=== PATIENT | male | born 1955 | race Caucasian/White ===

== ENCOUNTER 2017-12-03 20:33 | Emergency (ER) | payer MEDICARE ==
[2017-12-03 20:42] VITALS: BP 164/76; PULSE 58; RESP 16; TEMP 97.4
[2017-12-03] MEDS ORDERED: LIDOCAINE/EPINEPHR/TETRACAINE 5 ML BOTTLE TOPICAL ONE (20:44)
[2017-12-03] MEDS ORDERED: OXYMETAZOLINE 0.05% NASL SPRAY 1 SPRAY BOTTLE NASAL STA (20:44)
--- NOTE | 2017-12-03 20:50 | ED ---
General Adult HPI - General Chief complaint: ENT Stated complaint: Nose Bleed Time Seen by Provider: 12/03/17 20:43 Source: patient, RN notes reviewed Mode of arrival: ambulatory Limitations: no limitations - History of Present Illness Initial comments: 62 yo male presents to the ER with cc of nosebleed from the left near. States she's had this headache today. He is on Coumadin. He denies any falls traumas or injuries. They were concerned due to the related to that they should be seen. He denies any pain or discomfort. He denies any other symptoms at this time.Patient denies any recent fever, chills, shortness of breath, chest pain, back pain, abdominal pain, nausea vomiting, numbness or tingling, dysuria or hematuria, constipation or diarrhea, headaches or visual changes, or any other current symptoms. - Related Data Home Medications Medication Instructions Recorded Confirmed Aspirin 81 mg PO DAILY 08/18/14 08/15/16 Insulin Aspart [NovoLOG See Protocol SQ TID 08/18/14 08/15/16 (formulary)] Insulin Detemir [Levemir] 15 unit SQ HS 08/18/14 08/15/16 Montelukast [Singulair] 10 mg PO HS 08/18/14 08/15/16 Omeprazole [PriLOSEC] 20 mg PO AC-BRKFST 08/18/14 08/15/16 Pravastatin Sodium [Pravachol] 20 mg PO HS 08/18/14 08/15/16 Warfarin [Coumadin] 5 mg PO Q48H 08/18/14 08/15/16 cloNIDine [Catapres-TTS] 1 patch TRANSDERM MO 02/05/15 08/15/16 Fluticasone Nasal [place] [Flonase 1 - 2 spray EA NOSTRIL BID PRN 05/12/16 Nasal [place]] Loratadine [Claritin] 10 mg PO DAILY 05/12/16 08/15/16 hydrALAZINE HCL [Apresoline] 50 mg PO TID 05/12/16 08/15/16 amLODIPine [Norvasc] 10 mg PO DAILY 05/30/16 08/15/16 Calcium/Magnesium/Zinc 1 tab PO DAILY 08/15/16 08/15/16 [Ksmktdq-Koqeuahjn-Ihyh Tablet] Warfarin [Coumadin] 7.5 mg PO Q48H 08/15/16 08/15/16 Previous Rx's Medication Instructions Recorded Losartan [Cozaar] 150 mg PO HS tab 05/13/16 Multivitamins, Thera [Multivitamin 1 tab PO DAILY #30 tablet 05/13/16 (formulary)] Sotalol HCl [Sotalol] 160 mg PO BID #0 05/13/16 Allergies Allergy/AdvReac Type Severity Reaction Status Date / Time cephalexin monohydrate Allergy Rash/Hives Verified 08/15/16 16:21 [From Keflex] clindamycin Allergy Rash/Hives Verified 08/15/16 16:21 gluten Allergy Unknown Verified 08/15/16 16:21 Penicillins Allergy Unknown Verified 08/15/16 16:21 Childhood sulfamethoxazole Allergy Anaphylaxis Verified 08/15/16 16:21 [From Bactrim] trimethoprim [From Bactrim] Allergy Anaphylaxis Verified 08/15/16 16:21 Review of Systems ROS Statement: Those systems with pertinent positive or pertinent negative responses have been documented in the HPI. ROS Other: All systems not noted in ROS Statement are negative. Past Medical History Past Medical History: Atrial Fibrillation, Diabetes Mellitus, GERD/Reflux, Hyperlipidemia, Hypertension, Skin Disorder Additional Past Medical History / Comment(s): HAS SKIN RASH, ITCHING -celiac disease, past asbestos exposure History of Any Multi-Drug Resistant Organisms: None Reported Past Surgical History: Cholecystectomy, Heart Catheterization With Stent Additional Past Surgical History / Comment(s): 2 STENTS, cataracts Past Anesthesia/Blood Transfusion Reactions: No Reported Reaction Date of Last Stent Placement:: 2010 Past Psychological History: No Psychological Hx Reported Smoking Status: Current every day smoker Past Alcohol Use History: Occasional Past Drug Use History: None Reported - Past Family History Mother Family Medical History: Diabetes Mellitus Father Family Medical History: Myocardial Infarction ([place]) Brother(s) Family Medical History: Myocardial Infarction ([place]) General Exam Limitations: no limitations General appearance: alert, in no apparent distress ENT exam: Present: normal exam, mucous membranes moist, other (bleeding from left nare) Neck exam: Present: normal inspection. Absent: tenderness, meningismus, lymphadenopathy Respiratory exam: Present: normal lung sounds bilaterally. Absent: respiratory distress, wheezes, rales, rhonchi, stridor Cardiovascular Exam: Present: regular rate, normal rhythm, normal heart sounds. Absent: systolic murmur, diastolic murmur, rubs, gallop, clicks Neurological exam: Present: alert, oriented X3 Psychiatric exam: Present: normal affect, normal mood Skin exam: Present: warm, dry, intact, normal color. Absent: rash Course Vital Signs 12/03/17 20:39 Temperature 97.4 F L Pulse Rate 58 L Respiratory 16 Rate Blood Pressure 164/76 O2 Sat by Pulse 97 Oximetry Medical Decision Making - Medical Decision Making 62-year-old male presents emergency department with a chief complaint of epistaxis from the left nare. At this time patient underwent packing with left on a cotton ball. Patient's bleeding stopped it was cauterized with silver nitrate. This time bleeding has subsided. We did discuss the elevated Coumadin level follow-up with his doctor for continued evaluation of this. We discussed return parameters all questions. Patient stated that he understood he is agreement this plan. EVIDENCE. He'll be discharged. - Lab Data Result diagrams: 12/03/17 20:50 Lab Results 12/03/17 12/03/17 Range/Units 20:50 20:50 WBC 9.6 (3.8-10.6) k/uL RBC 4.41 (4.30-5.90) m/uL Hgb 13.4 (13.0-17.5) gm/dL Hct 41.9 (39.0-53.0) % MCV 95.1 (80.0-100.0) fL MCH 30.4 (25.0-35.0) pg MCHC 32.0 (31.0-37.0) g/dL RDW 14.4 (11.5-15.5) % Plt Count 205 (150-450) k/uL Neutrophils % 71 % Lymphocytes % 17 % Monocytes % 7 % Eosinophils % 3 % Basophils % 1 % Neutrophils # 6.8 (1.3-7.7) k/uL Lymphocytes # 1.6 (1.0-4.8) k/uL Monocytes # 0.6 (0-1.0) k/uL Eosinophils # 0.3 (0-0.7) k/uL Basophils # 0.0 (0-0.2) k/uL PT 38.4 H (9.0-12.0) sec INR 4.3 H (<1.2) Disposition Clinical Impression: Anterior epistaxis, Elevated INR Disposition: HOME SELF-CARE Condition: Stable Instructions: Nosebleed (ED) Additional Instructions: Please use medication as discussed. Please follow up with family doctor if symptoms have not improved over the next two days. Please return to the emergency room if your symptoms increase or worsen or for any other concerns. Please contact your doctor in the morning regarding her next Coumadin dose. Referrals: Ivy Valentine DO [Primary Care Provider] - 1-2 days Time of Disposition: 21:49
[2017-12-03 21:03] LABS: Basophils % (A) 1 %; Eosinophils # (A) 0.3 k/uL (0-0.7); Eosinophils % (A) 3 %; HCT 41.9 % (39.0-53.0); HGB 13.4 gm/dL (13.0-17.5); Lymphocytes # (A) 1.6 k/uL (1.0-4.8); Lymphocytes % (A) 17 %; MCH 30.4 pg (25.0-35.0); MCV 95.1 fL (80.0-100.0); Mean Platelet Volume 8.7; Monocytes # (A) 0.6 k/uL (0-1.0); Monocytes % (A) 7 %; Neutrophils # (A) 6.8 k/uL (1.3-7.7); Neutrophils % (A) 71 %; Platelet Count 205 k/uL (150-450); RBC 4.41 m/uL (4.30-5.90); RDW 14.4 % (11.5-15.5); WBC 9.6 k/uL (3.8-10.6)
[2017-12-03 21:09] LABS: INR 4.3 (<1.2); Prothrombin Time 38.4 sec (9.0-12.0)
== END 2017-12-03 22:06 | disposition home or self-care (01) ==
LOC: EC 20:33
DX: R04.0 Epistaxis (principal); R79.1 Abnormal coagulation profile; I48.91 Unspecified atrial fibrillation; E11.9 Type 2 diabetes mellitus without complications; K21.9 Gastro-esophageal reflux disease without esophagitis; E78.5 Hyperlipidemia, unspecified; I10 Essential (primary) hypertension; F17.200 Nicotine dependence, unspecified, uncomplicated; Z88.0 Allergy status to penicillin; Z88.1 Allergy status to other antibiotic agents; Z88.2 Allergy status to sulfonamides; Z88.8 Allergy status to other drugs, medicaments and biological substances; Z79.82 Long term (current) use of aspirin; Z79.01 Long term (current) use of anticoagulants; Z79.4 Long term (current) use of insulin; Z79.899 Other long term (current) drug therapy
CPT/HCPCS: 30901; 36415; 85025; 85610; 99283

== ENCOUNTER 2017-12-06 06:51 | Emergency (ER) | payer MEDICARE ==
--- NOTE | 2017-12-06 07:18 | ED ---
Chest Pain HPI - General Chief Complaint: Chest Pain Stated Complaint: chest pain Time Seen by Provider: 12/06/17 07:09 Source: patient, EMS Mode of arrival: EMS Limitations: no limitations - History of Present Illness Initial Comments: Patient states that he woke up at 2:30 this morning to use the restroom. At that time he felt some tightness in his neck and jaw. He checked his blood pressure and found to be elevated. He took an extra doses medication. He went back to sleep. He woke up again this morning, with the same symptoms. He found his blood pressure to be elevated again. Patient denies any fever, chills , chest pain or pressure. He has no nausea, vomiting, diaphoresis. He has no lightheadedness or dizziness. He has no pain or swelling the legs. He has no palpitations. He is tolerating oral intake. He has no focal weakness or trouble walking. He has no headache. He has no neck stiffness. - Related Data Home Medications Medication Instructions Recorded Confirmed Aspirin 81 mg PO DAILY 08/18/14 12/06/17 Insulin Aspart [NovoLOG See Protocol SQ TID 08/18/14 12/06/17 (formulary)] Insulin Detemir [Levemir] 26 unit SQ HS 08/18/14 12/06/17 Montelukast [Singulair] 10 mg PO HS 08/18/14 12/06/17 Omeprazole [PriLOSEC] 20 mg PO AC-BRKFST 08/18/14 12/06/17 Warfarin [Coumadin] 5 mg PO DAILY 08/18/14 12/06/17 cloNIDine [Catapres-TTS] 1 patch TRANSDERM [place] 02/05/15 12/06/17 Fluticasone Nasal [place] [Flonase 1 - 2 spray EA NOSTRIL BID PRN 05/12/16 Nasal [place]] Loratadine [Claritin] 10 mg PO DAILY 05/12/16 12/06/17 hydrALAZINE HCL [Apresoline] 50 mg PO TID 05/12/16 12/06/17 amLODIPine [Norvasc] 10 mg PO DAILY 05/30/16 12/06/17 Calcium/Magnesium/Zinc 1 tab PO DAILY 08/15/16 12/06/17 [Bccfhsr-Qrncjlxqe-Gunz Tablet] Betamethasone Dp Aug 0.05% Gel 1 applic TOPICAL DIRECTED 12/06/17 12/06/17 Ipratropium [place] 0.06%Nasal 1 dose NASAL DIRECTED 12/06/17 12/06/17 [Atrovent Nasal 0.06%] Pravastatin Sodium [Pravachol] 40 mg PO HS 12/06/17 12/06/17 Previous Rx's Medication Instructions Recorded Losartan [Cozaar] 150 mg PO HS tab 05/13/16 Multivitamins, Thera [Multivitamin 1 tab PO DAILY #30 tablet 05/13/16 (formulary)] Sotalol HCl [Sotalol] 160 mg PO BID #0 05/13/16 Allergies Allergy/AdvReac Type Severity Reaction Status Date / Time cephalexin monohydrate Allergy Rash/Hives Verified 12/06/17 08:26 [From Keflex] clindamycin Allergy Rash/Hives Verified 12/06/17 08:26 gluten Allergy Unknown Verified 12/06/17 08:26 Penicillins Allergy Rash/Hives Verified 12/06/17 08:26 Sulfa (Sulfonamide Allergy Anaphylaxis Verified 12/06/17 08:26 Antibiotics) sulfamethoxazole Allergy Anaphylaxis Verified 12/06/17 08:26 [From Bactrim] trimethoprim [From Bactrim] Allergy Anaphylaxis Verified 12/06/17 08:26 Review of Systems ROS Statement: Those systems with pertinent positive or pertinent negative responses have been documented in the HPI. ROS Other: All systems not noted in ROS Statement are negative. EKG Findings - EKG Comments: EKG Findings:: Twelve-lead EKG interpreted by me as showing ventricular rate 55 bpm, normal RI interval and QRS complexes, no ST elevation or depression, interpreted by me as sinus rhythm. Past Medical History Past Medical History: Atrial Fibrillation, Diabetes Mellitus, GERD/Reflux, Hyperlipidemia, Hypertension, Skin Disorder Additional Past Medical History / Comment(s): HAS SKIN RASH, ITCHING -celiac disease, past asbestos exposure History of Any Multi-Drug Resistant Organisms: None Reported Past Surgical History: Cholecystectomy, Heart Catheterization With Stent Additional Past Surgical History / Comment(s): 2 STENTS, cataracts Past Anesthesia/Blood Transfusion Reactions: No Reported Reaction Date of Last Stent Placement:: 2010 Past Psychological History: No Psychological Hx Reported Smoking Status: Current every day smoker Past Alcohol Use History: Occasional Past Drug Use History: None Reported - Past Family History Mother Family Medical History: Diabetes Mellitus Father Family Medical History: Myocardial Infarction ([place]) Brother(s) Family Medical History: Myocardial Infarction ([place]) General Exam Limitations: no limitations General appearance: alert, in no apparent distress Head exam: Present: atraumatic, normocephalic, normal inspection Eye exam: Present: normal appearance, PERRL, EOMI. Absent: scleral icterus, conjunctival injection, periorbital swelling ENT exam: Present: normal exam, mucous membranes moist Neck exam: Present: normal inspection. Absent: tenderness, meningismus, lymphadenopathy Respiratory exam: Present: normal lung sounds bilaterally. Absent: respiratory distress, wheezes, rales, rhonchi, stridor Cardiovascular Exam: Present: regular rate, normal rhythm, normal heart sounds. Absent: systolic murmur, diastolic murmur, rubs, gallop, clicks GI/Abdominal exam: Present: soft, normal bowel sounds. Absent: distended, tenderness, guarding, rebound, rigid Extremities exam: Present: normal inspection, full ROM, normal capillary refill. Absent: tenderness, pedal edema, joint swelling, calf tenderness Back exam: Present: normal inspection Neurological exam: Present: alert, oriented X3, CN II-XII intact Psychiatric exam: Present: normal affect, normal mood Skin exam: Present: warm, dry, intact, normal color. Absent: rash Course Vital Signs 12/06/17 12/06/17 06:54 08:01 Temperature 97.7 F Pulse Rate 56 L 50 L Respiratory 18 16 Rate Blood Pressure 173/86 135/74 O2 Sat by Pulse 100 98 Oximetry Chest Pain [facility] Patient complained of elevated blood pressure, tightness in throat and jaw. His symptoms began 7 hours ago. At this time his laboratory studies are all normal including a negative troponin. He has a negative chest x-ray as well. Repeat evaluation reveals completely normal blood pressure. I provided him no blood pressure medication at all, and at this time he has normal vital signs. He has no chest pain or pressure. He has no other findings or complaints. He will follow-up with his physician as an outpatient. I encouraged him to return to the emergency department any time if he has any symptoms, problems, complaints. Disposition Clinical Impression: Hypertension Disposition: HOME SELF-CARE Condition: Good Instructions: Hypertension (ED) Referrals: Ivy Valentine DO [Primary Care Provider] - 1-2 days
[2017-12-06 07:39] LABS: Basophils % (A) 0 %; Eosinophils # (A) 0.2 k/uL (0-0.7); Eosinophils % (A) 3 %; Lymphocytes # (A) 1.1 k/uL (1.0-4.8); Lymphocytes % (A) 12 %; MCHC 31.1 g/dL (31.0-37.0); MCV 96.6 fL (80.0-100.0); Mean Platelet Volume 9.8; Monocytes # (A) 0.7 k/uL (0-1.0); Monocytes % (A) 8 %; Neutrophils # (A) 6.9 k/uL (1.3-7.7); Neutrophils % (A) 77 %; Platelet Count 172 k/uL (150-450); RBC 4.66 m/uL (4.30-5.90); RDW 15.9 % (11.5-15.5)
[2017-12-06 07:43] LABS: INR 2.2 (<1.2); Partial Thromboplastin Time 30.9 sec (22.0-30.0); Prothrombin Time 19.9 sec (9.0-12.0)
--- NOTE | 2017-12-06 07:46 | XR ---
EXAMINATION TYPE: XR chest 2V DATE OF EXAM: 12/06/2017 COMPARISON: May 12, 2016 HISTORY: Shortness of breath TECHNIQUE: Frontal and lateral views of the chest are obtained. FINDINGS: Scattered senescent parenchymal changes noted. Hyperinflation compatible with COPD. No evidence for infiltrate. No evidence for atelectasis. Heart size is stable. Chronic elevation right hemidiaphragm. Mediastinal structures are stable and grossly unremarkable. No evidence for hilar prominence. Degenerative changes dorsal spine. IMPRESSION: 1. No evidence for acute pulmonary disease.
[2017-12-06 07:47] LABS: ALT 51 U/L (21-72); AST 34 U/L (17-59); Albumin 3.6 g/dL (3.5-5.0); Alkaline Phosphatase 105 U/L (38-126); Anion Gap 8 mmol/L; Blood Urea Nitrogen 39 mg/dL (9-20); Calcium 9.1 mg/dL (8.4-10.2); Carbon Dioxide 24 mmol/L (22-30); Chloride 109 mmol/L (98-107); Glucose 99 mg/dL (74-99); Magnesium 1.5 mg/dL (1.6-2.3); Potassium 4.6 mmol/L (3.5-5.1); Sodium 141 mmol/L (137-145); Total Bilirubin 0.6 mg/dL (0.2-1.3); Total Protein 6.4 g/dL (6.3-8.2)
[2017-12-06 08:19] LABS: Appearance,Urine Clear (Clear); Bilirubin,Urine Negative (Negative); Blood,Urine Negative (Negative); Color,Urine Light Yellow; Glucose,Urine (UA) Negative (Negative); Ketones,Urine Negative (Negative); Leukocyte Esterase,Urine Negative (Negative); Mucus,Urine Rare /hpf; Nitrite,Urine Negative (Negative); PH, Urine 6.5 (5.0-8.0); Protein,Urine 1+ (Negative); RBC,Urine 1 /hpf (0-5); Specific Gravity,Urine 1.004 (1.001-1.035); Urobilinogen,Urine <2.0 mg/dL (<2.0)
[2017-12-06 08:20] VITALS: RESP 16
[2017-12-06 09:13] VITALS: BP 153/87; PULSE 59; TEMP 98.6
== END 2017-12-06 09:13 | disposition home or self-care (01) ==
LOC: EC 06:51
DX: I10 Essential (primary) hypertension (principal); E78.5 Hyperlipidemia, unspecified; E11.9 Type 2 diabetes mellitus without complications; K21.9 Gastro-esophageal reflux disease without esophagitis; F17.200 Nicotine dependence, unspecified, uncomplicated; Z79.01 Long term (current) use of anticoagulants; Z79.4 Long term (current) use of insulin; Z79.82 Long term (current) use of aspirin; Z79.899 Other long term (current) drug therapy; Z88.0 Allergy status to penicillin; Z88.1 Allergy status to other antibiotic agents; Z88.2 Allergy status to sulfonamides; Z91.018 Allergy to other foods; Z95.818 Presence of other cardiac implants and grafts; Z82.49 Family history of ischemic heart disease and other diseases of the circulatory system
CPT/HCPCS: 36415; 71046; 80053; 81001; 83735; 83880; 84484; 85025; 85610; 85730; 93005; 99285

== ENCOUNTER 2018-06-04 18:00 | Inpatient (IN) | payer MEDICARE ==
[2018-06-04 18:41] LABS: Basophils % (A) 0 %; Eosinophils # (A) 0.2 k/uL (0-0.7); Eosinophils % (A) 2 %; HCT 41.2 % (39.0-53.0); HGB 13.9 gm/dL (13.0-17.5); Lymphocytes % (A) 11 %; MCH 31.2 pg (25.0-35.0); MCHC 33.6 g/dL (31.0-37.0); MCV 92.8 fL (80.0-100.0); Mean Platelet Volume 7.8; Monocytes # (A) 0.5 k/uL (0-1.0); Monocytes % (A) 5 %; Neutrophils # (A) 7.7 k/uL (1.3-7.7); Neutrophils % (A) 80 %; Platelet Count 201 k/uL (150-450); RBC 4.44 m/uL (4.30-5.90); RDW 14.5 % (11.5-15.5); WBC 9.6 k/uL (3.8-10.6)
[2018-06-04 18:48] LABS: INR 1.6 (<1.2); Partial Thromboplastin Time 29.1 sec (22.0-30.0); Prothrombin Time 14.8 sec (9.0-12.0)
[2018-06-04 18:50] LABS: Albumin 3.5 g/dL (3.5-5.0); Calcium 8.6 mg/dL (8.4-10.2); Potassium 4.3 mmol/L (3.5-5.1); Total Bilirubin 0.5 mg/dL (0.2-1.3); Total Protein 6.1 g/dL (6.3-8.2)
[2018-06-04 19:16] LABS: Troponin I 0.02 ng/mL (0.000-0.034)
[2018-06-04 19:29] LABS: Creatine Kinase MB 3.6 ng/mL (0.0-2.4)
[2018-06-04] MEDS ORDERED: FUROSEMIDE 10 MG/ML 4 ML VIAL IV STA (19:59)
--- NOTE | 2018-06-04 20:00 | ED ---
General Adult HPI - General Chief complaint: Recheck/Abnormal Lab/Rx Stated complaint: chest pain Time Seen by Provider: 06/04/18 19:43 Source: patient, RN notes reviewed, old records reviewed Mode of arrival: ambulatory Limitations: no limitations - History of Present Illness Initial comments: 63-year-old male presents for evaluation of bilateral lower extremity edema, mild dyspnea, and upper abdominal pain and belching. Patient has noted these symptoms over the past one week. His lower extremity edema has worsened over the past several days. Patient has history of CAD status post stenting. Denies any specific chest pain. Describes it more as a fullness in his upper abdomen which is relieved by belching. His had some nausea with no vomiting. No shoulder pain and arm pain or jaw pain. Patient is a current smoker, he smokes approximately one pack per day. He follows with cardiology. Patient also has history of hypertension and kidney disease, follows with nephrology. - Related Data Home Medications Medication Instructions Recorded Confirmed Aspirin 81 mg PO DAILY 08/18/14 06/04/18 Insulin Detemir [Levemir] 26 unit SQ HS 08/18/14 06/04/18 Omeprazole [PriLOSEC] 20 mg PO AC-BRKFST 08/18/14 06/04/18 Warfarin [Coumadin] 5 mg PO DIRECTED 08/18/14 06/04/18 Fluticasone Nasal [place] [Flonase 2 spray EA NOSTRIL BID 05/12/16 06/04/18 Nasal [place]] hydrALAZINE HCL [Apresoline] 75 mg PO TID 05/12/16 06/04/18 amLODIPine [Norvasc] 10 mg PO DAILY 05/30/16 06/04/18 Pravastatin Sodium [Pravachol] 40 mg PO HS 12/06/17 06/04/18 INSULIN LISPRO (humaLOG) [humaLOG] See Protocol SQ AC-TID 06/04/18 06/04/18 Magnesium Oxide 400 mg PO DAILY 06/04/18 06/04/18 Vitamin B Complex 1 cap PO DAILY 06/04/18 06/04/18 Warfarin [Coumadin] 2.5 mg PO DIRECTED 06/04/18 06/04/18 cloNIDine HCL [Catapres] 0.1 mg PO DAILY PRN 06/04/18 06/04/18 Previous Rx's Medication Instructions Recorded Sotalol HCl [Sotalol] 160 mg PO BID #0 05/13/16 Allergies Allergy/AdvReac Type Severity Reaction Status Date / Time cephalexin monohydrate Allergy Rash/Hives Verified 06/04/18 20:02 [From Keflex] clindamycin Allergy Rash/Hives Verified 06/04/18 20:02 gluten Allergy Unknown Verified 06/04/18 20:02 Penicillins Allergy Rash/Hives Verified 06/04/18 20:02 Sulfa (Sulfonamide Allergy Anaphylaxis Verified 06/04/18 20:02 Antibiotics) sulfamethoxazole Allergy Anaphylaxis Verified 06/04/18 20:02 [From Bactrim] trimethoprim [From Bactrim] Allergy Anaphylaxis Verified 06/04/18 20:02 Review of Systems ROS Statement: Those systems with pertinent positive or pertinent negative responses have been documented in the HPI. ROS Other: All systems not noted in ROS Statement are negative. Past Medical History Past Medical History: Atrial Fibrillation, Diabetes Mellitus, GERD/Reflux, Hyperlipidemia, Hypertension, Skin Disorder Additional Past Medical History / Comment(s): HAS SKIN RASH, ITCHING -celiac disease, past asbestos exposure History of Any Multi-Drug Resistant Organisms: None Reported Past Surgical History: Cholecystectomy, Heart Catheterization With Stent Additional Past Surgical History / Comment(s): 2 STENTS, cataracts Past Anesthesia/Blood Transfusion Reactions: No Reported Reaction Date of Last Stent Placement:: 2010 Past Psychological History: No Psychological Hx Reported Smoking Status: Current every day smoker Past Alcohol Use History: Occasional Past Drug Use History: None Reported - Past Family History Mother Family Medical History: Diabetes Mellitus Father Family Medical History: Myocardial Infarction ([place]) Brother(s) Family Medical History: Myocardial Infarction ([place]) General Exam Limitations: no limitations General appearance: alert, in no apparent distress Head exam: Present: atraumatic, normocephalic Eye exam: Present: normal appearance, PERRL ENT exam: Present: normal exam Neck exam: Present: normal inspection. Absent: tenderness, meningismus Respiratory exam: Present: normal lung sounds bilaterally. Absent: respiratory distress, wheezes Cardiovascular Exam: Present: regular rate, normal rhythm GI/Abdominal exam: Present: soft. Absent: distended, tenderness Extremities exam: Present: pedal edema Neurological exam: Present: alert, oriented X3 Psychiatric exam: Present: normal affect, normal mood Skin exam: Present: warm, dry, intact. Absent: cyanosis, diaphoretic Course Vital Signs 06/04/18 06/04/18 06/04/18 19:17 19:49 20:16 Temperature 98.3 F Pulse Rate 68 63 64 Respiratory 18 18 18 Rate Blood Pressure 182/78 193/91 194/98 O2 Sat by Pulse 96 97 97 Oximetry EKG Findings - EKG Comments: EKG Findings:: EKG: Normal sinus rhythm, ST segment depression in V6 as well as inferior leads, no ST segment elevation prolonged QT at 495, ventricular rate of 68, VT interval 144, QRS duration 92 Medical Decision Making - Medical Decision Making 63-year-old male with 10 days of lower extremity swelling, elevated blood pressures, and upper abdominal pain and belching. No significant chest pain in the time my evaluation. EKG does show some ST segment depression no ST segment elevation. Chest x-ray is clear, INR is subtherapeutic at 1.6. Creatinine of 1.44 which is baseline for this patient. Mild troponin elevation of 0.02 and elevation in BNP 2640. Patient will be admitted for cardiology consultation. He is started on heparin, Lasix for IV diuresis, and nitroglycerin. - Lab Data Result diagrams: 06/04/18 18:27 06/04/18 18:27 Lab Results 06/04/18 06/04/18 06/04/18 Range/Units 18:27 18:27 18:27 WBC 9.6 (3.8-10.6) k/uL RBC 4.44 (4.30-5.90) m/uL Hgb 13.9 (13.0-17.5) gm/dL Hct 41.2 (39.0-53.0) % MCV 92.8 (80.0-100.0) fL MCH 31.2 (25.0-35.0) pg MCHC 33.6 (31.0-37.0) g/dL RDW 14.5 (11.5-15.5) % Plt Count 201 (150-450) k/uL Neutrophils % 80 % Lymphocytes % 11 % Monocytes % 5 % Eosinophils % 2 % Basophils % 0 % Neutrophils # 7.7 (1.3-7.7) k/uL Lymphocytes # 1.0 (1.0-4.8) k/uL Monocytes # 0.5 (0-1.0) k/uL Eosinophils # 0.2 (0-0.7) k/uL Basophils # 0.0 (0-0.2) k/uL PT (9.0-12.0) sec INR (<1.2) APTT (22.0-30.0) sec Sodium 140 (137-145) mmol/L Potassium 4.3 (3.5-5.1) mmol/L Chloride 99 (98-107) mmol/L Carbon Dioxide 29 (22-30) mmol/L Anion Gap 12 mmol/L BUN 28 H (9-20) mg/dL Creatinine 1.44 H (0.66-1.25) mg/dL Est GFR (CKD-EPI)AfAm 59 (>60 ml/min/1.73 sqM) Est GFR (CKD-EPI)NonAf 51 (>60 ml/min/1.73 sqM) Glucose 102 H (74-99) mg/dL Calcium 8.6 (8.4-10.2) mg/dL Total Bilirubin 0.5 (0.2-1.3) mg/dL AST 40 (17-59) U/L ALT 50 (21-72) U/L Alkaline Phosphatase 108 (38-126) U/L Total Creatine Kinase 153 (55-170) U/L CK-MB (CK-2) 3.6 H* (0.0-2.4) ng/mL CK-MB (CK-2) Rel Index 2.4 Troponin I 0.020 (0.000-0.034) ng/mL NT-Pro-B Natriuret Pep pg/mL Total Protein 6.1 L (6.3-8.2) g/dL Albumin 3.5 (3.5-5.0) g/dL 06/04/18 06/04/18 Range/Units 18:27 18:27 WBC (3.8-10.6) k/uL RBC (4.30-5.90) m/uL Hgb (13.0-17.5) gm/dL Hct (39.0-53.0) % MCV (80.0-100.0) fL MCH (25.0-35.0) pg MCHC (31.0-37.0) g/dL RDW (11.5-15.5) % Plt Count (150-450) k/uL Neutrophils % % Lymphocytes % % Monocytes % % Eosinophils % % Basophils % % Neutrophils # (1.3-7.7) k/uL Lymphocytes # (1.0-4.8) k/uL Monocytes # (0-1.0) k/uL Eosinophils # (0-0.7) k/uL Basophils # (0-0.2) k/uL PT 14.8 H (9.0-12.0) sec INR 1.6 H (<1.2) APTT 29.1 (22.0-30.0) sec Sodium (137-145) mmol/L Potassium (3.5-5.1) mmol/L Chloride (98-107) mmol/L Carbon Dioxide (22-30) mmol/L Anion Gap mmol/L BUN (9-20) mg/dL Creatinine (0.66-1.25) mg/dL Est GFR (CKD-EPI)AfAm (>60 ml/min/1.73 sqM) Est GFR (CKD-EPI)NonAf (>60 ml/min/1.73 sqM) Glucose (74-99) mg/dL Calcium (8.4-10.2) mg/dL Total Bilirubin (0.2-1.3) mg/dL AST (17-59) U/L ALT (21-72) U/L Alkaline Phosphatase (38-126) U/L Total Creatine Kinase (55-170) U/L CK-MB (CK-2) (0.0-2.4) ng/mL CK-MB (CK-2) Rel Index Troponin I (0.000-0.034) ng/mL NT-Pro-B Natriuret Pep 2640 pg/mL Total Protein (6.3-8.2) g/dL Albumin (3.5-5.0) g/dL Disposition Clinical Impression: Unstable angina pectoris, Hypertension, Renal insufficiency Disposition: ADMITTED IP TO THIS [facility] Condition: Stable Is patient prescribed a controlled substance at d/c from ED?: No Referrals: Ivy Valentine DO [Primary Care Provider] - 1-2 days Decision to Admit Reason: Admit from EC Decision Date: 06/04/18 Decision Time: 20:20
--- NOTE | 2018-06-04 20:14 | XR ---
EXAMINATION TYPE: XR chest 2V DATE OF EXAM: 06/04/2018 COMPARISON: 12/06/2017 HISTORY: Abdominal pain. Chest pressure TECHNIQUE: Frontal and lateral views of the chest are obtained. FINDINGS: There is no heart failure nor confluent pneumonic infiltrate. Costophrenic angles are oni r. There are chest leads. Bony thorax is intact. IMPRESSION: No active cardiopulmonary disease. No change.
--- NOTE | 2018-06-04 20:15 | XR ---
EXAMINATION TYPE: XR KUB DATE OF EXAM: 06/04/2018 COMPARISON: NONE HISTORY: Abdominal pain TECHNIQUE: 2 upright views FINDINGS: There is no sign of intestinal obstruction or pneumoperitoneum. Fecal pattern is normal. Th ere are clips from cholecystectomy. There is no evidence of a mass. There are no pathologic calcifica tions over the kidneys. Lung bases are clear. IMPRESSION: Nonacute abdomen.
[2018-06-04] MEDS ORDERED: HEPARIN SODIUM,PORCINE 5,000 UNIT/ML 1 ML VIAL IV PRN (21:21)
[2018-06-04] MEDS ORDERED: NITROGLYCERIN-D5W PMX 50 MG in DEXTROSE/WATER 1 250ML.BAG IV ONE (21:22)
[2018-06-04] MEDS ORDERED: cloNIDine HCL 0.1 MG TAB PO PRN (21:27)
[2018-06-04] MEDS: HEPARIN SOD,PORK IN 0.45% NACL 25,000 UNIT in 0.45% NACL 1 500ML.BAG IV SCH (21:41)
[2018-06-04] MEDS ORDERED: NALOXONE 0.4 MG/ML 1 ML VIAL IV PRN (21:46)
[2018-06-04] MEDS ORDERED: MORPHINE SULFATE 2 MG/ML SYRINGE IV PRN (21:46)
[2018-06-04 23:02] VITALS: BMI 27.6
[2018-06-04 23:17] LABS: Glucose,Whole Blood 201 mg/dL (75-99)
[2018-06-04] MEDS: INSULIN DETEMIR 100 UNIT/ML 10 ML VIAL SQ SCH (23:40)
[2018-06-05] MEDS: FLUTICASONE 50MCG/SPRAY NASAL 16GM EA NOSTRIL SCH ×2 (00:58→08:27)
[2018-06-05 00:59] LABS: Troponin I 0.027 ng/mL (0.000-0.034)
[2018-06-05] MEDS: hydrALAZINE HCL 25 MG TAB PO SCH ×2 (00:59→08:27)
[2018-06-05 01:03] LABS: Creatine Kinase MB 3.3 ng/mL (0.0-2.4)
[2018-06-05 05:54] LABS: Glucose,Whole Blood 136 mg/dL (75-99)
[2018-06-05] MEDS: INSULIN ASPART 100 UNIT/ML 1 ML 10 ML VIAL SQ SCH ×4 (06:03→20:47)
[2018-06-05 06:45] LABS: Basophils % (A) 1 %; Eosinophils # (A) 0.2 k/uL (0-0.7); Eosinophils % (A) 2 %; HCT 39.8 % (39.0-53.0); HGB 13.2 gm/dL (13.0-17.5); Lymphocytes % (A) 13 %; MCH 31.5 pg (25.0-35.0); MCHC 33.2 g/dL (31.0-37.0); MCV 94.8 fL (80.0-100.0); Mean Platelet Volume 8.1; Monocytes # (A) 0.5 k/uL (0-1.0); Monocytes % (A) 7 %; Neutrophils # (A) 5.4 k/uL (1.3-7.7); Neutrophils % (A) 75 %; Platelet Count 194 k/uL (150-450); RDW 14.8 % (11.5-15.5); WBC 7.2 k/uL (3.8-10.6)
[2018-06-05 07:28] LABS: Creatine Kinase MB 2.3 ng/mL (0.0-2.4); Troponin I 0.03 ng/mL (0.000-0.034)
[2018-06-05] MEDS: SOTALOL 80 MG TAB PO SCH ×2 (08:27→21:29)
[2018-06-05] MEDS: FUROSEMIDE 10 MG/ML 4 ML VIAL IV SCH ×2 (08:28→20:49)
[2018-06-05] MEDS ORDERED: ASPIRIN 81 MG PO SCH (09:00)
--- NOTE | 2018-06-05 10:01 | P.CRDCN ---
History of Present Illness Consult date: 06/05/18 Requesting physician: Lilibeth Urias Consult reason: congestive heart failure Chief complaint: Worsening bilateral lower extremity edema and mild shortness of breath History of present illness: This is a 63-year-old gentleman who follows with Dr. Morgan in the office. He has known history of hypertension, diabetes, hyperlipidemia, renal insufficiency, coronary artery disease with a prior stenting of the proximal diuretic in 2010 and distal circumflex in 2011, family history of premature coronary artery disease, nicotine dependence, paroxysmal atrial fibrillation on Coumadin for anticoagulation. He presents to the hospital with symptoms of progressively worsening peripheral edema. He states that yesterday he also noticed significant shortness of breath. Patient states he's felt extremely bloated as well. He denies any chest discomfort. Chest x-ray on admission did not reveal any active cardiopulmonary disease. KUB was performed which revealed a nonacute abdomen. EKG shows a normal sinus rhythm with no acute changes. White blood cell count 7.2, hemoglobin 13.2, platelet count 194. INR subtherapeutic at 1.6. Sodium 140, potassium 4.3, BUN 28, creatinine 1.4. BNP level 2640. Troponin 0.02, 0.02, 0.03. Liver enzymes normal. Patient was initiated on IV Lasix in the emergency room, diuresed well through the night last night. Blood pressure on arrival 182/78, heart rate in the 60s, 96% on room air. Let pressure this morning 158/78 with a heart rate in the 60s, 93% on room air. At the time of my examination this morning, patient states his breathing is overall stable, denies any chest discomfort or abdominal bloating this morning. He still has some peripheral edema in his lower extremities. Patient does state that since his sap portal developer started him on Norvasc he has noticed a worsening in his lower extremity edema. Most recent echo performed in the office in February revealed an ejection fraction of 55% with mild to moderate MR and mild TR. Past Medical History Past Medical History: Atrial Fibrillation, Diabetes Mellitus, GERD/Reflux, Hyperlipidemia, Hypertension, Skin Disorder Additional Past Medical History / Comment(s): HAS SKIN RASH, ITCHING -celiac disease, past asbestos exposure History of Any Multi-Drug Resistant Organisms: None Reported Past Surgical History: Cholecystectomy, Heart Catheterization With Stent, Tonsillectomy Additional Past Surgical History / Comment(s): 2 STENTS, cataracts Past Anesthesia/Blood Transfusion Reactions: No Reported Reaction Date of Last Stent Placement:: 2010 Past Psychological History: No Psychological Hx Reported Additional Psychological History / Comment(s): lives at home with his , worked for [employer], no service. pt is independant,no cane or walker and no outside services. Smoking Status: Current every day smoker Past Alcohol Use History: None Reported Additional Past Alcohol Use History / Comment(s): patient stated smoking about 1 pack per day, started 40 years ago. and does not drink alcohol anymore. Past Drug Use History: None Reported - Past Family History Mother Family Medical History: Diabetes Mellitus Father Family Medical History: Myocardial Infarction ([place]) Brother(s) Family Medical History: Myocardial Infarction ([place]) Medications and Allergies Home Medications Medication Instructions Recorded Confirmed Type Aspirin 81 mg PO DAILY 08/18/14 06/04/18 History Insulin Detemir [Levemir] 26 unit SQ HS 08/18/14 06/04/18 History Omeprazole [PriLOSEC] 20 mg PO AC-BRKFST 08/18/14 06/04/18 History Warfarin [Coumadin] 5 mg PO DIRECTED 08/18/14 06/04/18 History Fluticasone Nasal [place] [Flonase 2 spray EA NOSTRIL BID 05/12/16 06/04/18 History Nasal [place]] hydrALAZINE HCL [Apresoline] 75 mg PO TID 05/12/16 06/04/18 History Sotalol HCl [Sotalol] 160 mg PO BID #0 05/13/16 06/04/18 Rx amLODIPine [Norvasc] 10 mg PO DAILY 05/30/16 06/04/18 History Pravastatin Sodium [Pravachol] 40 mg PO HS 12/06/17 06/04/18 History INSULIN LISPRO (humaLOG) [humaLOG] See Protocol SQ AC-TID 06/04/18 06/04/18 History Magnesium Oxide 400 mg PO DAILY 06/04/18 06/04/18 History Vitamin B Complex 1 cap PO DAILY 06/04/18 06/04/18 History Warfarin [Coumadin] 2.5 mg PO DIRECTED 06/04/18 06/04/18 History cloNIDine HCL [Catapres] 0.1 mg PO DAILY PRN 06/04/18 06/04/18 History Allergies Allergy/AdvReac Type Severity Reaction Status Date / Time cephalexin monohydrate Allergy Rash/Hives Verified 06/04/18 20:02 [From Keflex] clindamycin Allergy Rash/Hives Verified 06/04/18 20:02 gluten Allergy Unknown Verified 06/04/18 20:02 Penicillins Allergy Rash/Hives Verified 06/04/18 20:02 Sulfa (Sulfonamide Allergy Anaphylaxis Verified 06/04/18 20:02 Antibiotics) sulfamethoxazole Allergy Anaphylaxis Verified 06/04/18 20:02 [From Bactrim] trimethoprim [From Bactrim] Allergy Anaphylaxis Verified 06/04/18 20:02 Physical Exam Vitals: Vital Signs Temp Pulse Pulse Resp BP BP Pulse Ox 06/05/18 05:00 65 18 158/78 93 L 06/05/18 00:45 155/74 06/04/18 22:34 97.0 F L 68 18 153/80 95 06/04/18 22:26 157/87 06/04/18 22:08 98.9 F 65 18 174/84 96 06/04/18 21:50 94 18 200/96 97 06/04/18 20:16 64 18 194/98 97 06/04/18 19:49 63 18 193/91 97 06/04/18 19:17 98.3 F 68 18 182/78 96 Intake and Output 06/04/18 06/05/18 06/05/18 22:59 06:59 14:59 Intake Total 0.325 71.702 Balance 0.325 71.702 Intake: Intake, IV Titration 0.325 71.702 Amount Heparin Sod,Pork in 0.45% 71.702 NaCl 25,000 unit In 0.45 % NaCl 1 500ml.bag @ 11.6 UNITS/KG/HR 20.01 mls/hr IV .Q24H [facility] Rx#: [id number] Nitroglycerin-D5w Pmx 50 0.325 mg In Dextrose/Water 1 250ml.bag @ 5 MCG/MIN 1.5 mls/hr IV .Q24H [facility] Rx#: [id number] Other: Voiding Method Toilet # Voids 2 2 Weight 84.822 kg 84.8 kg PHYSICAL EXAMINATION: GENERAL: 63-year-old gentleman in no acute distress at the time of my examination HEENT: Head is atraumatic, normocephalic. Pupils equal, round. Sclera anicteric. Conjunctiva are clear. Mucous membranes of the mouth are moist. Neck is supple. There is no elevated jugular venous pressure. No carotid bruit is heard. HEART EXAMINATION: Heart S1, S2 normal. No murmur or gallop heard. CHEST EXAMINATION: Lungs reveal scattered rhonchi throughout . No chest wall tenderness is noted on palpation or with deep breathing. ABDOMEN: Soft, nontender. Bowel sounds are heard. No organomegaly noted. EXTREMITIES: 2+ peripheral pulses with 1+ evidence of peripheral edema, right leg greater than left. NEUROLOGIC patient is awake, alert and oriented OX-3. . Results 06/05/18 06:20 06/04/18 18:27 Cardiac Enzymes 06/04/18 06/04/18 06/05/18 Range/Units 18:27 18:27 00:18 AST 40 (17-59) U/L CK-MB (CK-2) 3.6 H* 3.3 H* (0.0-2.4) ng/mL Troponin I 0.020 0.027 (0.000-0.034) ng/mL 06/05/18 Range/Units 06:20 AST (17-59) U/L CK-MB (CK-2) 2.3 (0.0-2.4) ng/mL Troponin I 0.030 (0.000-0.034) ng/mL Coagulation 06/04/18 06/05/18 06/05/18 Range/Units 18: 00:18 06:20 PT 14.8 H (9.0-12.0) sec APTT 29.1 33.9 H 46.6 H (22.0-30.0) sec CBC 06/04/18 06/05/18 Range/Units 18:27 06:20 WBC 9.6 7.2 (3.8-10.6) k/uL RBC 4.44 4.20 L (4.30-5.90) m/uL Hgb 13.9 13.2 (13.0-17.5) gm/dL Hct 41.2 39.8 (39.0-53.0) % Plt Count 201 194 (150-450) k/uL Comprehensive Metabolic Panel 07/09/18 Range/Units 18:27 Sodium 140 (137-145) mmol/L Potassium 4.3 (3.5-5.1) mmol/L Chloride 99 (98-107) mmol/L Carbon Dioxide 29 (22-30) mmol/L BUN 28 H (9-20) mg/dL Creatinine 1.44 H (0.66-1.25) mg/dL Glucose 102 H (74-99) mg/dL Calcium 8.6 (8.4-10.2) mg/dL AST 40 (17-59) U/L ALT 50 (21-72) U/L Alkaline Phosphatase 108 (38-126) U/L Total Protein 6.1 L (6.3-8.2) g/dL Albumin 3.5 (3.5-5.0) g/dL Current Medications Generic Name Dose Route Start Last Admin Trade Name Freq PRN Reason Stop Dose Admin Aspirin 81 mg 06/05/18 21:00 Aspirin PO HS ALONZO Clonidine 0.1 mg 06/04/18 21:27 Catapres PO DAILY PRN Blood Pressure - High Fluticasone Propionate 2 spray 06/04/18 23:57 06/05/18 08:27 Flonase Nasal [place] EA NOSTRIL 2 spray DAILY ALONZO Administration Furosemide 40 mg 06/05/18 09:00 06/05/18 08:28 Lasix IV 40 mg Q12HR ALONZO Administration Heparin Sodium (Porcine) 0 unit 06/04/18 21:21 Heparin IV PER PROTOCOL PRN Low PTT Protocol Hydralazine HCl 75 mg 06/04/18 22:00 06/05/18 08:27 Apresoline PO 75 mg TID ALONZO Administration Heparin Sodium/Sodium Chloride 500 mls @ 20.01 mls/hr 06/04/18 21:30 01:16 25,000 unit/ Sodium Chloride IV 14.6 units/kg/hr .Q24H ALONZO 25.19 mls/hr Titration Protocol 11.6 UNITS/KG/HR Nitroglycerin/Dextrose 50 mg/ 250 mls @ 1.5 mls/hr 06/04/18 21:22 06/04/18 22 :08 IV Solution IV 06/05/18 21:21 10 mcg/min .Q24H [facility] 3 mls/hr Titration Protocol 5 MCG/MIN Insulin Aspart 0 unit 06/05/18 07:30 06/05/18 06:03 Novolog SQ Not Given ACHS [facility] Protocol Insulin Detemir 26 unit 06/04/18 23:06 06/04/18 23:40 Levemir SQ 20 unit HS ALONZO Administration Morphine Sulfate 4 mg 06/04/18 21:46 Morphine Sulfate (Inj) IV Q4HR PRN Severe Pain Naloxone HCl 0.2 mg 06/04/18 21:46 Narcan IV Q2M PRN Opioid Reversal Pravastatin Sodium 40 mg 06/05/18 21:00 Pravachol PO HS ALONZO Sotalol HCl 160 mg 06/05/18 09:00 06/05/18 08:27 Betapace PO 160 mg BID ALONZO Administration Intake and Output 06/04/18 06/05/18 06/05/18 22:59 06:59 14:59 Intake Total 0.325 71.702 Balance 0.325 71.702 Intake: Intake, IV Titration 0.325 71.702 Amount Heparin Sod,Pork in 0.45% 71.702 NaCl 25,000 unit In 0.45 % NaCl 1 500ml.bag @ 11.6 UNITS/KG/HR 20.01 mls/hr IV .Q24H [facility] Rx#: [id number] Nitroglycerin-D5w Pmx 50 0.325 mg In Dextrose/Water 1 250ml.bag @ 5 MCG/MIN 1.5 mls/hr IV .Q24H [facility] Rx#: [id number] Other: Voiding Method Toilet # Voids 2 2 Weight 84.822 kg 84.8 kg 06/05/18 06:20 06/04/18 18:27 EKG Interpretations (text) EKG shows a normal sinus rhythm with no acute changes. Assessment and Plan Plan: Assessment and plan #1 diastolic congestive heart failure acute on chronic #2 known history of coronary artery disease with prior stent placements #3 hypertension, accelerated #4 diabetes #5 hyperlipidemia #6 nicotine dependence #7 chronic kidney disease #8 paroxysmal atrial fibrillation, on Coumadin for anticoagulation, subtherapeutic INR of 1.6 Plan Patient recently had an echocardiogram with Doppler study performed in the office in February of this year which revealed an ejection fraction of 55%. Mild to moderate MR and mild TR, we will not repeat an echo on this admission. We will continue the IV heparin to maintain an INR in the range of 2-2.5. Continue current dose of IV Lasix. Discontinue IV nitroglycerin drip and start the patient on Imdur 30 mg daily.. We will also add nadolol to his medication regime for more optimal blood pressure control. Patient is not on her arm because of his renal function. Discontinue when necessary Catapres. Once the patient's heart failure clears, if he continues to have peripheral edema we may consider discontinuing the Norvasc. Further recommendations to follow. DNP note has been reviewed, I agree with a documented findings and plan of care. Patient was seen and examined.
[2018-06-05] MEDS ORDERED: NADOLOL 20 MG TAB PO SCH (10:15)
[2018-06-05 11:44] LABS: Glucose,Whole Blood 126 mg/dL (75-99)
--- NOTE | 2018-06-05 12:23 | P.HPIM ---
History of Present Illness H&P Date: 06/05/18 Chief Complaint: Upper abdominal discomfort and leg swelling Patient is a 63-year-old male with a known history of atrial fibrillation on anticoagulation with Coumadin, hypertension, hyperlipidemia and chronic kidney disease stage III as well as coronary artery disease status post and placement, family history of coronary artery disease and currently everyday smoker came to ER with complaints of upper abdominal bloating and belching and fullness along with worsening lower extremities swelling for the past few days. Patient also complaining of shortness of breath started since yesterday along with chest discomfort which made him come to the hospital. Patient says that his feeling fullness in his upper abdomen. patient does have some nausea. No vomiting. No radiation of the pain. No fever no chills. No cough or sputum production. Patient does take Prilosec at home. Patient had EGD and colonoscopy done about 5 years ago. Patient follows with cardiology and nephrology as an outpatient. EKG showed sinus rhythm KUB x-ray showed normal bowel gas pattern. No acute abdominal Chest x-ray showed no acute cardiopulmonary disease. No change Troponin 3 negative Most recent echocardiogram was done in February showed his ejection fraction 55% with mild to moderate MR and mild TR. BNP 2640 Review of Systems Constitutional: Patient denies any fever or chills . No generalized weakness or weight loss. Abdomen: Patient does have nausea and abdominal bloating. Upper. No pain. No diarrhea.. Cardiovascular: Patient does have chest tightness and shortness of breath along with leg swelling. No palpitations Respiratory: patient denied any cough is from production. Patient does have shortness of breath Neurologic: Patient denied any numbness or tingling headache. Musculoskeletal: Patient denies any complaints of joint swelling or deformity. Skin: Negative Psychiatric: Negative Endocrine: No heat or cold intolerance. No recent weight gain. Genitourinary: No dysuria or hematuria. All other 14 point ROS negative except the above Past Medical History Past Medical History: Atrial Fibrillation, Diabetes Mellitus, GERD/Reflux, Hyperlipidemia, Hypertension, Skin Disorder Additional Past Medical History / Comment(s): HAS SKIN RASH, ITCHING -celiac disease, past asbestos exposure History of Any Multi-Drug Resistant Organisms: None Reported Past Surgical History: Cholecystectomy, Heart Catheterization With Stent, Tonsillectomy Additional Past Surgical History / Comment(s): 2 STENTS, cataracts Past Anesthesia/Blood Transfusion Reactions: No Reported Reaction Date of Last Stent Placement:: 2010 Past Psychological History: No Psychological Hx Reported Additional Psychological History / Comment(s): lives at home with his , worked for [employer], no service. pt is independant,no cane or walker and no outside services. Smoking Status: Current every day smoker Past Alcohol Use History: None Reported Additional Past Alcohol Use History / Comment(s): patient stated smoking about 1 pack per day, started 40 years ago. and does not drink alcohol anymore. Past Drug Use History: None Reported - Past Family History Mother Family Medical History: Diabetes Mellitus Father Family Medical History: Myocardial Infarction ([place]) Brother(s) Family Medical History: Myocardial Infarction ([place]) Medications and Allergies Home Medications Medication Instructions Recorded Confirmed Type Aspirin 81 mg PO DAILY 08/18/14 06/04/18 History Insulin Detemir [Levemir] 26 unit SQ HS 08/18/14 06/04/18 History Omeprazole [PriLOSEC] 20 mg PO AC-BRKFST 08/18/14 06/04/18 History Warfarin [Coumadin] 5 mg PO DIRECTED 08/18/14 06/04/18 History Fluticasone Nasal [place] [Flonase 2 spray EA NOSTRIL BID 05/12/16 06/04/18 History Nasal [place]] hydrALAZINE HCL [Apresoline] 75 mg PO TID 05/12/16 06/04/18 History Sotalol HCl [Sotalol] 160 mg PO BID #0 05/13/16 06/04/18 Rx amLODIPine [Norvasc] 10 mg PO DAILY 05/30/16 06/04/18 History Pravastatin Sodium [Pravachol] 40 mg PO HS 12/06/17 06/04/18 History INSULIN LISPRO (humaLOG) [humaLOG] See Protocol SQ AC-TID 06/04/18 06/04/18 History Magnesium Oxide 400 mg PO DAILY 06/04/18 06/04/18 History Vitamin B Complex 1 cap PO DAILY 06/04/18 06/04/18 History Warfarin [Coumadin] 2.5 mg PO DIRECTED 06/04/18 06/04/18 History cloNIDine HCL [Catapres] 0.1 mg PO DAILY PRN 06/04/18 06/04/18 History Allergies Allergy/AdvReac Type Severity Reaction Status Date / Time cephalexin monohydrate Allergy Rash/Hives Verified 06/04/18 20:02 [From Keflex] clindamycin Allergy Rash/Hives Verified 06/04/18 20:02 gluten Allergy Unknown Verified 06/04/18 20:02 Penicillins Allergy Rash/Hives Verified 06/04/18 20:02 Sulfa (Sulfonamide Allergy Anaphylaxis Verified 06/04/18 20:02 Antibiotics) sulfamethoxazole Allergy Anaphylaxis Verified 06/04/18 20:02 [From Bactrim] trimethoprim [From Bactrim] Allergy Anaphylaxis Verified 06/04/18 20:02 Physical Exam Vitals: Vital Signs Temp Pulse Pulse Resp BP BP Pulse Ox 06/05/18 08:00 97.3 F L 57 L 18 140/71 92 L 06/05/18 05:00 65 18 158/78 93 L 06/05/18 00:45 155/74 06/04/18 22:34 97.0 F L 68 18 153/80 95 06/04/18 22:26 157/87 06/04/18 22:08 98.9 F 65 18 174/84 96 06/04/18 21:50 94 18 200/96 97 06/04/18 20:16 64 18 194/98 97 06/04/18 19:49 63 18 193/91 97 06/04/18 19:17 98.3 F 68 18 182/78 96 Intake and Output 06/04/18 06/05/18 06/05/18 22:59 06:59 14:59 Intake Total 0.325 71.702 Balance 0.325 71.702 Intake: Intake, IV Titration 0.325 71.702 Amount Heparin Sod,Pork in 0.45% 71.702 NaCl 25,000 unit In 0.45 % NaCl 1 500ml.bag @ 11.6 UNITS/KG/HR 20.01 mls/hr IV .Q24H [facility] Rx#: [id number] Nitroglycerin-D5w Pmx 50 0.325 mg In Dextrose/Water 1 250ml.bag @ 5 MCG/MIN 1.5 mls/hr IV .Q24H [facility] Rx#: [id number] Other: Voiding Method Toilet # Voids 2 2 Weight 84.822 kg 84.8 kg PHYSICAL EXAMINATION: Patient is lying in the bed comfortably, no acute distress, awake alert and oriented.. HEENT: Normocephalic. Neck is supple. Pupils reactive. Nostrils clear. Oral cavity is moist. Ears reveal no drainage. Neck reveals no JVD, carotid bruits, or thyromegaly. CHEST EXAMINATION: Trachea is central. Symmetrical expansion. Bibasilar crackles. Lung tobias clear to auscultation and percussion. CARDIAC: Normal S1, S2 with no gallops. No murmurs ABDOMEN: Soft. Bowel sounds normal. No organomegaly. No abdominal bruits. Extremities: 2+ edema. No clubbing or cyanosis Neurologically awake, alert, oriented x3 with well-coordinated movements. No focal deficits noted Skin: No rash or skin lesions. Psychiatric: Coperative. Nonsuicidal Musculoskeletal: No joint swelling or deformity. Normal range of motion. Results CBC & Chem 7: 06/05/18 06:20 06/04/18 18:27 Labs: Abnormal Lab Results - Last 24 Hours (Table) 06/04/18 06/04/18 06/04/18 Range/Units 18:27 18:27 18:27 RBC (4.30-5.90) m/uL PT 14.8 H (9.0-12.0) sec INR 1.6 H (<1.2) APTT (22.0-30.0) sec BUN 28 H (9-20) mg/dL Creatinine 1.44 H (0.66-1.25) mg/dL Glucose 102 H (74-99) mg/dL POC Glucose (mg/dL) (75-99) mg/dL CK-MB (CK-2) 3.6 H* (0.0-2.4) ng/mL Total Protein 6.1 L (6.3-8.2) g/dL 06/04/18 06/05/18 06/05/18 Range/Units 23:15 00:18 00:18 RBC (4.30-5.90) m/uL PT (9.0-12.0) sec INR (<1.2) APTT 33.9 H (22.0-30.0) sec BUN (9-20) mg/dL Creatinine (0.66-1.25) mg/dL Glucose (74-99) mg/dL POC Glucose (mg/dL) 201 H (75-99) mg/dL CK-MB (CK-2) 3.3 H* (0.0-2.4) ng/mL Total Protein (6.3-8.2) g/dL 06/05/18 06/05/18 06/05/18 Range/Units 05:53 06:20 06:20 RBC 4.20 L (4.30-5.90) m/uL PT (9.0-12.0) sec INR (<1.2) APTT 46.6 H (22.0-30.0) sec BUN (9-20) mg/dL Creatinine (0.66-1.25) mg/dL Glucose (74-99) mg/dL POC Glucose (mg/dL) 136 H (75-99) mg/dL CK-MB (CK-2) (0.0-2.4) ng/mL Total Protein (6.3-8.2) g/dL Thrombosis Risk Factor Assmnt - DVT/VTE Prophylaxis DVT/VTE Prophylaxis: Pharmacologic Prophylaxis ordered - Choose All That Apply Any of the Below Risk Factors Present?: Yes Each Factor Represents 1 point: Obesity (BMI >25), Swollen legs (current) Each Risk Factor Represents 2 Points: Age 61-74 years Thrombosis Risk Factor Assessment Total Risk Factor Score: 4 Thrombosis Risk Factor Assessment Level: Moderate Risk Assessment and Plan Assessment: Shortness of breath secondary to acute on chronic CHF with diastolic dysfunction Upper abdominal fullness and discomfort. KUB x-ray showed no acute abdomen. Paroxysmal atrial fibrillation on anticoagulation with Coumadin. INR 1.6 Coronary artery disease with history of stent placement Diabetes type 2. Insulin-dependent Hypertension Hyperlipidemia Currently everyday smoker CK D stage III Subtherapeutic INR level GERD History of asbestos exposure DVT prophylaxis. Patient currently on Coumadin already. Plan: Patient will be continued on IV diuresis. His leg swelling is improving. Otherwise patient will be continued on heparin drip until INR becomes therapeutic. Patient was on IV nitro drip which has been discontinued. Patient is currently on sotalol and his atenolol was added. We will consider discontinuing Norvasc.. Continue with Imdur and hydralazine. Cardiology is on board. We will also obtain ultrasound of the abdomen due to fullness in the upper quadrant. Continue with Prilosec. Further recommendations based on the clinical course. Continue home insulin regimen along with sliding scale. Follow closely.. Smoking cessation was counseled extensively. Time with Patient: Greater than 30
[2018-06-05] MEDS: PANTOPRAZOLE 40 MG TABLET PO SCH (13:03)
[2018-06-05] MEDS ORDERED: hydrALAZINE HCL 25 MG TAB PO STA (13:05)
[2018-06-05] MEDS: hydrALAZINE HCL 50 MG TAB PO SCH ×2 (15:53→20:49)
[2018-06-05] MEDS ORDERED: SODIUM CHLORIDE 0.65% NASAL SPRAY 44 ML BTL NASAL PRN (15:58)
[2018-06-05 17:10] LABS: Glucose,Whole Blood 197 mg/dL (75-99)
[2018-06-05] MEDS: WARFARIN 5 MG TAB PO SCH (17:40)
[2018-06-05 20:35] LABS: Glucose,Whole Blood 177 mg/dL (75-99)
[2018-06-05] MEDS: PRAVASTATIN SODIUM 40 MG TAB PO SCH (20:49)
[2018-06-05] MEDS: ASPIRIN 81 MG PO SCH (20:49)
[2018-06-05] MEDS ORDERED: INSULIN DETEMIR 100 UNIT/ML 10 ML VIAL SQ SCH (21:00)
[2018-06-05] MEDS: HEPARIN SOD,PORK IN 0.45% NACL 25,000 UNIT in 0.45% NACL 1 500ML.BAG IV SCH (21:41)
[2018-06-05 21:50] LABS: Glucose,Whole Blood 145 mg/dL (75-99)
[2018-06-05] MEDS: INSULIN DETEMIR 100 UNIT/ML 10 ML VIAL SQ SCH (21:52)
[2018-06-06 05:52] LABS: Glucose,Whole Blood 166 mg/dL (75-99)
[2018-06-06] MEDS: INSULIN ASPART 100 UNIT/ML 1 ML 10 ML VIAL SQ SCH ×4 (05:58→21:23)
[2018-06-06] MEDS: SOTALOL 80 MG TAB PO SCH ×3 (06:24→20:37)
[2018-06-06] MEDS: hydrALAZINE HCL 50 MG TAB PO SCH ×3 (06:24→21:33)
[2018-06-06 06:55] LABS: Basophils % (A) 0 %; Eosinophils # (A) 0.1 k/uL (0-0.7); Eosinophils % (A) 2 %; HCT 42.3 % (39.0-53.0); HGB 13.8 gm/dL (13.0-17.5); Lymphocytes # (A) 0.8 k/uL (1.0-4.8); Lymphocytes % (A) 14 %; MCH 31.3 pg (25.0-35.0); MCHC 32.6 g/dL (31.0-37.0); Mean Platelet Volume 7.7; Monocytes # (A) 0.5 k/uL (0-1.0); Monocytes % (A) 7 %; Neutrophils # (A) 4.5 k/uL (1.3-7.7); Neutrophils % (A) 74 %; Platelet Count 190 k/uL (150-450); RDW 14.5 % (11.5-15.5); WBC 6.1 k/uL (3.8-10.6)
[2018-06-06 07:16] LABS: INR 1.7 (<1.2); Prothrombin Time 15.4 sec (9.0-12.0)
[2018-06-06 07:47] LABS: Calcium 8.5 mg/dL (8.4-10.2); Potassium 4.1 mmol/L (3.5-5.1)
[2018-06-06] MEDS: PANTOPRAZOLE 40 MG TABLET PO SCH (08:26)
[2018-06-06] MEDS: FLUTICASONE 50MCG/SPRAY NASAL 16GM EA NOSTRIL SCH (08:26)
[2018-06-06] MEDS: FUROSEMIDE 10 MG/ML 4 ML VIAL IV SCH ×2 (08:26→20:38)
[2018-06-06] MEDS: MAGNESIUM OXIDE 400 MG TAB PO SCH (08:26)
[2018-06-06] MEDS ORDERED: ISOSORBIDE MONONITRATE ER 30 MG TAB.ER.24H PO SCH (09:00)
--- NOTE | 2018-06-06 09:29 | US ---
EXAMINATION TYPE: US abdomen complete DATE OF EXAM: 06/06/2018 COMPARISON: NONE CLINICAL HISTORY: Upper abdominal fullness. EXAM MEASUREMENTS: Liver Length: 14.5 cm Gallbladder Wall: surgically absent CBD: 0.2 cm Spleen: 11.1 cm Right Kidney: 9.6 x 4.7 x 4.3 cm Left Kidney: 10.6 x 5.9 x 5.2 cm Extensive bowel gas. Pancreas: there is a hypoechoic structure that appears to be in the uncinate process of the pancrease measuring 1.2 x 1.2 x 1.5cm Liver: right lobe only viewed in a very limited capacity due to overlying bowel and one acoustic win misael intercostally Gallbladder: Surgically absent, gallbladder fossa obscured Evidence for sonographic Lazar's sign: no CBD: wnl Spleen: wnl Right Kidney: somewhat limited views, appears wnl as visualized Left Kidney: somewhat limited views, appears wnl as visualized Upper IVC: wnl Abd Aorta: partially obscured by bowel gas, portions visualized wnl Kidneys show normal cortical medullary differentiation. There is no ascites. IMPRESSION: Cannot exclude pancreatic mass, consider pancreatic MRI or dedicated CT. Exam somewhat l imited. Postop changes. A Yellow level critical message alert has been initiated for Lilibeth Urias MD via the [employer] Critical Results System on 06/06/2018 9:27 AM. This message alert has been sent to Lilibeth duong MD via the preferences provided by the clinician for the receipt of Radiology Critical Finding s. Message ID [id number].
--- NOTE | 2018-06-06 09:40 | P.PN ---
Subjective Progress Note Date: 06/06/18 Principal diagnosis: Paroxysmal A. fib This is a 63-year-old gentleman who follows with Dr. Morgan in the office. He has known history of hypertension, diabetes, hyperlipidemia, renal insufficiency, coronary artery disease with a prior stenting of the proximal diuretic in 2010 and distal circumflex in 2011, family history of premature coronary artery disease, nicotine dependence, paroxysmal atrial fibrillation on Coumadin for anticoagulation. The patient was admitted to the hospital with progressive dyspnea and bilateral lower extremities edema as well as uncontrolled hypertension. Most recent echo performed in the office in February revealed an ejection fraction of 55% with mild to moderate MR and mild TR. I'll follow-up with him today, he denies having any shortness of breath but he still have quite significant bilateral lower extremities edema. Beside that the blood pressure still not well-controlled and his systolic blood pressure is about 180s millimeters mercury and 190s millimeters mercury. We are going to add losartan at 50 mg by mouth daily to the current medical regimen. Meanwhile I will continue the Lasix at 40 mg IV twice a day. Objective - Vital Signs Vital signs: Vital Signs Temp 97.3 F L 06/06/18 08:00 Pulse 62 06/06/18 08:00 Resp 18 06/06/18 08:00 BP 194/93 06/06/18 08:00 Pulse Ox 94 L 06/06/18 08:00 Intake & Output 06/05/18 06/06/18 06/06/18 18:59 06:59 18:59 Intake Total 720 240 Output Total 750 Balance -30 240 Weight 84.8 kg 80 kg Intake: Oral 720 240 Output: Urine 750 Other: # Voids 2 - Constitutional General appearance: Present: no acute distress - Respiratory Respiratory: right: diminished, left: CTA - Cardiovascular Rhythm: regular Heart sounds: normal: S1, S2 - Labs CBC & Chem 7: 06/06/18 05:46 06/06/18 05:46 Labs: Abnormal Lab Results - Last 24 Hours (Table) 06/05/18 06/05/18 06/05/18 Range/Units 11:14 16:46 20:34 Lymphocytes # (1.0-4.8) k/uL PT (9.0-12.0) sec INR (<1.2) BUN (9-20) mg/dL Creatinine (0.66-1.25) mg/dL Glucose (74-99) mg/dL POC Glucose (mg/dL) 126 H 197 H 177 H (75-99) mg/dL 06/05/18 06/06/18 06/06/18 Range/Units 21:49 05:46 05:46 Lymphocytes # 0.8 L (1.0-4.8) k/uL PT (9.0-12.0) sec INR (<1.2) BUN 28 H (9-20) mg/dL Creatinine 1.56 H (0.66-1.25) mg/dL Glucose 153 H (74-99) mg/dL POC Glucose (mg/dL) 145 H (75-99) mg/dL 06/06/18 06/06/18 Range/Units 05:46 05:50 Lymphocytes # (1.0-4.8) k/uL PT 15.4 H (9.0-12.0) sec INR 1.7 H (<1.2) BUN (9-20) mg/dL Creatinine (0.66-1.25) mg/dL Glucose (74-99) mg/dL POC Glucose (mg/dL) 166 H (75-99) mg/dL Assessment and Plan Assessment: Assessment #1 congestive heart failure secondary to diastolic dysfunction. #2 coronary artery disease and prior coronary artery stenting #3 uncontrolled hypertension #4 paroxysmal atrial fibrillation Plan #1 continue the IV Lasix and continue monitor the kidney function and electrolytes #2 add losartan to the current medical regimen #3 follow-up with the patient. #4 the patient still hypervolemic and he is not ready to be discharged home yet.
[2018-06-06] MEDS ORDERED: LOSARTAN 50 MG TAB PO STA (09:41)
[2018-06-06 11:53] LABS: Glucose,Whole Blood 274 mg/dL (75-99)
[2018-06-06 15:12] LABS: Glucose,Whole Blood 46 mg/dL (75-99)
--- NOTE | 2018-06-06 15:27 | CDI ---
Last Revision, October 2017 Documentation Clarification Form Date: 06/06/2018 12:00:00 AM From: Khadijah Huitron RN, CCDS Admit Date: 06/04/2018 9:46:00 PM Patient Name: Jim Lieberman Visit Number: [id number] Discharge Date: ATTENTION: The Clinical Documentation Specialists (CDI) and [facility] Coding Staff appreciate your assistance in clarifying documentation. Please respond to the clarification below the line at the bottom and electronically sign. The CDI & [facility] Coding staff will review the response and follow-up if needed. Please note: Queries are made part of the Legal Health Record. If you have any questions, please contact the author of this message via ITS. Dr. Lilibeth Urisa H/P has documentation of uncontrolled hypertension Patient history/risk factors; Hypertension, Paroxysmal atrial fibrillation, chronic kidney disease stage III, CAD, Clinical Indicators: Present with complaints of upper abdominal bloating and belching and fullness along with worsening lower extremities swelling. Lab findings: BUN 28, CR 1.56, BNP 2640 Vital Signs on admission: 182/78 68 18 98.96 %RA 193/91 63 16 , 194/98 64 138, 200/96 94 128 Other Clinical Indicators: 06/06/18 @ 12:00 204/95 60 18 Treatment: Nitroglycerin drip (on admission) Losartan Po Lasix IV Hydralazine PO TID In your professional opinion, can you please further clarify uncontrolled hypertension? Hypertensive crisis Hypertensive Urgency Hypertensive Emergency Other, please specify Unable to determine Please continue to document in your progress notes and discharge summary in order to capture severity of illness and risk of mortality. Include clinical findings that support your diagnosis. Hypertensive Urgency MTDD
[2018-06-06] MEDS ORDERED: cloNIDine 0.1 MG/24HR PATCH 1 PATCH PATCH TRANSDERM SCH (15:30)
[2018-06-06 15:41] LABS: Glucose,Whole Blood 79 mg/dL (75-99)
[2018-06-06 16:49] LABS: Glucose,Whole Blood 90 mg/dL (75-99)
[2018-06-06] MEDS ORDERED: cloNIDine HCL 0.2 MG TAB PO STA (17:26)
[2018-06-06] MEDS: WARFARIN 5 MG TAB PO SCH (18:09)
[2018-06-06] MEDS: ASPIRIN 81 MG PO SCH (20:37)
[2018-06-06] MEDS: PRAVASTATIN SODIUM 40 MG TAB PO SCH (20:37)
[2018-06-06 20:50] LABS: Glucose,Whole Blood 205 mg/dL (75-99)
[2018-06-06] MEDS: INSULIN DETEMIR 100 UNIT/ML 10 ML VIAL SQ SCH (21:22)
[2018-06-06] MEDS: HEPARIN SOD,PORK IN 0.45% NACL 25,000 UNIT in 0.45% NACL 1 500ML.BAG IV SCH (21:32)
[2018-06-07 06:11] LABS: Glucose,Whole Blood 137 mg/dL (75-99)
[2018-06-07 06:31] LABS: Basophils % (A) 0 %; Eosinophils # (A) 0.2 k/uL (0-0.7); Eosinophils % (A) 3 %; HGB 13.9 gm/dL (13.0-17.5); Lymphocytes # (A) 1.2 k/uL (1.0-4.8); Lymphocytes % (A) 18 %; MCH 30.9 pg (25.0-35.0); MCHC 32.5 g/dL (31.0-37.0); MCV 95.2 fL (80.0-100.0); Mean Platelet Volume 7.9; Monocytes # (A) 0.4 k/uL (0-1.0); Monocytes % (A) 7 %; Neutrophils # (A) 4.5 k/uL (1.3-7.7); Neutrophils % (A) 69 %; Platelet Count 215 k/uL (150-450); RBC 4.51 m/uL (4.30-5.90); RDW 14.4 % (11.5-15.5); WBC 6.5 k/uL (3.8-10.6)
[2018-06-07 06:57] LABS: Calcium 8.6 mg/dL (8.4-10.2)
[2018-06-07] MEDS: INSULIN ASPART 100 UNIT/ML 1 ML 10 ML VIAL SQ SCH ×2 (07:04→12:24)
[2018-06-07] MEDS: PANTOPRAZOLE 40 MG TABLET PO SCH (07:04)
[2018-06-07] MEDS: FUROSEMIDE 10 MG/ML 4 ML VIAL IV SCH (07:38)
[2018-06-07] MEDS: hydrALAZINE HCL 50 MG TAB PO SCH ×2 (07:39→16:22)
[2018-06-07] MEDS: SOTALOL 80 MG TAB PO SCH (07:40)
[2018-06-07] MEDS: MAGNESIUM OXIDE 400 MG TAB PO SCH (07:40)
[2018-06-07] MEDS: FLUTICASONE 50MCG/SPRAY NASAL 16GM EA NOSTRIL SCH (08:49)
[2018-06-07] MEDS ORDERED: LOSARTAN 50 MG TAB PO SCH (09:00)
--- NOTE | 2018-06-07 09:52 | P.PN ---
Subjective Progress Note Date: 06/07/18 Principal diagnosis: Paroxysmal A. fib This is a 63-year-old gentleman who follows with Dr. Morgan in the office. He has known history of hypertension, diabetes, hyperlipidemia, renal insufficiency, coronary artery disease with a prior stenting of the proximal diuretic in 2010 and distal circumflex in 2011, family history of premature coronary artery disease, nicotine dependence, paroxysmal atrial fibrillation on Coumadin for anticoagulation. The patient was admitted to the hospital with progressive dyspnea and bilateral lower extremities edema as well as uncontrolled hypertension. Most recent echo performed in the office in February revealed an ejection fraction of 55% with mild to moderate MR and mild TR. On follow-up with the patient today, he is feeling better in terms of shortness of breath. The bilateral lower extent his edema has improved. He lost significant amount of weight. He continues to be on Lasix IV at 40 mg twice a day and the creatinine today is slightly worse of 1.7. He did undergo an ultrasound of the abdomen and that did not exclude pancreatic mass. A computed tomography scan or MRI was recommended and I will suggest an MRI in view of his chronic kidney disease. The blood pressure is way better controlled on the current medical regimen including losartan. Objective - Vital Signs Vital signs: Vital Signs Temp 97.2 F L 06/07/18 07:50 Pulse 59 L 06/07/18 07:50 Resp 16 06/07/18 07:50 BP 146/70 06/07/18 07:50 Pulse Ox 95 06/07/18 07:50 Intake & Output 06/06/18 06/07/18 06/07/18 18:59 06:59 18:59 Intake Total 720 480 Output Total 500 Balance 220 480 Weight 80.5 kg Intake: Oral 720 480 Output: Urine 500 Other: Voiding Method Toilet # Voids 1 2 - Constitutional General appearance: Present: no acute distress - Respiratory Respiratory: bilateral: CTA - Cardiovascular Heart sounds: normal: S1, S2 - Labs CBC & Chem 7: 06/07/18 06:14 06/07/18 06:14 Labs: Abnormal Lab Results - Last 24 Hours (Table) 06/06/18 06/06/18 06/06/18 Range/Units 11:41 15:00 20:49 BUN (9-20) mg/dL Creatinine (0.66-1.25) mg/dL Glucose (74-99) mg/dL POC Glucose (mg/dL) 274 H 46 L 205 H (75-99) mg/dL 06/07/18 06/07/18 Range/Units 06:09 06:14 BUN 40 H (9-20) mg/dL Creatinine 1.72 H (0.66-1.25) mg/dL Glucose 119 H (74-99) mg/dL POC Glucose (mg/dL) 137 H (75-99) mg/dL Assessment and Plan Assessment: Assessment #1 congestive heart failure secondary to diastolic dysfunction. #2 coronary artery disease and prior coronary artery stenting #3 uncontrolled hypertension #4 paroxysmal atrial fibrillation Plan #1 continue the current medical regimen #2 monitor the kidney function and electrolytes for additional 24 hours #3 the patient expressed the wishes that he would like to be discharged home
[2018-06-07 11:47] LABS: Glucose,Whole Blood 138 mg/dL (75-99)
[2018-06-07] MEDS: MAGNESIUM SULFATE-D5W PMX 1 GM in DEXTROSE/WATER 1 100ML.BAG IVPB SCH ×2 (12:24→13:45)
[2018-06-07 12:37] VITALS: TEMP 97.8
[2018-06-07] MEDS ORDERED: LORazepam 2 MG/ML INJ IV STA (13:27)
[2018-06-07 15:39] VITALS: BP 133/73; PULSE 58; RESP 18
--- NOTE | 2018-06-07 15:41 | MR ---
MR abdomen with and without contrast HISTORY: Abnormal abdomen ultrasound Multiplanar multisequence and postcontrast images through the abdomen following 7.5 cc Gadavist IV Correlation to ultrasound abdomen 06/06/2018, CT abdomen pelvis 08/09/2012 There is motion on the exam which may limit sensitivity. At the level of the uncinate process there i s no definite mass identified. The hypoechoic focus noted on patient's ultrasound shows what may be s ome stable edna tissue. There is no adenopathy. No evident liver mass, Doppler signal on out of phas e imaging within the liver could be indicative of hepatic steatosis. Gallbladder is absent. The adrenal glands, kidneys, and spleen are within normal limits. Hepatic veins, portal vein, splenop ortal confluence, abdominal aorta are patent. Inferior vena cava is patent. There are no pleural effu sions. IMPRESSION: No evident pancreatic mass. Probable stable edna tissue towards the level of the sandra h epatis. Postop change. Consider hepatic steatosis.
[2018-06-07] MEDS ORDERED: FUROSEMIDE 40 MG TAB PO SCH (16:00)
[2018-06-07 16:38] LABS: Glucose,Whole Blood 214 mg/dL (75-99)
[2018-06-08] MEDS ORDERED: WARFARIN 2.5 MG TAB PO SCH (18:00)
== END 2018-06-07 17:47 | disposition home or self-care (01) | DRG 291 ==
LOC: EC 18:00 → 6SEL 21:46
PROVIDERS: ADMIT Internal Medicine; ATTEND Internal Medicine
DX: I13.0 Hypertensive heart and chronic kidney disease with heart failure and stage 1 through stage 4 chronic kidney disease, or unspecified chronic kidney disease (principal); I50.33 Acute on chronic diastolic (congestive) heart failure; I48.0 Paroxysmal atrial fibrillation; I25.10 Atherosclerotic heart disease of native coronary artery without angina pectoris; I16.0 Hypertensive urgency; E78.5 Hyperlipidemia, unspecified; E11.22 Type 2 diabetes mellitus with diabetic chronic kidney disease; K21.9 Gastro-esophageal reflux disease without esophagitis; K90.0 Celiac disease; N18.3 Chronic kidney disease, stage 3 (moderate); R79.1 Abnormal coagulation profile; R21 Rash and other nonspecific skin eruption; F17.210 Nicotine dependence, cigarettes, uncomplicated; Z77.090 Contact with and (suspected) exposure to asbestos; Z79.01 Long term (current) use of anticoagulants; Z79.4 Long term (current) use of insulin; Z79.82 Long term (current) use of aspirin; Z79.899 Other long term (current) drug therapy; Z95.5 Presence of coronary angioplasty implant and graft; Z88.1 Allergy status to other antibiotic agents; Z88.0 Allergy status to penicillin; Z88.2 Allergy status to sulfonamides; Z98.42 Cataract extraction status, left eye; Z98.41 Cataract extraction status, right eye; Z96.1 Presence of intraocular lens; Z90.49 Acquired absence of other specified parts of digestive tract; Z82.49 Family history of ischemic heart disease and other diseases of the circulatory system; Z83.3 Family history of diabetes mellitus
CPT/HCPCS: 36415; 71046; 74018; 74183; 76700; 80048; 80053; 82105; 82550; 82553; 83735; 83880; 84484; 85025; 85610; 85730; 86301; 93005; 96365; 96368; 96375; 99285

== ENCOUNTER 2018-06-25 16:40 | Inpatient (IN) | payer MEDICARE ==
[2018-06-25] MEDS ORDERED: SODIUM CHLORIDE 0.9% 1,000 ML IV STA (19:50)
[2018-06-25] MEDS ORDERED: hydrALAZINE HCL 20 MG/ML 1 ML VIAL IVP STA ×2 (19:50→21:05)
[2018-06-25 20:11] LABS: Basophils % (A) 0 %; Eosinophils # (A) 0.2 k/uL (0-0.7); Eosinophils % (A) 2 %; HCT 43.4 % (39.0-53.0); HGB 14.2 gm/dL (13.0-17.5); Lymphocytes # (A) 1.4 k/uL (1.0-4.8); Lymphocytes % (A) 14 %; MCH 30.1 pg (25.0-35.0); MCHC 32.7 g/dL (31.0-37.0); MCV 92.1 fL (80.0-100.0); Mean Platelet Volume 8.3; Monocytes # (A) 0.7 k/uL (0-1.0); Monocytes % (A) 7 %; Neutrophils # (A) 7.9 k/uL (1.3-7.7); Neutrophils % (A) 76 %; Platelet Count 232 k/uL (150-450); RBC 4.71 m/uL (4.30-5.90); RDW 13.9 % (11.5-15.5); WBC 10.4 k/uL (3.8-10.6)
[2018-06-25 20:15] LABS: Albumin 3.7 g/dL (3.5-5.0); Calcium 8.9 mg/dL (8.4-10.2); Magnesium 1.9 mg/dL (1.6-2.3); Phosphorus 3.8 mg/dL (2.5-4.5); Potassium 4.2 mmol/L (3.5-5.1); Total Bilirubin 0.4 mg/dL (0.2-1.3); Total Protein 6.2 g/dL (6.3-8.2)
[2018-06-25 20:35] LABS: Troponin I 0.226 ng/mL (0.000-0.034)
--- NOTE | 2018-06-25 20:42 | ED ---
General Adult HPI - General Chief complaint: Recheck/Abnormal Lab/Rx Stated complaint: hypertension Time Seen by Provider: 06/25/18 18:44 Source: patient, RN notes reviewed, old records reviewed Mode of arrival: ambulatory Limitations: no limitations - History of Present Illness Initial comments: This is a 63-year-old male to the ER for evaluation of some palpitations and elevated blood pressure. Patient is significant recent hospitalization, hospitalized for some heart failure and fluid overload. Patient's been on Lasix with improving weight and loss of fluid, the patient is significantly elevated blood pressure today. Patient denies any chest pain or shortness of breath, he does admit to palpitations earlier. Patient has no other significant complaints - Related Data Home Medications Medication Instructions Recorded Confirmed Aspirin 81 mg PO DAILY 08/18/14 06/25/18 Insulin Detemir [Levemir] 26 unit SQ HS 08/18/14 06/25/18 Omeprazole [PriLOSEC] 20 mg PO AC-BRKFST 08/18/14 06/25/18 Warfarin [Coumadin] 5 mg PO DIRECTED 08/18/14 06/25/18 Fluticasone Nasal [place] [Flonase 2 spray EA NOSTRIL BID 05/12/16 06/25/18 Nasal [place]] Pravastatin Sodium [Pravachol] 40 mg PO HS 12/06/17 06/25/18 INSULIN LISPRO (humaLOG) [humaLOG] See Protocol SQ AC-TID 06/04/18 06/25/18 Magnesium Oxide 400 mg PO DAILY 06/04/18 06/25/18 Warfarin [Coumadin] 2.5 mg PO DIRECTED 06/04/18 06/25/18 Furosemide [Lasix] 40 mg PO DAILY 06/25/18 06/25/18 Previous Rx's Medication Instructions Recorded Sotalol HCl [Sotalol] 160 mg PO BID #0 05/13/16 Losartan [Cozaar] 50 mg PO DAILY #30 tab 06/07/18 hydrALAZINE HCL [Apresoline] 100 mg PO TID #90 tab 06/07/18 Allergies Allergy/AdvReac Type Severity Reaction Status Date / Time amoxicillin Allergy Anaphylaxis Verified 06/25/18 19:05 cephalexin monohydrate Allergy Rash/Hives Verified 06/25/18 19:05 [From Keflex] clindamycin Allergy Rash/Hives Verified 06/25/18 19:05 gluten Allergy Unknown Verified 06/25/18 19:05 Penicillins Allergy Rash/Hives Verified 06/25/18 19:05 Sulfa (Sulfonamide Allergy Anaphylaxis Verified 06/25/18 19:05 Antibiotics) sulfamethoxazole Allergy Anaphylaxis Verified 06/25/18 19:05 [From Bactrim] trimethoprim [From Bactrim] Allergy Anaphylaxis Verified 06/25/18 19:05 Review of Systems ROS Statement: Those systems with pertinent positive or pertinent negative responses have been documented in the HPI. ROS Other: All systems not noted in ROS Statement are negative. Past Medical History Past Medical History: Atrial Fibrillation, Diabetes Mellitus, GERD/Reflux, Hyperlipidemia, Hypertension, Skin Disorder Additional Past Medical History / Comment(s): HAS SKIN RASH, ITCHING -celiac disease, past asbestos exposure History of Any Multi-Drug Resistant Organisms: None Reported Past Surgical History: Cholecystectomy, Heart Catheterization With Stent, Tonsillectomy Additional Past Surgical History / Comment(s): 2 STENTS, cataracts Past Anesthesia/Blood Transfusion Reactions: No Reported Reaction Date of Last Stent Placement:: 2010 Past Psychological History: No Psychological Hx Reported Smoking Status: Current every day smoker Past Alcohol Use History: None Reported Past Drug Use History: None Reported - Past Family History Mother Family Medical History: Diabetes Mellitus Father Family Medical History: Myocardial Infarction (PR) Brother(s) Family Medical History: Myocardial Infarction (PR) General Exam Limitations: no limitations General appearance: alert, in no apparent distress Head exam: Present: atraumatic, normocephalic, normal inspection Eye exam: Present: normal appearance, PERRL, EOMI. Absent: scleral icterus, conjunctival injection, periorbital swelling ENT exam: Present: normal exam, mucous membranes moist Neck exam: Present: normal inspection. Absent: tenderness, meningismus, lymphadenopathy Respiratory exam: Present: normal lung sounds bilaterally. Absent: respiratory distress, wheezes, rales, rhonchi, stridor Cardiovascular Exam: Present: regular rate, normal rhythm, normal heart sounds. Absent: systolic murmur, diastolic murmur, rubs, gallop, clicks GI/Abdominal exam: Present: soft, normal bowel sounds. Absent: distended, tenderness, guarding, rebound, rigid Extremities exam: Present: normal inspection, full ROM, normal capillary refill. Absent: tenderness, pedal edema, joint swelling, calf tenderness Back exam: Present: normal inspection Neurological exam: Present: alert, oriented X3, CN II-XII intact Psychiatric exam: Present: normal affect, normal mood Skin exam: Present: warm, dry, intact, normal color. Absent: rash Course Vital Signs 06/25/18 06/25/18 06/25/18 17:03 20:20 21:50 Temperature 98.0 F Pulse Rate 56 L 56 L 59 L Respiratory 18 18 18 Rate Blood Pressure 171/78 176/82 186/84 O2 Sat by Pulse 97 97 96 Oximetry - Reevaluation(s) Reevaluation #1: 06/25/18 20:42 Medical records thoroughly reviewed Reevaluation #2: 06/25/18 21:52 Patient remains without chest pain EKG Findings - EKG Comments: EKG Findings:: EKG shows sinus bradycardia rate of 56, MA 154, QRS 96, QTc 507 Medical Decision Making - Medical Decision Making 60 female the ER for evaluation positive elevated blood pressure not feeling well palpitations. Patient be admitted for cardiac observation is elevated troponin was severely elevated high blood pressure hypertensive emergency - Lab Data Result diagrams: 06/25/18 19:31 06/25/18 19:31 Lab Results 06/25/18 06/25/18 06/25/18 Range/Units 19:31 19:31 19:31 WBC 10.4 (3.8-10.6) k/uL RBC 4.71 (4.30-5.90) m/uL Hgb 14.2 (13.0-17.5) gm/dL Hct 43.4 (39.0-53.0) % MCV 92.1 (80.0-100.0) fL MCH 30.1 (25.0-35.0) pg MCHC 32.7 (31.0-37.0) g/dL RDW 13.9 (11.5-15.5) % Plt Count 232 (150-450) k/uL Neutrophils % 76 % Lymphocytes % 14 % Monocytes % 7 % Eosinophils % 2 % Basophils % 0 % Neutrophils # 7.9 H (1.3-7.7) k/uL Lymphocytes # 1.4 (1.0-4.8) k/uL Monocytes # 0.7 (0-1.0) k/uL Eosinophils # 0.2 (0-0.7) k/uL Basophils # 0.0 (0-0.2) k/uL Sodium 138 (137-145) mmol/L Potassium 4.2 (3.5-5.1) mmol/L Chloride 100 (98-107) mmol/L Carbon Dioxide 30 (22-30) mmol/L Anion Gap 8 mmol/L BUN 53 H (9-20) mg/dL Creatinine 1.67 H (0.66-1.25) mg/dL Est GFR (CKD-EPI)AfAm 50 (>60 ml/min/1.73 sqM) Est GFR (CKD-EPI)NonAf 43 (>60 ml/min/1.73 sqM) Glucose 87 (74-99) mg/dL Calcium 8.9 (8.4-10.2) mg/dL Phosphorus 3.8 (2.5-4.5) mg/dL Magnesium 1.9 (1.6-2.3) mg/dL Total Bilirubin 0.4 (0.2-1.3) mg/dL AST 33 (17-59) U/L ALT 41 (21-72) U/L Alkaline Phosphatase 86 (38-126) U/L Total Creatine Kinase 98 (55-170) U/L CK-MB (CK-2) 5.0 H* (0.0-2.4) ng/mL CK-MB (CK-2) Rel Index 5.1 Troponin I 0.226 H* (0.000-0.034) ng/mL Total Protein 6.2 L (6.3-8.2) g/dL Albumin 3.7 (3.5-5.0) g/dL Critical Care Time Critical Care Time: Yes Total Critical Care Time: 31 Disposition Clinical Impression: Hypertension, Renal insufficiency, Unstable angina pectoris, NSTEMI (non-ST elevated myocardial infarction) Disposition: ADMITTED IP TO THIS HOSP Condition: Serious Is patient prescribed a controlled substance at d/c from ED?: No Referrals: Ivy Valentine DO [Primary Care Provider] - 1-2 days
[2018-06-25] MEDS ORDERED: ENALAPRILAT 1.25 MG/ML 1 ML VIAL IVP STA (21:52)
[2018-06-25] MEDS ORDERED: hydrALAZINE HCL 20 MG/ML 1 ML VIAL IVP PRN (21:52)
[2018-06-25] MEDS ORDERED: ASPIRIN 81 MG PO STA (21:53)
[2018-06-25] MEDS ORDERED: NITROGLYCERIN SL TABS 0.4 MG TAB SUBLINGUAL PRN (21:53)
[2018-06-26] MEDS ORDERED: TEMAZEPAM 15 MG CAP PO PRN (00:23)
[2018-06-26] MEDS ORDERED: ALPRAZolam 0.25 MG TAB PO PRN ×2 (00:23→08:29)
[2018-06-26 00:54] LABS: Creatine Kinase MB 3.9 ng/mL (0.0-2.4); Troponin I 0.165 ng/mL (0.000-0.034)
[2018-06-26 01:36] LABS: Cholesterol 160 mg/dL (<200); HDL Cholesterol 41 mg/dL (40-60); LDL Cholesterol,Calculated 97 mg/dL (0-99); Triglycerides 112 mg/dL (<150)
--- NOTE | 2018-06-26 04:28 | HP ---
HISTORY AND PHYSICAL DATE OF SERVICE: 06/25/2018 CHIEF COMPLAINTS: Palpitations and abdominal fullness and flushing and neck flushing. HISTORY OF PRESENT ILLNESS: This 63-year-old gentleman with a past medical history of multiple medical problems including atrial fibrillation, history of diabetes, GERD, hypertension, hyperlipidemia, being followed by Dr. Valentine in the outpatient setting, was recently admitted to [facility] with complaints of CHF acute exacerbation, acute on chronic diastolic dysfunction also considered. Patient had significant leg swelling, but after diuresis, patient improved significantly. Patient went home and 2 days ago the patient was feeling abdominal fullness and the patient also had some palpitations and yesterday the patient had fullness and also some flushing sensation in neck and patient came to [facility] and admitted for further evaluation and treatment. The patient was taking sotalol for atrial fibrillation. The patient had an EKG on admission this time which showed ST-T changes. The patient also had chronic kidney disease stage 3 also. Of note, the lab was creatinine is 1.67 and troponin 0.226 raising the possibility of non ST-segment elevation myocardial infarction. The patient admitted for further evaluation and treatment. There is no history of fever, rigors. No headache, loss of consciousness, seizures. PAST MEDICAL HISTORY: History of atrial ablation, diabetes, GERD, and hypertension hyperlipidemia. MEDICATIONS: Prior to admission include home medications are: 1. Coumadin 2.5 mg p.r.n. and 5 mg p.r.n. 2. Pravachol 40 mg q.h.s. 3. Levemir 26 units subcu q.h.s. 4. Lasix 40 mg p.o. daily. 5. Apresoline 100 mg p.o. t.i.d. 6. Sotalol 160 mg p.o. b.i.d. 7. Prilosec 20 mg a.c. breakfast. 8. Magnesium oxide 400 mg p.o. daily. 9. Cozaar 50 mg p.o. daily. 10.Humalog t.i.d. 11.Flonase 2 sprays b.i.d. 12.Aspirin 81 mg p.o. daily. ALLERGIES: ARE AMOXICILLIN AND KEFLEX, CLINDAMYCIN, GLUTEN, PENICILLIN, SULFA, BACTRIM. FAMILY HISTORY: History of diabetes in the family. SOCIAL HISTORY: History of smoking, continued and ongoing. REVIEW OF SYSTEMS: ENT: No diminished vision. No diminished hearing. CARDIOVASCULAR SYSTEM: As mentioned. RESPIRATORY: As mentioned earlier. GI: No nausea or vomiting. no dysuria. NERVOUS SYSTEM: No numbness, weakness. ALLERGY/IMMUNOLOGY: No asthma or hayfever. MUSCULOSKELETAL as mentioned earlier. HEMATOLOGY/ONCOLOGY: No history of anemia. ENDOCRINE: History of diabetes. CONSTITUTIONAL: As mentioned earlier. Dermatology: Negative. Rheumatology: Negative. Psychiatry: As mentioned earlier. PHYSICAL EXAM: Patient is alert, oriented x3. Pulse is 56. Blood pressure 158/74, respiration 18, temperature 97.7, pulse ox 97% on room air. HEENT: Conjunctivae normal. Oral mucosa moist. Neck is no jugular venous distention. No carotid bruit. No lymph node enlargement. Cardiovascular: S1, S2. No S3, no S4. RESPIRATORY: Breath sounds diminished in the bases. Bilateral scattered rhonchi and crackles few. ABDOMEN: Soft, nontender. No mass palpable. LEGS: No edema and no swelling. NERVOUS SYSTEM: Higher functions as mentioned. Moves all 4 limbs. No focal motor or sensory deficits. Lymphatics: No lymph nodes palpable in the neck, axillae or groin. SKIN: No ulcer, rash or bleeding. LAB STUDIES: CBC within normal limits. Creatinine 1.67 and troponin 0.226. ASSESSMENT: 1. Chest, epigastric discomfort and as well as flushing of the neck, possible acute non ST-segment elevation myocardial infarction with troponin 0.226. 2. Paroxysmal atrial fibrillation. 3. Increased creatinine with chronic kidney disease stage 3. 4. Diabetes type 2. 5. Gastroesophageal reflux disease. 6. Hypertension. 7. Hyperlipidemia. 8. History of cholecystectomy. 9. History of coronary artery disease/stent. 10.History of continued ongoing nicotine dependence. RECOMMENDATIONS AND DISCUSSION: In this 63-year-old gentleman who presented with multiple complex medical issues, we will monitor the patient closely, continue the current medications, management and symptomatic treatment. Otherwise at this time I recommend continue with antiplatelet agents, beta blockers. Closely follow with Cardiology, possible cardiac cath. Otherwise, resume the home medications. Telemetry. Guarded prognosis because of multiple complex medical issues. See orders for details. MMODL / IJN: [id number] /
[2018-06-26 06:04] LABS: Glucose,Whole Blood 143 mg/dL (75-99)
[2018-06-26] MEDS: PANTOPRAZOLE 40 MG TABLET PO SCH (06:59)
[2018-06-26] MEDS: SODIUM CHLORIDE 0.9% 1,000 ML IV SCH ×2 (07:00→12:35)
--- NOTE | 2018-06-26 08:18 | P.CRDCN ---
History of Present Illness Consult date: 06/26/18 Requesting physician: Pamela Arthur Reason for Consult (text): Abnormal troponins Chief complaint: Hypertension History of present illness: This is a 63-year-old gentleman who follows regularly with Dr. Morgan in the office he has a known history of hypertension, diabetes, hyperlipidemia, renal insufficiency, coronary artery disease with prior stenting of the proximal diagonal branch in 2010 and distal circumflex in 2011, family history of premature coronary artery disease, nicotine dependence, paroxysmal atrial fibrillation. He states that he just recently saw Dr. Morgan in the office approximately a week ago. Patient presents to the hospital with accelerated hypertension, he states that he checked his blood pressure at home and noted it was quite high, he took an extra clonidine, rechecked his pressure it was still greater than 200 and for this reason he came to the emergency room. He states that his neck was quite flushed and he felt ringing in his ears. Patient does state that the night prior to this he had a fullness feeling in his upper abdomen, denies any overt chest pains. Blood pressure on arrival here 170/78, heart rate in the 50s, 97% on room air. Blood pressure this morning 162/70 with a heart rate in the 50s, 96% on room air. Laboratory data was reviewed, white blood cell count 10.4, hemoglobin 14.2, platelet count 232. Sodium 138, potassium 4.2, BUN 53, creatinine 1.6. Magnesium 1.9. Initial troponin on presentation here 0.226, subsequent troponin 0.16. EKG on arrival here sinus bradycardia with ST-T wave changes noted in the anterior leads. At the time of my examination this morning, patient feels well, no complaints. Past Medical History Past Medical History: Atrial Fibrillation, Diabetes Mellitus, GERD/Reflux, Hyperlipidemia, Hypertension, Skin Disorder Additional Past Medical History / Comment(s): HAS SKIN RASH, ITCHING -celiac disease, past asbestos exposure History of Any Multi-Drug Resistant Organisms: None Reported Past Surgical History: Cholecystectomy, Heart Catheterization With Stent, Tonsillectomy Additional Past Surgical History / Comment(s): 2 STENTS, cataracts Past Anesthesia/Blood Transfusion Reactions: No Reported Reaction Date of Last Stent Placement:: 2010 Past Psychological History: No Psychological Hx Reported Additional Psychological History / Comment(s): lives at home with his , worked for [employer], no service. pt is independant,no cane or walker and no outside services. Smoking Status: Current every day smoker Past Alcohol Use History: None Reported Additional Past Alcohol Use History / Comment(s): patient stated smoking about 1 pack per day, started 40 years ago. and does not drink alcohol anymore. Past Drug Use History: None Reported - Past Family History Mother Family Medical History: Diabetes Mellitus Father Family Medical History: Myocardial Infarction (OR) Brother(s) Family Medical History: Myocardial Infarction (OR) Medications and Allergies Home Medications Medication Instructions Recorded Confirmed Type Aspirin 81 mg PO DAILY 08/18/14 06/25/18 History Insulin Detemir [Levemir] 26 unit SQ HS 08/18/14 06/25/18 History Omeprazole [PriLOSEC] 20 mg PO AC-BRKFST 08/18/14 06/25/18 History Warfarin [Coumadin] 5 mg PO DIRECTED 08/18/14 06/25/18 History Fluticasone Nasal [place] [Flonase 2 spray EA NOSTRIL BID 05/12/16 06/25/18 History Nasal [place]] Sotalol HCl [Sotalol] 160 mg PO BID #0 05/13/16 06/25/18 Rx Pravastatin Sodium [Pravachol] 40 mg PO HS 12/06/17 06/25/18 History INSULIN LISPRO (humaLOG) [humaLOG] See Protocol SQ AC-TID 06/04/18 06/25/18 History Magnesium Oxide 400 mg PO DAILY 06/04/18 06/25/18 History Warfarin [Coumadin] 2.5 mg PO DIRECTED 06/04/18 06/25/18 History Losartan [Cozaar] 50 mg PO DAILY #30 tab 06/07/18 06/25/18 Rx hydrALAZINE HCL [Apresoline] 100 mg PO TID #90 tab 06/07/18 06/25/18 Rx Furosemide [Lasix] 40 mg PO DAILY 06/25/18 06/25/18 History Allergies Allergy/AdvReac Type Severity Reaction Status Date / Time amoxicillin Allergy Anaphylaxis Verified 06/25/18 19:05 cephalexin monohydrate Allergy Rash/Hives Verified 06/25/18 19:05 [From Keflex] clindamycin Allergy Rash/Hives Verified 06/25/18 19:05 gluten Allergy Unknown Verified 06/25/18 19:05 Penicillins Allergy Rash/Hives Verified 06/25/18 19:05 Sulfa (Sulfonamide Allergy Anaphylaxis Verified 06/25/18 19:05 Antibiotics) sulfamethoxazole Allergy Anaphylaxis Verified 06/25/18 19:05 [From Bactrim] trimethoprim [From Bactrim] Allergy Anaphylaxis Verified 06/25/18 19:05 Physical Exam Vitals: Vital Signs Temp Pulse Pulse Resp BP BP Pulse Ox 06/26/18 05:21 97.2 F L 54 L 18 163/77 96 06/26/18 04:14 58 L 18 119/71 99 06/26/18 03:00 58 L 18 158/75 99 06/25/18 23:08 97.7 F 56 L 18 158/74 97 06/25/18 22:05 58 L 18 179/76 96 06/25/18 21:50 59 L 18 186/84 96 06/25/18 20:20 56 L 18 176/82 97 06/25/18 17:03 98.0 F 56 L 18 171/78 97 Intake and Output 06/25/18 06/26/18 06/26/18 22:59 06:59 14:59 Intake Total 800 Output Total 300 Balance 500 Intake: Intake, IV Titration 800 Amount Sodium Chloride 0.9% 1, 800 000 ml @ 100 mls/hr IV . Q10H [facility] Rx#:[id number] Output: Urine 300 Other: Weight 83.007 kg 82.8 kg PHYSICAL EXAMINATION: GENERAL: 63-year-old gentleman in no acute distress at the time of my examination HEENT: Head is atraumatic, normocephalic. Pupils equal, round. Sclera anicteric. Conjunctiva are clear. Mucous membranes of the mouth are moist. Neck is supple. There is no elevated jugular venous pressure. No carotid bruit is heard. HEART EXAMINATION: Heart S1, S2 normal. No murmur or gallop heard. CHEST EXAMINATION: Lungs are clear with mild decreased air exchange throughout . No chest wall tenderness is noted on palpation or with deep breathing. ABDOMEN: Soft, nontender. Bowel sounds are heard. No organomegaly noted. EXTREMITIES: 2+ peripheral pulses with no evidence of peripheral edema and no calf tenderness noted. NEUROLOGIC patient is awake, alert and orientedX3. . Results 06/25/18 19:31 06/25/18 19:31 Cardiac Enzymes 06/25/18 06/25/18 06/25/18 Range/Units 19:31 19:31 23:30 AST 33 (17-59) U/L CK-MB (CK-2) 5.0 H* 3.9 H* (0.0-2.4) ng/mL Troponin I 0.226 H* 0.165 H* (0.000-0.034) ng/mL Lipids 06/25/18 Range/Units 19:31 Triglycerides 112 (<150) mg/dL Cholesterol 160 (<200) mg/dL HDL Cholesterol 41 (40-60) mg/dL CBC 06/25/18 Range/Units 19:31 WBC 10.4 (3.8-10.6) k/uL RBC 4.71 (4.30-5.90) m/uL Hgb 14.2 (13.0-17.5) gm/dL Hct 43.4 (39.0-53.0) % Plt Count 232 (150-450) k/uL Comprehensive Metabolic Panel 06/25/18 Range/Units 19:31 Sodium 138 (137-145) mmol/L Potassium 4.2 (3.5-5.1) mmol/L Chloride 100 (98-107) mmol/L Carbon Dioxide 30 (22-30) mmol/L BUN 53 H (9-20) mg/dL Creatinine 1.67 H (0.66-1.25) mg/dL Glucose 87 (74-99) mg/dL Calcium 8.9 (8.4-10.2) mg/dL AST 33 (17-59) U/L ALT 41 (21-72) U/L Alkaline Phosphatase 86 (38-126) U/L Total Protein 6.2 L (6.3-8.2) g/dL Albumin 3.7 (3.5-5.0) g/dL Current Medications Generic Name Dose Route Start Last Admin Trade Name Freq PRN Reason Stop Dose Admin Alprazolam 0.25 mg 06/26/18 00:23 Xanax PO TID PRN Anxiety Aspirin 325 mg 06/26/18 09:00 Aspirin PO DAILY ALONZO Fluticasone Propionate 2 spray 06/26/18 09:00 Flonase Nasal [place] EA NOSTRIL BID ALONZO Furosemide 40 mg 06/26/18 09:00 Lasix PO DAILY ALONZO Hydralazine HCl 10 mg 06/25/18 21:52 Apresoline IVP Q6HR PRN Blood Pressure - High Hydralazine HCl 100 mg 06/26/18 09:00 Apresoline PO TID [facility] Sodium Chloride 1,000 mls @ 100 mls/hr 06/25/18 22:00 06/26/18 07:00 Saline 0.9% IV 100 mls/hr .Q10H [facility] Administration Insulin Aspart 0 unit 06/26/18 07:30 Novolog SQ ACHS ALONZO Protocol Insulin Detemir 26 unit 06/26/18 21:00 Levemir SQ HS ALON[facility] Losartan Potassium 50 mg 06/26/18 09:00 Cozaar PO DAILY [facility] Magnesium Oxide 400 mg 06/26/18 09:00 Mag-Ox PO DAILY [facility] Nicotine 1 patch 06/26/18 09:00 Habitrol 14mg/24hr Patch TRANSDERM DAILY [facility] Nitroglycerin 0.4 mg 06/25/18 21:53 Nitrostat SUBLINGUAL Q5M PRN Chest Pain Pantoprazole Sodium 40 mg 06/26/18 07:30 06/26/18 06:59 Protonix PO 40 mg AC-BRKFST [facility]ON[facility] Administration Pravastatin Sodium 40 mg 06/26/18 21:00 Pravachol PO HS [facility] Sotalol HCl 160 mg 06/26/18 09:00 Betapace PO BID ALON[facility] Temazepam 15 mg 06/26/18 00:23 Restoril PO HS PRN Insomnia Intake and Output 06/25/18 06/26/18 06/26/18 22:59 06:59 14:59 Intake Total 800 Output Total 300 Balance 500 Intake: Intake, IV Titration 800 Amount Sodium Chloride 0.9% 1, 800 000 ml @ 100 mls/hr IV . Q10H [facility] Rx#:[id number] Output: Urine 300 Other: Weight 83.007 kg 82.8 kg 06/25/18 19:31 06/25/18 19:31 EKG Interpretations (text) EKG shows a sinus bradycardia with ST-T wave changes noted in the anterior leads. Assessment and Plan Plan: Assessment and plan #1 accelerated hypertension #2 abnormal troponins, patient states he did have upper abdominal tightness and discomfort the night before presentation to the hospital. Remind symptoms somewhat of his angina. Troponins 0.22, 0.16. #3 known history of coronary artery disease with prior stent placements #4 hypertension #5 hyperlipidemia #6 diabetes #7 nicotine dependence #8 chronic kidney disease #9 paroxysmal atrial fibrillation, on Coumadin for anticoagulation, no INR obtained. Plan Most recent echocardiogram with Doppler study was performed in February of this year which revealed an ejection fraction of 55%. Mild to moderate MR and mild TR. We will repeat an echo on this admission. We will also obtain a third troponin value. Optimize blood pressure control. Further recommendations to follow. DNP note has been reviewed, I agree with a documented findings and plan of care. Patient was seen and examined.
[2018-06-26 08:20] LABS: INR 2.6 (<1.2); Prothrombin Time 23.8 sec (9.0-12.0)
[2018-06-26] MEDS ORDERED: ALPRAZolam 0.5 MG TAB PO PRN (08:29)
[2018-06-26] MEDS ORDERED: NITROGLYCERIN SL TABS 0.4 MG TAB SUBLINGUAL PRN (08:29)
[2018-06-26] MEDS ORDERED: ASPIRIN 325 MG TAB PO STA (08:29)
[2018-06-26] MEDS ORDERED: ATORVASTATIN 80 MG TAB PO STA (08:29)
[2018-06-26] MEDS ORDERED: SODIUM CHLORIDE 0.9% 1,000 ML in EMPTY BAG 1 BAG IV ONE (08:29)
[2018-06-26] MEDS ORDERED: SODIUM CHLORIDE 0.9% 1,000 ML IV SCH (08:30)
--- NOTE | 2018-06-26 08:43 | P.PN ---
Progress Note - Text this is an addendum to the dictated cardiology consultation. The patient presents with symptoms of abdominal fullness, elevated blood pressure. He has a known history of CAD, chronic tobacco use, hypertension, paroxysmal atrial fibrillation ,hyperlipidemia and diabetes mellitus. he has underwent obtain an MPI recently that revealed lateral wall ischemia but because of his renal function abnormality clinical observation was recommended. On his lab data he had elevation of his troponin. His blood pressure has been elevated. He's feeling well this morning without associated chest or abdominal discomfort. His presentation is consistent with non-ST segment elevation myocardial infarction. I have recommended to proceed with cardiac catheterization, we will hold his Coumadin and his Lasix. Hydrate the patient and proceed with a cardiac catheterization tomorrow if his renal functions are stable. The increased risk of worsening renal function was discussed with him. He is in full understanding and agreement. Thank you for this consult we will follow with you.
[2018-06-26 09:00] LABS: Creatine Kinase MB 3.8 ng/mL (0.0-2.4)
[2018-06-26] MEDS ORDERED: PANTOPRAZOLE 40 MG/10 ML VIAL IVP SCH (09:00)
[2018-06-26] MEDS ORDERED: FUROSEMIDE 40 MG TAB PO SCH (09:00)
[2018-06-26] MEDS ORDERED: ASPIRIN 325 MG TAB PO SCH (09:00)
[2018-06-26 09:01] LABS: Troponin I 0.132 ng/mL (0.000-0.034)
[2018-06-26] MEDS: ASPIRIN 81 MG PO SCH (09:17)
[2018-06-26] MEDS: amLODIPine 5 MG TAB PO SCH (09:17)
[2018-06-26] MEDS: hydrALAZINE HCL 50 MG TAB PO SCH ×3 (09:18→21:44)
[2018-06-26] MEDS: MAGNESIUM OXIDE 400 MG TAB PO SCH (09:19)
[2018-06-26] MEDS: LOSARTAN 50 MG TAB PO SCH (09:19)
[2018-06-26] MEDS: NICOTINE 14MG/24HR PATCH TRANSDERM SCH (09:20)
[2018-06-26] MEDS: FLUTICASONE 50MCG/SPRAY NASAL 16GM EA NOSTRIL SCH ×2 (09:20→21:44)
[2018-06-26] MEDS: SOTALOL 80 MG TAB PO SCH ×2 (09:20→21:44)
--- NOTE | 2018-06-26 09:52 | ECHOF ---
Referral Reason:chest pain MEASUREMENTS -------- HEIGHT: 180.3 cm WEIGHT: 82.6 kg BP: 163/77 IVSd: 1.9 cm (0.6 - 1.1) LVIDd: 4.1 cm (3.9 - 5.3) LVPWd: 1.5 cm (0.6 - 1.1) IVSs: 2.4 cm LVIDs: 2.1 cm LVPWs: 2.4 cm LAESV Index (A-L): 31.12 ml/m Ao Diam: 3.9 cm (2.0 - 3.7) AV Cusp: 2.0 cm (1.5 - 2.6) LA Diam: 4.3 cm (2.7 - 3.8) MV EXCURSION: 11.453 mm (> 18.000) MV EF SLOPE: 58 mm/s (70 - 150) EPSS: 0.5 cm MV E Reagan: 1.04 m/s MV DecT: 298 ms MV A Reagan: 0.94 m/s MV E/A Ratio: 1.11 RAP: 5.00 mmHg RVSP: 29.40 mmHg FINDINGS -------- Sinus rhythm. This was a technically good study. The left ventricular size is normal. There is severe concentric left ventricular hypertrophy. Ove rall left ventricular systolic function is normal with, an EF between 55 - 60 %. The right ventricle is normal in size and function. LA is midly dilated 29-33ml/m2. The right atrium is normal in size. Aortic valve is trileaflet and is mildly thickened. The mitral valve leaflets are mildly thickened. Mild mitral annular calcification present. Mild m itral regurgitation is present. Mild tricuspid regurgitation present. The right ventricular systolic pressure, as measured by Doppl er, is 29.40mmHg. Pulmonic valve appears structurally normal. The aortic root is dilated measuring 3.9 cm. Normal inferior vena cava with normal inspiratory collapse consistent with estimated right atrial pre ssure of 5 mmHg. The pericardium is normal. CONCLUSIONS -------- 1. Sinus rhythm. 2. This was a technically good study. 3. The left ventricular size is normal. 4. There is severe concentric left ventricular hypertrophy. 5. Overall left ventricular systolic function is normal with, an EF between 55 - 60 %. 6. The right ventricle is normal in size and function. 7. LA is midly dilated 29-33ml/m2. 8. The right atrium is normal in size. 9. Aortic valve is trileaflet and is mildly thickened. 10. The mitral valve leaflets are mildly thickened. 11. Mild mitral annular calcification present. 12. Mild mitral regurgitation is present. 13. Mild tricuspid regurgitation present. 14. The right ventricular systolic pressure, as measured by Doppler, is 29.40mmHg. 15. Pulmonic valve appears structurally normal. 16. The aortic root is dilated measuring 3.9 cm. 17. Normal inferior vena cava with normal inspiratory collapse consistent with estimated right atrial pressure of 5 mmHg. 18. The pericardium is normal. RECORDS MANAGEMENT DIRECTOR: Jennie Barnes RDCS
[2018-06-26 11:59] LABS: Glucose,Whole Blood 213 mg/dL (75-99)
[2018-06-26] MEDS: INSULIN ASPART 100 UNIT/ML 1 ML 10 ML VIAL SQ SCH ×4 (12:34→21:47)
--- NOTE | 2018-06-26 12:37 | P.NPCON ---
History of Present Illness - Reason for Consult chronic renal failure - History of Present Illness Reason for consultation: Chronic kidney disease History of present illness: Patient is a 63-year-old male seen in renal consultation for chronic kidney disease. Patient has chronic kidney disease stage III with baseline creatinine in the range of 1.3-1.6. Creatinine 1.67 today. Patient presented to the hospital with palpitations and elevated blood pressure. Patient states he took an extra clonidine and his blood pressure was still above 200 systolic. He does have history of a to fibrillation. He is long-standing history of diabetes mellitus. He follows with chinchilla farmer out of [facility]. He currently denies any active chest pain or shortness of breath. No vomiting or diarrhea. Oral intake is good. Admits to good urine output. No hematuria or dysuria. Denies regular use of NSAIDs. He was started on amlodipine this morning. His blood pressures have been quite labile. This morning he was 176/ 81. Denies any headache dizziness or syncopal episodes. He is noted to have diastolic CHF with mild mitral regurgitation and tricuspid regurgitation. He is scheduled for cardiac catheterization tomorrow. Vital signs are stable. General: The patient appeared well nourished and normally developed. HEENT: Head exam is unremarkable. Neck is without jugular venous distension. LUNGS: Lungs are clear to auscultation and percussion. Breath sounds decreased. HEART: Rate and Rhythm are regular. First and second heart sounds normal. No murmurs, rubs or gallops. ABDOMEN: Abdominal exam reveals normal bowel sounds. Non-tender and non- distended. No evidence of peritonitis. EXTREMITITES: No clubbing, cyanosis, or edema. Past Medical History Past Medical History: Atrial Fibrillation, Diabetes Mellitus, GERD/Reflux, Hyperlipidemia, Hypertension, Skin Disorder Additional Past Medical History / Comment(s): HAS SKIN RASH, ITCHING -celiac disease, past asbestos exposure History of Any Multi-Drug Resistant Organisms: None Reported Past Surgical History: Cholecystectomy, Heart Catheterization With Stent, Tonsillectomy Additional Past Surgical History / Comment(s): 2 STENTS, cataracts Past Anesthesia/Blood Transfusion Reactions: No Reported Reaction Date of Last Stent Placement:: 2010 Past Psychological History: No Psychological Hx Reported Additional Psychological History / Comment(s): lives at home with his , worked for [employer], no service. pt is independant,no cane or walker and no outside services. Smoking Status: Current every day smoker Past Alcohol Use History: None Reported Additional Past Alcohol Use History / Comment(s): patient stated smoking about 1 pack per day, started 40 years ago. and does not drink alcohol anymore. Past Drug Use History: None Reported - Past Family History Mother Family Medical History: Diabetes Mellitus Father Family Medical History: Myocardial Infarction (CT) Brother(s) Family Medical History: Myocardial Infarction (CT) Medications and Allergies Home Medications Medication Instructions Recorded Confirmed Type Aspirin 81 mg PO DAILY 08/18/14 06/25/18 History Insulin Detemir [Levemir] 26 unit SQ HS 08/18/14 06/25/18 History Omeprazole [PriLOSEC] 20 mg PO AC-BRKFST 08/18/14 06/25/18 History Warfarin [Coumadin] 5 mg PO DIRECTED 08/18/14 06/25/18 History Fluticasone Nasal [place] [Flonase 2 spray EA NOSTRIL BID 05/12/16 06/25/18 History Nasal [place]] Sotalol HCl [Sotalol] 160 mg PO BID #0 05/13/16 06/25/18 Rx Pravastatin Sodium [Pravachol] 40 mg PO HS 12/06/17 06/25/18 History INSULIN LISPRO (humaLOG) [humaLOG] See Protocol SQ AC-TID 06/04/18 06/25/18 History Magnesium Oxide 400 mg PO DAILY 06/04/18 06/25/18 History Warfarin [Coumadin] 2.5 mg PO DIRECTED 06/04/18 06/25/18 History Losartan [Cozaar] 50 mg PO DAILY #30 tab 06/07/18 06/25/18 Rx hydrALAZINE HCL [Apresoline] 100 mg PO TID #90 tab 06/07/18 06/25/18 Rx Furosemide [Lasix] 40 mg PO DAILY 06/25/18 06/25/18 History Allergies Allergy/AdvReac Type Severity Reaction Status Date / Time amoxicillin Allergy Anaphylaxis Verified 06/25/18 19:05 cephalexin monohydrate Allergy Rash/Hives Verified 06/25/18 19:05 [From Keflex] clindamycin Allergy Rash/Hives Verified 06/25/18 19:05 gluten Allergy Unknown Verified 06/25/18 19:05 Penicillins Allergy Rash/Hives Verified 06/25/18 19:05 Sulfa (Sulfonamide Allergy Anaphylaxis Verified 06/25/18 19:05 Antibiotics) sulfamethoxazole Allergy Anaphylaxis Verified 06/25/18 19:05 [From Bactrim] trimethoprim [From Bactrim] Allergy Anaphylaxis Verified 06/25/18 19:05 Physical Exam Vitals: Vital Signs Temp Pulse Pulse Resp BP BP Pulse Ox 06/26/18 08:00 98.3 F 56 L 18 176/81 96 06/26/18 05:21 97.2 F L 54 L 18 163/77 96 06/26/18 04:14 58 L 18 119/71 99 06/26/18 03:00 58 L 18 158/75 99 06/25/18 23:08 97.7 F 56 L 18 158/74 97 06/25/18 22:05 58 L 18 179/76 96 06/25/18 21:50 59 L 18 186/84 96 06/25/18 20:20 56 L 18 176/82 97 06/25/18 17:03 98.0 F 56 L 18 171/78 97 Intake and Output 06/25/18 06/26/18 06/26/18 22:59 06:59 14:59 Intake Total 800 236 Output Total 300 600 Balance 500 -364 Intake: Intake, IV Titration 800 Amount Sodium Chloride 0.9% 1, 800 000 ml @ 100 mls/hr IV . Q10H [facility] Rx#:[id number] Oral 236 Output: Urine 300 600 Other: Weight 83.007 kg 82.8 kg Results - Lab Results Most recent lab results Calcium 8.9 mg/dL (8.4-10.2) 06/25/18 19:31 Phosphorus 3.8 mg/dL (2.5-4.5) 06/25/18 19:31 Magnesium 1.9 mg/dL (1.6-2.3) 06/25/18 19:31 06/25/18 19:31 06/25/18 19:31 Assessment and Plan Plan: Assessment: 1. Chronic kidney disease stage III with baseline creatinine in the range of 1.3-1.5. Etiology is diabetic kidney disease. 2. Mild nonoliguric acute kidney injury mostly prerenal secondary to hemodynamic instability. 3. Insulin-dependent diabetes mellitus. 4. Hypertension with chronic kidney disease. 5. Diastolic CHF with mild mitral and tricuspid regurgitation. 6. Nephrotic range proteinuria likely secondary to underlying diabetic kidney disease. Patient follows with a chinchilla farmer out of [facility]. 7. History of atrial fibrillation. 8. Non-ST elevated myocardial infarction. Scheduled for cardiac catheterization tomorrow. Plan: Start normal saline at 75 mL an hour and will continue for 12 hours post cardiac catheterization. Agree with holding Lasix for now. Continue with current antihypertensives. Continue to monitor renal function and urine output closely. Thank you for the consultation. I will continue to follow the patient is due during his hospital stay.
--- NOTE | 2018-06-26 13:41 | PN ---
PROGRESS NOTE DATE OF SERVICE: 06/26/2018 This 63-year-old gentleman admitted with acute non-ST segment elevation myocardial infarction slated to have cardiac catheterization by Cardiology. No chest pain or palpitations. Patient had baseline stage III kidney disease. No fever. No cough. No chest pain or palpitation. PHYSICAL EXAMINATION: On exam, alert and oriented x3. The pulse is 56, blood pressure 176/81, respiration 18, temperature 98.3, pulse ox 97% on room air: HEENT: Conjunctivae normal. NECK: No jugular venous distention. CARDIOVASCULAR: S1 and S2 muffled. RESPIRATORY: Breath sounds diminished at the bases. No rhonchi, no crackles. ABDOMEN: Soft, nontender. LEGS: No edema. NERVOUS SYSTEM: No focal deficits. LABS: CBC within normal limits. INR 2.6. Glucose 213. Troponin 0.132. ASSESSMENT: 1. Chest pain, epigastric discomfort, acute non ST-segment elevation myocardial infarction with troponin 0.226. 2. Paroxysmal atrial fibrillation. 3. Increased creatinine with chronic kidney disease stage III. 4. Diabetes mellitus type 2. 5. Gastroesophageal reflux disease. 6. Hypertension. 7. Hyperlipidemia. 8. History of cholecystectomy. 9. History of coronary artery disease, stent. 10.History of continued ongoing nicotine dependence. RECOMMENDATIONS AND DISCUSSION: Recommend to continue current medications. Continue symptomatic treatment. Otherwise monitor fluid electrolyte balance closely. as per Cardiology. I would also recommend Nephrology evaluation as well. Further recommendations to follow. MMODL / IJN: [id number] / MTDD
[2018-06-26 14:59] LABS: Hemoglobin A1C 6.8 % (4.0-6.0)
[2018-06-26 16:26] LABS: Glucose,Whole Blood 112 mg/dL (75-99)
[2018-06-26] MEDS ORDERED: PRAVASTATIN SODIUM 40 MG TAB PO SCH (21:00)
[2018-06-26] MEDS: INSULIN DETEMIR 100 UNIT/ML 10 ML VIAL SQ SCH (21:44)
[2018-06-26 22:52] LABS: Glucose,Whole Blood 159 mg/dL (75-99)
[2018-06-27 05:58] LABS: Glucose,Whole Blood 76 mg/dL (75-99)
[2018-06-27] MEDS ORDERED: ASPIRIN 325 MG TAB PO STA (06:03)
[2018-06-27] MEDS ORDERED: ATORVASTATIN 80 MG TAB PO STA (06:03)
[2018-06-27] MEDS: MAGNESIUM OXIDE 400 MG TAB PO SCH (06:04)
[2018-06-27] MEDS: SOTALOL 80 MG TAB PO SCH ×2 (06:04→21:01)
[2018-06-27] MEDS: hydrALAZINE HCL 50 MG TAB PO SCH ×3 (06:04→21:01)
[2018-06-27] MEDS: PANTOPRAZOLE 40 MG TABLET PO SCH (06:05)
[2018-06-27] MEDS: LOSARTAN 50 MG TAB PO SCH (06:05)
[2018-06-27] MEDS: amLODIPine 5 MG TAB PO SCH ×2 (06:05→19:01)
[2018-06-27] MEDS: INSULIN ASPART 100 UNIT/ML 1 ML 10 ML VIAL SQ SCH ×4 (06:07→21:13)
[2018-06-27] MEDS: SODIUM CHLORIDE 0.9% 1,000 ML IV SCH ×3 (06:07→20:12)
[2018-06-27] MEDS: FLUTICASONE 50MCG/SPRAY NASAL 16GM EA NOSTRIL SCH ×2 (06:11→21:03)
[2018-06-27] MEDS: ASPIRIN 81 MG PO SCH (06:11)
[2018-06-27 06:57] LABS: Basophils % (A) 1 %; Eosinophils # (A) 0.2 k/uL (0-0.7); Eosinophils % (A) 3 %; HCT 41.8 % (39.0-53.0); Lymphocytes # (A) 1.1 k/uL (1.0-4.8); Lymphocytes % (A) 17 %; MCH 29.1 pg (25.0-35.0); MCHC 31.1 g/dL (31.0-37.0); MCV 93.8 fL (80.0-100.0); Mean Platelet Volume 8.5; Monocytes # (A) 0.5 k/uL (0-1.0); Monocytes % (A) 7 %; Neutrophils # (A) 4.9 k/uL (1.3-7.7); Neutrophils % (A) 71 %; Platelet Count 181 k/uL (150-450); RBC 4.45 m/uL (4.30-5.90); RDW 13.8 % (11.5-15.5); WBC 6.9 k/uL (3.8-10.6)
[2018-06-27 07:04] LABS: Prothrombin Time 18.1 sec (9.0-12.0)
[2018-06-27 07:08] LABS: Calcium 8.6 mg/dL (8.4-10.2); Potassium 4.4 mmol/L (3.5-5.1)
[2018-06-27] MEDS ORDERED: LIDOCAINE 1% INJ 10MG/ML (20 ML MDV) ONE (07:10)
[2018-06-27] MEDS ORDERED: fentaNYL (PF) 50 MCG/ML 2 ML AMP ONE (07:10)
[2018-06-27] MEDS ORDERED: diphenhydrAMINE 50 MG/ML 1 ML VIAL ONE (07:10)
[2018-06-27] MEDS ORDERED: HEPARIN SODIUM 1,000 UN/ML (10ML VL) ONE (07:39)
[2018-06-27] MEDS ORDERED: VERAPAMIL 2.5 MG/ML 2 ML AMP ONE (07:39)
[2018-06-27] MEDS ORDERED: IV FLUID CONTINUATION 1,000 ML IV ONE (07:47)
[2018-06-27] MEDS ORDERED: diphenhydrAMINE 50 MG/ML 1 ML VIAL IVP ONE (08:00)
[2018-06-27] MEDS ORDERED: fentaNYL (PF) 50 MCG/ML 2 ML AMP IVP ONE (08:01)
[2018-06-27] MEDS ORDERED: LIDOCAINE 1% INJ 10MG/ML (20 ML MDV) SQ ONE (08:03)
[2018-06-27] MEDS ORDERED: VERAPAMIL SYRINGE (5 MG/10 ML) INTRAARTER ONE (08:05)
[2018-06-27] MEDS ORDERED: VERAPAMIL 2.5 MG/ML 2 ML AMP IVP ONE (08:05)
[2018-06-27] MEDS ORDERED: CLOPIDOGREL 75 MG TAB ONE (08:16)
[2018-06-27] MEDS ORDERED: BIVALIRUDIN BOLUS 250 MG/50 ML IV ONE (08:20)
[2018-06-27] MEDS ORDERED: BIVALIRUDIN 250 MG in SODIUM CHLORIDE 0.9% 50 ML IV ONE (08:22)
[2018-06-27] MEDS ORDERED: CLOPIDOGREL 75 MG TAB PO ONE (08:23)
[2018-06-27] MEDS ORDERED: IOPAMIDOL-370 125ML BTL INJ ONE (08:39)
[2018-06-27] MEDS ORDERED: IOPAMIDOL-370 100ML BTL INJ ONE (08:45)
[2018-06-27] MEDS ORDERED: ATROPINE SULFATE 0.1 MG/ML 10ML SYRINGE IV PRN (08:56)
[2018-06-27] MEDS ORDERED: RX INFO: IV CONTRAST WAS GIVEN 1 EACH MISC MISCELLANE PRN (08:56)
[2018-06-27] MEDS ORDERED: ZOLPIDEM 5 MG TAB PO PRN (08:56)
[2018-06-27] MEDS ORDERED: NITROGLYCERIN SL TABS 0.4 MG TAB SUBLINGUAL PRN (08:56)
[2018-06-27] MEDS ORDERED: MAG HYDROX/AL HYDROX/SIMETH 30 ML CUP PO PRN (08:56)
[2018-06-27] MEDS ORDERED: SODIUM CHLORIDE 0.9% 1,000 ML IV SCH (09:00)
--- NOTE | 2018-06-27 09:48 | PTCA ---
PERCUTANEOUSTRANS CORORONARY ANGIOGRAPHY Mr. Lieberman is a 63-year-old male with a known history of coronary artery disease, history of hypertension, hyperlipidemia, diabetes mellitus, and chronic tobacco use, who presented with a non ST-segment elevation myocardial infarction, underwent cardiac catheterization, was found to have critical stenosis involving the first diagonal branch. In view of that, recommendation was made regarding angioplasty and stenting. The procedure as well as the risks and the complications were discussed with the patient who is in full understanding and agreement. PROCEDURE: Using the 6-[place] 3.5 guiding catheter a 0.014 balanced medium weight J-wire was advanced across the LAD and positioned distally. Subsequently another 0.014 balanced medium weight J-wire was advanced in position in the first diagonal branch. Following that, a 2.5 x 12 mm Trek balloon was advanced and one inflation at 10 atmospheres was done. Following that, the balloon was removed and attempt to advance a 2.5 x 12 mm Xience [place] stent were unsuccessful. That stent was removed and a 2.0 x 15 mm Resolute [place] stent was advanced, deployed and post dilated at 16 atmospheres. Following that, the balloon was removed and a 2.5 x 12 mm [place] Trek balloon was advanced and one inflation at 14 atmospheres was done. Following that, the balloon and the guidewire were withdrawn back in the guiding catheter. Images were obtained, repeated. Those images reveal stable successful stenting. At that point, the guiding catheter, the balloon and the guidewire were removed. The sheath was removed. Hemostasis was obtained with deployment of a TR band. There was no immediate complication. Patient was returned to his room in stable condition. Of note, the patient received Angiomax per protocol as well as oral loading dose of clopidogrel. He had mild chest discomfort, but no significant EKG changes. RESULTS: Successful stenting of the first diagonal branch with reduction of stenosis from 99% to 0%. RECOMMENDATION: Patient be continued on aspirin, Plavix, beta buddy, and statin. The importance of dual antiplatelet treatment and smoking cessation were discussed with the patient and his family and are in full understanding and agreement. Duration of the procedure is 46 minutes. MMODL / IJN: [id number] /
[2018-06-27] MEDS: NICOTINE 14MG/24HR PATCH TRANSDERM SCH (09:51)
--- NOTE | 2018-06-27 09:54 | CC ---
CARDIAC CATHETERIZATION REPORT Mr. Lieberman is a 63-year-old male with known history of coronary artery disease, hypertension, hyperlipidemia, diabetes mellitus, chronic tobacco use and a history of chronic kidney disease who had an abnormal myocardial perfusion imaging. He has been stable and clinical observation was recommended. He was admitted to the hospital with symptoms of dyspnea and chest discomfort and evidence of non ST-segment elevation myocardial infarction. In view of that, recommendation was made regarding cardiac catheterization. The procedure as well as the risks and the complications were discussed with the patient who is in full understanding and agreement. PROCEDURE: Patient was brought to the laboratory technical specialist in a fasting semi-sedated state after receiving fentanyl and Benadryl and achieving moderate conscious sedated state. Using Xylocaine anesthesia in the Seldinger technique, a 6-Chadian sheath was introduced in the right radial artery. A 5-Chadian 3.5 bend right Jana catheter was introduced in the system. Subsequently, that catheter was exchanged to a 6-Chadian FL 3.5 guiding catheter. Images of the left coronary system were obtained. That catheter was used to cross the aortic valve and pressures were calculated. Following that, angioplasty and stenting of the diagonal branch was performed following that catheter and sheaths were removed. Hemostasis was obtained with deployment of a TR band. There was no immediate complication. Patient was returned to his room in stable condition. Of note, the patient received intra-arterial verapamil. FINDINGS: FLUOROSCOPY: There was severe calcification involving the left circumflex and left anterior descending artery. LEFT MAIN: This is a short size vessel by bifurcating immediately to the left anterior descending artery and left circumflex. The left main coronary artery has no evidence of high-grade stenosis. LEFT ANTERIOR DESCENDING ARTERY: This is a large-sized vessel reaching to the apex with a wraparound apex segment giving rise to a large diagonal branch proximally. The proximal LAD is heavily calcified with a 20% to 30% plaque proximally. The diagonal branch stented segment proximally has a 99% in-stent restenosis. The rest of the vessel has no high-grade stenosis. LEFT CIRCUMFLEX: This is a dominant vessel large in caliber bifurcating distally PDA and posterolateral segment branches. The stented segment in the distal left circumflex in PDA is patent. The first obtuse marginal branch is heavily calcified and has 70% stenosis in the ostium. There is diffuse intimal disease throughout the vessel. RIGHT CORONARY ARTERY: Right coronary artery was not cannulated. 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 LEFT VENTRICULOGRAM: Left ventriculogram was not performed. HEMODYNAMICS: There was no gradient across the aortic valve. The left ventricular end- diastolic pressure was 10 mmHg. CONCLUSION: 1. Calcified coronary arteries. 2. Critical stenosis in the proximal first diagonal branch. 3. Moderate disease in the first obtuse marginal branch. 4. Dominant left circumflex. RECOMMENDATION: In view of finding anatomy, I have recommended proceeding with angioplasty and stenting of the diagonal branch. The procedure as well as the risks and the complication were discussed with the patient who is in full understanding and agreement. MMODL / IJN: [id number] /
[2018-06-27 11:46] LABS: Glucose,Whole Blood 282 mg/dL (75-99)
--- NOTE | 2018-06-27 12:13 | P.PN ---
Subjective Patient is seen in follow-up for acute kidney injury on chronic kidney disease. Patient has chronic kidney disease stage III with baseline creatinine in the range of 1.3-1.5 secondary to diabetic kidney disease. Renal function is mildly improved today and creatinine is 1.57. He is currently resting in bed. Denies chest pain or shortness of breath. Patient had cardiac catheterization done this morning and had a stent placed to the first diagonal branch. Vital signs are stable. General: The patient appeared well nourished and normally developed. HEENT: Head exam is unremarkable. Neck is without jugular venous distension. LUNGS: Lungs are clear to auscultation and percussion. Breath sounds decreased. HEART: Rate and Rhythm are regular. First and second heart sounds normal. No murmurs, rubs or gallops. ABDOMEN: Abdominal exam reveals normal bowel sounds. Non-tender and non- distended. No evidence of peritonitis. EXTREMITITES: No clubbing, cyanosis, or edema. Objective - Vital Signs Vital signs: Vital Signs Temp 96.7 F L 06/27/18 04:55 Pulse 54 L 06/27/18 07:01 Resp 18 06/27/18 07:01 BP 184/86 06/27/18 07:01 Pulse Ox 96 06/27/18 07:01 Intake & Output 06/26/18 06/27/18 06/27/18 18:59 06:59 18:59 Intake Total 976 800 120 Output Total 1700 1750 Balance -724 -950 120 Weight 81.2 kg Intake: IV 120 Intake, IV Titration 800 Amount Sodium Chloride 0.9% 1, 800 000 ml @ 100 mls/hr IV . Q10H [facility] Rx#:[id number] Oral 976 Output: Urine 1700 1750 Other: Voiding Method Urinal - Labs CBC & Chem 7: 06/27/18 06:41 06/27/18 06:41 Labs: Abnormal Lab Results - Last 24 Hours (Table) 06/25/18 06/26/18 06/26/18 Range/Units 19:31 16:23 21:09 PT (9.0-12.0) sec INR (<1.2) Chloride (98-107) mmol/L BUN (9-20) mg/dL Creatinine (0.66-1.25) mg/dL POC Glucose (mg/dL) 112 H 159 H (75-99) mg/dL Hemoglobin A1c 6.8 H (4.0-6.0) % 06/27/18 06/27/18 06/27/18 Range/Units 06:41 06:41 11:38 PT 18.1 H (9.0-12.0) sec INR 2.0 H (<1.2) Chloride 108 H (98-107) mmol/L BUN 35 H (9-20) mg/dL Creatinine 1.57 H (0.66-1.25) mg/dL POC Glucose (mg/dL) 282 H (75-99) mg/dL Hemoglobin A1c (4.0-6.0) % Assessment and Plan Plan: Assessment: 1. Chronic kidney disease stage III with baseline creatinine in the range of 1.3-1.5. Etiology is diabetic kidney disease. 2. Mild nonoliguric acute kidney injury mostly prerenal secondary to hemodynamic instability. Improved. 3. Insulin-dependent diabetes mellitus. 4. Hypertension with chronic kidney disease. Better today. 5. Diastolic CHF with mild mitral and tricuspid regurgitation. 6. Nephrotic range proteinuria likely secondary to underlying diabetic kidney disease. Patient follows with a probate clerk out of [place], [place]. 7. History of atrial fibrillation. 8. Non-ST elevated myocardial infarction status post cardiac catheterization on June 27 with stent placed to the first diagonal branch. Plan: Hep-Lock fluids at 7 PM today. Continue to hold Lasix for now. Increase amlodipine to 5 mg twice daily. Hold if systolic blood pressure less than 120. Continue to monitor renal function and urine output closely.
[2018-06-27 14:00] VITALS: BMI 26.4
--- NOTE | 2018-06-27 14:48 | P.PN ---
Subjective Progress Note Date: 06/27/18 Progress note being dictated for Dr. Link. Interval history: This is a 63-year-old gentleman admitted with acute non- STEMI. Underwent cardiac catheterization this morning with angioplasty and stent to the first diagonal branch. Tolerated procedure well. Telemetry sinus rhythm. Chronic kidney disease, maintained on IV fluid hydration. Creatinine improving to 1.57. Antihypertensives adjusted as per nephrology with Norvasc increased. Denies chest pain, palpitations or shortness of breath. INR 2.0. Objective - Vital Signs Vital signs: Vital Signs Temp 96.7 F L 06/27/18 04:55 Pulse 54 L 06/27/18 07:01 Resp 18 06/27/18 07:01 BP 184/86 06/27/18 07:01 Pulse Ox 96 06/27/18 07:01 Intake & Output 06/26/18 06/27/18 06/27/18 18:59 06:59 18:59 Intake Total 976 800 120 Output Total 1700 1750 Balance -724 -950 120 Weight 81.2 kg Intake: IV 120 Intake, IV Titration 800 Amount Sodium Chloride 0.9% 1, 800 000 ml @ 100 mls/hr IV . Q10H [facility] Rx#:[id number] Oral 976 Output: Urine 1700 1750 Other: Voiding Method Urinal - Exam PHYSICAL EXAM: VITAL SIGNS: [As above] GENERAL: Sitting up in bed, no acute distress HEENT: Conjunctivae normal. eyes normal. Oral mucosa moist NECK: No JVD. No thyroid enlargement. No LNs CARDIOVASCULAR: S1, S2 muffled. No murmur RESPIRATION: Breath sounds diminished in the bases. No rhonchi or crackles ABDOMEN: Soft, nontender . No guarding. no masses palpable. Bowel sounds heard. LEGS: No edema. no swelling PSYCHIATRY: Alert and oriented -3, mood and affect normal. NERVOUS SYSTEM: Cranial N 2-12 grossly normal.No focal deficits. - Labs CBC & Chem 7: 06/27/18 06:41 06/27/18 06:41 Labs: Abnormal Lab Results - Last 24 Hours (Table) 06/25/18 06/26/18 06/26/18 Range/Units 19:31 16:23 21:09 PT (9.0-12.0) sec INR (<1.2) Chloride (98-107) mmol/L BUN (9-20) mg/dL Creatinine (0.66-1.25) mg/dL POC Glucose (mg/dL) 112 H 159 H (75-99) mg/dL Hemoglobin A1c 6.8 H (4.0-6.0) % 06/27/18 06/27/18 06/27/18 Range/Units 06:41 06:41 11:38 PT 18.1 H (9.0-12.0) sec INR 2.0 H (<1.2) Chloride 108 H (98-107) mmol/L BUN 35 H (9-20) mg/dL Creatinine 1.57 H (0.66-1.25) mg/dL POC Glucose (mg/dL) 282 H (75-99) mg/dL Hemoglobin A1c (4.0-6.0) % Assessment and Plan Assessment: 1. Acute non-STEMI, status post cardiac catheterization with angioplasty and stenting of the first diagonal branch. 2. Proximal atrial fibrillation, currently sinus rhythm. 3. Acute on chronic renal failure, stage III, acute prerenal, chronic secondary to diabetes. 4. Diabetes mellitus type 2 5. Gastroesophageal reflux disease 6. Hypertension 7. Hyperlipidemia 8. Ongoing nicotine dependence 9. Chronic CHF , DIastolic dysfunction Plan: Continue on current medication regime , statin, beta buddy, dual antiplatelet tx with Plavix and aspirin, monitoring and symptomatic treatment. Norvasc increased as per nephrology. Lasix remains on hold. Maintain IV fluid hydration, close monitoring of renal function with repeat labs ordered for a.m. smoking cessation readdressed .discharge planning in progress for tomorrow. The impression and plan of care has been dictated as directed. : I performed a history and examination of this patient, discussed the same with the dictator. I agree with the dictator's note ,documented as a scribe. Any additional findings or plans will be noted.
[2018-06-27 15:32] LABS: Glucose,Whole Blood 50 mg/dL (75-99)
[2018-06-27 15:46] LABS: Glucose,Whole Blood 82 mg/dL (75-99)
[2018-06-27 16:51] LABS: Glucose,Whole Blood 129 mg/dL (75-99)
[2018-06-27] MEDS: INSULIN DETEMIR 100 UNIT/ML 10 ML VIAL SQ SCH (21:16)
[2018-06-27 21:21] LABS: Glucose,Whole Blood 236 mg/dL (75-99)
[2018-06-28 06:11] LABS: Glucose,Whole Blood 79 mg/dL (75-99)
[2018-06-28 06:24] LABS: Basophils % (A) 1 %; Eosinophils # (A) 0.2 k/uL (0-0.7); Eosinophils % (A) 3 %; HCT 42.1 % (39.0-53.0); HGB 13.2 gm/dL (13.0-17.5); Lymphocytes # (A) 1.1 k/uL (1.0-4.8); Lymphocytes % (A) 16 %; MCH 29.3 pg (25.0-35.0); MCHC 31.4 g/dL (31.0-37.0); MCV 93.3 fL (80.0-100.0); Mean Platelet Volume 8.4; Monocytes # (A) 0.5 k/uL (0-1.0); Monocytes % (A) 7 %; Neutrophils # (A) 5.2 k/uL (1.3-7.7); Neutrophils % (A) 73 %; Platelet Count 193 k/uL (150-450); RBC 4.51 m/uL (4.30-5.90); RDW 13.7 % (11.5-15.5); WBC 7.1 k/uL (3.8-10.6)
[2018-06-28 06:31] LABS: INR 1.6 (<1.2); Prothrombin Time 14.8 sec (9.0-12.0)
[2018-06-28 06:39] LABS: Calcium 8.6 mg/dL (8.4-10.2); Potassium 4.5 mmol/L (3.5-5.1)
[2018-06-28] MEDS: SODIUM CHLORIDE 0.9% 1,000 ML IV SCH (07:29)
[2018-06-28] MEDS: INSULIN ASPART 100 UNIT/ML 1 ML 10 ML VIAL SQ SCH (07:30)
[2018-06-28] MEDS: ASPIRIN 81 MG PO SCH (07:57)
[2018-06-28] MEDS: amLODIPine 5 MG TAB PO SCH (07:57)
[2018-06-28] MEDS: LOSARTAN 50 MG TAB PO SCH (07:58)
[2018-06-28] MEDS: PANTOPRAZOLE 40 MG TABLET PO SCH (07:58)
[2018-06-28] MEDS: hydrALAZINE HCL 50 MG TAB PO SCH (07:58)
[2018-06-28] MEDS: SOTALOL 80 MG TAB PO SCH (07:58)
[2018-06-28] MEDS: MAGNESIUM OXIDE 400 MG TAB PO SCH (07:58)
[2018-06-28] MEDS: FLUTICASONE 50MCG/SPRAY NASAL 16GM EA NOSTRIL SCH (07:58)
[2018-06-28] MEDS: NICOTINE 14MG/24HR PATCH TRANSDERM SCH (08:25)
--- NOTE | 2018-06-28 08:33 | P.PN ---
Subjective Patient is seen in follow-up for acute kidney injury on chronic kidney disease. Patient has chronic kidney disease stage III with baseline creatinine in the range of 1.3-1.5 secondary to diabetic kidney disease. Renal function continues to improve. Creatinine 1.41 today.. He is currently resting in bed. Denies chest pain or shortness of breath. Patient had cardiac catheterization done on June 27 and had a stent placed to the first diagonal branch. Vital signs are stable. General: The patient appeared well nourished and normally developed. HEENT: Head exam is unremarkable. Neck is without jugular venous distension. LUNGS: Lungs are clear to auscultation and percussion. Breath sounds decreased. HEART: Rate and Rhythm are regular. First and second heart sounds normal. No murmurs, rubs or gallops. ABDOMEN: Abdominal exam reveals normal bowel sounds. Non-tender and non- distended. No evidence of peritonitis. EXTREMITITES: No clubbing, cyanosis, or edema. Objective - Vital Signs Vital signs: Vital Signs Temp 98.3 F 06/28/18 03:37 Pulse 54 L 06/28/18 07:26 Resp 16 06/28/18 03:37 BP 143/86 06/28/18 03:37 Pulse Ox 98 06/28/18 03:37 Intake & Output 06/27/18 06/28/18 06/28/18 18:59 06:59 18:59 Intake Total 1092 Output Total 625 Balance 1092 -625 Weight 81.2 kg 81.8 kg Intake: IV 120 Intake, IV Titration 500 Amount Sodium Chloride 0.9% 1, 500 000 ml In Empty Bag 1 bag @ 1 ML/KG/HR 82.8 mls/hr IV .Q12H5M [facility] Rx#: [id number] Oral 472 Output: Urine 625 Other: Voiding Method Urinal # Voids 1 1 - Labs CBC & Chem 7: 06/28/18 06:06 06/28/18 06:06 Labs: Abnormal Lab Results - Last 24 Hours (Table) 06/27/18 06/27/18 06/27/18 Range/Units 11:38 15:30 16:26 PT (9.0-12.0) sec INR (<1.2) Chloride (98-107) mmol/L BUN (9-20) mg/dL Creatinine (0.66-1.25) mg/dL Glucose (74-99) mg/dL POC Glucose (mg/dL) 282 H 50 L 129 H (75-99) mg/dL 06/27/18 06/28/18 06/28/18 Range/Units 21:09 06:06 06:06 PT 14.8 H (9.0-12.0) sec INR 1.6 H (<1.2) Chloride 108 H (98-107) mmol/L BUN 27 H (9-20) mg/dL Creatinine 1.41 H (0.66-1.25) mg/dL Glucose 65 L (74-99) mg/dL POC Glucose (mg/dL) 236 H (75-99) mg/dL Assessment and Plan Plan: Assessment: 1. Chronic kidney disease stage III with baseline creatinine in the range of 1.3-1.5. Etiology is diabetic kidney disease. 2. Mild nonoliguric acute kidney injury mostly prerenal secondary to hemodynamic instability. Improved. 3. Insulin-dependent diabetes mellitus. 4. Hypertension with chronic kidney disease. Better today. 5. Diastolic CHF with mild mitral and tricuspid regurgitation. 6. Nephrotic range proteinuria likely secondary to underlying diabetic kidney disease. Patient follows with a developmental electronics assembler out of [place], [place]. 7. History of atrial fibrillation. 8. Non-ST elevated myocardial infarction status post cardiac catheterization on June 27 with stent placed to the first diagonal branch. Plan: Fluids were discontinued last night. Dose of amlodipine was increased yesterday. Continue with current antihypertensives. Anticipate discharge soon. He will follow-up with his developmental electronics assembler in the next 1-2 weeks.
[2018-06-28] MEDS ORDERED: ATORVASTATIN 40 MG TAB PO SCH (09:00)
[2018-06-28] MEDS ORDERED: CLOPIDOGREL 75 MG TAB PO SCH (09:00)
[2018-06-28] MEDS ORDERED: amLODIPine 5 MG TAB PO SCH (09:00)
--- NOTE | 2018-06-28 09:22 | PN ---
PROGRESS NOTE Mr. Lieberman is a 63-year-old male who presented with [id number] elevation myocardial infarction, underwent cardiac catheterization and stenting of his diagonal branch. He is doing well this morning. His breathing has been stable. He has been ambulating without difficulty. Denying any dizziness, palpitation, denies any nausea. He continues to be on aspirin once a day, Lipitor 40 mg daily, Plavix 75 mg daily, hydralazine 100 mg 3 times a day, amlodipine 5 mg twice a day, losartan 50 mg daily, nicotine patch. PHYSICAL EXAMINATION: Blood pressure 143/80 with a heart rate in the 50s. LUNGS: Clear. HEART: Regular rate and rhythm. S1, S2. No S3. No rub. ABDOMEN: Soft, nontender. EXTREMITIES: No edema. Radial pulse intact. IMPRESSION: 1. Status post stenting of the diagonal branch with non ST-segment elevation myocardial infarction. 2. Hypertension. 3. Hyperlipidemia. 4. Chronic kidney disease. 5. Chronic tobacco use. RECOMMENDATION: His renal functions are stable. His BUN and creatinine 27 and 1.41 today. His INR is 1.6. I will cut down the dose of the amlodipine 5 mg daily. Patient is concerned that it has caused him symptoms in the past. He can resume his Coumadin on the prior dose. Follow his INR in 4 weeks. I will stop his aspirin and continue on Plavix and he will be followed in 1 week. FRANCISCOL / CRUZN: [id number] /
[2018-06-28 11:00] VITALS: BP 165/81; PULSE 55; RESP 18; TEMP 98.6
--- NOTE | 2018-06-28 19:10 | P.DS ---
Providers Date of admission: 06/25/18 21:53 Expected date of discharge: 06/28/18 Attending physician: Pamela Link Consults: 06/25/18 21:53 Consult Physician Urgent Consulting Provider: Zeina Morgan Consult Reason/Comments: nstemi Do you want consulting provider notified?: Yes 06/26/18 12:12 Consult Physician Routine Consulting Provider: Dax Champagne Consult Reason/Comments: crf Do you want consulting provider notified?: Yes 06/27/18 08:56 Consult Physician Routine Consulting Provider: [facility] Consult Reason/Comments: Post Interventional patient Do you want consulting provider notified?: Already Contacted Primary care physician: Ivy Valentine [facility] Course: Final Diagnoses: 1. Acute non-STEMI, status post cardiac catheterization with angioplasty and stenting of the first diagonal branch. 2. Proximal atrial fibrillation, currently sinus rhythm. 3. Acute on chronic renal failure, stage III, acute prerenal, chronic secondary to diabetes. 4. Diabetes mellitus type 2 5. Gastroesophageal reflux disease 6. Hypertension 7. Hyperlipidemia 8. Ongoing nicotine dependence 9. Chronic CHF , DIastolic dysfunction Hospital course:This is a 63-year-old gentleman admitted with acute non-STEMI. Underwent cardiac catheterization with angioplasty and stent to the first diagonal branch. Tolerated procedure well. Telemetry sinus rhythm. Chronic kidney disease, maintained on IV fluid hydration. Creatinine improving ,1.41. Antihypertensives adjusted as per nephrology and cardiology. Significant clinical improvement. Patient has been cleared by all consults for discharge. Patient is being discharged home in a stable condition with guarded prognosis. EXAM: GENERAL: Sitting up in bed, no acute distress CARDIOVASCULAR: S1, S2 muffled. No murmur RESPIRATION: Breath sounds diminished in the bases. No rhonchi or crackles ABDOMEN: Soft, nontender . No guarding. no masses palpable. Bowel sounds heard. PSYCHIATRY: Alert and oriented -3, mood and affect normal. NERVOUS SYSTEM: Cranial N 2-12 grossly normal.No focal deficits. The impression and plan of care has been dictated as directed. : I performed a history and examination of this patient, discussed the same with the dictator. I agree with the dictator's note ,documented as a scribe. Any additional findings or plans will be noted. Time taken: 35 minutes Patient Condition at Discharge: Stable Plan - Discharge Summary New Discharge Prescriptions: New amLODIPine [Norvasc] 5 mg PO DAILY #30 tab Clopidogrel [Plavix] 75 mg PO DAILY #30 tab Nicotine 14Mg/24Hr Patch [Habitrol] 1 patch TRANSDERM DAILY #30 patch Nitroglycerin Sl Tabs [Nitrostat] 0.4 mg SUBLINGUAL Q5M PRN #25 tab PRN Reason: Chest Pain Continue Warfarin [Coumadin] 5 mg PO DIRECTED Insulin Detemir [Levemir] 26 unit SQ HS Fluticasone Nasal [place] [Flonase Nasal [place]] 2 spray EA NOSTRIL BID Sotalol HCl [Sotalol] 160 mg PO BID #0 Pravastatin Sodium [Pravachol] 40 mg PO HS Warfarin [Coumadin] 2.5 mg PO DIRECTED Magnesium Oxide 400 mg PO DAILY INSULIN LISPRO (humaLOG) [humaLOG] See Protocol SQ AC-TID hydrALAZINE HCL [Apresoline] 100 mg PO TID #90 tab Losartan [Cozaar] 50 mg PO DAILY #30 tab Discontinued Omeprazole [PriLOSEC] 20 mg PO AC-BRKFST Aspirin 81 mg PO DAILY Furosemide [Lasix] 40 mg PO DAILY Discharge Medication List Insulin Detemir [Levemir] 26 unit SQ HS 08/18/14 [History] Warfarin [Coumadin] 5 mg PO DIRECTED 08/18/14 [History] Fluticasone Nasal [place] [Flonase Nasal [place]] 2 spray EA NOSTRIL BID 05/12/16 [ History] Sotalol HCl [Sotalol] 160 mg PO BID #0 05/13/16 [Rx] Pravastatin Sodium [Pravachol] 40 mg PO HS 12/06/17 [History] INSULIN LISPRO (humaLOG) [humaLOG] See Protocol SQ AC-TID 06/04/18 [History] Magnesium Oxide 400 mg PO DAILY 06/04/18 [History] Warfarin [Coumadin] 2.5 mg PO DIRECTED 06/04/18 [History] Losartan [Cozaar] 50 mg PO DAILY #30 tab 06/07/18 [Rx] hydrALAZINE HCL [Apresoline] 100 mg PO TID #90 tab 06/07/18 [Rx] Clopidogrel [Plavix] 75 mg PO DAILY #30 tab 06/28/18 [Rx] Nicotine 14Mg/24Hr Patch [Habitrol] 1 patch TRANSDERM DAILY #30 patch 06/28/18 [ Rx] Nitroglycerin Sl Tabs [Nitrostat] 0.4 mg SUBLINGUAL Q5M PRN #25 tab 06/28/18 [Rx ] amLODIPine [Norvasc] 5 mg PO DAILY #30 tab 06/28/18 [Rx] Follow up Appointment(s)/Referral(s): Zeina Morgan MD [STAFF PHYSICIAN] - 07/04/18 1:15 pm (Monday) Ivy Valentine DO [Primary Care Provider] - 07/09/18 9:40 am (Monday) Dax Champagne DO [STAFF PHYSICIAN] - 1 Week Ambulatory/Diagnostic Orders: Complete Blood Count w/diff [LAB.AMB] Time Frame: 3 Days, Location: None Selected Prothrombin Time INR [LAB.AMB] Time Frame: 07/02/18, Location: None Selected Patient Instructions/Handouts: *[facility] - After Heart Catheterization - Feeder Worker Power Unit Operator Instructions, Left Heart Catheterization (DC), Heart Healthy Diet (DC) Activity/Diet/Wound Care/Special Instructions: Blood work- lytes, BUN and Cre. Please have done on Monday prior to seeing Dr. Morgan Discharge Disposition: HOME SELF-CARE
== END 2018-06-28 12:01 | disposition home or self-care (01) | DRG 247 ==
LOC: EC 16:40 → 6SEL 21:53
PROVIDERS: ADMIT Hospitalist; ATTEND Hospitalist
PROC: 027034Z Dilation of Coronary Artery, One Artery with Drug-eluting Intraluminal Device, Percutaneous Approach (ICD-10-PCS; principal; 2018-06-27 07:15)
PROC: 4A023N7 Measurement of Cardiac Sampling and Pressure, Left Heart, Percutaneous Approach (ICD-10-PCS; principal; 2018-06-27 07:15)
PROC: B2111ZZ Fluoroscopy of Multiple Coronary Arteries using Low Osmolar Contrast (ICD-10-PCS; principal; 2018-06-27 07:15)
DX: I21.4 Non-ST elevation (NSTEMI) myocardial infarction (principal); I13.0 Hypertensive heart and chronic kidney disease with heart failure and stage 1 through stage 4 chronic kidney disease, or unspecified chronic kidney disease; I16.1 Hypertensive emergency; I50.32 Chronic diastolic (congestive) heart failure; N17.9 Acute kidney failure, unspecified; E11.22 Type 2 diabetes mellitus with diabetic chronic kidney disease; E78.5 Hyperlipidemia, unspecified; F17.200 Nicotine dependence, unspecified, uncomplicated; I08.1 Rheumatic disorders of both mitral and tricuspid valves; I25.110 Atherosclerotic heart disease of native coronary artery with unstable angina pectoris; I48.0 Paroxysmal atrial fibrillation; K21.9 Gastro-esophageal reflux disease without esophagitis; K90.0 Celiac disease; N18.3 Chronic kidney disease, stage 3 (moderate); Z77.090 Contact with and (suspected) exposure to asbestos; Z79.01 Long term (current) use of anticoagulants; Z79.02 Long term (current) use of antithrombotics/antiplatelets; Z79.4 Long term (current) use of insulin; Z79.82 Long term (current) use of aspirin; Z79.899 Other long term (current) drug therapy; Z82.49 Family history of ischemic heart disease and other diseases of the circulatory system; Z83.3 Family history of diabetes mellitus; Z90.49 Acquired absence of other specified parts of digestive tract; Z88.1 Allergy status to other antibiotic agents; Z88.0 Allergy status to penicillin; Z88.2 Allergy status to sulfonamides; Z88.8 Allergy status to other drugs, medicaments and biological substances; Z79.51 Long term (current) use of inhaled steroids
CPT/HCPCS: 36415; 80048; 80053; 80061; 82550; 82553; 83036; 83735; 84100; 84484; 85025; 85610; 93005; 93306; 93458; 94760; 96361; 96374; 96375; 96376; 99285

== ENCOUNTER 2018-08-26 09:38 | Observation (INO) | payer MEDICARE ==
[2018-08-26] MEDS ORDERED: SODIUM CHLORIDE 0.9% 1,000 ML IV STA (10:10)
[2018-08-26] MEDS ORDERED: NITROGLYCERIN SL TABS 0.4 MG TAB SUBLINGUAL STA (10:10)
--- NOTE | 2018-08-26 10:41 | XR ---
EXAMINATION TYPE: XR chest 2V DATE OF EXAM: 08/26/2018 HISTORY: Chest Pain. REFERENCE: Previous study dated 06/04/2018. FINDINGS: There is chronic apparent elevation right hemidiaphragm. The lungs are clear. Pleural space are clear. The heart is not enlarged. IMPRESSION: NO ACUTE INTRATHORACIC ABNORMALITY.
[2018-08-26 10:57] LABS: Albumin 3.6 g/dL (3.5-5.0); Potassium 4.5 mmol/L (3.5-5.1); Total Bilirubin 0.5 mg/dL (0.2-1.3); Total Protein 6.5 g/dL (6.3-8.2)
[2018-08-26 11:05] LABS: Basophils # (A) 0.1 k/uL (0-0.2); Basophils % (A) 1 %; Eosinophils # (A) 0.2 k/uL (0-0.7); Eosinophils % (A) 2 %; HCT 42.5 % (39.0-53.0); HGB 13.5 gm/dL (13.0-17.5); Lymphocytes # (A) 0.9 k/uL (1.0-4.8); Lymphocytes % (A) 12 %; MCHC 31.7 g/dL (31.0-37.0); MCV 94.5 fL (80.0-100.0); Mean Platelet Volume 7.8; Monocytes # (A) 0.5 k/uL (0-1.0); Monocytes % (A) 7 %; Neutrophils % (A) 77 %; Platelet Count 191 k/uL (150-450); RDW 13.7 % (11.5-15.5); WBC 7.8 k/uL (3.8-10.6)
[2018-08-26 11:20] LABS: Creatine Kinase MB 5.2 ng/mL (0.0-2.4)
[2018-08-26 11:21] LABS: Troponin I 0.037 ng/mL (0.000-0.034)
[2018-08-26 11:22] LABS: INR 2.7 (<1.2); Partial Thromboplastin Time 34.9 sec (22.0-30.0); Prothrombin Time 24.6 sec (9.0-12.0)
--- NOTE | 2018-08-26 11:42 | ED ---
Chest Pain HPI - General Chief Complaint: Chest Pain Stated Complaint: Pressure in Chest, Congested Time Seen by Provider: 08/26/18 09:46 Source: patient, RN notes reviewed, old records reviewed Mode of arrival: ambulatory Limitations: no limitations - History of Present Illness Initial Comments: This is a 63-year-old male with a history of heart disease and stents who presents today with complaints of retrosternal chest pain 2-3/10 severity he also complains some epigastric pain along with it. He states he also had palpitations. He states it started at 5 PM yesterday with some gastric area discomfort also states his blood pressure is been labile going from the 140s systolic to 202 systolic he has several episodes of this worried to a 0.1 mg of clonidine and then the pressure improved as did his symptoms he did have evaluation by EMS at about 2:30 AM today. He was not transported that time. He is here now with complaints as above. MD Complaint: chest pain - Related Data Home Medications Medication Instructions Recorded Confirmed Insulin Detemir [Levemir] 26 unit SQ HS 08/18/14 06/25/18 Warfarin [Coumadin] 5 mg PO DIRECTED 08/18/14 06/25/18 Fluticasone Nasal [place] [Flonase 2 spray EA NOSTRIL BID 05/12/16 06/25/18 Nasal [place]] Pravastatin Sodium [Pravachol] 40 mg PO HS 12/06/17 06/25/18 INSULIN LISPRO (humaLOG) [humaLOG] See Protocol SQ AC-TID 06/04/18 06/25/18 Magnesium Oxide 400 mg PO DAILY 06/04/18 06/25/18 Warfarin [Coumadin] 2.5 mg PO DIRECTED 06/04/18 06/25/18 Previous Rx's Medication Instructions Recorded Sotalol HCl [Sotalol] 160 mg PO BID #0 05/13/16 Losartan [Cozaar] 50 mg PO DAILY #30 tab 06/07/18 hydrALAZINE HCL [Apresoline] 100 mg PO TID #90 tab 06/07/18 Clopidogrel [Plavix] 75 mg PO DAILY #30 tab 06/28/18 Nicotine 14Mg/24Hr Patch [Habitrol] 1 patch TRANSDERM DAILY #30 patch 06/28/18 Nitroglycerin Sl Tabs [Nitrostat] 0.4 mg SUBLINGUAL Q5M PRN #25 tab 06/28/18 amLODIPine [Norvasc] 5 mg PO DAILY #30 tab 06/28/18 Allergies Allergy/AdvReac Type Severity Reaction Status Date / Time amoxicillin Allergy Anaphylaxis Verified 08/26/18 09:43 cephalexin monohydrate Allergy Rash/Hives Verified 08/26/18 09:43 [From Keflex] clindamycin Allergy Rash/Hives Verified 08/26/18 09:43 gluten Allergy Unknown Verified 08/26/18 09:43 Penicillins Allergy Rash/Hives Verified 08/26/18 09:43 Sulfa (Sulfonamide Allergy Anaphylaxis Verified 08/26/18 09:43 Antibiotics) sulfamethoxazole Allergy Anaphylaxis Verified 08/26/18 09:43 [From Bactrim] trimethoprim [From Bactrim] Allergy Anaphylaxis Verified 08/26/18 09:43 Review of Systems ROS Statement: Those systems with pertinent positive or pertinent negative responses have been documented in the HPI. ROS Other: All systems not noted in ROS Statement are negative. EKG Findings - EKG Results: EKG: interpreted by ERMD (Sinus bradycardia rate of 53. Interval 164 QRS 104 QT since QTC 554/[address] configuration this is consistent with an EKG dated 06/25/18) Past Medical History Past Medical History: Atrial Fibrillation, Diabetes Mellitus, GERD/Reflux, Hyperlipidemia, Hypertension, Skin Disorder Additional Past Medical History / Comment(s): HAS SKIN RASH, ITCHING -celiac disease, past asbestos exposure History of Any Multi-Drug Resistant Organisms: None Reported Past Surgical History: Cholecystectomy, Heart Catheterization With Stent, Tonsillectomy Additional Past Surgical History / Comment(s): 3 STENTS, cataracts Past Anesthesia/Blood Transfusion Reactions: No Reported Reaction Date of Last Stent Placement:: 2010 Past Psychological History: No Psychological Hx Reported Smoking Status: Current every day smoker Past Alcohol Use History: None Reported Past Drug Use History: None Reported - Past Family History Mother Family Medical History: Diabetes Mellitus Father Family Medical History: Myocardial Infarction ([place]) Brother(s) Family Medical History: Myocardial Infarction ([place]) General Exam - General Exam Comments Initial Comments: This is a well-developed well-nourished awake alert oriented 3 male Limitations: no limitations General appearance: alert, in no apparent distress Head exam: Present: atraumatic, normocephalic, normal inspection Eye exam: Present: normal appearance, PERRL, EOMI. Absent: scleral icterus, conjunctival injection, periorbital swelling ENT exam: Present: normal exam, mucous membranes moist Neck exam: Present: normal inspection. Absent: tenderness, meningismus, lymphadenopathy Respiratory exam: Present: normal lung sounds bilaterally. Absent: respiratory distress, wheezes, rales, rhonchi, stridor Cardiovascular Exam: Present: regular rate, normal rhythm, normal heart sounds. Absent: systolic murmur, diastolic murmur, rubs, gallop, clicks GI/Abdominal exam: Present: soft, normal bowel sounds. Absent: distended, tenderness, guarding, rebound, rigid Extremities exam: Present: normal inspection, full ROM, normal capillary refill. Absent: tenderness, pedal edema, joint swelling, calf tenderness Back exam: Present: normal inspection Neurological exam: Present: alert, oriented X3, CN II-XII intact Psychiatric exam: Present: normal affect, normal mood Skin exam: Present: warm, dry, intact, normal color. Absent: rash Course Vital Signs 08/26/18 08/26/18 08/26/18 09:40 10:32 10:59 Temperature 98.2 F Pulse Rate 56 L 57 L Respiratory 16 18 Rate Blood Pressure 174/71 134/70 165/74 O2 Sat by Pulse 98 98 Oximetry 08/26/18 11:45 Temperature Pulse Rate 48 L Respiratory 18 Rate Blood Pressure 157/73 O2 Sat by Pulse 98 Oximetry Chest Pain MDM - MDM Review the imaging shows no acute findings. Patient is pain-free at this time the patient will be admitted with cardiology consultation. Does see Dr. Morgan Disposition Clinical Impression: Unstable angina pectoris, Chest pain Disposition: ADMITTED IP TO THIS HOSP Condition: Stable Referrals: Ivy Valentine DO [Primary Care Provider] - 1-2 days
[2018-08-26] MEDS ORDERED: HEPARIN SODIUM,PORCINE 5,000 UNIT/ML 1 ML VIAL IV ONE (12:12)
[2018-08-26] MEDS ORDERED: NITROGLYCERIN SL TABS 0.4 MG TAB SUBLINGUAL PRN (12:12)
[2018-08-26] MEDS ORDERED: HEPARIN SOD,PORK IN 0.45% NACL 25,000 UNIT in 0.45% NACL 1 500ML.BAG IV SCH (12:15)
[2018-08-26] MEDS ORDERED: WARFARIN 5 MG TAB PO SCH ×2 (12:15)
[2018-08-26 12:57] LABS: Glucose,Whole Blood 203 mg/dL (75-99)
[2018-08-26] MEDS: SODIUM CHLORIDE 0.9% 1,000 ML IV SCH (13:00)
[2018-08-26] MEDS: INSULIN ASPART 100 UNIT/ML 1 ML 10 ML VIAL SQ SCH ×3 (13:09→21:30)
[2018-08-26 13:42] VITALS: BMI 27.8
[2018-08-26] MEDS: hydrALAZINE HCL 50 MG TAB PO SCH ×2 (15:52→20:13)
[2018-08-26 16:29] LABS: Creatine Kinase MB 4.3 ng/mL (0.0-2.4); Troponin I 0.024 ng/mL (0.000-0.034)
[2018-08-26 16:48] LABS: Glucose,Whole Blood 264 mg/dL (75-99)
[2018-08-26] MEDS: NITROGLYCERIN OINT 1 INCH/GM PACKET TOPICAL SCH ×2 (17:01→23:13)
[2018-08-26] MEDS: PANTOPRAZOLE 40 MG/10 ML VIAL IVP SCH ×2 (18:37→20:12)
[2018-08-26] MEDS ORDERED: OXYMETAZOLINE 0.05% NASL SPRAY 1 SPRAY BOTTLE NASAL PRN (19:55)
--- NOTE | 2018-08-26 20:02 | HP ---
HISTORY AND PHYSICAL CHIEF COMPLAINT: Chest pain and chest tightness. HISTORY OF PRESENT ILLNESS: This 63-year-old gentleman with a past medical history of multiple medical problems including atrial fibrillation, and diabetes, GERD, hypertension, hyperlipidemia being followed by Dr. Valentine in the outpatient setting also had CHF with chronic diastolic dysfunction. Patient recently had a cardiac catheterization and stenting of the diagonals. The patient subsequently currently had chest discomfort, in the anterior part of chest. The patient came to [facility] and was admitted for further evaluation and treatment. Patient also had renal failure, being followed by Dr. Taty perez [place]. Dr. Morgan is following the patient from the cardiac point of view. Today the heaviness was 2 to 3/10 in intensity. Patient also has significant epigastric pain and fullness also. The patient also apparently had EGD scheduled with Dr. Atkins, which is not done recently because of the stent placement apparently. There is no history of fever, rigors. No history of headache, loss of consciousness or seizures. PAST HISTORY: Atrial fibrillation, diabetes, GERD, hypertension, hyperlipidemia, recent stent, CAD. MEDICATIONS: Prior to admission include home medications are: 1. Apresoline 100 mg p.o. t.i.d. 2. Coumadin 2.5 mg and 5 mg. 3. Sotalol 160 mg p.o. daily. 4. Pravachol 40 mg. 5. Omeprazole 20 mg daily. 6. Nitrostat 0.4 mg p.r.n. 7. Magnesium oxide 400 mg p.o. daily. 8. Cozaar 50 mg p.o. daily. 9. Levemir 15 units subcu q.h.s. 10.NovoLog scale. 11.HydroDIURIL 12.5 mg p.o. daily. 12.Lasix 20 mg p.o. 13.Flonase 2 sprays b.i.d. 14.Plavix 75 mg p.o. q.h.s. 15.Vitamin D3 1000 daily. ALLERGIES: AMOXICILLIN, CEPHALEXIN, CLINDAMYCIN, GLUTEN, PENICILLIN, SULFA, BACTRIM. FAMILY HISTORY: Diabetes in the family. SOCIAL HISTORY: History of smoking, continued smoking. No history of alcohol intake. REVIEW OF SYSTEMS: ENT: No diminished hearing or vision. CARDIOVASCULAR: As mentioned. RESPIRATORY: As mentioned earlier. GI: As mentioned earlier. no dysuria. Nervous system: No numbness or weakness. ALLERGY/IMMUNOLOGY: No asthma or hayfever. MUSCULOSKELETAL: As mentioned earlier. HEMATOLOGY/ONCOLOGY: No history of anemia. ENDOCRINE: As mentioned earlier. CONSTITUTIONAL: As mentioned earlier. Dermatology: Negative. Rheumatology: Negative. Psychiatry: As mentioned earlier. PHYSICAL EXAMINATION: The patient is alert and oriented times three. Pulse is 50, blood pressure 146/77, respiration 16, temperature 97.4, pulse ox 97% on room air. HEENT: Conjunctivae normal. Oral mucosa moist. Neck is no jugular venous distention. No carotid bruit. No lymph node enlargement. Cardiovascular system: S1, S2 muffled. Respiratory: Breath sounds diminished in the bases. No rhonchi. No crackles. ABDOMEN: Soft. Mild diffuse discomfort. No guarding. No rigidity. No mass palpable. Legs: No edema. No swelling. NERVOUS SYSTEM: Higher functions as mentioned earlier. Moves all 4 limbs. No focal motor or sensory deficits. Lymphatics: No lymph nodes palpable in the neck or axilla. Skin: No ulcer, rash or bleeding. LABS: CBC within normal limits. INR 2.7, creatinine 1.77, glucose 203 and troponin 0.037. ASSESSMENT: 1. Chest discomfort, possible unstable angina, rule out acute non ST segment elevation myocardial infarction. 2. Troponin indeterminate at 0.037. 3. Increased creatinine is 1.77, chronic kidney disease stage III. 4. Diabetes mellitus type 2. 5. Hyponatremia. 6. Coumadin monitoring. 7. Atrial fibrillation history. 8. History of coronary artery disease stent. 9. Gastroesophageal reflux disease. 10.Hypertension. 11.Hyperlipidemia. 12.History of celiac disease. 13.History of asbestos exposure. 14.History of cholecystectomy. 15.History of nicotine dependence. RECOMMENDATIONS AND DISCUSSION: This 63-year-old gentleman who presented with multiple complex medical issues, we will monitor the patient closely, continue the current management, unstable angina protocol. Rule out myocardial infarction. Cardiology consultation. I would also recommend proton pump inhibitors. Continue the rest of the medications. Monitor blood sugars closely. I would also recommend consult gastroenterology with Dr. Atkins for consideration for possible EGD if the patient is not symptomatically better. Overall prognosis guarded. See orders for details. Further recommendations to follow. Discussed with the patient at length. A copy of dictation being forwarded to Dr. Valentine who is the primary physician. MMODL / IJN: [id number] /
[2018-08-26] MEDS: FLUTICASONE 50MCG/SPRAY NASAL 16GM EA NOSTRIL SCH (20:12)
[2018-08-26] MEDS: SOTALOL 80 MG TAB PO SCH (20:13)
[2018-08-26 20:36] LABS: Appearance,Urine Clear (Clear); Bilirubin,Urine Negative (Negative); Blood,Urine Negative (Negative); Color,Urine Light Yellow; Glucose,Urine (UA) Trace (Negative); Hyaline Casts,Urine 1 /lpf (0-2); Ketones,Urine Negative (Negative); Leukocyte Esterase,Urine Negative (Negative); Nitrite,Urine Negative (Negative); Protein,Urine 1+ (Negative); RBC,Urine 1 /hpf (0-5); Specific Gravity,Urine 1.008 (1.001-1.035); Urobilinogen,Urine <2.0 mg/dL (<2.0)
[2018-08-26] MEDS ORDERED: PRAVASTATIN SODIUM 40 MG TAB PO SCH (21:00)
[2018-08-26] MEDS ORDERED: LOSARTAN 50 MG TAB PO SCH (21:00)
[2018-08-26] MEDS ORDERED: INSULIN DETEMIR 100 UNIT/ML 10 ML VIAL SQ SCH (21:00)
[2018-08-26] MEDS ORDERED: MONTELUKAST 10 MG TAB PO SCH (21:00)
[2018-08-26 21:04] LABS: Glucose,Whole Blood 148 mg/dL (75-99)
[2018-08-26 22:58] LABS: Creatine Kinase MB 4.5 ng/mL (0.0-2.4); Troponin I 0.024 ng/mL (0.000-0.034)
[2018-08-27] MEDS: NITROGLYCERIN OINT 1 INCH/GM PACKET TOPICAL SCH (05:57)
[2018-08-27 06:08] LABS: Glucose,Whole Blood 136 mg/dL (75-99)
[2018-08-27] MEDS: INSULIN ASPART 100 UNIT/ML 1 ML 10 ML VIAL SQ SCH ×2 (06:08→12:29)
[2018-08-27 06:13] LABS: Basophils % (A) 0 %; Eosinophils # (A) 0.1 k/uL (0-0.7); Eosinophils % (A) 3 %; HCT 38.2 % (39.0-53.0); Lymphocytes % (A) 19 %; MCH 30.1 pg (25.0-35.0); MCHC 31.4 g/dL (31.0-37.0); MCV 95.7 fL (80.0-100.0); Mean Platelet Volume 7.7; Monocytes # (A) 0.4 k/uL (0-1.0); Monocytes % (A) 7 %; Neutrophils # (A) 3.6 k/uL (1.3-7.7); Neutrophils % (A) 68 %; Platelet Count 151 k/uL (150-450); RDW 13.7 % (11.5-15.5); WBC 5.3 k/uL (3.8-10.6)
[2018-08-27 06:17] LABS: INR 3.4 (<1.2)
[2018-08-27 06:37] LABS: Calcium 8.5 mg/dL (8.4-10.2); Potassium 4.2 mmol/L (3.5-5.1)
[2018-08-27 08:00] VITALS: TEMP 97.2
[2018-08-27] MEDS: FLUTICASONE 50MCG/SPRAY NASAL 16GM EA NOSTRIL SCH (08:00)
[2018-08-27] MEDS: PANTOPRAZOLE 40 MG/10 ML VIAL IVP SCH (08:00)
[2018-08-27] MEDS: NICOTINE 14MG/24HR PATCH TRANSDERM SCH ×2 (08:00→08:03)
[2018-08-27] MEDS ORDERED: DOBUTamine DRIP for NUC MED 500 MG in DEXTROSE/WATER 1 250ML.BAG IV ONE (08:48)
[2018-08-27] MEDS ORDERED: CHOLECALCIFEROL 1,000 UNIT TAB PO SCH (09:00)
[2018-08-27] MEDS ORDERED: HYDROCHLOROTHIAZIDE 12.5 MG CAP PO SCH (09:00)
[2018-08-27] MEDS ORDERED: MAGNESIUM OXIDE 400 MG TAB PO SCH (09:00)
[2018-08-27] MEDS ORDERED: CLOPIDOGREL 75 MG TAB PO SCH (09:00)
[2018-08-27] MEDS ORDERED: LOSARTAN 50 MG TAB PO SCH (09:00)
--- NOTE | 2018-08-27 09:34 | CONS ---
CONSULTATION Jim is a 63-year-old gentleman who was admitted to hospital primarily in the form of epigastric discomfort and having a sense of fullness in his stomach. He has known coronary artery disease and had undergone angioplasty of the diagonal branch on June 27, 2018. He has had stomach upset and was supposed to undergo an EGD, which is currently on hold because of the antiplatelet agents that he is on. He denies chest pain, difficulty in breathing, palpitations, dizziness or syncope. He is currently on Coumadin and INR is 3.4 apparently for paroxysmal atrial fibrillation. He has chronic renal insufficiency. Creatinine is 1.8. He normally runs somewhere between 1.9 and 1.4. He has had 3 sets of cardiac enzymes. The first set was slightly elevated at 0.03. The subsequent 2 sets were 0.02. Rhythm strips show that he is in sinus bradycardia. EKG shows sinus bradycardia with extensive ST-T wave changes, but these changes were noted on prior EKGs done in June. Lipid profile shows that the LDL cholesterol is 77. Given the unexplained epigastric discomfort, mild troponin elevation on his initial presentation, I advised him to undergo a dobutamine echo. If this is negative, he can be discharged home and pursue his workup as outpatient. He states that he used to be on hydrochlorothiazide 25 mg daily and had recently decrease the dose to 12.5, because of the epigastric discomfort and the epigastric discomfort has improved somewhat. PAST MEDICAL HISTORY: Past medical history is significant for coronary artery disease, status post angioplasty, hypertension, insulin-requiring diabetes, and dyslipidemia. CURRENT MEDICATIONS: Current medications include Singulair, hydralazine 100 t.i.d., Coumadin, pravastatin 40 q. daily, sotalol 160 b.i.d., Cozaar, Lasix, HydroDIURIL, Flonase, Plavix, and vitamin D. ALLERGIES: He has multiple drug allergies including PENICILLIN, SULFA, KEFLEX and CLINDAMYCIN. FAMILY HISTORY: Family history is negative for premature coronary artery disease. SOCIAL HISTORY: Social history is negative for current smoking, EtOH abuse, or drug abuse. REVIEW OF SYSTEMS: HEENT is unremarkable. CARDIAC: As described above. RESPIRATORY: Negative. GI: Negative. GENITOURINARY: Significant for chronic renal insufficiency. PSYCHOSOCIAL: Negative. ENDOCRINE: Negative. HEMATOLOGIC: Negative. DERM: Negative. CONSTITUTIONAL: Negative. ONCOLOGICAL: Negative. Rest of the system review is not relevant. PHYSICAL EXAMINATION: On exam, he is comfortable at rest. Afebrile. Heart rate is 50 beats per minute. Blood pressure is 130/62, respiratory rate is 18, O2 sat is 98% on room air. There is no jugular venous distention. Carotid upstroke is normal. There is no bruit. Chest exam reveals good air entry bilaterally. Heart exam reveals first and second heart sounds. No gallop. No murmur. No rub. Abdomen is soft, nontender. Exam of extremities did not reveal any edema. Peripheral pulses are felt. The patient had an echocardiogram at last visit that showed normal LV systolic function. He had a cardiac catheterization and angioplasty of the diagonal branch. ASSESSMENT: 1. Epigastric pain with mild troponin elevation, rule out ischemia in a patient with known coronary artery disease, status post angioplasty. 2. Hypertension. 3. Sinus bradycardia. 4. History of uncontrolled hypertension. PLAN: I will schedule the patient for a dobutamine echo. If there is no ischemia, he does not require further cardiac workup. I am going to stop the hydrochlorothiazide that he is on and optimize the antihypertensives as needed. Will decide on further course of action based on how he evolves. MMODL / IJN: [id number] /
[2018-08-27] MEDS ORDERED: ATROPINE SULFATE 0.1 MG/ML 10ML SYRINGE ONE (11:35)
[2018-08-27 12:05] VITALS: BP 120/75; PULSE 61; RESP 16
[2018-08-27] MEDS: ASPIRIN 325 MG TAB PO SCH ×2 (12:06→12:11)
[2018-08-27 12:07] LABS: Glucose,Whole Blood 121 mg/dL (75-99)
[2018-08-27] MEDS: SOTALOL 80 MG TAB PO SCH (12:07)
[2018-08-27] MEDS: hydrALAZINE HCL 50 MG TAB PO SCH (12:07)
[2018-08-27] MEDS: amLODIPine 5 MG TAB PO SCH ×2 (12:09→12:12)
[2018-08-27] MEDS: SODIUM CHLORIDE 0.9% 1,000 ML IV SCH (12:30)
--- NOTE | 2018-08-27 13:34 | ECHOS ---
STRESS ECHOCARDIOGRAM DATE OF SERVICE: 08/27/2018 INDICATIONS: Palpitations. MEDICATIONS: BASELINE HEART RATE: 48 BASELINE BLOOD PRESSURE: 150/75 MAXIMUM HEART RATE: 126 MAXIMUM BLOOD PRESSURE: 201/69 85% MPHR: 133 100% MPHR: 157 METS: MAXIMUM STAGE REACHED: TOTAL EXERCISE TIME: CLINICAL INFORMATION: Baseline rhythm is sinus mechanism, rate of 48, normal axis and intervals, nonspecific ST-T wave changes, poor R progression. Baseline blood pressure 150/75 mmHg. Patient received an infusion of dobutamine per protocol. Peak rate 126 beats per minute, which is less than his 85% maximum predicted heart rate. Peak blood pressure 201/69 mmHg. Electrocardiograph monitoring revealed no evidence of diagnostic ischemic ST deviation. Occasional PACs and PVCs were noted. Baseline echocardiogram revealed a small area of hypokinesis involving the apical lateral wall with no change at peak infusion. CONCLUSION: 1. Nondiagnostic electrocardiographic dobutamine stress echocardiogram secondary to baseline EKG abnormality. 2. Abnormal stress echocardiogram with small fixed apical lateral wall defect with no evidence of stress-induced ischemia. Those finding are consistent with prior myocardial infarction involving the diagonal branch territory. MMODL / IJN: [id number] /
[2018-08-27 17:00] LABS: Hemoglobin A1C 6.5 % (4.0-6.0)
--- NOTE | 2018-08-27 20:49 | DS ---
DISCHARGE SUMMARY DATE OF SERVICE: 08/27/2018 FINAL DIAGNOSES: 1. Chest pain possible unstable angina, myocardial infarction ruled out, negative stress test. 2. Troponin indeterminate with 0.037 and later became normal. 3. Increased creatinine 1.77, chronic kidney disease stage III. 4. Diabetes mellitus type 2. 5. Hyponatremia. 6. Coumadin monitoring. 7. Atrial fibrillation history. 8. History of coronary artery disease, stent. 9. History of gastroesophageal reflux disease. 10.Hypertension. 11.Hyperlipidemia. 12.History of celiac disease. 13.History of asbestosis exposure. 14.History of cholecystectomy. 15.History of nicotine dependence. DISCHARGE DISPOSITION: The patient is discharged in stable condition with guarded prognosis. HISTORY OF PRESENT ILLNESS: This 63-year-old gentleman with a past medical history of multiple medical problems as mentioned being followed by Dr. Pineda in the outpatient admitted with chest pain, chest tightness. Myocardial infarction ruled out. Cardiology performed a dobutamine stress echo which did not show any reversible ischemia. On exam, vitals are stable. CARDIOVASCULAR: S1, S2. ABDOMEN: Soft. NERVOUS SYSTEM: No focal deficits. Cardiology recommends the patient be discharged. Patient discharged in stable condition with guarded prognosis. DISCHARGE ADVICE: 1. Diet is cardiac. 2. Activity limited until followup. 3. Follow up with Dr. Pineda in 2-3 days. 4. Follow up with back order clerk as advised. 5. Follow with Dr. Brooke Atkins for possible endoscopes. MEDICATION: 1. Vitamin D3 3000 daily. 2. Plavix 75 mg p.o. q.h.s. 3. Fluticasone 1 to 2 sprays daily. 4. Lasix 20 mg p.o. daily. 5. HydroDIURIL 12.5 mg p.o. daily. 6. Levemir 28 units subcu q.h.s. 7. Humalog scale. 8. Magnesium oxide 400 mg p.o. daily. 9. Singular 10 mg p.o. q.h.s. 10.Pravachol 40 mg q.h.s. 11.Coumadin 5 mg and 2.5 mg as before. 12.Omeprazole 100 mg p.o. t.i.d. 13.Cozaar 50 mg p.o. daily. 14.Habitrol 14 daily. 15.Nitrostat 0.4 sublingual p.r.n. 16.Protonix 40 mg p.o. b.i.d. 17.Sotalol 160 mg p.o. b.i.d. Follow up with Cardiology, Nephrology and Dr. Pineda as recommended. MMODL / IJN: [id number] /
[2018-08-28] MEDS ORDERED: PANTOPRAZOLE 40 MG TABLET PO SCH (09:00)
== END 2018-08-27 16:33 | disposition home or self-care (01) ==
LOC: EC 09:38 → 6SEL 12:24
PROVIDERS: ADMIT Internal Medicine; ATTEND Internal Medicine
DX: R07.89 Other chest pain (principal); R10.13 Epigastric pain; R77.8 Other specified abnormalities of plasma proteins; R00.1 Bradycardia, unspecified; E87.1 Hypo-osmolality and hyponatremia; I25.10 Atherosclerotic heart disease of native coronary artery without angina pectoris; K21.9 Gastro-esophageal reflux disease without esophagitis; I48.0 Paroxysmal atrial fibrillation; I13.0 Hypertensive heart and chronic kidney disease with heart failure and stage 1 through stage 4 chronic kidney disease, or unspecified chronic kidney disease; I50.32 Chronic diastolic (congestive) heart failure; N18.3 Chronic kidney disease, stage 3 (moderate); E78.5 Hyperlipidemia, unspecified; E11.22 Type 2 diabetes mellitus with diabetic chronic kidney disease; L98.9 Disorder of the skin and subcutaneous tissue, unspecified; Z77.090 Contact with and (suspected) exposure to asbestos; K90.0 Celiac disease; F17.200 Nicotine dependence, unspecified, uncomplicated; Z79.01 Long term (current) use of anticoagulants; Z79.02 Long term (current) use of antithrombotics/antiplatelets; Z79.4 Long term (current) use of insulin; Z79.890 Hormone replacement therapy; Z79.899 Other long term (current) drug therapy; Z88.0 Allergy status to penicillin; Z88.1 Allergy status to other antibiotic agents; Z88.2 Allergy status to sulfonamides; Z91.02 Food additives allergy status; Z90.49 Acquired absence of other specified parts of digestive tract; Z95.5 Presence of coronary angioplasty implant and graft; Z98.49 Cataract extraction status, unspecified eye; Z83.3 Family history of diabetes mellitus; Z82.49 Family history of ischemic heart disease and other diseases of the circulatory system
CPT/HCPCS: 96376 ×2; 96374; 99285; 36415; 94760; 93005; 93351; 80061; 80053; 80048; 82150; 82550; 82553; 83690; 83735; 84484 ×2; 85025 ×2; 85610 ×2; 85730; 81001; 83036; 71046; G0378 ×2; J1250; J0461; C9113 ×2

== ENCOUNTER 2019-01-16 04:38 | Emergency (ER) | payer MEDICARE ==
[2019-01-16 05:43] LABS: Basophils % (A) 0 %; Eosinophils # (A) 0.2 k/uL (0-0.7); Eosinophils % (A) 2 %; HCT 45.9 % (39.0-53.0); HGB 14.6 gm/dL (13.0-17.5); Lymphocytes # (A) 1.4 k/uL (1.0-4.8); Lymphocytes % (A) 17 %; MCH 29.6 pg (25.0-35.0); MCHC 31.8 g/dL (31.0-37.0); MCV 93.1 fL (80.0-100.0); Mean Platelet Volume 8.1; Monocytes # (A) 0.6 k/uL (0-1.0); Monocytes % (A) 7 %; Neutrophils % (A) 71 %; Platelet Count 228 k/uL (150-450); RBC 4.93 m/uL (4.30-5.90); RDW 15.5 % (11.5-15.5); WBC 8.4 k/uL (3.8-10.6)
--- NOTE | 2019-01-16 05:47 | ED ---
Recheck HPI - General Chief Complaint: Recheck/Abnormal Lab/Rx Stated Complaint: High Potassium, sent by Time Seen by Provider: 01/16/19 05:29 Source: patient Mode of arrival: ambulatory Limitations: no limitations - History of Present Illness Initial Comments: 's patient is a 63-year-old man who presents here and states that he was called tonight because of his potassium being elevated. The patient had seen his physician to have labs today area they are following his potassium because it has been trending higher. The patient states this has been going on since starting one of his blood pressure medications. He states that he also has some underlying kidney disease. Patient states she did not feel like he was having any new symptoms or the last day or 2. MD Complaint: abnormal lab Onset/Timin -: hour(s) Returns Today for: Called Because of Abnormal Lab/Test Symptoms Since Prior Visit: no new symptoms Context: called for abnormal lab result - Related Data Home Medications Medication Instructions Recorded Confirmed Insulin Detemir (Levemir) [Levemir] 28 unit SQ HS 08/18/14 01/16/19 Warfarin [Coumadin] 5 mg PO DIRECTED 08/18/14 01/16/19 Fluticasone Nasal [place] [Flonase 1 spray EA NOSTRIL BID PRN 05/12/16 01/16/19 Nasal [place]] Pravastatin Sodium [Pravachol] 40 mg PO HS 12/06/17 01/16/19 INSULIN LISPRO (humaLOG) [humaLOG] See Protocol SQ AC-TID 06/04/18 01/16/19 Warfarin [Coumadin] 2.5 mg PO DIRECTED 06/04/18 01/16/19 Cholecalciferol [Vitamin D3] 3,000 unit PO DAILY 08/26/18 01/16/19 Clopidogrel [Plavix] 75 mg PO HS 08/26/18 01/16/19 Furosemide [Lasix] 20 mg PO DAILY PRN 08/26/18 01/16/19 Enalapril [Vasotec] 10 mg PO DAILY 01/16/19 01/16/19 Isosorbide Mononitrate ER [Imdur] 30 mg PO DAILY 01/16/19 01/16/19 Pantoprazole [Protonix] 40 mg PO DAILY 01/16/19 01/16/19 cloNIDine HCL [Catapres] 0.2 mg PO TID 01/16/19 01/16/19 Previous Rx's Medication Instructions Recorded Sotalol HCl [Sotalol] 160 mg PO BID #0 05/13/16 hydrALAZINE HCL [Apresoline] 100 mg PO TID #90 tab 06/07/18 Nitroglycerin Sl Tabs [Nitrostat] 0.4 mg SUBLINGUAL Q5M PRN #25 tab 06/28/18 Allergies Allergy/AdvReac Type Severity Reaction Status Date / Time amoxicillin Allergy Anaphylaxis Verified 01/16/19 07:06 cephalexin monohydrate Allergy Rash/Hives Verified 01/16/19 07:06 [From Keflex] clindamycin Allergy Rash/Hives Verified 01/16/19 07:06 gluten Allergy Unknown Verified 01/16/19 07:06 Penicillins Allergy Rash/Hives Verified 01/16/19 07:06 Sulfa (Sulfonamide Allergy Anaphylaxis Verified 01/16/19 07:06 Antibiotics) sulfamethoxazole Allergy Anaphylaxis Verified 01/16/19 07:06 [From Bactrim] trimethoprim [From Bactrim] Allergy Anaphylaxis Verified 01/16/19 07:06 amlodipine AdvReac Swelling Verified 01/16/19 07:06 Review of Systems ROS Statement: Those systems with pertinent positive or pertinent negative responses have been documented in the HPI. ROS Other: All systems not noted in ROS Statement are negative. Constitutional: Denies: fever, chills, weakness Respiratory: Denies: cough, dyspnea Cardiovascular: Reports: palpitations (Patient states he has chronic intermittent atrial fibrillation and has been wearing a electronic device monitor for a number weeks related to this). Denies: chest pain, edema, syncope Gastrointestinal: Reports: constipation. Denies: abdominal pain, vomiting, diarrhea, melena, hematochezia Genitourinary: Denies: dysuria, frequency, hematuria Musculoskeletal: Denies: back pain Skin: Denies: rash Neurological: Denies: headache, weakness, numbness Past Medical History Past Medical History: Atrial Fibrillation, Diabetes Mellitus, GERD/Reflux, Hyperlipidemia, Hypertension, Skin Disorder Additional Past Medical History / Comment(s): HAS SKIN RASH, ITCHING -celiac disease, past asbestos exposure History of Any Multi-Drug Resistant Organisms: None Reported Past Surgical History: Cholecystectomy, Heart Catheterization With Stent, Tonsillectomy Additional Past Surgical History / Comment(s): 3 STENTS, cataracts Past Anesthesia/Blood Transfusion Reactions: No Reported Reaction Date of Last Stent Placement:: 2010 Past Psychological History: No Psychological Hx Reported Smoking Status: Current every day smoker Past Alcohol Use History: None Reported Past Drug Use History: None Reported - Past Family History Mother Family Medical History: Diabetes Mellitus Father Family Medical History: Myocardial Infarction ([place]) Brother(s) Family Medical History: Myocardial Infarction ([place]) General Exam Limitations: no limitations General appearance: alert, in no apparent distress Head exam: Present: atraumatic, normocephalic Eye exam: Present: normal appearance. Absent: scleral icterus, conjunctival injection ENT exam: Present: normal oropharynx Neck exam: Present: normal inspection Respiratory exam: Present: normal lung sounds bilaterally. Absent: respiratory distress, wheezes, rales, rhonchi, stridor Cardiovascular Exam: Present: irregular rhythm (Rate approximately 88 bpm), normal heart sounds. Absent: systolic murmur, diastolic murmur, rubs, gallop GI/Abdominal exam: Present: soft. Absent: distended, tenderness, guarding, rebound, rigid, mass Extremities exam: Present: normal capillary refill. Absent: pedal edema, calf tenderness Back exam: Present: normal inspection. Absent: CVA tenderness (R), CVA tenderness (L) Neurological exam: Present: alert Skin exam: Present: warm, dry, intact, normal color. Absent: rash Course Vital Signs 01/16/19 01/16/19 04:47 06:43 Temperature 98.1 F Pulse Rate 81 46 L Respiratory 20 20 Rate Blood Pressure 117/72 192/104 O2 Sat by Pulse 98 100 Oximetry Medical Decision Making - Lab Data Result diagrams: 01/16/19 05:30 01/16/19 05:30 Lab Results 01/16/19 01/16/19 01/16/19 Range/Units 05:30 05:30 06:05 WBC 8.4 (3.8-10.6) k/uL RBC 4.93 (4.30-5.90) m/uL Hgb 14.6 (13.0-17.5) gm/dL Hct 45.9 (39.0-53.0) % MCV 93.1 (80.0-100.0) fL MCH 29.6 (25.0-35.0) pg MCHC 31.8 (31.0-37.0) g/dL RDW 15.5 (11.5-15.5) % Plt Count 228 (150-450) k/uL Neutrophils % 71 % Lymphocytes % 17 % Monocytes % 7 % Eosinophils % 2 % Basophils % 0 % Neutrophils # 6.0 (1.3-7.7) k/uL Lymphocytes # 1.4 (1.0-4.8) k/uL Monocytes # 0.6 (0-1.0) k/uL Eosinophils # 0.2 (0-0.7) k/uL Basophils # 0.0 (0-0.2) k/uL Sodium 139 (137-145) mmol/L Potassium 5.1 (3.5-5.1) mmol/L Chloride 106 (98-107) mmol/L Carbon Dioxide 27 (22-30) mmol/L Anion Gap 6 mmol/L BUN 51 H (9-20) mg/dL Creatinine 1.93 H (0.66-1.25) mg/dL Est GFR (CKD-EPI)AfAm 42 (>60 ml/min/1.73 sqM) Est GFR (CKD-EPI)NonAf 36 (>60 ml/min/1.73 sqM) Glucose 165 H (74-99) mg/dL Calcium 9.7 (8.4-10.2) mg/dL Total Bilirubin 0.5 (0.2-1.3) mg/dL AST 40 (17-59) U/L ALT 30 (21-72) U/L Alkaline Phosphatase 85 (38-126) U/L Total Protein 6.5 (6.3-8.2) g/dL Albumin 3.6 (3.5-5.0) g/dL Urine Color Light Yellow Urine Appearance Clear (Clear) Urine pH 7.0 (5.0-8.0) Ur Specific [place] 1.007 (1.001-1.035) Urine Protein 1+ H (Negative) Urine Glucose (UA) Negative (Negative) Urine Ketones Negative (Negative) Urine Blood Negative (Negative) Urine Nitrite Negative (Negative) Urine Bilirubin Negative (Negative) Urine Urobilinogen <2.0 (<2.0) mg/dL Ur Leukocyte Esterase Negative (Negative) Urine RBC 1 (0-5) /hpf - EKG Data -: EKG Interpreted by Sc EKG shows normal: axis (Normal), intervals (QRS duration 94 ms, normal. QTC is 487 ms, prolonged.), ST-T waves (Possible inferior ischemia.) Rate: normal (Rate 99) Interpretation: other (Atrial fibrillation, rate approximately 99 bpm) Disposition Clinical Impression: Atrial fibrillation, Renal insufficiency Disposition: HOME SELF-CARE Condition: Fair Is patient prescribed a controlled substance at d/c from ED?: No Referrals: Ivy Valentine DO [Primary Care Provider] - 1-2 days
[2019-01-16 06:02] LABS: Albumin 3.6 g/dL (3.5-5.0); Calcium 9.7 mg/dL (8.4-10.2); Potassium 5.1 mmol/L (3.5-5.1); Total Bilirubin 0.5 mg/dL (0.2-1.3); Total Protein 6.5 g/dL (6.3-8.2)
[2019-01-16] MEDS ORDERED: SODIUM CHLORIDE 0.9% 500 ML 500 ML IV STA (06:44)
[2019-01-16 07:24] LABS: Appearance,Urine Clear (Clear); Bilirubin,Urine Negative (Negative); Blood,Urine Negative (Negative); Color,Urine Light Yellow; Glucose,Urine (UA) Negative (Negative); Ketones,Urine Negative (Negative); Leukocyte Esterase,Urine Negative (Negative); Nitrite,Urine Negative (Negative); Protein,Urine 1+ (Negative); RBC,Urine 1 /hpf (0-5); Specific Gravity,Urine 1.007 (1.001-1.035); Urobilinogen,Urine <2.0 mg/dL (<2.0)
[2019-01-16 08:11] VITALS: BP 124/78; PULSE 78; RESP 18; TEMP 98
== END 2019-01-16 08:11 | disposition home or self-care (01) ==
LOC: EC 04:38
DX: I48.91 Unspecified atrial fibrillation (principal); N28.9 Disorder of kidney and ureter, unspecified; E11.9 Type 2 diabetes mellitus without complications; K21.9 Gastro-esophageal reflux disease without esophagitis; E78.5 Hyperlipidemia, unspecified; I10 Essential (primary) hypertension; F17.200 Nicotine dependence, unspecified, uncomplicated; Z79.4 Long term (current) use of insulin; Z79.01 Long term (current) use of anticoagulants; Z79.899 Other long term (current) drug therapy; Z88.0 Allergy status to penicillin; Z88.1 Allergy status to other antibiotic agents; Z88.2 Allergy status to sulfonamides; Z91.018 Allergy to other foods; Z88.8 Allergy status to other drugs, medicaments and biological substances; Z95.5 Presence of coronary angioplasty implant and graft
CPT/HCPCS: 36415; 80053; 81001; 85025; 99283

== ENCOUNTER 2019-02-01 10:09 | Inpatient (IN) | payer MEDICARE ==
[2019-02-01] MEDS ORDERED: SODIUM CHLORIDE 0.9% 500 ML 500 ML IV STA (10:19)
[2019-02-01] MEDS ORDERED: NITROGLYCERIN OINT 1 INCH/GM PACKET TOPICAL STA (10:19)
[2019-02-01] MEDS ORDERED: ASPIRIN 81 MG PO STA (10:19)
--- NOTE | 2019-02-01 10:24 | ED ---
General Adult HPI - General Stated complaint: Bradycardia Time Seen by Provider: 02/01/19 10:09 Source: EMS, RN notes reviewed Mode of arrival: EMS Limitations: no limitations - History of Present Illness Initial comments: This is a 63-year-old male who presents emergency Department complaining of sitting in chair and feeling lightheaded and feeling a fullness in his upper chest into his throat. Patient put his monitor and noticed his heart rate was into the 30s. Patient states this is happened multiple times in the past and every time he has this happen he feels lightheaded and has chest discomfort. Patient states he did not notice any shortness of breath. Patient states he does continue to smoke however. Patient states last night he felt his heart rate was racing and so he took an extra half a pill of sotalol. Patient did not have any chest pain at that time. Patient states she woke up this morning felt fine until he was sitting in a chair he was not having any chest discomfort. Patient denies any fever chills or cough. Patient denies any abdominal pain patient denies nausea vomiting diarrhea. Patient denies headache. Patient denies any syncopal episode or near syncopal episode though he does complain of lightheadedness. EMS stated that the patient's heart rate went down to 28 one time. - Related Data Home Medications Medication Instructions Recorded Confirmed Insulin Detemir (Levemir) [Levemir] 28 unit SQ HS 08/18/14 02/01/19 Warfarin [Coumadin] 5 mg PO DIRECTED 08/18/14 02/01/19 Fluticasone Nasal [place] [Flonase 1 spray EA NOSTRIL BID PRN 05/12/16 02/01/19 Nasal [place]] Pravastatin Sodium [Pravachol] 40 mg PO HS 12/06/17 02/01/19 INSULIN LISPRO (humaLOG) [humaLOG] See Protocol SQ AC-TID 06/04/18 02/01/19 Warfarin [Coumadin] 2.5 mg PO DIRECTED 06/04/18 02/01/19 Cholecalciferol [Vitamin D3] 3,000 unit PO DAILY 08/26/18 02/01/19 Clopidogrel [Plavix] 75 mg PO HS 08/26/18 02/01/19 Furosemide [Lasix] 20 mg PO DAILY PRN 08/26/18 02/01/19 Enalapril [Vasotec] 10 mg PO DAILY 01/16/19 02/01/19 Isosorbide Mononitrate ER [Imdur] 30 mg PO DAILY 01/16/19 02/01/19 Pantoprazole [Protonix] 40 mg PO DAILY 01/16/19 02/01/19 cloNIDine HCL [Catapres] 0.2 mg PO TID 01/16/19 02/01/19 Previous Rx's Medication Instructions Recorded Sotalol HCl [Sotalol] 160 mg PO BID #0 05/13/16 hydrALAZINE HCL [Apresoline] 100 mg PO TID #90 tab 06/07/18 Nitroglycerin Sl Tabs [Nitrostat] 0.4 mg SUBLINGUAL Q5M PRN #25 tab 06/28/18 Allergies Allergy/AdvReac Type Severity Reaction Status Date / Time amoxicillin Allergy Anaphylaxis Verified 02/01/19 10:51 cephalexin monohydrate Allergy Rash/Hives Verified 02/01/19 10:51 [From Keflex] clindamycin Allergy Rash/Hives Verified 02/01/19 10:51 gluten Allergy Unknown Verified 02/01/19 10:51 Penicillins Allergy Rash/Hives Verified 02/01/19 10:51 Sulfa (Sulfonamide Allergy Anaphylaxis Verified 02/01/19 10:51 Antibiotics) sulfamethoxazole Allergy Anaphylaxis Verified 02/01/19 10:51 [From Bactrim] trimethoprim [From Bactrim] Allergy Anaphylaxis Verified 02/01/19 10:51 amlodipine AdvReac Swelling Verified 02/01/19 10:51 Review of Systems ROS Statement: Those systems with pertinent positive or pertinent negative responses have been documented in the HPI. ROS Other: All systems not noted in ROS Statement are negative. Past Medical History Past Medical History: Atrial Fibrillation, Diabetes Mellitus, GERD/Reflux, Hyper lipidemia, Hypertension, Skin Disorder Additional Past Medical History / Comment(s): HAS SKIN RASH, ITCHING -celiac disease, past asbestos exposure History of Any Multi-Drug Resistant Organisms: None Reported Past Surgical History: Cholecystectomy, Heart Catheterization With Stent, Tonsillectomy Additional Past Surgical History / Comment(s): 3 STENTS, cataracts Past Anesthesia/Blood Transfusion Reactions: No Reported Reaction Date of Last Stent Placement:: 2010 Past Psychological History: No Psychological Hx Reported Smoking Status: Current every day smoker Past Alcohol Use History: None Reported Past Drug Use History: None Reported - Past Family History Mother Family Medical History: Diabetes Mellitus Father Family Medical History: Myocardial Infarction ([place]) Brother(s) Family Medical History: Myocardial Infarction ([place]) General Exam - General Exam Comments Initial Comments: GENERAL: Patient is well-developed and well-nourished. Patient is nontoxic and well- hydrated and is in mild distress. ENT: Neck is soft and supple. No significant lymphadenopathy is noted. Oropharynx is clear. Moist mucous membranes. Neck has full range of motion without eliciting any pain. EYES: The sclera were anicteric and conjunctiva were pink and moist. Extraocular movements were intact and pupils were equal round and reactive to light. Eyelids were unremarkable. PULMONARY: Unlabored respirations. Good breath sounds bilaterally. No audible rales rhonchi or wheezing was noted. CARDIOVASCULAR: There is a regular rate and rhythm without any murmurs gallops or rubs. ABDOMEN: Soft and nontender with normal bowel sounds. No palpable organomegaly was noted. There is no palpable pulsatile mass. SKIN: Skin is clear with no lesions or rashes and otherwise unremarkable. NEUROLOGIC: Patient is alert and oriented x3. Cranial nerves II through XII are grossly intact. Motor and sensory are also intact. Normal speech, volume and content. Symmetrical smile. MUSCULOSKELETAL: Normal extremities with adequate strength and full range of motion. LYMPHATICS: No significant lymphadenopathy is noted PSYCHIATRIC: Normal psychiatric evaluation. Limitations: no limitations Course Vital Signs 02/01/19 02/01/19 02/01/19 10:12 11:00 11:30 Temperature 98 F Pulse Rate 54 L 51 L 51 L Respiratory 18 10 L 15 Rate Blood Pressure 203/97 194/89 173/87 O2 Sat by Pulse 98 Oximetry Medical Decision Making - Medical Decision Making I discussed smoking cessation for greater than 3 minutes. The risks of smoking were discussed with the patient including but not limited to risks of cancer, stroke, coronary artery disease and COPD. Also discussed with the patient were multiple methods of quitting smoking. Lastly we discussed the financial costs of smoking. EKG shows a sinus bradycardia 54 bpm ND interval is 176 dresses 94 Q-T intervals 524 QTC is 496. Patient's EKG does have some slight ST segment depression in leads 1 to an precordial leads V5 and V6 which are also seen on old EKG. EMS showed me a rhythm strip that showed a heart rate 37. Chest x-ray showed no acute abnormality. Patient's heart rate in the emergency department for most of his stay was in the 50s. And patient felt much better. Patient will be admitted I spoke with Dr. Link he agrees to admit the patient I wrote admitting orders I consult cardiology. Patient will remain on a telemetry floor - Lab Data Result diagrams: 02/01/19 10:30 02/01/19 10:30 Lab Results 02/01/19 02/01/19 02/01/19 Range/Units 10:30 10:30 10:30 WBC 9.5 (3.8-10.6) k/uL RBC 4.71 (4.30-5.90) m/uL Hgb 14.0 (13.0-17.5) gm/dL Hct 43.5 (39.0-53.0) % MCV 92.4 (80.0-100.0) fL MCH 29.6 (25.0-35.0) pg MCHC 32.1 (31.0-37.0) g/dL RDW 15.2 (11.5-15.5) % Plt Count 209 (150-450) k/uL Neutrophils % 75 % Lymphocytes % 13 % Monocytes % 8 % Eosinophils % 2 % Basophils % 0 % Neutrophils # 7.1 (1.3-7.7) k/uL Lymphocytes # 1.2 (1.0-4.8) k/uL Monocytes # 0.8 (0-1.0) k/uL Eosinophils # 0.2 (0-0.7) k/uL Basophils # 0.0 (0-0.2) k/uL PT (9.0-12.0) sec INR (<1.2) APTT (22.0-30.0) sec Sodium 136 L (137-145) mmol/L Potassium 5.2 H (3.5-5.1) mmol/L Chloride 101 (98-107) mmol/L Carbon Dioxide 26 (22-30) mmol/L Anion Gap 9 mmol/L BUN 40 H (9-20) mg/dL Creatinine 1.97 H (0.66-1.25) mg/dL Est GFR (CKD-EPI)AfAm 41 (>60 ml/min/1.73 sqM) Est GFR (CKD-EPI)NonAf 35 (>60 ml/min/1.73 sqM) Glucose 146 H (74-99) mg/dL Calcium 9.2 (8.4-10.2) mg/dL Magnesium 1.8 (1.6-2.3) mg/dL Total Bilirubin 0.5 (0.2-1.3) mg/dL AST 29 (17-59) U/L ALT 35 (21-72) U/L Alkaline Phosphatase 77 (38-126) U/L Troponin I (0.000-0.034) ng/mL NT-Pro-B Natriuret Pep 1510 pg/mL Total Protein 6.4 (6.3-8.2) g/dL Albumin 3.6 (3.5-5.0) g/dL 02/01/19 02/01/19 Range/Units 10:30 10:30 WBC (3.8-10.6) k/uL RBC (4.30-5.90) m/uL Hgb (13.0-17.5) gm/dL Hct (39.0-53.0) % MCV (80.0-100.0) fL MCH (25.0-35.0) pg MCHC (31.0-37.0) g/dL RDW (11.5-15.5) % Plt Count (150-450) k/uL Neutrophils % % Lymphocytes % % Monocytes % % Eosinophils % % Basophils % % Neutrophils # (1.3-7.7) k/uL Lymphocytes # (1.0-4.8) k/uL Monocytes # (0-1.0) k/uL Eosinophils # (0-0.7) k/uL Basophils # (0-0.2) k/uL PT 18.6 H (9.0-12.0) sec INR 1.9 H (<1.2) APTT 30.7 H (22.0-30.0) sec Sodium (137-145) mmol/L Potassium (3.5-5.1) mmol/L Chloride (98-107) mmol/L Carbon Dioxide (22-30) mmol/L Anion Gap mmol/L BUN (9-20) mg/dL Creatinine (0.66-1.25) mg/dL Est GFR (CKD-EPI)AfAm (>60 ml/min/1.73 sqM) Est GFR (CKD-EPI)NonAf (>60 ml/min/1.73 sqM) Glucose (74-99) mg/dL Calcium (8.4-10.2) mg/dL Magnesium (1.6-2.3) mg/dL Total Bilirubin (0.2-1.3) mg/dL AST (17-59) U/L ALT (21-72) U/L Alkaline Phosphatase (38-126) U/L Troponin I 0.032 (0.000-0.034) ng/mL NT-Pro-B Natriuret Pep pg/mL Total Protein (6.3-8.2) g/dL Albumin (3.5-5.0) g/dL Disposition Clinical Impression: Bradycardia, Lightheaded, Chest discomfort Disposition: ADMITTED IP TO THIS HOSP Referrals: Ivy Valentine DO [Primary Care Provider] - 1-2 days Time of Disposition: 11:40
[2019-02-01 10:54] LABS: Basophils % (A) 0 %; Eosinophils # (A) 0.2 k/uL (0-0.7); Eosinophils % (A) 2 %; HCT 43.5 % (39.0-53.0); Lymphocytes # (A) 1.2 k/uL (1.0-4.8); Lymphocytes % (A) 13 %; MCH 29.6 pg (25.0-35.0); MCHC 32.1 g/dL (31.0-37.0); MCV 92.4 fL (80.0-100.0); Mean Platelet Volume 8.8; Monocytes # (A) 0.8 k/uL (0-1.0); Monocytes % (A) 8 %; Neutrophils # (A) 7.1 k/uL (1.3-7.7); Neutrophils % (A) 75 %; Platelet Count 209 k/uL (150-450); RBC 4.71 m/uL (4.30-5.90); RDW 15.2 % (11.5-15.5); WBC 9.5 k/uL (3.8-10.6)
--- NOTE | 2019-02-01 10:58 | XR ---
EXAMINATION TYPE: XR chest 2V DATE OF EXAM: 02/01/2019 COMPARISON: Prior chest x-ray 08/26/[address] 08/09/2012 HISTORY: Chest pain and bradycardia TECHNIQUE: Frontal and lateral views of the chest are obtained. FINDINGS: Right hemidiaphragm is again elevated. There are cardiac leads and the patient is rotated. Heart size is stable. Pulmonary vascularity and susan not significantly changed. No evident airspace disease, pneumothorax, or pleural effusion. Minimal strand-like basilar densities are again seen. IMPRESSION: No acute cardiopulmonary process. There may be some underlying scarring, basilar atelect asis, bronchiectasis. Follow-up as indicated.
[2019-02-01 11:04] LABS: INR 1.9 (<1.2); Partial Thromboplastin Time 30.7 sec (22.0-30.0); Prothrombin Time 18.6 sec (9.0-12.0)
[2019-02-01 11:09] LABS: Albumin 3.6 g/dL (3.5-5.0); Calcium 9.2 mg/dL (8.4-10.2); Magnesium 1.8 mg/dL (1.6-2.3); Potassium 5.2 mmol/L (3.5-5.1); Total Bilirubin 0.5 mg/dL (0.2-1.3); Total Protein 6.4 g/dL (6.3-8.2)
[2019-02-01] MEDS ORDERED: NITROGLYCERIN SL TABS 0.4 MG TAB SUBLINGUAL PRN ×2 (11:40→12:29)
[2019-02-01] MEDS: NITROGLYCERIN OINT 1 INCH/GM PACKET TOPICAL SCH ×2 (12:01→20:42)
[2019-02-01] MEDS: hydrALAZINE HCL 50 MG TAB PO SCH ×2 (13:33→20:08)
--- NOTE | 2019-02-01 14:13 | P.HPIM ---
History of Present Illness Patient is a pleasant 63-year-old gentleman came in with complaints of dizziness check his pulse is was in 30s came to ER. Patient does have history of atrial fibrillation for which patient is on sotalol and Coumadin. Patient is also on clonidine dose of which was recently increased about a month ago as his blood pressure is not well-controlled. I'm discontinuing this clonidine is a chance his blood pressure can go up we'll treat it accordingly. Patient also has some acute renal dysfunction and hyperkalemia because of which I'll have to hold off and on Trileptal as well probably amlodipine would be a good choice for him. Patient does have history of chronic A. fib. Patient denied any fever chills nausea vomiting cough, did have mild chest discomfort. Cardiology was consulted patient appeared to have normal ejection fraction the past. Patient is quite a bit frustrated rightfully so because he is on a lot of medications and requesting me to discontinue whatever this not necessary Review of Systems REVIEW OF SYSTEMS: CONSTITUTIONAL: No fever, no malaise, no fatigue. HEENT: No recent visual problems or hearing problems. Denied any sore throat. CARDIOVASCULAR: No chest pain, orthopnea, PND, no palpitations, no syncope. PULMONARY: No shortness of breath, no cough, no hemoptysis. GASTROINTESTINAL: No diarrhea, no nausea, no vomiting, no abdominal pain. NEUROLOGICAL: No headaches, no weakness, no numbness. HEMATOLOGICAL: Denies any bleeding or petechiae. GENITOURINARY: Denies any burning micturition, frequency, or urgency. MUSCULOSKELETAL/RHEUMATOLOGICAL: Denies any joint pain, swelling, or any muscle pain. ENDOCRINE: Denies any polyuria or polydipsia. The rest of the 14-point review of systems is negative. Past Medical History Past Medical History: Atrial Fibrillation, Coronary Artery Disease (CAD), Chest Pain / Angina, Heart Failure, COPD, Diabetes Mellitus, GERD/Reflux, Hyperlipidemia, Hypertension, Liver Disease, Myocardial Infarction ([place]), Renal Disease, Skin Disorder Additional Past Medical History / Comment(s): IDDM type II, neuropathy bilateral feet, nephropathy-ckd stage III, chronic CHF, liver cirrhosis, BPH, DJD, herniated discs low back, chronic low back pain, DJD, varicose veins bilaterally, anemia, past asbestos exposure, celiac disease, BPH. Last Myocardial Infarction Date:: 06/2018 History of Any Multi-Drug Resistant Organisms: None Reported Past Surgical History: Cholecystectomy, Heart Catheterization With Stent, Tonsillectomy Additional Past Surgical History / Comment(s): PCI with STENTS, bilateral cataracts removed with lens implants, colonoscopy. Past Anesthesia/Blood Transfusion Reactions: No Reported Reaction Date of Last Stent Placement:: 2017 Smoking Status: Current every day smoker - Past Family History Mother Family Medical History: Diabetes Mellitus Father Family Medical History: Myocardial Infarction (ND) Additional Family Medical History / Comment(s): Father had a ND in his 70s. Brother(s) Family Medical History: Myocardial Infarction (ND) Additional Family Medical History / Comment(s): Brother had a ND in his 50s. Medications and Allergies Home Medications Medication Instructions Recorded Confirmed Type Insulin Detemir (Levemir) [Levemir] 28 unit SQ HS 08/18/14 02/01/19 History Warfarin [Coumadin] 5 mg PO DIRECTED 08/18/14 02/01/19 History Fluticasone Nasal [place] [Flonase 1 spray EA NOSTRIL BID PRN 05/12/16 02/01/19 History Nasal [place]] Sotalol HCl [Sotalol] 160 mg PO BID #0 05/13/16 02/01/19 Rx Pravastatin Sodium [Pravachol] 40 mg PO HS 12/06/17 02/01/19 History INSULIN LISPRO (humaLOG) [humaLOG] See Protocol SQ AC-TID 06/04/18 02/01/19 History Warfarin [Coumadin] 2.5 mg PO DIRECTED 06/04/18 02/01/19 History hydrALAZINE HCL [Apresoline] 100 mg PO TID #90 tab 06/07/18 02/01/19 Rx Nitroglycerin Sl Tabs [Nitrostat] 0.4 mg SUBLINGUAL Q5M PRN #25 tab 06/28/18 02/01/19 Rx Cholecalciferol [Vitamin D3] 3,000 unit PO DAILY 08/26/18 02/01/19 History Clopidogrel [Plavix] 75 mg PO HS 08/26/18 02/01/19 History Furosemide [Lasix] 20 mg PO DAILY PRN 08/26/18 02/01/19 History Enalapril [Vasotec] 10 mg PO DAILY 01/16/19 02/01/19 History Isosorbide Mononitrate ER [Imdur] 30 mg PO DAILY 01/16/19 02/01/19 History Pantoprazole [Protonix] 40 mg PO DAILY 01/16/19 02/01/19 History cloNIDine HCL [Catapres] 0.2 mg PO TID 01/16/19 02/01/19 History Allergies Allergy/AdvReac Type Severity Reaction Status Date / Time amoxicillin Allergy Anaphylaxis Verified 02/01/19 10:51 cephalexin monohydrate Allergy Rash/Hives Verified 02/01/19 10:51 [From Keflex] clindamycin Allergy Rash/Hives Verified 02/01/19 10:51 gluten Allergy Unknown Verified 02/01/19 10:51 Penicillins Allergy Rash/Hives Verified 02/01/19 10:51 Sulfa (Sulfonamide Allergy Anaphylaxis Verified 02/01/19 10:51 Antibiotics) sulfamethoxazole Allergy Anaphylaxis Verified 02/01/19 10:51 [From Bactrim] trimethoprim [From Bactrim] Allergy Anaphylaxis Verified 02/01/19 10:51 amlodipine AdvReac Swelling Verified 02/01/19 10:51 Physical Exam Vitals: Vital Signs Temp Pulse Pulse Resp BP BP Pulse Ox 02/01/19 13:25 48 L 183/82 02/01/19 12:20 97.5 F L 51 L 18 196/90 97 02/01/19 12:00 51 L 17 167/84 99 02/01/19 11:30 51 L 15 173/87 02/01/19 11:00 51 L 10 L 194/89 02/01/19 10:12 98 F 54 L 18 203/97 98 Intake and Output 01/31/19 02/01/19 02/01/19 22:59 06:59 14:59 Other: Weight 83.915 kg PHYSICAL EXAMINATION: GENERAL: The patient is alert and oriented x3, not in any acute distress. Well developed, well nourished. HEENT: Pupils are round and equally reacting to light. EOMI. No scleral icterus. No conjunctival pallor. Normocephalic, atraumatic. No pharyngeal erythema. No thyromegaly. CARDIOVASCULAR: S1 and S2 present. No murmurs, rubs, or gallops. PULMONARY: Chest is clear to auscultation, no wheezing or crackles. ABDOMEN: Soft, nontender, nondistended, normoactive bowel sounds. No palpable organomegaly. MUSCULOSKELETAL: No joint swelling or deformity. EXTREMITIES: No cyanosis, clubbing, or pedal edema. NEUROLOGICAL: Gross neurological examination did not reveal any focal deficits. SKIN: No rashes. Results CBC & Chem 7: 02/01/19 10:30 02/01/19 10:30 Labs: Abnormal Lab Results - Last 24 Hours (Table) 02/01/19 02/01/19 Range/Units 10:30 10:30 PT 18.6 H (9.0-12.0) sec INR 1.9 H (<1.2) APTT 30.7 H (22.0-30.0) sec Sodium 136 L (137-145) mmol/L Potassium 5.2 H (3.5-5.1) mmol/L BUN 40 H (9-20) mg/dL Creatinine 1.97 H (0.66-1.25) mg/dL Glucose 146 H (74-99) mg/dL Thrombosis Risk Factor Assmnt - Choose All That Apply Any of the Below Risk Factors Present?: Yes Each Factor Represents 1 point: Obesity (BMI >25) Other Risk Factors: Yes Each Risk Factor Represents 2 Points: Age 61-74 years Other congenital or acquired thrombophilia - If yes, enter type in comment: No Thrombosis Risk Factor Assessment Total Risk Factor Score: 3 Thrombosis Risk Factor Assessment Level: Moderate Risk Assessment and Plan Plan: - lightheadedness secondary to sinus bradycardia and patient was also bit hypotensive hold off on clonidine as mentioned above I'm also holding off on lisinopril because of hyperkalemia and mild acute renal dysfunction BM may end up needing to start him back on lisinopril because I'm expecting his blood pressure will go up with the discontinuation of clonidine. Amlodipine can be added if needed. Cardiology was consulted. -Acute renal failure on chronic kidney disease stage III acute renal failure probably secondary to diuretic therapy and lisinopril which will be held, chronic kidney disease probably from diabetic nephropathy -Type 2 diabetes mellitus -Coronary artery disease -COPD without any significant acute exacerbation -Gastroesophageal reflux disease -Hyperlipidemia -Chronic A. fib presently bradycardic continue with anticoagulation -Nicotine use: Counseling was provided
--- NOTE | 2019-02-01 15:17 | P.CRDCN ---
History of Present Illness History of present illness: This is a pleasant 63-year-old male past medical history significant for coronary artery disease status post recent stent placement to the proximal diagonal branch May 2018 prior to that he had a stent placed to the distal circumflex and the proximal diagonal branch. He also has paroxysmal atrial fibrillation on long-term anticoagulation, hypertension, dyslipidemia, diabetes mellitus, COPD and chronic nicotine dependence. He follows in the office with Dr. Morgan. We have been asked to see him in consultation chest discomfort and bradycardia. The patient states he can tell when his heart is going in and out of atrial fibrillation and when this occurs he takes an additional half a pill of sotalol. Last night he could feel palpitations and therefore he took an half a pill extra of sotalol. This morning he was sitting at the table and he started feeling lightheaded since we checked his blood pressure which came in to be elevated and his heart rate was noted to be 36. He then started feeling a discomfort in the midsternal region with radiation up the neck and extreme lightheaded feeling. He states he fell forward as if he was going to pass out but never did fully lose consciousness. He denies associated shortness of breath or palpitations. EMS telemetry tracings indicate atrial fibrillation with slow ventricular response. EKG on arrival reveals sinus bradycardia with a heart rate of 54 with poor R- wave progression. Chest x-ray is negative for an acute cardiopulmonary process. Laboratory data reviewed, to be VC 9.5, hemoglobin 14, platelets 209, INR 1.9, sodium 136, potassium 5.2, creatinine 1.97, magnesium 1.8, cardiac enzymes negative 1, NT proBNP 1510. Current cardiac medications include sotalol 160 mg twice a day, Plavix 75 mg daily, Coumadin, pravastatin 40 mg daily, enalapril 10 mg daily, Lasix 20 mg daily as needed, Imdur 30 mg daily, clonidine 0.2 mg 3 times a day and hydralazine 100 mg 3 times a day. Most recent echocardiogram obtained in the office February 2018 revealed preserved left ventricular systolic function with ejection fraction 55%, mild to moderate mitral regurgitation and mild tricuspid regurgitation. At the time of my exam: CONSTITUTIONAL: Denies fever. Denies chills. EYES: Denies blurred vision. Denies vision changes. Denies eye pain. EARS, NOSE, MOUTH & THROAT: Denies headache. Denies sore throat. Denies ear pain. CARDIOVASCULAR: Denies chest pain. Denies shortness of breath. Denies orthopnea. Denies PND. Denies palpitations. RESPIRATORY: Denies cough. GASTROINTESTINAL: Denies abdominal pain. Denies diarrhea. Denies constipation. Denies nausea. Denies vomiting. MUSCULOSKELETAL: Denies myalgias. INTEGUMENTARY: Denies pruitis. Denies rash. NEUROLOGIC: Denies numbness. Denies tingling. Denies weakness. PSYCHIATRIC: Denies anxiety. Denies depression. ENDOCRINE: Denies fatigue. Denies weight change. Denies polydipsia. Denies polyurina. GENITOURINARY: Denies burning, hematuria or urgency with micturation. HEMATOLOGIC: Denies history of anemia. Denies bleeding. Blood pressure 183/82 heart rate 48 afebrile maintaining oxygen saturation on room air GENERAL: This is a 63-year-old male in no apparent distress at the time of my examination. HEENT: Head is atraumatic, normocephalic. Pupils are equal, round. Sclerae anicteric. Conjunctivae are clear. Mucous membranes of the mouth are moist. Neck is supple. There is no jugular venous distention. No carotid bruit is heard. LUNGS: Clear to auscultation no wheezes, rales or rhonchi. No chest wall tenderness is noted on palpation or with deep breathing. HEART: Irregular rate and rhythm with systolic ejection murmur at the left sternal border, no rubs or gallops. S1 and S2 heard. ABDOMEN: Soft, nontender. Bowel sounds are heard. No organomegaly noted. EXTREMITIES: No evidence of peripheral edema and no calf tenderness noted. VASCULAR: Radial and dorsalis pedis pulses palpated, no evidence of clubbing. NEUROLOGIC: Patient is awake, alert and oriented x3. ASSESSMENT Atrial fibrillation with slow ventricular response maintained on sotalol 160 mg twice a day. Possibly secondary to increased dose of sotolol at home. Hyperkalemia, on enalapril which was recently cut in half at last office visit for hyperkalemia 01/16/2019 History of coronary artery disease status post stent placement to the proximal diagonal branch in May 2018 maintained on dual antiplatelet therapy COPD Hypertension, uncontrolled. Dyslipidemia Diabetes mellitus Chronic nicotine dependence PLAN Continue to obtain serial cardiac enzymes to rule out an acute coronary event. Hold sotalol. Check d-dimer and TSH. Obtain 2-D echocardiogram and Doppler study to assess cardiac structure and function. Ongoing telemetry monitoring for acute arrhythmia. Smoking cessation recommended. Further recommendations to follow based on clinical course. Thank you kindly for this consultation. Nurse Practitioner note has been reviewed, I agree with a documented findings and plan of care. Patient was seen and examined. Past Medical History Past Medical History: Atrial Fibrillation, Coronary Artery Disease (CAD), Chest Pain / Angina, Heart Failure, COPD, Diabetes Mellitus, GERD/Reflux, Hyperlipidemia, Hypertension, Liver Disease, Myocardial Infarction ([place]), Renal Disease, Skin Disorder Additional Past Medical History / Comment(s): IDDM type II, neuropathy bilateral feet, nephropathy-ckd stage III, chronic CHF, liver cirrhosis, BPH, DJD, herniated discs low back, chronic low back pain, DJD, varicose veins bilaterally, anemia, past asbestos exposure, celiac disease, BPH. Last Myocardial Infarction Date:: 06/2018 History of Any Multi-Drug Resistant Organisms: None Reported Past Surgical History: Cholecystectomy, Heart Catheterization With Stent, Tonsillectomy Additional Past Surgical History / Comment(s): PCI with STENTS, bilateral cataracts removed with lens implants, colonoscopy. Past Anesthesia/Blood Transfusion Reactions: No Reported Reaction Date of Last Stent Placement:: 2017 Smoking Status: Current every day smoker - Past Family History Mother Family Medical History: Diabetes Mellitus Father Family Medical History: Myocardial Infarction (CO) Additional Family Medical History / Comment(s): Father had a CO in his 70s. Brother(s) Family Medical History: Myocardial Infarction (CO) Additional Family Medical History / Comment(s): Brother had a CO in his 50s. Medications and Allergies Home Medications Medication Instructions Recorded Confirmed Type Insulin Detemir (Levemir) [Levemir] 28 unit SQ HS 08/18/14 02/01/19 History Warfarin [Coumadin] 5 mg PO DIRECTED 08/18/14 02/01/19 History Fluticasone Nasal [place] [Flonase 1 spray EA NOSTRIL BID PRN 05/12/16 02/01/19 History Nasal [place]] Sotalol HCl [Sotalol] 160 mg PO BID #0 05/13/16 02/01/19 Rx Pravastatin Sodium [Pravachol] 40 mg PO HS 12/06/17 02/01/19 History INSULIN LISPRO (humaLOG) [humaLOG] See Protocol SQ AC-TID 06/04/18 02/01/19 History Warfarin [Coumadin] 2.5 mg PO DIRECTED 06/04/18 02/01/19 History hydrALAZINE HCL [Apresoline] 100 mg PO TID #90 tab 06/07/18 02/01/19 Rx Nitroglycerin Sl Tabs [Nitrostat] 0.4 mg SUBLINGUAL Q5M PRN #25 tab 06/28/18 02/01/19 Rx Cholecalciferol [Vitamin D3] 3,000 unit PO DAILY 08/26/18 02/01/19 History Clopidogrel [Plavix] 75 mg PO HS 08/26/18 02/01/19 History Furosemide [Lasix] 20 mg PO DAILY PRN 08/26/18 02/01/19 History Enalapril [Vasotec] 10 mg PO DAILY 01/16/19 02/01/19 History Isosorbide Mononitrate ER [Imdur] 30 mg PO DAILY 01/16/19 02/01/19 History Pantoprazole [Protonix] 40 mg PO DAILY 01/16/19 02/01/19 History cloNIDine HCL [Catapres] 0.2 mg PO TID 01/16/19 02/01/19 History Allergies Allergy/AdvReac Type Severity Reaction Status Date / Time amoxicillin Allergy Anaphylaxis Verified 02/01/19 10:51 cephalexin monohydrate Allergy Rash/Hives Verified 02/01/19 10:51 [From Keflex] clindamycin Allergy Rash/Hives Verified 02/01/19 10:51 gluten Allergy Unknown Verified 02/01/19 10:51 Penicillins Allergy Rash/Hives Verified 02/01/19 10:51 Sulfa (Sulfonamide Allergy Anaphylaxis Verified 02/01/19 10:51 Antibiotics) sulfamethoxazole Allergy Anaphylaxis Verified 02/01/19 10:51 [From Bactrim] trimethoprim [From Bactrim] Allergy Anaphylaxis Verified 02/01/19 10:51 amlodipine AdvReac Swelling Verified 02/01/19 10:51 Physical Exam Vitals: Vital Signs Temp Pulse Pulse Resp BP BP Pulse Ox 02/01/19 13:25 48 L 183/82 02/01/19 12:20 97.5 F L 51 L 18 196/90 97 02/01/19 12:00 51 L 17 167/84 99 02/01/19 11:30 51 L 15 173/87 02/01/19 11:00 51 L 10 L 194/89 02/01/19 10:12 98 F 54 L 18 203/97 98 Intake and Output 02/01/19 02/01/19 02/01/19 06:59 14:59 22:59 Other: Weight 83.915 kg Results 02/01/19 10:30 02/01/19 10:30 Cardiac Enzymes 02/01/19 02/01/19 Range/Units 10:30 10:30 AST 29 (17-59) U/L Troponin I 0.032 (0.000-0.034) ng/mL Coagulation 02/01/19 Range/Units 10:30 PT 18.6 H (9.0-12.0) sec APTT 30.7 H (22.0-30.0) sec CBC 02/01/19 Range/Units 10:30 WBC 9.5 (3.8-10.6) k/uL RBC 4.71 (4.30-5.90) m/uL Hgb 14.0 (13.0-17.5) gm/dL Hct 43.5 (39.0-53.0) % Plt Count 209 (150-450) k/uL Comprehensive Metabolic Panel 02/01/19 Range/Units 10:30 Sodium 136 L (137-145) mmol/L Potassium 5.2 H (3.5-5.1) mmol/L Chloride 101 (98-107) mmol/L Carbon Dioxide 26 (22-30) mmol/L BUN 40 H (9-20) mg/dL Creatinine 1.97 H (0.66-1.25) mg/dL Glucose 146 H (74-99) mg/dL Calcium 9.2 (8.4-10.2) mg/dL AST 29 (17-59) U/L ALT 35 (21-72) U/L Alkaline Phosphatase 77 (38-126) U/L Total Protein 6.4 (6.3-8.2) g/dL Albumin 3.6 (3.5-5.0) g/dL Current Medications Generic Name Dose Route Start Last Admin Trade Name Freq PRN Reason Stop Dose Admin Clopidogrel Bisulfate 75 mg 02/01/19 21:00 Plavix PO HS [facility] Hydralazine HCl 100 mg 02/01/19 16:00 02/01/19 13:33 Apresoline PO 100 mg TID [facility] Administration Insulin Detemir 15 unit 02/01/19 21:00 Levemir SQ HS [facility] Isosorbide Mononitrate 30 mg 02/02/19 09:00 Imdur PO DAILY [facility] Nitroglycerin 1 inch 02/01/19 12:00 02/01/19 12:01 Nitro-Bid Oint TOPICAL 02/02/19 02:00 Not Given Q6HR [facility] Nitroglycerin 0.4 mg 02/01/19 12:29 Nitrostat SUBLINGUAL Q5M PRN Chest Pain Pravastatin Sodium 40 mg 02/01/19 21:00 Pravachol PO HS [facility] Warfarin Sodium 2.5 mg 02/04/19 18:00 Coumadin PO MoWeFr [facility] Warfarin Sodium 5 mg 02/02/19 18:00 Coumadin PO SuTuThSa [facility] Intake and Output 02/01/19 02/01/19 02/01/19 06:59 14:59 22:59 Other: Weight 83.915 kg Patient Weight 02/02/19 06:59 Weight 83.915 kg 02/01/19 10:30 02/01/19 10:30
[2019-02-01 16:29] LABS: Glucose,Whole Blood 234 mg/dL (75-99)
[2019-02-01] MEDS: CLOPIDOGREL 75 MG TAB PO SCH (20:08)
[2019-02-01] MEDS: PRAVASTATIN SODIUM 40 MG TAB PO SCH (20:08)
[2019-02-01 20:11] LABS: Glucose,Whole Blood 260 mg/dL (75-99)
[2019-02-01] MEDS: INSULIN DETEMIR (LEVEMIR) 100 UNIT/ML SYR SQ SCH (20:30)
[2019-02-01] MEDS: INSULIN ASPART (NovoLOG) 100 UNIT/ML VIAL SQ SCH (20:32)
[2019-02-01] MEDS ORDERED: SOTALOL 80 MG TAB PO SCH (21:00)
[2019-02-01] MEDS: HYDROCHLOROTHIAZIDE 25 MG TAB PO SCH (21:46)
[2019-02-01] MEDS ORDERED: FLUTICASONE 50MCG/SPRAY NASAL 16GM EA NOSTRIL PRN (22:30)
[2019-02-02] MEDS: NITROGLYCERIN OINT 1 INCH/GM PACKET TOPICAL SCH (02:01)
[2019-02-02 06:29] LABS: Glucose,Whole Blood 178 mg/dL (75-99)
[2019-02-02 06:40] LABS: HCT 41.2 % (39.0-53.0); HGB 13.2 gm/dL (13.0-17.5); MCHC 31.9 g/dL (31.0-37.0); MCV 93.9 fL (80.0-100.0); Mean Platelet Volume 8.7; Platelet Count 158 k/uL (150-450); RBC 4.39 m/uL (4.30-5.90); WBC 7.1 k/uL (3.8-10.6)
[2019-02-02 06:45] LABS: INR 1.8 (<1.2); Prothrombin Time 17.6 sec (9.0-12.0)
[2019-02-02 06:47] LABS: Calcium 8.8 mg/dL (8.4-10.2); Magnesium 1.7 mg/dL (1.6-2.3); Potassium 5.3 mmol/L (3.5-5.1)
[2019-02-02] MEDS: ISOSORBIDE MONONITRATE ER 30 MG TAB.ER.24H PO SCH (08:19)
[2019-02-02] MEDS: INSULIN ASPART (NovoLOG) 100 UNIT/ML VIAL SQ SCH ×4 (08:19→19:43)
[2019-02-02] MEDS: HYDROCHLOROTHIAZIDE 25 MG TAB PO SCH (08:19)
[2019-02-02] MEDS: hydrALAZINE HCL 50 MG TAB PO SCH ×3 (08:20→19:40)
[2019-02-02] MEDS ORDERED: ASPIRIN 325 MG TAB PO SCH (09:00)
[2019-02-02 11:35] LABS: Glucose,Whole Blood 136 mg/dL (75-99)
--- NOTE | 2019-02-02 12:23 | ECHOF ---
Referral Reason:Presyncope MEASUREMENTS -------- HEIGHT: 175.3 cm WEIGHT: 83.9 kg BP: 183/82 RVIDd: 3.5 cm (< 3.3) IVSd: 1.6 cm (0.6 - 1.1) LVIDd: 4.3 cm (3.9 - 5.3) LVPWd: 1.6 cm (0.6 - 1.1) IVSs: 2.1 cm LVIDs: 2.2 cm LVPWs: 2.0 cm LA Diam: 4.3 cm (2.7 - 3.8) LAESV Index (A-L): 32.74 ml/m Ao Diam: 3.1 cm (2.0 - 3.7) AV Cusp: 1.9 cm (1.5 - 2.6) MV EXCURSION: 17.701 mm (> 18.000) MV EF SLOPE: 62 mm/s (70 - 150) EPSS: 0.7 cm MV E Reagan: 0.98 m/s MV DecT: 282 ms MV A Reagan: 1.03 m/s MV E/A Ratio: 0.95 RAP: 5.00 mmHg RVSP: 42.65 mmHg FINDINGS -------- Sinus rhythm. This was a technically good study. The left ventricular size is normal. There is moderate concentric left ventricular hypertrophy. O verall left ventricular systolic function is normal with, an EF between 60 - 65 %. The right ventricle is mildly enlarged. LA is moderately dilated 34-39 ml/m2 The right atrium is normal in size. There is mild aortic valve sclerosis. Mild mitral annular calcification present. There is trace mitral regurgitation. Mild tricuspid regurgitation present. There is mild pulmonary hypertension. The right ventricular systolic pressure, as measured by Doppler, is 42.65mmHg. Trace/mild (physiologic) pulmonic regurgitation. The aortic root size is normal. Normal inferior vena cava with normal inspiratory collapse consistent with estimated right atrial pre ssure of 5 mmHg. There is no pericardial effusion. CONCLUSIONS -------- 1. Sinus rhythm. 2. This was a technically good study. 3. The left ventricular size is normal. 4. There is moderate concentric left ventricular hypertrophy. 5. Overall left ventricular systolic function is normal with, an EF between 60 - 65 %. 6. The right ventricle is mildly enlarged. 7. LA is moderately dilated 34-39 ml/m2 8. The right atrium is normal in size. 9. There is mild aortic valve sclerosis. 10. Mild mitral annular calcification present. 11. There is trace mitral regurgitation. 12. Mild tricuspid regurgitation present. 13. There is mild pulmonary hypertension. 14. The right ventricular systolic pressure, as measured by Doppler, is 42.65mmHg. 15. Trace/mild (physiologic) pulmonic regurgitation. 16. The aortic root size is normal. 17. Normal inferior vena cava with normal inspiratory collapse consistent with estimated right atrial pressure of 5 mmHg. 18. There is no pericardial effusion. CELLULAR EQUIPMENT INSTALLER: Lissette Weber RDCS
--- NOTE | 2019-02-02 12:32 | P.PN ---
Subjective This is a pleasant 63-year-old male past medical history significant for coronary artery disease status post recent stent placement to the proximal diagonal branch May 2018 prior to that he had a stent placed to the distal circumflex and the proximal diagonal branch. He also has paroxysmal atrial fibrillation on long-term anticoagulation, hypertension, dyslipidemia, diabetes mellitus, COPD and chronic nicotine dependence. He follows in the office with Dr. Morgan. He is seen and examined up walking around the unit in no acute dist ress. He denies any further symptoms of dizziness, pre-syncope or palpitations. Sotolol has been discontinued. Currently maintained on Plavix 75 mg daily, hydralazine 100 mg 3 times a day, hydrochlorothiazide 25 mg daily, Imdur 30 mg daily and pravastatin 40 mg daily. laboratory data reviewed, INR 1.8, sodium 137, potassium 5.3, creatinine 1.91, LDL 55. Blood pressure 169/81 heart rate 51. GENERAL: This is a 63-year-old male in no apparent distress at the time of my examination. HEENT: Head is atraumatic, normocephalic. Pupils are equal, round. Sclerae anicteric. Conjunctivae are clear. Mucous membranes of the mouth are moist. Neck is supple. There is no jugular venous distention. No carotid bruit is heard. LUNGS: Clear to auscultation no wheezes, rales or rhonchi. No chest wall tenderness is noted on palpation or with deep breathing. HEART: Irregular rate and rhythm with systolic ejection murmur at the left sternal border, no rubs or gallops. S1 and S2 heard. EXTREMITIES: No evidence of peripheral edema and no calf tenderness noted. ASSESSMENT Atrial fibrillation with slow ventricular response maintained on sotalol 160 mg twice a day. Possibly secondary to increased dose of sotolol at home. Tachy-chary syndrome Hyperkalemia, on enalapril which was recently cut in half at last office visit for hyperkalemia 01/16/2019 History of coronary artery disease status post stent placement to the proximal diagonal branch in May 2018 maintained on dual antiplatelet therapy COPD Hypertension, uncontrolled. Dyslipidemia Diabetes mellitus Chronic nicotine dependence PLAN Symptoms concerning for tachy-chary syndrome which will require pacemaker insertion. Hold coumadin tonight and repeat INR in the morning. Keep the patient NPO after midnight tonight for pacemaker insertion if INR is down below 1.2. I have discussed the risks, benefits and alternative therapies for the above- mentioned procedure and for both sedation/analgesia as well as necessary blood product administration, if indicated, as they pertain to this patient. The patient has indicated understanding and acceptance of the risks and procedures discussed. Discontinue enalapril due to persistent hyperkalemia. Further recommendations to follow based on clinical course. Nurse Practitioner note has been reviewed, I agree with a documented findings and plan of care. Patient was seen and examined. Objective - Vital Signs Vital signs: Vital Signs Temp 98.1 F 02/02/19 12:00 Pulse 51 L 02/02/19 12:00 Resp 16 02/02/19 12:00 BP 169/81 02/02/19 12:00 Pulse Ox 95 02/02/19 12:00 Intake & Output 02/01/19 02/02/19 02/02/19 18:59 06:59 18:59 Intake Total 200 Balance 200 Weight 83.915 kg Intake: Oral 200 Other: Voiding Method Toilet Toilet # Voids 2 - Labs CBC & Chem 7: 02/02/19 05:52 02/02/19 05:52 Labs: Abnormal Lab Results - Last 24 Hours (Table) 02/01/19 02/01/19 02/02/19 Range/Units 16:24 20:10 05:52 PT (9.0-12.0) sec INR (<1.2) Potassium 5.3 H (3.5-5.1) mmol/L BUN 42 H (9-20) mg/dL Creatinine 1.91 H (0.66-1.25) mg/dL Glucose 189 H (74-99) mg/dL POC Glucose (mg/dL) 234 H 260 H (75-99) mg/dL Triglycerides 152 H (<150) mg/dL HDL Cholesterol 32 L (40-60) mg/dL 02/02/19 02/02/19 02/02/19 Range/Units 05:52 06:25 11:32 PT 17.6 H (9.0-12.0) sec INR 1.8 H (<1.2) Potassium (3.5-5.1) mmol/L BUN (9-20) mg/dL Creatinine (0.66-1.25) mg/dL Glucose (74-99) mg/dL POC Glucose (mg/dL) 178 H 136 H (75-99) mg/dL Triglycerides (<150) mg/dL HDL Cholesterol (40-60) mg/dL
[2019-02-02] MEDS: SODIUM CHLORIDE 0.9% 1,000 ML IV SCH ×2 (13:01)
--- NOTE | 2019-02-02 13:57 | P.PN ---
Subjective 63-year-old the female came in with the bradycardia which did not improve significantly in spite of discontinuation of clonidine and patient is on sotalol for atrial fibrillation patient appears to have sick sinus syndrome patient will go for pacemaker placement Coumadin is being held at this time for that reason. Patient has quite a few questions about his medical problems and that management which I explained it to him. Constitutional: Denied any fatigue denied any fever. Cardio vascular: denied any chest pain, palpitations Gastrointestinal denied any nausea vomiting Pulmonary: Denied any shortness of breath cough Neurologic denied any new focal deficits All inpatient medications were reviewed and appropriate changes in these medications as dictated in the interval history and assessment and plan. Objective - Vital Signs Vital signs: Vital Signs Temp 98.1 F 02/02/19 12:00 Pulse 51 L 02/02/19 12:00 Resp 16 02/02/19 12:00 BP 169/81 02/02/19 12:00 Pulse Ox 95 02/02/19 12:00 Intake & Output 02/01/19 02/02/19 02/02/19 18:59 06:59 18:59 Intake Total 200 Balance 200 Weight 83.915 kg Intake: Oral 200 Other: Voiding Method Toilet Toilet # Voids 2 - Exam PHYSICAL EXAMINATION: GENERAL: The patient is alert and oriented x3, not in any acute distress. Well developed, well nourished. HEENT: Pupils are round and equally reacting to light. EOMI. No scleral icterus. No conjunctival pallor. Normocephalic, atraumatic. No pharyngeal erythema. No thyromegaly. CARDIOVASCULAR: S1 and S2 present. No murmurs, rubs, or gallops. PULMONARY: Chest is clear to auscultation, no wheezing or crackles. ABDOMEN: Soft, nontender, nondistended, normoactive bowel sounds. No palpable organomegaly. MUSCULOSKELETAL: No joint swelling or deformity. EXTREMITIES: No cyanosis, clubbing, or pedal edema. NEUROLOGICAL: Gross neurological examination did not reveal any focal deficits. SKIN: No rashes. - Labs CBC & Chem 7: 02/02/19 05:52 02/02/19 05:52 Labs: Abnormal Lab Results - Last 24 Hours (Table) 02/01/19 02/01/19 02/02/19 Range/Units 16:24 20:10 05:52 PT (9.0-12.0) sec INR (<1.2) Potassium 5.3 H (3.5-5.1) mmol/L BUN 42 H (9-20) mg/dL Creatinine 1.91 H (0.66-1.25) mg/dL Glucose 189 H (74-99) mg/dL POC Glucose (mg/dL) 234 H 260 H (75-99) mg/dL Triglycerides 152 H (<150) mg/dL HDL Cholesterol 32 L (40-60) mg/dL 02/02/19 02/02/19 02/02/19 Range/Units 05:52 06:25 11:32 PT 17.6 H (9.0-12.0) sec INR 1.8 H (<1.2) Potassium (3.5-5.1) mmol/L BUN (9-20) mg/dL Creatinine (0.66-1.25) mg/dL Glucose (74-99) mg/dL POC Glucose (mg/dL) 178 H 136 H (75-99) mg/dL Triglycerides (<150) mg/dL HDL Cholesterol (40-60) mg/dL Assessment and Plan Plan: - lightheadedness secondary to sinus bradycardia, appears to have sick sinus syndrome and patient will undergo pacemaker placement Coumadin is being held -Acute renal failure on chronic kidney disease stage III acute renal failure probably secondary to diuretic therapy and lisinopril which will be held, chronic kidney disease probably from diabetic nephropathy no significant improvement and patient is getting 50 mL of IV normal saline at this time -Type 2 diabetes mellitus with diabetic nephropathy -Coronary artery disease -COPD without any significant acute exacerbation -Gastroesophageal reflux disease -Hyperlipidemia -Chronic A. fib presently bradycardic continue with anticoagulation -Nicotine use: Counseling was provided
[2019-02-02 16:36] LABS: Glucose,Whole Blood 271 mg/dL (75-99)
[2019-02-02] MEDS ORDERED: WARFARIN 5 MG TAB PO SCH (18:00)
[2019-02-02] MEDS: amLODIPine 5 MG TAB PO SCH (18:53)
[2019-02-02] MEDS: CLOPIDOGREL 75 MG TAB PO SCH (19:40)
[2019-02-02] MEDS: PRAVASTATIN SODIUM 40 MG TAB PO SCH (19:40)
[2019-02-02] MEDS: INSULIN DETEMIR (LEVEMIR) 100 UNIT/ML SYR SQ SCH (19:43)
[2019-02-02 19:49] LABS: Glucose,Whole Blood 82 mg/dL (75-99)
[2019-02-03 04:46] LABS: INR 1.3 (<1.2); Prothrombin Time 13.6 sec (9.0-12.0)
[2019-02-03 04:51] LABS: Calcium 8.9 mg/dL (8.4-10.2); Potassium 4.5 mmol/L (3.5-5.1)
[2019-02-03 06:46] LABS: Glucose,Whole Blood 146 mg/dL (75-99)
[2019-02-03] MEDS: INSULIN ASPART (NovoLOG) 100 UNIT/ML VIAL SQ SCH ×4 (07:26→20:47)
[2019-02-03] MEDS: SODIUM CHLORIDE 0.9% 1,000 ML IV SCH ×2 (07:26)
[2019-02-03] MEDS: HYDROCHLOROTHIAZIDE 25 MG TAB PO SCH (07:51)
[2019-02-03] MEDS: hydrALAZINE HCL 50 MG TAB PO SCH ×3 (07:51→20:46)
[2019-02-03] MEDS: amLODIPine 5 MG TAB PO SCH (07:51)
[2019-02-03] MEDS: ISOSORBIDE MONONITRATE ER 30 MG TAB.ER.24H PO SCH (07:51)
[2019-02-03] MEDS ORDERED: VANCOMYCIN 1,000 MG in SODIUM CHLORIDE 0.9% 250 ML IVPB STA (09:37)
[2019-02-03] MEDS ORDERED: VANCOMYCIN IRRIGATION ONE (09:45)
[2019-02-03] MEDS ORDERED: SODIUM CHLORIDE 0.9% IRRIGATION ONE (09:45)
[2019-02-03 11:33] LABS: Glucose,Whole Blood 204 mg/dL (75-99)
[2019-02-03] MEDS ORDERED: LIDOCAINE 1% INJ 10MG/ML (20 ML MDV) ONE (11:58)
[2019-02-03] MEDS ORDERED: IV FLUID CONTINUATION 1,000 ML IV ONE (12:40)
[2019-02-03] MEDS ORDERED: IOPAMIDOL-250 50ML BTL IV ONE (12:50)
[2019-02-03] MEDS: LIDOCAINE 1% INJ 10MG/ML (20 ML MDV) SQ ONE ×2 (13:03→13:10)
[2019-02-03] MEDS: MIDAZOLAM 2 MG/2 ML VIAL IVP ONE ×2 (13:03→13:31)
[2019-02-03] MEDS ORDERED: fentaNYL (PF) 50 MCG/ML 2 ML AMP IVP ONE (13:05)
[2019-02-03] MEDS ORDERED: fentaNYL (PF) 50 MCG/ML 2 ML AMP ONE (13:06)
--- NOTE | 2019-02-03 13:21 | P.PN ---
Subjective 63-year-old the female came in with the bradycardia which did not improve significantly in spite of discontinuation of clonidine and patient is on sotalol for atrial fibrillation patient appears to have sick sinus syndrome patient will go for pacemaker placement Coumadin is being held at this time for that reason. Patient has quite a few questions about his medical problems and that management which I explained it to him. 02/03/2019 Patient is still complaining of some dizziness patient was unable to sleep was comparing of some restless leg syndrome symptoms and was requesting magnesium oxide which will be ordered. Patient will undergo pacemaker placement INR is 1.3 Coumadin is being held Constitutional: Denied any fatigue denied any fever. Cardio vascular: denied any chest pain, palpitations Gastrointestinal denied any nausea vomiting Pulmonary: Denied any shortness of breath cough Neurologic denied any new focal deficits All inpatient medications were reviewed and appropriate changes in these medications as dictated in the interval history and assessment and plan. Objective - Vital Signs Vital signs: Vital Signs Temp 98.3 F 02/03/19 12:00 Pulse 67 02/03/19 12:00 Resp 18 02/03/19 12:00 BP 156/86 02/03/19 12:00 Pulse Ox 96 02/03/19 12:00 Intake & Output 02/02/19 02/03/19 02/03/19 17:59 06:59 18:59 Other: Voiding Method Toilet # Voids - Exam PHYSICAL EXAMINATION: GENERAL: The patient is alert and oriented x3, not in any acute distress. Well developed, well nourished. HEENT: Pupils are round and equally reacting to light. EOMI. No scleral icterus. No conjunctival pallor. Normocephalic, atraumatic. No pharyngeal erythema. No thyromegaly. CARDIOVASCULAR: S1 and S2 present. No murmurs, rubs, or gallops. PULMONARY: Chest is clear to auscultation, no wheezing or crackles. ABDOMEN: Soft, nontender, nondistended, normoactive bowel sounds. No palpable organomegaly. MUSCULOSKELETAL: No joint swelling or deformity. EXTREMITIES: No cyanosis, clubbing, or pedal edema. NEUROLOGICAL: Gross neurological examination did not reveal any focal deficits. SKIN: No rashes. - Labs CBC & Chem 7: 02/02/19 05:52 02/03/19 04:18 Labs: Abnormal Lab Results - Last 24 Hours (Table) 02/02/19 02/03/19 02/03/19 Range/Units 16:35 04:18 04:18 PT 13.6 H (9.0-12.0) sec INR 1.3 H (<1.2) BUN 44 H (9-20) mg/dL Creatinine 1.90 H (0.66-1.25) mg/dL Glucose 163 H (74-99) mg/dL POC Glucose (mg/dL) 271 H (75-99) mg/dL 02/03/19 02/03/19 Range/Units 06:45 11:32 PT (9.0-12.0) sec INR (<1.2) BUN (9-20) mg/dL Creatinine (0.66-1.25) mg/dL Glucose (74-99) mg/dL POC Glucose (mg/dL) 146 H 204 H (75-99) mg/dL Assessment and Plan Plan: - lightheadedness secondary to sinus bradycardia, appears to have sick sinus syndrome and patient will undergo pacemaker placement Coumadin is being held -Acute renal failure on chronic kidney disease stage III acute renal failure probably secondary to diuretic therapy and lisinopril which will be held, chronic kidney disease probably from diabetic nephropathy no significant improvement and patient is getting 50 mL of IV normal saline at this time -Type 2 diabetes mellitus with diabetic nephropathy -Coronary artery disease -COPD without any significant acute exacerbation -Gastroesophageal reflux disease -Hyperlipidemia -Chronic A. fib presently bradycardic continue with anticoagulation -Nicotine use: Counseling was provided -Restless leg syndrome
[2019-02-03] MEDS ORDERED: METOPROLOL TARTRATE 5 MG/5 ML VIAL IVP ONE ×2 (14:09→14:11)
[2019-02-03] MEDS ORDERED: ACETAMINOPHEN TAB 325 MG TAB PO PRN (14:14)
--- NOTE | 2019-02-03 14:26 | P.PCN ---
Date of Procedure: 02/03/19 Preoperative Diagnosis: This patient is admitted to the hospital with dizziness and near syncope episodes and was found to have episodes of for tachybradycardia syndrome with a severe bradycardia and long pauses. Patient has intermittent atrial fibrillation/flutter. Patient is advised to have permanent pacemaker implantation. Patient and family were explained the risks and benefits of the procedure Postoperative Diagnosis: The same Procedure(s) Performed: Axillary venography, and dual-chamber pacemaker implantation. Description of Procedure: HISTORY: This is a 63-year-old gentleman with history of paroxysmal atrial fibr illation, sick sinus syndrome was admitted to the hospital with a near syncopal episodes and evidence of sick sinus syndrome. Patient is advised to have permanent pacemaker implantation. CONSENT:I have discussed the risks, benefits and alternative therapies for the above-mentioned procedure and for both sedation/analgesia as well as necessary blood product administration, if indicated, as they pertain to this patient. The patient has indicated understanding and acceptance of the risks and procedures discussed. PROCEDURE: Patient was brought to the lab in a fasting state. Patient was pre pped and draped in the usual fashion. Patient was given IV sedation with fentanyl and Versed. The skin below the left clavicle was infiltrated with lidocaine. An incision was made parallel to deltopectoral groove was deepened until the pectoral fascia was exposed. A pocket was created by blunt dissection and cautery. Axillary venography was performed to delineate the course of the axillary vein. 2 sticks were performed into extrathoracic portion of the axillary vein and 2 sheaths were advanced over the guidewires and left in subclavian vein. Conscious Sedation: Versed 2 mg Fentanyl. 50 g Duration 64 minutes LEADS: ATRIAL: This is manufactured by [employer]. Model number is 5076-52. Serial number is [id number]. VENTRICULAR: This is manufactured by [employer]. Model number is 5076-58. Serial number is [id number]. The ventricular lead is maneuvered l with help of a straight and curved stylets into the left ventricle apical region. Satisfactory position was obtained and threshold measurements were made. The atrial lead was then maneuvered into the right atrial appendage. And thresholds were obtained. THRESHOLDS: ATRIUM: Patient is atrial flutter. The flutter waves are mellitus. 3 mV. Pacing threshold could not be measured. The impedance is 9 and 75 ohms VENTRICLE: The minimum patient threshold is 0.7 V at the pulse width of 0.5. The impedance is a 90 ohms. The R-wave is 24 mV The leads and pulse generator remained in the pocket after it was washed with antibiotics. Pocket was closed in the usual fashion. The fascia was closed with 2-0 Prolene ,the subcutaneous tissue was closed with 3-0 Prolene and the skin was closed with 4-0 Prolene. PROGRAMMING: MODE: AAIR with mode switch to DDDR RATE: 60 to 130 OUTPUT: Atrium : 3.5 Ventricle: 3.5 FINAL IMPRESSION: #1. Axillary venography #2. Dual-chamber permanent pacemaker implantation COMPLICATIONS:. None PLAN: Continue to monitor him on telemetry unit. Initiate him on beta buddy therapy. Anticoagulation from tomorrow
[2019-02-03 14:43] LABS: Glucose,Whole Blood 187 mg/dL (75-99)
[2019-02-03] MEDS: MAGNESIUM OXIDE 400 MG TAB PO SCH (15:07)
[2019-02-03] MEDS ORDERED: VANCOMYCIN IV PER PHARMACY 1 EACH MISC MISCELLANE PRN (16:00)
[2019-02-03 16:31] LABS: Glucose,Whole Blood 295 mg/dL (75-99)
[2019-02-03 19:26] LABS: Glucose,Whole Blood 300 mg/dL (75-99)
[2019-02-03 20:29] LABS: Glucose,Whole Blood 213 mg/dL (75-99)
[2019-02-03] MEDS: PRAVASTATIN SODIUM 40 MG TAB PO SCH (20:46)
[2019-02-03] MEDS: METOPROLOL TARTRATE 50 MG TAB PO SCH (20:46)
[2019-02-03] MEDS: INSULIN DETEMIR (LEVEMIR) 100 UNIT/ML SYR SQ SCH (20:53)
[2019-02-03] MEDS ORDERED: VANCOMYCIN 1,500 MG in SODIUM CHLORIDE 0.9% 250 ML IVPB ONE (21:00)
[2019-02-03] MEDS ORDERED: MELATONIN 3 MG TABLET PO SCH (21:00)
[2019-02-04 05:51] VITALS: RESP 16
[2019-02-04 05:57] LABS: Glucose,Whole Blood 117 mg/dL (75-99)
[2019-02-04] MEDS: SODIUM CHLORIDE 0.9% 1,000 ML IV SCH ×2 (06:20→06:31)
[2019-02-04] MEDS: INSULIN ASPART (NovoLOG) 100 UNIT/ML VIAL SQ SCH ×2 (06:29→13:00)
[2019-02-04] MEDS: hydrALAZINE HCL 50 MG TAB PO SCH (06:32)
[2019-02-04] MEDS: amLODIPine 5 MG TAB PO SCH (06:32)
[2019-02-04] MEDS: METOPROLOL TARTRATE 50 MG TAB PO SCH (08:48)
[2019-02-04] MEDS: ISOSORBIDE MONONITRATE ER 30 MG TAB.ER.24H PO SCH (08:48)
[2019-02-04] MEDS: HYDROCHLOROTHIAZIDE 25 MG TAB PO SCH (08:49)
--- NOTE | 2019-02-04 10:00 | XR ---
EXAMINATION TYPE: XR chest 2V DATE OF EXAM: 02/04/2019 COMPARISON: Prior chest x-ray 02/01/2018 HISTORY: Lead placement check TECHNIQUE: Frontal and lateral views of the chest are obtained. FINDINGS: There is been interval placement of a generator in the left pectoral region, there are joesph ds in the right atrium and ventricle. No pneumothorax or pleural effusion. No other significant wharton e. IMPRESSION: No evident complication status post lead placement check.
[2019-02-04 11:29] LABS: Glucose,Whole Blood 343 mg/dL (75-99)
[2019-02-04 11:43] VITALS: BP 174/72; PULSE 62; TEMP 98.2
--- NOTE | 2019-02-04 12:26 | CDI ---
Documentation Clarification Form Date: 02/04/2019 12:16:20 PM From: Lauren AnnaVITO rios, CCDS Admit Date: 02/02/2019 1:18:00 PM Patient Name: Jim Lieberman Visit Number: [id number] Discharge Date: ATTENTION: The Clinical Documentation Specialists (CDI) and [facility] Coding Staff appreciate your assistance in clarifying documentation. Please respond to the clarification below the line at the bottom and electronically sign. The CDI & [facility] Coding staff will review the response and follow-up if needed. Please note: Queries are made part of the Legal Health Record. If you have any questions, please contact the author of this message via ITS. Dr. Jeancarlos Chavarria: Per the documentation in the pacemaker procedure note: "Patient has intermittent atrial fibrillation/flutter." "ATRIUM: Patient is atrial flutter.The flutter waves are mellitus." History: Paroxysmal Atrial Fibrillation, Hypertension, CKD III, Diabetes II with nephropathy, CAD & COPD with previous CO & coronary stents. Clinical Indicators: Patient presented after having episodes of bradycardia, lightheadedness & chest discomfort. Diagnosed with sick sinus syndrome and scheduled for dual chamber pacemaker. VS: P 54 51*, BP 203/97^ EKG: Rate 54 sinus bradycardia In your professional opinion, in order to capture the severity of condition; can you please clarify the type of Atrial Flutter if known? o Atypical (Type II) o Typical (Type I) o Other (please specify type): o Clinically unable to determine (Last Revision: February 2018) This patient has typical atrial flutter MTDD
[2019-02-04] MEDS: MAGNESIUM OXIDE 400 MG TAB PO SCH (13:00)
--- NOTE | 2019-02-04 13:17 | P.DS ---
Providers Date of admission: 02/02/19 13:18 Attending physician: Hiral Link Consults: 02/01/19 11:40 Consult Physician Urgent Consulting Provider: [facility] Consult Reason/Comments: Chest discomfort, bradycardia Do you want consulting provider notified?: Yes Primary care physician: Ivy Valentine [facility] Course: 63-year-old the female came in with the bradycardia which did not improve significantly in spite of discontinuation of clonidine and patient is on sotalol for atrial fibrillation patient appears to have sick sinus syndrome patient will go for pacemaker placement Coumadin is being held at this time for that reason. Patient has quite a few questions about his medical problems and that management which I explained it to him. 02/03/2019 Patient is still complaining of some dizziness patient was unable to sleep was comparing of some restless leg syndrome symptoms and was requesting magnesium oxide which will be ordered. Patient will undergo pacemaker placement INR is 1.3 Coumadin is being held 02/04/2019 Patient is doing well had a pacemaker placed air. Patient is being discharged on Corag patient is also on sotalol which will be discontinued as an outpatient patient will be started on amiodarone. Patient is being switched Eliquis from Coumadin. Patient will not benefit from diuretic therapy as his serum creatinine is 1.9 as he has chronic kidney disease patient can be started on QUINCY inhibitor. Clonidine was discontinued. PHYSICAL EXAMINATION: GENERAL: The patient is alert and oriented x3, not in any acute distress. Well developed, well nourished. HEENT: Pupils are round and equally reacting to light. EOMI. No scleral icterus. No conjunctival pallor. Normocephalic, atraumatic. No pharyngeal erythema. No thyromegaly. CARDIOVASCULAR: S1 and S2 present. No murmurs, rubs, or gallops. PULMONARY: Chest is clear to auscultation, no wheezing or crackles. ABDOMEN: Soft, nontender, nondistended, normoactive bowel sounds. No palpable organomegaly. MUSCULOSKELETAL: No joint swelling or deformity. EXTREMITIES: No cyanosis, clubbing, or pedal edema. NEUROLOGICAL: Gross neurological examination did not reveal any focal deficits. SKIN: No rashes. Assessment and Plan Plan: - lightheadedness secondary to sinus bradycardia, appears to have sick sinus syndrome had pacemaker placement -Acute renal failure on chronic kidney disease stage III -Type 2 diabetes mellitus with diabetic nephropathy -Coronary artery disease -COPD without any significant acute exacerbation -Gastroesophageal reflux disease -Hyperlipidemia -Chronic A. fib presently bradycardic continue with anticoagulation -Nicotine use: Counseling was provided -Restless leg syndrome Plan - Discharge Summary Discharge Rx Participant: No New Discharge Prescriptions: New Apixaban [Eliquis] 2.5 mg PO BID #60 tab amLODIPine [Norvasc] 10 mg PO DAILY #30 tab Clopidogrel [Plavix] 75 mg PO DAILY tab Carvedilol [Coreg] 12.5 mg PO BID #60 tablet Continue Insulin Detemir (Levemir) [Levemir] 28 unit SQ HS Fluticasone Nasal Caroline [Flonase Nasal Caroline] 1 spray EA NOSTRIL BID PRN PRN Reason: Congestion Sotalol HCl [Sotalol] 160 mg PO BID #0 Pravastatin Sodium [Pravachol] 40 mg PO HS INSULIN LISPRO (humaLOG) [humaLOG] See Protocol SQ AC-TID hydrALAZINE HCL [Apresoline] 100 mg PO TID #90 tab Nitroglycerin Sl Tabs [Nitrostat] 0.4 mg SUBLINGUAL Q5M PRN #25 tab PRN Reason: Chest Pain Cholecalciferol [Vitamin D3] 3,000 unit PO DAILY Furosemide [Lasix] 20 mg PO DAILY PRN PRN Reason: Edema Isosorbide Mononitrate ER [Imdur] 30 mg PO DAILY Enalapril [Vasotec] 10 mg PO DAILY Pantoprazole [Protonix] 40 mg PO DAILY Discontinued Warfarin [Coumadin] 5 mg PO DIRECTED Warfarin [Coumadin] 2.5 mg PO DIRECTED cloNIDine HCL [Catapres] 0.2 mg PO TID Discharge Medication List Insulin Detemir (Levemir) [Levemir] 28 unit SQ HS 08/18/14 [History] Fluticasone Nasal Caroline [Flonase Nasal Caroline] 1 spray EA NOSTRIL BID PRN 05/12/16 [History] Sotalol HCl [Sotalol] 160 mg PO BID #0 05/13/16 [Rx] Pravastatin Sodium [Pravachol] 40 mg PO HS 12/06/17 [History] INSULIN LISPRO (humaLOG) [humaLOG] See Protocol SQ AC-TID 06/04/18 [History] hydrALAZINE HCL [Apresoline] 100 mg PO TID #90 tab 06/07/18 [Rx] Nitroglycerin Sl Tabs [Nitrostat] 0.4 mg SUBLINGUAL Q5M PRN #25 tab 06/28/18 [Rx] Cholecalciferol [Vitamin D3] 3,000 unit PO DAILY 08/26/18 [History] Furosemide [Lasix] 20 mg PO DAILY PRN 08/26/18 [History] Enalapril [Vasotec] 10 mg PO DAILY 01/16/19 [History] Isosorbide Mononitrate ER [Imdur] 30 mg PO DAILY 01/16/19 [History] Pantoprazole [Protonix] 40 mg PO DAILY 01/16/19 [History] Apixaban [Eliquis] 2.5 mg PO BID #60 tab 02/04/19 [Rx] Carvedilol [Coreg] 12.5 mg PO BID #60 tablet 02/04/19 [Rx] Clopidogrel [Plavix] 75 mg PO DAILY tab 02/04/19 [Rx] amLODIPine [Norvasc] 10 mg PO DAILY #30 tab 02/04/19 [Rx] Follow up Appointment(s)/Referral(s): [facility] [Provider Group] - 02/11/19 3:00 pm (Monday -device check only. Office will try to squeeze this in, if possible, at your 1:30 appointment) Zeina Morgan MD [STAFF PHYSICIAN] - 02/11/19 1:30 pm (Monday) Ivy Valentine DO [Primary Care Provider] - 02/06/19 12:00 pm (Monday) Patient Instructions/Handouts: Pacemaker (DC) Activity/Diet/Wound Care/Special Instructions: pts eliquis copay is $43/mo-pt is agreeable, free 30 day coupon applied
--- NOTE | 2019-02-04 15:24 | P.PN ---
Subjective Progress Note Date: 02/04/19 This is a pleasant 63-year-old male past medical history significant for coronary artery disease status post recent stent placement to the proximal diagonal branch May 2018 prior to that he had a stent placed to the distal circumflex and the proximal diagonal branch. He also has paroxysmal atrial fibrillation on long-term anticoagulation, hypertension, dyslipidemia, diabetes mellitus, COPD and chronic nicotine dependence. He follows in the office with Dr. Morgan. We have been asked to see him in consultation chest discomfort and bradycardia. The patient states he can tell when his heart is going in and out of atrial fibrillation and when this occurs he takes an additional half a pill of sotalol. Last night he could feel palpitations and therefore he took an half a pill extra of sotalol. This morning he was sitting at the table and he started feeling lightheaded since we checked his blood pressure which came in to be elevated and his heart rate was noted to be 36. He then started feeling a discomfort in the midsternal region with radiation up the neck and extreme lightheaded feeling. He states he fell forward as if he was going to pass out but never did fully lose consciousness. He denies associated shortness of breath or palpitations. EMS telemetry tracings indicate atrial fibrillation with slow ventricular response. 02/04/2019 The patient underwent implantation of a permanent pacemaker by Dr. Chavarria. The pacemaker was interrogated and is functioning appropriately. Chest x-ray did not reveal any evidence of a pneumothorax. His blood pressure this morning 174/72, heart rate in the 60s, 96% on room air. Patient had been taking Coumadin in the past for his atrial fibrillation, Dr. Chavarria did have a discussion with the patient regarding trying one of the newer anticoagulants. Patient had been on Pradaxa and had some nosebleeding in the past however he was willing to try Eliquis. We would recommend to continue the patient on the Plavix along with Eliquis 2-1/2 mg by mouth twice a day. We did check regarding coverage for the patient as well. His beta buddy was also changed to Coreg for more optimal blood pressure control. Objective - Vital Signs Vital signs: Vital Signs Temp 98.2 F 02/04/19 11:41 Pulse 62 02/04/19 11:41 Resp 16 02/04/19 12:00 BP 174/72 02/04/19 11:41 Pulse Ox 96 02/04/19 11:41 Intake & Output 02/03/19 02/04/19 02/04/19 18:59 06:59 18:59 Intake Total 650 930 Balance 650 930 Weight 81.1 kg Intake: IV 650 Intake, IV Titration 450 Amount Sodium Chloride 0.9% 1, 450 000 ml @ 50 mls/hr IV . Q20H ALONZO Rx#:[id number] Oral 480 Other: Voiding Method Toilet Toilet Toilet # Voids 2 2 - Exam GENERAL: This is a 63-year-old male in no apparent distress at the time of my examination. HEENT: Head is atraumatic, normocephalic. Pupils are equal, round. Sclerae anicteric. Conjunctivae are clear. Mucous membranes of the mouth are moist. Neck is supple. There is no jugular venous distention. No carotid bruit is heard. LUNGS: Clear to auscultation no wheezes, rales or rhonchi. No chest wall tenderness is noted on palpation or with deep breathing. Site of pacemaker implantation is dry and intact, small amount of bruising noted HEART: Irregular rate and rhythm with systolic ejection murmur at the left sternal border, no rubs or gallops. S1 and S2 heard. ABDOMEN: Soft, nontender. Bowel sounds are heard. No organomegaly noted. EXTREMITIES: No evidence of peripheral edema and no calf tenderness noted. VASCULAR: Radial and dorsalis pedis pulses palpated, no evidence of clubbing. NEUROLOGIC: Patient is awake, alert and oriented x3. - Labs CBC & Chem 7: 02/02/19 05:52 02/03/19 04:18 Labs: Abnormal Lab Results - Last 24 Hours (Table) 02/03/19 02/03/19 02/03/19 Range/Units 16:26 19:24 20:28 POC Glucose (mg/dL) 295 H 300 H 213 H (75-99) mg/dL 02/04/19 02/04/19 Range/Units 05:56 11:23 POC Glucose (mg/dL) 117 H 343 H (75-99) mg/dL Assessment and Plan Plan: ASSESSMENT #1Atrial fibrillation with slow ventricular response maintained on sotalol 160 mg twice a day. Status post implantation of a permanent pacemaker #2Hyperkalemia, on enalapril which was recently cut in half at last office visit for hyperkalemia 01/16/2019 #3History of coronary artery disease status post stent placement to the proximal diagonal branch in May 2018 maintained on dual antiplatelet therapy #4COPD #5Hypertension, uncontrolled. #6Dyslipidemia #7Diabetes mellitus #8Chronic nicotine dependence Plan Patient may be able to be discharged home from our perspective, we'll make him a follow-up appointment with Dr. Morgan in the device clinic on discharge. Coumadin will be discontinued and patient will be discharged home on Eliquis 2- 1/2 mg one tablet by mouth twice a day along with Plavix, no aspirin. Atenolol will be discontinued and patient will be started on Coreg for more optimal blood pressure control. DNP note has been reviewed, I agree with a documented findings and plan of care. Patient was seen and examined.
[2019-02-04] MEDS ORDERED: WARFARIN 2.5 MG TAB PO SCH (18:00)
[2019-02-04] MEDS ORDERED: APIXABAN 2.5 MG TABLET PO SCH (21:00)
--- NOTE | 2019-02-05 08:44 | CDI ---
This patient has cardiovascular hypertension urgency Documentation Clarification Form Date: 02/05/2019 8:15:17 AM From: Lauren RoblesAnnaVITO rios, CCDS Admit Date: 02/02/2019 1:18:00 PM Patient Name: Jim Lieberman Visit Number: [id number] Discharge Date: 02/04/2019 2:38:00 PM ATTENTION: The Clinical Documentation Specialists (CDI) and [facility] Coding Staff appreciate your assistance in clarifying documentation. Please respond to the clarification below the line at the bottom and electronically sign. The CDI & [facility] Coding staff will review the response and follow-up if needed. Please note: Queries are made part of the Legal Health Record. If you have any questions, please contact the author of this message via ITS. Dr. Jeancarlos Chavarria: Per the 02/02 cardiology progress note: "Hypertension, uncontrolled." History/Risk Factors: CAD status post stent in May 2018, Hypertension, Chronic Atrial Fibrillation, Hyperlipidemia, DM, COPD & chronic nicotine dependence. Clinical Indicators: Presented with bradycardia via ELIUD. Per EMS HR down to 28. BP: 203/97 on admission, 194/89 - 173/87 - 167/84. Lab findings: PT 18.6^, INR 1.9^, APTT 30.7^, Na 136*, K 5.2^, BUN 40^, Cr 1.97^, Gluc 146^. EKG: R 54, sinus bradycardia Treatment: Telemetry, ECHO, Pacemaker insertion 02/03, Nitropaste, IV fluid bolus, Nitro sl, po Apresoline, Hydrodiuril, Plavix, Lopressor, Metoprolol, Eliquis. In your professional opinion, can you please specificity the following: Hypertensive Crisis o Urgency Primary Pulmonary Hypertension o Emergency Cardivascular Hypertension Emergency o Cardiovascular o Other Other, please specify: Unable to determine (Last Revision: February 2018) Hypertension emergency MTDD
[2019-02-05] MEDS ORDERED: amLODIPine 10 MG TAB PO SCH (09:00)
[2019-02-05] MEDS ORDERED: CLOPIDOGREL 75 MG TAB PO SCH (09:00)
--- NOTE | 2019-02-05 13:35 | CDI ---
Documentation Clarification Form Date: 02/05/2019 From: Claire Bhavesh Shahida Yin, [employer] Officer Hours-8:30 am & 5 pm M-F Admit Date: 02/02/2019 1:18:00 PM Patient Name: Jim Lieberman Visit Number: [id number] Discharge Date: 02/04/2019 2:38:00 PM ATTENTION: The Clinical Documentation Specialists (CDI) and [facility] Coding Staff appreciate your assistance in clarifying documentation. Please respond to the clarification below the line at the bottom and electronically sign. The CDI & [facility] Coding staff will review the response and follow-up if needed. Please note: Queries are made part of the Legal Health Record. If you have any questions, please contact the author of this message via ITS. Dr. Hiral Link Chronic CHF is documented in the H&P. History/Risk Factors: SSS, DM, CKD SIII, PAF, VS/Pulse OX: p-54, R-18, BP-203/97, O2 sat-98 BNP: 1510 Echocardiogram Results: left ventricular systolic function is normal w EF between 60-65% Chest X Ray: There may be some underlying scarring, basilar atelectasis, bronchiectasis. Treatment: Lasix 20 mg po daily prn In your professional opinion, can you please clarify the type of CHF if known? Systolic Heart Failure Diastolic Heart Failure Systolic & Diastolic Heart Failure Unable to Determine Other, please specify Systolic Heart Failure MTDD
== END 2019-02-04 14:38 | disposition home or self-care (01) | DRG 243 ==
LOC: EC 10:09 → 1SOBS 11:57 → OBSVTOIN 02-02 13:18 → 3SCARD 02-03 15:34
PROVIDERS: ADMIT Internal Medicine; ATTEND Internal Medicine
PROC: 02H63JZ Insertion of Pacemaker Lead into Right Atrium, Percutaneous Approach (ICD-10-PCS; 2019-02-03)
PROC: 02HK3JZ Insertion of Pacemaker Lead into Right Ventricle, Percutaneous Approach (ICD-10-PCS; 2019-02-03)
PROC: B51N1ZA Fluoroscopy of Left Upper Extremity Veins using Low Osmolar Contrast, Guidance (ICD-10-PCS; 2019-02-03)
PROC: 0JH606Z Insertion of Pacemaker, Dual Chamber into Chest Subcutaneous Tissue and Fascia, Open Approach (ICD-10-PCS; principal; 2019-02-03 10:30)
DX: I49.5 Sick sinus syndrome (principal); N17.9 Acute kidney failure, unspecified; I13.0 Hypertensive heart and chronic kidney disease with heart failure and stage 1 through stage 4 chronic kidney disease, or unspecified chronic kidney disease; I16.1 Hypertensive emergency; I50.22 Chronic systolic (congestive) heart failure; I48.92 Unspecified atrial flutter; E11.22 Type 2 diabetes mellitus with diabetic chronic kidney disease; E11.40 Type 2 diabetes mellitus with diabetic neuropathy, unspecified; I95.9 Hypotension, unspecified; E87.5 Hyperkalemia; I08.1 Rheumatic disorders of both mitral and tricuspid valves; N18.3 Chronic kidney disease, stage 3 (moderate); K74.60 Unspecified cirrhosis of liver; I48.0 Paroxysmal atrial fibrillation; G25.81 Restless legs syndrome; N40.0 Benign prostatic hyperplasia without lower urinary tract symptoms; J44.9 Chronic obstructive pulmonary disease, unspecified; I25.10 Atherosclerotic heart disease of native coronary artery without angina pectoris; K21.9 Gastro-esophageal reflux disease without esophagitis; E78.5 Hyperlipidemia, unspecified; K90.0 Celiac disease; T50.2X5A Adverse effect of carbonic-anhydrase inhibitors, benzothiadiazides and other diuretics, initial encounter; G89.29 Other chronic pain; M54.5 Low back pain; M19.90 Unspecified osteoarthritis, unspecified site; I83.93 Asymptomatic varicose veins of bilateral lower extremities; L98.9 Disorder of the skin and subcutaneous tissue, unspecified; I25.2 Old myocardial infarction; F17.200 Nicotine dependence, unspecified, uncomplicated; Z71.6 Tobacco abuse counseling; Z79.4 Long term (current) use of insulin; Z79.01 Long term (current) use of anticoagulants; Z79.02 Long term (current) use of antithrombotics/antiplatelets; Z79.899 Other long term (current) drug therapy; Z77.090 Contact with and (suspected) exposure to asbestos; Z90.49 Acquired absence of other specified parts of digestive tract; Z95.5 Presence of coronary angioplasty implant and graft; Z98.42 Cataract extraction status, left eye; Z98.41 Cataract extraction status, right eye; Z96.1 Presence of intraocular lens; Z88.1 Allergy status to other antibiotic agents; Z88.0 Allergy status to penicillin; Z88.2 Allergy status to sulfonamides; Z88.8 Allergy status to other drugs, medicaments and biological substances; Z91.018 Allergy to other foods; Z83.3 Family history of diabetes mellitus; Z82.49 Family history of ischemic heart disease and other diseases of the circulatory system
CPT/HCPCS: 33208; 36415; 71046; 80048; 80053; 80061; 83735; 83880; 84443; 84484; 85025; 85027; 85379; 85610; 85730; 93005; 93306; 94760; 96360; 99285

== ENCOUNTER 2019-02-12 19:22 | Inpatient (IN) | payer MEDICARE ==
[2019-02-12] MEDS ORDERED: SODIUM CHLORIDE 0.9% 500 ML 500 ML IV STA (20:13)
[2019-02-12] MEDS ORDERED: LORazepam 2 MG/ML INJ IV STA (20:14)
[2019-02-12] MEDS ORDERED: DILTIAZEM 125 MG in SODIUM CHLORIDE 0.9% 100 ML IV SCH (20:15)
--- NOTE | 2019-02-12 20:23 | ED ---
Chest Pain HPI - General Source: patient, EMS Mode of arrival: EMS Limitations: no limitations <Mamie Gay - Last Filed: 02/12/19 22:48> <Codie Flores - Last Filed: 02/13/19 22:35> - General Chief Complaint: Chest Pain Stated Complaint: palpitations Time Seen by Provider: 02/12/19 20:02 - History of Present Illness Initial Comments: 63-year-old male patient with past medical history significant for atrial fibrillation, coronary artery disease, heart failure, diabetes, COPD, hypertension, hyperlipidemia, myocardial infarction presents to the emergency department today with complaints of chest pain, shortness of breath, and palpitations. Patient states that he was recently admitted and had a pacemaker inserted for atrial fibrillation. Patient states he has felt like he is in A. fib since being discharged on February 02. Patient states that he has been unable to sleep. States he has had approximately 2 hours of sleep per day since being discharged. Patient states today he started to feel worse. States he is feeling short of breath, some substernal chest pain radiating up into his throat , and some dizziness. He describes the pain as an aching feeling. Patient is unsure if this is anxiety related to not sleeping. States he has been taking his medications as directed. He does report a productive cough over states he is a smoker. Patient denies any recent rash, fever, chills, abdominal pain, nausea, vomiting, diarrhea, constipation, back pain, numbness, tingling, hematuria, dysuria, urinary urgency, urinary frequency, headache, visual changes, or any other complaints. (Mamie Gay) - Related Data Home Medications Medication Instructions Recorded Confirmed Insulin Detemir (Levemir) [Levemir] 28 unit SQ HS 08/18/14 02/12/19 Fluticasone Nasal [place] [Flonase 1 spray EA NOSTRIL BID PRN 05/12/16 02/12/19 Nasal [place]] Pravastatin Sodium [Pravachol] 40 mg PO HS 12/06/17 02/12/19 Cholecalciferol [Vitamin D3] 3,000 unit PO DAILY 08/26/18 02/12/19 Enalapril [Vasotec] 10 mg PO DAILY 01/16/19 02/12/19 Isosorbide Mononitrate ER [Imdur] 30 mg PO DAILY 01/16/19 02/12/19 Pantoprazole [Protonix] 40 mg PO DAILY 01/16/19 02/12/19 INSULIN ASPART (NovoLOG) [NovoLOG See Protocol SQ TID-W/MEALS 02/12/19 02/12/19 (formulary)] Magnesium Citrate 250 mg PO DAILY 02/12/19 02/12/19 Metoprolol Tartrate [Lopressor] 50 mg PO BID 02/12/19 02/12/19 Montelukast [Singulair] 10 mg PO DAILY 02/12/19 02/12/19 amLODIPine [Norvasc] 5 mg PO DAILY 02/12/19 02/12/19 Previous Rx's Medication Instructions Recorded hydrALAZINE HCL [Apresoline] 100 mg PO TID #90 tab 06/07/18 Nitroglycerin Sl Tabs [Nitrostat] 0.4 mg SUBLINGUAL Q5M PRN #25 tab 06/28/18 Apixaban [Eliquis] 2.5 mg PO BID #60 tab 02/04/19 Clopidogrel [Plavix] 75 mg PO DAILY tab 02/04/19 Allergies Allergy/AdvReac Type Severity Reaction Status Date / Time amoxicillin Allergy Anaphylaxis Verified 02/12/19 20:29 cephalexin monohydrate Allergy Rash/Hives Verified 02/12/19 20:29 [From Keflex] clindamycin Allergy Rash/Hives Verified 02/12/19 20:29 gluten Allergy Unknown Verified 02/12/19 20:29 Penicillins Allergy Rash/Hives Verified 02/12/19 20:29 Sulfa (Sulfonamide Allergy Anaphylaxis Verified 02/12/19 20:29 Antibiotics) sulfamethoxazole Allergy Anaphylaxis Verified 02/12/19 20:29 [From Bactrim] trimethoprim [From Bactrim] Allergy Anaphylaxis Verified 02/12/19 20:29 amlodipine AdvReac Swelling Verified 02/12/19 20:29 carvedilol AdvReac STOMACH Verified 02/12/19 20:29 CRAMPS Review of Systems ROS Other: All systems not noted in ROS Statement are negative. <Mamie Gay M - Last Filed: 02/12/19 22:48> ROS Other: All systems not noted in ROS Statement are negative. <Codie Flores - Last Filed: 02/13/19 22:35> ROS Statement: Those systems with pertinent positive or pertinent negative responses have been documented in the HPI. EKG Findings - EKG Comments: EKG Findings:: EKG obtained at 1938 shows atrial fibrillation with RVR, ventricular rate is 101, QRS duration 94, QT 344, QTC 446. No evidence of ST elevation or depression. <Mamie Gay Emerita - Last Filed: 02/12/19 22:48> Past Medical History Past Medical History: Atrial Fibrillation, Coronary Artery Disease (CAD), Chest Pain / Angina, Heart Failure, COPD, Diabetes Mellitus, GERD/Reflux, Hyperlipidemia, Hypertension, Liver Disease, Myocardial Infarction (HI), Renal Disease, Skin Disorder Additional Past Medical History / Comment(s): IDDM type II, neuropathy bilateral feet, nephropathy-ckd stage III, chronic CHF, liver cirrhosis, BPH, DJD, herniated discs low back, chronic low back pain, DJD, varicose veins bilaterally, anemia, past asbestos exposure, celiac disease, BPH. Last Myocardial Infarction Date:: 06/2018 History of Any Multi-Drug Resistant Organisms: None Reported Past Surgical History: Cholecystectomy, Heart Catheterization With Stent, Tonsillectomy Additional Past Surgical History / Comment(s): PCI with STENTS, bilateral cataracts removed with lens implants, colonoscopy. Past Anesthesia/Blood Transfusion Reactions: No Reported Reaction Date of Last Stent Placement:: 2017 Smoking Status: Current every day smoker - Past Family History Mother Family Medical History: Diabetes Mellitus Father Family Medical History: Myocardial Infarction (HI) Additional Family Medical History / Comment(s): Father had a HI in his 70s. Brother(s) Family Medical History: Myocardial Infarction (HI) Additional Family Medical History / Comment(s): Brother had a HI in his 50s. <Mamie Gay - Last Filed: 02/12/19 22:48> General Exam Limitations: no limitations General appearance: alert, in no apparent distress, other (This is a well- developed, well-nourished adult male patient in no acute distress. Vital signs upon presentation reveal temperature 98.3F, pulse 103, respirations 18, blood pressure 140/101, pulse ox 93% on room air.) Eye exam: Present: normal appearance, PERRL, EOMI. Absent: scleral icterus, conjunctival injection, periorbital swelling ENT exam: Present: normal exam, normal oropharynx, mucous membranes moist Respiratory exam: Present: normal lung sounds bilaterally. Absent: respiratory distress, wheezes, rales, rhonchi, stridor Cardiovascular Exam: Present: tachycardia, irregular rhythm, normal heart sounds. Absent: regular rate, normal rhythm, systolic murmur, diastolic murmur, rubs, gallop, clicks GI/Abdominal exam: Present: soft, normal bowel sounds. Absent: distended, tenderness, guarding, rebound, rigid Neurological exam: Present: alert, oriented X3, CN II-XII intact Psychiatric exam: Present: normal affect, normal mood Skin exam: Present: warm, dry, intact, normal color. Absent: rash <Mamie Gay - Last Filed: 02/12/19 22:48> Course Vital Signs 02/12/19 02/12/19 02/12/19 19:37 21:57 23:05 Temperature 98.3 F 97.9 F 98.6 F Pulse Rate 103 H 101 H Pulse Rate [ 106 H Pulse Oximetery ] Respiratory 18 16 15 Rate Blood Pressure 140/101 134/89 Blood Pressure 147/75 [Left Arm] O2 Sat by Pulse 93 L 95 93 L Oximetry Chest Pain MDM <Mamie Gay M - Last Filed: 02/12/19 22:48> <Codie Flores - Last Filed: 02/13/19 22:35> - [facility] RADIOLOGY:Two-view x-ray of the chest is obtained. Report was reviewed in its entirety. Impression by Dr. Dalila Alamo shows new small right pleural effusion with current evidence of minimal interstitial phase pulmonary edema. MDM: 63-year-old male patient percents to the emergency department today for evaluation of chest pain and shortness of breath. Patient states he has felt like he is been in A. fib for the past week. Physical examination is unremarkable. Lungs are clear to auscultation with good air movement. Labs reviewed and are relatively unremarkable. Troponin is negative. EKG showed A. fib with RVR. Patient does have reported a heart rate in the 140s by EMS. Did start Cardizem which did decrease her rate to the 90s but patient remains in A. fib. He is anticoagulated with Eliquis and Plavix. Given patient's extensive cardiac history we'll admit to the hospital for repeat troponins and cardiology consultation. I did discuss findings, results, plan with the patient. He is agreeable. (Mamie Gay) I was available for consultation in the emergency department. The history and physical exam were done by the midlevel provider. I was consulted for this patient's care. I reviewed the case with the midlevel provider and based on their presentation of the patient, I agree with the assessment, medical decision making and plan of care as documented. (Codie Flores) Disposition Decision to Admit Reason: Admit from EC Decision Date: 02/12/19 Decision Time: 22:48 <Mamie Gay - Last Filed: 02/12/19 22:48> <Codie Flores - Last Filed: 02/13/19 22:35> Clinical Impression: Atrial fibrillation with RVR, Chest pain Disposition: ADMITTED IP TO THIS [facility] Condition: Serious
[2019-02-12 20:35] LABS: Basophils % (A) 0 %; Eosinophils # (A) 0.2 k/uL (0-0.7); Eosinophils % (A) 1 %; HCT 35.7 % (39.0-53.0); HGB 11.7 gm/dL (13.0-17.5); Lymphocytes # (A) 0.7 k/uL (1.0-4.8); Lymphocytes % (A) 5 %; MCHC 32.8 g/dL (31.0-37.0); MCV 91.4 fL (80.0-100.0); Mean Platelet Volume 8.7; Monocytes # (A) 0.7 k/uL (0-1.0); Monocytes % (A) 5 %; Neutrophils # (A) 11.4 k/uL (1.3-7.7); Neutrophils % (A) 87 %; Platelet Count 202 k/uL (150-450); RBC 3.91 m/uL (4.30-5.90); RDW 14.4 % (11.5-15.5); WBC 13.1 k/uL (3.8-10.6)
[2019-02-12 20:44] LABS: Albumin 3.2 g/dL (3.5-5.0); Calcium 7.9 mg/dL (8.4-10.2); Magnesium 1.8 mg/dL (1.6-2.3); Potassium 3.8 mmol/L (3.5-5.1); Total Bilirubin 0.8 mg/dL (0.2-1.3); Total Protein 5.9 g/dL (6.3-8.2)
[2019-02-12 20:47] LABS: INR 1.1 (<1.2); Partial Thromboplastin Time 29.6 sec (22.0-30.0); Prothrombin Time 11.4 sec (9.0-12.0)
--- NOTE | 2019-02-12 21:03 | XR ---
EXAMINATION: XR chest 2V DATE AND TIME: 02/12/2019 8:41 PM CLINICAL INDICATION: PHH; dysrhythmia TECHNIQUE: Departmental protocol COMPARISON: 02/04/2019 FINDINGS: The lungs show a subtle pattern of pulmonary vasculature silhouetting, by a fine reticular pattern of increased density region in the periphery is occasional septal lines. These findings are consistent with a clinical diagnosis of minimal interstitial phase pulmonary edema - new when compared with the prior study. The pleural spaces are positive for a new small right pleural effusion. Cardiac pacemaker and EKG leads. The cardiac silhouette is mildly enlarged. The remainder of the medi astinal silhouette is unremarkable. The skeletal structures and soft tissues are negative for acute findings. IMPRESSION: New small right pleural effusion, with current evidence of minimal interstitial phase pulmonary edema .
[2019-02-12] MEDS ORDERED: MORPHINE SULFATE 4 MG/ML SYRINGE IV PRN (22:39)
[2019-02-12] MEDS ORDERED: ONDANSETRON 4 MG/2 ML VIAL IVP PRN (22:39)
[2019-02-12] MEDS ORDERED: NALOXONE 0.4 MG/ML 1 ML VIAL IV PRN (22:39)
[2019-02-12] MEDS ORDERED: LORazepam 2 MG/ML INJ IV PRN (22:39)
[2019-02-12] MEDS ORDERED: NITROGLYCERIN SL TABS 0.4 MG TAB SUBLINGUAL PRN (22:45)
[2019-02-12] MEDS ORDERED: FLUTICASONE 50MCG/SPRAY NASAL 16GM EA NOSTRIL PRN (22:45)
[2019-02-13 00:18] VITALS: BMI 29.0
[2019-02-13 06:07] LABS: Glucose,Whole Blood 237 mg/dL (75-99)
[2019-02-13] MEDS: INSULIN ASPART (NovoLOG) 100 UNIT/ML VIAL SQ SCH ×3 (06:54→16:40)
[2019-02-13] MEDS: ISOSORBIDE MONONITRATE ER 30 MG TAB.ER.24H PO SCH (07:51)
[2019-02-13] MEDS: CHOLECALCIFEROL 1,000 UNIT TAB PO SCH (07:51)
[2019-02-13] MEDS: PANTOPRAZOLE 40 MG TABLET PO SCH (07:51)
[2019-02-13] MEDS: CLOPIDOGREL 75 MG TAB PO SCH (07:51)
[2019-02-13] MEDS: MONTELUKAST 10 MG TAB PO SCH (07:51)
[2019-02-13] MEDS: LISINOPRIL 10 MG TAB PO SCH (07:51)
[2019-02-13] MEDS ORDERED: APIXABAN 2.5 MG TABLET PO SCH (09:00)
[2019-02-13] MEDS ORDERED: MAGNESIUM CITRATE 250 MG PO SCH (09:00)
[2019-02-13] MEDS ORDERED: METOPROLOL TARTRATE 50 MG TAB PO SCH ×2 (09:00→16:00)
[2019-02-13] MEDS ORDERED: amLODIPine 5 MG TAB PO SCH (09:00)
[2019-02-13] MEDS ORDERED: hydrALAZINE HCL 50 MG TAB PO SCH (09:00)
[2019-02-13] MEDS ORDERED: ACETAMINOPHEN TAB 325 MG TAB PO PRN (10:01)
[2019-02-13] MEDS ORDERED: APIXABAN 2.5 MG TABLET PO ONE (11:00)
[2019-02-13] MEDS: ALPRAZolam 0.25 MG TAB PO SCH ×3 (11:07→21:34)
[2019-02-13] MEDS: DILTIAZEM ORAL 30 MG TAB PO SCH ×3 (11:07→21:39)
--- NOTE | 2019-02-13 11:44 | P.CRDCN ---
History of Present Illness Consult date: 02/13/19 Requesting physician: Pamela Arthur Consult reason: atrial fibrillation Chief complaint: Palpitations and anxiety History of present illness: This is a 63-year-old gentleman with past medical history significant for coronary artery disease, most recently patient underwent stenting of the proximal diagonal in May 2018 and prior to that he had circumflex stenting in proximal diagonal stenting. Patient also has history of paroxysmal atrial fibrillation, hypertension, hyperlipidemia, diabetes, COPD, chronic nicotine dependence, and most recently was in the hospital earlier this month at which time he underwent implantation of a permanent pacemaker for tachybradycardia syndrome. He follows regularly with Dr. Morgan in the office. Admitted on this occasion with symptoms of palpitations, inability to sleep. His EKG on admission here showed atrial fibrillation with a rapid ventricular response. Chest x-ray showed a new small right pleural effusion and minimal interstitial phase pulmonary edema. Blood pressure 124/60 with a heart rate in the 80s, 94% on room air. He did have a low-grade temperature of 100.1. White blood cell count 13.1, hemoglobin 11.7, platelet count 202. Sodium 127, potassium 3.8, BUN 48 and creatinine 1.7. Troponins 0.015, 0.015, 0.025. TSH 0.93. Patient was seen and examined this morning, quite concerned at these repeated episodes where he feels palpitations and, also complaining of the fact that he's not been able to sleep related to this. Past Medical History Past Medical History: Atrial Fibrillation, Coronary Artery Disease (CAD), Chest Pain / Angina, Heart Failure, COPD, Diabetes Mellitus, GERD/Reflux, Hyperlipidemia, Hypertension, Liver Disease, Myocardial Infarction (VT), Renal Disease, Skin Disorder Additional Past Medical History / Comment(s): IDDM type II, neuropathy bilateral feet, nephropathy-ckd stage III, chronic CHF, liver cirrhosis, BPH, DJD, herniat ed discs low back, chronic low back pain, DJD, varicose veins bilaterally, anemia, past asbestos exposure, celiac disease, BPH. Last Myocardial Infarction Date:: 06/2018 History of Any Multi-Drug Resistant Organisms: None Reported Past Surgical History: Cholecystectomy, Heart Catheterization With Stent, Tonsillectomy Additional Past Surgical History / Comment(s): PCI with STENTS, bilateral cataracts removed with lens implants, colonoscopy. Catarac Removal Past Anesthesia/Blood Transfusion Reactions: No Reported Reaction Date of Last Stent Placement:: 2017 Past Psychological History: No Psychological Hx Reported Additional Psychological History / Comment(s): lives at home with his , worked for [employer], no service. pt is independant,no cane or walker and no outside services. Smoking Status: Current every day smoker Past Alcohol Use History: None Reported Additional Past Alcohol Use History / Comment(s): Patient stated smoking in 1967 and is a half pack a day smoker. He used to drink heavily but since 2008 he drinks rarely. Past Drug Use History: None Reported - Past Family History Mother Family Medical History: Diabetes Mellitus Father Family Medical History: Myocardial Infarction (VT) Additional Family Medical History / Comment(s): Father had a VT in his 70s. Brother(s) Family Medical History: Myocardial Infarction (VT) Additional Family Medical History / Comment(s): Brother had a VT in his 50s. Medications and Allergies Home Medications Medication Instructions Recorded Confirmed Type Insulin Detemir (Levemir) [Levemir] 28 unit SQ HS 08/18/14 02/12/19 History Fluticasone Nasal [place] [Flonase 1 spray EA NOSTRIL BID PRN 05/12/16 02/12/19 History Nasal [place]] Pravastatin Sodium [Pravachol] 40 mg PO HS 12/06/17 02/12/19 History hydrALAZINE HCL [Apresoline] 100 mg PO TID #90 tab 06/07/18 02/12/19 Rx Nitroglycerin Sl Tabs [Nitrostat] 0.4 mg SUBLINGUAL Q5M PRN #25 tab 06/28/18 02/12/19 Rx Cholecalciferol [Vitamin D3] 3,000 unit PO DAILY 08/26/18 02/12/19 History Enalapril [Vasotec] 10 mg PO DAILY 01/16/19 02/12/19 History Isosorbide Mononitrate ER [Imdur] 30 mg PO DAILY 01/16/19 02/12/19 History Pantoprazole [Protonix] 40 mg PO DAILY 01/16/19 02/12/19 History Apixaban [Eliquis] 2.5 mg PO BID #60 tab 02/04/19 02/12/19 Rx Clopidogrel [Plavix] 75 mg PO DAILY tab 02/04/19 02/12/19 Rx INSULIN ASPART (NovoLOG) [NovoLOG See Protocol SQ TID-W/MEALS 02/12/19 02/12/19 History (formulary)] Magnesium Citrate 250 mg PO DAILY 02/12/19 02/12/19 History Metoprolol Tartrate [Lopressor] 50 mg PO BID 02/12/19 02/12/19 History Montelukast [Singulair] 10 mg PO DAILY 02/12/19 02/12/19 History amLODIPine [Norvasc] 5 mg PO DAILY 02/12/19 02/12/19 History Allergies Allergy/AdvReac Type Severity Reaction Status Date / Time amoxicillin Allergy Anaphylaxis Verified 02/12/19 20:29 cephalexin monohydrate Allergy Rash/Hives Verified 02/12/19 20:29 [From Keflex] clindamycin Allergy Rash/Hives Verified 02/12/19 20:29 gluten Allergy Unknown Verified 02/12/19 20:29 Penicillins Allergy Rash/Hives Verified 02/12/19 20:29 Sulfa (Sulfonamide Allergy Anaphylaxis Verified 02/12/19 20:29 Antibiotics) sulfamethoxazole Allergy Anaphylaxis Verified 02/12/19 20:29 [From Bactrim] trimethoprim [From Bactrim] Allergy Anaphylaxis Verified 02/12/19 20:29 amlodipine AdvReac Swelling Verified 02/12/19 20:29 carvedilol AdvReac STOMACH Verified 02/12/19 20:29 CRAMPS Physical Exam Vitals: Vital Signs Temp Pulse Pulse Resp BP BP Pulse Ox 02/13/19 08:00 100.1 F H 93 18 134/73 98 02/13/19 04:00 98.3 F 105 H 15 95 02/13/19 00:00 106 H 15 02/12/19 23:05 98.6 F 106 H 15 147/75 93 L 02/12/19 21:57 97.9 F 101 H 16 134/89 95 02/12/19 19:37 98.3 F 103 H 18 140/101 93 L Intake and Output 02/12/19 02/13/19 02/13/19 22:59 06:59 14:59 Intake Total 240 Balance 240 Intake: Oral 240 Other: # Voids 1 Weight 87.997 kg 89.4 kg 63-year-old gentleman in no acute distress at the time of my examination HEENT: Head is atraumatic, normocephalic. Pupils equal, round. Sclera anicteric. Conjunctiva are clear. Mucous membranes of the mouth are moist. N maryanne is supple. There is no elevated jugular venous pressure. No carotid bruit is heard. HEART EXAMINATION: Heart S1-S2 irregularly irregular a systolic ejection murmur is heard. CHEST EXAMINATION: Lungs reveal some mild scattered wheezing throughout. ABDOMEN: Soft, nontender. Bowel sounds are heard. No organomegaly noted. EXTREMITIES: 2+ peripheral pulses with trace evidence of peripheral edema and no calf tenderness noted. NEUROLOGIC patient is awake, alert and oriented 3 . . Results 02/12/19 19:45 02/12/19 19:45 Cardiac Enzymes 02/12/19 02/12/19 02/13/19 Range/Units 19:45 19:45 00:56 AST 37 (17-59) U/L Troponin I 0.015 0.015 (0.000-0.034) ng/mL 02/13/19 Range/Units 07:15 AST (17-59) U/L Troponin I 0.025 (0.000-0.034) ng/mL Coagulation 02/12/19 Range/Units 19:45 PT 11.4 (9.0-12.0) sec APTT 29.6 (22.0-30.0) sec CBC 02/12/19 Range/Units 19:45 WBC 13.1 H (3.8-10.6) k/uL RBC 3.91 L (4.30-5.90) m/uL Hgb 11.7 L (13.0-17.5) gm/dL Hct 35.7 L (39.0-53.0) % Plt Count 202 (150-450) k/uL Comprehensive Metabolic Panel 02/12/19 Range/Units 19:45 Sodium 127 L (137-145) mmol/L Potassium 3.8 (3.5-5.1) mmol/L Chloride 90 L (98-107) mmol/L Carbon Dioxide 26 (22-30) mmol/L BUN 48 H (9-20) mg/dL Creatinine 1.70 H (0.66-1.25) mg/dL Glucose 183 H (74-99) mg/dL Calcium 7.9 L (8.4-10.2) mg/dL AST 37 (17-59) U/L ALT 52 (21-72) U/L Alkaline Phosphatase 117 (38-126) U/L Total Protein 5.9 L (6.3-8.2) g/dL Albumin 3.2 L (3.5-5.0) g/dL Current Medications Generic Name Dose Route Start Last Admin Trade Name Freq PRN Reason Stop Dose Admin Acetaminophen 650 mg 02/13/19 10:01 Tylenol Tab PO Q4HR PRN Fever and/ or MILD Pain Alprazolam 0.25 mg 02/13/19 11:00 02/13/19 11:11 Xanax PO Not Given BID [facility] Apixaban 5 mg 02/13/19 21:00 Eliquis PO BID [facility] Cholecalciferol 3,000 unit 02/13/19 09:00 02/13/19 07:51 Vitamin D3 PO 3,000 unit DAILY [facility] Administration Clopidogrel Bisulfate 75 mg 02/13/19 09:00 02/13/19 07:51 Plavix PO 75 mg DAILY [facility] Administration Diltiazem HCl 90 mg 02/13/19 11:00 02/13/19 11:07 Cardizem Oral PO 90 mg TID [facility] Administration Fluticasone Propionate 1 spray 02/12/19 22:45 Flonase Nasal [place] EA NOSTRIL BID PRN Congestion Insulin Aspart 0 unit 02/13/19 07:30 02/13/19 06:54 Novolog SQ 3 unit TID-W/MEALS [facility] Administration Protocol Insulin Detemir 28 unit 02/13/19 21:00 Levemir SQ HS [facility] Isosorbide Mononitrate 30 mg 02/13/19 09:00 02/13/19 07:51 Imdur PO 30 mg DAILY [facility] Administration Lisinopril 10 mg 02/13/19 09:00 02/13/19 07:51 Zestril PO 10 mg DAILY [facility] Administration Metoprolol Tartrate 75 mg 02/13/19 16:00 Lopressor PO TID [facility] Montelukast Sodium 10 mg 02/13/19 09:00 02/13/19 07:51 Singulair PO 10 mg DAILY [facility] Administration Morphine Sulfate 4 mg 02/12/19 22:39 Morphine Sulfate (Inj) IV Q4HR PRN Severe Pain Naloxone HCl 0.2 mg 02/12/19 22:39 Narcan IV Q2M PRN Opioid Reversal Nitroglycerin 0.4 mg 02/12/19 22:45 Nitrostat SUBLINGUAL Q5M PRN Chest Pain Ondansetron HCl 4 mg 02/12/19 22:39 Zofran IVP Q8HR PRN Nausea And Vomiting Pantoprazole Sodium 40 mg 02/13/19 09:00 02/13/19 07:51 Protonix PO 40 mg DAILY [facility] Administration Pravastatin Sodium 40 mg 02/13/19 21:00 Pravachol PO HS [facility] Intake and Output 02/12/19 02/13/19 02/13/19 22:59 06:59 14:59 Intake Total 240 Balance 240 Intake: Oral 240 Other: # Voids 1 Weight 87.997 kg 89.4 kg 02/12/19 19:45 02/12/19 19:45 EKG Interpretations (text) EKG shows atrial fibrillation with a rapid ventricular response Assessment and Plan Plan: Assessment and plan #1 atrial fibrillation with rapid ventricular response, patient has known his tory of paroxysmal atrial fibrillation #2 recent pacemaker implanted for tachybradycardia syndrome #3 known history of coronary artery disease, most recent stent was placed in May 2018 #4 hypertension #5 COPD #6 diabetes #7 hyperlipidemia #8 chronic nicotine dependence #9 chronic renal insufficiency Plan Patient just had an echocardiogram with Doppler study performed earlier this month which revealed an ejection fraction of 60-65%. We will not repeat an echo on this admission. We will increase metoprolol to 75 mg one tablet by mouth 3 times a day, discontinue Norvasc, discontinue IV Cardizem, increase Eliquis 5 mg one tablet by mouth twice a day, continue Plavix 75 mg daily, add Cardizem 90 mg one tablet by mouth 3 times a day along with some Xanax to the patient's medication regime. DNP note has been reviewed, I agree with a documented findings and plan of care. Patient was seen and examined.
[2019-02-13 11:45] LABS: Glucose,Whole Blood 260 mg/dL (75-99)
[2019-02-13] MEDS: hydrALAZINE HCL 50 MG TAB PO SCH ×2 (16:32→21:42)
[2019-02-13] MEDS: METOPROLOL TARTRATE 50 MG TAB PO SCH ×2 (16:32→21:48)
[2019-02-13 16:47] LABS: Glucose,Whole Blood 286 mg/dL (75-99)
[2019-02-13] MEDS ORDERED: CALCIUM CARBONATE 500 MG CHEWABLE PO PRN (20:46)
[2019-02-13] MEDS ORDERED: TEMAZEPAM 15 MG CAP PO PRN (21:00)
[2019-02-13] MEDS ORDERED: INSULIN DETEMIR (LEVEMIR) 100 UNIT/ML SYR SQ SCH (21:00)
[2019-02-13] MEDS ORDERED: PRAVASTATIN SODIUM 40 MG TAB PO SCH (21:00)
[2019-02-13 21:21] LABS: Glucose,Whole Blood 192 mg/dL (75-99)
[2019-02-13] MEDS: APIXABAN 5 MG TAB PO SCH (22:02)
--- NOTE | 2019-02-13 23:03 | P.HPIM ---
History of Present Illness H&P Date: 02/13/19 Chief Complaint: Palpitations Patient is a 63-year-old male with a known history of atrial fibrillation, coronary artery disease with stent placement in May 28, hypertension, hyperlipidemia, diabetes type 2, history of MO and GERD and CK D stage III who recently underwent permanent pacemaker placement due to tachybradycardia arrhythmia. Patient came to the hospital with complaints of palpitations and unable to sleep for the past 1 week. Patient denied any complaints of chest pain. Patient does have shortness of breath along with palpitations. No cough is from production. No fever no chills. T-max is 101.1. Currently afebrile. EKG showed atrial fibrillation with rapid ventricular rate. Chest x-ray showed new small right pleural effusion and minimal interstitial phase pulmonary edema. Sodium 127, potassium 3.8, BUN 48 and creatinine 1.7 Troponin 0.015, 0.015, Gemma 0.025 TSH 0.936 Patient was given fluid bolus in the ER with normal saline. Patient was started on Cardizem drip in the ER. Currently Cardizem was changed to by mouth. Patient also being converted on metoprolol 25 mg 3 times a day. Review of Systems Constitutional: Patient denies any fever or chills . No generalized weakness or weight loss. Abdomen: Patient denied nausea vomiting and diarrhea and abdominal pain. Cardiovascular: Patient denies any chest pain. Patient does have palpitations and shortness of breath. Respiratory: patient denied any cough is from production. No shortness of breath Neurologic: Patient denied any numbness or tingling headache. Musculoskeletal: Patient denies any complaints of joint swelling or deformity. Skin: Negative Psychiatric: Negative Endocrine: No heat or cold intolerance. No recent weight gain. Genitourinary: No dysuria or hematuria. All other 14 point ROS negative except the above Past Medical History Past Medical History: Atrial Fibrillation, Coronary Artery Disease (CAD), Chest Pain / Angina, Heart Failure, COPD, Diabetes Mellitus, GERD/Reflux, Hyperlipidemia, Hypertension, Liver Disease, Myocardial Infarction (MO), Renal Disease, Skin Disorder Additional Past Medical History / Comment(s): IDDM type II, neuropathy bilateral feet, nephropathy-ckd stage III, chronic CHF, liver cirrhosis, BPH, DJD, he rniated discs low back, chronic low back pain, DJD, varicose veins bilaterally, anemia, past asbestos exposure, celiac disease, BPH. Last Myocardial Infarction Date:: 06/2018 History of Any Multi-Drug Resistant Organisms: None Reported Past Surgical History: Cholecystectomy, Heart Catheterization With Stent, Tonsillectomy Additional Past Surgical History / Comment(s): PCI with STENTS, bilateral cat aracts removed with lens implants, colonoscopy. 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 pt is independant,no cane or walker and no outside services. Smoking Status: Current every day smoker Past Alcohol Use History: None Reported Additional Past Alcohol Use History / Comment(s): Patient stated smoking in 1967 and is a half pack a day smoker. He used to drink heavily but since 2008 he drinks rarely. Past Drug Use History: None Reported - Past Family History Mother Family Medical History: Diabetes Mellitus Father Family Medical History: Myocardial Infarction (MO) Additional Family Medical History / Comment(s): Father had a MO in his 70s. Brother(s) Family Medical History: Myocardial Infarction (MO) Additional Family Medical History / Comment(s): Brother had a MO in his 50s. Medications and Allergies Home Medications Medication Instructions Recorded Confirmed Type Insulin Detemir (Levemir) [Levemir] 28 unit SQ HS 08/18/14 02/12/19 History Fluticasone Nasal [place] [Flonase 1 spray EA NOSTRIL BID PRN 05/12/16 02/12/19 History Nasal [place]] Pravastatin Sodium [Pravachol] 40 mg PO HS 12/06/17 02/12/19 History hydrALAZINE HCL [Apresoline] 100 mg PO TID #90 tab 06/07/18 02/12/19 Rx Nitroglycerin Sl Tabs [Nitrostat] 0.4 mg SUBLINGUAL Q5M PRN #25 tab 06/28/18 02/12/19 Rx Cholecalciferol [Vitamin D3] 3,000 unit PO DAILY 08/26/18 02/12/19 History Enalapril [Vasotec] 10 mg PO DAILY 01/16/19 02/12/19 History Isosorbide Mononitrate ER [Imdur] 30 mg PO DAILY 01/16/19 02/12/19 History Pantoprazole [Protonix] 40 mg PO DAILY 01/16/19 02/12/19 History Apixaban [Eliquis] 2.5 mg PO BID #60 tab 02/04/19 02/12/19 Rx Clopidogrel [Plavix] 75 mg PO DAILY tab 02/04/19 02/12/19 Rx INSULIN ASPART (NovoLOG) [NovoLOG See Protocol SQ TID-W/MEALS 02/12/19 02/12/19 History (formulary)] Magnesium Citrate 250 mg PO DAILY 02/12/19 02/12/19 History Metoprolol Tartrate [Lopressor] 50 mg PO BID 02/12/19 02/12/19 History Montelukast [Singulair] 10 mg PO DAILY 02/12/19 02/12/19 History amLODIPine [Norvasc] 5 mg PO DAILY 02/12/19 02/12/19 History Allergies Allergy/AdvReac Type Severity Reaction Status Date / Time amoxicillin Allergy Anaphylaxis Verified 02/12/19 20:29 cephalexin monohydrate Allergy Rash/Hives Verified 02/12/19 20:29 [From Keflex] clindamycin Allergy Rash/Hives Verified 02/12/19 20:29 gluten Allergy Unknown Verified 02/12/19 20:29 Penicillins Allergy Rash/Hives Verified 02/12/19 20:29 Sulfa (Sulfonamide Allergy Anaphylaxis Verified 02/12/19 20:29 Antibiotics) sulfamethoxazole Allergy Anaphylaxis Verified 02/12/19 20:29 [From Bactrim] trimethoprim [From Bactrim] Allergy Anaphylaxis Verified 02/12/19 20:29 amlodipine AdvReac Swelling Verified 02/12/19 20:29 carvedilol AdvReac STOMACH Verified 02/12/19 20:29 CRAMPS Physical Exam Vitals: Vital Signs Temp Pulse Pulse Resp BP BP Pulse Ox 02/13/19 08:00 100.1 F H 93 18 134/73 98 02/13/19 04:00 98.3 F 105 H 15 95 02/13/19 00:00 106 H 15 02/12/19 23:05 98.6 F 106 H 15 147/75 93 L 02/12/19 21:57 97.9 F 101 H 16 134/89 95 02/12/19 19:37 98.3 F 103 H 18 140/101 93 L Intake and Output 02/12/19 02/13/19 02/13/19 22:59 06:59 14:59 Intake Total 240 Balance 240 Intake: Oral 240 Other: # Voids 1 Weight 87.997 kg 89.4 kg PHYSICAL EXAMINATION: Patient is lying in the bed comfortably, no acute distress, awake alert and oriented.. HEENT: Normocephalic. Neck is supple. Pupils reactive. Nostrils clear. Oral cavity is moist. Ears reveal no drainage. Neck reveals no JVD, carotid bruits, or thyromegaly. CHEST EXAMINATION: Trachea is central. Symmetrical expansion. Right basilar crackles. Lung tobias clear to auscultation and percussion. CARDIAC: Normal S1, S2 with no gallops. Irregular rhythm. ABDOMEN: Soft. Bowel sounds normal. No organomegaly. No abdominal bruits. Extremities: Trace edema. No clubbing or cyanosis Neurologically awake, alert, oriented x3 with well-coordinated movements. No focal deficits noted Skin: No rash or skin lesions. Psychiatric: Coperative. Nonsuicidal Musculoskeletal: No joint swelling or deformity. Normal range of motion. Results CBC & Chem 7: 02/12/19 19:45 02/12/19 19:45 Labs: Abnormal Lab Results - Last 24 Hours (Table) 02/12/19 02/12/19 02/13/19 Range/Units 19:45 19:45 06:05 WBC 13.1 H (3.8-10.6) k/uL RBC 3.91 L (4.30-5.90) m/uL Hgb 11.7 L (13.0-17.5) gm/dL Hct 35.7 L (39.0-53.0) % Neutrophils # 11.4 H (1.3-7.7) k/uL Lymphocytes # 0.7 L (1.0-4.8) k/uL Sodium 127 L (137-145) mmol/L Chloride 90 L (98-107) mmol/L BUN 48 H (9-20) mg/dL Creatinine 1.70 H (0.66-1.25) mg/dL Glucose 183 H (74-99) mg/dL POC Glucose (mg/dL) 237 H (75-99) mg/dL Calcium 7.9 L (8.4-10.2) mg/dL Total Protein 5.9 L (6.3-8.2) g/dL Albumin 3.2 L (3.5-5.0) g/dL Thrombosis Risk Factor Assmnt - DVT/VTE Prophylaxis DVT/VTE Prophylaxis: Pharmacologic Prophylaxis ordered - Choose All That Apply Any of the Below Risk Factors Present?: Yes Each Factor Represents 1 point: History of prior major surgery (<1month), Obesity (BMI >25) Other Risk Factors: Yes Each Risk Factor Represents 2 Points: Age 61-74 years Other congenital or acquired thrombophilia - If yes, enter type in comment: No Thrombosis Risk Factor Assessment Total Risk Factor Score: 4 Thrombosis Risk Factor Assessment Level: Moderate Risk Assessment and Plan Assessment: Atrial fibrillation with rapid ventricular rate Paroxysmal atrial fibrillation on anticoagulation with Eliquis Recent permanent pacemaker placement due to tachybradycardia syndrome Hyponatremia. Likely hypovolemic with elevated BUN level Chronic kidney disease stage III with baseline creatinine around 1.7. History of coronary artery disease with stent placement. Hypertension Hyperlipidemia Diabetes type 2 insulin-dependent COPD Chronic kidney disease stage III Nicotine addiction Plan: Patient was initially started on Cardizem drip. Currently started on Cardizem and metoprolol. Continue with anticoagulation with Eliquis. Recent 2-D echocardiogram showed normal ejection fraction. Cardiology is following. Further recommendations based on the clinical course. Time with Patient: Greater than 30
[2019-02-14 06:16] LABS: Glucose,Whole Blood 133 mg/dL (75-99)
[2019-02-14] MEDS: PANTOPRAZOLE 40 MG TABLET PO SCH (06:50)
[2019-02-14 06:53] LABS: Basophils % (A) 0 %; Eosinophils # (A) 0.2 k/uL (0-0.7); Eosinophils % (A) 3 %; HCT 35.7 % (39.0-53.0); HGB 11.1 gm/dL (13.0-17.5); Lymphocytes # (A) 0.8 k/uL (1.0-4.8); Lymphocytes % (A) 10 %; MCH 28.8 pg (25.0-35.0); MCHC 31.1 g/dL (31.0-37.0); MCV 92.5 fL (80.0-100.0); Mean Platelet Volume 8.1; Monocytes # (A) 0.6 k/uL (0-1.0); Monocytes % (A) 8 %; Neutrophils # (A) 5.9 k/uL (1.3-7.7); Neutrophils % (A) 78 %; Platelet Count 278 k/uL (150-450); RBC 3.86 m/uL (4.30-5.90); RDW 14.4 % (11.5-15.5); WBC 7.6 k/uL (3.8-10.6)
[2019-02-14] MEDS: INSULIN ASPART (NovoLOG) 100 UNIT/ML VIAL SQ SCH ×6 (07:08→15:32)
[2019-02-14 07:14] LABS: Albumin 2.9 g/dL (3.5-5.0); Calcium 8.2 mg/dL (8.4-10.2); Potassium 3.9 mmol/L (3.5-5.1); Total Bilirubin 0.6 mg/dL (0.2-1.3); Total Protein 5.5 g/dL (6.3-8.2)
[2019-02-14 07:41] VITALS: RESP 18
[2019-02-14] MEDS: METOPROLOL TARTRATE 50 MG TAB PO SCH ×2 (07:48→15:13)
[2019-02-14] MEDS: CHOLECALCIFEROL 1,000 UNIT TAB PO SCH (07:48)
[2019-02-14] MEDS: ALPRAZolam 0.25 MG TAB PO SCH (07:48)
[2019-02-14] MEDS: LISINOPRIL 10 MG TAB PO SCH (07:49)
[2019-02-14] MEDS: hydrALAZINE HCL 50 MG TAB PO SCH ×2 (07:49→15:14)
[2019-02-14] MEDS: CLOPIDOGREL 75 MG TAB PO SCH (07:49)
[2019-02-14] MEDS: ISOSORBIDE MONONITRATE ER 30 MG TAB.ER.24H PO SCH (07:49)
[2019-02-14] MEDS: MONTELUKAST 10 MG TAB PO SCH (07:49)
[2019-02-14] MEDS: APIXABAN 5 MG TAB PO SCH (07:49)
[2019-02-14] MEDS: DILTIAZEM ORAL 30 MG TAB PO SCH ×2 (07:49→15:13)
[2019-02-14 12:14] VITALS: BP 122/70; PULSE 72; TEMP 97.2
[2019-02-14 12:26] LABS: Glucose,Whole Blood 115 mg/dL (75-99)
[2019-02-14 15:26] LABS: Glucose,Whole Blood 403 mg/dL (75-99)
== END 2019-02-14 16:10 | disposition home or self-care (01) | DRG 309 ==
LOC: EC 19:22 → 3SCARD 22:31 → UNDOADMIN 22:31 → 3SCARD 02-13 08:42
PROVIDERS: ADMIT Hospitalist; ATTEND Hospitalist
DX: I48.0 Paroxysmal atrial fibrillation (principal); I13.0 Hypertensive heart and chronic kidney disease with heart failure and stage 1 through stage 4 chronic kidney disease, or unspecified chronic kidney disease; E87.1 Hypo-osmolality and hyponatremia; E11.22 Type 2 diabetes mellitus with diabetic chronic kidney disease; E78.5 Hyperlipidemia, unspecified; E86.1 Hypovolemia; F17.210 Nicotine dependence, cigarettes, uncomplicated; F41.9 Anxiety disorder, unspecified; I25.10 Atherosclerotic heart disease of native coronary artery without angina pectoris; I25.2 Old myocardial infarction; I50.9 Heart failure, unspecified; J44.9 Chronic obstructive pulmonary disease, unspecified; K21.9 Gastro-esophageal reflux disease without esophagitis; K74.60 Unspecified cirrhosis of liver; K90.0 Celiac disease; N18.3 Chronic kidney disease, stage 3 (moderate); N40.0 Benign prostatic hyperplasia without lower urinary tract symptoms; Z77.090 Contact with and (suspected) exposure to asbestos; Z79.01 Long term (current) use of anticoagulants; Z79.02 Long term (current) use of antithrombotics/antiplatelets; Z79.4 Long term (current) use of insulin; Z79.899 Other long term (current) drug therapy; Z82.49 Family history of ischemic heart disease and other diseases of the circulatory system; Z83.3 Family history of diabetes mellitus; Z95.0 Presence of cardiac pacemaker; Z95.5 Presence of coronary angioplasty implant and graft; Z98.42 Cataract extraction status, left eye; Z98.41 Cataract extraction status, right eye; Z96.1 Presence of intraocular lens; Z90.49 Acquired absence of other specified parts of digestive tract; G89.29 Other chronic pain; M54.5 Low back pain; M19.90 Unspecified osteoarthritis, unspecified site; Z88.1 Allergy status to other antibiotic agents; Z88.0 Allergy status to penicillin; Z88.2 Allergy status to sulfonamides; Z88.8 Allergy status to other drugs, medicaments and biological substances; I83.93 Asymptomatic varicose veins of bilateral lower extremities; E11.40 Type 2 diabetes mellitus with diabetic neuropathy, unspecified
CPT/HCPCS: 36415; 71046; 80053; 83735; 83880; 84443; 84484; 85025; 85610; 85730; 93005; 96365; 96366; 96375; 99285

== ENCOUNTER 2019-02-15 08:18 | Inpatient (IN) | payer MEDICARE ==
[2019-02-15] MEDS ORDERED: FUROSEMIDE 10 MG/ML 4 ML VIAL IV STA (08:39)
[2019-02-15] MEDS ORDERED: IPRATROPIUM-ALBUTEROL 3 ML NEB INHALATION STA (08:39)
--- NOTE | 2019-02-15 08:41 | ED ---
General Adult HPI - General Chief complaint: Shortness of Breath Stated complaint: SOB/leg swelling Time Seen by Provider: 02/15/19 08:27 Source: patient, RN notes reviewed Mode of arrival: wheelchair Limitations: no limitations - History of Present Illness Initial comments: 63-year-old male with a past medical history significant for Atrial fibrillatio n, CAD, heart failure, COPD, type II IDDM, hyperlipidemia, hypertension, mild cardial infarction with last stent being placed April 2018presents to the emergency department for a chief complaint of shortness of breath. Patient states this has been ongoing for over one week that recently worsened after he was discharged from the hospital yesterday. Patient states that the shortness of breath is worse when he lies down it causes a pressure on his chest. He states that last night he started to notice swelling in his legs. Patient states he was started on amlodipine on the hospital which she has had problems with previously. According to documentation patient was admitted for atrial fibrillation with RVR. He did have a recent pacemaker implanted for tachybradycardia syndrome about a week ago. Patient had an echocardiogram performed earlier this month which revealed a normal ejection fraction of 60-65. Patient states he decided to return to the emergency department after being discharged last night because his symptoms were worsening and his shortness of breath was increasing. Patient has no other complaints at this time including abdominal pain, nausea or vomiting, headache, or visual changes. - Related Data Home Medications Medication Instructions Recorded Confirmed Insulin Detemir (Levemir) [Levemir] 28 unit SQ HS 08/18/14 02/15/19 Fluticasone Nasal [place] [Flonase 1 spray EA NOSTRIL BID PRN 05/12/16 02/15/19 Nasal [place]] Pravastatin Sodium [Pravachol] 40 mg PO HS 12/06/17 02/15/19 Cholecalciferol [Vitamin D3] 3,000 unit PO PC-BRKFST 08/26/18 02/15/19 Isosorbide Mononitrate ER [Imdur] 30 mg PO DAILY 01/16/19 02/15/19 Pantoprazole [Protonix] 40 mg PO DAILY 01/16/19 02/15/19 INSULIN ASPART (NovoLOG) [NovoLOG See Protocol SQ TID-W/MEALS 02/12/19 02/15/19 (formulary)] Montelukast [Singulair] 10 mg PO HS 02/12/19 02/15/19 Clopidogrel [Plavix] 75 mg PO HS 02/15/19 02/15/19 Previous Rx's Medication Instructions Recorded hydrALAZINE HCL [Apresoline] 100 mg PO TID #90 tab 06/07/18 Nitroglycerin Sl Tabs [Nitrostat] 0.4 mg SUBLINGUAL Q5M PRN #25 tab 06/28/18 Apixaban [Eliquis] 2.5 mg PO BID #60 tab 02/04/19 Diltiazem Oral [Cardizem*] 90 mg PO TID #90 tab 02/14/19 Metoprolol Tartrate [Lopressor] 75 mg PO TID #90 tab 02/14/19 Temazepam [Restoril] 15 mg PO HS PRN #5 cap 02/14/19 Allergies Allergy/AdvReac Type Severity Reaction Status Date / Time amoxicillin Allergy Anaphylaxis Verified 02/15/19 08:49 cephalexin monohydrate Allergy Rash/Hives Verified 02/15/19 08:49 [From Keflex] clindamycin Allergy Rash/Hives Verified 02/15/19 08:49 gluten Allergy Unknown Verified 02/15/19 08:49 Penicillins Allergy Rash/Hives Verified 02/15/19 08:49 Sulfa (Sulfonamide Allergy Anaphylaxis Verified 02/15/19 08:49 Antibiotics) sulfamethoxazole Allergy Anaphylaxis Verified 02/15/19 08:49 [From Bactrim] trimethoprim [From Bactrim] Allergy Anaphylaxis Verified 02/15/19 08:49 amlodipine AdvReac Swelling Verified 02/15/19 08:49 carvedilol AdvReac STOMACH Verified 02/15/19 08:49 CRAMPS Review of Systems ROS Statement: Those systems with pertinent positive or pertinent negative responses have been documented in the HPI. ROS Other: All systems not noted in ROS Statement are negative. Past Medical History Past Medical History: Atrial Fibrillation, Coronary Artery Disease (CAD), Chest Pain / Angina, Heart Failure, COPD, Diabetes Mellitus, GERD/Reflux, Hyperlipidemia, Hypertension, Liver Disease, Myocardial Infarction (DE), Renal Disease, Skin Disorder Additional Past Medical History / Comment(s): IDDM type II, neuropathy bilateral feet, nephropathy-ckd stage III, chronic CHF, liver cirrhosis, BPH, DJD, herniated discs low back, chronic low back pain, DJD, varicose veins bilaterally, anemia, past asbestos exposure, celiac disease, BPH. Last Myocardial Infarction Date:: 06/2018 History of Any Multi-Drug Resistant Organisms: None Reported Past Surgical History: Cholecystectomy, Heart Catheterization With Stent, Tonsillectomy Additional Past Surgical History / Comment(s): PCI with STENTS, bilateral cataracts removed with lens implants, colonoscopy. Catarac Removal Past Anesthesia/Blood Transfusion Reactions: No Reported Reaction Date of Last Stent Placement:: 2017 Past Psychological History: No Psychological Hx Reported Smoking Status: Current every day smoker Past Alcohol Use History: None Reported Past Drug Use History: None Reported - Past Family History Mother Family Medical History: Diabetes Mellitus Father Family Medical History: Myocardial Infarction (DE) Additional Family Medical History / Comment(s): Father had a DE in his 70s. Brother(s) Family Medical History: Myocardial Infarction (DE) Additional Family Medical History / Comment(s): Brother had a DE in his 50s. General Exam Limitations: no limitations General appearance: alert, in no apparent distress Head exam: Present: atraumatic, normocephalic, normal inspection Eye exam: Present: normal appearance, PERRL, EOMI. Absent: scleral icterus, conjunctival injection, periorbital swelling ENT exam: Present: normal exam, mucous membranes moist Neck exam: Present: normal inspection, full ROM. Absent: tenderness, meningismus, lymphadenopathy Respiratory exam: Present: wheezes. Absent: respiratory distress, rales, rhonchi, stridor, accessory muscle use Cardiovascular Exam: Present: regular rate, normal rhythm, normal heart sounds. Absent: systolic murmur, diastolic murmur, rubs, gallop, clicks GI/Abdominal exam: Present: soft, normal bowel sounds. Absent: distended, tenderness, guarding, rebound, rigid Extremities exam: Present: pedal edema (3+ pitting edema) Neurological exam: Present: alert, oriented X3, CN II-XII intact Psychiatric exam: Present: normal affect, normal mood Course Vital Signs 02/15/19 02/15/19 02/15/19 08:23 08:53 09:00 Temperature 97.8 F Pulse Rate 72 76 72 Respiratory 24 24 Rate Blood Pressure 116/64 113/72 O2 Sat by Pulse 93 L 91 L Oximetry 02/15/19 02/15/1919 09:02 09:30 10:00 Temperature Pulse Rate 68 73 70 Respiratory 26 H 20 Rate Blood Pressure 124/82 145/88 O2 Sat by Pulse 92 L 92 L Oximetry 02/15/19 02/15/19 02/15/19 10:30 11:00 11:30 Temperature Pulse Rate 69 67 83 Respiratory 18 22 21 Rate Blood Pressure 113/77 126/69 118/76 O2 Sat by Pulse 95 93 L 94 L Oximetry 02/15/19 02/15/19 12:45 12:55 Temperature Pulse Rate 74 74 Respiratory 18 Rate Blood Pressure 122/93 O2 Sat by Pulse 98 Oximetry EKG Findings - EKG Comments: EKG Findings:: Atrial flutter, ventricular rate 68, QRS 102, QTc 467, v-paced intermittently Medical Decision Making - Medical Decision Making 63-year-old male with a past medical history significant for atrial fibrillation, CAD, heart failure, COPD, type II ID DM, hyperlipidemia, hypertension presents to the emergency department for a chief complaint shortness of breath 1 week. Patient was discharged yesterday after atrial fibrillation with RVR was controlled and states his shortness of breath has worsened. Patient initially started on diuretic due to leg edema starting yesterday as well as history of heart failure. On exam patient does have wheezing noted bilaterally. CBC unremarkable. CMP does show hyponatremia however given hyperglycemia this is corrected to 132. Creatinine 1.9 which is at patient's baseline. Given hyponatremia patient was given normal saline. Chest x-ray did show interstitial edema with a progression of right pleural eff usion. Discussed the patient and he agrees to be admitted for further management of shortness of breath. - Lab Data Result diagrams: 02/15/19 08:50 02/15/19 08:50 Lab Results 02/15/19 02/15/19 02/15/19 Range/Units 08:50 08:50 08:50 WBC 8.4 (3.8-10.6) k/uL RBC 3.69 L (4.30-5.90) m/uL Hgb 11.1 L (13.0-17.5) gm/dL Hct 34.2 L (39.0-53.0) % MCV 92.5 (80.0-100.0) fL MCH 30.1 (25.0-35.0) pg MCHC 32.6 (31.0-37.0) g/dL RDW 14.4 (11.5-15.5) % Plt Count 284 (150-450) k/uL Neutrophils % 86 % Lymphocytes % 5 % Monocytes % 6 % Eosinophils % 1 % Basophils % 0 % Neutrophils # 7.2 (1.3-7.7) k/uL Lymphocytes # 0.4 L (1.0-4.8) k/uL Monocytes # 0.5 (0-1.0) k/uL Eosinophils # 0.1 (0-0.7) k/uL Basophils # 0.0 (0-0.2) k/uL PT (9.0-12.0) sec INR (<1.2) APTT (22.0-30.0) sec Sodium 125 L (137-145) mmol/L Potassium 4.2 (3.5-5.1) mmol/L Chloride 88 L (98-107) mmol/L Carbon Dioxide 27 (22-30) mmol/L Anion Gap 10 mmol/L BUN 47 H (9-20) mg/dL Creatinine 1.90 H (0.66-1.25) mg/dL Est GFR (CKD-EPI)AfAm 42 (>60 ml/min/1.73 sqM) Est GFR (CKD-EPI)NonAf 37 (>60 ml/min/1.73 sqM) Glucose 404 H (74-99) mg/dL Calcium 7.9 L (8.4-10.2) mg/dL Total Bilirubin 0.6 (0.2-1.3) mg/dL AST 34 (17-59) U/L ALT 39 (21-72) U/L Alkaline Phosphatase 112 (38-126) U/L Troponin I (0.000-0.034) ng/mL NT-Pro-B Natriuret Pep 4400 pg/mL Total Protein 5.4 L (6.3-8.2) g/dL Albumin 2.9 L (3.5-5.0) g/dL Urine Color Urine Appearance (Clear) Urine pH (5.0-8.0) Ur Specific [place] (1.001-1.035) Urine Protein (Negative) Urine Glucose (UA) (Negative) Urine Ketones (Negative) Urine Blood (Negative) Urine Nitrite (Negative) Urine Bilirubin (Negative) Urine Urobilinogen (<2.0) mg/dL Ur Leukocyte Esterase (Negative) Urine WBC (0-5) /hpf Hyaline Casts (0-2) /lpf 02/15/19 02/15/19 02/15/19 Range/Units 08:50 08:50 09:27 WBC (3.8-10.6) k/uL RBC (4.30-5.90) m/uL Hgb (13.0-17.5) gm/dL Hct (39.0-53.0) % MCV (80.0-100.0) fL MCH (25.0-35.0) pg MCHC (31.0-37.0) g/dL RDW (11.5-15.5) % Plt Count (150-450) k/uL Neutrophils % % Lymphocytes % % Monocytes % % Eosinophils % % Basophils % % Neutrophils # (1.3-7.7) k/uL Lymphocytes # (1.0-4.8) k/uL Monocytes # (0-1.0) k/uL Eosinophils # (0-0.7) k/uL Basophils # (0-0.2) k/uL PT 11.4 (9.0-12.0) sec INR 1.1 (<1.2) APTT 28.7 (22.0-30.0) sec Sodium (137-145) mmol/L Potassium (3.5-5.1) mmol/L Chloride (98-107) mmol/L Carbon Dioxide (22-30) mmol/L Anion Gap mmol/L BUN (9-20) mg/dL Creatinine (0.66-1.25) mg/dL Est GFR (CKD-EPI)AfAm (>60 ml/min/1.73 sqM) Est GFR (CKD-EPI)NonAf (>60 ml/min/1.73 sqM) Glucose (74-99) mg/dL Calcium (8.4-10.2) mg/dL Total Bilirubin (0.2-1.3) mg/dL AST (17-59) U/L ALT (21-72) U/L Alkaline Phosphatase (38-126) U/L Troponin I <0.012 (0.000-0.034) ng/mL NT-Pro-B Natriuret Pep pg/mL Total Protein (6.3-8.2) g/dL Albumin (3.5-5.0) g/dL Urine Color Yellow Urine Appearance Clear (Clear) Urine pH 6.5 (5.0-8.0) Ur Specific [place] 1.008 (1.001-1.035) Urine Protein 1+ H (Negative) Urine Glucose (UA) 3+ H (Negative) Urine Ketones Negative (Negative) Urine Blood Negative (Negative) Urine Nitrite Negative (Negative) Urine Bilirubin Negative (Negative) Urine Urobilinogen <2.0 (<2.0) mg/dL Ur Leukocyte Esterase Negative (Negative) Urine WBC <1 (0-5) /hpf Hyaline Casts 3 H (0-2) /lpf Disposition Clinical Impression: Shortness of breath, Atrial fibrillation, Hyponatremia Disposition: ADMITTED IP TO THIS HOSP Condition: Fair Is patient prescribed a controlled substance at d/c from ED?: No Time of Disposition: 11:14
[2019-02-15 09:11] LABS: Basophils % (A) 0 %; Eosinophils # (A) 0.1 k/uL (0-0.7); Eosinophils % (A) 1 %; HCT 34.2 % (39.0-53.0); HGB 11.1 gm/dL (13.0-17.5); Lymphocytes # (A) 0.4 k/uL (1.0-4.8); Lymphocytes % (A) 5 %; MCH 30.1 pg (25.0-35.0); MCHC 32.6 g/dL (31.0-37.0); MCV 92.5 fL (80.0-100.0); Mean Platelet Volume 7.7; Monocytes # (A) 0.5 k/uL (0-1.0); Monocytes % (A) 6 %; Neutrophils # (A) 7.2 k/uL (1.3-7.7); Neutrophils % (A) 86 %; Platelet Count 284 k/uL (150-450); RBC 3.69 m/uL (4.30-5.90); RDW 14.4 % (11.5-15.5); WBC 8.4 k/uL (3.8-10.6)
--- NOTE | 2019-02-15 09:21 | XR ---
EXAMINATION TYPE: XR chest 2V DATE OF EXAM: 02/15/2019 COMPARISON: Prior chest x-ray 02/12/2019 HISTORY: Difficulty breathing, shortness of breath and leg swelling TECHNIQUE: Frontal and lateral views of the chest are obtained. FINDINGS: There is been interval obscuration of the right hemidiaphragm, blunting of the right costo phrenic angle is again noted. No evident pneumothorax. Blunted left costophrenic angle is stable. Hea rt size is stable. Patient is rotated. Pacemaker is unchanged. No pneumothorax. Interstitium is incre ased. Prominent lung volumes suggest underlying COPD. IMPRESSION: There may be interstitial edema, progression of right pleural effusion and associated at electasis, correlate to exclude pneumonia. Follow-up recommended.
[2019-02-15 09:22] LABS: Albumin 2.9 g/dL (3.5-5.0); Calcium 7.9 mg/dL (8.4-10.2); Potassium 4.2 mmol/L (3.5-5.1); Total Bilirubin 0.6 mg/dL (0.2-1.3); Total Protein 5.4 g/dL (6.3-8.2)
[2019-02-15 09:32] LABS: INR 1.1 (<1.2); Partial Thromboplastin Time 28.7 sec (22.0-30.0); Prothrombin Time 11.4 sec (9.0-12.0)
[2019-02-15] MEDS ORDERED: SODIUM CHLORIDE 0.9% 500 ML 500 ML IV STA (09:47)
[2019-02-15] MEDS ORDERED: INSULIN REGULAR 100 UNIT/ML VIAL IV ONE (09:47)
[2019-02-15 10:10] LABS: Appearance,Urine Clear (Clear); Bilirubin,Urine Negative (Negative); Blood,Urine Negative (Negative); Color,Urine Yellow; Glucose,Urine (UA) 3+ (Negative); Hyaline Casts,Urine 3 /lpf (0-2); Ketones,Urine Negative (Negative); Leukocyte Esterase,Urine Negative (Negative); Nitrite,Urine Negative (Negative); PH, Urine 6.5 (5.0-8.0); Protein,Urine 1+ (Negative); Specific Gravity,Urine 1.008 (1.001-1.035); Urobilinogen,Urine <2.0 mg/dL (<2.0); WBC,Urine <1 /hpf (0-5)
[2019-02-15] MEDS ORDERED: NALOXONE 0.4 MG/ML 1 ML VIAL IV PRN (11:12)
[2019-02-15] MEDS: SODIUM CHLORIDE 0.9% 1,000 ML IV SCH ×2 (11:41→19:53)
[2019-02-15] MEDS: IPRATROPIUM-ALBUTEROL 3 ML NEB INHALATION SCH ×2 (12:45→17:06)
[2019-02-15 12:57] LABS: Glucose,Whole Blood 158 mg/dL (75-99)
[2019-02-15 13:20] LABS: Glucose,Whole Blood 157 mg/dL (75-99)
--- NOTE | 2019-02-15 15:08 | CT ---
EXAMINATION TYPE: CT chest wo con DATE OF EXAM: 02/15/2019 COMPARISON: None HISTORY: Difficulty breathing CT DLP: 388.[address] of the chest was performed with lung and mediastinal window settings submitted. The la ck of contrast limits evaluation of the vascular, mediastinal and parenchymal structures including th e upper abdomen. LUNGS: Moderate right-sided pleural effusion with AP dimension of 4.9 cm. Smaller left-sided pleural effusion with AP dimension of 3.1 cm. There is evidence of right basilar infiltrate and/or atelectasi s. There is also additional coarse infiltrate within the lateral segment right middle lobe. Mild comp ressive atelectasis left lower lobe. MEDIASTINUM/GERMAINE: Thoracic aorta is of normal caliber with limited evaluation given lack of contrast . The heart is mildly enlarged. Small pericardial effusion measuring 7.4 mm greatest transverse dime nsion. No evidence for mediastinal mass. No lymph nodes greater than 1cm. UPPER ABDOMEN: Cirrhotic hepatic morphology. Cholecystectomy clips in place. Renal vascular calcifica tions. OTHER: No significant other abnormality. IMPRESSION: 1. Bilateral pleural effusions right greater than left basilar compressive atelectasis or infiltrate s. Correlate clinically. Small pericardial effusion noted. Coronary artery calcifications identified.
[2019-02-15 16:30] LABS: Glucose,Whole Blood 297 mg/dL (75-99)
[2019-02-15] MEDS ORDERED: NITROGLYCERIN SL TABS 0.4 MG TAB SUBLINGUAL PRN (16:54)
[2019-02-15] MEDS ORDERED: FLUTICASONE 50MCG/SPRAY NASAL 16GM EA NOSTRIL PRN (16:54)
[2019-02-15] MEDS: INSULIN ASPART (NovoLOG) 100 UNIT/ML VIAL SQ SCH ×2 (17:11→20:54)
--- NOTE | 2019-02-15 18:07 | P.CNPUL ---
History of Present Illness Consult date: 02/15/19 Reason for consult: dyspnea History of present illness: His is a 63-year-old male patient who is coming into the hospital after being recently discharged for worsening shortness of breath, exertional dyspnea, orthopnea, lower extremity edema. The patient reports that he has minimal exercise capacity and he gets short of breath upon performing activities of the today life. He feels his lungs are checked especially when he lays down. No co ugh. No sputum production. No hemoptysis. No pleurisy. No chest pain. He is known to have extensive cardiac history. He has known coronary artery disease and his last cardiac catheterization was in June 2018 and the patient has had previous coronary stent insertion in the last catheterization was for a non- STEMI that occurred back in May 2018 and at that Time the patient was found to have critical stenosis of the first diagonal branch and he underwent an depressed and stenting. The patient's echocardiogram from January 2019 shows preserved LV function with an ejection fraction of 6065%. The patient has moderate concentric left ventricular hypertrophy. There is mild aortic valve sclerosis, mild TR, mild pulmonary hypertension with an estimated PA pressure of 42.6. The patient is diabetic. The patient suffers from chronic diabetic kidney disease and the patient has stage III kidney failure probably within the nephrotic range as the patient has significant amount of proteinuria on previous 24-hour urine collection. He has chronic atrial fibrillation. He has hypertension and hyperlipidemia and peripheral neuropathy. He has BPH. He has questionable history of liver cirrhosis in addition. He states that he is very compliant his fluid intake furthermore, the patient had a recent pacemaker insertion and this was inserted for tachybradycardia syndrome. Is on long-term and coagulation with Eliquis. During this current admission, chest x-ray was done and showed better pleural effusion right more than left and for that reason a pulmonary consultation was requested. Patient's BNP level is 4004 100. First set of troponin is negative. Serum albumin is at 2.9. Correlation profile is within normal. Creatinine shows a level of 1.9 with a GFR of 37 consistent with stage III kidney disease. The patient is currently on IV Lasix. CAT scan of the chest was ordered without contrast and that showed cardiomegaly and bilateral pleural effusion right more than left along with compressive atelectatic changes in the right lung base. Review of Systems Constitutional: Reports fatigue, Reports poor appetite, Reports weakness, Rep orts weight gain Eyes: denies as per HPI, denies blurred vision, denies bulging eye, denies decreased vision, denies diplopia, denies discharge, denies dry eye, denies irritation, denies itching, denies pain, denies photophobia, denies loss of peripheral vision, denies loss of vision, denies tunnel vision/blind spots Ears: deny: decreased hearing, ear discharge, earache, tinnitus Ears, nose, mouth and throat: Denies headache, Denies sore throat Cardiovascular: Reports decreased exercise tolerance, Reports dyspnea on exertion, Reports edema, Reports irregular heart beat, Reports leg edema, Repo rts paroxysmal nocturnal dyspnea, Reports shortness of breath Respiratory: Reports dyspnea, Reports home oxygen Gastrointestinal: Reports as per HPI, Reports loss of appetite Genitourinary: Reports as per HPI Musculoskeletal: Reports as per HPI Musculoskeletal: bilateral: ankle swelling, absent: ankle pain, ankle stiffness, as per HPI, elbow pain, elbow stiffness, elbow swelling, foot pain, foot stiffness, foot swelling, hand pain, hand stiffness, hand swelling, hip pain, hip stiffness, hip swelling, knee pain, knee stiffness, knee swelling, shoulder pain, shoulder stiffness, shoulder swelling, wrist pain, wrist stiffness, wrist swelling Integumentary: Denies pruritus, Denies rash Neurological: Reports weakness Psychiatric: Reports as per HPI Endocrine: Reports as per HPI Hematologic/Lymphatic: Reports as per HPI Allergic/Immunologic: Reports as per HPI Past Medical History Past Medical History: Atrial Fibrillation, Coronary Artery Disease (CAD), Chest Pain / Angina, Heart Failure, COPD, Diabetes Mellitus, GERD/Reflux, Hyperlipidemia, Hypertension, Liver Disease, Myocardial Infarction ([place]), Prostate Disorder, Renal Disease, Skin Disorder Additional Past Medical History / Comment(s): Pt recently admitted for tachbrady syndrome and had pacer placed and admitted again 02/13/19 with afib RVR/ R small pleural effusion. Other hx: IDDM type II, neuropathy bilateral feet, nephropathy-ckd stage III, chronic CHF, liver cirrhosis, BPH, DJD, herniated discs low back, chronic low back pain, DJD, varicose veins bilaterally, anemia, past asbestos exposure, celiac disease. Last Myocardial Infarction Date:: 06/2018 History of Any Multi-Drug Resistant Organisms: None Reported Past Surgical History: Cholecystectomy, Heart Catheterization With Stent, Pacemaker, Tonsillectomy Additional Past Surgical History / Comment(s): PCI with STENTS, bilateral cataracts removed with lens implants, colonoscopy. Catarac Removal Past Anesthesia/Blood Transfusion Reactions: No Reported Reaction Date of Last Stent Placement:: 2017 Type of Cardiac Device: Permanent Pacemaker Device Placement Date:: 02/02/19 Smoking Status: Current every day smoker - Past Family History Mother Family Medical History: Diabetes Mellitus Father Family Medical History: Myocardial Infarction ([place]) Additional Family Medical History / Comment(s): Father had a MO in his 70s. Brother(s) Family Medical History: Myocardial Infarction ([place]) Additional Family Medical History / Comment(s): Brother had a MO in his 50s. Medications and Allergies Home Medications Medication Instructions Recorded Confirmed Type Insulin Detemir (Levemir) [Levemir] 28 unit SQ HS 08/18/14 02/15/19 History Fluticasone Nasal [place] [Flonase 1 spray EA NOSTRIL BID PRN 05/12/16 02/15/19 History Nasal [place]] Pravastatin Sodium [Pravachol] 40 mg PO HS 12/06/17 02/15/19 History hydrALAZINE HCL [Apresoline] 100 mg PO TID #90 tab 06/07/18 02/15/19 Rx Nitroglycerin Sl Tabs [Nitrostat] 0.4 mg SUBLINGUAL Q5M PRN #25 tab 06/28/18 02/15/19 Rx Cholecalciferol [Vitamin D3] 3,000 unit PO PC-BRKFST 08/26/18 02/15/19 History Isosorbide Mononitrate ER [Imdur] 30 mg PO DAILY 01/16/19 02/15/19 History Pantoprazole [Protonix] 40 mg PO DAILY 01/16/19 02/15/19 History Apixaban [Eliquis] 2.5 mg PO BID #60 tab 02/04/19 02/15/19 Rx INSULIN ASPART (NovoLOG) [NovoLOG See Protocol SQ TID-W/MEALS 02/12/19 02/15/19 History (formulary)] Montelukast [Singulair] 10 mg PO HS 02/12/19 02/15/19 History Diltiazem Oral [Cardizem*] 90 mg PO TID #90 tab 02/14/19 02/15/19 Rx Metoprolol Tartrate [Lopressor] 75 mg PO TID #90 tab 02/14/19 02/15/19 Rx Temazepam [Restoril] 15 mg PO HS PRN #5 cap 02/14/19 02/15/19 Rx Clopidogrel [Plavix] 75 mg PO HS 02/15/19 02/15/19 History Allergies Allergy/AdvReac Type Severity Reaction Status Date / Time amoxicillin Allergy Anaphylaxis Verified 02/15/19 08:49 cephalexin monohydrate Allergy Rash/Hives Verified 02/15/19 08:49 [From Keflex] clindamycin Allergy Rash/Hives Verified 02/15/19 08:49 gluten Allergy Unknown Verified 02/15/19 08:49 Penicillins Allergy Rash/Hives Verified 02/15/19 08:49 Sulfa (Sulfonamide Allergy Anaphylaxis Verified 02/15/19 08:49 Antibiotics) sulfamethoxazole Allergy Anaphylaxis Verified 02/15/19 08:49 [From Bactrim] trimethoprim [From Bactrim] Allergy Anaphylaxis Verified 02/15/19 08:49 amlodipine AdvReac Swelling Verified 02/15/19 08:49 carvedilol AdvReac STOMACH Verified 02/15/19 08:49 CRAMPS Physical Exam Vitals: Vital Signs Temp Pulse Pulse Resp BP BP Pulse Ox 02/15/19 17:19 92 02/15/19 17:10 90 02/15/19 16:00 97.7 F 82 20 146/66 96 02/15/19 13:17 18 02/15/19 12:55 74 18 122/93 98 02/15/19 12:45 74 02/15/19 11:30 83 21 118/76 94 L 02/15/19 11:00 67 22 126/69 93 L 02/15/19 10:30 69 18 113/77 95 02/15/19 10:00 70 20 145/88 92 L 02/15/19 09:30 73 26 H 124/82 92 L 02/15/19 09:02 68 02/15/19 09:00 72 24 113/72 91 L 02/15/19 08:53 76 02/15/19 08:23 97.8 F 72 24 116/64 93 L Intake and Output 02/15/19 02/15/19 02/15/19 06:59 14:59 22:59 Other: Weight 92.533 kg General appearance: alert, in no apparent distress, calm and comfortable Head exam: Present: atraumatic, normocephalic, normal inspection Eye exam: Present: normal appearance, PERRL, EOMI. Absent: scleral icterus, conjunctival injection, periorbital swelling ENT exam: Present: normal exam, mucous membranes moist Neck exam: Present: normal inspection, full ROM. Absent: tenderness, meningismus, lymphadenopathy Respiratory exam: Present: wheezes. in the breath sounds are quite diminished in lung bases along with some bibasilar crackles. Breath sounds are more diminished in the right compared to left. Cardiovascular Exam: Present: irregular rate, normal rhythm, normal heart sounds. Absent: systolic murmur, diastolic murmur, rubs, gallop, clicks GI/Abdominal exam: Present: soft, normal bowel sounds. Absent: distended, tenderness, guarding, rebound, rigid Extremities exam: Present: pedal edema (3+ pitting edema) Neurological exam: Present: alert, oriented X3, CN II-XII intact Psychiatric exam: Present: normal affect, normal mood Results - Laboratory Findings CBC and BMP: 02/15/19 08:50 02/15/19 08:50 PT/INR, D-dimer PT 11.4 sec (9.0-12.0) 02/15/19 08:50 INR 1.1 (<1.2) 02/15/19 08:50 Abnormal lab findings: Abnormal Labs 02/15/19 02/15/19 02/15/19 08:50 08:50 09:27 RBC 3.69 L Hgb 11.1 L Hct 34.2 L Lymphocytes # 0.4 L Sodium 125 L Chloride 88 L BUN 47 H Creatinine 1.90 H Glucose 404 H POC Glucose (mg/dL) Calcium 7.9 L Total Protein 5.4 L Albumin 2.9 L Urine Protein 1+ H Urine Glucose (UA) 3+ H Hyaline Casts 3 H 02/15/19 02/15/19 02/15/19 12:54 13:19 16:29 RBC Hgb Hct Lymphocytes # Sodium Chloride BUN Creatinine Glucose POC Glucose (mg/dL) 158 H 157 H 297 H Calcium Total Protein Albumin Urine Protein Urine Glucose (UA) Hyaline Casts - Diagnostic Findings Chest x-ray: image reviewed Assessment and Plan Plan: assessment 1 acute on chronic shortness of breath, consistent with the patient's history of congestion heart failure. Also, the patient's chronic renal failure, likely nephrotic in nature and the patient has significant amount of fluid overload with increased lower extremity edema and development of bilateral pleural effusion right more than left. He would benefit from diuretics. CAT scan of the chest shows atelectatic changes in lung bases right more than left lung with bilateral pleural effusions 2 chronic kidney disease, stage IV, secondary to diabetic nephropathy, possibly nephrotic at this stage 3 diabetes mellitus type 2 with diabetic nephropathy and neuropathy 4 coronary artery disease 5 COPD currently inactive in stable 6 chronic atrial fibrillation 7 hyperlipidemia 8 coronary artery disease with previous coronary intervention and stenting 9 hypertensive heart disease with concentric left ventricular hypertrophy 10 hypochloremic hyponatremia secondary to above Plan agree with diuretics. Currently on Lasix 40 mg IV every 12 hours. Continue anticoagulation with Eliquis. Continue DuoNeb the right seems on the clock. Cardiac medications were kept unchanged. Anticipate improvement with diuresis him optimization of the volume status. . CAT scan of the chest was reviewed. No significant abnormalities other than
[2019-02-15 20:35] LABS: Glucose,Whole Blood 302 mg/dL (75-99)
[2019-02-15] MEDS: APIXABAN 2.5 MG TABLET PO SCH (20:50)
[2019-02-15] MEDS: CLOPIDOGREL 75 MG TAB PO SCH (20:50)
[2019-02-15] MEDS: METOPROLOL TARTRATE 25 MG TAB PO SCH (20:51)
[2019-02-15] MEDS: MONTELUKAST 10 MG TAB PO SCH (20:51)
[2019-02-15] MEDS: DILTIAZEM ORAL 30 MG TAB PO SCH (20:51)
[2019-02-15] MEDS: FUROSEMIDE 10 MG/ML 4 ML VIAL IV SCH (20:51)
[2019-02-15] MEDS: PRAVASTATIN SODIUM 40 MG TAB PO SCH (20:51)
[2019-02-15] MEDS: hydrALAZINE HCL 50 MG TAB PO SCH (20:51)
[2019-02-15] MEDS: INSULIN DETEMIR (LEVEMIR) 100 UNIT/ML SYR SQ SCH (20:54)
[2019-02-15 21:38] VITALS: RESP 18
[2019-02-16] MEDS: IPRATROPIUM-ALBUTEROL 3 ML NEB INHALATION SCH ×5 (01:09→21:08)
[2019-02-16] MEDS: SODIUM CHLORIDE 0.9% 1,000 ML IV SCH ×2 (05:42→14:46)
[2019-02-16 05:55] LABS: Glucose,Whole Blood 184 mg/dL (75-99)
[2019-02-16] MEDS: PANTOPRAZOLE 40 MG TABLET PO SCH (06:33)
[2019-02-16] MEDS: INSULIN ASPART (NovoLOG) 100 UNIT/ML VIAL SQ SCH ×4 (06:33→21:31)
[2019-02-16 06:56] LABS: Basophils % (A) 0 %; Eosinophils # (A) 0.1 k/uL (0-0.7); Eosinophils % (A) 1 %; HCT 34.9 % (39.0-53.0); HGB 11.4 gm/dL (13.0-17.5); Lymphocytes # (A) 0.8 k/uL (1.0-4.8); Lymphocytes % (A) 9 %; MCHC 32.6 g/dL (31.0-37.0); MCV 92.1 fL (80.0-100.0); Mean Platelet Volume 7.1; Monocytes # (A) 0.6 k/uL (0-1.0); Monocytes % (A) 7 %; Neutrophils % (A) 81 %; Platelet Count 302 k/uL (150-450); RBC 3.79 m/uL (4.30-5.90); RDW 14.6 % (11.5-15.5); WBC 8.6 k/uL (3.8-10.6)
[2019-02-16 07:22] LABS: Calcium 8.1 mg/dL (8.4-10.2); Potassium 3.8 mmol/L (3.5-5.1)
[2019-02-16] MEDS: APIXABAN 2.5 MG TABLET PO SCH ×2 (09:00→21:31)
[2019-02-16] MEDS: DILTIAZEM ORAL 30 MG TAB PO SCH ×3 (09:00→21:30)
[2019-02-16] MEDS: CHOLECALCIFEROL 1,000 UNIT TAB PO SCH (09:00)
[2019-02-16] MEDS: ISOSORBIDE MONONITRATE ER 30 MG TAB.ER.24H PO SCH (09:01)
[2019-02-16] MEDS: FUROSEMIDE 10 MG/ML 4 ML VIAL IV SCH ×2 (09:01→21:31)
[2019-02-16] MEDS: hydrALAZINE HCL 50 MG TAB PO SCH ×3 (09:01→21:30)
[2019-02-16] MEDS: METOPROLOL TARTRATE 25 MG TAB PO SCH ×3 (09:01→21:30)
[2019-02-16 11:26] LABS: Glucose,Whole Blood 211 mg/dL (75-99)
--- NOTE | 2019-02-16 12:00 | P.NPCON ---
History of Present Illness - Reason for Consult Consult date: 02/16/19 acute renal failure, hyponatremia - Chief Complaint Shortness of breath - History of Present Illness This is a 63-year-old male seen in consultation because of chronic kidney disease, acute kidney injury and hyponatremia. He came in because of shortness of breath. He was released from the hospital yesterday but came right back as she felt that he had some pressure and shortness of breath. This morning he is feeling better after diuresis. No history of fever chills nausea vomiting diarrhea. Appetite is fair but she doesn't like the food here. H&H is known with chronic kidney disease, secondary diabetic nephropathy with creatinine being up since 2016 when it was 1.39. More recently it has Al around 1.8-1.9 over the last 2 months. On 06/28/2018 was 1.41. He has 3.1 g proteinuria on 05/11/2018. He is a smoker He is known with diabetes since approximately age of 28 type II, ASHD with stent in 2018, COPD, atrial fibrillation. He is under the care of a composite engineer in [facility] Past Medical History Past Medical History: Atrial Fibrillation, Coronary Artery Disease (CAD), Chest Pain / Angina, Heart Failure, COPD, Diabetes Mellitus, GERD/Reflux, Hyperlipidemia, Hypertension, Liver Disease, Myocardial Infarction ([place]), Renal Disease, Skin Disorder Additional Past Medical History / Comment(s): IDDM type II, neuropathy bilateral feet, nephropathy-ckd stage III, chronic CHF, liver cirrhosis, BPH, DJD, mary iated discs low back, chronic low back pain, DJD, varicose veins bilaterally, anemia, past asbestos exposure, celiac disease, BPH. Last Myocardial Infarction Date:: 06/2018 History of Any Multi-Drug Resistant Organisms: None Reported Past Surgical History: Cholecystectomy, Heart Catheterization With Stent, Tonsillectomy Additional Past Surgical History / Comment(s): PCI with STENTS, bilateral catar acts removed with lens implants, colonoscopy. Catarac Removal Past Anesthesia/Blood Transfusion Reactions: No Reported Reaction Date of Last Stent Placement:: 2017 Type of Cardiac Device: Permanent Pacemaker Device Placement Date:: 02/02/19 Past Psychological History: No Psychological Hx Reported Smoking Status: Current every day smoker Past Alcohol Use History: None Reported Past Drug Use History: None Reported - Past Family History Mother Family Medical History: Diabetes Mellitus Father Family Medical History: Myocardial Infarction ([place]) Additional Family Medical History / Comment(s): Father had a CO in his 70s. Brother(s) Family Medical History: Myocardial Infarction ([place]) Additional Family Medical History / Comment(s): Brother had a CO in his 50s. Medications and Allergies Home Medications Medication Instructions Recorded Confirmed Type Insulin Detemir (Levemir) [Levemir] 28 unit SQ HS 08/18/14 02/15/19 History Fluticasone Nasal [place] [Flonase 1 spray EA NOSTRIL BID PRN 05/12/16 02/15/19 History Nasal [place]] Pravastatin Sodium [Pravachol] 40 mg PO HS 12/06/17 02/15/19 History hydrALAZINE HCL [Apresoline] 100 mg PO TID #90 tab 06/07/18 02/15/19 Rx Nitroglycerin Sl Tabs [Nitrostat] 0.4 mg SUBLINGUAL Q5M PRN #25 tab 06/28/18 02/15/19 Rx Cholecalciferol [Vitamin D3] 3,000 unit PO PC-BRKFST 08/26/18 02/15/19 History Isosorbide Mononitrate ER [Imdur] 30 mg PO DAILY 01/16/19 02/15/19 History Pantoprazole [Protonix] 40 mg PO DAILY 01/16/19 02/15/19 History Apixaban [Eliquis] 2.5 mg PO BID #60 tab 02/04/19 02/15/19 Rx INSULIN ASPART (NovoLOG) [NovoLOG See Protocol SQ TID-W/MEALS 02/12/19 02/15/19 History (formulary)] Montelukast [Singulair] 10 mg PO HS 02/12/19 02/15/19 History Diltiazem Oral [Cardizem*] 90 mg PO TID #90 tab 02/14/19 02/15/19 Rx Metoprolol Tartrate [Lopressor] 75 mg PO TID #90 tab 02/14/19 02/15/19 Rx Temazepam [Restoril] 15 mg PO HS PRN #5 cap 02/14/19 02/15/19 Rx Clopidogrel [Plavix] 75 mg PO HS 02/15/19 02/15/19 History Allergies Allergy/AdvReac Type Severity Reaction Status Date / Time amoxicillin Allergy Anaphylaxis Verified 02/15/19 08:49 cephalexin monohydrate Allergy Rash/Hives Verified 02/15/19 08:49 [From Keflex] clindamycin Allergy Rash/Hives Verified 02/15/19 08:49 gluten Allergy Unknown Verified 02/15/19 08:49 Penicillins Allergy Rash/Hives Verified 02/15/19 08:49 Sulfa (Sulfonamide Allergy Anaphylaxis Verified 02/15/19 08:49 Antibiotics) sulfamethoxazole Allergy Anaphylaxis Verified 02/15/19 08:49 [From Bactrim] trimethoprim [From Bactrim] Allergy Anaphylaxis Verified 02/15/19 08:49 amlodipine AdvReac Swelling Verified 02/15/19 08:49 carvedilol AdvReac STOMACH Verified 02/15/19 08:49 CRAMPS Physical Exam Vitals: Vital Signs Temp Pulse Pulse Resp BP BP Pulse Ox 02/16/19 11:33 18 02/16/19 09:38 86 02/16/19 09:27 82 98 02/16/19 08:00 97.7 F 76 18 131/60 97 02/16/19 03:50 61 18 93 L 02/16/19 03:49 97.2 F L 61 18 150/70 87 L 02/16/19 01:21 70 02/16/19 01:10 71 96 02/16/19 00:00 66 18 02/15/19 23:03 97.7 F 66 18 133/69 96 02/15/19 20:00 98.0 F 89 18 132/70 95 02/15/19 17:19 92 02/15/19 17:10 90 02/15/19 16:00 97.7 F 82 20 146/66 96 02/15/19 13:17 18 02/15/19 12:55 74 18 122/93 98 02/15/19 12:45 74 Intake and Output 02/15/19 02/16/19 02/16/19 22:59 06:59 14:59 Intake Total 222 Output Total 225 1875 300 Balance - Intake: Oral 222 Output: Urine 225 1874 300 Other: Voiding Method Urinal Urinal Urinal # Voids 1 1 Weight 89.5 kg On examination he is awake alert oriented. Comfortable. HEENT exam no JVP neck supple no facial asymmetry Lungs are significant for bilateral coarse crackle at bases with some diminished air entry at the right base. Heart sounds are unremarkable is in atrial fibrillation no murmur rub gallop Abdomen soft nontender no organomegaly ascites masses Extremity exam was trace edema Neurologically awake alert oriented Results - Lab Results Most recent lab results Calcium 8.1 mg/dL (8.4-10.2) L 02/16/19 05:50 02/16/19 05:50 02/16/19 05:50 Assessment and Plan Assessment: Impression 1. Acute kidney injury secondary to prerenal from congestive heart failure. Adequate urinary output on current Lasix dose of 40 every 12 2. Chronic kidney disease secondary diabetic nephropathy with 3.1 g proteinuria on 05/11/2018. Baseline creatinine about 1.4 in June 2018 and more recently his had been in the 1.8 range over the last 2 months. 3. Bilateral effusions right greater than left. 4. COPD with active smoker. 5. Atrial fibrillation controlled ventricular response. 6. ASHD status post stent in 2018. 7. Hemoglobin 11.4 , was more recently in the 14 range. Watch for any bleeding. 8. Mild degree of hypocalcemia likely secondary to low albumin. 9. Bicarb is 31 secondary to metabolic alkalosis from diuresis Recommendation 1. Maintain current diuretic regimen. 2. check orthostatic changes. 3. Monitor renal function. 4. Monitor acid base 4 metabolic alkalosis Thank you for this consultation and will follow with
[2019-02-16 13:04] VITALS: BMI 29.1
--- NOTE | 2019-02-16 14:11 | P.HPIM ---
History of Present Illness H&P Date: 02/15/19 Chief Complaint: Leg swelling/shortness of breath 63-year-old male with a past medical history significant for Atrial fibrillation, CAD, heart failure, COPD, type II IDDM, hyperlipidemia, hypertension, mild cardial infarction with last stent being placed April 2018presents to the emergency department for a chief complaint of shortness of breath. Patient states this has been ongoing for over one week that recently worsened after he was discharged from the hospital yesterday. Patient states that the shortness of breath is worse when he lies down it causes a pressure on his chest. He states that last night he started to notice swelling in his legs. Patient states he was started on amlodipine on the hospital which she has had problems with previously. According to documentation patient was admitted for atrial fibrillation with RVR. He did have a recent pacemaker implanted for tachybradycardia syndrome about a week ago. Patient had an echocardiogram performed earlier this month which revealed a normal ejection fraction of 60-65. Patient states he decided to return to the emergency department after being discharged last night because his symptoms were worsening and his shortness of breath was increasing. Patient has no other complaints at this time including abdominal pain, nausea or vomiting, headache, or visual changes. Review of Systems Constitutional: Reports fatigue, Reports poor appetite, Reports weakness, Reports weight gain Eyes: denies as per HPI, denies blurred vision, denies bulging eye, denies decreased vision, denies diplopia, denies discharge, denies dry eye, denies irr itation, denies itching, denies pain, denies photophobia, denies loss of peripheral vision, denies loss of vision, denies tunnel vision/blind spots Ears: deny: decreased hearing, ear discharge, earache, tinnitus Ears, nose, mouth and throat: Denies headache, Denies sore throat Cardiovascular: Reports decreased exercise tolerance, Reports dyspnea on exertion, Reports edema, Reports irregular heart beat, Reports leg edema, Reports paroxysmal nocturnal dyspnea, Reports shortness of breath Respiratory: Reports dyspnea, Reports home oxygen Gastrointestinal: Reports as per HPI, Reports loss of appetite Genitourinary: Reports as per HPI Musculoskeletal: Reports as per HPI Musculoskeletal: bilateral: ankle swelling, absent: ankle pain, ankle stiffness, as per HPI, elbow pain, elbow stiffness, elbow swelling, foot pain, foot stiffness, foot swelling, hand pain, hand stiffness, hand swelling, hip pain, hip stiffness, hip swelling, knee pain, knee stiffness, knee swelling, shoulder pain, shoulder stiffness, shoulder swelling, wrist pain, wrist stiffness, wrist swelling Integumentary: Denies pruritus, Denies rash Neurological: Reports weakness Psychiatric: Reports as per HPI Endocrine: Reports as per HPI Past Medical History Past Medical History: Atrial Fibrillation, Coronary Artery Disease (CAD), Chest Pain / Angina, Heart Failure, COPD, Diabetes Mellitus, GERD/Reflux, Hyperlipidemia, Hypertension, Liver Disease, Myocardial Infarction (MT), Prost ate Disorder, Renal Disease, Skin Disorder Additional Past Medical History / Comment(s): Pt recently admitted for tachbrady syndrome and had pacer placed and admitted again 02/13/19 with afib RVR/ R small pleural effusion. Other hx: IDDM type II, neuropathy bilateral feet, nephropathy-ckd stage III, chronic CHF, liver cirrhosis, BPH, DJD, herniated discs low back, chronic low back pain, DJD, varicose veins bilaterally, anemia, past asbestos exposure, celiac disease. Last Myocardial Infarction Date:: 06/2018 History of Any Multi-Drug Resistant Organisms: None Reported Past Surgical History: Cholecystectomy, Heart Catheterization With Stent, Pacemaker, Tonsillectomy Additional Past Surgical History / Comment(s): PCI with STENTS, bilateral cataracts removed with lens implants, colonoscopy. Catarac Removal Past Anesthesia/Blood Transfusion Reactions: No Reported Reaction Date of Last Stent Placement:: 2017 Type of Cardiac Device: Permanent Pacemaker Device Placement Date:: 02/02/19 Smoking Status: Current every day smoker - Past Family History Mother Family Medical History: Diabetes Mellitus Father Family Medical History: Myocardial Infarction (MT) Additional Family Medical History / Comment(s): Father had a MT in his 70s. Brother(s) Family Medical History: Myocardial Infarction (MT) Additional Family Medical History / Comment(s): Brother had a MT in his 50s. Medications and Allergies Home Medications Medication Instructions Recorded Confirmed Type Insulin Detemir (Levemir) [Levemir] 28 unit SQ HS 08/18/14 02/15/19 History Fluticasone Nasal [place] [Flonase 1 spray EA NOSTRIL BID PRN 05/12/16 02/15/19 History Nasal [place]] Pravastatin Sodium [Pravachol] 40 mg PO HS 12/06/17 02/15/19 History hydrALAZINE HCL [Apresoline] 100 mg PO TID #90 tab 06/07/18 02/15/19 Rx Nitroglycerin Sl Tabs [Nitrostat] 0.4 mg SUBLINGUAL Q5M PRN #25 tab 06/28/18 02/15/19 Rx Cholecalciferol [Vitamin D3] 3,000 unit PO PC-BRKFST 08/26/18 02/15/19 History Isosorbide Mononitrate ER [Imdur] 30 mg PO DAILY 01/16/19 02/15/19 History Pantoprazole [Protonix] 40 mg PO DAILY 01/16/19 02/15/19 History Apixaban [Eliquis] 2.5 mg PO BID #60 tab 02/04/19 02/15/19 Rx INSULIN ASPART (NovoLOG) [NovoLOG See Protocol SQ TID-W/MEALS 02/12/19 02/15/19 History (formulary)] Montelukast [Singulair] 10 mg PO HS 02/12/19 02/15/19 History Diltiazem Oral [Cardizem*] 90 mg PO TID #90 tab 02/14/19 02/15/19 Rx Metoprolol Tartrate [Lopressor] 75 mg PO TID #90 tab 02/14/19 02/15/19 Rx Temazepam [Restoril] 15 mg PO HS PRN #5 cap 02/14/19 02/15/19 Rx Clopidogrel [Plavix] 75 mg PO HS 02/15/19 02/15/19 History Allergies Allergy/AdvReac Type Severity Reaction Status Date / Time amoxicillin Allergy Anaphylaxis Verified 02/15/19 08:49 cephalexin monohydrate Allergy Rash/Hives Verified 02/15/19 08:49 [From Keflex] clindamycin Allergy Rash/Hives Verified 02/15/19 08:49 gluten Allergy Unknown Verified 02/15/19 08:49 Penicillins Allergy Rash/Hives Verified 02/15/19 08:49 Sulfa (Sulfonamide Allergy Anaphylaxis Verified 02/15/19 08:49 Antibiotics) sulfamethoxazole Allergy Anaphylaxis Verified 02/15/19 08:49 [From Bactrim] trimethoprim [From Bactrim] Allergy Anaphylaxis Verified 02/15/19 08:49 amlodipine AdvReac Swelling Verified 02/15/19 08:49 carvedilol AdvReac STOMACH Verified 02/15/19 08:49 CRAMPS Physical Exam Vitals: Vital Signs Temp Pulse Resp BP Pulse Ox 02/15/19 13:17 18 02/15/19 12:55 74 18 122/93 98 02/15/19 12:45 74 02/15/19 11:30 83 21 118/76 94 L 02/15/19 11:00 67 22 126/69 93 L 02/15/19 10:30 69 18 113/77 95 02/15/19 10:00 70 20 145/88 92 L 02/15/19 09:30 73 26 H 124/82 92 L 02/15/19 09:02 68 02/15/19 09:00 72 24 113/72 91 L 02/15/19 08:53 76 02/15/19 08:23 97.8 F 72 24 116/64 93 L Intake and Output 02/14/19 02/15/19 02/15/19 22:59 06:59 14:59 Other: Weight 92.533 kg Limitations: no limitations General appearance: alert, in no apparent distress Head exam: Present: atraumatic, normocephalic, normal inspection Eye exam: Present: normal appearance, PERRL, EOMI. Absent: scleral icterus, conjunctival injection, periorbital swelling ENT exam: Present: normal exam, mucous membranes moist Neck exam: Present: normal inspection, full ROM. Absent: tenderness, men ingismus, lymphadenopathy Respiratory exam: Present: wheezes. Absent: respiratory distress, rales, rhonchi, stridor, accessory muscle use Cardiovascular Exam: Present: regular rate, normal rhythm, normal heart sounds. Absent: systolic murmur, diastolic murmur, rubs, gallop, clicks GI/Abdominal exam: Present: soft, normal bowel sounds. Absent: distended, tenderness, guarding, rebound, rigid Extremities exam: Present: pedal edema (3+ pitting edema) Neurological exam: Present: alert, oriented X3, CN II-XII intact Psychiatric exam: Present: normal affect, normal mood Results CBC & Chem 7: 02/16/19 05:50 02/16/19 05:50 Labs: Abnormal Lab Results - Last 24 Hours (Table) 02/15/19 02/15/19 02/15/19 Range/Units 08:50 08:50 09:27 RBC 3.69 L (4.30-5.90) m/uL Hgb 11.1 L (13.0-17.5) gm/dL Hct 34.2 L (39.0-53.0) % Lymphocytes # 0.4 L (1.0-4.8) k/uL Sodium 125 L (137-145) mmol/L Chloride 88 L (98-107) mmol/L BUN 47 H (9-20) mg/dL Creatinine 1.90 H (0.66-1.25) mg/dL Glucose 404 H (74-99) mg/dL POC Glucose (mg/dL) (75-99) mg/dL Calcium 7.9 L (8.4-10.2) mg/dL Total Protein 5.4 L (6.3-8.2) g/dL Albumin 2.9 L (3.5-5.0) g/dL Urine Protein 1+ H (Negative) Urine Glucose (UA) 3+ H (Negative) Hyaline Casts 3 H (0-2) /lpf 02/15/19 02/15/19 Range/Units 12:54 13:19 RBC (4.30-5.90) m/uL Hgb (13.0-17.5) gm/dL Hct (39.0-53.0) % Lymphocytes # (1.0-4.8) k/uL Sodium (137-145) mmol/L Chloride (98-107) mmol/L BUN (9-20) mg/dL Creatinine (0.66-1.25) mg/dL Glucose (74-99) mg/dL POC Glucose (mg/dL) 158 H 157 H (75-99) mg/dL Calcium (8.4-10.2) mg/dL Total Protein (6.3-8.2) g/dL Albumin (3.5-5.0) g/dL Urine Protein (Negative) Urine Glucose (UA) (Negative) Hyaline Casts (0-2) /lpf Thrombosis Risk Factor Assmnt - Choose All That Apply Any of the Below Risk Factors Present?: Yes Each Factor Represents 1 point: Abnormal pulmonary function (COPD), Acute MT, Obesity (BMI >25), Swollen legs (current), Varicose veins Other Risk Factors: Yes Each Risk Factor Represents 2 Points: Age 61-74 years Other congenital or acquired thrombophilia - If yes, enter type in comment: No Thrombosis Risk Factor Assessment Total Risk Factor Score: 7 Thrombosis Risk Factor Assessment Level: High Risk Assessment and Plan Assessment: 1. Acute on chronic dyspnea, multifactorial - Acute exacerbation of CHF - Fluid overload secondary to chronic kidney disease likely nephrotic in nature - Bilateral pleural effusion; right greater than left CAT scan of the chest shows atelectatic changes in lung bases right more than left lung with bilateral pleural effusions Patient is started on IV diuretic therapy in the form of Lasix 40 mg IV every 12 hours We plan to monitor strict IMMANUEL's, daily weights, renal function and electrolytes 2. Chronic kidney disease, stage IV, secondary to diabetic nephropathy, possibly nephrotic at this stage 3. Diabetes mellitus type 2; with diabetic nephropathy and neuropathy - Continue with home dose of Levemir 28 units subcu daily at bedtime - Accu-Cheks every before meals and at bedtime with insulin sliding scale 4. Coronary artery disease with history of PCI and stenting - Continue with aspirin, Plavix, beta blockers and nitrates 5. COPD; not in exacerbation 6. Chronic atrial fibrillation; rate controlled with metoprolol and Cardizem; continue anticoagulation with Eliquis 2.5 mg twice a day 7. Hyperlipidemia; continue with home dose of pravastatin 40 mg daily at bedtime 8. Hypertensive heart disease with concentric left ventricular hypertrophy 9. Hyponatremia; multifactorial - Diuretic therapy/ fluid overload due to chronic kidney disease - We will keep patient on fluid restriction - Consult nephrology; continue to monitor electrolytes and renal function 10. DVT prophylaxis; systemic anticoagulation with Apixaban CODE STATUS; full code Time with Patient: Greater than 30
--- NOTE | 2019-02-16 14:36 | P.PN ---
Subjective Progress Note Date: 02/16/19 Principal diagnosis: Acute exacerbation of chronic diastolic congestive heart failure His is a 63-year-old male patient who is coming into the hospital after being recently discharged for worsening shortness of breath, exertional dyspnea, orthopnea, lower extremity edema. The patient reports that he has minimal exercise capacity and he gets short of breath upon performing activities of the today life. He feels his lungs are checked especially when he lays down. No cough. No sputum production. No hemoptysis. No pleurisy. No chest pain. He is known to have extensive cardiac history. He has known coronary artery disease and his last cardiac catheterization was in June 2018 and the patient has had previous coronary stent insertion in the last catheterization was for a non-STEMI that occurred back in May 2018 and at that Time the patient was found to have critical stenosis of the first diagonal branch and he underwent an depressed and stenting. The patient's echocardiogram from January 2019 shows preserved LV function with an ejection fraction of 6065%. The patient has moderate concentric left ventricular hypertrophy. There is mild aortic valve sclerosis, mild TR, mild pulmonary hypertension with an estimated PA pressure of 42.6. The patient is diabetic. The patient suffers from chronic diabetic kidney disease and the patient has stage III kidney failure probably within the nephrotic range as the patient has significant amount of proteinuria on previous 24-hour urine collection. He has chronic atrial fibrillation. He has hypertension and hyperlipidemia and peripheral neuropathy. He has BPH. He has questionable history of liver cirrhosis in addition. He states that he is very compliant his fluid intake furthermore, the patient had a recent pacemaker insertion and this was inserted for tachybradycardia syndrome. Is on long-term and coagulation with Eliquis. During this current admission, chest x-ray was done and showed better pleural effusion right more than left and for that reason a pulmonary consultation was requested. Patient's BNP level is 4004 100. First set of troponin is negative. Serum albumin is at 2.9. Correlation profile is within normal. Creatinine shows a level of 1.9 with a GFR of 37 consistent with stage III kidney disease. The patient is currently on IV Lasix. CAT scan of the chest was ordered without contrast and that showed cardiomegaly and bilateral pleural effusion right more than left along with compressive atelectatic changes in the right lung base. The patient is seen today on 02/16/2019 in follow-up on the selective care unit. He is currently sitting up in a chair at the bedside. He is awake and alert in no acute distress. he is maintaining good O2 saturations in the upper 90s on 2 L/m per nasal cannula.white count 8.6. Hemoglobin 11.4. Bicarb 31. Creatinine 1.83. he remains on Lasix 40 mg IV every 12 hours.he is currently in a negative balance. He is breathing quite a bit easier today as compared to yesterday. Objective - Vital Signs Vital signs: Vital Signs Temp 97.7 F 02/16/19 08:00 Pulse 84 02/16/19 13:12 Resp 18 02/16/19 11:33 BP 131/60 02/16/19 08:00 Pulse Ox 98 02/16/19 09:27 Intake & Output 02/15/19 02/16/19 02/16/19 18:59 06:59 18:59 Intake Total 222 Output Total 2100 300 Balance 222 -2100 -300 Weight 92.533 kg 89.5 kg 89.5 kg Intake: Oral 222 Output: Urine 2100 300 Other: Voiding Method Urinal Urinal # Voids 1 1 - Exam General appearance: alert, in no apparent distress, calm and comfortable. on 2 L. Head exam: Present: atraumatic, normocephalic, normal inspection Eye exam: Present: normal appearance, PERRL, EOMI. Absent: scleral icterus, conjunctival injection, periorbital swelling ENT exam: Present: normal exam, mucous membranes moist Neck exam: Present: normal inspection, full ROM. Absent: tenderness, meningismus, lymphadenopathy Respiratory exam: Present: wheezes. in the breath sounds are quite diminished in lung bases along with some bibasilar crackles. Breath sounds are more diminished in the right compared to left. Cardiovascular Exam: Present: irregular rate, normal rhythm, normal heart sounds. Absent: systolic murmur, diastolic murmur, rubs, gallop, clicks GI/Abdominal exam: Present: soft, normal bowel sounds. Absent: distended, tenderness, guarding, rebound, rigid Extremities exam: Present: pedal edema (3+ pitting edema) Neurological exam: Present: alert, oriented X3, CN II-XII intact Psychiatric exam: Present: normal affect, normal mood - Labs CBC & Chem 7: 02/16/19 05:50 02/16/19 05:50 Labs: Abnormal Lab Results - Last 24 Hours (Table) 02/15/19 02/15/19 02/16/19 Range/Units 16:29 20:35 05:50 RBC 3.79 L (4.30-5.90) m/uL Hgb 11.4 L (13.0-17.5) gm/dL Hct 34.9 L (39.0-53.0) % Lymphocytes # 0.8 L (1.0-4.8) k/uL Sodium (137-145) mmol/L Chloride (98-107) mmol/L Carbon Dioxide (22-30) mmol/L BUN (9-20) mg/dL Creatinine (0.66-1.25) mg/dL Glucose (74-99) mg/dL POC Glucose (mg/dL) 297 H 302 H (75-99) mg/dL Calcium (8.4-10.2) mg/dL 02/16/19 02/16/19 02/16/19 Range/Units 05:50 05:53 11:22 RBC (4.30-5.90) m/uL Hgb (13.0-17.5) gm/dL Hct (39.0-53.0) % Lymphocytes # (1.0-4.8) k/uL Sodium 131 L (137-145) mmol/L Chloride 93 L (98-107) mmol/L Carbon Dioxide 31 H (22-30) mmol/L BUN 41 H (9-20) mg/dL Creatinine 1.83 H (0.66-1.25) mg/dL Glucose 164 H (74-99) mg/dL POC Glucose (mg/dL) 184 H 211 H (75-99) mg/dL Calcium 8.1 L (8.4-10.2) mg/dL Assessment and Plan Assessment: Assessment 1 acute on chronic shortness of breath, consistent with the patient's history of chronic diastolic congestive heart failure. Also, the patient's chronic renal failure, likely nephrotic in nature and the patient has significant amount of fluid overload with increased lower extremity edema and development of bilateral pleural effusion right more than left. He is benefiting from diuretics. early in a negative balance. CAT scan of the chest shows atelectatic changes in lung bases right more than left lung with bilateral pleural effusions 2 chronic kidney disease, stage IV, secondary to diabetic nephropathy, possibly nephrotic at this stage 3 diabetes mellitus type 2 with diabetic nephropathy and neuropathy 4 coronary artery disease 5 COPD currently inactive in stable 6 chronic atrial fibrillation 7 hyperlipidemia 8 coronary artery disease with previous coronary intervention and stenting 9 hypertensive heart disease with concentric left ventricular hypertrophy 10 hypochloremic hyponatremia secondary to above Plan The patient was seen and evaluated by Dr. Frias. He is improved today as compared to yesterday. We'll continue with the current treatment plan. He remains on IV diuretics. Remains on bronchodilators. Anticoagulated with Eliquis. Will increase his activity as tolerated. We'll continue to follow make further recommendations based on his clinical status. I, the cosigning physician, performed a history & physical examination of the patient. Lungs sounds with crackles in the posterior bases. Diminished. Maintaining good O2 saturations in the 90s on 2 L/m nasal cannula. I discussed the assessment and plan of care with my nurse practitioner, Chelsea Shankar. I attest to the above note as dictated by her.
[2019-02-16 16:47] LABS: Glucose,Whole Blood 287 mg/dL (75-99)
[2019-02-16] MEDS ORDERED: BETAMETHASONE DIPROPIONATE 0.05% OINTMENT 45 GM TUBE TOPICAL PRN (20:01)
[2019-02-16] MEDS ORDERED: LORATADINE 10 MG TAB PO PRN (20:06)
[2019-02-16 21:02] LABS: Glucose,Whole Blood 268 mg/dL (75-99)
[2019-02-16] MEDS: PRAVASTATIN SODIUM 40 MG TAB PO SCH (21:29)
[2019-02-16] MEDS: CLOPIDOGREL 75 MG TAB PO SCH (21:30)
[2019-02-16] MEDS: MONTELUKAST 10 MG TAB PO SCH (21:30)
[2019-02-16] MEDS: INSULIN DETEMIR (LEVEMIR) 100 UNIT/ML SYR SQ SCH (21:31)
[2019-02-17] MEDS: TEMAZEPAM 15 MG CAP PO PRN ×2 (01:15→21:04)
[2019-02-17] MEDS: SODIUM CHLORIDE 0.9% 1,000 ML IV SCH ×2 (01:23→12:23)
[2019-02-17] MEDS: IPRATROPIUM-ALBUTEROL 3 ML NEB INHALATION SCH ×4 (01:41→20:43)
[2019-02-17 06:32] LABS: Glucose,Whole Blood 140 mg/dL (75-99)
[2019-02-17 06:57] LABS: Basophils % (A) 0 %; Eosinophils # (A) 0.2 k/uL (0-0.7); Eosinophils % (A) 2 %; HCT 35.6 % (39.0-53.0); HGB 11.3 gm/dL (13.0-17.5); Lymphocytes # (A) 0.8 k/uL (1.0-4.8); Lymphocytes % (A) 10 %; MCH 29.3 pg (25.0-35.0); MCHC 31.7 g/dL (31.0-37.0); MCV 92.5 fL (80.0-100.0); Mean Platelet Volume 7.1; Monocytes # (A) 0.6 k/uL (0-1.0); Monocytes % (A) 8 %; Neutrophils % (A) 78 %; Platelet Count 331 k/uL (150-450); RBC 3.85 m/uL (4.30-5.90); RDW 14.5 % (11.5-15.5); WBC 7.7 k/uL (3.8-10.6)
[2019-02-17] MEDS: INSULIN ASPART (NovoLOG) 100 UNIT/ML VIAL SQ SCH ×4 (06:57→21:03)
[2019-02-17] MEDS: PANTOPRAZOLE 40 MG TABLET PO SCH (06:57)
[2019-02-17 07:22] LABS: Calcium 8.6 mg/dL (8.4-10.2); Potassium 3.7 mmol/L (3.5-5.1)
[2019-02-17] MEDS: APIXABAN 2.5 MG TABLET PO SCH ×2 (09:36→21:02)
[2019-02-17] MEDS: CHOLECALCIFEROL 1,000 UNIT TAB PO SCH (09:36)
[2019-02-17] MEDS: METOPROLOL TARTRATE 25 MG TAB PO SCH ×3 (09:37→21:02)
[2019-02-17] MEDS: DILTIAZEM ORAL 30 MG TAB PO SCH ×3 (09:37→21:03)
[2019-02-17] MEDS: ISOSORBIDE MONONITRATE ER 30 MG TAB.ER.24H PO SCH (09:37)
[2019-02-17] MEDS: hydrALAZINE HCL 50 MG TAB PO SCH ×3 (09:37→21:02)
[2019-02-17] MEDS: FUROSEMIDE 10 MG/ML 4 ML VIAL IV SCH ×2 (09:38→21:04)
[2019-02-17 11:43] LABS: Glucose,Whole Blood 210 mg/dL (75-99)
--- NOTE | 2019-02-17 12:19 | P.PN ---
Subjective Progress Note Date: 02/16/19 Principal diagnosis: Dyspnea Acute exacerbation CHF Acute renal injury This is a 63-year-old male came in because of shortness of breath. He was released from the hospital yesterday but came right back as she felt that he had some pressure and shortness of breath. This morning he is feeling better after diuresis. 02/16/2019 Patient is seen and evaluated in the room at bedside for follow-up; patient does report some improvement in shortness of breath but continues to complain of swelling both lower extremities; she denies any chest pain no redness or pain lower extremities Vital signs remained stable in form of temperature of 97.7, pulse 82, res piration 18 and blood pressure 131/60; SpO2 of 98% on 2 L Laboratory review shows CBC which is unremarkable; sodium is improved to 131; slight improvement in renal function with B UN/creatinine of 41/1.83; blood sugars ranging between 164-211 Patient has been seen and evaluated by nephrology and is recommended to continue with IV Lasix 40 mg twice a day along with close monitoring of renal function, electrolytes and daily weights; check for orthostatic hypotension and monitor for metabolic alkalosis Objective - Vital Signs Vital signs: Vital Signs Temp 97.7 F 02/16/19 08:00 Pulse 84 02/16/19 13:12 Resp 18 02/16/19 11:33 BP 131/60 02/16/19 08:00 Pulse Ox 98 02/16/19 09:27 Intake & Output 02/15/19 02/16/19 02/16/19 18:59 06:59 18:59 Intake Total 222 Output Total 2100 300 Balance 222 -2100 -300 Weight 92.533 kg 89.5 kg 89.5 kg Intake: Oral 222 Output: Urine 2100 300 Other: Voiding Method Urinal Urinal # Voids 1 1 - Exam General appearance: alert, in no apparent distress, calm and comfortable Head exam: Present: atraumatic, normocephalic, normal inspection Eye exam: Present: normal appearance, PERRL, EOMI. Absent: scleral icterus, conjunctival injection, periorbital swelling ENT exam: Present: normal exam, mucous membranes moist Neck exam: Present: normal inspection, full ROM. Absent: tenderness, meningismus, lymphadenopathy Respiratory exam: Present: wheezes. in the breath sounds are quite diminished in lung bases along with some bibasilar crackles. Breath sounds are more diminished in the right compared to left. Cardiovascular Exam: Present: irregular rate, normal rhythm, normal heart sounds. Absent: systolic murmur, diastolic murmur, rubs, gallop, clicks GI/Abdominal exam: Present: soft, normal bowel sounds. Absent: distended, tenderness, guarding, rebound, rigid Extremities exam: Present: pedal edema (3+ pitting edema) - Labs CBC & Chem 7: 02/16/19 05:50 02/16/19 05:50 Labs: Abnormal Lab Results - Last 24 Hours (Table) 02/15/19 02/15/19 02/16/19 Range/Units 16:29 20:35 05:50 RBC 3.79 L (4.30-5.90) m/uL Hgb 11.4 L (13.0-17.5) gm/dL Hct 34.9 L (39.0-53.0) % Lymphocytes # 0.8 L (1.0-4.8) k/uL Sodium (137-145) mmol/L Chloride (98-107) mmol/L Carbon Dioxide (22-30) mmol/L BUN (9-20) mg/dL Creatinine (0.66-1.25) mg/dL Glucose (74-99) mg/dL POC Glucose (mg/dL) 297 H 302 H (75-99) mg/dL Calcium (8.4-10.2) mg/dL 02/16/19 02/16/19 02/16/19 Range/Units 05:50 05:53 11:22 RBC (4.30-5.90) m/uL Hgb (13.0-17.5) gm/dL Hct (39.0-53.0) % Lymphocytes # (1.0-4.8) k/uL Sodium 131 L (137-145) mmol/L Chloride 93 L (98-107) mmol/L Carbon Dioxide 31 H (22-30) mmol/L BUN 41 H (9-20) mg/dL Creatinine 1.83 H (0.66-1.25) mg/dL Glucose 164 H (74-99) mg/dL POC Glucose (mg/dL) 184 H 211 H (75-99) mg/dL Calcium 8.1 L (8.4-10.2) mg/dL Assessment and Plan Assessment: 1. Acute on chronic dyspnea, multifactorial - Acute exacerbation of CHF - Fluid overload secondary to chronic kidney disease likely nephrotic in nature - Bilateral pleural effusion; right greater than left CAT scan of the chest shows atelectatic changes in lung bases right more than le ft lung with bilateral pleural effusions Patient is started on IV diuretic therapy in the form of Lasix 40 mg IV every 12 hours We plan to monitor strict IMMANUEL's, daily weights, renal function and electrolytes 2. Chronic kidney disease, stage IV, secondary to diabetic nephropathy, possibly nephrotic at this stage 3. Diabetes mellitus type 2; with diabetic nephropathy and neuropathy - Continue with home dose of Levemir 28 units subcu daily at bedtime - Accu-Cheks every before meals and at bedtime with insulin sliding scale 4. Coronary artery disease with history of PCI and stenting - Continue with aspirin, Plavix, beta blockers and nitrates 5. COPD; not in exacerbation 6. Chronic atrial fibrillation; rate controlled with metoprolol and Cardizem; continue anticoagulation with Eliquis 2.5 mg twice a day 7. Hyperlipidemia; continue with home dose of pravastatin 40 mg daily at bedtime 8. Hypertensive heart disease with concentric left ventricular hypertrophy 9. Hyponatremia; multifactorial - Diuretic therapy/ fluid overload due to chronic kidney disease - We will keep patient on fluid restriction - Consult nephrology; continue to monitor electrolytes and renal function 10. DVT prophylaxis; systemic anticoagulation with Apixaban CODE STATUS; full code Time with Patient: Greater than 30
--- NOTE | 2019-02-17 12:38 | P.PN ---
Subjective Progress Note Date: 02/17/19 Principal diagnosis: This is a 63-year-old male who was readmitted to the hospital because of persistent of shortness of breath and has pleural effusion as well as mild CHF. He is known with chronic kidney disease with diabetic nephropathy and has been 1.3 in 2016. More recently has been in the 1.8 mg to 1.9 mg in the last 2 months. He has 3.1 g proteinuria. Since readmission he was diuresed and he feels subjectively much better. Workup has shown a computed tomography scan of the chest demonstrated bilateral pleural effusion, with left basilar compressive atelectasis or infiltrate, right lobe effusion greater than left coronary artery calcification noted. Patient denies any dizziness as a good appetite Objective - Vital Signs Vital signs: Vital Signs Temp 97.9 F 02/17/19 08:00 Pulse 84 02/17/19 10:00 Resp 18 02/17/19 08:00 BP 143/71 02/17/19 08:00 Pulse Ox 99 02/17/19 09:50 Intake & Output 02/16/19 02/17/19 02/17/19 18:59 06:59 18:59 Intake Total 360 10 240 Output Total 300 1000 700 Balance 60 -990 -460 Weight 89.5 kg 87.1 kg Intake: IV 10 0.9 10 Oral 360 240 Output: Urine 300 1000 700 Other: Voiding Method Urinal Urinal Urinal # Voids 1 On exam she is awake alert oriented comfortable on room air HEENT exam no JVP is supple no facial asymmetry Lungs are significant for occasional coarse crackle at both bases good air entry bilaterally Heart sounds are unremarkable no murmur rub gallop Abdomen soft nontender Extremity exam reveals trace edema Neurologically awake alert oriented. - Labs CBC & Chem 7: 02/17/19 05:41 02/17/19 05:41 Labs: Abnormal Lab Results - Last 24 Hours (Table) 02/16/19 02/16/19 02/17/19 Range/Units 16:35 21:00 05:41 RBC 3.85 L (4.30-5.90) m/uL Hgb 11.3 L (13.0-17.5) gm/dL Hct 35.6 L (39.0-53.0) % Lymphocytes # 0.8 L (1.0-4.8) k/uL Sodium (137-145) mmol/L Chloride (98-107) mmol/L BUN (9-20) mg/dL Creatinine (0.66-1.25) mg/dL Glucose (74-99) mg/dL POC Glucose (mg/dL) 287 H 268 H (75-99) mg/dL 02/17/19 02/17/19 02/17/19 Range/Units 05:41 06:29 11:42 RBC (4.30-5.90) m/uL Hgb (13.0-17.5) gm/dL Hct (39.0-53.0) % Lymphocytes # (1.0-4.8) k/uL Sodium 135 L (137-145) mmol/L Chloride 96 L (98-107) mmol/L BUN 43 H (9-20) mg/dL Creatinine 2.03 H (0.66-1.25) mg/dL Glucose 145 H (74-99) mg/dL POC Glucose (mg/dL) 140 H 210 H (75-99) mg/dL Assessment and Plan Assessment: Impression 1. Acute kidney injury secondary to prerenal from congestive heart failure. Adequate urinary output on current Lasix dose of 40 every 12 hours intravenously. Slight worsening of creatinine, creatinine went up from 1.9-1.83-2.03 this morning, because of diuresis but subjectively much better therefore will maintain that dose for another 24 hours 2. Chronic kidney disease secondary diabetic nephropathy with 3.1 g proteinuria on 05/11/2018. Baseline creatinine about 1.4 in June 2018 and more recently his had been in the 1.8 range over the last 2 months. 3. Bilateral effusions right greater than left. Computed tomography scan proven 4. COPD with active smoker. 5. Atrial fibrillation controlled ventricular response. 6. ASHD status post stent in 2018. 7. Hemoglobin 11.4 , was more recently in the 14 range. Watch for any bleeding. 8. Mild degree of hypocalcemia likely secondary to low albumin. 9. Bicarb is 31 secondary to metabolic alkalosis from diuresis Recommendation 1. Maintain current diuretic regimen. 2. check orthostatic changes. 3. Monitor renal function. 4. Monitor acid base and metabolic alkalosis
[2019-02-17] MEDS ORDERED: LORazepam 1 MG TAB PO PRN (13:33)
--- NOTE | 2019-02-17 14:01 | P.PN ---
Subjective Progress Note Date: 02/17/19 His is a 63-year-old male patient who is coming into the hospital after being recently discharged for worsening shortness of breath, exertional dyspnea, orthopnea, lower extremity edema. The patient reports that he has minimal exercise capacity and he gets short of breath upon performing activities of the today life. He feels his lungs are checked especially when he lays down. No cough. No sputum production. No hemoptysis. No pleurisy. No chest pain. He is known to have extensive cardiac history. He has known coronary artery disease and his last cardiac catheterization was in June 2018 and the patient has had previous coronary stent insertion in the last catheterization was for a non-STEMI that occurred back in May 2018 and at that Time the patient was found to have critical stenosis of the first diagonal branch and he underwent an depressed and stenting. The patient's echocardiogram from January 2019 shows preserved LV function with an ejection fraction of 6065%. The patient has moderate concentric left ventricular hypertrophy. There is mild aortic valve sclerosis, mild TR, mild pulmonary hypertension with an estimated PA pressure of 42.6. The patient is diabetic. The patient suffers from chronic diabetic kidney disease and the patient has stage III kidney failure probably within the nephrotic range as the patient has significant amount of proteinuria on previous 24-hour urine collection. He has chronic atrial fibrillation. He has hypertension and hyperlipidemia and peripheral neuropathy. He has BPH. He has questionable history of liver cirrhosis in addition. He states that he is very compliant his fluid intake furthermore, the patient had a recent pacemaker insertion and this was inserted for tachybradycardia syndrome. Is on long-term and coagulation with Eliquis. During this current admission, chest x-ray was done and showed better pleural effusion right more than left and for that reason a pulmonary consultation was requested. Patient's BNP level is 4004 100. First set of troponin is negative. Serum albumin is at 2.9. Correlation profile is within normal. Creatinine shows a level of 1.9 with a GFR of 37 consistent with stage III kidney disease. The patient is currently on IV Lasix. CAT scan of the chest was ordered without contrast and that showed cardiomegaly and bilateral pleural effusion right more than left along with compressive atelectatic changes in the right lung base. The patient is seen today on 02/16/2019 in follow-up on the selective care unit. He is currently sitting up in a chair at the bedside. He is awake and alert in no acute distress. he is maintaining good O2 saturations in the upper 90s on 2 L/m per nasal cannula.white count 8.6. Hemoglobin 11.4. Bicarb 31. Creatinine 1.83. he remains on Lasix 40 mg IV every 12 hours.he is currently in a negative balance. He is breathing quite a bit easier today as compared to yesterday. On 02/17/2019 I'm seeing this patient for a follow-up. The patient is doing better. Less short of breath. He still having difficulties when he lay down flat in bed and he was having some difficulties in sleeping overnight. Otherwise is currently on room air. His emanating. His diabetes significantly. Lower extremity edema is also improving. His net fluid balance is -1 L over the past 24 hours. Renal function is stable. Creatinine is at 2.03. I discussed the case with nephrology and an outpatient QUINCY inhibitor will be introduced at a later stage knowing that the patient is diabetic nephropathy and significant level of proteinuria. No chest pain. No cough or sputum production. No other significant events otherwise for now Objective - Vital Signs Vital signs: Vital Signs Temp 97.9 F 02/17/19 08:00 Pulse 84 02/17/19 10:00 Resp 18 02/17/19 08:00 BP 143/71 02/17/19 08:00 Pulse Ox 99 02/17/19 09:50 Intake & Output 02/16/19 02/17/19 02/17/19 18:59 06:59 18:59 Intake Total 360 10 240 Output Total 300 1000 700 Balance 60 -990 -460 Weight 89.5 kg 87.1 kg Intake: IV 10 0.9 10 Oral 360 240 Output: Urine 300 1000 700 Other: Voiding Method Urinal Urinal Urinal # Voids 1 - Exam General appearance: alert, in no apparent distress, calm and comfortable. Head exam: Present: atraumatic, normocephalic, normal inspection Eye exam: Present: normal appearance, PERRL, EOMI. Absent: scleral icterus, conjunctival injection, periorbital swelling ENT exam: Present: normal exam, mucous membranes moist Neck exam: Present: normal inspection, full ROM. Absent: tenderness, meningismus, lymphadenopathy Respiratory exam: Present: wheezes. in the breath sounds are quite diminished in lung bases along with some bibasilar crackles. Breath sounds are more diminished in the right compared to left. Cardiovascular Exam: Present: irregular rate, normal rhythm, normal heart sounds. Absent: systolic murmur, diastolic murmur, rubs, gallop, clicks GI/Abdominal exam: Present: soft, normal bowel sounds. Absent: distended, tenderness, guarding, rebound, rigid Extremities exam: Present: pedal edema (3+ pitting edema) Neurological exam: Present: alert, oriented X3, CN II-XII intact Psychiatric exam: Present: normal affect, normal mood - Labs CBC & Chem 7: 02/17/19 05:41 02/17/19 05:41 Labs: Abnormal Lab Results - Last 24 Hours (Table) 02/16/19 02/16/19 02/17/19 Range/Units 16:35 21:00 05:41 RBC 3.85 L (4.30-5.90) m/uL Hgb 11.3 L (13.0-17.5) gm/dL Hct 35.6 L (39.0-53.0) % Lymphocytes # 0.8 L (1.0-4.8) k/uL Sodium (137-145) mmol/L Chloride (98-107) mmol/L BUN (9-20) mg/dL Creatinine (0.66-1.25) mg/dL Glucose (74-99) mg/dL POC Glucose (mg/dL) 287 H 268 H (75-99) mg/dL 02/17/19 02/17/19 02/17/19 Range/Units 05:41 06:29 11:42 RBC (4.30-5.90) m/uL Hgb (13.0-17.5) gm/dL Hct (39.0-53.0) % Lymphocytes # (1.0-4.8) k/uL Sodium 135 L (137-145) mmol/L Chloride 96 L (98-107) mmol/L BUN 43 H (9-20) mg/dL Creatinine 2.03 H (0.66-1.25) mg/dL Glucose 145 H (74-99) mg/dL POC Glucose (mg/dL) 140 H 210 H (75-99) mg/dL Assessment and Plan Plan: assessment 1 acute on chronic shortness of breath, consistent with the patient's history of congestion heart failure. Also, the patient's chronic renal failure, likely nephrotic in nature and the patient has significant amount of fluid overload with increased lower extremity edema and development of bilateral pleural effusion right more than left. He would benefit from diuretics. CAT scan of the chest shows atelectatic changes in lung bases right more than left lung with bilateral pleural effusions 2 chronic kidney disease, stage IV, secondary to diabetic nephropathy, possibly nephrotic at this stage 3 diabetes mellitus type 2 with diabetic nephropathy and neuropathy 4 coronary artery disease 5 COPD currently inactive in stable 6 chronic atrial fibrillation, well-controlled on long-term anticoagulation 7 hyperlipidemia 8 coronary artery disease with previous coronary intervention and stenting 9 hypertensive heart disease with concentric left ventricular hypertrophy 10 hypochloremic hyponatremia secondary to above, improved and the sodium level is up to 135. Plan Clinically the patient is improving. Continued IV Lasix. Patient is already negative fluid balance. Monitor renal function. The patient is less short of breath. Anticipate further improvement over the next 24-48 hours. Addition of QUINCY inhibitor on outpatient basis reasonable. Case was discussed with nephrology.
[2019-02-17 16:41] LABS: Glucose,Whole Blood 401 mg/dL (75-99)
[2019-02-17 20:43] LABS: Glucose,Whole Blood 255 mg/dL (75-99)
[2019-02-17] MEDS: MONTELUKAST 10 MG TAB PO SCH (21:02)
[2019-02-17] MEDS: PRAVASTATIN SODIUM 40 MG TAB PO SCH (21:03)
[2019-02-17] MEDS: CLOPIDOGREL 75 MG TAB PO SCH (21:03)
[2019-02-17] MEDS: INSULIN DETEMIR (LEVEMIR) 100 UNIT/ML SYR SQ SCH (21:04)
[2019-02-18] MEDS: IPRATROPIUM-ALBUTEROL 3 ML NEB INHALATION SCH ×3 (01:38→12:58)
[2019-02-18 06:16] LABS: Glucose,Whole Blood 119 mg/dL (75-99)
[2019-02-18] MEDS: PANTOPRAZOLE 40 MG TABLET PO SCH (06:45)
[2019-02-18] MEDS: SODIUM CHLORIDE 0.9% 1,000 ML IV SCH ×2 (07:37→07:38)
[2019-02-18] MEDS: INSULIN ASPART (NovoLOG) 100 UNIT/ML VIAL SQ SCH ×2 (08:31→12:42)
[2019-02-18] MEDS: APIXABAN 2.5 MG TABLET PO SCH (08:32)
[2019-02-18] MEDS: DILTIAZEM ORAL 30 MG TAB PO SCH ×2 (08:32→15:09)
[2019-02-18] MEDS: CHOLECALCIFEROL 1,000 UNIT TAB PO SCH (08:32)
[2019-02-18] MEDS: hydrALAZINE HCL 50 MG TAB PO SCH ×2 (08:33→15:10)
[2019-02-18] MEDS: FUROSEMIDE 10 MG/ML 4 ML VIAL IV SCH (08:33)
[2019-02-18] MEDS: METOPROLOL TARTRATE 25 MG TAB PO SCH ×2 (08:33→15:10)
[2019-02-18] MEDS: ISOSORBIDE MONONITRATE ER 30 MG TAB.ER.24H PO SCH (08:33)
[2019-02-18 11:23] LABS: Glucose,Whole Blood 293 mg/dL (75-99)
[2019-02-18 11:24] VITALS: TEMP 98.7
--- NOTE | 2019-02-18 12:02 | P.PN ---
Subjective Patient is seen in follow-up for acute kidney injury on chronic kidney disease. Patient has chronic kidney disease stage III with baseline creatinine in the range of 1.8-1.9 secondary to diabetic kidney disease. Creatinine was up to 2.03 yesterday. He's currently maintained on IV diuretics. Edema is improving. No chest pain or shortness of breath. He is nonoliguric. Vital signs are stable. General: The patient appeared well nourished and normally developed. HEENT: Head exam is unremarkable. Neck is without jugular venous distension. LUNGS: Breath sounds decreased. HEART: Rate and Rhythm are regular. First and second heart sounds normal. No murmurs, rubs or gallops. ABDOMEN: Abdominal exam reveals normal bowel sounds. Non-tender and non- distended. No evidence of peritonitis. EXTREMITITES: 1+ edema. Objective - Vital Signs Vital signs: Vital Signs Temp 98.7 F 02/18/19 07:45 Pulse 68 02/18/19 07:54 Resp 18 02/18/19 07:54 BP 128/74 02/18/19 07:45 Pulse Ox 93 L 02/18/19 07:45 Intake & Output 02/17/19 02/18/19 02/18/19 18:59 06:59 18:59 Intake Total 720 360 Output Total 1700 2550 Balance -980 -2550 360 Weight 84.5 kg Intake: Oral 720 360 Output: Urine 1700 2550 Other: Voiding Method Urinal Urinal Urinal # Voids 1 - Labs CBC & Chem 7: 02/17/19 05:41 02/17/19 05:41 Labs: Abnormal Lab Results - Last 24 Hours (Table) 02/17/19 02/17/19 02/18/19 Range/Units 16:31 20:41 06:09 POC Glucose (mg/dL) 401 H 255 H 119 H (75-99) mg/dL 02/18/19 Range/Units 11:21 POC Glucose (mg/dL) 293 H (75-99) mg/dL Assessment and Plan Plan: Assessment: 1. Acute kidney injury mostly prerenal secondary to cardiorenal syndrome. Creatinine 2.03 as of yesterday. 2. Chronic kidney disease stage III with baseline creatinine in the range of 1.8-1.9 secondary to diabetic kidney disease. 3. Volume overload. 4. Diastolic CHF. 5. Insulin-dependent diabetes mellitus. 6. Hypertension with chronic kidney disease. Controlled. Plan: Maintain Lasix 40 mg IV twice daily. Can transition to 40 mg orally twice daily upon discharge. I advised them to follow a low-salt diet as well as maintain 50 ounce fluid restriction per day. Repeat electrolytes in the morning. He will need to follow-up as an outpatient in the next 1-2 weeks.
[2019-02-18] MEDS ORDERED: INSULIN ASPART (NovoLOG) 100 UNIT/ML VIAL SQ ONE (12:15)
--- NOTE | 2019-02-18 12:22 | P.PN ---
Subjective Progress Note Date: 02/17/19 Principal diagnosis: Dyspnea Acute exacerbation CHF Acute renal injury This is a 63-year-old male came in because of shortness of breath. He was released from the hospital yesterday but came right back as she felt that he had some pressure and shortness of breath. This morning he is feeling better after diuresis. 02/16/2019 Patient is seen and evaluated in the room at bedside for follow-up; patient does report some improvement in shortness of breath but continues to complain of swelling both lower extremities; she denies any chest pain no redness or pain lower extremities Vital signs remained stable in form of temperature of 97.7, pulse 82, res piration 18 and blood pressure 131/60; SpO2 of 98% on 2 L Laboratory review shows CBC which is unremarkable; sodium is improved to 131; slight improvement in renal function with B UN/creatinine of 41/1.83; blood sugars ranging between 164-211 Patient has been seen and evaluated by nephrology and is recommended to continue with IV Lasix 40 mg twice a day along with close monitoring of renal function, electrolytes and daily weights; check for orthostatic hypotension and monitor for metabolic alkalosis 02/17/2019 Patient is seen and evaluated in the room sitting in the bedside chair along with nephrology and pulmonary service The patient is doing better. Less short of breath. He still having difficulties when he lay down flat in bed and he was having some difficulties in sleeping overnight. Otherwise is currently on room air. Lower extremity edema is also improving. His net fluid balance is -1 L over the past 24 hours. Creatinine is at 2.03. Patient discussed with nephrology and and pulmonary; an outpatient QUINCY inhibitor will be introduced at a later stage knowing that the patient is diabetic nephropathy and significant level of proteinuria. No chest pain. No cough or sputum production. No other significant events otherwise for now Patient continues to complain about difficulty sleeping; relates he took Restoril last night which did not help with sleep; we will add a small dose of oral Ativan and continue to monitor patient Plan is to discharge patient in next 24 hours on oral Lasix if remains stable Objective - Vital Signs Vital signs: Vital Signs Temp 97.9 F 02/17/19 08:00 Pulse 84 02/17/19 10:00 Resp 18 02/17/19 08:00 BP 143/71 02/17/19 08:00 Pulse Ox 99 02/17/19 09:50 Intake & Output 02/16/19 02/17/19 02/17/19 18:59 06:59 18:59 Intake Total 360 10 240 Output Total 300 1000 700 Balance 60 -990 -460 Weight 89.5 kg 87.1 kg Intake: IV 10 0.9 10 Oral 360 240 Output: Urine 300 1000 700 Other: Voiding Method Urinal Urinal Urinal # Voids 1 - Exam General appearance: alert, in no apparent distress, calm and comfortable Head exam: Present: atraumatic, normocephalic, normal inspection Eye exam: Present: normal appearance, PERRL, EOMI. Absent: scleral icterus, conjunctival injection, periorbital swelling ENT exam: Present: normal exam, mucous membranes moist Neck exam: Present: normal inspection, full ROM. Absent: tenderness, men ingismus, lymphadenopathy Respiratory exam: Present: wheezes. in the breath sounds are quite diminished in lung bases along with some bibasilar crackles. Breath sounds are more diminished in the right compared to left. Cardiovascular Exam: Present: irregular rate, normal rhythm, normal heart sounds. Absent: systolic murmur, diastolic murmur, rubs, gallop, clicks GI/Abdominal exam: Present: soft, normal bowel sounds. Absent: distended, tenderness, guarding, rebound, rigid Extremities exam: Present: pedal edema (3+ pitting edema) - Labs CBC & Chem 7: 02/17/19 05:41 02/17/19 05:41 Labs: Abnormal Lab Results - Last 24 Hours (Table) 02/16/19 02/16/19 02/17/19 Range/Units 16:35 21:00 05:41 RBC 3.85 L (4.30-5.90) m/uL Hgb 11.3 L (13.0-17.5) gm/dL Hct 35.6 L (39.0-53.0) % Lymphocytes # 0.8 L (1.0-4.8) k/uL Sodium (137-145) mmol/L Chloride (98-107) mmol/L BUN (9-20) mg/dL Creatinine (0.66-1.25) mg/dL Glucose (74-99) mg/dL POC Glucose (mg/dL) 287 H 268 H (75-99) mg/dL 0302/17/19 02/17/19 Range/Units 05:41 06:29 11:42 RBC (4.30-5.90) m/uL Hgb (13.0-17.5) gm/dL Hct (39.0-53.0) % Lymphocytes # (1.0-4.8) k/uL Sodium 135 L (137-145) mmol/L Chloride 96 L (98-107) mmol/L BUN 43 H (9-20) mg/dL Creatinine 2.03 H (0.66-1.25) mg/dL Glucose 145 H (74-99) mg/dL POC Glucose (mg/dL) 140 H 210 H (75-99) mg/dL Assessment and Plan Assessment: 1. Acute on chronic dyspnea, multifactorial - Acute exacerbation of CHF - Fluid overload secondary to chronic kidney disease likely nephrotic in nature - Bilateral pleural effusion; right greater than left CAT scan of the chest shows atelectatic changes in lung bases right more than left lung with bilateral pleural effusions Patient is started on IV diuretic therapy in the form of Lasix 40 mg IV every 12 hours We plan to monitor strict IMMANUEL's, daily weights, renal function and electrolytes 2. Chronic kidney disease, stage IV, secondary to diabetic nephropathy, possibly nephrotic at this stage 3. Diabetes mellitus type 2; with diabetic nephropathy and neuropathy - Continue with home dose of Levemir 28 units subcu daily at bedtime - Accu-Cheks every before meals and at bedtime with insulin sliding scale 4. Coronary artery disease with history of PCI and stenting - Continue with aspirin, Plavix, beta blockers and nitrates 5. COPD; not in exacerbation 6. Chronic atrial fibrillation; rate controlled with metoprolol and Cardizem; continue anticoagulation with Eliquis 2.5 mg twice a day 7. Hyperlipidemia; continue with home dose of pravastatin 40 mg daily at bedtime 8. Hypertensive heart disease with concentric left ventricular hypertrophy 9. Hyponatremia; multifactorial - Diuretic therapy/ fluid overload due to chronic kidney disease - We will keep patient on fluid restriction - Consult nephrology; continue to monitor electrolytes and renal function 10. DVT prophylaxis; systemic anticoagulation with Apixaban CODE STATUS; full code Time with Patient: Greater than 30
--- NOTE | 2019-02-18 12:23 | P.DS ---
Providers Date of admission: 02/15/19 11:22 Expected date of discharge: 02/18/19 Attending physician: Hiral Link Consults: 02/15/19 10:48 Consult Physician Routine Consulting Provider: Clay Queen Consult Reason/Comments: dyspnea Do you want consulting provider notified?: Yes 02/15/19 17:00 Consult Physician Routine Consulting Provider: Dax Champagne Consult Reason/Comments: Acute on chronic kidney disease/I pointed treatment Do you want consulting provider notified?: Yes 02/18/19 11:21 Consult Physician Routine Consulting Provider: Alfonso Fitch Consult Reason/Comments: recent pacer Do you want consulting provider notified?: Already Contacted Primary care physician: [facility] Course: This is a 63-year-old male came in because of shortness of breath. He was released from the hospital yesterday but came right back as she felt that he had some pressure and shortness of breath. This morning he is feeling better after diuresis. 02/16/2019 Patient is seen and evaluated in the room at bedside for follow-up; patient does report some improvement in shortness of breath but continues to complain of swelling both lower extremities; she denies any chest pain no redness or pain lower extremities Vital signs remained stable in form of temperature of 97.7, pulse 82, respiration 18 and blood pressure 131/60; SpO2 of 98% on 2 L Laboratory review shows CBC which is unremarkable; sodium is improved to 131; slight improvement in renal function with B UN/creatinine of 41/1.83; blood sugars ranging between 164-211 Patient has been seen and evaluated by nephrology and is recommended to continue with IV Lasix 40 mg twice a day along with close monitoring of renal function, electrolytes and daily weights; check for orthostatic hypotension and monitor for metabolic alkalosis 02/17/2019 Patient is seen and evaluated in the room sitting in the bedside chair along with nephrology and pulmonary service The patient is doing better. Less short of breath. He still having difficulties when he lay down flat in bed and he was having some difficulties in sleeping overnight. Otherwise is currently on room air. Lower extremity edema is also improving. His net fluid balance is -1 L over the past 24 hours. Creatinine is at 2.03. Patient discussed with nephrology and and pulmonary; an outpatient QUINCY inhibitor will be introduced at a later stage knowing that the patient is diabetic nephropathy and significant level of proteinuria. No chest pain. No cough or sputum production. No other significant events otherwise for now Patient continues to complain about difficulty sleeping; relates he took Restoril last night which did not help with sleep; we will add a small dose of oral Ativan and continue to monitor patient Plan is to discharge patient in next 24 hours on oral Lasix if remains stable Patient Condition at Discharge: Fair Plan - Discharge Summary Discharge Rx Participant: No New Discharge Prescriptions: New Furosemide [Lasix] 40 mg PO BID #60 tablet Continue Insulin Detemir (Levemir) [Levemir] 28 unit SQ HS Fluticasone Nasal [place] [Flonase Nasal [place]] 1 spray EA NOSTRIL BID PRN PRN Reason: Congestion Pravastatin Sodium [Pravachol] 40 mg PO HS hydrALAZINE HCL [Apresoline] 100 mg PO TID #90 tab Nitroglycerin Sl Tabs [Nitrostat] 0.4 mg SUBLINGUAL Q5M PRN #25 tab PRN Reason: Chest Pain Cholecalciferol [Vitamin D3] 3,000 unit PO PC-BRKFST Isosorbide Mononitrate ER [Imdur] 30 mg PO DAILY Pantoprazole [Protonix] 40 mg PO DAILY Apixaban [Eliquis] 2.5 mg PO BID #60 tab Montelukast [Singulair] 10 mg PO HS INSULIN ASPART (NovoLOG) [NovoLOG (formulary)] See Protocol SQ TID-W/MEALS Metoprolol Tartrate [Lopressor] 75 mg PO TID #90 tab Diltiazem Oral [Cardizem*] 90 mg PO TID #90 tab Temazepam [Restoril] 15 mg PO HS PRN #5 cap PRN Reason: Insomnia Clopidogrel [Plavix] 75 mg PO HS Discharge Medication List Insulin Detemir (Levemir) [Levemir] 28 unit SQ HS 08/18/14 [History] Fluticasone Nasal [place] [Flonase Nasal [place]] 1 spray EA NOSTRIL BID PRN 05/12/16 [History] Pravastatin Sodium [Pravachol] 40 mg PO HS 12/06/17 [History] hydrALAZINE HCL [Apresoline] 100 mg PO TID #90 tab 06/07/18 [Rx] Nitroglycerin Sl Tabs [Nitrostat] 0.4 mg SUBLINGUAL Q5M PRN #25 tab 06/28/18 [Rx] Cholecalciferol [Vitamin D3] 3,000 unit PO PC-BRKFST 08/26/18 [History] Isosorbide Mononitrate ER [Imdur] 30 mg PO DAILY 01/16/19 [History] Pantoprazole [Protonix] 40 mg PO DAILY 01/16/19 [History] Apixaban [Eliquis] 2.5 mg PO BID #60 tab 02/04/19 [Rx] INSULIN ASPART (NovoLOG) [NovoLOG (formulary)] See Protocol SQ TID-W/MEALS 02/12/19 [History] Montelukast [Singulair] 10 mg PO HS 02/12/19 [History] Diltiazem Oral [Cardizem*] 90 mg PO TID #90 tab 02/14/19 [Rx] Metoprolol Tartrate [Lopressor] 75 mg PO TID #90 tab 02/14/19 [Rx] Temazepam [Restoril] 15 mg PO HS PRN #5 cap 02/14/19 [Rx] Clopidogrel [Plavix] 75 mg PO HS 02/15/19 [History] Furosemide [Lasix] 40 mg PO BID #60 tablet 02/18/19 [Rx] Follow up Appointment(s)/Referral(s): Zeina Morgan MD [STAFF PHYSICIAN] - 02/21/19 8:45 am ( -Previously scheduled appointment) Ivy Valentine DO [Primary Care Provider] - 02/22/19 11:40 am (Monday) Dax Champagne DO [STAFF PHYSICIAN] - 1 Week Activity/Diet/Wound Care/Special Instructions: Patient advised to follow a low-salt diet with 50 pounds fluid restriction per day Discharge Disposition: HOME SELF-CARE
--- NOTE | 2019-02-18 12:49 | P.PN ---
Subjective Progress Note Date: 02/18/19 Principal diagnosis: Acute exacerbation of chronic diastolic congestive heart failure His is a 63-year-old male patient who is coming into the hospital after being recently discharged for worsening shortness of breath, exertional dyspnea, orthopnea, lower extremity edema. The patient reports that he has minimal exercise capacity and he gets short of breath upon performing activities of the today life. He feels his lungs are checked especially when he lays down. No cough. No sputum production. No hemoptysis. No pleurisy. No chest pain. He is known to have extensive cardiac history. He has known coronary artery disease and his last cardiac catheterization was in June 2018 and the patient has had previous coronary stent insertion in the last catheterization was for a non-STEMI that occurred back in May 2018 and at that Time the patient was found to have critical stenosis of the first diagonal branch and he underwent an depressed and stenting. The patient's echocardiogram from January 2019 shows preserved LV function with an ejection fraction of 6065%. The patient has moderate concentric left ventricular hypertrophy. There is mild aortic valve sclerosis, mild TR, mild pulmonary hypertension with an estimated PA pressure of 42.6. The patient is diabetic. The patient suffers from chronic diabetic kidney disease and the patient has stage III kidney failure probably within the nephrotic range as the patient has significant amount of proteinuria on previous 24-hour urine collection. He has chronic atrial fibrillation. He has hypertension and hyperlipidemia and peripheral neuropathy. He has BPH. He has questionable history of liver cirrhosis in addition. He states that he is very compliant his fluid intake furthermore, the patient had a recent pacemaker insertion and this was inserted for tachybradycardia syndrome. Is on long-term and coagulation with Eliquis. During this current admission, chest x-ray was done and showed better pleural effusion right more than left and for that reason a pulmonary consultation was requested. Patient's BNP level is 4004 100. First set of troponin is negative. Serum albumin is at 2.9. Correlation profile is within normal. Creatinine shows a level of 1.9 with a GFR of 37 consistent with stage III kidney disease. The patient is currently on IV Lasix. CAT scan of the chest was ordered without contrast and that showed cardiomegaly and bilateral pleural effusion right more than left along with compressive atelectatic changes in the right lung base. The patient is seen today on 02/16/2019 in follow-up on the selective care unit. He is currently sitting up in a chair at the bedside. He is awake and alert in no acute distress. he is maintaining good O2 saturations in the upper 90s on 2 L/m per nasal cannula.white count 8.6. Hemoglobin 11.4. Bicarb 31. Creatinine 1.83. he remains on Lasix 40 mg IV every 12 hours.he is currently in a negative balance. He is breathing quite a bit easier today as compared to yesterday. On 02/17/2019 I'm seeing this patient for a follow-up. The patient is doing better. Less short of breath. He still having difficulties when he lay down flat in bed and he was having some difficulties in sleeping overnight. Otherwise is currently on room air. His emanating. His diabetes significantly. Lower extremity edema is also improving. His net fluid balance is -1 L over the past 24 hours. Renal function is stable. Creatinine is at 2.03. I d iscussed the case with nephrology and an outpatient QUINCY inhibitor will be introduced at a later stage knowing that the patient is diabetic nephropathy and significant level of proteinuria. No chest pain. No cough or sputum production. No other significant events otherwise for now The patient is seen today 02/18/2019 in follow-up on the selective care unit. He is awake and alert in no acute distress. He's been up ambulating in the hallway. He denies any shortness of breath, cough or congestion. Back to his baseline as far as his breathing is concerned. Maintaining good O2 saturations in the 90s on room air. He's afebrile. Hemodynamically stable. He is currently on Lasix 40 mg IV every 12 hours. He remains in a negative balance. Objective - Vital Signs Vital signs: Vital Signs Temp 98.7 F 02/18/19 07:45 Pulse 68 02/18/19 07:54 Resp 18 02/18/19 07:54 BP 128/74 02/18/19 07:45 Pulse Ox 93 L 02/18/19 07:45 Intake & Output 02/17/19 02/18/19 02/18/19 18:59 06:59 18:59 Intake Total 720 360 Output Total 1700 2550 Balance -980 -2550 360 Weight 84.5 kg Intake: Oral 720 360 Output: Urine 1700 2550 Other: Voiding Method Urinal Urinal Urinal # Voids 1 - Exam General appearance: alert, in no apparent distress, calm and comfortable. on room air Head exam: Present: atraumatic, normocephalic, normal inspection Eye exam: Present: normal appearance, PERRL, EOMI. Absent: scleral icterus, conjunctival injection, periorbital swelling ENT exam: Present: normal exam, mucous membranes moist Neck exam: Present: normal inspection, full ROM. Absent: tenderness, meningismus, lymphadenopathy Respiratory exam: Present: wheezes. in the breath sounds are quite diminished in lung bases along with some bibasilar crackles. Breath sounds are more diminished in the right compared to left. Cardiovascular Exam: Present: irregular rate, normal rhythm, normal heart sounds. Absent: systolic murmur, diastolic murmur, rubs, gallop, clicks GI/Abdominal exam: Present: soft, normal bowel sounds. Absent: distended, te nderness, guarding, rebound, rigid Extremities exam: Present: pedal edema (3+ pitting edema) Neurological exam: Present: alert, oriented X3, CN II-XII intact Psychiatric exam: Present: normal affect, normal mood - Labs CBC & Chem 7: 02/17/19 05:41 02/17/19 05:41 Labs: Abnormal Lab Results - Last 24 Hours (Table) 02/17/19 02/17/19 02/18/19 Range/Units 16:31 20:41 06:09 POC Glucose (mg/dL) 401 H 255 H 119 H (75-99) mg/dL 02/18/19 Range/Units 11:21 POC Glucose (mg/dL) 293 H (75-99) mg/dL Assessment and Plan Assessment: Assessment 1 acute on chronic shortness of breath, consistent with the patient's history of chronic diastolic congestive heart failure. Also, the patient's chronic renal failure, likely nephrotic in nature and the patient has significant amount of fluid overload with increased lower extremity edema and development of bilateral pleural effusion right more than left. He is benefiting from diuretics. early in a negative balance. CAT scan of the chest shows atelectatic changes in lung bases right more than left lung with bilateral pleural effusions 2 chronic kidney disease, stage IV, secondary to diabetic nephropathy, possibly nephrotic at this stage 3 diabetes mellitus type 2 with diabetic nephropathy and neuropathy 4 coronary artery disease 5 COPD currently inactive in stable 6 chronic atrial fibrillation 7 hyperlipidemia 8 coronary artery disease with previous coronary intervention and stenting 9 hypertensive heart disease with concentric left ventricular hypertrophy 10 hypochloremic hyponatremia secondary to above Plan The patient was seen and evaluated by Dr. Calero. He is stable for discharge from the pulmonary standpoint. He'll follow-up in our office in 1-2 weeks' time. We'll perform pulmonary function testing to evaluate the severity of his suspected COPD. He is encouraged to call sooner with any recurrence of symptoms or other questions or concerns. I, the cosigning physician, performed a history & physical examination of the patient. Lungs sounds with crackles in the posterior bases. Diminished. Maintaining good O2 saturations in the 90s on room air. I discussed the assessment and plan of care with my nurse practitioner, Chelsea Shankar. I attest to the above note as dictated by her.
[2019-02-18 16:25] LABS: Glucose,Whole Blood 198 mg/dL (75-99)
[2019-02-18 16:43] VITALS: BP 136/70; PULSE 78
--- NOTE | 2019-02-18 20:23 | P.CRDCN ---
History of Present Illness History of present illness: This is Dr. Fitch dictating an electrophysiology consult on this patient The patient was interviewed and examined by me IMPRESSION / ASSESSMENT: Paroxysmal atrial fibrillation Status post recent permanent pacemaker implantation for tachybradycardia syndrome Coronary artery disease status post stenting to the diagonal vessel in June 2018 in the setting of a non-Q-wave myocardial infarction Chronic kidney disease, creatinine 1.8-2.0, diabetic nephropathy with proteinuria Preserved LV size and systolic function moderately dilated left atrium normal size RA RVSP 40 mmHg Moderate left ventricular hypertrophy PLAN: At this time the patient's atrial fibrillation appears to be rate controlled. He has recently undergone permanent pacemaker implantation about 1 week back I would suggest maximizing metoprolol. He was intolerant of carvedilol. He is also intolerant of amlodipine Continue anticoagulation for stroke prevention He has paroxysmal atrial fibrillation and if despite rate control he complains of tiredness fatigue and shortness of breath during episodes of atrial fi brillation which are documented by wireless monitoring as well as improvement in symptoms during sinus rhythm at atrial paced rhythm then cryoablation of the pulmonary veins may be considered after 4-5 months. I have advised the patient to hold off on any antiarrhythmic drugs/therapies, but simply continue metoprolol him maximally tolerated doses HPI Patient presented with shortness of breath and lower extremity edema He was also intolerant of amlodipine which caused swelling in the legs and c ontent He was intolerant of carvedilol Previously he was tolerating metoprolol ROS: No fever chills or rigors, no cough, phlegm or expectoration, no nausea, vomiting or diarrhea, no hematuria, dysuria, no musculoskeletal complaints, no strokes or seizures, no skin lesions. EXAMINATION: Patient is sitting comfortably in chair Reduced breath sounds bilaterally but no rhonchi no crackles Heart sounds are irregular no murmurs or gallop Abdomen soft nontender Trace bilateral lower extremity edema No JVD Pacemaker site is healing well REVIEW OF LABS, ECG & MEDICAL DATA Sodium 135, potassium 3.7, BUN 43, creatinine 2.0, Normal troponin Hemoglobin 11.3 Twelve-lead ECG shows atrial fibrillation with intermittent ventricular pacing Patient underwent permanent pacemaker implantation 1-[address] Chavarria for sick sinus syndrome and bradycardia Past Medical History Past Medical History: Atrial Fibrillation, Coronary Artery Disease (CAD), Chest Pain / Angina, Heart Failure, COPD, Diabetes Mellitus, GERD/Reflux, Hyper lipidemia, Hypertension, Liver Disease, Myocardial Infarction (DE), Prostate Disorder, Renal Disease, Skin Disorder Additional Past Medical History / Comment(s): Pt recently admitted for tachbrady syndrome and had pacer placed and admitted again 02/13/19 with afib RVR/ R small pleural effusion. Other hx: IDDM type II, neuropathy bilateral feet, nephropathy-ckd stage III, chronic CHF, liver cirrhosis, BPH, DJD, herniated discs low back, chronic low back pain, DJD, varicose veins bilaterally, anemia, past asbestos exposure, celiac disease. Last Myocardial Infarction Date:: 06/2018 History of Any Multi-Drug Resistant Organisms: None Reported Past Surgical History: Cholecystectomy, Heart Catheterization With Stent, Pacemaker, Tonsillectomy Additional Past Surgical History / Comment(s): PCI with STENTS, bilateral cataracts removed with lens implants, colonoscopy. Catarac Removal Past Anesthesia/Blood Transfusion Reactions: No Reported Reaction Date of Last Stent Placement:: 2017 Type of Cardiac Device: Permanent Pacemaker Device Placement Date:: 02/02/19 Smoking Status: Current every day smoker - Past Family History Mother Family Medical History: Diabetes Mellitus Father Family Medical History: Myocardial Infarction (DE) Additional Family Medical History / Comment(s): Father had a DE in his 70s. Brother(s) Family Medical History: Myocardial Infarction (DE) Additional Family Medical History / Comment(s): Brother had a DE in his 50s. Medications and Allergies Home Medications Medication Instructions Recorded Confirmed Type Insulin Detemir (Levemir) [Levemir] 28 unit SQ HS 08/18/14 02/15/19 History Fluticasone Nasal [place] [Flonase 1 spray EA NOSTRIL BID PRN 05/12/16 02/15/19 History Nasal [place]] Pravastatin Sodium [Pravachol] 40 mg PO HS 12/06/17 02/15/19 History hydrALAZINE HCL [Apresoline] 100 mg PO TID #90 tab 06/07/18 02/15/19 Rx Nitroglycerin Sl Tabs [Nitrostat] 0.4 mg SUBLINGUAL Q5M PRN #25 tab 06/28/18 02/15/19 Rx Cholecalciferol [Vitamin D3] 3,000 unit PO PC-BRKFST 08/26/18 02/15/19 History Isosorbide Mononitrate ER [Imdur] 30 mg PO DAILY 01/16/19 02/15/19 History Pantoprazole [Protonix] 40 mg PO DAILY 01/16/19 02/15/19 History Apixaban [Eliquis] 2.5 mg PO BID #60 tab 02/04/19 02/15/19 Rx INSULIN ASPART (NovoLOG) [NovoLOG See Protocol SQ TID-W/MEALS 02/12/19 02/15/19 History (formulary)] Montelukast [Singulair] 10 mg PO HS 02/12/19 02/15/19 History Diltiazem Oral [Cardizem*] 90 mg PO TID #90 tab 02/14/19 02/15/19 Rx Metoprolol Tartrate [Lopressor] 75 mg PO TID #90 tab 02/14/19 02/15/19 Rx Temazepam [Restoril] 15 mg PO HS PRN #5 cap 02/14/19 02/15/19 Rx Clopidogrel [Plavix] 75 mg PO HS 02/15/19 02/15/19 History Furosemide [Lasix] 40 mg PO BID #60 tablet 02/18/19 Rx Allergies Allergy/AdvReac Type Severity Reaction Status Date / Time amoxicillin Allergy Anaphylaxis Verified 02/15/19 08:49 cephalexin monohydrate Allergy Rash/Hives Verified 02/15/19 08:49 [From Keflex] clindamycin Allergy Rash/Hives Verified 02/15/19 08:49 gluten Allergy Unknown Verified 02/15/19 08:49 Penicillins Allergy Rash/Hives Verified 02/15/19 08:49 Sulfa (Sulfonamide Allergy Anaphylaxis Verified 02/15/19 08:49 Antibiotics) sulfamethoxazole Allergy Anaphylaxis Verified 02/15/19 08:49 [From Bactrim] trimethoprim [From Bactrim] Allergy Anaphylaxis Verified 02/15/19 08:49 amlodipine AdvReac Swelling Verified 02/15/19 08:49 carvedilol AdvReac STOMACH Verified 02/15/19 08:49 CRAMPS Physical Exam Vitals: Vital Signs Temp Pulse Pulse Resp BP Pulse Ox 02/18/19 15:00 78 18 136/70 93 L 02/18/19 13:10 64 02/18/19 13:01 66 02/18/19 12:05 65 16 127/64 96 02/18/19 07:54 68 18 02/18/19 07:45 98.7 F 68 18 128/74 93 L 02/18/19 07:43 69 18 93 L 02/18/19 04:00 98.3 F 68 18 137/69 92 L 02/18/19 00:00 98.6 F 66 18 138/66 93 L Intake and Output 02/18/19 02/18/19 02/18/19 06:59 14:59 22:59 Intake Total 960 Output Total 1450 500 Balance -1450 460 Intake: Oral 960 Output: Urine 1450 500 Other: Voiding Method Urinal Urinal Urinal # Voids 1 Weight 84.5 kg Results 02/17/19 05:41 02/17/19 05:41 Intake and Output 02/18/19 02/18/19 02/18/19 06:59 14:59 22:59 Intake Total 960 Output Total 1450 500 Balance -1450 460 Intake: Oral 960 Output: Urine 1450 500 Other: Voiding Method Urinal Urinal Urinal # Voids 1 Weight 84.5 kg 02/17/19 05:41 02/17/19 05:41
== END 2019-02-18 17:24 | disposition home or self-care (01) | DRG 682 ==
LOC: EC 08:18 → 3SCARD 11:22
PROVIDERS: ADMIT Internal Medicine; ATTEND Internal Medicine
PROC: 5A1D70Z Performance of Urinary Filtration, Intermittent, Less than 6 Hours Per Day (ICD-10-PCS; principal; 2019-02-15)
DX: N17.9 Acute kidney failure, unspecified (principal); I50.33 Acute on chronic diastolic (congestive) heart failure; I13.0 Hypertensive heart and chronic kidney disease with heart failure and stage 1 through stage 4 chronic kidney disease, or unspecified chronic kidney disease; E87.1 Hypo-osmolality and hyponatremia; E87.3 Alkalosis; J98.11 Atelectasis; N18.4 Chronic kidney disease, stage 4 (severe); E11.22 Type 2 diabetes mellitus with diabetic chronic kidney disease; E11.40 Type 2 diabetes mellitus with diabetic neuropathy, unspecified; E87.8 Other disorders of electrolyte and fluid balance, not elsewhere classified; I27.20 Pulmonary hypertension, unspecified; E11.65 Type 2 diabetes mellitus with hyperglycemia; I08.2 Rheumatic disorders of both aortic and tricuspid valves; E83.51 Hypocalcemia; K74.60 Unspecified cirrhosis of liver; E78.5 Hyperlipidemia, unspecified; F17.200 Nicotine dependence, unspecified, uncomplicated; I25.10 Atherosclerotic heart disease of native coronary artery without angina pectoris; I25.2 Old myocardial infarction; I25.84 Coronary atherosclerosis due to calcified coronary lesion; I48.2 Chronic atrial fibrillation; J44.9 Chronic obstructive pulmonary disease, unspecified; K21.9 Gastro-esophageal reflux disease without esophagitis; K90.0 Celiac disease; N40.0 Benign prostatic hyperplasia without lower urinary tract symptoms; G89.29 Other chronic pain; I83.93 Asymptomatic varicose veins of bilateral lower extremities; M19.90 Unspecified osteoarthritis, unspecified site; M51.36 Other intervertebral disc degeneration, lumbar region; T50.2X5A Adverse effect of carbonic-anhydrase inhibitors, benzothiadiazides and other diuretics, initial encounter; Z77.090 Contact with and (suspected) exposure to asbestos; Z88.1 Allergy status to other antibiotic agents; Z88.0 Allergy status to penicillin; Z88.2 Allergy status to sulfonamides; Z88.8 Allergy status to other drugs, medicaments and biological substances; Z98.42 Cataract extraction status, left eye; Z98.41 Cataract extraction status, right eye; Z96.1 Presence of intraocular lens; Z79.01 Long term (current) use of anticoagulants; Z79.4 Long term (current) use of insulin; Z79.899 Other long term (current) drug therapy; Z95.0 Presence of cardiac pacemaker; Z95.5 Presence of coronary angioplasty implant and graft; Z83.3 Family history of diabetes mellitus; Z82.49 Family history of ischemic heart disease and other diseases of the circulatory system
CPT/HCPCS: 36415; 71046; 71250; 80048; 80053; 81001; 83880; 84484; 85025; 85610; 85730; 90935; 93005; 94640; 94760; 96361; 96374; 99285

== ENCOUNTER 2019-03-30 18:52 | Inpatient (IN) | payer MEDICARE ==
--- NOTE | 2019-03-30 19:31 | ED ---
General Adult HPI - General Chief complaint: Chest Pain Stated complaint: Chest Pain Time Seen by Provider: 03/30/19 19:00 Source: patient, EMS, RN notes reviewed, old records reviewed Mode of arrival: EMS Limitations: no limitations - History of Present Illness Initial comments: 64-year-old male history of A. fib and CAD and COPD presenting with left a nterior chest pain. Worse with deep inspiration. He has some residual pain in between episodes. Present throughout the day today. He states he's had a heart catheterization within the past year and did have a stent placed. He is currently on anticoagulation with history of atrial fibrillation. He reports mild cough which is at baseline. He reports URI symptoms over the past one week. No vomiting. No abdominal pain. Pain is nonradiating. No diaphoresis. - Related Data Home Medications Medication Instructions Recorded Confirmed Insulin Detemir (Levemir) [Levemir] 30 unit SQ HS 08/18/14 03/28/19 Fluticasone Nasal [place] [Flonase 1 spray EA NOSTRIL BID 05/12/16 03/28/19 Nasal [place]] Pravastatin Sodium [Pravachol] 40 mg PO HS 12/06/17 03/28/19 Cholecalciferol [Vitamin D3 (25 3,000 unit PO PC-BRKFST 08/26/18 03/28/19 Mcg = 1000 Iu)] Isosorbide Mononitrate ER [Imdur] 30 mg PO DAILY 01/16/19 03/28/19 Pantoprazole [Protonix] 40 mg PO DAILY 01/16/19 03/28/19 INSULIN ASPART (NovoLOG) [NovoLOG See Protocol SQ TID-W/MEALS 02/12/19 03/28/19 (formulary)] Montelukast [Singulair] 10 mg PO HS 02/12/19 03/28/19 Clopidogrel [Plavix] 75 mg PO HS 02/15/19 03/28/19 Apixaban [Eliquis] 5 mg PO BID 03/28/19 03/28/19 Furosemide [Lasix] 40 mg PO DAILY 03/28/19 03/28/19 Loratadine [Claritin] 10 mg PO DAILY 03/28/19 03/28/19 Magnesium. 300 mg PO DAILY 03/28/19 03/28/19 Metoprolol Tartrate [Lopressor] 100 mg PO BID 03/28/19 03/28/19 Previous Rx's Medication Instructions Recorded hydrALAZINE HCL [Apresoline] 100 mg PO TID #90 tab 06/07/18 Nitroglycerin Sl Tabs [Nitrostat] 0.4 mg SUBLINGUAL Q5M PRN #25 tab 06/28/18 Diltiazem Oral [Cardizem*] 90 mg PO TID #90 tab 02/14/19 Allergies Allergy/AdvReac Type Severity Reaction Status Date / Time amoxicillin Allergy Anaphylaxis Verified 03/30/19 18:59 cephalexin monohydrate Allergy Rash/Hives Verified 03/30/19 18:59 [From Keflex] clindamycin Allergy Rash/Hives Verified 03/30/19 18:59 gluten Allergy Unknown Verified 03/30/19 18:59 Penicillins Allergy Rash/Hives Verified 03/30/19 18:59 Sulfa (Sulfonamide Allergy Anaphylaxis Verified 03/30/19 18:59 Antibiotics) sulfamethoxazole Allergy Anaphylaxis Verified 03/30/19 18:59 [From Bactrim] trimethoprim [From Bactrim] Allergy Anaphylaxis Verified 03/30/19 18:59 amlodipine AdvReac Swelling Verified 03/30/19 18:59 carvedilol AdvReac STOMACH Verified 03/30/19 18:59 CRAMPS Review of Systems ROS Statement: Those systems with pertinent positive or pertinent negative responses have been documented in the HPI. ROS Other: All systems not noted in ROS Statement are negative. Past Medical History Past Medical History: Atrial Fibrillation, Coronary Artery Disease (CAD), Chest Pain / Angina, Heart Failure, COPD, Diabetes Mellitus, GERD/Reflux, Hyperlipidemia, Hypertension, Liver Disease, Myocardial Infarction ([place]), Prostate Disorder, Renal Disease, Skin Disorder Additional Past Medical History / Comment(s): Neuropathy bilateral feet, stage III chronic kidney disease, chronic CHF, liver cirrhosis, BPH, DJD, herniated discs low back, chronic low back pain, varicose veins bilaterally, anemia, past asbestos exposure, celiac disease, dermatitis herpetiformis. Last Myocardial Infarction Date:: 06/2018 History of Any Multi-Drug Resistant Organisms: None Reported Past Surgical History: Cholecystectomy, Heart Catheterization With Stent, Pacemaker, Tonsillectomy Additional Past Surgical History / Comment(s): PCI with STENTS x 3, bilateral cataracts removed with lens implants, colonoscopy. Past Anesthesia/Blood Transfusion Reactions: No Reported Reaction Date of Last Stent Placement:: 2017 Type of Cardiac Device: Permanent Pacemaker Device Placement Date:: 02/02/19 Past Psychological History: No Psychological Hx Reported Smoking Status: Former smoker Past Alcohol Use History: None Reported Past Drug Use History: None Reported - Past Family History Mother Family Medical History: Diabetes Mellitus Father Family Medical History: Myocardial Infarction ([place]) Additional Family Medical History / Comment(s): Father had a [place] in his 70s. Brother(s) Family Medical History: Myocardial Infarction ([place]) Additional Family Medical History / Comment(s): Brother had a [place] in his 50s. General Exam Limitations: no limitations General appearance: alert, in no apparent distress Head exam: Present: atraumatic, normocephalic Eye exam: Present: normal appearance, PERRL ENT exam: Present: normal exam Neck exam: Present: normal inspection. Absent: tenderness, meningismus Respiratory exam: Present: normal lung sounds bilaterally. Absent: respiratory distress, wheezes, rhonchi Cardiovascular Exam: Present: regular rate, tachycardia GI/Abdominal exam: Present: soft. Absent: distended, tenderness, guarding, rebound Extremities exam: Present: normal inspection, normal capillary refill, pedal edema Neurological exam: Present: alert, oriented X3, CN II-XII intact. Absent: motor sensory deficit Psychiatric exam: Present: normal affect, normal mood Skin exam: Present: warm, dry, intact. Absent: cyanosis, diaphoretic Course Vital Signs 03/30/19 18:59 Temperature 97.4 F L Pulse Rate 88 Respiratory 15 Rate Blood Pressure 146/75 O2 Sat by Pulse 97 Oximetry - Reevaluation(s) Reevaluation #1: 03/30/19 19:31 Patient declines pain medication. He was given aspirin nitroglycerin by EMS prior to arrival. EKG Findings - EKG Comments: EKG Findings:: EKG: Atrial fibrillation rate 91, QRS duration 94, QTC 462, no ST segment elevation, there is T-wave inversion and ST segment depression in the l ateral precordial leads. This is new compared to previous EKG in January 2019. Medical Decision Making - Medical Decision Making 64-year-old male presenting with chest pain. Pain is described as atypical. However EKG does show some concerning changes compared to previous EKG obtained within the past one month. Patient has mild cytosis, stable hemoglobin. He has a creatinine at 1.70 which is baseline. Troponin is negative. BNP mildly elev ated 3400. Chest x-ray shows improved aeration compared to previous chest x- ray. Patient is scheduled for an ablation on Monday. He will be In the hospital overnight first-year cardiac enzymes, telemetry, cardiology consultation. Case is discussed with admitting physician. - Lab Data Result diagrams: 03/30/19 19:20 03/30/19 19:20 Lab Results 03/30/19 03/30/19 03/30/19 Range/Units 19:20 19:20 19:20 WBC 12.7 H (3.8-10.6) k/uL RBC 4.40 (4.30-5.90) m/uL Hgb 12.1 L (13.0-17.5) gm/dL Hct 39.4 (39.0-53.0) % MCV 89.6 (80.0-100.0) fL MCH 27.4 (25.0-35.0) pg MCHC 30.6 L (31.0-37.0) g/dL RDW 14.2 (11.5-15.5) % Plt Count 263 (150-450) k/uL Neutrophils % 82 % Lymphocytes % 10 % Monocytes % 5 % Eosinophils % 1 % Basophils % 0 % Neutrophils # 10.4 H (1.3-7.7) k/uL Lymphocytes # 1.3 (1.0-4.8) k/uL Monocytes # 0.7 (0-1.0) k/uL Eosinophils # 0.1 (0-0.7) k/uL Basophils # 0.0 (0-0.2) k/uL Hypochromasia Slight PT (9.0-12.0) sec INR (<1.2) APTT (22.0-30.0) sec Sodium 142 (137-145) mmol/L Potassium 4.1 (3.5-5.1) mmol/L Chloride 106 (98-107) mmol/L Carbon Dioxide 29 (22-30) mmol/L Anion Gap 7 mmol/L BUN 48 H (9-20) mg/dL Creatinine 1.78 H (0.66-1.25) mg/dL Est GFR (CKD-EPI)AfAm 46 (>60 ml/min/1.73 sqM) Est GFR (CKD-EPI)NonAf 40 (>60 ml/min/1.73 sqM) Glucose 150 H (74-99) mg/dL Calcium 9.3 (8.4-10.2) mg/dL Magnesium 1.6 (1.6-2.3) mg/dL Total Bilirubin 0.3 (0.2-1.3) mg/dL AST 26 (17-59) U/L ALT 36 (21-72) U/L Alkaline Phosphatase 88 (38-126) U/L Troponin I (0.000-0.034) ng/mL NT-Pro-B Natriuret Pep 3410 pg/mL Total Protein 6.4 (6.3-8.2) g/dL Albumin 3.7 (3.5-5.0) g/dL Lipase 306 H (23-300) U/L 03/30/19 03/30/19 Range/Units 19:20 19:20 WBC (3.8-10.6) k/uL RBC (4.30-5.90) m/uL Hgb (13.0-17.5) gm/dL Hct (39.0-53.0) % MCV (80.0-100.0) fL MCH (25.0-35.0) pg MCHC (31.0-37.0) g/dL RDW (11.5-15.5) % Plt Count (150-450) k/uL Neutrophils % % Lymphocytes % % Monocytes % % Eosinophils % % Basophils % % Neutrophils # (1.3-7.7) k/uL Lymphocytes # (1.0-4.8) k/uL Monocytes # (0-1.0) k/uL Eosinophils # (0-0.7) k/uL Basophils # (0-0.2) k/uL Hypochromasia PT 10.6 (9.0-12.0) sec INR 1.0 (<1.2) APTT 24.6 (22.0-30.0) sec Sodium (137-145) mmol/L Potassium (3.5-5.1) mmol/L Chloride (98-107) mmol/L Carbon Dioxide (22-30) mmol/L Anion Gap mmol/L BUN (9-20) mg/dL Creatinine (0.66-1.25) mg/dL Est GFR (CKD-EPI)AfAm (>60 ml/min/1.73 sqM) Est GFR (CKD-EPI)NonAf (>60 ml/min/1.73 sqM) Glucose (74-99) mg/dL Calcium (8.4-10.2) mg/dL Magnesium (1.6-2.3) mg/dL Total Bilirubin (0.2-1.3) mg/dL AST (17-59) U/L ALT (21-72) U/L Alkaline Phosphatase (38-126) U/L Troponin I 0.018 (0.000-0.034) ng/mL NT-Pro-B Natriuret Pep pg/mL Total Protein (6.3-8.2) g/dL Albumin (3.5-5.0) g/dL Lipase (23-300) U/L Disposition Clinical Impression: Atrial fibrillation, Chest pain, Renal insufficiency Disposition: ADMITTED IP TO THIS [facility] Condition: Stable Is patient prescribed a controlled substance at d/c from ED?: No Referrals: None,Stated [Primary Care Provider] - 1-2 days Decision to Admit Reason: Admit from EC Decision Date: 03/30/19 Decision Time: 20:41
[2019-03-30 19:54] LABS: Basophils % (A) 0 %; Eosinophils # (A) 0.1 k/uL (0-0.7); Eosinophils % (A) 1 %; HCT 39.4 % (39.0-53.0); HGB 12.1 gm/dL (13.0-17.5); Hypochromasia Slight; Lymphocytes # (A) 1.3 k/uL (1.0-4.8); Lymphocytes % (A) 10 %; MCH 27.4 pg (25.0-35.0); MCHC 30.6 g/dL (31.0-37.0); MCV 89.6 fL (80.0-100.0); Mean Platelet Volume 8.3; Monocytes # (A) 0.7 k/uL (0-1.0); Monocytes % (A) 5 %; Neutrophils # (A) 10.4 k/uL (1.3-7.7); Neutrophils % (A) 82 %; Platelet Count 263 k/uL (150-450); RDW 14.2 % (11.5-15.5); WBC 12.7 k/uL (3.8-10.6)
--- NOTE | 2019-03-30 19:59 | XR ---
EXAMINATION TYPE: XR chest 2V DATE OF EXAM: 03/30/2019 COMPARISON: 02/15/2019 HISTORY: Chest pain TECHNIQUE: Frontal and lateral views of the chest are obtained. FINDINGS: There is elevated right diaphragm. There is some increased density at the right posterior lung base. There is slight blunting of right costophrenic angle. Heart size is normal. There is no he art failure. There is a left axillary pacemaker. Bony thorax is intact. IMPRESSION: There is some pleural reaction and atelectasis at the right lung base that is improved s lightly compared to last exam. No heart failure. There is clearing of mild pulmonary congestion mindi red to old exam. There is clearing of left pleural fluid compared to old exam.
[2019-03-30 20:09] LABS: Albumin 3.7 g/dL (3.5-5.0); Calcium 9.3 mg/dL (8.4-10.2); Magnesium 1.6 mg/dL (1.6-2.3); Potassium 4.1 mmol/L (3.5-5.1); Total Bilirubin 0.3 mg/dL (0.2-1.3); Total Protein 6.4 g/dL (6.3-8.2)
[2019-03-30 20:11] LABS: Partial Thromboplastin Time 24.6 sec (22.0-30.0); Prothrombin Time 10.6 sec (9.0-12.0)
[2019-03-30] MEDS ORDERED: MORPHINE SULFATE 4 MG/ML SYRINGE IV PRN (20:36)
[2019-03-30] MEDS ORDERED: NALOXONE 0.4 MG/ML 1 ML VIAL IV PRN (20:36)
[2019-03-30] MEDS ORDERED: NITROGLYCERIN SL TABS 0.4 MG TAB SUBLINGUAL PRN (20:38)
[2019-03-30 23:35] VITALS: BMI 27.1
[2019-03-30] MEDS: INSULIN ASPART (NovoLOG) 100 UNIT/ML VIAL SQ SCH (23:45)
[2019-03-30] MEDS: PRAVASTATIN SODIUM 40 MG TAB PO SCH (23:46)
[2019-03-30] MEDS: METOPROLOL TARTRATE 50 MG TAB PO SCH ×2 (23:46→23:54)
[2019-03-30] MEDS: DILTIAZEM ORAL 30 MG TAB PO SCH ×2 (23:46→23:55)
[2019-03-30] MEDS: CLOPIDOGREL 75 MG TAB PO SCH (23:46)
[2019-03-30] MEDS: hydrALAZINE HCL 50 MG TAB PO SCH (23:46)
[2019-03-30] MEDS: MONTELUKAST 10 MG TAB PO SCH (23:48)
[2019-03-30 23:51] LABS: Glucose,Whole Blood 288 mg/dL (75-99)
[2019-03-30] MEDS: APIXABAN 5 MG TAB PO SCH (23:54)
[2019-03-31 06:10] LABS: Glucose,Whole Blood 214 mg/dL (75-99)
[2019-03-31 07:02] LABS: Calcium 8.8 mg/dL (8.4-10.2); Magnesium 1.7 mg/dL (1.6-2.3); Potassium 4.5 mmol/L (3.5-5.1)
[2019-03-31 07:03] LABS: Basophils % (A) 1 %; Eosinophils # (A) 0.1 k/uL (0-0.7); Eosinophils % (A) 2 %; HCT 37.3 % (39.0-53.0); HGB 11.7 gm/dL (13.0-17.5); Hypochromasia Moderate; Lymphocytes # (A) 1.1 k/uL (1.0-4.8); Lymphocytes % (A) 18 %; MCH 28.2 pg (25.0-35.0); MCHC 31.3 g/dL (31.0-37.0); MCV 89.9 fL (80.0-100.0); Mean Platelet Volume 8.3; Monocytes # (A) 0.5 k/uL (0-1.0); Monocytes % (A) 9 %; Neutrophils # (A) 3.9 k/uL (1.3-7.7); Neutrophils % (A) 67 %; Platelet Count 223 k/uL (150-450); RBC 4.14 m/uL (4.30-5.90); RDW 14.4 % (11.5-15.5); WBC 5.8 k/uL (3.8-10.6)
[2019-03-31 08:53] LABS: Glucose,Whole Blood 203 mg/dL (75-99)
--- NOTE | 2019-03-31 09:18 | P.CRDCN ---
History of Present Illness Consult date: 03/31/19 Chief complaint: Chest discomfort History of present illness: This is a pleasant 64-year-old gentleman who sees Dr. Morgan in the office as an outpatient with a past medical history significant for chronic persistent atrial fibrillation on oral anticoagulation, coronary artery disease and status post coronary stenting, hypertension, and dyslipidemia, and status post permanent pacemaker implantation, presented to the emergency room complaining of chest discomfort. The patient described the discomfort on the left upper chest, as a sharp kind of discomfort, worse with cough and deep breath, and the stent seems to be exertional. The discomfort does not radiate to the arm or neck or shoulders and is not associated with any symptoms like shortness of breath, sweating, dizziness or lightheadedness or syncope. The patient is a scheduled t o undergo atrial fibrillation ablation by Dr. Fitch tomorrow. The workup this time came in to be unremarkable. The EKG showed chronic atrial fibrillation. The cardiac enzymes were checked and came in to be unremarkable. Currently the patient is chest pain-free. He underwent stenting of the diagonal of LAD in June 2018. In August 2018 he underwent stress test and that came in to be unremarkable. The chest x-ray today did not show any acute abnormalities. Past Medical History Past Medical History: Atrial Fibrillation, Coronary Artery Disease (CAD), Chest Pain / Angina, Heart Failure, COPD, Diabetes Mellitus, GERD/Reflux, Hyperlipidemia, Hypertension, Liver Disease, Myocardial Infarction ([place]), Prostate Disorder, Renal Disease, Skin Disorder Additional Past Medical History / Comment(s): Neuropathy bilateral feet, stage III chronic kidney disease, chronic CHF, liver cirrhosis, BPH, DJD, herniated discs low back, chronic low back pain, varicose veins bilaterally, anemia, past asbestos exposure, celiac disease, dermatitis herpetiformis. Last Myocardial Infarction Date:: 06/2018 History of Any Multi-Drug Resistant Organisms: None Reported Past Surgical History: Cholecystectomy, Heart Catheterization With Stent, Pacemaker, Tonsillectomy Additional Past Surgical History / Comment(s): PCI with STENTS x 3, bilateral cataracts removed with lens implants, colonoscopy. Past Anesthesia/Blood Transfusion Reactions: No Reported Reaction Date of Last Stent Placement:: 2017 Type of Cardiac Device: Permanent Pacemaker Device Placement Date:: 02/02/19 Past Psychological History: No Psychological Hx Reported Additional Psychological History / Comment(s): lives at home with his , worked for [employer], no service. pt is independant,no cane or walker and no outside services. Smoking Status: Former smoker Past Alcohol Use History: None Reported Additional Past Alcohol Use History / Comment(s): Started smoking in 1967, a half pack a day. Quit smoking 3 weeks ago. Past Drug Use History: None Reported - Past Family History Mother Family Medical History: Diabetes Mellitus Father Family Medical History: Myocardial Infarction ([place]) Additional Family Medical History / Comment(s): Father had a [place] in his 70s. Brother(s) Family Medical History: Myocardial Infarction ([place]) Additional Family Medical History / Comment(s): Brother had a [place] in his 50s. Medications and Allergies Home Medications Medication Instructions Recorded Confirmed Type Insulin Detemir (Levemir) [Levemir] 30 unit SQ HS 08/18/14 03/30/19 History Fluticasone Nasal [place] [Flonase 1 spray EA NOSTRIL BID 05/12/16 03/30/19 History Nasal [place]] Pravastatin Sodium [Pravachol] 40 mg PO HS 12/06/17 03/30/19 History hydrALAZINE HCL [Apresoline] 100 mg PO TID #90 tab 06/07/18 03/30/19 Rx Nitroglycerin Sl Tabs [Nitrostat] 0.4 mg SUBLINGUAL Q5M PRN #25 tab 06/28/18 03/30/19 Rx Cholecalciferol [Vitamin D3 (25 3,000 unit PO PC-BRKFST 08/26/18 03/30/19 Hi story Mcg = 1000 Iu)] Isosorbide Mononitrate ER [Imdur] 30 mg PO DAILY 01/16/19 03/30/19 History Pantoprazole [Protonix] 40 mg PO DAILY 01/16/19 03/30/19 History INSULIN ASPART (NovoLOG) [NovoLOG See Protocol SQ TID-W/MEALS 02/12/19 03/30/19 History (formulary)] Montelukast [Singulair] 10 mg PO HS 02/12/19 03/30/19 History Diltiazem Oral [Cardizem*] 90 mg PO TID #90 tab 02/14/19 03/30/19 Rx Clopidogrel [Plavix] 75 mg PO HS 02/15/19 03/30/19 History Apixaban [Eliquis] 5 mg PO BID 03/28/19 03/30/19 History Furosemide [Lasix] 40 mg PO DAILY 03/28/19 03/30/19 History Loratadine [Claritin] 10 mg PO DAILY 03/28/19 03/30/19 History Magnesium. 300 mg PO DAILY 03/28/19 03/30/19 History Metoprolol Tartrate [Lopressor] 100 mg PO BID 03/28/19 03/30/19 History Allergies Allergy/AdvReac Type Severity Reaction Status Date / Time amoxicillin Allergy Anaphylaxis Verified 03/30/19 21:31 cephalexin monohydrate Allergy Rash/Hives Verified 03/30/19 21:31 [From Keflex] clindamycin Allergy Rash/Hives Verified 03/30/19 21:31 gluten Allergy Unknown Verified 03/30/19 21:31 Penicillins Allergy Rash/Hives Verified 03/30/19 21:31 Sulfa (Sulfonamide Allergy Anaphylaxis Verified 03/30/19 21:31 Antibiotics) sulfamethoxazole Allergy Anaphylaxis Verified 03/30/19 21:31 [From Bactrim] trimethoprim [From Bactrim] Allergy Anaphylaxis Verified 03/30/19 21:31 amlodipine AdvReac Swelling Verified 03/30/19 21:31 carvedilol AdvReac STOMACH Verified 03/30/19 21:31 CRAMPS Physical Exam Vitals: Vital Signs Temp Pulse Pulse Resp BP BP Pulse Ox 03/31/19 04:00 97.5 F L 88 18 113/68 98 03/31/19 00:00 97.1 F L 75 15 142/73 95 03/30/19 22:30 71 18 140/76 96 03/30/19 22:00 71 16 100/65 95 03/30/19 20:30 94 16 147/83 97 03/30/19 19:30 80 18 149/82 98 03/30/19 18:59 97.4 F L 88 15 146/75 97 Intake and Output 03/30/19 03/31/19 03/31/19 22:59 06:59 14:59 Intake Total 480 20 Output Total 300 Balance 480 20 -300 Intake: IV 20 Invasive Line 1 20 Oral 480 Output: Urine 300 Other: Voiding Method Toilet # Voids 1 Weight 84.504 kg 83.3 kg - Constitutional General appearance: no acute distress - Respiratory Respiratory: bilateral: CTA - Cardiovascular Rhythm: irregularly irregular Heart sounds: normal: S1, S2 Abnormal Heart Sounds: systolic murmur Results 03/31/19 06:25 03/31/19 06:25 Cardiac Enzymes 03/30/19 03/30/19 03/31/19 Range/Units 19:20 19:20 01:57 AST 26 (17-59) U/L Troponin I 0.018 0.022 (0.000-0.034) ng/mL 03/31/19 Range/Units 06:25 AST (17-59) U/L Troponin I 0.022 (0.000-0.034) ng/mL Coagulation 03/30/19 Range/Units 19:20 PT 10.6 (9.0-12.0) sec APTT 24.6 (22.0-30.0) sec CBC 03/30/19 03/31/19 Range/Units 19:20 06:25 WBC 12.7 H 5.8 (3.8-10.6) k/uL RBC 4.40 4.14 L (4.30-5.90) m/uL Hgb 12.1 L 11.7 L (13.0-17.5) gm/dL Hct 39.4 37.3 L (39.0-53.0) % Plt Count 263 223 (150-450) k/uL Comprehensive Metabolic Panel 03/30/19 03/31/19 Range/Units 19:20 06:25 Sodium 142 141 (137-145) mmol/L Potassium 4.1 4.5 (3.5-5.1) mmol/L Chloride 106 106 (98-107) mmol/L Carbon Dioxide 29 30 (22-30) mmol/L BUN 48 H 43 H (9-20) mg/dL Creatinine 1.78 H 1.67 H (0.66-1.25) mg/dL Glucose 150 H 198 H (74-99) mg/dL Calcium 9.3 8.8 (8.4-10.2) mg/dL AST 26 (17-59) U/L ALT 36 (21-72) U/L Alkaline Phosphatase 88 (38-126) U/L Total Protein 6.4 (6.3-8.2) g/dL Albumin 3.7 (3.5-5.0) g/dL Current Medications Generic Name Dose Route Start Last Admin Trade Name Freq PRN Reason Stop Dose Admin Acetaminophen 650 mg 03/30/19 20:36 Tylenol Tab PO Q6HR PRN Mild Pain or Fever > 100.5 Apixaban 5 mg 03/30/19 21:00 03/30/19 23:54 Eliquis PO Not Given BID [facility] Clopidogrel Bisulfate 75 mg 03/30/19 21:00 03/30/19 23:46 Plavix PO 75 mg HS [facility] Administration Diltiazem HCl 90 mg 03/30/19 22:00 03/30/19 23:55 Cardizem Oral PO Not Given TID [facility] Furosemide 40 mg 03/31/19 09:00 Lasix PO DAILY [facility] Hydralazine HCl 100 mg 03/30/19 22:00 03/30/19 23:46 Apresoline PO 100 mg TID [facility] Administration Insulin Aspart 0 unit 03/31/19 07:30 03/30/19 23:45 Novolog SQ 5 unit ACHS [facility] Administration Protocol Isosorbide Mononitrate 30 mg 03/31/19 09:00 Imdur PO DAILY [facility] Loratadine 10 mg 03/31/19 09:00 Claritin PO DAILY [facility] Metoprolol Tartrate 100 mg 03/30/19 21:00 03/30/19 23:54 Lopressor PO Not Given BID [facility] Montelukast Sodium 10 mg 03/30/19 23:15 03/30/19 23:48 Singulair PO 10 mg HS [facility] Administration Morphine Sulfate 4 mg 03/30/19 20:36 Morphine Sulfate (Inj) IV Q4HR PRN Severe Pain Naloxone HCl 0.2 mg 03/30/19 20:36 Narcan IV Q2M PRN Opioid Reversal Nitroglycerin 0.4 mg 03/30/19 20:38 Nitrostat SUBLINGUAL Q5M PRN Chest Pain Pantoprazole Sodium 40 mg 03/31/19 09:00 Protonix PO DAILY [facility] Pravastatin Sodium 40 mg 03/30/19 21:00 03/30/19 23:46 Pravachol PO 40 mg HS [facility] Administration Intake and Output 03/30/19 03/31/19 03/31/19 22:59 06:59 14:59 Intake Total 480 20 Output Total 300 Balance 480 20 -300 Intake: IV 20 Invasive Line 1 20 Oral 480 Output: Urine 300 Other: Voiding Method Toilet # Voids 1 Weight 84.504 kg 83.3 kg 03/31/19 06:25 03/31/19 06:25 Assessment and Plan Assessment: Assessment #1 atypical chest discomfort #2 chronic persistent atrial fibrillation #3 status post permanent pacemaker implantation #4 hypertension #5 dyslipidemia Plan #1 the patient was ruled out for acute coronary event #2 no need for any workup regarding the coronary artery disease, giving the nature of the pain which is atypical/pleuritic #3 he is going to undergo atrial fibrillation ablation tomorrow #4 follow-up with the patient Thank you for allowing us participate in his care
[2019-03-31] MEDS: INSULIN ASPART (NovoLOG) 100 UNIT/ML VIAL SQ SCH ×5 (09:37→22:13)
[2019-03-31] MEDS: LORATADINE 10 MG TAB PO SCH (09:38)
[2019-03-31] MEDS: ISOSORBIDE MONONITRATE ER 30 MG TAB.ER.24H PO SCH (09:38)
[2019-03-31] MEDS: hydrALAZINE HCL 50 MG TAB PO SCH ×3 (09:38→22:12)
[2019-03-31] MEDS: FUROSEMIDE 40 MG TAB PO SCH (09:38)
[2019-03-31] MEDS: DILTIAZEM ORAL 30 MG TAB PO SCH ×3 (09:38→22:12)
[2019-03-31] MEDS: APIXABAN 5 MG TAB PO SCH ×2 (09:38→22:12)
[2019-03-31] MEDS: METOPROLOL TARTRATE 50 MG TAB PO SCH ×2 (09:38→22:11)
[2019-03-31] MEDS: PANTOPRAZOLE 40 MG TABLET PO SCH (09:38)
[2019-03-31 11:13] LABS: Glucose,Whole Blood 280 mg/dL (75-99)
[2019-03-31] MEDS ORDERED: INSULIN DETEMIR (LEVEMIR) 100 UNIT/ML SYR SQ SCH (13:31)
[2019-03-31 14:21] LABS: Glucose,Whole Blood 249 mg/dL (75-99)
--- NOTE | 2019-03-31 14:29 | P.HPIM ---
History of Present Illness H&P Date: 03/31/19 Chief Complaint: Chest discomfort 64-year-old gentleman who sees Dr. Morgan in the office as an outpatient with a past medical history significant for chronic persistent atrial fibrillation on oral anticoagulation, coronary artery disease and status post coronary stenting, hypertension, and dyslipidemia, and status post permanent pacemaker implantation, presented to the emergency room complaining of chest discomfort. The patient described the discomfort on the left upper chest, as a sharp kind of discomfort, worse with cough and deep breath, and the stent seems to be exertional. The discomfort does not radiate to the arm or neck or shoulders and is not associated with any symptoms like shortness of breath, sweating, dizziness or lightheadedness or syncope. The patient is a scheduled to undergo atrial fibrillation ablation by Dr. Fitch tomorrow. The workup this time came in to be unremarkable. The EKG showed chronic atrial fibrillation. The cardiac enzymes were checked and came in to be unremarkable. Currently the patient is chest pain-free. He underwent stenting of the diagonal of LAD in June 2018. In August 2018 he underwent stress test and that came in to be unremarkable. The chest x-ray today did not show any acute abnormalities. Review of Systems Constitutional: Denies chills, Denies fever Eyes: denies blurred vision Ears, nose, mouth and throat: Denies bleeding gums Cardiovascular: Reports chest pain, Denies lightheadedness, Denies shortness of breath Respiratory: Denies cough with sputum Gastrointestinal: Denies abdominal pain, Denies nausea, Denies vomiting Genitourinary: Denies dysuria, Denies hematuria Neurological: Denies confusion, Denies double vision Past Medical History Past Medical History: Atrial Fibrillation, Coronary Artery Disease (CAD), Chest Pain / Angina, Heart Failure, COPD, Diabetes Mellitus, GERD/Reflux, Hyperlipidemia, Hypertension, Liver Disease, Myocardial Infarction (OR), Prostate Disorder, Renal Disease, Skin Disorder Additional Past Medical History / Comment(s): Neuropathy bilateral feet, stage III chronic kidney disease, chronic CHF, liver cirrhosis, BPH, DJD, herniated discs low back, chronic low back pain, varicose veins bilaterally, anemia, past asbestos exposure, celiac disease, dermatitis herpetiformis. Last Myocardial Infarction Date:: 06/2018 History of Any Multi-Drug Resistant Organisms: None Reported Past Surgical History: Cholecystectomy, Heart Catheterization With Stent, Pacemaker, Tonsillectomy Additional Past Surgical History / Comment(s): PCI with STENTS x 3, bilateral cataracts removed with lens implants, colonoscopy. Past Anesthesia/Blood Transfusion Reactions: No Reported Reaction Date of Last Stent Placement:: 2017 Type of Cardiac Device: Permanent Pacemaker Device Placement Date:: 02/02/19 Past Psychological History: No Psychological Hx Reported Additional Psychological History / Comment(s): lives at home with his , worked for [employer], no service. pt is independant,no cane or walker and no outside services. Smoking Status: Former smoker Past Alcohol Use History: None Reported Additional Past Alcohol Use History / Comment(s): Started smoking in 1967, a half pack a day. Quit smoking 3 weeks ago. Past Drug Use History: None Reported - Past Family History Mother Family Medical History: Diabetes Mellitus Father Family Medical History: Myocardial Infarction (OR) Additional Family Medical History / Comment(s): Father had a OR in his 70s. Brother(s) Family Medical History: Myocardial Infarction (OR) Additional Family Medical History / Comment(s): Brother had a OR in his 50s. Medications and Allergies Home Medications Medication Instructions Recorded Confirmed Type Insulin Detemir (Levemir) [Levemir] 30 unit SQ HS 08/18/14 03/30/19 History Fluticasone Nasal [place] [Flonase 1 spray EA NOSTRIL BID 05/12/16 03/30/19 History Nasal [place]] Pravastatin Sodium [Pravachol] 40 mg PO HS 12/06/17 03/30/19 History hydrALAZINE HCL [Apresoline] 100 mg PO TID #90 tab 06/07/18 03/30/19 Rx Nitroglycerin Sl Tabs [Nitrostat] 0.4 mg SUBLINGUAL Q5M PRN #25 tab 06/28/18 03/30/19 Rx Cholecalciferol [Vitamin D3 (25 3,000 unit PO PC-BRKFST 08/26/18 03/30/19 History Mcg = 1000 Iu)] Isosorbide Mononitrate ER [Imdur] 30 mg PO DAILY 01/16/19 03/30/19 History Pantoprazole [Protonix] 40 mg PO DAILY 01/16/19 03/30/19 History INSULIN ASPART (NovoLOG) [NovoLOG See Protocol SQ TID-W/MEALS 02/12/19 03/30/19 History (formulary)] Montelukast [Singulair] 10 mg PO HS 02/12/19 03/30/19 History Diltiazem Oral [Cardizem*] 90 mg PO TID #90 tab 02/14/19 03/30/19 Rx Clopidogrel [Plavix] 75 mg PO HS 02/15/19 03/30/19 History Apixaban [Eliquis] 5 mg PO BID 03/28/19 03/30/19 History Furosemide [Lasix] 40 mg PO DAILY 03/28/19 03/30/19 History Loratadine [Claritin] 10 mg PO DAILY 03/28/19 03/30/19 History Magnesium. 300 mg PO DAILY 03/28/19 03/30/19 History Metoprolol Tartrate [Lopressor] 100 mg PO BID 03/28/19 03/30/19 History Allergies Allergy/AdvReac Type Severity Reaction Status Date / Time amoxicillin Allergy Anaphylaxis Verified 03/30/19 21:31 cephalexin monohydrate Allergy Rash/Hives Verified 03/30/19 21:31 [From Keflex] clindamycin Allergy Rash/Hives Verified 03/30/19 21:31 gluten Allergy Unknown Verified 03/30/19 21:31 Penicillins Allergy Rash/Hives Verified 03/30/19 21:31 Sulfa (Sulfonamide Allergy Anaphylaxis Verified 03/30/19 21:31 Antibiotics) sulfamethoxazole Allergy Anaphylaxis Verified 03/30/19 21:31 [From Bactrim] trimethoprim [From Bactrim] Allergy Anaphylaxis Verified 03/30/19 21:31 amlodipine AdvReac Swelling Verified 03/30/19 21:31 carvedilol AdvReac STOMACH Verified 03/30/19 21:31 CRAMPS Physical Exam Vitals: Vital Signs Temp Pulse Pulse Resp BP BP Pulse Ox 03/31/19 08:00 98.1 F 88 18 148/87 97 03/31/19 04:00 97.5 F L 88 18 113/68 98 03/31/19 00:00 97.1 F L 75 15 142/73 95 03/30/19 22:30 71 18 140/76 96 03/30/19 22:00 71 16 100/65 95 03/30/19 20:30 94 16 147/83 97 03/30/19 19:30 80 18 149/82 98 03/30/19 18:59 97.4 F L 88 15 146/75 97 Intake and Output 03/30/19 03/31/19 03/31/19 22:59 06:59 14:59 Intake Total 480 20 Output Total 300 Balance 480 20 -300 Intake: IV 20 Invasive Line 1 20 Oral 480 Output: Urine 300 Other: Voiding Method Toilet # Voids 1 Weight 84.504 kg 83.3 kg PHYSICAL EXAMINATION: GENERAL: The patient is alert and oriented x3, not in any acute distress. Well developed, well nourished. HEENT: Pupils are round and equally reacting to light. EOMI. No scleral icterus. No conjunctival pallor. Normocephalic, atraumatic. No pharyngeal erythema. No thyromegaly. CARDIOVASCULAR: S1 and S2 present. No murmurs, rubs, or gallops. PULMONARY: Chest is clear to auscultation, no wheezing or crackles. ABDOMEN: Soft, nontender, nondistended, normoactive bowel sounds. No palpable organomegaly. MUSCULOSKELETAL: No joint swelling or deformity. EXTREMITIES: No cyanosis, clubbing, or pedal edema. NEUROLOGICAL: Gross neurological examination did not reveal any focal deficits. SKIN: No rashes. Results CBC & Chem 7: 03/31/19 06:25 03/31/19 06:25 Labs: Abnormal Lab Results - Last 24 Hours (Table) 03/30/19 03/30/19 03/30/19 Range/Units 19:20 19:20 23:38 WBC 12.7 H (3.8-10.6) k/uL RBC (4.30-5.90) m/uL Hgb 12.1 L (13.0-17.5) gm/dL Hct (39.0-53.0) % MCHC 30.6 L (31.0-37.0) g/dL Neutrophils # 10.4 H (1.3-7.7) k/uL BUN 48 H (9-20) mg/dL Creatinine 1.78 H (0.66-1.25) mg/dL Glucose 150 H (74-99) mg/dL POC Glucose (mg/dL) 288 H (75-99) mg/dL Lipase 306 H (23-300) U/L 03/31/19 03/31/19 03/31/19 Range/Units 06:07 06:25 06:25 WBC (3.8-10.6) k/uL RBC 4.14 L (4.30-5.90) m/uL Hgb 11.7 L (13.0-17.5) gm/dL Hct 37.3 L (39.0-53.0) % MCHC (31.0-37.0) g/dL Neutrophils # (1.3-7.7) k/uL BUN 43 H (9-20) mg/dL Creatinine 1.67 H (0.66-1.25) mg/dL Glucose 198 H (74-99) mg/dL POC Glucose (mg/dL) 214 H (75-99) mg/dL Lipase (23-300) U/L 03/31/19 03/31/19 Range/Units 08:51 11:12 WBC (3.8-10.6) k/uL RBC (4.30-5.90) m/uL Hgb (13.0-17.5) gm/dL Hct (39.0-53.0) % MCHC (31.0-37.0) g/dL Neutrophils # (1.3-7.7) k/uL BUN (9-20) mg/dL Creatinine (0.66-1.25) mg/dL Glucose (74-99) mg/dL POC Glucose (mg/dL) 203 H 280 H (75-99) mg/dL Lipase (23-300) U/L Thrombosis Risk Factor Assmnt - Choose All That Apply Any of the Below Risk Factors Present?: No Assessment and Plan Assessment: 1. Chest pain rule out acute coronary syndrome - We will monitor EKG and trend troponin; consult cardiology for further recommendations - Continue with Imdur 30 mg daily and use sublingual nitroglycerin when necessary for chest pain 2. Renal insufficiency - We will monitor strict IMMANUEL's, daily weights and renal function with el ectrolytes; avoid hypotension and nephrotoxins 3. Atrial fibrillation; rate controlled with Cardizem 90 mg 3 times a day; anticoagulation therapy with Eliquis 5 milligrams twice a day; for ambulation tomorrow 4. Hypertension; stable on home dose of Cardizem 90 mg 3 times a day with Imdur 30 mg daily and Lopressor 100 mg twice a day 5. Hyperlipidemia; Pravachol 40 mg by mouth daily at bedtime 6. Asthma; not in exacerbation; Singulair 10 mg by mouth daily at bedtime 7. Diabetes mellitus; Accu-Cheks every before meals and at bedtime with insulin sliding scale DVT prophylaxis; systemic anticoagulation CODE STATUS; full code Time with Patient: Greater than 30
[2019-03-31 16:26] LABS: Glucose,Whole Blood 174 mg/dL (75-99)
[2019-03-31] MEDS ORDERED: FLUTICASONE 50MCG/SPRAY NASAL 16GM EA NOSTRIL PRN (18:29)
[2019-03-31 19:51] LABS: Glucose,Whole Blood 149 mg/dL (75-99)
[2019-03-31] MEDS: MONTELUKAST 10 MG TAB PO SCH (22:11)
[2019-03-31] MEDS: CLOPIDOGREL 75 MG TAB PO SCH (22:11)
[2019-03-31] MEDS: PRAVASTATIN SODIUM 40 MG TAB PO SCH (22:12)
[2019-04-01 06:01] LABS: Glucose,Whole Blood 176 mg/dL (75-99)
[2019-04-01] MEDS: MAGNESIUM OXIDE 400 MG TAB PO SCH (06:09)
[2019-04-01] MEDS: METOPROLOL TARTRATE 50 MG TAB PO SCH ×2 (06:10→23:34)
[2019-04-01] MEDS: PANTOPRAZOLE 40 MG TABLET PO SCH (06:10)
[2019-04-01] MEDS: DILTIAZEM ORAL 30 MG TAB PO SCH ×3 (06:10→23:35)
[2019-04-01] MEDS: hydrALAZINE HCL 50 MG TAB PO SCH ×3 (06:10→23:36)
[2019-04-01] MEDS: ISOSORBIDE MONONITRATE ER 30 MG TAB.ER.24H PO SCH (06:11)
[2019-04-01] MEDS: APIXABAN 5 MG TAB PO SCH ×2 (06:11→23:36)
[2019-04-01] MEDS: INSULIN ASPART (NovoLOG) 100 UNIT/ML VIAL SQ SCH ×3 (06:11→18:58)
[2019-04-01 06:45] LABS: Basophils % (A) 0 %; Eosinophils # (A) 0.1 k/uL (0-0.7); Eosinophils % (A) 1 %; HCT 38.1 % (39.0-53.0); HGB 11.8 gm/dL (13.0-17.5); Hypochromasia Slight; Lymphocytes # (A) 1.1 k/uL (1.0-4.8); Lymphocytes % (A) 15 %; MCH 27.7 pg (25.0-35.0); MCV 89.2 fL (80.0-100.0); Mean Platelet Volume 8.2; Monocytes # (A) 0.5 k/uL (0-1.0); Monocytes % (A) 6 %; Neutrophils # (A) 5.4 k/uL (1.3-7.7); Neutrophils % (A) 75 %; Platelet Count 249 k/uL (150-450); RBC 4.27 m/uL (4.30-5.90); RDW 14.4 % (11.5-15.5); WBC 7.2 k/uL (3.8-10.6)
[2019-04-01 06:54] LABS: Calcium 9.1 mg/dL (8.4-10.2); Potassium 4.9 mmol/L (3.5-5.1)
[2019-04-01] MEDS: LORATADINE 10 MG TAB PO SCH (08:41)
[2019-04-01] MEDS: FUROSEMIDE 40 MG TAB PO SCH (08:41)
[2019-04-01] MEDS ORDERED: VANCOMYCIN 1,500 MG in SODIUM CHLORIDE 0.9% 250 ML IVPB ONE (09:30)
[2019-04-01] MEDS ORDERED: LIDOCAINE 1% INJ 10MG/ML (20 ML MDV) ONE ×2 (11:09→11:40)
[2019-04-01] MEDS ORDERED: HEPARIN SODIUM 1,000 UN/ML (10ML VL) ONE (11:10)
[2019-04-01] MEDS ORDERED: MIDAZOLAM 2 MG/2 ML VIAL ONE (11:40)
[2019-04-01] MEDS ORDERED: PROPOFOL 10 MG/ML 20 ML VIAL IV ONE (11:40)
[2019-04-01] MEDS ORDERED: PHENYLEPHRINE-0.9% NACL SYG 1 MG/10 ML SYRINGE ONE (11:40)
[2019-04-01] MEDS ORDERED: SUCCINYLCHOLINE CHLORIDE 100 MG/5 ML SYR IV ONE (11:40)
[2019-04-01] MEDS ORDERED: HEPARIN SODIUM,PORCINE 5,000 UNIT/ML 1 ML VIAL ONE (11:40)
[2019-04-01] MEDS ORDERED: HEPARIN SODIUM,PORCINE 10,000 UNIT/ML 1 ML VIAL ONE (11:40)
[2019-04-01] MEDS ORDERED: fentaNYL (PF) 50 MCG/ML 2 ML AMP ONE (11:40)
[2019-04-01] MEDS ORDERED: PROTAMINE SULFATE 10 MG/ML 5 ML VIAL IV ONE ×3 (11:40→18:43)
[2019-04-01] MEDS ORDERED: SODIUM CHLORIDE 0.9% 1,000 ML IV ONE ×3 (12:35→17:10)
[2019-04-01] MEDS ORDERED: LIDOCAINE 1% INJ 10MG/ML (20 ML MDV) SQ ONE (12:40)
[2019-04-01] MEDS ORDERED: HEPARIN SOD,PORK IN 0.45% NACL 25,000 UNIT in 0.45% NACL 1 250ML.BAG IV ONE (13:09)
[2019-04-01 13:37] LABS: Glucose,Whole Blood 173 mg/dL (75-99)
[2019-04-01] MEDS ORDERED: HEPARIN SODIUM (1,000 UNIT/ML) 1,000 UNIT in SODIUM CHLORIDE 0.9% 1,000 ML IRRIGATION ONE (13:40)
[2019-04-01] MEDS ORDERED: IOPAMIDOL-370 100ML BTL INJ ONE (15:35)
[2019-04-01 16:51] LABS: Glucose,Whole Blood 173 mg/dL (75-99)
[2019-04-01 18:30] LABS: Hemoglobin A1C 8.4 % (4.0-6.0)
--- NOTE | 2019-04-01 19:28 | P.PCN ---
Preoperative Diagnosis: Diagnosis Atrial fibrillation, symptomatic, refractory to therapy, persistent Result Successful pulmonary vein isolation of all veins using cryo-ablation Complete entrance block in all 4 veins confirmed Transient phrenic nerve paresis with cryoablation of the right superior pulmonary vein limiting the duration of the ablation. Complete recovery Right-sided esophagus, somewhat difficult deflection but moved away to perform posterior antral ablation in the right side veins 3-D to anatomic mapping and linear ablation in the left atrial roof Linear ablation along the septum on the right side outside the right superior pulmonary vein antrum that resulted in organization to an atrial tachycardia with a cycle length of about 270 ms Mapping of this atrial tachycardia. Likely high interatrial septal atrial tachycardia exiting into the septal aspect of the SVC as well as the left side via the right superior pulmonary vein, activating cranial to caudal on the posterior wall, through the coronary sinus into the right atrium again up to septum and meeting at the SVC. This simulates a reentry but with the HD coloring propagation map the SVC and the right superior pulmonary veins were getting activated simultaneously and the entire activation pattern simply simulated a reentrant circuit but is most likely a focal atrial tachycardia in the thick intra-atrial septum above the superior limbus of the fossa ovalis Esophageal deflection YES Electrical cardioversion with a synchronized shock across the chest YES Procedure details Patient was brought to the EP lab in a fasting state. Written informed consent was obtained prior to the procedure. Procedure performed under general anesthesia After initial muscle relaxant use, muscle relaxants were not given thereafter in order to assess phrenic nerve during procedure. Patient prepped and draped as per protocol Full cryo-set up with standard preparation of the cryoablation tools done. Femoral Venous access obtained on the right and left groins Venous and arterial Sheaths placed. Diagnostic catheters for the high right atrium, phrenic nerve stimulation and pacing, His bundle, RV and coronary sinus placed Intracardiac echo catheter placed. Long sheath placed in the right atrium Left and right transseptal catheterization performed under intracardiac echo guidance. Intravenous heparin with aCT above 300 Later, catheter positioning and balloon positioning in the left atrium, under intracardiac echo guidance IV antibiotics administered perioperatively Pacemaker interrogated and reprogrammed to VVI at 40 BPM prior to the procedure Impedance is stable Cinefluoroscopy at baseline to document RV and RA leads Diagnostic EP study with Coronary sinus pacing and recording Baseline measurements normal Atrial paced rhythm following electrical cardioversion Transseptal catheterization performed RA pressure LA pressure 18/06/ Transseptal catheterization performed with standard sheath. The cryoablation sheath was then placed with an over the wire exchange without any acute complications. All 4 pulmonary veins were isolated in the following sequence: Left superior followed by left inferior followed by right superior followed by right inferior The cryo-ablation balloon was placed at the os of each vein 1.5 mL of IV dye was injected to confirm an occluded vein Goal during cryoablation was to achieve complete occlusion of the pulmonary vein, achieve -30 degrees C at 30 seconds and achieve -40 degrees C at 60 seconds and a time to effect of less than 60-90 seconds, . If not the balloon was repositioned to obtain this result After completion of Cryoblation with durations from 180-240 seconds, entrance block was confirmed with the Attain circular catheter in a roving fashion around the antrum of the pulmonary veins Phrenic nerve pacing was performed from the SVC, right innominate vein area and diaphragm voltage was monitored. Diaphragmatic contractions were also monitored manually for strength of contraction. Parameter goals for each cryo freeze Complete occlusion of the appropriate vein -30 degrees C by 30 seconds -40 degrees C by 60 seconds Minimum between minus 40-55 degrees C Thaw time greater than 10 seconds Balloon visualized by intracardiac echo The esophagus was intubated. Esophageal Temperature monitoring with a CIRCA catheter formed. Esophageal deflection for hypothermia of the esophagus below 30 degrees C Left superior pulmonary vein Complete isolation, entrance block Left inferior pulmonary vein Complete isolation, entrance block Right superior pulmonary vein, during phrenic nerve pacing Incomplete isolation at the antral level although and an ostial level entrance block was noted Transient right phrenic nerve paresis which recovered completely but did limited the duration of Cryoblation This was later completed with RF especially in the posterior antrum. Esophagus had to be deflected leftwards Right inferior pulmonary vein, during phrenic nerve pacing Complete isolation, entrance block Right middle vein was not isolated but was later isolated with RF energy and 3-D mapping At the end of the procedure the Achieve catheter was once again used to check for entrance block Phrenic nerve stimulation was performed to confirm diaphragmatic stimulation the end of the procedure Cine fluoroscopy was performed at the very end of the procedure to confirm movement of both diaphragms with inspiration and expiration After completion of cryo ablation, 3-D mapping and RF ablation was performed in the left atrium Ablation of the posterior zuleika of the right-sided as well as left-sided veins with esophageal deflection for complete antral level isolation of the veins Linear ablation along the roof was performed with a complete line of block Linear ablation along the anterior septum resulted in organization when atrial tachycardia with a cycle length of 270 ms L2 anatomic mapping of this atrial tachycardia in the left atrium and the right atrium performed. Limited RF energy applied in the septal aspect of the SVC without termination High-density propagation mapping revealed that this was not a reentrant circuit involving both atria but more likely a focal tachycardia in the upper intra- atrial septum above the superior limbus of the fossa ovalis with simultaneous exit into the SVC as well as the right superior pulmonary vein heading down the posterior wall of the left atrium Dual-chamber pacemaker interrogated and reprogrammed to [id number] 60 to 1:30 bpm Lead impedance is stable Cinefluoroscopy showed leads was stable At the end of the procedure the patient was extubated Heparin was reversed Venous sheaths were removed and hemostasis assured Procedures performed (PVI - CRYO Ablation) Diagnostic EP study CS pacing and recording Left and right transseptal catheterization 3-D mapping Intracardiac echocardiography Pulmonary vein isolation with transseptal and comprehensive EPS, 63204 Left atrial roof line, +[id number] Linear ablation along the anterior septum 3-D electro-anatomic mapping of the atrial tachycardia Electrical cardioversion with a synchronized shock across the chest 49206 Extended duration procedure This is a long procedure lasting greater than 6 hours that involved cryoablation of all 4 pulmonary veins, transient phrenic nerve paresis that recovered completely with right superior pulmonary vein ablation, linear ablation in the left atrium in the roof, anterior septum, 3-D electro-anatomic mapping of the residual left atrial tachycardia in the right atrium left atrium and the John sinus and ablation in the base of the SVC along the septal aspect, as well as esophageal deflection to complete the posterior ablation's
[2019-04-01 20:23] LABS: Glucose,Whole Blood 199 mg/dL (75-99)
[2019-04-01] MEDS ORDERED: ACETAMINOPHEN TAB 500 MG TAB PO PRN (22:26)
[2019-04-01] MEDS ORDERED: ALPRAZolam 0.25 MG TAB PO PRN (22:30)
--- NOTE | 2019-04-01 22:54 | XR ---
EXAM: XR Chest, 1 View CLINICAL HISTORY: ITS.REASON XR Reason: pneumonia TECHNIQUE: Frontal view of the chest. COMPARISON: Chest radiography 03/30/19. FINDINGS: Lungs: Small area of ill-defined airspace disease at the right base obscuring a portion of the right hemidiaphragm. Consider atelectasis versus infiltrate. Normal susan and mediastinum. Pleural space: No pleural effusion or pneumothorax. Heart: Normal cardiac silhouette size and appearance. Mediastinum: Normal trachea. Bones/joints: Unremarkable. Tubes, lines and devices: 2-lead pacer identified with intact wires. IMPRESSION: Small area of ill-defined airspace disease at the right base obscuring a portion of the right hemidiaphragm. Consider atelectasis versus infiltrate.
[2019-04-01] MEDS: MONTELUKAST 10 MG TAB PO SCH (23:35)
[2019-04-01] MEDS: CLOPIDOGREL 75 MG TAB PO SCH (23:36)
[2019-04-01 23:54] LABS: Amylase 41 U/L (30-110); Lipase 104 U/L (23-300)
[2019-04-02] MEDS: AZTREONAM 1 GM in SODIUM CHLORIDE 0.9% 50 ML IVPB SCH ×4 (02:30→22:52)
[2019-04-02] MEDS: INSULIN ASPART (NovoLOG) 100 UNIT/ML VIAL SQ SCH ×5 (06:00→21:38)
[2019-04-02] MEDS: PRAVASTATIN SODIUM 40 MG TAB PO SCH ×2 (06:01→20:25)
--- NOTE | 2019-04-02 06:43 | PN ---
PROGRESS NOTE DATE OF SERVICE: 04/01/2019 This 64-year-old gentleman who was admitted with chest discomfort and as well as atrial fibrillation was evaluated by Cardiology and Cardiology performed pulmonary vein isolation of all veins using cryoablation and as well as complete entrance block in 4 veins confirmed for symptomatic atrial fibrillation refractory to therapy and persistent atrial fibrillation. Postoperatively the patient is complaining of some headaches. The patient also complains of rigors and chills also. The patient also had history of significant sinusitis as well. The creatinine is elevated to 1.74. PAST MEDICAL HISTORY: Reviewed. REVIEW OF SYSTEMS: CARDIOVASCULAR SYSTEM: As mentioned earlier. RESPIRATORY: As mentioned earlier. GI: No nausea. : No dysuria. NERVOUS SYSTEM: No numbness or weakness. CURRENT MEDICATIONS: Current medications are reviewed and include: 1. Tylenol 650 q.6 p.r.n. 2. Eliquis 5 mg p.o. b.i.d. 3. Plavix 75 mg q.h.s. 4. Cardizem. 5. Lasix. 6. Apresoline. 7. NovoLog. 8. Imdur. 9. Claritin. 10.Lopressor. 11.Morphine sulfate. 12.Protonix. PHYSICAL EXAMINATION: Patient is alert and oriented x3. Pulse 60, blood pressure 122/79, respirations 16, temperature 97 degrees, pulse ox 100% on 6 L. HEENT: Conjunctivae normal. Oral mucosa moist. NECK: No jugular venous distention. No carotid bruit. No lymph node enlargement. CARDIOVASCULAR: S1, S2 muffled. RESPIRATORY: Breath sounds diminished at the bases. A few scattered rhonchi and crackles. ABDOMEN: Soft, nontender. No mass palpable. LEGS: No edema. No swelling. NERVOUS SYSTEM: Higher functions as mentioned earlier. Moves all 4 limbs. No focal deficits. LYMPHATICS: No lymphadenopathy of the neck, axillae or groin. SKIN: No ulcer, rash or bleeding. JOINTS: No active deforming arthropathy. LABS: WBC 7.2, hemoglobin 11.8. Creatinine is 1.74. ASSESSMENT: 1. Refractory atrial fibrillation, status post EP studies and pulmonary vein isolation. 2. Rigors and chills, possible acute sinusitis. 3. Chest pain, myocardial infarction ruled out. 4. Chronic kidney disease stage 3, possibly. 5. Hypertension. 6. Hyperlipidemia. 7. History of asthma. 8. Diabetes mellitus type 2. 9. History of congestive heart failure. 10.Gastroesophageal reflux disease. 11.History of liver disease. 12.History of myocardial infarction. 13.History of bilateral peripheral neuropathy. 14.History of degenerative joint disease. 15.History of liver cirrhosis. 16.History of coronary artery disease, stent. RECOMMENDATIONS AND DISCUSSION: This 64-year-old gentleman who presented with multiple medical issues at this time will continue the current medications and symptomatic treatment. Repeat labs will be recommended. I would also recommend pain medication and monitor creatinine closely. Closely follow with Cardiology. Also recommend empiric antibiotics as well. The lipase is elevated. I would also recommend amylase also. Prognosis guarded because of multiple complex medical issues. Further recommendations to follow. MMODL / IJN: [id number] / SUNSHINE
[2019-04-02 06:50] LABS: Glucose,Whole Blood 364 mg/dL (75-99)
[2019-04-02 07:19] LABS: Basophils % (A) 0 %; Eosinophils % (A) 0 %; HCT 33.6 % (39.0-53.0); HGB 10.2 gm/dL (13.0-17.5); Hypochromasia Slight; Lymphocytes # (A) 0.6 k/uL (1.0-4.8); Lymphocytes % (A) 6 %; MCH 27.3 pg (25.0-35.0); MCHC 30.4 g/dL (31.0-37.0); MCV 89.9 fL (80.0-100.0); Mean Platelet Volume 8.6; Monocytes # (A) 0.5 k/uL (0-1.0); Monocytes % (A) 6 %; Neutrophils # (A) 7.8 k/uL (1.3-7.7); Neutrophils % (A) 86 %; Platelet Count 198 k/uL (150-450); RBC 3.74 m/uL (4.30-5.90); RDW 14.3 % (11.5-15.5)
[2019-04-02 07:39] LABS: Calcium 8.3 mg/dL (8.4-10.2); Potassium 4.6 mmol/L (3.5-5.1)
[2019-04-02] MEDS: FUROSEMIDE 40 MG TAB PO SCH (08:28)
[2019-04-02] MEDS: PANTOPRAZOLE 40 MG TABLET PO SCH (08:28)
[2019-04-02] MEDS: APIXABAN 5 MG TAB PO SCH ×2 (08:28→20:25)
[2019-04-02] MEDS: METOPROLOL TARTRATE 50 MG TAB PO SCH ×2 (08:28→20:25)
[2019-04-02] MEDS: hydrALAZINE HCL 50 MG TAB PO SCH ×3 (08:28→21:39)
[2019-04-02] MEDS: ISOSORBIDE MONONITRATE ER 30 MG TAB.ER.24H PO SCH (08:28)
[2019-04-02] MEDS: DILTIAZEM ORAL 30 MG TAB PO SCH ×3 (08:28→21:39)
[2019-04-02] MEDS: LORATADINE 10 MG TAB PO SCH (08:28)
[2019-04-02] MEDS: MAGNESIUM OXIDE 400 MG TAB PO SCH (08:28)
--- NOTE | 2019-04-02 09:08 | P.PN ---
Subjective Patient evaluated this morning. He denies any chest discomfort.. He does have a sore throat but he has no difficulty swallowing no dizziness lightheadedness. He did ambulate to the bathroom He sitting comfortably at the edge of the bed Blood pressure 132/69 mmHg normal respirations pulse rate in the 70s and 80s afebrile Breath sounds are reduced bilaterally but there are no rhonchi no crackles The soft systolic murmur over the precordium No JVD Groins of healed well Labs are reviewed hemoglobin 10.2, white count normal at lites normal Impression Persistent atrial fibrillation status post cryoablation of the pulmonary veins followed by Rosa Isela ablation in the left atrium and ablation of the base of the SVC on with septal aspect Transient paresis of the right phrenic nerve during cryoablation of the right superior pulmonary vein with recovery Right-sided esophagus, deflected to complete right posterior antral ablation Lead and ablation in the roof of the left atrium Linear ablation along the anterior septum of the left atrium that resulted in organization of atrial fibrillation into an atrial tachycardia with a cycle length of about 170 ms Electrical anatomic mapping of the atrial tachycardia revealed most likely a focal atrial tachycardia which exited into the SVC and into the left atrium via the right superior part very vein, went on the posterior wall of the left atrium and around into the coronary sinus back into the right atrium and up the right side of the septum. Did not respond RF ablations at the base of the SVC on the septal aspect Electrical cardioversion performed Plan Continue anticoagulation continue current medications If in the future he has a recurrence of this atrial tachycardia then detailed hi gh density mapping of the right atrium left atrium and the coronary sinus. Based upon yesterday's mapping of the right atrium left atrium and coronary sinus, that the tachycardias originating in the upper intact atrial septum in its thicker portion above the superior limbus of the fossa ovalis. And does not represent true biatrial reentry Detailed discussion the patient and his May be discharged later today after 5 PM or tomorrow Objective - Vital Signs Vital signs: Vital Signs Temp 97.5 F L 04/02/19 07:18 Pulse 81 04/02/19 07:18 Resp 18 04/02/19 07:18 BP 132/69 04/02/19 07:18 Pulse Ox 97 04/02/19 07:18 Intake & Output 04/01/19 04/02/19 04/02/19 18:59 06:59 18:59 Intake Total 2150.8 50 240 Output Total 950 Balance 2150.8 -900 240 Weight 78.9 kg Intake: IV 2150.8 50 Oral 240 Output: Urine 950 Uretheral (Covarrubias) 500 Other: Voiding Method Toilet # Voids 1 0 1 - Labs CBC & Chem 7: 04/02/19 06:20 04/02/19 06:20 Labs: Abnormal Lab Results - Last 24 Hours (Table) 04/01/19 04/01/19 04/01/19 Range/Units 06:08 13:35 16:47 RBC (4.30-5.90) m/uL Hgb (13.0-17.5) gm/dL Hct (39.0-53.0) % MCHC (31.0-37.0) g/dL Neutrophils # (1.3-7.7) k/uL Lymphocytes # (1.0-4.8) k/uL Sodium (137-145) mmol/L BUN (9-20) mg/dL Creatinine (0.66-1.25) mg/dL Glucose (74-99) mg/dL POC Glucose (mg/dL) 173 H 173 H (75-99) mg/dL Hemoglobin A1c 8.4 H (4.0-6.0) % Calcium (8.4-10.2) mg/dL 04/01/19 04/02/19 04/02/19 Range/Units 20:18 06:20 06:20 RBC 3.74 L (4.30-5.90) m/uL Hgb 10.2 L (13.0-17.5) gm/dL Hct 33.6 L (39.0-53.0) % MCHC 30.4 L (31.0-37.0) g/dL Neutrophils # 7.8 H (1.3-7.7) k/uL Lymphocytes # 0.6 L (1.0-4.8) k/uL Sodium 136 L (137-145) mmol/L BUN 43 H (9-20) mg/dL Creatinine 1.84 H (0.66-1.25) mg/dL Glucose 307 H (74-99) mg/dL POC Glucose (mg/dL) 199 H (75-99) mg/dL Hemoglobin A1c (4.0-6.0) % Calcium 8.3 L (8.4-10.2) mg/dL 04/02/19 Range/Units 06:49 RBC (4.30-5.90) m/uL Hgb (13.0-17.5) gm/dL Hct (39.0-53.0) % MCHC (31.0-37.0) g/dL Neutrophils # (1.3-7.7) k/uL Lymphocytes # (1.0-4.8) k/uL Sodium (137-145) mmol/L BUN (9-20) mg/dL Creatinine (0.66-1.25) mg/dL Glucose (74-99) mg/dL POC Glucose (mg/dL) 364 H (75-99) mg/dL Hemoglobin A1c (4.0-6.0) % Calcium (8.4-10.2) mg/dL
[2019-04-02 11:25] LABS: Glucose,Whole Blood 258 mg/dL (75-99)
--- NOTE | 2019-04-02 11:48 | P.PN ---
Subjective Progress Note Date: 04/02/19 Principal diagnosis: CAD/chronic atrial fibrillation Mr. Lieberman underwent yesterday electrophysiology procedure was Dr. Fitch where he underwent cryoablation of the 4 pulmonary vein. By the end he underwent cardioversion. So far he has been maintaining normal sinus mechanism. On follow-up with him today, April [id number], he denies any chest pain or chest discomfort, shortness of breath, dizziness or lightheadedness, or feeling of heart racing or fluttering. He stated that overall he is feeling better. I would recommend giving the patient overnight for observation for possible discharge home tomorrow morning. Objective - Vital Signs Vital signs: Vital Signs Temp 97.5 F L 04/02/19 07:18 Pulse 81 04/02/19 07:18 Resp 18 04/02/19 07:18 BP 132/69 04/02/19 07:18 Pulse Ox 97 04/02/19 07:18 Intake & Output 04/01/19 04/02/19 04/02/19 18:59 06:59 18:59 Intake Total 2150.8 50 240 Output Total 950 Balance 2150.8 -900 240 Weight 78.9 kg Intake: IV 2150.8 50 Oral 240 Output: Urine 950 Uretheral (Covarrubias) 500 Other: Voiding Method Toilet # Voids 1 0 1 - Constitutional General appearance: Present: no acute distress - Respiratory Respiratory: bilateral: CTA - Cardiovascular Rhythm: regular Heart sounds: normal: S1, S2 - Labs CBC & Chem 7: 04/02/19 06:20 04/02/19 06:20 Labs: Abnormal Lab Results - Last 24 Hours (Table) 04/01/19 04/01/19 04/01/19 Range/Units 06:08 13:35 16:47 RBC (4.30-5.90) m/uL Hgb (13.0-17.5) gm/dL Hct (39.0-53.0) % MCHC (31.0-37.0) g/dL Neutrophils # (1.3-7.7) k/uL Lymphocytes # (1.0-4.8) k/uL Sodium (137-145) mmol/L BUN (9-20) mg/dL Creatinine (0.66-1.25) mg/dL Glucose (74-99) mg/dL POC Glucose (mg/dL) 173 H 173 H (75-99) mg/dL Hemoglobin A1c 8.4 H (4.0-6.0) % Calcium (8.4-10.2) mg/dL 04/01/19 04/02/19 04/02/19 Range/Units 20:18 06:20 06:20 RBC 3.74 L (4.30-5.90) m/uL Hgb 10.2 L (13.0-17.5) gm/dL Hct 33.6 L (39.0-53.0) % MCHC 30.4 L (31.0-37.0) g/dL Neutrophils # 7.8 H (1.3-7.7) k/uL Lymphocytes # 0.6 L (1.0-4.8) k/uL Sodium 136 L (137-145) mmol/L BUN 43 H (9-20) mg/dL Creatinine 1.84 H (0.66-1.25) mg/dL Glucose 307 H (74-99) mg/dL POC Glucose (mg/dL) 199 H (75-99) mg/dL Hemoglobin A1c (4.0-6.0) % Calcium 8.3 L (8.4-10.2) mg/dL 04/02/19 04/02/19 Range/Units 06:49 11:23 RBC (4.30-5.90) m/uL Hgb (13.0-17.5) gm/dL Hct (39.0-53.0) % MCHC (31.0-37.0) g/dL Neutrophils # (1.3-7.7) k/uL Lymphocytes # (1.0-4.8) k/uL Sodium (137-145) mmol/L BUN (9-20) mg/dL Creatinine (0.66-1.25) mg/dL Glucose (74-99) mg/dL POC Glucose (mg/dL) 364 H 258 H (75-99) mg/dL Hemoglobin A1c (4.0-6.0) % Calcium (8.4-10.2) mg/dL Assessment and Plan Assessment: Assessment #1 atypical chest discomfort #2 chronic persistent atrial fibrillation #3 status post permanent pacemaker implantation #4 hypertension #5 dyslipidemia Plan #1 continue the current medical regimen #2 possible discharge home tomorrow morning
[2019-04-02 16:29] LABS: Glucose,Whole Blood 232 mg/dL (75-99)
--- NOTE | 2019-04-02 19:22 | PN ---
PROGRESS NOTE DATE OF SERVICE: 04/02/2019 This 64 -year-old gentleman who was who underwent EP studies and pulmonary vein ablation atrial fibrillation is feeling much better today. No chest pain. No palpitations. No fever. The patient has significant sinusitis also. No chest pain. No palpitations. Cardiology following the patient closely. EXAM: Alert and oriented x3. Pulse 67, blood pressure 120/75, respiration 16, temperature 97.2, pulse ox 98% on room air. HEENT: Conjunctivae normal. Oral mucosa moist. NECK: No jugular venous distention. No carotid bruit. No lymph node enlargement. CARDIOVASCULAR: S1, S2 muffled. RESPIRATIONS: Breath sounds diminished in the bases. A few scattered rhonchi and crackles. ABDOMEN is soft. Nontender. CENTRAL NERVOUS SYSTEM: No focal deficits. LABS: At this time shows WBC 9, hemoglobin 10.2, sodium 136, potassium 4, Accu-Cheks noted. ASSESSMENT: 1. Refractory atrial fibrillation status post EP studies and pulmonary vein isolation. 2. Rigors and chills, possible acute sinusitis. 3. Chest pain, myocardial infarction ruled out. 4. Chronic kidney stage 3, possibly. 5. Hypertension. 6. Hyperlipidemia. 7. History of asthma. 8. Diabetes mellitus type 2. 9. History of congestive heart failure with ejection fraction unknown. 10.Gastroesophageal reflux disease. 11.History of liver disease. 12.History of myocardial infarction. 13.History of bilateral peripheral neuropathy. 14.History of degenerative joint disease. 15.History of liver cirrhosis. 16.History of coronary artery disease, stent. RECOMMENDATIONS AND DISCUSSION: Recommend to continue current medications, medical management and symptomatic treatment. Otherwise monitor pressures closely. Continue the rest of the medications. Continue short course of antibiotics and follow with Cardiology and multiple consultants. Guarded prognosis. Further recommendations to follow. MMODL / IJN: [id number] / SUNSHINE
[2019-04-02] MEDS: MONTELUKAST 10 MG TAB PO SCH (20:25)
[2019-04-02] MEDS: CLOPIDOGREL 75 MG TAB PO SCH (20:25)
[2019-04-02 20:57] LABS: Glucose,Whole Blood 226 mg/dL (75-99)
[2019-04-02] MEDS ORDERED: INSULIN DETEMIR (LEVEMIR) 100 UNIT/ML SYR SQ SCH (21:30)
[2019-04-03 01:10] VITALS: RESP 18
[2019-04-03] MEDS ORDERED: MELATONIN 1 MG TAB PO SCH ×2 (01:28→21:00)
[2019-04-03] MEDS: ACETAMINOPHEN TAB 325 MG TAB PO PRN ×2 (02:07→11:25)
[2019-04-03 06:03] LABS: Glucose,Whole Blood 230 mg/dL (75-99)
[2019-04-03 06:36] LABS: Basophils % (A) 0 %; Eosinophils # (A) 0.1 k/uL (0-0.7); Eosinophils % (A) 1 %; HGB 9.5 gm/dL (13.0-17.5); Hypochromasia Slight; Lymphocytes % (A) 14 %; MCH 28.2 pg (25.0-35.0); MCHC 31.6 g/dL (31.0-37.0); MCV 89.3 fL (80.0-100.0); Mean Platelet Volume 8.4; Monocytes # (A) 0.5 k/uL (0-1.0); Monocytes % (A) 8 %; Neutrophils % (A) 74 %; Platelet Count 171 k/uL (150-450); RBC 3.35 m/uL (4.30-5.90); RDW 14.3 % (11.5-15.5); WBC 6.7 k/uL (3.8-10.6)
[2019-04-03] MEDS: INSULIN ASPART (NovoLOG) 100 UNIT/ML VIAL SQ SCH (06:57)
[2019-04-03] MEDS: PANTOPRAZOLE 40 MG TABLET PO SCH (08:01)
[2019-04-03] MEDS: APIXABAN 5 MG TAB PO SCH (08:01)
[2019-04-03] MEDS: ISOSORBIDE MONONITRATE ER 30 MG TAB.ER.24H PO SCH (08:01)
[2019-04-03] MEDS: MAGNESIUM OXIDE 400 MG TAB PO SCH (08:01)
[2019-04-03] MEDS: LORATADINE 10 MG TAB PO SCH (08:01)
[2019-04-03] MEDS: FUROSEMIDE 40 MG TAB PO SCH (08:01)
[2019-04-03] MEDS: METOPROLOL TARTRATE 50 MG TAB PO SCH (08:01)
[2019-04-03] MEDS: hydrALAZINE HCL 50 MG TAB PO SCH (08:01)
[2019-04-03] MEDS: DILTIAZEM ORAL 30 MG TAB PO SCH (08:02)
[2019-04-03 08:10] VITALS: BP 134/71; PULSE 73; TEMP 97.8
--- NOTE | 2019-04-03 10:51 | P.PN ---
Subjective Progress Note Date: 04/03/19 Principal diagnosis: CAD/chronic atrial fibrillation Mr. Lieberman underwent yesterday electrophysiology procedure was Dr. Fitch where he underwent cryoablation of the 4 pulmonary vein. By the end he underwent cardioversion. So far he has been maintaining normal sinus mechanism. On follow-up with the patient today, April [id number], he denies any chest pain or discomfort or shortness of breath or heart racing or fluttering. From the cardiac vascular standpoint overview, he can be discharged home. Objective - Vital Signs Vital signs: Vital Signs Temp 97.8 F 04/03/19 08:06 Pulse 73 04/03/19 08:06 Resp 18 04/03/19 08:06 BP 134/71 04/03/19 08:06 Pulse Ox 96 04/03/19 08:06 Intake & Output 04/02/19 04/03/19 04/03/19 18:59 06:59 18:59 Intake Total 720 300 Output Total 200 0 Balance 520 300 0 Weight 85.6 kg Intake: Intake, IV Titration 60 Amount Aztreonam 1 gm In Sodium 50 Chloride 0.9% 50 ml @ 100 mls/hr IVPB Q8HR [facility] Rx# :[id number] Sodium Chloride 0.9% 1, 10 000 ml @ 0 mls/hr IV .STK -[facility] ONE Rx#:[id number] Oral 720 240 Output: Urine 200 0 Other: Voiding Method Toilet Toilet # Voids 1 4 - Constitutional General appearance: Present: no acute distress - Respiratory Respiratory: bilateral: diminished - Cardiovascular Rhythm: irregularly irregular Heart sounds: normal: S1, S2 - Labs CBC & Chem 7: 04/03/19 05:47 04/02/19 06:20 Labs: Abnormal Lab Results - Last 24 Hours (Table) 04/02/19 04/02/19 04/02/19 Range/Units 11:23 16:28 20:54 RBC (4.30-5.90) m/uL Hgb (13.0-17.5) gm/dL Hct (39.0-53.0) % POC Glucose (mg/dL) 258 H 232 H 226 H (75-99) mg/dL 04/03/19 04/03/19 Range/Units 05:47 06:01 RBC 3.35 L (4.30-5.90) m/uL Hgb 9.5 L (13.0-17.5) gm/dL Hct 30.0 L (39.0-53.0) % POC Glucose (mg/dL) 230 H (75-99) mg/dL Microbiology - Last 24 Hours (Table) 04/01/19 23:21 Blood Culture - Preliminary Blood No Growth after 24 hours Assessment and Plan Assessment: Assessment #1 atypical chest discomfort #2 chronic persistent atrial fibrillation #3 status post permanent pacemaker implantation #4 hypertension #5 dyslipidemia Plan #1 continue the current medical regimen #2 the patient can be discharged home
[2019-04-03] MEDS: AZTREONAM 1 GM in SODIUM CHLORIDE 0.9% 50 ML IVPB SCH (11:09)
[2019-04-03 12:01] LABS: Glucose,Whole Blood 206 mg/dL (75-99)
--- NOTE | 2019-04-04 07:39 | DS ---
DISCHARGE SUMMARY DATE OF SERVICE: 04/03/2019 FINAL DIAGNOSES: 1. Refractory atrial fibrillation, status post EP studies and pulmonary vein isolation. 2. Rigors and chills, possible acute sinusitis. 3. Chest pain, myocardial infarction ruled out. 4. Chronic kidney disease stage III, possibly. 5. Hypertension. 6. Hyperlipidemia. 7. History of asthma. 8. Diabetes mellitus type 2. 9. History is congestive heart failure, ejection fraction unknown. 10.Gastroesophageal reflux disease. 11.History of liver disease. 12.History of myocardial infarction. 13.History of bilateral peripheral neuropathy. 14.History of degenerative joint disease. 15.History of liver cirrhosis. 16.Coronary artery disease, stent. DISCHARGE DISPOSITION: The patient will be discharged in a stable condition with guarded prognosis. HISTORY OF PRESENT ILLNESS: This is a 64-year-old gentleman with a past medical history of multiple medical problems, admitted with refractory atrial fibrillation, patient had EP studies and pulmonary vein isolation. The patient improved significantly. Postoperatively, patient had episodes of sinusitis and treated with empiric antibiotics. Patient improved significantly. Recommend close outpatient follow up in the outpatient setting. Cardiology cleared the patient for discharge. On exam, vital signs are stable. CARDIOVASCULAR SYSTEM: S1, S2. ABDOMEN: Soft. NERVOUS SYSTEM: No focal deficits. DISCHARGE ADVICE: 1. Diet is cardiac diet. 2. Activity limited until followup. 3. Follow up with Dr. Valentine in 2 to 3 days. 4. Follow up with Cardiology as recommended. MEDICATIONS: 1. Claritin 10 mg p.o. daily. 2. Flonase 1 spray b.i.d. 3. Imdur 30 mg p.o. daily. 4. Lasix 40 mg p.o. daily. 5. Levemir 30 units subcu q.h.s. 6. Lopressor 100 mg p.o. b.i.d. 7. Magnesium 300 mg daily. 8. NovoLog a.c. and at bedtime. 9. Plavix 75 mg q.h.s. 10.Pravachol 40 mg q.h.s. 11.Protonix 40 mg daily. 12.Restoril 50 mg q.h.s. p.r.n. 13.Singular 10 mg q.h.s. 14.Vitamin D3 three thousand daily. 15.Apresoline 100 mg p.o. t.i.d. 16.Cardizem 90 mg p.o. t.i.d. 17.Eliquis 5 mg p.o. b.i.d. 18.Nitrostat 0.4 sublingual p.r.n. 19.Tylenol 500 mg q[address] Fitch will see the patient when discharged. Stable condition, guarded prognosis. MMODL / IJN: [id number] /
== END 2019-04-03 12:15 | disposition home or self-care (01) | DRG 274 ==
LOC: EC 18:52 → 3SCARD 20:36
PROVIDERS: ADMIT Hospitalist; ATTEND Hospitalist
PROC: 02583ZZ Destruction of Conduction Mechanism, Percutaneous Approach (ICD-10-PCS; principal; 2019-04-01 11:30)
PROC: 4A0234Z Measurement of Cardiac Electrical Activity, Percutaneous Approach (ICD-10-PCS; 2019-04-01 11:30)
PROC: 02K83ZZ Map Conduction Mechanism, Percutaneous Approach (ICD-10-PCS; 2019-04-01 11:30)
DX: I48.1 Persistent atrial fibrillation (principal); I13.0 Hypertensive heart and chronic kidney disease with heart failure and stage 1 through stage 4 chronic kidney disease, or unspecified chronic kidney disease; I48.2 Chronic atrial fibrillation; I47.1 Supraventricular tachycardia; E11.22 Type 2 diabetes mellitus with diabetic chronic kidney disease; I50.9 Heart failure, unspecified; E11.42 Type 2 diabetes mellitus with diabetic polyneuropathy; L13.0 Dermatitis herpetiformis; K74.60 Unspecified cirrhosis of liver; N18.3 Chronic kidney disease, stage 3 (moderate); I25.10 Atherosclerotic heart disease of native coronary artery without angina pectoris; I25.2 Old myocardial infarction; J44.9 Chronic obstructive pulmonary disease, unspecified; K21.9 Gastro-esophageal reflux disease without esophagitis; K90.0 Celiac disease; N40.0 Benign prostatic hyperplasia without lower urinary tract symptoms; G89.29 Other chronic pain; I83.93 Asymptomatic varicose veins of bilateral lower extremities; N28.9 Disorder of kidney and ureter, unspecified; M19.90 Unspecified osteoarthritis, unspecified site; R07.89 Other chest pain; R51 Headache; J01.90 Acute sinusitis, unspecified; M51.36 Other intervertebral disc degeneration, lumbar region; M51.37 Other intervertebral disc degeneration, lumbosacral region; E78.2 Mixed hyperlipidemia; Z77.090 Contact with and (suspected) exposure to asbestos; Z79.01 Long term (current) use of anticoagulants; Z79.4 Long term (current) use of insulin; Z79.899 Other long term (current) drug therapy; Z79.02 Long term (current) use of antithrombotics/antiplatelets; Z79.82 Long term (current) use of aspirin; Z95.5 Presence of coronary angioplasty implant and graft; Z95.0 Presence of cardiac pacemaker; Z87.891 Personal history of nicotine dependence; Z88.1 Allergy status to other antibiotic agents; Z88.0 Allergy status to penicillin; Z88.2 Allergy status to sulfonamides; Z88.8 Allergy status to other drugs, medicaments and biological substances; Z90.49 Acquired absence of other specified parts of digestive tract; Z98.42 Cataract extraction status, left eye; Z98.41 Cataract extraction status, right eye; Z96.1 Presence of intraocular lens; Z82.49 Family history of ischemic heart disease and other diseases of the circulatory system; Z83.3 Family history of diabetes mellitus
CPT/HCPCS: 36415; 71045; 71046; 80048; 80053; 82150; 83036; 83690; 83735; 83880; 84484; 85025; 85347; 85610; 85730; 87040; 92960; 93005; 93613; 93656; 93657; 93662; 94760; 99285

== ENCOUNTER 2019-04-07 09:50 | Inpatient (IN) | payer MEDICARE ==
[2019-04-07 10:21] LABS: Basophils % (A) 0 %; Eosinophils # (A) 0.2 k/uL (0-0.7); Eosinophils % (A) 3 %; HCT 34.7 % (39.0-53.0); HGB 10.9 gm/dL (13.0-17.5); Lymphocytes # (A) 0.6 k/uL (1.0-4.8); Lymphocytes % (A) 8 %; MCH 27.4 pg (25.0-35.0); MCHC 31.3 g/dL (31.0-37.0); MCV 87.6 fL (80.0-100.0); Mean Platelet Volume 8.4; Monocytes # (A) 0.7 k/uL (0-1.0); Monocytes % (A) 9 %; Neutrophils # (A) 5.9 k/uL (1.3-7.7); Neutrophils % (A) 78 %; Platelet Count 255 k/uL (150-450); RBC 3.97 m/uL (4.30-5.90); RDW 15.1 % (11.5-15.5); WBC 7.5 k/uL (3.8-10.6)
--- NOTE | 2019-04-07 10:30 | ED ---
General Adult HPI - General Chief complaint: Shortness of Breath Stated complaint: SOB Time Seen by Provider: 04/07/19 09:58 Source: patient, RN notes reviewed, old records reviewed Mode of arrival: wheelchair Limitations: no limitations - History of Present Illness Initial comments: 64-year-old male presented for evaluation of dyspnea. Patient has history of chronic kidney disease, atrial fibrillation, CAD and congestive heart failure. He reports 3 days of orthopnea and paroxysmal L dyspnea. He does report lower extremity swelling. He was seen by his county manager on Monday given 1 dose of intravenous Lasix. He states his symptoms were moderately improved with this medication. He is currently on Lasix twice daily. His been compliant with all medications which include Eliquis. Denies chest pain. Denies productive cough. He has a mild nonproductive cough which is at baseline. He had heart ablation within the past week. - Related Data Home Medications Medication Instructions Recorded Confirmed Insulin Detemir (Levemir) [Levemir] 30 unit SQ HS 08/18/14 04/07/19 Fluticasone Nasal [place] [Flonase 1 spray EA NOSTRIL BID 05/12/16 04/07/19 Nasal [place]] Pravastatin Sodium [Pravachol] 40 mg PO HS 12/06/17 04/07/19 Cholecalciferol [Vitamin D3 (25 3,000 unit PO PC-BRKFST 08/26/18 04/07/19 Mcg = 1000 Iu)] Isosorbide Mononitrate ER [Imdur] 30 mg PO DAILY 01/16/19 04/07/19 Pantoprazole [Protonix] 40 mg PO DAILY 01/16/19 04/07/19 INSULIN ASPART (NovoLOG) [NovoLOG See Protocol SQ TID-W/MEALS 02/12/19 04/07/19 (formulary)] Montelukast [Singulair] 10 mg PO HS 02/12/19 04/07/19 Clopidogrel [Plavix] 75 mg PO HS 02/15/19 04/07/19 Furosemide [Lasix] 40 mg PO DAILY 03/28/19 04/07/19 Loratadine [Claritin] 10 mg PO DAILY 03/28/19 04/07/19 Magnesium. 300 mg PO DAILY 03/28/19 04/07/19 Metoprolol Tartrate [Lopressor] 100 mg PO BID 03/28/19 04/07/19 Temazepam [Restoril] 15 mg PO HS PRN 04/02/19 04/07/19 Previous Rx's Medication Instructions Recorded hydrALAZINE HCL [Apresoline] 100 mg PO TID #90 tab 06/07/18 Nitroglycerin Sl Tabs [Nitrostat] 0.4 mg SUBLINGUAL Q5M PRN #25 tab 06/28/18 Diltiazem Oral [Cardizem*] 90 mg PO TID #90 tab 02/14/19 Acetaminophen Tab [Tylenol] 500 mg PO Q4HR PRN tab 04/03/19 Apixaban [Eliquis] 5 mg PO BID #60 tab 04/03/19 Allergies Allergy/AdvReac Type Severity Reaction Status Date / Time amoxicillin Allergy Anaphylaxis Verified 04/07/19 10:07 cephalexin monohydrate Allergy Rash/Hives Verified 04/07/19 10:07 [From Keflex] clindamycin Allergy Rash/Hives Verified 04/07/19 10:07 gluten Allergy Unknown Verified 04/07/19 10:07 Penicillins Allergy Rash/Hives Verified 04/07/19 10:07 Sulfa (Sulfonamide Allergy Anaphylaxis Verified 04/07/19 10:07 Antibiotics) sulfamethoxazole Allergy Anaphylaxis Verified 04/07/19 10:07 [From Bactrim] trimethoprim [From Bactrim] Allergy Anaphylaxis Verified 04/07/19 10:07 amlodipine AdvReac Swelling Verified 04/07/19 10:07 carvedilol AdvReac STOMACH Verified 04/07/19 10:07 CRAMPS Review of Systems ROS Statement: Those systems with pertinent positive or pertinent negative responses have been documented in the HPI. ROS Other: All systems not noted in ROS Statement are negative. Past Medical History Past Medical History: Atrial Fibrillation, Coronary Artery Disease (CAD), Chest Pain / Angina, Heart Failure, COPD, Diabetes Mellitus, GERD/Reflux, Hyperlipide joe, Hypertension, Liver Disease, Myocardial Infarction (MS), Prostate Disorder, Renal Disease, Skin Disorder Additional Past Medical History / Comment(s): Neuropathy bilateral feet, stage III chronic kidney disease, chronic CHF, liver cirrhosis, BPH, DJD, herniated discs low back, chronic low back pain, varicose veins bilaterally, anemia, past asbestos exposure, celiac disease, dermatitis herpetiformis. Last Myocardial Infarction Date:: 06/2018 History of Any Multi-Drug Resistant Organisms: None Reported Past Surgical History: Cholecystectomy, Heart Catheterization With Stent, Pacemaker, Tonsillectomy Additional Past Surgical History / Comment(s): PCI with STENTS x 3, bilateral cataracts removed with lens implants, colonoscopy. Past Anesthesia/Blood Transfusion Reactions: No Reported Reaction Date of Last Stent Placement:: 2017 Type of Cardiac Device: Permanent Pacemaker Device Placement Date:: 02/02/19 Past Psychological History: No Psychological Hx Reported Smoking Status: Former smoker Past Alcohol Use History: None Reported Past Drug Use History: None Reported - Past Family History Mother Family Medical History: Diabetes Mellitus Father Family Medical History: Myocardial Infarction (MS) Additional Family Medical History / Comment(s): Father had a MS in his 70s. Brother(s) Family Medical History: Myocardial Infarction (MS) Additional Family Medical History / Comment(s): Brother had a MS in his 50s. General Exam Limitations: no limitations General appearance: alert, in no apparent distress Head exam: Present: atraumatic, normocephalic Eye exam: Present: normal appearance, PERRL, EOMI ENT exam: Present: normal exam Neck exam: Present: normal inspection, other (Positive JVD). Absent: tenderness, meningismus Respiratory exam: Present: rales (Bilateral, worse on the right). Absent: respiratory distress Cardiovascular Exam: Present: regular rate, normal rhythm GI/Abdominal exam: Present: soft. Absent: distended, tenderness Extremities exam: Present: pedal edema Neurological exam: Present: alert, oriented X3, CN II-XII intact. Absent: motor sensory deficit Psychiatric exam: Present: normal affect, normal mood Skin exam: Present: warm, dry, intact. Absent: cyanosis, diaphoretic Course Vital Signs 04/07/19 09:53 Temperature 98.2 F Pulse Rate 66 Respiratory 19 Rate Blood Pressure 138/73 O2 Sat by Pulse 93 L Oximetry EKG Findings - EKG Comments: EKG Findings:: EKG: Normal sinus rhythm no ST segment elevation, rate of 62, SD interval 170, QRS duration 96, QTC 438, there is ST segment depression and T- wave inversion in aVL. Medical Decision Making - Medical Decision Making 64-year-old male presenting with worsening dyspnea. History is concerning for heart failure. Exam does reveal decreased breath sounds and rales on the right. X-rays obtained, shows significant worsening of right-sided pleural effusion as well as large infiltrate. This is worsened over the past 6 days. Patient is started on IV antibiotics, IV Lasix. Will be admitted, case discussed with admitting physician. - Lab Data Result diagrams: 04/07/19 10:00 04/07/19 10:00 Lab Results 04/07/19 04/07/19 04/07/19 Range/Units 10:00 10:00 10:00 WBC 7.5 (3.8-10.6) k/uL RBC 3.97 L (4.30-5.90) m/uL Hgb 10.9 L (13.0-17.5) gm/dL Hct 34.7 L (39.0-53.0) % MCV 87.6 (80.0-100.0) fL MCH 27.4 (25.0-35.0) pg MCHC 31.3 (31.0-37.0) g/dL RDW 15.1 (11.5-15.5) % Plt Count 255 (150-450) k/uL Neutrophils % 78 % Lymphocytes % 8 % Monocytes % 9 % Eosinophils % 3 % Basophils % 0 % Neutrophils # 5.9 (1.3-7.7) k/uL Lymphocytes # 0.6 L (1.0-4.8) k/uL Monocytes # 0.7 (0-1.0) k/uL Eosinophils # 0.2 (0-0.7) k/uL Basophils # 0.0 (0-0.2) k/uL PT (9.0-12.0) sec INR (<1.2) APTT (22.0-30.0) sec Sodium 136 L (137-145) mmol/L Potassium 3.9 (3.5-5.1) mmol/L Chloride 99 (98-107) mmol/L Carbon Dioxide 30 (22-30) mmol/L Anion Gap 7 mmol/L BUN 38 H (9-20) mg/dL Creatinine 1.84 H (0.66-1.25) mg/dL Est GFR (CKD-EPI)AfAm 44 (>60 ml/min/1.73 sqM) Est GFR (CKD-EPI)NonAf 38 (>60 ml/min/1.73 sqM) Glucose 186 H (74-99) mg/dL Calcium 8.8 (8.4-10.2) mg/dL Magnesium 1.8 (1.6-2.3) mg/dL Total Bilirubin 0.4 (0.2-1.3) mg/dL AST 39 (17-59) U/L ALT 37 (21-72) U/L Alkaline Phosphatase 116 (38-126) U/L NT-Pro-B Natriuret Pep 4080 pg/mL Total Protein 6.1 L (6.3-8.2) g/dL Albumin 3.4 L (3.5-5.0) g/dL 04/07/19 Range/Units 10:00 WBC (3.8-10.6) k/uL RBC (4.30-5.90) m/uL Hgb (13.0-17.5) gm/dL Hct (39.0-53.0) % MCV (80.0-100.0) fL MCH (25.0-35.0) pg MCHC (31.0-37.0) g/dL RDW (11.5-15.5) % Plt Count (150-450) k/uL Neutrophils % % Lymphocytes % % Monocytes % % Eosinophils % % Basophils % % Neutrophils # (1.3-7.7) k/uL Lymphocytes # (1.0-4.8) k/uL Monocytes # (0-1.0) k/uL Eosinophils # (0-0.7) k/uL Basophils # (0-0.2) k/uL PT 10.9 (9.0-12.0) sec INR 1.0 (<1.2) APTT 27.6 (22.0-30.0) sec Sodium (137-145) mmol/L Potassium (3.5-5.1) mmol/L Chloride (98-107) mmol/L Carbon Dioxide (22-30) mmol/L Anion Gap mmol/L BUN (9-20) mg/dL Creatinine (0.66-1.25) mg/dL Est GFR (CKD-EPI)AfAm (>60 ml/min/1.73 sqM) Est GFR (CKD-EPI)NonAf (>60 ml/min/1.73 sqM) Glucose (74-99) mg/dL Calcium (8.4-10.2) mg/dL Magnesium (1.6-2.3) mg/dL Total Bilirubin (0.2-1.3) mg/dL AST (17-59) U/L ALT (21-72) U/L Alkaline Phosphatase (38-126) U/L NT-Pro-B Natriuret Pep pg/mL Total Protein (6.3-8.2) g/dL Albumin (3.5-5.0) g/dL Disposition Clinical Impression: Pneumonia, CHF (congestive heart failure) Disposition: ADMITTED IP TO THIS HOSP Condition: Stable Is patient prescribed a controlled substance at d/c from ED?: No Referrals: Ivy Valentine DO [Primary Care Provider] - 1-2 days Time of Disposition: 11:33 Decision to Admit Reason: Admit from EC Decision Date: 04/07/19 Decision Time: 11:33
[2019-04-07 10:31] LABS: Albumin 3.4 g/dL (3.5-5.0); Calcium 8.8 mg/dL (8.4-10.2); Magnesium 1.8 mg/dL (1.6-2.3); Potassium 3.9 mmol/L (3.5-5.1); Total Bilirubin 0.4 mg/dL (0.2-1.3); Total Protein 6.1 g/dL (6.3-8.2)
[2019-04-07 10:45] LABS: Partial Thromboplastin Time 27.6 sec (22.0-30.0); Prothrombin Time 10.9 sec (9.0-12.0)
--- NOTE | 2019-04-07 10:53 | XR ---
EXAMINATION TYPE: XR chest 2V DATE OF EXAM: 04/07/2019 HISTORY: difficulty breathing. REFERENCE: Previous study dated 04/01/2019. FINDINGS: There are bilateral effusions, larger on the right than the left. There is right basilar ai rspace disease which has progressed from previous. Heart size is obscured. There is a bipolar pacemak er in place on the left. IMPRESSION: 1. WORSENING RIGHT-SIDED INFILTRATE. 2. BILATERAL PLEURAL EFFUSIONS, GREATER ON THE RIGHT THAN THE LEFT.
[2019-04-07] MEDS ORDERED: ALBUTEROL NEBULIZED 2.5 MG/3 ML INHALATION STA (11:08)
[2019-04-07] MEDS ORDERED: IPRATROPIUM-ALBUTEROL 3 ML NEB INHALATION STA (11:08)
[2019-04-07] MEDS ORDERED: LEVOFLOXACIN 500MG-D5W PMX 500 MG in DEXTROSE/WATER 1 100ML.BAG IVPB STA (11:09)
[2019-04-07] MEDS ORDERED: FUROSEMIDE 10 MG/ML 4 ML VIAL IV STA (11:09)
[2019-04-07] MEDS ORDERED: DEXAMETHASONE SOD PHOSPHATE 10 MG/ML 1 ML VIAL IV STA (11:09)
[2019-04-07] MEDS ORDERED: ACETAMINOPHEN TAB 325 MG TAB PO PRN (11:24)
[2019-04-07] MEDS ORDERED: NALOXONE 0.4 MG/ML 1 ML VIAL IV PRN (11:24)
[2019-04-07 12:06] LABS: Glucose,Whole Blood 212 mg/dL (75-99)
[2019-04-07] MEDS ORDERED: NITROGLYCERIN SL TABS 0.4 MG TAB SUBLINGUAL PRN (13:28)
[2019-04-07] MEDS ORDERED: METOPROLOL TARTRATE 50 MG TAB PO SCH (13:30)
[2019-04-07] MEDS ORDERED: IPRATROPIUM-ALBUTEROL 3 ML NEB INHALATION PRN (13:33)
[2019-04-07] MEDS ORDERED: HYDROcodone/APAP 5-325MG 1 EACH TAB PO PRN (13:33)
[2019-04-07 14:55] LABS: Appearance,Urine Clear (Clear); Bilirubin,Urine Negative (Negative); Blood,Urine Negative (Negative); Color,Urine Light Yellow; Glucose,Urine (UA) 1+ (Negative); Ketones,Urine Negative (Negative); Leukocyte Esterase,Urine Negative (Negative); Nitrite,Urine Negative (Negative); PH, Urine 6.5 (5.0-8.0); Protein,Urine Trace (Negative); Specific Gravity,Urine 1.007 (1.001-1.035); Urobilinogen,Urine <2.0 mg/dL (<2.0)
[2019-04-07] MEDS ORDERED: hydrALAZINE HCL 50 MG TAB PO SCH (16:00)
[2019-04-07] MEDS ORDERED: DILTIAZEM ORAL 30 MG TAB PO SCH (16:00)
[2019-04-07] MEDS: IPRATROPIUM-ALBUTEROL 3 ML NEB INHALATION SCH ×2 (16:19→20:34)
[2019-04-07 17:00] LABS: Glucose,Whole Blood 425 mg/dL (75-99)
[2019-04-07] MEDS: INSULIN ASPART (NovoLOG) 100 UNIT/ML VIAL SQ SCH ×2 (18:04→22:52)
[2019-04-07] MEDS: DILTIAZEM ORAL 30 MG TAB PO SCH (18:06)
[2019-04-07] MEDS: METOPROLOL TARTRATE 50 MG TAB PO SCH (18:09)
[2019-04-07] MEDS: APIXABAN 5 MG TAB PO SCH (18:11)
[2019-04-07 20:49] LABS: Glucose,Whole Blood 391 mg/dL (75-99)
[2019-04-07] MEDS: CLOPIDOGREL 75 MG TAB PO SCH (22:51)
[2019-04-07] MEDS: PRAVASTATIN SODIUM 40 MG TAB PO SCH (22:51)
[2019-04-07] MEDS: MONTELUKAST 10 MG TAB PO SCH (22:52)
[2019-04-07] MEDS: hydrALAZINE HCL 50 MG TAB PO SCH (22:54)
[2019-04-07] MEDS: FLUTICASONE 50MCG/SPRAY NASAL 16GM EA NOSTRIL SCH (23:00)
[2019-04-07] MEDS: INSULIN DETEMIR (LEVEMIR) 100 UNIT/ML SYR SQ SCH (23:00)
--- NOTE | 2019-04-07 23:42 | HP ---
HISTORY AND PHYSICAL DATE OF SERVICE: 04/07/2019 CHIEF COMPLAINT: Shortness of breath and cough and sputum. HISTORY OF PRESENT ILLNESS: This 64-year-old gentleman with a past medical history of multiple medical problems being followed by Dr. Valentine in the outpatient setting was recently admitted to [facility] after ablation of refractory atrial fibrillation with EP studies and pulmonary vein isolation. The patient had some rigors and chills with aspiration from sinus drainage postoperatively and subsequently patient went home. Patient was feeling better, but subsequently patient had increased shortness of breath and some cough and the patient was seen by recordak operator on Monday and the patient was given a dose of intravenous Lasix but because of increased symptoms, patient came to [facility] and was admitted to the hospital for further evaluation and treatment. A chest x-ray was done which showed possible atelectasis pneumonia on the right side with some pleural fluid also and otherwise CHF was also suggested. Patient admitted to the hospital for further evaluation and treatment. NT proBNP was 4080. Blood sugar is also elevated. No history of fever, rigors or chills. No history of headache, loss of consciousness, seizures. PAST MEDICAL HISTORY: History of recent atrial fibrillation with EP study and ablation, history of CAD, history of CHF, COPD, diabetes, GERD, hypertension, hyperlipidemia; myocardial infarction, history of liver disease, prostate disorder, cholecystis, CAD, stent. MEDICATIONS ARE: Home medications, prior to admission include: 1. Hydralazine 100 mg p.o. t.i.d. 2. Restoril 50 mg q.h.s. p.r.n. 3. Zocor 40 mg q.h.s. 4. Protonix 40 mg p.o. daily. 5. Nitrostat 0.4 sublingual mg p.r.n. 6. Singular 10 mg q.h.s. 7. Lopressor 100 mg p.o. b.i.d. 8. Magnesium 300 mg p.o. daily. 9. Claritin 10 mg p.o. daily. 10.Imdur 30 mg q.i.d. 11.Levemir 30 units subcu q.h.s. 12.NovoLog t.i.d. with meals. 13.Lasix 40 mg p.o. daily. 14.Flonase 1 spray b.i.d. 15.Cardizem 90 mg p.o. t.i.d. 16.Plavix 75 mg p.o. q.h.s. 17.Vitamin D 3000 with breakfast. 18.Eliquis 5 mg p.o. b.i.d. 19.Tylenol 500 mg q.4 p.r.n. ALLERGIES: MULTIPLE ALLERGIES: AMOXICILLIN, CEPHALEXIN, CLINDAMYCIN, GLUTEN, PENICILLIN, SULFA, BACTRIM, AMLODIPINE AND CARVEDILOL. FAMILY HISTORY: History of diabetes in the family. SOCIAL HISTORY: Previous history of smoking. Occasional alcohol intake. REVIEW OF SYSTEMS: ENT: No diminished vision. No diminished hearing. CARDIOVASCULAR: No angina or palpitations. Otherwise as mentioned earlier. RESPIRATORY: As mentioned earlier. GI no nausea or vomiting. : No dysuria. NERVOUS SYSTEM: No numbness or weakness. ALLERGY/IMMUNOLOGY: No asthma or hayfever. MUSCULOSKELETAL: As mentioned earlier. HEMATOLOGY/ONCOLOGY: No history of anemia. ENDOCRINE: Diabetes. CONSTITUTIONAL: As mentioned earlier. DERMATOLOGY: Negative. RHEUMATOLOGY: Negative. PSYCHIATRY: As mentioned earlier. PHYSICAL EXAM: Patient is alert, oriented x3. Pulse is 122 irregular, blood pressure 147/70, respiratory rate 16, temperature 97.2, pulse ox 97% on 2 L. HEENT: Conjunctivae normal. Oral mucosa moist. Neck is no jugular venous distention. No carotid bruit. No lymph node enlargement. CARDIOVASCULAR: S1, S2. No S3, no S4. RESPIRATORY: Breath sounds diminished in the bases. Bilateral scattered rhonchi and crackles. ABDOMEN: Soft, nontender. No mass palpable. LEGS: No edema. No swelling. NERVOUS SYSTEM: Higher functions as mentioned earlier. Moves all four extremities. LYMPHATICS: No lymph nodes palpable in the neck, axillae or groin. SKIN: No ulcer, rash or bleeding. JOINTS: No active deforming arthropathy. LABS: WBC 7.2, hemoglobin 10.9, sodium 136, creatinine 1.84, glucose 186, 212. ASSESSMENT: 1. Acute right sided pneumonia possibly gram-negative, possibly healthcare associated pneumonia. 2. Atelectasis in the right lung. 3. Atrial fibrillation, recurrent, paroxysmal. 4. Congestive heart failure acute exacerbation with ejection fraction unknown. 5. Recent acute sinusitis. 6. History of coronary artery disease, stent. 7. History of cholecystectomy. 8. History of chronic obstructive pulmonary disease. 9. Diabetes mellitus type 2. 10.Hypertension. 11. . 12.History of myocardial infarction. 13.History of prostate disorder. 14.Chronic kidney disease stage III. 15.History of liver cirrhosis. 16.History of herniated disc. 17.History of varicose veins bilaterally. 18.Remote history of nicotine dependence. 19.FULL CODE. RECOMMENDATIONS AND DISCUSSION: In this 64-year-old gentleman who presented with multiple complex medical issues, we will monitor the patient closely. Continue the current medications, management and symptomatic treatment. Otherwise, we will initiate broad-spectrum IV antibiotics and follow the cultures. Bronchodilators. Otherwise, I would also recommend incentive spirometry. Closely follow with Dr. Calero and patient also is also. We will also recommend Cardiology consultation for recurrent atrial fibrillation. Otherwise, prognosis guarded because of multiple complex medical issues. Further recommendations to follow. MMODL / IJN: [id number] /
[2019-04-08] MEDS: TEMAZEPAM 15 MG CAP PO PRN ×2 (00:38→23:23)
[2019-04-08 06:32] LABS: Glucose,Whole Blood 271 mg/dL (75-99)
[2019-04-08] MEDS: DILTIAZEM ORAL 30 MG TAB PO SCH ×4 (06:48→18:51)
[2019-04-08] MEDS: hydrALAZINE HCL 50 MG TAB PO SCH ×3 (06:49→21:32)
[2019-04-08] MEDS: APIXABAN 5 MG TAB PO SCH ×2 (06:49→18:50)
[2019-04-08 06:50] LABS: Calcium 8.8 mg/dL (8.4-10.2); Potassium 4.2 mmol/L (3.5-5.1)
[2019-04-08] MEDS: METOPROLOL TARTRATE 50 MG TAB PO SCH ×2 (06:50→18:50)
[2019-04-08] MEDS: INSULIN ASPART (NovoLOG) 100 UNIT/ML VIAL SQ SCH ×4 (06:51→21:33)
[2019-04-08 06:52] LABS: Basophils % (A) 0 %; Eosinophils % (A) 0 %; HCT 32.2 % (39.0-53.0); HGB 10.6 gm/dL (13.0-17.5); Hypochromasia Slight; Lymphocytes # (A) 0.5 k/uL (1.0-4.8); Lymphocytes % (A) 6 %; MCHC 32.8 g/dL (31.0-37.0); MCV 88.2 fL (80.0-100.0); Mean Platelet Volume 8.1; Monocytes # (A) 0.3 k/uL (0-1.0); Monocytes % (A) 4 %; Neutrophils # (A) 6.7 k/uL (1.3-7.7); Neutrophils % (A) 89 %; Platelet Count 223 k/uL (150-450); RBC 3.65 m/uL (4.30-5.90); RDW 15.2 % (11.5-15.5); WBC 7.5 k/uL (3.8-10.6)
[2019-04-08] MEDS: PANTOPRAZOLE 40 MG TABLET PO SCH (06:54)
[2019-04-08] MEDS: IPRATROPIUM-ALBUTEROL 3 ML NEB INHALATION SCH ×5 (07:16→20:26)
[2019-04-08] MEDS ORDERED: FUROSEMIDE 10 MG/ML 4 ML VIAL IV STA (08:10)
[2019-04-08] MEDS: CHOLECALCIFEROL 1,000 UNIT TAB PO SCH (08:25)
[2019-04-08] MEDS: MAGNESIUM OXIDE 400 MG TAB PO SCH (08:26)
[2019-04-08] MEDS: ISOSORBIDE MONONITRATE ER 30 MG TAB.ER.24H PO SCH (08:26)
[2019-04-08] MEDS: LORATADINE 10 MG TAB PO SCH (08:26)
[2019-04-08] MEDS: FLUTICASONE 50MCG/SPRAY NASAL 16GM EA NOSTRIL SCH (08:32)
[2019-04-08] MEDS ORDERED: LEVOFLOXACIN 500MG-D5W PMX 500 MG in DEXTROSE/WATER 1 100ML.BAG IVPB SCH (09:00)
--- NOTE | 2019-04-08 11:31 | US ---
EXAMINATION TYPE: US chest DATE OF EXAM: 04/08/2019 COMPARISON: Radiograph 04/07/2019 CLINICAL HISTORY: 64-year-old male, right chest ultrasound to assess pleural effusion. TECHNIQUE: Targeted ultrasound of the posterior lower right hemithorax FINDINGS: EXAM MEASUREMENTS: Right Pleural Effusion pocket size: 10.5 cm Right skin surface to fluid distance: 2.6 cm Right side marked for possible thoracentesis outside the dept. Pulmonologists are able to review the images in the patient?s EMR. IMPRESSIONS: Moderate sized right pleural effusion demonstrated with markings performed.
--- NOTE | 2019-04-08 11:37 | ECHOF ---
Referral Reason:chf MEASUREMENTS -------- HEIGHT: 175.3 cm WEIGHT: 86.2 kg BP: 139/65 FINDINGS -------- Pt had Ablation Limited Study to R/O Pericardial Effusion. Overall left ventricular systolic function is normal with, an EF between 55 - 60 %. There is a small, generalized pericardial effusion present. CONCLUSIONS -------- 1. Pt had Ablation Limited Study to R/O Pericardial Effusion. 2. Overall left ventricular systolic function is normal with, an EF between 55 - 60 %. 3. There is a small, generalized pericardial effusion present. STERILE PROCESSING TECHNOLOGIST: Denae Blandon RDCS
[2019-04-08 12:07] LABS: Glucose,Whole Blood 352 mg/dL (75-99)
--- NOTE | 2019-04-08 12:22 | CONS ---
CONSULTATION PULMONARY CRITICAL CARE CONSULTATION: DATE OF SERVICE: 04/08/2019 This is a 64-year-old male who presents with shortness of breath. He was here just recently with similar episode of shortness of breath and actually saw my partner, Dr. Frias back in January with a similar episode of shortness of breath secondary to CHG. The patient has a history of chronic kidney disease, chronic atrial fibrillation, CAD and congestive heart failure. He presents with 3 days of orthopnea and paroxysmal nocturnal dyspnea. He also has chronic lower extremity edema. He was given some IV Lasix by his yardage caller last week. That seemed to help a little bit, but he got worse and he decided to come in to be evaluated. He tends to doze himself on Lasix depending on his weight and how much lower extremity edema he has. Looking in his legs, he has got chronic edema of the lower extremities with chronic venous stasis changes. He denies any chest pain or chest discomfort. The patient has a mild cough which is nonproductive. Denies any fever or chills. No nausea, vomiting or diarrhea. No chest pain per se. He looks really comfortable sitting at the bedside. He is not requiring any supplemental oxygen. Going back and looking at his x-rays from January of this year when he was seen by Dr. Frias and March current evaluation, the x-rays look almost identical. It does show a right-sided pleural effusion. . HOME MEDICATIONS: Include insulin, Flonase nasal spray, Pravachol, vitamin D3, Imdur, Protonix, NovoLog insulin, Singulair, Plavix, Lasix, Claritin, magnesium, Lopressor, Restoril, hydralazine, Nitrostat, Cardizem, Tylenol, and Eliquis. ALLERGIES: Are multiple, include AMOXICILLIN, KEFLEX, CLINDAMYCIN, GLUTEN, PENICILLIN, ANTIBIOTICS, SULFA ANTIBIOTICS, BACTRIM, TRIMETHOPRIM, AMLODIPINE, and CARVEDILOL. PAST MEDICAL HISTORY: Positive for atrial fibrillation, CAD, chest pain, heart failure, COPD, diabetes, GERD, hyperlipidemia, hypertension, myocardial infarction, BPH, chronic kidney disease, neuropathy, liver cirrhosis, herniated disc, previous history of asbestos exposure, dermatitis, and celiac disease among other things. SURGICAL HISTORY: Includes heart catheterization, cholecystectomy, stent placement, pacemaker insertion, tonsillectomy, bilateral cataract surgery and colonoscopy. SOCIAL HISTORY: Positive for previous tobacco use. Denies any alcohol or illicit drug use. FAMILY HISTORY: Positive for diabetes and myocardial infarction. REVIEW OF SYSTEMS: CONSTITUTIONAL; Fatigue. NEUROLOGIC: Negative. HEENT: Negative. CARDIOVASCULAR: Orthopnea, paroxysmal nocturnal dyspnea, shortness of breath with decreased exercise capacity. PULMONARY: As above. GI: Negative. : Negative. RHEUMATOLOGIC: Negative. IMMUNOLOGIC: Negative. ENDOCRINOLOGIC: Negative. DERMATOLOGIC: Negative. Current vital signs are reviewed, temperature 97.4, heart rate 83, respiratory rate 20, blood pressure 125/74, mean 91, room air saturation 95%. Appears in no acute distress. HEENT: Examination is grossly unremarkable. Mucous membranes are moist. No supplemental oxygen noted. NECK: Supple. Full range of motion. No adenopathy or thyromegaly. CARDIOVASCULAR: Examination reveals regular rhythm and rate. Heart rate 83. S1, S2 normal. No S3, S4, or murmur. LUNGS: Diminished breath sounds at the right base. A few scattered rhonchi. No wheezes. No crackles. Breath sounds are equal bilaterally except for the slight reduced breath sounds at the right lung base. There is some dullness at the right lung base as well. ABDOMEN: Soft, bowel sounds are heard. EXTREMITIES: Intact. The patient does have some chronic venostasis changes. There is hyperpigmentation. There is chronic lower extremity edema, which is 1+ and pitting. SKIN: Without rash. Save for the rash mentioned above. NEUROLOGIC: Examination is brief but nonfocal. Chest x-ray shows right-sided pleural effusions, right greater than left. There is either a basilar airspace disease or atelectasis at the right base. Ultrasound shows a right-sided pleural effusion. LABS: Reviewed. White count 7.5, hemoglobin 10.6, hematocrit 32.2, platelet count 223,000. Sodium 135, potassium 4.2, chloride is 99, CO2 is 31, anion gap is 5, BUN and creatinine were 47 and 1.89. Urine is negative. N terminal proBNP is 4,080. Medications are reviewed. He is getting updrafts. He is also getting Levaquin. I do not believe he has an infection and probably I will stop that. The rest of his medications seem appropriate. ASSESSMENT: 1. Congestive heart failure with a right-sided pleural effusion. 2. Doubt pneumonia. 3. Diabetes mellitus. 4. Hyperlipidemia. 5. History of atrial fibrillation, status post pacemaker. 6. Coronary artery disease with previous stent placement x3. 7. Angina pectoris. 8. History of heart failure. 9. Possible chronic obstructive pulmonary disease. 10.Diabetes mellitus. 11.Gastroesophageal reflux disease. 12.Hyperlipidemia. 13.History of liver cirrhosis. 14.History of hypertension. 15.Previous myocardial infarction. 16.Benign prostatic hypertrophy. 17.History of chronic kidney disease. 18.Multiple other medical problems and comorbidities. PLAN: The patient should be treated with diuretics. Should the pleural effusion not improved, will we might give consideration to thoracentesis. Obviously we would have to hold the Plavix in the office before that to be to be done. Additional recommendations and suggestions are forthcoming. We will continue to follow closely. His prognosis is guarded. Clinically, he looks very stable. MMXIMENA / KARLA: [id number] /
[2019-04-08] MEDS: FLECAINIDE 50 MG TAB PO SCH ×2 (14:52→21:33)
[2019-04-08 15:14] VITALS: BMI 28.0
[2019-04-08 17:07] LABS: Glucose,Whole Blood 371 mg/dL (75-99)
[2019-04-08 20:31] LABS: Glucose,Whole Blood 224 mg/dL (75-99)
--- NOTE | 2019-04-08 21:10 | PN ---
PROGRESS NOTE DATE OF SERVICE: 04/08/2019 DATE OF SERVICE: This 64-year-old gentleman who was admitted with acute right sided pneumonia possibly and as well as atelectasis also had pleural effusion. The chest ultrasound showed some fluid. Dr. Queen has seen the patient. The patient is on bronchodilators. Dr. Queen has recommended diuretics and insulin and continue to monitor. Otherwise, Cardiology is also on consult. A 2D echo with Doppler was done which showed ejection fraction about 50-60 percent with preserved ejection fraction. A small generalized pericardial effusion was also noted. There is no history of fever, rigors or chills. PAST MEDICAL HISTORY: Reviewed. REVIEW OF SYSTEMS: CARDIOVASCULAR: No angina or palpitations. RESPIRATORY: As mentioned earlier. GI no nausea or vomiting. : No dysuria. CENTRAL NERVOUS SYSTEM: No numbness or weakness. CURRENT MEDICATIONS: Reviewed and include: 1. Tylenol 650 q.6h p.r.n. 2. [place] 5 mg q.6h. 3. DuoNeb q.i.d. and p.r.n. 4. Eliquis 5 mg p.o. b.i.d. 5. Vitamin D3 3000 daily. 6. Plavix 75 mg q.h.s. 7. Cardizem 90 mg p.o. b.i.d. 8. Tambocor 50 mg p.o. b.i.d. 9. Flonase. 10.Lasix 40 mg IV b.i.d. 11.Apresoline 100 mg b.i.d. 12.NovoLog scale. 13.Levemir. 14.Imdur. 15.Levaquin. 17.Magnesium oxide. 18.Lopressor. 19.Singular. 20.Narcan. 21.Nitrostat. 22.Protonix. PHYSICAL EXAM: Patient is alert, oriented x3, pulse 119, blood pressure 109/72, respiratory 20, temp 97.4, pulse ox 97% on room air. HEENT: Conjunctivae normal. NECK: No jugular venous distention. CARDIOVASCULAR: S1, S2 muffled. RESPIRATORY: Breath sounds diminished in the bases. Bilateral scattered rhonchi and crackles. Breath sounds diminished in the right side. ABDOMEN: Soft. Nontender. CENTRAL NERVOUS SYSTEM: No focal deficits. LAB STUDIES: WBC 7.2, hemoglobin 10.6, sodium 130, potassium 4.2, creatinine is 1.89. The baseline creatinine is between 1.8 and 2. ASSESSMENT: 1. Possible acute right sided pneumonia possibly gram-negative, possibly healthcare associated pneumonia. 2. Possible congestive heart failure acute exacerbation, acute on chronic diastolic dysfunction, EF 50 to 60%. 3. Right pleural effusion. 4. Atelectasis of the right lung. 5. Atrial fibrillation, current paroxysmal. 6. Recent acute sinusitis. 7. History of recent ablation for refractory atrial fibrillation. 8. History of coronary artery disease, stent. 9. History of cholecystectomy. 10.History of chronic obstructive pulmonary disease. 11.Diabetes mellitus type 2. 12.Hypertension. 13.History of myocardial infarction. 14.History of prostate disorder. 15.Chronic kidney disease stage III. 16.History of liver cirrhosis. 17.History of herniated disc. 18.History of varicose veins bilaterally. 19.Remote history of nicotine dependence. 20.FULL CODE. RECOMMENDATIONS AND DISCUSSION: I recommend to continue current medications, monitoring, management and symptomatic treatment. Continue with the bronchodilators. Continue with antibiotics. Continue with diuretics. Otherwise, incentive spirometry. A 2D echo with Doppler noted and closely follow with Cardiology and pulmonology. Further recommendations to follow. MMODL / IJN: [id number] / SUNSHINE
[2019-04-08] MEDS: INSULIN DETEMIR (LEVEMIR) 100 UNIT/ML SYR SQ SCH (21:33)
[2019-04-08] MEDS: FUROSEMIDE 10 MG/ML 4 ML VIAL IV SCH (21:33)
[2019-04-08] MEDS: CLOPIDOGREL 75 MG TAB PO SCH (21:33)
[2019-04-08] MEDS: PRAVASTATIN SODIUM 40 MG TAB PO SCH (21:34)
[2019-04-08] MEDS: MONTELUKAST 10 MG TAB PO SCH (21:34)
[2019-04-09 06:11] LABS: Glucose,Whole Blood 265 mg/dL (75-99)
[2019-04-09 06:44] LABS: Basophils % (A) 0 %; Eosinophils % (A) 0 %; HCT 34.2 % (39.0-53.0); HGB 10.2 gm/dL (13.0-17.5); Hypochromasia Slight; Lymphocytes # (A) 0.7 k/uL (1.0-4.8); Lymphocytes % (A) 7 %; MCH 26.7 pg (25.0-35.0); MCHC 29.9 g/dL (31.0-37.0); MCV 89.2 fL (80.0-100.0); Mean Platelet Volume 7.4; Monocytes # (A) 0.5 k/uL (0-1.0); Monocytes % (A) 5 %; Neutrophils # (A) 8.6 k/uL (1.3-7.7); Neutrophils % (A) 86 %; Platelet Count 267 k/uL (150-450); RBC 3.83 m/uL (4.30-5.90); RDW 15.2 % (11.5-15.5); WBC 9.9 k/uL (3.8-10.6)
[2019-04-09] MEDS: hydrALAZINE HCL 50 MG TAB PO SCH ×3 (06:46→21:32)
[2019-04-09] MEDS: METOPROLOL TARTRATE 50 MG TAB PO SCH ×2 (06:47→18:31)
[2019-04-09] MEDS: APIXABAN 5 MG TAB PO SCH ×2 (06:48→18:31)
[2019-04-09] MEDS: INSULIN ASPART (NovoLOG) 100 UNIT/ML VIAL SQ SCH ×6 (06:49→21:34)
[2019-04-09] MEDS: PANTOPRAZOLE 40 MG TABLET PO SCH (06:49)
[2019-04-09] MEDS: DILTIAZEM ORAL 30 MG TAB PO SCH ×3 (06:49→21:33)
[2019-04-09] MEDS: ISOSORBIDE MONONITRATE ER 30 MG TAB.ER.24H PO SCH (06:49)
[2019-04-09 06:53] LABS: Calcium 8.9 mg/dL (8.4-10.2); Potassium 3.8 mmol/L (3.5-5.1)
[2019-04-09] MEDS: IPRATROPIUM-ALBUTEROL 3 ML NEB INHALATION SCH ×5 (08:24→19:57)
[2019-04-09] MEDS ORDERED: FUROSEMIDE 40 MG TAB PO SCH (09:00)
[2019-04-09] MEDS ORDERED: LEVOFLOXACIN 250 MG TAB PO SCH ×2 (09:00→10:40)
--- NOTE | 2019-04-09 09:34 | PN ---
PROGRESS NOTE Mr. Lieberman is a 64-year-old male with a history of coronary artery disease, history of atrial fibrillation, history of permanent pacemaker implantation, recent ablation who presented to the emergency room with symptoms of progressive dyspnea and peripheral edema. He is receiving diuretics. He is feeling better. He is back in what appears to be atrial flutter and was started on flecainide yesterday. He is ambulating without difficulty. He is denying any chest pain. No dizziness. No palpitation. He has lost weight. He underwent an echocardiogram, revealed a preserved systolic function on the ultrasound of the chest. They had evidence of pleural effusion. He continues on Eliquis 5 mg twice a day, Plavix 75 mg daily, diltiazem 90 mg 3 times a day, flecainide 50 mg twice a day, Lasix 40 mg twice a day, hydralazine 100 mg 3 times a day, metoprolol tartrate 100 mg twice a day, Protonix and pravastatin 40 mg daily. PHYSICAL EXAMINATION: Blood pressure 125/70 with a heart rate in 70s. LUNGS: Decreased breath sounds right base. HEART: Irregular, regular. S1, S2. No S3 with systolic murmur, no diastolic murmur, no rub. ABDOMEN: Soft, nontender. EXTREMITIES: +1 edema. LAB DATA: Revealed BUN and creatinine 54, 1.92, potassium 3.8, hemoglobin of 10.2. IMPRESSION: 1. Symptoms of congestive heart failure with preserved systolic function. 2. Atrial fibrillation, status post ablation with evidence to suggest atrial flutter at this point. Start on flecainide. 3. Status post permanent pacemaker implantation. 4. History of coronary artery disease, stable. 5. History of hypertension. 6. Prior history of smoking. 7. Chronic kidney disease. RECOMMENDATION: I will continue on the IV Lasix for another 24 hours, continue rest of his medical regimen. Follow his EKG and depending on his progress, further recommendation will be made. MMODL / IJN: [id number] /
[2019-04-09] MEDS: MAGNESIUM OXIDE 400 MG TAB PO SCH (09:47)
[2019-04-09] MEDS: FLECAINIDE 50 MG TAB PO SCH ×2 (09:47→18:30)
[2019-04-09] MEDS: CHOLECALCIFEROL 1,000 UNIT TAB PO SCH (09:47)
[2019-04-09] MEDS: LORATADINE 10 MG TAB PO SCH (09:48)
[2019-04-09] MEDS: FUROSEMIDE 10 MG/ML 4 ML VIAL IV SCH ×2 (09:48→18:31)
[2019-04-09] MEDS ORDERED: CHOLECALCIFEROL 1,000 UNIT TAB PO SCH (10:37)
[2019-04-09] MEDS ORDERED: CLOPIDOGREL 75 MG TAB PO SCH ×2 (10:38→10:39)
[2019-04-09] MEDS ORDERED: ISOSORBIDE MONONITRATE ER 30 MG TAB.ER.24H PO SCH (10:40)
[2019-04-09] MEDS ORDERED: LORATADINE 10 MG TAB PO SCH (10:41)
[2019-04-09] MEDS ORDERED: MONTELUKAST 10 MG TAB PO SCH (10:42)
[2019-04-09] MEDS ORDERED: MAGNESIUM OXIDE 400 MG TAB PO SCH (10:42)
[2019-04-09] MEDS ORDERED: PRAVASTATIN SODIUM 40 MG TAB PO SCH (10:43)
[2019-04-09] MEDS ORDERED: INSULIN DETEMIR (LEVEMIR) 100 UNIT/ML SYR SQ SCH (10:44)
[2019-04-09] MEDS ORDERED: PANTOPRAZOLE 40 MG TABLET PO SCH (10:45)
--- NOTE | 2019-04-09 10:57 | P.PN ---
Subjective Progress Note Date: 04/09/19 Principal diagnosis: Moderate size right pleural effusion 1 04/09/2018 patient seen in follow-up on selective care unit, he is up and ambulating in his room, he is on room air, in no acute distress, no complaint of chest pain, remains in A. fib with a controlled rate, and she was started on flecainide by cardiology. No complaints of dyspnea, chest ultrasound was completed and showed a right pleural effusion pocket of 10.5 cm, liver no plans for inpatient thoracentesis right now, as the patient is on Plavix, Eliquis. Clinically she is stable, no distress. He is being diuresed, remains on IV Lasix of 40 mg every 12 hours, diuresing, feeling better. Objective - Vital Signs Vital signs: Vital Signs Temp 97.9 F 04/09/19 08:00 Pulse 86 04/09/19 08:34 Resp 18 04/09/19 08:00 BP 135/80 04/09/19 08:00 Pulse Ox 96 04/09/19 08:24 Intake & Output 04/08/19 04/09/19 04/09/19 18:59 06:59 18:59 Intake Total 1060 240 Output Total 550 4050 500 Balance 510 -4050 -260 Weight 86.3 kg 82.7 kg Intake: Intake, IV Titration 100 Amount Levofloxacin 500Mg-D5w 100 Pmx 500 mg In Dextrose/ Water 1 100ml.bag @ 100 mls/hr IVPB Q24HR [facility] Rx# :[id number] Oral 960 240 Output: Urine 550 4050 500 Other: Voiding Method Toilet Toilet # Voids 1 - Exam GENERAL EXAM: Alert, active, comfortable in no apparent distress. HEAD: Normocephalic/atraumatic. EYES: Normal reaction of pupils, equal size. Conjunctiva pink, sclera white. NOSE: Clear with pink turbinates. THROAT: No erythema or exudates. NECK: No masses, no JVD, no thyroid enlargement, no adenopathy. CHEST: No chest wall deformity. Symmetrical expansion. LUNGS: Equal air entry with no crackles, wheeze, rhonchi or dullness. Diminished breath sounds at the right base CVS: Irregular rate and rhythm, normal S1 and S2, no gallops, no murmurs, no rubs ABDOMEN: Soft, nontender. No hepatosplenomegaly, normal bowel sounds, no guarding or rigidity. EXTREMITIES: No clubbing, no edema, no cyanosis, 2+ pulses and upper and lower extremities. MUSCULOSKELETAL: Muscle strength and tone normal. SPINE: No scoliosis or deformity SKIN: No rashes CENTRAL NERVOUS SYSTEM: Alert and oriented -3. No focal deficits, tone is normal in all 4 extremities. PSYCHIATRIC: Alert and oriented -3. Appropriate affect. Intact judgment and insight. - Labs CBC & Chem 7: 04/09/19 05:56 04/09/19 05:56 Labs: Abnormal Lab Results - Last 24 Hours (Table) 04/08/19 04/08/19 04/08/19 Range/Units 11:55 16:57 20:30 RBC (4.30-5.90) m/uL Hgb (13.0-17.5) gm/dL Hct (39.0-53.0) % MCHC (31.0-37.0) g/dL Neutrophils # (1.3-7.7) k/uL Lymphocytes # (1.0-4.8) k/uL BUN (9-20) mg/dL Creatinine (0.66-1.25) mg/dL Glucose (74-99) mg/dL POC Glucose (mg/dL) 352 H 371 H 224 H (75-99) mg/dL 04/09/19 04/09/19 04/09/19 Range/Units 05:56 05:56 06:09 RBC 3.83 L (4.30-5.90) m/uL Hgb 10.2 L (13.0-17.5) gm/dL Hct 34.2 L (39.0-53.0) % MCHC 29.9 L (31.0-37.0) g/dL Neutrophils # 8.6 H (1.3-7.7) k/uL Lymphocytes # 0.7 L (1.0-4.8) k/uL BUN 54 H (9-20) mg/dL Creatinine 1.92 H (0.66-1.25) mg/dL Glucose 245 H (74-99) mg/dL POC Glucose (mg/dL) 265 H (75-99) mg/dL Microbiology - Last 24 Hours (Table) 04/07/19 14:33 Urine Culture - Final Urine,Voided 04/07/19 11:25 Blood Culture - Preliminary Blood No Growth after 24 hours Assessment and Plan Plan: Assessment: #1. Acute exacerbation of congestive heart failure felt dysfunction #2. Chronic atrial fibrillation, status post ablation #3. Permanent pacemaker implantation #4. Coronary artery disease, stable #5. Hypertention #6. History of smoking #7. chronic kidney disease Plan: Continue with IV diuretics, patient is diuresing, no plans for thoracentesis right now, patient is calm and comfortable, no complete shortness of breath, tolerating ablation, he is on room air. Ultrasound of the chest results have been noted, patient remains on the Eliquis and Plavix will continue. From pulmonary perspective patient can probably be discharged home today, follow up on outpatient basis for repeat chest x-ray I performed a history & physical examination of the patient and discussed their management with my nurse practitioner, Jojo Langford. I reviewed the nurse practitioner's note and agree with the documented findings and plan of care. Lung sounds are positive for diminished breaths sounds at the right base. The findings and the impression was discussed with the patient. I attest to the documentation by the nurse practitioner. Time with Patient: Less than 30
[2019-04-09 11:55] LABS: Glucose,Whole Blood 231 mg/dL (75-99)
[2019-04-09 16:23] LABS: Glucose,Whole Blood 263 mg/dL (75-99)
[2019-04-09] MEDS: FLUTICASONE 50MCG/SPRAY NASAL 16GM EA NOSTRIL SCH ×3 (17:28→21:37)
[2019-04-09 17:31] LABS: Glucose,Whole Blood 272 mg/dL (75-99)
--- NOTE | 2019-04-09 20:51 | PN ---
PROGRESS NOTE DATE OF SERVICE: 04/09/2019 This 64-year-old gentleman who was admitted with multiple medical problems, including shortness of breath, has features of pleural effusion and some CHF as well as atelectasis, pneumonia also. The patient is being closely monitored. He was seen by multiple consultants. Cardiology is following the patient closely. Past medical history reviewed. REVIEW OF SYSTEMS: CARDIOVASCULAR SYSTEM: As mentioned earlier. RESPIRATORY SYSTEM: As mentioned earlier. GI: No nausea, vomiting. : No dysuria or retention. NERVOUS SYSTEM: No numbness, weakness. ALLERGY/IMMUNOLOGY: No asthma or hayfever. PHYSICAL EXAMINATION: Patient is alert, oriented x3. Pulse 112, blood pressure 140/90, respiration 18, temperature 97.4, pulse ox 94% on room air. HEENT: Conjunctivae normal. NECK: No jugular venous distention. CARDIOVASCULAR SYSTEM: S1, S2 muffled. RESPIRATORY SYSTEM: Breath sounds diminished at the bases. A few scattered rhonchi and crackles. ABDOMEN: Soft, non-tender. LEGS: No edema. No swelling. NERVOUS SYSTEM: No focal deficit. LABS: WBC 9.9, hemoglobin 10.2. Glucose noted. ASSESSMENT: 1. Possible acute right-sided pneumonia, possibly gram-negative, possibly healthcare- associated pneumonia. 2. History of congestive heart failure, acute exacerbation, with acute on chronic diastolic dysfunction, ejection fraction 50% to 60%. 3. Right pleural effusion. 4. Atelectasis of the right lung. 5. Atrial fibrillation, possibly paroxysmal. 6. Recent acute sinusitis. 7. History of recent ablation for refractory atrial fibrillation. 8. History of coronary artery disease, stent. 9. History of cholecystectomy. 10.History of chronic obstructive pulmonary disease. 11.Diabetes mellitus, type 2. 12.Hypertension. 13.History of myocardial infarction. 14.History of prostate disorder. 15.Chronic kidney disease, stage III. 16.History of liver cirrhosis. 17.History of herniated disc. 18.History of varicose veins bilaterally. 19.Remote history of nicotine dependence. 20.FULL CODE. RECOMMENDATIONS AND DISCUSSION: I recommend to continue current medications, continue with the monitoring, symptomatic treatment. Continue with bronchodilators, steroids, antibiotics. Monitor creatinine closely. Guarded prognosis because of multiple complex medical issues. Further recommendations to follow. MMODL / IJN: [id number] /
[2019-04-09 21:17] LABS: Glucose,Whole Blood 196 mg/dL (75-99)
[2019-04-09] MEDS: TEMAZEPAM 15 MG CAP PO PRN (21:41)
[2019-04-10 06:32] LABS: Glucose,Whole Blood 284 mg/dL (75-99)
[2019-04-10] MEDS: FUROSEMIDE 10 MG/ML 4 ML VIAL IV SCH (06:49)
[2019-04-10] MEDS: FLECAINIDE 50 MG TAB PO SCH (06:50)
[2019-04-10] MEDS: APIXABAN 5 MG TAB PO SCH (06:50)
[2019-04-10] MEDS: METOPROLOL TARTRATE 50 MG TAB PO SCH (06:51)
[2019-04-10] MEDS: DILTIAZEM ORAL 30 MG TAB PO SCH ×2 (06:51→15:24)
[2019-04-10] MEDS: hydrALAZINE HCL 50 MG TAB PO SCH ×2 (06:52→15:24)
[2019-04-10] MEDS: INSULIN ASPART (NovoLOG) 100 UNIT/ML VIAL SQ SCH ×4 (06:52→12:54)
[2019-04-10 07:20] LABS: Basophils % (A) 0 %; Eosinophils # (A) 0.2 k/uL (0-0.7); Eosinophils % (A) 2 %; HCT 32.7 % (39.0-53.0); HGB 10.4 gm/dL (13.0-17.5); Hypochromasia Slight; Lymphocytes # (A) 1.1 k/uL (1.0-4.8); Lymphocytes % (A) 13 %; MCH 28.1 pg (25.0-35.0); MCHC 31.9 g/dL (31.0-37.0); MCV 88.2 fL (80.0-100.0); Mean Platelet Volume 7.8; Monocytes # (A) 0.6 k/uL (0-1.0); Monocytes % (A) 7 %; Neutrophils # (A) 6.4 k/uL (1.3-7.7); Neutrophils % (A) 76 %; Platelet Count 261 k/uL (150-450); RBC 3.71 m/uL (4.30-5.90); RDW 14.7 % (11.5-15.5); WBC 8.3 k/uL (3.8-10.6)
[2019-04-10 07:42] LABS: Calcium 8.7 mg/dL (8.4-10.2); Potassium 4.1 mmol/L (3.5-5.1)
[2019-04-10] MEDS: IPRATROPIUM-ALBUTEROL 3 ML NEB INHALATION SCH ×3 (08:31→16:11)
[2019-04-10 09:08] VITALS: RESP 18
[2019-04-10] MEDS: FLUTICASONE 50MCG/SPRAY NASAL 16GM EA NOSTRIL SCH (11:44)
[2019-04-10 11:49] VITALS: BP 129/66; TEMP 97.4
[2019-04-10 12:18] LABS: Glucose,Whole Blood 102 mg/dL (75-99)
--- NOTE | 2019-04-10 13:12 | P.PN ---
Subjective Progress Note Date: 04/10/19 This is a 64-year-old gentleman who follows with Dr. Morgan in the office. He has past medical history significant for chronic persistent atrial fibrillation and recently underwent an ablation procedure by Dr. Fitch. Also has history of coronary artery disease with prior PCI, hypertension, h yperlipidemia, prior pacemaker implantation. Patient was just recently discharged on April 03. Since his discharge home, he states that he's been having some episodes of shortness of breath. According to him, he was sleeping up in the chair because of the went to lie flat he couldn't breathe. He spoke with marcelo the nurse practitioner the office, went to see her on Monday and had a Lasix IV injection. The next couple of nights did fairly well, but again felt himself to be short of breath, denies any fever or chills, no productive cough, came to the emergency room for further evaluation and treatment. Chest x-ray in the emergency room showed a worsening right-sided infiltrate with bilateral effusions right greater than the left and for this reason the patient was admitted to the hospital. He was initially admitted to the fourth floor, went into atrial fibrillation with rapid ventricular response and was transferred to the cardiac unit. His admission EKG here shows normal sinus rhythm with no acute changes. This morning patient continues to be in normal sinus rhythm. Blood pressure 138/60 with a heart rate in the 80s, 84% on room air. White blood cell count is normal, hemoglobin 10.6, platelet count 223. Sodium 135, potassium 4.2, BUN 47 and creatinine 1.8. BNP level and 4080. Patient was initiated on IV antibiotics for possible pneumonia and given a one-time dose of IV Lasix in the emergency room. At the time of my examination, he is sitting up in his chair, breathing is stable, no palpitations. 04/10/2019 Patient seen and examined this morning, up ambulating in the hallway, asymptomatic. Appears that the patient may be in atrial flutter this morning with a controlled ventricular response. Continue to diurese well on IV Lasix. His BUN today is 58 with a creatinine of 2.1. From our perspective, we'll discontinue the IV Lasix today and change patient over to oral diuretics.He may be able to be discharged home today from our perspective. Objective - Vital Signs Vital signs: Vital Signs Temp 97.4 F L 04/10/19 11:45 Pulse 70 04/10/19 11:47 Resp 18 04/10/19 11:45 BP 129/66 04/10/19 11:45 Pulse Ox 98 04/10/19 11:45 Intake & Output 04/09/19 04/10/19 04/10/19 18:59 06:59 18:59 Intake Total 290 480 Output Total 1075 1200 700 Balance -785 -1200 -220 Weight 81.4 kg Intake: Oral 290 480 Output: Urine 1075 1200 700 Other: Voiding Method Toilet Toilet Toilet # Voids 1 - Exam PHYSICAL EXAMINATION: GENERAL: 64-year-old gentleman in no acute distress at the time of my examination HEENT: Head is atraumatic, normocephalic. Pupils equal, round. Sclera anicteric. Conjunctiva are clear. Mucous membranes of the mouth are moist. Neck is supple. There is no elevated jugular venous pressure. No carotid bruit is heard. HEART EXAMINATION: Heart S1 and S2 irregularly irregular a systolic murmur is heard CHEST EXAMINATION: Lungs are clear to auscultation and precussion. No chest wall tenderness is noted on palpation or with deep breathing. ABDOMEN: Soft, nontender. Bowel sounds are heard. No organomegaly noted. EXTREMITIES: 2+ peripheral pulses with no evidence of peripheral edema and no calf tenderness noted. NEUROLOGIC patient is awake, alert and oriented 3 . . - Labs CBC & Chem 7: 04/10/19 06:27 04/10/19 06:27 Labs: Abnormal Lab Results - Last 24 Hours (Table) 04/09/19 04/09/19 04/09/19 Range/Units 16:22 17:28 21:16 RBC (4.30-5.90) m/uL Hgb (13.0-17.5) gm/dL Hct (39.0-53.0) % Carbon Dioxide (22-30) mmol/L BUN (9-20) mg/dL Creatinine (0.66-1.25) mg/dL Glucose (74-99) mg/dL POC Glucose (mg/dL) 263 H 272 H 196 H (75-99) mg/dL 04/10/19 04/10/19 04/10/19 Range/Units 06:26 06:27 06:27 RBC 3.71 L (4.30-5.90) m/uL Hgb 10.4 L (13.0-17.5) gm/dL Hct 32.7 L (39.0-53.0) % Carbon Dioxide 32 H (22-30) mmol/L BUN 58 H (9-20) mg/dL Creatinine 2.19 H (0.66-1.25) mg/dL Glucose 258 H (74-99) mg/dL POC Glucose (mg/dL) 284 H (75-99) mg/dL 04/10/19 Range/Units 12:16 RBC (4.30-5.90) m/uL Hgb (13.0-17.5) gm/dL Hct (39.0-53.0) % Carbon Dioxide (22-30) mmol/L BUN (9-20) mg/dL Creatinine (0.66-1.25) mg/dL Glucose (74-99) mg/dL POC Glucose (mg/dL) 102 H (75-99) mg/dL Microbiology - Last 24 Hours (Table) 04/07/19 11:25 Blood Culture - Preliminary Blood No Growth after 48 hours Assessment and Plan Plan: Assessment and plan #1 systolic congestive heart failure acute on chronic #2 recent atrial fibrillation ablation #3 atypical atrial flutter #4 prior pacemaker implantation #5 stable coronary artery disease #6 hypertension #7 nicotine dependence #8 chronic kidney disease We will discontinue the IV Lasix, put the patient on Lasix 40 mg by mouth twice a day. Continue with flecainide 100 mg by mouth twice a day patient may be able to be discharged home today from our perspective ,[facility] one [facility]. DNP note has been reviewed, I agree with a documented findings and plan of care. Patient was seen and examined.
--- NOTE | 2019-04-10 14:58 | P.PN ---
Subjective Progress Note Date: 04/10/19 Principal diagnosis: Moderate size right pleural effusion 1 04/09/2018 patient seen in follow-up on selective care unit, he is up and ambulating in his room, he is on room air, in no acute distress, no complaint of chest pain, remains in A. fib with a controlled rate, and she was started on flecainide by cardiology. No complaints of dyspnea, chest ultrasound was completed and showed a right pleural effusion pocket of 10.5 cm, liver no plans for inpatient thoracentesis right now, as the patient is on Plavix, Eliquis. Clinically she is stable, no distress. He is being diuresed, remains on IV Lasix of 40 mg every 12 hours, diuresing, feeling better. On 04/10/2017 patient seen in follow-up on selective care unit, he sitting up in the chair, in no acute distress. He has been transitioned to oral Lasix, he means in atrial flutter with the controlled ventricular response, patient has been started on flecainide by cardiology. He has been cleared for discharge by cardiology, from pulmonary perspective patient remains stable, no acute issues overnight, no cough or congestion, laboratory data for today has been reviewed. No new chest x-rays today. No acute issues overnight, he is cleared by cardiology, and he is cleared from our standpoint as well for discharge today. Objective - Vital Signs Vital signs: Vital Signs Temp 97.4 F L 04/10/19 11:45 Pulse 70 04/10/19 11:47 Resp 18 04/10/19 11:45 BP 129/66 04/10/19 11:45 Pulse Ox 98 04/10/19 11:45 Intake & Output 04/09/19 04/10/19 04/10/19 18:59 06:59 18:59 Intake Total 290 480 Output Total 1075 1200 700 Balance -785 -1200 -220 Weight 81.4 kg Intake: Oral 290 480 Output: Urine 1075 1200 700 Other: Voiding Method Toilet Toilet Toilet # Voids 1 - Exam GENERAL EXAM: Alert, active, comfortable in no apparent distress. HEAD: Normocephalic/atraumatic. EYES: Normal reaction of pupils, equal size. Conjunctiva pink, sclera white. NOSE: Clear with pink turbinates. THROAT: No erythema or exudates. NECK: No masses, no JVD, no thyroid enlargement, no adenopathy. CHEST: No chest wall deformity. Symmetrical expansion. LUNGS: Equal air entry with no crackles, wheeze, rhonchi or dullness. Diminished breath sounds at the right base CVS: Irregular rate and rhythm, normal S1 and S2, no gallops, no murmurs, no rubs ABDOMEN: Soft, nontender. No hepatosplenomegaly, normal bowel sounds, no guarding or rigidity. EXTREMITIES: No clubbing, no edema, no cyanosis, 2+ pulses and upper and lower extremities. MUSCULOSKELETAL: Muscle strength and tone normal. SPINE: No scoliosis or deformity SKIN: No rashes CENTRAL NERVOUS SYSTEM: Alert and oriented -3. No focal deficits, tone is normal in all 4 extremities. PSYCHIATRIC: Alert and oriented -3. Appropriate affect. Intact judgment and insight. - Labs CBC & Chem 7: 04/10/19 06:27 04/10/19 06:27 Labs: Abnormal Lab Results - Last 24 Hours (Table) 04/09/19 04/09/19 04/09/19 Range/Units 16:22 17:28 21:16 RBC (4.30-5.90) m/uL Hgb (13.0-17.5) gm/dL Hct (39.0-53.0) % Carbon Dioxide (22-30) mmol/L BUN (9-20) mg/dL Creatinine (0.66-1.25) mg/dL Glucose (74-99) mg/dL POC Glucose (mg/dL) 263 H 272 H 196 H (75-99) mg/dL 04/10/19 04/10/19 04/10/19 Range/Units 06:26 06:27 06:27 RBC 3.71 L (4.30-5.90) m/uL Hgb 10.4 L (13.0-17.5) gm/dL Hct 32.7 L (39.0-53.0) % Carbon Dioxide 32 H (22-30) mmol/L BUN 58 H (9-20) mg/dL Creatinine 2.19 H (0.66-1.25) mg/dL Glucose 258 H (74-99) mg/dL POC Glucose (mg/dL) 284 H (75-99) mg/dL 04/10/19 Range/Units 12:16 RBC (4.30-5.90) m/uL Hgb (13.0-17.5) gm/dL Hct (39.0-53.0) % Carbon Dioxide (22-30) mmol/L BUN (9-20) mg/dL Creatinine (0.66-1.25) mg/dL Glucose (74-99) mg/dL POC Glucose (mg/dL) 102 H (75-99) mg/dL Microbiology - Last 24 Hours (Table) 04/07/19 11:25 Blood Culture - Preliminary Blood No Growth after 72 hours Assessment and Plan Plan: Assessment: #1. Acute exacerbation of congestive heart failure with diastolic dysfunction #2. Chronic atrial fibrillation, status post ablation #3. Permanent pacemaker implantation #4. Coronary artery disease, stable #5. Hypertention #6. History of smoking #7. chronic kidney disease Plan: Patient remains stable, no complaints of chest pain, completed some shortness of breath, tolerating ablation, maintaining good oxygenation on room air, from pulmonary perspective patient is stable for discharge home today, doubt underlying possibility of pneumonia, nevertheless patient can be sent home on a short course of oral antibiotics, continue with the diuretics per cardiology recommendation. I performed a history & physical examination of the patient and discussed their management with my nurse practitioner, Jojo Langford. I reviewed the nurse practitioner's note and agree with the documented findings and plan of care. Lung sounds are positive for diminished breaths sounds at the right base. The findings and the impression was discussed with the patient. I attest to the documentation by the nurse practitioner. Time with Patient: Less than 30
[2019-04-10] MEDS ORDERED: FUROSEMIDE 40 MG TAB PO SCH (16:00)
[2019-04-10 16:14] VITALS: PULSE 72
--- NOTE | 2019-04-11 09:01 | DS ---
DISCHARGE SUMMARY DATE OF SERVICE: 04/10/2019 FINAL DIAGNOSES: 1. Possible acute right-sided pneumonia, possibly gram-negative, possible healthcare- associated pneumonia, improved. 2. History of congestive heart failure acute exacerbation, acute on chronic diastolic dysfunction, ejection fraction 55% to 60%. 3. Right pleural effusion. 4. Renal failure, acute on chronic with renal component. 5. Atelectasis of the right lung. 6. Atrial fibrillation, possibly paroxysmal. 7. History of recent acute sinusitis. 8. History of recent ablation for refractory atrial fibrillation. 9. History of coronary artery disease, stent. 10.History of cholecystectomy. 11.History of chronic obstructive pulmonary disease. 12.Diabetes mellitus type 2. 13.Hypertension. 14.History myocardial infarction. 15.History of prostate disorder. 16.History of chronic kidney disease stage III. 17.History of liver cirrhosis. 18.History of herniated disc. 19.History of varicose veins, bilaterally. 20.Remote history of nicotine dependence. 21.FULL CODE. DISCHARGE DISPOSITION: The patient will be discharged in a stable condition with guarded prognosis. HISTORY OF PRESENT ILLNESS: This is a 64-year-old gentleman with the past medical history of multiple medical problems was admitted with suspicion of pneumonia. Patient also had atelectasis and CHF, also. Patient was treated with empiric antibiotics, bronchodilators and as well as diuretics. Patient improved significantly. Pulmonary and Cardiology saw the patient. The patient discharged in stable condition with guarded prognosis. The patient also had chest ultrasound which showed some fluid, but however Dr. Queen would like to continue the conservative line of management. Patient will be discharged with the following advice and medications: On exam, vital signs are stable. CARDIOVASCULAR: S1, S2. RESPIRATORY: A few scattered rhonchi. ABDOMEN: Soft. NERVOUS SYSTEM: No focal deficits. Diet is regular. Activity limited until followup. MEDICATIONS ARE: 1. Claritin 10 mg p.o. daily. 2. Flonase 1 spray b.i.d. 3. Imdur 30 mg p.o. daily. 4. Levemir 30 units subcu q.h.s. 5. Lopressor 100 mg p.o. b.i.d. 6. Magnesium 300 mg p.o. daily. 7. NovoLog a.c. and at bedtime scale. 8. Plavix 75 mg q.h.s. 9. Pravachol 40 mg p.o. q.h.s. 10.Protonix 40 mg p.o. daily. 11.Restoril 50 mg q.h.s. p.r.n. 12.Singulair 10 mg p.o. q.h.s. 13.Vitamin D3 three thousand p.o. breakfast. 14.Apresoline 100 mg p.o. t.i.d. 15.Cardizem 90 mg p.o. t.i.d. 16.DuoNeb 3 mL q.i.d. 17.Eliquis 5 mg p.o. b.i.d. 18.Lasix 40 mg p.o. b.i.d. 19.Levaquin 250 mg p.o. daily next. 20.Nitrostat 0.4 sublingual p.r.n. 21.Tambocor 50 mg p.o. b.i.d. 22.Tylenol 500 mg p.o. b.i.d. Follow up labs in the outpatient setting. Follow up with Dr. Valentine as advised. Follow up with Dr. Queen as advised. Follow up with manager plumbing as advised. Once again, patient discharged in stable condition with guarded prognosis. MMODL / IJN: [id number] /
== END 2019-04-10 18:07 | disposition home or self-care (01) | DRG 291 ==
LOC: EC 09:50 → 3NMEDONC 11:28 → 4MS4W 11:54 → 3SCARD 20:31 → OBSVTOIN 04-09 08:02 → 3SCARD 04-09 19:31 → 3NMEDONC 04-09 19:31
PROVIDERS: ADMIT Internal Medicine; ATTEND Internal Medicine
DX: I13.0 Hypertensive heart and chronic kidney disease with heart failure and stage 1 through stage 4 chronic kidney disease, or unspecified chronic kidney disease (principal); I50.43 Acute on chronic combined systolic (congestive) and diastolic (congestive) heart failure; J15.6 Pneumonia due to other Gram-negative bacteria; I31.3 Pericardial effusion (noninflammatory); I48.1 Persistent atrial fibrillation; I48.4 Atypical atrial flutter; J44.0 Chronic obstructive pulmonary disease with (acute) lower respiratory infection; J98.11 Atelectasis; N17.9 Acute kidney failure, unspecified; E11.22 Type 2 diabetes mellitus with diabetic chronic kidney disease; E78.5 Hyperlipidemia, unspecified; Z87.891 Personal history of nicotine dependence; I25.119 Atherosclerotic heart disease of native coronary artery with unspecified angina pectoris; I25.2 Old myocardial infarction; I48.2 Chronic atrial fibrillation; I87.8 Other specified disorders of veins; Y95 Nosocomial condition; K21.9 Gastro-esophageal reflux disease without esophagitis; K74.60 Unspecified cirrhosis of liver; K90.0 Celiac disease; N18.3 Chronic kidney disease, stage 3 (moderate); N40.0 Benign prostatic hyperplasia without lower urinary tract symptoms; Z77.090 Contact with and (suspected) exposure to asbestos; Z79.01 Long term (current) use of anticoagulants; Z79.02 Long term (current) use of antithrombotics/antiplatelets; Z79.4 Long term (current) use of insulin; Z79.899 Other long term (current) drug therapy; Z82.49 Family history of ischemic heart disease and other diseases of the circulatory system; Z83.3 Family history of diabetes mellitus; Z90.49 Acquired absence of other specified parts of digestive tract; Z95.0 Presence of cardiac pacemaker; Z95.5 Presence of coronary angioplasty implant and graft; Z98.42 Cataract extraction status, left eye; Z98.41 Cataract extraction status, right eye; Z96.1 Presence of intraocular lens; Z88.1 Allergy status to other antibiotic agents; Z88.0 Allergy status to penicillin; Z88.2 Allergy status to sulfonamides; Z88.8 Allergy status to other drugs, medicaments and biological substances
CPT/HCPCS: 36415; 71046; 76604; 80048; 80053; 81003; 83735; 83880; 85025; 85610; 85730; 87040; 87086; 93005; 93308; 94640; 94760; 96365; 96375; 99285

== ENCOUNTER → 2019-05-02 | Outpatient (CLI) | payer MEDICARE ==
--- NOTE | 2019-05-02 14:31 | US ---
EXAMINATION TYPE: US chest DATE OF EXAM: 05/02/2019 COMPARISON: NONE CLINICAL HISTORY: J90 PLEURAL EFFUSION. TECHNIQUE: Targeted ultrasound of the posterior lower bilateral hemithoraces EXAM MEASUREMENTS: Right Pleural Effusion pocket size: 3.5 cm Right skin surface to fluid distance: 8.5 cm No pleural fluid is seen on the left. Pulmonologists are able to review the images in the patient?s EMR. IMPRESSIONS: Small right pleural effusion.
== END | disposition home or self-care (01) ==
LOC: RADUSWWP 13:51
PROVIDERS: ATTEND Family Medicine
DX: J90 Pleural effusion, not elsewhere classified (principal)
CPT/HCPCS: 76604

== ENCOUNTER 2019-06-14 19:17 | Observation (INO) | payer MEDICARE ==
[2019-06-14] MEDS ORDERED: IPRATROPIUM-ALBUTEROL 3 ML NEB INHALATION STA (20:49)
[2019-06-14] MEDS ORDERED: NITROGLYCERIN OINT 1 INCH/GM PACKET TOPICAL STA (20:49)
[2019-06-14 21:26] LABS: Anisocytosis Slight; Basophils % (A) 0 %; Eosinophils # (A) 0.1 k/uL (0-0.7); Eosinophils % (A) 1 %; HCT 34.7 % (39.0-53.0); HGB 10.8 gm/dL (13.0-17.5); Hypochromasia Slight; Lymphocytes # (A) 0.9 k/uL (1.0-4.8); Lymphocytes % (A) 6 %; MCH 24.6 pg (25.0-35.0); MCHC 31.3 g/dL (31.0-37.0); MCV 78.9 fL (80.0-100.0); Mean Platelet Volume 7.5; Microcytosis Slight; Monocytes % (A) 7 %; Neutrophils # (A) 11.5 k/uL (1.3-7.7); Neutrophils % (A) 84 %; Platelet Count 241 k/uL (150-450); RDW 16.2 % (11.5-15.5); WBC 13.6 k/uL (3.8-10.6)
[2019-06-14 21:33] LABS: Appearance,Urine Clear (Clear); Bilirubin,Urine Negative (Negative); Blood,Urine Negative (Negative); Color,Urine Light Yellow; Glucose,Urine (UA) 3+ (Negative); Ketones,Urine Negative (Negative); Leukocyte Esterase,Urine Negative (Negative); Nitrite,Urine Negative (Negative); PH, Urine 7.5 (5.0-8.0); Protein,Urine Trace (Negative); Specific Gravity,Urine 1.007 (1.001-1.035); Urobilinogen,Urine <2.0 mg/dL (<2.0)
[2019-06-14 21:40] LABS: Partial Thromboplastin Time 24.9 sec (22.0-30.0); Prothrombin Time 10.4 sec (9.0-12.0)
[2019-06-14 21:43] LABS: Albumin 4.2 g/dL (3.5-5.0); Calcium 9.2 mg/dL (8.4-10.2); Magnesium 1.9 mg/dL (1.6-2.3); Potassium 4.3 mmol/L (3.5-5.1); Total Bilirubin 0.3 mg/dL (0.2-1.3)
[2019-06-14] MEDS ORDERED: ACETAMINOPHEN TAB 325 MG TAB PO STA (22:46)
--- NOTE | 2019-06-14 23:02 | XR ---
EXAM: XR Chest, 2 Views CLINICAL HISTORY: ITS.REASON XR Reason: Chest Pain TECHNIQUE: Frontal and lateral views of the chest. COMPARISON: Chest radiographs 04/01/2019. FINDINGS: Lungs: Unremarkable. No consolidation. Pleural space: Unremarkable. No pneumothorax. Heart: Unremarkable. No cardiomegaly. Mediastinum: Unremarkable. Bones/joints: Degenerative change in the spine. Tubes, lines and devices: Cardiac pacing device. Upper abdomen: Asymmetric elevation of the right hemidiaphragm, unchanged. IMPRESSION: No acute cardiopulmonary abnormality.
--- NOTE | 2019-06-14 23:32 | ED ---
Chest Pain HPI - General Chief Complaint: Chest Pain Stated Complaint: Chest pain Source: patient, family Limitations: no limitations - History of Present Illness Initial Comments: The patient is a 64-year-old male with past medical history of coronary artery disease and A. fib who presents to the emergency room with reported chest pain. Patient states that his pain began around noon today. He states that it is a substernal chest pain graded 6 out of 10 without radiation. He describes it as a pressure sensation. He denies ripping or tearing sensation to his back. He does have associated shortness of breath. Patient states that he had similar symptoms approximately 2 months ago when he was diagnosed with bronchitis. He was placed on steroids at that time and a Z-Rock and had improvement in his symptoms. He does have a history of COPD. He doesn't currently smoke. States he's been doing nebulizer treatments at home without improvement in his symptoms. He is on A[place]quist and Plavix. He denies missing any doses. He does see Dr. Morgan for cardiology. Last cath was in June of last year for which she did receive a stent. He denies any associated nausea, vomiting or diaphoresis. He denies any back or flank pain. No abdominal pain or changes in his bowel or bladder habits. No reported fevers or chills. Denies productive cough or hemoptysis. There are no alleviating, precipitating or modifying factors - Related Data Home Medications Medication Instructions Recorded Confirmed Insulin Detemir (Levemir) [Levemir] 34 unit SQ HS 08/18/14 06/15/19 Fluticasone Nasal [place] [Flonase 1 spray EA NOSTRIL BID 05/12/16 06/15/19 Nasal [place]] Pravastatin Sodium [Pravachol] 40 mg PO HS 12/06/17 06/15/19 Cholecalciferol [Vitamin D3 (25 3,000 unit PO PC-BRKFST 08/26/18 06/15/19 Mcg = 1000 Iu)] Isosorbide Mononitrate ER [Imdur] 30 mg PO DAILY 01/16/19 06/15/19 Pantoprazole [Protonix] 40 mg PO DAILY 01/16/19 06/15/19 INSULIN ASPART (NovoLOG) [NovoLOG See Protocol SQ TID-W/MEALS 02/12/19 06/15/19 (formulary)] Montelukast [Singulair] 10 mg PO HS 02/12/19 06/15/19 Clopidogrel [Plavix] 75 mg PO HS 02/15/19 06/15/19 Loratadine [Claritin] 10 mg PO DAILY 03/28/19 06/15/19 Magnesium. 300 mg PO DAILY 03/28/19 06/15/19 Metoprolol Tartrate [Lopressor] 100 mg PO BID 03/28/19 06/15/19 Ipratropium-Albuterol Nebulize 3 ml INHALATION RT-QID PRN 06/12/19 06/15/19 [Duoneb 0.5 mg-3 mg/3 ml Soln] Previous Rx's Medication Instructions Recorded hydrALAZINE HCL [Apresoline] 100 mg PO TID #90 tab 06/07/18 Nitroglycerin Sl Tabs [Nitrostat] 0.4 mg SUBLINGUAL Q5M PRN #25 tab 06/28/18 Diltiazem Oral [Cardizem*] 90 mg PO TID #90 tab 02/14/19 Apixaban [Eliquis] 5 mg PO BID #60 tab 04/03/19 Flecainide [Tambocor] 50 mg PO Q12HR@0700,1900 #60 tab 04/10/19 Furosemide [Lasix] 40 mg PO BID@0900,1600 #60 tab 04/10/19 Allergies Allergy/AdvReac Type Severity Reaction Status Date / Time amoxicillin Allergy Anaphylaxis Verified 06/15/19 01:22 cephalexin monohydrate Allergy Rash/Hives Verified 06/15/19 01:22 [From Keflex] clindamycin Allergy Rash/Hives Verified 06/15/19 01:22 Penicillins Allergy Rash/Hives Verified 06/15/19 01:22 Sulfa (Sulfonamide Allergy Anaphylaxis Verified 06/15/19 01:22 Antibiotics) sulfamethoxazole Allergy Anaphylaxis Verified 06/15/19 01:22 [From Bactrim] trimethoprim [From Bactrim] Allergy Anaphylaxis Verified 06/15/19 01:22 amlodipine AdvReac Swelling Verified 06/15/19 01:22 carvedilol AdvReac "MAKES ME Verified 06/15/19 01:22 JERILYN" Review of Systems ROS Statement: Those systems with pertinent positive or pertinent negative responses have been documented in the HPI. ROS Other: All systems not noted in ROS Statement are negative. EKG Findings - EKG Comments: EKG Findings:: EKG demonstrates a sinus rhythm with a ventricular rate 75. MT interval 190. QRS 114. QTc 460. There is J-point elevation in leads V2 through V6. There is also inverted T waves in 1 and aVL. This is compared to patient's previous EKG and is similar nature. Past Medical History Past Medical History: Atrial Fibrillation, Coronary Artery Disease (CAD), Chest Pain / Angina, Heart Failure, COPD, Diabetes Mellitus, GERD/Reflux, Hyperlipidemia, Hypertension, Liver Disease, Myocardial Infarction (GA), Pro state Disorder, Renal Disease, Skin Disorder Additional Past Medical History / Comment(s): Neuropathy bilateral feet, stage III chronic kidney disease, chronic CHF, liver cirrhosis, BPH, DJD, herniated discs low back, chronic low back pain, varicose veins bilaterally, anemia, past asbestos exposure, celiac disease, dermatitis herpetiformis. Last Myocardial Infarction Date:: 06/2018 History of Any Multi-Drug Resistant Organisms: None Reported Past Surgical History: Cholecystectomy, Heart Catheterization With Stent, Pacemaker, Tonsillectomy Additional Past Surgical History / Comment(s): PCI with STENTS x 3, bilateral cataracts removed with lens implants, colonoscopy. Past Anesthesia/Blood Transfusion Reactions: No Reported Reaction Date of Last Stent Placement:: 2017 Type of Cardiac Device: Permanent Pacemaker Device Placement Date:: 02/02/19 Past Psychological History: No Psychological Hx Reported Smoking Status: Former smoker Past Alcohol Use History: None Reported Past Drug Use History: None Reported - Past Family History Mother Family Medical History: Diabetes Mellitus Father Family Medical History: Myocardial Infarction (GA) Additional Family Medical History / Comment(s): Father had a GA in his 70s. Brother(s) Family Medical History: Myocardial Infarction (GA) Additional Family Medical History / Comment(s): Brother had a GA in his 50s. General Exam Limitations: no limitations Course Vital Signs 06/14/19 06/14/19 06/14/19 19:27 21:21 21:26 Temperature 98.5 F Pulse Rate 80 64 66 Respiratory 20 Rate Blood Pressure 168/87 O2 Sat by Pulse 96 Oximetry 06/15/19 00:11 Temperature Pulse Rate 82 Respiratory 16 Rate Blood Pressure 143/75 O2 Sat by Pulse 95 Oximetry Chest Pain MDM - MDM On arrival the patient is placed into room 13. He is hooked up to continuous pulse ox and cardiac monitoring. A 12-lead EKG is performed which demonstrates a normal sinus rhythm at this time. The patient was given a DuoNeb breathing treatment, 60 mg of prednisone and Nitropaste. I did conduct laboratory studies the patient was sent for chest x-ray. Upon return results I did discuss with the patient. I did discuss the diagnosis, differential and treatment options. The patient does have a leukocytosis at this time however there are no concerning signs for pneumonia. I did recommend hospital admission to continue to trend the patient's troponins and have a cardiology evaluation. The patient is scheduled for a ablation on Monday I do feel it is imperative that his cardio disorder where of his chest pain. We will continue do breathing treatments. Also continue steroids in the patient. The patient remained in stable condition and was transferred to the floor. Disposition Clinical Impression: Chest pain, Shortness of breath Disposition: ADMITTED IP TO THIS HOSP Condition: Stable Is patient prescribed a controlled substance at d/c from ED?: No Decision to Admit Reason: Admit from EC Decision Date: 06/14/19 Decision Time: 23:33
[2019-06-14] MEDS ORDERED: predniSONE 20 MG TAB PO STA (23:33)
[2019-06-14] MEDS ORDERED: NALOXONE 0.4 MG/ML 1 ML VIAL IV PRN (23:35)
[2019-06-14] MEDS ORDERED: INSULIN DETEMIR (LEVEMIR) 100 UNIT/ML SYR SQ SCH (23:45)
[2019-06-14] MEDS ORDERED: CLOPIDOGREL 75 MG TAB PO SCH (23:45)
[2019-06-14] MEDS ORDERED: MONTELUKAST 10 MG TAB PO SCH (23:45)
[2019-06-14] MEDS ORDERED: PRAVASTATIN SODIUM 40 MG TAB PO SCH (23:45)
[2019-06-14] MEDS ORDERED: AZITHROMYCIN 500 MG TAB PO STA (23:46)
[2019-06-15] MEDS ORDERED: IPRATROPIUM-ALBUTEROL 3 ML NEB INHALATION SCH
[2019-06-15] MEDS: hydrALAZINE HCL 50 MG TAB PO SCH ×2 (00:26→08:16)
[2019-06-15 00:32] LABS: Glucose,Whole Blood 268 mg/dL (75-99)
[2019-06-15] MEDS ORDERED: IPRATROPIUM-ALBUTEROL 3 ML NEB INHALATION PRN (00:33)
[2019-06-15 00:46] LABS: Glucose,Whole Blood 266 mg/dL (75-99)
[2019-06-15 03:41] LABS: Basophils % (A) 0 %; Eosinophils % (A) 0 %; HCT 32.7 % (39.0-53.0); HGB 9.9 gm/dL (13.0-17.5); Hypochromasia Marked; Lymphocytes # (A) 0.6 k/uL (1.0-4.8); Lymphocytes % (A) 4 %; MCH 24.1 pg (25.0-35.0); MCHC 30.4 g/dL (31.0-37.0); MCV 79.5 fL (80.0-100.0); Mean Platelet Volume 7.8; Monocytes # (A) 0.5 k/uL (0-1.0); Monocytes % (A) 3 %; Neutrophils # (A) 12.1 k/uL (1.3-7.7); Neutrophils % (A) 91 %; Platelet Count 222 k/uL (150-450); RBC 4.12 m/uL (4.30-5.90); RDW 15.5 % (11.5-15.5); WBC 13.3 k/uL (3.8-10.6)
[2019-06-15 03:51] LABS: Potassium 3.8 mmol/L (3.5-5.1)
[2019-06-15 06:34] LABS: Glucose,Whole Blood 304 mg/dL (75-99)
[2019-06-15] MEDS ORDERED: FLECAINIDE 50 MG TAB PO SCH (07:00)
[2019-06-15 07:13] VITALS: RESP 18
[2019-06-15] MEDS: INSULIN ASPART (NovoLOG) 100 UNIT/ML VIAL SQ SCH ×2 (08:15→11:49)
[2019-06-15] MEDS ORDERED: PANTOPRAZOLE 40 MG TABLET PO SCH (09:00)
[2019-06-15] MEDS ORDERED: FLUTICASONE 50MCG/SPRAY NASAL 16GM EA NOSTRIL SCH (09:00)
[2019-06-15] MEDS ORDERED: predniSONE 20 MG TAB PO SCH (09:00)
[2019-06-15] MEDS ORDERED: FUROSEMIDE 40 MG TAB PO SCH (09:00)
[2019-06-15] MEDS ORDERED: METOPROLOL TARTRATE 50 MG TAB PO SCH (09:00)
[2019-06-15] MEDS ORDERED: APIXABAN 5 MG TAB PO SCH (09:00)
[2019-06-15] MEDS ORDERED: DILTIAZEM ORAL 30 MG TAB PO SCH (09:00)
[2019-06-15 11:10] VITALS: BP 138/77; PULSE 67; TEMP 97.5
[2019-06-15 11:32] LABS: Glucose,Whole Blood 414 mg/dL (75-99)
--- NOTE | 2019-06-15 12:54 | P.CRDCN ---
History of Present Illness History of present illness: This is a pleasant 64-year-old male past medical history significant for proximal atrial fibrillation on long-term anticoagulation, COPD, hypertension, dyslipidemia, coronary artery disease status post stent placement and status post permanent pacemaker implantation. He follows in the office with Dr. Morgan. We've been asked to see him in consultation secondary to chest discomfort. He states for the previous 2 days he has noticed a heavy tight sensation in the midsternal region worse with deep inspiration. He denies associated shortness of breath, dizziness, nausea, vomiting or diaphoresis. He also denies any cough, fever or chills. There is no radiation of the pain to the arm, back, neck or jaw. It has some steroids at home from previous prescription that he started taking 2 days ago. Seen and examined resting complain no acute distress no further chest discomfort noted. EKG reveals sinus mechanism, first-degree AV block and nonspecific ST abnormalities. Chest x-ray is negative for acute cardiopulmonary process. Laboratory data reviewed, WBC 13.3, hemoglobin 9.9, platelets 222, sodium 136, potassium 3.8, creatinine 2.34, cardiac enzymes negative 3. Current cardiac medications include Eliquis 5 mg twice a day, Plavix 75 mg daily, diltiazem 90 mg 3 times a day, flecainide 50 mg twice a day, Lasix 40 mg twice a day, Imdur 30 mg daily, Lopressor 100 mg twice a day, pravastatin 40 mg daily and hydralazine 100 mg 3 times a day. At the time of my exam: CONSTITUTIONAL: Denies fever. Denies chills. EYES: Denies blurred vision. Denies vision changes. Denies eye pain. EARS, NOSE, MOUTH & THROAT: Denies headache. Denies sore throat. Denies ear pain. CARDIOVASCULAR: Denies chest pain. Denies shortness of breath. Denies orthopnea. Denies PND. Denies palpitations. RESPIRATORY: Denies cough. GASTROINTESTINAL: Denies abdominal pain. Denies diarrhea. Denies constipation. Denies nausea. Denies vomiting. MUSCULOSKELETAL: Denies myalgias. INTEGUMENTARY: Denies pruitis. Denies rash. NEUROLOGIC: Denies numbness. Denies tingling. Denies weakness. PSYCHIATRIC: Denies anxiety. Denies depression. ENDOCRINE: Denies fatigue. Denies weight change. Denies polydipsia. Denies polyurina. GENITOURINARY: Denies burning, hematuria or urgency with micturation. HEMATOLOGIC: Denies history of anemia. Denies bleeding. Blood pressure 143/61 heart rate 68 afebrile maintaining oxygen saturation on room air GENERAL: This is a 64-year-old occasion male in no apparent distress at the time of my examination. HEENT: Head is atraumatic, normocephalic. Pupils are equal, round. Sclerae anicteric. Conjunctivae are clear. Mucous membranes of the mouth are moist. Neck is supple. There is no jugular venous distention. No carotid bruit is heard. LUNGS: Clear to auscultation no wheezes, rales or rhonchi. No chest wall tenderness is noted on palpation or with deep breathing. HEART: Regular rate and rhythm with systolic ejection murmur at the left sternal border, no rubs or gallops. S1 and S2 heard. ABDOMEN: Soft, nontender. Bowel sounds are heard. No organomegaly noted. EXTREMITIES: No evidence of peripheral edema and no calf tenderness noted. VASCULAR: Radial and dorsalis pedis pulses palpated, no evidence of clubbing. NEUROLOGIC: Patient is awake, alert and oriented x3. ASSESSMENT Chest pain, pleuritic. Atypical for angina, an acute coronary event has been ruled out. Paroxysmal atrial fibrillation on long-term anticoagulation. Scheduled for A. fib ablation on Monday with Dr. Fitch. History of coronary artery disease Status post permanent pacemaker implantation Hypertension Dyslipidemia PLAN Symptoms are atypical for angina, pleuritic in nature secondary to musculoskeletal strain versus inflammatory process. Increase activity and ambulation in the halls, he has no further symptoms of chest discomfort he may be discharged from a cardiac perspective. Thank you kindly for this consultation. Nurse Practitioner note has been reviewed, I agree with a documented findings and plan of care. Patient was seen and examined. Past Medical History Past Medical History: Atrial Fibrillation, Coronary Artery Disease (CAD), Chest Pain / Angina, Heart Failure, COPD, Diabetes Mellitus, GERD/Reflux, Hyperlipidemia, Hypertension, Liver Disease, Myocardial Infarction ([place]), Prostate Disorder, Renal Disease, Skin Disorder Additional Past Medical History / Comment(s): Neuropathy bilateral feet, stage III chronic kidney disease, chronic CHF, liver cirrhosis, BPH, DJD, herniated discs low back, chronic low back pain, varicose veins bilaterally, anemia, past asbestos exposure, celiac disease, dermatitis herpetiformis. Last Myocardial Infarction Date:: 06/2018 History of Any Multi-Drug Resistant Organisms: None Reported Past Surgical History: Cholecystectomy, Heart Catheterization With Stent, Pacemaker, Tonsillectomy Additional Past Surgical History / Comment(s): PCI with STENTS x 3, bilateral cataracts removed with lens implants, colonoscopy. Past Anesthesia/Blood Transfusion Reactions: No Reported Reaction Date of Last Stent Placement:: 2017 Type of Cardiac Device: Permanent Pacemaker Device Placement Date:: 02/02/19 Past Psychological History: No Psychological Hx Reported Smoking Status: Former smoker Past Alcohol Use History: None Reported Past Drug Use History: None Reported - Past Family History Mother Family Medical History: Diabetes Mellitus Father Family Medical History: Myocardial Infarction ([place]) Additional Family Medical History / Comment(s): Father had a NC in his 70s. Brother(s) Family Medical History: Myocardial Infarction ([place]) Additional Family Medical History / Comment(s): Brother had a NC in his 50s. Medications and Allergies Home Medications Medication Instructions Recorded Confirmed Type Insulin Detemir (Levemir) [Levemir] 34 unit SQ HS 08/18/14 06/15/19 History Fluticasone Nasal [place] [Flonase 1 spray EA NOSTRIL BID 05/12/16 06/15/19 History Nasal Burden] Pravastatin Sodium [Pravachol] 40 mg PO HS 12/06/17 06/15/19 History hydrALAZINE HCL [Apresoline] 100 mg PO TID #90 tab 06/07/18 06/15/19 Rx Nitroglycerin Sl Tabs [Nitrostat] 0.4 mg SUBLINGUAL Q5M PRN #25 tab 06/28/18 06/15/19 Rx Cholecalciferol [Vitamin D3 (25 3,000 unit PO PC-BRKFST 08/26/18 06/15/19 History Mcg = 1000 Iu)] Isosorbide Mononitrate ER [Imdur] 30 mg PO DAILY 01/16/19 06/15/19 History Pantoprazole [Protonix] 40 mg PO DAILY 01/16/19 06/15/19 History INSULIN ASPART (NovoLOG) [NovoLOG See Protocol SQ TID-W/MEALS 02/12/19 06/15/19 History (formulary)] Montelukast [Singulair] 10 mg PO HS 02/12/19 06/15/19 History Diltiazem Oral [Cardizem*] 90 mg PO TID #90 tab 02/14/19 06/15/19 Rx Clopidogrel [Plavix] 75 mg PO HS 02/15/19 06/15/19 History Loratadine [Claritin] 10 mg PO DAILY 03/28/19 06/15/19 History Magnesium. 300 mg PO DAILY 03/28/19 06/15/19 History Metoprolol Tartrate [Lopressor] 100 mg PO BID 03/28/19 06/15/19 History Apixaban [Eliquis] 5 mg PO BID #60 tab 04/03/19 06/15/19 Rx Flecainide [Tambocor] 50 mg PO Q12HR@0700,1900 #60 tab 04/10/19 06/15/19 Rx Furosemide [Lasix] 40 mg PO BID@0900,1600 #60 tab 04/10/19 06/15/19 Rx Ipratropium-Albuterol Nebulize 3 ml INHALATION RT-QID PRN 06/12/19 06/15/19 History [Duoneb 0.5 mg-3 mg/3 ml Soln] Allergies Allergy/AdvReac Type Severity Reaction Status Date / Time amoxicillin Allergy Anaphylaxis Verified 06/15/19 01:22 cephalexin monohydrate Allergy Rash/Hives Verified 06/15/19 01:22 [From Keflex] clindamycin Allergy Rash/Hives Verified 06/15/19 01:22 Penicillins Allergy Rash/Hives Verified 06/15/19 01:22 Sulfa (Sulfonamide Allergy Anaphylaxis Verified 06/15/19 01:22 Antibiotics) sulfamethoxazole Allergy Anaphylaxis Verified 06/15/19 01:22 [From Bactrim] trimethoprim [From Bactrim] Allergy Anaphylaxis Verified 06/15/19 01:22 amlodipine AdvReac Swelling Verified 06/15/19 01:22 carvedilol AdvReac "MAKES ME Verified 06/15/19 01:22 JERILYN" Physical Exam Vitals: Vital Signs Temp Pulse Pulse Pulse Pulse Resp BP 06/15/19 07:00 98.3 F 68 18 06/15/19 04:00 97.7 F 82 15 06/15/19 00:43 98.1 F 77 15 06/15/19 00:11 82 16 143/75 06/14/19 21:26 66 06/14/19 21:21 64 06/14/19 19:27 98.5 F 80 20 168/87 BP BP Pulse Ox 06/15/19 07:00 143/61 97 06/15/19 04:00 126/73 98 06/15/19 00:43 139/73 97 06/15/19 00:11 95 06/14/19 21:26 06/14/19 21:21 06/14/19 19:27 96 Intake and Output 06/14/19 06/15/19 06/15/19 22:59 06:59 14:59 Other: Voiding Method Toilet Weight 85.729 kg Results 06/15/19 02:57 06/15/19 02:57 Cardiac Enzymes 06/14/19 06/14/19 06/15/19 Range/Units 21:00 21:00 02:57 AST 36 (17-59) U/L Troponin I 0.017 0.028 (0.000-0.034) ng/mL Coagulation 06/14/19 Range/Units 21:00 PT 10.4 (9.0-12.0) sec APTT 24.9 (22.0-30.0) sec CBC 06/14/19 06/15/19 Range/Units 21:00 02:57 WBC 13.6 H 13.3 H (3.8-10.6) k/uL RBC 4.40 4.12 L (4.30-5.90) m/uL Hgb 10.8 L 9.9 L (13.0-17.5) gm/dL Hct 34.7 L 32.7 L (39.0-53.0) % Plt Count 241 222 (150-450) k/uL Comprehensive Metabolic Panel 06/14/19 06/15/19 Range/Units 21:00 02:57 Sodium 139 136 L (137-145) mmol/L Potassium 4.3 3.8 (3.5-5.1) mmol/L Chloride 95 L 94 L (98-107) mmol/L Carbon Dioxide 34 H 31 H (22-30) mmol/L BUN 75 H 67 H (9-20) mg/dL Creatinine 2.30 H 2.34 H (0.66-1.25) mg/dL Glucose 375 H 316 H (74-99) mg/dL Calcium 9.2 9.0 (8.4-10.2) mg/dL AST 36 (17-59) U/L ALT 40 (21-72) U/L Alkaline Phosphatase 90 (38-126) U/L Total Protein 7.0 (6.3-8.2) g/dL Albumin 4.2 (3.5-5.0) g/dL Current Medications Generic Name Dose Route Start Last Admin Trade Name Freq PRN Reason Stop Dose Admin Albuterol/Ipratropium 3 ml 06/15/19 00:33 Duoneb 0.5 Mg-3 Mg/3 Ml Soln INHALATION RT-QID PRN Shortness Of Breath Or Wheezing Apixaban 5 mg 06/15/19 09:00 Eliquis PO BID [facility] Clopidogrel Bisulfate 75 mg 06/14/19 23:45 06/15/19 00:25 Plavix PO 75 mg HS [facility]ONZO Administration Diltiazem HCl 90 mg 06/15/19 09:00 Cardizem Oral PO TID [facility] Flecainide Acetate 50 mg 06/15/19 07:00 Tambocor PO Q12HR@0700,1900 [facility] Fluticasone Propionate 1 spray 06/15/19 09:00 Flonase Nasal Burden EA NOSTRIL BID [facility] Furosemide 40 mg 06/15/19 09:00 Lasix PO BID@0900,1600 [facility] Hydralazine HCl 100 mg 06/14/19 23:45 06/15/19 00:26 Apresoline PO 100 mg TID [facility] Administration Insulin Aspart 0 unit 06/15/19 07:30 Novolog SQ ACHS [facility] Protocol Insulin Detemir 34 unit 06/14/19 23:45 06/15/19 01:55 Levemir SQ 34 unit HS [facility] Administration Metoprolol Tartrate 100 mg 06/15/19 09:00 Lopressor PO BID [facility] Montelukast Sodium 10 mg 06/14/19 23:45 06/15/19 00:28 Singulair PO 10 mg HS [facility] Administration Naloxone HCl 0.2 mg 06/14/19 23:35 Narcan IV Q2M PRN Opioid Reversal Pantoprazole Sodium 40 mg 06/15/19 09:00 Protonix PO DAILY [facility] Pravastatin Sodium 40 mg 06/14/19 23:45 06/15/19 00:25 Pravachol PO 40 mg HS [facility] Administration Prednisone 20 mg 06/15/19 09:00 PO BID [facility] Intake and Output 06/14/19 06/15/19 06/15/19 22:59 06:59 14:59 Other: Voiding Method Toilet Weight 85.729 kg 06/15/19 02:57 06/15/19 02:57
--- NOTE | 2019-06-15 13:13 | P.HPIM ---
History of Present Illness H&P Date: 06/15/19 Chief Complaint: Chest tightness Mr. Lieberman is 64-year-old male with a past medical history of paroxysmal atrial fibrillation on long-term and a , hypertension, COPD, and coronary artery disease status post stenting coming in with the chief complaint of chest tightness. Patient states that he has been having chest discomfort on taking deep inspiration that has been going on for the past 1 day. Patient denies having any cough or difficulty in breathing. He denies having any chest pain but chest tightness is patent. Patient denies having any nausea vomiting with the chest chest tightness. He states that he went out yesterday and it was hot and since then his breathing became a little bit heavy and he started to have this discomfort. Patient denies having any palpitations. No complaints of lower extremity swelling. In the emergency department patient was given a dose of Solu-Medrol and breathing treatments and admitted to the observation unit with cardiology consult. In the emergency department patient had EKG showing first-degree AV block and nonspecific T-wave changes ST wave changes. Chest x-ray was negative for acute cardiopulmonary process. Patient had blood work done which was within normal limits. This morning patient states that he does not have the chest heaviness anymore. He feels that his back toward his normal in breathing is okay. He has been cleared by cardiology to be discharged home. Review of Systems REVIEW OF SYSTEMS: PSYCH: Normal psychiatric exam NEURO:No c/o weakness of the extremities, No facial droop, No speech abnormalities. VASCULAR: Peripheral nervous system within the normal limits no edema HEMATOLOGIC: No history of easy bleeding and bruising . No recent infections . RESPIRATORY: No cough, No SOB, No chest discomfort. IMMUNE: No infections INTEGUMENT: no rashes OPHTHALMOLOGIC: No blurry vision and no eye discharge : No dysuria or hematuria CARDIAC: No chest pain , shortness of breath , paroxysmal nocturnal dyspnea MUSCULOSKELETAL : No Aches or pains in the joints or muscles. GI: No abdominal pain, Nausea or vomiting. No constipation or diarrhea. Past Medical History Past Medical History: Atrial Fibrillation, Coronary Artery Disease (CAD), Chest Pain / Angina, Heart Failure, COPD, Diabetes Mellitus, GERD/Reflux, H yperlipidemia, Hypertension, Liver Disease, Myocardial Infarction ([place]), Prostate Disorder, Renal Disease, Skin Disorder Additional Past Medical History / Comment(s): Neuropathy bilateral feet, stage III chronic kidney disease, chronic CHF, liver cirrhosis, BPH, DJD, herniated discs low back, chronic low back pain, varicose veins bilaterally, anemia, past asbestos exposure, celiac disease, dermatitis herpetiformis. Last Myocardial Infarction Date:: 06/2018 History of Any Multi-Drug Resistant Organisms: None Reported Past Surgical History: Cholecystectomy, Heart Catheterization With Stent, Pacema ker, Tonsillectomy Additional Past Surgical History / Comment(s): PCI with STENTS x 3, bilateral cataracts removed with lens implants, colonoscopy. Past Anesthesia/Blood Transfusion Reactions: No Reported Reaction Date of Last Stent Placement:: 2017 Type of Cardiac Device: Permanent Pacemaker Device Placement Date:: 02/02/19 Past Psychological History: No Psychological Hx Reported Smoking Status: Former smoker Past Alcohol Use History: None Reported Past Drug Use History: None Reported - Past Family History Mother Family Medical History: Diabetes Mellitus Father Family Medical History: Myocardial Infarction ([place]) Additional Family Medical History / Comment(s): Father had a [place] in his 70s. Brother(s) Family Medical History: Myocardial Infarction ([place]) Additional Family Medical History / Comment(s): Brother had a DE in his 50s. Medications and Allergies Home Medications Medication Instructions Recorded Confirmed Type Insulin Detemir (Levemir) [Levemir] 34 unit SQ HS 08/18/14 06/15/19 History Fluticasone Nasal [place] [Flonase 1 spray EA NOSTRIL BID 05/12/16 06/15/19 History Nasal [place]] Pravastatin Sodium [Pravachol] 40 mg PO HS 12/06/17 06/15/19 History hydrALAZINE HCL [Apresoline] 100 mg PO TID #90 tab 06/07/18 06/15/19 Rx Nitroglycerin Sl Tabs [Nitrostat] 0.4 mg SUBLINGUAL Q5M PRN #25 tab 06/28/18 06/15/19 Rx Cholecalciferol [Vitamin D3 (25 3,000 unit PO PC-BRKFST 08/26/18 06/15/19 History Mcg = 1000 Iu)] Isosorbide Mononitrate ER [Imdur] 30 mg PO DAILY 01/16/19 06/15/19 History Pantoprazole [Protonix] 40 mg PO DAILY 01/16/19 06/15/19 History INSULIN ASPART (NovoLOG) [NovoLOG See Protocol SQ TID-W/MEALS 02/12/19 06/15/19 History (formulary)] Montelukast [Singulair] 10 mg PO HS 02/12/19 06/15/19 History Diltiazem Oral [Cardizem*] 90 mg PO TID #90 tab 02/14/19 06/15/19 Rx Clopidogrel [Plavix] 75 mg PO HS 02/15/19 06/15/19 History Loratadine [Claritin] 10 mg PO DAILY 03/28/19 06/15/19 History Magnesium. 300 mg PO DAILY 03/28/19 06/15/19 History Metoprolol Tartrate [Lopressor] 100 mg PO BID 03/28/19 06/15/19 History Apixaban [Eliquis] 5 mg PO BID #60 tab 04/03/19 06/15/19 Rx Flecainide [Tambocor] 50 mg PO Q12HR@0700,1900 #60 tab 04/10/19 06/15/19 Rx Furosemide [Lasix] 40 mg PO BID@0900,1600 #60 tab 04/10/19 06/15/19 Rx Ipratropium-Albuterol Nebulize 3 ml INHALATION RT-QID PRN 06/12/19 06/15/19 History [Duoneb 0.5 mg-3 mg/3 ml Soln] Allergies Allergy/AdvReac Type Severity Reaction Status Date / Time amoxicillin Allergy Anaphylaxis Verified 06/15/19 01:22 cephalexin monohydrate Allergy Rash/Hives Verified 06/15/19 01:22 [From Keflex] clindamycin Allergy Rash/Hives Verified 06/15/19 01:22 Penicillins Allergy Rash/Hives Verified 06/15/19 01:22 Sulfa (Sulfonamide Allergy Anaphylaxis Verified 06/15/19 01:22 Antibiotics) sulfamethoxazole Allergy Anaphylaxis Verified 06/15/19 01:22 [From Bactrim] trimethoprim [From Bactrim] Allergy Anaphylaxis Verified 06/15/19 01:22 amlodipine AdvReac Swelling Verified 06/15/19 01:22 carvedilol AdvReac "MAKES ME Verified 06/15/19 01:22 JERILYN" Physical Exam Vitals: Vital Signs Temp Pulse Pulse Pulse Pulse Resp BP 06/15/19 12:00 18 06/15/19 11:10 97.5 F L 67 18 06/15/19 08:00 77 18 06/15/19 07:00 98.3 F 68 18 06/15/19 04:00 97.7 F 82 15 06/15/19 00:43 98.1 F 77 15 06/15/19 00:11 82 16 143/75 06/14/19 21:26 66 06/14/19 21:21 64 06/14/19 19:27 98.5 F 80 20 168/87 BP BP Pulse Ox 06/15/19 12:00 06/15/19 11:10 138/77 95 06/15/19 08:00 06/15/19 07:00 143/61 97 06/15/19 04:00 126/73 98 06/15/19 00:43 139/73 97 06/15/19 00:11 95 06/14/19 21:26 06/14/19 21:21 06/14/19 19:27 96 Intake and Output 06/14/19 06/15/19 06/15/19 22:59 06:59 14:59 Intake Total 236 Balance 236 Intake: Oral 236 Other: Voiding Method Toilet Toilet Weight 85.729 kg GEN. APPEARANCE: alert, in no apparent distress HEAD EXAM: atraumatic, normocephalic, normal inspection EYE EXAM: Mild pallor. No icterus. RESPIRATORY EXAM: Decreased breath sounds in all lung tobias. No wheeze or crackles. CARDIOVASCULAR EXAM: S1-S2 heard GI/ABDOMINAL EXAM: soft, normal bowel sounds. Absent: distended, tenderness, guarding, rebound, rigid EXTREMITIES EXAM: No edema in bilateral lower extremities NEUROLOGICAL EXAM: alert, oriented X3, no focal deficits PSYCHIATRIC EXAM: normal affect, normal mood SKIN EXAM: warm, dry, intact, normal color. Absent: rash Results CBC & Chem 7: 06/15/19 02:57 06/15/19 02:57 Labs: Abnormal Lab Results - Last 24 Hours (Table) 06/14/19 06/14/19 06/14/19 Range/Units 21:00 21:00 21:00 WBC 13.6 H (3.8-10.6) k/uL RBC (4.30-5.90) m/uL Hgb 10.8 L (13.0-17.5) gm/dL Hct 34.7 L (39.0-53.0) % MCV 78.9 L (80.0-100.0) fL MCH 24.6 L (25.0-35.0) pg MCHC (31.0-37.0) g/dL RDW 16.2 H (11.5-15.5) % Neutrophils # 11.5 H (1.3-7.7) k/uL Lymphocytes # 0.9 L (1.0-4.8) k/uL Sodium (137-145) mmol/L Chloride 95 L (98-107) mmol/L Carbon Dioxide 34 H (22-30) mmol/L BUN 75 H (9-20) mg/dL Creatinine 2.30 H (0.66-1.25) mg/dL Glucose 375 H (74-99) mg/dL POC Glucose (mg/dL) (75-99) mg/dL Urine Protein Trace H (Negative) Urine Glucose (UA) 3+ H (Negative) 06/15/19 06/15/19 06/15/19 Range/Units 00:24 00:45 02:57 WBC 13.3 H (3.8-10.6) k/uL RBC 4.12 L (4.30-5.90) m/uL Hgb 9.9 L (13.0-17.5) gm/dL Hct 32.7 L (39.0-53.0) % MCV 79.5 L (80.0-100.0) fL MCH 24.1 L (25.0-35.0) pg MCHC 30.4 L (31.0-37.0) g/dL RDW (11.5-15.5) % Neutrophils # 12.1 H (1.3-7.7) k/uL Lymphocytes # 0.6 L (1.0-4.8) k/uL Sodium (137-145) mmol/L Chloride (98-107) mmol/L Carbon Dioxide (22-30) mmol/L BUN (9-20) mg/dL Creatinine (0.66-1.25) mg/dL Glucose (74-99) mg/dL POC Glucose (mg/dL) 268 H 266 H (75-99) mg/dL Urine Protein (Negative) Urine Glucose (UA) (Negative) 06/15/19 06/15/19 06/15/19 Range/Units 02:57 06:33 11:30 WBC (3.8-10.6) k/uL RBC (4.30-5.90) m/uL Hgb (13.0-17.5) gm/dL Hct (39.0-53.0) % MCV (80.0-100.0) fL MCH (25.0-35.0) pg MCHC (31.0-37.0) g/dL RDW (11.5-15.5) % Neutrophils # (1.3-7.7) k/uL Lymphocytes # (1.0-4.8) k/uL Sodium 136 L (137-145) mmol/L Chloride 94 L (98-107) mmol/L Carbon Dioxide 31 H (22-30) mmol/L BUN 67 H (9-20) mg/dL Creatinine 2.34 H (0.66-1.25) mg/dL Glucose 316 H (74-99) mg/dL POC Glucose (mg/dL) 304 H 414 H (75-99) mg/dL Urine Protein (Negative) Urine Glucose (UA) (Negative) Thrombosis Risk Factor Assmnt - Choose All That Apply Any of the Below Risk Factors Present?: Yes Each Factor Represents 1 point: Abnormal pulmonary function (COPD), Obesity (BMI >25) Other Risk Factors: Yes Each Risk Factor Represents 2 Points: Age 61-74 years Other congenital or acquired thrombophilia - If yes, enter type in comment: No Thrombosis Risk Factor Assessment Total Risk Factor Score: 4 Thrombosis Risk Factor Assessment Level: Moderate Risk Assessment and Plan Assessment: ASSESSMENT Atypical chest pain - pleuritic in nature History of coronary artery disease status post stenting Hypertension Hyperlipidemia Paroxysmal atrial fibrillation on long-term anticoagulation PLAN: Patient does not have the chest heaviness or tightness anymore. He is back to his baseline. Patient had EKGs and serial troponins that were within normal limits. He has been cleared by cardiology to be discharged home. No change in his medications were made. Patient is being discharged home in a stable condition. He is advised to follow-up with his PCP Dr. Valentine in 3-4 days. Patient is scheduled for a cardiac ablation on Monday by Dr. Fitch so advised to keep up with that appointment. Patient is being discharged home with his in a stable condition.
--- NOTE | 2019-06-15 13:16 | P.DS ---
Providers Date of admission: 06/14/19 23:35 Expected date of discharge: 06/15/19 Attending physician: Lilibeth Urias Consults: 06/14/19 23:35 Consult Physician Urgent Consulting Provider: [facility] Consult Reason/Comments: acute chest pain, hx afib Do you want consulting provider notified?: Yes Primary care physician: [facility] Course: Mr. Lieberman is 64-year-old male with a past medical history of paroxysmal atrial fibrillation on long-term and a , hypertension, COPD, and coronary artery disease status post stenting coming in with the chief complaint of chest tightness. Patient states that he has been having chest discomfort on taking deep inspiration that has been going on for the past 1 day. Patient denies having any cough or difficulty in breathing. He denies having any chest pain but chest tightness is patent. Patient denies having any nausea vomiting with the chest chest tightness. He states that he went out yesterday and it was hot and since then his breathing became a little bit heavy and he started to have this discomfort. Patient denies having any palpitations. No complaints of lower extremity swelling. In the emergency department patient was given a dose of Solu-Medrol and breathing treatments and admitted to the observation unit with cardiology consult. In the emergency department patient had EKG showing first-degree AV block and nonspecific T-wave changes ST wave changes. Chest x-ray was negative for acute cardiopulmonary process. Patient had blood work done which was within normal limits. This morning patient states that he does not have the chest heaviness anymore. He feels that his back toward his normal in breathing is okay. He has been cleared by cardiology to be discharged home. Physical Exam Vitals: Vital Signs Temp Pulse Pulse Pulse Pulse Resp BP 06/15/19 12:00 18 06/15/19 11:10 97.5 F L 67 18 06/15/19 08:00 77 18 06/15/19 07:00 98.3 F 68 18 06/15/19 04:00 97.7 F 82 15 06/15/19 00:43 98.1 F 77 15 06/15/19 00:11 82 16 143/75 06/14/19 21:26 66 06/14/19 21:21 64 06/14/19 19:27 98.5 F 80 20 168/87 BP BP Pulse Ox 06/15/19 12:00 06/15/19 11:10 138/77 95 06/15/19 08:00 06/15/19 07:00 143/61 97 06/15/19 04:00 126/73 98 06/15/19 00:43 139/73 97 06/15/19 00:11 95 06/14/19 21:26 06/14/19 21:21 06/14/19 19:27 96 Intake and Output 06/14/19 06/15/19 06/15/19 22:59 06:59 14:59 Intake Total 236 Balance 236 Intake: Oral 236 Other: Voiding Method Toilet Toilet Weight 85.729 kg GEN. APPEARANCE: alert, in no apparent distress HEAD EXAM: atraumatic, normocephalic, normal inspection EYE EXAM: Mild pallor. No icterus. RESPIRATORY EXAM: Decreased breath sounds in all lung tobias. No wheeze or crackles. CARDIOVASCULAR EXAM: S1-S2 heard GI/ABDOMINAL EXAM: soft, normal bowel sounds. Absent: distended, tenderness, guarding, rebound, rigid EXTREMITIES EXAM: No edema in bilateral lower extremities NEUROLOGICAL EXAM: alert, oriented X3, no focal deficits PSYCHIATRIC EXAM: normal affect, normal mood SKIN EXAM: warm, dry, intact, normal color. Absent: rash Results CBC & Chem 7: 06/15/19 02:57 06/15/19 02:57 Labs: Abnormal Lab Results - Last 24 Hours (Table) 06/14/19 06/14/19 06/14/19 Range/Units 21:00 21:00 21:00 WBC 13.6 H (3.8-10.6) k/uL RBC (4.30-5.90) m/uL Hgb 10.8 L (13.0-17.5) gm/dL Hct 34.7 L (39.0-53.0) % MCV 78.9 L (80.0-100.0) fL MCH 24.6 L (25.0-35.0) pg MCHC (31.0-37.0) g/dL RDW 16.2 H (11.5-15.5) % Neutrophils # 11.5 H (1.3-7.7) k/uL Lymphocytes # 0.9 L (1.0-4.8) k/uL Sodium (137-145) mmol/L Chloride 95 L (98-107) mmol/L Carbon Dioxide 34 H (22-30) mmol/L BUN 75 H (9-20) mg/dL Creatinine 2.30 H (0.66-1.25) mg/dL Glucose 375 H (74-99) mg/dL POC Glucose (mg/dL) (75-99) mg/dL Urine Protein Trace H (Negative) Urine Glucose (UA) 3+ H (Negative) 06/15/19 06/15/19 06/15/19 Range/Units 00:24 00:45 02:57 WBC 13.3 H (3.8-10.6) k/uL RBC 4.12 L (4.30-5.90) m/uL Hgb 9.9 L (13.0-17.5) gm/dL Hct 32.7 L (39.0-53.0) % MCV 79.5 L (80.0-100.0) fL MCH 24.1 L (25.0-35.0) pg MCHC 30.4 L (31.0-37.0) g/dL RDW (11.5-15.5) % Neutrophils # 12.1 H (1.3-7.7) k/uL Lymphocytes # 0.6 L (1.0-4.8) k/uL Sodium (137-145) mmol/L Chloride (98-107) mmol/L Carbon Dioxide (22-30) mmol/L BUN (9-20) mg/dL Creatinine (0.66-1.25) mg/dL Glucose (74-99) mg/dL POC Glucose (mg/dL) 268 H 266 H (75-99) mg/dL Urine Protein (Negative) Urine Glucose (UA) (Negative) 06/15/19 06/15/19 06/15/19 Range/Units 02:57 06:33 11:30 WBC (3.8-10.6) k/uL RBC (4.30-5.90) m/uL Hgb (13.0-17.5) gm/dL Hct (39.0-53.0) % MCV (80.0-100.0) fL MCH (25.0-35.0) pg MCHC (31.0-37.0) g/dL RDW (11.5-15.5) % Neutrophils # (1.3-7.7) k/uL Lymphocytes # (1.0-4.8) k/uL Sodium 136 L (137-145) mmol/L Chloride 94 L (98-107) mmol/L Carbon Dioxide 31 H (22-30) mmol/L BUN 67 H (9-20) mg/dL Creatinine 2.34 H (0.66-1.25) mg/dL Glucose 316 H (74-99) mg/dL POC Glucose (mg/dL) 304 H 414 H (75-99) mg/dL Urine Protein (Negative) Urine Glucose (UA) (Negative) Thrombosis Risk Factor Assmnt - Choose All That Apply Any of the Below Risk Factors Present?: Yes Each Factor Represents 1 point: Abnormal pulmonary function (COPD), Obesity (BMI >25) Other Risk Factors: Yes Each Risk Factor Represents 2 Points: Age 61-74 years Other congenital or acquired thrombophilia - If yes, enter type in comment: No Thrombosis Risk Factor Assessment Total Risk Factor Score: 4 Thrombosis Risk Factor Assessment Level: Moderate DISCHARGE DIAGNOSIS Atypical chest pain - pleuritic in nature History of coronary artery disease status post stenting Hypertension Hyperlipidemia Paroxysmal atrial fibrillation on long-term anticoagulation PLAN: Patient does not have the chest heaviness or tightness anymore. He is back to his baseline. Patient had EKGs and serial troponins that were within normal limits. He has been cleared by cardiology to be discharged home. No change in his medications were made. Patient is being discharged home in a stable condition. He is advised to follow-up with his PCP Dr. Valentine in 3-4 days. Patient is scheduled for a cardiac ablation on Monday by Dr. Fitch so advised to keep up with that appointment. Patient is being discharged home with his in a stable condition. Patient Condition at Discharge: Stable Plan - Discharge Summary New Discharge Prescriptions: Continue Insulin Detemir (Levemir) [Levemir] 34 unit SQ HS Fluticasone Nasal [place] [Flonase Nasal [place]] 1 spray EA NOSTRIL BID Pravastatin Sodium [Pravachol] 40 mg PO HS hydrALAZINE HCL [Apresoline] 100 mg PO TID #90 tab Nitroglycerin Sl Tabs [Nitrostat] 0.4 mg SUBLINGUAL Q5M PRN #25 tab PRN Reason: Chest Pain Cholecalciferol [Vitamin D3 (25 Mcg = 1000 Iu)] 3,000 unit PO PC-BRKFST Isosorbide Mononitrate ER [Imdur] 30 mg PO DAILY Pantoprazole [Protonix] 40 mg PO DAILY Montelukast [Singulair] 10 mg PO HS INSULIN ASPART (NovoLOG) [NovoLOG (formulary)] See Protocol SQ TID-W/MEALS Diltiazem Oral [Cardizem*] 90 mg PO TID #90 tab Clopidogrel [Plavix] 75 mg PO HS Metoprolol Tartrate [Lopressor] 100 mg PO BID Loratadine [Claritin] 10 mg PO DAILY Magnesium. 300 mg PO DAILY Apixaban [Eliquis] 5 mg PO BID #60 tab Furosemide [Lasix] 40 mg PO BID@0900,1600 #60 tab Flecainide [Tambocor] 50 mg PO Q12HR@0700,1900 #60 tab Ipratropium-Albuterol Nebulize [Duoneb 0.5 mg-3 mg/3 ml Soln] 3 ml INHALATION RT-QID PRN PRN Reason: Shortness Of Breath Discharge Medication List Insulin Detemir (Levemir) [Levemir] 34 unit SQ HS 08/18/14 [History] Fluticasone Nasal [place] [Flonase Nasal [place]] 1 spray EA NOSTRIL BID 05/12/16 [History] Pravastatin Sodium [Pravachol] 40 mg PO HS 12/06/17 [History] hydrALAZINE HCL [Apresoline] 100 mg PO TID #90 tab 06/07/18 [Rx] Nitroglycerin Sl Tabs [Nitrostat] 0.4 mg SUBLINGUAL Q5M PRN #25 tab 06/28/18 [Rx] Cholecalciferol [Vitamin D3 (25 Mcg = 1000 Iu)] 3,000 unit PO PC-BRKFST 08/26/18 [History] Isosorbide Mononitrate ER [Imdur] 30 mg PO DAILY 01/16/19 [History] Pantoprazole [Protonix] 40 mg PO DAILY 01/16/19 [History] INSULIN ASPART (NovoLOG) [NovoLOG (formulary)] See Protocol SQ TID-W/MEALS 02/12/19 [History] Montelukast [Singulair] 10 mg PO HS 02/12/19 [History] Diltiazem Oral [Cardizem*] 90 mg PO TID #90 tab 02/14/19 [Rx] Clopidogrel [Plavix] 75 mg PO HS 02/15/19 [History] Loratadine [Claritin] 10 mg PO DAILY 03/28/19 [History] Magnesium. 300 mg PO DAILY 03/28/19 [History] Metoprolol Tartrate [Lopressor] 100 mg PO BID 03/28/19 [History] Apixaban [Eliquis] 5 mg PO BID #60 tab 04/03/19 [Rx] Flecainide [Tambocor] 50 mg PO Q12HR@0700,1900 #60 tab 04/10/19 [Rx] Furosemide [Lasix] 40 mg PO BID@0900,1600 #60 tab 04/10/19 [Rx] Ipratropium-Albuterol Nebulize [Duoneb 0.5 mg-3 mg/3 ml Soln] 3 ml INHALATION RT-QID PRN 06/12/19 [History] Follow up Appointment(s)/Referral(s): Ivy Valentine DO [Primary Care Provider] - 1-2 days
== END 2019-06-15 13:36 | disposition home or self-care (01) ==
LOC: EC 19:17 → 1SOBS 23:35
PROVIDERS: ADMIT Internal Medicine; ATTEND Internal Medicine
DX: R07.81 Pleurodynia (principal); I25.10 Atherosclerotic heart disease of native coronary artery without angina pectoris; Z95.5 Presence of coronary angioplasty implant and graft; I13.0 Hypertensive heart and chronic kidney disease with heart failure and stage 1 through stage 4 chronic kidney disease, or unspecified chronic kidney disease; N18.3 Chronic kidney disease, stage 3 (moderate); I50.9 Heart failure, unspecified; E78.5 Hyperlipidemia, unspecified; I48.0 Paroxysmal atrial fibrillation; J44.9 Chronic obstructive pulmonary disease, unspecified; I44.0 Atrioventricular block, first degree; E66.9 Obesity, unspecified; Z68.27 Body mass index [BMI] 27.0-27.9, adult; E11.9 Type 2 diabetes mellitus without complications; K21.9 Gastro-esophageal reflux disease without esophagitis; I25.2 Old myocardial infarction; E11.22 Type 2 diabetes mellitus with diabetic chronic kidney disease; E11.40 Type 2 diabetes mellitus with diabetic neuropathy, unspecified; N40.0 Benign prostatic hyperplasia without lower urinary tract symptoms; D72.829 Elevated white blood cell count, unspecified; M19.90 Unspecified osteoarthritis, unspecified site; G89.29 Other chronic pain; M54.5 Low back pain; I83.93 Asymptomatic varicose veins of bilateral lower extremities; D64.9 Anemia, unspecified; Z77.090 Contact with and (suspected) exposure to asbestos; K90.0 Celiac disease; L13.0 Dermatitis herpetiformis; Z90.49 Acquired absence of other specified parts of digestive tract; Z87.891 Personal history of nicotine dependence; Z87.09 Personal history of other diseases of the respiratory system; Z95.0 Presence of cardiac pacemaker; Z79.4 Long term (current) use of insulin; Z79.899 Other long term (current) drug therapy; Z79.01 Long term (current) use of anticoagulants; Z79.02 Long term (current) use of antithrombotics/antiplatelets; Z88.1 Allergy status to other antibiotic agents; Z88.0 Allergy status to penicillin; Z88.2 Allergy status to sulfonamides; Z88.8 Allergy status to other drugs, medicaments and biological substances; Z83.3 Family history of diabetes mellitus; Z82.49 Family history of ischemic heart disease and other diseases of the circulatory system
CPT/HCPCS: 99285; 36415; 94640; 93005; 83880; 80053; 80048; 83735; 84484 ×2; 85025 ×2; 85610; 85730; 81003; 71046; G0378 ×2; J7512

== ENCOUNTER 2019-06-17 10:48 | Day surgery (SDC) | payer MEDICARE ==
[2019-06-12 15:52] VITALS: BMI 27.3
[~2019-06-17 10:48] MED LIST: LIDOCAINE 1% 20 ML VIAL (10MG/ML) FOR IV START INTRADERMA PRN; MORPHINE SULFATE 2 MG/ML SYRINGE IV PRN; ONDANSETRON 4 MG/2 ML VIAL IVP PRN
[2019-06-17] MEDS: SODIUM CHLORIDE 0.9% 1,000 ML IV SCH (11:15)
[2019-06-17 11:21] LABS: Glucose,Whole Blood 208 mg/dL (75-99)
[2019-06-17] MEDS ORDERED: INSULIN ASPART (NovoLOG) 100 UNIT/ML VIAL SQ ONE (11:30)
[2019-06-17] MEDS ORDERED: VANCOMYCIN 1,000 MG in SODIUM CHLORIDE 0.9% 250 ML IVPB STA (13:30)
[2019-06-17] MEDS ORDERED: LIDOCAINE 1% INJ 10MG/ML (20 ML MDV) ONE (13:33)
[2019-06-17] MEDS ORDERED: ROCURONIUM BROMIDE 10 MG/ML 10 ML VIAL IV ONE (13:33)
[2019-06-17] MEDS ORDERED: MIDAZOLAM 2 MG/2 ML VIAL ONE (13:33)
[2019-06-17] MEDS ORDERED: PHENYLEPHRINE-0.9% NACL SYG 1 MG/10 ML SYRINGE ONE (13:33)
[2019-06-17] MEDS ORDERED: FUROSEMIDE 10 MG/ML 2 ML VIAL ONE (13:33)
[2019-06-17] MEDS ORDERED: GLYCOPYRROLATE 0.2 MG/ML 2 ML VIAL ONE (13:33)
[2019-06-17] MEDS ORDERED: SUCCINYLCHOLINE CHLORIDE 100 MG/5 ML SYR IV ONE (13:33)
[2019-06-17] MEDS ORDERED: NEOSTIGMINE 1 MG/ML 10 ML VIAL ONE (13:33)
[2019-06-17] MEDS ORDERED: HEPARIN SODIUM,PORCINE 10,000 UNIT/ML 1 ML VIAL ONE (13:33)
[2019-06-17] MEDS ORDERED: fentaNYL (PF) 50 MCG/ML 2 ML AMP ONE (13:33)
[2019-06-17] MEDS ORDERED: PROPOFOL 10 MG/ML 20 ML VIAL IV ONE (13:33)
[2019-06-17] MEDS ORDERED: LIDOCAINE 1% INJ 10MG/ML (20 ML MDV) SQ ONE (14:27)
[2019-06-17] MEDS: IOPAMIDOL-250 50ML BTL IV ONE ×2 (14:35→14:38)
[2019-06-17 15:00] LABS: Glucose,Whole Blood 173 mg/dL (75-99)
[2019-06-17] MEDS ORDERED: HEPARIN SODIUM (1,000 UNIT/ML) 1,000 UNIT in SODIUM CHLORIDE 0.9% 1,000 ML IRRIGATION ONE ×2 (15:30→18:51)
[2019-06-17] MEDS ORDERED: HEPARIN SOD,PORK IN 0.45% NACL 25,000 UNIT in 0.45% NACL 1 250ML.BAG IV ONE (15:46)
[2019-06-17 17:15] LABS: Glucose,Whole Blood 146 mg/dL (75-99)
[2019-06-17 18:16] LABS: Glucose,Whole Blood 138 mg/dL (75-99)
[2019-06-17] MEDS ORDERED: PROTAMINE SULFATE 10 MG/ML 5 ML VIAL IV ONE (20:04)
[2019-06-17 20:13] LABS: Glucose,Whole Blood 149 mg/dL (75-99)
[2019-06-17] MEDS ORDERED: ACETAMINOPHEN TAB 325 MG TAB PO PRN (20:16)
[2019-06-17] MEDS ORDERED: HYDROcodone/APAP 5-325MG 1 EACH TAB PO PRN (20:16)
[2019-06-17] MEDS ORDERED: IPRATROPIUM-ALBUTEROL 3 ML NEB INHALATION PRN (20:21)
[2019-06-17] MEDS ORDERED: ACETAMINOPHEN IV (For NPO) 1,000 MG in EMPTY BAG 1 BAG IVPB ONE (20:30)
[2019-06-17] MEDS: LACTATED RINGERS 1,000 ML IV ONE ×2 (20:42→22:19)
[2019-06-17] MEDS ORDERED: INSULIN DETEMIR (LEVEMIR) 100 UNIT/ML SYR SQ SCH (21:00)
[2019-06-17] MEDS ORDERED: PRAVASTATIN SODIUM 40 MG TAB PO SCH (21:00)
[2019-06-17] MEDS ORDERED: CLOPIDOGREL 75 MG TAB PO SCH (21:00)
[2019-06-17] MEDS ORDERED: MONTELUKAST 10 MG TAB PO SCH (21:00)
[2019-06-17] MEDS: DILTIAZEM ORAL 30 MG TAB PO SCH (21:51)
[2019-06-17] MEDS: METOPROLOL TARTRATE 50 MG TAB PO SCH (21:51)
[2019-06-17] MEDS: hydrALAZINE HCL 50 MG TAB PO SCH (21:51)
[2019-06-17] MEDS: APIXABAN 5 MG TAB PO SCH (21:51)
[2019-06-17 22:00] LABS: Glucose,Whole Blood 204 mg/dL (75-99)
[2019-06-17] MEDS: LACTATED RINGERS 1,000 ML IV SCH (22:17)
[2019-06-17] MEDS ORDERED: CALCIUM CARBONATE 500 MG CHEWABLE PO STA (22:40)
[2019-06-18] MEDS ORDERED: CALCIUM CARBONATE 500 MG CHEWABLE PO STA (02:30)
--- NOTE | 2019-06-18 02:37 | PCN ---
PROCEDURE NOTE Jim Lieberman is a 64-year-old male patient who has had recurrent symptomatic atrial tachycardia with RVR following successful pulmonary vein isolation. He was brought in for diagnostic EP study. Patient was brought to the EP lab in a fasting state. Written informed consent was obtained prior to the procedure. IV antibiotics were administered. Venous sheaths were placed in the right and left femoral veins. His dual-chamber pacemaker [employer] was reprogrammed to AAI to DDD, 50 ppm and the lead impedances were stable. Venous sheaths were placed in the right and left femoral veins. Via these diagnostic mapping and ablation catheters were placed including high right atrial catheter, His bundle catheter, coronary sinus catheter, a PentaRay catheter, mapping ablation catheter and intracardiac echo catheter. Baseline AH interval 76 milliseconds, baseline HV interval 63 milliseconds. He was in sinus rhythm at the start of the study and a diagnostic EP study was performed. Sinus node recovery times of 600 and 500 milliseconds were 1289 and 1293 milliseconds. AV node Wenckebach block 520 milliseconds, atrial extra stimulation was performed and the a jump was noted at 600/400 milliseconds but no AV edna reentry induced. Burst stimulation was performed and coronary sinus pacing was performed. Extra stimulation was performed. Atrial tachycardia was induced with burst stimulation from the coronary sinus. The tachycardia cycle length was 286 milliseconds. The tachycardia with changes activation pattern in the coronary sinus from concentric to eccentric. On some occasions, it looked like typical atrial flutter. Therefore, the 1st ablation that was performed was typical atrial flutter ablation. Intracardiac echocardiography was performed. 3D electro anatomic mapping of the isthmus was performed. RF ablation of the isthmus was performed. A complete line of block was made and this resulted in the organization and lengthening of atrial tachycardia to make it eccentric only. Flutter line was successfully completed and then transseptal catheterization was performed. Heparin had already been started. Intracardiac echocardiography was used to delineate the fossa ovalis. Transseptal catheterization was performed. The mapping ablation catheter was placed in the left atrium. Next, for the next tachycardia, right atrial mapping was performed and right atrial An activation mapping was performed and left atrial activation mapping was performed. During left atrial activation mapping, termination of the tachycardia occurred up with the roof and when the scar map was evaluated, there was a gap in the scar map in the roof. RF ablation was performed yet and complete ablation was performed and the tachycardia was rendered noninducible. Once again with coronary sinus pacing at 180 milliseconds another tachycardia with a concentric activation pattern with a cycle length of 271 milliseconds was induced. Once again, 3D electro anatomic mapping of the right atrium was performed with PentaRay and 1 scan in the left atrium. This tachycardia seemed to be counter-clockwise around the mitral anulus and mitral reentry. Entrainment mapping was attempted, but we could not entrain the tachycardia despite multiple cycle lengths. RF ablation was performed at the lateral aspect of the mitral isthmus. This resulted in lengthening of the tachycardia at about 300 milliseconds but we could not terminate the tachycardia. Therefore, electroanatomic mapping was once again performed in the left atrial in the left atrium using the PentaRay catheter and once again we confirmed that was a mitral reentry not of focal atrial tachycardia. RF ablation was performed with a septal line and this resulted in further lengthening of the tachycardia at about 350 milliseconds. However, the tachycardia did not terminate. Therefore, once again, electroanatomic mapping of the left atrium was performed and the right atrium was performed. The right atrium was not the source of the tachycardia. The left atrium was the source of tachycardia and once again with mitral reentry and not any other focal oriented tachycardia at this time. This time we paced from the coronary sinus and the post pacing interval was about 9200 milliseconds, but the patient already had bilateral mitral isthmus ablation line as well as a complete septal ablation for left line. Endocardially both lines were completely. However, the coronary sinus was accessed with an ablation with the mapping ablation catheter with coronary sinus signals were sharp. Accessing the coronary sinus in the presence of a long sheath with an ablation catheter was extremely difficult on account of the tortuosity and the bend it took beyond the mid coronary sinus. However, the coronary sinus was accessed. The sheath was placed and mapping ablation catheter was placed inside the coronary sinus and RF ablation was performed within the coronary sinus and at a power of 25 orta on the atrial aspect right adjacent to the line epicardially (the lateral in mitral isthmus line). This did not result in termination of the tachycardia. Therefore, the right atrium was once again mapped to see if this was right atrial tachycardia and it was definitely not right atrial tachycardia. At this point, decision made to stop and the pace terminated this tachycardia from the coronary sinus. This was definitely mitral reentry but it was quite likely that because of the depth of the tissue, we could not perform a complete transmittable ablation. All catheters were then removed. Intracardiac echocardiography showed no evidence for pericardial effusion. Patient was extubated and transferred to telemetry. Heparin was stopped and reversed. RESULT: Diagnostic EP study and detailed electroanatomic mapping of the right and left atria multiple times during this seven hour procedure showed: 1. Typical atrial flutter with successful ablation. 2. The left atrial roof reentry status post successful ablation. 3. Mitral reentry status post partially successful ablation with lengthening of the cycle length of the tachycardia to about 350 milliseconds from a baseline of 271 milliseconds but no termination despite the lateral mitral isthmus line, a septal mitral isthmus line as well as epicardial ablation through the coronary sinus, but without occlusion of the coronary sinus. PLAN: If in the future, he continues to have these episodes, then I would use the vascular balloon to occlude the coronary sinus and then ablate endocardially and perhaps use half-normal saline for RF ablation. This was discussed with the patient's in detail. MMODL / IJN: [id number] /
[2019-06-18 06:48] LABS: Glucose,Whole Blood 385 mg/dL (75-99)
[2019-06-18] MEDS ORDERED: FLECAINIDE 50 MG TAB PO SCH (07:00)
[2019-06-18] MEDS: LACTATED RINGERS 1,000 ML IV SCH (07:21)
[2019-06-18] MEDS: SODIUM CHLORIDE 0.9% 1,000 ML IV SCH (07:21)
[2019-06-18] MEDS ORDERED: PANTOPRAZOLE 40 MG TABLET PO SCH (07:30)
[2019-06-18 08:03] VITALS: RESP 18
[2019-06-18] MEDS: INSULIN ASPART (NovoLOG) 100 UNIT/ML VIAL SQ SCH ×2 (08:04→11:38)
[2019-06-18] MEDS: APIXABAN 5 MG TAB PO SCH (08:05)
[2019-06-18] MEDS: hydrALAZINE HCL 50 MG TAB PO SCH (08:05)
[2019-06-18] MEDS: METOPROLOL TARTRATE 50 MG TAB PO SCH (08:05)
[2019-06-18] MEDS: DILTIAZEM ORAL 30 MG TAB PO SCH (08:06)
[2019-06-18] MEDS ORDERED: ISOSORBIDE MONONITRATE ER 30 MG TAB.ER.24H PO SCH (09:00)
[2019-06-18] MEDS ORDERED: LORATADINE 10 MG TAB PO SCH (09:00)
[2019-06-18] MEDS ORDERED: FUROSEMIDE 40 MG TAB PO SCH (09:00)
[2019-06-18 11:32] LABS: Glucose,Whole Blood 189 mg/dL (75-99)
--- NOTE | 2019-06-18 11:49 | P.NPCON ---
History of Present Illness - Reason for Consult chronic renal failure - History of Present Illness Reason for consultation: Chronic kidney disease Patient is a 64-year-old male seen in consultation for chronic kidney disease. Patient has chronic kidney disease stage III with baseline creatinine near 2. Creatinine was 2.3 as of June 15. Etiology is mostly diabetic kidney disease. Patient's serologic work up outpatient has been mostly negative except for slightly elevated free kappa light chains and urine electrophoresis suggestive of glomerular proteinuria. Patient does have diabetes mellitus since the age of 28. He is currently insulin-dependent. Patient states on Monday he developed episodes of chest discomfort especially with exertion. Patient does have history of atrial fibrillation. Patient went RF ablation yesterday. Hemodynamically stable. No vomiting or diarrhea. Good urine output. No hematuria or dysuria. Denies use of nonsteroidals. No fever or chills. Patient was seen and examined in the observation unit. Vital signs are stable. General: The patient appeared well nourished and normally developed. HEENT: Head exam is unremarkable. Neck is without jugular venous distension. LUNGS: Lungs are clear to auscultation and percussion. Breath sounds decreased. HEART: Rate and Rhythm are regular. First and second heart sounds normal. No murmurs, rubs or gallops. ABDOMEN: Abdominal exam reveals normal bowel sounds. Non-tender and non- distended. No evidence of peritonitis. EXTREMITITES: 1+ edema. Past Medical History Past Medical History: Atrial Fibrillation, Coronary Artery Disease (CAD), Chest Pain / Angina, Heart Failure, COPD, Diabetes Mellitus, GERD/Reflux, Hyperlipidemia, Hypertension, Liver Disease, Myocardial Infarction (CT), Prostate Disorder, Renal Disease, Skin Disorder Additional Past Medical History / Comment(s): Neuropathy bilateral feet, stage III chronic kidney disease, chronic CHF, liver cirrhosis, BPH, DJD, herniated discs low back, chronic low back pain, varicose veins bilaterally, anemia, past asbestos exposure, celiac disease, dermatitis herpetiformis. Last Myocardial Infarction Date:: 06/2018 History of Any Multi-Drug Resistant Organisms: None Reported Past Surgical History: Cholecystectomy, Heart Catheterization With Stent, Pacemaker, Tonsillectomy Additional Past Surgical History / Comment(s): PCI with STENTS x 3, bilateral cataracts removed with lens implants, colonoscopy. Past Anesthesia/Blood Transfusion Reactions: No Reported Reaction Date of Last Stent Placement:: 2017 Type of Cardiac Device: Permanent Pacemaker Device Placement Date:: 02/02/19 Past Psychological History: No Psychological Hx Reported Smoking Status: Former smoker Past Alcohol Use History: None Reported Past Drug Use History: None Reported - Past Family History Mother Family Medical History: Diabetes Mellitus Father Family Medical History: Myocardial Infarction (CT) Additional Family Medical History / Comment(s): Father had a CT in his 70s. Brother(s) Family Medical History: Myocardial Infarction (CT) Additional Family Medical History / Comment(s): Brother had a CT in his 50s. Medications and Allergies Home Medications Medication Instructions Recorded Confirmed Type Insulin Detemir (Levemir) [Levemir] 34 unit SQ HS 08/18/14 06/17/19 History Fluticasone Nasal [place] [Flonase 1 spray EA NOSTRIL BID 05/12/16 06/15/19 History Nasal [place]] Pravastatin Sodium [Pravachol] 40 mg PO HS 12/06/17 06/17/19 History hydrALAZINE HCL [Apresoline] 100 mg PO TID #90 tab 06/07/18 06/17/19 Rx Nitroglycerin Sl Tabs [Nitrostat] 0.4 mg SUBLINGUAL Q5M PRN #25 tab 06/28/18 06/15/19 Rx Cholecalciferol [Vitamin D3 (25 3,000 unit PO PC-BRKFST 08/26/18 06/17/19 History Mcg = 1000 Iu)] Isosorbide Mononitrate ER [Imdur] 30 mg PO DAILY 01/16/19 06/17/19 History Pantoprazole [Protonix] 40 mg PO DAILY 01/16/19 06/17/19 History INSULIN ASPART (NovoLOG) [NovoLOG See Protocol SQ TID-W/MEALS 02/12/19 06/17/19 History (formulary)] Montelukast [Singulair] 10 mg PO HS 02/12/19 06/17/19 History Diltiazem Oral [Cardizem*] 90 mg PO TID #90 tab 02/14/19 06/17/19 Rx Clopidogrel [Plavix] 75 mg PO HS 02/15/19 06/17/19 History Loratadine [Claritin] 10 mg PO DAILY 03/28/19 06/17/19 History Magnesium. 300 mg PO DAILY 03/28/19 06/17/19 History Metoprolol Tartrate [Lopressor] 100 mg PO BID 03/28/19 06/17/19 History Apixaban [Eliquis] 5 mg PO BID #60 tab 04/03/19 06/17/19 Rx Flecainide [Tambocor] 50 mg PO Q12HR@0700,1900 #60 tab 04/10/19 06/17/19 Rx Furosemide [Lasix] 40 mg PO BID@0900,1600 #60 tab 04/10/19 06/17/19 Rx Ipratropium-Albuterol Nebulize 3 ml INHALATION RT-QID PRN 06/12/19 06/17/19 History [Duoneb 0.5 mg-3 mg/3 ml Soln] Allergies Allergy/AdvReac Type Severity Reaction Status Date / Time amoxicillin Allergy Anaphylaxis Verified 06/17/19 22:03 cephalexin monohydrate Allergy Rash/Hives Verified 06/17/19 22:03 [From Keflex] clindamycin Allergy Rash/Hives Verified 06/17/19 22:03 Penicillins Allergy Rash/Hives Verified 06/17/19 22:03 Sulfa (Sulfonamide Allergy Anaphylaxis Verified 06/17/19 22:03 Antibiotics) sulfamethoxazole Allergy Anaphylaxis Verified 06/17/19 22:03 [From Bactrim] trimethoprim [From Bactrim] Allergy Anaphylaxis Verified 06/17/19 22:03 amlodipine AdvReac Swelling Verified 06/17/19 22:03 carvedilol AdvReac "MAKES ME Verified 06/17/19 22:03 JERILYN" Physical Exam Vitals: Vital Signs Temp Pulse Pulse Resp BP BP Pulse Ox 06/18/19 08:00 97.4 F L 70 18 157/66 94 L 06/18/19 04:00 97.8 F 68 16 134/74 98 06/17/19 23:27 73 146/72 94 L 06/17/19 23:00 71 152/72 93 L 06/17/19 22:30 69 151/80 92 L 06/17/19 22:15 68 151/75 94 L 06/17/19 22:00 67 142/67 93 L 06/17/19 21:45 69 151/72 93 L 06/17/19 21:30 97.9 F 67 16 158/76 93 L 06/17/19 21:10 66 18 152/80 96 06/17/19 20:55 64 18 158/4 96 06/17/19 20:43 97 F L 62 16 153/74 96 Intake and Output 06/17/19 06/18/19 06/18/19 22:59 06:59 14:59 Intake Total 1439 Output Total 1850 Balance -411 Intake: IV 1439 Output: Urine 1850 Other: Voiding Method Indwelling Catheter Toilet Toilet # Voids 1 # Bowel Movements 1 Assessment and Plan Plan: Assessment: 1. Chronic kidney disease stage III most likely secondary to diabetic kidney disease with baseline creatinine near 2. 2. Proteinuria. Serologic workup negative except for elevated kappa chains and urine electrophoresis suggestive of glomerular proteinuria. Will discuss kidney biopsy with him outpatient. 3. A. fib with RVR maintained on Lopressor, Cardizem. Also on anti- coagulation. Status post ablation on June 17. 4. Lower extremity edema. Maintain on Lasix. 5. Insulin-dependent diabetes mellitus. 6. Diastolic CHF. Plan: Maintain Lasix 40 mg orally twice daily. Advised low salt diet. Follow up outpatient. Patient has an appointment on Monday. Thank you for the consultation. I will continue to follow the patient with you during his hospital stay.
[2019-06-18 12:18] VITALS: BP 146/78; PULSE 71; TEMP 97.5
--- NOTE | 2019-06-18 13:14 | P.PCN ---
Preoperative Diagnosis: Pacemaker interrogation post atrial tachycardia ablation Cinefluoroscopy at the end of the procedure showed that the atrial and ventricul ar leads were in stable position Atrial lead impedance 342 ohms, atrial pacing threshold 0.8 V at 0.4 ms, P waves 1.3 mV RV pacing impedance 456 ohms, pacing threshold 0.8 V at 0.4 ms, R waves greater than 20 mV Device programmed to AAI are-DDDR, 50-130 bpm Impression Normal pacemaker interrogation and parameters post atrial tachycardia ablation
--- NOTE | 2019-06-18 17:49 | P.DS ---
Providers Attending physician: Alfonso Fitch Primary care physician: [facility] Course: Patient is doing well. No dizziness lightheadedness chest discomfort or shortness of breath Groins of healed well no hematoma no tenderness he is ambulating in the hallways He is afebrile 97.5F, pulse rate in the 70s, normal respirations Blood pressure 146/78 mmHg afebrile Breath sounds are clear no rhonchi no crackles Heart sounds are normal no murmurs developed rub Abdomen soft nontender Extremities warm no edema Impression Recurrent symptomatic atrial tachycardia with RVR. Underwent a diagnostic EP study yesterday Induced an atrial tachyarrhythmia with varying CS activation patterns alternating between concentric and eccentric pattern Successful atrial flutter ablation. Thereafter he had an eccentric CS atrial activation pattern only Mechanical termination in the roof at the site of In the roof line status post successful ablation. This tachycardia could not be induced again Thereafter EP study revealed induction of the third atrial tachycardia with concentric activation which was mapped to the mitral annulus, mitral annulus reentry Partial success with lengthening of the tachycardia cycle length from 271 ms to 350 ms. Thick isthmus Mitral isthmus line laterally which is complete but partially successful A septal line was made which is Ultram for the lengthening of the tachycardia cycle length without termination. Ablation within the coronary sinus was perfo rmed without termination History of symptomatic atrial fibrillation drug refractory status post cryoablation of the pulmonary veins in the past Plan Continue antiplatelet she'll continue current medications follow-up with her anthony/Dr. Morgan with a week If in the future he has a recurrence of atrial tachycardia secondary to mitral reentry, occlusion of the coronary sinus the vascular balloon followed by endocardial ablation with half normal saline will be performed Discussed with the patient and his Plan - Discharge Summary Discharge Rx Participant: No New Discharge Prescriptions: Continue Insulin Detemir (Levemir) [Levemir] 34 unit SQ HS Fluticasone Nasal [place] [Flonase Nasal [place]] 1 spray EA NOSTRIL BID Pravastatin Sodium [Pravachol] 40 mg PO HS hydrALAZINE HCL [Apresoline] 100 mg PO TID #90 tab Nitroglycerin Sl Tabs [Nitrostat] 0.4 mg SUBLINGUAL Q5M PRN #25 tab PRN Reason: Chest Pain Cholecalciferol [Vitamin D3 (25 Mcg = 1000 Iu)] 3,000 unit PO PC-BRKFST Isosorbide Mononitrate ER [Imdur] 30 mg PO DAILY Pantoprazole [Protonix] 40 mg PO DAILY Montelukast [Singulair] 10 mg PO HS INSULIN ASPART (NovoLOG) [NovoLOG (formulary)] See Protocol SQ TID-W/MEALS Diltiazem Oral [Cardizem*] 90 mg PO TID #90 tab Clopidogrel [Plavix] 75 mg PO HS Metoprolol Tartrate [Lopressor] 100 mg PO BID Loratadine [Claritin] 10 mg PO DAILY Magnesium. 300 mg PO DAILY Apixaban [Eliquis] 5 mg PO BID #60 tab Furosemide [Lasix] 40 mg PO BID@0900,1600 #60 tab Flecainide [Tambocor] 50 mg PO Q12HR@0700,1900 #60 tab Ipratropium-Albuterol Nebulize [Duoneb 0.5 mg-3 mg/3 ml Soln] 3 ml INHALATION RT-QID PRN PRN Reason: Shortness Of Breath Discharge Medication List Insulin Detemir (Levemir) [Levemir] 34 unit SQ HS 08/18/14 [History] Fluticasone Nasal [place] [Flonase Nasal [place]] 1 spray EA NOSTRIL BID 05/12/16 [History] Pravastatin Sodium [Pravachol] 40 mg PO HS 12/06/17 [History] hydrALAZINE HCL [Apresoline] 100 mg PO TID #90 tab 06/07/18 [Rx] Nitroglycerin Sl Tabs [Nitrostat] 0.4 mg SUBLINGUAL Q5M PRN #25 tab 06/28/18 [Rx] Cholecalciferol [Vitamin D3 (25 Mcg = 1000 Iu)] 3,000 unit PO PC-BRKFST 08/26/18 [History] Isosorbide Mononitrate ER [Imdur] 30 mg PO DAILY 01/16/19 [History] Pantoprazole [Protonix] 40 mg PO DAILY 01/16/19 [History] INSULIN ASPART (NovoLOG) [NovoLOG (formulary)] See Protocol SQ TID-W/MEALS 02/12/19 [History] Montelukast [Singulair] 10 mg PO HS 02/12/19 [History] Diltiazem Oral [Cardizem*] 90 mg PO TID #90 tab 02/14/19 [Rx] Clopidogrel [Plavix] 75 mg PO HS 02/15/19 [History] Loratadine [Claritin] 10 mg PO DAILY 03/28/19 [History] Magnesium. 300 mg PO DAILY 03/28/19 [History] Metoprolol Tartrate [Lopressor] 100 mg PO BID 03/28/19 [History] Apixaban [Eliquis] 5 mg PO BID #60 tab 04/03/19 [Rx] Flecainide [Tambocor] 50 mg PO Q12HR@0700,1900 #60 tab 04/10/19 [Rx] Furosemide [Lasix] 40 mg PO BID@0900,1600 #60 tab 04/10/19 [Rx] Ipratropium-Albuterol Nebulize [Duoneb 0.5 mg-3 mg/3 ml Soln] 3 ml INHALATION RT-QID PRN 06/12/19 [History] Follow up Appointment(s)/Referral(s): Alfonso Fitch MD [STAFF PHYSICIAN] - 06/26/19 10:15 am () Activity/Diet/Wound Care/Special Instructions: Post EP study - Ablation instructions 1. Keep access sites dry for 2 days. 2. No heavy lifting or straining for 2 days. 3. Avoid bending the hips repeatedly for 2 days. 4. You may go up and down stairs slowly Call if the following is noted 1. Bleeding, increasing swelling or pain at the access sites. 2. Increasing chest discomfort, especially upon taking a deep breath. 3. Increasing shortness of breath, at rest or with exertion. 4. Undue cough / phlegm 5. Difficulty or pain while swallowing. 6. Pain or change in color in the extremities. 7. Fever, chills, rigors. 8. Increasing headache or neurologic symptoms. 9. Dizziness, fainting, palpitations Discharge Disposition: HOME SELF-CARE
== END 2019-06-18 16:20 | disposition home or self-care (01) ==
LOC: CATHEP 10:48 → 1SOBS 19:58 → CATHEP 06-18 16:20
PROVIDERS: ATTEND Internal Medicine Clinical Cardiac Electrophysiology
DX: I47.1 Supraventricular tachycardia (principal); I48.1 Persistent atrial fibrillation; Z95.5 Presence of coronary angioplasty implant and graft; I48.92 Unspecified atrial flutter; E78.2 Mixed hyperlipidemia; Z45.018 Encounter for adjustment and management of other part of cardiac pacemaker; I25.119 Atherosclerotic heart disease of native coronary artery with unspecified angina pectoris; I13.0 Hypertensive heart and chronic kidney disease with heart failure and stage 1 through stage 4 chronic kidney disease, or unspecified chronic kidney disease; I50.9 Heart failure, unspecified; E11.22 Type 2 diabetes mellitus with diabetic chronic kidney disease; N18.3 Chronic kidney disease, stage 3 (moderate); I50.32 Chronic diastolic (congestive) heart failure; Z79.4 Long term (current) use of insulin; E11.42 Type 2 diabetes mellitus with diabetic polyneuropathy; Z87.891 Personal history of nicotine dependence; I25.2 Old myocardial infarction; E78.5 Hyperlipidemia, unspecified; R82.90 Unspecified abnormal findings in urine; D80.8 Other immunodeficiencies with predominantly antibody defects; J44.9 Chronic obstructive pulmonary disease, unspecified; N40.0 Benign prostatic hyperplasia without lower urinary tract symptoms; K21.9 Gastro-esophageal reflux disease without esophagitis; K74.60 Unspecified cirrhosis of liver; D64.9 Anemia, unspecified; G89.29 Other chronic pain; M51.26 Other intervertebral disc displacement, lumbar region; Z77.090 Contact with and (suspected) exposure to asbestos; K90.0 Celiac disease; Z90.49 Acquired absence of other specified parts of digestive tract; Z83.3 Family history of diabetes mellitus; Z82.49 Family history of ischemic heart disease and other diseases of the circulatory system; Z79.01 Long term (current) use of anticoagulants; Z79.02 Long term (current) use of antithrombotics/antiplatelets; Z79.82 Long term (current) use of aspirin; Z79.899 Other long term (current) drug therapy; Z88.1 Allergy status to other antibiotic agents; Z88.0 Allergy status to penicillin; Z88.2 Allergy status to sulfonamides; Z91.09 Other allergy status, other than to drugs and biological substances; Z88.8 Allergy status to other drugs, medicaments and biological substances
CPT/HCPCS: 85347; 93662; 93613; 93656; C1769 ×5; C1894; C1730 ×2; C1731; C1759; C1893; C1732; J2250; J3370; J1644 ×3; J1940; J2710; J2001; J3010; J2370; J0330; J2704; Q9966

== ENCOUNTER 2019-06-24 18:17 | Inpatient (IN) | payer MEDICARE ==
[2019-06-24] MEDS ORDERED: methylPREDNISolone SOD SUCCI 125 MG/2 ML VIAL IV STA (18:39)
[2019-06-24] MEDS ORDERED: IPRATROPIUM-ALBUTEROL 3 ML NEB INHALATION STA (18:39)
--- NOTE | 2019-06-24 18:44 | ED ---
General Adult HPI - General Source: patient, EMS, RN notes reviewed, old records reviewed Mode of arrival: EMS Limitations: no limitations <Peter Moore - Last Filed: 06/24/19 20:13> <Clay Lino - Last Filed: 06/24/19 20:26> - General Stated complaint: SOB Time Seen by Provider: 06/24/19 18:20 - History of Present Illness Initial comments: 64-year-old male patient past medical history of CHF, CKD, COPD, type 2 diabetes presents ED chief complaint shortness of breath for 2 days. Patient did have a ablation procedure for atrial fibrillation approximately one week ago. Patient reports that the last 2 days he has had runs of breath. Patient also grossly has had a 10 pound weight gain over this time. Patient was a had some mild chest heaviness yesterday which resolved with a breathing treatment and a nitro. Patient not complaining of any chest heaviness or any pain today. Patient denies any other pain, or any other associated symptoms. Denies other complaints. Systemic: Pt denies fatigue, fever/chills, rash. Pt denies weakness, night sweats, weight loss. Neuro: Pt denies headache, visual disturbances, syncope or pre-syncope. HEENT: Pt denies ocular discharge or irritation, otalgia, rhinorrhea, pharyngitis or notable lymphadenopathy. Cardiopulmonary: Pt denies chest pain, heart palpitations, dyspnea on exertion. Abdominal/GI: Pt denies abdominal pain, n/v/d. : Pt denies dysuria, burning w/ urination, frequency/urgency. Denies new onset urinary or bowel incontinence. MSK: Pt denies myalgia, loss of strength or function in extremities. Neuro: Pt denies new onset weakness, paresthesias. (Peter Moore) - Related Data Home Medications Medication Instructions Recorded Confirmed Insulin Detemir (Levemir) [Levemir] 34 unit SQ HS 08/18/14 06/24/19 Fluticasone Nasal [place] [Flonase 1 spray EA NOSTRIL BID 05/12/16 06/24/19 Nasal [place]] Pravastatin Sodium [Pravachol] 40 mg PO HS 12/06/17 06/24/19 Cholecalciferol [Vitamin D3 (25 3,000 unit PO PC-BRKFST 08/26/18 06/24/19 Mcg = 1000 Iu)] Isosorbide Mononitrate ER [Imdur] 30 mg PO DAILY 01/16/19 06/24/19 Pantoprazole [Protonix] 40 mg PO DAILY 01/16/19 06/24/19 INSULIN ASPART (NovoLOG) [NovoLOG See Protocol SQ TID-W/MEALS 02/12/19 06/24/19 (formulary)] Montelukast [Singulair] 10 mg PO HS 02/12/19 06/24/19 Clopidogrel [Plavix] 75 mg PO HS 02/15/19 06/24/19 Loratadine [Claritin] 10 mg PO DAILY 03/28/19 06/24/19 Magnesium. 300 mg PO DAILY 03/28/19 06/24/19 Metoprolol Tartrate [Lopressor] 100 mg PO BID 03/28/19 06/24/19 Ipratropium-Albuterol Nebulize 3 ml INHALATION RT-QID PRN 06/12/19 06/24/19 [Duoneb 0.5 mg-3 mg/3 ml Soln] Allopurinol [Zyloprim] 100 mg PO DAILY 06/24/19 06/24/19 Diltiazem Oral [Cardizem*] 90 mg PO BID 06/24/19 06/24/19 Vitamin B Complex 1 cap PO DAILY 06/24/19 06/24/19 Previous Rx's Medication Instructions Recorded hydrALAZINE HCL [Apresoline] 100 mg PO TID #90 tab 06/07/18 Nitroglycerin Sl Tabs [Nitrostat] 0.4 mg SUBLINGUAL Q5M PRN #25 tab 06/28/18 Apixaban [Eliquis] 5 mg PO BID #60 tab 04/03/19 Flecainide [Tambocor] 50 mg PO Q12HR@0700,1900 #60 tab 04/10/19 Furosemide [Lasix] 40 mg PO BID@0900,1600 #60 tab 04/10/19 Allergies Allergy/AdvReac Type Severity Reaction Status Date / Time amoxicillin Allergy Anaphylaxis Verified 06/24/19 19:25 cephalexin monohydrate Allergy Rash/Hives Verified 06/24/19 19:25 [From Keflex] clindamycin Allergy Rash/Hives Verified 06/24/19 19:25 Penicillins Allergy Rash/Hives Verified 06/24/19 19:25 Sulfa (Sulfonamide Allergy Anaphylaxis Verified 06/24/19 19:25 Antibiotics) sulfamethoxazole Allergy Anaphylaxis Verified 06/24/19 19:25 [From Bactrim] trimethoprim [From Bactrim] Allergy Anaphylaxis Verified 06/24/19 19:25 amlodipine AdvReac Swelling Verified 06/24/19 19:25 carvedilol AdvReac "MAKES ME Verified 06/24/19 19:25 JERILYN" Review of Systems ROS Other: All systems not noted in ROS Statement are negative. <Peter Moore - Last Filed: 06/24/19 20:13> ROS Other: All systems not noted in ROS Statement are negative. <Clay Lino - Last Filed: 06/24/19 20:26> ROS Statement: Those systems with pertinent positive or pertinent negative responses have been documented in the HPI. Past Medical History Past Medical History: Atrial Fibrillation, Coronary Artery Disease (CAD), Chest Pain / Angina, Heart Failure, COPD, Diabetes Mellitus, GERD/Reflux, Hyperlipidemia, Hypertension, Liver Disease, Myocardial Infarction (PA), Prostate Disorder, Renal Disease, Skin Disorder Additional Past Medical History / Comment(s): Neuropathy bilateral feet, stage III chronic kidney disease, chronic CHF, liver cirrhosis, BPH, DJD, herniated discs low back, chronic low back pain, varicose veins bilaterally, anemia, past asbestos exposure, celiac disease, dermatitis herpetiformis. Last Myocardial Infarction Date:: 06/2018 History of Any Multi-Drug Resistant Organisms: None Reported Past Surgical History: Cholecystectomy, Heart Catheterization With Stent, Pacemaker, Tonsillectomy Additional Past Surgical History / Comment(s): PCI with STENTS x 3, bilateral cataracts removed with lens implants, colonoscopy. Past Anesthesia/Blood Transfusion Reactions: No Reported Reaction Date of Last Stent Placement:: 2017 Type of Cardiac Device: Permanent Pacemaker Device Placement Date:: 02/02/19 Past Psychological History: No Psychological Hx Reported Smoking Status: Former smoker Past Alcohol Use History: None Reported Past Drug Use History: None Reported - Past Family History Mother Family Medical History: Diabetes Mellitus Father Family Medical History: Myocardial Infarction (PA) Additional Family Medical History / Comment(s): Father had a PA in his 70s. Brother(s) Family Medical History: Myocardial Infarction (PA) Additional Family Medical History / Comment(s): Brother had a PA in his 50s. <Peter Moore - Last Filed: 06/24/19 20:13> General Exam Limitations: no limitations <Peter Moore - Last Filed: 06/24/19 20:13> - General Exam Comments Initial Comments: Constitutional: NAD, AOX3, Pt has pleasant affect. HEENT: NC/AT, trachea midline, neck supple, no lymphadenopathy. Posterior pharynx non erythematous, without exudates. External ears appear normal, without discharge. Mucous membranes moist. Eyes PERRLA, EOM intact. There is no scleral icterus. No pallor noted. Cardiopulmonary: RRR, no murmurs, rubs or gallops, no JVD noted. Lungs CTAB in anterior and posterior tobias. No peripheral edema. Abdominal exam: Abdomen soft and non-distended. Abdomen non-tender to palpation in all 4 quadrants. Bowel sounds active in LLQ. No hepatosplenomegaly. No ecchymosis Neuro: CN II-XII grossly intact. No nuchal rigidity. No raccon eyes, no forrester sign, no hemotympanum. No cervical spinal tenderness. MSK: No posterior calf tenderness bilaterally, homans sign negative bilaterally. Posterior tibialis and radial pulse +2 bilaterally. Sensation intact in upper and lower extremities. Full active ROM in upper and lower extremities, 5/5 stregnth. (OscarPeter Louie) Course <Clay Lino - Last Filed: 06/24/19 20:26> Vital Signs 06/24/19 06/24/19 06/24/19 18:39 18:55 19:12 Temperature 101.3 F H Pulse Rate 76 76 76 Respiratory 22 Rate Blood Pressure 150/73 O2 Sat by Pulse 85 L Oximetry 06/24/19 19:30 Temperature Pulse Rate 79 Respiratory 22 Rate Blood Pressure 121/71 O2 Sat by Pulse 94 L Oximetry - Reevaluation(s) Reevaluation #1: 06/24/19 20:25 [place] supervision: I pursued face face evaluation the patient he does demonstrate shortness of breath with basilar rales his workup does appear to be consistent with CHF and COPD exacerbation he also does have a elevated temperature and will be treated with antibiotics. I did discuss the case with Dr. Mccarty. (Clay Lino) Medical Decision Making - Lab Data Result diagrams: 06/24/19 18:48 06/24/19 18:48 - EKG Data -: EKG Interpreted by Me (and Dr. Lino ) <Peter Moore - Last Filed: 06/24/19 20:13> - Lab Data Result diagrams: 06/24/19 18:48 06/24/19 18:48 <Clay Lino - Last Filed: 06/24/19 20:26> - Medical Decision Making 64-year-old male patient past medical history of CHF, CKD, COPD, type 2 diabetes presents ED chief complaint shortness of breath for 2 days. Patient did have a ablation procedure for atrial fibrillation approximately one week ago. Patient reports that the last 2 days he has had runs of breath. Patient also grossly has had a 10 pound weight gain over this time. Patient was a had some mild chest heaviness yesterday which resolved with a breathing treatment and a nitro. Patient not complaining of any chest heaviness or any pain today. Patient denies any other pain, or any other associated symptoms. Denies other complaints. Patient initial vital signs displayed hypoxia, fever. Patient responded well to breathing treatment, was at 98%. Patient currently saturating at 94-95% on 4 L nasal cannula. In no distress. Physical examhe pathology. No peripheral edema. Laboratory investigations revealed leukocytosis, hemoglobin of 9.1. Patient reportedly has an deficiency anemia which she is scheduled to receive iron infusions. Laboratory investigations revealed creatinine of 2.3 down to around patient's baseline. BNP elevated at 5210. Troponin mildly elevated at 0.069 in context of chronic kidney disease. No current chest pain. UA negative. Chest x-ray revealed mild CHF exacerbation. He do not concerning for acute ischemia. Patient was started on prophylactic antibiotics for possible pneumonia. Patient be admitted for CHF exacerbation, COPD exacerbation, troponins will be trended. Cardiology nephrology pulmonology will be consulted. Case discussed and patient seen by Dr. Lino. (Peter Moore) - Lab Data Lab Results 06/24/19 06/24/19 06/24/19 Range/Units 18:48 18:48 18:48 WBC 17.1 H (3.8-10.6) k/uL RBC 4.02 L (4.30-5.90) m/uL Hgb 9.1 L (13.0-17.5) gm/dL Hct 31.1 L (39.0-53.0) % MCV 77.4 L (80.0-100.0) fL MCH 22.7 L (25.0-35.0) pg MCHC 29.4 L (31.0-37.0) g/dL RDW 16.7 H (11.5-15.5) % Plt Count 257 (150-450) k/uL Neutrophils % 93 % Lymphocytes % 2 % Monocytes % 3 % Eosinophils % 0 % Basophils % 0 % Neutrophils # 15.8 H (1.3-7.7) k/uL Lymphocytes # 0.4 L (1.0-4.8) k/uL Monocytes # 0.6 (0-1.0) k/uL Eosinophils # 0.1 (0-0.7) k/uL Basophils # 0.0 (0-0.2) k/uL Hypochromasia Slight Anisocytosis Slight Microcytosis Slight PT (9.0-12.0) sec INR (<1.2) APTT (22.0-30.0) sec Sodium 134 L (137-145) mmol/L Potassium 4.5 (3.5-5.1) mmol/L Chloride 94 L (98-107) mmol/L Carbon Dioxide 30 (22-30) mmol/L Anion Gap 10 mmol/L BUN 61 H (9-20) mg/dL Creatinine 2.39 H (0.66-1.25) mg/dL Est GFR (CKD-EPI)AfAm 32 (>60 ml/min/1.73 sqM) Est GFR (CKD-EPI)NonAf 28 (>60 ml/min/1.73 sqM) Glucose 145 H (74-99) mg/dL Calcium 9.1 (8.4-10.2) mg/dL Magnesium 2.3 (1.6-2.3) mg/dL Total Bilirubin 0.6 (0.2-1.3) mg/dL AST 52 (17-59) U/L ALT 68 (21-72) U/L Alkaline Phosphatase 140 H (38-126) U/L Troponin I (0.000-0.034) ng/mL NT-Pro-B Natriuret Pep 5210 pg/mL Total Protein 6.8 (6.3-8.2) g/dL Albumin 3.9 (3.5-5.0) g/dL Urine Color Urine Appearance (Clear) Urine pH (5.0-8.0) Ur Specific [place] (1.001-1.035) Urine Protein (Negative) Urine Glucose (UA) (Negative) Urine Ketones (Negative) Urine Blood (Negative) Urine Nitrite (Negative) Urine Bilirubin (Negative) Urine Urobilinogen (<2.0) mg/dL Ur Leukocyte Esterase (Negative) Urine RBC (0-5) /hpf Urine WBC (0-5) /hpf Ur Squamous Epith Cells (0-4) /hpf 06/24/19 06/24/19 06/24/19 Range/Units 18:48 18:48 18:48 WBC (3.8-10.6) k/uL RBC (4.30-5.90) m/uL Hgb (13.0-17.5) gm/dL Hct (39.0-53.0) % MCV (80.0-100.0) fL MCH (25.0-35.0) pg MCHC (31.0-37.0) g/dL RDW (11.5-15.5) % Plt Count (150-450) k/uL Neutrophils % % Lymphocytes % % Monocytes % % Eosinophils % % Basophils % % Neutrophils # (1.3-7.7) k/uL Lymphocytes # (1.0-4.8) k/uL Monocytes # (0-1.0) k/uL Eosinophils # (0-0.7) k/uL Basophils # (0-0.2) k/uL Hypochromasia Anisocytosis Microcytosis PT 10.2 (9.0-12.0) sec INR 0.9 (<1.2) APTT 27.9 (22.0-30.0) sec Sodium (137-145) mmol/L Potassium (3.5-5.1) mmol/L Chloride (98-107) mmol/L Carbon Dioxide (22-30) mmol/L Anion Gap mmol/L BUN (9-20) mg/dL Creatinine (0.66-1.25) mg/dL Est GFR (CKD-EPI)AfAm (>60 ml/min/1.73 sqM) Est GFR (CKD-EPI)NonAf (>60 ml/min/1.73 sqM) Glucose (74-99) mg/dL Calcium (8.4-10.2) mg/dL Magnesium (1.6-2.3) mg/dL Total Bilirubin (0.2-1.3) mg/dL AST (17-59) U/L ALT (21-72) U/L Alkaline Phosphatase (38-126) U/L Troponin I 0.069 H* (0.000-0.034) ng/mL NT-Pro-B Natriuret Pep pg/mL Total Protein (6.3-8.2) g/dL Albumin (3.5-5.0) g/dL Urine Color Yellow Urine Appearance Clear (Clear) Urine pH 8.0 (5.0-8.0) Ur Specific [place] 1.011 (1.001-1.035) Urine Protein 1+ H (Negative) Urine Glucose (UA) Negative (Negative) Urine Ketones Negative (Negative) Urine Blood Negative (Negative) Urine Nitrite Negative (Negative) Urine Bilirubin Negative (Negative) Urine Urobilinogen <2.0 (<2.0) mg/dL Ur Leukocyte Esterase Negative (Negative) Urine RBC 3 (0-5) /hpf Urine WBC <1 (0-5) /hpf Ur Squamous Epith Cells <1 (0-4) /hpf - EKG Data EKG Comments: Ventricular rate 78, ME interval 206, QRS 120, QT/QTc 03/22/1941. Sinus rhythm with occasional PVC. Incomplete left lower branch block. No concern for acute ischemia, no significant change from prior. (Peter Moore) Disposition <Peter Moore - Last Filed: 06/24/19 20:13> <Clay Lino - Last Filed: 06/24/19 20:26> Clinical Impression: CHF exacerbation, COPD exacerbation, CKD (chronic kidney disease), Elevated troponin, Febrile illness, acute Disposition: ADMITTED IP TO THIS [facility] Condition: Serious Referrals: Ivy Valentine DO [Primary Care Provider] - 1-2 days
[2019-06-24 19:11] LABS: Anisocytosis Slight; Basophils % (A) 0 %; Eosinophils # (A) 0.1 k/uL (0-0.7); Eosinophils % (A) 0 %; HCT 31.1 % (39.0-53.0); HGB 9.1 gm/dL (13.0-17.5); Hypochromasia Slight; Lymphocytes # (A) 0.4 k/uL (1.0-4.8); Lymphocytes % (A) 2 %; MCH 22.7 pg (25.0-35.0); MCHC 29.4 g/dL (31.0-37.0); MCV 77.4 fL (80.0-100.0); Mean Platelet Volume 7.9; Microcytosis Slight; Monocytes # (A) 0.6 k/uL (0-1.0); Monocytes % (A) 3 %; Neutrophils # (A) 15.8 k/uL (1.3-7.7); Neutrophils % (A) 93 %; Platelet Count 257 k/uL (150-450); RBC 4.02 m/uL (4.30-5.90); RDW 16.7 % (11.5-15.5); WBC 17.1 k/uL (3.8-10.6)
[2019-06-24] MEDS ORDERED: ACETAMINOPHEN TAB 325 MG TAB PO STA (19:14)
[2019-06-24 19:15] LABS: Appearance,Urine Clear (Clear); Bilirubin,Urine Negative (Negative); Blood,Urine Negative (Negative); Color,Urine Yellow; Glucose,Urine (UA) Negative (Negative); Ketones,Urine Negative (Negative); Leukocyte Esterase,Urine Negative (Negative); Nitrite,Urine Negative (Negative); Protein,Urine 1+ (Negative); RBC,Urine 3 /hpf (0-5); Specific Gravity,Urine 1.011 (1.001-1.035); Squamous Epithelial Cell,Urine <1 /hpf (0-4); Urobilinogen,Urine <2.0 mg/dL (<2.0); WBC,Urine <1 /hpf (0-5)
[2019-06-24 19:20] LABS: Albumin 3.9 g/dL (3.5-5.0); Calcium 9.1 mg/dL (8.4-10.2); Magnesium 2.3 mg/dL (1.6-2.3); Potassium 4.5 mmol/L (3.5-5.1); Total Bilirubin 0.6 mg/dL (0.2-1.3); Total Protein 6.8 g/dL (6.3-8.2)
[2019-06-24 19:22] LABS: INR 0.9 (<1.2); Partial Thromboplastin Time 27.9 sec (22.0-30.0); Prothrombin Time 10.2 sec (9.0-12.0)
--- NOTE | 2019-06-24 19:48 | XR ---
EXAMINATION TYPE: XR chest 2V DATE OF EXAM: 06/24/2019 COMPARISON: 06/14/2019 HISTORY: Short of breath TECHNIQUE: Frontal and lateral views of the chest are obtained. FINDINGS: Heart and mediastinum are normal. There is mild pulmonary interstitial edema. There is albino e blunting of the costophrenic angles. There is a left axillary pacemaker. There are chest leads. IMPRESSION: There is evidence of mild congestive heart failure that is a change compared to recent e xam. Small pleural effusions.
[2019-06-24] MEDS ORDERED: LEVOFLOXACIN 750MG-D5W PMX 750 MG in DEXTROSE/WATER 1 150ML.BAG IVPB STA ×2 (20:08→22:33)
[2019-06-24] MEDS ORDERED: NITROGLYCERIN SL TABS 0.4 MG TAB SUBLINGUAL PRN (20:15)
[2019-06-24] MEDS ORDERED: LEVOFLOXACIN 750MG-D5W PMX 750 MG in DEXTROSE/WATER 1 150ML.BAG IVPB SCH (20:15)
[2019-06-24] MEDS ORDERED: FUROSEMIDE 10 MG/ML 4 ML VIAL IV STA (20:23)
[2019-06-24] MEDS: methylPREDNISolone SOD SUCCI 125 MG/2 ML VIAL IV SCH (22:23)
[2019-06-25] MEDS: methylPREDNISolone SOD SUCCI 125 MG/2 ML VIAL IV SCH ×2 (02:13→06:20)
[2019-06-25] MEDS ORDERED: ASPIRIN 325 MG TAB PO SCH (02:14)
[2019-06-25 02:30] VITALS: BMI 28.9
[2019-06-25 06:17] LABS: Glucose,Whole Blood 568 mg/dL (75-99)
[2019-06-25 06:17] LABS: Glucose,Whole Blood 541 mg/dL (75-99)
[2019-06-25] MEDS ORDERED: INSULIN ASPART (NovoLOG) 100 UNIT/ML VIAL SQ ONE ×3 (06:33→17:19)
[2019-06-25 06:36] LABS: Cholesterol 126 mg/dL (<200); HDL Cholesterol 41 mg/dL (40-60); LDL Cholesterol,Calculated 72 mg/dL (0-99); Triglycerides 66 mg/dL (<150)
[2019-06-25] MEDS: IPRATROPIUM-ALBUTEROL 3 ML NEB INHALATION SCH ×4 (07:43→21:07)
[2019-06-25] MEDS: ASPIRIN 325 MG TAB PO SCH (08:39)
[2019-06-25] MEDS ORDERED: FUROSEMIDE 10 MG/ML 4 ML VIAL IV SCH (09:00)
[2019-06-25 09:42] LABS: Glucose,Whole Blood >600 mg/dL (75-99)
[2019-06-25 09:43] LABS: Glucose,Whole Blood >600 mg/dL (75-99)
[2019-06-25] MEDS ORDERED: NITROGLYCERIN SL TABS 0.4 MG TAB SUBLINGUAL PRN (09:52)
--- NOTE | 2019-06-25 10:02 | P.NPCON ---
History of Present Illness - Reason for Consult acute renal failure, chronic renal failure - History of Present Illness Reason for consultation: Chronic kidney disease Patient is a 64-year-old male seen in renal consultation for acute kidney injury on chronic kidney disease. Patient was seen and examined in the ER. Patient has chronic kidney disease stage III with baseline creatinine near 2. Patient was admitted to the hospital because ago and underwent ablation for atrial fibrillation. At that time creatinine was in the range of 2.3-2.5. It is 2.39 today. Patient presented to the hospital with generalized weakness and shaking. Patient states he had a fever off 101F at home. He was also having shaking episodes. Patient states he feels he has sinus congestion. Additionally also complains of gaining about 10 pounds over the last 2-3 weeks. He does take Lasix 40 mg twice daily at home. Chest x-ray this admission was suggestive of mild CHF and small pleural effusions. He denies regular use of nonsteroidals. No hematuria or dysuria. He has been voiding. Patient does have history of insulin-dependent diabetes mellitus. Patient's blood sugar has been quite elevated and was greater than 600 this morning. Hemodynamically stable. No evidence of hypotension. Vital signs are stable. General: The patient appeared well nourished and normally developed. HEENT: Head exam is unremarkable. Neck is without jugular venous distension. LUNGS: Lungs are clear to auscultation and percussion. Breath sounds decreased. HEART: Rate and Rhythm are regular. First and second heart sounds normal. No murmurs, rubs or gallops. ABDOMEN: Abdominal exam reveals normal bowel sounds. Non-tender and non- distended. EXTREMITITES: Trace edema. Past Medical History Past Medical History: Atrial Fibrillation, Coronary Artery Disease (CAD), Chest Pain / Angina, Heart Failure, COPD, Diabetes Mellitus, GERD/Reflux, Hyperlipidemia, Hypertension, Liver Disease, Myocardial Infarction ([place]), Prostate Disorder, Renal Disease, Skin Disorder Additional Past Medical History / Comment(s): Neuropathy bilateral feet, stage III chronic kidney disease, chronic CHF, liver cirrhosis, BPH, DJD, herniated discs low back, chronic low back pain, varicose veins bilaterally, anemia, past asbestos exposure, celiac disease, dermatitis herpetiformis. Last Myocardial Infarction Date:: 06/2018 History of Any Multi-Drug Resistant Organisms: None Reported Past Surgical History: Cholecystectomy, Heart Catheterization With Stent, Pacemaker, Tonsillectomy Additional Past Surgical History / Comment(s): PCI with STENTS x 3, bilateral cataracts removed with lens implants, colonoscopy. Past Anesthesia/Blood Transfusion Reactions: No Reported Reaction Date of Last Stent Placement:: 2017 Type of Cardiac Device: Permanent Pacemaker Device Placement Date:: 02/02/19 Past Psychological History: No Psychological Hx Reported Additional Psychological History / Comment(s): lives at home with his , worked for [employer], no service. pt is independant,no cane or walker and no outside services. Smoking Status: Former smoker Past Alcohol Use History: None Reported Additional Past Alcohol Use History / Comment(s): Started smoking in 1967, a half pack a day. Quit smoking 3 weeks ago. Past Drug Use History: None Reported - Past Family History Mother Family Medical History: Diabetes Mellitus Father Family Medical History: Myocardial Infarction ([place]) Additional Family Medical History / Comment(s): Father had a [place] in his 70s. Brother(s) Family Medical History: Myocardial Infarction ([place]) Additional Family Medical History / Comment(s): Brother had a [place] in his 50s. Medications and Allergies Home Medications Medication Instructions Recorded Confirmed Type Insulin Detemir (Levemir) [Levemir] 34 unit SQ HS 08/18/14 06/24/19 History Fluticasone Nasal [place] [Flonase 1 spray EA NOSTRIL BID 05/12/16 06/24/19 History Nasal [place]] Pravastatin Sodium [Pravachol] 40 mg PO HS 12/06/17 06/24/19 History hydrALAZINE HCL [Apresoline] 100 mg PO TID #90 tab 06/07/18 06/24/19 Rx Nitroglycerin Sl Tabs [Nitrostat] 0.4 mg SUBLINGUAL Q5M PRN #25 tab 06/28/18 06/24/19 Rx Cholecalciferol [Vitamin D3 (25 3,000 unit PO PC-BRKFST 08/26/18 06/24/19 History Mcg = 1000 Iu)] Isosorbide Mononitrate ER [Imdur] 30 mg PO DAILY 01/16/19 06/24/19 History Pantoprazole [Protonix] 40 mg PO DAILY 01/16/19 06/24/19 History INSULIN ASPART (NovoLOG) [NovoLOG See Protocol SQ TID-W/MEALS 02/12/19 06/24/19 History (formulary)] Montelukast [Singulair] 10 mg PO HS 02/12/19 06/24/19 History Clopidogrel [Plavix] 75 mg PO HS 02/15/19 06/24/19 History Loratadine [Claritin] 10 mg PO DAILY 03/28/19 06/24/19 History Magnesium. 300 mg PO DAILY 03/28/19 06/24/19 History Metoprolol Tartrate [Lopressor] 100 mg PO BID 03/28/19 06/24/19 History Apixaban [Eliquis] 5 mg PO BID #60 tab 04/03/19 06/24/19 Rx Flecainide [Tambocor] 50 mg PO Q12HR@0700,1900 #60 tab 04/10/19 06/24/19 Rx Furosemide [Lasix] 40 mg PO BID@0900,1600 #60 tab 04/10/19 06/24/19 Rx Ipratropium-Albuterol Nebulize 3 ml INHALATION RT-QID PRN 06/12/19 06/24/19 History [Duoneb 0.5 mg-3 mg/3 ml Soln] Allopurinol [Zyloprim] 100 mg PO DAILY 06/24/19 06/24/19 History Diltiazem Oral [Cardizem*] 90 mg PO BID 06/24/19 06/24/19 History Vitamin B Complex 1 cap PO DAILY 06/24/19 06/24/19 History Allergies Allergy/AdvReac Type Severity Reaction Status Date / Time amoxicillin Allergy Anaphylaxis Verified 06/24/19 19:25 cephalexin monohydrate Allergy Rash/Hives Verified 06/24/19 19:25 [From Keflex] clindamycin Allergy Rash/Hives Verified 06/24/19 19:25 Penicillins Allergy Rash/Hives Verified 06/24/19 19:25 Sulfa (Sulfonamide Allergy Anaphylaxis Verified 06/24/19 19:25 Antibiotics) sulfamethoxazole Allergy Anaphylaxis Verified 06/24/19 19:25 [From Bactrim] trimethoprim [From Bactrim] Allergy Anaphylaxis Verified 06/24/19 19:25 amlodipine AdvReac Swelling Verified 06/24/19 19:25 carvedilol AdvReac "MAKES ME Verified 06/24/19 19:25 JERILYN" Physical Exam Vitals: Vital Signs Temp Pulse Pulse Resp BP BP Pulse Ox 06/25/19 08:00 97.4 F L 80 16 143/78 95 06/25/19 07:50 76 06/25/19 07:45 78 06/25/19 04:15 75 16 153/84 98 06/25/19 02:15 97.9 F 75 16 142/75 95 06/24/19 23:53 97.8 F 75 18 126/75 98 06/24/19 22:23 72 22 115/63 96 06/24/19 21:00 100.0 F H 76 22 117/66 96 06/24/19 20:00 77 18 139/76 99 06/24/19 19:30 79 22 121/71 94 L 06/24/19 19:12 76 06/24/19 18:55 76 06/24/19 18:39 101.3 F H 76 22 150/73 85 L Intake and Output 06/24/19 06/25/19 06/25/19 22:59 06:59 14:59 Intake Total 375 Output Total 300 1600 200 Balance -300 -1600 175 Intake: Oral 375 Output: Urine 300 1600 200 Other: Voiding Method Toilet Weight 88.904 kg Results - Lab Results Most recent lab results Calcium 9.1 mg/dL (8.4-10.2) 06/24/19 18:48 Magnesium 2.3 mg/dL (1.6-2.3) 06/24/19 18:48 06/24/19 18:48 06/24/19 18:48 Assessment and Plan Plan: Assessment: 1. Acute kidney injury mostly prerenal secondary to cardiorenal syndrome. Creatinine 2.39 today. 2. Chronic kidney disease stage III secondary to diabetic kidney disease with baseline creatinine near 2. Serologies have been negative outpatient. 3. Dyspnea secondary to volume overload. 4. Diastolic CHF. 5. Atrial fibrillation status post ablation earlier this month. 6. Insulin-dependent diabetes mellitus. 7. Hypertension with chronic kidney disease. Controlled. 8. Anemia of chronic kidney disease. Iron deficiency noted. 9. Fever. ? Bronchitis versus pneumonia. No evidence of UTI. Plan: Resume Lasix 40 mg orally twice daily. Ferrlecit 125 mg daily 3 doses. Follow-up cultures. Avoid nephrotoxins. Repeat electrolytes in the morning. Will benefit from TU inhibition once GFR returns back to baseline. Thank you for the consultation. I will continue to follow the patient with you during his hospital stay.
[2019-06-25] MEDS: SODIUM FERRIC GLUCONAT-SUCROSE 125 MG in SODIUM CHLORIDE 0.9% 100 ML IVPB SCH (10:51)
--- NOTE | 2019-06-25 10:52 | P.CRDCN ---
History of Present Illness Consult date: 06/25/19 History of present illness: This is a 64-year-old gentleman with history of chronic kidney disease and also sick sinus syndrome status post permanent pacemaker implantation. Patient also has history of atrial fibrillation and has undergone ablation recently by Dr. Fitch. Patient now came to the hospital with complaints of increasing chest heaviness and shortness of breath which has progressed over the last few days. He was seen in the primary care physician's office for the same symptoms. While in the office. Patient felt chills and subsequent he noticed his temperature going up to 101. Patient did take inhalers and also steroids at home on his own. On admission he was noted to have white count elevation. His proBNP is elevated. His troponin values are mildly high but the pattern is not consistent with acute coronary syndrome. His blood sugar is also high. He did diurese very well after giving IV Lasix in the emergency room. He is currently on by mouth Lasix. He is also being followed by [facility]. He she is found to be hiding deficient. Patient is going to get iron infusions. We'll continue current medical therapy. I'll get an echocardiogram to assess LV function and rule out any pericardial effusion Review of Systems As per the chart Past Medical History Past Medical History: Atrial Fibrillation, Coronary Artery Disease (CAD), Chest Pain / Angina, Heart Failure, COPD, Diabetes Mellitus, GERD/Reflux, Hyperlipidemia, Hypertension, Liver Disease, Myocardial Infarction ([place]), Prostate Disorder, Renal Disease, Skin Disorder Additional Past Medical History / Comment(s): Neuropathy bilateral feet, stage III chronic kidney disease, chronic CHF, liver cirrhosis, BPH, DJD, herniated discs low back, chronic low back pain, varicose veins bilaterally, anemia, past asbestos exposure, celiac disease, dermatitis herpetiformis. Last Myocardial Infarction Date:: 06/2018 History of Any Multi-Drug Resistant Organisms: None Reported Past Surgical History: Cholecystectomy, Heart Catheterization With Stent, Pacemaker, Tonsillectomy Additional Past Surgical History / Comment(s): PCI with STENTS x 3, bilateral cataracts removed with lens implants, colonoscopy. Past Anesthesia/Blood Transfusion Reactions: No Reported Reaction Date of Last Stent Placement:: 2017 Type of Cardiac Device: Permanent Pacemaker Device Placement Date:: 02/02/19 Past Psychological History: No Psychological Hx Reported Additional Psychological History / Comment(s): lives at home with his , worked for [employer], no service. pt is independant,no cane or walker and no outside services. Smoking Status: Former smoker Past Alcohol Use History: None Reported Additional Past Alcohol Use History / Comment(s): Started smoking in 1967, a half pack a day. Quit smoking 3 weeks ago. Past Drug Use History: None Reported - Past Family History Mother Family Medical History: Diabetes Mellitus Father Family Medical History: Myocardial Infarction ([place]) Additional Family Medical History / Comment(s): Father had a CT in his 70s. Brother(s) Family Medical History: Myocardial Infarction ([place]) Additional Family Medical History / Comment(s): Brother had a CT in his 50s. Medications and Allergies Home Medications Medication Instructions Recorded Confirmed Type Insulin Detemir (Levemir) [Levemir] 34 unit SQ HS 08/18/14 06/24/19 History Fluticasone Nasal [place] [Flonase 1 spray EA NOSTRIL BID 05/12/16 06/24/19 History Nasal [place]] Pravastatin Sodium [Pravachol] 40 mg PO HS 12/06/17 06/24/19 History hydrALAZINE HCL [Apresoline] 100 mg PO TID #90 tab 06/07/18 06/24/19 Rx Nitroglycerin Sl Tabs [Nitrostat] 0.4 mg SUBLINGUAL Q5M PRN #25 tab 06/28/18 06/24/19 Rx Cholecalciferol [Vitamin D3 (25 3,000 unit PO PC-BRKFST 08/26/18 06/24/19 History Mcg = 1000 Iu)] Isosorbide Mononitrate ER [Imdur] 30 mg PO DAILY 01/16/19 06/24/19 History Pantoprazole [Protonix] 40 mg PO DAILY 01/16/19 06/24/19 History INSULIN ASPART (NovoLOG) [NovoLOG See Protocol SQ TID-W/MEALS 02/12/19 06/24/19 History (formulary)] Montelukast [Singulair] 10 mg PO HS 02/12/19 06/24/19 History Clopidogrel [Plavix] 75 mg PO HS 02/15/19 06/24/19 History Loratadine [Claritin] 10 mg PO DAILY 03/28/19 06/24/19 History Magnesium. 300 mg PO DAILY 03/28/19 06/24/19 History Metoprolol Tartrate [Lopressor] 100 mg PO BID 03/28/19 06/24/19 History Apixaban [Eliquis] 5 mg PO BID #60 tab 04/03/19 06/24/19 Rx Flecainide [Tambocor] 50 mg PO Q12HR@0700,1900 #60 tab 04/10/19 06/24/19 Rx Furosemide [Lasix] 40 mg PO BID@0900,1600 #60 tab 04/10/19 06/24/19 Rx Ipratropium-Albuterol Nebulize 3 ml INHALATION RT-QID PRN 06/12/19 06/24/19 History [Duoneb 0.5 mg-3 mg/3 ml Soln] Allopurinol [Zyloprim] 100 mg PO DAILY 06/24/19 06/24/19 History Diltiazem Oral [Cardizem*] 90 mg PO BID 06/24/19 06/24/19 History Vitamin B Complex 1 cap PO DAILY 06/24/19 06/24/19 History Allergies Allergy/AdvReac Type Severity Reaction Status Date / Time amoxicillin Allergy Anaphylaxis Verified 06/24/19 19:25 cephalexin monohydrate Allergy Rash/Hives Verified 06/24/19 19:25 [From Keflex] clindamycin Allergy Rash/Hives Verified 06/24/19 19:25 Penicillins Allergy Rash/Hives Verified 06/24/19 19:25 Sulfa (Sulfonamide Allergy Anaphylaxis Verified 06/24/19 19:25 Antibiotics) sulfamethoxazole Allergy Anaphylaxis Verified 06/24/19 19:25 [From Bactrim] trimethoprim [From Bactrim] Allergy Anaphylaxis Verified 06/24/19 19:25 amlodipine AdvReac Swelling Verified 06/24/19 19:25 carvedilol AdvReac "MAKES ME Verified 06/24/19 19:25 JERILYN" Physical Exam Vitals: Vital Signs Temp Pulse Pulse Resp BP BP Pulse Ox 06/25/19 08:00 97.4 F L 80 16 143/78 95 06/25/19 07:50 76 06/25/19 07:45 78 06/25/19 04:15 75 16 153/84 98 06/25/19 02:15 97.9 F 75 16 142/75 95 06/24/19 23:53 97.8 F 75 18 126/75 98 06/24/19 22:23 72 22 115/63 96 06/24/19 21:00 100.0 F H 76 22 117/66 96 06/24/19 20:00 77 18 139/76 99 06/24/19 19:30 79 22 121/71 94 L 06/24/19 19:12 76 06/24/19 18:55 76 06/24/19 18:39 101.3 F H 76 22 150/73 85 L Intake and Output 06/24/19 06/25/19 06/25/19 22:59 06:59 14:59 Intake Total 375 Output Total 300 1600 200 Balance -300 -1600 175 Intake: Oral 375 Output: Urine 300 1600 200 Other: Voiding Method Toilet Weight 88.904 kg GENERAL EXAM: Patient is alert and oriented and doesn't appear to be in any acute distress HEENT: Normocephalic. Normal reaction of pupils, equal size, normal range of extraocular motion. No erythema or exudates in the throat. NECK: No masses, no nuchal rigidity. CHEST: No chest wall deformity. LUNGS: Equal air entry with no crackles or wheeze. HEART: S1 and S2 normal with no audible mumurs or gallops. Regular rhythm, femorals equal on both sides.. ABDOMEN: No hepatosplenomegaly, normal bowel sounds, no guarding or rigidity. SKIN: No rashes CENTRAL NERVOUS SYSTEM: No focal deficits. EXTREMITIES: No cyanosis, clubbing or edema. Results 06/24/19 18:48 06/24/19 18:48 Cardiac Enzymes 06/24/19 06/24/19 06/25/19 Range/Units 18:48 18:48 00:30 AST 52 (17-59) U/L Troponin I 0.069 H* 0.075 H* (0.000-0.034) ng/mL 06/25/19 Range/Units 06:09 AST (17-59) U/L Troponin I 0.068 H* (0.000-0.034) ng/mL Coagulation 06/24/19 Range/Units 18:48 PT 10.2 (9.0-12.0) sec APTT 27.9 (22.0-30.0) sec Lipids 06/25/19 Range/Units 06:09 Triglycerides 66 (<150) mg/dL Cholesterol 126 (<200) mg/dL HDL Cholesterol 41 (40-60) mg/dL CBC 06/24/19 Range/Units 18:48 WBC 17.1 H (3.8-10.6) k/uL RBC 4.02 L (4.30-5.90) m/uL Hgb 9.1 L (13.0-17.5) gm/dL Hct 31.1 L (39.0-53.0) % Plt Count 257 (150-450) k/uL Comprehensive Metabolic Panel 06/24/19 Range/Units 18:48 Sodium 134 L (137-145) mmol/L Potassium 4.5 (3.5-5.1) mmol/L Chloride 94 L (98-107) mmol/L Carbon Dioxide 30 (22-30) mmol/L BUN 61 H (9-20) mg/dL Creatinine 2.39 H (0.66-1.25) mg/dL Glucose 145 H (74-99) mg/dL Calcium 9.1 (8.4-10.2) mg/dL AST 52 (17-59) U/L ALT 68 (21-72) U/L Alkaline Phosphatase 140 H (38-126) U/L Total Protein 6.8 (6.3-8.2) g/dL Albumin 3.9 (3.5-5.0) g/dL Current Medications Generic Name Dose Route Start Last Admin Trade Name Freq PRN Reason Stop Dose Admin Albuterol/Ipratropium 3 ml 06/25/19 08:00 06/25/19 07:43 Duoneb 0.5 Mg-3 Mg/3 Ml Soln INHALATION 3 ml RT-QID [facility] Administration Allopurinol 100 mg 06/25/19 10:15 Zyloprim PO DAILY [facility] Apixaban 5 mg 06/25/19 10:15 Eliquis PO BID [facility] Aspirin 325 mg 06/25/19 09:00 06/25/19 08:39 Aspirin PO 325 mg DAILY [facility] Administration Clopidogrel Bisulfate 75 mg 06/25/19 21:00 Plavix PO HS [facility] Diltiazem HCl 90 mg 06/25/19 10:15 Cardizem Oral PO BID [facility] Flecainide Acetate 50 mg 06/25/19 10:15 Tambocor PO Q12HR@0700,1900 [facility] Fluticasone Propionate 1 spray 06/25/19 10:15 Flonase Nasal [place] EA NOSTRIL BID [facility] Furosemide 40 mg 06/25/19 16:00 Lasix PO BID@0900,1600 [facility] Hydralazine HCl 100 mg 06/25/19 10:15 Apresoline PO TID [facility] Ferric Sodium Gluconate 125 mg 110 mls @ 100 mls/hr 06/25/19 10:00 / Sodium Chloride IVPB 06/28/19 10:01 DAILY [facility] Insulin Aspart 0 unit 06/25/19 12:30 Novolog SQ ACHS [facility] Protocol Insulin Detemir 34 unit 06/25/19 21:00 Levemir SQ HS [facility] Isosorbide Mononitrate 30 mg 06/25/19 10:15 Imdur PO DAILY [facility] Metoprolol Tartrate 100 mg 06/25/19 10:15 Lopressor PO BID [facility] Montelukast Sodium 10 mg 06/25/19 21:00 Singulair PO HS [facility] Nitroglycerin 0.4 mg 06/25/19 09:52 Nitrostat SUBLINGUAL Q5M PRN Chest Pain Pantoprazole Sodium 40 mg 06/25/19 10:15 Protonix PO DAILY [facility] Pravastatin Sodium 40 mg 06/25/19 21:00 Pravachol PO HS [facility] Prednisone 40 mg 06/26/19 09:00 PO DAILY [facility] Intake and Output 06/24/19 06/25/19 06/25/19 22:59 06:59 14:59 Intake Total 375 Output Total 300 1600 200 Balance -300 -1600 175 Intake: Oral 375 Output: Urine 300 1600 200 Other: Voiding Method Toilet Weight 88.904 kg 06/24/19 18:48 06/24/19 18:48 EKG Interpretations (text) Sinus rhythm with first-degree heart block Assessment and Plan (1) Acute diastolic CHF (congestive heart failure) Current Visit: Yes Status: Acute Code(s): I50.31 - ACUTE DIASTOLIC (CONGESTIVE) HEART FAILURE SNOMED Code(s): 898085830 (2) CHF exacerbation Current Visit: Yes Status: Acute Code(s): I50.9 - HEART FAILURE, UNSPECIFIED SNOMED Code(s): 634272205 (3) CKD (chronic kidney disease) Current Visit: Yes Status: Acute Code(s): N18.9 - CHRONIC KIDNEY DISEASE, UNSPECIFIED SNOMED Code(s): 648049064 (4) Elevated troponin Current Visit: Yes Status: Acute Code(s): R74.8 - ABNORMAL LEVELS OF OTHER SERUM ENZYMES SNOMED Code(s): 859075499 (5) Atrial fibrillation Current Visit: No Status: Acute Code(s): I48.91 - UNSPECIFIED ATRIAL FIBRILLATION SNOMED Code(s): 08730150 Plan: Continue current medical therapy. Echocardiogram. Follow CBC and also BMP. Further recommendations depend upon clinical course
[2019-06-25] MEDS: ISOSORBIDE MONONITRATE ER 30 MG TAB.ER.24H PO SCH (10:54)
[2019-06-25] MEDS: FLECAINIDE 50 MG TAB PO SCH ×2 (10:54→18:15)
[2019-06-25] MEDS: DILTIAZEM ORAL 30 MG TAB PO SCH ×2 (10:55→20:12)
[2019-06-25] MEDS: METOPROLOL TARTRATE 50 MG TAB PO SCH ×2 (10:55→20:12)
[2019-06-25] MEDS: ALLOPURINOL 100 MG TAB PO SCH (10:55)
[2019-06-25] MEDS: APIXABAN 5 MG TAB PO SCH ×2 (10:55→20:13)
[2019-06-25] MEDS: FLUTICASONE 50MCG/SPRAY NASAL 16GM EA NOSTRIL SCH ×2 (10:56→20:12)
[2019-06-25] MEDS: PANTOPRAZOLE 40 MG TABLET PO SCH (10:58)
[2019-06-25] MEDS: hydrALAZINE HCL 50 MG TAB PO SCH ×3 (10:58→20:29)
[2019-06-25 12:02] LABS: Glucose,Whole Blood 583 mg/dL (75-99)
[2019-06-25] MEDS: INSULIN ASPART (NovoLOG) 100 UNIT/ML VIAL SQ SCH ×3 (12:24→20:21)
--- NOTE | 2019-06-25 14:27 | P.HPIM ---
History of Present Illness 64-year-old with history of sick sinus syndrome and recent dilation chronic diastolic dysfunction came in with compensative chest heaviness and shortness of breath chest x-ray showed some chronic interstitial changes although patient had fever yesterday denied any significant cough with sputum production patient. Patient does have history of COPD is not wheezing significantly at this time patient has highly elevated blood sugars because of which I'll discontinue all his IV steroids. Patient was on IV Lasix which she will be switched to oral Lasix patient is fairly euvolemic at this time. No wheezing or crackles were appreciated on exam. Patient does have chronic kidney disease stage IV with baseline creatinine around 2. This is secondary to diabetic nephropathy any. Patient doesn't have any significant elevated JVD at this time. Atypical pneumonia or severe tachycardia bronchitis cannot be ruled out because of which are good and continue with levofloxacin although not an ideal choice patient has multiple ALLERGIES. Echocardiogram is being obtained to assess his LV function. Patient has mild elevation of troponin and patient had some chest heaviness although his troponin elevation is probably secondary to chronic kidney disease and heart failure Review of Systems REVIEW OF SYSTEMS: CONSTITUTIONAL: No fever, no malaise, no fatigue. HEENT: No recent visual problems or hearing problems. Denied any sore throat. CARDIOVASCULAR: , no palpitations, no syncope. PULMONARY: no hemoptysis. GASTROINTESTINAL: No diarrhea, no nausea, no vomiting, no abdominal pain. NEUROLOGICAL: No headaches, no weakness, no numbness. HEMATOLOGICAL: Denies any bleeding or petechiae. GENITOURINARY: Denies any burning micturition, frequency, or urgency. MUSCULOSKELETAL/RHEUMATOLOGICAL: Denies any joint pain, swelling, or any muscle pain. ENDOCRINE: Denies any polyuria or polydipsia. The rest of the 14-point review of systems is negative. Past Medical History Past Medical History: Atrial Fibrillation, Coronary Artery Disease (CAD), Chest Pain / Angina, Heart Failure, COPD, Diabetes Mellitus, GERD/Reflux, Hyperlipidemia, Hypertension, Liver Disease, Myocardial Infarction (RI), Prostate Disorder, Renal Disease, Skin Disorder Additional Past Medical History / Comment(s): Neuropathy bilateral feet, stage III chronic kidney disease, chronic CHF, liver cirrhosis, BPH, DJD, herniated discs low back, chronic low back pain, varicose veins bilaterally, anemia, past asbestos exposure, celiac disease, dermatitis herpetiformis. Last Myocardial Infarction Date:: 06/2018 History of Any Multi-Drug Resistant Organisms: None Reported Past Surgical History: Cholecystectomy, Heart Catheterization With Stent, Pacemaker, Tonsillectomy Additional Past Surgical History / Comment(s): PCI with STENTS x 3, bilateral cataracts removed with lens implants, colonoscopy. Past Anesthesia/Blood Transfusion Reactions: No Reported Reaction Date of Last Stent Placement:: 2017 Type of Cardiac Device: Permanent Pacemaker Device Placement Date:: 02/02/19 Past Psychological History: No Psychological Hx Reported Additional Psychological History / Comment(s): lives at home with his , worked for [employer], no service. pt is independant,no cane or walker and no outside services. Smoking Status: Former smoker Past Alcohol Use History: None Reported Additional Past Alcohol Use History / Comment(s): Started smoking in 1967, a half pack a day. Quit smoking 3 weeks ago. Past Drug Use History: None Reported - Past Family History Mother Family Medical History: Diabetes Mellitus Father Family Medical History: Myocardial Infarction (RI) Additional Family Medical History / Comment(s): Father had a RI in his 70s. Brother(s) Family Medical History: Myocardial Infarction (RI) Additional Family Medical History / Comment(s): Brother had a RI in his 50s. Medications and Allergies Home Medications Medication Instructions Recorded Confirmed Type Insulin Detemir (Levemir) [Levemir] 34 unit SQ HS 08/18/14 06/24/19 History Fluticasone Nasal [place] [Flonase 1 spray EA NOSTRIL BID 05/12/16 06/24/19 History Nasal [place]] Pravastatin Sodium [Pravachol] 40 mg PO HS 12/06/17 06/24/19 History hydrALAZINE HCL [Apresoline] 100 mg PO TID #90 tab 06/07/18 06/24/19 Rx Nitroglycerin Sl Tabs [Nitrostat] 0.4 mg SUBLINGUAL Q5M PRN #25 tab 06/28/18 Rx Cholecalciferol [Vitamin D3 (25 3,000 unit PO PC-BRKFST 08/26/18 06/24/19 History Mcg = 1000 Iu)] Isosorbide Mononitrate ER [Imdur] 30 mg PO DAILY 01/16/19 06/24/19 History Pantoprazole [Protonix] 40 mg PO DAILY 01/16/19 06/24/19 History INSULIN ASPART (NovoLOG) [NovoLOG See Protocol SQ TID-W/MEALS 02/12/19 06/24/19 History (formulary)] Montelukast [Singulair] 10 mg PO HS 02/12/19 06/24/19 History Clopidogrel [Plavix] 75 mg PO HS 02/15/19 06/24/19 History Loratadine [Claritin] 10 mg PO DAILY 03/28/19 06/24/19 History Magnesium. 300 mg PO DAILY 03/28/19 06/24/19 History Metoprolol Tartrate [Lopressor] 100 mg PO BID 03/28/19 06/24/19 History Apixaban [Eliquis] 5 mg PO BID #60 tab 04/03/19 06/24/19 Rx Flecainide [Tambocor] 50 mg PO Q12HR@0700,1900 #60 tab 04/10/19 06/24/19 Rx Furosemide [Lasix] 40 mg PO BID@0900,1600 #60 tab 04/10/19 06/24/19 Rx Ipratropium-Albuterol Nebulize 3 ml INHALATION RT-QID PRN 06/12/19 06/24/19 History [Duoneb 0.5 mg-3 mg/3 ml Soln] Allopurinol [Zyloprim] 100 mg PO DAILY 06/24/19 06/24/19 History Diltiazem Oral [Cardizem*] 90 mg PO BID 06/24/19 06/24/19 History Vitamin B Complex 1 cap PO DAILY 06/24/19 06/24/19 History Allergies Allergy/AdvReac Type Severity Reaction Status Date / Time amoxicillin Allergy Anaphylaxis Verified 06/24/19 19:25 cephalexin monohydrate Allergy Rash/Hives Verified 06/24/19 19:25 [From Keflex] clindamycin Allergy Rash/Hives Verified 06/24/19 19:25 Penicillins Allergy Rash/Hives Verified 06/24/19 19:25 Sulfa (Sulfonamide Allergy Anaphylaxis Verified 06/24/19 19:25 Antibiotics) sulfamethoxazole Allergy Anaphylaxis Verified 06/24/19 19:25 [From Bactrim] trimethoprim [From Bactrim] Allergy Anaphylaxis Verified 06/24/19 19:25 amlodipine AdvReac Swelling Verified 06/24/19 19:25 carvedilol AdvReac "MAKES ME Verified 06/24/19 19:25 JERILYN" Physical Exam Vitals: Vital Signs Temp Pulse Pulse Resp BP BP Pulse Ox 06/25/19 11:24 77 06/25/19 11:16 80 06/25/19 08:00 97.4 F L 80 16 143/78 95 06/25/19 07:50 76 06/25/19 07:45 78 06/25/19 04:15 75 16 153/84 98 06/25/19 02:15 97.9 F 75 16 142/75 95 06/24/19 23:53 97.8 F 75 18 126/75 98 06/24/19 22:23 72 22 115/63 96 06/24/19 21:00 100.0 F H 76 22 117/66 96 06/24/19 20:00 77 18 139/76 99 06/24/19 19:30 79 22 121/71 94 L 06/24/19 19:12 76 06/24/19 18:55 76 06/24/19 18:39 101.3 F H 76 22 150/73 85 L Intake and Output 06/24/19 06/25/19 06/25/19 22:59 06:59 14:59 Intake Total 375 Output Total 300 1600 200 Balance -300 -1600 175 Intake: Oral 375 Output: Urine 300 1600 200 Other: Voiding Method Toilet Weight 88.904 kg PHYSICAL EXAMINATION: GENERAL: The patient is alert and oriented x3, not in any acute distress. Well developed, well nourished. HEENT: Pupils are round and equally reacting to light. EOMI. No scleral icterus. No conjunctival pallor. Normocephalic, atraumatic. No pharyngeal erythema. No thyromegaly. CARDIOVASCULAR: S1 and S2 present. No murmurs, rubs, or gallops. PULMONARY: Chest is clear to auscultation, no wheezing or crackles. ABDOMEN: Soft, nontender, nondistended, normoactive bowel sounds. No palpable organomegaly. MUSCULOSKELETAL: No joint swelling or deformity. EXTREMITIES: No cyanosis, clubbing, or pedal edema. NEUROLOGICAL: Gross neurological examination did not reveal any focal deficits. SKIN: No rashes. Results CBC & Chem 7: 06/24/19 18:48 06/24/19 18:48 Labs: Abnormal Lab Results - Last 24 Hours (Table) 06/24/19 06/24/19 06/24/19 Range/Units 18:48 18:48 18:48 WBC 17.1 H (3.8-10.6) k/uL RBC 4.02 L (4.30-5.90) m/uL Hgb 9.1 L (13.0-17.5) gm/dL Hct 31.1 L (39.0-53.0) % MCV 77.4 L (80.0-100.0) fL MCH 22.7 L (25.0-35.0) pg MCHC 29.4 L (31.0-37.0) g/dL RDW 16.7 H (11.5-15.5) % Neutrophils # 15.8 H (1.3-7.7) k/uL Lymphocytes # 0.4 L (1.0-4.8) k/uL Sodium 134 L (137-145) mmol/L Chloride 94 L (98-107) mmol/L BUN 61 H (9-20) mg/dL Creatinine 2.39 H (0.66-1.25) mg/dL Glucose 145 H (74-99) mg/dL POC Glucose (mg/dL) (75-99) mg/dL Alkaline Phosphatase 140 H (38-126) U/L Troponin I 0.069 H* (0.000-0.034) ng/mL Urine Protein (Negative) 06/24/19 06/25/19 06/25/19 Range/Units 18:48 00:30 06:09 WBC (3.8-10.6) k/uL RBC (4.30-5.90) m/uL Hgb (13.0-17.5) gm/dL Hct (39.0-53.0) % MCV (80.0-100.0) fL MCH (25.0-35.0) pg MCHC (31.0-37.0) g/dL RDW (11.5-15.5) % Neutrophils # (1.3-7.7) k/uL Lymphocytes # (1.0-4.8) k/uL Sodium (137-145) mmol/L Chloride (98-107) mmol/L BUN (9-20) mg/dL Creatinine (0.66-1.25) mg/dL Glucose (74-99) mg/dL POC Glucose (mg/dL) (75-99) mg/dL Alkaline Phosphatase (38-126) U/L Troponin I 0.075 H* 0.068 H* (0.000-0.034) ng/mL Urine Protein 1+ H (Negative) 06/25/19 06/25/19 06/25/19 Range/Units 06:11 06:15 09:38 WBC (3.8-10.6) k/uL RBC (4.30-5.90) m/uL Hgb (13.0-17.5) gm/dL Hct (39.0-53.0) % MCV (80.0-100.0) fL MCH (25.0-35.0) pg MCHC (31.0-37.0) g/dL RDW (11.5-15.5) % Neutrophils # (1.3-7.7) k/uL Lymphocytes # (1.0-4.8) k/uL Sodium (137-145) mmol/L Chloride (98-107) mmol/L BUN (9-20) mg/dL Creatinine (0.66-1.25) mg/dL Glucose (74-99) mg/dL POC Glucose (mg/dL) 541 H 568 H >600 H (75-99) mg/dL Alkaline Phosphatase (38-126) U/L Troponin I (0.000-0.034) ng/mL Urine Protein (Negative) 06/25/19 06/25/19 Range/Units 09:40 12:00 WBC (3.8-10.6) k/uL RBC (4.30-5.90) m/uL Hgb (13.0-17.5) gm/dL Hct (39.0-53.0) % MCV (80.0-100.0) fL MCH (25.0-35.0) pg MCHC (31.0-37.0) g/dL RDW (11.5-15.5) % Neutrophils # (1.3-7.7) k/uL Lymphocytes # (1.0-4.8) k/uL Sodium (137-145) mmol/L Chloride (98-107) mmol/L BUN (9-20) mg/dL Creatinine (0.66-1.25) mg/dL Glucose (74-99) mg/dL POC Glucose (mg/dL) >600 H 583 H (75-99) mg/dL Alkaline Phosphatase (38-126) U/L Troponin I (0.000-0.034) ng/mL Urine Protein (Negative) Thrombosis Risk Factor Assmnt - Choose All That Apply Any of the Below Risk Factors Present?: Yes Each Factor Represents 1 point: Abnormal pulmonary function (COPD), Obesity (BMI >25), Swollen legs (current) Other Risk Factors: Yes Each Risk Factor Represents 2 Points: Age 61-74 years Thrombosis Risk Factor Assessment Total Risk Factor Score: 5 Thrombosis Risk Factor Assessment Level: High Risk Assessment and Plan Plan: Shortness of breath: Most probably secondary to pulmonary edema which is again secondary to chronic diastolic dysfunction with acute exacerbation. Echocardiogram and be obtained patient received IV Lasix with improvement in symptoms patient was switched to oral Lasix. -Possibly of COPD with mild acute exacerbation counseling highly elevated blood sugars patient was started on inhaled steroids IV steroids and oral steroids will be discontinued. She will be continued with inhalational treatments area -Fever with leukocytosis can be related to either atypical pneumonia or severe tracheal bronchitis continue with levofloxacin. -Chronic kidney disease stage IV secondary to diabetic nephropathy patient's ferritin levels are extremely low patient is receiving IV iron transfusion -Possible chronic iron deficiency anemia -Mildly elevated troponin secondary to chronic kidney disease or CHF - atrial fibrillation or sick sinus syndrome continue with present medications patient is rate controlled at this time. Patient is status post ablation continue with anticoagulation -Type 2 diabetes mellitus with uncontrolled an elevated blood sugars secondary to systemic steroids -Hyperlipidemia -Coronary artery disease -Benign prostatic hypertrophy -Gastro-esophageal reflux disease
[2019-06-25] MEDS: FUROSEMIDE 40 MG TAB PO SCH (15:48)
--- NOTE | 2019-06-25 16:09 | P.CNPUL ---
History of Present Illness Consult date: 06/25/19 Requesting physician: Hiral Link Reason for consult: dyspnea Chief complaint: Shortness of breath History of present illness: This is a 64-year-old white male patient with past medical history moderately severe COPD, with a baseline FEV1 of 2.52 L or 67% of predicted, chronic atrial fibrillation status post ablation, diabetes mellitus type 2, cirrhosis of liver, hypertension, chronic kidney disease stage IV, previous episode of non-ST elevated CT, and patient has had previous coronary stenting. Patient presented to the hospital on 06/24/2019 for evaluation of worsening shortness of breath since the weekend. Patient did have a recent ablation procedure for atrial fibrillation 1 week ago. Reports 10 pound weight gain since the weekend, reports mild chest heaviness, improved with breathing treatment and the nitro. Did have a fever on presentation with the temp of 101.3F, pulse ox was 85 on room air, chest x-ray was completed showing mild pulmonary interstitial edema, blunting of the costophrenic angles, and up left axillary pacemaker in place. EKG showed sinus rhythm with occasional PVCs, and incomplete left bundle branch block. White blood cell count was 17.1, hemoglobin is 9.1, sodium is 134, potassium is 4.5, chloride is 94, CO2 is 30, B1 is 61, creatinine is 2.39, troponins were 0.069, 0.075, and 0.068, proBNP was 5210, urinalysis was negative for infection. She was started on empiric antibiotics for a concern of infection. Patient was given IV Lasix, he is on chronic anticoagulation with Eliquis, breathing treatments, he was given a dose of Solu-Medrol, and this afternoon his breathing has significantly improved. He is putting out large amount of urine, so far he is in -1600 mL fluid balance. Currently is afebrile, and platelets of chest pain, no significant cough or congestion, no wheezing, on Levaquin for empiric antibiotic coverage. Review of Systems All systems: negative Constitutional: Denies chills, Denies fever Eyes: denies blurred vision, denies pain Ears, nose, mouth and throat: Denies headache, Denies sore throat Cardiovascular: Reports chest pain, Denies shortness of breath Respiratory: Reports dyspnea, Denies cough Gastrointestinal: Denies abdominal pain, Denies diarrhea, Denies nausea, Denies vomiting Musculoskeletal: Denies myalgias Integumentary: Denies pruritus, Denies rash Neurological: Denies numbness, Denies weakness Psychiatric: Denies anxiety, Denies depression Endocrine: Denies fatigue, Denies weight change Past Medical History Past Medical History: Atrial Fibrillation, Coronary Artery Disease (CAD), Chest Pain / Angina, Heart Failure, COPD, Diabetes Mellitus, GERD/Reflux, Hyperlipidemia, Hypertension, Liver Disease, Myocardial Infarction ([place]), Pros isaac Disorder, Renal Disease, Skin Disorder Additional Past Medical History / Comment(s): Neuropathy bilateral feet, stage III chronic kidney disease, chronic CHF, liver cirrhosis, BPH, DJD, herniated discs low back, chronic low back pain, varicose veins bilaterally, anemia, past asbestos exposure, celiac disease, dermatitis herpetiformis. Last Myocardial Infarction Date:: 06/2018 History of Any Multi-Drug Resistant Organisms: None Reported Past Surgical History: Cholecystectomy, Heart Catheterization With Stent, Pacemaker, Tonsillectomy Additional Past Surgical History / Comment(s): PCI with STENTS x 3, bilateral cataracts removed with lens implants, colonoscopy. Past Anesthesia/Blood Transfusion Reactions: No Reported Reaction Date of Last Stent Placement:: 2017 Type of Cardiac Device: Permanent Pacemaker Device Placement Date:: 02/02/19 Past Psychological History: No Psychological Hx Reported Additional Psychological History / Comment(s): lives at home with his , worked for [employer], no service. pt is independant,no cane or walker and no outside services. Smoking Status: Former smoker Past Alcohol Use History: None Reported Additional Past Alcohol Use History / Comment(s): Started smoking in 1967, a half pack a day. Quit smoking 3 weeks ago. Past Drug Use History: None Reported - Past Family History Mother Family Medical History: Diabetes Mellitus Father Family Medical History: Myocardial Infarction (CT) Additional Family Medical History / Comment(s): Father had a CT in his 70s. Brother(s) Family Medical History: Myocardial Infarction (CT) Additional Family Medical History / Comment(s): Brother had a CT in his 50s. Medications and Allergies Home Medications Medication Instructions Recorded Confirmed Type Insulin Detemir (Levemir) [Levemir] 34 unit SQ HS 08/18/14 06/24/19 History Fluticasone Nasal [place] [Flonase 1 spray EA NOSTRIL BID 05/12/16 06/24/19 History Nasal [place]] Pravastatin Sodium [Pravachol] 40 mg PO HS 12/06/17 06/24/19 History hydrALAZINE HCL [Apresoline] 100 mg PO TID #90 tab 06/07/18 06/24/19 Rx Nitroglycerin Sl Tabs [Nitrostat] 0.4 mg SUBLINGUAL Q5M PRN #25 tab 06/28/18 06/24/19 Rx Cholecalciferol [Vitamin D3 (25 3,000 unit PO PC-BRKFST 08/26/18 06/24/19 History Mcg = 1000 Iu)] Isosorbide Mononitrate ER [Imdur] 30 mg PO DAILY 01/16/19 06/24/19 History Pantoprazole [Protonix] 40 mg PO DAILY 01/16/19 06/24/19 History INSULIN ASPART (NovoLOG) [NovoLOG See Protocol SQ TID-W/MEALS 02/12/19 06/24/19 History (formulary)] Montelukast [Singulair] 10 mg PO HS 02/12/19 06/24/19 History Clopidogrel [Plavix] 75 mg PO HS 02/15/19 06/24/19 History Loratadine [Claritin] 10 mg PO DAILY 03/28/19 06/24/19 History Magnesium. 300 mg PO DAILY 03/28/19 06/24/19 History Metoprolol Tartrate [Lopressor] 100 mg PO BID 03/28/19 06/24/19 History Apixaban [Eliquis] 5 mg PO BID #60 tab 04/03/19 06/24/19 Rx Flecainide [Tambocor] 50 mg PO Q12HR@0700,1900 #60 tab 04/10/19 06/24/19 Rx Furosemide [Lasix] 40 mg PO BID@0900,1600 #60 tab 04/10/19 06/24/19 Rx Ipratropium-Albuterol Nebulize 3 ml INHALATION RT-QID PRN 06/12/19 06/24/19 History [Duoneb 0.5 mg-3 mg/3 ml Soln] Allopurinol [Zyloprim] 100 mg PO DAILY 06/24/19 06/24/19 History Diltiazem Oral [Cardizem*] 90 mg PO BID 06/24/19 06/24/19 History Vitamin B Complex 1 cap PO DAILY 06/24/19 06/24/19 History Allergies Allergy/AdvReac Type Severity Reaction Status Date / Time amoxicillin Allergy Anaphylaxis Verified 06/24/19 19:25 cephalexin monohydrate Allergy Rash/Hives Verified 06/24/19 19:25 [From Keflex] clindamycin Allergy Rash/Hives Verified 06/24/19 19:25 Penicillins Allergy Rash/Hives Verified 06/24/19 19:25 Sulfa (Sulfonamide Allergy Anaphylaxis Verified 06/24/19 19:25 Antibiotics) sulfamethoxazole Allergy Anaphylaxis Verified 06/24/19 19:25 [From Bactrim] trimethoprim [From Bactrim] Allergy Anaphylaxis Verified 06/24/19 19:25 amlodipine AdvReac Swelling Verified 06/24/19 19:25 carvedilol AdvReac "MAKES ME Verified 06/24/19 19:25 LOONEY" Physical Exam Vitals: Vital Signs Temp Pulse Pulse Resp BP BP Pulse Ox 06/25/19 11:24 77 06/25/19 11:16 80 06/25/19 08:00 97.4 F L 80 16 143/78 95 06/25/19 07:50 76 06/25/19 07:45 78 06/25/19 04:15 75 16 153/84 98 06/25/19 02:15 97.9 F 75 16 142/75 95 06/24/19 23:53 97.8 F 75 18 126/75 98 06/24/19 22:23 72 22 115/63 96 06/24/19 21:00 100.0 F H 76 22 117/66 96 06/24/19 20:00 77 18 139/76 99 06/24/19 19:30 79 22 121/71 94 L 06/24/19 19:12 76 06/24/19 18:55 76 06/24/19 18:39 101.3 F H 76 22 150/73 85 L Intake and Output 06/25/19 06/25/19 06/25/19 06:59 14:59 22:59 Intake Total 375 Output Total 1600 200 Balance -1600 175 Intake: Oral 375 Output: Urine 1600 200 Other: Voiding Method Toilet GENERAL EXAM: Alert, pleasant, 64-year-old white male, on room air, sats at 95% comfortable in no apparent distress. HEAD: Normocephalic/atraumatic. EYES: Normal reaction of pupils, equal size. Conjunctiva pink, sclera white. NOSE: Clear with pink turbinates. THROAT: No erythema or exudates. NECK: No masses, no JVD, no thyroid enlargement, no adenopathy. CHEST: No chest wall deformity. Symmetrical expansion. LUNGS: Equal air entry with no crackles, wheeze, rhonchi or dullness. CVS: Regular rate and rhythm, normal S1 and S2, no gallops, no murmurs, no rubs ABDOMEN: Soft, nontender. No hepatosplenomegaly, normal bowel sounds, no guarding or rigidity. EXTREMITIES: No clubbing, no edema, no cyanosis, 2+ pulses and upper and lower extremities. MUSCULOSKELETAL: Muscle strength and tone normal. SPINE: No scoliosis or deformity SKIN: No rashes CENTRAL NERVOUS SYSTEM: Alert and oriented -3. No focal deficits, tone is normal in all 4 extremities. PSYCHIATRIC: Alert and oriented -3. Appropriate affect. Intact judgment and insight. Results - Laboratory Findings CBC and BMP: 06/24/19 18:48 06/24/19 18:48 PT/INR, D-dimer PT 10.2 sec (9.0-12.0) 06/24/19 18:48 INR 0.9 (<1.2) 06/24/19 18:48 Abnormal lab findings: Abnormal Labs 06/24/19 06/24/19 06/24/19 18:48 18:48 18:48 WBC 17.1 H RBC 4.02 L Hgb 9.1 L Hct 31.1 L MCV 77.4 L MCH 22.7 L MCHC 29.4 L RDW 16.7 H Neutrophils # 15.8 H Lymphocytes # 0.4 L Sodium 134 L Chloride 94 L BUN 61 H Creatinine 2.39 H Glucose 145 H POC Glucose (mg/dL) Alkaline Phosphatase 140 H Troponin I 0.069 H* Urine Protein 06/24/19 06/25/19 06/25/19 18:48 00:30 06:09 WBC RBC Hgb Hct MCV MCH MCHC RDW Neutrophils # Lymphocytes # Sodium Chloride BUN Creatinine Glucose POC Glucose (mg/dL) Alkaline Phosphatase Troponin I 0.075 H* 0.068 H* Urine Protein 1+ H 06/25/19 06/25/19 06/25/19 06:11 06:15 09:38 WBC RBC Hgb Hct MCV MCH MCHC RDW Neutrophils # Lymphocytes # Sodium Chloride BUN Creatinine Glucose POC Glucose (mg/dL) 541 H 568 H >600 H Alkaline Phosphatase Troponin I Urine Protein 06/25/19 06/25/19 09:40 12:00 WBC RBC Hgb Hct MCV MCH MCHC RDW Neutrophils # Lymphocytes # Sodium Chloride BUN Creatinine Glucose POC Glucose (mg/dL) >600 H 583 H Alkaline Phosphatase Troponin I Urine Protein - Diagnostic Findings Chest x-ray: report reviewed, image reviewed Additional studies: EKG reviewed Assessment and Plan Plan: Assessment: #1. Acute exacerbation of chronic congestive heart failure, with diastolic dysfunction #2. Acute exacerbation of COPD, with tracheobronchitis #3. Acute hypoxic rest or a failure related to the above, improved with diuretics breathing treatments a back #4. Chronic atrial fibrillation status post ablation, on anticoagulation with Eliquis #5. Chronic kidney disease stage IV #6. Severe COPD, with a baseline FEV1 of 2.52 L or 67% of predicted #7. Former smoker #8. Diabetes mellitus nephropathy, neuropathy #9. Hypertension #10. Coronary artery disease with prior stenting #11. Previous episode of non-ST elevated CT #12. Chronic liver disease Plan: Continue the diuretics, continue antibiotics, continue nebulized bronchodilators, Symbicort, was given a dose of IV steroids, he is feeling significantly better this afternoon to her diuresing 1600 mL of urine. He is on room air, no signs are stable, no complaints of chest pain. Obtain follow-up chest x-ray in the morning, currently afebrile. Remains in sinus rhythm, continue with oral anticoagulation, cardiology is following. Anticipate further improvement, and possible discharge tomorrow I performed a history & physical examination of the patient and discussed their management with my nurse practitioner, Jojo Langford. I reviewed the nurse practitioner's note and agree with the documented findings and plan of care. Lung sounds are positive for bibasilar rales throughout the lung tobias. The findings and the impression was discussed with the patient. I attest to the documentation by the nurse practitioner. Time with Patient: Greater than 30
[2019-06-25 16:48] LABS: Glucose,Whole Blood 521 mg/dL (75-99)
--- NOTE | 2019-06-25 18:18 | ECHOF ---
Referral Reason:Chest pain and cardiomyopathy MEASUREMENTS -------- HEIGHT: 175.3 cm WEIGHT: 88.9 kg BP: 135/73 RVIDd: 3.8 cm (< 3.3) IVSd: 1.3 cm (0.6 - 1.1) LVIDd: 5.2 cm (3.9 - 5.3) LVPWd: 1.1 cm (0.6 - 1.1) IVSs: 1.8 cm LVIDs: 3.1 cm LVPWs: 1.5 cm LA Diam: 4.6 cm (2.7 - 3.8) LAESV Index (A-L): 50.89 ml/m Ao Diam: 3.3 cm (2.0 - 3.7) AV Cusp: 2.0 cm (1.5 - 2.6) MV EXCURSION: 17.701 mm (> 18.000) MV EF SLOPE: 77 mm/s (70 - 150) EPSS: 0.9 cm MV E Reagan: 1.30 m/s MV DecT: 160 ms MV A Reagan: 0.57 m/s MV E/A Ratio: 2.26 AV maxP.34 mmHg AV meanP.10 mmHg RAP: 5.00 mmHg RVSP: 50.90 mmHg FINDINGS -------- Sinus rhythm. This was a technically good study. The left ventricular size is normal. There is mild concentric left ventricular hypertrophy. Overa ll left ventricular systolic function is normal with, an EF between 55 - 60 %. The right ventricle is mild to moderately enlarged. LA is severely dilated >40 ml/m2 The right atrium is normal in size. Interatrial and interventricular septum intact. There is mild aortic valve sclerosis. Mild mitral annular calcification present. Mild mitral regurgitation is present. Moderate tricuspid regurgitation present. There is moderate pulmonary hypertension. The right emil tricular systolic pressure, as measured by Doppler, is 50.90mmHg. Trace/mild (physiologic) pulmonic regurgitation. The aortic root size is normal. Normal inferior vena cava with normal inspiratory collapse consistent with estimated right atrial pre ssure of 5 mmHg. The pericardium is normal. There is no pericardial effusion. CONCLUSIONS -------- 1. Sinus rhythm. 2. This was a technically good study. 3. The left ventricular size is normal. 4. There is mild concentric left ventricular hypertrophy. 5. Overall left ventricular systolic function is normal with, an EF between 55 - 60 %. 6. The right ventricle is mild to moderately enlarged. 7. LA is severely dilated >40 ml/m2 8. The right atrium is normal in size. 9. Interatrial and interventricular septum intact. 10. There is mild aortic valve sclerosis. 11. Mild mitral annular calcification present. 12. Mild mitral regurgitation is present. 13. Moderate tricuspid regurgitation present. 14. There is moderate pulmonary hypertension. 15. The right ventricular systolic pressure, as measured by Doppler, is 50.90mmHg. 16. Trace/mild (physiologic) pulmonic regurgitation. 17. The aortic root size is normal. 18. Normal inferior vena cava with normal inspiratory collapse consistent with estimated right atrial pressure of 5 mmHg. 19. The pericardium is normal. 20. There is no pericardial effusion. SUPERVISOR GRADING: Lissette Weber RDCS
[2019-06-25] MEDS: PRAVASTATIN SODIUM 40 MG TAB PO SCH (20:12)
[2019-06-25 20:16] LABS: Glucose,Whole Blood 455 mg/dL (75-99)
[2019-06-25] MEDS ORDERED: CLOPIDOGREL 75 MG TAB PO SCH (21:00)
[2019-06-25] MEDS ORDERED: INSULIN DETEMIR (LEVEMIR) 100 UNIT/ML SYR SQ SCH (21:00)
[2019-06-25] MEDS ORDERED: MONTELUKAST 10 MG TAB PO SCH (21:00)
[2019-06-25] MEDS: SYMBICORT 160-4.5 MCG INHALER INHALATION SCH (21:07)
[2019-06-26] MEDS ORDERED: LEVOFLOXACIN 500 MG TAB PO SCH
[2019-06-26 06:03] LABS: Glucose,Whole Blood 277 mg/dL (75-99)
[2019-06-26] MEDS: INSULIN ASPART (NovoLOG) 100 UNIT/ML VIAL SQ SCH ×3 (06:19→13:57)
[2019-06-26] MEDS: FLECAINIDE 50 MG TAB PO SCH ×2 (06:19→13:57)
[2019-06-26] MEDS: IPRATROPIUM-ALBUTEROL 3 ML NEB INHALATION SCH ×3 (06:44→13:57)
[2019-06-26] MEDS: SYMBICORT 160-4.5 MCG INHALER INHALATION SCH (06:44)
[2019-06-26 07:46] LABS: Anisocytosis Slight; HCT 30.5 % (39.0-53.0); HGB 9.2 gm/dL (13.0-17.5); Hypochromasia Slight; MCH 23.6 pg (25.0-35.0); MCHC 30.3 g/dL (31.0-37.0); MCV 77.9 fL (80.0-100.0); Mean Platelet Volume 7.7; Microcytosis Slight; Platelet Count 299 k/uL (150-450); RBC 3.92 m/uL (4.30-5.90); RDW 16.8 % (11.5-15.5); WBC 21.3 k/uL (3.8-10.6)
[2019-06-26] MEDS: METOPROLOL TARTRATE 50 MG TAB PO SCH (07:59)
[2019-06-26] MEDS: ASPIRIN 325 MG TAB PO SCH (07:59)
[2019-06-26] MEDS: hydrALAZINE HCL 50 MG TAB PO SCH ×2 (08:00→13:57)
[2019-06-26] MEDS: FUROSEMIDE 40 MG TAB PO SCH ×2 (08:00→13:57)
[2019-06-26] MEDS: ISOSORBIDE MONONITRATE ER 30 MG TAB.ER.24H PO SCH (08:00)
[2019-06-26] MEDS: PANTOPRAZOLE 40 MG TABLET PO SCH (08:00)
[2019-06-26] MEDS: APIXABAN 5 MG TAB PO SCH (08:00)
[2019-06-26] MEDS: PRAVASTATIN SODIUM 40 MG TAB PO SCH (08:00)
[2019-06-26] MEDS: DILTIAZEM ORAL 30 MG TAB PO SCH (08:00)
[2019-06-26] MEDS: ALLOPURINOL 100 MG TAB PO SCH (08:00)
[2019-06-26 08:02] LABS: Calcium 8.7 mg/dL (8.4-10.2); Magnesium 2.4 mg/dL (1.6-2.3); Potassium 4.1 mmol/L (3.5-5.1)
--- NOTE | 2019-06-26 08:23 | XR ---
EXAMINATION TYPE: XR chest 2V DATE OF EXAM: 06/26/2019 COMPARISON: Prior chest x-ray 06/24/[address] and x-ray 02/15/2019 HISTORY: Abnormal chest x-ray, bronchitis TECHNIQUE: Frontal and lateral views of the chest are obtained. FINDINGS: Right hemidiaphragm remains elevated, subsegmental atelectatic changes likely present calvin g the right lower lobe. There is no pneumothorax. Heart size is stable accounting for patient rotatio n. Pacemaker is over the left pectoral region with leads in the right atrium and ventricle. Interstit ium mildly increased. Minimal blunting of the posterior costophrenic angle. There are coronary artery calcifications. IMPRESSION: Probable basilar atelectasis, difficult to exclude minimal effusion. Chronic elevation o f the right hemidiaphragm. Difficult to exclude interstitial edema in a patient with pre-existing emp hysema.
[2019-06-26] MEDS ORDERED: predniSONE 20 MG TAB PO SCH (09:00)
[2019-06-26] MEDS: FLUTICASONE 50MCG/SPRAY NASAL 16GM EA NOSTRIL SCH (09:53)
[2019-06-26] MEDS: SODIUM FERRIC GLUCONAT-SUCROSE 125 MG in SODIUM CHLORIDE 0.9% 100 ML IVPB SCH (09:54)
[2019-06-26 10:38] VITALS: RESP 20
[2019-06-26 11:42] VITALS: BP 121/61; PULSE 70; TEMP 97.1
--- NOTE | 2019-06-26 11:47 | P.PN ---
Subjective Progress Note Date: 06/26/19 This is a 64-year-old gentleman with history of chronic kidney disease and also sick sinus syndrome status post permanent pacemaker implantation. Patient also has history of atrial fibrillation and has undergone ablation recently by Dr. Fitch. Patient now came to the hospital with complaints of increasing chest heaviness and shortness of breath which has progressed over the last few days. He was seen in the primary care physician's office for the same symptoms. While in the office. Patient felt chills and subsequent he noticed his temperature going up to 101. Patient did take inhalers and also steroids at home on his own. On admission he was noted to have white count elevation. His proBNP is elevated. His troponin values are mildly high but the pattern is not consistent with acute coronary syndrome. His blood sugar is also high. He did diurese very well after giving IV Lasix in the emergency room. He is currently on by mouth Lasix. He is also being followed by lathe winder. He had an echo cardiac gram with Doppler study performed which revealed a normal left ventricular sys tolic function. No evidence of any pericardial effusion. He's been up ambulating in the hallway without any difficulty today. Breathing is stable. Denies any chest discomfort. Blood pressure 130/70 with a heart rate in the 70s, 96% on room air. White blood cell count 21.3, hemoglobin 9.2, platelet count 299. Sodium 134, potassium 4.1, BUN 81 and creatinine 2.6. Magnesium level is 2.4. Objective - Vital Signs Vital signs: Vital Signs Temp 97.6 F 06/26/19 08:13 Pulse 74 06/26/19 11:02 Resp 20 06/26/19 08:13 BP 130/76 06/26/19 08:13 Pulse Ox 96 06/26/19 08:13 Intake & Output 06/25/19 06/26/19 06/26/19 18:59 06:59 18:59 Intake Total 475 300 Output Total 1225 950 Balance -750 -650 Weight 89.4 kg 86.3 kg Intake: IV 100 Sodium Ferric Gluconat- 100 Sucrose 125 mg In Sodium Chloride 0.9% 100 ml @ 100 mls/hr IVPB DAILY [facility] Rx#:[id number] Oral 375 300 Output: Urine 1225 950 Other: Voiding Method Toilet Toilet Toilet Urinal Urinal Urinal # Voids 1 - Exam HEENT: Normocephalic. Normal reaction of pupils, equal size, normal range of extraocular motion. No erythema or exudates in the throat. NECK: No masses, no nuchal rigidity. CHEST: No chest wall deformity. LUNGS: Equal air entry with no crackles or wheeze. HEART: S1 and S2 normal with no audible mumurs or gallops. Regular rhythm, femorals equal on both sides.. ABDOMEN: No hepatosplenomegaly, normal bowel sounds, no guarding or rigidity. SKIN: No rashes CENTRAL NERVOUS SYSTEM: No focal deficits. EXTREMITIES: No cyanosis, clubbing or edema. - Labs CBC & Chem 7: 06/26/19 07:06/26/19 07: Labs: Abnormal Lab Results - Last 24 Hours (Table) 06/25/19 06/25/19 06/25/19 Range/Units 12:00 16:46 20:14 WBC (3.8-10.6) k/uL RBC (4.30-5.90) m/uL Hgb (13.0-17.5) gm/dL Hct (39.0-53.0) % MCV (80.0-100.0) fL MCH (25.0-35.0) pg MCHC (31.0-37.0) g/dL RDW (11.5-15.5) % Sodium (137-145) mmol/L Chloride (98-107) mmol/L BUN (9-20) mg/dL Creatinine (0.66-1.25) mg/dL Glucose (74-99) mg/dL POC Glucose (mg/dL) 583 H 521 H 455 H (75-99) mg/dL Magnesium (1.6-2.3) mg/dL 06/26/19 06/26/19 06/26/19 Range/Units 06:00 07: 07: WBC 21.3 H (3.8-10.6) k/uL RBC 3.92 L (4.30-5.90) m/uL Hgb 9.2 L (13.0-17.5) gm/dL Hct 30.5 L (39.0-53.0) % MCV 77.9 L (80.0-100.0) fL MCH 23.6 L (25.0-35.0) pg MCHC 30.3 L (31.0-37.0) g/dL RDW 16.8 H (11.5-15.5) % Sodium 134 L (137-145) mmol/L Chloride 93 L (98-107) mmol/L BUN 81 H (9-20) mg/dL Creatinine 2.61 H (0.66-1.25) mg/dL Glucose 240 H (74-99) mg/dL POC Glucose (mg/dL) 277 H (75-99) mg/dL Magnesium 2.4 H (1.6-2.3) mg/dL Microbiology - Last 24 Hours (Table) 06/24/19 21:38 Blood Culture - Preliminary Blood No Growth after 24 hours Assessment and Plan Plan: Assessment and plan #1 diastolic congestive heart failure acute on chronic #2 chronic kidney disease #3 non-CA related to elevated troponin secondary to kidney disease #4 paroxysmal atrial fibrillation #5 prior pacemaker implantation #6 CAD #7 hyperlipidemia #8 hypertension #9 paroxysmal atrial fibrillation with history of A. fib ablation in the past Plan From cardiology's perspective, patient may be able to be discharged home today, a follow-up appointment will be made in the office post discharge. DNP note has been reviewed, I agree with a documented findings and plan of care. Patient was seen and examined.
--- NOTE | 2019-06-26 12:00 | P.PN ---
Subjective Patient is seen in follow for acute kidney injury and chronic kidney disease. Patient has chronic kidney disease stage III with baseline creatinine near 2. Recently his creatinine has been in the range of 2.3-2.5. Today it is 2.61. Patient is maintained on Lasix 40 mg orally twice daily. Hemodynamically stable. Urine output is good. No vomiting or diarrhea. Vital signs are stable. General: The patient appeared well nourished and normally developed. HEENT: Head exam is unremarkable. Neck is without jugular venous distension. LUNGS: Lungs are clear to auscultation and percussion. Breath sounds decreased. HEART: Rate and Rhythm are regular. First and second heart sounds normal. No murmurs, rubs or gallops. ABDOMEN: Abdominal exam reveals normal bowel sounds. Non-tender and non- distended. No evidence of peritonitis. EXTREMITITES: No clubbing, cyanosis, or edema. Objective - Vital Signs Vital signs: Vital Signs Temp 97.1 F L 06/26/19 11:40 Pulse 70 06/26/19 11:40 Resp 20 06/26/19 11:40 BP 121/61 06/26/19 11:40 Pulse Ox 97 06/26/19 11:40 Intake & Output 06/25/19 06/26/19 06/26/19 18:59 06:59 18:59 Intake Total 475 300 600 Output Total 1225 950 Balance -750 -650 600 Weight 89.4 kg 86.3 kg Intake: IV 100 Sodium Ferric Gluconat- 100 Sucrose 125 mg In Sodium Chloride 0.9% 100 ml @ 100 mls/hr IVPB DAILY [facility] Rx#:[id number] Oral 375 300 600 Output: Urine 1225 950 Other: Voiding Method Toilet Toilet Toilet Urinal Urinal Urinal # Voids 1 - Labs CBC & Chem 7: 06/26/19 07:19 06/26/19 07:19 Labs: Abnormal Lab Results - Last 24 Hours (Table) 06/25/19 06/25/19 06/25/19 Range/Units 12:00 16:46 20:14 WBC (3.8-10.6) k/uL RBC (4.30-5.90) m/uL Hgb (13.0-17.5) gm/dL Hct (39.0-53.0) % MCV (80.0-100.0) fL MCH (25.0-35.0) pg MCHC (31.0-37.0) g/dL RDW (11.5-15.5) % Sodium (137-145) mmol/L Chloride (98-107) mmol/L BUN (9-20) mg/dL Creatinine (0.66-1.25) mg/dL Glucose (74-99) mg/dL POC Glucose (mg/dL) 583 H 521 H 455 H (75-99) mg/dL Magnesium (1.6-2.3) mg/dL 06/26/19 06/26/19 06/26/19 Range/Units 06:00 07:19 07:19 WBC 21.3 H (3.8-10.6) k/uL RBC 3.92 L (4.30-5.90) m/uL Hgb 9.2 L (13.0-17.5) gm/dL Hct 30.5 L (39.0-53.0) % MCV 77.9 L (80.0-100.0) fL MCH 23.6 L (25.0-35.0) pg MCHC 30.3 L (31.0-37.0) g/dL RDW 16.8 H (11.5-15.5) % Sodium 134 L (137-145) mmol/L Chloride 93 L (98-107) mmol/L BUN 81 H (9-20) mg/dL Creatinine 2.61 H (0.66-1.25) mg/dL Glucose 240 H (74-99) mg/dL POC Glucose (mg/dL) 277 H (75-99) mg/dL Magnesium 2.4 H (1.6-2.3) mg/dL Microbiology - Last 24 Hours (Table) 06/24/19 21:38 Blood Culture - Preliminary Blood No Growth after 24 hours Assessment and Plan Plan: Assessment: 1. Acute kidney injury mostly prerenal secondary to cardiorenal syndrome. Creatinine 2.61 today. 2. Chronic kidney disease stage III secondary to diabetic kidney disease with baseline creatinine near 2. Serologies have been negative outpatient. 3. Dyspnea secondary to volume overload. 4. Diastolic CHF with moderate tricuspid regurgitation and pulmonary hypertension. 5. Atrial fibrillation status post ablation earlier this month. 6. Insulin-dependent diabetes mellitus. 7. Hypertension with chronic kidney disease. Controlled. 8. Anemia of chronic kidney disease. Iron deficiency noted. 9. Fever. ? Bronchitis versus pneumonia. No evidence of UTI. Plan: Maintain Lasix 40 mg orally twice daily. Ferrlecit 125 mg daily 3 doses. Second dose today. Avoid nephrotoxins. Repeat electrolytes in the morning. Will benefit from TU inhibition once GFR returns back to baseline. Follow up outpatient in the next 2-3 weeks. Patient has been advised to follow a low-salt diet.
[2019-06-26 12:14] LABS: Glucose,Whole Blood 291 mg/dL (75-99)
--- NOTE | 2019-06-26 12:30 | P.PN ---
Subjective Progress Note Date: 06/26/19 Principal diagnosis: Shortness of breath, congestive heart failure This is a 64-year-old white male patient with past medical history moderately severe COPD, with a baseline FEV1 of 2.52 L or 67% of predicted, chronic atrial fibrillation status post ablation, diabetes mellitus type 2, cirrhosis of liver, hypertension, chronic kidney disease stage IV, previous episode of non-ST elevated UT, and patient has had previous coronary stenting. Patient presented to the hospital on 06/24/2019 for evaluation of worsening shortness of breath since the weekend. Patient did have a recent ablation procedure for atrial fibrillation 1 week ago. Reports 10 pound weight gain since the weekend, reports mild chest heaviness, improved with breathing treatment and the nitro. Did have a fever on presentation with the temp of 101.3F, pulse ox was 85 on room air, chest x-ray was completed showing mild pulmonary interstitial edema, blunting of the costophrenic angles, and up left axillary pacemaker in place. EKG showed sinus rhythm with occasional PVCs, and incomplete left bundle branch block. White blood cell count was 17.1, hemoglobin is 9.1, sodium is 134, potassium is 4.5, chloride is 94, CO2 is 30, BUN is 61, creatinine is 2.39, troponins were 0.069, 0.075, and 0.068, proBNP was 5210, urinalysis was negative for infection. She was started on empiric antibiotics for a concern of infection. Patient was given IV Lasix, he is on chronic anticoagulation with Eliquis, breathing treatments, he was given a dose of Solu-Medrol, and this afternoon his breathing has significantly improved. He is putting out large amount of urine, so far he is in -1600 mL fluid balance. Currently is afebrile, and platelets of chest pain, no significant cough or congestion, no wheezing, on Levaquin for empiric antibiotic coverage. On 06/26/2019 patient is seen in follow-up on selective care unit, he is awake and alert, oriented 3, in no acute distress, he is on room air, with a pulse ox of 97%, afebrile, hemodynamically stable, plans of chest pain, patient remains in sinus rhythm, with monitor showing sometimes paced beats. No worsening shortness of breath, patient has been ambulating extensively in the hallway, several laps at a time tolerating activity very well, today's chest x-ray has been reviewed, showing probable basilar atelectasis, with minimal pleural effusions. Weight is down by 3.1 kg in the last 24 hours. Patient is stable from pulmonary perspective for discharge. No fever or chills, no cough or congestion. Objective - Vital Signs Vital signs: Vital Signs Temp 97.1 F L 06/26/19 11:40 Pulse 70 06/26/19 11:40 Resp 20 06/26/19 11:40 BP 121/61 06/26/19 11:40 Pulse Ox 97 06/26/19 11:40 Intake & Output 06/25/19 06/26/19 06/26/19 18:59 06:59 18:59 Intake Total 475 300 700 Output Total 1225 950 300 Balance -750 -650 400 Weight 89.4 kg 86.3 kg Intake: IV 100 Sodium Ferric Gluconat- 100 Sucrose 125 mg In Sodium Chloride 0.9% 100 ml @ 100 mls/hr IVPB DAILY [facility] Rx#:[id number] Intake, IV Titration 100 Amount Sodium Ferric Gluconat- 100 Sucrose 125 mg In Sodium Chloride 0.9% 100 ml @ 100 mls/hr IVPB DAILY [facility] Rx#:[id number] Oral 375 300 600 Output: Urine 1225 950 300 Other: Voiding Method Toilet Toilet Toilet Urinal Urinal Urinal # Voids 1 1 # Bowel Movements 1 - Exam GENERAL EXAM: Alert, pleasant, 64-year-old white male, on room air, sats at 95% comfortable in no apparent distress. HEAD: Normocephalic/atraumatic. EYES: Normal reaction of pupils, equal size. Conjunctiva pink, sclera white. NOSE: Clear with pink turbinates. THROAT: No erythema or exudates. NECK: No masses, no JVD, no thyroid enlargement, no adenopathy. CHEST: No chest wall deformity. Symmetrical expansion. LUNGS: Equal air entry with no crackles, wheeze, rhonchi or dullness. CVS: Regular rate and rhythm, normal S1 and S2, no gallops, no murmurs, no rubs ABDOMEN: Soft, nontender. No hepatosplenomegaly, normal bowel sounds, no guarding or rigidity. EXTREMITIES: No clubbing, no edema, no cyanosis, 2+ pulses and upper and lower extremities. MUSCULOSKELETAL: Muscle strength and tone normal. SPINE: No scoliosis or deformity SKIN: No rashes CENTRAL NERVOUS SYSTEM: Alert and oriented -3. No focal deficits, tone is normal in all 4 extremities. PSYCHIATRIC: Alert and oriented -3. Appropriate affect. Intact judgment and insight. - Labs CBC & Chem 7: 06/26/19 07:19 06/26/19 07:19 Labs: Abnormal Lab Results - Last 24 Hours (Table) 06/25/19 06/25/19 06/26/19 Range/Units 16:46 20:14 06:00 WBC (3.8-10.6) k/uL RBC (4.30-5.90) m/uL Hgb (13.0-17.5) gm/dL Hct (39.0-53.0) % MCV (80.0-100.0) fL MCH (25.0-35.0) pg MCHC (31.0-37.0) g/dL RDW (11.5-15.5) % Sodium (137-145) mmol/L Chloride (98-107) mmol/L BUN (9-20) mg/dL Creatinine (0.66-1.25) mg/dL Glucose (74-99) mg/dL POC Glucose (mg/dL) 521 H 455 H 277 H (75-99) mg/dL Magnesium (1.6-2.3) mg/dL 06/26/19 06/26/19 06/26/19 Range/Units 07:19 07:19 11:58 WBC 21.3 H (3.8-10.6) k/uL RBC 3.92 L (4.30-5.90) m/uL Hgb 9.2 L (13.0-17.5) gm/dL Hct 30.5 L (39.0-53.0) % MCV 77.9 L (80.0-100.0) fL MCH 23.6 L (25.0-35.0) pg MCHC 30.3 L (31.0-37.0) g/dL RDW 16.8 H (11.5-15.5) % Sodium 134 L (137-145) mmol/L Chloride 93 L (98-107) mmol/L BUN 81 H (9-20) mg/dL Creatinine 2.61 H (0.66-1.25) mg/dL Glucose 240 H (74-99) mg/dL POC Glucose (mg/dL) 291 H (75-99) mg/dL Magnesium 2.4 H (1.6-2.3) mg/dL Microbiology - Last 24 Hours (Table) 06/24/19 21:38 Blood Culture - Preliminary Blood No Growth after 24 hours Assessment and Plan Plan: Assessment: #1. Acute exacerbation of chronic congestive heart failure, with diastolic dysfunction #2. Acute exacerbation of COPD, with tracheobronchitis #3. Acute hypoxic rest or a failure related to the above, improved with diure tics breathing treatments a back #4. Chronic atrial fibrillation status post ablation, on anticoagulation with Eliquis #5. Chronic kidney disease stage IV #6. Severe COPD, with a baseline FEV1 of 2.52 L or 67% of predicted #7. Former smoker #8. Diabetes mellitus nephropathy, neuropathy #9. Hypertension #10. Coronary artery disease with prior stenting #11. Previous episode of non-ST elevated UT #12. Chronic liver disease Plan: Chest x-ray is improving, clinically patient is stable, no complaints of shortness of breath or chest pain, remains in sinus rhythm, vital signs are s table, no cough, congestion, no fever or chills, stable for discharge from pulmonary perspective. Follow-up with Dr. Wilkes in the office in 7-10 days I performed a history & physical examination of the patient and discussed their management with my nurse practitioner, Jojo Langford. I reviewed the nurse practitioner's note and agree with the documented findings and plan of care. Lung sounds are positive for bibasilar rales throughout the lung tobias. The findings and the impression was discussed with the patient. I attest to the documentation by the nurse practitioner. Time with Patient: Less than 30
--- NOTE | 2019-06-26 13:09 | P.DS ---
Providers Date of admission: 06/24/19 20:25 Attending physician: Gabe Mccarty MD Consults: 06/24/19 20:15 Consult Physician Stat Consulting Provider: Jenni Mcghee Consult Reason/Comments: chf exacerbation, copd exacerbation, ckd, elevated troponin w/out cp Do you want consulting provider notified?: Yes Consult Physician Urgent Consulting Provider: Jeancarlos Chavarria Consult Reason/Comments: chf exacerbation, copd exacerbation, ckd, elevated troponin w/out cp Do you want consulting provider notified?: Yes 06/25/19 13:15 Consult Physician Routine Consulting Provider: Agnieszka Calero Consult Reason/Comments: known to Dr. Queen, COPD/CHF ex. Do you want consulting provider notified?: Already Contacted Primary care physician: Ivy Valentine [facility] Course: 64-year-old with history of sick sinus syndrome and recent dilation chronic diastolic dysfunction came in with compensative chest heaviness and shortness of breath chest x-ray showed some chronic interstitial changes although patient had fever yesterday denied any significant cough with sputum production patient. Patient does have history of COPD is not wheezing significantly at this time patient has highly elevated blood sugars because of which I'll discontinue all his IV steroids. Patient was on IV Lasix which she will be switched to oral Lasix patient is fairly euvolemic at this time. No wheezing or crackles were appreciated on exam. Patient does have chronic kidney disease stage IV with baseline creatinine around 2. This is secondary to diabetic nephropathy any. Patient doesn't have any significant elevated JVD at this time. Atypical pneumonia or severe tachycardia bronchitis cannot be ruled out because of which are good and continue with levofloxacin although not an ideal choice patient has multiple ALLERGIES. Echocardiogram is being obtained to assess his LV function. Patient has mild elevation of troponin and patient had some chest heaviness although his troponin elevation is probably secondary to chronic kidney disease and heart failure. 06/26/2019 No overnight events patient is clinically doing well saturating well on room air. Patient blood sugars are fairly controlled today patient will be discharged today was cleared by cardiology and pulmonology. Patient will followed nephrology as outpatient patient will be discharged on iron supplementation. Patient will be discharged on inhaled steroids as PHYSICAL EXAMINATION: GENERAL: The patient is alert and oriented x3, not in any acute distress. Well developed, well nourished. HEENT: Pupils are round and equally reacting to light. EOMI. No scleral icterus. No conjunctival pallor. Normocephalic, atraumatic. No pharyngeal erythema. No thyromegaly. CARDIOVASCULAR: S1 and S2 present. No murmurs, rubs, or gallops. PULMONARY: Chest is clear to auscultation, no wheezing or crackles. ABDOMEN: Soft, nontender, nondistended, normoactive bowel sounds. No palpable organomegaly. MUSCULOSKELETAL: No joint swelling or deformity. EXTREMITIES: No cyanosis, clubbing, or pedal edema. NEUROLOGICAL: Gross neurological examination did not reveal any focal deficits. SKIN: No rashes. Assessment and Plan Plan: Shortness of breath: Most probably secondary to pulmonary edema which is again secondary to chronic diastolic dysfunction with acute exacerbation. Patient was resumed on 40 mg oral steroids and will be discharged today patient is euvolemic today -Possibly of COPD with mild acute exacerbation, improved with the a dose of IV steroids in ER this was subsequently discontinued patient will be discharged on inhaled steroids -Fever with leukocytosis can be related to either atypical pneumonia or severe tracheal bronchitis discharged on levofloxacin. -Chronic kidney disease stage IV secondary to diabetic nephropathy patient's ferritin levels are extremely low patient is received IV iron transfusion, will be discharged on oral iron supplementation -Possible chronic iron deficiency anemia -Mildly elevated troponin secondary to chronic kidney disease or CHF - atrial fibrillation or sick sinus syndrome continue with present medications patient is rate controlled at this time. Patient is status post ablation continue with anticoagulation -Type 2 diabetes mellitus with uncontrolled an elevated blood sugars secondary to systemic steroids -Hyperlipidemia -Coronary artery disease -Benign prostatic hypertrophy -Gastro-esophageal reflux disease Patient Condition at Discharge: Serious Plan - Discharge Summary New Discharge Prescriptions: New Ferrous Gluconate 324 mg PO AC-BID #60 tablet Levofloxacin [Levaquin] 500 mg PO Q24H #5 tab Budesonide-Formot 160-4.5 Mcg [Symbicort 160-4.5 Mcg Inhaler] 2 puff INHALATION RT-BID #1 inhaler Continue Insulin Detemir (Levemir) [Levemir] 34 unit SQ HS Fluticasone Nasal [place] [Flonase Nasal [place]] 1 spray EA NOSTRIL BID Pravastatin Sodium [Pravachol] 40 mg PO HS hydrALAZINE HCL [Apresoline] 100 mg PO TID #90 tab Nitroglycerin Sl Tabs [Nitrostat] 0.4 mg SUBLINGUAL Q5M PRN #25 tab PRN Reason: Chest Pain Cholecalciferol [Vitamin D3 (25 Mcg = 1000 Iu)] 3,000 unit PO PC-BRKFST Isosorbide Mononitrate ER [Imdur] 30 mg PO DAILY Pantoprazole [Protonix] 40 mg PO DAILY Montelukast [Singulair] 10 mg PO HS INSULIN ASPART (NovoLOG) [NovoLOG (formulary)] See Protocol SQ TID-W/MEALS Clopidogrel [Plavix] 75 mg PO HS Metoprolol Tartrate [Lopressor] 100 mg PO BID Loratadine [Claritin] 10 mg PO DAILY Magnesium. 300 mg PO DAILY Apixaban [Eliquis] 5 mg PO BID #60 tab Furosemide [Lasix] 40 mg PO BID@0900,1600 #60 tab Flecainide [Tambocor] 50 mg PO Q12HR@0700,1900 #60 tab Ipratropium-Albuterol Nebulize [Duoneb 0.5 mg-3 mg/3 ml Soln] 3 ml INHALATION RT-QID PRN PRN Reason: Shortness Of Breath Allopurinol [Zyloprim] 100 mg PO DAILY Vitamin B Complex 1 cap PO DAILY Diltiazem Oral [Cardizem*] 90 mg PO BID Discharge Medication List Insulin Detemir (Levemir) [Levemir] 34 unit SQ HS 08/18/14 [History] Fluticasone Nasal [place] [Flonase Nasal [place]] 1 spray EA NOSTRIL BID 05/12/16 [History] Pravastatin Sodium [Pravachol] 40 mg PO HS 12/06/17 [History] hydrALAZINE HCL [Apresoline] 100 mg PO TID #90 tab 06/07/18 [Rx] Nitroglycerin Sl Tabs [Nitrostat] 0.4 mg SUBLINGUAL Q5M PRN #25 tab 06/28/18 [Rx] Cholecalciferol [Vitamin D3 (25 Mcg = 1000 Iu)] 3,000 unit PO PC-BRKFST 08/26/18 [History] Isosorbide Mononitrate ER [Imdur] 30 mg PO DAILY 01/16/19 [History] Pantoprazole [Protonix] 40 mg PO DAILY 01/16/19 [History] INSULIN ASPART (NovoLOG) [NovoLOG (formulary)] See Protocol SQ TID-W/MEALS 02/12/19 [History] Montelukast [Singulair] 10 mg PO HS 02/12/19 [History] Clopidogrel [Plavix] 75 mg PO HS 02/15/19 [History] Loratadine [Claritin] 10 mg PO DAILY 03/28/19 [History] Magnesium. 300 mg PO DAILY 03/28/19 [History] Metoprolol Tartrate [Lopressor] 100 mg PO BID 03/28/19 [History] Apixaban [Eliquis] 5 mg PO BID #60 tab 04/03/19 [Rx] Flecainide [Tambocor] 50 mg PO Q12HR@0700,1900 #60 tab 04/10/19 [Rx] Furosemide [Lasix] 40 mg PO BID@0900,1600 #60 tab 04/10/19 [Rx] Ipratropium-Albuterol Nebulize [Duoneb 0.5 mg-3 mg/3 ml Soln] 3 ml INHALATION RT-QID PRN 06/12/19 [History] Allopurinol [Zyloprim] 100 mg PO DAILY 06/24/19 [History] Diltiazem Oral [Cardizem*] 90 mg PO BID 06/24/19 [History] Vitamin B Complex 1 cap PO DAILY 06/24/19 [History] Budesonide-Formot 160-4.5 Mcg [Symbicort 160-4.5 Mcg Inhaler] 2 puff INHALATION RT-BID #1 inhaler 06/26/19 [Rx] Ferrous Gluconate 324 mg PO AC-BID #60 tablet 06/26/19 [Rx] Levofloxacin [Levaquin] 500 mg PO Q24H #5 tab 06/26/19 [Rx] Follow up Appointment(s)/Referral(s): Agnieszka Calero MD [STAFF PHYSICIAN] - 1 Week Jenni Mcghee MD [STAFF PHYSICIAN] - 07/30/19 10:20 am (With Chat.) Zeina Morgan MD [STAFF PHYSICIAN] - 07/04/19 9:15 am Ivy Valentine DO [Primary Care Provider] - 06/27/19 2:20 pm Patient Instructions/Handouts: Heart Failure (DC), Chronic Kidney Disease Diet (DC), Low-Sodium Diet (DC), Atelectasis (DC) Discharge Disposition: HOME SELF-CARE
[2019-06-26] MEDS ORDERED: LEVOFLOXACIN 750MG-D5W PMX 750 MG in DEXTROSE/WATER 1 150ML.BAG IVPB SCH (22:00)
[2019-06-27] MEDS ORDERED: LEVOFLOXACIN 250 MG TAB PO SCH
== END 2019-06-26 13:51 | disposition home or self-care (01) | DRG 291 ==
LOC: EC 18:17 → 3SCARD 20:25 → 2SICU 06-25 08:41 → 3SCARD 06-25 23:26
PROVIDERS: ADMIT Internal Medicine; ATTEND Internal Medicine
DX: I13.0 Hypertensive heart and chronic kidney disease with heart failure and stage 1 through stage 4 chronic kidney disease, or unspecified chronic kidney disease (principal); J96.01 Acute respiratory failure with hypoxia; I50.33 Acute on chronic diastolic (congestive) heart failure; J18.9 Pneumonia, unspecified organism; N18.4 Chronic kidney disease, stage 4 (severe); J44.1 Chronic obstructive pulmonary disease with (acute) exacerbation; J44.0 Chronic obstructive pulmonary disease with (acute) lower respiratory infection; N17.9 Acute kidney failure, unspecified; I49.5 Sick sinus syndrome; K21.9 Gastro-esophageal reflux disease without esophagitis; I25.10 Atherosclerotic heart disease of native coronary artery without angina pectoris; E78.5 Hyperlipidemia, unspecified; E11.21 Type 2 diabetes mellitus with diabetic nephropathy; E11.22 Type 2 diabetes mellitus with diabetic chronic kidney disease; E11.65 Type 2 diabetes mellitus with hyperglycemia; L13.0 Dermatitis herpetiformis; K76.9 Liver disease, unspecified; Z77.090 Contact with and (suspected) exposure to asbestos; I48.2 Chronic atrial fibrillation; N40.0 Benign prostatic hyperplasia without lower urinary tract symptoms; K74.60 Unspecified cirrhosis of liver; M54.5 Low back pain; M19.90 Unspecified osteoarthritis, unspecified site; I83.93 Asymptomatic varicose veins of bilateral lower extremities; G62.9 Polyneuropathy, unspecified; J40 Bronchitis, not specified as acute or chronic; D63.1 Anemia in chronic kidney disease; I07.1 Rheumatic tricuspid insufficiency; R74.8 Abnormal levels of other serum enzymes; I27.20 Pulmonary hypertension, unspecified; Z96.1 Presence of intraocular lens; T38.0X5A Adverse effect of glucocorticoids and synthetic analogues, initial encounter; D50.9 Iron deficiency anemia, unspecified; Z79.899 Other long term (current) drug therapy; Z79.4 Long term (current) use of insulin; I25.2 Old myocardial infarction; Z95.0 Presence of cardiac pacemaker; Z82.49 Family history of ischemic heart disease and other diseases of the circulatory system; Z95.5 Presence of coronary angioplasty implant and graft; Z87.891 Personal history of nicotine dependence; Z79.01 Long term (current) use of anticoagulants; Z88.1 Allergy status to other antibiotic agents; Z88.0 Allergy status to penicillin; Z88.2 Allergy status to sulfonamides; Z88.8 Allergy status to other drugs, medicaments and biological substances; Z90.49 Acquired absence of other specified parts of digestive tract; Z90.89 Acquired absence of other organs; Z83.3 Family history of diabetes mellitus; Z98.42 Cataract extraction status, left eye; Z98.41 Cataract extraction status, right eye
CPT/HCPCS: 36415; 71046; 80048; 80053; 80061; 81001; 83735; 83880; 84484; 85025; 85027; 85610; 85730; 87040; 93005; 93306; 94640; 96365; 96375; 96376; 99285

== ENCOUNTER → 2019-08-02 | Day surgery (SDC) | payer MEDICARE ==
[2019-08-01 10:46] VITALS: BMI 28.0
[~2019-08-02] MED LIST changes: +GLUCAGON 1 MG/ML VIAL ONE; +LACTATED RINGERS 1,000 ML IV SCH; +LIDOCAINE 1% INJ 10MG/ML (20 ML MDV) ONE; -MORPHINE SULFATE 2 MG/ML SYRINGE IV PRN; -ONDANSETRON 4 MG/2 ML VIAL IVP PRN; +PROPOFOL 10 MG/ML 20 ML VIAL IV ONE; +fentaNYL (PF) 50 MCG/ML 2 ML AMP ONE
[2019-08-02 09:00] VITALS: TEMP 97
--- NOTE | 2019-08-02 09:55 | P.PCN ---
Date of Procedure: 08/02/19 Procedure(s) Performed: Brief history: Patient is a pleasant 64-year-old white male scheduled for an elective upper endoscopy as well as colonoscopy as a part of evaluation of abdominal pain/GERD/prior history of colon polyps. Procedure performed: Esophagogastroduodenoscopy with biopsy Colonoscopy with snare polypectomy Preoperative diagnosis: GERD History of colon polyps Anesthesia: MAC Procedure: After informed consent was obtained from the patient was brought into the endoscopy unit and IV sedation was administered by anesthesia under continuous monitoring. Initially upper endoscopy was done. The Olympus GF 160 video endoscope was inserted inserted into the mouth and esophagus intubated without any difficulty and was gradually advanced into the stomach and duodenum and carefully examined. The bulb and second part of the duodenum appeared normal. The scope was then withdrawn into the stomach adequately insufflated with air and upon careful examination the antrum had mild gastritis and biopsies were done from this area. The body, cardia and fundus appeared normal. The scope was then withdrawn into the esophagus. The GE junction was located at 40 cm to the incisors. It appeared regular with no erythema erosions or ulcerations. Rest of the esophagus appeared normal. Patient tolerated the procedure well. At this time the patient continued to remain sedation. Initial digital rectal examination was normal. Olympus CF 160 video colonoscope was then inserted into the rectum and gradually advanced to the cecum without any difficulty. Careful examination was performed as the scope was gradually being withdrawn. The prep was fair but thorough irrigation was performed.. The cecum, ascending colon appeared normal. In the transverse colon there were 3 polyps measuring between 1-1.5 cm in size all of which were broad-based removed by snare polypectomy. In the descending colon there were total of 6 polyps measuring between 5 mm to 1 cm in size all of which were removed by snare polypectomy., transverse colon, descending colon, sigmoid colon and rectum appeared normal. Retroflexion was performed in the rectum and no lesions were noted. Patient tolerated the procedure well. Impression: 1. Upper endoscopy revealed mild antral gastritis but no evidence of esophagitis or peptic ulcer 2. Colonoscopy revealed: a) 3 polyps in the transverse colon measuring between 1 cm to 1.5 cm in size all of which were removed by snare polypectomy b) 6 polyps in the descending colon measuring between 5 mm to 1 cm in size all of which were removed by snare polypectomy Recommendations: Findings of this examination were discussed with the patient as well as[ his family. He was advised to follow with the biopsy results and have a repeat colonoscopy in 3 years.
[2019-08-02 10:15] VITALS: RESP 18
[2019-08-02 10:16] VITALS: BP 146/72; PULSE 55
[2019-08-02 10:27] LABS: Glucose,Whole Blood 261 mg/dL (75-99)
== END | disposition home or self-care (01) ==
LOC: ORWHC2ENDO 08:09
PROVIDERS: ATTEND Internal Medicine Gastroenterology
DX: K29.50 Unspecified chronic gastritis without bleeding (principal); K21.9 Gastro-esophageal reflux disease without esophagitis; Z86.010 Personal history of colon polyps; D12.3 Benign neoplasm of transverse colon; D12.4 Benign neoplasm of descending colon; Z12.11 Encounter for screening for malignant neoplasm of colon; I25.10 Atherosclerotic heart disease of native coronary artery without angina pectoris; I50.9 Heart failure, unspecified; I25.2 Old myocardial infarction; E78.5 Hyperlipidemia, unspecified; J44.9 Chronic obstructive pulmonary disease, unspecified; I13.0 Hypertensive heart and chronic kidney disease with heart failure and stage 1 through stage 4 chronic kidney disease, or unspecified chronic kidney disease; N18.9 Chronic kidney disease, unspecified; E11.22 Type 2 diabetes mellitus with diabetic chronic kidney disease; Z95.0 Presence of cardiac pacemaker; I48.91 Unspecified atrial fibrillation; K74.60 Unspecified cirrhosis of liver; E11.42 Type 2 diabetes mellitus with diabetic polyneuropathy; Z95.5 Presence of coronary angioplasty implant and graft; Z88.0 Allergy status to penicillin; Z88.2 Allergy status to sulfonamides; Z88.8 Allergy status to other drugs, medicaments and biological substances; Z79.899 Other long term (current) drug therapy
CPT/HCPCS: 88305; 45385; 43239; J1610; J2001; J3010; J2704

== ENCOUNTER 2019-11-11 08:48 | Inpatient (IN) | payer MEDICARE ==
--- NOTE | 2019-11-11 09:11 | ED ---
General Adult HPI - General Chief complaint: Shortness of Breath Stated complaint: SOB Time Seen by Provider: 11/11/19 08:55 Source: patient, RN notes reviewed, old records reviewed Mode of arrival: ambulatory Limitations: no limitations - History of Present Illness Initial comments: This is a 64-year-old male who presents emergency Department complaining of difficulty breathing last 2 nights. Patient states she also has a pressure sensation in his upper chest both nights as well. Patient states the breathing is prevented him from getting any sleep. Patient states it seems to be getting worse. Patient states she has a history of kidney failure diabetes atrial fibrillation congestive heart failure and COPD. Patient denies any fever chills or cough. Patient denies any abdominal pain. Patient denies any palpitations. Toe he thought he was in A. fib this morning. Patient denies any swelling to the legs or calf tenderness. Patient denies any recent trip or travel. Denies being lightheaded or dizzy. Patient states she just having a hard time breathing and he can't sleep - Related Data Home Medications Medication Instructions Recorded Confirmed Insulin Detemir (Levemir) [Levemir] 34 unit SQ HS 08/18/14 08/02/19 Fluticasone Nasal [place] [Flonase 1 spray EA NOSTRIL BID 05/12/16 11/11/19 Nasal [place]] Cholecalciferol [Vitamin D3 (25 3,000 unit PO PC-BRKFST 08/26/18 11/11/19 Mcg = 1000 Iu)] Isosorbide Mononitrate ER [Imdur] 30 mg PO DAILY 01/16/19 11/11/19 Pantoprazole [Protonix] 40 mg PO BID 01/16/19 11/11/19 INSULIN ASPART (NovoLOG) [NovoLOG See Protocol SQ TID-W/MEALS 02/12/19 08/02/19 (formulary)] Montelukast [Singulair] 10 mg PO HS 02/12/19 08/02/19 Loratadine [Claritin] 10 mg PO DAILY 03/28/19 11/11/19 Metoprolol Tartrate [Lopressor] 100 mg PO BID 03/28/19 11/11/19 Ipratropium-Albuterol Nebulize 3 ml INHALATION RT-QID PRN 06/12/19 11/11/19 [Duoneb 0.5 mg-3 mg/3 ml Soln] Allopurinol [Zyloprim] 100 mg PO DAILY 06/24/19 11/11/19 Diltiazem Oral [Cardizem*] 90 mg PO BID 06/24/19 11/11/19 Vitamin B Complex 1 cap PO DAILY 06/24/19 11/11/19 Aspirin [Adult Low Dose Aspirin EC] 81 mg PO HS 08/01/19 11/11/19 Magnesium Citrate 300 mg PO DAILY 08/01/19 11/11/19 Pravastatin Sodium [Pravachol] 20 mg PO HS 08/01/19 08/02/19 Ubidecarenone [Co Q-10] 100 mg PO DAILY 08/01/19 11/11/19 Betamethasone Dipropionate 1 applic TOPICAL DAILY 11/11/19 11/11/19 [Betamethasone Diprop Augm Gel 0.05%] Previous Rx's Medication Instructions Recorded hydrALAZINE HCL [Apresoline] 100 mg PO TID #90 tab 06/07/18 Nitroglycerin Sl Tabs [Nitrostat] 0.4 mg SUBLINGUAL Q5M PRN #25 tab 06/28/18 Apixaban [Eliquis] 5 mg PO BID #60 tab 04/03/19 Furosemide [Lasix] 40 mg PO BID@0900,1600 #60 tab 04/10/19 Budesonide-Formot 160-4.5 Mcg 2 puff INHALATION RT-BID #1 inhaler 06/26/19 [Symbicort 160-4.5 Mcg Inhaler] Allergies Allergy/AdvReac Type Severity Reaction Status Date / Time amoxicillin Allergy Anaphylaxis Verified 11/11/19 10:45 cephalexin monohydrate Allergy Rash/Hives Verified 11/11/19 10:45 [From Keflex] clindamycin Allergy Rash/Hives Verified 11/11/19 10:45 Penicillins Allergy Rash/Hives Verified 11/11/19 10:45 Sulfa (Sulfonamide Allergy Anaphylaxis Verified 11/11/19 10:45 Antibiotics) sulfamethoxazole Allergy Anaphylaxis Verified 11/11/19 10:45 [From Bactrim] trimethoprim [From Bactrim] Allergy Anaphylaxis Verified 11/11/19 10:45 amlodipine AdvReac Swelling Verified 11/11/19 10:45 carvedilol AdvReac "MAKES ME Verified 11/11/19 10:45 JERILYN" Review of Systems ROS Statement: Those systems with pertinent positive or pertinent negative responses have been documented in the HPI. ROS Other: All systems not noted in ROS Statement are negative. Past Medical History Past Medical History: Atrial Fibrillation, Coronary Artery Disease (CAD), Chest Pain / Angina, Heart Failure, COPD, Diabetes Mellitus, GERD/Reflux, Hyperlipidemia, Hypertension, Liver Disease, Myocardial Infarction (NM), Prostate Disorder, Renal Disease, Skin Disorder Additional Past Medical History / Comment(s): Neuropathy bilateral feet, stage III chronic kidney disease, chronic CHF, liver cirrhosis, BPH, DJD, herniated discs low back, chronic low back pain, varicose veins , anemia with hx of iron infusions., past asbestos exposure, celiac disease, dermatitis herpetiformis. Last Myocardial Infarction Date:: 06/2018 History of Any Multi-Drug Resistant Organisms: None Reported Past Surgical History: Ablation, Cholecystectomy, Heart Catheterization With Stent, Pacemaker, Tonsillectomy Additional Past Surgical History / Comment(s): PCI with STENTS x 3, bilateral cataracts removed with lens implants, colonoscopy. [employer] pacemaker Past Anesthesia/Blood Transfusion Reactions: No Reported Reaction Date of Last Stent Placement:: 2017 Type of Cardiac Device: Permanent Pacemaker Device Placement Date:: 02/02/19 Past Psychological History: No Psychological Hx Reported Smoking Status: Former smoker Past Alcohol Use History: None Reported Past Drug Use History: None Reported - Past Family History Mother Family Medical History: Diabetes Mellitus Father Family Medical History: Myocardial Infarction (NM) Additional Family Medical History / Comment(s): Father had a NM in his 70s. Brother(s) Family Medical History: Myocardial Infarction (NM) Additional Family Medical History / Comment(s): Brother had a NM in his 50s. General Exam - General Exam Comments Initial Comments: GENERAL: Patient is well-developed and well-nourished. Patient is nontoxic and well-hydrated and is in mild distress. ENT: Neck is soft and supple. No significant lymphadenopathy is noted. Oropharynx is clear. Moist mucous membranes. Neck has full range of motion without eliciting any pain. EYES: The sclera were anicteric and conjunctiva were pink and moist. Extraocular movements were intact and pupils were equal round and reactive to light. Eyelids were unremarkable. PULMONARY: Unlabored respirations. Good breath sounds bilaterally. No audible rales rhonchi or wheezing was noted. CARDIOVASCULAR: There is a regular rate and rhythm without any murmurs gallops or rubs. ABDOMEN: Soft and nontender with normal bowel sounds. No palpable organomegaly was noted. There is no palpable pulsatile mass. SKIN: Skin is clear with no lesions or rashes and otherwise unremarkable. NEUROLOGIC: Patient is alert and oriented x3. Cranial nerves II through XII are grossly in tact. Motor and sensory are also intact. Normal speech, volume and content. Symmetrical smile. MUSCULOSKELETAL: Normal extremities with adequate strength and full range of motion. No lower extremity swelling or edema. No calf tenderness. LYMPHATICS: No significant lymphadenopathy is noted PSYCHIATRIC: Normal psychiatric evaluation. Limitations: no limitations Course Vital Signs 11/11/19 11/11/19 08:53 09:00 Temperature 98.1 F Pulse Rate 68 Respiratory 19 18 Rate Blood Pressure 147/73 O2 Sat by Pulse 95 Oximetry Medical Decision Making - Medical Decision Making EKG shows paced rhythm at 50 bpm MI interval is 260 QRS is under QT intervals 492 QTC is 448. EKG shows some ST segment depression and T-wave inversion in leads V5 and V6 which were seen previously. Patient also has T-wave inversion in leads 1 and aVL. Patient's chest x-ray shows no acute abnormality. Patient's d-dimer was elevated but he could not have a CAT scan because his creatinine was 2. I ordered a VQ scan but not did not have the isotope at this time so patient will be admitted and have the nuclear medicine test done as an inpatient and Dr. Lindquist will be consulted. I spoke with Dr. Marino agreed to admit the patient admitted the patient wrote admitting orders. - Lab Data Result diagrams: 11/11/19 09:40 11/11/19 09:40 Lab Results 11/11/19 11/11/19 11/11/19 Range/Units 09:40 09:40 09:40 WBC 8.8 (3.8-10.6) k/uL RBC 4.35 (4.30-5.90) m/uL Hgb 12.7 L (13.0-17.5) gm/dL Hct 39.1 (39.0-53.0) % MCV 89.9 (80.0-100.0) fL MCH 29.1 (25.0-35.0) pg MCHC 32.3 (31.0-37.0) g/dL RDW 14.7 (11.5-15.5) % Plt Count 334 (150-450) k/uL Neutrophils % 81 % Lymphocytes % 8 % Monocytes % 7 % Eosinophils % 3 % Basophils % 0 % Neutrophils # 7.1 (1.3-7.7) k/uL Lymphocytes # 0.7 L (1.0-4.8) k/uL Monocytes # 0.6 (0-1.0) k/uL Eosinophils # 0.2 (0-0.7) k/uL Basophils # 0.0 (0-0.2) k/uL PT 10.7 (9.0-12.0) sec INR 1.0 (<1.2) APTT 28.4 (22.0-30.0) sec D-Dimer 3.26 H (<0.60) mg/L FEU Sodium 138 (137-145) mmol/L Potassium 4.0 (3.5-5.1) mmol/L Chloride 98 (98-107) mmol/L Carbon Dioxide 31 H (22-30) mmol/L Anion Gap 9 mmol/L BUN 46 H (9-20) mg/dL Creatinine 2.31 H (0.66-1.25) mg/dL Est GFR (CKD-EPI)AfAm 33 (>60 ml/min/1.73 sqM) Est GFR (CKD-EPI)NonAf 29 (>60 ml/min/1.73 sqM) Glucose 265 H (74-99) mg/dL Calcium 8.7 (8.4-10.2) mg/dL Magnesium 2.0 (1.6-2.3) mg/dL Total Bilirubin 0.5 (0.2-1.3) mg/dL AST 36 (17-59) U/L ALT 34 (4-49) U/L Alkaline Phosphatase 115 (38-126) U/L Troponin I (0.000-0.034) ng/mL NT-Pro-B Natriuret Pep pg/mL Total Protein 6.0 L (6.3-8.2) g/dL Albumin 3.3 L (3.5-5.0) g/dL 11/11/19 11/11/19 Range/Units 09:40 09:40 WBC (3.8-10.6) k/uL RBC (4.30-5.90) m/uL Hgb (13.0-17.5) gm/dL Hct (39.0-53.0) % MCV (80.0-100.0) fL MCH (25.0-35.0) pg MCHC (31.0-37.0) g/dL RDW (11.5-15.5) % Plt Count (150-450) k/uL Neutrophils % % Lymphocytes % % Monocytes % % Eosinophils % % Basophils % % Neutrophils # (1.3-7.7) k/uL Lymphocytes # (1.0-4.8) k/uL Monocytes # (0-1.0) k/uL Eosinophils # (0-0.7) k/uL Basophils # (0-0.2) k/uL PT (9.0-12.0) sec INR (<1.2) APTT (22.0-30.0) sec D-Dimer (<0.60) mg/L FEU Sodium (137-145) mmol/L Potassium (3.5-5.1) mmol/L Chloride (98-107) mmol/L Carbon Dioxide (22-30) mmol/L Anion Gap mmol/L BUN (9-20) mg/dL Creatinine (0.66-1.25) mg/dL Est GFR (CKD-EPI)AfAm (>60 ml/min/1.73 sqM) Est GFR (CKD-EPI)NonAf (>60 ml/min/1.73 sqM) Glucose (74-99) mg/dL Calcium (8.4-10.2) mg/dL Magnesium (1.6-2.3) mg/dL Total Bilirubin (0.2-1.3) mg/dL AST (17-59) U/L ALT (4-49) U/L Alkaline Phosphatase (38-126) U/L Troponin I 0.013 (0.000-0.034) ng/mL NT-Pro-B Natriuret Pep 1970 pg/mL Total Protein (6.3-8.2) g/dL Albumin (3.5-5.0) g/dL Disposition Clinical Impression: Dyspnea Disposition: ADMITTED IP TO THIS HOSP Referrals: Ivy Valentine DO [Primary Care Provider] - 1-2 days Time of Disposition: 11:47
--- NOTE | 2019-11-11 09:36 | XR ---
EXAMINATION TYPE: XR chest 2V DATE OF EXAM: 11/11/2019 COMPARISON: 06/26/2019 HISTORY: Shortness of breath TECHNIQUE: Frontal and lateral views of the chest are obtained. FINDINGS: There are low lung volumes throughout. Right hemidiaphragm elevation is chronic. Chronic b ibasilar atelectasis and trace left pleural effusion. Cardiomediastinal silhouette is mildly enlarged and stable with dual lead left-sided cardiac device. Mild multilevel degenerative changes of the spi ne. IMPRESSION: Low lung volumes and chronic changes such as bibasilar atelectasis and trace left pleura l effusion. No acute process.
[2019-11-11 10:08] LABS: Basophils % (A) 0 %; Eosinophils # (A) 0.2 k/uL (0-0.7); Eosinophils % (A) 3 %; HCT 39.1 % (39.0-53.0); HGB 12.7 gm/dL (13.0-17.5); Lymphocytes # (A) 0.7 k/uL (1.0-4.8); Lymphocytes % (A) 8 %; MCH 29.1 pg (25.0-35.0); MCHC 32.3 g/dL (31.0-37.0); MCV 89.9 fL (80.0-100.0); Mean Platelet Volume 7.7; Monocytes # (A) 0.6 k/uL (0-1.0); Monocytes % (A) 7 %; Neutrophils # (A) 7.1 k/uL (1.3-7.7); Neutrophils % (A) 81 %; Platelet Count 334 k/uL (150-450); RBC 4.35 m/uL (4.30-5.90); RDW 14.7 % (11.5-15.5); WBC 8.8 k/uL (3.8-10.6)
[2019-11-11 10:09] LABS: Albumin 3.3 g/dL (3.5-5.0); Calcium 8.7 mg/dL (8.4-10.2); Total Bilirubin 0.5 mg/dL (0.2-1.3)
[2019-11-11 10:17] LABS: Partial Thromboplastin Time 28.4 sec (22.0-30.0); Prothrombin Time 10.7 sec (9.0-12.0)
[2019-11-11 10:48] LABS: D-Dimer 3.26 mg/L FEU (<0.60)
[2019-11-11] MEDS ORDERED: HEPARIN SODIUM,PORCINE 10,000 UNIT/ML 1 ML VIAL IV ONE (11:29)
[2019-11-11] MEDS ORDERED: HEPARIN SOD,PORK IN 0.45% NACL 25,000 UNIT in 0.45% NACL 1 250ML.BAG IV SCH (11:30)
[2019-11-11 12:36] LABS: Glucose,Whole Blood 197 mg/dL (75-99)
[2019-11-11] MEDS ORDERED: IPRATROPIUM-ALBUTEROL 3 ML NEB INHALATION PRN (13:44)
[2019-11-11] MEDS ORDERED: INSULIN ASPART (NovoLOG) 100 UNIT/ML VIAL SQ ONE (13:45)
[2019-11-11] MEDS: INSULIN ASPART (NovoLOG) 100 UNIT/ML VIAL SQ SCH ×3 (13:55→21:41)
[2019-11-11] MEDS: hydrALAZINE HCL 50 MG TAB PO SCH ×2 (14:01→21:40)
--- NOTE | 2019-11-11 15:03 | P.CNPUL ---
History of Present Illness Consult date: 11/11/19 Reason for consult: dyspnea, chest pain History of present illness: 64-year-old male patient who presented to the [facility] department because of loulou rtness of present and discomfort in the mid chest mainly in the lower neck area. The patient apparently was having this pressure sensation upper chest/lower neck area mainly at nighttime. During the day, he does fine and he doesn't have any major difficulties. No pleurisy. No palpitations. He has a pacemaker in place and his EKG showing a paced rhythm for now. No signs of any decompensated heart failure. No cough. No sputum production. No pleurisy. No hemoptysis. Is on long-term anticoagulation with Eliquis regarding chronic atrial fibrillation. His chest x-ray showed chronic elevation of the right hemidiaphragm which has been present on previous x-rays and CAT scan of the chest. No new findings. D-dimer was elevated and a VQ scan was ordered to investigate for pulmonary embolism although my overall suspicion for pulmonary embolism is extremely low. The patient has multiple medical problems and comorbidities. Note that the patient has apulse ox of 98% on room air. He is ambulating for now in the hallways without any major limitation.hat he has minimal exercise capacity and he gets short of breath upon performing activities of the today life. He feels his lungs are checked especially when he lays down. No cough. No sputum production. No hemoptysis. No pleurisy. No chest pain. He is known to have extensive cardiac history. He has known coronary artery dis ease and his last cardiac catheterization was in June 2018 and the patient has had previous coronary stent insertion in the last catheterization was for a non- STEMI that occurred back in May 2018 and at that Time the patient was found to have critical stenosis of the first diagonal branch and he underwent an depressed and stenting. The patient's echocardiogram from January 2019 shows preserved LV function with an ejection fraction of 60 %. The patient has moderate concentric left ventricular hypertrophy. There is mild aortic valve sclerosis, mild TR, mild pulmonary hypertension with an estimated PA pressure of 50 The patient is diabetic. The patient suffers from chronic diabetic kidney disease and the patient has stage III kidney failure He has chronic atrial fibrillation. He has hypertension and hyperlipidemia and peripheral neuropathy. He has BPH. He has questionable history of liver cirrhosis in addition. He states that he is very compliant his fluid intake furthermore, the patient had a recent pacemaker insertion and this was inserted for tachybradycardia syndrome. Is on long-term and coagulation with Eliquis. Review of Systems Constitutional: Reports fatigue, Reports poor appetite, Reports weakness, Reports weight gain Eyes: denies as per HPI, denies blurred vision, denies bulging eye, denies decreased vision, denies diplopia, denies discharge, denies dry eye, denies irritation, denies itching, denies pain, denies photophobia, denies loss of peripheral vision, denies loss of vision, denies tunnel vision/blind spots Ears: deny: decreased hearing, ear discharge, earache, tinnitus Ears, nose, mouth and throat: Denies headache, Denies sore throat Cardiovascular: Reports decreased exercise tolerance, Reports dyspnea on exertion, Reports edema, Reports irregular heart beat, Reports leg edema, Reports paroxysmal nocturnal dyspnea, Reports shortness of breath Respiratory: Reports dyspnea, Reports home oxygenplan he also reports chest discomfort over the anterior chest lower neck area. Gastrointestinal: Reports as per HPI, Reports loss of appetite Genitourinary: Reports as per HPI Musculoskeletal: Reports as per HPI Musculoskeletal: bilateral: ankle swelling, absent: ankle pain, ankle stiffness, as per HPI, elbow pain, elbow stiffness, elbow swelling, foot pain, foot stiffness, foot swelling, hand pain, hand stiffness, hand swelling, hip pain, hip stiffness, hip swelling, knee pain, knee stiffness, knee swelling, shoulder pain, shoulder stiffness, shoulder swelling, wrist pain, wrist stiffness, wrist swelling Integumentary: Denies pruritus, Denies rash Neurological: Reports weakness Psychiatric: Reports as per HPI Endocrine: Reports as per HPI Hematologic/Lymphatic: Reports as per HPI Allergic/Immunologic: Reports as per HPI Past Medical History Past Medical History: Atrial Fibrillation, Coronary Artery Disease (CAD), Chest Pain / Angina, Heart Failure, COPD, Diabetes Mellitus, GERD/Reflux, Hyperlipidemia, Hypertension, Liver Disease, Myocardial Infarction (OK), Prostate Disorder, Renal Disease, Skin Disorder, Vascular Disorder Additional Past Medical History / Comment(s): history ofAfib with RVR, tachybrady syndrome with pacemaker, IDDM type II, neuropathy bilateral feet, stage III chronic kidney disease, chronic CHF, R pleural effusion, liver cirrhosis, BPH, DJD, herniated discs low back, chronic low back pain, varicose veins , anemia with hx of iron infusions., past asbestos exposure, celiac disease, dermatitis herpetiformis. Last Myocardial Infarction Date:: 06/2018 History of Any Multi-Drug Resistant Organisms: None Reported Past Surgical History: Ablation, Cholecystectomy, Heart Catheterization With Stent, Pacemaker, Tonsillectomy Additional Past Surgical History / Comment(s): PCI with STENTS x 3, bilateral cataracts removed with lens implants, colonoscopy, [employer] pacemaker Past Anesthesia/Blood Transfusion Reactions: No Reported Reaction Date of Last Stent Placement:: 2017 Type of Cardiac Device: Permanent Pacemaker Device Placement Date:: 02/02/19 Smoking Status: Former smoker - Past Family History Mother Family Medical History: Diabetes Mellitus Father Family Medical History: Myocardial Infarction (OK) Additional Family Medical History / Comment(s): Father had a OK in his 70s. Brother(s) Family Medical History: Myocardial Infarction (OK) Additional Family Medical History / Comment(s): Brother had a OK in his 50s. Medications and Allergies Home Medications Medication Instructions Recorded Confirmed Type Insulin Detemir (Levemir) [Levemir] 36 unit SQ HS 08/18/14 11/11/19 History Fluticasone Nasal [place] [Flonase 1 spray EA NOSTRIL BID 05/12/16 11/11/19 History Nasal [place]] hydrALAZINE HCL [Apresoline] 100 mg PO TID #90 tab 06/07/18 11/11/19 Rx Nitroglycerin Sl Tabs [Nitrostat] 0.4 mg SUBLINGUAL Q5M PRN #25 tab 06/28/18 11/11/19 Rx Cholecalciferol [Vitamin D3 (25 3,000 unit PO PC-BRKFST 08/26/18 11/11/19 History Mcg = 1000 Iu)] Isosorbide Mononitrate ER [Imdur] 30 mg PO DAILY 01/16/19 11/11/19 History Pantoprazole [Protonix] 40 mg PO BID 01/16/19 11/11/19 History Montelukast [Singulair] 10 mg PO HS 02/12/19 11/11/19 History Loratadine [Claritin] 10 mg PO DAILY 03/28/19 11/11/19 History Metoprolol Tartrate [Lopressor] 100 mg PO BID 03/28/19 11/11/19 History Apixaban [Eliquis] 5 mg PO BID #60 tab 04/03/19 11/11/19 Rx Furosemide [Lasix] 40 mg PO BID@0900,1600 #60 tab 04/10/19 11/11/19 Rx Ipratropium-Albuterol Nebulize 3 ml INHALATION RT-QID PRN 06/12/19 11/11/19 History [Duoneb 0.5 mg-3 mg/3 ml Soln] Allopurinol [Zyloprim] 100 mg PO DAILY 06/24/19 11/11/19 History Diltiazem Oral [Cardizem*] 90 mg PO BID 06/24/19 11/11/19 History Vitamin B Complex 1 cap PO DAILY 06/24/19 11/11/19 History Aspirin [Adult Low Dose Aspirin EC] 81 mg PO HS 08/01/19 11/11/19 History Magnesium Citrate 300 mg PO DAILY 08/01/19 11/11/19 History Ubidecarenone [Co Q-10] 100 mg PO DAILY 08/01/19 11/11/19 History Betamethasone Dipropionate 1 applic TOPICAL DAILY 11/11/19 11/11/19 History [Betamethasone Diprop Augm Gel 0.05%] INSULIN LISPRO (humaLOG) [humaLOG] See Protocol SQ AC-TID 11/11/19 11/11/19 History Pravastatin Sodium [Pravachol] 40 mg PO DAILY 11/11/19 11/11/19 History Allergies Allergy/AdvReac Type Severity Reaction Status Date / Time amoxicillin Allergy Anaphylaxis Verified 11/11/19 10:45 cephalexin monohydrate Allergy Rash/Hives Verified 11/11/19 10:45 [From Keflex] clindamycin Allergy Rash/Hives Verified 11/11/19 10:45 Penicillins Allergy Rash/Hives Verified 11/11/19 10:45 Sulfa (Sulfonamide Allergy Anaphylaxis Verified 11/11/19 10:45 Antibiotics) sulfamethoxazole Allergy Anaphylaxis Verified 11/11/19 10:45 [From Bactrim] trimethoprim [From Bactrim] Allergy Anaphylaxis Verified 11/11/19 10:45 amlodipine AdvReac Swelling Verified 11/11/19 10:45 carvedilol AdvReac "MAKES ME Verified 11/11/19 10:45 JERILYN" Physical Exam Vitals: Vital Signs Temp Pulse Resp BP Pulse Ox 11/11/19 12:19 20 151/83 11/11/19 12:00 16 141/72 98 11/11/19 11:00 16 136/71 98 11/11/19 10:00 16 136/76 98 11/11/19 09:06 17 98 11/11/19 09:00 18 11/11/19 08:53 98.1 F 68 19 147/73 95 Intake and Output 11/10/19 11/11/19 11/11/19 22:59 06:59 14:59 Intake Total 180 Balance 180 Intake: Oral 180 Other: # Voids 1 Weight 87.997 kg General appearance: alert, in no apparent distress, calm and comfortable Head exam: Present: atraumatic, normocephalic, normal inspection Eye exam: Present: normal appearance, PERRL, EOMI. Absent: scleral icterus, conjunctival injection, periorbital swelling ENT exam: Present: normal exam, mucous membranes moist Neck exam: Present: normal inspection, full ROM. Absent: tenderness, meningismus, lymphadenopathy Respiratory exam: released sounds bilaterally especially in the right lung base. No wheezes. No rhonchi. No crackles. Cardiovascular Exam: Present: irregular rate, normal rhythm, normal heart sounds. Absent: systolic murmur, diastolic murmur, rubs, gallop, clicks GI/Abdominal exam: Present: soft, normal bowel sounds. Absent: distended, tenderness, guarding, rebound, rigid Extremities exam: Present: pedal edema (3+ pitting edema) Neurological exam: Present: alert, oriented X3, CN II-XII intact Psychiatric exam: Present: normal affect, normal mood Results - Laboratory Findings CBC and BMP: 11/11/19 09:40 11/11/19 09:40 PT/INR, D-dimer PT 10.7 sec (9.0-12.0) 11/11/19 09:40 INR 1.0 (<1.2) 11/11/19 09:40 D-Dimer 3.26 mg/L FEU (<0.60) H 11/11/19 09:40 Abnormal lab findings: Abnormal Labs 11/11/19 11/11/19 11/11/19 09:40 09:40 09:40 Hgb 12.7 L Lymphocytes # 0.7 L D-Dimer 3.26 H Carbon Dioxide 31 H BUN 46 H Creatinine 2.31 H Glucose 265 H POC Glucose (mg/dL) Total Protein 6.0 L Albumin 3.3 L 11/11/19 12:34 Hgb Lymphocytes # D-Dimer Carbon Dioxide BUN Creatinine Glucose POC Glucose (mg/dL) 197 H Total Protein Albumin - Diagnostic Findings Chest x-ray: image reviewed Assessment and Plan Plan: 1 episodic chest pain/shortness of breath, exact etiology is not clear. I highly doubt the possibility of pulmonary embolism specially the patient has been on long-term and to coagulation with Eliquis and has been compliant to his medication treatment. The elevation in d-dimer is quite nonspecific. Pulse ox is currently at 98% on room air. 2 chronic dyspnea 3 coronary artery disease with previous coronary intervention and stenting 4 chronic kidney disease, stage IV secondary to diabetic nephropathy 5 COPD which is currently inactive in stable 6 chronic right hemidiaphragmatic elevation/paralysis 7 paroxysmal atrial fibrillation current rhythm is paced and the patient is demented on long-term medical condition with Eliquis 8 history of tachybradycardia syndrome past pacemaker insertion 9 hypertensive heart disease with LV concentric hypertrophy 10diabetes mellitus 11 hypertension 12 hyperlipidemia 13 osteoarthritis with previous history of herniated disc involving lower back plan Pulmonary embolism is highly doubtful. Complete VQ scan although suspicion is low Continue Eliquis dosing to be adjusted per nephrology Cardiology consultation. Consider pacemaker interrogation We'll continue to follow
--- NOTE | 2019-11-11 15:48 | NM ---
EXAMINATION TYPE: NM pul vent and perfuse DATE OF EXAM: 11/11/2019 COMPARISON: Chest x-ray same date HISTORY: Difficulty breathing TECHNIQUE: Utilizing inhalation of 67.4 mCi Tc 99m DTPA aerosol and intravenous injection of 5.1 mCi of Tc 99m MAA, ventilation and perfusion images are acquired post injection in multiple projections. FINDINGS: Normal radiotracer distribution is noted in the lungs. There is no evidence of mismatched defects. IMPRESSION: Low probability for pulmonary embolism
[2019-11-11] MEDS ORDERED: FUROSEMIDE 40 MG TAB PO SCH (16:00)
[2019-11-11 17:09] LABS: Glucose,Whole Blood 88 mg/dL (75-99)
[2019-11-11] MEDS ORDERED: NITROGLYCERIN SL TABS 0.4 MG TAB SUBLINGUAL PRN (17:17)
[2019-11-11] MEDS ORDERED: ACETAMINOPHEN TAB 500 MG TAB PO PRN (17:19)
[2019-11-11] MEDS ORDERED: ALPRAZolam 0.25 MG TAB PO PRN (17:19)
[2019-11-11] MEDS ORDERED: TEMAZEPAM 15 MG CAP PO PRN (17:19)
[2019-11-11] MEDS ORDERED: HYDROcodone/APAP 5-325MG 1 EACH TAB PO PRN (17:19)
[2019-11-11] MEDS: PANTOPRAZOLE 40 MG TABLET PO SCH (17:22)
[2019-11-11] MEDS: FUROSEMIDE 10 MG/ML 4 ML VIAL IV SCH ×2 (18:26→22:56)
--- NOTE | 2019-11-11 19:31 | HP ---
HISTORY AND PHYSICAL DATE OF SERVICE: 11/11/2019 CHIEF COMPLAINT: Shortness of breath. HISTORY OF PRESENT ILLNESS: This 64-year-old gentleman with a past medical history of CAD, CHF, COPD, diabetes, GERD, hypertension, hyperlipidemia, history of liver disease, history of myocardial infarction, history of vascular disease, history of atrial fibrillation, history of cholecystectomy, CAD/stent being followed by Dr. Valentine in the outpatient setting was complaining of shortness of breath. The patient also had some amount of orthopnea as well as paroxysmal nocturnal dyspnea, also. The patient came to [facility]. Patient also has minimal leg swelling as well. Also the patient was found to be elevated D-dimer. Chest x-ray showed some perivascular enhancement and creatinine was found to be 2.31. D-dimer was elevated to 3.26, but V/Q scan showed low probability of pulmonary embolism. Patient admitted to the hospital for further evaluation and treatment. There is no history of fever, rigors or chills. No history of headache, loss of consciousness or seizures. PAST MEDICAL HISTORY: History of atrial ablation, CAD, CHF, COPD, diabetes type 2, hypertension, hyperlipidemia, history of liver disease, history of vascular disorder, history of atrial fibrillation, CAD/stent. MEDICATIONS: Home medications are: 1. Levemir 36 units subcu q.h.s. 2. Humalog a.c. t.i.d. 3. Singulair 10 mg q.h.s. 4. Pravachol 40 mg. 5. Eliquis 5 mg p.o. b.i.d. 6. Nitrostat 0.4 sublingual p.r.n. 7. Betamethasone 1 application daily. 8. Zyloprim 100 mg p.o. daily. 9. Coenzyme Q 100 mg p.o. daily. 10.Magnesium citrate 300 mg p.o. daily. 11.Claritin 10 mg p.o. daily. 12.Imdur 30 mg p.o. daily. 13.DuoNeb q.i.d. p.r.n. 14.Lasix 40 mg p.o. b.i.d. 15.Flonase 1 spray b.i.d. 16.Cardizem 90 mg p.o. b.i.d. 17.Vitamin D3 3000 with breakfast. 18.Aspirin 81 mg q.h.s. 19.Apresoline 100 mg p.o. t.i.d. 20.Vitamin B complex one capsule p.o. daily. 21.Protonix 40 mg p.o. b.i.d. 22.Lopressor 100 mg p.o. b.i.d. ALLERGIES: AMOXICILLIN, KEFLEX, CLINDAMYCIN, PENICILLIN, SULFA, TRIMETHOPRIM, AMLODIPINE, COREG. FAMILY HISTORY: History of diabetes mellitus. SOCIAL HISTORY: Previous history of smoking. No history of current smoking or alcohol intake. REVIEW OF SYSTEMS: ENT: No diminished vision, No diminished hearing CARDIOVASCULAR as mentioned earlier. RESPIRATORY: As mentioned earlier. GI no nausea, vomiting. no dysuria or hematuria. NERVOUS SYSTEM: No numbness or weakness. ALLERGY/IMMUNOLOGY: No asthma or hayfever. MUSCULOSKELETAL as mentioned earlier. HEMATOLOGY/ONCOLOGY: No history of anemia. ENDOCRINE: History of diabetes. No hypothyroidism. CONSTITUTIONAL: As mentioned earlier. DERMATOLOGY: Negative. RHEUMATOLOGY negative. PSYCHIATRY as mentioned earlier. PHYSICAL EXAMINATION: Alert and oriented x3. Pulse is 68. Blood pressure 158/83, respirations 16, temperature 98.3, pulse ox 98% on room air. HEENT: Conjunctivae normal. NECK: No JVD. CARDIOVASCULAR: S1, S2 muffled. RESPIRATORY: Breath sounds diminished in the bases. A few scattered rhonchi. A few crackles in the bases. ABDOMEN: Soft, obese, nontender. No mass palpable. LEGS minimal bilateral leg edema. NERVOUS SYSTEM: Higher functions as mentioned earlier. Moves all four limbs. No focal motor or sensory deficits. SKIN: as mentioned earlier. JOINTS no active deforming arthropathy. LABS: WBC 8.2, hemoglobin 12.7. D-dimer is 3.26 and creatinine is 2.31. ASSESSMENT: 1. Shortness of breath, possible congestive heart failure acute exacerbation with acute on chronic diastolic dysfunction with ejection fraction 50-60 percent. 2. Element of chronic obstructive pulmonary disease exacerbation. 3. History of atrial fibrillation paroxysmal. 4. History of coronary artery disease. 5. History of chronic obstructive pulmonary disease. 6. Diabetes mellitus type 2. 7. Gastroesophageal reflux disease. 8. Hypertension. 9. Hyperlipidemia. 10.History of chronic liver disease. 11.History of myocardial infarction. 12.History of prostate disorder. 13.History of tachy-chary syndrome with pacemaker. 14.History of peripheral neuropathy, bilateral. 15.History of stage 3 chronic kidney disease. 16.History of liver cirrhosis. 17.History of benign prostatic hypertrophy. 18.History of degenerative joint disease. 19.History of low back pain, degenerative joint disease. 20.History of asbestos exposure. 21.History of celiac disease. 22.History of dermatitis herpetiformis. 23.History of coronary artery disease/ stent. 24.Remote history of nicotine dependence. RECOMMENDATIONS AND DISCUSSION: This 64-year-old gentleman who presented with multiple complex medical issues, we will monitor the patient closely, continue the current medications, symptomatic treatment. Otherwise, I would recommend intravenous Lasix. Monitor fluid and electrolytes balance closely. Otherwise bronchodilators. Closely follow with Cardiology and Pulmonology. Resume the home medications. DVT prophylaxis. Prognosis guarded because of multiple complex medical issues. We will check labs. Discussed with the patient who understands and agrees. Further recommendations to follow. A copy of dictation being forwarded to Dr. Valentine who is the primary physician. MMODL / IJN: [id number] /
[2019-11-11 20:18] LABS: Glucose,Whole Blood 257 mg/dL (75-99)
[2019-11-11] MEDS: APIXABAN 5 MG TAB PO SCH (21:40)
[2019-11-11] MEDS: DILTIAZEM ORAL 30 MG TAB PO SCH (21:40)
[2019-11-11] MEDS: ASPIRIN 81 MG PO SCH (21:40)
[2019-11-11] MEDS: FLECAINIDE 50 MG TAB PO SCH (21:40)
[2019-11-11] MEDS: METOPROLOL TARTRATE 50 MG TAB PO SCH (21:40)
[2019-11-11] MEDS: MONTELUKAST 10 MG TAB PO SCH (21:40)
[2019-11-11] MEDS: FLUTICASONE 50MCG/SPRAY NASAL 16GM EA NOSTRIL SCH (21:41)
[2019-11-11] MEDS: INSULIN DETEMIR (LEVEMIR) 100 UNIT/ML SYR SQ SCH (21:41)
[2019-11-11] MEDS: IPRATROPIUM-ALBUTEROL 3 ML NEB INHALATION SCH (22:02)
[2019-11-12 07:00] LABS: Glucose,Whole Blood 142 mg/dL (75-99)
[2019-11-12] MEDS: IPRATROPIUM-ALBUTEROL 3 ML NEB INHALATION SCH ×3 (08:21→19:39)
[2019-11-12] MEDS: PANTOPRAZOLE 40 MG TABLET PO SCH ×2 (08:50→18:17)
[2019-11-12] MEDS: METOPROLOL TARTRATE 50 MG TAB PO SCH ×2 (08:50→21:11)
[2019-11-12] MEDS: ALLOPURINOL 100 MG TAB PO SCH (08:50)
[2019-11-12] MEDS: LORATADINE 10 MG TAB PO SCH (08:50)
[2019-11-12] MEDS: ISOSORBIDE MONONITRATE ER 30 MG TAB.ER.24H PO SCH (08:50)
[2019-11-12] MEDS: PRAVASTATIN SODIUM 40 MG TAB PO SCH (08:50)
[2019-11-12] MEDS: hydrALAZINE HCL 50 MG TAB PO SCH ×3 (08:50→21:13)
[2019-11-12] MEDS: APIXABAN 5 MG TAB PO SCH ×2 (08:50→21:11)
[2019-11-12] MEDS: MAGNESIUM OXIDE 400 MG TAB PO SCH (08:50)
[2019-11-12] MEDS: DILTIAZEM ORAL 30 MG TAB PO SCH ×2 (08:50→21:11)
[2019-11-12 08:51] LABS: Basophils # (A) 0.2 k/uL (0-0.2); Basophils % (A) 3 %; Eosinophils # (A) 0.3 k/uL (0-0.7); Eosinophils % (A) 4 %; HCT 40.8 % (39.0-53.0); HGB 13.5 gm/dL (13.0-17.5); Hypochromasia Slight; Lymphocytes # (A) 0.7 k/uL (1.0-4.8); Lymphocytes % (A) 8 %; MCH 30.2 pg (25.0-35.0); MCV 91.6 fL (80.0-100.0); Mean Platelet Volume 7.9; Monocytes # (A) 0.6 k/uL (0-1.0); Monocytes % (A) 7 %; Neutrophils # (A) 6.2 k/uL (1.3-7.7); Neutrophils % (A) 77 %; Platelet Count 383 k/uL (150-450); RBC 4.45 m/uL (4.30-5.90); RDW 14.6 % (11.5-15.5); WBC 8.1 k/uL (3.8-10.6)
[2019-11-12] MEDS: INSULIN ASPART (NovoLOG) 100 UNIT/ML VIAL SQ SCH ×4 (08:51→21:12)
[2019-11-12] MEDS: FUROSEMIDE 10 MG/ML 4 ML VIAL IV SCH ×2 (08:51→15:21)
[2019-11-12] MEDS: FLECAINIDE 50 MG TAB PO SCH ×2 (08:52→21:12)
[2019-11-12] MEDS: BETAMETHASONE DIPROPIONATE 0.05% CREAM 15 GM TUBE TOPICAL SCH (08:52)
[2019-11-12] MEDS: FLUTICASONE 50MCG/SPRAY NASAL 16GM EA NOSTRIL SCH ×2 (08:56→21:13)
[2019-11-12] MEDS ORDERED: NON FORMULARY DRUG (Ubidecarenone [Co Q-10] 100 MG) PO SCH (09:00)
[2019-11-12] MEDS ORDERED: NON FORMULARY DRUG (Vitamin B Complex [Vitamin B Complex] 1 CAP) PO SCH (09:00)
[2019-11-12 09:13] LABS: Calcium 9.6 mg/dL (8.4-10.2); Potassium 4.6 mmol/L (3.5-5.1)
--- NOTE | 2019-11-12 09:16 | P.PN ---
Subjective Progress Note Date: 11/12/19 today's evaluation of 11/12/2019 the patient is feeling well. No complaints. No shortness of breath. No chest pain. No cardiac arrhythmias noted. Cardiology has still to see the patient. Pulse ox on room air is order of 96- 98%. VQ scan was of a low probability and the patient is still onEliquis for long-term anticoagulation regarding his history of atrial fibrillation. No other significant events otherwise for now. Objective - Vital Signs Vital signs: Vital Signs Temp 98.1 F 11/12/19 06:16 Pulse 92 11/12/19 08:29 Resp 18 11/12/19 06:16 BP 141/76 11/12/19 06:16 Pulse Ox 94 L 11/12/19 06:16 Intake & Output 11/11/19 11/12/19 11/12/19 18:59 06:59 18:59 Intake Total 470 Balance 470 Weight 87.997 kg 88.7 kg Intake: Oral 470 Other: Voiding Method Toilet Toilet # Voids 1 4 - Exam General appearance: alert, in no apparent distress, calm and comfortable Head exam: Present: atraumatic, normocephalic, normal inspection Eye exam: Present: normal appearance, PERRL, EOMI. Absent: scleral icterus, conjunctival injection, periorbital swelling ENT exam: Present: normal exam, mucous membranes moist Neck exam: Present: normal inspection, full ROM. Absent: tenderness, meningismus, lymphadenopathy Respiratory exam: released sounds bilaterally especially in the right lung base. No wheezes. No rhonchi. No crackles. Cardiovascular Exam: Present: irregular rate, normal rhythm, normal heart sounds. Absent: systolic murmur, diastolic murmur, rubs, gallop, clicks GI/Abdominal exam: Present: soft, normal bowel sounds. Absent: distended, tenderness, guarding, rebound, rigid Extremities exam: Present: pedal edema (3+ pitting edema) Neurological exam: Present: alert, oriented X3, CN II-XII intact Psychiatric exam: Present: normal affect, normal mood - Labs CBC & Chem 7: 11/12/19 08:03 11/12/19 08:03 Labs: Abnormal Lab Results - Last 24 Hours (Table) 11/11/19 11/11/19 11/11/19 Range/Units 09:40 09:40 09:40 Hgb 12.7 L (13.0-17.5) gm/dL Lymphocytes # 0.7 L (1.0-4.8) k/uL D-Dimer 3.26 H (<0.60) mg/L FEU Chloride (98-107) mmol/L Carbon Dioxide 31 H (22-30) mmol/L BUN 46 H (9-20) mg/dL Creatinine 2.31 H (0.66-1.25) mg/dL Glucose 265 H (74-99) mg/dL POC Glucose (mg/dL) (75-99) mg/dL Total Protein 6.0 L (6.3-8.2) g/dL Albumin 3.3 L (3.5-5.0) g/dL 11/11/19 11/11/19 11/12/19 Range/Units 12:34 20:10 06:58 Hgb (13.0-17.5) gm/dL Lymphocytes # (1.0-4.8) k/uL D-Dimer (<0.60) mg/L FEU Chloride (98-107) mmol/L Carbon Dioxide (22-30) mmol/L BUN (9-20) mg/dL Creatinine (0.66-1.25) mg/dL Glucose (74-99) mg/dL POC Glucose (mg/dL) 197 H 257 H 142 H (75-99) mg/dL Total Protein (6.3-8.2) g/dL Albumin (3.5-5.0) g/dL 11/12/19 11/12/19 Range/Units 08:03 08:03 Hgb (13.0-17.5) gm/dL Lymphocytes # 0.7 L (1.0-4.8) k/uL D-Dimer (<0.60) mg/L FEU Chloride 97 L (98-107) mmol/L Carbon Dioxide 34 H (22-30) mmol/L BUN 40 H (9-20) mg/dL Creatinine 2.14 H (0.66-1.25) mg/dL Glucose 132 H (74-99) mg/dL POC Glucose (mg/dL) (75-99) mg/dL Total Protein (6.3-8.2) g/dL Albumin (3.5-5.0) g/dL Assessment and Plan Plan: 1 episodic chest pain/shortness of breath, exact etiology is not clear. I highly doubt the possibility of pulmonary embolism specially the patient has been on long-term and to coagulation with Eliquis and has been compliant to his medication treatment. The elevation in d-dimer is quite nonspecific. Pulse ox is currently at 98% on room air. 2 chronic dyspnea 3 coronary artery disease with previous coronary intervention and stenting 4 chronic kidney disease, stage IV secondary to diabetic nephropathy 5 COPD which is currently inactive in stable 6 chronic right hemidiaphragmatic elevation/paralysis 7 paroxysmal atrial fibrillation current rhythm is paced and the patient is demented on long-term medical condition with Eliquis 8 history of tachybradycardia syndrome past pacemaker insertion 9 hypertensive heart disease with LV concentric hypertrophy 10diabetes mellitus 11 hypertension 12 hyperlipidemia 13 osteoarthritis with previous history of herniated disc involving lower back plan Pulmonary embolism is highly doubtful.VQ scan was of a low probability. Continue Eliquis Continue Eliquis dosing to be adjusted per nephrology Cardiology consultation. Consider pacemaker interrogation We'll continue to follow
--- NOTE | 2019-11-12 11:53 | P.CRDCN ---
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 He follows in the office with Dr. Anjali jordan. We have been asked to see in consultation for shortness of breath. He states he came to the ED yesterday morning after having increased shortness of breath, PND and palpitations all night Monday night. He states he could not get comfortable or get to sleep. He was feeling a full sensation in his chest with some intermittent palpitations that radiated into his neck. He states "I feel like I was in a-fib." He tried to lay on the couch so he could get comfortable but he was unable to get any sleep. On arrival he was started on IV lasix. He is seen and examined up ambulating in the room and up and down the halls. He states he slept solid through the night with no further shortness of breath or palpitations. DIAGNOSTICS EKG reveals atrial paced, rightward axis and lateral ST depression. Consistent with previous EKG's. Chest xray chronic basilar atelectasis and trace left pleural effusion. VQ low probability for PE. Laboratory reviewed, WBC 8.1, hgb 13.5, plt 383, d-dimer 3.26, cardiac enzymes negative x1, NTproBNP 1970, sodium 141, potassoim 4.6, creatinine 2.14. Current cardiac medications include Lopressor 100 mg twice a day, hydralazine 100 mg 3 times a day, aspirin 81 mg daily, diltiazem 90 mg twice a day, Lasix 40 mg twice a day, Imdur 30 mg daily, Eliquis 5 mg twice a day, pravastatin 40 mg daily and flecainide 50 mg twice a day. Most recent echocardiogram obtained May 2019 reveals preserved LV systolic function with ejection fraction 55-60%, severely dilated left atrium, mild mitral regurgitation, moderate tricuspid regurgitation and moderate pulmonary hypertension with an RVSP of 50 mmHg. REVIEW OF SYSTEMS At the time of my exam: CONSTITUTIONAL: Denies fever or chills. CARDIOVASCULAR: Denies chest pain, shortness of breath, orthopnea, PND or palpitations. RESPIRATORY: Denies cough. GASTROINTESTINAL: Denies abdominal pain, diarrhea, constipation, nausea or vomiting. MUSCULOSKELETAL: Denies myalgias. NEUROLOGIC: Denies numbness, tingling or weakness. ENDOCRINE: Denies fatigue, weight change, polydipsia or polyurina. GENITOURINARY: Denies burning, hematuria or urgency with micturation. HEMATOLOGIC: Denies history of anemia or bleeding. PHYSICAL EXAMINATION Blood pressure 141/76 heart rate 92 afebrile and maintaining oxygen saturation on room air. CONSTITUTIONAL: No apparent distress. HEENT: Head is normocephalic. Pupils are equal, round. Sclerae anicteric. Mucous membranes of the mouth are moist. No JVD. No carotid bruit. CHEST EXAMINATION: Lungs are clear to auscultation. No chest wall tenderness is noted on palpation or with deep breathing. Diminished bilaterally. HEART EXAMINATION: Regular rate and rhythm. S1, S2 heard. Systolic ejection murmur at the left sternal border, no gallops or rub. ABDOMEN: Soft, nontender. Positive bowel sounds. EXTREMITIES: 2+ peripheral pulses, no lower extremity edema and no calf tenderness. NEUROLOGIC EXAMINATION: Patient is awake, alert and oriented x3. ASSESSMENT Acute on chronic diastolic heart failure, mild exacerbation. Improved with 2 does of IV lasix initiated per primary care team. paroxysmal atrial fibrillation on long-term anticoagulation History of coronary artery disease status post PCI Sick sinus syndrome status post permanent pacemaker implantation hypertension Dyslipidemia Diabetes mellitus COPD Chronic renal failure Pulmonary hypertension, RVSP 50 mmHg PLAN Interrogate pacemaker. Transition to oral diuretics. Stable for discharge home, follow up with Dr. Morgan in 2 weeks. Thank you kindly for this consultation. Nurse Practitioner note has been reviewed, I agree with a documented findings and plan of care. Patient was seen and examined. Past Medical History Past Medical History: Atrial Fibrillation, Coronary Artery Disease (CAD), Chest Pain / Angina, Heart Failure, COPD, Diabetes Mellitus, GERD/Reflux, Hyperl ipidemia, Hypertension, Liver Disease, Myocardial Infarction ([place]), Prostate Disorder, Renal Disease, Skin Disorder, Vascular Disorder Additional Past Medical History / Comment(s): history ofAfib with RVR, tachybrady syndrome with pacemaker, IDDM type II, neuropathy bilateral feet, stage III chronic kidney disease, chronic CHF, R pleural effusion, liver cirrhosis, BPH, DJD, herniated discs low back, chronic low back pain, varicose veins , anemia with hx of iron infusions., past asbestos exposure, celiac disease, dermatitis herpetiformis. Last Myocardial Infarction Date:: 06/2018 History of Any Multi-Drug Resistant Organisms: None Reported Past Surgical History: Ablation, Cholecystectomy, Heart Catheterization With Stent, Pacemaker, Tonsillectomy Additional Past Surgical History / Comment(s): PCI with STENTS x 3, bilateral cataracts removed with lens implants, colonoscopy, [employer] pacemaker Past Anesthesia/Blood Transfusion Reactions: No Reported Reaction Date of Last Stent Placement:: 2017 Type of Cardiac Device: Permanent Pacemaker Device Placement Date:: 02/02/19 Smoking Status: Former smoker - Past Family History Mother Family Medical History: Diabetes Mellitus Father Family Medical History: Myocardial Infarction ([place]) Additional Family Medical History / Comment(s): Father had a [place] in his 70s. Brother(s) Family Medical History: Myocardial Infarction ([place]) Additional Family Medical History / Comment(s): Brother had a [place] in his 50s. Medications and Allergies Home Medications Medication Instructions Recorded Confirmed Type Insulin Detemir (Levemir) [Levemir] 36 unit SQ HS 08/18/14 11/11/19 History Fluticasone Nasal Ashley [Flonase 1 spray EA NOSTRIL BID 05/12/16 11/11/19 History Nasal Ashley] hydrALAZINE HCL [Apresoline] 100 mg PO TID #90 tab 06/07/18 11/11/19 Rx Nitroglycerin Sl Tabs [Nitrostat] 0.4 mg SUBLINGUAL Q5M PRN #25 tab 06/28/18 11/11/19 Rx Cholecalciferol [Vitamin D3 (25 3,000 unit PO PC-BRKFST 08/26/18 11/11/19 History Mcg = 1000 Iu)] Isosorbide Mononitrate ER [Imdur] 30 mg PO DAILY 01/16/19 11/11/19 History Pantoprazole [Protonix] 40 mg PO BID 01/16/19 11/11/19 History Montelukast [Singulair] 10 mg PO HS 02/12/19 11/11/19 History Loratadine [Claritin] 10 mg PO DAILY 03/28/19 11/11/19 History Metoprolol Tartrate [Lopressor] 100 mg PO BID 03/28/19 11/11/19 History Apixaban [Eliquis] 5 mg PO BID #60 tab 04/03/19 11/11/19 Rx Furosemide [Lasix] 40 mg PO BID@0900,1600 #60 tab 04/10/19 11/11/19 Rx Ipratropium-Albuterol Nebulize 3 ml INHALATION RT-QID PRN 06/12/19 11/11/19 History [Duoneb 0.5 mg-3 mg/3 ml Soln] Allopurinol [Zyloprim] 100 mg PO DAILY 06/24/19 11/11/19 History Diltiazem Oral [Cardizem*] 90 mg PO BID 06/24/19 11/11/19 History Vitamin B Complex 1 cap PO DAILY 06/24/19 11/11/19 History Aspirin [Adult Low Dose Aspirin EC] 81 mg PO HS 08/01/19 11/11/19 History Magnesium Citrate 300 mg PO DAILY 08/01/19 11/11/19 History Ubidecarenone [Co Q-10] 100 mg PO DAILY 08/01/19 11/11/19 History Betamethasone Dipropionate 1 applic TOPICAL DAILY 11/11/19 11/11/19 History [Betamethasone Diprop Augm Gel 0.05%] Flecainide [Tambocor] 50 mg PO Q12HR 11/11/19 11/11/19 History INSULIN LISPRO (humaLOG) [humaLOG] See Protocol SQ AC-TID 11/11/19 11/11/19 History Pravastatin Sodium [Pravachol] 40 mg PO DAILY 11/11/19 11/11/19 History Allergies Allergy/AdvReac Type Severity Reaction Status Date / Time amoxicillin Allergy Anaphylaxis Verified 11/11/19 10:45 cephalexin monohydrate Allergy Rash/Hives Verified 11/11/19 10:45 [From Keflex] clindamycin Allergy Rash/Hives Verified 11/11/19 10:45 Penicillins Allergy Rash/Hives Verified 11/11/19 10:45 Sulfa (Sulfonamide Allergy Anaphylaxis Verified 11/11/19 10:45 Antibiotics) sulfamethoxazole Allergy Anaphylaxis Verified 11/11/19 10:45 [From Bactrim] trimethoprim [From Bactrim] Allergy Anaphylaxis Verified 11/11/19 10:45 amlodipine AdvReac Swelling Verified 11/11/19 10:45 carvedilol AdvReac "MAKES ME Verified 11/11/19 10:45 JERILYN" Physical Exam Vitals: Vital Signs Temp Pulse Pulse Resp BP BP Pulse Ox 11/12/19 08:29 92 11/12/19 08:20 92 11/12/19 06:16 98.1 F 63 18 141/76 94 L 11/11/19 22:19 90 11/11/19 22:03 94 98 11/11/19 20:38 97.4 F L 74 20 169/77 96 11/11/19 20:25 97.4 F L 74 20 169/77 96 11/11/19 19:40 97.4 F L 74 24 169/77 96 11/11/19 16:00 16 11/11/19 14:20 98.3 F 68 16 158/83 96 11/11/19 12:19 20 151/83 11/11/19 12:00 16 141/72 98 11/11/19 11:00 16 136/71 98 11/11/19 10:00 16 136/76 98 11/11/19 09:06 17 98 11/11/19 09:00 18 Intake and Output 11/11/19 11/12/19 11/12/19 22:59 06:59 14:59 Intake Total 290 Balance 290 Intake: Oral 290 Other: Voiding Method Toilet # Voids 2 4 Weight 88.7 kg Results 11/12/19 08:03 11/12/19 08:03 Cardiac Enzymes 11/11/19 11/11/19 Range/Units 09:40 09:40 AST 36 (17-59) U/L Troponin I 0.013 (0.000-0.034) ng/mL Coagulation 11/11/19 Range/Units 09:40 PT 10.7 (9.0-12.0) sec APTT 28.4 (22.0-30.0) sec CBC 11/11/19 11/12/19 Range/Units 09:40 08:03 WBC 8.8 8.1 (3.8-10.6) k/uL RBC 4.35 4.45 (4.30-5.90) m/uL Hgb 12.7 L 13.5 (13.0-17.5) gm/dL Hct 39.1 40.8 (39.0-53.0) % Plt Count 334 383 (150-450) k/uL Comprehensive Metabolic Panel 11/11/19 Range/Units 09:40 Sodium 138 (137-145) mmol/L Potassium 4.0 (3.5-5.1) mmol/L Chloride 98 (98-107) mmol/L Carbon Dioxide 31 H (22-30) mmol/L BUN 46 H (9-20) mg/dL Creatinine 2.31 H (0.66-1.25) mg/dL Glucose 265 H (74-99) mg/dL Calcium 8.7 (8.4-10.2) mg/dL AST 36 (17-59) U/L ALT 34 (4-49) U/L Alkaline Phosphatase 115 (38-126) U/L Total Protein 6.0 L (6.3-8.2) g/dL Albumin 3.3 L (3.5-5.0) g/dL Current Medications Generic Name Dose Route Start Last Admin Trade Name Freq PRN Reason Stop Dose Admin Acetaminophen 500 mg 11/11/19 17:19 Tylenol Tab PO Q6HR PRN Fever and/ or Pain Hydrocodone Bitart/Acetaminophen 1 each 11/11/19 17:19 [place] 5-325 PO Q6HR PRN Pain Albuterol/Ipratropium 3 ml 11/11/19 13:44 Duoneb 0.5 Mg-3 Mg/3 Ml Soln INHALATION RT-QID PRN Shortness Of Breath Albuterol/Ipratropium 3 ml 11/11/19 20:00 11/12/19 08:21 Duoneb 0.5 Mg-3 Mg/3 Ml Soln INHALATION 3 ml RT-TID [facility]ONZO Administration Allopurinol 100 mg 11/12/19 09:00 Zyloprim PO DAILY [facility] Alprazolam 0.25 mg 11/11/19 17:19 Xanax PO TID PRN Anxiety Apixaban 5 mg 11/11/19 21:00 11/11/19 21:40 Eliquis PO 5 mg BID [facility]ON[facility] Administration Aspirin 81 mg 11/11/19 21:00 11/11/19 21:40 Aspirin PO 81 mg HS [facility] Administration Betamethasone Dipropionate 1 applic 11/12/19 09:00 Diprolene Af TOPICAL DAILY [facility] Diltiazem HCl 90 mg 11/11/19 21:00 11/11/19 21:40 Cardizem Oral PO 90 mg BID [facility] Administration Flecainide Acetate 50 mg 11/11/19 21:00 11/11/19 21:40 Tambocor PO 50 mg Q12HR [facility] Administration Fluticasone Propionate 1 spray 11/11/19 21:00 11/11/19 21:41 Flonase Nasal Ashley EA NOSTRIL 1 spray BID [facility] Administration Furosemide 40 mg 11/11/19 17:30 11/11/19 22:56 Lasix IV Not Given Q8HR [facility] Hydralazine HCl 100 mg 11/11/19 16:00 11/11/19 21:40 Apresoline PO 100 mg TID [facility] Administration Insulin Aspart 0 unit 11/11/19 12:30 11/11/19 21:41 Novolog SQ 4 unit ACHS [facility] Administration Protocol Insulin Detemir 36 unit 11/11/19 21:00 11/11/19 21:41 Levemir SQ 36 unit HS [facility] Administration Isosorbide Mononitrate 30 mg 11/12/19 09:00 Imdur PO DAILY [facility] Loratadine 10 mg 11/12/19 09:00 Claritin PO DAILY [facility] Magnesium Oxide 400 mg 11/12/19 09:00 Mag-Ox PO DAILY [facility] Metoprolol Tartrate 100 mg 11/11/19 21:00 11/11/19 21:40 Lopressor PO 100 mg BID [facility] Administration Montelukast Sodium 10 mg 11/11/19 21:00 11/11/19 21:40 Singulair PO 10 mg HS [facility] Administration Nitroglycerin 0.4 mg 11/11/19 17:17 Nitrostat SUBLINGUAL Q5M PRN Chest Pain Pantoprazole Sodium 40 mg 11/11/19 17:30 11/11/19 17:22 Protonix PO Not Given AC-BID [facility] Pravastatin Sodium 40 mg 11/12/19 09:00 Pravachol PO DAILY [facility] Temazepam 15 mg 11/11/19 17:19 Restoril PO HS PRN Insomnia Intake and Output 11/11/19 11/12/19 11/12/19 22:59 06:59 14:59 Intake Total 290 Balance 290 Intake: Oral 290 Other: Voiding Method Toilet # Voids 2 4 Weight 88.7 kg 11/12/19 08:03 11/11/19 09:40
[2019-11-12 12:35] LABS: Glucose,Whole Blood 222 mg/dL (75-99)
--- NOTE | 2019-11-12 15:09 | P.PN ---
Progress Note - Text Device interrogation reviewed. No events yesterday. On average is is having AF/AT 15.6% of the time. No correlated with his symptoms yesterday. Stable for discharge.
[2019-11-12] MEDS ORDERED: FUROSEMIDE 40 MG TAB PO SCH (16:00)
[2019-11-12 16:57] LABS: Glucose,Whole Blood 207 mg/dL (75-99)
--- NOTE | 2019-11-12 17:01 | PN ---
PROGRESS NOTE DATE OF SERVICE: 11/12/2019 This 64 -year-old gentleman who was admitted with shortness of breath had acute features of CHF. At this time the patient had possible acute on chronic diastolic dysfunction. The patient is also on IV diuretics with some improvement of symptoms. Patient being closely monitored by multiple consultants including Cardiology, and as well as Pulmonology. Creatinine is 2.14. Patient has seen Dr. Champagne previously in the outpatient setting, according to him. PAST MEDICAL HISTORY: Reviewed. REVIEW OF SYSTEMS: Cardiovascular system: As mentioned earlier. Respiratory: As mentioned earlier. GI: As mentioned earlier. : As mentioned earlier. NERVOUS SYSTEM: No numbness or weakness. CURRENT MEDICATIONS: Reviewed and include: 1. Tylenol p.r.n. 2. Oxbow 5 mg q.6h p.r.n. 3. DuoNeb q.i.d. and p.r.n. 4. Zyloprim 100 mg. 5. Xanax 0.5 t.i.d. 6. Eliquis 5 mg p.o. b.i.d. 7. Aspirin 81 mg daily. 8. Betamethasone. 9. Cardizem 90 mg p.o. b.i.d. 10.Tambocor. 11.Flonase. 12.Lasix 40 mg IV t.i.d. 13.Apresoline 100 mg p.o. t.i.d. 14.NovoLog. 15.Levemir 36 daily. 16.Claritin. 17.Magnesium oxide. 19.Protonix. 20.Pravachol. 21.Restoril. PHYSICAL EXAM: Patient is alert and oriented times three. Pulse 72, blood pressure 142/77. Respiration 16, temperature 97.7, pulse ox 98% on room air. HEENT is conjunctivae normal. Neck: No JVD. CARDIOVASCULAR: S1, S2 muffled. Respirations: Breath sounds diminished in the bases. A few scattered rhonchi and crackles. ABDOMEN: Soft, nontender. LEGS are no edema. No swelling. CENTRAL NERVOUS SYSTEM: No focal deficits. LABORATORY DATA: CBC within normal limits. Creatinine is 2.14. ASSESSMENT: 1. Shortness of breath, possible congestive heart failure acute exacerbation with acute on chronic diastolic dysfunction, ejection fraction 50-60 percent. 2. Element of chronic obstructive pulmonary disease acute exacerbation. 3. History of atrial fibrillation paroxysmal. 4. History of coronary artery disease. 5. History of chronic obstructive pulmonary disease. 6. Diabetes type 2. 7. Gastroesophageal reflux disease. 8. Hypertension. 9. Hyperlipidemia. 10.History of chronic liver disease. 11.History of myocardial infarction. 12.History of prostate cancer. 13.History of tachy-chary syndrome with pacemaker. 14.History of peripheral neuropathy, bilateral. 15.History of stage III chronic kidney disease. 16.History of liver cirrhosis. 17.History of benign prostatic hypertrophy. 18.History of degenerative joint disease. 19.History of chronic low back pain/ degenerative joint disease. 20.History of asbestos exposure. 21.History of celiac disease. 22.History of dermatitis herpetiformis. 23.History of coronary artery disease stent. 24.Remote history of nicotine dependence. RECOMMENDATIONS AND DISCUSSION: Recommend to continue current medications, continue to monitoring, management and symptomatic treatment. Otherwise, at this time, I recommend continue with IV diuretics for now. Monitor fluid and electrolytes balance closely. Monitor creatinine closely. Nephrology evaluation. Closely follow with multiple consultants. Guarded prognosis because of multiple complex medical issues. Further recommendations to follow. MMODL / IJN: [id number] / MTDD
[2019-11-12 20:57] LABS: Glucose,Whole Blood 238 mg/dL (75-99)
[2019-11-12] MEDS: MONTELUKAST 10 MG TAB PO SCH (21:12)
[2019-11-12] MEDS: ASPIRIN 81 MG PO SCH (21:12)
[2019-11-12] MEDS: INSULIN DETEMIR (LEVEMIR) 100 UNIT/ML SYR SQ SCH (21:12)
[2019-11-13] MEDS: FUROSEMIDE 10 MG/ML 4 ML VIAL IV SCH ×2 (00:03→08:15)
[2019-11-13 07:29] LABS: Glucose,Whole Blood 143 mg/dL (75-99)
[2019-11-13] MEDS: IPRATROPIUM-ALBUTEROL 3 ML NEB INHALATION SCH ×3 (07:33→19:52)
[2019-11-13] MEDS: APIXABAN 5 MG TAB PO SCH ×2 (08:15→21:17)
[2019-11-13] MEDS: MAGNESIUM OXIDE 400 MG TAB PO SCH (08:15)
[2019-11-13] MEDS: INSULIN ASPART (NovoLOG) 100 UNIT/ML VIAL SQ SCH ×4 (08:15→21:18)
[2019-11-13] MEDS: DILTIAZEM ORAL 30 MG TAB PO SCH ×2 (08:15→21:16)
[2019-11-13] MEDS: PRAVASTATIN SODIUM 40 MG TAB PO SCH (08:15)
[2019-11-13] MEDS: LORATADINE 10 MG TAB PO SCH (08:15)
[2019-11-13] MEDS: ISOSORBIDE MONONITRATE ER 30 MG TAB.ER.24H PO SCH (08:15)
[2019-11-13] MEDS: ALLOPURINOL 100 MG TAB PO SCH (08:15)
[2019-11-13] MEDS: METOPROLOL TARTRATE 50 MG TAB PO SCH ×2 (08:15→21:16)
[2019-11-13] MEDS: PANTOPRAZOLE 40 MG TABLET PO SCH ×2 (08:15→17:10)
[2019-11-13] MEDS: hydrALAZINE HCL 50 MG TAB PO SCH ×3 (08:15→21:16)
[2019-11-13] MEDS: BETAMETHASONE DIPROPIONATE 0.05% CREAM 15 GM TUBE TOPICAL SCH (08:17)
--- NOTE | 2019-11-13 08:25 | XR ---
EXAMINATION TYPE: XR chest 2V DATE OF EXAM: 11/13/2019 COMPARISON: Prior chest x-ray 11/11/2019 HISTORY: Congestive heart failure TECHNIQUE: Frontal and lateral views of the chest are obtained. FINDINGS: Probable subsegmental basilar atelectatic changes are noted. On the right, there is some i mprovement in aeration at the left lung base. Right hemidiaphragm remains elevated. Heart size is sta ble. Pacemaker is unchanged. No evident pneumothorax. IMPRESSION: There is some improvement in aeration.
[2019-11-13] MEDS: FLUTICASONE 50MCG/SPRAY NASAL 16GM EA NOSTRIL SCH ×2 (08:27→21:19)
[2019-11-13] MEDS: FLECAINIDE 50 MG TAB PO SCH ×2 (08:30→21:17)
[2019-11-13 10:05] LABS: Basophils # (A) 0.2 k/uL (0-0.2); Basophils % (A) 2 %; Eosinophils # (A) 0.3 k/uL (0-0.7); Eosinophils % (A) 3 %; HCT 41.7 % (39.0-53.0); Lymphocytes # (A) 0.6 k/uL (1.0-4.8); Lymphocytes % (A) 6 %; MCH 28.7 pg (25.0-35.0); MCHC 31.3 g/dL (31.0-37.0); MCV 91.9 fL (80.0-100.0); Mean Platelet Volume 7.9; Monocytes # (A) 0.6 k/uL (0-1.0); Monocytes % (A) 6 %; Neutrophils % (A) 81 %; Platelet Count 351 k/uL (150-450); RBC 4.54 m/uL (4.30-5.90); RDW 14.6 % (11.5-15.5); WBC 9.8 k/uL (3.8-10.6)
[2019-11-13 10:10] LABS: Calcium 9.5 mg/dL (8.4-10.2); Potassium 3.9 mmol/L (3.5-5.1)
--- NOTE | 2019-11-13 10:14 | P.PN ---
Subjective Progress Note Date: 11/13/19 On 11/13/2019 the patient is feeling well. Walking in the hallway. No respiratory distress. Chest x-ray shows improvement in aeration. No cough sputum production chest answer wheezing. His pacemaker was interrogated and it showed 15% A. fib/atrial tachycardia. This was not correlating with the sympt oms. No swelling lower extremities pain no fever. No chills. No angina. No other complaints otherwise. Blood work is unchanged and there are no acute abnormalities in his blood work. Objective - Vital Signs Vital signs: Vital Signs Temp 97.5 F L 11/13/19 05:47 Pulse 86 11/13/19 07:43 Resp 16 11/13/19 08:00 BP 141/76 11/13/19 05:47 Pulse Ox 93 L 11/13/19 05:47 Intake & Output 11/12/19 11/13/19 11/13/19 18:59 06:59 18:59 Intake Total 240 Balance 240 Intake: Oral 240 Other: Voiding Method Toilet # Voids 3 2 - Exam General appearance: alert, in no apparent distress, calm and comfortable Head exam: Present: atraumatic, normocephalic, normal inspection Eye exam: Present: normal appearance, PERRL, EOMI. Absent: scleral icterus, conjunctival injection, periorbital swelling ENT exam: Present: normal exam, mucous membranes moist Neck exam: Present: normal inspection, full ROM. Absent: tenderness, meningismus, lymphadenopathy Respiratory exam: released sounds bilaterally especially in the right lung base. No wheezes. No rhonchi. No crackles. Cardiovascular Exam: Present: irregular rate, normal rhythm, normal heart sounds. Absent: systolic murmur, diastolic murmur, rubs, gallop, clicks GI/Abdominal exam: Present: soft, normal bowel sounds. Absent: distended, tenderness, guarding, rebound, rigid Extremities exam: Present: pedal edema (3+ pitting edema) Neurological exam: Present: alert, oriented X3, CN II-XII intact Psychiatric exam: Present: normal affect, normal mood - Labs CBC & Chem 7: 11/13/19 09:24 11/13/19 09:24 Labs: Abnormal Lab Results - Last 24 Hours (Table) 11/12/19 11/12/19 11/12/19 Range/Units 12:32 16:55 20:41 Neutrophils # (1.3-7.7) k/uL Lymphocytes # (1.0-4.8) k/uL BUN (9-20) mg/dL Creatinine (0.66-1.25) mg/dL Glucose (74-99) mg/dL POC Glucose (mg/dL) 222 H 207 H 238 H (75-99) mg/dL 11/13/19 11/13/19 11/13/19 Range/Units 07:05 09:24 09:24 Neutrophils # 8.0 H (1.3-7.7) k/uL Lymphocytes # 0.6 L (1.0-4.8) k/uL BUN 41 H (9-20) mg/dL Creatinine 2.36 H (0.66-1.25) mg/dL Glucose 253 H (74-99) mg/dL POC Glucose (mg/dL) 143 H (75-99) mg/dL Assessment and Plan Plan: 1 episodic chest pain/shortness of breath, exact etiology is not clear. I highly doubt the possibility of pulmonary embolism specially the patient has been on long-term and to coagulation with Eliquis and has been compliant to his medication treatment. The elevation in d-dimer is quite nonspecific. Pulse ox is currently at 98% on room air. 2 chronic dyspnea 3 coronary artery disease with previous coronary intervention and stenting 4 chronic kidney disease, stage IV secondary to diabetic nephropathy 5 COPD which is currently inactive in stable 6 chronic right hemidiaphragmatic elevation/paralysis 7 paroxysmal atrial fibrillation current rhythm is paced and the patient is demented on long-term medical condition with Eliquis 8 history of tachybradycardia syndrome past pacemaker insertion 9 hypertensive heart disease with LV concentric hypertrophy 10diabetes mellitus 11 hypertension 12 hyperlipidemia 13 osteoarthritis with previous history of herniated disc involving lower back plan Pulmonary embolism is highly doubtful.VQ scan was of a low probability. Continue Eliquis Continue Eliquis dosing to be adjusted per nephrology Cardiology consultation. pacemaker interrogation was performed and it showed 15% A. fib/flutter. This was not correlating with the patient's symptoms. We'll continue to follow. The patient can be discharged home from the pulmonary perspective. He needs a rescue inhaler/Ventolin to be used on an as-needed basis.
--- NOTE | 2019-11-13 11:37 | P.NPCON ---
History of Present Illness - Reason for Consult chronic renal failure - History of Present Illness Reason for consultation: Acute kidney injury on chronic kidney disease History of present illness: Patient is a 64-year-old male seen in renal consultation for chronic kidney disease. Patient has chronic kidney disease stage III with baseline creatinine near 2. Renal function has been fairly stable this admission. Creatinine 2.36 today. Patient presented to the hospital due to dyspnea. He is currently maintained on IV Lasix 40 mg 3 times daily. Urine output is good. No hematuria or dysuria. No fever. No cough. Hemodynamically stable. Oral intake is good. No nausea vomiting or diarrhea. Patient states he does monitor his weight closely at home and has been stable. He denies any lower extremity edema. Patient has history of A. fib as well as COPD in addition to CHF. No dizziness or syncopal episodes. Vital signs are stable. General: The patient appeared well nourished and normally developed. HEENT: Head exam is unremarkable. Neck is without jugular venous distension. LUNGS: Lungs are clear to auscultation and percussion. Breath sounds decreased. HEART: Rate and Rhythm are regular. First and second heart sounds normal. No murmurs, rubs or gallops. ABDOMEN: Abdominal exam reveals normal bowel sounds. Non-tender and non- distended. No evidence of peritonitis. EXTREMITITES: No clubbing, cyanosis, or edema. Past Medical History Past Medical History: Atrial Fibrillation, Coronary Artery Disease (CAD), Chest Pain / Angina, Heart Failure, COPD, Diabetes Mellitus, GERD/Reflux, Hyperlipidemia, Hypertension, Liver Disease, Myocardial Infarction (CO), Prostate Disorder, Renal Disease, Skin Disorder, Vascular Disorder Additional Past Medical History / Comment(s): history ofAfib with RVR, tachybrady syndrome with pacemaker, IDDM type II, neuropathy bilateral feet, stage III chronic kidney disease, chronic CHF, R pleural effusion, liver cirrhosis, BPH, DJD, herniated discs low back, chronic low back pain, varicose veins , anemia with hx of iron infusions., past asbestos exposure, celiac disease, dermatitis herpetiformis. Last Myocardial Infarction Date:: 06/2018 History of Any Multi-Drug Resistant Organisms: None Reported Past Surgical History: Ablation, Cholecystectomy, Heart Catheterization With Stent, Pacemaker, Tonsillectomy Additional Past Surgical History / Comment(s): PCI with STENTS x 3, bilateral cataracts removed with lens implants, colonoscopy, [employer] pacemaker Past Anesthesia/Blood Transfusion Reactions: No Reported Reaction Date of Last Stent Placement:: 2017 Type of Cardiac Device: Permanent Pacemaker Device Placement Date:: 02/02/19 Smoking Status: Former smoker - Past Family History Mother Family Medical History: Diabetes Mellitus Father Family Medical History: Myocardial Infarction (CO) Additional Family Medical History / Comment(s): Father had a CO in his 70s. Brother(s) Family Medical History: Myocardial Infarction (CO) Additional Family Medical History / Comment(s): Brother had a CO in his 50s. Medications and Allergies Home Medications Medication Instructions Recorded Confirmed Type Insulin Detemir (Levemir) [Levemir] 36 unit SQ HS 08/18/14 11/11/19 History Fluticasone Nasal [place] [Flonase 1 spray EA NOSTRIL BID 05/12/16 11/11/19 History Nasal [place]] hydrALAZINE HCL [Apresoline] 100 mg PO TID #90 tab 06/07/18 11/11/19 Rx Nitroglycerin Sl Tabs [Nitrostat] 0.4 mg SUBLINGUAL Q5M PRN #25 tab 06/28/18 11/11/19 Rx Cholecalciferol [Vitamin D3 (25 3,000 unit PO PC-BRKFST 08/26/18 11/11/19 History Mcg = 1000 Iu)] Isosorbide Mononitrate ER [Imdur] 30 mg PO DAILY 01/16/19 11/11/19 History Pantoprazole [Protonix] 40 mg PO BID 01/16/19 11/11/19 History Montelukast [Singulair] 10 mg PO HS 02/12/19 11/11/19 History Loratadine [Claritin] 10 mg PO DAILY 03/28/19 11/11/19 History Metoprolol Tartrate [Lopressor] 100 mg PO BID 03/28/19 11/11/19 History Apixaban [Eliquis] 5 mg PO BID #60 tab 04/03/19 11/11/19 Rx Furosemide [Lasix] 40 mg PO BID@0900,1600 #60 tab 04/10/19 11/11/19 Rx Ipratropium-Albuterol Nebulize 3 ml INHALATION RT-QID PRN 06/12/19 11/11/19 History [Duoneb 0.5 mg-3 mg/3 ml Soln] Allopurinol [Zyloprim] 100 mg PO DAILY 06/24/19 11/11/19 History Diltiazem Oral [Cardizem*] 90 mg PO BID 06/24/19 11/11/19 History Vitamin B Complex 1 cap PO DAILY 06/24/19 11/11/19 History Aspirin [Adult Low Dose Aspirin EC] 81 mg PO HS 08/01/19 11/11/19 History Magnesium Citrate 300 mg PO DAILY 08/01/19 11/11/19 History Ubidecarenone [Co Q-10] 100 mg PO DAILY 08/01/19 11/11/19 History Betamethasone Dipropionate 1 applic TOPICAL DAILY 11/11/19 11/11/19 History [Betamethasone Diprop Augm Gel 0.05%] Flecainide [Tambocor] 50 mg PO Q12HR 11/11/19 11/11/19 History INSULIN LISPRO (humaLOG) [humaLOG] See Protocol SQ AC-TID 11/11/19 11/11/19 History Pravastatin Sodium [Pravachol] 40 mg PO DAILY 11/11/19 11/11/19 History Allergies Allergy/AdvReac Type Severity Reaction Status Date / Time amoxicillin Allergy Anaphylaxis Verified 11/11/19 10:45 cephalexin monohydrate Allergy Rash/Hives Verified 11/11/19 10:45 [From Keflex] clindamycin Allergy Rash/Hives Verified 11/11/19 10:45 Penicillins Allergy Rash/Hives Verified 11/11/19 10:45 Sulfa (Sulfonamide Allergy Anaphylaxis Verified 11/11/19 10:45 Antibiotics) sulfamethoxazole Allergy Anaphylaxis Verified 11/11/19 10:45 [From Bactrim] trimethoprim [From Bactrim] Allergy Anaphylaxis Verified 11/11/19 10:45 amlodipine AdvReac Swelling Verified 11/11/19 10:45 carvedilol AdvReac "MAKES ME Verified 11/11/19 10:45 JERILYN" Physical Exam Vitals: Vital Signs Temp Pulse Pulse Resp BP Pulse Ox 11/13/19 08:00 16 11/13/19 07:43 86 11/13/19 07:33 84 11/13/19 05:47 97.5 F L 66 16 141/76 93 L 11/12/19 22:18 97.7 F 69 12 152/75 94 L 11/12/19 16:00 16 11/12/19 14:18 91 152/81 93 L 11/12/19 13:11 97.7 F 72 16 142/77 93 L Intake and Output 11/12/19 11/13/19 11/13/19 22:59 06:59 14:59 Intake Total 240 Balance 240 Intake: Oral 240 Other: Voiding Method Toilet # Voids 2 2 Results - Lab Results Most recent lab results Calcium 9.5 mg/dL (8.4-10.2) 11/13/19 09:24 Magnesium 2.0 mg/dL (1.6-2.3) 11/11/19 09:40 11/13/19 09:24 11/13/19 09:24 Assessment and Plan Plan: Assessment: 1. Acute kidney injury mostly prerenal secondary to diuresis. Creatinine 2.36 today. 2. Chronic kidney disease stage III with baseline creatinine near 2 secondary to diabetic kidney disease and cardiorenal syndrome. 3. Insulin-dependent diabetes mellitus. 4. A. fib maintained on Cardizem, Lopressor as well as anticoagulation. 5. Hypertension with chronic kidney disease. Controlled. 6. Acute on chronic diastolic CHF with moderate tricuspid regurgitation and pulmonary hypertension. Currently compensated. 7. Chest pain and dyspnea. Now resolved. Low probability of PE noted on VQ scan. No significant fluid overload noted on chest x-ray. Plan: Change Lasix to 40 mg orally twice daily. Avoid nephrotoxins. Advised the patient to monitor his weight closely at home and to call our office if notices more than 3 pound weight gain or worsening of edema. Thank you for the consultation. I will continue to follow the patient with you during his hospital stay.
[2019-11-13 11:58] LABS: Glucose,Whole Blood 226 mg/dL (75-99)
[2019-11-13 16:47] LABS: Glucose,Whole Blood 280 mg/dL (75-99)
[2019-11-13] MEDS: FUROSEMIDE 40 MG TAB PO SCH (17:10)
--- NOTE | 2019-11-13 18:05 | PN ---
PROGRESS NOTE DATE OF SERVICE: 11/13/2019 This 64-year-old gentleman admitted with CHF, acute exacerbation, is on IV Lasix. Patient is improving significantly. Renal function is rather stable. Patient has chronic kidney disease, stage III. Multiple consultants are following the patient closely. Chest x-ray showed minimal CHF today. PHYSICAL EXAMINATION: Alert and oriented x3. Pulse 54, blood pressure 146/77, respiration 18, temperature 97.4, pulse ox 94% on room air. HEENT: Conjunctivae normal. NECK: No jugular venous distention. CARDIOVASCULAR SYSTEM: S1, S2 muffled. RESPIRATORY SYSTEM: Breath sounds diminished at the bases. A few scattered rhonchi. ABDOMEN: Soft, non-tender. NERVOUS SYSTEM: No focal deficit. LABS: CBC within normal limits. Sodium 138, potassium 3.9. Creatinine is 2.36. ASSESSMENT: 1. Shortness of breath; possibly congestive heart failure, acute exacerbation, with acute on chronic diastolic dysfunction, ejection fraction 50% to 60%. 2. Element of chronic obstructive pulmonary disease, acute exacerbation. 3. History of atrial fibrillation, paroxysmal. 4. History of coronary artery disease. 5. History of chronic obstructive pulmonary disease. 6. Diabetes mellitus, type 2. 7. Gastroesophageal reflux disease. 8. Hypertension. 9. Hyperlipidemia. 10.History of chronic liver disease. 11.History of myocardial infarction. 12.History of prostate cancer. 13.History of tachy-chary syndrome with pacemaker. 14.History of peripheral neuropathy, bilateral. 15.History of stage III chronic kidney disease. 16.History of liver cirrhosis. 17.History of benign prostatic hypertrophy. 18.History of degenerative joint disease. 19.Chronic low back pain and degenerative joint disease. 20.History of asbestos exposure. 21.History of celiac disease. 22.History of dermatitis herpetiformis. 23.History of coronary artery disease, stent. 24.Remote history of nicotine dependence. RECOMMENDATIONS AND DISCUSSION: In this 64-year-old gentleman who presented with multiple medical problems, I would recommend to continue the IV Lasix today. Monitor fluid/electrolyte balance closely. The patient might be able to be discharged on p.o. Lasix tomorrow. Monitor renal functions closely. Follow with multiple consultants. Prognosis guarded. Discussed with the patient's family at length, who understands. Further recommendations to follow. MMODL / IJN: [id number] /
[2019-11-13 20:15] LABS: Glucose,Whole Blood 301 mg/dL (75-99)
[2019-11-13] MEDS: MONTELUKAST 10 MG TAB PO SCH (21:16)
[2019-11-13] MEDS: ASPIRIN 81 MG PO SCH (21:17)
[2019-11-13] MEDS: INSULIN DETEMIR (LEVEMIR) 100 UNIT/ML SYR SQ SCH (21:17)
[2019-11-14 00:04] VITALS: RESP 20
[2019-11-14 05:27] VITALS: BP 133/68; TEMP 98
[2019-11-14 07:16] LABS: Glucose,Whole Blood 178 mg/dL (75-99)
[2019-11-14 08:11] LABS: Basophils # (A) 0.2 k/uL (0-0.2); Basophils % (A) 2 %; Eosinophils # (A) 0.4 k/uL (0-0.7); Eosinophils % (A) 4 %; HCT 41.8 % (39.0-53.0); HGB 13.1 gm/dL (13.0-17.5); Lymphocytes # (A) 0.8 k/uL (1.0-4.8); Lymphocytes % (A) 10 %; MCH 28.6 pg (25.0-35.0); MCHC 31.4 g/dL (31.0-37.0); MCV 91.1 fL (80.0-100.0); Mean Platelet Volume 7.7; Monocytes # (A) 0.6 k/uL (0-1.0); Monocytes % (A) 7 %; Neutrophils % (A) 74 %; Platelet Count 328 k/uL (150-450); RBC 4.59 m/uL (4.30-5.90); RDW 14.6 % (11.5-15.5); WBC 8.1 k/uL (3.8-10.6)
[2019-11-14] MEDS: ALLOPURINOL 100 MG TAB PO SCH (08:16)
[2019-11-14] MEDS: MAGNESIUM OXIDE 400 MG TAB PO SCH (08:16)
[2019-11-14] MEDS: FUROSEMIDE 40 MG TAB PO SCH (08:16)
[2019-11-14] MEDS: INSULIN ASPART (NovoLOG) 100 UNIT/ML VIAL SQ SCH (08:16)
[2019-11-14] MEDS: DILTIAZEM ORAL 30 MG TAB PO SCH (08:17)
[2019-11-14] MEDS: PANTOPRAZOLE 40 MG TABLET PO SCH (08:17)
[2019-11-14] MEDS: LORATADINE 10 MG TAB PO SCH (08:17)
[2019-11-14] MEDS: hydrALAZINE HCL 50 MG TAB PO SCH (08:17)
[2019-11-14] MEDS: METOPROLOL TARTRATE 50 MG TAB PO SCH (08:17)
[2019-11-14] MEDS: FLECAINIDE 50 MG TAB PO SCH (08:17)
[2019-11-14] MEDS: APIXABAN 5 MG TAB PO SCH (08:17)
[2019-11-14] MEDS: PRAVASTATIN SODIUM 40 MG TAB PO SCH (08:17)
[2019-11-14] MEDS: BETAMETHASONE DIPROPIONATE 0.05% CREAM 15 GM TUBE TOPICAL SCH (08:18)
[2019-11-14] MEDS: ISOSORBIDE MONONITRATE ER 30 MG TAB.ER.24H PO SCH (08:18)
[2019-11-14] MEDS: FLUTICASONE 50MCG/SPRAY NASAL 16GM EA NOSTRIL SCH (08:19)
[2019-11-14 08:24] LABS: Calcium 9.1 mg/dL (8.4-10.2)
[2019-11-14] MEDS: IPRATROPIUM-ALBUTEROL 3 ML NEB INHALATION SCH (08:51)
[2019-11-14 09:01] VITALS: PULSE 84
--- NOTE | 2019-11-14 09:15 | P.PN ---
Subjective HISTORY OF PRESENTING ILLNESS This is a pleasant 64-year-old male past medical history significant for paroxysmal atrial fibrillation on termite control servicer anti-coagulation, sick sinus syndrome s/p permanent pacemaker implantation, coronary artery disease s/p PCI to diagonal branch and circumflex, COPD, diabetes mellitus, chronic renal failure, hypertension, dyslipidemia, liver disease, chronic diastolic heart failure and former nicotine dependence. He follows in the office with Dr. Morgan. He has been up and walking without an increase in shortness of breath. Clinically he has improved and is stable for discharge. Lasix was changed to PO yesterday and changed back to IV per primary care team. Blood pressure 141/76 heart rate 66 afebrile and maintaining oxygen saturation on room air. Laboratory data reviewed, CBC unremarkable, sodium 138, potassium 3.9, creatinine 2.36. PHYSICAL EXAMINATION CONSTITUTIONAL: No apparent distress. HEENT: Head is normocephalic. Pupils are equal, round. Sclerae anicteric. Mucous membranes of the mouth are moist. No JVD. No carotid bruit. CHEST EXAMINATION: Lungs are clear to auscultation. No chest wall tenderness is noted on palpation or with deep breathing. Diminished bilaterally. HEART EXAMINATION: Regular rate and rhythm. S1, S2 heard. Systolic ejection murmur at the left sternal border, no gallops or rub. EXTREMITIES: 2+ peripheral pulses, no lower extremity edema and no calf tenderness. ASSESSMENT Acute on chronic diastolic heart failure, mild exacerbation. Improved with 2 does of IV lasix initiated per primary care team. paroxysmal atrial fibrillation on long-term anticoagulation History of coronary artery disease status post PCI Sick sinus syndrome status post permanent pacemaker implantation hypertension Dyslipidemia Diabetes mellitus COPD Chronic renal failure Pulmonary hypertension, RVSP 50 mmHg PLAN Stable for discharge from a cardiac perspective. Recommend PO lasix. Follow up with Dr. Morgan upon discharge. Nurse Practitioner note has been reviewed, I agree with a documented findings and plan of care. Patient was seen and examined. Objective - Vital Signs Vital signs: Vital Signs Temp 98 F 11/14/19 05:27 Pulse 84 11/14/19 09:01 Resp 20 11/14/19 05:27 BP 133/68 11/14/19 05:27 Pulse Ox 92 L 11/14/19 05:27 Intake & Output 11/13/19 11/14/19 11/14/19 18:59 06:59 18:59 Intake Total 480 100 Balance 480 100 Weight 89.9 kg 87.9 kg Intake: Oral 480 100 Other: Voiding Method Toilet # Voids 2 2 - Labs CBC & Chem 7: 11/14/19 07:45 11/14/19 07:45 Labs: Abnormal Lab Results - Last 24 Hours (Table) 11/13/19 11/13/19 11/13/19 Range/Units 09:24 09:24 11:55 Neutrophils # 8.0 H (1.3-7.7) k/uL Lymphocytes # 0.6 L (1.0-4.8) k/uL Carbon Dioxide (22-30) mmol/L BUN 41 H (9-20) mg/dL Creatinine 2.36 H (0.66-1.25) mg/dL Glucose 253 H (74-99) mg/dL POC Glucose (mg/dL) 226 H (75-99) mg/dL 11/13/19 11/13/19 11/14/19 Range/Units 16:44 20:04 07:14 Neutrophils # (1.3-7.7) k/uL Lymphocytes # (1.0-4.8) k/uL Carbon Dioxide (22-30) mmol/L BUN (9-20) mg/dL Creatinine (0.66-1.25) mg/dL Glucose (74-99) mg/dL POC Glucose (mg/dL) 280 H 301 H 178 H (75-99) mg/dL 11/14/19 11/14/19 Range/Units 07:45 07:45 Neutrophils # (1.3-7.7) k/uL Lymphocytes # 0.8 L (1.0-4.8) k/uL Carbon Dioxide 31 H (22-30) mmol/L BUN 45 H (9-20) mg/dL Creatinine 2.20 H (0.66-1.25) mg/dL Glucose 164 H (74-99) mg/dL POC Glucose (mg/dL) (75-99) mg/dL
--- NOTE | 2019-11-14 11:20 | P.PN ---
Subjective Patient is seen in follow-up for acute kidney injury on chronic kidney disease. Renal function is stable. No chest pain or shortness of breath. Urine output good. Vital signs are stable. General: The patient appeared well nourished and normally developed. HEENT: Head exam is unremarkable. Neck is without jugular venous distension. LUNGS: Lungs are clear to auscultation and percussion. Breath sounds decreased. HEART: Rate and Rhythm are regular. First and second heart sounds normal. No murmurs, rubs or gallops. ABDOMEN: Abdominal exam reveals normal bowel sounds. Non-tender and non- distended. No evidence of peritonitis. EXTREMITITES: No clubbing, cyanosis, or edema. Objective - Vital Signs Vital signs: Vital Signs Temp 98 F 11/14/19 05:27 Pulse 84 11/14/19 09:01 Resp 20 11/14/19 08:00 BP 133/68 11/14/19 05:27 Pulse Ox 92 L 11/14/19 05:27 Intake & Output 11/13/19 11/14/19 11/14/19 18:59 06:59 18:59 Intake Total 480 100 Balance 480 100 Weight 89.9 kg 87.9 kg Intake: Oral 480 100 Other: Voiding Method Toilet Toilet # Voids 2 2 - Labs CBC & Chem 7: 11/14/19 07:45 11/14/19 07:45 Labs: Abnormal Lab Results - Last 24 Hours (Table) 11/13/19 11/13/19 11/13/19 Range/Units 11:55 16:44 20:04 Lymphocytes # (1.0-4.8) k/uL Carbon Dioxide (22-30) mmol/L BUN (9-20) mg/dL Creatinine (0.66-1.25) mg/dL Glucose (74-99) mg/dL POC Glucose (mg/dL) 226 H 280 H 301 H (75-99) mg/dL 11/14/19 11/14/19 11/14/19 Range/Units 07:14 07:45 07:45 Lymphocytes # 0.8 L (1.0-4.8) k/uL Carbon Dioxide 31 H (22-30) mmol/L BUN 45 H (9-20) mg/dL Creatinine 2.20 H (0.66-1.25) mg/dL Glucose 164 H (74-99) mg/dL POC Glucose (mg/dL) 178 H (75-99) mg/dL Assessment and Plan Plan: Assessment: 1. Acute kidney injury mostly prerenal secondary to diuresis. Renal function better. Creatinine 2.2 today. 2. Chronic kidney disease stage III with baseline creatinine near 2 secondary to diabetic kidney disease and cardiorenal syndrome. 3. Insulin-dependent diabetes mellitus. 4. A. fib maintained on Cardizem, Lopressor as well as anticoagulation. 5. Hypertension with chronic kidney disease. Controlled. 6. Acute on chronic diastolic CHF with moderate tricuspid regurgitation and pulmonary hypertension. Currently compensated. 7. Chest pain and dyspnea. Now resolved. Low probability of PE noted on VQ scan. No significant fluid overload noted on chest x-ray. Plan: Continue Lasix 40 mg orally twice daily. Avoid nephrotoxins. Advised the patient to monitor his weight closely at home and to call our office if notices more than 3 pound weight gain or worsening of edema. Follow up outpatient. Patient has an appointment scheduled already.
--- NOTE | 2019-11-14 16:15 | P.DS ---
Providers Date of admission: 11/13/19 13:55 Expected date of discharge: 11/14/19 Attending physician: Pamela Arthur Consults: 11/11/19 11:55 Consult Physician Urgent Consulting Provider: Reilly Frias Consult Reason/Comments: Dyspnea Do you want consulting provider notified?: Yes 11/11/19 17:16 Consult Physician Routine Consulting Provider: Jeancarlos Chavarria Consult Reason/Comments: chf Do you want consulting provider notified?: Yes 11/12/19 15:04 Consult Physician Routine Consulting Provider: Dax Champagne Consult Reason/Comments: renal failure recommendations Do you want consulting provider notified?: Yes Primary care physician: [facility] Course: final diagnosis Shortness of breath, possibly congestive heart failure, acute exacerbation, with acute on chronic diastolic dysfunction, ejection fraction 50-60% Element of chronic obstructive pulmonary disease, acute exacerbation History of atrial fibrillation, paroxysmal History of coronary artery disease history of chronic obstructive pulmonary disease diabetes mellitus type 2 GERD Hypertension Hyperlipidemia History of chronic liver disease history of myocardial infarction History of prostate cancer history of tachybradycardia syndrome with pacemaker History of peripheral neuropathy, bilateral history of stage III chronic kidney disease history of liver cirrhosis history of benign prostatic hypertrophy history of degenerative joint disease Chronic low back pain and degenerative joint disease History of asbestos exposure History of celiac disease History of dermatitis herpetiformis History of coronary artery disease/stent Remote history of nicotine dependence discharge disposition Patient is being discharged in a stable condition with guarded prognosis to home and will follow-up with nephrology in the outpatient setting upon discharge. patient was given albuterol inhaler as he did not currently have one. Total time taken is 35 minutes. History of present illness This is a 64-year-old male who was recently admitted with CHF acute exacerbation and was being closely monitored. Patient was maintained on IV Lasix and diuresed well. Nephrology was following and patient will continue to follow-up in the outpatient setting with nephrology. Patient was given albuterol inhaler upon discharge as he didn't currently have a rescue inhaler with him. Patient's condition is stable and is ready for discharge today. patient is eager to leave today as he has an appointment at 1 PM. currently patient denies any chest pain, shortness of breath, or palpitations. Patient is afebrile. Patient denies any nausea or vomiting and has been tolerating diet. Recommend repeat labs in 2-3 days prior to nephrology appointment. Prescription was provided. on exam, vital signs are stable. Cardio S1, S2 are present. Respiratory system shows diminished breath sounds at the bases with no wheezing noted. Abdomen is soft and nontender. Nervous system shows no focal deficits and gait is steady. Please refer to medication reconciliation sheet for a list of medications. Patient Condition at Discharge: Good Plan - Discharge Summary Discharge Rx Participant: No New Discharge Prescriptions: New Albuterol Sulfate [Proair Hfa] 2 puff INHALATION Q6HR #1 inhaler Continue Insulin Detemir (Levemir) [Levemir] 36 unit SQ HS Fluticasone Nasal [place] [Flonase Nasal [place]] 1 spray EA NOSTRIL BID hydrALAZINE HCL [Apresoline] 100 mg PO TID #90 tab Nitroglycerin Sl Tabs [Nitrostat] 0.4 mg SUBLINGUAL Q5M PRN #25 tab PRN Reason: Chest Pain Cholecalciferol [Vitamin D3 (25 Mcg = 1000 Iu)] 3,000 unit PO PC-BRKFST Isosorbide Mononitrate ER [Imdur] 30 mg PO DAILY Pantoprazole [Protonix] 40 mg PO BID Montelukast [Singulair] 10 mg PO HS Metoprolol Tartrate [Lopressor] 100 mg PO BID Loratadine [Claritin] 10 mg PO DAILY Apixaban [Eliquis] 5 mg PO BID #60 tab Furosemide [Lasix] 40 mg PO BID@0900,1600 #60 tab Ipratropium-Albuterol Nebulize [Duoneb 0.5 mg-3 mg/3 ml Soln] 3 ml INHALATION RT-QID PRN PRN Reason: Shortness Of Breath Allopurinol [Zyloprim] 100 mg PO DAILY Vitamin B Complex 1 cap PO DAILY Diltiazem Oral [Cardizem*] 90 mg PO BID Aspirin [Adult Low Dose Aspirin EC] 81 mg PO HS Ubidecarenone [Co Q-10] 100 mg PO DAILY Magnesium Citrate 300 mg PO DAILY Betamethasone Dipropionate [Betamethasone Diprop Augm Gel 0.05%] 1 applic TOPICAL DAILY INSULIN LISPRO (humaLOG) [humaLOG] See Protocol SQ AC-TID Pravastatin Sodium [Pravachol] 40 mg PO DAILY Flecainide [Tambocor] 50 mg PO Q12HR Discharge Medication List Insulin Detemir (Levemir) [Levemir] 36 unit SQ HS 08/18/14 [History] Fluticasone Nasal [place] [Flonase Nasal [place]] 1 spray EA NOSTRIL BID 05/12/16 [History] hydrALAZINE HCL [Apresoline] 100 mg PO TID #90 tab 06/07/18 [Rx] Nitroglycerin Sl Tabs [Nitrostat] 0.4 mg SUBLINGUAL Q5M PRN #25 tab 06/28/18 [Rx] Cholecalciferol [Vitamin D3 (25 Mcg = 1000 Iu)] 3,000 unit PO PC-BRKFST 08/26/18 [History] Isosorbide Mononitrate ER [Imdur] 30 mg PO DAILY 01/16/19 [History] Pantoprazole [Protonix] 40 mg PO BID 01/16/19 [History] Montelukast [Singulair] 10 mg PO HS 02/12/19 [History] Loratadine [Claritin] 10 mg PO DAILY 03/28/19 [History] Metoprolol Tartrate [Lopressor] 100 mg PO BID 03/28/19 [History] Apixaban [Eliquis] 5 mg PO BID #60 tab 04/03/19 [Rx] Furosemide [Lasix] 40 mg PO BID@0900,1600 #60 tab 04/10/19 [Rx] Ipratropium-Albuterol Nebulize [Duoneb 0.5 mg-3 mg/3 ml Soln] 3 ml INHALATION RT-QID PRN 06/12/19 [History] Allopurinol [Zyloprim] 100 mg PO DAILY 06/24/19 [History] Diltiazem Oral [Cardizem*] 90 mg PO BID 06/24/19 [History] Vitamin B Complex 1 cap PO DAILY 06/24/19 [History] Aspirin [Adult Low Dose Aspirin EC] 81 mg PO HS 08/01/19 [History] Magnesium Citrate 300 mg PO DAILY 08/01/19 [History] Ubidecarenone [Co Q-10] 100 mg PO DAILY 08/01/19 [History] Betamethasone Dipropionate [Betamethasone Diprop Augm Gel 0.05%] 1 applic TOPICAL DAILY 11/11/19 [History] Flecainide [Tambocor] 50 mg PO Q12HR 11/11/19 [History] INSULIN LISPRO (humaLOG) [humaLOG] See Protocol SQ AC-TID 11/11/19 [History] Pravastatin Sodium [Pravachol] 40 mg PO DAILY 11/11/19 [History] Albuterol Sulfate [Proair Hfa] 2 puff INHALATION Q6HR #1 inhaler 11/14/19 [Rx] Follow up Appointment(s)/Referral(s): Zeina Morgan MD [STAFF PHYSICIAN] - 2 Weeks Ivy Valentine DO [Primary Care Provider] - 1-2 days Dax Champagne DO [STAFF PHYSICIAN] - 1 Week Ambulatory/Diagnostic Orders: Basic Metabolic Panel [LAB.AMB] Time Frame: 3 Days, Location: None Selected Patient Instructions/Handouts: Heart Failure (DC), Type 2 Diabetes in Adults: New Diagnosis (DC) Activity/Diet/Wound Care/Special Instructions: Activity limited until follow up follow up with primary care provider upon discharge follow up with nephrology as discussed repeat labs in 2-3 days continue current diet Discharge Disposition: HOME SELF-CARE
== END 2019-11-14 11:09 | disposition home or self-care (01) | DRG 291 ==
LOC: EC 08:48 → 6NMEDSUR 12:09 → OBSVTOIN 11-13 13:55
PROVIDERS: ADMIT Hospitalist; ATTEND Hospitalist
PROC: 4B02XSZ Measurement of Cardiac Pacemaker, External Approach (ICD-10-PCS; principal; 2019-11-12)
DX: I13.0 Hypertensive heart and chronic kidney disease with heart failure and stage 1 through stage 4 chronic kidney disease, or unspecified chronic kidney disease (principal); I50.33 Acute on chronic diastolic (congestive) heart failure; N17.9 Acute kidney failure, unspecified; J44.1 Chronic obstructive pulmonary disease with (acute) exacerbation; J98.11 Atelectasis; N18.4 Chronic kidney disease, stage 4 (severe); I25.10 Atherosclerotic heart disease of native coronary artery without angina pectoris; E11.22 Type 2 diabetes mellitus with diabetic chronic kidney disease; E78.5 Hyperlipidemia, unspecified; G62.9 Polyneuropathy, unspecified; G89.29 Other chronic pain; I27.20 Pulmonary hypertension, unspecified; N40.0 Benign prostatic hyperplasia without lower urinary tract symptoms; K21.9 Gastro-esophageal reflux disease without esophagitis; T50.2X5A Adverse effect of carbonic-anhydrase inhibitors, benzothiadiazides and other diuretics, initial encounter; K90.0 Celiac disease; Z96.1 Presence of intraocular lens; K74.60 Unspecified cirrhosis of liver; I49.5 Sick sinus syndrome; I08.3 Combined rheumatic disorders of mitral, aortic and tricuspid valves; I48.0 Paroxysmal atrial fibrillation; M19.90 Unspecified osteoarthritis, unspecified site; Z77.090 Contact with and (suspected) exposure to asbestos; Z79.01 Long term (current) use of anticoagulants; I25.2 Old myocardial infarction; Z79.4 Long term (current) use of insulin; Z79.51 Long term (current) use of inhaled steroids; Z79.82 Long term (current) use of aspirin; Z79.899 Other long term (current) drug therapy; Z82.49 Family history of ischemic heart disease and other diseases of the circulatory system; Z85.46 Personal history of malignant neoplasm of prostate; Z83.3 Family history of diabetes mellitus; Z87.891 Personal history of nicotine dependence; Z95.5 Presence of coronary angioplasty implant and graft; Z95.0 Presence of cardiac pacemaker; Z98.42 Cataract extraction status, left eye; Z98.41 Cataract extraction status, right eye; Z88.1 Allergy status to other antibiotic agents; Z88.0 Allergy status to penicillin; Z88.2 Allergy status to sulfonamides; Z88.8 Allergy status to other drugs, medicaments and biological substances
CPT/HCPCS: 36415; 71046; 78582; 80048; 80053; 83735; 83880; 84484; 85025; 85379; 85610; 85730; 93005; 94640; 99285

== ENCOUNTER 2020-09-27 01:02 | Emergency (ER) | payer MEDICARE ==
[2020-09-27 01:06] VITALS: RESP 16
[2020-09-27] MEDS ORDERED: OXYMETAZOLINE 0.05% NASL SPRAY 1 SPRAY BOTTLE NASAL STA (01:35)
[2020-09-27] MEDS ORDERED: LIDOCAINE/EPINEPHR/TETRACAINE 5 ML BOTTLE TOPICAL ONE (02:20)
[2020-09-27] MEDS ORDERED: SILVER NITRATE APPLICATOR 1 EACH STICK..EA. TOPICAL STA (03:17)
[2020-09-27] MEDS ORDERED: BACITRACIN OINT 1 EACH PACKET TOPICAL ONE (03:42)
--- NOTE | 2020-09-27 04:02 | ED ---
General Adult HPI - General Chief complaint: ENT Stated complaint: Nosebleed Time Seen by Provider: 09/27/20 01:11 EST Source: patient, EMS Mode of arrival: EMS - History of Present Illness Initial comments: 65-year-old male patient presents to the emergency department today for evaluation of epistaxis. Patient states he has had nasal bleeding since around 9:30 PM. States he is held pressure was able to get it to stop bleeding a couple of times but had recurrence of bleeding. Patient does take Eliquis. States he has frequent nosebleeds. States he has seen ENT and has had issues with his sinuses. He does take Flonase and betamethasone dipropionate on a regular basis. Denies any headache, dizziness, or weakness. States his blood pressure is controlled with medications. Denies any fever or chills. 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 Patient denies any recent rash, cough, shortness of breath, chest pain, abdominal pain, nausea, vomiting, diarrhea, constipation, back pain, numbness, tingling, dizziness, weakness, hematuria, dysuria, urinary urgency, urinary frequency, headache, visual changes, or any other complaints. - Related Data Home Medications Medication Instructions Recorded Confirmed Insulin Detemir (Levemir) [Levemir] 36 unit SQ HS 08/18/14 11/11/19 Fluticasone Nasal [place] [Flonase 1 spray EA NOSTRIL BID 05/12/16 11/11/19 Nasal [place]] Cholecalciferol [Vitamin D3 (25 3,000 unit PO PC-BRKFST 08/26/18 11/11/19 Mcg = 1000 Iu)] Isosorbide Mononitrate ER [Imdur] 30 mg PO DAILY 01/16/19 11/11/19 Pantoprazole [Protonix] 40 mg PO BID 01/16/19 11/11/19 Montelukast [Singulair] 10 mg PO HS 02/12/19 11/11/19 Loratadine [Claritin] 10 mg PO DAILY 03/28/19 11/11/19 Metoprolol Tartrate [Lopressor] 100 mg PO BID 03/28/19 11/11/19 Ipratropium-Albuterol Nebulize 3 ml INHALATION RT-QID PRN 06/12/19 11/11/19 [Duoneb 0.5 mg-3 mg/3 ml Soln] Diltiazem Oral [Cardizem*] 90 mg PO BID 06/24/19 11/11/19 Vitamin B Complex 1 cap PO DAILY 06/24/19 11/11/19 allopurinoL [Zyloprim] 100 mg PO DAILY 06/24/19 11/11/19 Aspirin [Adult Low Dose Aspirin EC] 81 mg PO HS 08/01/19 11/11/19 Magnesium Citrate 300 mg PO DAILY 08/01/19 11/11/19 Ubidecarenone [Co Q-10] 100 mg PO DAILY 08/01/19 11/11/19 Betamethasone Dipropionate 1 applic TOPICAL DAILY 11/11/19 11/11/19 [Betamethasone Diprop Augm Gel 0.05%] Flecainide [Tambocor] 50 mg PO Q12HR 11/11/19 11/11/19 INSULIN LISPRO (humaLOG) [humaLOG] See Protocol SQ AC-TID 11/11/19 11/11/19 Pravastatin Sodium [Pravachol] 40 mg PO DAILY 11/11/19 11/11/19 Previous Rx's Medication Instructions Recorded hydrALAZINE HCL [Apresoline] 100 mg PO TID #90 tab 06/07/18 Nitroglycerin Sl Tabs [Nitrostat] 0.4 mg SUBLINGUAL Q5M PRN #25 tab 06/28/18 Apixaban [Eliquis] 5 mg PO BID #60 tab 04/03/19 Furosemide [Lasix] 40 mg PO BID@0900,1600 #60 tab 04/10/19 Albuterol Sulfate [Proair Hfa] 2 puff INHALATION Q6HR #1 inhaler 11/14/19 Azithromycin [Zithromax Z-pack (6 0 mg PO DIRECTED #6 tab 09/27/20 tabs)] Allergies Allergy/AdvReac Type Severity Reaction Status Date / Time amoxicillin Allergy Anaphylaxis Verified 09/27/20 01:07 EST cephalexin monohydrate Allergy Rash/Hives Verified 09/27/20 01:07 EST [From Keflex] clindamycin Allergy Rash/Hives Verified 09/27/20 01:07 EST Penicillins Allergy Rash/Hives Verified 09/27/20 01:07 EST Sulfa (Sulfonamide Allergy Anaphylaxis Verified 09/27/20 01:07 EST Antibiotics) sulfamethoxazole Allergy Anaphylaxis Verified 09/27/20 01:07 EST [From Bactrim] trimethoprim [From Bactrim] Allergy Anaphylaxis Verified 09/27/20 01:07 EST amlodipine AdvReac Swelling Verified 09/27/20 01:07 EST carvedilol AdvReac "MAKES ME Verified 09/27/20 01:07 EST JERILYN" Review of Systems ROS Statement: Those systems with pertinent positive or pertinent negative responses have been documented in the HPI. ROS Other: All systems not noted in ROS Statement are negative. Past Medical History Past Medical History: Atrial Fibrillation, Coronary Artery Disease (CAD), Chest Pain / Angina, Heart Failure, COPD, Diabetes Mellitus, GERD/Reflux, Hyperlipidemia, Hypertension, Liver Disease, Myocardial Infarction ([place]), Prostate Disorder, Renal Disease, Skin Disorder, Vascular Disorder Additional Past Medical History / Comment(s): history ofAfib with RVR, tachybrady syndrome with pacemaker, IDDM type II, neuropathy bilateral feet, stage III chronic kidney disease, chronic CHF, R pleural effusion, liver cirrhosis, BPH, DJD, herniated discs low back, chronic low back pain, varicose veins , anemia with hx of iron infusions., past asbestos exposure, celiac disease, dermatitis herpetiformis. Last Myocardial Infarction Date:: 06/2018 History of Any Multi-Drug Resistant Organisms: None Reported Past Surgical History: Ablation, Cardiac Ablation, Cholecystectomy, Heart Catheterization With Stent, Pacemaker, Tonsillectomy Additional Past Surgical History / Comment(s): PCI with STENTS x 3, bilateral cataracts removed with lens implants, colonoscopy, [employer] pacemaker Past Anesthesia/Blood Transfusion Reactions: No Reported Reaction Date of Last Stent Placement:: 2017 Type of Cardiac Device: Permanent Pacemaker Device Placement Date:: 02/02/19 Past Psychological History: No Psychological Hx Reported Smoking Status: Former smoker Past Alcohol Use History: None Reported Past Drug Use History: None Reported - Past Family History Mother Family Medical History: Diabetes Mellitus Father Family Medical History: Myocardial Infarction ([place]) Additional Family Medical History / Comment(s): Father had a [place] in his 70s. Brother(s) Family Medical History: Myocardial Infarction ([place]) Additional Family Medical History / Comment(s): Brother had a [place] in his 50s. General Exam General appearance: alert, in no apparent distress, other (This is a well- developed, well-nourished adult male patient in no acute distress. Vital signs upon presentation are temperature 98.0F, pulse 76, respirations 16, blood pressure 150/84, pulse ox 97% on room air.) Eye exam: Present: normal appearance, PERRL, EOMI. Absent: scleral icterus, conjunctival injection, periorbital swelling ENT exam: Present: normal oropharynx, mucous membranes moist, other (Bleeding from the left nare.) Respiratory exam: Present: normal lung sounds bilaterally. Absent: respiratory distress, wheezes, rales, rhonchi, stridor Cardiovascular Exam: Present: regular rate, normal rhythm, normal heart sounds. Absent: systolic murmur, diastolic murmur, rubs, gallop, clicks GI/Abdominal exam: Present: soft, normal bowel sounds. Absent: distended, tenderness, guarding, rebound, rigid Neurological exam: Present: alert, oriented X3, CN II-XII intact Psychiatric exam: Present: normal affect, normal mood Skin exam: Present: warm, dry, intact, normal color. Absent: rash Course Vital Signs 09/27/20 09/27/20 01:04 EST 04:10 Temperature 98 F 97.5 F L Pulse Rate 76 85 Respiratory 16 16 Rate Blood Pressure 150/84 155/94 O2 Sat by Pulse 97 96 Oximetry Procedures - Procedures Initial comment: 8cm nasal tampon was covered with bacitracin inserted into the left nare. Wet with saline. This did control the bleeding. He did tolerate the procedure well. Medical Decision Making - Medical Decision Making 65-year-old male patient presented to the emergency department today for evaluation of epistaxis. Blood pressure is controlled around 150 over 80s. We did attempt several times to stop the bleeding without packing including instillation of afrin soaked gauze with pressure, LET soaked gauze with pressure, and cautery with silver nitrate. These attempts were unsuccessful. Nasal packing was placed with nasal tampon. Patient tolerated this well. He was started on a azithromycin. He'll be discharged follow-up with ENT specialist for further evaluation as soon as possible. Return parameters were discussed in detail. He verbalizes understanding and agrees with this plan. Disposition Clinical Impression: Epistaxis Disposition: HOME SELF-CARE Condition: Good Instructions (If sedation given, give patient instructions): Nosebleed (ED) Additional Instructions: Keep packing in for at least three days. Follow up with ENT as soon as possible. Return to the emergency department for any new, worsening, or concerning symptoms. Prescriptions: Azithromycin [Zithromax Z-pack (6 tabs)] 0 mg PO DIRECTED #6 tab Is patient prescribed a controlled substance at d/c from ED?: No Referrals: Ivy Valentine DO [Primary Care Provider] - 1-2 days Mahendra Bhardwaj DO [Doctor of Osteopathic Medicine] - 1-2 days Time of Disposition: 04:02
[2020-09-27 04:11] VITALS: BP 155/94; PULSE 85; TEMP 97.5
== END 2020-09-27 04:11 | disposition home or self-care (01) ==
LOC: EC 01:02
DX: R04.0 Epistaxis (principal); I13.0 Hypertensive heart and chronic kidney disease with heart failure and stage 1 through stage 4 chronic kidney disease, or unspecified chronic kidney disease; E11.22 Type 2 diabetes mellitus with diabetic chronic kidney disease; N18.30 Chronic kidney disease, stage 3 unspecified; J44.9 Chronic obstructive pulmonary disease, unspecified; E11.40 Type 2 diabetes mellitus with diabetic neuropathy, unspecified; I25.119 Atherosclerotic heart disease of native coronary artery with unspecified angina pectoris; K21.9 Gastro-esophageal reflux disease without esophagitis; I50.9 Heart failure, unspecified; I48.20 Chronic atrial fibrillation, unspecified; G89.29 Other chronic pain; M54.5 Low back pain; I25.2 Old myocardial infarction; Z79.899 Other long term (current) drug therapy; Z79.4 Long term (current) use of insulin; Z79.51 Long term (current) use of inhaled steroids; Z79.82 Long term (current) use of aspirin; Z88.0 Allergy status to penicillin; Z88.1 Allergy status to other antibiotic agents; Z88.2 Allergy status to sulfonamides; Z88.8 Allergy status to other drugs, medicaments and biological substances; Z87.891 Personal history of nicotine dependence
CPT/HCPCS: 30901; 99283

== ENCOUNTER 2021-01-16 21:06 | Emergency (ER) | payer MEDICARE ==
[2021-01-16 21:21] VITALS: BP 150/79; PULSE 77; RESP 18; TEMP 97.6
[2021-01-16 22:14] LABS: Basophils # (A) 0.1 k/uL (0-0.2); Basophils % (A) 1 %; Eosinophils # (A) 0.2 k/uL (0-0.7); Eosinophils % (A) 2 %; HCT 43.3 % (39.0-53.0); HGB 14.3 gm/dL (13.0-17.5); Lymphocytes # (A) 1.2 k/uL (1.0-4.8); Lymphocytes % (A) 11 %; MCH 30.8 pg (25.0-35.0); MCHC 33.1 g/dL (31.0-37.0); Mean Platelet Volume 8.4; Monocytes # (A) 0.6 k/uL (0-1.0); Monocytes % (A) 6 %; Neutrophils # (A) 7.9 k/uL (1.3-7.7); Neutrophils % (A) 78 %; Platelet Count 234 k/uL (150-450); RBC 4.65 m/uL (4.30-5.90); RDW 14.3 % (11.5-15.5); WBC 10.1 k/uL (3.8-10.6)
[2021-01-16 22:21] LABS: Albumin 4.4 g/dL (3.5-5.0); Calcium 9.4 mg/dL (8.4-10.2); Potassium 4.3 mmol/L (3.5-5.1); Total Bilirubin 0.4 mg/dL (0.2-1.3); Total Protein 7.6 g/dL (6.3-8.2)
[2021-01-16 22:22] LABS: Partial Thromboplastin Time 26.9 sec (22.0-30.0); Prothrombin Time 10.5 sec (9.0-12.0)
--- NOTE | 2021-01-16 22:55 | ED ---
ENT HPI - General Chief complaint: ENT Stated complaint: Nose Bleed Time Seen by Provider: 01/16/21 21:19 Source: patient Mode of arrival: ambulatory Limitations: no limitations - History of Present Illness Initial comments: 65-year-old male presents to the emergency department chief complaint of a nosebleed. Patient does have history of epistaxis secondary to blood thinners. States the bleeding started approximately 1 hour prior to arrival in the left nostril. States he goes to an ENT specialist regularly for cauterization. He did apply pressure to the nose but it does not seem to be resolving. She does report swallowingand spitting up some blood as well. Denies any lightheadedness, dizziness, chest pain, shortness of breath or blurry vision. Trauma to the nose - Related Data Home Medications Medication Instructions Recorded Confirmed Insulin Detemir (Levemir) [Levemir] 36 unit SQ HS 08/18/14 11/11/19 Fluticasone Nasal [place] [Flonase 1 spray EA NOSTRIL BID 05/12/16 11/11/19 Nasal [place]] Cholecalciferol [Vitamin D3 (25 3,000 unit PO PC-BRKFST 08/26/18 11/11/19 Mcg = 1000 Iu)] Isosorbide Mononitrate ER [Imdur] 30 mg PO DAILY 01/16/19 11/11/19 Pantoprazole [Protonix] 40 mg PO BID 01/16/19 11/11/19 Montelukast [Singulair] 10 mg PO HS 02/12/19 11/11/19 Loratadine [Claritin] 10 mg PO DAILY 03/28/19 11/11/19 Metoprolol Tartrate [Lopressor] 100 mg PO BID 03/28/19 11/11/19 Ipratropium-Albuterol Nebulize 3 ml INHALATION RT-QID PRN 06/12/19 11/11/19 [Duoneb 0.5 mg-3 mg/3 ml Soln] Diltiazem Oral [Cardizem*] 90 mg PO BID 06/24/19 11/11/19 Vitamin B Complex 1 cap PO DAILY 06/24/19 11/11/19 allopurinoL [Zyloprim] 100 mg PO DAILY 06/24/19 11/11/19 Aspirin [Adult Low Dose Aspirin EC] 81 mg PO HS 08/01/19 11/11/19 Magnesium Citrate 300 mg PO DAILY 08/01/19 11/11/19 Ubidecarenone [Co Q-10] 100 mg PO DAILY 08/01/19 11/11/19 Betamethasone Dipropionate 1 applic TOPICAL DAILY 11/11/19 11/11/19 [Betamethasone Diprop Augm Gel 0.05%] Flecainide [Tambocor] 50 mg PO Q12HR 11/11/19 11/11/19 INSULIN LISPRO (humaLOG) [humaLOG] See Protocol SQ AC-TID 11/11/19 11/11/19 Pravastatin Sodium [Pravachol] 40 mg PO DAILY 11/11/19 11/11/19 Previous Rx's Medication Instructions Recorded hydrALAZINE HCL [Apresoline] 100 mg PO TID #90 tab 06/07/18 Nitroglycerin Sl Tabs [Nitrostat] 0.4 mg SUBLINGUAL Q5M PRN #25 tab 06/28/18 Apixaban [Eliquis] 5 mg PO BID #60 tab 04/03/19 Furosemide [Lasix] 40 mg PO BID@0900,1600 #60 tab 04/10/19 Albuterol Sulfate [Proair Hfa] 2 puff INHALATION Q6HR #1 inhaler 11/14/19 Azithromycin [Zithromax Z-pack (6 0 mg PO DIRECTED #6 tab 09/27/20 tabs)] Allergies Allergy/AdvReac Type Severity Reaction Status Date / Time amoxicillin Allergy Anaphylaxis Verified 01/16/21 21:18 cephalexin monohydrate Allergy Rash/Hives Verified 01/16/21 21:18 [From Keflex] clindamycin Allergy Rash/Hives Verified 01/16/21 21:18 Penicillins Allergy Rash/Hives Verified 01/16/21 21:18 Sulfa (Sulfonamide Allergy Anaphylaxis Verified 01/16/21 21:18 Antibiotics) sulfamethoxazole Allergy Anaphylaxis Verified 01/16/21 21:18 [From Bactrim] trimethoprim [From Bactrim] Allergy Anaphylaxis Verified 01/16/21 21:18 amlodipine AdvReac Swelling Verified 01/16/21 21:18 carvedilol AdvReac "MAKES ME Verified 01/16/21 21:18 JERILYN" Review of Systems ROS Statement: Those systems with pertinent positive or pertinent negative responses have been documented in the HPI. ROS Other: All systems not noted in ROS Statement are negative. Past Medical History Past Medical History: Atrial Fibrillation, Coronary Artery Disease (CAD), Chest Pain / Angina, Heart Failure, COPD, Diabetes Mellitus, GERD/Reflux, Hyperlipidemia, Hypertension, Liver Disease, Myocardial Infarction ([place]), Prostate Disorder, Renal Disease, Skin Disorder, Vascular Disorder Additional Past Medical History / Comment(s): history ofAfib with RVR, tachybrady syndrome with pacemaker, IDDM type II, neuropathy bilateral feet, s tage III chronic kidney disease, chronic CHF, R pleural effusion, liver cirrhosis, BPH, DJD, herniated discs low back, chronic low back pain, varicose veins , anemia with hx of iron infusions., past asbestos exposure, celiac disease, dermatitis herpetiformis. Last Myocardial Infarction Date:: 06/2018 History of Any Multi-Drug Resistant Organisms: None Reported Past Surgical History: Ablation, Cardiac Ablation, Cholecystectomy, Heart Catheterization With Stent, Pacemaker, Tonsillectomy Additional Past Surgical History / Comment(s): PCI with STENTS x 3, bilateral cataracts removed with lens implants, colonoscopy, [employer] pacemaker Past Anesthesia/Blood Transfusion Reactions: No Reported Reaction Date of Last Stent Placement:: 2017 Type of Cardiac Device: Permanent Pacemaker Device Placement Date:: 02/02/19 Past Psychological History: No Psychological Hx Reported Smoking Status: Former smoker Past Alcohol Use History: None Reported Past Drug Use History: None Reported - Past Family History Mother Family Medical History: Diabetes Mellitus Father Family Medical History: Myocardial Infarction ([place]) Additional Family Medical History / Comment(s): Father had a [place] in his 70s. Brother(s) Family Medical History: Myocardial Infarction ([place]) Additional Family Medical History / Comment(s): Brother had a [place] in his 50s. General Exam Limitations: no limitations General appearance: alert, in no apparent distress Head exam: Present: atraumatic, normocephalic, normal inspection Eye exam: Present: normal appearance, PERRL, EOMI Pupils: Present: normal accommodation ENT exam: Present: normal exam, mucous membranes moist. Absent: normal oropharynx (epistaxis in the left nostril. Unable to visualize source of bleeding. Residual blood noted in the posterior pharynx) Neck exam: Present: normal inspection, full ROM. Absent: tenderness Respiratory exam: Present: normal lung sounds bilaterally. Absent: respiratory distress Cardiovascular Exam: Present: regular rate, normal rhythm, normal heart sounds Extremities exam: Present: normal inspection, full ROM, normal capillary refill. Absent: tenderness Back exam: Present: normal inspection, full ROM. Absent: tenderness Neurological exam: Present: alert, oriented X3, normal gait Skin exam: Present: warm, dry, intact, normal color Course Vital Signs 01/16/21 21:18 Temperature 97.6 F Pulse Rate 77 Respiratory 18 Rate Blood Pressure 150/79 O2 Sat by Pulse 97 Oximetry Medical Decision Making - Medical Decision Making 65-year-old male presents to the emergency department with a chief complaint of epistaxis. On physical examination, there is left-sided epistaxis but I am not able to localize the source of the bleed. I did apply a nasal clamp and the bleeding eventually resolved. CBC remarkable. CMP reveals elevated BUN/creatinine secondary to chronic kidney disease.mild elevation in transaminases. Coags within normal limits. On reevaluation, the bleeding has resolved. Patient will follow up with an ENT specialist. Return parameters thoroughly discussed with patient was understanding and agreeable. Case discussed with - Lab Data Result diagrams: 01/16/21 22:05 01/16/21 22:05 Lab Results 01/16/21 01/16/21 01/16/21 Range/Units 22:05 22:05 22:05 WBC 10.1 (3.8-10.6) k/uL RBC 4.65 (4.30-5.90) m/uL Hgb 14.3 (13.0-17.5) gm/dL Hct 43.3 (39.0-53.0) % MCV 93.0 (80.0-100.0) fL MCH 30.8 (25.0-35.0) pg MCHC 33.1 (31.0-37.0) g/dL RDW 14.3 (11.5-15.5) % Plt Count 234 (150-450) k/uL MPV 8.4 Neutrophils % 78 % Lymphocytes % 11 % Monocytes % 6 % Eosinophils % 2 % Basophils % 1 % Neutrophils # 7.9 H (1.3-7.7) k/uL Lymphocytes # 1.2 (1.0-4.8) k/uL Monocytes # 0.6 (0-1.0) k/uL Eosinophils # 0.2 (0-0.7) k/uL Basophils # 0.1 (0-0.2) k/uL PT 10.5 (9.0-12.0) sec INR 1.0 (<1.2) APTT 26.9 (22.0-30.0) sec Sodium 138 (137-145) mmol/L Potassium 4.3 (3.5-5.1) mmol/L Chloride 99 (98-107) mmol/L Carbon Dioxide 27 (22-30) mmol/L Anion Gap 12 mmol/L BUN 68 H (9-20) mg/dL Creatinine 2.51 H (0.66-1.25) mg/dL Est GFR (CKD-EPI)AfAm 30 (>60 ml/min/1.73 sqM) Est GFR (CKD-EPI)NonAf 26 (>60 ml/min/1.73 sqM) Glucose 161 H (74-99) mg/dL Calcium 9.4 (8.4-10.2) mg/dL Total Bilirubin 0.4 (0.2-1.3) mg/dL AST 61 H (17-59) U/L ALT 63 H (4-49) U/L Alkaline Phosphatase 152 H (38-126) U/L Total Protein 7.6 (6.3-8.2) g/dL Albumin 4.4 (3.5-5.0) g/dL Disposition Clinical Impression: Left-sided epistaxis Disposition: HOME SELF-CARE Condition: Stable Instructions (If sedation given, give patient instructions): Nosebleed (ED) Additional Instructions: Please return to the Emergency Department if symptoms worsen or any other concerns. Is patient prescribed a controlled substance at d/c from ED?: No Referrals: Ivy Valentine DO [Primary Care Provider] - 1-2 days Time of Disposition: 22:55
== END 2021-01-16 23:04 | disposition home or self-care (01) ==
LOC: EC 21:06
DX: R04.0 Epistaxis (principal); J44.9 Chronic obstructive pulmonary disease, unspecified; I25.119 Atherosclerotic heart disease of native coronary artery with unspecified angina pectoris; E11.40 Type 2 diabetes mellitus with diabetic neuropathy, unspecified; K21.9 Gastro-esophageal reflux disease without esophagitis; E11.22 Type 2 diabetes mellitus with diabetic chronic kidney disease; E78.5 Hyperlipidemia, unspecified; N18.30 Chronic kidney disease, stage 3 unspecified; I25.2 Old myocardial infarction; I13.0 Hypertensive heart and chronic kidney disease with heart failure and stage 1 through stage 4 chronic kidney disease, or unspecified chronic kidney disease; Z79.4 Long term (current) use of insulin; Z79.82 Long term (current) use of aspirin; Z79.899 Other long term (current) drug therapy; Z88.0 Allergy status to penicillin; Z88.1 Allergy status to other antibiotic agents; Z88.2 Allergy status to sulfonamides; Z88.8 Allergy status to other drugs, medicaments and biological substances; Z87.891 Personal history of nicotine dependence; Z90.49 Acquired absence of other specified parts of digestive tract; Z95.0 Presence of cardiac pacemaker; Z95.5 Presence of coronary angioplasty implant and graft; Z98.42 Cataract extraction status, left eye; Z98.41 Cataract extraction status, right eye; Z96.1 Presence of intraocular lens
CPT/HCPCS: 36415; 80053; 85025; 85610; 85730; 99283

== ENCOUNTER 2021-01-17 01:42 | Emergency (ER) | payer MEDICARE ==
[2021-01-17 01:49] VITALS: RESP 16
[2021-01-17] MEDS ORDERED: OXYMETAZOLINE 0.05% NASL SPRAY 1 SPRAY BOTTLE NASAL STA (02:00)
[2021-01-17] MEDS ORDERED: SILVER NITRATE APPLICATOR 1 EACH STICK..EA. TOPICAL STA (02:00)
--- NOTE | 2021-01-17 03:22 | ED ---
ENT HPI - General Chief complaint: ENT Stated complaint: NOSE BLEED Time Seen by Provider: 01/17/21 01:55 Source: patient, family Mode of arrival: ambulatory Limitations: no limitations - History of Present Illness Initial comments: Patient is 65-year-old presenting for second time with left-sided epistaxis. He was discharged earlier and had recurrence of symptoms. He denies any trauma. He states that he had just inhaled through his nose and the bleeding recurred. Patient denies signs or symptoms of anemia. He has required previous packing for epistaxis. MD complaint: epistaxis -: hour(s) Location: nose Severity scale (1-10): 0 Improves with: none Worsens with: none Context-Epistaxis: other - Related Data Home Medications Medication Instructions Recorded Confirmed Insulin Detemir (Levemir) [Levemir] 36 unit SQ HS 08/18/14 11/11/19 Fluticasone Nasal [place] [Flonase 1 spray EA NOSTRIL BID 05/12/16 11/11/19 Nasal [place]] Cholecalciferol [Vitamin D3 (25 3,000 unit PO PC-BRKFST 08/26/18 11/11/19 Mcg = 1000 Iu)] Isosorbide Mononitrate ER [Imdur] 30 mg PO DAILY 01/16/19 11/11/19 Pantoprazole [Protonix] 40 mg PO BID 01/16/19 11/11/19 Montelukast [Singulair] 10 mg PO HS 02/12/19 11/11/19 Loratadine [Claritin] 10 mg PO DAILY 03/28/19 11/11/19 Metoprolol Tartrate [Lopressor] 100 mg PO BID 03/28/19 11/11/19 Ipratropium-Albuterol Nebulize 3 ml INHALATION RT-QID PRN 06/12/19 11/11/19 [Duoneb 0.5 mg-3 mg/3 ml Soln] Diltiazem Oral [Cardizem*] 90 mg PO BID 06/24/19 11/11/19 Vitamin B Complex 1 cap PO DAILY 06/24/19 11/11/19 allopurinoL [Zyloprim] 100 mg PO DAILY 06/24/19 11/11/19 Aspirin [Adult Low Dose Aspirin EC] 81 mg PO HS 08/01/19 11/11/19 Magnesium Citrate 300 mg PO DAILY 08/01/19 11/11/19 Ubidecarenone [Co Q-10] 100 mg PO DAILY 08/01/19 11/11/19 Betamethasone Dipropionate 1 applic TOPICAL DAILY 11/11/19 11/11/19 [Betamethasone Diprop Augm Gel 0.05%] Flecainide [Tambocor] 50 mg PO Q12HR 11/11/19 11/11/19 INSULIN LISPRO (humaLOG) [humaLOG] See Protocol SQ AC-TID 11/11/19 11/11/19 Pravastatin Sodium [Pravachol] 40 mg PO DAILY 11/11/19 11/11/19 Previous Rx's Medication Instructions Recorded hydrALAZINE HCL [Apresoline] 100 mg PO TID #90 tab 06/07/18 Nitroglycerin Sl Tabs [Nitrostat] 0.4 mg SUBLINGUAL Q5M PRN #25 tab 06/28/18 Apixaban [Eliquis] 5 mg PO BID #60 tab 04/03/19 Furosemide [Lasix] 40 mg PO BID@0900,1600 #60 tab 04/10/19 Albuterol Sulfate [Proair Hfa] 2 puff INHALATION Q6HR #1 inhaler 11/14/19 Azithromycin [Zithromax Z-pack (6 0 mg PO DIRECTED #6 tab 09/27/20 tabs)] Azithromycin [Zithromax Z-pack (6 250 mg PO DIRECTED #6 tab 01/17/21 tabs)] Allergies Allergy/AdvReac Type Severity Reaction Status Date / Time amoxicillin Allergy Anaphylaxis Verified 01/17/21 01:45 cephalexin monohydrate Allergy Rash/Hives Verified 01/17/21 01:45 [From Keflex] clindamycin Allergy Rash/Hives Verified 01/17/21 01:45 Penicillins Allergy Rash/Hives Verified 01/17/21 01:45 Sulfa (Sulfonamide Allergy Anaphylaxis Verified 01/17/21 01:45 Antibiotics) sulfamethoxazole Allergy Anaphylaxis Verified 01/17/21 01:45 [From Bactrim] trimethoprim [From Bactrim] Allergy Anaphylaxis Verified 01/17/21 01:45 amlodipine AdvReac Swelling Verified 01/17/21 01:45 carvedilol AdvReac "MAKES ME Verified 01/17/21 01:45 JERILYN" Review of Systems ROS Statement: Those systems with pertinent positive or pertinent negative responses have been documented in the HPI. ROS Other: All systems not noted in ROS Statement are negative. Constitutional: Denies: fever, chills Eyes: Denies: eye pain ENT: Reports: epistaxis Respiratory: Denies: cough, dyspnea Cardiovascular: Denies: chest pain, palpitations Gastrointestinal: Denies: abdominal pain, vomiting Neurological: Denies: headache Hematological/Lymphatic: Reports: easy bleeding Past Medical History Past Medical History: Atrial Fibrillation, Coronary Artery Disease (CAD), Chest Pain / Angina, Heart Failure, COPD, Diabetes Mellitus, GERD/Reflux, Hyperlipidemia, Hypertension, Liver Disease, Myocardial Infarction (PA), Prostate Disorder, Renal Disease, Skin Disorder, Vascular Disorder Additional Past Medical History / Comment(s): history ofAfib with RVR, tachybrady syndrome with pacemaker, IDDM type II, neuropathy bilateral feet, stage III chronic kidney disease, chronic CHF, R pleural effusion, liver cirrhosis, BPH, DJD, herniated discs low back, chronic low back pain, varicose veins , anemia with hx of iron infusions., past asbestos exposure, celiac disease, dermatitis herpetiformis. Last Myocardial Infarction Date:: 06/2018 History of Any Multi-Drug Resistant Organisms: None Reported Past Surgical History: Ablation, Cardiac Ablation, Cholecystectomy, Heart Catheterization With Stent, Pacemaker, Tonsillectomy Additional Past Surgical History / Comment(s): PCI with STENTS x 3, bilateral cataracts removed with lens implants, colonoscopy, [employer]tr[employer] pacemaker Past Anesthesia/Blood Transfusion Reactions: No Reported Reaction Date of Last Stent Placement:: 2017 Type of Cardiac Device: Permanent Pacemaker Device Placement Date:: 02/02/19 Past Psychological History: No Psychological Hx Reported Smoking Status: Former smoker Past Alcohol Use History: None Reported Past Drug Use History: None Reported - Past Family History Mother Family Medical History: Diabetes Mellitus Father Family Medical History: Myocardial Infarction (PA) Additional Family Medical History / Comment(s): Father had a PA in his 70s. Brother(s) Family Medical History: Myocardial Infarction (PA) Additional Family Medical History / Comment(s): Brother had a PA in his 50s. General Exam Limitations: no limitations General appearance: alert, in no apparent distress Head exam: Present: atraumatic, normocephalic Eye exam: Present: normal appearance. Absent: scleral icterus, conjunctival injection ENT exam: Present: normal oropharynx, other (Clot left naris) Neck exam: Present: normal inspection, full ROM Respiratory exam: Present: normal lung sounds bilaterally. Absent: respiratory distress, wheezes, rales, rhonchi, stridor Cardiovascular Exam: Present: regular rate, normal rhythm, normal heart sounds. Absent: systolic murmur, diastolic murmur, rubs, gallop Back exam: Present: normal inspection. Absent: CVA tenderness (R), CVA tenderness (L) Neurological exam: Present: alert Skin exam: Present: warm, dry, intact, normal color. Absent: rash Course Vital Signs 01/17/21 01/17/21 01:45 03:25 Temperature 97.6 F 98 F Pulse Rate 89 82 Respiratory 16 16 Rate Blood Pressure 149/78 138/71 O2 Sat by Pulse 97 98 Oximetry Medical Decision Making - Medical Decision Making Patient is 65-year-old man presenting for second time today with left-sided epistaxis. The clot is removed and there is no source of bleeding observed. Patient did request to have packing placed. I did attempt to place a Rhino Rocket which did not fit, and then placed a nasal tampon which resulted in good hemostasis. Discussed appropriate further care and follow-up. Disposition Clinical Impression: Epistaxis Disposition: HOME SELF-CARE Condition: Good Instructions (If sedation given, give patient instructions): Nosebleed (ED) Prescriptions: Azithromycin [Zithromax Z-pack (6 tabs)] 250 mg PO DIRECTED #6 tab Is patient prescribed a controlled substance at d/c from ED?: No Referrals: Ivy Valentine DO [Primary Care Provider] - 1-2 days Parag Santana MD [STAFF PHYSICIAN] - 1-2 days
[2021-01-17 03:30] VITALS: BP 138/71; PULSE 82; TEMP 98
== END 2021-01-17 03:25 | disposition home or self-care (01) ==
LOC: EC 01:42
DX: R04.0 Epistaxis (principal); I13.0 Hypertensive heart and chronic kidney disease with heart failure and stage 1 through stage 4 chronic kidney disease, or unspecified chronic kidney disease; E11.22 Type 2 diabetes mellitus with diabetic chronic kidney disease; E11.40 Type 2 diabetes mellitus with diabetic neuropathy, unspecified; I25.119 Atherosclerotic heart disease of native coronary artery with unspecified angina pectoris; N18.30 Chronic kidney disease, stage 3 unspecified; J44.9 Chronic obstructive pulmonary disease, unspecified; E78.5 Hyperlipidemia, unspecified; I48.20 Chronic atrial fibrillation, unspecified; G89.29 Other chronic pain; M54.5 Low back pain; I50.9 Heart failure, unspecified; K21.9 Gastro-esophageal reflux disease without esophagitis; I25.2 Old myocardial infarction; Z79.51 Long term (current) use of inhaled steroids; Z79.4 Long term (current) use of insulin; Z79.899 Other long term (current) drug therapy; Z79.82 Long term (current) use of aspirin; Z88.0 Allergy status to penicillin; Z88.1 Allergy status to other antibiotic agents; Z88.2 Allergy status to sulfonamides; Z88.8 Allergy status to other drugs, medicaments and biological substances; Z87.891 Personal history of nicotine dependence
CPT/HCPCS: 99283

== ENCOUNTER → 2021-04-27 | Outpatient (CLI) | payer MEDICARE ==
--- NOTE | 2021-04-27 15:54 | US ---
EXAMINATION TYPE: US kidneys/renal and bladder DATE OF EXAM: 04/27/2021 COMPARISON: Ultrasound abdomen 06/06/2018 CT chest 02/15/2019 CLINICAL HISTORY: N18.4 stage IV kidney disease. EXAM MEASUREMENTS: Right Kidney: 9.6 x 6.1 x 4.6 cm Left Kidney: 10.7 x 5.9 x 4.6 cm Right Kidney: No hydronephrosis or masses seen Left Kidney: No hydronephrosis or masses seen Bladder: wnl Bilateral Jets seen: No No hydronephrosis or shadowing renal calculi. Renal cortices are not significantly thinned. IMPRESSION: 1. No hydronephrosis or shadowing renal calculi. The kidneys are relatively symmetric. No significant cortical renal thinning. 2. The ureteral jets are not seen.
== END ==
LOC: RADUSWWP 10:11
PROVIDERS: ATTEND Internal Medicine Nephrology
DX: N18.4 Chronic kidney disease, stage 4 (severe) (principal)
CPT/HCPCS: 76770

== ENCOUNTER 2021-07-25 08:34 | Observation (INO) | payer MEDICARE ==
[2021-07-25 08:38] VITALS: RESP 18
--- NOTE | 2021-07-25 09:34 | ED ---
General Adult HPI - General Source: patient, RN notes reviewed Mode of arrival: ambulatory Limitations: no limitations <Andrew Aguillon - Last Filed: 07/25/21 12:05> <Mimi Thompson - Last Filed: 07/31/21 14:51> - General Chief complaint: Abdominal Pain Stated complaint: abd issues Time Seen by Provider: 07/25/21 08:42 - History of Present Illness Initial comments: 66-year-old male with an extensive past medical history including atrial fibrillation, CAD, heart failure, diabetes mellitus with CK D, hyperlipidemia, hypertension, cirrhosis presents to the emergency room for upper abdominal pressure. Patient reports for the past 3 days or so he has had upper abdominal pressure. States it is worst in the morning. He then takes Gas-X and throughout the day the pressure seems to get better. However last night he was not getting any sleep because of this. States he feels like he cannot get a full breath because of the pressure in his upper abdomen. He denies chest pain.Patient has no other complaints at this time including shortness of breath, chest pain, nausea or vomiting, headache, or visual changes. (Andrew Aguillon) - Related Data Home Medications Medication Instructions Recorded Confirmed Fluticasone Nasal [place] [Flonase 1 spr EA NOSTRIL DAILY PRN 05/12/16 07/26/21 Nasal [place]] Cholecalciferol [Vitamin D3 (25 75 mcg PO PC-BRKFST 08/26/18 07/26/21 Mcg = 1000 Iu)] Isosorbide Mononitrate ER [Imdur] 30 mg PO DAILY 01/16/19 07/26/21 Pantoprazole [Protonix] 40 mg PO DAILY 01/16/19 07/26/21 Montelukast [Singulair] 10 mg PO HS 02/12/19 07/26/21 Loratadine [Claritin] 10 mg PO DAILY 03/28/19 07/26/21 Metoprolol Tartrate [Lopressor] 50 mg PO BID 03/28/19 07/26/21 Ipratropium-Albuterol Nebulize 3 ml INHALATION RT-QID PRN 06/12/19 07/26/21 [Duoneb 0.5 mg-3 mg/3 ml Soln] Vitamin B Complex 1 cap PO DAILY 06/24/19 07/26/21 allopurinoL [Zyloprim] 100 mg PO BID 06/24/19 07/26/21 Ubidecarenone [Co Q-10] 100 mg PO DAILY 08/01/19 07/26/21 Flecainide [Tambocor] 50 mg PO Q12H 11/11/19 07/26/21 Pravastatin Sodium [Pravachol] 20 mg PO DAILY 11/11/19 07/26/21 Albuterol Sulfate [Ventolin HFA] 1 - 2 puff INHALATION RT-Q6H PRN 07/25/21 07/26/21 Fluticasone/Salmeterol 1 puff INHALATION DIRECTED 07/25/21 07/26/21 [Fluticasone-Salmeterol 232-14] Folic Acid 0.4 mg PO DAILY 07/25/21 07/26/21 Magnesium Oxide [Goss] 500 mg PO DAILY 07/25/21 07/26/21 Rivaroxaban [Xarelto] 15 mg PO DAILY 07/25/21 07/26/21 dilTIAZem HCL 90 mg PO BID 07/25/21 07/26/21 hydrALAZINE HCL [Apresoline] 100 mg PO TID 07/25/21 07/26/21 Nitroglycerin Sl Tabs [Nitrostat] 0.4 mg SL Q5M PRN 07/26/21 07/26/21 Previous Rx's Medication Instructions Recorded Furosemide [Lasix] 40 mg PO BID@0900,1600 #60 tab 04/10/19 Ipratropium-Albuterol Nebulize 3 ml INHALATION RT-QID 30 Days #90 07/30/21 [Duoneb 0.5 mg-3 mg/3 ml Soln] ml Lactobacillus Acidoph & Bulgar 1 packet PO DAILY 30 Days #30 07/30/21 [Lactinex] packet Levofloxacin [Levaquin] 750 mg PO Q48H 7 Days #7 tab 07/30/21 Allergies Allergy/AdvReac Type Severity Reaction Status Date / Time amlodipine Allergy Swelling Verified 07/26/21 16:32 amoxicillin Allergy Anaphylaxis Verified 07/26/21 16:32 cephalexin monohydrate Allergy Rash/Hives Verified 07/26/21 16:32 [From Keflex] clindamycin Allergy Rash/Hives Verified 07/26/21 16:32 Penicillins Allergy Rash/Hives Verified 07/26/21 16:32 Sulfa (Sulfonamide Allergy Anaphylaxis Verified 07/26/21 16:32 Antibiotics) sulfamethoxazole Allergy Anaphylaxis Verified 07/26/21 16:32 [From Bactrim] trimethoprim [From Bactrim] Allergy Anaphylaxis Verified 07/26/21 16:32 carvedilol AdvReac "MAKES ME Verified 07/26/21 16:32 JERILYN" Review of Systems ROS Other: All systems not noted in ROS Statement are negative. <Andrew Aguillon - Last Filed: 07/25/21 12:05> ROS Other: All systems not noted in ROS Statement are negative. <Mimi Thompson - Last Filed: 07/31/21 14:51> ROS Statement: Those systems with pertinent positive or pertinent negative responses have been documented in the HPI. Past Medical History Past Medical History: Atrial Fibrillation, Coronary Artery Disease (CAD), Chest Pain / Angina, Heart Failure, COPD, Diabetes Mellitus, GERD/Reflux, Hyperlipidemia, Hypertension, Liver Disease, Myocardial Infarction (SD), Prostate Disorder, Renal Disease, Skin Disorder, Vascular Disorder Additional Past Medical History / Comment(s): history ofAfib with RVR, tachybrady syndrome with pacemaker, IDDM type II, neuropathy bilateral feet, stage III chronic kidney disease, chronic CHF, R pleural effusion, liver cirrhosis, BPH, DJD, herniated discs low back, chronic low back pain, varicose v eins , anemia with hx of iron infusions., past asbestos exposure, celiac disease, dermatitis herpetiformis. Last Myocardial Infarction Date:: 06/2018 History of Any Multi-Drug Resistant Organisms: None Reported Past Surgical History: Ablation, Cardiac Ablation, Cholecystectomy, Heart Catheterization With Stent, Pacemaker, Tonsillectomy Additional Past Surgical History / Comment(s): PCI with STENTS x 3, bilateral cataracts removed with lens implants, colonoscopy, Medtr[employer] pacemaker Past Anesthesia/Blood Transfusion Reactions: No Reported Reaction Date of Last Stent Placement:: 2017 Type of Cardiac Device: Permanent Pacemaker Device Placement Date:: 02/02/19 Past Psychological History: No Psychological Hx Reported Smoking Status: Former smoker Past Alcohol Use History: None Reported Past Drug Use History: None Reported - Past Family History Mother Family Medical History: Diabetes Mellitus Father Family Medical History: Myocardial Infarction (SD) Additional Family Medical History / Comment(s): Father had a SD in his 70s. Brother(s) Family Medical History: Myocardial Infarction (SD) Additional Family Medical History / Comment(s): Brother had a SD in his 50s. <Andrew Aguillon - Last Filed: 07/25/21 12:05> General Exam Limitations: no limitations General appearance: alert, in no apparent distress Head exam: Present: atraumatic Eye exam: Present: normal appearance, PERRL, EOMI. Absent: scleral icterus, conjunctival injection ENT exam: Present: normal exam, mucous membranes moist Neck exam: Present: normal inspection, full ROM. Absent: tenderness, meningismus Respiratory exam: Present: normal lung sounds bilaterally. Absent: respiratory distress, wheezes Cardiovascular Exam: Present: regular rate, normal rhythm, normal heart sounds GI/Abdominal exam: Present: soft, distended (mild distension upper abdomen), normal bowel sounds. Absent: tenderness Neurological exam: Present: alert <Andrew Aguillon - Last Filed: 07/25/21 12:05> Course Vital Signs 07/25/21 08:35 Temperature 98.1 F Pulse Rate 70 Respiratory 18 Rate Blood Pressure 144/71 O2 Sat by Pulse 94 L Oximetry EKG Findings - EKG Comments: EKG Findings:: Sinus bradycardia, ventricular rate 57, AL interval 202, QTC 486 <Andrew Aguillon - Last Filed: 07/25/21 12:05> Medical Decision Making - Lab Data Result diagrams: 07/25/21 09:44 07/25/21 09:44 <Andrew Aguillon - Last Filed: 07/25/21 12:05> - Lab Data Result diagrams: 07/25/21 09:44 07/25/21 09:44 <Mimi Thompson - Last Filed: 07/31/21 14:51> - Medical Decision Making Vitals are stable however oxygen saturation is slightly low. EKG was nonischemic. Laboratory evaluation was unremarkable. Patient does have chronic kidney disease noted. Troponin negative. BNP is baseline. CT chest abdomen pelvis was obtained and findings are worrisome for bronchogenic carcinoma of the left upper lobe, consider pulmonary consultation. There is also cirrhosis and abdominal adenopathy. At this time patient will be admitted further evaluation is the new diagnosis and he continues to feel as if he cannot get a deep breath. (Andrew Aguillon) I was available for consultation in the emergency department. The history and physical exam were done by the midlevel provider. I was consulted for this patients care. I reviewed the case with the midlevel provider and based on their presentation of the patient, I agree with the assessment, medical decision making and plan of care as documented. Chart was dictated using [employer] dictation software. Attempts were made to correct any dictation errors however some typographical errors may persist. Patient was seen during a [facility] due to the Covid-19 pandemic. (Mimi Thompson) - Lab Data Lab Results 07/25/21 07/25/21 07/25/21 Range/Units 09:44 09:44 09:44 WBC 12.5 H (3.8-10.6) k/uL RBC 4.56 (4.30-5.90) m/uL Hgb 14.2 (13.0-17.5) gm/dL Hct 43.7 (39.0-53.0) % MCV 95.8 (80.0-100.0) fL MCH 31.2 (25.0-35.0) pg MCHC 32.6 (31.0-37.0) g/dL RDW 15.0 (11.5-15.5) % Plt Count 177 (150-450) k/uL MPV 9.4 Neutrophils % 84 % Lymphocytes % 5 % Monocytes % 9 % Eosinophils % 0 % Basophils % 0 % Neutrophils # 10.6 H (1.3-7.7) k/uL Lymphocytes # 0.6 L (1.0-4.8) k/uL Monocytes # 1.1 H (0-1.0) k/uL Eosinophils # 0.0 (0-0.7) k/uL Basophils # 0.0 (0-0.2) k/uL PT (9.0-12.0) sec INR (<1.2) APTT (22.0-30.0) sec Sodium 131 L (137-145) mmol/L Potassium 4.3 (3.5-5.1) mmol/L Chloride 94 L (98-107) mmol/L Carbon Dioxide 25 (22-30) mmol/L Anion Gap 12 mmol/L BUN 41 H (9-20) mg/dL Creatinine 1.92 H (0.66-1.25) mg/dL Est GFR (CKD-EPI)AfAm 41 (>60 ml/min/1.73 sqM) Est GFR (CKD-EPI)NonAf 36 (>60 ml/min/1.73 sqM) Glucose 131 H (74-99) mg/dL Calcium 9.7 (8.4-10.2) mg/dL Magnesium 1.9 (1.6-2.3) mg/dL Total Bilirubin 2.1 H (0.2-1.3) mg/dL AST 68 H (17-59) U/L ALT 86 H (4-49) U/L Alkaline Phosphatase 206 H (38-126) U/L Troponin I 0.033 (0.000-0.034) ng/mL NT-Pro-B Natriuret Pep pg/mL Total Protein 6.4 (6.3-8.2) g/dL Albumin 4.2 (3.5-5.0) g/dL Lipase 339 H (23-300) U/L 07/25/21 07/25/21 Range/Units 09:44 10:30 WBC (3.8-10.6) k/uL RBC (4.30-5.90) m/uL Hgb (13.0-17.5) gm/dL Hct (39.0-53.0) % MCV (80.0-100.0) fL MCH (25.0-35.0) pg MCHC (31.0-37.0) g/dL RDW (11.5-15.5) % Plt Count (150-450) k/uL MPV Neutrophils % % Lymphocytes % % Monocytes % % Eosinophils % % Basophils % % Neutrophils # (1.3-7.7) k/uL Lymphocytes # (1.0-4.8) k/uL Monocytes # (0-1.0) k/uL Eosinophils # (0-0.7) k/uL Basophils # (0-0.2) k/uL PT 12.3 H (9.0-12.0) sec INR 1.2 H (<1.2) APTT 29.5 (22.0-30.0) sec Sodium (137-145) mmol/L Potassium (3.5-5.1) mmol/L Chloride (98-107) mmol/L Carbon Dioxide (22-30) mmol/L Anion Gap mmol/L BUN (9-20) mg/dL Creatinine (0.66-1.25) mg/dL Est GFR (CKD-EPI)AfAm (>60 ml/min/1.73 sqM) Est GFR (CKD-EPI)NonAf (>60 ml/min/1.73 sqM) Glucose (74-99) mg/dL Calcium (8.4-10.2) mg/dL Magnesium (1.6-2.3) mg/dL Total Bilirubin (0.2-1.3) mg/dL AST (17-59) U/L ALT (4-49) U/L Alkaline Phosphatase (38-126) U/L Troponin I (0.000-0.034) ng/mL NT-Pro-B Natriuret Pep 3150 pg/mL Total Protein (6.3-8.2) g/dL Albumin (3.5-5.0) g/dL Lipase (23-300) U/L Disposition Is patient prescribed a controlled substance at d/c from ED?: No Time of Disposition: 12:06 <Andrew Aguillon P - Last Filed: 07/25/21 12:05> <Mimi Thompson - Last Filed: 07/31/21 14:51> Clinical Impression: Abdominal discomfort, Dyspnea, Lung mass Disposition: ADMITTED IP TO THIS HOSP
[2021-07-25 10:18] LABS: Albumin 4.2 g/dL (3.5-5.0); Calcium 9.7 mg/dL (8.4-10.2); Magnesium 1.9 mg/dL (1.6-2.3); Potassium 4.3 mmol/L (3.5-5.1); Total Bilirubin 2.1 mg/dL (0.2-1.3); Total Protein 6.4 g/dL (6.3-8.2)
[2021-07-25 10:20] LABS: Basophils % (A) 0 %; Eosinophils % (A) 0 %; HCT 43.7 % (39.0-53.0); HGB 14.2 gm/dL (13.0-17.5); Lymphocytes # (A) 0.6 k/uL (1.0-4.8); Lymphocytes % (A) 5 %; MCH 31.2 pg (25.0-35.0); MCHC 32.6 g/dL (31.0-37.0); MCV 95.8 fL (80.0-100.0); Mean Platelet Volume 9.4; Monocytes # (A) 1.1 k/uL (0-1.0); Monocytes % (A) 9 %; Neutrophils # (A) 10.6 k/uL (1.3-7.7); Neutrophils % (A) 84 %; Platelet Count 177 k/uL (150-450); RBC 4.56 m/uL (4.30-5.90); WBC 12.5 k/uL (3.8-10.6)
--- NOTE | 2021-07-25 10:42 | XR ---
EXAMINATION TYPE: XR chest 2V DATE OF EXAM: 07/25/2021 COMPARISON: Chest x-ray 11/13/2019 HISTORY: Chest pain TECHNIQUE: Frontal and lateral views of the chest are obtained. FINDINGS: There is airspace disease in the left mid lung. Elevation of right hemidiaphragm is chroni c. Cardiac mediastinal silhouette is within normal limits. There is a generator in the left pectoral region, leads are present in the right atrium and ventricle. No evident pneumothorax. Difficult to ex clude small left pleural effusion. Prominent lung volumes may be indicative of underlying COPD. IMPRESSION: Left upper lobe pneumonia, there may be parapneumonic effusion, follow-up to resolution to exclude underlying mass.
[2021-07-25 10:50] LABS: INR 1.2 (<1.2); Partial Thromboplastin Time 29.5 sec (22.0-30.0); Prothrombin Time 12.3 sec (9.0-12.0)
--- NOTE | 2021-07-25 11:01 | CT ---
EXAMINATION TYPE: CT ChestAbdPelvis wo con DATE OF EXAM: 07/25/2021 COMPARISON: CT 02/15/2019, chest x-ray 07/25/2021 HISTORY: Abdominal pressure, shortness of breath CT DLP: 848.5 mGycm. Automated Exposure Control for Dose Reduction was Utilized. TECHNIQUE: CT scan of the thorax, abdomen and pelvis is performed without IV contrast. FINDINGS: Lack of intravenous contrast could compromise sensitivity LUNGS: The left upper lobe shows some nodular density some peripheral soft tissue is present extendin g to the pleural margin, there is irregular soft tissue present with some abnormal attenuation extend ing from the left hilum. There is a small left pleural effusion, some subpleural nodularity also pres ent in the left lower lobe with some groundglass density present. Emphysematous changes are present g reater in the right lung. The tracheobronchial tree is patent. MEDIASTINUM: There is aorticopulmonary window, prevascular adenopathy. Suspect left hilar adenopathy . No pericardial effusion is seen. Generator is present in left pectoral region, there are leads in the right atrium and ventricle, dense coronary artery calcifications. OTHER: No additional significant abnormality is seen. LIVER/GB: Liver shows a nodular contour as on prior exam, patient is post cholecystectomy. PANCREAS: No significant abnormality is seen. SPLEEN: No significant abnormality is seen. ADRENALS: No significant abnormality is seen. KIDNEYS: No significant abnormality is seen. Dense vascular calcifications are suspected BOWEL: Diverticular changes associated with the sigmoid colon GENITAL ORGANS: No gross abnormality se en. LYMPH NODES: Some adenopathy is present along the lesser curvature of the stomach, upper abdomen with in the mesentery OSSEOUS STRUCTURES: No significant abnormality is seen. OTHER: Increased attenuation in the subcutaneous fat along the lower abdominal wall may be due to antoinette lulitis or subcutaneous injections. IMPRESSION: Findings worrisome for bronchogenic carcinoma left upper lobe over pneumonia, consider pu lmonary consult. Cirrhosis and abdominal adenopathy.
[2021-07-25] MEDS ORDERED: NALOXONE 0.4 MG/ML 1 ML VIAL IV PRN (12:06)
[2021-07-25] MEDS ORDERED: FLUTICASONE 50MCG/SPRAY NASAL 16GM EA NOSTRIL PRN (12:08)
[2021-07-25] MEDS ORDERED: ALBUTEROL NEBULIZED 2.5 MG/3 ML INHALATION PRN (12:08)
[2021-07-25] MEDS ORDERED: INSULIN ASPART (NovoLOG) 100 UNIT/ML VIAL SQ SCH (12:30)
--- NOTE | 2021-07-25 13:30 | P.CNPUL ---
History of Present Illness Consult date: 07/25/21 Reason for consult: lung mass History of present illness: 66-year-old male patient is well-known to me. The patient also sees Dr. Queen in our office regarding his COPD. Is known to have multiple medical problems. He is known to have CAD, previous history approximately atrial fibrillation has been maintained on Xarelto on outpatient basis and the patient has chronic stage III kidney disease, congestion heart failure diastolic failure, diabetes mellitus, hypertension, hyperlipidemia and chronic liver disease in the form of the liver cirrhosis. The patient was having some gastric symptoms and abdominal symptoms over this past few days. He felt that he was getting progressively more bloated. This was affecting his breathing as the patient gets more bloated and distended causing more difficulty in breathing. No cough. No sputum p roduction. No chest pain. No hemoptysis. No pleurisy. No fever. No chills. His been having regular bowel movements. No bloody stool. No melanotic stool. No ascites. No altered mentation. His been eating regularly. He came into the emergency for further investigation. His blood work showed no significant abnormalities. His white count was at 12.5 with hemoglobin of 14.2. Creatinine is at 1.9 consistent with chronic kidney disease. Potassium level is at 4.3. Lipase is 339. Troponin is negative. LFTs show an AST of 68, ALT of 86, alkaline phosphatase of 206, magnesium is at 1.9 and a glucose of 131. The patient is postcholecystectomy. He is an ex-alcohol drinker and has been drinking no alcohol for the past 5 years at least. He on and off, he continues to drink beer socially. As part of further workup, CAT scan of the chest abdomen and pelvis was done. This was done without contrast. The CAT scan showed a left upper lobe nodular density with some peripheral soft tissue extension into the pleural margin. This is a irregular soft tissue density extending proximally into the left hilum. There is also small left-sided pleural effusion. There is also evidence of subpleural noted that the on the left. There is background COPD. No clear mediastinal lymphadenopathy although suspected left hilar lymphadenopathy, hard to characterize because of absence of contrast. His liver has no other contour consistent with previous alcoholism. He is postcholecystectomy. CAT scan of the abdomen shows no abnormalities. Pancreas is normal. Spleen is normal. Bowels are within normal limits. The patient is currently on room air oxygen. He is hemodynamically stable. He has no other complaints otherwise. Review of Systems Constitutional: Reports fatigue, Reports poor appetite, Reports weakness, Reports weight gain Eyes: denies as per HPI, denies blurred vision, denies bulging eye, denies decreased vision, denies diplopia, denies discharge, denies dry eye, denies irr itation, denies itching, denies pain, denies photophobia, denies loss of peripheral vision, denies loss of vision, denies tunnel vision/blind spots Ears: deny: decreased hearing, ear discharge, earache, tinnitus Ears, nose, mouth and throat: Denies headache, Denies sore throat Cardiovascular: Reports no chest pain. Respiratory: Reports that can dyspnea or chest pain. Gastrointestinal: Reports as per HPI, Reports loss of appetite some abdominal distention bloating. Genitourinary: Reports as per HPI Musculoskeletal: Reports as per HPI Musculoskeletal: bilateral: ankle swelling, absent: ankle pain, ankle stiffness, as per HPI, elbow pain, elbow stiffness, elbow swelling, foot pain, foot stiff ness, foot swelling, hand pain, hand stiffness, hand swelling, hip pain, hip stiffness, hip swelling, knee pain, knee stiffness, knee swelling, shoulder pain, shoulder stiffness, shoulder swelling, wrist pain, wrist stiffness, wrist swelling Integumentary: Denies pruritus, Denies rash Neurological: Reports weakness Psychiatric: Reports as per HPI Endocrine: Reports as per HPI Hematologic/Lymphatic: Reports as per HPI Allergic/Immunologic: Reports as per HPI Past Medical History Past Medical History: Atrial Fibrillation, Coronary Artery Disease (CAD), Chest Pain / Angina, Heart Failure, COPD, Diabetes Mellitus, GERD/Reflux, Hyperlipidemia, Hypertension, Liver Disease, Myocardial Infarction (DE), Prosta te Disorder, Renal Disease, Skin Disorder, Vascular Disorder Additional Past Medical History / Comment(s): history ofAfib with RVR, tachybrady syndrome with pacemaker, IDDM type II, neuropathy bilateral feet, stage III chronic kidney disease, chronic CHF, R pleural effusion, liver cirrhosis, BPH, DJD, herniated discs low back, chronic low back pain, varicose veins , anemia with hx of iron infusions., past asbestos exposure, celiac disease, dermatitis herpetiformis. Last Myocardial Infarction Date:: 06/2018 History of Any Multi-Drug Resistant Organisms: None Reported Past Surgical History: Ablation, Cardiac Ablation, Cholecystectomy, Heart Catheterization With Stent, Pacemaker, Tonsillectomy Additional Past Surgical History / Comment(s): PCI with STENTS x 3, bilateral cataracts removed with lens implants, colonoscopy, [employer] pacemaker Past Anesthesia/Blood Transfusion Reactions: No Reported Reaction Date of Last Stent Placement:: 2017 Type of Cardiac Device: Permanent Pacemaker Device Placement Date:: 02/02/19 Past Psychological History: No Psychological Hx Reported Smoking Status: Former smoker Past Alcohol Use History: None Reported Past Drug Use History: None Reported - Past Family History Mother Family Medical History: Diabetes Mellitus Father Family Medical History: Myocardial Infarction (DE) Additional Family Medical History / Comment(s): Father had a DE in his 70s. Brother(s) Family Medical History: Myocardial Infarction (DE) Additional Family Medical History / Comment(s): Brother had a DE in his 50s. Medications and Allergies Home Medications Medication Instructions Recorded Confirmed Type Insulin Detemir (Levemir) [Levemir] 46 unit SQ HS 08/18/14 07/25/21 History Fluticasone Nasal Stacy [Flonase 1 spray EA NOSTRIL DAILY PRN 05/12/16 07/25/21 History Nasal Stacy] Nitroglycerin Sl Tabs [Nitrostat] 0.4 mg SUBLINGUAL Q5M PRN #25 tab 06/28/18 07/25/21 Rx Cholecalciferol [Vitamin D3 (25 3,000 unit PO PC-BRKFST 08/26/18 07/25/21 History Mcg = 1000 Iu)] Isosorbide Mononitrate ER [Imdur] 30 mg PO DAILY 01/16/19 07/25/21 History Pantoprazole [Protonix] 40 mg PO DAILY 01/16/19 07/25/21 History Montelukast [Singulair] 10 mg PO HS 02/12/19 07/25/21 History Loratadine [Claritin] 10 mg PO DAILY 03/28/19 07/25/21 History Metoprolol Tartrate [Lopressor] 50 mg PO BID 03/28/19 07/25/21 History Furosemide [Lasix] 40 mg PO BID@0900,1600 #60 tab 04/10/19 07/25/21 Rx Ipratropium-Albuterol Nebulize 3 ml INHALATION RT-QID PRN 06/12/19 07/25/21 History [Duoneb 0.5 mg-3 mg/3 ml Soln] Vitamin B Complex 1 cap PO DAILY 06/24/19 07/25/21 History allopurinoL [Zyloprim] 100 mg PO BID 06/24/19 07/25/21 History Ubidecarenone [Co Q-10] 100 mg PO DAILY 08/01/19 07/25/21 History Flecainide [Tambocor] 50 mg PO Q12HR 11/11/19 07/25/21 History INSULIN LISPRO (humaLOG) [humaLOG] See Protocol SQ AC-TID 11/11/19 07/25/21 History Pravastatin Sodium [Pravachol] 20 mg PO DAILY 11/11/19 07/25/21 History Albuterol Sulfate [Ventolin HFA] 1 - 2 puff INHALATION RT-Q6H PRN 07/25/21 07/25/21 History Fluticasone/Salmeterol 1 puff INHALATION DIRECTED 07/25/21 07/25/21 History [Fluticasone-Salmeterol 232-14] Folic Acid 0.4 mg PO DAILY 07/25/21 07/25/21 History Magnesium Oxide [Goss] 500 mg PO DAILY 07/25/21 07/25/21 History Rivaroxaban [Xarelto] 15 mg PO DAILY 07/25/21 07/25/21 History dilTIAZem HCL 90 mg PO BID 07/25/21 07/25/21 History hydrALAZINE HCL [Apresoline] 100 mg PO TID 07/25/21 07/25/21 History Allergies Allergy/AdvReac Type Severity Reaction Status Date / Time amoxicillin Allergy Anaphylaxis Verified 07/25/21 11:30 cephalexin monohydrate Allergy Rash/Hives Verified 07/25/21 11:30 [From Keflex] clindamycin Allergy Rash/Hives Verified 07/25/21 11:30 Penicillins Allergy Rash/Hives Verified 07/25/21 11:30 Sulfa (Sulfonamide Allergy Anaphylaxis Verified 07/25/21 11:30 Antibiotics) sulfamethoxazole Allergy Anaphylaxis Verified 07/25/21 11:30 [From Bactrim] trimethoprim [From Bactrim] Allergy Anaphylaxis Verified 07/25/21 11:30 amlodipine AdvReac Swelling Verified 07/25/21 11:30 carvedilol AdvReac "MAKES ME Verified 07/25/21 11:30 JERILYN" Physical Exam Vitals: Vital Signs Temp Pulse Resp BP Pulse Ox 07/25/21 08:35 98.1 F 70 18 144/71 94 L Intake and Output 07/24/21 07/25/21 07/25/21 22:59 06:59 14:59 Other: Weight 88.451 kg General appearance: alert, in no apparent distress, calm and comfortable Head exam: Present: atraumatic, normocephalic, normal inspection Eye exam: Present: normal appearance, PERRL, EOMI. Absent: scleral icterus, conjunctival injection, periorbital swelling ENT exam: Present: normal exam, mucous membranes moist Neck exam: Present: normal inspection, full ROM. Absent: tenderness, meningismus, lymphadenopathy Respiratory exam: No wheezes. No rhonchi. No crackles. Cardiovascular Exam: Present: irregular rate, normal rhythm, normal heart sounds. Absent: systolic murmur, diastolic murmur, rubs, gallop, clicks GI/Abdominal exam: Present: soft, normal bowel sounds. Absent: distended, tenderness, guarding, rebound, rigid Extremities exam: Present: pedal edema (3+ pitting edema) Neurological exam: Present: alert, oriented X3, CN II-XII intact Psychiatric exam: Present: normal affect, normal mood Results - Laboratory Findings CBC and BMP: 07/25/21 09:44 07/25/21 09:44 PT/INR, D-dimer PT 12.3 sec (9.0-12.0) H 07/25/21 10:30 INR 1.2 (<1.2) H 07/25/21 10:30 Abnormal lab findings: Abnormal Labs 07/25/21 07/25/21 07/25/21 09:44 09:44 10:30 WBC 12.5 H Neutrophils # 10.6 H Lymphocytes # 0.6 L Monocytes # 1.1 H PT 12.3 H INR 1.2 H Sodium 131 L Chloride 94 L BUN 41 H Creatinine 1.92 H Glucose 131 H Total Bilirubin 2.1 H AST 68 H ALT 86 H Alkaline Phosphatase 206 H Lipase 339 H - Diagnostic Findings Chest x-ray: image reviewed CT scan - chest: image reviewed Assessment and Plan Plan: 1 left lung mass finding, seen on a CAT scan of the chest abdomen and pelvis that was done as part of investigation for an abdominal distention and discomfort. The GI workup has been negative and the CAT scan of the abdomen shows no significant abnormalities. He does have some underlying chronic liver cirrhosis with seems to be compensated at this point in time. Nevertheless, there was a finding which suggested a lung mass and this is a nodular irregular lesion and the left upper lobe extending to the pleural surface and sensory to the hilum. The pleural surface itself is irregular and nodular. There is suspicion for malignancy. There is also suspicion for a left hilar lymphadenopathy. This needs to be further investigated. This was absent on a previous CAT scan done in 2019 and obviously this is a new finding. 2 nonspecific abdominal pain and distention with negative workup at least on a CAT scan of the abdomen. There is some liver dysfunction related to chronic liver disease. 3 coronary artery disease with previous coronary intervention and stenting 4 chronic kidney disease, stage III secondary to diabetic nephropathy 5 COPD which is currently inactive in stable 6 chronic right hemidiaphragmatic elevation/paralysis 7 paroxysmal atrial fibrillation current rhythm is paced and the patient is demented on long-term medical condition with Eliquis 8 history of tachybradycardia syndrome past pacemaker insertion 9 hypertensive heart disease with LV concentric hypertrophy 10 diabetes mellitus 11 hypertension 12 hyperlipidemia 13 osteoarthritis with previous history of herniated disc involving lower back Plan Okay for discharge from the pulmonary standpoint Outpatient PET scan Outpatient workup for lung mass with a possibility of a lung biopsy. Resume all medications for now. We'll continue to follow outpatient
[2021-07-25 15:06] VITALS: BP 167/85; PULSE 73; TEMP 98.7
[2021-07-25] MEDS ORDERED: hydrALAZINE HCL 50 MG TAB PO SCH (16:00)
[2021-07-25] MEDS ORDERED: FUROSEMIDE 40 MG TAB PO SCH (16:00)
[2021-07-25] MEDS ORDERED: SYMBICORT 160-4.5 MCG INHALER INHALATION SCH (20:00)
[2021-07-25] MEDS ORDERED: MONTELUKAST 10 MG TAB PO SCH (21:00)
[2021-07-25] MEDS ORDERED: allopurinoL 100 MG TAB PO SCH (21:00)
[2021-07-25] MEDS ORDERED: FLECAINIDE 50 MG TAB PO SCH (21:00)
[2021-07-25] MEDS ORDERED: DILTIAZEM ORAL 30 MG TAB PO SCH (21:00)
[2021-07-25] MEDS ORDERED: METOPROLOL TARTRATE 50 MG TAB PO SCH (21:00)
[2021-07-26] MEDS ORDERED: PANTOPRAZOLE 40 MG TABLET PO SCH (07:30)
[2021-07-26] MEDS ORDERED: CHOLECALCIFEROL 25 MCG (1000 IU) TABLET PO SCH (08:30)
[2021-07-26] MEDS ORDERED: NON FORMULARY DRUG (Vitamin B Complex [Vitamin B Complex] 1 EACH Capsule) PO SCH (09:00)
[2021-07-26] MEDS ORDERED: ISOSORBIDE MONONITRATE ER 30 MG TAB.ER.24H PO SCH (09:00)
[2021-07-26] MEDS ORDERED: PRAVASTATIN SODIUM 20 MG TAB PO SCH (09:00)
[2021-07-26] MEDS ORDERED: NON FORMULARY DRUG (Ubidecarenone [Co Q-10] 100 MG Capsule) PO SCH (09:00)
[2021-07-26] MEDS ORDERED: LORATADINE 10 MG TAB PO SCH (09:00)
[2021-07-26] MEDS ORDERED: RIVAROXABAN 15 MG TAB PO SCH (09:00)
[2021-07-26] MEDS ORDERED: MAGNESIUM OXIDE 400 MG TAB PO SCH (12:00)
[2021-07-26] MEDS ORDERED: FOLIC ACID 1 MG TAB PO SCH (12:00)
--- NOTE | 2021-08-17 15:04 | P.HPIM ---
History of Present Illness H&P Date: 07/25/21 Chief Complaint: Abdominal discomfort Patient is a 66-year-old male with a known history of paroxysmal atrial fibrillation on anticoagulation with Xarelto, history of ablation, coronary artery disease with stent placement, tachybradycardia syndrome with history of pacemaker placement, hypertension, diabetes type 2, bilateral peripheral neuropathy, COPD and previous history of smoking, chronic liver disease and liver cirrhosis presents to ER with complaints of abdominal discomfort and bloating sensation. Patient is also complaining of difficulty in breathing. No cough or sputum production. No complaints of chest pain or shortness of breath. No fever no chills. Denies any hematemesis or melena. CT of the abdomen pelvis and chest was done in the ER showed findings worrisome for bronchogenic carcinoma left upper lobe lobar pneumonia. Consider pulmonary consult. Cirrhosis and abdominal adenopathy. Chest x-ray showed left upper lobe pneumonia. There may be a parapneumonic effusion. Follow-up resolution to exclude underlying mass. EKG showed sinus bradycardia. Laboratory data showed WBC 12.5 hemoglobin 14.1 platelets 177 INR 1.2 Sodium 131 potassium 4.3 chloride 94 BUN 41 and creatinine 1.92 blood sugar is 131 AST 68 ALT 86 and alk phos 206 and troponin 0 0.033 and lipase level is 339 Review of Systems Constitutional: Patient denies any fever or chills . No generalized weakness or weight loss. Abdomen: Patient does have nausea and bloating sensation. No abdominal pain. No diarrhea.. Cardiovascular: Patient denies any chest pain or short of breath no palpitations. Respiratory: patient denied any cough or sputum production. No shortness of breath Neurologic: Patient denied any numbness or tingling headache. Musculoskeletal: No joint swelling or deformity.. Skin: Negative Psychiatric: Negative Endocrine: No heat or cold intolerance. No recent weight gain. Genitourinary: No dysuria or hematuria. All other 14 point ROS negative except the above Past Medical History Past Medical History: Atrial Fibrillation, Coronary Artery Disease (CAD), Chest Pain / Angina, Heart Failure, COPD, Diabetes Mellitus, GERD/Reflux, Hyperlipidemia, Hypertension, Liver Disease, Myocardial Infarction (IN), Prostate Disorder, Renal Disease, Skin Disorder, Vascular Disorder Additional Past Medical History / Comment(s): history ofAfib with RVR, tachybrady syndrome with pacemaker, IDDM type II, neuropathy bilateral feet, stage III chronic kidney disease, chronic CHF, R pleural effusion, liver cirrhosis, BPH, DJD, herniated discs low back, chronic low back pain, varicose veins , anemia with hx of iron infusions., past asbestos exposure, celiac disease, dermatitis herpetiformis. Last Myocardial Infarction Date:: 06/2018 History of Any Multi-Drug Resistant Organisms: None Reported Past Surgical History: Ablation, Cardiac Ablation, Cholecystectomy, Heart Catheterization With Stent, Pacemaker, Tonsillectomy Additional Past Surgical History / Comment(s): PCI with STENTS x 3, bilateral cataracts removed with lens implants, colonoscopy, [employer] pacemaker Past Anesthesia/Blood Transfusion Reactions: No Reported Reaction Date of Last Stent Placement:: 2017 Type of Cardiac Device: Permanent Pacemaker Device Placement Date:: 02/02/19 Past Psychological History: No Psychological Hx Reported Smoking Status: Former smoker Past Alcohol Use History: None Reported Past Drug Use History: None Reported - Past Family History Mother Family Medical History: Diabetes Mellitus Father Family Medical History: Myocardial Infarction (IN) Additional Family Medical History / Comment(s): Father had a IN in his 70s. Brother(s) Family Medical History: Myocardial Infarction (IN) Additional Family Medical History / Comment(s): Brother had a IN in his 50s. Medications and Allergies Home Medications Medication Instructions Recorded Confirmed Type Fluticasone Nasal [place] [Flonase 1 spr EA NOSTRIL DAILY PRN 05/12/16 08/04/21 History Nasal [place]] Cholecalciferol [Vitamin D3 (25 75 mcg PO PC-BRKFST 08/26/18 08/04/21 History Mcg = 1000 Iu)] Isosorbide Mononitrate ER [Imdur] 30 mg PO DAILY 01/16/19 08/04/21 History Pantoprazole [Protonix] 40 mg PO DAILY 01/16/19 08/04/21 History Montelukast [Singulair] 10 mg PO HS 02/12/19 08/04/21 History Loratadine [Claritin] 10 mg PO DAILY 03/28/19 08/04/21 History Metoprolol Tartrate [Lopressor] 50 mg PO BID 03/28/19 08/04/21 History Furosemide [Lasix] 40 mg PO BID@0900,1600 #60 tab 04/10/19 08/04/21 Rx Ipratropium-Albuterol Nebulize 3 ml INHALATION RT-QID PRN 06/12/19 08/04/21 History [Duoneb 0.5 mg-3 mg/3 ml Soln] Vitamin B Complex 1 cap PO DAILY 06/24/19 08/04/21 History allopurinoL [Zyloprim] 100 mg PO BID 06/24/19 08/04/21 History Ubidecarenone [Co Q-10] 100 mg PO DAILY 08/01/19 08/04/21 History Flecainide [Tambocor] 50 mg PO Q12H 11/11/19 08/04/21 History Pravastatin Sodium [Pravachol] 20 mg PO DAILY 11/11/19 08/04/21 History Albuterol Sulfate [Ventolin HFA] 1 - 2 puff INHALATION RT-Q6H PRN 07/25/21 08/04/21 History Fluticasone/Salmeterol 1 puff INHALATION Q48H 07/25/21 08/04/21 History [Fluticasone-Salmeterol 232-14] Folic Acid 0.4 mg PO DAILY 07/25/21 08/04/21 History Magnesium Oxide [Goss] 500 mg PO DAILY 07/25/21 08/04/21 History dilTIAZem HCL 90 mg PO BID 07/25/21 08/04/21 History hydrALAZINE HCL [Apresoline] 100 mg PO TID 07/25/21 08/04/21 History Nitroglycerin Sl Tabs [Nitrostat] 0.4 mg SL Q5M PRN 07/26/21 08/04/21 History Ipratropium-Albuterol Nebulize 3 ml INHALATION RT-QID 30 Days #90 07/30/21 08/04/21 Rx [Duoneb 0.5 mg-3 mg/3 ml Soln] ml Lactobacillus Acidoph & Bulgar 1 packet PO DAILY 30 Days #30 07/30/21 08/04/21 Rx [Lactinex] packet Insulin Detemir (Levemir) [Levemir] 56 unit SQ HS 08/04/21 08/04/21 History Insulin Lispro [humaLOG] See Protocol SQ AC-TID 08/04/21 08/04/21 History Ferrous Gluconate [Fergon] 1 tab PO DAILY 08/06/21 08/06/21 History Aspirin 81 mg PO DAILY #30 08/09/21 Rx Sodium Chloride 0.65% Nasal [Deep 2 spray NASAL QID PRN #7 ml 08/09/21 Rx Sea (Saline)] Spironolactone [Aldactone] 12.5 mg PO DAILY #30 tab 08/09/21 Rx Temazepam [Restoril] 15 mg PO HS PRN #10 cap 08/09/21 Rx Allergies Allergy/AdvReac Type Severity Reaction Status Date / Time amlodipine Allergy Swelling Verified 08/04/21 09:43 amoxicillin Allergy Anaphylaxis Verified 08/04/21 09:43 cephalexin monohydrate Allergy Rash/Hives Verified 08/04/21 09:43 [From Keflex] clindamycin Allergy Rash/Hives Verified 08/04/21 09:43 Penicillins Allergy Rash/Hives Verified 08/04/21 09:43 Sulfa (Sulfonamide Allergy Anaphylaxis Verified 08/04/21 09:43 Antibiotics) sulfamethoxazole Allergy Anaphylaxis Verified 08/04/21 09:43 [From Bactrim] trimethoprim [From Bactrim] Allergy Anaphylaxis Verified 08/04/21 09:43 carvedilol AdvReac "MAKES ME Verified 08/04/21 09:43 LOONEY" Physical Exam Vitals: Vital Signs Temp Pulse Resp BP Pulse Ox 07/25/21 08:35 98.1 F 70 18 144/71 94 L Intake and Output 07/24/21 07/25/21 07/25/21 22:59 06:59 14:59 Other: Weight 88.451 kg PHYSICAL EXAMINATION: Patient is lying in the bed comfortably, no acute distress, awake alert and oriented.. HEENT: Normocephalic. Neck is supple. Pupils reactive. Nostrils clear. Oral cavity is moist. Neck reveals no JVD, carotid bruits, or thyromegaly. CHEST EXAMINATION: Trachea is central. Symmetrical expansion. Lung tobias clear to auscultation and percussion. CARDIAC: Normal S1, S2 with no gallops. No murmurs ABDOMEN: Soft. Bowel sounds normal. No organomegaly. No abdominal bruits. Extremities: reveal no edema. No clubbing or cyanosis Neurologically awake, alert, oriented x3 with well-coordinated movements. No focal deficits noted Skin: No rash or skin lesions. Psychiatric: Coperative. Nonsuicidal Musculoskeletal: No joint swelling or deformity. Normal range of motion. Results CBC & Chem 7: 07/25/21 09:44 07/25/21 09:44 Labs: Abnormal Lab Results - Last 24 Hours (Table) 07/25/21 07/25/21 07/25/21 Range/Units 09:44 09:44 10:30 WBC 12.5 H (3.8-10.6) k/uL Neutrophils # 10.6 H (1.3-7.7) k/uL Lymphocytes # 0.6 L (1.0-4.8) k/uL Monocytes # 1.1 H (0-1.0) k/uL PT 12.3 H (9.0-12.0) sec INR 1.2 H (<1.2) Sodium 131 L (137-145) mmol/L Chloride 94 L (98-107) mmol/L BUN 41 H (9-20) mg/dL Creatinine 1.92 H (0.66-1.25) mg/dL Glucose 131 H (74-99) mg/dL Total Bilirubin 2.1 H (0.2-1.3) mg/dL AST 68 H (17-59) U/L ALT 86 H (4-49) U/L Alkaline Phosphatase 206 H (38-126) U/L Lipase 339 H (23-300) U/L Thrombosis Risk Factor Assmnt - DVT/VTE Prophylaxis DVT/VTE Prophylaxis: Pharmacologic Prophylaxis ordered Assessment and Plan Assessment: Abdominal discomfort, distention and bloating sensation. Work-up negative including CT of the abdomen pelvis showed no acute process. Left upper lobe lung mass versus pneumonia. Bronchogenic carcinoma favored over pneumonia. Left hilar lymphadenopathy Paroxysmal atrial fibrillation on anticoagulation with Xarelto. Currently in sinus rhythm. 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 History of cardiac ablation Hypertension Hyperlipidemia Osteoarthritis Previous history of smoking DVT prophylaxis Plan: Patient is being continued on telemetry monitoring and symptomatic management for nausea and continue PPI. Due to new findings of lung mass pulmonary was consulted. Continue with home medications and insulin sliding scale for better blood sugar control. Continue to follow closely.
--- NOTE | 2021-08-17 15:17 | P.DS ---
Providers Date of admission: 07/25/21 12:07 Expected date of discharge: 07/25/21 Attending physician: Lilibeth Urias Consults: 07/25/21 12:07 Consult Physician Routine Consulting Provider: Reilly Frias Consult Reason/Comments: lung mass Do you want consulting provider notified?: Yes Primary care physician: Ivy Valentine Hospital Course: Discharge diagnosis Abdominal discomfort, distention and bloating sensation. Work-up negative including CT of the abdomen pelvis showed no acute process. Left upper lobe lung mass versus pneumonia. Bronchogenic carcinoma favored over pneumonia. Left hilar lymphadenopathy Paroxysmal atrial fibrillation on anticoagulation with Xarelto. Currently in sinus rhythm. 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 History of cardiac ablation Hypertension Hyperlipidemia Osteoarthritis Previous history of smoking DVT prophylaxis Hospital course Patient is a 66-year-old male with a known history of paroxysmal atrial fibrillation on anticoagulation with Xarelto, history of ablation, coronary artery disease with stent placement, tachybradycardia syndrome with history of pacemaker placement, hypertension, diabetes type 2, bilateral peripheral neuropathy, COPD and previous history of smoking, chronic liver disease and liver cirrhosis presents to ER with complaints of abdominal discomfort and bloating sensation. Patient is also complaining of difficulty in breathing. No cough or sputum production. No complaints of chest pain or shortness of breath. No fever no chills. Denies any hematemesis or melena. CT of the abdomen pelvis and chest was done in the ER showed findings worrisome for bronchogenic carcinoma left upper lobe lobar pneumonia. Consider pulmonary consult. Cirrhosis and abdominal adenopathy. Chest x-ray showed left upper lobe pneumonia. There may be a parapneumonic effusion. Follow-up resolution to exclude underlying mass. EKG showed sinus bradycardia. Laboratory data showed WBC 12.5 hemoglobin 14.1 platelets 177 INR 1.2 Sodium 131 potassium 4.3 chloride 94 BUN 41 and creatinine 1.92 blood sugar is 131 AST 68 ALT 86 and alk phos 206 and troponin 0 0.033 and lipase level is 339 Patient is being continued on telemetry monitoring and symptomatic management for nausea and continue PPI. Due to new findings of lung mass pulmonary was consulted. Continued with home medications and insulin sliding scale for better blood sugar control. Patient did improve clinically with above management. Seen by pulmonary and recommended to follow-up with outpatient PET scan followed by biopsy. Patient is being discharged home. Cleared from pulmonary standpoint. Discharge physical examination was done and vitals reviewed. Patient Condition at Discharge: Good Plan - Discharge Summary New Discharge Prescriptions: Continue Fluticasone Nasal Bostic [Flonase Nasal Bostic] 1 spr EA NOSTRIL DAILY PRN PRN Reason: Allergy Symptoms Cholecalciferol [Vitamin D3 (25 Mcg = 1000 Iu)] 75 mcg PO PC-BRKFST Isosorbide Mononitrate ER [Imdur] 30 mg PO DAILY Pantoprazole [Protonix] 40 mg PO DAILY Montelukast [Singulair] 10 mg PO HS Metoprolol Tartrate [Lopressor] 50 mg PO BID Loratadine [Claritin] 10 mg PO DAILY Furosemide [Lasix] 40 mg PO BID@0900,1600 #60 tab Ipratropium-Albuterol Nebulize [Duoneb 0.5 mg-3 mg/3 ml Soln] 3 ml INHALATION RT-QID PRN PRN Reason: Shortness Of Breath allopurinoL [Zyloprim] 100 mg PO BID Vitamin B Complex 1 cap PO DAILY Ubidecarenone [Co Q-10] 100 mg PO DAILY Pravastatin Sodium [Pravachol] 20 mg PO DAILY Flecainide [Tambocor] 50 mg PO Q12H Albuterol Sulfate [Ventolin HFA] 1 - 2 puff INHALATION RT-Q6H PRN PRN Reason: Shortness Of Breath hydrALAZINE HCL [Apresoline] 100 mg PO TID Folic Acid 0.4 mg PO DAILY Fluticasone/Salmeterol [Fluticasone-Salmeterol 232-14] 1 puff INHALATION Q48H Magnesium Oxide [Goss] 500 mg PO DAILY dilTIAZem HCL 90 mg PO BID No Action Nitroglycerin Sl Tabs [Nitrostat] 0.4 mg SL Q5M PRN PRN Reason: Chest Pain Ipratropium-Albuterol Nebulize [Duoneb 0.5 mg-3 mg/3 ml Soln] 3 ml INHALATION RT-QID 30 Days #90 ml Lactobacillus Acidoph & Bulgar [Lactinex] 1 packet PO DAILY 30 Days #30 packet Insulin Lispro [humaLOG] See Protocol SQ AC-TID Insulin Detemir (Levemir) [Levemir] 56 unit SQ HS Ferrous Gluconate [Fergon] 1 tab PO DAILY Spironolactone [Aldactone] 12.5 mg PO DAILY #30 tab Temazepam [Restoril] 15 mg PO HS PRN #10 cap PRN Reason: Insomnia Aspirin 81 mg PO DAILY #30 Sodium Chloride 0.65% Nasal [Deep Sea (Saline)] 2 spray NASAL QID PRN #7 ml PRN Reason: Dry Nasal Passages Discharge Medication List Fluticasone Nasal Bostic [Flonase Nasal Bostic] 1 spr EA NOSTRIL DAILY PRN 05/12/16 [History] Cholecalciferol [Vitamin D3 (25 Mcg = 1000 Iu)] 75 mcg PO PC-BRKFST 08/26/18 [History] Isosorbide Mononitrate ER [Imdur] 30 mg PO DAILY 01/16/19 [History] Pantoprazole [Protonix] 40 mg PO DAILY 01/16/19 [History] Montelukast [Singulair] 10 mg PO HS 02/12/19 [History] Loratadine [Claritin] 10 mg PO DAILY 03/28/19 [History] Metoprolol Tartrate [Lopressor] 50 mg PO BID 03/28/19 [History] Furosemide [Lasix] 40 mg PO BID@0900,1600 #60 tab 04/10/19 [Rx] Ipratropium-Albuterol Nebulize [Duoneb 0.5 mg-3 mg/3 ml Soln] 3 ml INHALATION RT-QID PRN 06/12/19 [History] Vitamin B Complex 1 cap PO DAILY 06/24/19 [History] allopurinoL [Zyloprim] 100 mg PO BID 06/24/19 [History] Ubidecarenone [Co Q-10] 100 mg PO DAILY 08/01/19 [History] Flecainide [Tambocor] 50 mg PO Q12H 11/11/19 [History] Pravastatin Sodium [Pravachol] 20 mg PO DAILY 11/11/19 [History] Albuterol Sulfate [Ventolin HFA] 1 - 2 puff INHALATION RT-Q6H PRN 07/25/21 [History] Fluticasone/Salmeterol [Fluticasone-Salmeterol 232-14] 1 puff INHALATION Q48H 07/25/21 [History] Folic Acid 0.4 mg PO DAILY 07/25/21 [History] Magnesium Oxide [Goss] 500 mg PO DAILY 07/25/21 [History] dilTIAZem HCL 90 mg PO BID 07/25/21 [History] hydrALAZINE HCL [Apresoline] 100 mg PO TID 07/25/21 [History] Nitroglycerin Sl Tabs [Nitrostat] 0.4 mg SL Q5M PRN 07/26/21 [History] Ipratropium-Albuterol Nebulize [Duoneb 0.5 mg-3 mg/3 ml Soln] 3 ml INHALATION RT-QID 30 Days #90 ml 07/30/21 [Rx] Lactobacillus Acidoph & Bulgar [Lactinex] 1 packet PO DAILY 30 Days #30 packet 07/30/21 [Rx] Insulin Detemir (Levemir) [Levemir] 56 unit SQ HS 08/04/21 [History] Insulin Lispro [humaLOG] See Protocol SQ AC-TID 08/04/21 [History] Ferrous Gluconate [Fergon] 1 tab PO DAILY 08/06/21 [History] Aspirin 81 mg PO DAILY #30 08/09/21 [Rx] Sodium Chloride 0.65% Nasal [Deep Sea (Saline)] 2 spray NASAL QID PRN #7 ml 08/09/21 [Rx] Spironolactone [Aldactone] 12.5 mg PO DAILY #30 tab 08/09/21 [Rx] Temazepam [Restoril] 15 mg PO HS PRN #10 cap 08/09/21 [Rx] Follow up Appointment(s)/Referral(s): Ivy Valentine DO [Primary Care Provider] - 1-2 days Reilly Frias MD [STAFF PHYSICIAN] - 3 Days Discharge Disposition: HOME SELF-CARE
== END 2021-07-25 16:00 | disposition home or self-care (01) ==
LOC: EC 08:34 → 6NMEDSUR 12:07
PROVIDERS: ADMIT Internal Medicine; ATTEND Internal Medicine
DX: R10.10 Upper abdominal pain, unspecified (principal); R91.8 Other nonspecific abnormal finding of lung field; R59.0 Localized enlarged lymph nodes; E11.22 Type 2 diabetes mellitus with diabetic chronic kidney disease; E78.5 Hyperlipidemia, unspecified; I13.0 Hypertensive heart and chronic kidney disease with heart failure and stage 1 through stage 4 chronic kidney disease, or unspecified chronic kidney disease; I25.10 Atherosclerotic heart disease of native coronary artery without angina pectoris; I25.2 Old myocardial infarction; I48.91 Unspecified atrial fibrillation; I50.32 Chronic diastolic (congestive) heart failure; J44.9 Chronic obstructive pulmonary disease, unspecified; K74.60 Unspecified cirrhosis of liver; K90.0 Celiac disease; I49.5 Sick sinus syndrome; N18.30 Chronic kidney disease, stage 3 unspecified; N40.0 Benign prostatic hyperplasia without lower urinary tract symptoms; K21.9 Gastro-esophageal reflux disease without esophagitis; G89.29 Other chronic pain; M54.5 Low back pain; M19.90 Unspecified osteoarthritis, unspecified site; K76.9 Liver disease, unspecified; L13.0 Dermatitis herpetiformis; I83.90 Asymptomatic varicose veins of unspecified lower extremity; Z79.01 Long term (current) use of anticoagulants; Z79.4 Long term (current) use of insulin; Z79.899 Other long term (current) drug therapy; Z88.1 Allergy status to other antibiotic agents; Z88.0 Allergy status to penicillin; Z88.8 Allergy status to other drugs, medicaments and biological substances; Z88.2 Allergy status to sulfonamides; Z77.090 Contact with and (suspected) exposure to asbestos; Z95.5 Presence of coronary angioplasty implant and graft; Z87.891 Personal history of nicotine dependence; Z95.0 Presence of cardiac pacemaker; Z96.1 Presence of intraocular lens; Z98.41 Cataract extraction status, right eye; Z98.42 Cataract extraction status, left eye; Z90.49 Acquired absence of other specified parts of digestive tract; Z82.49 Family history of ischemic heart disease and other diseases of the circulatory system; Z83.3 Family history of diabetes mellitus; Z79.82 Long term (current) use of aspirin
CPT/HCPCS: 99284; 36415; 93005; 83880; 80053; 83690; 83735; 84484; 85025; 85610; 85730; 71046; 71250; 74176; G0378

== ENCOUNTER 2021-07-26 14:16 | Inpatient (IN) | payer MEDICARE ==
[2021-07-26] MEDS ORDERED: methylPREDNISolone SOD SUCCI 125 MG/2 ML VIAL IV STA (15:10)
[2021-07-26] MEDS ORDERED: IPRATROPIUM-ALBUTEROL 3 ML NEB INHALATION STA (15:10)
[2021-07-26] MEDS ORDERED: MAGNESIUM SULFATE-D5W PMX 1 GM in DEXTROSE/WATER 1 100ML.BAG IVPB STA (15:10)
[2021-07-26] MEDS ORDERED: ASPIRIN 81 MG PO STA (15:12)
[2021-07-26 15:54] LABS: Basophils % (A) 0 %; Eosinophils # (A) 0.1 k/uL (0-0.7); Eosinophils % (A) 1 %; HCT 39.8 % (39.0-53.0); HGB 13.6 gm/dL (13.0-17.5); Lymphocytes # (A) 0.6 k/uL (1.0-4.8); Lymphocytes % (A) 5 %; MCH 32.5 pg (25.0-35.0); MCHC 34.1 g/dL (31.0-37.0); MCV 95.2 fL (80.0-100.0); Monocytes # (A) 0.8 k/uL (0-1.0); Monocytes % (A) 6 %; Neutrophils # (A) 11.3 k/uL (1.3-7.7); Neutrophils % (A) 87 %; Platelet Count 156 k/uL (150-450); RBC 4.18 m/uL (4.30-5.90); RDW 14.5 % (11.5-15.5); WBC 13.1 k/uL (3.8-10.6)
[2021-07-26 16:04] LABS: INR 1.1 (<1.2); Partial Thromboplastin Time 31.2 sec (22.0-30.0); Potassium 4.2 mmol/L (3.5-5.1); Prothrombin Time 11.9 sec (9.0-12.0)
[2021-07-26 16:05] LABS: Magnesium 2.2 mg/dL (1.6-2.3); Total Protein 6.7 g/dL (6.3-8.2)
[2021-07-26] MEDS ORDERED: NALOXONE 0.4 MG/ML 1 ML VIAL IV PRN (17:21)
[2021-07-26] MEDS ORDERED: ONDANSETRON 4 MG/2 ML VIAL IVP PRN (17:21)
[2021-07-26] MEDS ORDERED: ACETAMINOPHEN TAB 325 MG TAB PO PRN (17:21)
--- NOTE | 2021-07-26 17:32 | ED ---
General Adult HPI - General Chief complaint: Shortness of Breath Stated complaint: chest tightness, SOB Time Seen by Provider: 07/26/21 14:40 Source: patient, RN notes reviewed, old records reviewed Mode of arrival: ambulatory - History of Present Illness Initial comments: Patient is a 66-year-old male with past medical history remarkable for atrial fibrillation on several toe, CAD, angina, heart failure, COPD, diabetes, hypertension, liver disease, prior MD status post cardiac ablation and heart catheterization, pacemaker placement, prostate disorder, renal disease, skin d jose f who was recently discharged from the hospital over concern for possible pneumonia versus pulmonary mass presents emergency Department complaining of worsening dyspnea over the last day since he was discharged. He states it is worse with exertion. Endorses a nonproductive cough as well. Denies any fevers or chills. States he has nonspecific chest pain, however it seems to be worse with coughing. Endorses some shortness of breath as well. Denies any abdominal pain, nausea, vomiting, diarrhea. He had full follow-up for his possible pulmonary mass, however states that due to acute worsening of his symptoms he presents today for evaluation. He believes that he likely has pneumonia. He does have a history of COPD states that this may be contributed as well. He denies any sick contacts. States he was vaccinated for COVID-19. Illnesses no acute complaints at this time. - Related Data Home Medications Medication Instructions Recorded Confirmed Fluticasone Nasal [place] [Flonase 1 spr EA NOSTRIL DAILY PRN 05/12/16 07/26/21 Nasal [place]] Cholecalciferol [Vitamin D3 (25 75 mcg PO PC-BRKFST 08/26/18 07/26/21 Mcg = 1000 Iu)] Isosorbide Mononitrate ER [Imdur] 30 mg PO DAILY 01/16/19 07/26/21 Pantoprazole [Protonix] 40 mg PO DAILY 01/16/19 07/26/21 Montelukast [Singulair] 10 mg PO HS 02/12/19 07/26/21 Loratadine [Claritin] 10 mg PO DAILY 03/28/19 07/26/21 Metoprolol Tartrate [Lopressor] 50 mg PO BID 03/28/19 07/26/21 Ipratropium-Albuterol Nebulize 3 ml INHALATION RT-QID PRN 06/12/19 07/26/21 [Duoneb 0.5 mg-3 mg/3 ml Soln] Vitamin B Complex 1 cap PO DAILY 06/24/19 07/26/21 allopurinoL [Zyloprim] 100 mg PO BID 06/24/19 07/26/21 Ubidecarenone [Co Q-10] 100 mg PO DAILY 08/01/19 07/26/21 Flecainide [Tambocor] 50 mg PO Q12H 11/11/19 07/26/21 INSULIN LISPRO (humaLOG) [humaLOG] See Protocol SQ AC-TID 11/11/19 07/26/21 Pravastatin Sodium [Pravachol] 20 mg PO DAILY 11/11/19 07/26/21 Albuterol Sulfate [Ventolin HFA] 1 - 2 puff INHALATION RT-Q6H PRN 07/25/21 07/26/21 Fluticasone/Salmeterol 1 puff INHALATION DIRECTED 07/25/21 07/26/21 [Fluticasone-Salmeterol 232-14] Folic Acid 0.4 mg PO DAILY 07/25/21 07/26/21 Magnesium Oxide [Goss] 500 mg PO DAILY 07/25/21 07/26/21 Rivaroxaban [Xarelto] 15 mg PO DAILY 07/25/21 07/26/21 dilTIAZem HCL 90 mg PO BID 07/25/21 07/26/21 hydrALAZINE HCL [Apresoline] 100 mg PO TID 07/25/21 07/26/21 Insulin Detemir [Levemir Flextouch 46 units SQ HS 07/26/21 07/26/21 Pen] Nitroglycerin Sl Tabs [Nitrostat] 0.4 mg SL Q5M PRN 07/26/21 07/26/21 Previous Rx's Medication Instructions Recorded Furosemide [Lasix] 40 mg PO BID@0900,1600 #60 tab 04/10/19 Allergies Allergy/AdvReac Type Severity Reaction Status Date / Time amlodipine Allergy Swelling Verified 07/26/21 16:32 amoxicillin Allergy Anaphylaxis Verified 07/26/21 16:32 cephalexin monohydrate Allergy Rash/Hives Verified 07/26/21 16:32 [From Keflex] clindamycin Allergy Rash/Hives Verified 07/26/21 16:32 Penicillins Allergy Rash/Hives Verified 07/26/21 16:32 Sulfa (Sulfonamide Allergy Anaphylaxis Verified 07/26/21 16:32 Antibiotics) sulfamethoxazole Allergy Anaphylaxis Verified 07/26/21 16:32 [From Bactrim] trimethoprim [From Bactrim] Allergy Anaphylaxis Verified 07/26/21 16:32 carvedilol AdvReac "MAKES ME Verified 07/26/21 16:32 JERILYN" Review of Systems ROS Statement: Those systems with pertinent positive or pertinent negative responses have been documented in the HPI. Review of Systems: CONST: Denies fever EYES: Denies blurry vision ENT: Denies nasal congestion C/V: Endorses chest pain RESP: Endorses cough, shortness of breath GI: Denies abdominal pain : Denies dysuria SKIN: Denies rash. MSK: Denies joint pain. NEURO: Denies headache ROS Other: All systems not noted in ROS Statement are negative. Past Medical History Past Medical History: Atrial Fibrillation, Coronary Artery Disease (CAD), Chest Pain / Angina, Heart Failure, COPD, Diabetes Mellitus, GERD/Reflux, Hyperlipidemia, Hypertension, Liver Disease, Myocardial Infarction (MD), Prostate Disorder, Renal Disease, Skin Disorder, Vascular Disorder Additional Past Medical History / Comment(s): history ofAfib with RVR, tachybrady syndrome with pacemaker, IDDM type II, neuropathy bilateral feet, stage III chronic kidney disease, chronic CHF, R pleural effusion, liver cirrhosis, BPH, DJD, herniated discs low back, chronic low back pain, varicose veins , anemia with hx of iron infusions., past asbestos exposure, celiac disease, dermatitis herpetiformis. Last Myocardial Infarction Date:: 06/2018 History of Any Multi-Drug Resistant Organisms: None Reported Past Surgical History: Ablation, Cardiac Ablation, Cholecystectomy, Heart Catheterization With Stent, Pacemaker, Tonsillectomy Additional Past Surgical History / Comment(s): PCI with STENTS x 3, bilateral cataracts removed with lens implants, colonoscopy, [employer] pacemaker Past Anesthesia/Blood Transfusion Reactions: No Reported Reaction Date of Last Stent Placement:: 2017 Type of Cardiac Device: Permanent Pacemaker Device Placement Date:: 02/02/19 Past Psychological History: No Psychological Hx Reported Smoking Status: Former smoker Past Alcohol Use History: None Reported Past Drug Use History: None Reported - Past Family History Mother Family Medical History: Diabetes Mellitus Father Family Medical History: Myocardial Infarction (MD) Additional Family Medical History / Comment(s): Father had a MD in his 70s. Brother(s) Family Medical History: Myocardial Infarction (MD) Additional Family Medical History / Comment(s): Brother had a MD in his 50s. General Exam - General Exam Comments Initial Comments: General: Appears in no acute distress. HEAD: Normal with no signs of head trauma. EYES: PERRLA, EOMI, conjunctiva normal, no discharge. ENT: Hearing grossly intact, normal oropharynx. RESPIRATORY: Patient is hypoxic on room air to 89% which is a change from when he was discharged, when he was saturating 94-95%. He is not dyspneic. He is end expiratory wheezing in bilateral lung tobias. No obvious rhonchi or crackles appreciated. There are no retractions. C/V: Regular rate and rhythm. S1 and S2 auscultated, no edema, peripheral pulses 2+ and intact throughout ABD: Abd is soft, nontender, nondistended EXT: Normal range of motion, no obvious deformity SKIN: No rashes or lesions observed on exposed skin. NEURO: Alert and oriented 4. Course Vital Signs 07/26/21 07/26/21 07/26/21 14:30 16:10 16:18 Temperature 98.5 F Pulse Rate 78 76 82 Pulse Rate [ Pulse Oximetery ] Respiratory 18 Rate Blood Pressure 159/79 Blood Pressure [Right Arm] O2 Sat by Pulse 89 L Oximetry 07/26/21 07/26/21 07/26/21 18:09 18:53 19:06 Temperature Pulse Rate 74 80 80 Pulse Rate [ Pulse Oximetery ] Respiratory 18 Rate Blood Pressure 164/75 Blood Pressure [Right Arm] O2 Sat by Pulse 93 L Oximetry 07/26/21 07/26/21 19:55 20:00 Temperature 98.7 F 98 F Pulse Rate 88 Pulse Rate [ 85 Pulse Oximetery ] Respiratory 22 18 Rate Blood Pressure 156/78 Blood Pressure 168/84 [Right Arm] O2 Sat by Pulse 96 95 Oximetry Medical Decision Making - Medical Decision Making Based on the patient's presentation and physical exam, I'm concerned for possible infectious etiology for the patient's acute symptoms at this time, but cannot rule out cardiac etiology or an exacerbation of a chronic pulmonary illness. Therefore we will obtain a cardiac workup in addition to basic labs, troponin, chest x-ray. Patient recently received CT imaging and I do not believe that this required at this time. We will retest for COVID-19 at this time. Patient appears to be having an acute COPD exacerbation and we will treat him with 125 mg of IV Solu-Medrol in addition to DuoNeb breathing treatment and magnesium. He was in agreement this plan. He will be connected to continuous cardiac monitoring while he is here. He was started on 2 L nasal cannula which improves his hypoxia. Patient's EKG shows no signs of acute ischemia. There was a delay in obtaining the chest x-ray, however it did reveal what appears to be a worsening pneumonia bilaterally, particularly worse on the left. There are small pleural effusions without much change. Lavatory studies are remarkable for an elevated troponin of 0.047. This is elevated above his baseline. Patient has a mildly increased alk phos of 192 and ALT of 69. Patient is hyperglycemic with a sugar of 271. Patient has CK D with a creatinine of 2.20 which does appear to be his baseline. Patient is acutely hyponatremic to 129 and hypochloremic to 91. Patient is a very slight leukocytosis of 13.1. Patient is an elevated APTT in the setting of anticoagulation use. On reevaluation, patient's wheezing is improved. He states he is feeling improved but is still requiring oxygen to maintain adequate saturations. I discussed with him the findings of his laboratory studies and imaging. I recommended that we start antibiotics at this time until pulmonology can further evaluate the patient. He was in agreement this plan. I did also recommended that we admit him to the hospital. He was in agreement with this plan. I consult to cardiology due to the elevated troponin, and spoke with Dr. Myers who requested that we obtain a repeat troponin in the morning. He stated that the patient does not require IV heparin at this time and subcutaneous DVT prophylaxis heparin is sufficient, due to the likelihood this is an NSTEMI type 2 from his pulmonary symptoms. Patient will be restarted on his home xeralto a nd his other home medications. Q6rh solumedrol and Q4 hr duonebs are ordered. Due To the patient's suspected pneumonia, he will be started on Rocephin. I consulted the patient's casino floor person, Dr. Queen to evaluate the patient tomorrow. I spoke with the admitting team under Dr. Arthur who accepted the patient as well. Patient was therefore admitted and serous condition to a telemetry bed. - Lab Data Result diagrams: 07/26/21 15:35 07/26/21 15:35 Lab Results 07/26/21 07/26/21 07/26/21 Range/Units 15:35 15:35 15:35 WBC 13.1 H (3.8-10.6) k/uL RBC 4.18 L (4.30-5.90) m/uL Hgb 13.6 (13.0-17.5) gm/dL Hct 39.8 (39.0-53.0) % MCV 95.2 (80.0-100.0) fL MCH 32.5 (25.0-35.0) pg MCHC 34.1 (31.0-37.0) g/dL RDW 14.5 (11.5-15.5) % Plt Count 156 (150-450) k/uL MPV 9.0 Neutrophils % 87 % Lymphocytes % 5 % Monocytes % 6 % Eosinophils % 1 % Basophils % 0 % Neutrophils # 11.3 H (1.3-7.7) k/uL Lymphocytes # 0.6 L (1.0-4.8) k/uL Monocytes # 0.8 (0-1.0) k/uL Eosinophils # 0.1 (0-0.7) k/uL Basophils # 0.0 (0-0.2) k/uL PT 11.9 (9.0-12.0) sec INR 1.1 (<1.2) APTT 31.2 H (22.0-30.0) sec Sodium 129 L (137-145) mmol/L Potassium 4.2 (3.5-5.1) mmol/L Chloride 91 L (98-107) mmol/L Carbon Dioxide 24 (22-30) mmol/L Anion Gap 14 mmol/L BUN 48 H (9-20) mg/dL Creatinine 2.20 H (0.66-1.25) mg/dL Est GFR (CKD-EPI)AfAm 35 (>60 ml/min/1.73 sqM) Est GFR (CKD-EPI)NonAf 30 (>60 ml/min/1.73 sqM) Glucose 154 H (74-99) mg/dL Calcium 9.0 (8.4-10.2) mg/dL Magnesium 2.2 (1.6-2.3) mg/dL Total Bilirubin 2.0 H (0.2-1.3) mg/dL AST 55 (17-59) U/L ALT 69 H (4-49) U/L Alkaline Phosphatase 192 H (38-126) U/L Troponin I (0.000-0.034) ng/mL Total Protein 6.7 (6.3-8.2) g/dL Albumin 4.0 (3.5-5.0) g/dL Coronavirus (PCR) (Not Detectd) 07/26/21 07/26/21 Range/Units 15:35 15:35 WBC (3.8-10.6) k/uL RBC (4.30-5.90) m/uL Hgb (13.0-17.5) gm/dL Hct (39.0-53.0) % MCV (80.0-100.0) fL MCH (25.0-35.0) pg MCHC (31.0-37.0) g/dL RDW (11.5-15.5) % Plt Count (150-450) k/uL MPV Neutrophils % % Lymphocytes % % Monocytes % % Eosinophils % % Basophils % % Neutrophils # (1.3-7.7) k/uL Lymphocytes # (1.0-4.8) k/uL Monocytes # (0-1.0) k/uL Eosinophils # (0-0.7) k/uL Basophils # (0-0.2) k/uL PT (9.0-12.0) sec INR (<1.2) APTT (22.0-30.0) sec Sodium (137-145) mmol/L Potassium (3.5-5.1) mmol/L Chloride (98-107) mmol/L Carbon Dioxide (22-30) mmol/L Anion Gap mmol/L BUN (9-20) mg/dL Creatinine (0.66-1.25) mg/dL Est GFR (CKD-EPI)AfAm (>60 ml/min/1.73 sqM) Est GFR (CKD-EPI)NonAf (>60 ml/min/1.73 sqM) Glucose (74-99) mg/dL Calcium (8.4-10.2) mg/dL Magnesium (1.6-2.3) mg/dL Total Bilirubin (0.2-1.3) mg/dL AST (17-59) U/L ALT (4-49) U/L Alkaline Phosphatase (38-126) U/L Troponin I 0.047 H* (0.000-0.034) ng/mL Total Protein (6.3-8.2) g/dL Albumin (3.5-5.0) g/dL Coronavirus (PCR) Not Detected (Not Detectd) - EKG Data -: EKG Interpreted by Me EKG Comments: 12-lead Electrocardiogram Interpretation Note EKG was reviewed and interpreted by myself. 12-lead ECG performed at 1545 is interpreted by me as revealing normal sinus rhythm with first-degree AV block at a rate of 79 beats per minute. Joseph is normal. ND interval 230 ms, QRS duration is 160 ms, QTc is 499 ms.. There were no ST or T wave abnormalities to suggest myocardial ischemia or injury. R wave progression across the precordium was delayed. In comparison to the EKG from yesterday, there are no acute changes.. By my interpretation this EKG is non-diagnostic for acute ischemia. Disposition Clinical Impression: Hypoxia, COPD (chronic obstructive pulmonary disease), Pulmonary mass, CKD (chronic kidney disease), Hyponatremia, NSTEMI (non-ST elevated myocardial infarction), Elevated troponin, Pneumonia Disposition: ADMITTED IP TO THIS HOSP Condition: Serious
--- NOTE | 2021-07-26 17:39 | XR ---
EXAMINATION TYPE: XR chest 2V DATE OF EXAM: 07/26/2021 COMPARISON: 07/25/2021 HISTORY: Difficulty breathing TECHNIQUE: FINDINGS: There is some patchy airspace infiltrate in the mid lung tobias. This is more on the left s luanne. There is left axillary pacemaker. There no hilar masses. There is mild blunting of the costophre bulmaro angles. Bony thorax is intact. There is no gross heart failure. IMPRESSION: There is bilateral pneumonia that is more on the left side that is slightly increased com pared to yesterday. Small pleural effusions without much change. Normal heart size.
[2021-07-26] MEDS: methylPREDNISolone SOD SUCCI 40 MG/ML 1 ML VIAL IV SCH ×2 (18:13→23:14)
[2021-07-26] MEDS ORDERED: FLUTICASONE 50MCG/SPRAY NASAL 16GM EA NOSTRIL PRN (18:22)
[2021-07-26] MEDS ORDERED: NITROGLYCERIN SL TABS 0.4 MG TAB SUBLINGUAL PRN (18:22)
[2021-07-26] MEDS ORDERED: IPRATROPIUM-ALBUTEROL 3 ML NEB INHALATION PRN (18:54)
[2021-07-26] MEDS ORDERED: LEVOFLOXACIN 750 MG TAB PO SCH (19:00)
[2021-07-26] MEDS: HEPARIN SODIUM,PORCINE/PF 5,000 UNIT/0.5 ML SYRINGE SQ SCH ×2 (19:11→23:18)
[2021-07-26] MEDS: LEVOFLOXACIN 750MG-D5W PMX 750 MG in DEXTROSE/WATER 1 150ML.BAG IVPB SCH (19:21)
[2021-07-26] MEDS ORDERED: IPRATROPIUM-ALBUTEROL 3 ML NEB INHALATION SCH (20:00)
[2021-07-26 20:10] LABS: Glucose,Whole Blood 271 mg/dL (75-99)
[2021-07-26] MEDS: IPRATROPIUM-ALBUTEROL 3 ML NEB INHALATION SCH (20:46)
[2021-07-26] MEDS ORDERED: INSULIN DETEMIR (LEVEMIR) 100 UNIT/ML SYR SQ SCH (21:00)
[2021-07-26] MEDS: allopurinoL 100 MG TAB PO SCH (21:04)
[2021-07-26] MEDS: MONTELUKAST 10 MG TAB PO SCH (21:04)
[2021-07-26] MEDS: DILTIAZEM ORAL 30 MG TAB PO SCH (21:04)
[2021-07-26] MEDS: METOPROLOL TARTRATE 50 MG TAB PO SCH (21:04)
[2021-07-26] MEDS: INSULIN ASPART (NovoLOG) 100 UNIT/ML VIAL SQ SCH (21:05)
[2021-07-26] MEDS: FLECAINIDE 50 MG TAB PO SCH (21:05)
[2021-07-26] MEDS: hydrALAZINE HCL 50 MG TAB PO SCH (21:05)
--- NOTE | 2021-07-26 21:20 | HP ---
HISTORY AND PHYSICAL CHIEF COMPLAINTS: Shortness of breath and some chest tightness and hypoxia. HISTORY OF PRESENT ILLNESS: This 66-year-old gentleman with a past medical history of CAD, history of CHF with chronic diastolic dysfunction, history of COPD, diabetes mellitus, GERD, hypertension, hyperlipidemia, history of myocardial infarction, being followed by Dr. Valentine in the outpatient setting, was recently to [facility] and evaluated. The patient was thought to have a left upper lung mass and was evaluated by Dr. Frias, who recommended multiple workup, including outpatient PET scan, and the patient went home. The patient was having shortness of breath and came back in. The patient was hypoxic and found to have bilateral pneumonia, right more than the left. The patient was admitted for further evaluation and treatment. Creatinine is also elevated to 2.20. The baseline creatinine is 1.92. There is no history of any fever, rigors or chills. No history of headache, loss of consciousness, seizures at this time. PAST MEDICAL HISTORY: Atrial fibrillation, CAD, chest pain, CHF, COPD, diabetes mellitus, type 2, GERD, hypertension, hyperlipidemia. MEDICATIONS: Home medications include Apresoline, diltiazem, Zyprexa, coenzyme Q, Xarelto, Pravachol, Protonix, Nitrostat, Singulair, Lopressor, magnesium oxide, Claritin, Imdur, DuoNeb. Doses are reviewed. ALLERGIES: MULTIPLE ALLERGIES: AMLODIPINE, AMOXICILLIN, CEPHALEXIN, CLINDAMYCIN, PENICILLIN, SULFA, BACTRIM, COREG. FAMILY HISTORY: History of diabetes mellitus in the family. SOCIAL HISTORY: Previous history of smoking. No history of alcohol intake. REVIEW OF SYSTEMS: ENT: No diminished hearing. No diminished vision. CARDIOVASCULAR SYSTEM: As mentioned earlier. RESPIRATORY SYSTEM: As mentioned earlier. GI: No nausea, vomiting, diarrhea. : No dysuria. NERVOUS SYSTEM: No numbness, weakness. ALLERGY/IMMUNOLOGY: No asthma or hay fever. MUSCULOSKELETAL: As mentioned earlier. HEMATOLOGY/ONCOLOGY: No history of anemia. ENDOCRINE: No history of diabetes, hypothyroidism. CONSTITUTIONAL: As mentioned earlier. DERMATOLOGY: Negative. RHEUMATOLOGY: Negative. PSYCHIATRY: As mentioned earlier. PHYSICAL EXAMINATION: Patient is alert and oriented x3. Pulse 74, blood pressure 160/75, respiration 18, temperature 98.4, pulse ox 93% on 2 L. HEENT: Conjunctivae normal. Oral mucosa moist. NECK: No jugular venous distention. No carotid bruit. No lymph node enlargement. CARDIOVASCULAR: S1, S2 muffled. No S3. No S4. RESPIRATION: Breath sounds diminished at the bases. Bilateral scattered rhonchi and crackles. Expiratory wheezing also present. ABDOMEN: Soft. No tenderness. No mass palpable. LEGS: No edema. No swelling. NERVOUS SYSTEM: Higher functions as mentioned earlier. Moves all 4 limbs. No focal motor or sensory deficit. LYMPHATICS: No lymph node palpable in neck, axillae or groin. SKIN: No ulcer, rash, bleeding. JOINTS: No active deforming arthropathy. LAB STUDIES: Labs at this time show WBC 13.2, hemoglobin 13.6 and sodium potassium 4.2, creatinine 2.20. ASSESSMENT: 1. Acute bilateral pneumonia, possibly Gram-negative with acute hypoxic respiratory failure. 2. Possible chronic obstructive pulmonary disease and congestive heart failure, acute exacerbation, with acute on chronic diastolic congestive heart failure. 3. Increased white count. 4. Hyponatremia. 5. Elevated creatinine with acute renal failure and acute kidney injury. 6. Chronic kidney disease, stage 3, possibly baseline. 7. Elevated ALT and alkaline phosphatase. 8. Troponin 0.047. 9. Possible left lung mass and bronchogenic malignancy, under investigation. 10.History of atrial fibrillation. 11.History of coronary artery disease. 12.History of diabetes mellitus, type 2. 13.Hypertension. 14.Hyperlipidemia. 15.History of chronic liver disease and cirrhosis of the liver. 16.History of prostate disorder. 17.History of tachy-chary syndrome with pacemaker. 18.History of peripheral neuropathy. 19.History of right pleural effusion. 20.History of iron infusions. 21.History of asbestos exposure in the past. 22.History of celiac disease. 23.History of dermatitis herpetiformis. 24.History of cardiac ablation. 25.History of coronary artery disease, stent. 26.Remote history of nicotine dependence. 27.FULL CODE. RECOMMENDATIONS AND DISCUSSION: In this 66-year-old gentleman who presented with multiple complex medical issues, at this time I recommend to continue the current medication. I would recommend intensive bronchodilator treatment, steroids and IV antibiotics. I would also recommend pulmonary consultation as well as cardiology evaluation. Diuretics also will be given. Resume the home medications. Repeat labs. Overall prognosis guarded because of multiple complex medical issues, as listed above. Further recommendations to follow. A copy of this dictation is being forwarded to Dr. Valentine, who is the primary physician. Discussed with the patient family. See orders for further details. Will obtain the cultures also. MMODL / IJN: [id number] / MTDD
[2021-07-26] MEDS: RIVAROXABAN 15 MG TAB PO SCH (23:18)
[2021-07-27 06:24] LABS: Glucose,Whole Blood 340 mg/dL (75-99)
[2021-07-27] MEDS: methylPREDNISolone SOD SUCCI 40 MG/ML 1 ML VIAL IV SCH ×4 (06:37→23:11)
[2021-07-27] MEDS: INSULIN ASPART (NovoLOG) 100 UNIT/ML VIAL SQ SCH ×5 (06:38→20:55)
[2021-07-27] MEDS: PANTOPRAZOLE 40 MG TABLET PO SCH (06:38)
[2021-07-27] MEDS: IPRATROPIUM-ALBUTEROL 3 ML NEB INHALATION SCH ×4 (07:25→19:13)
[2021-07-27] MEDS ORDERED: INSULIN ASPART (NovoLOG) 100 UNIT/ML VIAL SQ SCH (07:30)
[2021-07-27] MEDS: DILTIAZEM ORAL 30 MG TAB PO SCH ×2 (08:02→20:55)
[2021-07-27] MEDS: ISOSORBIDE MONONITRATE ER 30 MG TAB.ER.24H PO SCH (08:03)
[2021-07-27] MEDS: METOPROLOL TARTRATE 50 MG TAB PO SCH ×2 (08:03→20:56)
[2021-07-27] MEDS: FUROSEMIDE 40 MG TAB PO SCH ×2 (08:03→15:19)
[2021-07-27] MEDS: FLECAINIDE 50 MG TAB PO SCH ×2 (08:03→20:56)
[2021-07-27] MEDS: CHOLECALCIFEROL 25 MCG (1000 IU) TABLET PO SCH (08:03)
[2021-07-27] MEDS: allopurinoL 100 MG TAB PO SCH ×2 (08:03→20:56)
[2021-07-27] MEDS: FOLIC ACID 1 MG TAB PO SCH (08:03)
[2021-07-27] MEDS: PRAVASTATIN SODIUM 20 MG TAB PO SCH (08:03)
[2021-07-27] MEDS: MAGNESIUM OXIDE 400 MG TAB PO SCH (08:03)
[2021-07-27] MEDS: RIVAROXABAN 15 MG TAB PO SCH (08:03)
[2021-07-27] MEDS: hydrALAZINE HCL 50 MG TAB PO SCH ×3 (08:03→20:56)
[2021-07-27] MEDS: LORATADINE 10 MG TAB PO SCH (08:03)
[2021-07-27] MEDS: FOLIC ACID-VIT B COMPLEX-VIT C 1 CAP PO SCH (08:04)
[2021-07-27 08:45] LABS: Basophils % (A) 0 %; Eosinophils % (A) 0 %; HCT 40.2 % (39.0-53.0); HGB 12.9 gm/dL (13.0-17.5); Lymphocytes # (A) 0.4 k/uL (1.0-4.8); Lymphocytes % (A) 5 %; MCH 31.3 pg (25.0-35.0); MCHC 31.9 g/dL (31.0-37.0); MCV 98.2 fL (80.0-100.0); Monocytes # (A) 0.2 k/uL (0-1.0); Monocytes % (A) 2 %; Neutrophils # (A) 7.8 k/uL (1.3-7.7); Neutrophils % (A) 93 %; Platelet Count 151 k/uL (150-450); RDW 14.7 % (11.5-15.5); WBC 8.4 k/uL (3.8-10.6)
[2021-07-27 08:53] LABS: Calcium 8.8 mg/dL (8.4-10.2); Potassium 4.1 mmol/L (3.5-5.1)
[2021-07-27] MEDS ORDERED: NON FORMULARY DRUG (Ubidecarenone [Co Q-10] 100 MG Capsule) PO SCH (09:00)
[2021-07-27] MEDS: HEPARIN SODIUM,PORCINE/PF 5,000 UNIT/0.5 ML SYRINGE SQ SCH ×3 (10:50→23:13)
[2021-07-27 11:17] LABS: Glucose,Whole Blood 290 mg/dL (75-99)
[2021-07-27] MEDS: INSULIN DETEMIR (LEVEMIR) 100 UNIT/ML SYR SQ SCH ×2 (11:52→20:55)
--- NOTE | 2021-07-27 11:53 | P.CRDCN ---
History of Present Illness History of present illness: HISTORY OF PRESENTING ILLNESS This is a pleasant 66-year-old male past medical history significant for persistent atrial fibrillation on terminal gauger anti-coagulation, sick sinus syndrome s/p permanent pacemaker implantation, coronary artery disease s/p PCI to diagonal branch and circumflex last in 2017, COPD, diabetes mellitus, chronic renal failure, hypertension, dyslipidemia, liver disease, chronic diastolic heart failure and former nicotine dependence, former alcohol use. He follows in the office with Dr. Morgan. We have been asked to see in consultation for elevated troponin. Patient presents to the hospital with shortness of breath and worsening dyspnea on exertion. He states after being discharged on 07/25 he continued to be short of breath. He also endorses some fullness in his abdomen. Patient denies chest pain, palpitations, lower extremity edema, fatigue, weakne ss, lightheadedness, syncope. He denies symptoms of orthopnea or PND. Patient recently presented to the hospital on 07/25 with shortness of breath and abdominal pain. Computed tomography scan of the chest, abdomen and pelvis revealed bronchogenic left upper lobe mass over pneumonia, liver cirrhosis, suspicion for malignancy of lung mass. Pulmonary was consulted and patient was set up for a PET scan as an outpatient. Patient was discharged at that time in stable condition. Patient was started on IV Levaquin for treatment of pneumonia. DIAGNOSTICS EKG reveals sinus rhythm, HR 79, first degree AV block, incomplete left bundle branch block, ST depression in lead V6, PVC Last Cardiac Catheterization 06/2018 with stenting of the first diagnol branch Telemetry tracings indicate sinus mechanism Chest xray bilateral pneumonia is more in the left side of his slightly increased compared to 07/25. Small pleural effusions without much change. Laboratory reviewed, WBC 8.4, hemoglobin 12.9, platelets 151, sodium 125, potassium 4.1, BUN 53, serum creatinine 2.17, troponin 0.47-->0.02, 0.02. Pr oBNP 5740 Current home cardiac medications include flecainide 50 mg twice a day, Lasix 40 mg twice a day, Imdur 30 mg daily, metoprolol tartrate 50 mg twice a day, pravastatin 20 mg daily, Xarelto 15 mg daily, cardizem 90mg BID, hydralazine 100mg TID REVIEW OF SYSTEMS At the time of my exam: CONSTITUTIONAL: Denies fever or chills. CARDIOVASCULAR: +Shortness of breath +dyspnea on exertion Denies chest pain, orthopnea, PND or palpitations. RESPIRATORY: Denies cough. GASTROINTESTINAL: Denies abdominal pain, diarrhea, constipation, nausea or vomiting. MUSCULOSKELETAL: Denies myalgias. NEUROLOGIC: Denies numbness, tingling, headacbe or weakness. ENDOCRINE: Denies fatigue, weight change, polydipsia or polyurina. GENITOURINARY: Denies burning, hematuria or urgency with micturation. HEMATOLOGIC: Denies history of anemia or bleeding. PHYSICAL EXAMINATION Blood pressure 140/76 heart rate 67 afebrile and maintaining oxygen saturation 95% on 3L nasal cannula CONSTITUTIONAL: No apparent distress. HEENT: Head is normocephalic. Pupils are equal, round. Sclerae anicteric. Mucous membranes of the mouth are moist. No JVD. No carotid bruit. CHEST EXAMINATION: Lungs are diminished bilaterally, mild crackles in the left lower lobe . No chest wall tenderness is noted on palpation or with deep breathing. HEART EXAMINATION: Regular rate and rhythm. S1, S2 heard. No murmurs, gallops or rub. ABDOMEN: Soft, nontender. Positive bowel sounds. EXTREMITIES: 2+ peripheral pulses, no lower extremity edema and no calf tenderness. SKIN: intact NEUROLOGIC EXAMINATION: Patient is awake, alert and oriented x3. ASSESSMENT Shortness of breath, multifactorial Elevated troponin x 1, not indicative of acute coronary syndrome. Bilateral Pneumonia Acute on chronic diastolic heart failure Hyponatremia Acute on chronic renal failure Persistent atrial fibrillation on penitentiary anti-coagulation Xarelto Sick sinus syndrome s/p permanent pacemaker implantation Coronary artery disease s/p PCI to diagonal branch and circumflex last in 2018 History of COPD Type 2 Diabetes mellitus Hypertension Dyslipidemia History of chronic liver disease PLAN Obtain 2D echocardiogram and doppler study to assess cardiac structure and function. Will continue PO Lasix 40mg BID due to patient's renal function I/Os, Daily weights Continue home cardiac medications Further recommendations based on clinical course Thank you kindly for this consultation. Nurse Practitioner note has been reviewed, I agree with a documented findings and plan of care. Patient was seen and examined. Past Medical History Past Medical History: Atrial Fibrillation, Coronary Artery Disease (CAD), Chest Pain / Angina, Heart Failure, COPD, Diabetes Mellitus, GERD/Reflux, Hyperlipidemia, Hypertension, Liver Disease, Myocardial Infarction (IN), Prostate Disorder, Renal Disease, Skin Disorder, Vascular Disorder Additional Past Medical History / Comment(s): history ofAfib with RVR, tachybrady syndrome with pacemaker, IDDM type II, neuropathy bilateral feet, s tage III chronic kidney disease, chronic CHF, R pleural effusion, liver cirrhosis, BPH, DJD, herniated discs low back, chronic low back pain, varicose veins , anemia with hx of iron infusions., past asbestos exposure, celiac disease, dermatitis herpetiformis. Last Myocardial Infarction Date:: 06/2018 History of Any Multi-Drug Resistant Organisms: None Reported Past Surgical History: Ablation, Cardiac Ablation, Cholecystectomy, Heart Catheterization With Stent, Pacemaker, Tonsillectomy Additional Past Surgical History / Comment(s): PCI with STENTS x 3, bilateral cataracts removed with lens implants, colonoscopy, [employer] pacemaker Past Anesthesia/Blood Transfusion Reactions: No Reported Reaction Date of Last Stent Placement:: 2017 Type of Cardiac Device: Permanent Pacemaker Device Placement Date:: 02/02/19 Past Psychological History: No Psychological Hx Reported Smoking Status: Former smoker Past Alcohol Use History: None Reported Past Drug Use History: None Reported - Past Family History Mother Family Medical History: Diabetes Mellitus Father Family Medical History: Myocardial Infarction (IN) Additional Family Medical History / Comment(s): Father had a IN in his 70s. Brother(s) Family Medical History: Myocardial Infarction (IN) Additional Family Medical History / Comment(s): Brother had a IN in his 50s. Medications and Allergies Home Medications Medication Instructions Recorded Confirmed Type Fluticasone Nasal [place] [Flonase 1 spr EA NOSTRIL DAILY PRN 05/12/16 07/26/21 History Nasal [place]] Cholecalciferol [Vitamin D3 (25 75 mcg PO PC-BRKFST 08/26/18 07/26/21 History Mcg = 1000 Iu)] Isosorbide Mononitrate ER [Imdur] 30 mg PO DAILY 01/16/19 07/26/21 History Pantoprazole [Protonix] 40 mg PO DAILY 01/16/19 07/26/21 History Montelukast [Singulair] 10 mg PO HS 02/12/19 07/26/21 History Loratadine [Claritin] 10 mg PO DAILY 03/28/19 07/26/21 History Metoprolol Tartrate [Lopressor] 50 mg PO BID 03/28/19 07/26/21 History Furosemide [Lasix] 40 mg PO BID@0900,1600 #60 tab 04/10/19 07/26/21 Rx Ipratropium-Albuterol Nebulize 3 ml INHALATION RT-QID PRN 06/12/19 07/26/21 History [Duoneb 0.5 mg-3 mg/3 ml Soln] Vitamin B Complex 1 cap PO DAILY 06/24/19 07/26/21 History allopurinoL [Zyloprim] 100 mg PO BID 06/24/19 07/26/21 History Ubidecarenone [Co Q-10] 100 mg PO DAILY 08/01/19 07/26/21 History Flecainide [Tambocor] 50 mg PO Q12H 11/11/19 07/26/21 History INSULIN LISPRO (humaLOG) [humaLOG] See Protocol SQ AC-TID 11/11/19 07/26/21 History Pravastatin Sodium [Pravachol] 20 mg PO DAILY 11/11/19 07/26/21 History Albuterol Sulfate [Ventolin HFA] 1 - 2 puff INHALATION RT-Q6H PRN 07/25/21 07/26/21 History Fluticasone/Salmeterol 1 puff INHALATION DIRECTED 07/25/21 07/26/21 History [Fluticasone-Salmeterol 232-14] Folic Acid 0.4 mg PO DAILY 07/25/21 07/26/21 History Magnesium Oxide [Goss] 500 mg PO DAILY 07/25/21 07/26/21 History Rivaroxaban [Xarelto] 15 mg PO DAILY 07/25/21 07/26/21 History dilTIAZem HCL 90 mg PO BID 07/25/21 07/26/21 History hydrALAZINE HCL [Apresoline] 100 mg PO TID 07/25/21 07/26/21 History Insulin Detemir [Levemir Flextouch 46 units SQ HS 07/26/21 07/26/21 History Pen] Nitroglycerin Sl Tabs [Nitrostat] 0.4 mg SL Q5M PRN 07/26/21 07/26/21 History Allergies Allergy/AdvReac Type Severity Reaction Status Date / Time amlodipine Allergy Swelling Verified 07/26/21 16:32 amoxicillin Allergy Anaphylaxis Verified 07/26/21 16:32 cephalexin monohydrate Allergy Rash/Hives Verified 07/26/21 16:32 [From Keflex] clindamycin Allergy Rash/Hives Verified 07/26/21 16:32 Penicillins Allergy Rash/Hives Verified 07/26/21 16:32 Sulfa (Sulfonamide Allergy Anaphylaxis Verified 07/26/21 16:32 Antibiotics) sulfamethoxazole Allergy Anaphylaxis Verified 07/26/21 16:32 [From Bactrim] trimethoprim [From Bactrim] Allergy Anaphylaxis Verified 07/26/21 16:32 carvedilol AdvReac "MAKES ME Verified 07/26/21 16:32 LOONEY" Physical Exam Vitals: Vital Signs Temp Pulse Pulse Resp BP BP Pulse Ox 07/27/21 04:00 97.6 F 71 18 162/79 94 L 07/27/21 02:00 77 18 07/26/21 23:28 77 18 165/86 95 07/26/21 20:00 98 F 85 18 168/84 95 07/26/21 19:55 98.7 F 88 22 156/78 96 07/26/21 19:06 80 07/26/21 18:53 80 07/26/21 18:09 74 18 164/75 93 L 07/26/21 16:18 82 07/26/21 16:10 76 07/26/21 14:30 98.5 F 78 18 159/79 89 L Intake and Output 07/26/21 07/27/21 07/27/21 22:59 06:59 14:59 Other: # Voids 1 1 Weight 93.5 kg 93.5 kg Results 07/27/21 08:09 07/27/21 08:09 Cardiac Enzymes 07/26/21 07/26/21 Range/Units 15:35 15:35 AST 55 (17-59) U/L Troponin I 0.047 H* (0.000-0.034) ng/mL Coagulation 07/26/21 Range/Units 15:35 PT 11.9 (9.0-12.0) sec APTT 31.2 H (22.0-30.0) sec CBC 07/26/21 Range/Units 15:35 WBC 13.1 H (3.8-10.6) k/uL RBC 4.18 L (4.30-5.90) m/uL Hgb 13.6 (13.0-17.5) gm/dL Hct 39.8 (39.0-53.0) % Plt Count 156 (150-450) k/uL Comprehensive Metabolic Panel 07/26/21 Range/Units 15:35 Sodium 129 L (137-145) mmol/L Potassium 4.2 (3.5-5.1) mmol/L Chloride 91 L (98-107) mmol/L Carbon Dioxide 24 (22-30) mmol/L BUN 48 H (9-20) mg/dL Creatinine 2.20 H (0.66-1.25) mg/dL Glucose 154 H (74-99) mg/dL Calcium 9.0 (8.4-10.2) mg/dL AST 55 (17-59) U/L ALT 69 H (4-49) U/L Alkaline Phosphatase 192 H (38-126) U/L Total Protein 6.7 (6.3-8.2) g/dL Albumin 4.0 (3.5-5.0) g/dL Current Medications Generic Name Dose Route Start Last Admin Trade Name Freq PRN Reason Stop Dose Admin Acetaminophen 650 mg 07/26/21 17:21 Acetaminophen Tab 325 Mg Tab PO Q6HR PRN Mild Pain or Fever > 100.5 Albuterol/Ipratropium 3 ml 07/26/21 20:00 07/26/21 20:46 Ipratropium-Albuterol 3 Ml Neb INHALATION Not Given RT-QID ALONZO Albuterol/Ipratropium 3 ml 07/26/21 18:54 Ipratropium-Albuterol 3 Ml Neb INHALATION Q4HR PRN Shortness Of Breath Or Wheezing Allopurinol 100 mg 07/26/21 21:00 07/26/21 21:04 Allopurinol 100 Mg Tab PO 100 mg BID ALONZO Administration Cholecalciferol 75 mcg 07/27/21 08:30 Cholecalciferol 25 Mcg (1000 Iu) Tablet PO PC-BRKFST [facility] Diltiazem HCl 90 mg 07/26/21 21:00 07/26/21 21:04 Diltiazem Oral 30 Mg Tab PO 90 mg BID [facility]ONZO Administration Flecainide Acetate 50 mg 07/26/21 21:00 07/26/21 21:05 Flecainide 50 Mg Tab PO 50 mg Q12H [facility]ONZO Administration Fluticasone Propionate 1 spray 07/26/21 18:22 Fluticasone 50mcg/[place] Nasal 16gm EA NOSTRIL DAILY PRN Allergy Symptoms Folic Acid 0.5 mg 07/27/21 09:00 Folic Acid 1 Mg Tab PO DAILY [facility] Furosemide 40 mg 07/27/21 09:00 Furosemide 40 Mg Tab PO BID@0900,1600 [facility] Heparin Sodium (Porcine) 5,000 unit 07/26/21 17:30 07/26/21 23:18 Heparin Sodium,Porcine/Pf 5,000 Unit/0.5 Ml Syringe SQ Not Given Q8HR [facility] Hydralazine HCl 100 mg 07/26/21 22:00 07/26/21 21:05 Hydralazine Hcl 50 Mg Tab PO 100 mg TID [facility]ONZO Administration Levofloxacin 750 mg/ IV 150 mls @ 100 mls/hr 07/26/21 19:00 07/26/21 19:21 Solution IVPB 100 mls/hr Q48H [facility] Administration Insulin Aspart 0 unit 07/26/21 21:00 07/27/21 06:38 Insulin Aspart (Novolog) 100 Unit/Ml Vial SQ 9 unit ACHS [facility] Administration Protocol Insulin Detemir 46 unit 07/26/21 21:00 07/26/21 21:05 Insulin Detemir (Levemir) 100 Unit/Ml Syr SQ 46 unit HS [facility] Administration Isosorbide Mononitrate 30 mg 07/27/21 09:00 Isosorbide Mononitrate Er 30 Mg Tab.Er.24h PO DAILY [facility] Loratadine 10 mg 07/27/21 09:00 Loratadine 10 Mg Tab PO DAILY [facility] Magnesium Oxide 400 mg 07/27/21 09:00 Magnesium Oxide 400 Mg Tab PO DAILY [facility] Methylprednisolone Sodium Succinate 40 mg 07/26/21 18:00 07/27/21 06:37 Methylprednisolone Sod Succi 40 Mg/Ml 1 Ml Vial IV 40 mg Q6HR [facility] Administration Metoprolol Tartrate 50 mg 07/26/21 21:00 07/26/21 21:04 Metoprolol Tartrate 50 Mg Tab PO 50 mg BID [facility] Administration Montelukast Sodium 10 mg 07/26/21 21:00 07/26/21 21:04 Montelukast 10 Mg Tab PO 10 mg HS [facility] Administration Multivit/Ca Carb/B Cmplx/FA/Prenat 1 each 07/27/21 09:00 Folic Acid-Vit B Complex-Vit C 1 Cap PO DAILY [facility] Naloxone HCl 0.2 mg 07/26/21 17:21 Naloxone 0.4 Mg/Ml 1 Ml Vial IV Q2M PRN Opioid Reversal Nitroglycerin 0.4 mg 07/26/21 18:22 Nitroglycerin Sl Tabs 0.4 Mg Tab SUBLINGUAL Q5M PRN Chest Pain Ondansetron HCl 4 mg 07/26/21 17:21 Ondansetron 4 Mg/2 Ml Vial IVP Q8HR PRN Nausea And Vomiting Pantoprazole Sodium 40 mg 07/27/21 07:30 07/27/21 06:38 Pantoprazole 40 Mg Tablet PO 40 mg DAILY@0730 [facility] Administration Pravastatin Sodium 20 mg 07/27/21 09:00 Pravastatin Sodium 20 Mg Tab PO DAILY [facility] Rivaroxaban 15 mg 07/26/21 22:00 07/26/21 23:18 Rivaroxaban 15 Mg Tab PO Not Given DAILY [facility] Protocol Intake and Output 07/26/21 07/27/21 07/27/21 22:59 06:59 14:59 Other: # Voids 1 1 Weight 93.5 kg 93.5 kg 07/26/21 15:35 07/26/21 15:35
--- NOTE | 2021-07-27 11:53 | P.CNPUL ---
History of Present Illness Consult date: 07/27/21 Requesting physician: Pamela Arthur Reason for consult: dyspnea, COPD, lung mass, abnormal CXR/CT Chief complaint: COPD exacerbation. History of present illness: Pulmonary consult dated 07/27/2021. 66-year-old male with a history of atrial fibrillation, CAD, heart failure, COPD, diabetes mellitus, hypertension, liver cirrhosis, myocardial infarction, pacemaker placement, among other things, who apparently presents to the emergency department, with complaints of increasing shortness of breath, abdominal distention and bloating. I recently saw him in the office. At that time he was doing well from the COPD standpoint. More recently, he came into the hospital with similar complaints, and end up having a computed tomography scan which showed a mass in the left chest. He was previously seen by my partner. A PET scan was ordered. The patient states that he's feeling reasonably well today but he still short of breath practically on exertion. He denies coughing up any phlegm. He does have some wheezing and tightness in his chest. In addition, he has some abdominal distention. White count 8.4, hemoglobin 12.9, hematocrit 40.2, platelet count 151,000. Sodium 125, potassium 4.1, chlorides 88, CO2 23, anion gap 14, BUN 53, and creatinine 2.17. Troponins are 0.029 is 0.026. N-terminal proBNP was elevated at 5740. Chest x-rays consistent with bilateral pneumonia. It's more left-sided than right-sided. Small pleural effusions are noted. A computed tomography scan done on July 25 shows a nodular density in the left lung, mostly in the left upper lobe. It is irregular, and may be consistent with bronchogenic carcinoma. There may be some left hilar adenopathy. Review of Systems REVIEW OF SYSTEMS: CONSTITUTIONAL: [Negative.] NEUROLOGIC: [ Negative.] HEENT: [ Negative.] CARDIAC: [Negative.] PULMONARY: Shortness of breath. GI: Abdominal bloating. : [Negative.] RHEUMATOLOGIC: [ Negative.] IMMUNOLOGIC: [ Negative.] ENDOCRINE: [Negative. ] DERMATOLOGIC: [Negative.] Past Medical History Past Medical History: Atrial Fibrillation, Coronary Artery Disease (CAD), Chest Pain / Angina, Heart Failure, COPD, Diabetes Mellitus, GERD/Reflux, Hyperlipidemia, Hypertension, Liver Disease, Myocardial Infarction (NC), Prostate Disorder, Renal Disease, Skin Disorder, Vascular Disorder Additional Past Medical History / Comment(s): history ofAfib with RVR, tachybrady syndrome with pacemaker, IDDM type II, neuropathy bilateral feet, stage III chronic kidney disease, chronic CHF, R pleural effusion, liver cirrhosis, BPH, DJD, herniated discs low back, chronic low back pain, varicose veins , anemia with hx of iron infusions., past asbestos exposure, celiac diseas e, dermatitis herpetiformis. Last Myocardial Infarction Date:: 06/2018 History of Any Multi-Drug Resistant Organisms: None Reported Past Surgical History: Ablation, Cardiac Ablation, Cholecystectomy, Heart Catheterization With Stent, Pacemaker, Tonsillectomy Additional Past Surgical History / Comment(s): PCI with STENTS x 3, bilateral cataracts removed with lens implants, colonoscopy, [employer] pacemaker Past Anesthesia/Blood Transfusion Reactions: No Reported Reaction Date of Last Stent Placement:: 2017 Type of Cardiac Device: Permanent Pacemaker Device Placement Date:: 02/02/19 Past Psychological History: No Psychological Hx Reported Smoking Status: Former smoker Past Alcohol Use History: None Reported Past Drug Use History: None Reported - Past Family History Mother Family Medical History: Diabetes Mellitus Father Family Medical History: Myocardial Infarction (NC) Additional Family Medical History / Comment(s): Father had a NC in his 70s. Brother(s) Family Medical History: Myocardial Infarction (NC) Additional Family Medical History / Comment(s): Brother had a NC in his 50s. Medications and Allergies Home Medications Medication Instructions Recorded Confirmed Type Fluticasone Nasal [place] [Flonase 1 spr EA NOSTRIL DAILY PRN 05/12/16 07/26/21 History Nasal [place]] Cholecalciferol [Vitamin D3 (25 75 mcg PO PC-BRKFST 08/26/18 07/26/21 History Mcg = 1000 Iu)] Isosorbide Mononitrate ER [Imdur] 30 mg PO DAILY 01/16/19 07/26/21 History Pantoprazole [Protonix] 40 mg PO DAILY 01/16/19 07/26/21 History Montelukast [Singulair] 10 mg PO HS 02/12/19 07/26/21 History Loratadine [Claritin] 10 mg PO DAILY 03/28/19 07/26/21 History Metoprolol Tartrate [Lopressor] 50 mg PO BID 03/28/19 07/26/21 History Furosemide [Lasix] 40 mg PO BID@0900,1600 #60 tab 04/10/19 07/26/21 Rx Ipratropium-Albuterol Nebulize 3 ml INHALATION RT-QID PRN 06/12/19 07/26/21 History [Duoneb 0.5 mg-3 mg/3 ml Soln] Vitamin B Complex 1 cap PO DAILY 06/24/19 07/26/21 History allopurinoL [Zyloprim] 100 mg PO BID 06/24/19 07/26/21 History Ubidecarenone [Co Q-10] 100 mg PO DAILY 08/01/19 07/26/21 History Flecainide [Tambocor] 50 mg PO Q12H 11/11/19 07/26/21 History INSULIN LISPRO (humaLOG) [humaLOG] See Protocol SQ AC-TID 11/11/19 07/26/21 History Pravastatin Sodium [Pravachol] 20 mg PO DAILY 11/11/19 07/26/21 History Albuterol Sulfate [Ventolin HFA] 1 - 2 puff INHALATION RT-Q6H PRN 07/25/21 07/26/21 History Fluticasone/Salmeterol 1 puff INHALATION DIRECTED 07/25/21 07/26/21 History [Fluticasone-Salmeterol 232-14] Folic Acid 0.4 mg PO DAILY 07/25/21 07/26/21 History Magnesium Oxide [Goss] 500 mg PO DAILY 07/25/21 07/26/21 History Rivaroxaban [Xarelto] 15 mg PO DAILY 07/25/21 07/26/21 History dilTIAZem HCL 90 mg PO BID 07/25/21 07/26/21 History hydrALAZINE HCL [Apresoline] 100 mg PO TID 07/25/21 07/26/21 History Insulin Detemir [Levemir Flextouch 46 units SQ HS 07/26/21 07/26/21 History Pen] Nitroglycerin Sl Tabs [Nitrostat] 0.4 mg SL Q5M PRN 07/26/21 07/26/21 History Allergies Allergy/AdvReac Type Severity Reaction Status Date / Time amlodipine Allergy Swelling Verified 07/26/21 16:32 amoxicillin Allergy Anaphylaxis Verified 07/26/21 16:32 cephalexin monohydrate Allergy Rash/Hives Verified 07/26/21 16:32 [From Keflex] clindamycin Allergy Rash/Hives Verified 07/26/21 16:32 Penicillins Allergy Rash/Hives Verified 07/26/21 16:32 Sulfa (Sulfonamide Allergy Anaphylaxis Verified 07/26/21 16:32 Antibiotics) sulfamethoxazole Allergy Anaphylaxis Verified 07/26/21 16:32 [From Bactrim] trimethoprim [From Bactrim] Allergy Anaphylaxis Verified 07/26/21 16:32 carvedilol AdvReac "MAKES ME Verified 07/26/21 16:32 LOONEY" Physical Exam Osteopathic Statement: *. No significant issues noted on an osteopathic structural exam other than those noted in the History and Physical/Consult. Vitals: Vital Signs Temp Pulse Pulse Resp BP BP Pulse Ox 07/27/21 11:14 80 07/27/21 11:02 80 07/27/21 08:00 97.4 F L 67 20 148/76 95 07/27/21 07:38 76 07/27/21 07:25 72 07/27/21 04:00 97.6 F 71 18 162/79 94 L 07/27/21 02:00 77 18 07/26/21 23:28 77 18 165/86 95 07/26/21 20:00 98 F 85 18 168/84 95 07/26/21 19:55 98.7 F 88 22 156/78 96 07/26/21 19:06 80 07/26/21 18:53 80 07/26/21 18:09 74 18 164/75 93 L 07/26/21 16:18 82 07/26/21 16:10 76 07/26/21 14:30 98.5 F 78 18 159/79 89 L Intake and Output 07/26/21 07/27/21 07/27/21 22:59 06:59 14:59 Intake Total 240 Balance 240 Intake: Oral 240 Other: # Voids 1 1 Weight 93.5 kg 93.5 kg No acute distress, oriented 3. 3 L saturation 95%. No conversational dyspnea or use of accessory muscles. HEENT examination is grossly unremarkable. Neck supple. Full range of motion. No adenopathy thyromegaly or neck vein distention. Cardiovascular examination reveals regular rhythm rate. S1-S2 normal. No S3 or S4. No discernible murmur noted. Heart rate 80 bpm. Lungs reveal mild expiratory rhonchi and wheezes. Breath sounds equal. Breath sounds are diminished throughout. No crackles are appreciated. Abdomen soft bowel sounds are heard. No masses or tenderness. Extremities are intact. No cyanosis clubbing or edema. Skin is without rash or lesion. Neurologic examination is brief but nonfocal. Results - Laboratory Findings CBC and BMP: 07/27/21 08:09 07/27/21 08:09 PT/INR, D-dimer PT 11.9 sec (9.0-12.0) 07/26/21 15:35 INR 1.1 (<1.2) 07/26/21 15:35 Abnormal lab findings: Abnormal Labs 07/26/21 07/26/21 07/26/21 15:35 15:35 15:35 WBC 13.1 H RBC 4.18 L Hgb Neutrophils # 11.3 H Lymphocytes # 0.6 L APTT 31.2 H Sodium 129 L Chloride 91 L BUN 48 H Creatinine 2.20 H Glucose 154 H POC Glucose (mg/dL) Total Bilirubin 2.0 H ALT 69 H Alkaline Phosphatase 192 H Troponin I Procalcitonin 07/26/21 07/26/21 07/26/21 15:35 15:35 20:09 WBC RBC Hgb Neutrophils # Lymphocytes # APTT Sodium Chloride BUN Creatinine Glucose POC Glucose (mg/dL) 271 H Total Bilirubin ALT Alkaline Phosphatase Troponin I 0.047 H* Procalcitonin 1.92 H 07/27/21 07/27/21 07/27/21 06:23 08:09 08:09 WBC RBC 4.10 L Hgb 12.9 L Neutrophils # 7.8 H Lymphocytes # 0.4 L APTT Sodium 125 L Chloride 88 L BUN 53 H Creatinine 2.17 H Glucose 331 H POC Glucose (mg/dL) 340 H Total Bilirubin ALT Alkaline Phosphatase Troponin I Procalcitonin 07/27/21 11:14 WBC RBC Hgb Neutrophils # Lymphocytes # APTT Sodium Chloride BUN Creatinine Glucose POC Glucose (mg/dL) 290 H Total Bilirubin ALT Alkaline Phosphatase Troponin I Procalcitonin - Diagnostic Findings Chest x-ray: image reviewed CT scan - chest: image reviewed Assessment and Plan Assessment: Shortness of breath, likely multifactorial, in part related to COPD exacerbation, and possible underlying bilateral pneumonia. CT scan showing an irregular density/mass, in the left lung, which might be consistent with bronchogenic carcinoma. PET scan scheduled for August 13. History of atrial fibrillation. History of CAD. History of angina pectoris. History of CHF. History of diabetes mellitus. History of gastroesophageal reflux disease. History of hyperlipidemia. History of hypertension. History of liver cirrhosis. History of myocardial infarction. Previous history of pacemaker insertion. Multiple other medical problems and comorbidities. Plan: Plan dated 07/27/2021. Currently, the patient's getting updrafts with both albuterol sulfate and ipratropium bromide. The patient's also getting Solu-Medrol 40 mg every 6 hours, and Levaquin. Additional recommendations and suggestions are forthcoming. The patient is scheduled already for a outpatient PET scan on August 13. He likely will need a navigational bronchoscopy. Additional recommendations and suggestions are forthcoming. Currently, the primary goal is to treat his pneumonia, and his COPD exacerbation. Coronavirus testing was negative. Time with Patient: Greater than 30
[2021-07-27 14:11] LABS: Albumin 3.8 g/dL (3.5-5.0); Total Bilirubin 1.2 mg/dL (0.2-1.3); Total Protein 6.4 g/dL (6.3-8.2)
--- NOTE | 2021-07-27 15:24 | PN ---
PROGRESS NOTE DATE OF SERVICE: 07/27/2021 This 66-year-old gentleman admitted with COPD, acute exacerbation, as well as hypoxia also had complaints of chest tightness. The hemoglobin was 12.9 and chloride is 88. Creatinine is 2.17. Yesterday it was 2.20. The troponin is 0.026. Covid-19 is negative. Procalcitonin was 1.92. The patient was evaluated by Cardiology, who recommended continuing the Lasix p.o. and continue to monitor. Dr. Queen has seen the patient from the pulmonary point of view and recommended steroids and possible outpatient PET scan and navigational bronchoscopy as well. Bilateral pneumonia is also considered as a possibility. Patient is on IV Levaquin. Past medical history reviewed. REVIEW OF SYSTEMS: CARDIOVASCULAR SYSTEM: As mentioned earlier. RESPIRATION: As mentioned earlier. GI: As mentioned earlier. : No dysuria. NERVOUS SYSTEM: No numbness, weakness. CURRENT MEDICATIONS: Reviewed. They include Tylenol, DuoNeb, zyloprim, Cardizem, flecainide, Lasix. Doses are reviewed. PHYSICAL EXAMINATION: The patient is alert, oriented x3. Pulse 64, blood pressure 137/61, respiration 18, temperature 97.2, pulse ox 92% on 2 L. HEENT: Conjunctivae normal. Oral mucosa moist. NECK: No jugular venous distention. No carotid bruit. No lymph node enlargement. CARDIOVASCULAR: S1, S2 muffled. RESPIRATION: Breath sounds diminished at the bases. Bilateral scattered rhonchi and crackles. Breathing efforts are markedly increased. ABDOMEN: Soft, nontender. NERVOUS SYSTEM: No focal deficit. LABS: WBC 8.2, hemoglobin 12.9. Sodium is 125. NT-proBNP is 5740. ASSESSMENT: 1. Acute bilateral pneumonia, possibly Gram-negative, with acute hypoxic respiratory failure. 2. Chronic obstructive pulmonary disease, acute exacerbation, as well as congestive heart failure, acute exacerbation, with acute on chronic diastolic dysfunction with shortness of breath, multifactorial. 3. Increased white count. 4. Hyponatremia. 5. Elevated creatinine with acute renal failure with acute kidney injury. 6. Chronic kidney disease, stage 3 baseline possibly. 7. Elevated ALT and alkaline phosphatase. 8. Troponin 0.047, indeterminate. 9. Possible left lung mass and bronchogenic carcinoma, under investigation with outpatient PET and possible navigational bronchoscopy. 10.History of atrial fibrillation. 11.History of coronary artery disease. 12.Diabetes mellitus, type 2. 13.Hypertension. 14.Hyperlipidemia. 15.History of chronic liver disease and cirrhosis of the liver history. 16.History of prostate disorder. 17.History of tachy-chary syndrome and pacemaker. 18.History of peripheral neuropathy. 19.History of right pleural effusion. 20.History of iron infusion. 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 22.History of celiac disease. 23.History of dermatitis herpetiformis. 24.History of cardiac ablation. 25.History of coronary artery disease, stent. 26.Remote history of nicotine dependence. 27.FULL CODE. RECOMMENDATIONS AND DISCUSSION: I recommend to continue current medications, continue with symptomatic treatment. Continue with intensive bronchodilators. Continue with steroids. Continue the antibiotics. Continue the Lasix. Repeat labs in the morning. I also recommend a D- dimer. Continue to monitor. Guarded prognosis because of multiple complex medical issues. Patient is on Xarelto. Guarded prognosis. Further recommendations to follow. MMODL / IJN: [id number] /
--- NOTE | 2021-07-27 16:01 | ECHOF ---
Referral Reason:LV function MEASUREMENTS -------- HEIGHT: 180.3 cm WEIGHT: 93.4 kg BP: 148/76 IVSd: 1.8 cm (0.6 - 1.1) LVIDd: 3.0 cm (3.9 - 5.3) LVPWd: 1.7 cm (0.6 - 1.1) EDV(Teich): 35 ml IVSs: 2.0 cm LVIDs: 2.1 cm LVPWs: 1.9 cm %IVS Thck: 12 % ESV(Teich): 15 ml EF(Teich): 58 % %FS: 29 % SV(Teich): 20 ml LVOT Diam: 2.0 cm RVIDd: 3.5 cm (< 3.3) IVC: 17.43 mm LALs A4C: 6.5 cm LAAs A4C: 20.6 cm LAESV A-L A4C: 55 ml LAESV MOD A4C: 53 ml LALs A2C: 7.2 cm LAAs A2C: 26.7 cm LAESV A-L A2C: 84 ml LAESV MOD A2C: 82 ml LAESV(A-L): 71 ml LAESV Index (A-L): 33.37 ml/m Ao Diam: 3.0 cm (2.0 - 3.7) LA Diam: 4.0 cm (2.7 - 3.8) AV Cusp: 1.6 cm (1.5 - 2.6) EPSS: 1.7 cm MV E Reagan: 1.46 m/s MV DecT: 138 ms MV Dec [place]: 10.6 m/s MV A Reagan: 0.47 m/s MV E/A Ratio: 3.14 MV PHT: 40 ms MR Vmax: 2.55 m/s MR maxP.05 mmHg LVOT Vmax: 0.88 m/s LVOT maxP.10 mmHg AV Vmax: 2.07 m/s AV maxP.13 mmHg SUGAR Vmax, Pt: 1.4 cm AV Vmax: 2.13 m/s AV Vmean: 1.58 m/s AV maxP.12 mmHg AV meanP.97 mmHg AV Env.Ti: 309 ms AV VTI: 48.9 cm SUGAR Vmax, Pt: 1.3 cm PV Vmax: 0.79 m/s PV maxP.52 mmHg DE Vmax: 2.17 m/s DE maxP.87 mmHg DE PHT: 259 ms DE DecT: 892 ms DE Dec [place]: 2.4 m/s TR Vmax: 1.72 m/s TR maxP.80 mmHg RAP: 5.00 mmHg RVSP: 16.80 mmHg MV EF SLOPE: 54.71 mm/s (70 - 150) MV EXCURSION: 12.84 mm (> 18.000) FINDINGS -------- Pacerwire seen in RV and RA. This was a technically good study. The left ventricular size is normal. There is moderate concentric left ventricular hypertrophy. O verall left ventricular systolic function is normal with, an EF between 55 - 60 %. Left ventricular fillimg pressure cannot be estimated due to Atrial fibrillation. The right ventricle is mildly enlarged. LA is midly dilated 29-33ml/m2. The right atrial size is normal. Aortic valve is trileaflet and is mildly thickened. There is mild aortic stenosis present. Peak/m rey gradient across the Aortic Valve is 18.12mmHg / 10.97mmHg. The mitral valve is normal. The mitral valve leaflets are mildly thickened. Mild mitral regurgita tion is present. The tricuspid valve appears structurally normal. Mild tricuspid regurgitation present. Right vent ricular systolic pressure is normal at < 35 mmHg. There is no pulmonic regurgitation present. The aortic root size is normal. Normal inferior vena cava with normal inspiratory collapse consistent with estimated right atrial pre ssure of 5 mmHg. There is no pericardial effusion. CONCLUSIONS -------- 1. Pacerwire seen in RV and RA. 2. The left ventricular size is normal. 3. There is moderate concentric left ventricular hypertrophy. 4. Overall left ventricular systolic function is normal with, an EF between 55 - 60 %. 5. Left ventricular fillimg pressure cannot be estimated due to Atrial fibrillation. 6. LA is midly dilated 29-33ml/m2. 7. Aortic valve is trileaflet and is mildly thickened. 8. There is mild aortic stenosis present. 9. Peak/mean gradient across the Aortic Valve is 18.12mmHg / 10.97mmHg. 10. The mitral valve leaflets are mildly thickened. 11. Mild mitral regurgitation is present. 12. Mild tricuspid regurgitation present. 13. There is no pericardial effusion. P[employer] P[employer]ING MACHINE TENDER: Jennie Barnes RDCS
[2021-07-27 17:04] LABS: Glucose,Whole Blood 365 mg/dL (75-99)
[2021-07-27 20:42] LABS: Glucose,Whole Blood 269 mg/dL (75-99)
[2021-07-27] MEDS: MONTELUKAST 10 MG TAB PO SCH (20:55)
[2021-07-27 21:50] LABS: Appearance,Urine Clear (Clear); Bilirubin,Urine Negative (Negative); Blood,Urine Negative (Negative); Color,Urine Yellow; Glucose,Urine (UA) 2+ (Negative); Ketones,Urine Negative (Negative); Leukocyte Esterase,Urine Negative (Negative); Nitrite,Urine Negative (Negative); Protein,Urine Trace (Negative); Specific Gravity,Urine 1.012 (1.001-1.035); Urobilinogen,Urine <2.0 mg/dL (<2.0)
[2021-07-28] MEDS ORDERED: MELATONIN 5 MG TABLET PO ONE (01:13)
[2021-07-28 06:15] LABS: Glucose,Whole Blood 158 mg/dL (75-99)
[2021-07-28] MEDS: PANTOPRAZOLE 40 MG TABLET PO SCH (06:23)
[2021-07-28] MEDS: INSULIN DETEMIR (LEVEMIR) 100 UNIT/ML SYR SQ SCH ×2 (06:23→20:40)
[2021-07-28] MEDS: methylPREDNISolone SOD SUCCI 40 MG/ML 1 ML VIAL IV SCH (06:23)
[2021-07-28] MEDS: INSULIN ASPART (NovoLOG) 100 UNIT/ML VIAL SQ SCH ×7 (06:23→20:41)
[2021-07-28 07:45] LABS: Basophils % (A) 0 %; Eosinophils % (A) 0 %; HCT 37.5 % (39.0-53.0); HGB 12.9 gm/dL (13.0-17.5); Lymphocytes # (A) 0.5 k/uL (1.0-4.8); Lymphocytes % (A) 3 %; MCH 32.4 pg (25.0-35.0); MCHC 34.5 g/dL (31.0-37.0); MCV 94.1 fL (80.0-100.0); Mean Platelet Volume 9.2; Monocytes # (A) 0.5 k/uL (0-1.0); Monocytes % (A) 3 %; Neutrophils # (A) 13.2 k/uL (1.3-7.7); Neutrophils % (A) 93 %; Platelet Count 197 k/uL (150-450); RBC 3.98 m/uL (4.30-5.90); RDW 14.9 % (11.5-15.5); WBC 14.2 k/uL (3.8-10.6)
[2021-07-28] MEDS: DILTIAZEM ORAL 30 MG TAB PO SCH ×2 (08:07→20:40)
[2021-07-28] MEDS: FOLIC ACID 1 MG TAB PO SCH (08:07)
[2021-07-28] MEDS: RIVAROXABAN 15 MG TAB PO SCH (08:08)
[2021-07-28] MEDS: FUROSEMIDE 40 MG TAB PO SCH ×2 (08:09→17:08)
[2021-07-28] MEDS: allopurinoL 100 MG TAB PO SCH ×2 (08:09→21:57)
[2021-07-28] MEDS: METOPROLOL TARTRATE 50 MG TAB PO SCH ×2 (08:09→20:41)
[2021-07-28] MEDS: CHOLECALCIFEROL 25 MCG (1000 IU) TABLET PO SCH (08:09)
[2021-07-28] MEDS: FLECAINIDE 50 MG TAB PO SCH ×2 (08:09→21:57)
[2021-07-28] MEDS: LORATADINE 10 MG TAB PO SCH (08:09)
[2021-07-28] MEDS: MAGNESIUM OXIDE 400 MG TAB PO SCH (08:10)
[2021-07-28] MEDS: PRAVASTATIN SODIUM 20 MG TAB PO SCH (08:10)
[2021-07-28] MEDS: ISOSORBIDE MONONITRATE ER 30 MG TAB.ER.24H PO SCH (08:10)
[2021-07-28] MEDS: FOLIC ACID-VIT B COMPLEX-VIT C 1 CAP PO SCH (08:10)
[2021-07-28] MEDS: hydrALAZINE HCL 50 MG TAB PO SCH ×3 (08:10→20:41)
[2021-07-28] MEDS: HEPARIN SODIUM,PORCINE/PF 5,000 UNIT/0.5 ML SYRINGE SQ SCH ×2 (08:12→15:51)
[2021-07-28] MEDS ORDERED: CALCIUM CARBONATE 500 MG CHEWABLE PO PRN (09:51)
[2021-07-28] MEDS: IPRATROPIUM-ALBUTEROL 3 ML NEB INHALATION SCH ×4 (10:08→20:39)
[2021-07-28 12:01] LABS: Glucose,Whole Blood 191 mg/dL (75-99)
[2021-07-28] MEDS: SIMETHICONE 80 MG CHEWABLE PO SCH ×2 (12:06→20:53)
[2021-07-28 12:11] LABS: Calcium 8.5 mg/dL (8.4-10.2); Potassium 4.1 mmol/L (3.5-5.1)
--- NOTE | 2021-07-28 12:33 | P.PN ---
Subjective Progress Note Date: 07/28/21 Principal diagnosis: Acute exacerbation of COPD, possible underlying bilateral pneumonia 66-year-old male with a history of atrial fibrillation, CAD, heart failure, COPD, diabetes mellitus, hypertension, liver cirrhosis, myocardial infarction, pacemaker placement, among other things, who apparently presents to the emergency department, with complaints of increasing shortness of breath, abdominal distention and bloating. I recently saw him in the office. At that time he was doing well from the COPD standpoint. More recently, he came into the hospital with similar complaints, and end up having a computed tomography scan which showed a mass in the left chest. He was previously seen by my partner. A PET scan was ordered. The patient states that he's feeling reasonably well today but he still short of breath practically on exertion. He denies coughing up any phlegm. He does have some wheezing and tightness in his chest. In addition, he has some abdominal distention. White count 8.4, hemoglobin 12.9, hematocrit 40.2, platelet count 151,000. Sodium 125, potassium 4.1, chlorides 88, CO2 23, anion gap 14, BUN 53, and creatinine 2.17. Troponins are 0.029 is 0.026. N-terminal proBNP was elevated at 5740. Chest x-rays consistent with bilateral pneumonia. It's more left-sided than right-sided. Small pleural effusions are noted. A computed tomography scan done on July 25 shows a nodular density in the left lung, mostly in the left upper lobe. It is irregular, and may be consistent with bronchogenic carcinoma. There may be some left hilar adenopathy. On 07/28/2021 patient seen in follow-up on selective care unit. He sitting up in the chair, denies any acute distress, currently on 2 L of oxygen pulse ox is 90-94%, no fever or chills, but a signs are stable, patient does get short of breath with exertion, occasional cough, no hemoptysis, no chest discomfort. He is complaining of abdominal discomfort, recently CT of the chest, abdomen and pelvis from 07/25/2021 showed diverticular changes associated with the sigmoid colon, and some adenopathy along the lesser curvature of the stomach, after abdomen within the mesentery. CT of the chest findings were worrisome for bronchogenic carcinoma in the left upper lobe. Patient is on Levaquin for antibiotic coverage. Today's labs have been reviewed, his white blood cell count is 14.2, hemoglobin is 12.9, sodium is 124, potassium is 4.1, chloride is 87, BUN is 78, creatinine is 2.4, proBNP was elevated at 5740, patient is on home dose Lasix 40 mg twice daily. He does have history of chronic CHF, CTD stage IV, and history of liver cirrhosis. He seems to be breathing comfortably today, he does not seem to be in any acute distress. Objective - Vital Signs Vital signs: Vital Signs Temp 98.1 F 07/28/21 11:18 Pulse 79 07/28/21 11:24 Resp 18 07/28/21 11:24 BP 146/75 07/28/21 11:18 Pulse Ox 90 L 07/28/21 11:18 Intake & Output 07/27/21 07/28/21 07/28/21 18:59 06:59 18:59 Intake Total 480 Balance 480 Weight 92.1 kg Intake: Oral 480 Other: Voiding Method Toilet - Exam GENERAL EXAM: Alert, very pleasant, 66-year-old white male, on 2 L of oxygen pulse ox of 90-94% comfortable in no apparent distress. HEAD: Normocephalic/atraumatic. EYES: Normal reaction of pupils, equal size. Conjunctiva pink, sclera white. NOSE: Clear with pink turbinates. THROAT: No erythema or exudates. NECK: No masses, no JVD, no thyroid enlargement, no adenopathy. CHEST: No chest wall deformity. Symmetrical expansion. LUNGS: Equal air entry with no crackles, wheeze, rhonchi or dullness. CVS: Regular rate and rhythm, normal S1 and S2, no gallops, no murmurs, no rubs ABDOMEN: Soft, nontender. No hepatosplenomegaly, normal bowel sounds, no guarding or rigidity. EXTREMITIES: No clubbing, no edema, no cyanosis, 2+ pulses and upper and lower extremities. MUSCULOSKELETAL: Muscle strength and tone normal. SPINE: No scoliosis or deformity SKIN: No rashes CENTRAL NERVOUS SYSTEM: Alert and oriented -3. No focal deficits, tone is normal in all 4 extremities. PSYCHIATRIC: Alert and oriented -3. Appropriate affect. Intact judgment and insight. - Labs CBC & Chem 7: 07/28/21 06:45 07/28/21 06:45 Labs: Abnormal Lab Results - Last 24 Hours (Table) 07/27/21 07/27/21 07/27/21 Range/Units 08:09 16:20 17:02 WBC (3.8-10.6) k/uL RBC (4.30-5.90) m/uL Hgb (13.0-17.5) gm/dL Hct (39.0-53.0) % Neutrophils # (1.3-7.7) k/uL Lymphocytes # (1.0-4.8) k/uL Sodium 125 L (137-145) mmol/L Chloride 88 L (98-107) mmol/L BUN 53 H (9-20) mg/dL Creatinine 2.17 H (0.66-1.25) mg/dL Glucose 331 H (74-99) mg/dL POC Glucose (mg/dL) 365 H (75-99) mg/dL ALT 57 H (4-49) U/L Alkaline Phosphatase 183 H (38-126) U/L Urine Protein Trace H (Negative) Urine Glucose (UA) 2+ H (Negative) 07/27/21 07/28/21 07/28/21 Range/Units 20:41 06:12 06:45 WBC 14.2 H (3.8-10.6) k/uL RBC 3.98 L (4.30-5.90) m/uL Hgb 12.9 L (13.0-17.5) gm/dL Hct 37.5 L (39.0-53.0) % Neutrophils # 13.2 H (1.3-7.7) k/uL Lymphocytes # 0.5 L (1.0-4.8) k/uL Sodium (137-145) mmol/L Chloride (98-107) mmol/L BUN (9-20) mg/dL Creatinine (0.66-1.25) mg/dL Glucose (74-99) mg/dL POC Glucose (mg/dL) 269 H 158 H (75-99) mg/dL ALT (4-49) U/L Alkaline Phosphatase (38-126) U/L Urine Protein (Negative) Urine Glucose (UA) (Negative) 07/28/21 07/28/21 Range/Units 06:45 11:41 WBC (3.8-10.6) k/uL RBC (4.30-5.90) m/uL Hgb (13.0-17.5) gm/dL Hct (39.0-53.0) % Neutrophils # (1.3-7.7) k/uL Lymphocytes # (1.0-4.8) k/uL Sodium 124 L (137-145) mmol/L Chloride 87 L (98-107) mmol/L BUN 78 H (9-20) mg/dL Creatinine 2.40 H (0.66-1.25) mg/dL Glucose 153 H (74-99) mg/dL POC Glucose (mg/dL) 191 H (75-99) mg/dL ALT (4-49) U/L Alkaline Phosphatase (38-126) U/L Urine Protein (Negative) Urine Glucose (UA) (Negative) Assessment and Plan Plan: Assessment: #1. Shortness of breath, multifactorial, related to underlying history of COPD, and chronic CHF, possibility of underlying bilateral pneumonia is not entirely excluded. COVID-19 PCR was negative #2. CT chest abdomen and pelvis dated 07/25/2021 showing an irregular density/mass in the left lung, consistent with bronchogenic carcinoma. Patient is scheduled for an outpatient PET scan on 08/13/2021 #3. History of atrial fibrillation on Xarelto #4. History of CHF with diastolic dysfunction #5. Chronic kidney disease stage IV #6. History of coronary artery disease #7. History of COPD #8. History of diabetes multiple acute #9. Hypertension #10. Hyperlipidemia #11. History of liver cirrhosis #12. History of permanent pacemaker insertion #13. Hyponatremia, possibly hypovolemic related to chronic CHF and liver cirrhosis, possibility of SIADH is not entirely excluded Plan: Continue antibiotics Continue home dose Lasix Daily labs, electrolytes, and renal profile Follow-up chest x-ray tomorrow Follow-up on calcitonin We'll continue to follow I performed a history & physical examination of the patient and discussed their management with my nurse practitioner, Jojo Langford. I reviewed the nurse practitioner's note and agree with the documented findings and plan of care. Lung sounds are positive for diminished breath sounds throughout the lung tobias . The findings and the impression was discussed with the patient. I attest to the documentation by the nurse practitioner. Time with Patient: Less than 30
--- NOTE | 2021-07-28 12:35 | P.PN ---
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 He follows in the office with Dr. Morgan. We have been asked to see in consultation for april dela cruz. Patient presents to the hospital with shortness of breath and worsening dyspnea on exertion. He states after being discharged on 07/25 he continued to be short of breath. He also endorses some fullness in his abdomen. Patient denies chest pain, palpitations, lower extremity edema, fatigue, weakness, lightheadedness, syncope. He denies symptoms of orthopnea or PND. Patient recently presented to the hospital on 07/25 with shortness of breath and abdominal pain. Computed tomography scan of the chest, abdomen and pelvis revealed bronchogenic left upper lobe mass over pneumonia, liver cirrhosis, suspicion for malignancy of lung mass. Pulmonary was consulted and patient was set up for a PET scan as an outpatient. Patient was discharged at that time in stable condition. Patient was started on IV Levaquin for treatment of pneumonia. Chest xray bilateral pneumonia is more in the left side of his slightly increased compared to 07/25. Small pleural effusions without much change. 07/28/21 patient seen at bedside, no acute distress. Patient's breathing has improved. Echocardiogram revealed left ventricular systolic function is normal and EF between 55-60%, Pacemaker wire seen in RV and RA, LA is mildly dilated, mild aortic stenosis with peak/mean gradient of 18 mmHg/11 mmHg, mild mitral regurgitation, mild tricuspid regurgitation. laboratory data reviewed sodium 124, potassium 4.1, BUN 78, serum creatinine 2.4, WBC 14.2, hemoglobin 12.9, platelets 197. PHYSICAL EXAMINATION Blood pressure 146/75, heart rate 79, afebrile, maintaining oxygen saturations 94% on 2 L nasal cannula. CONSTITUTIONAL: No apparent distress. HEENT: Head is normocephalic. Neck Supple No JVD. CHEST EXAMINATION: Lungs are diminished bilaterally, mild crackles in the left lower lobe . HEART EXAMINATION: Iregular rate and rhythm. S1, S2 heard. Systolic murmur, no gallops or rubs. ABDOMEN: Soft, nontender. Positive bowel sounds. EXTREMITIES: 2+ peripheral pulses, no lower extremity edema and no calf tenderness. NEUROLOGIC EXAMINATION: Patient is awake, alert and oriented x3. ASSESSMENT Shortness of breath, multifactorial appears to be more pulmonary then congestive heart failure Elevated troponin x 1, not indicative of acute coronary syndrome. Bilateral Pneumonia Acute on chronic diastolic heart failure Hyponatremia Acute on chronic renal failure Persistent atrial fibrillation on [facility] anti-coagulation Xarelto Sick sinus syndrome s/p permanent pacemaker implantation Coronary artery disease s/p PCI to diagonal branch and circumflex last in 2018 History of COPD Type 2 Diabetes mellitus Hypertension Dyslipidemia History of chronic liver disease PLAN We will continue present medical therapy Continue PO Lasix 40mg BID Continue home medication Cardizem 90 mg twice a day, flecainide 50 mg twice a day, hydralazine 100 mg 3 times a day, Imdur 30 mg daily, metoprolol titrate 50 mg twice a day, statin Continue Xarelto for thromboembolic protection. Further recommendations based on clinical course Nurse Practitioner note has been reviewed, I agree with a documented findings and plan of care. Patient was seen and examined. Objective - Vital Signs Vital signs: Vital Signs Temp 98.1 F 07/28/21 11:18 Pulse 79 07/28/21 11:24 Resp 18 07/28/21 11:24 BP 146/75 07/28/21 11:18 Pulse Ox 90 L 07/28/21 11:18 Intake & Output 07/27/21 07/28/21 07/28/21 18:59 06:59 18:59 Intake Total 480 Balance 480 Weight 92.1 kg Intake: Oral 480 Other: Voiding Method Toilet - Labs CBC & Chem 7: 07/28/21 06:45 07/28/21 06:45 Labs: Abnormal Lab Results - Last 24 Hours (Table) 07/27/21 07/27/21 07/27/21 Range/Units 08:09 16:20 17:02 WBC (3.8-10.6) k/uL RBC (4.30-5.90) m/uL Hgb (13.0-17.5) gm/dL Hct (39.0-53.0) % Neutrophils # (1.3-7.7) k/uL Lymphocytes # (1.0-4.8) k/uL Sodium 125 L (137-145) mmol/L Chloride 88 L (98-107) mmol/L BUN 53 H (9-20) mg/dL Creatinine 2.17 H (0.66-1.25) mg/dL Glucose 331 H (74-99) mg/dL POC Glucose (mg/dL) 365 H (75-99) mg/dL ALT 57 H (4-49) U/L Alkaline Phosphatase 183 H (38-126) U/L Urine Protein Trace H (Negative) Urine Glucose (UA) 2+ H (Negative) 07/27/21 07/28/21 07/28/21 Range/Units 20:41 06:12 06:45 WBC 14.2 H (3.8-10.6) k/uL RBC 3.98 L (4.30-5.90) m/uL Hgb 12.9 L (13.0-17.5) gm/dL Hct 37.5 L (39.0-53.0) % Neutrophils # 13.2 H (1.3-7.7) k/uL Lymphocytes # 0.5 L (1.0-4.8) k/uL Sodium (137-145) mmol/L Chloride (98-107) mmol/L BUN (9-20) mg/dL Creatinine (0.66-1.25) mg/dL Glucose (74-99) mg/dL POC Glucose (mg/dL) 269 H 158 H (75-99) mg/dL ALT (4-49) U/L Alkaline Phosphatase (38-126) U/L Urine Protein (Negative) Urine Glucose (UA) (Negative) 07/28/21 07/28/21 Range/Units 06:45 11:41 WBC (3.8-10.6) k/uL RBC (4.30-5.90) m/uL Hgb (13.0-17.5) gm/dL Hct (39.0-53.0) % Neutrophils # (1.3-7.7) k/uL Lymphocytes # (1.0-4.8) k/uL Sodium 124 L (137-145) mmol/L Chloride 87 L (98-107) mmol/L BUN 78 H (9-20) mg/dL Creatinine 2.40 H (0.66-1.25) mg/dL Glucose 153 H (74-99) mg/dL POC Glucose (mg/dL) 191 H (75-99) mg/dL ALT (4-49) U/L Alkaline Phosphatase (38-126) U/L Urine Protein (Negative) Urine Glucose (UA) (Negative)
[2021-07-28] MEDS ORDERED: TEMAZEPAM 15 MG CAP PO PRN (16:38)
[2021-07-28 16:58] LABS: Glucose,Whole Blood 91 mg/dL (75-99)
--- NOTE | 2021-07-28 19:09 | PN ---
PROGRESS NOTE DATE OF SERVICE: 07/28/2021 This 66-year-old gentleman who was admitted with COPD acute exacerbation as well as bilateral pneumonia is being closely monitored. Complained of insomnia. No chest pain. No palpitations. No fever. PHYSICAL EXAMINATION: Alert and oriented x3. Pulse 70, blood pressure 130/70, respirations 16, temperature 97.6, pulse ox 93% on 2 L. HEENT: Conjunctivae normal. Oral mucosa moist. NECK: No jugular venous distention. No lymph node enlargement. CARDIOVASCULAR: S1, S2, muffled. No S3, no S4, RESPIRATORY: Diminished breath sounds at the bases. Bilateral scattered rhonchi and crackles. ABDOMEN: Soft. LEGS: No edema, no swelling. NERVOUS SYSTEM: No focal deficits. LAB STUDIES: WBC 14, hemoglobin 12.9, sodium 124, potassium 4.1. ASSESSMENT: 1. Acute bilateral pneumonia, possibly gram-negative with acute hypoxic respiratory failure present on admission. 2. Chronic obstructive pulmonary disease acute exacerbation as well as congestive heart failure acute exacerbation with acute on chronic diastolic dysfunction with shortness of breath, multifactorial. 3. Increased WBC. 4. Hyponatremia. 5. Elevated creatinine with acute renal failure with acute kidney injury. 6. Chronic kidney disease, stage 3 baseline possibly. 7. Elevated ALT and alkaline phosphatase. 8. Troponin 0.047, indeterminate. 9. Possible left lung mass and bronchogenic carcinoma under investigation with outpatient PET and possible navigational bronchoscopy per Pulmonary. 10.History atrial fibrillation. 11.History of coronary artery disease. 12.Diabetes mellitus type 2. 13.Hypertension. 14.Hyperlipidemia. 15.History of chronic liver disease and cirrhosis of liver previously. 16.History of prostate disorder. 17.History of tachy-chary syndrome and pacemaker. 18.History of peripheral neuropathy. 19.History of right pleural effusion. 20.History of iron infusion. 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 22.History of celiac disease. 23.History of dermatitis herpetiformis. 24.History of cardiac ablation. 25.History of CAD, stent. 26.Remote history of nicotine dependence. 27.FULL CODE. RECOMMENDATIONS AND DISCUSSION: I recommend to continue current management and symptomatic treatment. Otherwise, at this time I would recommend continue with current medications. Continue the bronchodilators. Continue the antibiotics. Taper the steroids further and sedate him at night. Prognosis guarded. Further recommendations to follow. MMODL / IJN: [id number] /
[2021-07-28 20:17] LABS: Glucose,Whole Blood 176 mg/dL (75-99)
[2021-07-28] MEDS: MONTELUKAST 10 MG TAB PO SCH (20:40)
[2021-07-28] MEDS: LEVOFLOXACIN 750MG-D5W PMX 750 MG in DEXTROSE/WATER 1 150ML.BAG IVPB SCH (20:52)
[2021-07-28] MEDS ORDERED: MELATONIN 5 MG TABLET PO SCH (21:00)
[2021-07-29] MEDS: HEPARIN SODIUM,PORCINE/PF 5,000 UNIT/0.5 ML SYRINGE SQ SCH ×2 (06:11→08:28)
[2021-07-29 06:12] LABS: Glucose,Whole Blood 157 mg/dL (75-99)
[2021-07-29] MEDS: INSULIN DETEMIR (LEVEMIR) 100 UNIT/ML SYR SQ SCH ×2 (06:57→21:50)
[2021-07-29] MEDS: PANTOPRAZOLE 40 MG TABLET PO SCH (06:57)
[2021-07-29 07:46] LABS: Basophils % (A) 0 %; Eosinophils % (A) 0 %; HCT 36.4 % (39.0-53.0); HGB 12.1 gm/dL (13.0-17.5); Hypochromasia Slight; Lymphocytes # (A) 0.3 k/uL (1.0-4.8); Lymphocytes % (A) 3 %; MCHC 33.3 g/dL (31.0-37.0); MCV 96.3 fL (80.0-100.0); Mean Platelet Volume 9.3; Monocytes # (A) 0.5 k/uL (0-1.0); Monocytes % (A) 5 %; Neutrophils # (A) 9.7 k/uL (1.3-7.7); Neutrophils % (A) 91 %; Platelet Count 171 k/uL (150-450); RBC 3.78 m/uL (4.30-5.90); RDW 15.2 % (11.5-15.5); WBC 10.6 k/uL (3.8-10.6)
[2021-07-29] MEDS: IPRATROPIUM-ALBUTEROL 3 ML NEB INHALATION SCH ×4 (08:08→19:50)
[2021-07-29] MEDS: INSULIN ASPART (NovoLOG) 100 UNIT/ML VIAL SQ SCH ×7 (08:27→21:48)
[2021-07-29] MEDS: DILTIAZEM ORAL 30 MG TAB PO SCH ×2 (08:28→21:45)
[2021-07-29] MEDS: allopurinoL 100 MG TAB PO SCH ×2 (08:28→21:44)
[2021-07-29] MEDS: CHOLECALCIFEROL 25 MCG (1000 IU) TABLET PO SCH (08:28)
[2021-07-29] MEDS: FOLIC ACID-VIT B COMPLEX-VIT C 1 CAP PO SCH (08:29)
[2021-07-29] MEDS: FLECAINIDE 50 MG TAB PO SCH ×2 (08:29→21:44)
[2021-07-29] MEDS: FOLIC ACID 1 MG TAB PO SCH (08:29)
--- NOTE | 2021-07-29 08:29 | XR ---
EXAMINATION TYPE: XR chest 1V portable DATE OF EXAM: 07/29/2021 COMPARISON: Chest x-ray 07/26/2021 HISTORY: Pneumonia TECHNIQUE: Single frontal view of the chest is obtained. FINDINGS: There is more confluent density in the right upper lobe than on prior exam. Abnormal airsp stu disease again noted in the left lung. No evident pneumothorax. There is blunting the right costop hrenic angle. Cardiac mediastinal silhouette is stable. Generator in the left pectoral region is note d, leads in right atrium and ventricle. IMPRESSION: Correlate for pneumonia, edema, probable right pleural effusion
[2021-07-29] MEDS: LORATADINE 10 MG TAB PO SCH (08:30)
[2021-07-29] MEDS: MAGNESIUM OXIDE 400 MG TAB PO SCH (08:30)
[2021-07-29] MEDS: hydrALAZINE HCL 50 MG TAB PO SCH ×3 (08:30→21:45)
[2021-07-29] MEDS: RIVAROXABAN 15 MG TAB PO SCH (08:30)
[2021-07-29] MEDS: FUROSEMIDE 40 MG TAB PO SCH ×2 (08:30→15:59)
[2021-07-29] MEDS: METOPROLOL TARTRATE 50 MG TAB PO SCH ×2 (08:30→21:44)
[2021-07-29] MEDS: PRAVASTATIN SODIUM 20 MG TAB PO SCH (08:30)
[2021-07-29] MEDS: ISOSORBIDE MONONITRATE ER 30 MG TAB.ER.24H PO SCH (08:30)
[2021-07-29] MEDS: SIMETHICONE 80 MG CHEWABLE PO SCH ×3 (08:31→21:45)
[2021-07-29 08:34] LABS: Calcium 8.3 mg/dL (8.4-10.2); Potassium 3.9 mmol/L (3.5-5.1)
--- NOTE | 2021-07-29 10:57 | P.PN ---
Subjective Progress Note Date: 07/29/21 Principal diagnosis: Acute exacerbation of COPD, possible underlying bilateral pneumonia 66-year-old male with a history of atrial fibrillation, CAD, heart failure, COPD, diabetes mellitus, hypertension, liver cirrhosis, myocardial infarction, pacemaker placement, among other things, who apparently presents to the emergency department, with complaints of increasing shortness of breath, abdominal distention and bloating. I recently saw him in the office. At that time he was doing well from the COPD standpoint. More recently, he came into the hospital with similar complaints, and end up having a computed tomography scan which showed a mass in the left chest. He was previously seen by my partner. A PET scan was ordered. The patient states that he's feeling reasonably well today but he still short of breath practically on exertion. He denies coughing up any phlegm. He does have some wheezing and tightness in his chest. In addition, he has some abdominal distention. White count 8.4, hemoglobin 12.9, hematocrit 40.2, platelet count 151,000. Sodium 125, potassium 4.1, chlorides 88, CO2 23, anion gap 14, BUN 53, and creatinine 2.17. Troponins are 0.029 is 0.026. N-terminal proBNP was elevated at 5740. Chest x-rays consistent with bilateral pneumonia. It's more left-sided than right-sided. Small pleural effusions are noted. A computed tomography scan done on July 25 shows a nodular density in the left lung, mostly in the left upper lobe. It is irregular, and may be consistent with bronchogenic carcinoma. There may be some left hilar adenopathy. On 07/28/2021 patient seen in follow-up on selective care unit. He sitting up in the chair, denies any acute distress, currently on 2 L of oxygen pulse ox is 90-94%, no fever or chills, but a signs are stable, patient does get short of breath with exertion, occasional cough, no hemoptysis, no chest discomfort. He is complaining of abdominal discomfort, recently CT of the chest, abdomen and pelvis from 07/25/2021 showed diverticular changes associated with the sigmoid colon, and some adenopathy along the lesser curvature of the stomach, after abdomen within the mesentery. CT of the chest findings were worrisome for bronchogenic carcinoma in the left upper lobe. Patient is on Levaquin for antibiotic coverage. Today's labs have been reviewed, his white blood cell count is 14.2, hemoglobin is 12.9, sodium is 124, potassium is 4.1, chloride is 87, BUN is 78, creatinine is 2.4, proBNP was elevated at 5740, patient is on home dose Lasix 40 mg twice daily. He does have history of chronic CHF, CTD stage IV, and history of liver cirrhosis. He seems to be breathing comfortably today, he does not seem to be in any acute distress. On 07/29/2021 patient seen in follow-up on selective care unit. He sitting up in the chair, in no acute distress, currently on 3 L of oxygen this pulse ox is 94%, he is afebrile, hemodynamically is been stable, remains on antibiotics in the form of Levaquin, his had no fever or chills overnight, he is on home dose Lasix 40 mg twice daily, no significant edema involving his lower extremities, he is in -0.5 kilos in the last 24 hours. Patient has occasional cough, he states he is having some nosebleeds related to drying of his nasopharyngeal muc ous membranes, and oxygen. Denies coughing up any blood. His labs have been reviewed, white blood cell count is 10.6, hemoglobin is 12.1, sodium is 126, potassium 3.9, chloride is 89, BUN is 88 and creatinine is 2.30. Sputum culture was sent, showing few PMNs, few gram-positive cocci, gram-positive bacilli and gram-negative bacilli, fungal culture is pending. He's had no acute events overnight, follow-up chest x-ray has been reviewed. Objective - Vital Signs Vital signs: Vital Signs Temp 97.8 F 07/29/21 04:00 Pulse 68 07/29/21 08:19 Resp 16 07/29/21 04:00 BP 146/75 07/29/21 04:00 Pulse Ox 94 L 07/29/21 04:00 Intake & Output 07/28/21 07/29/21 07/29/21 18:59 06:59 18:59 Intake Total 358 Balance 358 Weight 91.6 kg Intake: Oral 358 Other: Voiding Method Toilet - Exam GENERAL EXAM: Alert, very pleasant, 66-year-old white male, on 2 L of oxygen pulse ox of 90-94% comfortable in no apparent distress. HEAD: Normocephalic/atraumatic. EYES: Normal reaction of pupils, equal size. Conjunctiva pink, sclera white. NOSE: Clear with pink turbinates. THROAT: No erythema or exudates. NECK: No masses, no JVD, no thyroid enlargement, no adenopathy. CHEST: No chest wall deformity. Symmetrical expansion. LUNGS: Equal air entry with no crackles, wheeze, rhonchi or dullness. CVS: Regular rate and rhythm, normal S1 and S2, no gallops, no murmurs, no rubs ABDOMEN: Soft, nontender. No hepatosplenomegaly, normal bowel sounds, no guarding or rigidity. EXTREMITIES: No clubbing, no edema, no cyanosis, 2+ pulses and upper and lower extremities. MUSCULOSKELETAL: Muscle strength and tone normal. SPINE: No scoliosis or deformity SKIN: No rashes CENTRAL NERVOUS SYSTEM: Alert and oriented -3. No focal deficits, tone is normal in all 4 extremities. PSYCHIATRIC: Alert and oriented -3. Appropriate affect. Intact judgment and insight. - Labs CBC & Chem 7: 07/29/21 07:09 07/29/21 07:09 Labs: Abnormal Lab Results - Last 24 Hours (Table) 07/28/21 07/28/21 07/28/21 Range/Units 06:45 11:41 20:15 RBC (4.30-5.90) m/uL Hgb (13.0-17.5) gm/dL Hct (39.0-53.0) % Neutrophils # (1.3-7.7) k/uL Lymphocytes # (1.0-4.8) k/uL Sodium 124 L (137-145) mmol/L Chloride 87 L (98-107) mmol/L BUN 78 H (9-20) mg/dL Creatinine 2.40 H (0.66-1.25) mg/dL Glucose 153 H (74-99) mg/dL POC Glucose (mg/dL) 191 H 176 H (75-99) mg/dL Calcium (8.4-10.2) mg/dL 07/29/21 07/29/21 07/29/21 Range/Units 06:10 07:09 07:09 RBC 3.78 L (4.30-5.90) m/uL Hgb 12.1 L (13.0-17.5) gm/dL Hct 36.4 L (39.0-53.0) % Neutrophils # 9.7 H (1.3-7.7) k/uL Lymphocytes # 0.3 L (1.0-4.8) k/uL Sodium 126 L (137-145) mmol/L Chloride 89 L (98-107) mmol/L BUN 88 H (9-20) mg/dL Creatinine 2.30 H (0.66-1.25) mg/dL Glucose 124 H (74-99) mg/dL POC Glucose (mg/dL) 157 H (75-99) mg/dL Calcium 8.3 L (8.4-10.2) mg/dL Microbiology - Last 24 Hours (Table) 07/28/21 06:30 Gram Stain - Preliminary Sputum Sputum Culture - Preliminary Assessment and Plan Plan: Assessment: #1. Shortness of breath, multifactorial, related to underlying history of COPD, and chronic CHF, possibility of underlying bilateral pneumonia is not entirely excluded. COVID-19 PCR was negative #2. CT chest abdomen and pelvis dated 07/25/2021 showing an irregular density/mass in the left lung, consistent with bronchogenic carcinoma. Patient is scheduled for an outpatient PET scan on 08/13/2021 #3. History of atrial fibrillation on Xarelto #4. History of CHF with diastolic dysfunction #5. Chronic kidney disease stage IV #6. History of coronary artery disease #7. History of COPD #8. History of diabetes multiple acute #9. Hypertension #10. Hyperlipidemia #11. History of liver cirrhosis #12. History of permanent pacemaker insertion #13. Hyponatremia, possibly hypovolemic related to chronic CHF and liver cirrhosis, possibility of SIADH is not entirely excluded Plan: Continue current medical treatment Today's chest x-ray has been reviewed Continue Levaquin Continue home dose Lasix We will obtain ultrasound of the right chest May consider right-sided thoracentesis if it shows a sizable pleural fluid pocket I performed a history & physical examination of the patient and discussed their management with my nurse practitioner, Jojo Langford. I reviewed the nurse practitioner's note and agree with the documented findings and plan of care. Lung sounds are positive for diminished breath sounds throughout the lung tobias. The findings and the impression was discussed with the patient. I attest to the documentation by the nurse practitioner. Time with Patient: Less than 30
[2021-07-29 11:48] LABS: Glucose,Whole Blood 94 mg/dL (75-99)
--- NOTE | 2021-07-29 12:12 | P.PN ---
Subjective Progress Note Date: 07/29/21 Principal diagnosis: shortness of breath The patient was seen today. He stated that he is feeling better indeterminable shortness of breath. He denies any symptoms of chest pain or chest discomfort. Hemodynamically he is stable as well. The chest x-ray from today showed right pleural effusion and he is in process of having an ultrasound of the chest for possible right thoracentesis. Otherwise the creatinine is a stable. He continues to be on Lasix by mouth. Objective - Vital Signs Vital signs: Vital Signs Temp 97.2 F L 07/29/21 08:00 Pulse 64 07/29/21 11:46 Resp 18 07/29/21 08:00 BP 147/69 07/29/21 08:00 Pulse Ox 96 07/29/21 08:00 Intake & Output 07/28/21 07/29/21 07/29/21 18:59 06:59 18:59 Intake Total 358 Balance 358 Weight 91.6 kg Intake: Oral 358 Other: Voiding Method Toilet Toilet - Constitutional General appearance: Present: no acute distress - Respiratory Respiratory: bilateral: diminished - Cardiovascular Rhythm: regular - Labs CBC & Chem 7: 07/29/21 07:09 07/29/21 07:09 Labs: Abnormal Lab Results - Last 24 Hours (Table) 07/28/21 07/28/21 07/29/21 Range/Units 06:45 20:15 06:10 RBC (4.30-5.90) m/uL Hgb (13.0-17.5) gm/dL Hct (39.0-53.0) % Neutrophils # (1.3-7.7) k/uL Lymphocytes # (1.0-4.8) k/uL Sodium 124 L (137-145) mmol/L Chloride 87 L (98-107) mmol/L BUN 78 H (9-20) mg/dL Creatinine 2.40 H (0.66-1.25) mg/dL Glucose 153 H (74-99) mg/dL POC Glucose (mg/dL) 176 H 157 H (75-99) mg/dL Calcium (8.4-10.2) mg/dL 07/29/21 07/29/21 Range/Units 07:09 07:09 RBC 3.78 L (4.30-5.90) m/uL Hgb 12.1 L (13.0-17.5) gm/dL Hct 36.4 L (39.0-53.0) % Neutrophils # 9.7 H (1.3-7.7) k/uL Lymphocytes # 0.3 L (1.0-4.8) k/uL Sodium 126 L (137-145) mmol/L Chloride 89 L (98-107) mmol/L BUN 88 H (9-20) mg/dL Creatinine 2.30 H (0.66-1.25) mg/dL Glucose 124 H (74-99) mg/dL POC Glucose (mg/dL) (75-99) mg/dL Calcium 8.3 L (8.4-10.2) mg/dL Microbiology - Last 24 Hours (Table) 07/28/21 06:30 Gram Stain - Preliminary Sputum Sputum Culture - Preliminary Assessment and Plan Assessment: assessment #1 shortness of breath likely to be multi-factorial #2 pneumonia #3 chronic diastolic heart failure #4 cardiac arrhythmia with paroxysmal atrial fibrillation #5 history of permanent pacemaker #6 chronic kidney disease Plan #1 continue the current medical regimen #2 follow-up on the ultrasound of the chest #3 no need for further #4 continue oral anticoagulation
--- NOTE | 2021-07-29 14:10 | US ---
EXAMINATION TYPE: US chest DATE OF EXAM: 07/29/2021 COMPARISON: Chest x-ray 07/29/2021 CLINICAL HISTORY: right pleural effusion. Exam done portable. TECHNIQUE: Targeted ultrasound of the posterior lower right hemithorax EXAM MEASUREMENTS: Right Pleural Effusion pocket size: 8.4 cm Right skin surface to fluid distance: 2.7 cm Right side marked for possible thoracentesis outside the dept. Pulmonologists are able to review the images in the patient?s EMR. IMPRESSIONS: Pleural effusion
[2021-07-29] MEDS ORDERED: TEMAZEPAM 7.5 MG CAP PO PRN (15:46)
[2021-07-29 16:54] LABS: Glucose,Whole Blood 94 mg/dL (75-99)
[2021-07-29 19:47] VITALS: RESP 18
--- NOTE | 2021-07-29 20:17 | PN ---
PROGRESS NOTE DATE OF SERVICE: 07/29/2021. This 66-year-old gentleman admitted with acute bilateral pneumonia is improving significantly. The most recent chest x-ray which was done today, which was reviewed personally by me, showed bilateral pneumonia which is rather improving. A chest ultrasound was also done which showed right-sided pleural effusion, about 8.4 cm. No chest pain. No palpitations. No fever. PHYSICAL EXAMINATION: Alert and oriented x3. Pulse 74, blood pressure 140/62, respiration 20, temperature normal, pulse ox 93% on 3 L. HEENT: Conjunctivae normal. NECK: No jugular venous distention. CARDIOVASCULAR: S1, S2 muffled. RESPIRATION: Breath sounds diminished at the bases. A few scattered rhonchi and crackles. ABDOMEN: Soft, nontender. No mass palpable. LEGS: No edema. No swelling. NERVOUS SYSTEM: No focal deficit. LAB STUDIES: WBC 10.6, hemoglobin 12.1. Sodium is 126. ASSESSMENT: 1. Acute bilateral pneumonia, possibly Gram-negative, with acute hypoxic respiratory failure, present on admission. 2. Chronic obstructive pulmonary disease, acute exacerbation, as well as congestive heart failure, acute exacerbation, with acute on chronic diastolic dysfunction with shortness of breath, multifactorial. 3. Increased white count. 4. Hyponatremia. 5. Elevated creatinine with acute renal failure with acute kidney injury. 6. Chronic kidney disease, stage 3 baseline possibly. 7. Elevated ALT and alkaline phosphatase. 8. Troponin 0.047, indeterminate. 9. Left lung mass with possible bronchogenic carcinoma, under investigation with outpatient PET scan and possible navigational bronchoscopy per Pulmonary. 10.History of atrial fibrillation. 11.Right pleural effusion. 12.History of coronary artery disease. 13.Diabetes mellitus, type 2. 14.Hypertension. 15.Hyperlipidemia. 16.History of chronic liver disease and cirrhosis of the liver previously. 17.History of prostate disorder. 18.History of tachy-chary syndrome and pacemaker. 19.History of peripheral neuropathy. 20.Right pleural effusion. 21.History of iron infusions. 22.History of asbestos exposure in the remote past. 23.History of celiac disease. 24.History of dermatitis herpetiformis. 25.History of cardiac ablation. 26.History of coronary artery disease, stent. 27.Remote history of nicotine dependence. 28.FULL CODE. RECOMMENDATIONS AND DISCUSSION: I recommend to continue current medications, continue with symptomatic treatment. Continue with the antibiotics. Continue with the rest of the medications. Closely follow with Pulmonary. Guarded prognosis. Further recommendations to follow. MMODL / IJN: [id number] /
[2021-07-29 20:23] LABS: Glucose,Whole Blood 203 mg/dL (75-99)
[2021-07-29] MEDS: MONTELUKAST 10 MG TAB PO SCH (21:44)
--- NOTE | 2021-07-30 03:48 | P.PN ---
Progress Note - Text Progress Note Date: 07/29/21 Patient will require home oxygen via NC @2 L for management of his shortness of breath secondary to congestive heart failure and chronic obstructive pulmonary disease. Prescription provided to case management.
[2021-07-30 06:18] LABS: Glucose,Whole Blood 211 mg/dL (75-99)
[2021-07-30] MEDS: INSULIN DETEMIR (LEVEMIR) 100 UNIT/ML SYR SQ SCH (06:50)
[2021-07-30] MEDS: PANTOPRAZOLE 40 MG TABLET PO SCH (06:50)
[2021-07-30] MEDS: INSULIN ASPART (NovoLOG) 100 UNIT/ML VIAL SQ SCH ×2 (07:48→07:49)
[2021-07-30] MEDS: IPRATROPIUM-ALBUTEROL 3 ML NEB INHALATION SCH ×2 (07:49→11:35)
--- NOTE | 2021-07-30 08:49 | P.PN ---
Subjective Progress Note Date: 07/30/21 Principal diagnosis: shortness of breath The patient was seen this morning. He continues to have shortness of breath which did not seems to be better. He underwent yesterday ultrasound of the chest to evaluate the pleural effusion. Pulmonary team is on the case. Beside that he is experiencing nosebleed. Currently he is on Xarelto 15 mg by mouth daily. He is not on any antiplatelet. Creatinine continues to be stable. He denies any symptoms of chest pain or chest discomfort Objective - Vital Signs Vital signs: Vital Signs Temp 97.8 F 07/30/21 04:00 Pulse 76 07/30/21 04:00 Resp 18 07/30/21 04:00 BP 142/75 07/30/21 04:00 Pulse Ox 90 L 07/30/21 04:00 Intake & Output 07/29/21 07/30/21 07/30/21 18:59 06:59 18:59 Intake Total 538 Balance 538 Weight 91.1 kg Intake: Oral 538 Other: Voiding Method Toilet Toilet - Constitutional General appearance: Present: no acute distress - Respiratory Respiratory: bilateral: diminished - Cardiovascular Rhythm: regular Heart sounds: normal: S1, S2 - Labs CBC & Chem 7: 07/29/21 07:09 07/29/21 07:09 Labs: Abnormal Lab Results - Last 24 Hours (Table) 07/29/21 07/30/21 Range/Units 20:21 06:13 POC Glucose (mg/dL) 203 H 211 H (75-99) mg/dL Microbiology - Last 24 Hours (Table) 07/28/21 06:30 Gram Stain - Preliminary Sputum Sputum Culture - Preliminary Assessment and Plan Assessment: assessment #1 shortness of breath likely to be multi-factorial #2 pneumonia #3 chronic diastolic heart failure #4 cardiac arrhythmia with paroxysmal atrial fibrillation #5 history of permanent pacemaker #6 chronic kidney disease Plan #1 continue the current medical regimen #2 the ultrasound of the chest was performed. Pulmonary TB is on the case #3 monitor the nosebleed. #4 follow-up with the patient
[2021-07-30] MEDS: CHOLECALCIFEROL 25 MCG (1000 IU) TABLET PO SCH (10:05)
[2021-07-30] MEDS: allopurinoL 100 MG TAB PO SCH (10:06)
[2021-07-30] MEDS: DILTIAZEM ORAL 30 MG TAB PO SCH (10:06)
[2021-07-30] MEDS: FUROSEMIDE 40 MG TAB PO SCH (10:07)
[2021-07-30] MEDS: hydrALAZINE HCL 50 MG TAB PO SCH (10:07)
[2021-07-30] MEDS: FOLIC ACID-VIT B COMPLEX-VIT C 1 CAP PO SCH (10:07)
[2021-07-30] MEDS: FLECAINIDE 50 MG TAB PO SCH (10:07)
[2021-07-30] MEDS: FOLIC ACID 1 MG TAB PO SCH (10:07)
[2021-07-30] MEDS: PRAVASTATIN SODIUM 20 MG TAB PO SCH (10:08)
[2021-07-30] MEDS: METOPROLOL TARTRATE 50 MG TAB PO SCH ×2 (10:08→10:09)
[2021-07-30] MEDS: LORATADINE 10 MG TAB PO SCH (10:08)
[2021-07-30] MEDS: SIMETHICONE 80 MG CHEWABLE PO SCH (10:08)
[2021-07-30] MEDS: ISOSORBIDE MONONITRATE ER 30 MG TAB.ER.24H PO SCH (10:08)
[2021-07-30] MEDS: MAGNESIUM OXIDE 400 MG TAB PO SCH (10:09)
--- NOTE | 2021-07-30 10:34 | XR ---
EXAMINATION TYPE: XR chest 1V portable DATE OF EXAM: 07/30/2021 COMPARISON: Chest x-ray 07/29/2021 HISTORY: Status post thoracentesis TECHNIQUE: Single frontal view of the chest is obtained. FINDINGS: There is interval improved aeration at the right lung base. No evident pneumothorax. No ot her significant interval change. IMPRESSION: No evident complication status post right thoracentesis
[2021-07-30] MEDS: RIVAROXABAN 15 MG TAB PO SCH (10:55)
[2021-07-30 11:42] LABS: Glucose,Whole Blood 49 mg/dL (75-99)
[2021-07-30 11:42] LABS: Glucose,Whole Blood 48 mg/dL (75-99)
--- NOTE | 2021-07-30 11:51 | P.PN ---
Subjective Progress Note Date: 07/30/21 Principal diagnosis: Acute exacerbation of COPD, possible underlying bilateral pneumonia 66-year-old male with a history of atrial fibrillation, CAD, heart failure, COPD, diabetes mellitus, hypertension, liver cirrhosis, myocardial infarction, pacemaker placement, among other things, who apparently presents to the emergency department, with complaints of increasing shortness of breath, abdominal distention and bloating. I recently saw him in the office. At that time he was doing well from the COPD standpoint. More recently, he came into the hospital with similar complaints, and end up having a computed tomography scan which showed a mass in the left chest. He was previously seen by my partner. A PET scan was ordered. The patient states that he's feeling reasonably well today but he still short of breath practically on exertion. He denies coughing up any phlegm. He does have some wheezing and tightness in his chest. In addition, he has some abdominal distention. White count 8.4, hemoglobin 12.9, hematocrit 40.2, platelet count 151,000. Sodium 125, potassium 4.1, chlorides 88, CO2 23, anion gap 14, BUN 53, and creatinine 2.17. Troponins are 0.029 is 0.026. N-terminal proBNP was elevated at 5740. Chest x-rays consistent with bilateral pneumonia. It's more left-sided than right-sided. Small pleural effusions are noted. A computed tomography scan done on July 25 shows a nodular density in the left lung, mostly in the left upper lobe. It is irregular, and may be consistent with bronchogenic carcinoma. There may be some left hilar adenopathy. On 07/28/2021 patient seen in follow-up on selective care unit. He sitting up in the chair, denies any acute distress, currently on 2 L of oxygen pulse ox is 90-94%, no fever or chills, but a signs are stable, patient does get short of breath with exertion, occasional cough, no hemoptysis, no chest discomfort. He is complaining of abdominal discomfort, recently CT of the chest, abdomen and pelvis from 07/25/2021 showed diverticular changes associated with the sigmoid colon, and some adenopathy along the lesser curvature of the stomach, after abdomen within the mesentery. CT of the chest findings were worrisome for bronchogenic carcinoma in the left upper lobe. Patient is on Levaquin for antibiotic coverage. Today's labs have been reviewed, his white blood cell count is 14.2, hemoglobin is 12.9, sodium is 124, potassium is 4.1, chloride is 87, BUN is 78, creatinine is 2.4, proBNP was elevated at 5740, patient is on home dose Lasix 40 mg twice daily. He does have history of chronic CHF, CTD stage IV, and history of liver cirrhosis. He seems to be breathing comfortably today, he does not seem to be in any acute distress. On 07/29/2021 patient seen in follow-up on selective care unit. He sitting up in the chair, in no acute distress, currently on 3 L of oxygen this pulse ox is 94%, he is afebrile, hemodynamically is been stable, remains on antibiotics in the form of Levaquin, his had no fever or chills overnight, he is on home dose Lasix 40 mg twice daily, no significant edema involving his lower extremities, he is in -0.5 kilos in the last 24 hours. Patient has occasional cough, he states he is having some nosebleeds related to drying of his nasopharyngeal muc ous membranes, and oxygen. Denies coughing up any blood. His labs have been reviewed, white blood cell count is 10.6, hemoglobin is 12.1, sodium is 126, potassium 3.9, chloride is 89, BUN is 88 and creatinine is 2.30. Sputum culture was sent, showing few PMNs, few gram-positive cocci, gram-positive bacilli and gram-negative bacilli, fungal culture is pending. He's had no acute events overnight, follow-up chest x-ray has been reviewed. On 07/30/2021 patient seen in follow-up on selective care, patient has developed a worsening nosebleed. He was on oral aspirin, and Cymbalta which are both on hold currently. He was also given subcutaneous heparin yesterday which was stopped. From pulmonary perspective he is mildly short of breath, but appears to be in no acute distress, ultrasound the chest showed a 4 cm pleural fluid pocket on the right. Sputum culture has shown no growth. Patient remains on Levaquin for empiric antibiotic coverage. He denies any chest discomfort, only occasional cough, no significant sputum production. Objective - Vital Signs Vital signs: Vital Signs Temp 98.2 F 07/30/21 08:00 Pulse 63 07/30/21 11:36 Resp 18 07/30/21 11:36 BP 180/85 07/30/21 08:00 Pulse Ox 95 07/30/21 11:36 Intake & Output 07/29/21 07/30/21 07/30/21 18:59 06:59 18:59 Intake Total 538 320 Balance 538 320 Weight 91.1 kg Intake: Oral 538 320 Other: Voiding Method Toilet Toilet Toilet - Exam GENERAL EXAM: Alert, very pleasant, 66-year-old white male, on 2 L of oxygen pulse ox of 95% comfortable in no apparent distress. HEAD: Normocephalic/atraumatic. EYES: Normal reaction of pupils, equal size. Conjunctiva pink, sclera white. NOSE: Clear with pink turbinates. THROAT: No erythema or exudates. NECK: No masses, no JVD, no thyroid enlargement, no adenopathy. CHEST: No chest wall deformity. Symmetrical expansion. LUNGS: Equal air entry with no crackles, wheeze, rhonchi or dullness. CVS: Regular rate and rhythm, normal S1 and S2, no gallops, no murmurs, no rubs ABDOMEN: Soft, nontender. No hepatosplenomegaly, normal bowel sounds, no guarding or rigidity. EXTREMITIES: No clubbing, no edema, no cyanosis, 2+ pulses and upper and lower extremities. MUSCULOSKELETAL: Muscle strength and tone normal. SPINE: No scoliosis or deformity SKIN: No rashes CENTRAL NERVOUS SYSTEM: Alert and oriented -3. No focal deficits, tone is normal in all 4 extremities. PSYCHIATRIC: Alert and oriented -3. Appropriate affect. Intact judgment and insight. - Labs CBC & Chem 7: 07/29/21 07:09 07/29/21 07:09 Labs: Abnormal Lab Results - Last 24 Hours (Table) 07/29/21 07/30/21 07/30/21 Range/Units 20:21 06:13 11:39 POC Glucose (mg/dL) 203 H 211 H 48 L (75-99) mg/dL 07/30/21 Range/Units 11:40 POC Glucose (mg/dL) 49 L (75-99) mg/dL Microbiology - Last 24 Hours (Table) 07/28/21 06:30 Gram Stain - Final Sputum Sputum Culture - Final Assessment and Plan Plan: Assessment: #1. Shortness of breath, multifactorial, related to underlying history of COPD, and chronic CHF, possibility of underlying bilateral pneumonia is not entirely excluded. COVID-19 PCR was negative #2. CT chest abdomen and pelvis dated 07/25/2021 showing an irregular density /mass in the left lung, consistent with bronchogenic carcinoma. Patient is scheduled for an outpatient PET scan on 08/13/2021 #3. History of atrial fibrillation on Xarelto #4. History of CHF with diastolic dysfunction #5. Chronic kidney disease stage IV #6. History of coronary artery disease #7. History of COPD #8. History of diabetes multiple acute #9. Hypertension #10. Hyperlipidemia #11. History of liver cirrhosis #12. History of permanent pacemaker insertion #13. Hyponatremia, possibly hypovolemic related to chronic CHF and liver cirrhosis, possibility of SIADH is not entirely excluded Plan: Ultrasound of the chest has been reviewed Right pleural effusion pocket is sizable to join 350 mL of clear pleural fluid was removed from the right pleural space Postprocedure chest x-ray has been reviewed showing no evidence of pneumothorax, and improved aeration at the right lung base Pleural fluid was sent for analysis and cytology We'll consult ENT service for nosebleed His aspirin and Xarelto remain on hold Once he seen by ENT service and cleared for discharge, he can also be alert for discharge from pulmonary perspective His PET scan has been worked up to August 06 Outpatient follow-up with Dr. Queen in the office in 7-10 days I performed a history & physical examination of the patient and discussed their management with my nurse practitioner, Jojo Langford. I reviewed the nurse practitioner's note and agree with the documented findings and plan of care. Lung sounds are positive for diminished breath sounds throughout the lung tobias. The findings and the impression was discussed with the patient. I attest to the documentation by the nurse practitioner. Time with Patient: Less than 30
[2021-07-30 12:11] LABS: Glucose,Whole Blood 59 mg/dL (75-99)
[2021-07-30 12:19] LABS: Glucose,Whole Blood 76 mg/dL (75-99)
[2021-07-30 12:53] LABS: Appearance,BF Hazy; Color,BF Yellow; Nucleated Cells, Body Fluid 8 /uL; RBC, Body Fluid 1980 /uL
--- NOTE | 2021-07-30 13:18 | PCN ---
PROCEDURE NOTE PULMONARY/CRITICAL CARE PROCEDURE NOTE: PROCEDURE PERFORMED: Right-sided thoracentesis. PREOPERATIVE DIAGNOSIS: Right pleural effusion. POSTOP DIAGNOSIS: Right pleural effusion. OPERATORS: Dr. Queen, Dr. Shankar and Dr. Langford, medical student Tal Martinez. Indication Pleural effusion. A time-out was completed verifying correct patient, procedure, site, positioning , and implant (s) or special equipment if applicable. Ultrasound guidance was used and appropriate fluid pocket was identified and marked. Patient was positioned, prepped and draped in usual sterile fashion. Lidocaine was used to anesthetize the area. A Thoracentesis catheter was introduced into the pleural space and fluid was removed. Blood loss was none. A chest x-ray was ordered to evaluate for pneumothorax. Total Fluid Removed: 350 mL Color of Fluid: Yellow Fluid was sent for appropriate laboratory tests. Patient tolerated the procedure well and there were no complications. There was informed consent. There was universal timeout. The posterior chest was marked by ultrasound. About 350 mL of yellow fluid was removed from the right pleural space. There was no immediate complication. The fluid was sent for analysis. A chest x-ray was ordered to rule out pneumothorax. There was no immediate complication. MMODL / IJN: [id number] /
[2021-07-30 13:45] VITALS: BP 154/70; TEMP 98
[2021-07-30] MEDS: LEVOFLOXACIN 750MG-D5W PMX 750 MG in DEXTROSE/WATER 1 150ML.BAG IVPB SCH (14:01)
[2021-07-30 15:30] VITALS: PULSE 76
[2021-07-30 15:46] LABS: Glucose,Whole Blood 210 mg/dL (75-99)
--- NOTE | 2021-07-30 18:45 | DS ---
DISCHARGE SUMMARY DATE OF SERVICE: 07/30/2021 FINAL DIAGNOSES: 1. Acute bilateral pneumonia possibly gram-negative with acute hypoxic respiratory failure, present on admission. 2. Chronic obstructive pulmonary disease acute exacerbation as well as congestive heart failure acute exacerbation with acute on chronic diastolic dysfunction with shortness of breath multifactorial. 3. Increased WBC. 4. Hyponatremia. 5. Elevated creatinine and acute renal failure with acute kidney injury. 6. Chronic kidney disease, stage 3 baseline previously. 7. Elevated ALT, alkaline phosphatase. 8. Troponin 0.047, indeterminate. 9. Left lung mass with possible bronchogenic carcinoma under investigation with outpatient PET scan as well as possible navigational bronchoscopy per Pulmonary. 10.History of atrial fibrillation. 11.Right pleural effusion status post thoracocentesis. 12.History of coronary artery disease. 13.Diabetes mellitus type 2. 14.Hypertension. 15.Hyperlipidemia. 16.History of chronic liver disease and cirrhosis of the liver previously. 17.History of prostate disorder. 18.History of tachy-chary syndrome with pacemaker. 19.History of peripheral neuropathy. 21.History of iron infusion. 22.History of asbestos exposure in the remote past. 23.History of celiac disease. 24.History of dermatitis herpetiformis. 25.History of cardiac ablation. 26.History of coronary artery disease/stent. 27.Remote history of nicotine dependence. 28.Epistaxis. 29.FULL CODE. DISCHARGE DISPOSITION: The patient will be discharged in stable condition with guarded prognosis, discharge cleared by Pulmonary. Total time taken 35 minutes. HISTORY: This 66-year-old gentleman with past medical history of multiple medical problems admitted with shortness of breath and features of pneumonia, COPD, CHF acute exacerbation treated with bronchodilators, antibiotics. Patient improved significantly. Dr. Queen saw the patient during the hospitalization as well as Cardiology. Care was coordinated. Chest x-ray showed significant improvement. The patient also had some epistaxis. ENT was not available. Recommended outpatient followup. Hold Xarelto when this patient is bleeding. On exam, vitals are stable. Cardiovascular S1, S2. Abdomen soft. Nervous system: No focal deficits. DISCHARGE MEDICATIONS AND INSTRUCTIONS: 1. Follow up with Dr. Valentine in 2 days. 2. CBC BMP. 3. Follow with Dr. Queen as recommended. 4. Follow up ENT as recommended. 5. Follow up with Cardiology as recommended. 6. ENT is Dr. Santana. DISCHARGE MEDICATIONS: 1. Apresoline 100 mg p.o. t.i.d. 2. Claritin 10 mg daily. 3. Coenzyme Q 100 mg daily. 4. Diltiazem 90 mg p.o. b.i.d. 5. DuoNeb q.i.d. and p.r.n. 6. Fluticasone 1 daily. 7. Fluticasone salmeterol 1 puff b.i.d. 8. Folic acid 0.4 daily. 9. Imdur ER 30 mg daily. 10.Lopressor 50 mg p.o. b.i.d. 11.Nitrostat 0.4 sublingually p.r.n. 12.Magnesium oxide 500 mg p.o. daily. 13.Pravachol 20 mg p.o. daily. 14.Protonix 40 mg daily. 15.Singulair 10 mg q.h.s. 16.Flecainide Tambocor 50 mg p.o. b.i.d. 17.Albuterol p.r.n. 18.B complex. 19.Vitamin D3 75 p.o. b.i.d. 20.Xarelto 50 mg p.o. 21.Zyloprim 100 mg p.o. b.i.d. 22.Lactobacillus acidophilus b.i.d. 23.Lasix 40 mg p.o. b.i.d. to be adjusted in the outpatient setting. 24.Levaquin 750 mg q.48h hours for 7 days. MMODL / IJN: [id number] / MTDD
[2021-07-30 22:23] LABS: Glucose, BF Source Pleural Fluid; Glucose, Body Fluid 173 mg/dL; LDH, Body Fluid Source Pleural Fluid; Total Protein, Body Fluid 972 mg/dL
== END 2021-07-30 16:05 | disposition home or self-care (01) | DRG 177 ==
LOC: EC 14:16 → 3SCARD 17:21
PROVIDERS: ADMIT Hospitalist; ATTEND Hospitalist
PROC: 0W993ZZ Drainage of Right Pleural Cavity, Percutaneous Approach (ICD-10-PCS; principal; 2021-07-30)
DX: J15.6 Pneumonia due to other Gram-negative bacteria (principal); I50.33 Acute on chronic diastolic (congestive) heart failure; J96.01 Acute respiratory failure with hypoxia; I13.0 Hypertensive heart and chronic kidney disease with heart failure and stage 1 through stage 4 chronic kidney disease, or unspecified chronic kidney disease; I48.19 Other persistent atrial fibrillation; J44.1 Chronic obstructive pulmonary disease with (acute) exacerbation; J44.0 Chronic obstructive pulmonary disease with (acute) lower respiratory infection; E87.1 Hypo-osmolality and hyponatremia; N17.9 Acute kidney failure, unspecified; C34.12 Malignant neoplasm of upper lobe, left bronchus or lung; E78.5 Hyperlipidemia, unspecified; I25.10 Atherosclerotic heart disease of native coronary artery without angina pectoris; I25.2 Old myocardial infarction; E11.22 Type 2 diabetes mellitus with diabetic chronic kidney disease; I44.0 Atrioventricular block, first degree; I44.7 Left bundle-branch block, unspecified; I49.5 Sick sinus syndrome; Z95.0 Presence of cardiac pacemaker; Z88.0 Allergy status to penicillin; Z88.2 Allergy status to sulfonamides; Z88.1 Allergy status to other antibiotic agents; Z88.8 Allergy status to other drugs, medicaments and biological substances; Z87.891 Personal history of nicotine dependence; Z83.3 Family history of diabetes mellitus; Z20.822 Contact with and (suspected) exposure to COVID-19; G47.00 Insomnia, unspecified; K74.60 Unspecified cirrhosis of liver; N40.0 Benign prostatic hyperplasia without lower urinary tract symptoms; R04.0 Epistaxis; K90.0 Celiac disease; E87.8 Other disorders of electrolyte and fluid balance, not elsewhere classified; Z77.090 Contact with and (suspected) exposure to asbestos; Z95.5 Presence of coronary angioplasty implant and graft; Z82.49 Family history of ischemic heart disease and other diseases of the circulatory system; Z79.4 Long term (current) use of insulin; Z79.01 Long term (current) use of anticoagulants; Z79.899 Other long term (current) drug therapy; Z96.1 Presence of intraocular lens; K76.9 Liver disease, unspecified; N18.30 Chronic kidney disease, stage 3 unspecified; L13.0 Dermatitis herpetiformis
CPT/HCPCS: 36415; 71045; 71046; 76604; 80048; 80053; 81003; 82945; 83615; 83735; 83880; 84145; 84157; 84484; 85025; 85610; 85730; 87070; 87075; 87102; 87116; 87205; 87206; 87252; 87635; 88108; 88305; 89050; 93005; 93306; 94640; 94760; 96365; 99285

== ENCOUNTER 2021-08-04 08:01 | Inpatient (IN) | payer MEDICARE ==
[2021-08-04] MEDS ORDERED: IPRATROPIUM-ALBUTEROL 3 ML NEB INHALATION STA (08:27)
--- NOTE | 2021-08-04 08:30 | ED ---
General Adult HPI - General Chief complaint: Shortness of Breath Stated complaint: SOB Time Seen by Provider: 08/04/21 08:02 Source: patient, EMS, RN notes reviewed Mode of arrival: EMS Limitations: no limitations - History of Present Illness Initial comments: Patient is a pleasant 66-year-old male presenting to the emergency Department with complaints of difficulty in breathing. Symptoms have been more severe over the past approximately 9 days. Patient did have recent computed tomography scan worrisome for mass. Patient has occasional cough. Dyspnea worsens with exertion and is only able to walk 10 or 20 feet. Patient is having bleeding from his nostrils and occasionally coughs this up. Patient does not believe this is coming from his lungs. Patient did have fluid recently removed from his right lower lung. Patient does have history of COPD. No leg pain or leg swelling. No fevers. - Related Data Home Medications Medication Instructions Recorded Confirmed Fluticasone Nasal [place] [Flonase 1 spr EA NOSTRIL DAILY PRN 05/12/16 08/04/21 Nasal [place]] Cholecalciferol [Vitamin D3 (25 75 mcg PO PC-BRKFST 08/26/18 08/04/21 Mcg = 1000 Iu)] Isosorbide Mononitrate ER [Imdur] 30 mg PO DAILY 01/16/19 08/04/21 Pantoprazole [Protonix] 40 mg PO DAILY 01/16/19 08/04/21 Montelukast [Singulair] 10 mg PO HS 02/12/19 08/04/21 Loratadine [Claritin] 10 mg PO DAILY 03/28/19 08/04/21 Metoprolol Tartrate [Lopressor] 50 mg PO BID 03/28/19 08/04/21 Ipratropium-Albuterol Nebulize 3 ml INHALATION RT-QID PRN 06/12/19 08/04/21 [Duoneb 0.5 mg-3 mg/3 ml Soln] Vitamin B Complex 1 cap PO DAILY 06/24/19 08/04/21 allopurinoL [Zyloprim] 100 mg PO BID 06/24/19 08/04/21 Ubidecarenone [Co Q-10] 100 mg PO DAILY 08/01/19 08/04/21 Flecainide [Tambocor] 50 mg PO Q12H 11/11/19 08/04/21 Pravastatin Sodium [Pravachol] 20 mg PO DAILY 11/11/19 08/04/21 Albuterol Sulfate [Ventolin HFA] 1 - 2 puff INHALATION RT-Q6H PRN 07/25/21 08/04/21 Fluticasone/Salmeterol 1 puff INHALATION Q48H 07/25/21 08/04/21 [Fluticasone-Salmeterol 232-14] Folic Acid 0.4 mg PO DAILY 07/25/21 08/04/21 Magnesium Oxide [Goss] 500 mg PO DAILY 07/25/21 08/04/21 Rivaroxaban [Xarelto] 15 mg PO DAILY 07/25/21 08/04/21 dilTIAZem HCL 90 mg PO BID 07/25/21 08/04/21 hydrALAZINE HCL [Apresoline] 100 mg PO TID 07/25/21 08/04/21 Nitroglycerin Sl Tabs [Nitrostat] 0.4 mg SL Q5M PRN 07/26/21 08/04/21 Insulin Detemir (Levemir) [Levemir] 56 unit SQ HS 08/04/21 08/04/21 Insulin Lispro [humaLOG] See Protocol SQ AC-TID 08/04/21 08/04/21 Previous Rx's Medication Instructions Recorded Furosemide [Lasix] 40 mg PO BID@0900,1600 #60 tab 04/10/19 Ipratropium-Albuterol Nebulize 3 ml INHALATION RT-QID 30 Days #90 07/30/21 [Duoneb 0.5 mg-3 mg/3 ml Soln] ml Lactobacillus Acidoph & Bulgar 1 packet PO DAILY 30 Days #30 07/30/21 [Lactinex] packet Levofloxacin [Levaquin] 750 mg PO Q48H 7 Days #7 tab 07/30/21 Allergies Allergy/AdvReac Type Severity Reaction Status Date / Time amlodipine Allergy Swelling Verified 08/04/21 09:43 amoxicillin Allergy Anaphylaxis Verified 08/04/21 09:43 cephalexin monohydrate Allergy Rash/Hives Verified 08/04/21 09:43 [From Keflex] clindamycin Allergy Rash/Hives Verified 08/04/21 09:43 Penicillins Allergy Rash/Hives Verified 08/04/21 09:43 Sulfa (Sulfonamide Allergy Anaphylaxis Verified 08/04/21 09:43 Antibiotics) sulfamethoxazole Allergy Anaphylaxis Verified 08/04/21 09:43 [From Bactrim] trimethoprim [From Bactrim] Allergy Anaphylaxis Verified 08/04/21 09:43 carvedilol AdvReac "MAKES ME Verified 08/04/21 09:43 JERILYN" Review of Systems ROS Statement: Those systems with pertinent positive or pertinent negative responses have been documented in the HPI. ROS Other: All systems not noted in ROS Statement are negative. Constitutional: Denies: fever Eyes: Denies: eye pain ENT: Denies: ear pain Respiratory: Reports: as per HPI, dyspnea Cardiovascular: Denies: chest pain Endocrine: Denies: fatigue Gastrointestinal: Denies: abdominal pain Genitourinary: Denies: dysuria Musculoskeletal: Denies: back pain Skin: Denies: rash Neurological: Denies: weakness Past Medical History Past Medical History: Atrial Fibrillation, Coronary Artery Disease (CAD), Chest Pain / Angina, Heart Failure, COPD, Diabetes Mellitus, GERD/Reflux, Hyperlipidemia, Hypertension, Liver Disease, Myocardial Infarction (ND), Prostate Disorder, Renal Disease, Skin Disorder, Vascular Disorder Additional Past Medical History / Comment(s): history ofAfib with RVR, tachybrady syndrome with pacemaker, IDDM type II, neuropathy bilateral feet, stage III chronic kidney disease, chronic CHF, R pleural effusion, liver cirrhosis, BPH, DJD, herniated discs low back, chronic low back pain, varicose veins , anemia with hx of iron infusions., past asbestos exposure, celiac disease, dermatitis herpetiformis. Last Myocardial Infarction Date:: 06/2018 History of Any Multi-Drug Resistant Organisms: None Reported Past Surgical History: Ablation, Cardiac Ablation, Cholecystectomy, Heart Latasha terization With Stent, Pacemaker, Tonsillectomy Additional Past Surgical History / Comment(s): PCI with STENTS x 3, bilateral cataracts removed with lens implants, colonoscopy, Medtronic pacemaker Past Anesthesia/Blood Transfusion Reactions: No Reported Reaction Date of Last Stent Placement:: 2017 Type of Cardiac Device: Permanent Pacemaker Device Placement Date:: 02/02/19 Past Psychological History: No Psychological Hx Reported Smoking Status: Former smoker Past Alcohol Use History: None Reported Past Drug Use History: None Reported - Past Family History Mother Family Medical History: Diabetes Mellitus Father Family Medical History: Myocardial Infarction (ND) Additional Family Medical History / Comment(s): Father had a ND in his 70s. Brother(s) Family Medical History: Myocardial Infarction (ND) Additional Family Medical History / Comment(s): Brother had a ND in his 50s. General Exam Limitations: no limitations General appearance: alert, in no apparent distress Head exam: Present: normocephalic Eye exam: Present: normal appearance ENT exam: Present: normal oropharynx, other (Left nares with anterior septum minimal bleeding.) Neck exam: Present: normal inspection Respiratory exam: Present: rales (Left base), decreased breath sounds Cardiovascular Exam: Present: regular rate, normal rhythm GI/Abdominal exam: Present: soft. Absent: tenderness Extremities exam: Present: normal inspection. Absent: pedal edema, calf tenderness Neurological exam: Present: alert Psychiatric exam: Present: normal affect, normal mood Skin exam: Present: normal color Course Vital Signs 08/04/21 08/04/21 08/04/21 08:03 09:07 09:20 Temperature 97.4 F L Pulse Rate 70 78 74 Respiratory 19 Rate Blood Pressure 174/86 O2 Sat by Pulse 90 L Oximetry 08/04/21 09:56 Temperature Pulse Rate 68 Respiratory 18 Rate Blood Pressure 141/59 O2 Sat by Pulse 94 L Oximetry EKG Findings - EKG Comments: EKG Findings:: Normal sinus rhythm with rate of 70. First-degree AV block NV 208. QRS 112. QT or 58. QTC 494. Normal axis. Normal QRS. T wave inversion in V6. Procedures - Procedures Initial comment: Oxygen removed. Left nares cauterized using silver nitrate. No complications. Patient did provide verbal informed consent. Medical Decision Making - Medical Decision Making Patient reevaluated and resting comfortably in bed. Patient is somewhat improved. Patient states pulse ox was mid 80s at home despite being on 2 L. Patient and family updated on results and plan. Case was discussed with Dr. mcintosh, who will admit covering Dr. Pineda. - Lab Data Result diagrams: 08/04/21 08:33 08/04/21 08:33 Lab Results 08/04/21 08/04/21 08/04/21 Range/Units 08:33 08:33 08:33 WBC 14.2 H (3.8-10.6) k/uL RBC 3.89 L (4.30-5.90) m/uL Hgb 12.8 L (13.0-17.5) gm/dL Hct 37.2 L (39.0-53.0) % MCV 95.7 (80.0-100.0) fL MCH 32.9 (25.0-35.0) pg MCHC 34.3 (31.0-37.0) g/dL RDW 14.3 (11.5-15.5) % Plt Count 205 (150-450) k/uL MPV 9.0 Neutrophils % 91 % Lymphocytes % 3 % Monocytes % 5 % Eosinophils % 1 % Basophils % 0 % Neutrophils # 12.9 H (1.3-7.7) k/uL Lymphocytes # 0.5 L (1.0-4.8) k/uL Monocytes # 0.6 (0-1.0) k/uL Eosinophils # 0.1 (0-0.7) k/uL Basophils # 0.0 (0-0.2) k/uL PT 10.8 (9.0-12.0) sec INR 1.0 (<1.2) APTT 22.5 (22.0-30.0) sec Sodium 128 L (137-145) mmol/L Potassium 3.9 (3.5-5.1) mmol/L Chloride 92 L (98-107) mmol/L Carbon Dioxide 28 (22-30) mmol/L Anion Gap 8 mmol/L BUN 49 H (9-20) mg/dL Creatinine 1.69 H (0.66-1.25) mg/dL Est GFR (CKD-EPI)AfAm 48 (>60 ml/min/1.73 sqM) Est GFR (CKD-EPI)NonAf 42 (>60 ml/min/1.73 sqM) Glucose 348 H (74-99) mg/dL Plasma Lactic Acid Roge (0.7-2.0) mmol/L Calcium 8.9 (8.4-10.2) mg/dL Total Bilirubin 1.8 H (0.2-1.3) mg/dL AST 53 (17-59) U/L ALT 91 H (4-49) U/L Alkaline Phosphatase 171 H (38-126) U/L Troponin I (0.000-0.034) ng/mL NT-Pro-B Natriuret Pep pg/mL Total Protein 5.5 L (6.3-8.2) g/dL Albumin 3.1 L (3.5-5.0) g/dL 08/04/21 08/04/21 08/04/21 Range/Units 08:33 08:33 08:33 WBC (3.8-10.6) k/uL RBC (4.30-5.90) m/uL Hgb (13.0-17.5) gm/dL Hct (39.0-53.0) % MCV (80.0-100.0) fL MCH (25.0-35.0) pg MCHC (31.0-37.0) g/dL RDW (11.5-15.5) % Plt Count (150-450) k/uL MPV Neutrophils % % Lymphocytes % % Monocytes % % Eosinophils % % Basophils % % Neutrophils # (1.3-7.7) k/uL Lymphocytes # (1.0-4.8) k/uL Monocytes # (0-1.0) k/uL Eosinophils # (0-0.7) k/uL Basophils # (0-0.2) k/uL PT (9.0-12.0) sec INR (<1.2) APTT (22.0-30.0) sec Sodium (137-145) mmol/L Potassium (3.5-5.1) mmol/L Chloride (98-107) mmol/L Carbon Dioxide (22-30) mmol/L Anion Gap mmol/L BUN (9-20) mg/dL Creatinine (0.66-1.25) mg/dL Est GFR (CKD-EPI)AfAm (>60 ml/min/1.73 sqM) Est GFR (CKD-EPI)NonAf (>60 ml/min/1.73 sqM) Glucose (74-99) mg/dL Plasma Lactic Acid Roge 1.2 (0.7-2.0) mmol/L Calcium (8.4-10.2) mg/dL Total Bilirubin (0.2-1.3) mg/dL AST (17-59) U/L ALT (4-49) U/L Alkaline Phosphatase (38-126) U/L Troponin I 0.043 H* (0.000-0.034) ng/mL NT-Pro-B Natriuret Pep 6320 pg/mL Total Protein (6.3-8.2) g/dL Albumin (3.5-5.0) g/dL - Radiology Data Radiology results: image reviewed (Chest x-ray shows bilateral infiltrates, similar to previous) Disposition Clinical Impression: Dyspnea Disposition: ADMITTED IP TO THIS HOSP Is patient prescribed a controlled substance at d/c from ED?: No Referrals: Ivy Pineda DO [Primary Care Provider] - 1-2 days Decision Time: 10:41
[2021-08-04 08:55] LABS: Basophils % (A) 0 %; Eosinophils # (A) 0.1 k/uL (0-0.7); Eosinophils % (A) 1 %; HCT 37.2 % (39.0-53.0); HGB 12.8 gm/dL (13.0-17.5); Lymphocytes # (A) 0.5 k/uL (1.0-4.8); Lymphocytes % (A) 3 %; MCH 32.9 pg (25.0-35.0); MCHC 34.3 g/dL (31.0-37.0); MCV 95.7 fL (80.0-100.0); Monocytes # (A) 0.6 k/uL (0-1.0); Monocytes % (A) 5 %; Neutrophils # (A) 12.9 k/uL (1.3-7.7); Neutrophils % (A) 91 %; Platelet Count 205 k/uL (150-450); RBC 3.89 m/uL (4.30-5.90); RDW 14.3 % (11.5-15.5); WBC 14.2 k/uL (3.8-10.6)
[2021-08-04 09:09] LABS: Prothrombin Time 10.8 sec (9.0-12.0)
[2021-08-04 09:10] LABS: Partial Thromboplastin Time 22.5 sec (22.0-30.0)
[2021-08-04 09:21] LABS: Albumin 3.1 g/dL (3.5-5.0); Calcium 8.9 mg/dL (8.4-10.2); Potassium 3.9 mmol/L (3.5-5.1); Total Bilirubin 1.8 mg/dL (0.2-1.3); Total Protein 5.5 g/dL (6.3-8.2)
--- NOTE | 2021-08-04 09:39 | XR ---
EXAMINATION TYPE: XR chest 2V DATE OF EXAM: 08/04/2021 COMPARISON: 07/30/2021 TECHNIQUE: PA and lateral views submitted. HISTORY: Shortness of breath FINDINGS: Bilateral diffuse infiltrates with small effusions are stable. Cardiac device is noted in the heart s ize is stable. Underlying COPD suspected with no pneumothorax. Surgical clips in the upper abdomen. IMPRESSION: 1. Bilateral infiltrate with small bilateral effusions appear to be stable.
[2021-08-04] MEDS ORDERED: IPRATROPIUM-ALBUTEROL 3 ML NEB INHALATION PRN (10:41)
[2021-08-04] MEDS ORDERED: LEVOFLOXACIN 500MG-D5W PMX 500 MG in DEXTROSE/WATER 1 100ML.BAG IVPB ONE (11:00)
[2021-08-04] MEDS ORDERED: LEVOFLOXACIN 500MG-D5W PMX 500 MG in DEXTROSE/WATER 1 100ML.BAG IVPB SCH (11:00)
[2021-08-04] MEDS: methylPREDNISolone SOD SUCCI 125 MG/2 ML VIAL IV SCH ×2 (12:00→18:55)
[2021-08-04 12:14] LABS: Glucose,Whole Blood 334 mg/dL (75-99)
[2021-08-04] MEDS: IPRATROPIUM-ALBUTEROL 3 ML NEB INHALATION SCH ×3 (12:59→20:01)
[2021-08-04] MEDS ORDERED: FUROSEMIDE 10 MG/ML 2 ML VIAL IV STA (14:10)
[2021-08-04] MEDS: INSULIN ASPART (NovoLOG) 100 UNIT/ML VIAL SQ SCH ×3 (14:30→17:33)
--- NOTE | 2021-08-04 15:03 | P.HPIM ---
History of Present Illness H&P Date: 08/04/21 Chief Complaint: Shortness of breath Patient is a 66-year-old male with a known history of COPD on home oxygen, recent lung mass on CT chest on follow up with pulmonary, persistent atrial fibrillation on anticoagulation with xarelto, sick sinus syndrome with history of permanent pacemaker placement, coronary artery disease history of stent placement to circumflex, diabetes type 2 insulin-dependent, hypertension, hyperlipidemia, chronic CHF with diastolic dysfunction and previous history of smoking and alcohol use presents to ER with complaints of worsening shortness of breath. Patient was recently admitted to the hospital due to CHF and COPD exacerbation and was discharged on 08/16/2021. Underwent right thoracentesis on 07/30/2021. Patient says that he has been having postnasal drip and cough with clear to light yellowish sputum production along blood-tinged sputum. Denied any blood clots. Denied any fever or chills. Patient is also complaining of worsening leg swelling. No compressive chest pain. No headache or dizziness or lightheadedness. Patient has been using oxygen at home. On admission were pressure was 174/86, pulse 70 this was 19 pulse ox 90% on 4 L oxygen. Afebrile. Laboratory data showed WBC 14.2, hemoglobin 12.8 and platelets 205 Sodium 128 potassium 3.9, bicarb 28, BUN 14 and creatinine 1.69 Bilirubin 1.8, AST 53 ALT 91 and alk phos 171, troponin 0.043, proBNP 6320 Chest x-ray showed bilateral infiltrate with small bilateral effusions appears to be stable. Review of Systems Constitutional: Patient denies any fever or chills . No generalized weakness or weight loss. Abdomen: Patient denied nausea vomiting and diarrhea and abdominal pain. Cardiovascular: Patient denies any chest pain. Patient does have short of breath no palpitations. Increasing leg swelling. Respiratory: Complains of cough with sputum production and shortness of breath. Neurologic: Patient denied any numbness or tingling headache. Musculoskeletal: Patient denies any complaints of joint swelling or deformity. Skin: Negative Psychiatric: Negative Endocrine: No heat or cold intolerance. No recent weight gain. Genitourinary: No dysuria or hematuria. All other 14 point ROS negative except the above Past Medical History Past Medical History: Atrial Fibrillation, Coronary Artery Disease (CAD), Chest Pain / Angina, Heart Failure, COPD, Diabetes Mellitus, GERD/Reflux, Hyperlipidemia, Hypertension, Liver Disease, Myocardial Infarction (MD), Prostat e Disorder, Renal Disease, Skin Disorder, Vascular Disorder Additional Past Medical History / Comment(s): history ofAfib with RVR, tachybrady syndrome with pacemaker, IDDM type II, neuropathy bilateral feet, stage III chronic kidney disease, chronic CHF, R pleural effusion, liver cirrhosis, BPH, DJD, herniated discs low back, chronic low back pain, varicose veins , anemia with hx of iron infusions., past asbestos exposure, celiac disease, dermatitis herpetiformis. Last Myocardial Infarction Date:: 06/2018 History of Any Multi-Drug Resistant Organisms: None Reported Past Surgical History: Ablation, Cardiac Ablation, Cholecystectomy, Heart Catheterization With Stent, Pacemaker, Tonsillectomy Additional Past Surgical History / Comment(s): PCI with STENTS x 3, bilateral cataracts removed with lens implants, colonoscopy, Medtr[employer] pacemaker Past Anesthesia/Blood Transfusion Reactions: No Reported Reaction Date of Last Stent Placement:: 2017 Type of Cardiac Device: Permanent Pacemaker Device Placement Date:: 02/02/19 Past Psychological History: No Psychological Hx Reported Smoking Status: Former smoker Past Alcohol Use History: None Reported Past Drug Use History: None Reported - Past Family History Mother Family Medical History: Diabetes Mellitus Father Family Medical History: Myocardial Infarction (MD) Additional Family Medical History / Comment(s): Father had a MD in his 70s. Brother(s) Family Medical History: Myocardial Infarction (MD) Additional Family Medical History / Comment(s): Brother had a MD in his 50s. Medications and Allergies Home Medications Medication Instructions Recorded Confirmed Type Fluticasone Nasal [place] [Flonase 1 spr EA NOSTRIL DAILY PRN 05/12/16 08/04/21 History Nasal [place]] Cholecalciferol [Vitamin D3 (25 75 mcg PO PC-BRKFST 08/26/18 08/04/21 History Mcg = 1000 Iu)] Isosorbide Mononitrate ER [Imdur] 30 mg PO DAILY 01/16/19 08/04/21 History Pantoprazole [Protonix] 40 mg PO DAILY 01/16/19 08/04/21 History Montelukast [Singulair] 10 mg PO HS 02/12/19 08/04/21 History Loratadine [Claritin] 10 mg PO DAILY 03/28/19 08/04/21 History Metoprolol Tartrate [Lopressor] 50 mg PO BID 03/28/19 08/04/21 History Furosemide [Lasix] 40 mg PO BID@0900,1600 #60 tab 04/10/19 08/04/21 Rx Ipratropium-Albuterol Nebulize 3 ml INHALATION RT-QID PRN 06/12/19 08/04/21 History [Duoneb 0.5 mg-3 mg/3 ml Soln] Vitamin B Complex 1 cap PO DAILY 06/24/19 08/04/21 History allopurinoL [Zyloprim] 100 mg PO BID 06/24/19 08/04/21 History Ubidecarenone [Co Q-10] 100 mg PO DAILY 08/01/19 08/04/21 History Flecainide [Tambocor] 50 mg PO Q12H 11/11/19 08/04/21 History Pravastatin Sodium [Pravachol] 20 mg PO DAILY 11/11/19 08/04/21 History Albuterol Sulfate [Ventolin HFA] 1 - 2 puff INHALATION RT-Q6H PRN 07/25/21 08/04/21 History Fluticasone/Salmeterol 1 puff INHALATION Q48H 07/25/21 08/04/21 History [Fluticasone-Salmeterol 232-14] Folic Acid 0.4 mg PO DAILY 07/25/21 08/04/21 History Magnesium Oxide [Goss] 500 mg PO DAILY 07/25/21 08/04/21 History Rivaroxaban [Xarelto] 15 mg PO DAILY 07/25/21 08/04/21 History dilTIAZem HCL 90 mg PO BID 07/25/21 08/04/21 History hydrALAZINE HCL [Apresoline] 100 mg PO TID 07/25/21 08/04/21 History Nitroglycerin Sl Tabs [Nitrostat] 0.4 mg SL Q5M PRN 07/26/21 08/04/21 History Ipratropium-Albuterol Nebulize 3 ml INHALATION RT-QID 30 Days #90 07/30/21 08/04/21 Rx [Duoneb 0.5 mg-3 mg/3 ml Soln] ml Lactobacillus Acidoph & Bulgar 1 packet PO DAILY 30 Days #30 07/30/21 08/04/21 Rx [Lactinex] packet Levofloxacin [Levaquin] 750 mg PO Q48H 7 Days #7 tab 07/30/21 08/04/21 Rx Insulin Detemir (Levemir) [Levemir] 56 unit SQ HS 08/04/21 08/04/21 History Insulin Lispro [humaLOG] See Protocol SQ AC-TID 08/04/21 08/04/21 History Allergies Allergy/AdvReac Type Severity Reaction Status Date / Time amlodipine Allergy Swelling Verified 08/04/21 09:43 amoxicillin Allergy Anaphylaxis Verified 08/04/21 09:43 cephalexin monohydrate Allergy Rash/Hives Verified 08/04/21 09:43 [From Keflex] clindamycin Allergy Rash/Hives Verified 08/04/21 09:43 Penicillins Allergy Rash/Hives Verified 08/04/21 09:43 Sulfa (Sulfonamide Allergy Anaphylaxis Verified 08/04/21 09:43 Antibiotics) sulfamethoxazole Allergy Anaphylaxis Verified 08/04/21 09:43 [From Bactrim] trimethoprim [From Bactrim] Allergy Anaphylaxis Verified 08/04/21 09:43 carvedilol AdvReac "MAKES ME Verified 08/04/21 09:43 LOONEY" Physical Exam Vitals: Vital Signs Temp Pulse Resp BP Pulse Ox 08/04/21 14:00 78 24 92 L 08/04/21 12:00 97.7 F 70 24 154/76 92 L 08/04/21 09:56 68 18 141/59 94 L 08/04/21 09:20 74 08/04/21 09:07 78 08/04/21 08:03 97.4 F L 70 19 174/86 90 L Intake and Output 08/03/21 08/04/21 08/04/21 22:59 06:59 14:59 Output Total 600 Balance -600 Output: Urine 600 Other: Weight 88.904 kg PHYSICAL EXAMINATION: Patient is lying in the bed comfortably, no acute distress, awake alert and oriented.. HEENT: Normocephalic. Neck is supple. Pupils reactive. Nostrils clear. Oral cavity is moist. Neck reveals no JVD, carotid bruits, or thyromegaly. CHEST EXAMINATION: Trachea is central. Symmetrical expansion. Bilateral diminished air entry and scattered rhonchi. Nonlabored breathing.. CARDIAC: Normal S1, S2 with no gallops. No murmurs ABDOMEN: Soft. Bowel sounds normal. No organomegaly. No abdominal bruits. Extremities: 2+ pitting edema. No clubbing or cyanosis Neurologically awake, alert, oriented x3 with well-coordinated movements. No focal deficits noted Skin: No rash or skin lesions. Psychiatric: Coperative. Nonsuicidal Musculoskeletal: No joint swelling or deformity. Normal range of motion. Results CBC & Chem 7: 08/04/21 08:33 08/04/21 08:33 Labs: Abnormal Lab Results - Last 24 Hours (Table) 08/04/21 08/04/21 08/04/21 Range/Units 08:33 08:33 08:33 WBC 14.2 H (3.8-10.6) k/uL RBC 3.89 L (4.30-5.90) m/uL Hgb 12.8 L (13.0-17.5) gm/dL Hct 37.2 L (39.0-53.0) % Neutrophils # 12.9 H (1.3-7.7) k/uL Lymphocytes # 0.5 L (1.0-4.8) k/uL Sodium 128 L (137-145) mmol/L Chloride 92 L (98-107) mmol/L BUN 49 H (9-20) mg/dL Creatinine 1.69 H (0.66-1.25) mg/dL Glucose 348 H (74-99) mg/dL POC Glucose (mg/dL) (75-99) mg/dL Total Bilirubin 1.8 H (0.2-1.3) mg/dL ALT 91 H (4-49) U/L Alkaline Phosphatase 171 H (38-126) U/L Troponin I 0.043 H* (0.000-0.034) ng/mL Total Protein 5.5 L (6.3-8.2) g/dL Albumin 3.1 L (3.5-5.0) g/dL 08/04/21 Range/Units 12:11 WBC (3.8-10.6) k/uL RBC (4.30-5.90) m/uL Hgb (13.0-17.5) gm/dL Hct (39.0-53.0) % Neutrophils # (1.3-7.7) k/uL Lymphocytes # (1.0-4.8) k/uL Sodium (137-145) mmol/L Chloride (98-107) mmol/L BUN (9-20) mg/dL Creatinine (0.66-1.25) mg/dL Glucose (74-99) mg/dL POC Glucose (mg/dL) 334 H (75-99) mg/dL Total Bilirubin (0.2-1.3) mg/dL ALT (4-49) U/L Alkaline Phosphatase (38-126) U/L Troponin I (0.000-0.034) ng/mL Total Protein (6.3-8.2) g/dL Albumin (3.5-5.0) g/dL Thrombosis Risk Factor Assmnt - DVT/VTE Prophylaxis DVT/VTE Prophylaxis: Pharmacologic Prophylaxis ordered Assessment and Plan Assessment: Worsening shortness of breath secondary to acute COPD exacerbation Acute on chronic CHF with diastolic dysfunction Recently diagnosed lung mass. Supposed to follow with pulmonary clinic. Scheduled for outpatient PET scan on 08/13/2021 Hyperglycemia with uncontrolled diabetes type 2 Elevated troponin level unlikely ACS. Hyponatremia likely hypervolemic. Possible SIADH cannot be excluded. Bilateral small pleural effusions with recent history of right thoracentesis Chronic postnasal drip Persistent atrial fibrillation on iron tablets with xarelto Sick sinus syndrome with history of permanent pacemaker placement, coronary artery disease history of stent placement to circumflex Hypertension Hyperlipidemia Chronic hypoxic respiratory failure secondary to COPD Previous history of smoking History of liver cirrhosis DVT prophylaxis patient is already on xarelto Plan: Continue with oxygen supplementation. Patient was started on IV Solu-Medrol 60 mg every 6 hourly and continue with Levaquin will be continued. Patient will be started on Lasix 40 mg IV every 12 and monitor renal function. Patient takes 40 mg by mouth twice a day at home. Continued with Levemir dose and add NovoLog preprandial for better blood sugar control. Continue with home blood pressure medications and follow closely. Cardiology and pulmonary was consulted. Time with Patient: Greater than 30
[2021-08-04] MEDS: SYMBICORT 160-4.5 MCG INHALER INHALATION SCH ×2 (15:39→20:01)
[2021-08-04] MEDS ORDERED: FUROSEMIDE 40 MG TAB PO SCH (16:00)
[2021-08-04] MEDS: hydrALAZINE HCL 50 MG TAB PO SCH ×2 (16:13→22:18)
[2021-08-04] MEDS: FLECAINIDE 50 MG TAB PO SCH (16:13)
[2021-08-04 17:14] LABS: Glucose,Whole Blood 402 mg/dL (75-99)
--- NOTE | 2021-08-04 20:13 | P.CNPUL ---
History of Present Illness Consult date: 08/04/21 Reason for consult: dyspnea, hypoxemia History of present illness: This is a 66-year-old male patient who came back to the emergency because of worsening shortness of breath, orthopnea, increase in lower extremity edema. The patient was hospitalized last week for worsening shortness of breath. The patient was given antibiotics with Levaquin. Pro-calcitonin level was nonelevated. The patient also had a right-sided pleural effusion and it was drained and the fluid itself turn out worker to be a candidate with a low LDH and protein. This was consistent with CHF. The fluid cytology was negative. Nevertheless, the chest x-ray remained abnormal. The patient continued to have persistent infiltration the left perihilar area and some in the right upper lobe. He was discharged home on Levaquin. He was supposed to have an outpatient PET scan to further investigate a masslike consolidation in the left perihilar area. This has not been done yet. His current chest x-ray showing bilateral infiltrates and small effusions that are essentially stable. The blood work is showing WBC count of 14.2. Correlation profile is normal. Sodium level is at 128. Creatinine level is at 1.69 which is improved. Troponins of 0.04. ProBNP level is 6320. COVID-19 testing is been negative. The patient is currently on IV Lasix. He is known to have CAD, previous history approximately atrial fibrillation has been maintained on Xarelto on outpatient basis and the patient has chronic stage III kidney disease, congestion heart failure diastolic failure, diabetes mellitus, hypertension, hyperlipidemia and chronic liver disease in the form of the liver cirrhosis. He on and off, he continues to drink beer socially. As part of previous workup workup, CAT scan of the chest abdomen and pelvis was done on 07/25/2021. This was done without contrast. The CAT scan showed a left upper lobe nodular density with some peripheral soft tissue extension into the pleural margin. This is a irregular soft tissue density extending proximally into the left hilum. There is also small left- sided pleural effusion. There is also evidence of subpleural noted that the on the left. There is background COPD. No clear mediastinal lymphadenopathy although suspected left hilar lymphadenopathy, hard to characterize because of absence of contrast. His liver has no other contour consistent with previous alcoholism. He is postcholecystectomy. CAT scan of the abdomen shows no abnormalities. Pancreas is normal. Spleen is normal. Bowels are within normal limits. The patient is currently on 4 L of oxygen by nasal cannula with a pulse ox of 93%. The echocardiogram from previous admission showed a EF around 55- 60%, mild MR, mild TR, no evidence of any pulmonary pretension. Review of Systems Constitutional: Reports fatigue, Reports poor appetite, Reports weakness, Reports weight gain Eyes: denies as per HPI, denies blurred vision, denies bulging eye, denies decreased vision, denies diplopia, denies discharge, denies dry eye, denies irritation, denies itching, denies pain, denies photophobia, denies loss of peripheral vision, denies loss of vision, denies tunnel vision/blind spots Ears: deny: decreased hearing, ear discharge, earache, tinnitus Ears, nose, mouth and throat: Denies headache, Denies sore throat Cardiovascular: Reports no chest pain. Respiratory: Reports that can dyspnea or chest pain. Gastrointestinal: Reports as per HPI, Reports loss of appetite some abdominal distention bloating. Genitourinary: Reports as per HPI Musculoskeletal: Reports as per HPI Musculoskeletal: bilateral: ankle swelling, absent: ankle pain, ankle stiffness, as per HPI, elbow pain, elbow stiffness, elbow swelling, foot pain, foot stiffness, foot swelling, hand pain, hand stiffness, hand swelling, hip pain, hip stiffness, hip swelling, knee pain, knee stiffness, knee swelling, shoulder pain, shoulder stiffness, shoulder swelling, wrist pain, wrist stiffness, wrist swelling Integumentary: Denies pruritus, Denies rash Neurological: Reports weakness Psychiatric: Reports as per HPI Endocrine: Reports as per HPI Hematologic/Lymphatic: Reports as per HPI Allergic/Immunologic: Reports as per HPI Past Medical History Past Medical History: Atrial Fibrillation, Coronary Artery Disease (CAD), Chest Pain / Angina, Heart Failure, COPD, Diabetes Mellitus, GERD/Reflux, Hyperlipidemia, Hypertension, Liver Disease, Myocardial Infarction (CO), Prostate Disorder, Renal Disease, Skin Disorder, Vascular Disorder Additional Past Medical History / Comment(s): history ofAfib with RVR, tachybrady syndrome with pacemaker, IDDM type II, neuropathy bilateral feet, stage III chronic kidney disease, chronic CHF, R pleural effusion, liver cirrhosis, BPH, DJD, herniated discs low back, chronic low back pain, varicose veins , anemia with hx of iron infusions., past asbestos exposure, celiac disease, dermatitis herpetiformis. Last Myocardial Infarction Date:: 06/2018 History of Any Multi-Drug Resistant Organisms: None Reported Past Surgical History: Ablation, Cardiac Ablation, Cholecystectomy, Heart Catheterization With Stent, Pacemaker, Tonsillectomy Additional Past Surgical History / Comment(s): PCI with STENTS x 3, bilateral cataracts removed with lens implants, colonoscopy, [employer] pacemaker Past Anesthesia/Blood Transfusion Reactions: No Reported Reaction Date of Last Stent Placement:: 2017 Type of Cardiac Device: Permanent Pacemaker Device Placement Date:: 02/02/19 Past Psychological History: No Psychological Hx Reported Smoking Status: Former smoker Past Alcohol Use History: None Reported Past Drug Use History: None Reported - Past Family History Mother Family Medical History: Diabetes Mellitus Father Family Medical History: Myocardial Infarction (CO) Additional Family Medical History / Comment(s): Father had a CO in his 70s. Brother(s) Family Medical History: Myocardial Infarction (CO) Additional Family Medical History / Comment(s): Brother had a CO in his 50s. Medications and Allergies Home Medications Medication Instructions Recorded Confirmed Type Fluticasone Nasal [place] [Flonase 1 spr EA NOSTRIL DAILY PRN 05/12/16 08/04/21 History Nasal [place]] Cholecalciferol [Vitamin D3 (25 75 mcg PO PC-BRKFST 08/26/18 08/04/21 History Mcg = 1000 Iu)] Isosorbide Mononitrate ER [Imdur] 30 mg PO DAILY 01/16/19 08/04/21 History Pantoprazole [Protonix] 40 mg PO DAILY 01/16/19 08/04/21 History Montelukast [Singulair] 10 mg PO HS 02/12/19 08/04/21 History Loratadine [Claritin] 10 mg PO DAILY 03/28/19 08/04/21 History Metoprolol Tartrate [Lopressor] 50 mg PO BID 03/28/19 08/04/21 History Furosemide [Lasix] 40 mg PO BID@0900,1600 #60 tab 04/10/19 08/04/21 Rx Ipratropium-Albuterol Nebulize 3 ml INHALATION RT-QID PRN 06/12/19 08/04/21 History [Duoneb 0.5 mg-3 mg/3 ml Soln] Vitamin B Complex 1 cap PO DAILY 06/24/19 08/04/21 History allopurinoL [Zyloprim] 100 mg PO BID 06/24/19 08/04/21 History Ubidecarenone [Co Q-10] 100 mg PO DAILY 08/01/19 08/04/21 History Flecainide [Tambocor] 50 mg PO Q12H 11/11/19 08/04/21 History Pravastatin Sodium [Pravachol] 20 mg PO DAILY 11/11/19 08/04/21 History Albuterol Sulfate [Ventolin HFA] 1 - 2 puff INHALATION RT-Q6H PRN 07/25/21 08/04/21 History Fluticasone/Salmeterol 1 puff INHALATION Q48H 07/25/21 08/04/21 History [Fluticasone-Salmeterol 232-14] Folic Acid 0.4 mg PO DAILY 07/25/21 08/04/21 History Magnesium Oxide [Goss] 500 mg PO DAILY 07/25/21 08/04/21 History Rivaroxaban [Xarelto] 15 mg PO DAILY 07/25/21 08/04/21 History dilTIAZem HCL 90 mg PO BID 07/25/21 08/04/21 History hydrALAZINE HCL [Apresoline] 100 mg PO TID 07/25/21 08/04/21 History Nitroglycerin Sl Tabs [Nitrostat] 0.4 mg SL Q5M PRN 07/26/21 08/04/21 History Ipratropium-Albuterol Nebulize 3 ml INHALATION RT-QID 30 Days #90 07/30/21 08/04/21 Rx [Duoneb 0.5 mg-3 mg/3 ml Soln] ml Lactobacillus Acidoph & Bulgar 1 packet PO DAILY 30 Days #30 07/30/21 08/04/21 Rx [Lactinex] packet Levofloxacin [Levaquin] 750 mg PO Q48H 7 Days #7 tab 07/30/21 08/04/21 Rx Insulin Detemir (Levemir) [Levemir] 56 unit SQ HS 08/04/21 08/04/21 History Insulin Lispro [humaLOG] See Protocol SQ AC-TID 08/04/21 08/04/21 History Allergies Allergy/AdvReac Type Severity Reaction Status Date / Time amlodipine Allergy Swelling Verified 08/04/21 09:43 amoxicillin Allergy Anaphylaxis Verified 08/04/21 09:43 cephalexin monohydrate Allergy Rash/Hives Verified 08/04/21 09:43 [From Keflex] clindamycin Allergy Rash/Hives Verified 08/04/21 09:43 Penicillins Allergy Rash/Hives Verified 08/04/21 09:43 Sulfa (Sulfonamide Allergy Anaphylaxis Verified 08/04/21 09:43 Antibiotics) sulfamethoxazole Allergy Anaphylaxis Verified 08/04/21 09:43 [From Bactrim] trimethoprim [From Bactrim] Allergy Anaphylaxis Verified 08/04/21 09:43 carvedilol AdvReac "MAKES ME Verified 08/04/21 09:43 JERILYN" Physical Exam Vitals: Vital Signs Temp Pulse Resp BP Pulse Ox 08/04/21 20:04 78 08/04/21 16:00 99.0 F 73 22 155/77 94 L 08/04/21 15:52 82 08/04/21 15:39 80 08/04/21 14:00 78 24 92 L 08/04/21 12:00 97.7 F 70 24 154/76 92 L 08/04/21 09:56 68 18 141/59 94 L 08/04/21 09:20 74 08/04/21 09:07 78 08/04/21 08:03 97.4 F L 70 19 174/86 90 L Intake and Output 08/04/21 08/04/21 08/04/21 06:59 14:59 22:59 Output Total 600 Balance -600 Output: Urine 600 Other: Weight 88.904 kg General appearance: alert, in no apparent distress, calm and comfortable Head exam: Present: atraumatic, normocephalic, normal inspection Eye exam: Present: normal appearance, PERRL, EOMI. Absent: scleral icterus, conjunctival injection, periorbital swelling ENT exam: Present: normal exam, mucous membranes moist Neck exam: Present: normal inspection, full ROM. Absent: tenderness, meningismus, lymphadenopathy Respiratory exam: No wheezes. No rhonchi. No crackles. Cardiovascular Exam: Present: irregular rate, normal rhythm, normal heart sounds. Absent: systolic murmur, diastolic murmur, rubs, gallop, clicks GI/Abdominal exam: Present: soft, normal bowel sounds. Absent: distended, tenderness, guarding, rebound, rigid Extremities exam: Present: pedal edema (1+ pitting edema) Neurological exam: Present: alert, oriented X3, CN II-XII intact Psychiatric exam: Present: normal affect, normal mood Results - Laboratory Findings CBC and BMP: 08/04/21 08:33 08/04/21 08:33 PT/INR, D-dimer PT 10.8 sec (9.0-12.0) 08/04/21 08:33 INR 1.0 (<1.2) 08/04/21 08:33 Abnormal lab findings: Abnormal Labs 08/04/21 08/04/21 08/04/21 08:33 08:33 08:33 WBC 14.2 H RBC 3.89 L Hgb 12.8 L Hct 37.2 L Neutrophils # 12.9 H Lymphocytes # 0.5 L Sodium 128 L Chloride 92 L BUN 49 H Creatinine 1.69 H Glucose 348 H POC Glucose (mg/dL) Total Bilirubin 1.8 H ALT 91 H Alkaline Phosphatase 171 H Troponin I 0.043 H* Total Protein 5.5 L Albumin 3.1 L 08/04/21 08/04/21 12:11 17:13 WBC RBC Hgb Hct Neutrophils # Lymphocytes # Sodium Chloride BUN Creatinine Glucose POC Glucose (mg/dL) 334 H 402 H Total Bilirubin ALT Alkaline Phosphatase Troponin I Total Protein Albumin Assessment and Plan Plan: 1 acute hypoxic respiratory failure with development of bilateral pulmonary infiltrates and the right-sided pleural effusion that was drained recently and this turn out worker to be a transudate. The patient is coming in with fluid overload and increase in lower extremity edema. He has chronic kidney disease. ProBNP level is elevated. He is also noted to have hyponatremia. At the same time, he was treated with antibiotics during the earlier admission which resulted in no improvement in his condition. He is coming in with worsening shortness of breath. There was a concern for malignancy in this patient. Noted a previous CAT scan of the chest abdomen and pelvis that was done showed finding which suggested a lung mass and this is a nodular irregular lesion and the left upper lobe extending to the pleural surface and sensory to the hilum. The pleural surface itself is irregular and nodular. There is suspicion for malignancy. There is also suspicion for a left hilar lymphadenopathy. This needs to be further investigated. This was absent on a previous CAT scan done in 2019 and obviously this is a new finding. The patient's CAT scan was done without contrast. Since then, the patient was hospitalized and treated with antibiotics without any improvement. 2 nonspecific abdominal pain and distention with negative workup at least on a CAT scan of the abdomen. There is some liver dysfunction related to chronic liver disease. 3 coronary artery disease with previous coronary intervention and stenting 4 chronic kidney disease, stage III secondary to diabetic nephropathy 5 COPD which is currently inactive in stable 6 chronic right hemidiaphragmatic elevation/paralysis 7 paroxysmal atrial fibrillation current rhythm is paced and the patient is demented on long-term medical condition with Xarelto 8 history of tachybradycardia syndrome past pacemaker insertion 9 hypertensive heart disease with LV concentric hypertrophy 10 diabetes mellitus 11 hypertension 12 hyperlipidemia 13 osteoarthritis with previous history of herniated disc involving lower back 14 episodic epistaxis, had a ENT evaluation outpatient basis Plan stop Levaquin as the patient was treated with Levaquin for more than 10 days without any interval improvement. No suspicion for any underlying infection at this point in time. Stop IV Solu-Medrol Put the patient on IV Lasix 40 mg every 12 hours Monitor sodium level Monitor urine output Repeat chest x-ray on a daily basis and assess for interval improvement Will ultimately need a PET scan and a bronchoscopy with lavage and the biopsy of the left lung findings Resume all medications for now. We'll continue to follow outpatient
[2021-08-04] MEDS ORDERED: INSULIN DETEMIR (LEVEMIR) 100 UNIT/ML SYR SQ SCH (21:00)
[2021-08-04 21:20] LABS: Glucose,Whole Blood 305 mg/dL (75-99)
[2021-08-04] MEDS: METOPROLOL TARTRATE 50 MG TAB PO SCH (22:18)
[2021-08-04] MEDS: MONTELUKAST 10 MG TAB PO SCH (22:18)
[2021-08-04] MEDS: allopurinoL 100 MG TAB PO SCH (22:18)
[2021-08-04] MEDS: FUROSEMIDE 10 MG/ML 4 ML VIAL IV SCH (22:18)
[2021-08-04] MEDS: DILTIAZEM ORAL 30 MG TAB PO SCH (23:00)
[2021-08-04] MEDS: TEMAZEPAM 15 MG CAP PO PRN (23:05)
[2021-08-05] MEDS: FLECAINIDE 50 MG TAB PO SCH ×3 (05:38→20:59)
[2021-08-05 06:56] LABS: Glucose,Whole Blood 388 mg/dL (75-99)
--- NOTE | 2021-08-05 08:26 | XR ---
EXAMINATION TYPE: XR chest 1V portable DATE OF EXAM: 08/05/2021 COMPARISON: 08/04/2021 HISTORY: Shortness of breath TECHNIQUE: Single frontal view of the chest is obtained. FINDINGS: Cardiac device noted. There are surgical clips in the abdomen there is a bilateral infiltr ates with small right effusion stable in appearance. Heart size unchanged. No sizable pneumothorax. IMPRESSION: Stable bilateral infiltrate and small effusion.
[2021-08-05] MEDS ORDERED: RIVAROXABAN 15 MG TAB PO SCH ×2 (09:00→17:30)
[2021-08-05] MEDS: IPRATROPIUM-ALBUTEROL 3 ML NEB INHALATION SCH ×4 (09:05→20:49)
[2021-08-05 09:17] LABS: Basophils # (A) 0.01 X 10*3/uL (0.00-0.10); Basophils % (A) 0.1 %; Eosinophils # (A) 0 X 10*3/uL (0.04-0.35); Eosinophils % (A) 0 %; HCT 32.6 % (39.6-50.0); HGB 10.8 g/dL (13.0-17.0); Lymphocytes # (A) 0.33 X 10*3/uL (0.90-5.00); MCH 30.6 pg (27.0-32.0); MCHC 33.1 g/dL (32.0-37.0); MCV 92.4 fL (80.0-97.0); Mean Platelet Volume 11.9 fL (9.5-12.2); Monocytes # (A) 0.35 X 10*3/uL (0.20-1.00); Monocytes % (A) 3.2 %; Neutrophils # (A) 10.03 X 10*3/uL (1.80-7.70); Neutrophils % (A) 92.6 %; Platelet Count 190 X 10*3/uL (140-440); RBC 3.53 X 10*6/uL (4.40-5.60); RDW 14.9 % (11.5-14.5); WBC 10.84 X 10*3/uL (4.50-10.00)
[2021-08-05 09:55] LABS: African American GFR (CKD) 34.9 (60.0-200.0); Anion Gap 10.2 mmol/L (4.00-12.00); BUN/Creat Ratio 23.64 Ratio (12.00-20.00); Calcium 8.6 mg/dL (8.7-10.3); Carbon Dioxide 29.8 mmol/L (21.6-31.8); Non-African American GFR(CKD) 30.1 (60.0-200.0)
[2021-08-05] MEDS: FUROSEMIDE 10 MG/ML 4 ML VIAL IV SCH ×2 (09:56→19:41)
[2021-08-05] MEDS: METOPROLOL TARTRATE 50 MG TAB PO SCH ×2 (09:57→20:58)
[2021-08-05] MEDS: hydrALAZINE HCL 50 MG TAB PO SCH ×3 (09:57→20:58)
[2021-08-05] MEDS: PRAVASTATIN SODIUM 20 MG TAB PO SCH (09:57)
[2021-08-05] MEDS: LACTOBACILLUS ACIDOPH & BULGAR 1 EACH PACKET PO SCH (09:57)
[2021-08-05] MEDS: CHOLECALCIFEROL 25 MCG (1000 IU) TABLET PO SCH (09:57)
[2021-08-05] MEDS: PANTOPRAZOLE 40 MG TABLET PO SCH (09:57)
[2021-08-05] MEDS: allopurinoL 100 MG TAB PO SCH ×2 (09:57→20:58)
[2021-08-05] MEDS: ISOSORBIDE MONONITRATE ER 30 MG TAB.ER.24H PO SCH (09:57)
[2021-08-05] MEDS: DILTIAZEM ORAL 30 MG TAB PO SCH ×2 (09:58→21:16)
[2021-08-05] MEDS: INSULIN ASPART (NovoLOG) 100 UNIT/ML VIAL SQ SCH ×6 (09:59→20:56)
[2021-08-05] MEDS ORDERED: LEVOFLOXACIN 500MG-D5W PMX 500 MG in DEXTROSE/WATER 1 100ML.BAG IVPB SCH (11:00)
[2021-08-05 11:21] LABS: Glucose,Whole Blood 407 mg/dL (75-99)
--- NOTE | 2021-08-05 11:25 | P.CRDCN ---
History of Present Illness Consult date: 08/05/21 History of present illness: HISTORY OF PRESENT ILLNESS: This is a 66-year-old male with a past medical history significant for coronary artery disease with previous PCI to diagonal branch and circumflex, paroxysmal atrial fibrillation on anticoagulation with Xarelto, sick sinus syndrome with previous pacemaker implantation, diabetes, chronic kidney disease, hypertension, hyperlipidemia, liver disease, diastolic heart failure, and former nicotine dependence. Patient follows in the office with Dr. Morgan. We have been asked to see the patient in consultation for dyspnea. Patient examined at the bedside. Patient was recently hospitalized secondary to shortness of breath. He was treated for possible pneumonia and discharged home with antibiotics. He states his shortness of breath has not improved. He also reports over the past couple days he has noticed increased lower extremity edema. Patient recently underwent thoracentesis on 07/30/2021 with removal of 350 mL. She had an echocardiogram completed in June 2021 revealing ejection fraction 55-60%. Mild aortic stenosis. Mild mitral regurgitation. Mild tricuspid regurgitation. Patient underwent CT of the chest in June 2021 with findings worrisome for bronchogenic carcinoma left upper lobe per radiologist dictation. The patient states he was supposed to have a PET scan completed tomorrow. The patient was found to be in acute heart failure when he presented to the hospital. He was started on IV Lasix. Patient states his shortness of breath has improved today. He also reports improvement in his lower extremity edema. The patient does report having a mild nosebleed since coming to the hospital. He also reports having some blood when he has blown his nose over the past week. EKG reveals sinus mechanism with nonspecific ST-T wave changes Chest xray bilateral infiltrates with small bilateral pleural effusions Laboratory data: WBC 10.84. Hemoglobin 10.8. Platelet count 190. Sodium 133. Potassium 4.0. BUN 52. Creatinine 2.2. Troponin 0.043. ProBNP 6320. Current home cardiac medications include hydralazine 100 mg 3 times a day, Cardizem 90 mg twice a day, Xarelto 15 mg daily, pravastatin 20 g daily, metoprolol tartrate 50 g twice a day, Imdur 30 mg daily, Lasix 40 mg twice a day, flecainide 50 mg every 12 hours REVIEW OF SYSTEMS: At the time of my exam: CONSTITUTIONAL: Denies fever or chills. HEENT: Denies blurred vision, vision changes, or eye pain. Denies hemoptysis CARDIOVASCULAR: Denies chest pain. Denies orthopnea. Denies PND. Denies palpitations RESPIRATORY: Denies shortness of breath. GASTROINTESTINAL: Denies abdominal pain. Denies nausea or vomiting. HEMATOLOGIC: Denies bleeding disorders. GENITOURINARY: Denies any blood in urine. SKIN: Denies pruitis. Denies rash. PHYSICAL EXAM: VITAL SIGNS: Reviewed. GENERAL: Well-developed in no acute distress. HEENT: Head is normocephalic. Pupils are equal, round. Sclerae anicteric. Mucous membranes of the mouth are moist. Neck supple. No JVD or thyromegaly LUNGS: Respirations even and unlabored. Lungs diminished with a few crackles to left lung base. HEART: Regular rate and rhythm. S1 and S2 heard. ABDOMEN: Soft. Nondistended. Nontender. EXTREMITIES: Normal range of motion. No clubbing or cyanosis. Peripheral pulses intact. Trace bilateral lower extremity edema NEUROLOGIC: Awake and alert. Oriented x 3. ASSESSMENT: Shortness of breath Abnormal CT chest, concerning for malignancy Acute exacerbation of chronic diastolic heart failure, ejection fraction 55-60% Paroxysmal atrial fibrillation, on anticoagulation with Xarelto Coronary artery disease with previous PCI to diagonal branch and circumflex Sick sinus syndrome with previous pacemaker implantation Chronic kidney disease Hypertension Hyperlipidemia Diabetes mellitus Former nicotine dependence PLAN: No need to repeat echocardiogram as this was performed last month Resume home cardiac medications Resume Xarelto. Monitor for bleeding Continue IV lasix Monitor kidney function Accurate I&O Daily weights Pulmonary following. Await further recommendations Further recommendations pending patient course Nurse practitioner note has been reviewed by physician. Signing provider agrees with the documented findings, assessment, and plan of care. Past Medical History Past Medical History: Atrial Fibrillation, Coronary Artery Disease (CAD), Chest Pain / Angina, Heart Failure, COPD, Diabetes Mellitus, GERD/Reflux, Hyperlipidemia, Hypertension, Liver Disease, Myocardial Infarction ([place]), Prostate Disorder, Renal Disease, Skin Disorder, Vascular Disorder Additional Past Medical History / Comment(s): history ofAfib with RVR, tachybrady syndrome with pacemaker, IDDM type II, neuropathy bilateral feet, stage III chronic kidney disease, chronic CHF, R pleural effusion, liver cirrhosis, BPH, DJD, herniated discs low back, chronic low back pain, varicose veins , anemia with hx of iron infusions., past asbestos exposure, celiac disease, dermatitis herpetiformis. Last Myocardial Infarction Date:: 06/2018 History of Any Multi-Drug Resistant Organisms: None Reported Past Surgical History: Ablation, Cardiac Ablation, Cholecystectomy, Heart Cat heterization With Stent, Pacemaker, Tonsillectomy Additional Past Surgical History / Comment(s): PCI with STENTS x 3, bilateral cataracts removed with lens implants, colonoscopy, [employer] pacemaker Past Anesthesia/Blood Transfusion Reactions: No Reported Reaction Date of Last Stent Placement:: 2017 Type of Cardiac Device: Permanent Pacemaker Device Placement Date:: 02/02/19 Past Psychological History: No Psychological Hx Reported Additional Psychological History / Comment(s): Pt resides with his spouse. He is independent. He is retired from [employer]. Smoking Status: Former smoker Past Alcohol Use History: None Reported Additional Past Alcohol Use History / Comment(s): Started smoking in 1967, a half pack a day. Quit smoking January 2019. Pt states he drank heavy in the past but since 2008 rarely. Past Drug Use History: None Reported - Past Family History Mother Family Medical History: Diabetes Mellitus Father Family Medical History: Myocardial Infarction ([place]) Additional Family Medical History / Comment(s): Father had a [place] in his 70s. Brother(s) Family Medical History: Myocardial Infarction ([place]) Additional Family Medical History / Comment(s): Brother had a [place] in his 50s. Medications and Allergies Home Medications Medication Instructions Recorded Confirmed Type Fluticasone Nasal [place] [Flonase 1 spr EA NOSTRIL DAILY PRN 05/12/16 08/04/21 History Nasal [place]] Cholecalciferol [Vitamin D3 (25 75 mcg PO -BRKFST 08/26/18 08/04/21 History Mcg = 1000 Iu)] Isosorbide Mononitrate ER [Imdur] 30 mg PO DAILY 01/16/19 08/04/21 History Pantoprazole [Protonix] 40 mg PO DAILY 01/16/19 08/04/21 History Montelukast [Singulair] 10 mg PO HS 02/12/19 08/04/21 History Loratadine [Claritin] 10 mg PO DAILY 03/28/19 08/04/21 History Metoprolol Tartrate [Lopressor] 50 mg PO BID 03/28/19 08/04/21 History Furosemide [Lasix] 40 mg PO BID@0900,1600 #60 tab 04/10/19 08/04/21 Rx Ipratropium-Albuterol Nebulize 3 ml INHALATION RT-QID PRN 06/12/19 08/04/21 History [Duoneb 0.5 mg-3 mg/3 ml Soln] Vitamin B Complex 1 cap PO DAILY 06/24/19 08/04/21 History allopurinoL [Zyloprim] 100 mg PO BID 06/24/19 08/04/21 History Ubidecarenone [Co Q-10] 100 mg PO DAILY 08/01/19 08/04/21 History Flecainide [Tambocor] 50 mg PO Q12H 11/11/19 08/04/21 History Pravastatin Sodium [Pravachol] 20 mg PO DAILY 11/11/19 08/04/21 History Albuterol Sulfate [Ventolin HFA] 1 - 2 puff INHALATION RT-Q6H PRN 07/25/21 08/04/21 History Fluticasone/Salmeterol 1 puff INHALATION Q48H 07/25/21 08/04/21 History [Fluticasone-Salmeterol 232-14] Folic Acid 0.4 mg PO DAILY 07/25/21 08/04/21 History Magnesium Oxide [Goss] 500 mg PO DAILY 07/25/21 08/04/21 History Rivaroxaban [Xarelto] 15 mg PO DAILY 07/25/21 08/04/21 History dilTIAZem HCL 90 mg PO BID 07/25/21 08/04/21 History hydrALAZINE HCL [Apresoline] 100 mg PO TID 07/25/21 08/04/21 History Nitroglycerin Sl Tabs [Nitrostat] 0.4 mg SL Q5M PRN 07/26/21 08/04/21 History Ipratropium-Albuterol Nebulize 3 ml INHALATION RT-QID 30 Days #90 07/30/21 08/04/21 Rx [Duoneb 0.5 mg-3 mg/3 ml Soln] ml Lactobacillus Acidoph & Bulgar 1 packet PO DAILY 30 Days #30 07/30/21 08/04/21 Rx [Lactinex] packet Levofloxacin [Levaquin] 750 mg PO Q48H 7 Days #7 tab 07/30/21 08/04/21 Rx Insulin Detemir (Levemir) [Levemir] 56 unit SQ HS 08/04/21 08/04/21 History Insulin Lispro [humaLOG] See Protocol SQ AC-TID 08/04/21 08/04/21 History Allergies Allergy/AdvReac Type Severity Reaction Status Date / Time amlodipine Allergy Swelling Verified 08/04/21 09:43 amoxicillin Allergy Anaphylaxis Verified 08/04/21 09:43 cephalexin monohydrate Allergy Rash/Hives Verified 08/04/21 09:43 [From Keflex] clindamycin Allergy Rash/Hives Verified 08/04/21 09:43 Penicillins Allergy Rash/Hives Verified 08/04/21 09:43 Sulfa (Sulfonamide Allergy Anaphylaxis Verified 08/04/21 09:43 Antibiotics) sulfamethoxazole Allergy Anaphylaxis Verified 08/04/21 09:43 [From Bactrim] trimethoprim [From Bactrim] Allergy Anaphylaxis Verified 08/04/21 09:43 carvedilol AdvReac "MAKES ME Verified 08/04/21 09:43 LOONEY" Physical Exam Vitals: Vital Signs Temp Pulse Pulse Resp BP BP Pulse Ox 08/05/21 07:00 97.7 F 73 18 151/85 91 L 08/05/21 03:10 98.2 F 83 16 154/63 95 08/04/21 20:58 97.7 F 87 19 167/82 93 L 08/04/21 20:18 80 08/04/21 20:04 78 08/04/21 20:00 99.0 F 72 22 148/65 94 L 08/04/21 19:00 70 22 144/71 94 L 08/04/21 16:00 99.0 F 73 22 155/77 94 L 08/04/21 15:52 82 08/04/21 15:39 80 08/04/21 14:00 78 24 92 L 08/04/21 12:00 97.7 F 70 24 154/76 92 L Intake and Output 08/04/21 08/05/21 08/05/21 22:59 06:59 14:59 Output Total 500 Balance -500 Output: Urine 500 Other: # Voids 1 3 Weight 88.904 kg 86.3 kg Results 08/05/21 06:07 08/05/21 06:07 CBC 08/05/21 Range/Units 06:07 WBC 10.84 H (4.50-10.00) X 10*3/uL RBC 3.53 L (4.40-5.60) X 10*6/uL Hgb 10.8 L (13.0-17.0) g/dL Hct 32.6 L (39.6-50.0) % Plt Count 190 (140-440) X 10*3/uL Comprehensive Metabolic Panel 08/05/21 Range/Units 06:07 Sodium 133 L (135-145) mmol/L Potassium 4.0 (3.5-5.5) mmol/L Chloride 93 L (96-109) mmol/L Carbon Dioxide 29.8 (21.6-31.8) mmol/L BUN 52.0 H (9.0-27.0) mg/dL Creatinine 2.2 H (0.6-1.5) mg/dL Glucose 382 H (70-110) mg/dL Calcium 8.6 L (8.7-10.3) mg/dL Current Medications Generic Name Dose Route Start Last Admin Trade Name Freq PRN Reason Stop Dose Admin Albuterol/Ipratropium 3 ml 08/04/21 12:00 08/05/21 09:05 Ipratropium-Albuterol 3 Ml Neb INHALATION Not Given RT-QID ALONZO Albuterol/Ipratropium 3 ml 08/04/21 10:41 Ipratropium-Albuterol 3 Ml Neb INHALATION RT-Q4H PRN Shortness Of Breath Or Wheezing Allopurinol 100 mg 08/04/21 21:00 08/05/21 09:57 Allopurinol 100 Mg Tab PO 100 mg BID ALONZO Administration Budesonide/Formoterol Fumarate 2 puff 08/04/21 14:00 08/04/21 20:01 Symbicort 160-4.5 Mcg Inhaler INHALATION 2 puff RT-BID ALONZO Administration Cholecalciferol 75 mcg 08/05/21 08:30 08/05/21 09:57 Cholecalciferol 25 Mcg (1000 Iu) Tablet PO 75 mcg PC-BRKFST ALONZO Administration Diltiazem HCl 90 mg 08/04/21 21:00 08/05/21 09:58 Diltiazem Oral 30 Mg Tab PO 90 mg BID ALONZO Administration Flecainide Acetate 50 mg 08/05/21 09:00 08/05/21 09:58 Flecainide 50 Mg Tab PO 50 mg BID ALONZO Administration Furosemide 40 mg 08/04/21 21:00 08/05/21 09:56 Furosemide 10 Mg/Ml 4 Ml Vial IV 40 mg Q12HR ALONZO Administration Hydralazine HCl 100 mg 08/04/21 16:00 08/05/21 09:57 Hydralazine Hcl 50 Mg Tab PO 100 mg TID ALONZO Administration Insulin Aspart 0 unit 08/04/21 17:30 08/05/21 09:59 Insulin Aspart (Novolog) 100 Unit/Ml Vial SQ 18 unit ACHS ALONZO Administration Protocol Insulin Aspart 7 unit 08/04/21 17:30 08/05/21 09:59 Insulin Aspart (Novolog) 100 Unit/Ml Vial SQ 7 unit AC-TID ALONZO Administration Insulin Detemir 56 unit 08/04/21 21:00 08/04/21 23:00 Insulin Detemir (Levemir) 100 Unit/Ml Syr SQ 56 unit HS ALONZO Administration Isosorbide Mononitrate 30 mg 08/05/21 09:00 08/05/21 09:57 Isosorbide Mononitrate Er 30 Mg Tab.Er.24h PO 30 mg DAILY ALONZO Administration Lactobacillus Acidoph/Bulgaricus 1 each 08/05/21 09:00 08/05/21 09:57 Lactobacillus Acidoph & Bulgar 1 Each Packet PO 1 each DAILY ALONZO Administration Metoprolol Tartrate 50 mg 08/04/21 21:00 08/05/21 09:57 Metoprolol Tartrate 50 Mg Tab PO 50 mg BID ALONZO Administration Montelukast Sodium 10 mg 08/04/21 21:00 08/04/21 22:18 Montelukast 10 Mg Tab PO 10 mg HS ALONZO Administration Pantoprazole Sodium 40 mg 08/05/21 07:30 08/05/21 09:57 Pantoprazole 40 Mg Tablet PO 40 mg DAILY@0730 ALONZO Administration Pravastatin Sodium 20 mg 08/05/21 09:00 08/05/21 09:57 Pravastatin Sodium 20 Mg Tab PO 20 mg DAILY ALONZO Administration Temazepam 15 mg 08/04/21 22:14 08/04/21 23:05 Temazepam 15 Mg Cap PO 15 mg HS PRN Administration Insomnia Intake and Output 08/04/21 08/05/21 08/05/21 22:59 06:59 14:59 Output Total 500 Balance -500 Output: Urine 500 Other: # Voids 1 3 Weight 88.904 kg 86.3 kg 08/05/21 06:07 08/05/21 06:07
[2021-08-05] MEDS: SYMBICORT 160-4.5 MCG INHALER INHALATION SCH ×2 (11:34→20:49)
[2021-08-05] MEDS ORDERED: INSULIN ASPART (NovoLOG) 100 UNIT/ML VIAL SQ SCH (12:30)
--- NOTE | 2021-08-05 14:32 | P.PN ---
Subjective Progress Note Date: 08/05/21 Patient is a 66-year-old male with a known history of COPD on home oxygen, recent lung mass on CT chest on follow up with pulmonary, persistent atrial fibrillation on anticoagulation with xarelto, sick sinus syndrome with history of permanent pacemaker placement, coronary artery disease history of stent placement to circumflex, diabetes type 2 insulin-dependent, hypertension, hyperlipidemia, chronic CHF with diastolic dysfunction and previous history of smoking and alcohol use presents to ER with complaints of worsening shortness of breath. Patient was recently admitted to the hospital due to CHF and COPD exacerbation and was discharged on 08/16/2021. Underwent right thoracentesis on 07/30/2021. Patient says that he has been having postnasal drip and cough with clear to light yellowish sputum production along blood-tinged sputum. Denied any blood clots. Denied any fever or chills. Patient is also complaining of worsening leg swelling. No compressive chest pain. No headache or dizziness or lightheadedness. Patient has been using oxygen at home. On admission were pressure was 174/86, pulse 70 this was 19 pulse ox 90% on 4 L oxygen. Afebrile. Laboratory data showed WBC 14.2, hemoglobin 12.8 and platelets 205 Sodium 128 potassium 3.9, bicarb 28, BUN 14 and creatinine 1.69 Bilirubin 1.8, AST 53 ALT 91 and alk phos 171, troponin 0.043, proBNP 6320 Chest x-ray showed bilateral infiltrate with small bilateral effusions appears to be stable. 08/05/2021 Patient is seen and evaluated in follow-up this morning continues to be on 4 L of oxygen up and walking around the room with no worsening shortness of breath. Pulmonary and cardiology following closely. Patient will sugars have been elevated and normally maintained on pre-meal insulin along with sliding scale and long-acting and will increase the dose of pre-meal and long-acting and monitor closely. Patient continues on IV Lasix 40 mg twice daily and is diuresing well. Antibiotics and steroids have been discontinued. Patient normally on Xarelto for persistent atrial fibrillation which was on hold for continued epistaxis and will be resumed today and monitor closely for any signs of bleeding. Blood count is 10.84 with a hemoglobin of 10.8, sodium is 133 with a potassium of 4.0 current BUN is 52 with a creatinine of 2.2 and blood sugars have been upwards of 300 to 400s. Review of systems: Constitutional: No reports of fatigue, fever, or chills Cardiovascular: No reports of chest pain or palpitations Respiratory: No reports of worsening shortness of breath or cough GI: No reports of nausea, vomiting, or diarrhea : No reports of dysuria or retention Neurovascular: No reports of weakness or numbness All medications have been reviewed Active Medications Albuterol/Ipratropium (Ipratropium-Albuterol 3 Ml Neb) 3 ml INHALATION RT-QID [facility] Last Admin: 08/05/21 11:31 Dose: 3 ml Documented by: Albuterol/Ipratropium (Ipratropium-Albuterol 3 Ml Neb) 3 ml INHALATION RT-Q4H PRN PRN Reason: Shortness Of Breath Or Wheezing Allopurinol (Allopurinol 100 Mg Tab) 100 mg PO BID [facility] Last Admin: 08/05/21 09:57 Dose: 100 mg Documented by: Budesonide/Formoterol Fumarate (Symbicort 160-4.5 Mcg Inhaler) 2 puff INHALATION RT-BID [facility] Last Admin: 08/05/21 11:34 Dose: 2 puff Documented by: Cholecalciferol (Cholecalciferol 25 Mcg (1000 Iu) Tablet) 75 mcg PO PC-BRKFST [facility] Last Admin: 08/05/21 09:57 Dose: 75 mcg Documented by: Diltiazem HCl (Diltiazem Oral 30 Mg Tab) 90 mg PO BID [facility] Last Admin: 08/05/21 09:58 Dose: 90 mg Documented by: Flecainide Acetate (Flecainide 50 Mg Tab) 50 mg PO BID [facility] Last Admin: 08/05/21 09:58 Dose: 50 mg Documented by: Furosemide (Furosemide 10 Mg/Ml 4 Ml Vial) 40 mg IV Q12HR [facility] Last Admin: 08/05/21 09:56 Dose: 40 mg Documented by: Hydralazine HCl (Hydralazine Hcl 50 Mg Tab) 100 mg PO TID [facility] Last Admin: 08/05/21 09:57 Dose: 100 mg Documented by: Insulin Aspart (Insulin Aspart (Novolog) 100 Unit/Ml Vial) 0 unit SQ ACHS [facility]; Protocol Last Admin: 08/05/21 12:43 Dose: 20 unit Documented by: Insulin Aspart (Insulin Aspart (Novolog) 100 Unit/Ml Vial) 15 unit SQ AC-TID [facility] Insulin Detemir (Insulin Detemir (Levemir) 100 Unit/Ml Syr) 60 unit SQ HS [facility] Isosorbide Mononitrate (Isosorbide Mononitrate Er 30 Mg Tab.Er.24h) 30 mg PO DAILY [facility] Last Admin: 08/05/21 09:57 Dose: 30 mg Documented by: Lactobacillus Acidoph/Bulgaricus (Lactobacillus Acidoph & Bulgar 1 Each Packet) 1 each PO DAILY [facility] Last Admin: 08/05/21 09:57 Dose: 1 each Documented by: Metoprolol Tartrate (Metoprolol Tartrate 50 Mg Tab) 50 mg PO BID [facility] Last Admin: 08/05/21 09:57 Dose: 50 mg Documented by: Montelukast Sodium (Montelukast 10 Mg Tab) 10 mg PO HS [facility] Last Admin: 08/04/21 22:18 Dose: 10 mg Documented by: Pantoprazole Sodium (Pantoprazole 40 Mg Tablet) 40 mg PO DAILY@0730 [facility] Last Admin: 08/05/21 09:57 Dose: 40 mg Documented by: Pravastatin Sodium (Pravastatin Sodium 20 Mg Tab) 20 mg PO DAILY [facility] Last Admin: 08/05/21 09:57 Dose: 20 mg Documented by: Rivaroxaban (Rivaroxaban 15 Mg Tab) 15 mg PO W/SUPPER [facility]; Protocol Temazepam (Temazepam 15 Mg Cap) 15 mg PO HS PRN PRN Reason: Insomnia Last Admin: 08/04/21 23:05 Dose: 15 mg Documented by: Objective - Vital Signs Vital signs: Vital Signs Temp 97.7 F 08/05/21 07:00 Pulse 73 08/05/21 07:00 Resp 18 08/05/21 07:00 BP 151/85 08/05/21 07:00 Pulse Ox 91 L 08/05/21 07:00 Intake & Output 08/04/21 08/05/21 08/05/21 18:59 06:59 18:59 Output Total 600 500 Balance -600 -500 Weight 88.904 kg 86.3 kg Output: Urine 600 500 Other: # Voids 3 - Exam Patient is sitting up in the chair comfortably, no acute distress, awake alert and oriented.. HEENT: Normocephalic. Neck is supple. Pupils reactive. Nostrils clear. Oral cavity is moist. Neck reveals no JVD, carotid bruits, or thyromegaly. CHEST EXAMINATION: Trachea is central. Symmetrical expansion. Bilateral diminished air entry and scattered rhonchi. Nonlabored breathing.. CARDIAC: Normal S1, S2 with no gallops. No murmurs ABDOMEN: Soft. Bowel sounds normal. No organomegaly. No abdominal bruits. Extremities: No edema. No clubbing or cyanosis, significant improvement in lower extremity edema noted Neurologically awake, alert, oriented x3 with well-coordinated movements. No focal deficits noted Skin: No rash or skin lesions. Psychiatric: Cooperative. Non-suicidal Musculoskeletal: No joint swelling or deformity. Normal range of motion. - Labs CBC & Chem 7: 08/05/21 06:07 08/05/21 06:07 Labs: Abnormal Lab Results - Last 24 Hours (Table) 08/04/21 08/04/21 08/04/21 Range/Units 08:33 08:33 12:11 Sodium 128 L (137-145) mmol/L Chloride 92 L (98-107) mmol/L BUN 49 H (9-20) mg/dL Creatinine 1.69 H (0.66-1.25) mg/dL Glucose 348 H (74-99) mg/dL POC Glucose (mg/dL) 334 H (75-99) mg/dL Total Bilirubin 1.8 H (0.2-1.3) mg/dL ALT 91 H (4-49) U/L Alkaline Phosphatase 171 H (38-126) U/L Troponin I 0.043 H* (0.000-0.034) ng/mL Total Protein 5.5 L (6.3-8.2) g/dL Albumin 3.1 L (3.5-5.0) g/dL 08/04/21 08/04/21 08/05/21 Range/Units 17:13 21:15 06:50 Sodium (137-145) mmol/L Chloride (98-107) mmol/L BUN (9-20) mg/dL Creatinine (0.66-1.25) mg/dL Glucose (74-99) mg/dL POC Glucose (mg/dL) 402 H 305 H 388 H (75-99) mg/dL Total Bilirubin (0.2-1.3) mg/dL ALT (4-49) U/L Alkaline Phosphatase (38-126) U/L Troponin I (0.000-0.034) ng/mL Total Protein (6.3-8.2) g/dL Albumin (3.5-5.0) g/dL Assessment and Plan Assessment: Worsening shortness of breath secondary to acute COPD exacerbation Acute on chronic CHF with diastolic dysfunction Recently diagnosed lung mass. Supposed to follow with pulmonary clinic. [facility] led for outpatient PET scan on 08/13/2021 Hyperglycemia with uncontrolled diabetes type 2 Elevated troponin level unlikely ACS. Hyponatremia likely hypervolemic. Possible SIADH cannot be excluded. Bilateral small pleural effusions with recent history of right thoracentesis Chronic postnasal drip Persistent atrial fibrillation on iron tablets with xarelto Sick sinus syndrome with history of permanent pacemaker placement, coronary artery disease history of stent placement to circumflex Hypertension Hyperlipidemia Chronic hypoxic respiratory failure secondary to COPD Previous history of smoking History of liver cirrhosis DVT prophylaxis patient is already on xarelto Plan: Continue with oxygen supplementation. Pulmonary and cardiology following closely and resuming Xarelto and will monitor closely for any signs of bleeding or epistaxis. IV steroids along with antibiotics have been discontinued. Patient continues on IV Lasix 40 mg twice daily and diuresing well. Patient blood sugars continue to be elevated in the 300 to 400s and will increase pre- meal and long-acting dose and continue with sliding scale in addition and monitor Accu-Cheks before meals and at bedtime closely. Creatinine elevated at 2.2 most likely secondary to IV diuretics and will monitor closely and repeat a.m. labs. Due to multiple complex medical issues, prognosis is guarded. Further recommendations to follow based on the clinical course of the patient.
--- NOTE | 2021-08-05 15:47 | P.PN ---
Subjective Progress Note Date: 08/05/21 Principal diagnosis: Shortness of breath This is a 66-year-old male patient who came back to the emergency because of worsening shortness of breath, orthopnea, increase in lower extremity edema. The patient was hospitalized last week for worsening shortness of breath. The patient was given antibiotics with Levaquin. Pro-calcitonin level was nonelevated. The patient also had a right-sided pleural effusion and it was drained and the fluid itself belt turner to be a candidate with a low LDH and protein. This was consistent with CHF. The fluid cytology was negative. Never theless, the chest x-ray remained abnormal. The patient continued to have persistent infiltration the left perihilar area and some in the right upper lobe. He was discharged home on Levaquin. He was supposed to have an outpatient PET scan to further investigate a masslike consolidation in the left perihilar area. This has not been done yet. His current chest x-ray showing bilateral infiltrates and small effusions that are essentially stable. The blood work is showing WBC count of 14.2. Correlation profile is normal. Sodium level is at 128. Creatinine level is at 1.69 which is improved. Troponins of 0.04. ProBNP level is 6320. COVID-19 testing is been negative. The patient is currently on IV Lasix. He is known to have CAD, previous history approximately atrial fibrillation has been maintained on Xarelto on outpatient basis and the patient has chronic stage III kidney disease, congestion heart failure diastolic failure, diabetes mellitus, hypertension, hyperlipidemia and chronic liver disease in the form of the liver cirrhosis. He on and off, he continues to drink beer socially. As part of previous workup workup, CAT scan of the chest abdomen and pelvis was done on 07/25/2021. This was done without contrast. The CAT scan showed a left upper lobe nodular density with some peripheral soft tissue extension into the pleural margin. This is a irregular soft tissue d ensity extending proximally into the left hilum. There is also small left-sided pleural effusion. There is also evidence of subpleural noted that the on the left. There is background COPD. No clear mediastinal lymphadenopathy although suspected left hilar lymphadenopathy, hard to characterize because of absence of contrast. His liver has no other contour consistent with previous alcoholism. He is postcholecystectomy. CAT scan of the abdomen shows no abnormalities. Pancreas is normal. Spleen is normal. Bowels are within normal limits. The patient is currently on 4 L of oxygen by nasal cannula with a pulse ox of 93%. The echocardiogram from previous admission showed a EF around 55-60%, mild MR, mild TR, no evidence of any pulmonary pretension. July 2001 patient seen in follow-up on medical surgical floor. He was started on IV Lasix 40 mg twice daily, he is in -1.1 L fluid balance over the last 24 hours, he is breathing easier, lower extremity edema is improving, follow-up chest x-rays today was reviewed, showing some improvement in aeration although the radiologist felt that the bilateral infiltrates were stable in appearance. Xarelto remains on hold, at times patient still bringing up some blood-tinged sputum. Hemoglobin today is 10.8, white blood cell count is 10.8, platelet count is 190, sodium is 133, potassium is 4.0, chloride is 93, BUN is 52, creatinine is up slightly from yesterday in is at 2.2 on today's labs. We'll stop the Levaquin yesterday. His had no fever or chills. He is ambulating in the room tolerating activity well. Objective - Vital Signs Vital signs: Vital Signs Temp 97.9 F 08/05/21 14:07 Pulse 70 08/05/21 14:07 Resp 18 08/05/21 14:07 BP 132/63 08/05/21 14:07 Pulse Ox 95 08/05/21 14:07 Intake & Output 08/04/21 08/05/21 08/05/21 18:59 06:59 18:59 Output Total 600 500 Balance -600 -500 Weight 88.904 kg 86.3 kg Output: Urine 600 500 Other: # Voids 3 2 # Bowel Movements 1 - Exam GENERAL EXAM: Alert, very pleasant, 66-year-old white male, on 4 L of oxygen and pulse ox of 95% comfortable in no apparent distress. HEAD: Normocephalic/atraumatic. EYES: Normal reaction of pupils, equal size. Conjunctiva pink, sclera white. NOSE: Clear with pink turbinates. THROAT: No erythema or exudates. NECK: No masses, no JVD, no thyroid enlargement, no adenopathy. CHEST: No chest wall deformity. Symmetrical expansion. LUNGS: Equal air entry with diminished breath sounds and mild crackles at the bases CVS: Regular rate and rhythm, normal S1 and S2, no gallops, no murmurs, no rubs ABDOMEN: Soft, nontender. No hepatosplenomegaly, normal bowel sounds, no guarding or rigidity. EXTREMITIES: No clubbing, trace pretibial edema, no cyanosis, 2+ pulses and upper and lower extremities. MUSCULOSKELETAL: Muscle strength and tone normal. SPINE: No scoliosis or deformity SKIN: No rashes CENTRAL NERVOUS SYSTEM: Alert and oriented -3. No focal deficits, tone is normal in all 4 extremities. PSYCHIATRIC: Alert and oriented -3. Appropriate affect. Intact judgment and insight. - Labs CBC & Chem 7: 08/05/21 06:07 08/05/21 06:07 Labs: Abnormal Lab Results - Last 24 Hours (Table) 08/04/21 08/04/21 08/05/21 Range/Units 17:13 21:15 06:07 WBC 10.84 H (4.50-10.00) X 10*3/uL RBC 3.53 L (4.40-5.60) X 10*6/uL Hgb 10.8 L (13.0-17.0) g/dL Hct 32.6 L (39.6-50.0) % RDW 14.9 H (11.5-14.5) % Immature Gran # 0.12 H (0.00-0.04) X 10*3/uL Neutrophils # 10.03 H (1.80-7.70) X 10*3/uL Lymphocytes # 0.33 L (0.90-5.00) X 10*3/uL Eosinophils # 0 L (0.04-0.35) X 10*3/uL Sodium (135-145) mmol/L Chloride (96-109) mmol/L BUN (9.0-27.0) mg/dL Creatinine (0.6-1.5) mg/dL Est GFR (CKD-EPI)AfAm (60.0-200.0) Est GFR (CKD-EPI)NonAf (60.0-200.0) BUN/Creatinine Ratio (12.00-20.00) Ratio Glucose (70-110) mg/dL POC Glucose (mg/dL) 402 H 305 H (75-99) mg/dL Calcium (8.7-10.3) mg/dL 08/05/21 08/05/21 08/05/21 Range/Units 06:07 06:50 11:18 WBC (4.50-10.00) X 10*3/uL RBC (4.40-5.60) X 10*6/uL Hgb (13.0-17.0) g/dL Hct (39.6-50.0) % RDW (11.5-14.5) % Immature Gran # (0.00-0.04) X 10*3/uL Neutrophils # (1.80-7.70) X 10*3/uL Lymphocytes # (0.90-5.00) X 10*3/uL Eosinophils # (0.04-0.35) X 10*3/uL Sodium 133 L (135-145) mmol/L Chloride 93 L (96-109) mmol/L BUN 52.0 H (9.0-27.0) mg/dL Creatinine 2.2 H (0.6-1.5) mg/dL Est GFR (CKD-EPI)AfAm 34.9 L (60.0-200.0) Est GFR (CKD-EPI)NonAf 30.1 L (60.0-200.0) BUN/Creatinine Ratio 23.64 H (12.00-20.00) Ratio Glucose 382 H (70-110) mg/dL POC Glucose (mg/dL) 388 H 407 H (75-99) mg/dL Calcium 8.6 L (8.7-10.3) mg/dL Microbiology - Last 24 Hours (Table) 08/04/21 08:33 Blood Culture - Preliminary Blood No Growth after 24 hours 08/04/21 08:33 Blood Culture - Preliminary Blood No Growth after 24 hours Assessment and Plan Plan: Assessment: #1. acute hypoxic respiratory failure with development of bilateral pulmonary infiltrates and the right-sided pleural effusion that was drained recently and t his belt turner to be a transudate. The patient is coming in with fluid overload and increase in lower extremity edema. He has chronic kidney disease. ProBNP level is elevated. He is also noted to have hyponatremia. At the same time, he was treated with antibiotics during the earlier admission which resulted in no improvement in his condition. He is coming in with worsening shortness of breath. There was a concern for malignancy in this patient. Noted a previous CAT scan of the chest abdomen and pelvis that was done showed finding which suggested a lung mass and this is a nodular irregular lesion and the left upper lobe extending to the pleural surface and sensory to the hilum. The pleural surface itself is irregular and nodular. There is suspicion for malignancy. There is also suspicion for a left hilar lymphadenopathy. This needs to be further investigated. This was absent on a previous CAT scan done in 2019 and obviously this is a new finding. The patient's CAT scan was done without contrast. Since then, the patient was hospitalized and treated with antibiotics without any improvement. #2. nonspecific abdominal pain and distention with negative workup at least on a CAT scan of the abdomen. There is some liver dysfunction related to chronic liver disease. #3. coronary artery disease with previous coronary intervention and stenting #4. chronic kidney disease, stage III secondary to diabetic nephropathy #5. COPD which is currently inactive in stable #6. chronic right hemidiaphragmatic elevation/paralysis #7. paroxysmal atrial fibrillation current rhythm is paced and the patient is demented on long-term medical condition with Xarelto #8. history of tachybradycardia syndrome past pacemaker insertion #9. hypertensive heart disease with LV concentric hypertrophy #10. diabetes mellitus #11. hypertension #12. hyperlipidemia #13. osteoarthritis with previous history of herniated disc involving lower back #14. episodic epistaxis, had a ENT evaluation outpatient basis Plan: Continue with IV diuretics for another 24 hours We stopped the antibiotics, we stopped IV Solu-Medrol Suspicion for infection is low although not completely excluded We'll try to collect a sputum sample We feel that aeration is improved on today's chest x-ray with an area of possible lung mass in the left lung which is stable in appearance PET scan was rescheduled for a later date We'll continue medical treatment We'll continue to follow I performed a history & physical examination of the patient and discussed their management with my nurse practitioner, Jojo Langford. I reviewed the nurse practitioner's note and agree with the documented findings and plan of care. Lung sounds are positive for diminished breath sounds throughout the lung tobias. The findings and the impression was discussed with the patient. I attest to the documentation by the nurse practitioner. Time with Patient: Less than 30
[2021-08-05 16:11] LABS: Glucose,Whole Blood 157 mg/dL (75-99)
[2021-08-05 20:48] LABS: Glucose,Whole Blood 158 mg/dL (75-99)
[2021-08-05] MEDS: INSULIN DETEMIR (LEVEMIR) 100 UNIT/ML SYR SQ SCH (20:57)
[2021-08-05] MEDS: MONTELUKAST 10 MG TAB PO SCH (20:58)
[2021-08-05] MEDS: TEMAZEPAM 15 MG CAP PO PRN (22:01)
[2021-08-06 07:21] LABS: Glucose,Whole Blood 151 mg/dL (75-99)
[2021-08-06] MEDS: FLECAINIDE 50 MG TAB PO SCH ×2 (07:48→20:47)
[2021-08-06] MEDS: FUROSEMIDE 10 MG/ML 4 ML VIAL IV SCH ×2 (07:48→20:46)
[2021-08-06] MEDS: PANTOPRAZOLE 40 MG TABLET PO SCH (07:48)
[2021-08-06] MEDS: METOPROLOL TARTRATE 50 MG TAB PO SCH ×2 (07:48→20:47)
[2021-08-06] MEDS: DILTIAZEM ORAL 30 MG TAB PO SCH ×2 (07:48→20:47)
[2021-08-06] MEDS: hydrALAZINE HCL 50 MG TAB PO SCH ×3 (07:48→20:47)
[2021-08-06] MEDS: PRAVASTATIN SODIUM 20 MG TAB PO SCH (07:48)
[2021-08-06] MEDS: allopurinoL 100 MG TAB PO SCH ×2 (07:49→20:47)
[2021-08-06] MEDS: ISOSORBIDE MONONITRATE ER 30 MG TAB.ER.24H PO SCH (07:49)
[2021-08-06] MEDS: CHOLECALCIFEROL 25 MCG (1000 IU) TABLET PO SCH (07:49)
[2021-08-06] MEDS: INSULIN ASPART (NovoLOG) 100 UNIT/ML VIAL SQ SCH ×6 (07:49→20:58)
[2021-08-06] MEDS: LACTOBACILLUS ACIDOPH & BULGAR 1 EACH PACKET PO SCH (07:49)
--- NOTE | 2021-08-06 08:24 | XR ---
EXAMINATION TYPE: XR chest 1V portable DATE OF EXAM: 08/06/2021 COMPARISON: 08/05/2021 HISTORY: Shortness of breath TECHNIQUE: Single frontal view of the chest is obtained. FINDINGS: Multifocal infiltrates with small right effusion stable. Cardiac device and cardiac enlarg ement stable. No pneumothorax. Surgical clips in the abdomen. IMPRESSION: Multifocal pneumonia stable.
[2021-08-06] MEDS: IPRATROPIUM-ALBUTEROL 3 ML NEB INHALATION SCH ×4 (08:35→20:03)
[2021-08-06] MEDS: SYMBICORT 160-4.5 MCG INHALER INHALATION SCH ×2 (08:35→20:03)
[2021-08-06 11:37] LABS: Basophils # (A) 0.01 X 10*3/uL (0.00-0.10); Basophils % (A) 0.1 %; Eosinophils # (A) 0.01 X 10*3/uL (0.04-0.35); Eosinophils % (A) 0.1 %; HCT 32.9 % (39.6-50.0); HGB 11.1 g/dL (13.0-17.0); Lymphocytes # (A) 0.47 X 10*3/uL (0.90-5.00); MCH 31.2 pg (27.0-32.0); MCHC 33.7 g/dL (32.0-37.0); MCV 92.4 fL (80.0-97.0); Mean Platelet Volume 11.8 fL (9.5-12.2); Monocytes # (A) 0.76 X 10*3/uL (0.20-1.00); Monocytes % (A) 4.9 %; Neutrophils # (A) 14.18 X 10*3/uL (1.80-7.70); Platelet Count 216 X 10*3/uL (140-440); RBC 3.56 X 10*6/uL (4.40-5.60); RDW 15.1 % (11.5-14.5); WBC 15.57 X 10*3/uL (4.50-10.00)
[2021-08-06 12:12] LABS: Glucose,Whole Blood 97 mg/dL (75-99)
--- NOTE | 2021-08-06 12:18 | P.PN ---
Subjective Progress Note Date: 08/06/21 HISTORY OF PRESENT ILLNESS: This is a 66-year-old male with a past medical history significant for coronary artery disease with previous PCI to diagonal branch and circumflex, paroxysmal atrial fibrillation on anticoagulation with Xarelto, sick sinus syndrome with previous pacemaker implantation, diabetes, chronic kidney disease, hypertension, hyperlipidemia, liver disease, diastolic heart failure, and former nicotine dependence. Patient follows in the office with Dr. Morgan. We have been asked to see the patient in consultation for dyspnea. Patient examined at the bedside. Patient was recently hospitalized secondary to shortness of breath. He was treated for possible pneumonia and discharged home with antibiotics. He states his shortness of breath has not improved. He also reports over the past couple days he has noticed increased lower extremity edema. Patient recently underwent thoracentesis on 07/30/2021 with removal of 350 mL. She had an echocardiogram completed in June 2021 revealing ejection fraction 55-60%. Mild aortic stenosis. Mild mitral regurgitation. Mild tricuspid regurgitation. Patient underwent CT of the chest in June 2021 with findings worrisome for bronchogenic carcinoma left upper lobe per radiologist dictation. The patient states he was supposed to have a PET scan completed tomorrow. The patient was found to be in acute heart failure when he presented to the hospital. He was started on IV Lasix. Patient states his shortness of breath has improved today. He also reports improvement in his lower extremity edema. The patient does report having a mild nosebleed since coming to the hospital. He also reports having some blood when he has blown his nose over the past week. EKG reveals sinus mechanism with nonspecific ST-T wave changes Chest xray bilateral infiltrates with small bilateral pleural effusions Laboratory data: WBC 10.84. Hemoglobin 10.8. Platelet count 190. Sodium 133. Potassium 4.0. BUN 52. Creatinine 2.2. Troponin 0.043. ProBNP 6320. Current home cardiac medications include hydralazine 100 mg 3 times a day, Cardizem 90 mg twice a day, Xarelto 15 mg daily, pravastatin 20 g daily, metoprolol tartrate 50 g twice a day, Imdur 30 mg daily, Lasix 40 mg twice a day, flecainide 50 mg every 12 hours 08-06-2021 Patient examined this morning at the bedside. He denies chest pain or pressure. Reports improvement in his shortness of breath. Pulmonary discontinued Xarelto secondary to nosebleeds. PHYSICAL EXAM: VITAL SIGNS: Reviewed. GENERAL: Well-developed in no acute distress. HEENT: Head is normocephalic. Pupils are equal, round. Sclerae anicteric. Mucous membranes of the mouth are moist. Neck supple. No JVD or thyromegaly LUNGS: Respirations even and unlabored. Lungs diminished, right greater than left HEART: Regular rate and rhythm. S1 and S2 heard. ABDOMEN: Soft. Nondistended. Nontender. EXTREMITIES: Normal range of motion. No clubbing or cyanosis. Peripheral pulses intact. Trace bilateral lower extremity edema NEUROLOGIC: Awake and alert. Oriented x 3. ASSESSMENT: Shortness of breath Abnormal CT chest, concerning for malignancy Acute exacerbation of chronic diastolic heart failure, ejection fraction 55-60% Paroxysmal atrial fibrillation, on anticoagulation with Xarelto, currently on hold Coronary artery disease with previous PCI to diagonal branch and circumflex Sick sinus syndrome with previous pacemaker implantation Chronic kidney disease Hypertension Hyperlipidemia Diabetes mellitus Former nicotine dependence PLAN: Xarelto on hold per pulmonary due to nosebleed Will add Aldactone 12.5mg daily. Monitor potassium. Continue IV lasix. Anticipate transition to oral dosing tomorrow. Will increase oral dosing to 60mg in the AM and 40mg in the afternoon. Monitor kidney function Accurate I&O Daily weights Further recommendations pending patient course Nurse practitioner note has been reviewed by physician. Signing provider agrees with the documented findings, assessment, and plan of care. Objective - Vital Signs Vital signs: Vital Signs Temp 98.0 F 08/06/21 07:00 Pulse 77 08/06/21 08:46 Resp 16 08/06/21 08:46 BP 151/69 08/06/21 07:00 Pulse Ox 95 08/06/21 08:36 Intake & Output 08/05/21 08/06/21 08/06/21 18:59 06:59 18:59 Output Total 450 1150 Balance -450 -1150 Weight 86 kg Output: Urine 450 1150 Other: # Voids 2 4 # Bowel Movements 1 - Labs CBC & Chem 7: 08/06/21 07:35 08/05/21 06:07 Labs: Abnormal Lab Results - Last 24 Hours (Table) 08/05/21 08/05/21 08/06/21 Range/Units 16:09 20:46 07:19 WBC (4.50-10.00) X 10*3/uL RBC (4.40-5.60) X 10*6/uL Hgb (13.0-17.0) g/dL Hct (39.6-50.0) % RDW (11.5-14.5) % Immature Gran # (0.00-0.04) X 10*3/uL Neutrophils # (1.80-7.70) X 10*3/uL Lymphocytes # (0.90-5.00) X 10*3/uL Eosinophils # (0.04-0.35) X 10*3/uL POC Glucose (mg/dL) 157 H 158 H 151 H (75-99) mg/dL 08/06/21 Range/Units 07:35 WBC 15.57 H (4.50-10.00) X 10*3/uL RBC 3.56 L (4.40-5.60) X 10*6/uL Hgb 11.1 L (13.0-17.0) g/dL Hct 32.9 L (39.6-50.0) % RDW 15.1 H (11.5-14.5) % Immature Gran # 0.14 H (0.00-0.04) X 10*3/uL Neutrophils # 14.18 H (1.80-7.70) X 10*3/uL Lymphocytes # 0.47 L (0.90-5.00) X 10*3/uL Eosinophils # 0.01 L (0.04-0.35) X 10*3/uL POC Glucose (mg/dL) (75-99) mg/dL Microbiology - Last 24 Hours (Table) 08/04/21 08:33 Blood Culture - Preliminary Blood No Growth after 48 hours 08/04/21 08:33 Blood Culture - Preliminary Blood No Growth after 48 hours
--- NOTE | 2021-08-06 14:17 | P.PN ---
Subjective Progress Note Date: 08/06/21 Patient is a 66-year-old male with a known history of COPD on home oxygen, recent lung mass on CT chest on follow up with pulmonary, persistent atrial fibrillation on anticoagulation with xarelto, sick sinus syndrome with history of permanent pacemaker placement, coronary artery disease history of stent placement to circumflex, diabetes type 2 insulin-dependent, hypertension, hyperlipidemia, chronic CHF with diastolic dysfunction and previous history of smoking and alcohol use presents to ER with complaints of worsening shortness of breath. Patient was recently admitted to the hospital due to CHF and COPD exacerbation and was discharged on 08/16/2021. Underwent right thoracentesis on 07/30/2021. Patient says that he has been having postnasal drip and cough with clear to light yellowish sputum production along blood-tinged sputum. Denied any blood clots. Denied any fever or chills. Patient is also complaining of worsening leg swelling. No compressive chest pain. No headache or dizziness or lightheadedness. Patient has been using oxygen at home. On admission were pressure was 174/86, pulse 70 this was 19 pulse ox 90% on 4 L oxygen. Afebrile. Laboratory data showed WBC 14.2, hemoglobin 12.8 and platelets 205 Sodium 128 potassium 3.9, bicarb 28, BUN 14 and creatinine 1.69 Bilirubin 1.8, AST 53 ALT 91 and alk phos 171, troponin 0.043, proBNP 6320 Chest x-ray showed bilateral infiltrate with small bilateral effusions appears to be stable. 08/05/2021 Patient is seen and evaluated in follow-up this morning continues to be on 4 L of oxygen up and walking around the room with no worsening shortness of breath. Pulmonary and cardiology following closely. Patient will sugars have been elevated and normally maintained on pre-meal insulin along with sliding scale and long-acting and will increase the dose of pre-meal and long-acting and monitor closely. Patient continues on IV Lasix 40 mg twice daily and is diuresing well. Antibiotics and steroids have been discontinued. Patient normally on Xarelto for persistent atrial fibrillation which was on hold for continued epistaxis and will be resumed today and monitor closely for any signs of bleeding. Blood count is 10.84 with a hemoglobin of 10.8, sodium is 133 with a potassium of 4.0 current BUN is 52 with a creatinine of 2.2 and blood sugars have been upwards of 300 to 400s. 08/06/2021 Patient is seen in follow-up this morning sitting up in the chair with pulmonary and cardiology following. Patient continues on oxygen via nasal cannula at 2 L. Patient also continues on IV Lasix with cardiology following closely with possibility of transition to oral Lasix tomorrow. Patient states his breathing is improved along with his lower extremity swelling. BMP from today is pending. Patient underwent chest x-ray today showing multifocal infiltrates with small right effusion that is stable. White blood count elevated at 15.57 with a hemoglobin of 11.1. Patient was on IV steroids on admission which have been discontinued. Patient continues on breathing inhalational treatments as well. Xarelto will be held as patient was having some light nosebleed and blood-tinged sputum which has been ongoing patient states. Patient being started on low-dose Aldactone. Blood sugars were elevated yesterday with increase in long-acting along with pre-meal and to continue with sliding scale although blood sugars are much lower today and insulins have been held. Will discontinue pre-meal insulin and continue with sliding scale and long-acting and monitor closely with Accu- Cheks before meals and at bedtime Review of systems: Constitutional: No reports of fatigue, fever, or chills Cardiovascular: No reports of chest pain or palpitations Respiratory: No reports of worsening shortness of breath or cough, feels less short of breath today GI: No reports of nausea, vomiting, or diarrhea : No reports of dysuria or retention Neurovascular: No reports of weakness or numbness All medications have been reviewed Active Medications Albuterol/Ipratropium (Ipratropium-Albuterol 3 Ml Neb) 3 ml INHALATION RT-QID [facility] Last Admin: 08/06/21 11:50 Dose: 3 ml Documented by: Albuterol/Ipratropium (Ipratropium-Albuterol 3 Ml Neb) 3 ml INHALATION RT-Q4H PRN PRN Reason: Shortness Of Breath Or Wheezing Allopurinol (Allopurinol 100 Mg Tab) 100 mg PO BID [facility] Last Admin: 08/06/21 07:49 Dose: 100 mg Documented by: Budesonide/Formoterol Fumarate (Symbicort 160-4.5 Mcg Inhaler) 2 puff INHALATION RT-BID [facility] Last Admin: 08/06/21 08:35 Dose: 2 puff Documented by: Cholecalciferol (Cholecalciferol 25 Mcg (1000 Iu) Tablet) 75 mcg PO PC-BRKFST [facility] Last Admin: 08/06/21 07:49 Dose: 75 mcg Documented by: Diltiazem HCl (Diltiazem Oral 30 Mg Tab) 90 mg PO BID [facility] Last Admin: 08/06/21 07:48 Dose: 90 mg Documented by: Flecainide Acetate (Flecainide 50 Mg Tab) 50 mg PO BID [facility] Last Admin: 08/06/21 07:48 Dose: 50 mg Documented by: Furosemide (Furosemide 10 Mg/Ml 4 Ml Vial) 40 mg IV Q12HR [facility] Last Admin: 08/06/21 07:48 Dose: 40 mg Documented by: Hydralazine HCl (Hydralazine Hcl 50 Mg Tab) 100 mg PO TID [facility] Last Admin: 08/06/21 07:48 Dose: 100 mg Documented by: Insulin Aspart (Insulin Aspart (Novolog) 100 Unit/Ml Vial) 0 unit SQ [facility]; Protocol Last Admin: 08/06/21 12:25 Dose: Not Given Documented by: Insulin Aspart (Insulin Aspart (Novolog) 100 Unit/Ml Vial) 15 unit SQ AC-TID [facility] Last Admin: 08/06/21 12:26 Dose: Not Given Documented by: Insulin Detemir (Insulin Detemir (Levemir) 100 Unit/Ml Syr) [address] [facility] Last Admin: 08/05/21 20:57 Dose: 60 unit Documented by: Isosorbide Mononitrate (Isosorbide Mononitrate Er 30 Mg Tab.Er.24h) 30 mg PO DAILY [facility] Last Admin: 08/06/21 07:49 Dose: 30 mg Documented by: Lactobacillus Acidoph/Bulgaricus (Lactobacillus Acidoph & Bulgar 1 Each Packet) 1 each PO DAILY [facility] Last Admin: 08/06/21 07:49 Dose: 1 each Documented by: Metoprolol Tartrate (Metoprolol Tartrate 50 Mg Tab) 50 mg PO BID [facility] Last Admin: 08/06/21 07:48 Dose: 50 mg Documented by: Montelukast Sodium (Montelukast 10 Mg Tab) [address] [facility] Last Admin: 08/05/21 20:58 Dose: 10 mg Documented by: Pantoprazole Sodium (Pantoprazole 40 Mg Tablet) 40 mg PO DAILY@0730 [facility] Last Admin: 08/06/21 07:48 Dose: 40 mg Documented by: Pravastatin Sodium (Pravastatin Sodium 20 Mg Tab) 20 mg PO DAILY [facility] Last Admin: 08/06/21 07:48 Dose: 20 mg Documented by: Spironolactone (Spironolactone 25 Mg Tab) 12.5 mg PO DAILY [facility] Temazepam (Temazepam 15 Mg Cap) 15 mg PO HS PRN PRN Reason: Insomnia Last Admin: 08/05/21 22:01 Dose: 15 mg Documented by: Objective - Vital Signs Vital signs: Vital Signs Temp 98.0 F 08/06/21 07:00 Pulse 77 08/06/21 08:46 Resp 16 08/06/21 08:46 BP 151/69 08/06/21 07:00 Pulse Ox 95 08/06/21 08:36 Intake & Output 08/05/21 08/06/21 08/06/21 18:59 06:59 18:59 Output Total 450 850 Balance -450 -850 Weight 86 kg Output: Urine 450 850 Other: # Voids 2 4 # Bowel Movements 1 - Exam Patient is sitting up in the chair comfortably, no acute distress, awake alert and oriented.. HEENT: Normocephalic. Neck is supple. Pupils reactive. Nostrils clear. Oral cavity is moist. Neck reveals no JVD, carotid bruits, or thyromegaly. CHEST EXAMINATION: Trachea is central. Symmetrical expansion. Bilateral diminished air entry and scattered rhonchi. Nonlabored breathing.. CARDIAC: Normal S1, S2 with no gallops. No murmurs ABDOMEN: Soft. Bowel sounds normal. No organomegaly. No abdominal bruits. Extremities: No edema. No clubbing or cyanosis, significant improvement in lower extremity edema noted Neurologically awake, alert, oriented x3 with well-coordinated movements. No focal deficits noted Skin: No rash or skin lesions. Psychiatric: Cooperative. Non-suicidal Musculoskeletal: No joint swelling or deformity. Normal range of motion. - Labs CBC & Chem 7: 08/06/21 07:35 08/05/21 06:07 Labs: Abnormal Lab Results - Last 24 Hours (Table) 08/05/21 08/05/21 08/05/21 Range/Units 06:07 06:07 11:18 WBC 10.84 H (4.50-10.00) X 10*3/uL RBC 3.53 L (4.40-5.60) X 10*6/uL Hgb 10.8 L (13.0-17.0) g/dL Hct 32.6 L (39.6-50.0) % RDW 14.9 H (11.5-14.5) % Immature Gran # 0.12 H (0.00-0.04) X 10*3/uL Neutrophils # 10.03 H (1.80-7.70) X 10*3/uL Lymphocytes # 0.33 L (0.90-5.00) X 10*3/uL Eosinophils # 0 L (0.04-0.35) X 10*3/uL Sodium 133 L (135-145) mmol/L Chloride 93 L (96-109) mmol/L BUN 52.0 H (9.0-27.0) mg/dL Creatinine 2.2 H (0.6-1.5) mg/dL Est GFR (CKD-EPI)AfAm 34.9 L (60.0-200.0) Est GFR (CKD-EPI)NonAf 30.1 L (60.0-200.0) BUN/Creatinine Ratio 23.64 H (12.00-20.00) Ratio Glucose 382 H (70-110) mg/dL POC Glucose (mg/dL) 407 H (75-99) mg/dL Calcium 8.6 L (8.7-10.3) mg/dL 08/05/21 08/05/21 08/06/21 Range/Units 16:09 20:46 07:19 WBC (4.50-10.00) X 10*3/uL RBC (4.40-5.60) X 10*6/uL Hgb (13.0-17.0) g/dL Hct (39.6-50.0) % RDW (11.5-14.5) % Immature Gran # (0.00-0.04) X 10*3/uL Neutrophils # (1.80-7.70) X 10*3/uL Lymphocytes # (0.90-5.00) X 10*3/uL Eosinophils # (0.04-0.35) X 10*3/uL Sodium (135-145) mmol/L Chloride (96-109) mmol/L BUN (9.0-27.0) mg/dL Creatinine (0.6-1.5) mg/dL Est GFR (CKD-EPI)AfAm (60.0-200.0) Est GFR (CKD-EPI)NonAf (60.0-200.0) BUN/Creatinine Ratio (12.00-20.00) Ratio Glucose (70-110) mg/dL POC Glucose (mg/dL) 157 H 158 H 151 H (75-99) mg/dL Calcium (8.7-10.3) mg/dL Microbiology - Last 24 Hours (Table) 08/04/21 08:33 Blood Culture - Preliminary Blood No Growth after 24 hours 08/04/21 08:33 Blood Culture - Preliminary Blood No Growth after 24 hours Assessment and Plan Assessment: Worsening shortness of breath secondary to acute COPD exacerbation Acute on chronic CHF with diastolic dysfunction Recently diagnosed lung mass. Supposed to follow with pulmonary clinic. Scheduled for outpatient PET scan on 08/06/2021 Hyperglycemia with uncontrolled diabetes type 2 Elevated troponin level unlikely ACS. Hyponatremia likely hypervolemic. Possible SIADH cannot be excluded. Bilateral small pleural effusions with recent history of right thoracentesis Chronic postnasal drip Persistent atrial fibrillation on iron tablets with xarelto which is on hold for persistent nosebleeds Sick sinus syndrome with history of permanent pacemaker placement coronary artery disease history of stent placement to circumflex Hypertension Hyperlipidemia Chronic hypoxic respiratory failure secondary to COPD Previous history of smoking History of liver cirrhosis DVT prophylaxis Full code Plan: Continue with oxygen supplementation. Pulmonary and cardiology following closely and discussed resuming Xarelto although patient refused as he continues to have frequent nosebleeds and blood-tinged sputum noted. Patient continues on IV Lasix 40 mg twice daily and diuresing well with improvement in breathing and lower extremity swelling. Patient blood sugars much lower today in the 100s and will discontinue pre-meal insulin and continue with sliding scale and his long- acting at night with continued Accu-Cheks before meals and at bedtime and as needed. Repeat labs pending from today and will follow-up. Patient was scheduled outpatient for a PET scan for his recently diagnosed lung mass today and will need to be rescheduled for the outpatient setting. Due to multiple complex medical issues, prognosis is guarded. Further recommendations to follow based on the clinical course of the patient.
[2021-08-06 16:36] LABS: Glucose,Whole Blood 276 mg/dL (75-99)
--- NOTE | 2021-08-06 16:45 | P.PN ---
Subjective Progress Note Date: 08/06/21 Principal diagnosis: Shortness of breath This is a 66-year-old male patient who came back to the emergency because of worsening shortness of breath, orthopnea, increase in lower extremity edema. The patient was hospitalized last week for worsening shortness of breath. The patient was given antibiotics with Levaquin. Pro-calcitonin level was nonelevated. The patient also had a right-sided pleural effusion and it was drained and the fluid itself shirt turner to be a candidate with a low LDH and protein. This was consistent with CHF. The fluid cytology was negative. Never theless, the chest x-ray remained abnormal. The patient continued to have persistent infiltration the left perihilar area and some in the right upper lobe. He was discharged home on Levaquin. He was supposed to have an outpatient PET scan to further investigate a masslike consolidation in the left perihilar area. This has not been done yet. His current chest x-ray showing bilateral infiltrates and small effusions that are essentially stable. The blood work is showing WBC count of 14.2. Correlation profile is normal. Sodium level is at 128. Creatinine level is at 1.69 which is improved. Troponins of 0.04. ProBNP level is 6320. COVID-19 testing is been negative. The patient is currently on IV Lasix. He is known to have CAD, previous history approximately atrial fibrillation has been maintained on Xarelto on outpatient basis and the patient has chronic stage III kidney disease, congestion heart failure diastolic failure, diabetes mellitus, hypertension, hyperlipidemia and chronic liver disease in the form of the liver cirrhosis. He on and off, he continues to drink beer socially. As part of previous workup workup, CAT scan of the chest abdomen and pelvis was done on 07/25/2021. This was done without contrast. The CAT scan showed a left upper lobe nodular density with some peripheral soft tissue extension into the pleural margin. This is a irregular soft tissue d ensity extending proximally into the left hilum. There is also small left-sided pleural effusion. There is also evidence of subpleural noted that the on the left. There is background COPD. No clear mediastinal lymphadenopathy although suspected left hilar lymphadenopathy, hard to characterize because of absence of contrast. His liver has no other contour consistent with previous alcoholism. He is postcholecystectomy. CAT scan of the abdomen shows no abnormalities. Pancreas is normal. Spleen is normal. Bowels are within normal limits. The patient is currently on 4 L of oxygen by nasal cannula with a pulse ox of 93%. The echocardiogram from previous admission showed a EF around 55-60%, mild MR, mild TR, no evidence of any pulmonary pretension. July 2001 patient seen in follow-up on medical surgical floor. He was started on IV Lasix 40 mg twice daily, he is in -1.1 L fluid balance over the last 24 hours, he is breathing easier, lower extremity edema is improving, follow-up chest x-rays today was reviewed, showing some improvement in aeration although the radiologist felt that the bilateral infiltrates were stable in appearance. Xarelto remains on hold, at times patient still bringing up some blood-tinged sputum. Hemoglobin today is 10.8, white blood cell count is 10.8, platelet count is 190, sodium is 133, potassium is 4.0, chloride is 93, BUN is 52, creatinine is up slightly from yesterday in is at 2.2 on today's labs. We'll stop the Levaquin yesterday. His had no fever or chills. He is ambulating in the room tolerating activity well. Objective - Vital Signs Vital signs: Vital Signs Temp 97.5 F L 08/06/21 15:00 Pulse 70 08/06/21 16:30 Resp 18 08/06/21 15:00 BP 134/52 08/06/21 15:00 Pulse Ox 94 L 08/06/21 15:00 Intake & Output 08/05/21 08/06/21 08/06/21 18:59 06:59 18:59 Output Total 450 1150 Balance -450 -1150 Weight 86 kg Output: Urine 450 1150 Other: # Voids 2 4 # Bowel Movements 1 - Exam GENERAL EXAM: Alert, very pleasant, 66-year-old white male, on 2 L of oxygen and pulse ox of 94% comfortable in no apparent distress. HEAD: Normocephalic/atraumatic. EYES: Normal reaction of pupils, equal size. Conjunctiva pink, sclera white. NOSE: Clear with pink turbinates. THROAT: No erythema or exudates. NECK: No masses, no JVD, no thyroid enlargement, no adenopathy. CHEST: No chest wall deformity. Symmetrical expansion. LUNGS: Equal air entry with diminished breath sounds and mild crackles at the bases CVS: Regular rate and rhythm, normal S1 and S2, no gallops, no murmurs, no rubs ABDOMEN: Soft, nontender. No hepatosplenomegaly, normal bowel sounds, no guarding or rigidity. EXTREMITIES: No clubbing, trace pretibial edema, no cyanosis, 2+ pulses and upper and lower extremities. MUSCULOSKELETAL: Muscle strength and tone normal. SPINE: No scoliosis or deformity SKIN: No rashes CENTRAL NERVOUS SYSTEM: Alert and oriented -3. No focal deficits, tone is normal in all 4 extremities. PSYCHIATRIC: Alert and oriented -3. Appropriate affect. Intact judgment and insight. - Labs CBC & Chem 7: 08/06/21 07:35 08/05/21 06:07 Labs: Abnormal Lab Results - Last 24 Hours (Table) 08/05/21 08/06/21 08/06/21 Range/Units 20:46 07:19 07:35 WBC 15.57 H (4.50-10.00) X 10*3/uL RBC 3.56 L (4.40-5.60) X 10*6/uL Hgb 11.1 L (13.0-17.0) g/dL Hct 32.9 L (39.6-50.0) % RDW 15.1 H (11.5-14.5) % Immature Gran # 0.14 H (0.00-0.04) X 10*3/uL Neutrophils # 14.18 H (1.80-7.70) X 10*3/uL Lymphocytes # 0.47 L (0.90-5.00) X 10*3/uL Eosinophils # 0.01 L (0.04-0.35) X 10*3/uL POC Glucose (mg/dL) 158 H 151 H (75-99) mg/dL 08/06/21 Range/Units 16:35 WBC (4.50-10.00) X 10*3/uL RBC (4.40-5.60) X 10*6/uL Hgb (13.0-17.0) g/dL Hct (39.6-50.0) % RDW (11.5-14.5) % Immature Gran # (0.00-0.04) X 10*3/uL Neutrophils # (1.80-7.70) X 10*3/uL Lymphocytes # (0.90-5.00) X 10*3/uL Eosinophils # (0.04-0.35) X 10*3/uL POC Glucose (mg/dL) 276 H (75-99) mg/dL Microbiology - Last 24 Hours (Table) 08/04/21 08:33 Blood Culture - Preliminary Blood No Growth after 48 hours 08/04/21 08:33 Blood Culture - Preliminary Blood No Growth after 48 hours Assessment and Plan Plan: Assessment: #1. acute hypoxic respiratory failure with development of bilateral pulmonary infiltrates and the right-sided pleural effusion that was drained recently and this shirt turner to be a transudate. The patient is coming in with fluid overload and increase in lower extremity edema. He has chronic kidney disease. ProBNP level is elevated. He is also noted to have hyponatremia. At the same time, he was treated with antibiotics during the earlier admission which resulted in no improvement in his condition. He is coming in with worsening shortness of breath. There was a concern for malignancy in this patient. Noted a previous CAT scan of the chest abdomen and pelvis that was done showed finding which suggested a lung mass and this is a nodular irregular lesion and the left upper lobe extending to the pleural surface and sensory to the hilum. The pleural surface itself is irregular and nodular. There is suspicion for malignancy. There is also suspicion for a left hilar lymphadenopathy. This needs to be fur ther investigated. This was absent on a previous CAT scan done in 2019 and obviously this is a new finding. The patient's CAT scan was done without contrast. Since then, the patient was hospitalized and treated with antibiotics without any improvement. #2. nonspecific abdominal pain and distention with negative workup at least on a CAT scan of the abdomen. There is some liver dysfunction related to chronic liver disease. #3. coronary artery disease with previous coronary intervention and stenting #4. chronic kidney disease, stage III secondary to diabetic nephropathy #5. COPD which is currently inactive in stable #6. chronic right hemidiaphragmatic elevation/paralysis #7. paroxysmal atrial fibrillation current rhythm is paced and the patient is demented on long-term medical condition with Xarelto #8. history of tachybradycardia syndrome past pacemaker insertion #9. hypertensive heart disease with LV concentric hypertrophy #10. diabetes mellitus #11. hypertension #12. hyperlipidemia #13. osteoarthritis with previous history of herniated disc involving lower back #14. episodic epistaxis, had a ENT evaluation outpatient basis Plan: Breathing stable, possibly improved No fever or chills Minimal cough, Vital signs have been stable Overall he is breathing easier as a result of diuretics Continue steroids, continue nebulized bronchodilators Follow-up BMP in the morning, progesterone, sputum sample His PET scan has been scheduled to a later date on 08/18/2021 We'll continue to follow his progress I performed a history & physical examination of the patient and discussed their management with my nurse practitioner, Jojo Langford. I reviewed the nurse practitioner's note and agree with the documented findings and plan of care. Lung sounds are positive for diminished breath sounds throughout the lung tobias. The findings and the impression was discussed with the patient. I attest to the documentation by the nurse practitioner. Time with Patient: Less than 30
[2021-08-06 20:31] LABS: Glucose,Whole Blood 276 mg/dL (75-99)
[2021-08-06] MEDS: MONTELUKAST 10 MG TAB PO SCH (20:47)
[2021-08-06] MEDS: INSULIN DETEMIR (LEVEMIR) 100 UNIT/ML SYR SQ SCH (20:58)
[2021-08-06 21:49] LABS: African American GFR (CKD) 33.1 (60.0-200.0); Anion Gap 14.7 mmol/L (4.00-12.00); Calcium 8.7 mg/dL (8.7-10.3); Carbon Dioxide 27.3 mmol/L (21.6-31.8); Non-African American GFR(CKD) 28.5 (60.0-200.0); Potassium 3.7 mmol/L (3.5-5.5)
[2021-08-06] MEDS: TEMAZEPAM 15 MG CAP PO PRN (22:19)
[2021-08-07 06:49] LABS: Basophils % (A) 0 %; Eosinophils % (A) 0 %; HCT 36.1 % (39.0-53.0); HGB 12.2 gm/dL (13.0-17.5); Lymphocytes # (A) 0.6 k/uL (1.0-4.8); Lymphocytes % (A) 4 %; MCH 32.1 pg (25.0-35.0); MCHC 33.7 g/dL (31.0-37.0); MCV 95.4 fL (80.0-100.0); Mean Platelet Volume 9.2; Monocytes # (A) 0.7 k/uL (0-1.0); Monocytes % (A) 5 %; Neutrophils # (A) 13.3 k/uL (1.3-7.7); Neutrophils % (A) 91 %; Platelet Count 216 k/uL (150-450); RBC 3.78 m/uL (4.30-5.90); RDW 14.6 % (11.5-15.5); WBC 14.6 k/uL (3.8-10.6)
[2021-08-07 07:07] LABS: Glucose,Whole Blood 137 mg/dL (75-99)
[2021-08-07 07:10] LABS: African American GFR (CKD) 42 (>60 ml/min/1.73 sqM); Anion Gap 8 mmol/L; Blood Urea Nitrogen 69 mg/dL (9-20); Calcium 9.1 mg/dL (8.4-10.2); Carbon Dioxide 32 mmol/L (22-30); Chloride 95 mmol/L (98-107); Glucose 155 mg/dL (74-99); Non-African American GFR(CKD) 36 (>60 ml/min/1.73 sqM); Potassium 3.8 mmol/L (3.5-5.1); Sodium 135 mmol/L (137-145)
[2021-08-07] MEDS: INSULIN ASPART (NovoLOG) 100 UNIT/ML VIAL SQ SCH ×4 (07:27→21:36)
[2021-08-07] MEDS: LACTOBACILLUS ACIDOPH & BULGAR 1 EACH PACKET PO SCH (07:27)
[2021-08-07] MEDS: PRAVASTATIN SODIUM 20 MG TAB PO SCH (07:28)
[2021-08-07] MEDS: hydrALAZINE HCL 50 MG TAB PO SCH ×3 (07:28→21:33)
[2021-08-07] MEDS: CHOLECALCIFEROL 25 MCG (1000 IU) TABLET PO SCH (07:28)
[2021-08-07] MEDS: DILTIAZEM ORAL 30 MG TAB PO SCH ×2 (07:28→22:31)
[2021-08-07] MEDS: ISOSORBIDE MONONITRATE ER 30 MG TAB.ER.24H PO SCH (07:29)
[2021-08-07] MEDS: METOPROLOL TARTRATE 50 MG TAB PO SCH ×2 (07:29→21:33)
[2021-08-07] MEDS: PANTOPRAZOLE 40 MG TABLET PO SCH (07:29)
[2021-08-07] MEDS: SPIRONOLACTONE 25 MG TAB PO SCH (07:29)
[2021-08-07] MEDS: FLECAINIDE 50 MG TAB PO SCH ×2 (07:29→21:33)
[2021-08-07] MEDS: allopurinoL 100 MG TAB PO SCH ×2 (07:29→21:33)
[2021-08-07] MEDS: FUROSEMIDE 10 MG/ML 4 ML VIAL IV SCH ×2 (07:30→21:33)
[2021-08-07] MEDS: SYMBICORT 160-4.5 MCG INHALER INHALATION SCH ×2 (07:46→18:47)
[2021-08-07] MEDS: IPRATROPIUM-ALBUTEROL 3 ML NEB INHALATION SCH ×4 (07:46→18:47)
[2021-08-07 11:21] LABS: Glucose,Whole Blood 261 mg/dL (75-99)
--- NOTE | 2021-08-07 12:16 | P.PN ---
Subjective Progress Note Date: 08/07/21 Principal diagnosis: Shortness of breath This is a 66-year-old male patient who came back to the emergency because of worsening shortness of breath, orthopnea, increase in lower extremity edema. The patient was hospitalized last week for worsening shortness of breath. The patient was given antibiotics with Levaquin. Pro-calcitonin level was nonelevated. The patient also had a right-sided pleural effusion and it was drained and the fluid itself return to vendor to be a candidate with a low LDH and protein. This was consistent with CHF. The fluid cytology was negative. Never theless, the chest x-ray remained abnormal. The patient continued to have persistent infiltration the left perihilar area and some in the right upper lobe. He was discharged home on Levaquin. He was supposed to have an outpatient PET scan to further investigate a masslike consolidation in the left perihilar area. This has not been done yet. His current chest x-ray showing bilateral infiltrates and small effusions that are essentially stable. The blood work is showing WBC count of 14.2. Correlation profile is normal. Sodium level is at 128. Creatinine level is at 1.69 which is improved. Troponins of 0.04. ProBNP level is 6320. COVID-19 testing is been negative. The patient is currently on IV Lasix. He is known to have CAD, previous history approximately atrial fibrillation has been maintained on Xarelto on outpatient basis and the patient has chronic stage III kidney disease, congestion heart failure diastolic failure, diabetes mellitus, hypertension, hyperlipidemia and chronic liver disease in the form of the liver cirrhosis. He on and off, he continues to drink beer socially. As part of previous workup workup, CAT scan of the chest abdomen and pelvis was done on 07/25/2021. This was done without contrast. The CAT scan showed a left upper lobe nodular density with some peripheral soft tissue extension into the pleural margin. This is a irregular soft tissue d ensity extending proximally into the left hilum. There is also small left-sided pleural effusion. There is also evidence of subpleural noted that the on the left. There is background COPD. No clear mediastinal lymphadenopathy although suspected left hilar lymphadenopathy, hard to characterize because of absence of contrast. His liver has no other contour consistent with previous alcoholism. He is postcholecystectomy. CAT scan of the abdomen shows no abnormalities. Pancreas is normal. Spleen is normal. Bowels are within normal limits. The patient is currently on 4 L of oxygen by nasal cannula with a pulse ox of 93%. The echocardiogram from previous admission showed a EF around 55-60%, mild MR, mild TR, no evidence of any pulmonary pretension. July 2001 patient seen in follow-up on medical surgical floor. He was started on IV Lasix 40 mg twice daily, he is in -1.1 L fluid balance over the last 24 hours, he is breathing easier, lower extremity edema is improving, follow-up chest x-rays today was reviewed, showing some improvement in aeration although the radiologist felt that the bilateral infiltrates were stable in appearance. Xarelto remains on hold, at times patient still bringing up some blood-tinged sputum. Hemoglobin today is 10.8, white blood cell count is 10.8, platelet count is 190, sodium is 133, potassium is 4.0, chloride is 93, BUN is 52, creatinine is up slightly from yesterday in is at 2.2 on today's labs. We'll stop the Levaquin yesterday. His had no fever or chills. He is ambulating in the room tolerating activity well. On today's evaluation in 08/07/2021 patient is seen in follow-up on medical surgical floor, he is breathing comfortably, she sits up in the chair, he continues on IV Lasix 40 mg every 12 hours, he is in -1150 ML negative fluid balance over the last 24 hours, he is currently on 3 L of oxygen pulse ox is 95%, his had no acute events overnight, today's labs have been reviewed, his white blood cell count is improving and is down to 14.6, hemoglobin is 12.2, sodium is 135, potassium 3.8, chloride is 95, CO2 32, BUN is 69, creatinine is improving and is down to 1.9 on today's labs. His pro-calcitonin level came ba ck at 2. Blood Cultures have shown no growth, sputum culture was sent showing rare white blood cells, rare epithelial cells, and rare gram-positive cocci, final culture is pending, no complaints of chest discomfort, no fever or chills. Objective - Vital Signs Vital signs: Vital Signs Temp 97.5 F L 08/07/21 07:00 Pulse 74 08/07/21 07:56 Resp 16 08/07/21 07:00 BP 157/75 08/07/21 07:00 Pulse Ox 95 08/07/21 07:00 Intake & Output 08/06/21 08/07/21 08/07/21 18:59 06:59 18:59 Output Total 5468 606 0743 Balance -1500 -650 -1150 Weight 85.5 kg Output: Urine 1731 196 9821 Other: Voiding Method Toilet Urinal - Exam GENERAL EXAM: Alert, very pleasant, 66-year-old white male, on 2 L of oxygen and pulse ox of 94% comfortable in no apparent distress. HEAD: Normocephalic/atraumatic. EYES: Normal reaction of pupils, equal size. Conjunctiva pink, sclera white. NOSE: Clear with pink turbinates. THROAT: No erythema or exudates. NECK: No masses, no JVD, no thyroid enlargement, no adenopathy. CHEST: No chest wall deformity. Symmetrical expansion. LUNGS: Equal air entry with diminished breath sounds and mild crackles at the bases CVS: Regular rate and rhythm, normal S1 and S2, no gallops, no murmurs, no rubs ABDOMEN: Soft, nontender. No hepatosplenomegaly, normal bowel sounds, no guarding or rigidity. EXTREMITIES: No clubbing, trace pretibial edema, no cyanosis, 2+ pulses and upper and lower extremities. MUSCULOSKELETAL: Muscle strength and tone normal. SPINE: No scoliosis or deformity SKIN: No rashes CENTRAL NERVOUS SYSTEM: Alert and oriented -3. No focal deficits, tone is normal in all 4 extremities. PSYCHIATRIC: Alert and oriented -3. Appropriate affect. Intact judgment and insight. - Labs CBC & Chem 7: 08/07/21 06:27 08/07/21 06:27 Labs: Abnormal Lab Results - Last 24 Hours (Table) 08/06/21 08/06/21 08/06/21 Range/Units 07:35 07:35 16:35 WBC (3.8-10.6) k/uL RBC (4.30-5.90) m/uL Hgb (13.0-17.5) gm/dL Hct (39.0-53.0) % Neutrophils # (1.3-7.7) k/uL Lymphocytes # (1.0-4.8) k/uL Sodium (137-145) mmol/L Chloride (98-107) mmol/L Carbon Dioxide (22-30) mmol/L Anion Gap 14.70 H (4.00-12.00) mmol/L BUN 69.0 H (9.0-27.0) mg/dL Creatinine 2.3 H (0.6-1.5) mg/dL Est GFR (CKD-EPI)AfAm 33.1 L (60.0-200.0) Est GFR (CKD-EPI)NonAf 28.5 L (60.0-200.0) BUN/Creatinine Ratio 30.00 H (12.00-20.00) Ratio Glucose 138 H (70-110) mg/dL POC Glucose (mg/dL) 276 H (75-99) mg/dL Procalcitonin 2.00 H (0.02-0.09) ng/mL 08/06/21 08/07/21 08/07/21 Range/Units 20:28 06:27 06:27 WBC 14.6 H (3.8-10.6) k/uL RBC 3.78 L (4.30-5.90) m/uL Hgb 12.2 L (13.0-17.5) gm/dL Hct 36.1 L (39.0-53.0) % Neutrophils # 13.3 H (1.3-7.7) k/uL Lymphocytes # 0.6 L (1.0-4.8) k/uL Sodium 135 L (137-145) mmol/L Chloride 95 L (98-107) mmol/L Carbon Dioxide 32 H (22-30) mmol/L Anion Gap (4.00-12.00) mmol/L BUN 69 H (9.0-27.0) mg/dL Creatinine 1.90 H (0.6-1.5) mg/dL Est GFR (CKD-EPI)AfAm (60.0-200.0) Est GFR (CKD-EPI)NonAf (60.0-200.0) BUN/Creatinine Ratio (12.00-20.00) Ratio Glucose 155 H (70-110) mg/dL POC Glucose (mg/dL) 276 H (75-99) mg/dL Procalcitonin (0.02-0.09) ng/mL 08/07/21 08/07/21 Range/Units 07:06 11:20 WBC (3.8-10.6) k/uL RBC (4.30-5.90) m/uL Hgb (13.0-17.5) gm/dL Hct (39.0-53.0) % Neutrophils # (1.3-7.7) k/uL Lymphocytes # (1.0-4.8) k/uL Sodium (137-145) mmol/L Chloride (98-107) mmol/L Carbon Dioxide (22-30) mmol/L Anion Gap (4.00-12.00) mmol/L BUN (9.0-27.0) mg/dL Creatinine (0.6-1.5) mg/dL Est GFR (CKD-EPI)AfAm (60.0-200.0) Est GFR (CKD-EPI)NonAf (60.0-200.0) BUN/Creatinine Ratio (12.00-20.00) Ratio Glucose (70-110) mg/dL POC Glucose (mg/dL) 137 H 261 H (75-99) mg/dL Procalcitonin (0.02-0.09) ng/mL Microbiology - Last 24 Hours (Table) 08/04/21 08:33 Blood Culture - Preliminary Blood No Growth after 72 hours 08/04/21 08:33 Blood Culture - Preliminary Blood No Growth after 72 hours 08/06/21 17:37 Gram Stain - Preliminary Sputum Sputum Culture - Preliminary Assessment and Plan Plan: Assessment: #1. acute hypoxic respiratory failure with development of bilateral pulmonary infiltrates and the right-sided pleural effusion that was drained recently and this return to vendor to be a transudate. The patient is coming in with fluid overload and increase in lower extremity edema. He has chronic kidney disease. ProBNP level is elevated. He is also noted to have hyponatremia. At the same time, he was treated with antibiotics during the earlier admission which resulted in no improvement in his condition. He is coming in with worsening shortness of breath. There was a concern for malignancy in this patient. Noted a previous CAT scan of the chest abdomen and pelvis that was done showed finding which suggested a lung mass and this is a nodular irregular lesion and the left upper lobe extending to the pleural surface and sensory to the hilum. The pleural surface itself is irregular and nodular. There is suspicion for malignancy. There is also suspicion for a left hilar lymphadenopathy. This needs to be further investigated. This was absent on a previous CAT scan done in 2019 and obviously this is a new finding. The patient's CAT scan was done without contrast. Since then, the patient was hospitalized and treated with antibiotics without any improvement. #2. nonspecific abdominal pain and distention with negative workup at least on a CAT scan of the abdomen. There is some liver dysfunction related to chronic liver disease. #3. coronary artery disease with previous coronary intervention and stenting #4. chronic kidney disease, stage III secondary to diabetic nephropathy #5. COPD which is currently inactive in stable #6. chronic right hemidiaphragmatic elevation/paralysis #7. paroxysmal atrial fibrillation current rhythm is paced and the patient is demented on long-term medical condition with Xarelto #8. history of tachybradycardia syndrome past pacemaker insertion #9. hypertensive heart disease with LV concentric hypertrophy #10. diabetes mellitus #11. hypertension #12. hyperlipidemia #13. osteoarthritis with previous history of herniated disc involving lower back #14. episodic epistaxis, had a ENT evaluation outpatient basis Plan: Stable overnight, no acute events, breathing easier, No fever or chills Minimal cough, Vital signs have been stable Overall he is breathing easier as a result of diuretics Continue steroids, continue nebulized bronchodilators Today's labs have been reviewed, pro-calcitonin level has been noted No fever or chills, occasional cough, minimal phlegm production From pulmonary perspective he stable for discharge home today on oral diuretics, no need for antibiotics or steroids Outpatient follow-up with Dr. Queen in the office in 7 days His PET scan has been scheduled to a later date on 08/18/2021 I performed a history & physical examination of the patient and discussed their management with my nurse practitioner, Jojo Langford. I reviewed the nurse practitioner's note and agree with the documented findings and plan of care. Lung sounds are positive for diminished breath sounds throughout the lung tobias. The findings and the impression was discussed with the patient. I attest to the documentation by the nurse practitioner. Time with Patient: Less than 30
[2021-08-07] MEDS ORDERED: SODIUM CHLORIDE 0.65% NASAL SPRAY 44 ML BTL NASAL PRN (12:21)
--- NOTE | 2021-08-07 13:41 | P.PN ---
Subjective Progress Note Date: 08/07/21 This is a 66-year-old male with a past medical history significant for coronary artery disease with previous PCI to diagonal branch and circumflex, paroxysmal atrial fibrillation on anticoagulation with Xarelto, sick sinus syndrome with previous pacemaker implantation, diabetes, chronic kidney disease, hypertension, hyperlipidemia, liver disease, diastolic heart failure, and former nicotine dep endence. Patient follows in the office with Dr. Morgan. Patient was recently hospitalized secondary shortness of breath and diagnosed and treated for possible pneumonia. He was discharged home with antibiotics. He continued to be short of breath and also noticed some abdominal bloating and lower extremity edema. His NT proBNP was elevated and he has been initiated on IV Lasix. He recently underwent thoracentesis on 07/30/2021 with removal of 350 ML's. Echocardiogram completed June 2021 revealed normal LV systolic function with an ejection fraction of 55-60% with mild AF, mild MR and mild TR. Computed tomography scan of the chest done at that time showed findings worrisome for bronchogenic carcinoma left upper lobe per radiologist's dictation. PET scan is told at a later date as an outpatient. Patient had developed some nose bleeds and anticoagulation is currently on hold. Overall he is feeling a bit better. He has been up ambulating without much difficulty. He continues to have lower extremity edema above and beyond his baseline. Renal function appears a bit better compared to yesterday with a BUN of 69 creatinine of 1.9. Currently on Lasix 40 mg IV push every 12 hours. Objective - Vital Signs Vital signs: Vital Signs Temp 97.5 F L 08/07/21 07:00 Pulse 98 08/07/21 12:56 Resp 16 08/07/21 07:00 BP 157/75 08/07/21 07:00 Pulse Ox 95 08/07/21 07:00 Intake & Output 08/06/21 08/07/21 08/07/21 18:59 06:59 18:59 Output Total 2528 454 8680 Balance -1500 -650 -1150 Weight 85.5 kg Output: Urine 5777 506 5390 Other: Voiding Method Toilet Urinal - Exam PHYSICAL EXAMINATION: HEENT: Head is atraumatic, normocephalic. Pupils equal, round. Neck is supple. There is no elevated jugular venous pressure. HEART EXAMINATION: Heart sounds regular, S1 and S2 normal. A soft systolic murmur. CHEST EXAMINATION: Lungs reveal diminished air entry bilaterally with faint right basilar crackles. No chest wall tenderness is noted on palpation or with deep breathing. ABDOMEN: Soft, nontender. Bowel sounds are heard. No organomegaly noted. EXTREMITIES: 2+ peripheral pulses with evidence of trace right lower extremity and 1-2+ left lower extremity edema with chronic skin changes. NEUROLOGIC patient is awake, alert and oriented x3. . - Labs CBC & Chem 7: 08/07/21 06:27 08/07/21 06:27 Labs: Abnormal Lab Results - Last 24 Hours (Table) 08/06/21 08/06/21 08/06/21 Range/Units 07:35 07:35 16:35 WBC (3.8-10.6) k/uL RBC (4.30-5.90) m/uL Hgb (13.0-17.5) gm/dL Hct (39.0-53.0) % Neutrophils # (1.3-7.7) k/uL Lymphocytes # (1.0-4.8) k/uL Sodium (137-145) mmol/L Chloride (98-107) mmol/L Carbon Dioxide (22-30) mmol/L Anion Gap 14.70 H (4.00-12.00) mmol/L BUN 69.0 H (9.0-27.0) mg/dL Creatinine 2.3 H (0.6-1.5) mg/dL Est GFR (CKD-EPI)AfAm 33.1 L (60.0-200.0) Est GFR (CKD-EPI)NonAf 28.5 L (60.0-200.0) BUN/Creatinine Ratio 30.00 H (12.00-20.00) Ratio Glucose 138 H (70-110) mg/dL POC Glucose (mg/dL) 276 H (75-99) mg/dL Procalcitonin 2.00 H (0.02-0.09) ng/mL 08/06/21 08/07/21 08/07/21 Range/Units 20:28 06:27 06:27 WBC 14.6 H (3.8-10.6) k/uL RBC 3.78 L (4.30-5.90) m/uL Hgb 12.2 L (13.0-17.5) gm/dL Hct 36.1 L (39.0-53.0) % Neutrophils # 13.3 H (1.3-7.7) k/uL Lymphocytes # 0.6 L (1.0-4.8) k/uL Sodium 135 L (137-145) mmol/L Chloride 95 L (98-107) mmol/L Carbon Dioxide 32 H (22-30) mmol/L Anion Gap (4.00-12.00) mmol/L BUN 69 H (9.0-27.0) mg/dL Creatinine 1.90 H (0.6-1.5) mg/dL Est GFR (CKD-EPI)AfAm (60.0-200.0) Est GFR (CKD-EPI)NonAf (60.0-200.0) BUN/Creatinine Ratio (12.00-20.00) Ratio Glucose 155 H (70-110) mg/dL POC Glucose (mg/dL) 276 H (75-99) mg/dL Procalcitonin (0.02-0.09) ng/mL 08/07/21 08/07/21 Range/Units 07:06 11:20 WBC (3.8-10.6) k/uL RBC (4.30-5.90) m/uL Hgb (13.0-17.5) gm/dL Hct (39.0-53.0) % Neutrophils # (1.3-7.7) k/uL Lymphocytes # (1.0-4.8) k/uL Sodium (137-145) mmol/L Chloride (98-107) mmol/L Carbon Dioxide (22-30) mmol/L Anion Gap (4.00-12.00) mmol/L BUN (9.0-27.0) mg/dL Creatinine (0.6-1.5) mg/dL Est GFR (CKD-EPI)AfAm (60.0-200.0) Est GFR (CKD-EPI)NonAf (60.0-200.0) BUN/Creatinine Ratio (12.00-20.00) Ratio Glucose (70-110) mg/dL POC Glucose (mg/dL) 137 H 261 H (75-99) mg/dL Procalcitonin (0.02-0.09) ng/mL Microbiology - Last 24 Hours (Table) 08/04/21 08:33 Blood Culture - Preliminary Blood No Growth after 72 hours 08/04/21 08:33 Blood Culture - Preliminary Blood No Growth after 72 hours 08/06/21 17:37 Gram Stain - Preliminary Sputum Sputum Culture - Preliminary Assessment and Plan Assessment: Acute exacerbation of chronic diastolic heart failure, ejection fraction 55-60% Abnormal CT chest, concerning for malignancy, PET scan pending Paroxysmal atrial fibrillation, on anticoagulation with Xarelto, currently on hold Coronary artery disease with previous PCI to diagonal branch and circumflex Sick sinus syndrome with previous pacemaker implantation Chronic kidney disease Hypertension Hyperlipidemia Diabetes mellitus Former nicotine dependence Epistaxis Plan: From turner in perspective medications reviewed and we will continue the same. We will likely switch the patient to oral Lasix tomorrow. We will check BMP and BNP tomorrow. Continue to monitor daily weights, intake and output as well as renal function and electrolytes. The patient was advised to set up evaluation as an outpatient with Dr. Bhardwaj. Will continue to follow the patient for further recommendations accordingly. ADVERTISING STRATEGIST note has been reviewed, I agree with a documented findings and plan of care. Patient was seen and examined.
[2021-08-07] MEDS: ASPIRIN 81 MG PO SCH (15:15)
[2021-08-07 16:42] LABS: Glucose,Whole Blood 166 mg/dL (75-99)
--- NOTE | 2021-08-07 17:45 | P.PN ---
Subjective Progress Note Date: 08/07/21 Principal diagnosis: Acute COPD exacerbation Acute on chronic CHF with diastolic dysfunction Patient is a 66-year-old male with a known history of COPD on home oxygen, recent lung mass on CT chest on follow up with pulmonary, persistent atrial fibrillation on anticoagulation with xarelto, sick sinus syndrome with history of permanent pacemaker placement, coronary artery disease history of stent placement to circumflex, diabetes type 2 insulin-dependent, hypertension, hyperlipidemia, chronic CHF with diastolic dysfunction and previous history of smoking and alcohol use presents to ER with complaints of worsening shortness of breath. Patient was recently admitted to the hospital due to CHF and COPD exacerbation and was discharged on 08/16/2021. Underwent right thoracentesis on 07/30/2021. Patient says that he has been having postnasal drip and cough with clear to light yellowish sputum production along blood-tinged sputum. Denied any blood clots. Denied any fever or chills. Patient is also complaining of worsening leg swelling. No compressive chest pain. No headache or dizziness or lightheadedness. Patient has been using oxygen at home. On admission were pressure was 174/86, pulse 70 this was 19 pulse ox 90% on 4 L oxygen. Afebrile. Laboratory data showed WBC 14.2, hemoglobin 12.8 and platelets 205 Sodium 128 potassium 3.9, bicarb 28, BUN 14 and creatinine 1.69 Bilirubin 1.8, AST 53 ALT 91 and alk phos 171, troponin 0.043, proBNP 6320 Chest x-ray showed bilateral infiltrate with small bilateral effusions appears to be stable. 08/05/2021 Patient is seen and evaluated in follow-up this morning continues to be on 4 L of oxygen up and walking around the room with no worsening shortness of breath. Pulmonary and cardiology following closely. Patient will sugars have been elevated and normally maintained on pre-meal insulin along with sliding scale and long-acting and will increase the dose of pre-meal and long-acting and monitor closely. Patient continues on IV Lasix 40 mg twice daily and is diuresing well. Antibiotics and steroids have been discontinued. Patient normally on Xarelto for persistent atrial fibrillation which was on hold for continued epistaxis and will be resumed today and monitor closely for any signs of bleeding. Blood count is 10.84 with a hemoglobin of 10.8, sodium is 133 with a potassium of 4.0 current BUN is 52 with a creatinine of 2.2 and blood sugars have been upwards of 300 to 400s. 08/06/2021 Patient is seen in follow-up this morning sitting up in the chair with pulmonary and cardiology following. Patient continues on oxygen via nasal cannula at 2 L. Patient also continues on IV Lasix with cardiology following closely with possibility of transition to oral Lasix tomorrow. Patient states his breathing is improved along with his lower extremity swelling. BMP from today is pending. Patient underwent chest x-ray today showing multifocal infiltrates with small right effusion that is stable. White blood count elevated at 15.57 with a hemoglobin of 11.1. Patient was on IV steroids on admission which have been discontinued. Patient continues on breathing inhalational treatments as well. Xarelto will be held as patient was having some light nosebleed and blood-tinged sputum which has been ongoing patient states. Patient being started on low-dose Aldactone. Blood sugars were elevated yesterday with increase in long-acting along with pre-meal and to continue with sliding scale although blood sugars are much lower today and insulins have been held. Will discontinue pre-meal insulin and continue with sliding scale and long-acting and monitor closely with Accu- Cheks before meals and at bedtime 08/07/2021 Patient is currently sitting in the chair comfortably. Shortness of breath is much improved. Leg swelling is improving. Patient is maintained on Lasix 40 mg twice a day and Aldactone. Continued on DuoNeb's and Symbicort inhalation. Blood pressure is better controlled today. Laboratory data showed they received 40.6 hemoglobin 12.2 and platelets 216, sodium 135 potassium 3.8 chloride 95 bicarbonate 32 BUN 69 and creatinine 1.90 Cardiology and pulmonary is on board. Anticipate discharge next 24-48 hours. Review of systems: Constitutional: No reports of fatigue, fever, or chills Cardiovascular: No reports of chest pain or palpitations Respiratory: No reports of worsening shortness of breath or cough, feels less short of breath today GI: No reports of nausea, vomiting, or diarrhea : No reports of dysuria or retention Neurovascular: No reports of weakness or numbness All medications have been reviewed Objective - Vital Signs Vital signs: Vital Signs Temp 98.0 F 08/07/21 15:00 Pulse 64 08/07/21 15:48 Resp 16 09/11/21 15:48 BP 140/84 08/07/21 15:00 Pulse Ox 93 L 08/07/21 15:37 Intake & Output 08/06/21 08/07/21 08/07/21 18:59 06:59 18:59 Output Total 3981 307 8946 Balance -1500 -650 -1150 Weight 85.5 kg Output: Urine 9549 264 5137 Other: Voiding Method Toilet Urinal - Exam Patient is sitting up in the chair comfortably, no acute distress, awake alert and oriented.. HEENT: Normocephalic. Neck is supple. Pupils reactive. Nostrils clear. Oral cavity is moist. Neck reveals no JVD, carotid bruits, or thyromegaly. CHEST EXAMINATION: Trachea is central. Symmetrical expansion. Minimal right basilar crackles. No wheezing.. Nonlabored breathing.. CARDIAC: Normal S1, S2 with no gallops. No murmurs ABDOMEN: Soft. Bowel sounds normal. No organomegaly. No abdominal bruits. Extremities: 2+ edema. No clubbing or cyanosis, significant improvement in lower extremity edema noted Neurologically awake, alert, oriented x3 with well-coordinated movements. No focal deficits noted Skin: No rash or skin lesions. Psychiatric: Cooperative. Non-suicidal Musculoskeletal: No joint swelling or deformity. Normal range of motion. - Labs CBC & Chem 7: 08/07/21 06:27 08/07/21 06:27 Labs: Abnormal Lab Results - Last 24 Hours (Table) 08/06/21 08/06/21 08/06/21 Range/Units 07:35 07:35 20:28 WBC (3.8-10.6) k/uL RBC (4.30-5.90) m/uL Hgb (13.0-17.5) gm/dL Hct (39.0-53.0) % Neutrophils # (1.3-7.7) k/uL Lymphocytes # (1.0-4.8) k/uL Sodium (137-145) mmol/L Chloride (98-107) mmol/L Carbon Dioxide (22-30) mmol/L Anion Gap 14.70 H (4.00-12.00) mmol/L BUN 69.0 H (9.0-27.0) mg/dL Creatinine 2.3 H (0.6-1.5) mg/dL Est GFR (CKD-EPI)AfAm 33.1 L (60.0-200.0) Est GFR (CKD-EPI)NonAf 28.5 L (60.0-200.0) BUN/Creatinine Ratio 30.00 H (12.00-20.00) Ratio Glucose 138 H (70-110) mg/dL POC Glucose (mg/dL) 276 H (75-99) mg/dL Procalcitonin 2.00 H (0.02-0.09) ng/mL 08/07/21 08/07/21 08/07/21 Range/Units 06:27 06:27 07:06 WBC 14.6 H (3.8-10.6) k/uL RBC 3.78 L (4.30-5.90) m/uL Hgb 12.2 L (13.0-17.5) gm/dL Hct 36.1 L (39.0-53.0) % Neutrophils # 13.3 H (1.3-7.7) k/uL Lymphocytes # 0.6 L (1.0-4.8) k/uL Sodium 135 L (137-145) mmol/L Chloride 95 L (98-107) mmol/L Carbon Dioxide 32 H (22-30) mmol/L Anion Gap (4.00-12.00) mmol/L BUN 69 H (9.0-27.0) mg/dL Creatinine 1.90 H (0.6-1.5) mg/dL Est GFR (CKD-EPI)AfAm (60.0-200.0) Est GFR (CKD-EPI)NonAf (60.0-200.0) BUN/Creatinine Ratio (12.00-20.00) Ratio Glucose 155 H (70-110) mg/dL POC Glucose (mg/dL) 137 H (75-99) mg/dL Procalcitonin (0.02-0.09) ng/mL 08/07/21 08/07/21 Range/Units 11:20 16:40 WBC (3.8-10.6) k/uL RBC (4.30-5.90) m/uL Hgb (13.0-17.5) gm/dL Hct (39.0-53.0) % Neutrophils # (1.3-7.7) k/uL Lymphocytes # (1.0-4.8) k/uL Sodium (137-145) mmol/L Chloride (98-107) mmol/L Carbon Dioxide (22-30) mmol/L Anion Gap (4.00-12.00) mmol/L BUN (9.0-27.0) mg/dL Creatinine (0.6-1.5) mg/dL Est GFR (CKD-EPI)AfAm (60.0-200.0) Est GFR (CKD-EPI)NonAf (60.0-200.0) BUN/Creatinine Ratio (12.00-20.00) Ratio Glucose (70-110) mg/dL POC Glucose (mg/dL) 261 H 166 H (75-99) mg/dL Procalcitonin (0.02-0.09) ng/mL Microbiology - Last 24 Hours (Table) 08/04/21 08:33 Blood Culture - Preliminary Blood No Growth after 72 hours 08/04/21 08:33 Blood Culture - Preliminary Blood No Growth after 72 hours 08/06/21 17:37 Gram Stain - Preliminary Sputum Sputum Culture - Preliminary Assessment and Plan Assessment: Acute hypoxic respiratory failure multifactorial. Worsening shortness of breath secondary to acute COPD exacerbation Acute on chronic CHF with diastolic dysfunction Recently diagnosed lung mass with abdominal CT chest.. Supposed to follow with pulmonary clinic. Scheduled for outpatient PET scan on 08/06/2021 Hyperglycemia with uncontrolled diabetes type 2 Elevated troponin level unlikely ACS. Hyponatremia likely hypervolemic. Possible SIADH cannot be excluded. Bilateral small pleural effusions with recent history of right thoracentesis Chronic postnasal drip Persistent atrial fibrillation on anticoagulation with xarelto. Was on hold for persistent nosebleeds. Cardiology recommends to start back on xarelto. Sick sinus syndrome with history of permanent pacemaker placement coronary artery disease history of stent placement to circumflex Hypertension Hyperlipidemia Chronic hypoxic respiratory failure secondary to COPD Previous history of smoking History of liver cirrhosis DVT prophylaxis Full code Plan: Continue with oxygen supplementation. Pulmonary and cardiology following closely and discussed resuming Xarelto although patient refused as he continues to have frequent nosebleeds and blood-tinged sputum noted. Patient continues on IV Lasix 40 mg twice daily and diuresing well with improvement in breathing and lower extremity swelling. Patient blood sugars much lower today in the 100s and will discontinue pre-meal insulin and continue with sliding scale and his long-acting at night with continued Accu-Cheks before meals and at bedtime and as needed. Repeat labs pending from today and will follow-up. Patient was scheduled outpatient for a PET scan for his recently diagnosed lung mass today and will need to be rescheduled for the outpatient setting. Due to multiple complex medical issues, prognosis is guarded. Continue to follow closely.. Time with Patient: Greater than 30
[2021-08-07 21:20] LABS: Glucose,Whole Blood 305 mg/dL (75-99)
[2021-08-07] MEDS: MONTELUKAST 10 MG TAB PO SCH (21:33)
[2021-08-07] MEDS: TEMAZEPAM 15 MG CAP PO PRN (21:33)
[2021-08-07] MEDS: INSULIN DETEMIR (LEVEMIR) 100 UNIT/ML SYR SQ SCH (21:34)
[2021-08-08] MEDS: PANTOPRAZOLE 40 MG TABLET PO SCH (06:28)
[2021-08-08 07:22] LABS: Glucose,Whole Blood 53 mg/dL (75-99)
[2021-08-08] MEDS: INSULIN ASPART (NovoLOG) 100 UNIT/ML VIAL SQ SCH ×4 (07:22→20:40)
[2021-08-08] MEDS: SPIRONOLACTONE 25 MG TAB PO SCH (07:30)
[2021-08-08] MEDS: ISOSORBIDE MONONITRATE ER 30 MG TAB.ER.24H PO SCH (07:31)
[2021-08-08] MEDS: ASPIRIN 81 MG PO SCH (07:31)
[2021-08-08] MEDS: CHOLECALCIFEROL 25 MCG (1000 IU) TABLET PO SCH (07:31)
[2021-08-08] MEDS: LACTOBACILLUS ACIDOPH & BULGAR 1 EACH PACKET PO SCH (07:31)
[2021-08-08] MEDS: PRAVASTATIN SODIUM 20 MG TAB PO SCH (07:31)
[2021-08-08] MEDS: hydrALAZINE HCL 50 MG TAB PO SCH ×3 (07:31→20:42)
[2021-08-08] MEDS: METOPROLOL TARTRATE 50 MG TAB PO SCH ×2 (07:31→20:41)
[2021-08-08] MEDS: FUROSEMIDE 10 MG/ML 4 ML VIAL IV SCH ×2 (07:32→17:15)
[2021-08-08] MEDS: DILTIAZEM ORAL 30 MG TAB PO SCH ×2 (07:32→20:42)
[2021-08-08] MEDS: allopurinoL 100 MG TAB PO SCH ×2 (07:32→20:42)
[2021-08-08] MEDS: FLECAINIDE 50 MG TAB PO SCH ×2 (07:33→20:43)
[2021-08-08 07:39] LABS: Glucose,Whole Blood 78 mg/dL (75-99)
[2021-08-08] MEDS: IPRATROPIUM-ALBUTEROL 3 ML NEB INHALATION SCH ×4 (07:48→21:04)
[2021-08-08] MEDS: SYMBICORT 160-4.5 MCG INHALER INHALATION SCH ×2 (07:48→21:04)
[2021-08-08] MEDS ORDERED: PANTOPRAZOLE 40 MG TABLET PO STA (10:48)
[2021-08-08 11:36] LABS: Glucose,Whole Blood 152 mg/dL (75-99)
[2021-08-08] MEDS ORDERED: INSULIN ASPART (NovoLOG) 100 UNIT/ML VIAL SQ ONE (12:12)
[2021-08-08 12:25] LABS: Basophils # (A) 0.02 X 10*3/uL (0.00-0.10); Basophils % (A) 0.1 %; Eosinophils # (A) 0.11 X 10*3/uL (0.04-0.35); Eosinophils % (A) 0.8 %; HGB 11.8 g/dL (13.0-17.0); Lymphocytes % (A) 3.5 %; MCH 31.1 pg (27.0-32.0); MCHC 33.7 g/dL (32.0-37.0); MCV 92.3 fL (80.0-97.0); Mean Platelet Volume 11.9 fL (9.5-12.2); Monocytes # (A) 0.96 X 10*3/uL (0.20-1.00); Monocytes % (A) 6.7 %; Neutrophils % (A) 88.1 %; Platelet Count 209 X 10*3/uL (140-440); RBC 3.79 X 10*6/uL (4.40-5.60); RDW 15.1 % (11.5-14.5); WBC 14.31 X 10*3/uL (4.50-10.00)
[2021-08-08 13:08] LABS: African American GFR (CKD) 39.1 (60.0-200.0); Anion Gap 10.4 mmol/L (4.00-12.00); Calcium 9.2 mg/dL (8.7-10.3); Carbon Dioxide 32.6 mmol/L (21.6-31.8); Non-African American GFR(CKD) 33.8 (60.0-200.0)
--- NOTE | 2021-08-08 13:49 | P.PN ---
Subjective Progress Note Date: 08/08/21 This is a 66-year-old male with a past medical history significant for coronary artery disease with previous PCI to diagonal branch and circumflex, paroxysmal atrial fibrillation on anticoagulation with Xarelto, sick sinus syndrome with previous pacemaker implantation, diabetes, chronic kidney disease, hypertension, hyperlipidemia, liver disease, diastolic heart failure, and former nicotine dep endence. Patient follows in the office with Dr. Morgan. Patient was recently hospitalized secondary shortness of breath and diagnosed and treated for possible pneumonia. He was discharged home with antibiotics. He continued to be short of breath and also noticed some abdominal bloating and lower extremity edema. His NT proBNP was elevated and he has been initiated on IV Lasix. He recently underwent thoracentesis on 07/30/2021 with removal of 350 ML's. Echocardiogram completed June 2021 revealed normal LV systolic function with an ejection fraction of 55-60% with mild AF, mild MR and mild TR. Computed tomography scan of the chest done at that time showed findings worrisome for bronchogenic carcinoma left upper lobe per radiologist's dictation. PET scan is told at a later date as an outpatient. Patient had developed some nose bleeds and anticoagulation is currently on hold. Overall he is feeling a bit better. He has been up ambulating without much difficulty. He continues to have lower extremity edema above and beyond his baseline. Renal function appears a bit better compared to yesterday with a BUN of 69 creatinine of 1.9. Currently on Lasix 40 mg IV push every 12 hours. 08/08/2021 The patient was seen and examined today resting comfortably in a chair at the side of bed. He is overall feeling better. Continues to have some epistaxis but has improved. He feels his edema has improved. He's been up walking without much difficulty. Labs are pending at time of exam. Objective - Vital Signs Vital signs: Vital Signs Temp 97.3 F L 08/08/21 07:00 Pulse 74 08/08/21 11:29 Resp 16 08/08/21 07:00 BP 158/91 08/08/21 07:00 Pulse Ox 93 L 08/08/21 07:00 Intake & Output 08/07/21 08/08/21 08/08/21 18:59 06:59 18:59 Output Total 1150 280 Balance -1150 -280 Weight 86 kg Output: Urine 1150 280 Other: Voiding Method Toilet Urinal # Voids 5 # Bowel Movements 0 - Exam PHYSICAL EXAMINATION: HEENT: Head is atraumatic, normocephalic. Pupils equal, round. Neck is supple. There is no elevated jugular venous pressure. HEART EXAMINATION: Heart sounds regular, S1 and S2 normal. A soft systolic murmur. CHEST EXAMINATION: Lungs reveal diminished air entry bilaterally with faint right basilar crackles. No chest wall tenderness is noted on palpation or with deep breathing. ABDOMEN: Soft, nontender. Bowel sounds are heard. No organomegaly noted. EXTREMITIES: 2+ peripheral pulses with evidence of trace right lower extremity and 1+ left lower extremity edema with chronic skin changes. Improvement noted in amount of edema NEUROLOGIC patient is awake, alert and oriented x3. . - Labs CBC & Chem 7: 08/08/21 07:59 08/08/21 07:59 Labs: Abnormal Lab Results - Last 24 Hours (Table) 08/07/21 08/07/21 08/08/21 Range/Units 16:40 21:11 07:21 WBC (4.50-10.00) X 10*3/uL RBC (4.40-5.60) X 10*6/uL Hgb (13.0-17.0) g/dL Hct (39.6-50.0) % RDW (11.5-14.5) % Immature Gran # (0.00-0.04) X 10*3/uL Neutrophils # (1.80-7.70) X 10*3/uL Lymphocytes # (0.90-5.00) X 10*3/uL Carbon Dioxide (21.6-31.8) mmol/L BUN (9.0-27.0) mg/dL Creatinine (0.6-1.5) mg/dL Est GFR (CKD-EPI)AfAm (60.0-200.0) Est GFR (CKD-EPI)NonAf (60.0-200.0) BUN/Creatinine Ratio (12.00-20.00) Ratio Glucose (70-110) mg/dL POC Glucose (mg/dL) 166 H 305 H 53 L (75-99) mg/dL 08/08/21 08/08/21 08/08/21 Range/Units 07:59 07:59 11:35 WBC 14.31 H (4.50-10.00) X 10*3/uL RBC 3.79 L (4.40-5.60) X 10*6/uL Hgb 11.8 L (13.0-17.0) g/dL Hct 35.0 L (39.6-50.0) % RDW 15.1 H (11.5-14.5) % Immature Gran # 0.12 H (0.00-0.04) X 10*3/uL Neutrophils # 12.60 H (1.80-7.70) X 10*3/uL Lymphocytes # 0.50 L (0.90-5.00) X 10*3/uL Carbon Dioxide 32.6 H (21.6-31.8) mmol/L BUN 62.0 H (9.0-27.0) mg/dL Creatinine 2.0 H (0.6-1.5) mg/dL Est GFR (CKD-EPI)AfAm 39.1 L (60.0-200.0) Est GFR (CKD-EPI)NonAf 33.8 L (60.0-200.0) BUN/Creatinine Ratio 31.00 H (12.00-20.00) Ratio Glucose 111 H (70-110) mg/dL POC Glucose (mg/dL) 152 H (75-99) mg/dL Microbiology - Last 24 Hours (Table) 08/06/21 17:37 Gram Stain - Preliminary Sputum Sputum Culture - Preliminary 08/04/21 08:33 Blood Culture - Preliminary Blood No Growth after 96 hours 08/04/21 08:33 Blood Culture - Preliminary Blood No Growth after 96 hours Assessment and Plan Assessment: Acute exacerbation of chronic diastolic heart failure, ejection fraction 55-60% Abnormal CT chest, concerning for malignancy, PET scan pending Paroxysmal atrial fibrillation, on anticoagulation with Xarelto, currently on hold Coronary artery disease with previous PCI to diagonal branch and circumflex Sick sinus syndrome with previous pacemaker implantation Chronic kidney disease Hypertension Hyperlipidemia Diabetes mellitus Former nicotine dependence Epistaxis Plan: From senior research scientist perspective medications reviewed and we will continue the same. We will switch the patient to oral Lasix tomorrow. Continue to monitor daily weights, intake and output as well as renal function and electrolytes. The patient was advised to set up evaluation as an outpatient with Dr. Bhardwaj. Anticipate patient will be discharged home in the next 24 hours. Will continue to follow the patient for further recommendations accordingly. TECHNICAL PROFESSIONAL note has been reviewed, I agree with a documented findings and plan of care. Patient was seen and examined.
[2021-08-08 16:48] LABS: Glucose,Whole Blood 221 mg/dL (75-99)
[2021-08-08 20:05] LABS: Glucose,Whole Blood 273 mg/dL (75-99)
[2021-08-08] MEDS: INSULIN DETEMIR (LEVEMIR) 100 UNIT/ML SYR SQ SCH (20:40)
[2021-08-08] MEDS: MONTELUKAST 10 MG TAB PO SCH (20:41)
[2021-08-08] MEDS: TEMAZEPAM 15 MG CAP PO PRN (20:42)
--- NOTE | 2021-08-09 00:47 | P.PN ---
Subjective Progress Note Date: 08/08/21 Principal diagnosis: Acute COPD exacerbation Acute on chronic CHF with diastolic dysfunction Patient is a 66-year-old male with a known history of COPD on home oxygen, recent lung mass on CT chest on follow up with pulmonary, persistent atrial fibrillation on anticoagulation with xarelto, sick sinus syndrome with history of permanent pacemaker placement, coronary artery disease history of stent placement to circumflex, diabetes type 2 insulin-dependent, hypertension, hyperlipidemia, chronic CHF with diastolic dysfunction and previous history of smoking and alcohol use presents to ER with complaints of worsening shortness of breath. Patient was recently admitted to the hospital due to CHF and COPD exacerbation and was discharged on 08/16/2021. Underwent right thoracentesis on 07/30/2021. Patient says that he has been having postnasal drip and cough with clear to light yellowish sputum production along blood-tinged sputum. Denied any blood clots. Denied any fever or chills. Patient is also complaining of worsening leg swelling. No compressive chest pain. No headache or dizziness or lightheadedness. Patient has been using oxygen at home. On admission were pressure was 174/86, pulse 70 this was 19 pulse ox 90% on 4 L oxygen. Afebrile. Laboratory data showed WBC 14.2, hemoglobin 12.8 and platelets 205 Sodium 128 potassium 3.9, bicarb 28, BUN 14 and creatinine 1.69 Bilirubin 1.8, AST 53 ALT 91 and alk phos 171, troponin 0.043, proBNP 6320 Chest x-ray showed bilateral infiltrate with small bilateral effusions appears to be stable. 08/05/2021 Patient is seen and evaluated in follow-up this morning continues to be on 4 L of oxygen up and walking around the room with no worsening shortness of breath. Pulmonary and cardiology following closely. Patient will sugars have been elevated and normally maintained on pre-meal insulin along with sliding scale and long-acting and will increase the dose of pre-meal and long-acting and monitor closely. Patient continues on IV Lasix 40 mg twice daily and is diuresing well. Antibiotics and steroids have been discontinued. Patient normally on Xarelto for persistent atrial fibrillation which was on hold for continued epistaxis and will be resumed today and monitor closely for any signs of bleeding. Blood count is 10.84 with a hemoglobin of 10.8, sodium is 133 with a potassium of 4.0 current BUN is 52 with a creatinine of 2.2 and blood sugars have been upwards of 300 to 400s. 08/06/2021 Patient is seen in follow-up this morning sitting up in the chair with pulmonary and cardiology following. Patient continues on oxygen via nasal cannula at 2 L. Patient also continues on IV Lasix with cardiology following closely with possibility of transition to oral Lasix tomorrow. Patient states his breathing is improved along with his lower extremity swelling. BMP from today is pending. Patient underwent chest x-ray today showing multifocal infiltrates with small right effusion that is stable. White blood count elevated at 15.57 with a hemoglobin of 11.1. Patient was on IV steroids on admission which have been discontinued. Patient continues on breathing inhalational treatments as well. Xarelto will be held as patient was having some light nosebleed and blood-tinged sputum which has been ongoing patient states. Patient being started on low-dose Aldactone. Blood sugars were elevated yesterday with increase in long-acting along with pre-meal and to continue with sliding scale although blood sugars are much lower today and insulins have been held. Will discontinue pre-meal insulin and continue with sliding scale and long-acting and monitor closely with Accu- Cheks before meals and at bedtime 08/07/2021 Patient is currently sitting in the chair comfortably. Shortness of breath is much improved. Leg swelling is improving. Patient is maintained on Lasix 40 mg twice a day and Aldactone. Continued on DuoNeb's and Symbicort inhalation. Blood pressure is better controlled today. Laboratory data showed they received 40.6 hemoglobin 12.2 and platelets 216, sodium 135 potassium 3.8 chloride 95 bicarbonate 32 BUN 69 and creatinine 1.90 Cardiology and pulmonary is on board. Anticipate discharge next 24-48 hours. 08/08/2021 Patient is currently sitting in the chair comfortably. Leg swelling is much improved. Lung exam showed improved right basilar crackles. IV Lasix is being changed to by mouth 40 mg twice daily. Patient has been afebrile. No complaints of chest pain. Laboratory data showed WBC 14.3 hemoglobin 11.8 and platelets 209 BUN 62 and creatinine 2.0 blood sugar is 111 and proBNP 7280. Cardiology is on board. Review of systems: Constitutional: No reports of fatigue, fever, or chills Cardiovascular: No reports of chest pain or palpitations Respiratory: No reports of worsening shortness of breath or cough, feels less short of breath today GI: No reports of nausea, vomiting, or diarrhea : No reports of dysuria or retention Neurovascular: No reports of weakness or numbness All medications have been reviewed Objective - Vital Signs Vital signs: Vital Signs Temp 98.0 F 08/08/21 14:23 Pulse 107 H 08/08/21 20:02 Resp 18 08/08/21 20:02 BP 145/87 08/08/21 14:23 Pulse Ox 94 L 08/08/21 14:23 Intake & Output 08/08/21 08/08/21 08/09/21 06:59 18:59 06:59 Output Total 280 280 Balance -280 -280 Weight 86 kg 85.9 kg Output: Urine 280 280 Other: Voiding Method Toilet Toilet Urinal Urinal # Voids 5 5 # Bowel Movements 0 0 - Exam Patient is sitting up in the chair comfortably, no acute distress, awake alert and oriented.. HEENT: Normocephalic. Neck is supple. Pupils reactive. Nostrils clear. Oral cavity is moist. Neck reveals no JVD, carotid bruits, or thyromegaly. CHEST EXAMINATION: Trachea is central. Symmetrical expansion. no crackles. No wheezing.. Nonlabored breathing.. CARDIAC: Normal S1, S2 with no gallops. No murmurs ABDOMEN: Soft. Bowel sounds normal. No organomegaly. No abdominal bruits. Extremities: 2+ edema. No clubbing or cyanosis, significant improvement in lower extremity edema noted Neurologically awake, alert, oriented x3 with well-coordinated movements. No focal deficits noted Skin: No rash or skin lesions. Psychiatric: Cooperative. Non-suicidal Musculoskeletal: No joint swelling or deformity. Normal range of motion. - Labs CBC & Chem 7: 08/08/21 07:59 08/08/21 07:59 Labs: Abnormal Lab Results - Last 24 Hours (Table) 08/07/21 08/08/21 08/08/21 Range/Units 21:11 07:21 07:59 WBC (4.50-10.00) X 10*3/uL RBC (4.40-5.60) X 10*6/uL Hgb (13.0-17.0) g/dL Hct (39.6-50.0) % RDW (11.5-14.5) % Immature Gran # (0.00-0.04) X 10*3/uL Neutrophils # (1.80-7.70) X 10*3/uL Lymphocytes # (0.90-5.00) X 10*3/uL Carbon Dioxide 32.6 H (21.6-31.8) mmol/L BUN 62.0 H (9.0-27.0) mg/dL Creatinine 2.0 H (0.6-1.5) mg/dL Est GFR (CKD-EPI)AfAm 39.1 L (60.0-200.0) Est GFR (CKD-EPI)NonAf 33.8 L (60.0-200.0) BUN/Creatinine Ratio 31.00 H (12.00-20.00) Ratio Glucose 111 H (70-110) mg/dL POC Glucose (mg/dL) 305 H 53 L (75-99) mg/dL 08/08/21 08/08/21 08/08/21 Range/Units 07:59 11:35 16:47 WBC 14.31 H (4.50-10.00) X 10*3/uL RBC 3.79 L (4.40-5.60) X 10*6/uL Hgb 11.8 L (13.0-17.0) g/dL Hct 35.0 L (39.6-50.0) % RDW 15.1 H (11.5-14.5) % Immature Gran # 0.12 H (0.00-0.04) X 10*3/uL Neutrophils # 12.60 H (1.80-7.70) X 10*3/uL Lymphocytes # 0.50 L (0.90-5.00) X 10*3/uL Carbon Dioxide (21.6-31.8) mmol/L BUN (9.0-27.0) mg/dL Creatinine (0.6-1.5) mg/dL Est GFR (CKD-EPI)AfAm (60.0-200.0) Est GFR (CKD-EPI)NonAf (60.0-200.0) BUN/Creatinine Ratio (12.00-20.00) Ratio Glucose (70-110) mg/dL POC Glucose (mg/dL) 152 H 221 H (75-99) mg/dL 08/08/21 Range/Units 20:03 WBC (4.50-10.00) X 10*3/uL RBC (4.40-5.60) X 10*6/uL Hgb (13.0-17.0) g/dL Hct (39.6-50.0) % RDW (11.5-14.5) % Immature Gran # (0.00-0.04) X 10*3/uL Neutrophils # (1.80-7.70) X 10*3/uL Lymphocytes # (0.90-5.00) X 10*3/uL Carbon Dioxide (21.6-31.8) mmol/L BUN (9.0-27.0) mg/dL Creatinine (0.6-1.5) mg/dL Est GFR (CKD-EPI)AfAm (60.0-200.0) Est GFR (CKD-EPI)NonAf (60.0-200.0) BUN/Creatinine Ratio (12.00-20.00) Ratio Glucose (70-110) mg/dL POC Glucose (mg/dL) 273 H (75-99) mg/dL Microbiology - Last 24 Hours (Table) 08/06/21 17:37 Gram Stain - Preliminary Sputum Sputum Culture - Preliminary 08/04/21 08:33 Blood Culture - Preliminary Blood No Growth after 96 hours 08/04/21 08:33 Blood Culture - Preliminary Blood No Growth after 96 hours Assessment and Plan Assessment: Acute hypoxic respiratory failure multifactorial. Acute on chronic CHF with diastolic dysfunction Worsening shortness of breath secondary to acute COPD exacerbation. improved TINO, likley prerenal with diuresis Recently diagnosed lung mass with abdominal CT chest.. Supposed to follow with pulmonary clinic. Scheduled for outpatient PET scan on 08/06/2021 Hyperglycemia with uncontrolled diabetes type 2 Elevated troponin level unlikely ACS. Hyponatremia likely hypervolemic. Possible SIADH cannot be excluded. Bilateral small pleural effusions with recent history of right thoracentesis Chronic postnasal drip Persistent atrial fibrillation on anticoagulation with xarelto. Was on hold for persistent nosebleeds. Cardiology recommends to start back on xarelto. Sick sinus syndrome with history of permanent pacemaker placement coronary artery disease history of stent placement to circumflex Hypertension Hyperlipidemia Chronic hypoxic respiratory failure secondary to COPD Previous history of smoking History of liver cirrhosis DVT prophylaxis Full code Plan: Continue with oxygen supplementation. Pulmonary and cardiology following closely and discussed resuming Xarelto although patient refused as he continues to have frequent nosebleeds and blood-tinged sputum noted. Patient continues on IV Lasix 40 mg twice daily and diuresing well with improvement in breathing and lower extremity swelling. Patient blood sugars much lower today in the 100s and will discontinue pre-meal insulin and continue with sliding scale and his long-acting at night with continued Accu-Cheks before meals and at bedtime and as needed. Repeat labs pending from today and will follow-up. Patient was scheduled outpatient for a PET scan for his recently diagnosed lung mass today and will need to be rescheduled for the outpatient setting. Due to multiple complex medical issues, prognosis is guarded. Continue to follow closely.. Time with Patient: Greater than 30
[2021-08-09 01:05] VITALS: RESP 16
[2021-08-09] MEDS: PANTOPRAZOLE 40 MG TABLET PO SCH (06:31)
[2021-08-09 07:01] LABS: Glucose,Whole Blood 91 mg/dL (75-99)
[2021-08-09] MEDS: INSULIN ASPART (NovoLOG) 100 UNIT/ML VIAL SQ SCH ×2 (07:30→12:23)
[2021-08-09] MEDS: IPRATROPIUM-ALBUTEROL 3 ML NEB INHALATION SCH ×2 (08:32→12:03)
[2021-08-09] MEDS: SYMBICORT 160-4.5 MCG INHALER INHALATION SCH (08:32)
[2021-08-09 08:40] VITALS: BP 137/87; TEMP 98.5
[2021-08-09] MEDS: PRAVASTATIN SODIUM 20 MG TAB PO SCH (08:40)
[2021-08-09] MEDS: allopurinoL 100 MG TAB PO SCH (08:40)
[2021-08-09] MEDS: SPIRONOLACTONE 25 MG TAB PO SCH (08:40)
[2021-08-09] MEDS: LACTOBACILLUS ACIDOPH & BULGAR 1 EACH PACKET PO SCH (08:40)
[2021-08-09] MEDS: METOPROLOL TARTRATE 50 MG TAB PO SCH (08:40)
[2021-08-09] MEDS: CHOLECALCIFEROL 25 MCG (1000 IU) TABLET PO SCH (08:40)
[2021-08-09] MEDS: hydrALAZINE HCL 50 MG TAB PO SCH (08:40)
[2021-08-09] MEDS: ISOSORBIDE MONONITRATE ER 30 MG TAB.ER.24H PO SCH (08:40)
[2021-08-09] MEDS: ASPIRIN 81 MG PO SCH (08:40)
[2021-08-09] MEDS: FLECAINIDE 50 MG TAB PO SCH (08:42)
[2021-08-09] MEDS: DILTIAZEM ORAL 30 MG TAB PO SCH (08:58)
[2021-08-09] MEDS ORDERED: FUROSEMIDE 40 MG TAB PO SCH (09:00)
[2021-08-09 11:17] VITALS: PULSE 80
[2021-08-09 11:37] LABS: Glucose,Whole Blood 252 mg/dL (75-99)
[2021-08-09 12:33] LABS: Basophils # (A) 0.01 X 10*3/uL (0.00-0.10); Basophils % (A) 0.1 %; Eosinophils # (A) 0.16 X 10*3/uL (0.04-0.35); Eosinophils % (A) 1.5 %; HCT 34.5 % (39.6-50.0); HGB 11.5 g/dL (13.0-17.0); Lymphocytes # (A) 0.53 X 10*3/uL (0.90-5.00); Lymphocytes % (A) 4.9 %; MCH 31.1 pg (27.0-32.0); MCHC 33.3 g/dL (32.0-37.0); MCV 93.2 fL (80.0-97.0); Mean Platelet Volume 12.1 fL (9.5-12.2); Monocytes # (A) 0.81 X 10*3/uL (0.20-1.00); Monocytes % (A) 7.5 %; Neutrophils # (A) 9.28 X 10*3/uL (1.80-7.70); Neutrophils % (A) 85.3 %; Platelet Count 195 X 10*3/uL (140-440); RDW 15.3 % (11.5-14.5); WBC 10.87 X 10*3/uL (4.50-10.00)
--- NOTE | 2021-08-09 13:12 | US ---
EXAMINATION TYPE: US venous doppler duplex LE DATE OF EXAM: 08/09/2021 1:08 PM COMPARISON: NONE CLINICAL HISTORY: bilateral calf pain. pain while walking in calves, swelling in ankles SIDE PERFORMED: Bilateral TECHNIQUE: The lower extremity deep venous system is examined utilizing real time linear array sonog alanna with graded compression, doppler sonography and color-flow sonography. VESSELS IMAGED: Common Femoral Vein Deep Femoral Vein Greater Saphenous Vein * Femoral Vein Popliteal Vein Small Saphenous Vein * Proximal Calf Veins (* superficial vessels) Right Leg: Negative for DVTfluid collection noted within mid calf at area of pain, unknown etiolog y Left Leg: Negative for DVT Grayscale, color doppler, spectral doppler imaging performed of the deep veins of the bilateral lower extremities. There is normal flow, compressibility, vascular waveforms. IMPRESSION: No ultrasound evidence for acute DVT in either lower extremity. Elongated thin-walled fl uid collection mid leg level, AP diameter roughly 1.0 cm. Length extends out of the field of view. Co nsider etiology such as tennis leg. Consider MRI evaluation based on clinical correlation.
[2021-08-09 14:44] LABS: African American GFR (CKD) 41.7 (60.0-200.0); Anion Gap 10.6 mmol/L (4.00-12.00); BUN/Creat Ratio 32.11 Ratio (12.00-20.00); Calcium 8.7 mg/dL (8.7-10.3); Carbon Dioxide 32.4 mmol/L (21.6-31.8); Non-African American GFR(CKD) 35.9 (60.0-200.0); Potassium 3.7 mmol/L (3.5-5.5)
--- NOTE | 2021-08-10 12:54 | P.DS ---
Providers Date of admission: 08/04/21 10:41 Expected date of discharge: 08/09/21 Attending physician: Dar Vasquez MD Consults: 08/04/21 10:41 Consult Physician Routine Consulting Provider: Clay Queen Consult Reason/Comments: dyspnea Do you want consulting provider notified?: Yes Primary care physician: Ivy Blackmon Hospital Course: Final diagnosis Acute hypoxic respiratory failure multifactorial. Acute on chronic CHF with diastolic dysfunction Worsening shortness of breath secondary to acute COPD exacerbation. improved TINO, likley prerenal with diuresis Recently diagnosed lung mass with abdominal CT chest.. Supposed to follow with pulmonary clinic. Scheduled for outpatient PET scan on 08/06/2021 Hyperglycemia with uncontrolled diabetes type 2 Elevated troponin level unlikely ACS. Hyponatremia likely hypervolemic. Possible SIADH cannot be excluded. Bilateral small pleural effusions with recent history of right thoracentesis Chronic postnasal drip Persistent atrial fibrillation on anticoagulation with xarelto. Was on hold for persistent nosebleeds. Cardiology recommends to start back on xarelto. Sick sinus syndrome with history of permanent pacemaker placement coronary artery disease history of stent placement to circumflex Hypertension Hyperlipidemia Chronic hypoxic respiratory failure secondary to COPD Previous history of smoking History of liver cirrhosis DVT prophylaxis Full code Discharge disposition Patient is being discharged in a stable condition with guarded prognosis to home. Patient will follow-up with Dr. Blackmon upon discharge. Patient will need to follow-up with pulmonary Dr. Queen in the outpatient setting as scheduled. Patient also needs to follow-up with ENT for continued chronic nosebleeds and will continue to hold Xarelto until follow-up with ENT and cardiology. Patient will continue on Lasix 40 mg twice daily upon discharge along with Aldactone.. Total time taken is greater than 35 minutes. Hospital course Acute COPD exacerbation Acute on chronic CHF with diastolic dysfunction Patient is a 66-year-old male with a known history of COPD on home oxygen, recent lung mass on CT chest on follow up with pulmonary, persistent atrial fibrillation on anticoagulation with xarelto, sick sinus syndrome with history of permanent pacemaker placement, coronary artery disease history of stent placement to circumflex, diabetes type 2 insulin-dependent, hypertension, hyperlipidemia, chronic CHF with diastolic dysfunction and previous history of smoking and alcohol use presents to ER with complaints of worsening shortness of breath. Patient was recently admitted to the hospital due to CHF and COPD exacerbation and was discharged on 08/16/2021. Underwent right thoracentesis on 07/30/2021. Patient says that he has been having postnasal drip and cough with clear to light yellowish sputum production along blood-tinged sputum. Denied any blood clots. Denied any fever or chills. Patient is also complaining of worsening leg swelling. No compressive chest pain. No headache or dizziness or lightheadedness. Patient has been using oxygen at home. On admission were pressure was 174/86, pulse 70 this was 19 pulse ox 90% on 4 L oxygen. Afebrile. Laboratory data showed WBC 14.2, hemoglobin 12.8 and platelets 205 Sodium 128 potassium 3.9, bicarb 28, BUN 14 and creatinine 1.69 Bilirubin 1.8, AST 53 ALT 91 and alk phos 171, troponin 0.043, proBNP 6320 Chest x-ray showed bilateral infiltrate with small bilateral effusions appears to be stable. 08/05/2021 Patient is seen and evaluated in follow-up this morning continues to be on 4 L of oxygen up and walking around the room with no worsening shortness of breath. Pulmonary and cardiology following closely. Patient will sugars have been elevated and normally maintained on pre-meal insulin along with sliding scale and long-acting and will increase the dose of pre-meal and long-acting and monitor closely. Patient continues on IV Lasix 40 mg twice daily and is diuresing well. Antibiotics and steroids have been discontinued. Patient normally on Xarelto for persistent atrial fibrillation which was on hold for continued epistaxis and will be resumed today and monitor closely for any signs of bleeding. Blood count is 10.84 with a hemoglobin of 10.8, sodium is 133 with a potassium of 4.0 current BUN is 52 with a creatinine of 2.2 and blood sugars have been upwards of 300 to 400s. 08/06/2021 Patient is seen in follow-up this morning sitting up in the chair with pulmonary and cardiology following. Patient continues on oxygen via nasal cannula at 2 L. Patient also continues on IV Lasix with cardiology following closely with possibility of transition to oral Lasix tomorrow. Patient states his breathing is improved along with his lower extremity swelling. BMP from today is pending. Patient underwent chest x-ray today showing multifocal infiltrates with small right effusion that is stable. White blood count elevated at 15.57 with a hemoglobin of 11.1. Patient was on IV steroids on admission which have been discontinued. Patient continues on breathing inhalational treatments as well. Xarelto will be held as patient was having some light nosebleed and blood-tinged sputum which has been ongoing patient states. Patient being started on low-dose Aldactone. Blood sugars were elevated yesterday with increase in long-acting along with pre-meal and to continue with sliding scale although blood sugars are much lower today and insulins have been held. Will discontinue pre-meal insulin and continue with sliding scale and long-acting and monitor closely with Accu- Cheks before meals and at bedtime 08/07/2021 Patient is currently sitting in the chair comfortably. Shortness of breath is much improved. Leg swelling is improving. Patient is maintained on Lasix 40 mg twice a day and Aldactone. Continued on DuoNeb's and Symbicort inhalation. Blood pressure is better controlled today. Laboratory data showed they received 40.6 hemoglobin 12.2 and platelets 216, sodium 135 potassium 3.8 chloride 95 bicarbonate 32 BUN 69 and creatinine 1.90 Cardiology and pulmonary is on board. Anticipate discharge next 24-48 hours. 08/08/2021 Patient is currently sitting in the chair comfortably. Leg swelling is much improved. Lung exam showed improved right basilar crackles. IV Lasix is being changed to by mouth 40 mg twice daily. Patient has been afebrile. No complaints of chest pain. Laboratory data showed WBC 14.3 hemoglobin 11.8 and platelets 209 BUN 62 and creatinine 2.0 blood sugar is 111 and proBNP 7280. Cardiology is on board. 08/09/2021 Patient is seen in follow-up no acute overnight issues. Patient transitioned oral Lasix and cardiology evaluated the patient recommending close outpatient follow-up and continue with Lasix in the outpatient setting. Recommend repeat labs in a few days to monitor kidney functions along with electrolytes. Patient having some bilateral lower extremity calf pain and venous Doppler of bilateral lower extremities were negative for DVT with a small fluid collection noted on the right and recommended to use compression stockings or Maximus wraps to the lower extremities along with elevating while at rest and may use ice for discomfort. Patient has been walking quite a bit during this hospitalization most likely experiencing some leg pain secondary to this. Kidney functions show a BUN of 61 and a creatinine of 1.9 which is trending down low sodium of 141 and a potassium of 4.7 and recommend outpatient follow-up of repeat labs with primary care provider. Patient to follow up with pulmonary and cardiology in the outpatient setting. Patient to reschedule outpatient PET scan for known lung mass and follow-up with pulmonary. Currently no reports of chest pain, worsening shortness of breath, or palpitations. Patient is afebrile. No reports of nausea or vomiting and patient is tolerating diet. Patient will be discharged home today. Patient is sitting up in the chair comfortably, no acute distress, awake alert and oriented. HEENT: Normocephalic. Neck is supple. Pupils reactive. Nostrils clear. Oral cavity is moist. Neck reveals no JVD, carotid bruits, or thyromegaly. CHEST EXAMINATION: Trachea is central. Symmetrical expansion. Lung tobias clear to auscultation and percussion. CARDIAC: Normal S1, S2 with no gallops. No murmurs ABDOMEN: Soft. Bowel sounds normal. No organomegaly. No abdominal bruits. Extremities: No edema noted. No clubbing or cyanosis Neurologically awake, alert, oriented x3 with well-coordinated movements. No focal deficits noted Skin: No rash or skin lesions. Psychiatric: Cooperative. Non-suicidal Musculoskeletal: No joint swelling or deformity. Please refer to medication reconciliation sheet for a list of medications. Patient Condition at Discharge: Stable Plan - Discharge Summary Discharge Rx Participant: Yes New Discharge Prescriptions: New Spironolactone [Aldactone] 12.5 mg PO DAILY #30 tab Temazepam [Restoril] 15 mg PO HS PRN #10 cap PRN Reason: Insomnia Aspirin 81 mg PO DAILY #30 Sodium Chloride 0.65% Nasal [Deep Sea (Saline)] 2 spray NASAL QID PRN #7 ml PRN Reason: Dry Nasal Passages Continue Fluticasone Nasal [place] [Flonase Nasal [place]] 1 spr EA NOSTRIL DAILY PRN PRN Reason: Allergy Symptoms Cholecalciferol [Vitamin D3 (25 Mcg = 1000 Iu)] 75 mcg PO PC-BRKFST Isosorbide Mononitrate ER [Imdur] 30 mg PO DAILY Pantoprazole [Protonix] 40 mg PO DAILY Montelukast [Singulair] 10 mg PO HS Metoprolol Tartrate [Lopressor] 50 mg PO BID Loratadine [Claritin] 10 mg PO DAILY Furosemide [Lasix] 40 mg PO BID@0900,1600 #60 tab Ipratropium-Albuterol Nebulize [Duoneb 0.5 mg-3 mg/3 ml Soln] 3 ml INHALATION RT-QID PRN PRN Reason: Shortness Of Breath allopurinoL [Zyloprim] 100 mg PO BID Vitamin B Complex 1 cap PO DAILY Ubidecarenone [Co Q-10] 100 mg PO DAILY Pravastatin Sodium [Pravachol] 20 mg PO DAILY Flecainide [Tambocor] 50 mg PO Q12H Albuterol Sulfate [Ventolin HFA] 1 - 2 puff INHALATION RT-Q6H PRN PRN Reason: Shortness Of Breath hydrALAZINE HCL [Apresoline] 100 mg PO TID Nitroglycerin Sl Tabs [Nitrostat] 0.4 mg SL Q5M PRN PRN Reason: Chest Pain Ipratropium-Albuterol Nebulize [Duoneb 0.5 mg-3 mg/3 ml Soln] 3 ml INHALATION RT-QID 30 Days #90 ml Lactobacillus Acidoph & Bulgar [Lactinex] 1 packet PO DAILY 30 Days #30 packet Insulin Lispro [humaLOG] See Protocol SQ AC-TID Insulin Detemir (Levemir) [Levemir] 56 unit SQ HS Ferrous Gluconate [Fergon] 1 tab PO DAILY Folic Acid 0.4 mg PO DAILY Fluticasone/Salmeterol [Fluticasone-Salmeterol 232-14] 1 puff INHALATION Q48H Magnesium Oxide [Goss] 500 mg PO DAILY dilTIAZem HCL 90 mg PO BID Discontinued Rivaroxaban [Xarelto] 15 mg PO DAILY Levofloxacin [Levaquin] 750 mg PO Q48H 7 Days #7 tab Discharge Medication List Fluticasone Nasal [place] [Flonase Nasal [place]] 1 spr EA NOSTRIL DAILY PRN 05/12/16 [History] Cholecalciferol [Vitamin D3 (25 Mcg = 1000 Iu)] 75 mcg PO PC-BRKFST 08/26/18 [History] Isosorbide Mononitrate ER [Imdur] 30 mg PO DAILY 01/16/19 [History] Pantoprazole [Protonix] 40 mg PO DAILY 01/16/19 [History] Montelukast [Singulair] 10 mg PO HS 02/12/19 [History] Loratadine [Claritin] 10 mg PO DAILY 03/28/19 [History] Metoprolol Tartrate [Lopressor] 50 mg PO BID 03/28/19 [History] Furosemide [Lasix] 40 mg PO BID@0900,1600 #60 tab 04/10/19 [Rx] Ipratropium-Albuterol Nebulize [Duoneb 0.5 mg-3 mg/3 ml Soln] 3 ml INHALATION RT-QID PRN 06/12/19 [History] Vitamin B Complex 1 cap PO DAILY 06/24/19 [History] allopurinoL [Zyloprim] 100 mg PO BID 06/24/19 [History] Ubidecarenone [Co Q-10] 100 mg PO DAILY 08/01/19 [History] Flecainide [Tambocor] 50 mg PO Q12H 11/11/19 [History] Pravastatin Sodium [Pravachol] 20 mg PO DAILY 11/11/19 [History] Albuterol Sulfate [Ventolin HFA] 1 - 2 puff INHALATION RT-Q6H PRN 07/25/21 [History] Fluticasone/Salmeterol [Fluticasone-Salmeterol 232-14] 1 puff INHALATION Q48H 07/25/21 [History] Folic Acid 0.4 mg PO DAILY 07/25/21 [History] Magnesium Oxide [Goss] 500 mg PO DAILY 07/25/21 [History] dilTIAZem HCL 90 mg PO BID 07/25/21 [History] hydrALAZINE HCL [Apresoline] 100 mg PO TID 07/25/21 [History] Nitroglycerin Sl Tabs [Nitrostat] 0.4 mg SL Q5M PRN 07/26/21 [History] Ipratropium-Albuterol Nebulize [Duoneb 0.5 mg-3 mg/3 ml Soln] 3 ml INHALATION RT-QID 30 Days #90 ml 07/30/21 [Rx] Lactobacillus Acidoph & Bulgar [Lactinex] 1 packet PO DAILY 30 Days #30 packet 07/30/21 [Rx] Insulin Detemir (Levemir) [Levemir] 56 unit SQ HS 08/04/21 [History] Insulin Lispro [humaLOG] See Protocol SQ AC-TID 08/04/21 [History] Ferrous Gluconate [Fergon] 1 tab PO DAILY 08/06/21 [History] Aspirin 81 mg PO DAILY #30 08/09/21 [Rx] Sodium Chloride 0.65% Nasal [Deep Sea (Saline)] 2 spray NASAL QID PRN #7 ml 08/09/21 [Rx] Spironolactone [Aldactone] 12.5 mg PO DAILY #30 tab 08/09/21 [Rx] Temazepam [Restoril] 15 mg PO HS PRN #10 cap 08/09/21 [Rx] Follow up Appointment(s)/Referral(s): Mahendra Bhardwaj DO [Doctor of Osteopathic Medicine] - 08/16/21 3:15 pm [facility],Equipment [NON-STAFF] - ([facility] is mailing the humidification to your home. Please contact them with questions reqarding your home oxygen/humidification. ) Ivy Blackmon DO [Primary Care Provider] - 1-2 days Clay Queen DO [Doctor of Osteopathic Medicine] - 08/25/21 11:15 am [facility], [NON-STAFF] - ([facility] will call you to set up the time for your first visit. ) Patient Instructions/Handouts: Heart Failure (DC), Dyspnea (DC) Activity/Diet/Wound Care/Special Instructions: Use maximus wraps or compression stockings to the lower extremities and elevate extremities while at rest. May use ice to the areas of discomfort Activity Limited until follow-up Follow-up primary care provider on discharge Follow-up cardiology outpatient Follow-up pulmonary outpatient Follow-up with ENT outpatient this week Continue holding Xarelto until ENT follow-up Continue consistent carbohydrate diet and monitor blood sugars closely and keep a diary for primary care follow-up Discharge Disposition: HOME WITH HOME HEALTH SERVICES
== END 2021-08-09 14:33 | disposition home health service (06) | DRG 291 ==
LOC: EC 08:01 → 1SOBS 10:41 → 4SSUR 16:35
PROVIDERS: ADMIT Internal Medicine; ATTEND Internal Medicine
PROC: 093K7ZZ Control Bleeding in Nasal Mucosa and Soft Tissue, Via Natural or Artificial Opening (ICD-10-PCS; principal; 2021-08-04)
DX: I13.0 Hypertensive heart and chronic kidney disease with heart failure and stage 1 through stage 4 chronic kidney disease, or unspecified chronic kidney disease (principal); I50.33 Acute on chronic diastolic (congestive) heart failure; J96.21 Acute and chronic respiratory failure with hypoxia; J44.1 Chronic obstructive pulmonary disease with (acute) exacerbation; E87.1 Hypo-osmolality and hyponatremia; I48.19 Other persistent atrial fibrillation; N17.9 Acute kidney failure, unspecified; E11.22 Type 2 diabetes mellitus with diabetic chronic kidney disease; E78.5 Hyperlipidemia, unspecified; F03.90 Unspecified dementia, unspecified severity, without behavioral disturbance, psychotic disturbance, mood disturbance, and anxiety; I25.10 Atherosclerotic heart disease of native coronary artery without angina pectoris; I25.2 Old myocardial infarction; K74.60 Unspecified cirrhosis of liver; N40.0 Benign prostatic hyperplasia without lower urinary tract symptoms; N18.30 Chronic kidney disease, stage 3 unspecified; R04.0 Epistaxis; Z77.090 Contact with and (suspected) exposure to asbestos; Z79.01 Long term (current) use of anticoagulants; Z79.4 Long term (current) use of insulin; Z79.899 Other long term (current) drug therapy; Z82.49 Family history of ischemic heart disease and other diseases of the circulatory system; Z83.3 Family history of diabetes mellitus; Z87.891 Personal history of nicotine dependence; Z95.0 Presence of cardiac pacemaker; Z95.5 Presence of coronary angioplasty implant and graft; Z96.1 Presence of intraocular lens; Z99.81 Dependence on supplemental oxygen; J98.6 Disorders of diaphragm; G89.29 Other chronic pain; H26.9 Unspecified cataract; I83.90 Asymptomatic varicose veins of unspecified lower extremity; K21.9 Gastro-esophageal reflux disease without esophagitis; L13.0 Dermatitis herpetiformis; M47.9 Spondylosis, unspecified; M54.5 Low back pain; R09.82 Postnasal drip; E11.65 Type 2 diabetes mellitus with hyperglycemia; D63.1 Anemia in chronic kidney disease
CPT/HCPCS: 36415; 71045; 71046; 80048; 80053; 83605; 83880; 84145; 84484; 85025; 85610; 85730; 87040; 87070; 87205; 87635; 93005; 93970; 94640; 94760; 99285

== ENCOUNTER 2021-08-18 08:43 | Observation (INO) | payer MEDICARE ==
[2021-08-18] MEDS ORDERED: IPRATROPIUM 0.5 MG/2.5 ML NEBU INHALATION STA (09:05)
[2021-08-18] MEDS ORDERED: ALBUTEROL NEBULIZED 2.5 MG/3 ML INHALATION STA (09:05)
[2021-08-18] MEDS ORDERED: methylPREDNISolone SOD SUCCI 125 MG/2 ML VIAL IV STA (09:05)
[2021-08-18] MEDS ORDERED: FUROSEMIDE 10 MG/ML 4 ML VIAL IV STA (09:05)
[2021-08-18 09:28] LABS: Basophils % (A) 0 %; Eosinophils # (A) 0.1 k/uL (0-0.7); Eosinophils % (A) 1 %; HCT 37.4 % (39.0-53.0); HGB 12.1 gm/dL (13.0-17.5); Lymphocytes # (A) 0.5 k/uL (1.0-4.8); Lymphocytes % (A) 3 %; MCH 31.7 pg (25.0-35.0); MCHC 32.3 g/dL (31.0-37.0); MCV 98.1 fL (80.0-100.0); Mean Platelet Volume 9.3; Monocytes # (A) 0.7 k/uL (0-1.0); Monocytes % (A) 5 %; Neutrophils # (A) 12.6 k/uL (1.3-7.7); Neutrophils % (A) 90 %; Platelet Count 225 k/uL (150-450); RBC 3.82 m/uL (4.30-5.90); RDW 14.6 % (11.5-15.5); WBC 13.9 k/uL (3.8-10.6)
--- NOTE | 2021-08-18 09:29 | ED ---
General Adult HPI - General Chief complaint: Shortness of Breath Stated complaint: DEDRICK Time Seen by Provider: 08/18/21 08:50 Source: patient, RN notes reviewed, old records reviewed Mode of arrival: EMS Limitations: no limitations - History of Present Illness Initial comments: This is a 66 her old male who presents emergency department stating that he had difficulty breathing starting last night about 11:00. Patient states he has a history of COPD and congestive heart. Patient states she's twice been admitted to the hospital this month once for pneumonia and once for CHF. Patient states yesterday he felt fine he saw his doctor and he had no symptoms. Patient states last night he started having some difficulty breathing woke up 2:00 to complete admitted help a little but he woke up this morning was significantly short of breath so decided come to the emergency department. Patient denies any fever chills or cough. Patient states he has a little more edema to his feet than normal. Patient denies any chest pain or palpitations. Patient denies abdominal pain. Patient denies nausea vomiting diarrhea. - Related Data Home Medications Medication Instructions Recorded Confirmed Fluticasone Nasal Kent [Flonase 1 spr EA NOSTRIL DAILY PRN 05/12/16 08/18/21 Nasal Kent] Isosorbide Mononitrate ER [Imdur] 30 mg PO DAILY 01/16/19 08/18/21 Pantoprazole [Protonix] 40 mg PO DAILY 01/16/19 08/18/21 Montelukast [Singulair] 10 mg PO HS 02/12/19 08/18/21 Loratadine [Claritin] 10 mg PO DAILY 03/28/19 08/18/21 Metoprolol Tartrate [Lopressor] 50 mg PO BID 03/28/19 08/18/21 Vitamin B Complex 1 cap PO DAILY 06/24/19 08/18/21 allopurinoL [Zyloprim] 100 mg PO BID 06/24/19 08/18/21 Ubidecarenone [Co Q-10] 100 mg PO DAILY 08/01/19 08/18/21 Pravastatin Sodium [Pravachol] 20 mg PO DAILY 11/11/19 08/18/21 Albuterol Sulfate [Ventolin HFA] 1 - 2 puff INHALATION RT-Q6H PRN 07/25/21 08/18/21 Fluticasone/Salmeterol 1 puff INHALATION Q48H 07/25/21 08/18/21 [Fluticasone-Salmeterol 232-14] Folic Acid 0.4 mg PO DAILY 07/25/21 08/18/21 Magnesium Oxide [Goss] 500 mg PO DAILY 07/25/21 08/18/21 dilTIAZem HCL 90 mg PO BID 07/25/21 08/18/21 hydrALAZINE HCL [Apresoline] 100 mg PO TID 07/25/21 08/18/21 Nitroglycerin Sl Tabs [Nitrostat] 0.4 mg SL Q5M PRN 07/26/21 08/18/21 Insulin Detemir (Levemir) [Levemir] 48 unit SQ HS 08/04/21 08/18/21 Insulin Lispro [humaLOG] See Protocol SQ AC-TID 08/04/21 08/18/21 Ferrous Gluconate [Fergon] 225 mg PO DAILY 08/06/21 08/18/21 Cholecalciferol [Vitamin D3 (25 75 mcg PO DAILY 08/18/21 08/18/21 Mcg = 1000 Iu)] Flecainide Acetate 100 mg PO BID 08/18/21 08/18/21 Rivaroxaban [Xarelto] 15 mg PO DIRECTED 08/18/21 08/18/21 Previous Rx's Medication Instructions Recorded Furosemide [Lasix] 40 mg PO BID@0900,1600 #60 tab 04/10/19 Ipratropium-Albuterol Nebulize 3 ml INHALATION RT-QID 30 Days #90 07/30/21 [Duoneb 0.5 mg-3 mg/3 ml Soln] ml Lactobacillus Acidoph & Bulgar 1 packet PO DAILY 30 Days #30 07/30/21 [Lactinex] packet Aspirin 81 mg PO DAILY #30 08/09/21 Sodium Chloride 0.65% Nasal [Deep 2 spray NASAL QID PRN #7 ml 08/09/21 Sea (Saline)] Spironolactone [Aldactone] 12.5 mg PO DAILY #30 tab 08/09/21 Temazepam [Restoril] 15 mg PO HS PRN #10 cap 08/09/21 Allergies Allergy/AdvReac Type Severity Reaction Status Date / Time amlodipine Allergy Swelling Verified 08/18/21 11:22 amoxicillin Allergy Anaphylaxis Verified 08/18/21 11:22 cephalexin monohydrate Allergy Rash/Hives Verified 08/18/21 11:22 [From Keflex] clindamycin Allergy Rash/Hives Verified 08/18/21 11:22 Penicillins Allergy Rash/Hives Verified 08/18/21 11:22 Sulfa (Sulfonamide Allergy Anaphylaxis Verified 08/18/21 11:22 Antibiotics) sulfamethoxazole Allergy Anaphylaxis Verified 08/18/21 11:22 [From Bactrim] trimethoprim [From Bactrim] Allergy Anaphylaxis Verified 08/18/21 11:22 carvedilol AdvReac "MAKES ME Verified 08/18/21 11:22 LOONEY" Review of Systems ROS Statement: Those systems with pertinent positive or pertinent negative responses have been documented in the HPI. ROS Other: All systems not noted in ROS Statement are negative. Past Medical History Past Medical History: Atrial Fibrillation, Coronary Artery Disease (CAD), Chest Pain / Angina, Heart Failure, COPD, Diabetes Mellitus, GERD/Reflux, Hyperlipidemia, Hypertension, Liver Disease, Myocardial Infarction ([place]), Prostate Disorder, Renal Disease, Skin Disorder, Vascular Disorder Additional Past Medical History / Comment(s): history ofAfib with RVR, tachybrady syndrome with pacemaker, IDDM type II, neuropathy bilateral feet, stage III chronic kidney disease, chronic CHF, R pleural effusion, liver cirrhosis, BPH, DJD, herniated discs low back, chronic low back pain, varicose veins , anemia with hx of iron infusions., past asbestos exposure, celiac disease, dermatitis herpetiformis. Last Myocardial Infarction Date:: 06/2018 History of Any Multi-Drug Resistant Organisms: None Reported Past Surgical History: Ablation, Cardiac Ablation, Cholecystectomy, Heart Catheterization With Stent, Pacemaker, Tonsillectomy Additional Past Surgical History / Comment(s): PCI with STENTS x 3, bilateral cataracts removed with lens implants, colonoscopy, [employer] pacemaker Past Anesthesia/Blood Transfusion Reactions: No Reported Reaction Date of Last Stent Placement:: 2017 Type of Cardiac Device: Permanent Pacemaker Device Placement Date:: 02/02/19 Past Psychological History: No Psychological Hx Reported Smoking Status: Former smoker Past Alcohol Use History: None Reported Past Drug Use History: None Reported - Past Family History Mother Family Medical History: Diabetes Mellitus Father Family Medical History: Myocardial Infarction ([place]) Additional Family Medical History / Comment(s): Father had a [place] in his 70s. Brother(s) Family Medical History: Myocardial Infarction ([place]) Additional Family Medical History / Comment(s): Brother had a KS in his 50s. General Exam - General Exam Comments Initial Comments: GENERAL: Patient is well-developed and well-nourished. Patient is nontoxic and well- hydrated and is in mild distress. ENT: Neck is soft and supple. No significant lymphadenopathy is noted. Oropharynx is clear. Moist mucous membranes. Neck has full range of motion without eliciting any pain. EYES: The sclera were anicteric and conjunctiva were pink and moist. Extraocular movements were intact and pupils were equal round and reactive to light. Eyelids were unremarkable. PULMONARY: Unlabored respirations. Good breath sounds bilaterally. No audible rales rhonchi or wheezing was noted. CARDIOVASCULAR: There is a regular rate and rhythm without any murmurs gallops or rubs. ABDOMEN: Soft and nontender with normal bowel sounds. SKIN: Skin is clear with no lesions or rashes and otherwise unremarkable. NEUROLOGIC: Patient is alert and oriented x3. Cranial nerves II through XII are grossly intact. Motor and sensory are also intact. Normal speech, volume and content. Symmetrical smile. MUSCULOSKELETAL: Normal extremities with adequate strength and full range of motion. 1+ LYMPHATICS: No significant lymphadenopathy is noted PSYCHIATRIC: Normal psychiatric evaluation. Limitations: no limitations Course Vital Signs 08/18/21 08/18/21 08/18/21 08:50 09:00 09:32 Temperature 97.6 F Pulse Rate 62 60 58 L Respiratory 24 14 Rate Blood Pressure 129/71 129/71 O2 Sat by Pulse 96 97 Oximetry 08/18/21 08/18/21 08/18/21 09:53 10:00 11:26 Temperature Pulse Rate 60 59 L 70 Respiratory 14 20 Rate Blood Pressure 133/71 O2 Sat by Pulse 96 94 L Oximetry Medical Decision Making - Medical Decision Making EKG shows sinus rhythm at 60 bpm MI interval is 212 QRS is 132 QT interval is 500 QTC is 507. Patient's EKG shows some lateral T-wave inversions these are seen her previous EKG. Chest x-ray is stable. I spoke with cardiology they came down and saw the patient and agreed to admit the patient. I spoke with Dr. Link he agreed to admit the patient admitted the patient admitting orders I consult cardiology. - Lab Data Result diagrams: 08/18/21 08:53 08/18/21 08:53 Lab Results 08/18/21 08/18/21 08/18/21 Range/Units 08:53 08:53 08:53 WBC 13.9 H (3.8-10.6) k/uL RBC 3.82 L (4.30-5.90) m/uL Hgb 12.1 L (13.0-17.5) gm/dL Hct 37.4 L (39.0-53.0) % MCV 98.1 (80.0-100.0) fL MCH 31.7 (25.0-35.0) pg MCHC 32.3 (31.0-37.0) g/dL RDW 14.6 (11.5-15.5) % Plt Count 225 (150-450) k/uL MPV 9.3 Neutrophils % 90 % Lymphocytes % 3 % Monocytes % 5 % Eosinophils % 1 % Basophils % 0 % Neutrophils # 12.6 H (1.3-7.7) k/uL Lymphocytes # 0.5 L (1.0-4.8) k/uL Monocytes # 0.7 (0-1.0) k/uL Eosinophils # 0.1 (0-0.7) k/uL Basophils # 0.0 (0-0.2) k/uL PT 10.3 (9.0-12.0) sec INR 1.0 (<1.2) APTT 23.0 (22.0-30.0) sec Sodium 136 L (137-145) mmol/L Potassium 3.7 (3.5-5.1) mmol/L Chloride 96 L (98-107) mmol/L Carbon Dioxide 31 H (22-30) mmol/L Anion Gap 9 mmol/L BUN 44 H (9-20) mg/dL Creatinine 1.86 H (0.66-1.25) mg/dL Est GFR (CKD-EPI)AfAm 43 (>60 ml/min/1.73 sqM) Est GFR (CKD-EPI)NonAf 37 (>60 ml/min/1.73 sqM) Glucose 238 H (74-99) mg/dL Plasma Lactic Acid Roge (0.7-2.0) mmol/L Calcium 9.0 (8.4-10.2) mg/dL Magnesium 2.1 (1.6-2.3) mg/dL Total Bilirubin 1.4 H (0.2-1.3) mg/dL AST 102 H (17-59) U/L ALT 162 H (4-49) U/L Alkaline Phosphatase 297 H (38-126) U/L Troponin I (0.000-0.034) ng/mL NT-Pro-B Natriuret Pep pg/mL Total Protein 6.2 L (6.3-8.2) g/dL Albumin 3.4 L (3.5-5.0) g/dL Urine Color Urine Appearance (Clear) Urine pH (5.0-8.0) Ur Specific Martin (1.001-1.035) Urine Protein (Negative) Urine Glucose (UA) (Negative) Urine Ketones (Negative) Urine Blood (Negative) Urine Nitrite (Negative) Urine Bilirubin (Negative) Urine Urobilinogen (<2.0) mg/dL Ur Leukocyte Esterase (Negative) Urine WBC (0-5) /hpf 08/18/21 08/18/21 08/18/21 Range/Units 08:53 08:53 08:53 WBC (3.8-10.6) k/uL RBC (4.30-5.90) m/uL Hgb (13.0-17.5) gm/dL Hct (39.0-53.0) % MCV (80.0-100.0) fL MCH (25.0-35.0) pg MCHC (31.0-37.0) g/dL RDW (11.5-15.5) % Plt Count (150-450) k/uL MPV Neutrophils % % Lymphocytes % % Monocytes % % Eosinophils % % Basophils % % Neutrophils # (1.3-7.7) k/uL Lymphocytes # (1.0-4.8) k/uL Monocytes # (0-1.0) k/uL Eosinophils # (0-0.7) k/uL Basophils # (0-0.2) k/uL PT (9.0-12.0) sec INR (<1.2) APTT (22.0-30.0) sec Sodium (137-145) mmol/L Potassium (3.5-5.1) mmol/L Chloride (98-107) mmol/L Carbon Dioxide (22-30) mmol/L Anion Gap mmol/L BUN (9-20) mg/dL Creatinine (0.66-1.25) mg/dL Est GFR (CKD-EPI)AfAm (>60 ml/min/1.73 sqM) Est GFR (CKD-EPI)NonAf (>60 ml/min/1.73 sqM) Glucose (74-99) mg/dL Plasma Lactic Acid Roge 2.3 H* (0.7-2.0) mmol/L Calcium (8.4-10.2) mg/dL Magnesium (1.6-2.3) mg/dL Total Bilirubin (0.2-1.3) mg/dL AST (17-59) U/L ALT (4-49) U/L Alkaline Phosphatase (38-126) U/L Troponin I 0.043 H* (0.000-0.034) ng/mL NT-Pro-B Natriuret Pep 5170 pg/mL Total Protein (6.3-8.2) g/dL Albumin (3.5-5.0) g/dL Urine Color Urine Appearance (Clear) Urine pH (5.0-8.0) Ur Specific Martin (1.001-1.035) Urine Protein (Negative) Urine Glucose (UA) (Negative) Urine Ketones (Negative) Urine Blood (Negative) Urine Nitrite (Negative) Urine Bilirubin (Negative) Urine Urobilinogen (<2.0) mg/dL Ur Leukocyte Esterase (Negative) Urine WBC (0-5) /hpf 08/18/21 Range/Units 09:13 WBC (3.8-10.6) k/uL RBC (4.30-5.90) m/uL Hgb (13.0-17.5) gm/dL Hct (39.0-53.0) % MCV (80.0-100.0) fL MCH (25.0-35.0) pg MCHC (31.0-37.0) g/dL RDW (11.5-15.5) % Plt Count (150-450) k/uL MPV Neutrophils % % Lymphocytes % % Monocytes % % Eosinophils % % Basophils % % Neutrophils # (1.3-7.7) k/uL Lymphocytes # (1.0-4.8) k/uL Monocytes # (0-1.0) k/uL Eosinophils # (0-0.7) k/uL Basophils # (0-0.2) k/uL PT (9.0-12.0) sec INR (<1.2) APTT (22.0-30.0) sec Sodium (137-145) mmol/L Potassium (3.5-5.1) mmol/L Chloride (98-107) mmol/L Carbon Dioxide (22-30) mmol/L Anion Gap mmol/L BUN (9-20) mg/dL Creatinine (0.66-1.25) mg/dL Est GFR (CKD-EPI)AfAm (>60 ml/min/1.73 sqM) Est GFR (CKD-EPI)NonAf (>60 ml/min/1.73 sqM) Glucose (74-99) mg/dL Plasma Lactic Acid Roge (0.7-2.0) mmol/L Calcium (8.4-10.2) mg/dL Magnesium (1.6-2.3) mg/dL Total Bilirubin (0.2-1.3) mg/dL AST (17-59) U/L ALT (4-49) U/L Alkaline Phosphatase (38-126) U/L Troponin I (0.000-0.034) ng/mL NT-Pro-B Natriuret Pep pg/mL Total Protein (6.3-8.2) g/dL Albumin (3.5-5.0) g/dL Urine Color Yellow Urine Appearance Clear (Clear) Urine pH 7.0 (5.0-8.0) Ur Specific Martin 1.010 (1.001-1.035) Urine Protein 1+ H (Negative) Urine Glucose (UA) 1+ H (Negative) Urine Ketones Negative (Negative) Urine Blood Negative (Negative) Urine Nitrite Negative (Negative) Urine Bilirubin Negative (Negative) Urine Urobilinogen <2.0 (<2.0) mg/dL Ur Leukocyte Esterase Negative (Negative) Urine WBC <1 (0-5) /hpf Disposition Clinical Impression: Dyspnea, COPD with acute exacerbation Disposition: ADMITTED IP TO THIS [facility] Referrals: Ivy Valentine DO [Primary Care Provider] - 1-2 days Time of Disposition: 11:58
--- NOTE | 2021-08-18 09:30 | XR ---
EXAMINATION TYPE: XR chest 2V DATE OF EXAM: 08/18/2021 COMPARISON: Chest x-ray [address] July 25, 2021. HISTORY: Difficulty in breathing. Recent pneumonia. TECHNIQUE: Frontal and lateral views of the chest are obtained. FINDINGS: There is persistent elevated right hemidiaphragm. Cardiac silhouette size is stable and mi ldly enlarged with dual lead pacemaker redemonstrated. Persistent right upper lung pneumonic consolid ation. Persistent left mid to lower lung opacity with air bronchograms. Persistent right basilar opac ity. Tiny bilateral pleural effusions on lateral x-ray redemonstrated. Osseous structures are intact. IMPRESSION: Persistent bilateral multifocal pneumonic infiltrates. Some improved right basilar findi ngs noted otherwise no significant change from most recent x-ray.
[2021-08-18 09:35] LABS: Appearance,Urine Clear (Clear); Bilirubin,Urine Negative (Negative); Blood,Urine Negative (Negative); Color,Urine Yellow; Glucose,Urine (UA) 1+ (Negative); Ketones,Urine Negative (Negative); Leukocyte Esterase,Urine Negative (Negative); Nitrite,Urine Negative (Negative); Protein,Urine 1+ (Negative); Urobilinogen,Urine <2.0 mg/dL (<2.0); WBC,Urine <1 /hpf (0-5)
[2021-08-18 09:38] LABS: Prothrombin Time 10.3 sec (9.0-12.0)
[2021-08-18 09:45] LABS: Albumin 3.4 g/dL (3.5-5.0); Magnesium 2.1 mg/dL (1.6-2.3); Potassium 3.7 mmol/L (3.5-5.1); Total Bilirubin 1.4 mg/dL (0.2-1.3); Total Protein 6.2 g/dL (6.3-8.2)
[2021-08-18] MEDS ORDERED: IPRATROPIUM-ALBUTEROL 3 ML NEB INHALATION PRN (12:00)
[2021-08-18 12:15] LABS: Glucose,Whole Blood 244 mg/dL (75-99)
[2021-08-18] MEDS ORDERED: NITROGLYCERIN SL TABS 0.4 MG TAB SUBLINGUAL PRN (13:00)
[2021-08-18] MEDS ORDERED: FLUTICASONE 50MCG/SPRAY NASAL 16GM EA NOSTRIL PRN (13:00)
[2021-08-18] MEDS ORDERED: methylPREDNISolone SOD SUCCI 125 MG/2 ML VIAL IV SCH (13:00)
--- NOTE | 2021-08-18 13:14 | P.HPIM ---
History of Present Illness Patient is a pleasant 66-year-old male with known history of can start failure chronic diastolic dysfunction, COPD uses 3 L of oxygen at home and chronic kidney disease age 4 with baseline creatinine of around 2 came in with the com plaints of increasing weight gain and water retention and patient usually takes 40 mg of Lasix twice a day. He is presently using 4 L is complaining of orthopnea and paroxysmal dyspnea chest x-ray showed bilateral infiltrates patient does have leukocytosis no fever, COVID-19 BCR is being ordered troponin is minimally elevated. Patient is being admitted with cardiology consult. He was comparing of orthopnea paroxysmal nocturnal dyspnea denied any significant cough REVIEW OF SYSTEMS: CONSTITUTIONAL: No fever, no malaise, no fatigue. HEENT: No recent visual problems or hearing problems. Denied any sore throat. CARDIOVASCULAR: No chest pain, , no palpitations, no syncope. PULMONARY: no cough, no hemoptysis. GASTROINTESTINAL: No diarrhea, no nausea, no vomiting, no abdominal pain. NEUROLOGICAL: No headaches, no weakness, no numbness. HEMATOLOGICAL: Denies any bleeding or petechiae. GENITOURINARY: Denies any burning micturition, frequency, or urgency. MUSCULOSKELETAL/RHEUMATOLOGICAL: Denies any joint pain, swelling, or any muscle pain. ENDOCRINE: Denies any polyuria or polydipsia. The rest of the 14-point review of systems is negative. PHYSICAL EXAMINATION: GENERAL: The patient is alert and oriented x3, not in any acute distress. Well developed, well nourished. HEENT: Pupils are round and equally reacting to light. EOMI. No scleral icterus. No conjunctival pallor. Normocephalic, atraumatic. No pharyngeal erythema. No thyromegaly. CARDIOVASCULAR: S1 and S2 present. No murmurs, rubs, or gallops. PULMONARY: Chest is clear to auscultation, no wheezing or crackles. ABDOMEN: Soft, nontender, nondistended, normoactive bowel sounds. No palpable organomegaly. MUSCULOSKELETAL: No joint swelling or deformity. EXTREMITIES: No cyanosis, clubbing, mild lower extremity bilateral pedal edema NEUROLOGICAL: Gross neurological examination did not reveal any focal deficits. SKIN: No rashes. Assessment and plan -Acute on chronic hypoxic respiratory failure: Secondary to possible pulmonary edema can start failure exacerbation patient will be can you done IV Lasix which was started in ER. We'll recheck his basic metabolic profile and kidney function tomorrow, possibly of COVID-19 is low but the will obtain COVID-19 BCR considering significant bilateral infiltrates clinically no evidence of pneumonia at this time -Leukocytosis reactive in nature -Chronic kidney disease stage IV -COPD without any acute exacerbation -Patient has a suspected lung nodule/mass for which patient is supposed to get a PET scan on August 06, need to verify whether the he got the scan him at this -Persistent atrial fibrillation patient is rate controlled and patient is on xarelto which will be continued -6 sinus syndrome with a permanent pacemaker -Coronary artery disease Hypertension -Hyperlipidemia DVT prophylaxis:on Xarelto Past Medical History Past Medical History: Atrial Fibrillation, Coronary Artery Disease (CAD), Chest Pain / Angina, Heart Failure, COPD, Diabetes Mellitus, GERD/Reflux, Hyperlipidemia, Hypertension, Liver Disease, Myocardial Infarction ([place]), Prostate Disorder, Renal Disease, Skin Disorder, Vascular Disorder Additional Past Medical History / Comment(s): history ofAfib with RVR, tachybrady syndrome with pacemaker, IDDM type II, neuropathy bilateral feet, stage III chronic kidney disease, chronic CHF, R pleural effusion, liver cirrhosis, BPH, DJD, herniated discs low back, chronic low back pain, varicose veins , anemia with hx of iron infusions., past asbestos exposure, celiac disease, dermatitis herpetiformis. Last Myocardial Infarction Date:: 06/2018 History of Any Multi-Drug Resistant Organisms: None Reported Past Surgical History: Ablation, Cardiac Ablation, Cholecystectomy, Heart Cathet erization With Stent, Pacemaker, Tonsillectomy Additional Past Surgical History / Comment(s): PCI with STENTS x 3, bilateral cataracts removed with lens implants, colonoscopy, [employer]tr[employer] pacemaker Past Anesthesia/Blood Transfusion Reactions: No Reported Reaction Date of Last Stent Placement:: 2017 Type of Cardiac Device: Permanent Pacemaker Device Placement Date:: 02/02/19 Past Psychological History: No Psychological Hx Reported Smoking Status: Former smoker Past Alcohol Use History: None Reported Past Drug Use History: None Reported - Past Family History Mother Family Medical History: Diabetes Mellitus Father Family Medical History: Myocardial Infarction ([place]) Additional Family Medical History / Comment(s): Father had a [place] in his 70s. Brother(s) Family Medical History: Myocardial Infarction ([place]) Additional Family Medical History / Comment(s): Brother had a [place] in his 50s. Medications and Allergies Home Medications Medication Instructions Recorded Confirmed Type Fluticasone Nasal [place] [Flonase 1 spr EA NOSTRIL DAILY PRN 05/12/16 08/18/21 History Nasal [place]] Isosorbide Mononitrate ER [Imdur] 30 mg PO DAILY 01/16/19 08/18/21 History Pantoprazole [Protonix] 40 mg PO DAILY 01/16/19 08/18/21 History Montelukast [Singulair] 10 mg PO HS 02/12/19 08/18/21 History Loratadine [Claritin] 10 mg PO DAILY 03/28/19 08/18/21 History Metoprolol Tartrate [Lopressor] 50 mg PO BID 03/28/19 08/18/21 History Furosemide [Lasix] 40 mg PO BID@0900,1600 #60 tab 04/10/19 08/18/21 Rx Vitamin B Complex 1 cap PO DAILY 06/24/19 08/18/21 History allopurinoL [Zyloprim] 100 mg PO BID 06/24/19 08/18/21 History Ubidecarenone [Co Q-10] 100 mg PO DAILY 08/01/19 08/18/21 History Pravastatin Sodium [Pravachol] 20 mg PO DAILY 11/11/19 08/18/21 History Albuterol Sulfate [Ventolin HFA] 1 - 2 puff INHALATION RT-Q6H PRN 07/25/21 08/18/21 History Fluticasone/Salmeterol 1 puff INHALATION Q48H 07/25/21 08/18/21 History [Fluticasone-Salmeterol 232-14] Folic Acid 0.4 mg PO DAILY 07/25/21 08/18/21 History Magnesium Oxide [Goss] 500 mg PO DAILY 07/25/21 08/18/21 History dilTIAZem HCL 90 mg PO BID 07/25/21 08/18/21 History hydrALAZINE HCL [Apresoline] 100 mg PO TID 07/25/21 08/18/21 History Nitroglycerin Sl Tabs [Nitrostat] 0.4 mg SL Q5M PRN 07/26/21 08/18/21 History Ipratropium-Albuterol Nebulize 3 ml INHALATION RT-QID 30 Days #90 07/30/21 08/18/21 Rx [Duoneb 0.5 mg-3 mg/3 ml Soln] ml Lactobacillus Acidoph & Bulgar 1 packet PO DAILY 30 Days #30 07/30/21 08/18/21 Rx [Lactinex] packet Insulin Detemir (Levemir) [Levemir] 48 unit SQ HS 08/04/21 08/18/21 History Insulin Lispro [humaLOG] See Protocol SQ AC-TID 08/04/21 08/18/21 History Ferrous Gluconate [Fergon] 225 mg PO DAILY 08/06/21 08/18/21 History Aspirin 81 mg PO DAILY #30 08/09/21 08/18/21 Rx Sodium Chloride 0.65% Nasal [Deep 2 spray NASAL QID PRN #7 ml 08/09/21 08/18/21 Rx Sea (Saline)] Spironolactone [Aldactone] 12.5 mg PO DAILY #30 tab 08/09/21 08/18/21 Rx Temazepam [Restoril] 15 mg PO HS PRN #10 cap 08/09/21 08/18/21 Rx Cholecalciferol [Vitamin D3 (25 75 mcg PO DAILY 08/18/21 08/18/21 History Mcg = 1000 Iu)] Flecainide Acetate 100 mg PO BID 08/18/21 08/18/21 History Rivaroxaban [Xarelto] 15 mg PO DIRECTED 08/18/21 08/18/21 History Allergies Allergy/AdvReac Type Severity Reaction Status Date / Time amlodipine Allergy Swelling Verified 08/18/21 11:22 amoxicillin Allergy Anaphylaxis Verified 08/18/21 11:22 cephalexin monohydrate Allergy Rash/Hives Verified 08/18/21 11:22 [From Keflex] clindamycin Allergy Rash/Hives Verified 08/18/21 11:22 Penicillins Allergy Rash/Hives Verified 08/18/21 11:22 Sulfa (Sulfonamide Allergy Anaphylaxis Verified 08/18/21 11:22 Antibiotics) sulfamethoxazole Allergy Anaphylaxis Verified 08/18/21 11:22 [From Bactrim] trimethoprim [From Bactrim] Allergy Anaphylaxis Verified 08/18/21 11:22 carvedilol AdvReac "MAKES ME Verified 08/18/21 11:22 JERILYN" Physical Exam Vitals: Vital Signs Temp Pulse Resp BP Pulse Ox 08/18/21 11:26 70 20 94 L 08/18/21 10:00 59 L 14 133/71 96 08/18/21 09:53 60 08/18/21 09:32 58 L 08/18/21 09:00 60 14 129/71 97 08/18/21 08:50 97.6 F 62 24 129/71 96 Intake and Output 08/17/21 08/18/21 08/18/21 22:59 06:59 14:59 Other: Weight 85.275 kg Results CBC & Chem 7: 08/18/21 08:53 08/18/21 08:53 Labs: Abnormal Lab Results - Last 24 Hours (Table) 08/18/21 08/18/21 08/18/21 Range/Units 08:53 08:53 08:53 WBC 13.9 H (3.8-10.6) k/uL RBC 3.82 L (4.30-5.90) m/uL Hgb 12.1 L (13.0-17.5) gm/dL Hct 37.4 L (39.0-53.0) % Neutrophils # 12.6 H (1.3-7.7) k/uL Lymphocytes # 0.5 L (1.0-4.8) k/uL Sodium 136 L (137-145) mmol/L Chloride 96 L (98-107) mmol/L Carbon Dioxide 31 H (22-30) mmol/L BUN 44 H (9-20) mg/dL Creatinine 1.86 H (0.66-1.25) mg/dL Glucose 238 H (74-99) mg/dL POC Glucose (mg/dL) (75-99) mg/dL Plasma Lactic Acid Roge 2.3 H* (0.7-2.0) mmol/L Total Bilirubin 1.4 H (0.2-1.3) mg/dL AST 102 H (17-59) U/L ALT 162 H (4-49) U/L Alkaline Phosphatase 297 H (38-126) U/L Troponin I (0.000-0.034) ng/mL Total Protein 6.2 L (6.3-8.2) g/dL Albumin 3.4 L (3.5-5.0) g/dL Urine Protein (Negative) Urine Glucose (UA) (Negative) 08/18/21 08/18/21 08/18/21 Range/Units 08:53 09:13 12:12 WBC (3.8-10.6) k/uL RBC (4.30-5.90) m/uL Hgb (13.0-17.5) gm/dL Hct (39.0-53.0) % Neutrophils # (1.3-7.7) k/uL Lymphocytes # (1.0-4.8) k/uL Sodium (137-145) mmol/L Chloride (98-107) mmol/L Carbon Dioxide (22-30) mmol/L BUN (9-20) mg/dL Creatinine (0.66-1.25) mg/dL Glucose (74-99) mg/dL POC Glucose (mg/dL) 244 H (75-99) mg/dL Plasma Lactic Acid Roge (0.7-2.0) mmol/L Total Bilirubin (0.2-1.3) mg/dL AST (17-59) U/L ALT (4-49) U/L Alkaline Phosphatase (38-126) U/L Troponin I 0.043 H* (0.000-0.034) ng/mL Total Protein (6.3-8.2) g/dL Albumin (3.5-5.0) g/dL Urine Protein 1+ H (Negative) Urine Glucose (UA) 1+ H (Negative)
--- NOTE | 2021-08-18 13:23 | P.CRDCN ---
History of Present Illness History of present illness: HISTORY OF PRESENTING ILLNESS This is a pleasant 66-year-old male past medical history significant for coronary artery disease s/p PCI diagonal branch and circumflex, paroxysmal atrial fibrillation on xarelto, sick sinus syndrome s/p PPM, diabetes mellitus, chronic kidney disease, hypertension, diastolic heart failure, COPD and former nicotine dependence. He follows in the office with Dr. Morgan. We have been asked to see in consultation for shortness of breath. He states yesterday in the morning he felt in his usual state of health but then as the day went on he started feeling short of breath. By the evening time he states he could not breath at all. He came to ER this morning for further evaluation. He states over the past 1-week he has noticed a 7lb weight gain with 3 lbs just overnight. He was given a dose of IV lasix and IV solumedrol along with some oxygen. He states his breathing has improved but he is concerned how he is going to get home without oxygen. EKG reveals sinus rhythm with ST depression noted laterally and first degree AV block. Consistent with previous EKG's. Chest xray reveals persistent bilateral multifocal pneumonic infiltrates, some improvement of the right basilar findings compared to previous study. Laboratory data reviewed, WBC 13.9, hemoglobin 12.1, platelets 225, sodium 136, potassium 3.7, creatinine 1.86, troponin 0.046, lactic acid 2.3, NT proBNP 5170 and magnesium 2.1. Most recent echocardiogram obtained 06/2021 revealed preserved LV systolic function with ejection fraction 55-60%, mild aortic stenosis with a mean gradient of 10 mmHg, mild MR and mild TR noted. REVIEW OF SYSTEMS At the time of my exam: CONSTITUTIONAL: Denies fever or chills. CARDIOVASCULAR: Denies chest pain, shortness of breath, orthopnea, PND or palpitations. RESPIRATORY: Denies cough. GASTROINTESTINAL: Denies abdominal pain, diarrhea, constipation, nausea or vomiting. MUSCULOSKELETAL: Denies myalgias. NEUROLOGIC: Denies numbness, tingling, headache or weakness. ENDOCRINE: Denies fatigue, weight change, polydipsia or polyurina. GENITOURINARY: Denies burning, hematuria or urgency with micturation. HEMATOLOGIC: Denies history of anemia or bleeding. PHYSICAL EXAMINATION Blood pressure 133/71 heart rate 70 afebrile and maintaining oxygen saturation on nasal cannula. CONSTITUTIONAL: No apparent distress. HEENT: Head is normocephalic. Pupils are equal, round. Sclerae anicteric. Mucous membranes of the mouth are moist. No JVD. No carotid bruit. CHEST EXAMINATION: Lungs are clear to auscultation. No chest wall tenderness is noted on palpation or with deep breathing. HEART EXAMINATION: Regular rate and rhythm. S1, S2 heard. No murmurs, gallops or rub. ABDOMEN: Soft, nontender. EXTREMITIES: 2+ peripheral pulses, 1+ bilateral lower extremity pitting edema and no calf tenderness. NEUROLOGIC EXAMINATION: Patient is awake, alert and oriented x3. ASSESSMENT Acute on chronic diastolic heart failure Paroxysmal atrial fibrillation on xarelot, currently in SR. Coronary artery disease s/p PCI COPD Chronic kidney disease Chronically elevated troponin secondary to CKD Hypertension Diabetes mellitus PLAN Discussed with the patient the chronicity of his health problems. Lengthy discussion regarding home oxygen and it use. Overall recommended he can be discharged home and take an additional dose of PO lasix tomorrow and Monday. Him and his feel more comfortable where he can be monitored closely in hospital. Discussed with Dr. Wright and he will admit him for IV diuresis. Document accurate intake and output along with daily weights. Further recommendations to follow. Thank you kindly for this consultation. Nurse Practitioner note has been reviewed, I agree with a documented findings and plan of care. Patient was seen and examined. Past Medical History Past Medical History: Atrial Fibrillation, Coronary Artery Disease (CAD), Chest Pain / Angina, Heart Failure, COPD, Diabetes Mellitus, GERD/Reflux, Hyperlipidemia, Hypertension, Liver Disease, Myocardial Infarction ([place]), Prostate Disorder, Renal Disease, Skin Disorder, Vascular Disorder Additional Past Medical History / Comment(s): history ofAfib with RVR, tachybrady syndrome with pacemaker, IDDM type II, neuropathy bilateral feet, stage III chronic kidney disease, chronic CHF, R pleural effusion, liver cirrhosis, BPH, DJD, herniated discs low back, chronic low back pain, varicose veins , anemia with hx of iron infusions., past asbestos exposure, celiac disease, dermatitis herpetiformis. Last Myocardial Infarction Date:: 06/2018 History of Any Multi-Drug Resistant Organisms: None Reported Past Surgical History: Ablation, Cardiac Ablation, Cholecystectomy, Heart Catheterization With Stent, Pacemaker, Tonsillectomy Additional Past Surgical History / Comment(s): PCI with STENTS x 3, bilateral cataracts removed with lens implants, colonoscopy, [employer]tr[employer] pacemaker Past Anesthesia/Blood Transfusion Reactions: No Reported Reaction Date of Last Stent Placement:: 2017 Type of Cardiac Device: Permanent Pacemaker Device Placement Date:: 02/02/19 Past Psychological History: No Psychological Hx Reported Smoking Status: Former smoker Past Alcohol Use History: None Reported Past Drug Use History: None Reported - Past Family History Mother Family Medical History: Diabetes Mellitus Father Family Medical History: Myocardial Infarction ([place]) Additional Family Medical History / Comment(s): Father had a [place] in his 70s. Brother(s) Family Medical History: Myocardial Infarction ([place]) Additional Family Medical History / Comment(s): Brother had a [place] in his 50s. Medications and Allergies Home Medications Medication Instructions Recorded Confirmed Type Fluticasone Nasal [place] [Flonase 1 spr EA NOSTRIL DAILY PRN 05/12/16 08/18/21 History Nasal [place]] Isosorbide Mononitrate ER [Imdur] 30 mg PO DAILY 01/16/19 08/18/21 History Pantoprazole [Protonix] 40 mg PO DAILY 01/16/19 08/18/21 History Montelukast [Singulair] 10 mg PO HS 02/12/19 08/18/21 History Loratadine [Claritin] 10 mg PO DAILY 03/28/19 08/18/21 History Metoprolol Tartrate [Lopressor] 50 mg PO BID 03/28/19 08/18/21 History Furosemide [Lasix] 40 mg PO BID@0900,1600 #60 tab 04/10/19 08/18/21 Rx Vitamin B Complex 1 cap PO DAILY 06/24/19 08/18/21 History allopurinoL [Zyloprim] 100 mg PO BID 06/24/19 08/18/21 History Ubidecarenone [Co Q-10] 100 mg PO DAILY 08/01/19 08/18/21 History Pravastatin Sodium [Pravachol] 20 mg PO DAILY 11/11/19 08/18/21 History Albuterol Sulfate [Ventolin HFA] 1 - 2 puff INHALATION RT-Q6H PRN 07/25/21 08/18/21 History Fluticasone/Salmeterol 1 puff INHALATION Q48H 07/25/21 08/18/21 History [Fluticasone-Salmeterol 232-14] Folic Acid 0.4 mg PO DAILY 07/25/21 08/18/21 History Magnesium Oxide [Goss] 500 mg PO DAILY 07/25/21 08/18/21 History dilTIAZem HCL 90 mg PO BID 07/25/21 08/18/21 History hydrALAZINE HCL [Apresoline] 100 mg PO TID 07/25/21 08/18/21 History Nitroglycerin Sl Tabs [Nitrostat] 0.4 mg SL Q5M PRN 07/26/21 08/18/21 History Ipratropium-Albuterol Nebulize 3 ml INHALATION RT-QID 30 Days #90 07/30/21 08/18/21 Rx [Duoneb 0.5 mg-3 mg/3 ml Soln] ml Lactobacillus Acidoph & Bulgar 1 packet PO DAILY 30 Days #30 07/30/21 08/18/21 Rx [Lactinex] packet Insulin Detemir (Levemir) [Levemir] 48 unit SQ HS 08/04/21 08/18/21 History Insulin Lispro [humaLOG] See Protocol SQ AC-TID 08/04/21 08/18/21 History Ferrous Gluconate [Fergon] 225 mg PO DAILY 08/06/21 08/18/21 History Aspirin 81 mg PO DAILY #30 08/09/21 08/18/21 Rx Sodium Chloride 0.65% Nasal [Deep 2 spray NASAL QID PRN #7 ml 08/09/21 08/18/21 Rx Sea (Saline)] Spironolactone [Aldactone] 12.5 mg PO DAILY #30 tab 08/09/21 08/18/21 Rx Temazepam [Restoril] 15 mg PO HS PRN #10 cap 08/09/21 08/18/21 Rx Cholecalciferol [Vitamin D3 (25 75 mcg PO DAILY 08/18/21 08/18/21 History Mcg = 1000 Iu)] Flecainide Acetate 100 mg PO BID 08/18/21 08/18/21 History Rivaroxaban [Xarelto] 15 mg PO DIRECTED 08/18/21 08/18/21 History Allergies Allergy/AdvReac Type Severity Reaction Status Date / Time amlodipine Allergy Swelling Verified 08/18/21 11:22 amoxicillin Allergy Anaphylaxis Verified 08/18/21 11:22 cephalexin monohydrate Allergy Rash/Hives Verified 08/18/21 11:22 [From Keflex] clindamycin Allergy Rash/Hives Verified 08/18/21 11:22 Penicillins Allergy Rash/Hives Verified 08/18/21 11:22 Sulfa (Sulfonamide Allergy Anaphylaxis Verified 08/18/21 11:22 Antibiotics) sulfamethoxazole Allergy Anaphylaxis Verified 08/18/21 11:22 [From Bactrim] trimethoprim [From Bactrim] Allergy Anaphylaxis Verified 08/18/21 11:22 carvedilol AdvReac "MAKES ME Verified 08/18/21 11:22 LOONEY" Physical Exam Vitals: Vital Signs Temp Pulse Resp BP Pulse Ox 08/18/21 11:26 70 20 94 L 08/18/21 10:00 59 L 14 133/71 96 08/18/21 09:53 60 08/18/21 09:32 58 L 08/18/21 09:00 60 14 129/71 97 08/18/21 08:50 97.6 F 62 24 129/71 96 Intake and Output 08/17/21 08/18/21 08/18/21 22:59 06:59 14:59 Other: Weight 85.275 kg Results 08/18/21 08:53 08/18/21 08:53 Cardiac Enzymes 08/18/21 08/18/21 Range/Units 08:53 08:53 AST 102 H (17-59) U/L Troponin I 0.043 H* (0.000-0.034) ng/mL Coagulation 08/18/21 Range/Units 08:53 PT 10.3 (9.0-12.0) sec APTT 23.0 (22.0-30.0) sec CBC 08/18/21 Range/Units 08:53 WBC 13.9 H (3.8-10.6) k/uL RBC 3.82 L (4.30-5.90) m/uL Hgb 12.1 L (13.0-17.5) gm/dL Hct 37.4 L (39.0-53.0) % Plt Count 225 (150-450) k/uL Comprehensive Metabolic Panel 08/18/21 Range/Units 08:53 Sodium 136 L (137-145) mmol/L Potassium 3.7 (3.5-5.1) mmol/L Chloride 96 L (98-107) mmol/L Carbon Dioxide 31 H (22-30) mmol/L BUN 44 H (9-20) mg/dL Creatinine 1.86 H (0.66-1.25) mg/dL Glucose 238 H (74-99) mg/dL Calcium 9.0 (8.4-10.2) mg/dL AST 102 H (17-59) U/L ALT 162 H (4-49) U/L Alkaline Phosphatase 297 H (38-126) U/L Total Protein 6.2 L (6.3-8.2) g/dL Albumin 3.4 L (3.5-5.0) g/dL Current Medications Generic Name Dose Route Start Last Admin Trade Name Freq PRN Reason Stop Dose Admin Albuterol/Ipratropium 3 ml 08/18/21 12:00 Ipratropium-Albuterol 3 Ml Neb INHALATION RT-Q4H PRN Shortness Of Breath Or Wheezing Furosemide 40 mg 08/18/21 16:00 Furosemide 10 Mg/Ml 4 Ml Vial IV Q8HR ALONZO Hydralazine HCl 100 mg 08/18/21 16:00 Hydralazine Hcl 50 Mg Tab PO TID ALONZO Methylprednisolone Sodium Succinate 60 mg 08/18/21 13:00 Methylprednisolone Sod Succi 125 Mg/2 Ml Vial IV Q6HR ALONZO Intake and Output 08/17/21 08/18/21 08/18/21 22:59 06:59 14:59 Other: Weight 85.275 kg Patient Weight 08/19/21 06:59 Weight 85.275 kg 08/18/21 08:53 08/18/21 08:53
[2021-08-18] MEDS: INSULIN ASPART (NovoLOG) 100 UNIT/ML VIAL SQ SCH ×3 (13:31→20:12)
[2021-08-18] MEDS: METOPROLOL TARTRATE 50 MG TAB PO SCH ×2 (13:31→20:12)
[2021-08-18] MEDS: IPRATROPIUM-ALBUTEROL 3 ML NEB INHALATION SCH ×2 (15:07→19:27)
[2021-08-18] MEDS: FUROSEMIDE 10 MG/ML 4 ML VIAL IV SCH ×2 (15:28→23:04)
[2021-08-18 16:43] LABS: Glucose,Whole Blood 418 mg/dL (75-99)
[2021-08-18] MEDS: hydrALAZINE HCL 50 MG TAB PO SCH ×2 (16:48→20:54)
[2021-08-18] MEDS ORDERED: TEMAZEPAM 15 MG CAP PO PRN (18:42)
[2021-08-18] MEDS: SYMBICORT 160-4.5 MCG INHALER INHALATION SCH (19:27)
[2021-08-18 20:00] LABS: Glucose,Whole Blood 426 mg/dL (75-99)
[2021-08-18] MEDS: FLECAINIDE 50 MG TAB PO SCH (20:11)
[2021-08-18] MEDS: DILTIAZEM ORAL 30 MG TAB PO SCH (20:11)
[2021-08-18] MEDS: allopurinoL 100 MG TAB PO SCH (20:12)
[2021-08-18] MEDS ORDERED: MONTELUKAST 10 MG TAB PO SCH (21:00)
[2021-08-18] MEDS ORDERED: INSULIN DETEMIR (LEVEMIR) 100 UNIT/ML SYR SQ SCH (21:00)
[2021-08-19 06:09] LABS: Glucose,Whole Blood 307 mg/dL (75-99)
[2021-08-19] MEDS: INSULIN ASPART (NovoLOG) 100 UNIT/ML VIAL SQ SCH ×2 (06:20→12:38)
[2021-08-19 06:23] VITALS: RESP 16
[2021-08-19] MEDS ORDERED: PANTOPRAZOLE 40 MG TABLET PO SCH ×2 (06:30→09:00)
[2021-08-19] MEDS: IPRATROPIUM-ALBUTEROL 3 ML NEB INHALATION SCH ×2 (07:30→11:07)
[2021-08-19 07:31] LABS: Calcium 9.3 mg/dL (8.4-10.2); Potassium 3.9 mmol/L (3.5-5.1)
[2021-08-19] MEDS: SYMBICORT 160-4.5 MCG INHALER INHALATION SCH (07:31)
[2021-08-19] MEDS: hydrALAZINE HCL 50 MG TAB PO SCH (08:36)
[2021-08-19] MEDS: METOPROLOL TARTRATE 50 MG TAB PO SCH (08:36)
[2021-08-19] MEDS: FUROSEMIDE 10 MG/ML 4 ML VIAL IV SCH (08:36)
[2021-08-19] MEDS: allopurinoL 100 MG TAB PO SCH (08:37)
[2021-08-19] MEDS: DILTIAZEM ORAL 30 MG TAB PO SCH (08:37)
[2021-08-19] MEDS: RIVAROXABAN 15 MG TAB PO SCH ×2 (08:37→08:46)
[2021-08-19] MEDS: FLECAINIDE 50 MG TAB PO SCH (08:37)
[2021-08-19] MEDS ORDERED: CHOLECALCIFEROL 25 MCG (1000 IU) TABLET PO SCH (09:00)
[2021-08-19] MEDS ORDERED: SPIRONOLACTONE 25 MG TAB PO SCH (09:00)
[2021-08-19] MEDS ORDERED: PRAVASTATIN SODIUM 20 MG TAB PO SCH (09:00)
[2021-08-19] MEDS ORDERED: ISOSORBIDE MONONITRATE ER 30 MG TAB.ER.24H PO SCH (09:00)
[2021-08-19] MEDS ORDERED: LORATADINE 10 MG TAB PO SCH (09:00)
[2021-08-19] MEDS ORDERED: MAGNESIUM OXIDE 400 MG TAB PO SCH (09:00)
[2021-08-19] MEDS ORDERED: ASPIRIN 81 MG PO SCH (09:00)
[2021-08-19] MEDS ORDERED: NON FORMULARY DRUG (Vitamin B Complex [Vitamin B Complex] 1 EACH Capsule) PO SCH (09:00)
[2021-08-19] MEDS ORDERED: FOLIC ACID 1 MG TAB PO SCH (09:00)
[2021-08-19] MEDS ORDERED: FERROUS SULFATE 325 MG TAB PO SCH (09:00)
--- NOTE | 2021-08-19 10:06 | P.PN ---
Subjective Progress Note Date: 08/19/21 HISTORY OF PRESENT ILLNESS: This is a pleasant 66-year-old male past medical history significant for coronary artery disease s/p PCI diagonal branch and circumflex, paroxysmal atrial fibrillation on xarelto, sick sinus syndrome s/p PPM, diabetes mellitus, chronic kidney disease, hypertension, diastolic heart failure, COPD and former nicotine dependence. He follows in the office with Dr. Morgan. We have been asked to see in consultation for shortness of breath. He states yesterday in the morning he felt in his usual state of health but then as the day went on he sta rted feeling short of breath. By the evening time he states he could not breath at all. He came to ER this morning for further evaluation. He states over the past 1-week he has noticed a 7lb weight gain with 3 lbs just overnight. He was given a dose of IV lasix and IV solumedrol along with some oxygen. He states his breathing has improved but he is concerned how he is going to get home without oxygen. EKG reveals sinus rhythm with ST depression noted laterally and first degree AV block. Consistent with previous EKG's. Chest xray reveals persistent bilateral multifocal pneumonic infiltrates, some improvement of the right basilar findings compared to previous study. Laboratory data reviewed, WBC 13.9, hemoglobin 12.1, platelets 225, sodium 136, potassium 3.7, creatinine 1.86, troponin 0.046, lactic acid 2.3, NT proBNP 5170 and magnesium 2.1. Most recent echocardiogram obtained 06/2021 revealed preserved LV systolic function with ejection fraction 55-60%, mild aortic stenosis with a mean gradient of 10 mmHg, mild MR and mild TR noted. 08/19/2021 Patient examined this morning at the bedside. Patient denies chest pain or pressure. He reports improvement in his shortness of breath in his lower extremity edema. He remains on IV Lasix 40 mg every 8 hours. BUN 48. Creatin ine 1.90. Fluid balance over the last 24 hours is -712 mL. PHYSICAL EXAM: VITAL SIGNS: Reviewed. GENERAL: Well-developed in no acute distress. NECK: Supple. No JVD or thyromegaly LUNGS: Respirations even and unlabored. Lungs essentially clear to auscultation bilaterally. HEART: Regular rate and rhythm. S1 and S2 heard. Systolic murmur noted. EXTREMITIES: Normal range of motion. No clubbing or cyanosis. Peripheral pulses intact. Trace bilateral lower extremity edema ASSESSMENT: Acute on chronic diastolic heart failure Paroxysmal atrial fibrillation on xarelot, currently in SR. Coronary artery disease s/p PCI COPD Chronic kidney disease Chronically elevated troponin secondary to CKD Hypertension Diabetes mellitus PLAN: Discontinue IV lasix Begin oral lasix: 80mg in the AM and 40mg in the afternoon Patient may be discharged home today from a cardiac standpoint Follow up outpatient with Dr. Morgan Nurse practitioner note has been reviewed by physician. Signing provider agrees with the documented findings, assessment, and plan of care. Objective - Vital Signs Vital signs: Vital Signs Temp 98.2 F 08/18/21 20:00 Pulse 72 08/19/21 07:47 Resp 16 08/19/21 07:47 BP 170/87 08/19/21 04:00 Pulse Ox 95 08/19/21 07:32 Intake & Output 08/18/21 08/19/21 08/19/21 18:59 06:59 18:59 Intake Total 240 480 Output Total 952 Balance 240 -952 480 Weight 85.275 kg 85 kg Intake: Oral 240 480 Output: Urine 952 Other: Voiding Method Toilet Urinal # Voids 800 - Labs CBC & Chem 7: 08/18/21 08:53 08/19/21 06:52 Labs: Abnormal Lab Results - Last 24 Hours (Table) 08/18/21 08/18/21 08/18/21 Range/Units 08:53 08:53 12:12 Sodium (137-145) mmol/L Chloride (98-107) mmol/L Carbon Dioxide (22-30) mmol/L BUN (9-20) mg/dL Creatinine (0.66-1.25) mg/dL Glucose (74-99) mg/dL POC Glucose (mg/dL) 244 H (75-99) mg/dL Plasma Lactic Acid Roge 2.3 H* (0.7-2.0) mmol/L Troponin I 0.043 H* (0.000-0.034) ng/mL 08/18/21 08/18/21 08/19/21 Range/Units 16:42 19:40 06:07 Sodium (137-145) mmol/L Chloride (98-107) mmol/L Carbon Dioxide (22-30) mmol/L BUN (9-20) mg/dL Creatinine (0.66-1.25) mg/dL Glucose (74-99) mg/dL POC Glucose (mg/dL) 418 H 426 H 307 H (75-99) mg/dL Plasma Lactic Acid Roge (0.7-2.0) mmol/L Troponin I (0.000-0.034) ng/mL 08/19/21 Range/Units 06:52 Sodium 134 L (137-145) mmol/L Chloride 95 L (98-107) mmol/L Carbon Dioxide 31 H (22-30) mmol/L BUN 48 H (9-20) mg/dL Creatinine 1.90 H (0.66-1.25) mg/dL Glucose 281 H (74-99) mg/dL POC Glucose (mg/dL) (75-99) mg/dL Plasma Lactic Acid Roge (0.7-2.0) mmol/L Troponin I (0.000-0.034) ng/mL
[2021-08-19 10:35] VITALS: TEMP 98
[2021-08-19 11:41] LABS: Glucose,Whole Blood 216 mg/dL (75-99)
[2021-08-19] MEDS ORDERED: INSULIN ASPART (NovoLOG) 100 UNIT/ML VIAL SQ SCH (12:30)
[2021-08-19 12:43] VITALS: BP 140/74; PULSE 77
--- NOTE | 2021-08-19 13:18 | P.DS ---
Providers Date of admission: 08/18/21 12:02 Attending physician: Hiral Link Consults: 08/18/21 12:00 Consult Physician Routine Consulting Provider: Clay Queen Consult Reason/Comments: COPD Do you want consulting provider notified?: Yes Primary care physician: Ivy Valentine Hospital Course: Final diagnoses Acute on chronic diastolic heart failure, with ejection fraction of 55-60% Paroxysmal atrial fibrillation on xarelto, currently in sinus rhythm Coronary artery disease status post PCI Sick sinus syndrome status post permanent pacemaker insertion in January 2019 COPD not in acute exacerbation Chronic kidney disease stage III, baseline, creatinine 1.19, mostly diabetic nephropathy Chronically elevated troponin secondary to chronic kidney disease stage III Hypertension Diabetes mellitus type 2 with hyperglycemia Discharge disposition Patient was discharged home on an increase and Lasix dosing from cardiology services, patient will take 80 mg in the morning and 40 mg at bedtime. Patient was counseled extensively the bedside regarding diet appropriate for the patient in congestive heart failure. Patient does admit to eating foods that are high in sodium and adding additional salt when he is cooking. Patient will follow up with Dr. Morgan in the office, his PCP. Patient is given instructions on discharge regarding appropriate dietary choices low in sodium and alternative f ood options. Hospital course This is a pleasant 66-year-old male with a past medical history is significant for coronary artery disease status post PCI to the diagonal branch and circumflex, proximal A. fib maintained on xarelto, sick sinus syndrome, diabetes mellitus type 2, chronic kidney disease, hypertension, diastolic congestive heart failure, COPD, former nicotine dependence. This is a patient Dr. Morgan in the cardiology office, and follows with Dr. Weldon for PCP. Patient ultimately came to the emergency department stating that he had difficulty breathing last night at 11 PM on 08/17/2021. Patient does have a history for readmission regarding pneumonia 2 times this month and one admission for CHF. 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 Patient difficult to breathing he sat up which helped however he was significant short of breath and came to the EC he denies any fever chills or cough. Patient does have some lower extremity edema that is more than normal. Patient denies any chest pain or palpitations, denies abdominal pain and he denied nausea or vomiting time of admission. Chest x-ray on admission revealed persistent bilateral multifocal pneumonic infiltrates, some improvement in the right basilar findings but otherwise no significant changes are most recent x-ray. White blood cell count is 13.9, hemoglobin 12.1. Electric flail, potassium 3.9, sodium 134, BUN 1.90, creatinine 48, lactic 1.2 patient's BNP was found to be 5170. Patient's troponin was 0.043 which is chronically elevated. Patient's liver enzymes are also elevated AST is 102, AST 162 alk phos 297. He can repeat LABS on an outpatient basis. Urinalysis was negative ankle and it was negative. Patient was evaluated by cardio ALLERGIES services recommended an increase in his Lasix dosing to 80 mg in the morning 40 mg at bedtime. Patient also states that he just started 10 units of Humalog with meals in addition to a sliding scale. His blood sugar on admission was in the 400s, after being treated with insulin and is now 216. His most recent hemoglobin A1c documented was in November 2019 which was 7.7. 08/19/2021 Patient is being discharged home today on an increased dose of Lasix and to follow up with his PCP and cartilage in the office. Patient denies any chest pain or palpitations at the time of my assessment. He denies any nausea vomiting diarrhea, cough or shortness of breath. Patient has any underlying without difficulty on room air. He has remained afebrile, heart rate 70 sinus rhythm, BP 140/74. Patient does have a PET scan schedule outpatient 1245 tomorrow for a lung mass follow-up that he needs. Patient is counseled to continue all her home medications on discharge. Patient was also educated extensively on appropriate diet for patient in congestive heart failure in order to prevent further admissions for fluid overload. Patient and his verbalized understanding regarding a need for change in diet. Lungs are clear at the time my assessment, S1-S2 auscultated with a murmur present. Patient has trace edema in the ankles. He is alert and oriented 3 and neurological assessment is negative for any focal deficits. Please see medication reconciliation for list of current medications. Thank you for allowing us to participate in the care of this patient. Patient Condition at Discharge: Fair Plan - Discharge Summary Discharge Rx Participant: No New Discharge Prescriptions: New Furosemide [Lasix] 40 mg PO DAILY@1600 #30 tab Furosemide [Lasix] 80 mg PO DAILY #30 tab Continue Fluticasone Nasal [place] [Flonase Nasal [place]] 1 spr EA NOSTRIL DAILY PRN PRN Reason: Allergy Symptoms Isosorbide Mononitrate ER [Imdur] 30 mg PO DAILY Pantoprazole [Protonix] 40 mg PO DAILY Montelukast [Singulair] 10 mg PO HS Metoprolol Tartrate [Lopressor] 50 mg PO BID Loratadine [Claritin] 10 mg PO DAILY allopurinoL [Zyloprim] 100 mg PO BID Vitamin B Complex 1 cap PO DAILY Ubidecarenone [Co Q-10] 100 mg PO DAILY Pravastatin Sodium [Pravachol] 20 mg PO DAILY Albuterol Sulfate [Ventolin HFA] 1 - 2 puff INHALATION RT-Q6H PRN PRN Reason: Shortness Of Breath hydrALAZINE HCL [Apresoline] 100 mg PO TID Nitroglycerin Sl Tabs [Nitrostat] 0.4 mg SL Q5M PRN PRN Reason: Chest Pain Ipratropium-Albuterol Nebulize [Duoneb 0.5 mg-3 mg/3 ml Soln] 3 ml INHALATION RT-QID 30 Days #90 ml Lactobacillus Acidoph & Bulgar [Lactinex] 1 packet PO DAILY 30 Days #30 packet Insulin Detemir (Levemir) [Levemir] 48 unit SQ HS Ferrous Gluconate [Fergon] 225 mg PO DAILY Spironolactone [Aldactone] 12.5 mg PO DAILY #30 tab Temazepam [Restoril] 15 mg PO HS PRN #10 cap PRN Reason: Insomnia Cholecalciferol [Vitamin D3 (25 Mcg = 1000 Iu)] 75 mcg PO DAILY Rivaroxaban [Xarelto] 15 mg PO DIRECTED Folic Acid 0.4 mg PO DAILY Fluticasone/Salmeterol [Fluticasone-Salmeterol 232-14] 1 puff INHALATION Q48H Magnesium Oxide [Goss] 500 mg PO DAILY dilTIAZem HCL 90 mg PO BID Aspirin 81 mg PO DAILY #30 Sodium Chloride 0.65% Nasal [Deep Sea (Saline)] 2 spray NASAL QID PRN #7 ml PRN Reason: Dry Nasal Passages Flecainide Acetate 100 mg PO BID Changed Insulin Lispro [humaLOG] 10 units SQ AC-TID #0 Discontinued Furosemide [Lasix] 40 mg PO BID@0900,1600 #60 tab Discharge Medication List Fluticasone Nasal [place] [Flonase Nasal [place]] 1 spr EA NOSTRIL DAILY PRN 05/12/16 [History] Isosorbide Mononitrate ER [Imdur] 30 mg PO DAILY 01/16/19 [History] Pantoprazole [Protonix] 40 mg PO DAILY 01/16/19 [History] Montelukast [Singulair] 10 mg PO HS 02/12/19 [History] Loratadine [Claritin] 10 mg PO DAILY 03/28/19 [History] Metoprolol Tartrate [Lopressor] 50 mg PO BID 03/28/19 [History] Vitamin B Complex 1 cap PO DAILY 06/24/19 [History] allopurinoL [Zyloprim] 100 mg PO BID 06/24/19 [History] Ubidecarenone [Co Q-10] 100 mg PO DAILY 08/01/19 [History] Pravastatin Sodium [Pravachol] 20 mg PO DAILY 11/11/19 [History] Albuterol Sulfate [Ventolin HFA] 1 - 2 puff INHALATION RT-Q6H PRN 07/25/21 [History] Fluticasone/Salmeterol [Fluticasone-Salmeterol 232-14] 1 puff INHALATION Q48H 07/25/21 [History] Folic Acid 0.4 mg PO DAILY 07/25/21 [History] Magnesium Oxide [Goss] 500 mg PO DAILY 07/25/21 [History] dilTIAZem HCL 90 mg PO BID 07/25/21 [History] hydrALAZINE HCL [Apresoline] 100 mg PO TID 07/25/21 [History] Nitroglycerin Sl Tabs [Nitrostat] 0.4 mg SL Q5M PRN 07/26/21 [History] Ipratropium-Albuterol Nebulize [Duoneb 0.5 mg-3 mg/3 ml Soln] 3 ml INHALATION RT-QID 30 Days #90 ml 07/30/21 [Rx] Lactobacillus Acidoph & Bulgar [Lactinex] 1 packet PO DAILY 30 Days #30 packet 07/30/21 [Rx] Insulin Detemir (Levemir) [Levemir] 48 unit SQ HS 08/04/21 [History] Ferrous Gluconate [Fergon] 225 mg PO DAILY 08/06/21 [History] Aspirin 81 mg PO DAILY #30 08/09/21 [Rx] Sodium Chloride 0.65% Nasal [Deep Sea (Saline)] 2 spray NASAL QID PRN #7 ml 08/09/21 [Rx] Spironolactone [Aldactone] 12.5 mg PO DAILY #30 tab 08/09/21 [Rx] Temazepam [Restoril] 15 mg PO HS PRN #10 cap 08/09/21 [Rx] Cholecalciferol [Vitamin D3 (25 Mcg = 1000 Iu)] 75 mcg PO DAILY 08/18/21 [History] Flecainide Acetate 100 mg PO BID 08/18/21 [History] Rivaroxaban [Xarelto] 15 mg PO DIRECTED 08/18/21 [History] Furosemide [Lasix] 40 mg PO DAILY@1600 #30 tab 08/19/21 [Rx] Furosemide [Lasix] 80 mg PO DAILY #30 tab 08/19/21 [Rx] Insulin Lispro [humaLOG] 10 units SQ AC-TID #0 08/19/21 [Rx] Follow up Appointment(s)/Referral(s): Ivy Valentine DO [Primary Care Provider] - 1-2 days [facility], [NON-STAFF] - [facility] [NON-STAFF] - Ascencion Atkins MD [STAFF PHYSICIAN] - 1 Week Activity/Diet/Wound Care/Special Instructions: Patient was counseled extensively on a congestive heart failure diet and limiting sodium intake. Please provide patient with education next and Patient has a PET scan scheduled at 1245 tomorrow outpatient Discharge Disposition: HOME SELF-CARE
[2021-08-19] MEDS ORDERED: FUROSEMIDE 40 MG TAB PO SCH (16:00)
[2021-08-20] MEDS ORDERED: FUROSEMIDE 80 MG TAB PO SCH (09:00)
== END 2021-08-19 13:55 | disposition home or self-care (01) ==
LOC: EC 08:43 → 3SCARD 12:02
PROVIDERS: ADMIT Internal Medicine; ATTEND Internal Medicine
DX: I13.0 Hypertensive heart and chronic kidney disease with heart failure and stage 1 through stage 4 chronic kidney disease, or unspecified chronic kidney disease (principal); I50.33 Acute on chronic diastolic (congestive) heart failure; N18.30 Chronic kidney disease, stage 3 unspecified; I48.19 Other persistent atrial fibrillation; I25.10 Atherosclerotic heart disease of native coronary artery without angina pectoris; I49.5 Sick sinus syndrome; J44.9 Chronic obstructive pulmonary disease, unspecified; E11.22 Type 2 diabetes mellitus with diabetic chronic kidney disease; Z20.822 Contact with and (suspected) exposure to COVID-19; E78.5 Hyperlipidemia, unspecified; E11.65 Type 2 diabetes mellitus with hyperglycemia; E11.40 Type 2 diabetes mellitus with diabetic neuropathy, unspecified; K21.9 Gastro-esophageal reflux disease without esophagitis; R01.1 Cardiac murmur, unspecified; I25.2 Old myocardial infarction; I44.0 Atrioventricular block, first degree; R91.1 Solitary pulmonary nodule; K74.60 Unspecified cirrhosis of liver; K90.0 Celiac disease; L13.0 Dermatitis herpetiformis; K86.81 Exocrine pancreatic insufficiency; N40.0 Benign prostatic hyperplasia without lower urinary tract symptoms; M51.26 Other intervertebral disc displacement, lumbar region; M19.90 Unspecified osteoarthritis, unspecified site; I83.90 Asymptomatic varicose veins of unspecified lower extremity; Z79.4 Long term (current) use of insulin; Z79.899 Other long term (current) drug therapy; Z79.82 Long term (current) use of aspirin; Z79.01 Long term (current) use of anticoagulants; Z88.1 Allergy status to other antibiotic agents; Z88.0 Allergy status to penicillin; Z88.2 Allergy status to sulfonamides; Z88.8 Allergy status to other drugs, medicaments and biological substances; Z98.41 Cataract extraction status, right eye; Z98.42 Cataract extraction status, left eye; Z96.1 Presence of intraocular lens; Z77.090 Contact with and (suspected) exposure to asbestos; Z87.01 Personal history of pneumonia (recurrent); Z87.891 Personal history of nicotine dependence; Z95.0 Presence of cardiac pacemaker; Z95.5 Presence of coronary angioplasty implant and graft; Z83.3 Family history of diabetes mellitus; Z82.49 Family history of ischemic heart disease and other diseases of the circulatory system
CPT/HCPCS: 99284; 96376 ×3; 96374; 96375; 36415; 94640 ×4; 94760; 93005; 83880; 80053; 80048; 83605; 83735; 84484; 85025; 85610; 85730; 81001; 87635; 71046; G0378 ×2; J1940 ×2; J2930

== ENCOUNTER → 2021-08-20 | Outpatient (CLI) | payer MEDICARE ==
--- NOTE | 2021-08-22 21:26 | PE ---
EXAMINATION TYPE: PET CT fusion skull to thigh DATE OF EXAM: 08/20/2021 COMPARISON: Most recent CT July 25, 2021 HISTORY: Solitary pulmonary nodule, abnormal CT. TECHNIQUE: Following the intravenous administration of 11.86 mCi of F-18 FDG, whole body images a re performed from the skull base to the midthigh. Images are reviewed on the computer in the coronal , axial, and sagittal planes. Reconstructed rotating images are created on independent workstation a nd reviewed on the computer. A localization and attenuation correction CT is performed in conjuncti on with the PET scan. Blood glucose level equals 92 SCAN: Initial Scan FINDINGS: SKULL BASE AND NECK: No abnormal hypermetabolic uptake. CHEST, MEDIASTINUM, AND HILAR REGION: Background moderate underlying emphysematous change is redemons trated. Persistent peripheral left midlung lobulated mass at 4.2 x 3.0 cm axial image 92, max SUV 6.0 5. Abnormal left hilar and suprahilar hypermetabolic adenopathy. Abnormal 1.3 x 1.1 cm hypermetabolic AP window lymph node with max SUV 4.21 on axial image 81. Abnormal hypermetabolic internal mammary l ymph node axial image 70. Areas of unusual curvilinear consolidation and/or atelectasis. Small right greater than left pleural effusions. Hypermetabolic lymph node anterior to the pericardium axial imag e 1:15, max SUV is 5.67. ABDOMEN AND PELVIS: Hypermetabolic foci throughout the liver consistent with hepatic metastatic disea se, max SUV is 7.91 in the posterior right hepatic lobe. CT correlation is difficult to visualize on the attenuation correction CT. The liver has lobulated contour, consistent with cirrhosis. Cholecyste ctomy clips noted. There adjacent abnormal hypermetabolic upper abdominal lymph nodes centered near p pedro hepatis. OSSEOUS STRUCTURES: Suspicious hypermetabolic focus T12 vertebra and scattered throughout additional structures including right iliac bone and right sacrum axial image 194. No definitive CT correlate. F indings suspicious for metastatic disease. OTHER CT: [id number] calcified plaque bilateral carotid bulb level. Low lung volumes. Cardiomeg amos with dual lead pacemaker. Severe three-vessel coronary artery calcification. Bilateral gynecomast ia. Moderate calcified plaque of the aorta extends into branch vessels. Skin thickening in the lower abdo men/upper pelvis anterior wall suspect scar tissue. Mildly enlarged prostate consistent with BPH. Und erlying scoliotic curvature with multilevel spurring in the spine IMPRESSION: High stage neoplasm with cirrhotic liver are multiple hypermetabolic masses could reflect metastatic disease. Abnormal left lung mass with thoracic adenopathy as detailed above.
== END | disposition home or self-care (01) ==
LOC: RADPETMAIN 12:41
PROVIDERS: ATTEND Internal Medicine Critical Care Medicine
DX: C22.9 Malignant neoplasm of liver, not specified as primary or secondary (principal); K74.60 Unspecified cirrhosis of liver; R91.8 Other nonspecific abnormal finding of lung field; R59.0 Localized enlarged lymph nodes
CPT/HCPCS: 78815; A9552

== ENCOUNTER 2021-09-06 11:52 | Inpatient (IN) | payer MEDICARE ==
[2021-09-06 14:42] LABS: Basophils % (A) 0 %; Eosinophils % (A) 0 %; HCT 38.1 % (39.0-53.0); HGB 12.8 gm/dL (13.0-17.5); Lymphocytes # (A) 0.3 k/uL (1.0-4.8); Lymphocytes % (A) 2 %; MCH 32.2 pg (25.0-35.0); MCHC 33.6 g/dL (31.0-37.0); Mean Platelet Volume 10.4; Monocytes # (A) 0.6 k/uL (0-1.0); Monocytes % (A) 4 %; Neutrophils # (A) 14.9 k/uL (1.3-7.7); Neutrophils % (A) 93 %; Platelet Count 139 k/uL (150-450); RBC 3.97 m/uL (4.30-5.90); RDW 14.6 % (11.5-15.5)
--- NOTE | 2021-09-06 14:51 | XR ---
EXAMINATION TYPE: XR chest 2V DATE OF EXAM: 09/06/2021 COMPARISON: 08/18/2021 TECHNIQUE: PA and lateral views submitted. HISTORY: Difficulty breathing FINDINGS: No pleural effusion or pneumothorax. Cardiac device with bilateral consolidation and tiny effusion. No pneumothorax. Interstitial infiltrates seen. IMPRESSION: 1. Patchy bilateral infiltrate correlate for multifocal pneumonia. Neoplasm not excluded.
[2021-09-06 14:52] LABS: Albumin 3.3 g/dL (3.5-5.0); Magnesium 2.3 mg/dL (1.6-2.3); Total Bilirubin 4.6 mg/dL (0.2-1.3); Total Protein 5.9 g/dL (6.3-8.2)
[2021-09-06 14:54] LABS: MCV 95.8 fL (80.0-100.0); Potassium 2.6 mmol/L (3.5-5.1)
[2021-09-06] MEDS ORDERED: POTASSIUM CHLORIDE ER 20 MEQ TAB.ER PO STA (14:56)
[2021-09-06 15:00] LABS: INR 1.1 (<1.2); Prothrombin Time 11.8 sec (9.0-12.0)
[2021-09-06 15:06] LABS: Partial Thromboplastin Time 20.9 sec (22.0-30.0)
--- NOTE | 2021-09-06 15:43 | ED ---
General Adult HPI - General Chief complaint: Shortness of Breath Stated complaint: DEDRICK Time Seen by Provider: 09/06/21 13:18 Source: patient, family, RN notes reviewed Mode of arrival: EMS Limitations: no limitations - History of Present Illness Initial comments: Patient is a 66 she'll male that presents to emergency department complaining of abdominal distention. He notes that he is on palliative care has a history of nodules on as lungs and some on his liver that he is supposed to get biopsy. He also has a significant history of CHF COPD CKG elevated troponin. He notes that over the past all days his abdominal has become larger he's gained approximately 3 pounds. He called his palliative care nurse who told him the emergency room for evaluation. Patient noted this had diarrhea for the past several days. He was otherwise well-appearing in no apparent pain. He noted the pain is minimal with no alleviating or aggravating factors. He denied chest pain shortness breath headache nausea vomiting constipation fever fatigue chills. - Related Data Home Medications Medication Instructions Recorded Confirmed Fluticasone Nasal [place] [Flonase 1 spr EA NOSTRIL DAILY 05/12/16 09/06/21 Nasal [place]] Isosorbide Mononitrate ER [Imdur] 30 mg PO DAILY 01/16/19 09/06/21 Pantoprazole [Protonix] 40 mg PO DAILY 01/16/19 09/06/21 Montelukast [Singulair] 10 mg PO HS 02/12/19 09/06/21 Loratadine [Claritin] 10 mg PO DAILY 03/28/19 09/06/21 Metoprolol Tartrate [Lopressor] 50 mg PO BID 03/28/19 09/06/21 Vitamin B Complex 1 cap PO DAILY 06/24/19 09/06/21 allopurinoL [Zyloprim] 100 mg PO DAILY 06/24/19 09/06/21 Ubidecarenone [Co Q-10] 200 mg PO DAILY 08/01/19 09/06/21 Pravastatin Sodium [Pravachol] 20 mg PO DAILY 11/11/19 09/06/21 Albuterol Sulfate [Ventolin HFA] 1 - 2 puff INHALATION RT-Q4H PRN 07/25/21 09/06/21 Fluticasone/Salmeterol 1 puff INHALATION RT-BID 07/25/21 09/06/21 [Fluticasone-Salmeterol 232-14] Folic Acid 0.4 mg PO DAILY 07/25/21 09/06/21 dilTIAZem HCL 90 mg PO BID 07/25/21 09/06/21 hydrALAZINE HCL [Apresoline] 100 mg PO TID 07/25/21 09/06/21 Nitroglycerin Sl Tabs [Nitrostat] 0.4 mg SL Q5M PRN 07/26/21 09/06/21 Flecainide Acetate 100 mg PO BID 08/18/21 09/06/21 Cholecalciferol (Vitamin D3) 75 mcg PO DAILY 08/30/21 09/06/21 [Vitamin D3 (3000 Iu)] Furosemide [Lasix] 80 mg PO DAILY 09/06/21 09/06/21 Insulin Detemir [Levemir Flextouch 48 units SQ HS 09/06/21 09/06/21 Pen] Insulin Lispro [humaLOG] See Protocol SQ AC-TID 09/06/21 09/06/21 Iron 27mg 1 tab PO DAILY 09/06/21 09/06/21 Magnesium Oxide [Mag-Ox] 250 mg PO DAILY 09/06/21 09/06/21 Zolpidem [Ambien] 5 mg PO HS PRN 09/06/21 09/06/21 Previous Rx's Medication Instructions Recorded Ipratropium-Albuterol Nebulize 3 ml INHALATION RT-QID 30 Days #90 07/30/21 [Duoneb 0.5 mg-3 mg/3 ml Soln] ml Aspirin 81 mg PO DAILY #30 08/09/21 Sodium Chloride 0.65% Nasal [Deep 2 spray NASAL QID PRN #7 ml 08/09/21 Sea (Saline)] Spironolactone [Aldactone] 12.5 mg PO DAILY #30 tab 08/09/21 Furosemide [Lasix] 40 mg PO DAILY@1600 #30 tab 08/19/21 Allergies Allergy/AdvReac Type Severity Reaction Status Date / Time amlodipine Allergy Swelling Verified 09/06/21 14:44 amoxicillin Allergy Anaphylaxis Verified 09/06/21 14:44 cephalexin monohydrate Allergy Rash/Hives Verified 09/06/21 14:44 [From Keflex] clindamycin Allergy Rash/Hives Verified 09/06/21 14:44 Penicillins Allergy Rash/Hives Verified 09/06/21 14:44 Sulfa (Sulfonamide Allergy Anaphylaxis Verified 09/06/21 14:44 Antibiotics) sulfamethoxazole Allergy Anaphylaxis Verified 09/06/21 14:44 [From Bactrim] trimethoprim [From Bactrim] Allergy Anaphylaxis Verified 09/06/21 14:44 carvedilol AdvReac "MAKES ME Verified 09/06/21 14:44 JERILYN" Review of Systems ROS Statement: Those systems with pertinent positive or pertinent negative responses have been documented in the HPI. ROS Other: All systems not noted in ROS Statement are negative. Past Medical History Past Medical History: Atrial Fibrillation, Coronary Artery Disease (CAD), Chest Pain / Angina, Heart Failure, COPD, Diabetes Mellitus, GERD/Reflux, Hyperlipidemia, Hypertension, Liver Disease, Myocardial Infarction ([place]), Prostat e Disorder, Renal Disease, Skin Disorder, Vascular Disorder Additional Past Medical History / Comment(s): history ofAfib with RVR, tachybrady syndrome with pacemaker, IDDM type II, neuropathy bilateral feet, stage III chronic kidney disease, chronic CHF, R pleural effusion, liver cirrhosis, BPH, DJD, herniated discs low back, chronic low back pain, varicose veins , anemia with hx of iron infusions., past asbestos exposure, celiac disease, dermatitis herpetiformis. Last Myocardial Infarction Date:: 06/2018 History of Any Multi-Drug Resistant Organisms: None Reported Past Surgical History: Ablation, Cardiac Ablation, Cholecystectomy, Heart Catheterization With Stent, Pacemaker, Tonsillectomy Additional Past Surgical History / Comment(s): PCI with STENTS x 3, bilateral cataracts removed with lens implants, colonoscopy, [employer] pacemaker Past Anesthesia/Blood Transfusion Reactions: No Reported Reaction Date of Last Stent Placement:: 2017 Type of Cardiac Device: Permanent Pacemaker Device Placement Date:: 02/02/19 Past Psychological History: No Psychological Hx Reported Smoking Status: Former smoker Past Alcohol Use History: None Reported Past Drug Use History: None Reported - Past Family History Mother Family Medical History: Diabetes Mellitus Father Family Medical History: Myocardial Infarction ([place]) Additional Family Medical History / Comment(s): Father had a VA in his 70s. Brother(s) Family Medical History: Myocardial Infarction ([place]) Additional Family Medical History / Comment(s): Brother had a VA in his 50s. General Exam Limitations: no limitations General appearance: alert, in no apparent distress Head exam: Present: atraumatic, normocephalic, normal inspection Eye exam: Present: normal appearance, PERRL, EOMI. Absent: scleral icterus, conjunctival injection, periorbital swelling ENT exam: Present: normal exam Neck exam: Present: normal inspection Respiratory exam: Present: normal lung sounds bilaterally. Absent: respiratory distress, wheezes, rales, rhonchi, stridor Cardiovascular Exam: Present: regular rate, normal rhythm, normal heart sounds. Absent: systolic murmur, diastolic murmur, rubs, gallop, clicks GI/Abdominal exam: Present: soft, distended, normal bowel sounds. Absent: tenderness, guarding, rebound, rigid Extremities exam: Present: normal inspection, full ROM, normal capillary refill. Absent: tenderness, pedal edema, joint swelling, calf tenderness Neurological exam: Present: alert, oriented X3 Psychiatric exam: Present: normal affect, normal mood Skin exam: Present: warm, dry, intact, normal color. Absent: rash Course Vital Signs 09/06/21 09/06/21 12:49 14:57 Temperature 97.9 F Pulse Rate 94 69 Respiratory 20 16 Rate Blood Pressure 159/89 139/78 O2 Sat by Pulse 94 L 95 Oximetry EKG Findings - EKG Comments: EKG Findings:: Ventricular rate 91 bpm, QRS duration 116 ms, QTC 522 ms, PRT axes 64/-19/185, atrial flutter with very able AV block, incomplete left bundle branch block, ST and T-wave abdomen to consider inferior lateral ischemia, prolonged QT abnormal ECG. Medical Decision Making - Medical Decision Making 56-year-old male with abdominal distention and discomfort for the past several days. Labs, CT abdomen and pelvis, EKG ordered. Labs: CBC unremarkable from baseline, potassium 2.6 troponin 0.085, BU when 60, creatinine 1.74 Computed tomography scan shows ascites mild bilateral pulmonary effusions and close the right upper quadrant. Given patient's medical history and new onset ascites patient will be admitted to hospital. Case discussed with Dr. Douglass. Laurie Velez from [facility] accepted the admit with interventional radiology on consult. - Lab Data Result diagrams: 09/06/21 14:17 09/06/21 14:17 Lab Results 1009/06/21 09/06/21 Range/Units 14:17 14:17 14:17 WBC 16.0 H (3.8-10.6) k/uL RBC 3.97 L (4.30-5.90) m/uL Hgb 12.8 L (13.0-17.5) gm/dL Hct 38.1 L (39.0-53.0) % MCV 95.8 D (80.0-100.0) fL MCH 32.2 (25.0-35.0) pg MCHC 33.6 (31.0-37.0) g/dL RDW 14.6 (11.5-15.5) % Plt Count 139 L (150-450) k/uL MPV 10.4 Neutrophils % 93 % Lymphocytes % 2 % Monocytes % 4 % Eosinophils % 0 % Basophils % 0 % Neutrophils # 14.9 H (1.3-7.7) k/uL Lymphocytes # 0.3 L (1.0-4.8) k/uL Monocytes # 0.6 (0-1.0) k/uL Eosinophils # 0.0 (0-0.7) k/uL Basophils # 0.0 (0-0.2) k/uL PT 11.8 (9.0-12.0) sec INR 1.1 (<1.2) APTT 20.9 L (22.0-30.0) sec Sodium 129 L (137-145) mmol/L Potassium 2.6 L* (3.5-5.1) mmol/L Chloride 90 L (98-107) mmol/L Carbon Dioxide 30 (22-30) mmol/L Anion Gap 9 mmol/L BUN 60 H (9-20) mg/dL Creatinine 1.74 H (0.66-1.25) mg/dL Est GFR (CKD-EPI)AfAm 46 (>60 ml/min/1.73 sqM) Est GFR (CKD-EPI)NonAf 40 (>60 ml/min/1.73 sqM) Glucose 105 H (74-99) mg/dL Calcium 8.0 L (8.4-10.2) mg/dL Magnesium 2.3 (1.6-2.3) mg/dL Total Bilirubin 4.6 H (0.2-1.3) mg/dL AST 100 H (17-59) U/L ALT 158 H (4-49) U/L Alkaline Phosphatase 292 H (38-126) U/L Troponin I (0.000-0.034) ng/mL NT-Pro-B Natriuret Pep pg/mL Total Protein 5.9 L (6.3-8.2) g/dL Albumin 3.3 L (3.5-5.0) g/dL 09/06/21 09/06/21 Range/Units 14:17 14:17 WBC (3.8-10.6) k/uL RBC (4.30-5.90) m/uL Hgb (13.0-17.5) gm/dL Hct (39.0-53.0) % MCV (80.0-100.0) fL MCH (25.0-35.0) pg MCHC (31.0-37.0) g/dL RDW (11.5-15.5) % Plt Count (150-450) k/uL MPV Neutrophils % % Lymphocytes % % Monocytes % % Eosinophils % % Basophils % % Neutrophils # (1.3-7.7) k/uL Lymphocytes # (1.0-4.8) k/uL Monocytes # (0-1.0) k/uL Eosinophils # (0-0.7) k/uL Basophils # (0-0.2) k/uL PT (9.0-12.0) sec INR (<1.2) APTT (22.0-30.0) sec Sodium (137-145) mmol/L Potassium (3.5-5.1) mmol/L Chloride (98-107) mmol/L Carbon Dioxide (22-30) mmol/L Anion Gap mmol/L BUN (9-20) mg/dL Creatinine (0.66-1.25) mg/dL Est GFR (CKD-EPI)AfAm (>60 ml/min/1.73 sqM) Est GFR (CKD-EPI)NonAf (>60 ml/min/1.73 sqM) Glucose (74-99) mg/dL Calcium (8.4-10.2) mg/dL Magnesium (1.6-2.3) mg/dL Total Bilirubin (0.2-1.3) mg/dL AST (17-59) U/L ALT (4-49) U/L Alkaline Phosphatase (38-126) U/L Troponin I 0.085 H* (0.000-0.034) ng/mL NT-Pro-B Natriuret Pep 9200 pg/mL Total Protein (6.3-8.2) g/dL Albumin (3.5-5.0) g/dL - EKG Data -: EKG Interpreted by Me EKG Comments: Ventricular rate 91 bpm, QRS duration 116 ms, QTC 522 ms, PRT axes 64/-19/185, atrial flutter with very able AV block, incomplete left bundle branch block, ST and T-wave abdomen to consider inferior lateral ischemia, prolonged QT abnormal ECG. - Radiology Data Radiology results: report reviewed, image reviewed Chest x-ray: Patchy bilateral infiltrate correlate for multifocal pneumonia. CT of the abdomen and pelvis: Ascites small bilateral pleural effusions. Multiple nodules within the visualized lung base. Colitis the right upper quadrant. Disposition Clinical Impression: Ascites, Bilateral pleural effusion, Elevated troponin Disposition: ADMITTED IP TO THIS HOSP Condition: Stable Is patient prescribed a controlled substance at d/c from ED?: No Referrals: Ivy Valentine DO [Primary Care Provider] - 1-2 days Time of Disposition: 17:15
--- NOTE | 2021-09-06 16:30 | CT ---
EXAMINATION TYPE: CT abdomen pelvis wo con DATE OF EXAM: 09/06/2021 COMPARISON: 08/20/2021 PET/CT INDICATION: Abdominal distension DLP: 895.8 mGycm, Automated exposure control for dose reduction was used. CONTRAST: 0 mL of Isovue 300. Study performed without Oral Contrast TECHNIQUE: Axial images were obtained from above the diaphragm to the pubic rami in the axial plane a t 5 mm thick sections. Reconstructed images are reviewed on the computer in the coronal plane. FINDINGS: Limited CT sections are obtained the lung bases. There is a 2.1 cm nodule in the right middle lobe. Streak opacity within the lingula. An underlying pleural base mass measuring 3.6 cm medially present. There is a small nodule in the posterior lateral left lung measuring 0.8 cm. Small bilateral pleural effusions are present. Coronary artery calcification is present.. CT ABDOMEN: Small pleural effusion is present. There is some lobation of the liver. Correlate for cir rhosis. Spleen appears unremarkable. Pancreas: Normal Adrenal glands: The adrenal glands are normal. Gallbladder: Surgically absent Kidneys: No masses are evident. No hydronephrosis is present. No cysts are present. No renal stone s are evident. Aorta: Vascular calcification is within the aorta. Inferior vena cava: Normal. CT PELVIS: No suspicious obvious bowel abnormality is evident. There is a subtle suggestion of some wall thicken ing within the hepatic flexure of the colon. This study is without oral contrast limiting bowel evalu ation. Appendix: Not identified. No dilated tubular structure or inflammatory change is evident. Urinary bladder: Normal. Genitourinary structures: Prostate appears normal Osseous structures: No suspicious lytic or sclerotic lesions. IMPRESSIONS: 1. Ascites. 2. Small bilateral pleural effusions. 3. Multiple nodules within the visualized lung bases.
[2021-09-06] MEDS ORDERED: NALOXONE 0.4 MG/ML 1 ML VIAL IV PRN (17:15)
[2021-09-06] MEDS ORDERED: SIMETHICONE 80 MG CHEWABLE PO STA (18:00)
[2021-09-06 20:02] LABS: Glucose,Whole Blood 307 mg/dL (75-99)
[2021-09-06] MEDS ORDERED: ALBUTEROL NEBULIZED 2.5 MG/3 ML INHALATION PRN (21:13)
[2021-09-06] MEDS ORDERED: Potassium Replacement Protocol 1 EACH MISC MISCELLANE PRN (21:28)
[2021-09-06] MEDS ORDERED: NITROGLYCERIN SL TABS 0.4 MG TAB SUBLINGUAL PRN (21:30)
[2021-09-06] MEDS: SODIUM CHLORIDE 0.9% 1,000 ML IV SCH (21:55)
[2021-09-06] MEDS: DILTIAZEM ORAL 30 MG TAB PO SCH (21:55)
[2021-09-06] MEDS: METOPROLOL TARTRATE 50 MG TAB PO SCH (21:57)
[2021-09-06] MEDS: FLECAINIDE 50 MG TAB PO SCH (21:57)
[2021-09-06] MEDS: ZOLPIDEM 5 MG TAB PO PRN (21:58)
[2021-09-06] MEDS: POTASSIUM CHLORIDE ER 20 MEQ TAB.ER PO SCH ×2 (21:58→23:50)
[2021-09-06] MEDS: PRAVASTATIN SODIUM 20 MG TAB PO SCH (21:58)
[2021-09-06] MEDS: INSULIN DETEMIR (LEVEMIR) 100 UNIT/ML SYR SQ SCH (22:03)
[2021-09-06] MEDS: INSULIN ASPART (NovoLOG) 100 UNIT/ML VIAL SQ SCH (22:08)
[2021-09-06] MEDS: hydrALAZINE HCL 50 MG TAB PO SCH (23:52)
[2021-09-07] MEDS: POTASSIUM CHLORIDE ER 20 MEQ TAB.ER PO SCH (01:50)
[2021-09-07 06:20] LABS: Glucose,Whole Blood 291 mg/dL (75-99)
[2021-09-07] MEDS: INSULIN ASPART (NovoLOG) 100 UNIT/ML VIAL SQ SCH ×4 (06:52→20:30)
[2021-09-07] MEDS: SODIUM CHLORIDE 0.9% 1,000 ML IV SCH (06:52)
[2021-09-07] MEDS ORDERED: INSULIN ASPART (NovoLOG) 100 UNIT/ML VIAL SQ SCH (07:30)
[2021-09-07] MEDS ORDERED: SYMBICORT 160-4.5 MCG INHALER INHALATION SCH (08:00)
[2021-09-07] MEDS: METOPROLOL TARTRATE 50 MG TAB PO SCH ×2 (08:22→20:31)
[2021-09-07] MEDS: DILTIAZEM ORAL 30 MG TAB PO SCH ×2 (08:22→20:30)
[2021-09-07] MEDS: hydrALAZINE HCL 50 MG TAB PO SCH ×3 (08:22→20:32)
[2021-09-07] MEDS: FLECAINIDE 50 MG TAB PO SCH ×2 (08:22→20:30)
[2021-09-07] MEDS: PRAVASTATIN SODIUM 20 MG TAB PO SCH (08:22)
[2021-09-07 09:15] LABS: Basophils % (A) 0 %; Eosinophils % (A) 0 %; HGB 12.6 gm/dL (13.0-17.5); Lymphocytes # (A) 0.3 k/uL (1.0-4.8); Lymphocytes % (A) 2 %; MCH 32.4 pg (25.0-35.0); MCHC 33.9 g/dL (31.0-37.0); MCV 95.6 fL (80.0-100.0); Mean Platelet Volume 10.6; Monocytes # (A) 0.6 k/uL (0-1.0); Monocytes % (A) 5 %; Neutrophils # (A) 12.6 k/uL (1.3-7.7); Neutrophils % (A) 93 %; Platelet Count 152 k/uL (150-450); RBC 3.87 m/uL (4.30-5.90); RDW 15.5 % (11.5-15.5); WBC 13.6 k/uL (3.8-10.6)
[2021-09-07 09:17] LABS: Potassium 3.9 mmol/L (3.5-5.1)
[2021-09-07] MEDS: IPRATROPIUM-ALBUTEROL 3 ML NEB INHALATION SCH ×4 (09:35→19:39)
[2021-09-07] MEDS ORDERED: POTASSIUM CHLORIDE ER 20 MEQ TAB.ER PO STA (11:05)
[2021-09-07] MEDS: PANTOPRAZOLE 40 MG TABLET PO SCH (11:27)
[2021-09-07 11:29] LABS: Glucose,Whole Blood 312 mg/dL (75-99)
[2021-09-07] MEDS: ISOSORBIDE MONONITRATE ER 30 MG TAB.ER.24H PO SCH (11:33)
--- NOTE | 2021-09-07 11:54 | US ---
EXAMINATION TYPE: US paracentesis abd w/image DATE OF EXAM: 09/07/2021 COMPARISON: NONE HISTORY: Ascites. PROCEDURE: Maximal barrier technique was utilized. The skin overlying a suitable pocket of fluid was localized with ultrasound and the overlying skin was prepped and draped. Ultrasound was utilized with sterile technique. Lidocaine was used for local anesthesia and a skin philip made with a scalpel. Catheter was advanced under direct ultrasound guidance into a suitable pocket of fluid and approximately 2.2 liter s of serous fluid were removed. Catheter was withdrawn and hemostasis achieved. There is no immedia te complication; the patient is discharged in stable condition. IMPRESSION: STATUS POST ULTRASOUND GUIDED PARACENTESIS FOR PALLIATION OF ASCITES. THIS PROCEDURE WA S PERFORMED BY THE UNDERSIGNED. Specimen sent for laboratory analysis.
[2021-09-07 15:01] LABS: Appearance,BF Hazy; Nucleated Cells, Body Fluid 125 /uL; RBC, Body Fluid 275 /uL
[2021-09-07 15:19] LABS: Mononuclear WBC,Body Fluid 64 %; Polynuclear WBC,Body Fluid 35 %; Total Cells Counted,Body Fluid 100
[2021-09-07 16:31] LABS: Glucose,Whole Blood 444 mg/dL (75-99)
[2021-09-07] MEDS ORDERED: FUROSEMIDE 40 MG TAB PO SCH (18:00)
[2021-09-07] MEDS: SYMBICORT 160-4.5 MCG INHALER INHALATION SCH (19:39)
[2021-09-07 20:09] LABS: Glucose,Whole Blood 307 mg/dL (75-99)
[2021-09-07] MEDS: INSULIN DETEMIR (LEVEMIR) 100 UNIT/ML SYR SQ SCH (20:31)
[2021-09-07] MEDS: MONTELUKAST 10 MG TAB PO SCH (20:32)
[2021-09-07] MEDS: ZOLPIDEM 5 MG TAB PO PRN (20:32)
--- NOTE | 2021-09-07 23:39 | P.HPIM ---
History of Present Illness H&P Date: 09/07/21 Chief Complaint: Abdominal distention Patient is a 66-year-old male with a known history of COPD on home oxygen, recent lung mass on CT chest on follow up with pulmonary, persistent atrial fibrillation on anticoagulation with xarelto, sick sinus syndrome with history of permanent pacemaker placement, coronary artery disease history of stent placement to circumflex, diabetes type 2 insulin-dependent, hypertension, hyperlipidemia, chronic CHF with diastolic dysfunction and previous history of smoking and alcohol use presents to ER with complaints of Abdominal distention. Patient does have a history of liver cirrhosis due to previous history of alcohol abuse. Patient had previous admissions with acute on chronic CHF with diastolic dysfunction and also history of lung nodules. Patient is supposed to get biopsy of the lung nodule. Patient had previous history of right-sided pleural effusion and thoracentesis. Patient was recently discharged in the hospital on 08/19/2021. Patient had PET scan on 08/20/2021 showed high stage neoplasm with cirrhotic liver-multiple hypermetabolic dialysis could reflect metastatic disease. Abnormal left lung mass with thoracic adenopathy. Chest x-ray showed patchy bilateral infiltrate correlate for multifocal pneumonia. Neoplasm not excluded. CT of the abdomen pelvis showed ascites, small bilateral pleural effusions, multiple nodules within the visualized lung bases. Clinical consideration for colitis in the right upper quadrant is recommended. Laboratory data showed WBC 13.6 hemoglobin 12.6 and platelets 152 Sodium 130 potassium 3.9 chloride 93 BUN 64 and creatinine 1.9 Blood sugar is 314 Calcium 8.0 Review of Systems Constitutional: Patient denies any fever or chills . No generalized weakness or weight loss. Abdomen: Patient does complain of abdominal distention. No complaints of abdominal pain. No nausea vomiting or diarrhea.. Cardiovascular: Patient denies any chest pain or short of breath no palpitations. Respiratory: patient denied any cough or sputum production. No shortness of breath Neurologic: Patient denied any numbness or tingling headache. Musculoskeletal: Patient denies any complaints of joint swelling or deformity. Skin: Negative Psychiatric: Negative Endocrine: No heat or cold intolerance. No recent weight gain. Genitourinary: No dysuria or hematuria. All other 14 point ROS negative except the above Past Medical History Past Medical History: Atrial Fibrillation, Coronary Artery Disease (CAD), Chest Pain / Angina, Heart Failure, COPD, Diabetes Mellitus, GERD/Reflux, Hyperlipidemia, Hypertension, Liver Disease, Myocardial Infarction ([place]), Prostate Disorder, Renal Disease, Skin Disorder, Vascular Disorder Additional Past Medical History / Comment(s): history ofAfib with RVR, tachyb rady syndrome with pacemaker, IDDM type II, neuropathy bilateral feet, stage III chronic kidney disease, chronic CHF, R pleural effusion, liver cirrhosis, BPH, DJD, herniated discs low back, chronic low back pain, varicose veins , anemia with hx of iron infusions., past asbestos exposure, celiac disease, dermatitis herpetiformis. Last Myocardial Infarction Date:: 06/2018 History of Any Multi-Drug Resistant Organisms: None Reported Past Surgical History: Ablation, Cardiac Ablation, Cholecystectomy, Heart Catheterization With Stent, Pacemaker, Tonsillectomy Additional Past Surgical History / Comment(s): PCI with STENTS x 3, bilateral cataracts removed with lens implants, colonoscopy, [employer]tr[employer] pacemaker Past Anesthesia/Blood Transfusion Reactions: No Reported Reaction Date of Last Stent Placement:: 2017 Type of Cardiac Device: Permanent Pacemaker Device Placement Date:: 02/02/19 Past Psychological History: No Psychological Hx Reported Additional Psychological History / Comment(s): Pt resides with his spouse. He is independent. He is retired from [employer] Smoking Status: Former smoker Past Alcohol Use History: None Reported Additional Past Alcohol Use History / Comment(s): Started smoking in 1967, a half pack a day. Quit smoking January 2019. Pt states he drank heavy in the past but since 2008 rarely. Past Drug Use History: None Reported - Past Family History Mother Family Medical History: Diabetes Mellitus Father Family Medical History: Myocardial Infarction ([place]) Additional Family Medical History / Comment(s): Father had a [place] in his 70s. Brother(s) Family Medical History: Myocardial Infarction ([place]) Additional Family Medical History / Comment(s): Brother had a [place] in his 50s. Medications and Allergies Home Medications Medication Instructions Recorded Confirmed Type Fluticasone Nasal [place] [Flonase 1 spr EA NOSTRIL DAILY 05/12/16 09/06/21 History Nasal [place]] Isosorbide Mononitrate ER [Imdur] 30 mg PO DAILY 01/16/19 09/06/21 History Pantoprazole [Protonix] 40 mg PO DAILY 01/16/19 09/06/21 History Montelukast [Singulair] 10 mg PO HS 02/12/19 09/06/21 History Loratadine [Claritin] 10 mg PO DAILY 03/28/19 09/06/21 History Metoprolol Tartrate [Lopressor] 50 mg PO BID 03/28/19 09/06/21 History Vitamin B Complex 1 cap PO DAILY 06/24/19 09/06/21 History allopurinoL [Zyloprim] 100 mg PO DAILY 06/24/19 09/06/21 History Ubidecarenone [Co Q-10] 200 mg PO DAILY 08/01/19 09/06/21 History Pravastatin Sodium [Pravachol] 20 mg PO DAILY 11/11/19 09/06/21 History Albuterol Sulfate [Ventolin HFA] 1 - 2 puff INHALATION RT-Q4H PRN 07/25/21 09/06/21 History Fluticasone/Salmeterol 1 puff INHALATION RT-BID 07/25/21 09/06/21 History [Fluticasone-Salmeterol 232-14] Folic Acid 0.4 mg PO DAILY 07/25/21 09/06/21 History dilTIAZem HCL 90 mg PO BID 07/25/21 09/06/21 History hydrALAZINE HCL [Apresoline] 100 mg PO TID 07/25/21 09/06/21 History Nitroglycerin Sl Tabs [Nitrostat] 0.4 mg SL Q5M PRN 07/26/21 09/06/21 History Ipratropium-Albuterol Nebulize 3 ml INHALATION RT-QID 30 Days #90 07/30/21 09/06/21 Rx [Duoneb 0.5 mg-3 mg/3 ml Soln] ml Aspirin 81 mg PO DAILY #30 08/09/21 09/06/21 Rx Sodium Chloride 0.65% Nasal [Deep 2 spray NASAL QID PRN #7 ml 08/09/21 09/06/21 Rx Sea (Saline)] Spironolactone [Aldactone] 12.5 mg PO DAILY #30 tab 08/09/21 09/06/21 Rx Flecainide Acetate 100 mg PO BID 08/18/21 09/06/21 History Furosemide [Lasix] 40 mg PO DAILY@1600 #30 tab 08/19/21 09/06/21 Rx Cholecalciferol (Vitamin D3) 75 mcg PO DAILY 08/30/21 09/06/21 History [Vitamin D3 (3000 Iu)] Furosemide [Lasix] 80 mg PO DAILY 09/06/21 09/06/21 History Insulin Detemir [Levemir Flextouch 48 units SQ HS 09/06/21 09/06/21 History Pen] Insulin Lispro [humaLOG] See Protocol SQ AC-TID 09/06/21 09/06/21 History Iron 27mg 1 tab PO DAILY 09/06/21 09/06/21 History Magnesium Oxide [Mag-Ox] 250 mg PO DAILY 09/06/21 09/06/21 History Zolpidem [Ambien] 5 mg PO HS PRN 09/06/21 09/06/21 History Allergies Allergy/AdvReac Type Severity Reaction Status Date / Time amlodipine Allergy Swelling Verified 09/06/21 14:44 amoxicillin Allergy Anaphylaxis Verified 09/06/21 14:44 cephalexin monohydrate Allergy Rash/Hives Verified 09/06/21 14:44 [From Keflex] clindamycin Allergy Rash/Hives Verified 09/06/21 14:44 Penicillins Allergy Rash/Hives Verified 09/06/21 14:44 Sulfa (Sulfonamide Allergy Anaphylaxis Verified 09/06/21 14:44 Antibiotics) sulfamethoxazole Allergy Anaphylaxis Verified 09/06/21 14:44 [From Bactrim] trimethoprim [From Bactrim] Allergy Anaphylaxis Verified 09/06/21 14:44 carvedilol AdvReac "MAKES ME Verified 09/06/21 14:44 LOONEY" Physical Exam Vitals: Vital Signs Temp Pulse Pulse Resp BP BP Pulse Ox 09/07/21 10:59 66 16 159/70 97 09/07/21 10:48 63 16 157/77 96 09/07/21 10:38 65 16 161/83 97 09/07/21 10:30 65 16 164/86 97 09/07/21 10:15 67 18 168/86 96 09/07/21 09:45 65 16 159/76 97 09/07/21 08:15 97.8 F 67 18 111/43 98 09/07/21 02:59 98.1 F 57 L 18 114/56 95 09/07/21 01:55 61 16 09/06/21 23:56 98.1 F 61 16 140/65 96 09/06/21 22:53 98.0 F 66 18 95 09/06/21 20:00 98.0 F 66 18 124/70 95 09/06/21 19:09 97.8 F 69 16 143/78 97 09/06/21 17:00 70 16 144/75 94 L 09/06/21 14:57 69 16 139/78 95 09/06/21 12:49 97.9 F 94 20 159/89 94 L Intake and Output 09/06/21 09/07/21 09/07/21 22:59 06:59 14:59 Intake Total 120 Output Total 250 Balance -250 120 Intake: Oral 120 Output: Urine 250 Other: # Voids 1 1 Weight 86.273 kg 87.5 kg Patient is sitting up in the chair comfortably, no acute distress, awake alert and oriented.. HEENT: Normocephalic. Neck is supple. Pupils reactive. Nostrils clear. Oral cavity is moist. Neck reveals no JVD, carotid bruits, or thyromegaly. CHEST EXAMINATION: Trachea is central. Symmetrical expansion. no crackles. No wheezing.. Bibasilar diminished sounds. Nonlabored breathing.. CARDIAC: Normal S1, S2 with no gallops. No murmurs ABDOMEN: Soft. Bowel sounds normal. No organomegaly. No abdominal bruits. Extremities: 2+ edema. No clubbing or cyanosis, significant improvement in lower extremity edema noted Neurologically awake, alert, oriented x3 with well-coordinated movements. No focal deficits noted Skin: No rash or skin lesions. Psychiatric: Cooperative. Non-suicidal Musculoskeletal: No joint swelling or deformity. Normal range of motion. Results CBC & Chem 7: 09/07/21 08:11 09/07/21 08:11 Labs: Abnormal Lab Results - Last 24 Hours (Table) 09/06/21 09/06/21 09/06/21 Range/Units 14:17 14:17 14:17 WBC 16.0 H (3.8-10.6) k/uL RBC 3.97 L (4.30-5.90) m/uL Hgb 12.8 L (13.0-17.5) gm/dL Hct 38.1 L (39.0-53.0) % Plt Count 139 L (150-450) k/uL Neutrophils # 14.9 H (1.3-7.7) k/uL Lymphocytes # 0.3 L (1.0-4.8) k/uL APTT 20.9 L (22.0-30.0) sec Sodium 129 L (137-145) mmol/L Potassium 2.6 L* (3.5-5.1) mmol/L Chloride 90 L (98-107) mmol/L BUN 60 H (9-20) mg/dL Creatinine 1.74 H (0.66-1.25) mg/dL Glucose 105 H (74-99) mg/dL POC Glucose (mg/dL) (75-99) mg/dL Calcium 8.0 L (8.4-10.2) mg/dL Total Bilirubin 4.6 H (0.2-1.3) mg/dL AST 100 H (17-59) U/L ALT 158 H (4-49) U/L Alkaline Phosphatase 292 H (38-126) U/L Troponin I (0.000-0.034) ng/mL Total Protein 5.9 L (6.3-8.2) g/dL Albumin 3.3 L (3.5-5.0) g/dL 09/06/21 09/06/21 09/07/21 Range/Units 14:17 19:52 06:18 WBC (3.8-10.6) k/uL RBC (4.30-5.90) m/uL Hgb (13.0-17.5) gm/dL Hct (39.0-53.0) % Plt Count (150-450) k/uL Neutrophils # (1.3-7.7) k/uL Lymphocytes # (1.0-4.8) k/uL APTT (22.0-30.0) sec Sodium (137-145) mmol/L Potassium (3.5-5.1) mmol/L Chloride (98-107) mmol/L BUN (9-20) mg/dL Creatinine (0.66-1.25) mg/dL Glucose (74-99) mg/dL POC Glucose (mg/dL) 307 H 291 H (75-99) mg/dL Calcium (8.4-10.2) mg/dL Total Bilirubin (0.2-1.3) mg/dL AST (17-59) U/L ALT (4-49) U/L Alkaline Phosphatase (38-126) U/L Troponin I 0.085 H* (0.000-0.034) ng/mL Total Protein (6.3-8.2) g/dL Albumin (3.5-5.0) g/dL 09/07/21 09/07/21 Range/Units 08:11 08:11 WBC 13.6 H (3.8-10.6) k/uL RBC 3.87 L (4.30-5.90) m/uL Hgb 12.6 L (13.0-17.5) gm/dL Hct 37.0 L (39.0-53.0) % Plt Count (150-450) k/uL Neutrophils # 12.6 H (1.3-7.7) k/uL Lymphocytes # 0.3 L (1.0-4.8) k/uL APTT (22.0-30.0) sec Sodium 130 L (137-145) mmol/L Potassium (3.5-5.1) mmol/L Chloride 93 L (98-107) mmol/L BUN 64 H (9-20) mg/dL Creatinine 1.90 H (0.66-1.25) mg/dL Glucose 314 H (74-99) mg/dL POC Glucose (mg/dL) (75-99) mg/dL Calcium 8.0 L (8.4-10.2) mg/dL Total Bilirubin (0.2-1.3) mg/dL AST (17-59) U/L ALT (4-49) U/L Alkaline Phosphatase (38-126) U/L Troponin I (0.000-0.034) ng/mL Total Protein (6.3-8.2) g/dL Albumin (3.5-5.0) g/dL Thrombosis Risk Factor Assmnt - DVT/VTE Prophylaxis DVT/VTE Prophylaxis: Pharmacologic Prophylaxis ordered Assessment and Plan Assessment: Abdominal distention due to ascites status post paracentesis with 2.2 L fluid removal Alcoholic liver cirrhosis suspicious multiple liver metastatic lesions as per Recent history of PET scan on 08/20/21 . chronic CHF with diastolic dysfunction Recently diagnosed lung nodules with abdominal CT chest.. Supposed to follow with pulmonary clinic. s/p outpatient PET scan on 08/20/2021 Hyperglycemia with uncontrolled diabetes type 2 Elevated troponin level unlikely ACS. Hyponatremia likely hypervolemic. Possible SIADH cannot be excluded. Bilateral small pleural effusions with recent history of right thoracentesis Chronic postnasal drip Persistent atrial fibrillation on anticoagulation with xarelto. Was on hold for persistent nosebleeds. Cardiology recommends to start back on xarelto. Sick sinus syndrome with history of permanent pacemaker placement coronary artery disease history of stent placement to circumflex Hypertension Hyperlipidemia Chronic hypoxic respiratory failure secondary to COPD Previous history of smoking History of liver cirrhosis DVT prophylaxis Full code Plan: Patient is status post paracentesis with 2.2 L fluid removal. Cell count and differential showed no evidence of SBP. Follow-up fluid culture and cytology report. Replace electrolytes and patient will be started back on Lasix and spironolactone. Monitor renal function. Continue with home medications and follow-up closely. Pulmonary and cardiology was consulted. Prognosis guarded at this time. Time with Patient: Greater than 30
[2021-09-08] MEDS: PANTOPRAZOLE 40 MG TABLET PO SCH (05:55)
[2021-09-08 06:12] LABS: Glucose,Whole Blood 91 mg/dL (75-99)
[2021-09-08] MEDS: INSULIN ASPART (NovoLOG) 100 UNIT/ML VIAL SQ SCH ×4 (06:19→20:25)
[2021-09-08 07:06] LABS: Basophils % (A) 0 %; Eosinophils % (A) 0 %; HCT 39.8 % (39.0-53.0); HGB 12.7 gm/dL (13.0-17.5); Lymphocytes # (A) 0.4 k/uL (1.0-4.8); Lymphocytes % (A) 2 %; MCH 31.1 pg (25.0-35.0); MCHC 31.9 g/dL (31.0-37.0); MCV 97.4 fL (80.0-100.0); Mean Platelet Volume 10.9; Monocytes # (A) 0.6 k/uL (0-1.0); Monocytes % (A) 4 %; Neutrophils # (A) 16.4 k/uL (1.3-7.7); Neutrophils % (A) 94 %; Platelet Count 129 k/uL (150-450); RBC 4.09 m/uL (4.30-5.90); RDW 14.9 % (11.5-15.5); WBC 17.5 k/uL (3.8-10.6)
[2021-09-08 07:22] LABS: Albumin 3.1 g/dL (3.5-5.0); Calcium 8.5 mg/dL (8.4-10.2); Potassium 3.9 mmol/L (3.5-5.1); Total Bilirubin 4.4 mg/dL (0.2-1.3); Total Protein 5.7 g/dL (6.3-8.2)
[2021-09-08] MEDS: SYMBICORT 160-4.5 MCG INHALER INHALATION SCH ×2 (07:53→20:05)
[2021-09-08] MEDS: IPRATROPIUM-ALBUTEROL 3 ML NEB INHALATION SCH ×4 (07:53→20:05)
[2021-09-08] MEDS: DILTIAZEM ORAL 30 MG TAB PO SCH ×2 (08:44→20:25)
[2021-09-08] MEDS: PRAVASTATIN SODIUM 20 MG TAB PO SCH (08:44)
[2021-09-08] MEDS: FLECAINIDE 50 MG TAB PO SCH ×2 (08:44→20:25)
[2021-09-08] MEDS: hydrALAZINE HCL 50 MG TAB PO SCH ×3 (08:44→20:26)
[2021-09-08] MEDS: SPIRONOLACTONE 25 MG TAB PO SCH (08:44)
[2021-09-08] MEDS: ISOSORBIDE MONONITRATE ER 30 MG TAB.ER.24H PO SCH (08:44)
[2021-09-08] MEDS: allopurinoL 100 MG TAB PO SCH (08:45)
[2021-09-08] MEDS: ASPIRIN 81 MG PO SCH (08:45)
[2021-09-08] MEDS: METOPROLOL TARTRATE 50 MG TAB PO SCH ×2 (08:45→20:25)
[2021-09-08] MEDS ORDERED: FUROSEMIDE 40 MG TAB PO SCH (09:00)
[2021-09-08 10:55] LABS: Glucose, BF Source Paracentesis Fluid; Glucose, Body Fluid 337 mg/dL
--- NOTE | 2021-09-08 11:14 | P.NPCON ---
History of Present Illness - Reason for Consult chronic renal failure - History of Present Illness Reason for consultation: Chronic kidney disease History of present illness: Patient is a 66-year-old male seen in renal consultation for chronic kidney disease. Patient has chronic kidney disease stage IV secondary to nephrosclerosis and cardiorenal syndrome. Patient's baseline creatinine has been in the range of 1.8-2.4 outpatient. Creatinine this admission was 1.74 and is up to 2.24 today. Patient presented to the hospital with abdominal distention. Patient has lung nodules as well as lesion on his kidney and spine. Patient states he was supposed to liver biopsy tomorrow. Patient states his abdomen was getting more swollen and he was also gaining weight. Patient underwent paracentesis yesterday with 2.2 L drained. He is currently maintained on Lasix 80 mg in the morning and 40 mg in the evening. He has long-standing history of diabetes. No chest pain. Feels weak. Has been voiding. No hematuria. No cough. No fever. Patient has a history of diastolic CHF. Vital signs are stable. General: The patient appeared well nourished and normally developed. HEENT: Head exam is unremarkable. LUNGS: Breath sounds decreased. HEART: Rate and Rhythm are regular. ABDOMEN: Soft, distention noted. EXTREMITITES: 1+ edema. Past Medical History Past Medical History: Atrial Fibrillation, Coronary Artery Disease (CAD), Chest Pain / Angina, Heart Failure, COPD, Diabetes Mellitus, GERD/Reflux, Hyperlipidemia, Hypertension, Liver Disease, Myocardial Infarction ([place]), Prostate Disorder, Renal Disease, Skin Disorder, Vascular Disorder Additional Past Medical History / Comment(s): history ofAfib with RVR, tachybrady syndrome with pacemaker, IDDM type II, neuropathy bilateral feet, stage III chronic kidney disease, chronic CHF, R pleural effusion, liver cirrhosis, BPH, DJD, herniated discs low back, chronic low back pain, varicose veins , anemia with hx of iron infusions., past asbestos exposure, celiac disease, dermatitis herpetiformis. Last Myocardial Infarction Date:: 06/2018 History of Any Multi-Drug Resistant Organisms: None Reported Past Surgical History: Ablation, Cardiac Ablation, Cholecystectomy, Heart Catheterization With Stent, Pacemaker, Tonsillectomy Additional Past Surgical History / Comment(s): PCI with STENTS x 3, bilateral cataracts removed with lens implants, colonoscopy, [employer]tr[employer] pacemaker Past Anesthesia/Blood Transfusion Reactions: No Reported Reaction Date of Last Stent Placement:: 2017 Type of Cardiac Device: Permanent Pacemaker Device Placement Date:: 02/02/19 Past Psychological History: No Psychological Hx Reported Additional Psychological History / Comment(s): Pt resides with his spouse. He is independent. He is retired from [employer] Smoking Status: Former smoker Past Alcohol Use History: None Reported Additional Past Alcohol Use History / Comment(s): Started smoking in 1967, a half pack a day. Quit smoking January 2019. Pt states he drank heavy in the past but since 2008 rarely. Past Drug Use History: None Reported - Past Family History Mother Family Medical History: Diabetes Mellitus Father Family Medical History: Myocardial Infarction ([place]) Additional Family Medical History / Comment(s): Father had a [place] in his 70s. Brother(s) Family Medical History: Myocardial Infarction ([place]) Additional Family Medical History / Comment(s): Brother had a [place] in his 50s. Medications and Allergies Home Medications Medication Instructions Recorded Confirmed Type Fluticasone Nasal [place] [Flonase 1 spr EA NOSTRIL DAILY 05/12/16 09/06/21 History Nasal [place]] Isosorbide Mononitrate ER [Imdur] 30 mg PO DAILY 01/16/19 09/06/21 History Pantoprazole [Protonix] 40 mg PO DAILY 01/16/19 09/06/21 History Montelukast [Singulair] 10 mg PO HS 02/12/19 09/06/21 History Loratadine [Claritin] 10 mg PO DAILY 03/28/19 09/06/21 History Metoprolol Tartrate [Lopressor] 50 mg PO BID 03/28/19 09/06/21 History Vitamin B Complex 1 cap PO DAILY 06/24/19 09/06/21 History allopurinoL [Zyloprim] 100 mg PO DAILY 06/24/19 09/06/21 History Ubidecarenone [Co Q-10] 200 mg PO DAILY 08/01/19 09/06/21 History Pravastatin Sodium [Pravachol] 20 mg PO DAILY 11/11/19 09/06/21 History Albuterol Sulfate [Ventolin HFA] 1 - 2 puff INHALATION RT-Q4H PRN 07/25/21 09/06/21 History Fluticasone/Salmeterol 1 puff INHALATION RT-BID 07/25/21 09/06/21 History [Fluticasone-Salmeterol 232-14] Folic Acid 0.4 mg PO DAILY 07/25/21 09/06/21 History dilTIAZem HCL 90 mg PO BID 07/25/21 09/06/21 History hydrALAZINE HCL [Apresoline] 100 mg PO TID 07/25/21 09/06/21 History Nitroglycerin Sl Tabs [Nitrostat] 0.4 mg SL Q5M PRN 07/26/21 09/06/21 History Ipratropium-Albuterol Nebulize 3 ml INHALATION RT-QID 30 Days #90 07/30/21 09/06/21 Rx [Duoneb 0.5 mg-3 mg/3 ml Soln] ml Aspirin 81 mg PO DAILY #30 08/09/21 09/06/21 Rx Sodium Chloride 0.65% Nasal [Deep 2 spray NASAL QID PRN #7 ml 08/09/21 09/06/21 Rx Sea (Saline)] Spironolactone [Aldactone] 12.5 mg PO DAILY #30 tab 08/09/21 09/06/21 Rx Flecainide Acetate 100 mg PO BID 08/18/21 09/06/21 History Furosemide [Lasix] 40 mg PO DAILY@1600 #30 tab 08/19/21 09/06/21 Rx Cholecalciferol (Vitamin D3) 75 mcg PO DAILY 08/30/21 09/06/21 History [Vitamin D3 (3000 Iu)] Furosemide [Lasix] 80 mg PO DAILY 09/06/21 09/06/21 History Insulin Detemir [Levemir Flextouch 48 units SQ HS 09/06/21 09/06/21 History Pen] Insulin Lispro [humaLOG] See Protocol SQ AC-TID 09/06/21 09/06/21 History Iron 27mg 1 tab PO DAILY 09/06/21 09/06/21 History Magnesium Oxide [Mag-Ox] 250 mg PO DAILY 09/06/21 09/06/21 History Zolpidem [Ambien] 5 mg PO HS PRN 09/06/21 09/06/21 History Allergies Allergy/AdvReac Type Severity Reaction Status Date / Time amlodipine Allergy Swelling Verified 09/06/21 14:44 amoxicillin Allergy Anaphylaxis Verified 09/06/21 14:44 cephalexin monohydrate Allergy Rash/Hives Verified 09/06/21 14:44 [From Keflex] clindamycin Allergy Rash/Hives Verified 09/06/21 14:44 Penicillins Allergy Rash/Hives Verified 09/06/21 14:44 Sulfa (Sulfonamide Allergy Anaphylaxis Verified 09/06/21 14:44 Antibiotics) sulfamethoxazole Allergy Anaphylaxis Verified 09/06/21 14:44 [From Bactrim] trimethoprim [From Bactrim] Allergy Anaphylaxis Verified 09/06/21 14:44 carvedilol AdvReac "MAKES ME Verified 09/06/21 14:44 LOONEY" Physical Exam Vitals: Vital Signs Temp Pulse Pulse Resp BP Pulse Ox 09/08/21 08:40 97.9 F 90 16 138/68 96 09/08/21 08:04 64 09/08/21 07:56 66 09/08/21 03:25 98.0 F 72 18 154/72 92 L 09/07/21 23:19 97.7 F 65 16 145/70 93 L 09/07/21 20:00 97.9 F 63 18 153/72 93 L 09/07/21 19:51 60 09/07/21 19:39 64 09/07/21 16:42 62 09/07/21 16:31 60 09/07/21 16:03 56 L 18 135/70 93 L 09/07/21 14:00 18 09/07/21 13:57 66 09/07/21 13:40 66 09/07/21 13:05 54 L 16 130/72 92 L 09/07/21 12:35 51 L 16 125/67 92 L 09/07/21 12:05 51 L 16 118/65 92 L 09/07/21 11:50 53 L 16 125/71 96 09/07/21 11:35 59 L 16 124/73 92 L 09/07/21 11:20 97.5 F L 52 L 18 165/81 92 L Intake and Output 09/07/21 09/08/21 09/08/21 22:59 06:59 14:59 Intake Total 120 480 Balance 120 480 Intake: Oral 120 480 Other: Voiding Method Toilet Toilet Toilet # Voids 2 2 1 Weight 85.8 kg Results - Lab Results Most recent lab results Calcium 8.5 mg/dL (8.4-10.2) 09/08/21 06:36 Magnesium 2.3 mg/dL (1.6-2.3) 09/06/21 14:17 09/08/21 06:36 09/08/21 06:36 Assessment and Plan Plan: Assessment: 1. Chronic kidney disease stage IV secondary to nephrosclerosis and cardiorenal syndrome. Baseline creatinine 1.8-2.4. 2. Acute on chronic diastolic CHF. 3. Lung nodule along with liver lesion and spine lesion. Liver biopsy was scheduled for tomorrow. 4. Ascites status post paracentesis on September 07 2.2 L drained. 5. Volume overload. 6. History of A. fib. 7. Hypertension with chronic kidney disease. Stable. Plan: Increase Lasix to 80 mg orally twice daily. 1500 mL fluid restriction. Avoid nephrotoxins. Continue to monitor renal function and urine output. Thank you for the consultation. I will continue to follow the patient with you during his hospital stay.
[2021-09-08 11:43] LABS: Albumin, Fluid Source Paracentesis Fluid
[2021-09-08 11:48] LABS: Glucose,Whole Blood 208 mg/dL (75-99)
--- NOTE | 2021-09-08 13:20 | P.CNPUL ---
History of Present Illness Consult date: 09/08/21 Requesting physician: Pamela Arthur Reason for consult: dyspnea, COPD, abnormal CXR/CT, other Chief complaint: Abdominal distention. History of present illness: Pulmonary/critical care consultation dated 09/08/2021. Appendectomy 66-year-old male, who presents to the emergency department, on Augo 11, complaining of shortness of breath, and increasing abdominal distention. The patient has a history of a lung mass, with multiple lesions in the liver, consistent with metastatic disease. Unfortunately, he has not had his CT-guided fine-needle biopsy of his liver lesions, which hopefully will give us a diagnosis and a stage. The patient does have a history of CHF, and COPD. He sees Dr. Valentine, as a primary. Recently, the patient's health has been declining, and is been in and out of the hospital multiple times recently. He denies any fever or chills. He denies any chest pain. He does admit to some recent diarrhea. He apparently is in palliative care. A paracentesis abdominis was done, and 2 L of fluid was removed. He is currently on 2 L nasal cannula. He's not receiving any IV fluids. Cytology from the ascitic fluid is pending. In addition, the patient has a history of atrial fibrillation, coronary artery disease, heart failure, COPD, diabetes mellitus, GERD, hyperlipidemia, hypertension, myocardial infarction, status post pacemaker insertion, diabetic neuropathy, chronic kidney disease, liver cirrhosis, and celiac disease, as well as dermatitis herpetiformis. White count of 17.5, hemoglobin 12.7, hematocrit 39.8, and platelet count 129,000. Sodium 136, potassium 3.9, chlorides 97, CO2 30, anion gap 9, BUN 72, creatinine 2.24. AST is 123, ALT is 185. Albumin is 3.1. Chest x-ray shows bilateral patchy infiltrates, likely related to underlying malignancy rather than pneumonia. CT of the abdomen and pelvis show evidence of ascites, small bilateral pleural effusions, and multiple nodules within the lung tobias. Review of Systems REVIEW OF SYSTEMS: CONSTITUTIONAL: Weakness and fatigue. NEUROLOGIC: [ Negative.] HEENT: [ Negative.] CARDIAC: [Negative.] PULMONARY: Shortness of breath. GI: Diarrhea, and increasing abdominal girth. : [Negative.] RHEUMATOLOGIC: [ Negative.] IMMUNOLOGIC: [ Negative.] ENDOCRINE: [Negative. ] DERMATOLOGIC: [Negative.] Past Medical History Past Medical History: Atrial Fibrillation, Coronary Artery Disease (CAD), Chest Pain / Angina, Heart Failure, COPD, Diabetes Mellitus, GERD/Reflux, Hyperlipidemia, Hypertension, Liver Disease, Myocardial Infarction (PA), Prostate Disorder, Renal Disease, Skin Disorder, Vascular Disorder Additional Past Medical History / Comment(s): history ofAfib with RVR, tachybrady syndrome with pacemaker, IDDM type II, neuropathy bilateral feet, stage III chronic kidney disease, chronic CHF, R pleural effusion, liver cirrhosis, BPH, DJD, herniated discs low back, chronic low back pain, varicose veins , anemia with hx of iron infusions., past asbestos exposure, celiac disease, dermatitis herpetiformis. Last Myocardial Infarction Date:: 06/2018 History of Any Multi-Drug Resistant Organisms: None Reported Past Surgical History: Ablation, Cardiac Ablation, Cholecystectomy, Heart Catheterization With Stent, Pacemaker, Tonsillectomy Additional Past Surgical History / Comment(s): PCI with STENTS x 3, bilateral cataracts removed with lens implants, colonoscopy, [employer] pacemaker Past Anesthesia/Blood Transfusion Reactions: No Reported Reaction Date of Last Stent Placement:: 2017 Type of Cardiac Device: Permanent Pacemaker Device Placement Date:: 02/02/19 Past Psychological History: No Psychological Hx Reported Additional Psychological History / Comment(s): Pt resides with his spouse. He is independent. He is retired from [employer] Smoking Status: Former smoker Past Alcohol Use History: None Reported Additional Past Alcohol Use History / Comment(s): Started smoking in 1967, a half pack a day. Quit smoking January 2019. Pt states he drank heavy in the past but since 2008 rarely. Past Drug Use History: None Reported - Past Family History Mother Family Medical History: Diabetes Mellitus Father Family Medical History: Myocardial Infarction (PA) Additional Family Medical History / Comment(s): Father had a PA in his 70s. Brother(s) Family Medical History: Myocardial Infarction (PA) Additional Family Medical History / Comment(s): Brother had a PA in his 50s. Medications and Allergies Home Medications Medication Instructions Recorded Confirmed Type Fluticasone Nasal Pyrites [Flonase 1 spr EA NOSTRIL DAILY 05/12/16 09/06/21 History Nasal Pyrites] Isosorbide Mononitrate ER [Imdur] 30 mg PO DAILY 01/16/19 09/06/21 History Pantoprazole [Protonix] 40 mg PO DAILY 01/16/19 09/06/21 History Montelukast [Singulair] 10 mg PO HS 02/12/19 09/06/21 History Loratadine [Claritin] 10 mg PO DAILY 03/28/19 09/06/21 History Metoprolol Tartrate [Lopressor] 50 mg PO BID 03/28/19 09/06/21 History Vitamin B Complex 1 cap PO DAILY 06/24/19 09/06/21 History allopurinoL [Zyloprim] 100 mg PO DAILY 06/24/19 09/06/21 History Ubidecarenone [Co Q-10] 200 mg PO DAILY 08/01/19 09/06/21 History Pravastatin Sodium [Pravachol] 20 mg PO DAILY 11/11/19 09/06/21 History Albuterol Sulfate [Ventolin HFA] 1 - 2 puff INHALATION RT-Q4H PRN 07/25/21 09/06/21 History Fluticasone/Salmeterol 1 puff INHALATION RT-BID 07/25/21 09/06/21 History [Fluticasone-Salmeterol 232-14] Folic Acid 0.4 mg PO DAILY 07/25/21 09/06/21 History dilTIAZem HCL 90 mg PO BID 07/25/21 09/06/21 History hydrALAZINE HCL [Apresoline] 100 mg PO TID 07/25/21 09/06/21 History Nitroglycerin Sl Tabs [Nitrostat] 0.4 mg SL Q5M PRN 07/26/21 09/06/21 History Ipratropium-Albuterol Nebulize 3 ml INHALATION RT-QID 30 Days #90 07/30/21 09/06/21 Rx [Duoneb 0.5 mg-3 mg/3 ml Soln] ml Aspirin 81 mg PO DAILY #30 08/09/21 09/06/21 Rx Sodium Chloride 0.65% Nasal [Deep 2 spray NASAL QID PRN #7 ml 08/09/21 09/06/21 Rx Sea (Saline)] Spironolactone [Aldactone] 12.5 mg PO DAILY #30 tab 08/09/21 09/06/21 Rx Flecainide Acetate 100 mg PO BID 08/18/21 09/06/21 History Furosemide [Lasix] 40 mg PO DAILY@1600 #30 tab 08/19/21 09/06/21 Rx Cholecalciferol (Vitamin D3) 75 mcg PO DAILY 08/30/21 09/06/21 History [Vitamin D3 (3000 Iu)] Furosemide [Lasix] 80 mg PO DAILY 09/06/21 09/06/21 History Insulin Detemir [Levemir Flextouch 48 units SQ HS 09/06/21 09/06/21 History Pen] Insulin Lispro [humaLOG] See Protocol SQ AC-TID 09/06/21 09/06/21 History Iron 27mg 1 tab PO DAILY 09/06/21 09/06/21 History Magnesium Oxide [Mag-Ox] 250 mg PO DAILY 09/06/21 09/06/21 History Zolpidem [Ambien] 5 mg PO HS PRN 09/06/21 09/06/21 History Allergies Allergy/AdvReac Type Severity Reaction Status Date / Time amlodipine Allergy Swelling Verified 09/06/21 14:44 amoxicillin Allergy Anaphylaxis Verified 09/06/21 14:44 cephalexin monohydrate Allergy Rash/Hives Verified 09/06/21 14:44 [From Keflex] clindamycin Allergy Rash/Hives Verified 09/06/21 14:44 Penicillins Allergy Rash/Hives Verified 09/06/21 14:44 Sulfa (Sulfonamide Allergy Anaphylaxis Verified 09/06/21 14:44 Antibiotics) sulfamethoxazole Allergy Anaphylaxis Verified 09/06/21 14:44 [From Bactrim] trimethoprim [From Bactrim] Allergy Anaphylaxis Verified 09/06/21 14:44 carvedilol AdvReac "MAKES ME Verified 09/06/21 14:44 JERILYN" Physical Exam Osteopathic Statement: *. No significant issues noted on an osteopathic structural exam other than those noted in the History and Physical/Consult. Vitals: Vital Signs Temp Pulse Pulse Resp BP Pulse Ox 09/08/21 11:57 68 09/08/21 11:37 98 F 66 74 16 143/71 92 L 09/08/21 08:40 97.9 F 90 16 138/68 96 09/08/21 08:04 64 09/08/21 07:56 66 09/08/21 03:25 98.0 F 72 18 154/72 92 L 09/07/21 23:19 97.7 F 65 16 145/70 93 L 09/07/21 20:00 97.9 F 63 18 153/72 93 L 09/07/21 19:51 60 09/07/21 19:39 64 09/07/21 16:42 62 09/07/21 16:31 60 09/07/21 16:03 56 L 18 135/70 93 L 09/07/21 14:00 18 09/07/21 13:57 66 09/07/21 13:40 66 Intake and Output 09/07/21 09/08/21 09/08/21 22:59 06:59 14:59 Intake Total 120 480 Balance 120 480 Intake: Oral 120 480 Other: Voiding Method Toilet Toilet Toilet # Voids 2 2 1 Weight 85.8 kg No acute distress, oriented 3. Currently on room air. No overt respiratory distress, conversational dyspnea, or use of accessory muscles. HEENT examination is grossly unremarkable. Neck supple. Full range of motion. No adenopathy thyromegaly or neck vein distention. Cardiovascular examination reveals regular rhythm rate. S1-S2 normal. No S3 or S4. No discernible murmur noted. Heart rate is 68 bpm. Lungs reveal mild scattered rhonchi. No wheezes or crackles. Breath sounds equal bilaterally. Abdomen is quite distended with a fluid wave. Mild tenderness on palpation. No masses. Extremities are intact. No cyanosis or clubbing. Mild lower extremity edema is noted. Skin is without rash or lesion. Neurologic examination is brief but nonfocal. Results - Laboratory Findings CBC and BMP: 09/08/21 06:36 09/08/21 06:36 PT/INR, D-dimer PT 11.8 sec (9.0-12.0) 09/06/21 14:17 INR 1.1 (<1.2) 09/06/21 14:17 Abnormal lab findings: Abnormal Labs 09/06/21 09/06/21 09/06/21 14:17 14:17 14:17 WBC 16.0 H RBC 3.97 L Hgb 12.8 L Hct 38.1 L Plt Count 139 L Neutrophils # 14.9 H Lymphocytes # 0.3 L APTT 20.9 L Sodium 129 L Potassium 2.6 L* Chloride 90 L BUN 60 H Creatinine 1.74 H Glucose 105 H POC Glucose (mg/dL) Calcium 8.0 L Total Bilirubin 4.6 H AST 100 H ALT 158 H Alkaline Phosphatase 292 H Troponin I Total Protein 5.9 L Albumin 3.3 L 09/06/21 09/06/21 09/07/21 14:17 19:52 06:18 WBC RBC Hgb Hct Plt Count Neutrophils # Lymphocytes # APTT Sodium Potassium Chloride BUN Creatinine Glucose POC Glucose (mg/dL) 307 H 291 H Calcium Total Bilirubin AST ALT Alkaline Phosphatase Troponin I 0.085 H* Total Protein Albumin 09/07/21 09/07/21 09/07/21 08:11 08:11 11:28 WBC 13.6 H RBC 3.87 L Hgb 12.6 L Hct 37.0 L Plt Count Neutrophils # 12.6 H Lymphocytes # 0.3 L APTT Sodium 130 L Potassium Chloride 93 L BUN 64 H Creatinine 1.90 H Glucose 314 H POC Glucose (mg/dL) 312 H Calcium 8.0 L Total Bilirubin AST ALT Alkaline Phosphatase Troponin I Total Protein Albumin 09/07/21 09/07/21 09/08/21 16:29 20:08 06:36 WBC 17.5 H RBC 4.09 L Hgb 12.7 L Hct Plt Count 129 L Neutrophils # 16.4 H Lymphocytes # 0.4 L APTT Sodium Potassium Chloride BUN Creatinine Glucose POC Glucose (mg/dL) 444 H 307 H Calcium Total Bilirubin AST ALT Alkaline Phosphatase Troponin I Total Protein Albumin 09/08/21 09/08/21 06:36 11:28 WBC RBC Hgb Hct Plt Count Neutrophils # Lymphocytes # APTT Sodium 136 L Potassium Chloride 97 L BUN 72 H Creatinine 2.24 H Glucose POC Glucose (mg/dL) 208 H Calcium Total Bilirubin 4.4 H AST 123 H ALT 185 H Alkaline Phosphatase 289 H Troponin I Total Protein 5.7 L Albumin 3.1 L - Diagnostic Findings Chest x-ray: image reviewed Assessment and Plan Assessment: Suspected lung cancer, with liver metastasis, not yet diagnosed. Status post large-volume paracentesis abdominis, with fluid cytology pending. History of underlying COPD from previous tobacco use. History of atrial fibrillation. History of coronary artery disease. History of CHF. History of diabetes mellitus with diabetic neuropathy. History of gastroesophageal reflux disease. History of hyperlipidemia. History of hypertension. Chronic kidney disease. Prior history of myocardial infarction, status post PCI with stents. Status post pacemaker insertion. History of BPH. Multiple other medical problems and comorbidities. Plan: Plan dated 09/08/2021. We will await the cytology from the paracentesis abdominis. The patient was scheduled for a CT-guided fine-needle aspiration of a liver lesion. He has multiple lesions in the liver seen on most recent PET scan. He also has a suspicious lesion in the left lung. Overall prognosis remains guarded. He apparently is in palliative care. We will continue to follow make recommendations where appropriate. No additional recommendations at this time. Time with Patient: Greater than 30
--- NOTE | 2021-09-08 13:42 | P.CRDCN ---
History of Present Illness Consult date: 09/08/21 History of present illness: HISTORY OF PRESENT ILLNESS: This is a 75 year old with a past medical history significant for coronary artery disease status post PCI to the diagonal branch and circumflex, paroxysmal atrial fibrillation not on anticoagulation secondary to nosebleeds, sick sinus syndrome status post pacemaker, diabetes, chronic kidney disease, hypertension, diastolic heart failure, COPD, and former nicotine dependence. Patient follows in the office with Dr. Morgan. We have been asked to see the patient in consultation for CHF. Patient examined at the bedside. Patient states he was supposed to have a liver biopsy performed yesterday but he was experiencing increased abdominal distention so he came to the ER for further evaluation. Patient underwent paracentesis yesterday by interventional radiology with removal of 2.2 L of serous fluid. Patient currently denies chest pain or pressure. EKG reveals atrial flutter with incomplete left bundle branch block Chest xray patchy bilateral infiltrates correlate for multifocal pneumonia. Neoplasm not excluded. Laboratory data: WBC 17.5. Hemoglobin 12.7. Platelet count 129. Sodium 136. Potassium 3.9. BUN 72. Creatinine 2.24. Bilirubin 4.4. AST 123. ALT 185. Current home cardiac medications include hydralazine 100 mg 3 times a day, Cardizem 90 mg twice a day, Aldactone 12.5 mg daily, Pravachol 20 mg daily, metoprolol tartrate 50 g twice a day, Imdur 30 mg daily, Lasix 80 mg the morning and 40 mg in the afternoon, flecainide 100 mg twice a day, and aspirin 81 mg heydi ly Most recent echocardiogram obtained in June 2021 reveals ejection fraction 55- 60%, mild aortic stenosis, mild mitral regurgitation, mild tricuspid regurgitation REVIEW OF SYSTEMS: At the time of my exam: CONSTITUTIONAL: Denies fever or chills. HEENT: Denies blurred vision, vision changes, or eye pain. Denies hemoptysis CARDIOVASCULAR: Denies chest pain. Denies orthopnea. Denies PND. Denies palpitations RESPIRATORY: Denies shortness of breath. GASTROINTESTINAL: Denies abdominal pain. Denies nausea or vomiting. reports abdominal distention. HEMATOLOGIC: Denies bleeding disorders. GENITOURINARY: Denies any blood in urine. SKIN: Denies pruitis. Denies rash. PHYSICAL EXAM: VITAL SIGNS: Reviewed. GENERAL: Well-developed in no acute distress. HEENT: Head is normocephalic. Pupils are equal, round. Sclerae anicteric. Mucous membranes of the mouth are moist. Neck supple. No JVD or thyromegaly LUNGS: Respirations even and unlabored. Lungs diminished to auscultation bilaterally. HEART: Regular rate and rhythm. S1 and S2 heard. ABDOMEN: Soft. Distended. Nontender. EXTREMITIES: Normal range of motion. No clubbing or cyanosis. Peripheral pulses intact. Trace bilateral lower extremity edema NEUROLOGIC: Awake and alert. Oriented x 3. ASSESSMENT: Ascites, status post paracentesis Lung and liver lesions, r/o malignancy Coronary artery disease with previous PCI Chronic kidney disease Chronic diastolic heart failure Paroxysmal atrial fibrillation, not on anticoagulation COPD Hypertension Diabetes PLAN: No need to repeat echocardiogram as this was performed in June 2021 Continue current home cardiac medications Patient is currently stable from a cardiac perspective Await cytology of paracentesis Further recommendations pending patient's course Nurse practitioner note has been reviewed by physician. Signing provider agrees with the documented findings, assessment, and plan of care. Past Medical History Past Medical History: Atrial Fibrillation, Coronary Artery Disease (CAD), Chest Pain / Angina, Heart Failure, COPD, Diabetes Mellitus, GERD/Reflux, Hyperlipidemia, Hypertension, Liver Disease, Myocardial Infarction (MD), Prostate Disorder, Renal Disease, Skin Disorder, Vascular Disorder Additional Past Medical History / Comment(s): history ofAfib with RVR, tachybrady syndrome with pacemaker, IDDM type II, neuropathy bilateral feet, stage III chronic kidney disease, chronic CHF, R pleural effusion, liver cirrhosis, BPH, DJD, herniated discs low back, chronic low back pain, varicose veins , anemia with hx of iron infusions., past asbestos exposure, celiac disease, dermatitis herpetiformis. Last Myocardial Infarction Date:: 06/2018 History of Any Multi-Drug Resistant Organisms: None Reported Past Surgical History: Ablation, Cardiac Ablation, Cholecystectomy, Heart Catheterization With Stent, Pacemaker, Tonsillectomy Additional Past Surgical History / Comment(s): PCI with STENTS x 3, bilateral cataracts removed with lens implants, colonoscopy, [employer] pacemaker Past Anesthesia/Blood Transfusion Reactions: No Reported Reaction Date of Last Stent Placement:: 2017 Type of Cardiac Device: Permanent Pacemaker Device Placement Date:: 02/02/19 Past Psychological History: No Psychological Hx Reported Additional Psychological History / Comment(s): Pt resides with his spouse. He is independent. He is retired from [employer] Smoking Status: Former smoker Past Alcohol Use History: None Reported Additional Past Alcohol Use History / Comment(s): Started smoking in 1967, a half pack a day. Quit smoking January 2019. Pt states he drank heavy in the past but since 2008 rarely. Past Drug Use History: None Reported - Past Family History Mother Family Medical History: Diabetes Mellitus Father Family Medical History: Myocardial Infarction (MD) Additional Family Medical History / Comment(s): Father had a MD in his 70s. Brother(s) Family Medical History: Myocardial Infarction (MD) Additional Family Medical History / Comment(s): Brother had a MD in his 50s. Medications and Allergies Home Medications Medication Instructions Recorded Confirmed Type Fluticasone Nasal [place] [Flonase 1 spr EA NOSTRIL DAILY 05/12/16 09/06/21 History Nasal [place]] Isosorbide Mononitrate ER [Imdur] 30 mg PO DAILY 01/16/19 09/06/21 History Pantoprazole [Protonix] 40 mg PO DAILY 01/16/19 09/06/21 History Montelukast [Singulair] 10 mg PO HS 02/12/19 09/06/21 History Loratadine [Claritin] 10 mg PO DAILY 03/28/19 09/06/21 History Metoprolol Tartrate [Lopressor] 50 mg PO BID 03/28/19 09/06/21 History Vitamin B Complex 1 cap PO DAILY 06/24/19 09/06/21 History allopurinoL [Zyloprim] 100 mg PO DAILY 06/24/19 09/06/21 History Ubidecarenone [Co Q-10] 200 mg PO DAILY 08/01/19 09/06/21 History Pravastatin Sodium [Pravachol] 20 mg PO DAILY 11/11/19 09/06/21 History Albuterol Sulfate [Ventolin HFA] 1 - 2 puff INHALATION RT-Q4H PRN 07/25/21 09/06/21 History Fluticasone/Salmeterol 1 puff INHALATION RT-BID 07/25/21 09/06/21 History [Fluticasone-Salmeterol 232-14] Folic Acid 0.4 mg PO DAILY 07/25/21 09/06/21 History dilTIAZem HCL 90 mg PO BID 07/25/21 09/06/21 History hydrALAZINE HCL [Apresoline] 100 mg PO TID 07/25/21 09/06/21 History Nitroglycerin Sl Tabs [Nitrostat] 0.4 mg SL Q5M PRN 07/26/21 09/06/21 History Ipratropium-Albuterol Nebulize 3 ml INHALATION RT-QID 30 Days #90 07/30/21 09/06/21 Rx [Duoneb 0.5 mg-3 mg/3 ml Soln] ml Aspirin 81 mg PO DAILY #30 08/09/21 09/06/21 Rx Sodium Chloride 0.65% Nasal [Deep 2 spray NASAL QID PRN #7 ml 08/09/21 09/06/21 Rx Sea (Saline)] Spironolactone [Aldactone] 12.5 mg PO DAILY #30 tab 08/09/21 09/06/21 Rx Flecainide Acetate 100 mg PO BID 08/18/21 09/06/21 History Furosemide [Lasix] 40 mg PO DAILY@1600 #30 tab 08/19/21 09/06/21 Rx Cholecalciferol (Vitamin D3) 75 mcg PO DAILY 08/30/21 09/06/21 History [Vitamin D3 (3000 Iu)] Furosemide [Lasix] 80 mg PO DAILY 09/06/21 09/06/21 History Insulin Detemir [Levemir Flextouch 48 units SQ HS 09/06/21 09/06/21 History Pen] Insulin Lispro [humaLOG] See Protocol SQ AC-TID 09/06/21 09/06/21 History Iron 27mg 1 tab PO DAILY 09/06/21 09/06/21 History Magnesium Oxide [Mag-Ox] 250 mg PO DAILY 09/06/21 09/06/21 History Zolpidem [Ambien] 5 mg PO HS PRN 09/06/21 09/06/21 History Allergies Allergy/AdvReac Type Severity Reaction Status Date / Time amlodipine Allergy Swelling Verified 09/06/21 14:44 amoxicillin Allergy Anaphylaxis Verified 09/06/21 14:44 cephalexin monohydrate Allergy Rash/Hives Verified 09/06/21 14:44 [From Keflex] clindamycin Allergy Rash/Hives Verified 09/06/21 14:44 Penicillins Allergy Rash/Hives Verified 09/06/21 14:44 Sulfa (Sulfonamide Allergy Anaphylaxis Verified 09/06/21 14:44 Antibiotics) sulfamethoxazole Allergy Anaphylaxis Verified 09/06/21 14:44 [From Bactrim] trimethoprim [From Bactrim] Allergy Anaphylaxis Verified 09/06/21 14:44 carvedilol AdvReac "MAKES ME Verified 09/06/21 14:44 LOONEY" Physical Exam Vitals: Vital Signs Temp Pulse Pulse Resp BP Pulse Ox 09/08/21 08:40 97.9 F 90 16 138/68 96 09/08/21 08:04 64 09/08/21 07:56 66 09/08/21 03:25 98.0 F 72 18 154/72 92 L 09/07/21 23:19 97.7 F 65 16 145/70 93 L 09/07/21 20:00 97.9 F 63 18 153/72 93 L 09/07/21 19:51 60 09/07/21 19:39 64 09/07/21 16:42 62 09/07/21 16:31 60 09/07/21 16:03 56 L 18 135/70 93 L 09/07/21 14:00 18 09/07/21 13:57 66 09/07/21 13:40 66 09/07/21 13:05 54 L 16 130/72 92 L 09/07/21 12:35 51 L 16 125/67 92 L 09/07/21 12:05 51 L 16 118/65 92 L 09/07/21 11:50 53 L 16 125/71 96 09/07/21 11:35 59 L 16 124/73 92 L Intake and Output 09/07/21 09/08/21 09/08/21 22:59 06:59 14:59 Intake Total 120 480 Balance 120 480 Intake: Oral 120 480 Other: Voiding Method Toilet Toilet Toilet # Voids 2 2 1 Weight 85.8 kg Results 09/08/21 06:36 09/08/21 06:36 Cardiac Enzymes 09/08/21 Range/Units 06:36 AST 123 H (17-59) U/L CBC 09/08/21 Range/Units 06:36 WBC 17.5 H (3.8-10.6) k/uL RBC 4.09 L (4.30-5.90) m/uL Hgb 12.7 L (13.0-17.5) gm/dL Hct 39.8 (39.0-53.0) % Plt Count 129 L (150-450) k/uL Comprehensive Metabolic Panel 09/08/21 Range/Units 06:36 Sodium 136 L (137-145) mmol/L Potassium 3.9 (3.5-5.1) mmol/L Chloride 97 L (98-107) mmol/L Carbon Dioxide 30 (22-30) mmol/L BUN 72 H (9-20) mg/dL Creatinine 2.24 H (0.66-1.25) mg/dL Glucose 77 (74-99) mg/dL Calcium 8.5 (8.4-10.2) mg/dL AST 123 H (17-59) U/L ALT 185 H (4-49) U/L Alkaline Phosphatase 289 H (38-126) U/L Total Protein 5.7 L (6.3-8.2) g/dL Albumin 3.1 L (3.5-5.0) g/dL Current Medications Generic Name Dose Route Start Last Admin Trade Name Freq PRN Reason Stop Dose Admin Albuterol Sulfate 2.5 mg 09/06/21 21:13 Albuterol Nebulized 2.5 Mg/3 Ml INHALATION RT-Q4H PRN Shortness Of Breath Albuterol/Ipratropium 3 ml 09/07/21 08:00 09/08/21 07:53 Ipratropium-Albuterol 3 Ml Neb INHALATION 3 ml RT-QID ALONZO Administration Allopurinol 100 mg 09/08/21 09:00 09/08/21 08:45 Allopurinol 100 Mg Tab PO 100 mg DAILY ALONZO Administration Aspirin 81 mg 09/08/21 09:00 09/08/21 08:45 Aspirin 81 Mg PO Not Given DAILY [facility] Budesonide/Formoterol Fumarate 1 puff 09/07/21 20:00 09/08/21 07:53 Symbicort 160-4.5 Mcg Inhaler INHALATION 1 puff RT-BID ALONZO Administration Diltiazem HCl 90 mg 09/06/21 21:30 09/08/21 08:44 Diltiazem Oral 30 Mg Tab PO 90 mg BID ALONZO Administration Flecainide Acetate 100 mg 09/06/21 21:30 09/08/21 08:44 Flecainide 50 Mg Tab PO 100 mg BID ALONZO Administration Furosemide 80 mg 09/08/21 16:00 Furosemide 80 Mg Tab PO BID@0900,1600 [facility] Hydralazine HCl 100 mg 09/06/21 22:00 09/08/21 08:44 Hydralazine Hcl 50 Mg Tab PO 100 mg TID ALONZO Administration Insulin Aspart 0 unit 09/06/21 21:43 09/08/21 06:19 Insulin Aspart (Novolog) 100 Unit/Ml Vial SQ Not Given ACHS [facility] Protocol Insulin Detemir 48 unit 09/06/21 21:30 09/07/21 20:31 Insulin Detemir (Levemir) 100 Unit/Ml Syr SQ 48 unit HS [facility] Administration Isosorbide Mononitrate 30 mg 09/07/21 11:15 09/08/21 08:44 Isosorbide Mononitrate Er 30 Mg Tab.Er.24h PO 30 mg DAILY ALONZO Administration Metoprolol Tartrate 50 mg 09/06/21 21:30 09/08/21 08:45 Metoprolol Tartrate 50 Mg Tab PO 50 mg BID ALONZO Administration Miscellaneous Information 1 each 09/06/21 21:28 Potassium Replacement Protocol 1 Each Misc MISCELLANE DAILY PRN Per Protocol Protocol Montelukast Sodium 10 mg 09/07/21 21:00 09/07/21 20:32 Montelukast 10 Mg Tab PO 10 mg HS ALONZO Administration Naloxone HCl 0.2 mg 09/06/21 17:15 Naloxone 0.4 Mg/Ml 1 Ml Vial IV Q2M PRN Opioid Reversal Nitroglycerin 0.4 mg 09/06/21 21:30 Nitroglycerin Sl Tabs 0.4 Mg Tab SUBLINGUAL Q5M PRN Chest Pain Pantoprazole Sodium 40 mg 09/07/21 11:15 09/08/21 05:55 Pantoprazole 40 Mg Tablet PO 40 mg [id number]-[id number] ALONZO Administration Pravastatin Sodium 20 mg 09/06/21 21:30 09/08/21 08:44 Pravastatin Sodium 20 Mg Tab PO 20 mg DAILY [facility] Administration Spironolactone 12.5 mg 09/08/21 09:00 09/08/21 08:44 Spironolactone 25 Mg Tab PO 12.5 mg DAILY [facility] Administration Zolpidem Tartrate 5 mg 09/06/21 21:30 09/07/21 20:32 Zolpidem 5 Mg Tab PO 5 mg HS PRN Administration Insomnia Intake and Output 09/07/21 09/08/21 09/08/21 22:59 06:59 14:59 Intake Total 120 480 Balance 120 480 Intake: Oral 120 480 Other: Voiding Method Toilet Toilet Toilet # Voids 2 2 1 Weight 85.8 kg 09/08/21 06:36 09/08/21 06:36
--- NOTE | 2021-09-08 15:34 | CDI ---
Documentation Clarification Form Date: 09/08/2021 03:24:08 PM From: Lauren Anna CCS, CCDS Admit Date: 09/06/2021 06:14:00 PM Patient Name: Jim Lieberman Visit Number: [id number] Discharge Date: ATTENTION: The Clinical Documentation Specialists (CDI) and [facility] Coding Staff appreciate your assistance in clarifying documentation. Please respond to the clarification below the line at the bottom and electronically sign. The CDI & [facility] Coding staff will review the response and follow-up if needed. Please note: Queries are made part of the Legal Health Record. If you have any questions, please contact the author of this message via ITS. Dr. Ascencion Atkins: Atrial Flutter is documented in the 09/06 ED Note per the EKG: Atrial flutter with variable AV block, Incomplete LBBB, ST & T wave abnormality, consider inferolateral ischemia, Prolonged QT. Additional clarification regarding the type of Atrial Flutter is requested. History/Risk factors per the 09/07 H/P: COPD on Home O2, Known lung mass with liver lesions ad liver cirrhosis due to previous alcohol abuse, possibly metastatic, Persistent Atrial Fibrillation with Pacemaker, SSS, CAD with stent, IDDM II, Hypertension, Hyperlipidemia, Chronic Diastolic CHF, Former smoker. Clinical Indicators: Presented to the ED on 09/06 via EMS with SOB, Abdominal distention, on Palliative Care. Diarrhea for several days. Admit with Ascites, Bilateral Pleural Effusions and Elevated Troponins 09/06 VS: HR: 94 - 69 - 70 09/06 EKG: R 91, Atrial flutter with variable AV block, Incomplete LBBB, ST & T wave abnormality, consider inferolateral ischemia, Prolonged QT, Abnormal EKG. Treatment: Telemetry, Insulin sliding scale, O2, po KDur, IV Narcan, IV fl rate 75 q13H, INH Ventolin, po Cardizem 90 mg BID, po Tambocor 100 mg BID, po Lopressor 50 mg BID, Nitro sl, po Apresoline Please clarify the type of Atrial Flutter, if known: [ ] Typical/Type I [ ] Atypical/Type II [ ] Other, please specify [ ] Unable to determine (Template Last Revised: January 2021) MTDD
[2021-09-08] MEDS: FUROSEMIDE 80 MG TAB PO SCH (15:36)
[2021-09-08 17:11] LABS: Glucose,Whole Blood 218 mg/dL (75-99)
[2021-09-08 20:05] LABS: Glucose,Whole Blood 269 mg/dL (75-99)
[2021-09-08] MEDS: INSULIN DETEMIR (LEVEMIR) 100 UNIT/ML SYR SQ SCH (20:25)
[2021-09-08] MEDS: ZOLPIDEM 5 MG TAB PO PRN (20:26)
[2021-09-08] MEDS: MONTELUKAST 10 MG TAB PO SCH (20:26)
[2021-09-08] MEDS ORDERED: AMIODARONE 360 MG in DEXTROSE 5% IN WATER 200 ML IV ONE ×2 (21:15)
[2021-09-08] MEDS ORDERED: HEPARIN SOD,PORK IN 0.45% NACL 25,000 UNIT in 0.45% NACL 1 250ML.BAG IV SCH (21:45)
[2021-09-08] MEDS ORDERED: DEXTROSE 5% IN WATER 100 ML with AMIODARONE 150 MG IV ONE (22:00)
[2021-09-09] MEDS ORDERED: AMIODARONE 450 MG in DEXTROSE 5% IN WATER 250 ML IV SCH ×2 (04:00)
[2021-09-09 06:05] LABS: Glucose,Whole Blood 43 mg/dL (75-99)
[2021-09-09] MEDS: PANTOPRAZOLE 40 MG TABLET PO SCH (06:06)
[2021-09-09] MEDS: INSULIN ASPART (NovoLOG) 100 UNIT/ML VIAL SQ SCH ×4 (06:07→20:55)
[2021-09-09] MEDS: FLECAINIDE 50 MG TAB PO SCH ×2 (06:15→20:55)
[2021-09-09] MEDS: METOPROLOL TARTRATE 50 MG TAB PO SCH ×2 (06:15→20:56)
[2021-09-09 06:19] LABS: Glucose,Whole Blood 61 mg/dL (75-99)
[2021-09-09 06:36] LABS: Glucose,Whole Blood 91 mg/dL (75-99)
[2021-09-09 07:27] LABS: Basophils % (A) 0 %; Eosinophils % (A) 0 %; HCT 42.7 % (39.0-53.0); HGB 14.4 gm/dL (13.0-17.5); Lymphocytes # (A) 0.8 k/uL (1.0-4.8); Lymphocytes % (A) 3 %; MCHC 33.6 g/dL (31.0-37.0); MCV 95.1 fL (80.0-100.0); Mean Platelet Volume 11.5; Monocytes % (A) 5 %; Neutrophils # (A) 20.1 k/uL (1.3-7.7); Neutrophils % (A) 91 %; Platelet Count 165 k/uL (150-450); RBC 4.49 m/uL (4.30-5.90); RDW 15.4 % (11.5-15.5); WBC 22.1 k/uL (3.8-10.6)
[2021-09-09 07:58] LABS: Calcium 8.9 mg/dL (8.4-10.2); Magnesium 2.7 mg/dL (1.6-2.3); Potassium 3.4 mmol/L (3.5-5.1)
[2021-09-09] MEDS: SYMBICORT 160-4.5 MCG INHALER INHALATION SCH ×2 (08:20→20:08)
[2021-09-09] MEDS: IPRATROPIUM-ALBUTEROL 3 ML NEB INHALATION SCH ×4 (08:20→20:08)
[2021-09-09 08:50] LABS: LDH, Body Fluid Source Ascites; Total Protein, Body Fluid 1350 mg/dL
[2021-09-09] MEDS ORDERED: Potassium Replacement Protocol 1 EACH MISC MISCELLANE PRN (09:26)
[2021-09-09] MEDS: DILTIAZEM ORAL 30 MG TAB PO SCH ×2 (09:33→20:54)
[2021-09-09] MEDS: SPIRONOLACTONE 25 MG TAB PO SCH (09:33)
[2021-09-09] MEDS: PRAVASTATIN SODIUM 20 MG TAB PO SCH (09:33)
[2021-09-09] MEDS: FUROSEMIDE 80 MG TAB PO SCH ×2 (09:33→17:44)
[2021-09-09] MEDS: ASPIRIN 81 MG PO SCH ×4 (09:33→09:46)
[2021-09-09] MEDS: ISOSORBIDE MONONITRATE ER 30 MG TAB.ER.24H PO SCH (09:33)
[2021-09-09] MEDS: allopurinoL 100 MG TAB PO SCH (09:33)
[2021-09-09] MEDS: hydrALAZINE HCL 50 MG TAB PO SCH ×3 (09:33→20:55)
[2021-09-09] MEDS: POTASSIUM CHLORIDE ER 20 MEQ TAB.ER PO SCH ×2 (09:41→12:33)
--- NOTE | 2021-09-09 10:44 | P.PN ---
Subjective Patient is seen in follow-up for acute kidney injury on chronic kidney disease. Renal function fairly stable. No chest pain or shortness of breath. Good urine output. Vital signs are stable. General: The patient appeared well nourished and normally developed. HEENT: Head exam is unremarkable. Neck is without jugular venous distension. LUNGS: Breath sounds decreased. HEART: Rate and Rhythm are regular. ABDOMEN: Soft, mild distention noted. EXTREMITITES: 1+ edema. Objective - Vital Signs Vital signs: Vital Signs Temp 97.9 F 09/09/21 09:31 Pulse 68 09/09/21 09:31 Resp 16 09/09/21 09:31 BP 141/80 09/09/21 09:31 Pulse Ox 96 09/09/21 09:31 Intake & Output 09/08/21 09/09/21 09/09/21 18:59 06:59 18:59 Intake Total 1798 240 Balance 1798 240 Weight 86.3 kg Intake: Oral 1798 240 Other: Voiding Method Toilet Toilet # Voids 3 1 1 - Labs CBC & Chem 7: 09/09/21 06:38 09/09/21 06:38 Labs: Abnormal Lab Results - Last 24 Hours (Table) 09/08/21 09/08/21 09/08/21 Range/Units 11:28 16:58 20:03 WBC (3.8-10.6) k/uL Potassium (3.5-5.1) mmol/L Chloride (98-107) mmol/L Carbon Dioxide (22-30) mmol/L BUN (9-20) mg/dL Creatinine (0.66-1.25) mg/dL Glucose (74-99) mg/dL POC Glucose (mg/dL) 208 H 218 H 269 H (75-99) mg/dL Magnesium (1.6-2.3) mg/dL 09/09/21 09/09/21 09/09/21 Range/Units 06:04 06:18 06:38 WBC (3.8-10.6) k/uL Potassium 3.4 L (3.5-5.1) mmol/L Chloride 97 L (98-107) mmol/L Carbon Dioxide 31 H (22-30) mmol/L BUN 72 H (9-20) mg/dL Creatinine 2.35 H (0.66-1.25) mg/dL Glucose 30 L* (74-99) mg/dL POC Glucose (mg/dL) 43 L 61 L (75-99) mg/dL Magnesium 2.7 H (1.6-2.3) mg/dL 09/09/21 Range/Units 06:38 WBC 22.1 H (3.8-10.6) k/uL Potassium (3.5-5.1) mmol/L Chloride (98-107) mmol/L Carbon Dioxide (22-30) mmol/L BUN (9-20) mg/dL Creatinine (0.66-1.25) mg/dL Glucose (74-99) mg/dL POC Glucose (mg/dL) (75-99) mg/dL Magnesium (1.6-2.3) mg/dL Microbiology - Last 24 Hours (Table) 09/07/21 10:15 Gram Stain - Preliminary Paracentesis Fluid Body Fluid Culture - Preliminary Assessment and Plan Plan: Assessment: 1. Chronic kidney disease stage IV secondary to nephrosclerosis and cardiorenal syndrome. Baseline creatinine 1.8-2.4. 2. Acute on chronic diastolic CHF. 3. Lung nodule along with liver lesion and spine lesion. Liver biopsy was scheduled for tomorrow. 4. Ascites status post paracentesis on September 07 - 2.2 L drained. 5. Volume overload. 6. History of A. fib. 7. Hypertension with chronic kidney disease. Stable. 8. Hypokalemia from diuresis. Magnesium not low. Plan: Maintain Lasix 80 mg orally twice daily. 1500 mL fluid restriction. Avoid nephrotoxins. Continue to monitor renal function and urine output. I advised the patient to monitor his weight closely at home and call if edema worsens or gains more than 3 pounds in 1 week duration. Follow-up outpatient 1 week post discharge. Potassium being replaced.
[2021-09-09 11:35] LABS: Glucose,Whole Blood 106 mg/dL (75-99)
--- NOTE | 2021-09-09 11:59 | P.PN ---
Subjective Progress Note Date: 09/09/21 HISTORY OF PRESENT ILLNESS: This is a 75 year old with a past medical history significant for coronary artery disease status post PCI to the diagonal branch and circumflex, paroxysmal atrial fibrillation not on anticoagulation secondary to nosebleeds, sick sinus syndrome status post pacemaker, diabetes, chronic kidney disease, hypertension, diastolic heart failure, COPD, and former nicotine dependence. Patient follows in the office with Dr. Morgan. We have been asked to see the patient in consultation for CHF. Patient examined at the bedside. Patient states he was supposed to have a liver biopsy performed yesterday but he was experiencing increased abdominal distention so he came to the ER for further evaluation. Patient underwent paracentesis yesterday by interventional radiology with removal of 2.2 L of serous fluid. Patient currently denies chest pain or pressure. EKG reveals atrial flutter with incomplete left bundle branch block Chest xray patchy bilateral infiltrates correlate for multifocal pneumonia. Neoplasm not excluded. Laboratory data: WBC 17.5. Hemoglobin 12.7. Platelet count 129. Sodium 136. Potassium 3.9. BUN 72. Creatinine 2.24. Bilirubin 4.4. AST 123. ALT 185. Current home cardiac medications include hydralazine 100 mg 3 times a day, C ardizem 90 mg twice a day, Aldactone 12.5 mg daily, Pravachol 20 mg daily, metoprolol tartrate 50 g twice a day, Imdur 30 mg daily, Lasix 80 mg the morning and 40 mg in the afternoon, flecainide 100 mg twice a day, and aspirin 81 mg daily Most recent echocardiogram obtained in June 2021 reveals ejection fraction 55- 60%, mild aortic stenosis, mild mitral regurgitation, mild tricuspid regurgitation 09/09/2021 Patient examined at the bedside. Patient denies chest pain or pressure. Denies shortness of breath. Cytology of ascitic fluid negative for malignancy. Patient was in and out of atrial fibrillation overnight. He is currently in sinus mechanism. PHYSICAL EXAM: VITAL SIGNS: Reviewed. GENERAL: Well-developed in no acute distress. HEENT: Head is normocephalic. Pupils are equal, round. Sclerae anicteric. Mucous membranes of the mouth are moist. Neck supple. No JVD or thyromegaly LUNGS: Respirations even and unlabored. Lungs diminished to auscultation bilaterally. HEART: Regular rate and rhythm. S1 and S2 heard. ABDOMEN: Soft. Distended. Nontender. EXTREMITIES: Normal range of motion. No clubbing or cyanosis. Peripheral pulses intact. Trace bilateral lower extremity edema NEUROLOGIC: Awake and alert. Oriented x 3. ASSESSMENT: Ascites, status post paracentesis Lung and liver lesions, r/o malignancy Coronary artery disease with previous PCI Chronic kidney disease Chronic diastolic heart failure Paroxysmal atrial fibrillation/atypical flutter, not on anticoagulation COPD Hypertension Diabetes PLAN: Continue current home cardiac medications May hold aspirin in lieu of any possible invasive procedures such as a liver biopsy Patient is currently stable from a cardiac perspective Further recommendations pending patient's course Nurse practitioner note has been reviewed by physician. Signing provider agrees with the documented findings, assessment, and plan of care. Objective - Vital Signs Vital signs: Vital Signs Temp 97.9 F 09/09/21 09:31 Pulse 92 09/09/21 11:51 Resp 16 09/09/21 09:31 BP 141/80 09/09/21 09:31 Pulse Ox 96 09/09/21 09:31 Intake & Output 09/08/21 09/09/21 09/09/21 18:59 06:59 18:59 Intake Total 1798 240 Balance 1798 240 Weight 86.3 kg Intake: Oral 1798 240 Other: Voiding Method Toilet Toilet Toilet # Voids 3 1 1 - Labs CBC & Chem 7: 09/09/21 06:38 09/09/21 06:38 Labs: Abnormal Lab Results - Last 24 Hours (Table) 09/08/21 09/08/21 09/09/21 Range/Units 16:58 20:03 06:04 WBC (3.8-10.6) k/uL Potassium (3.5-5.1) mmol/L Chloride (98-107) mmol/L Carbon Dioxide (22-30) mmol/L BUN (9-20) mg/dL Creatinine (0.66-1.25) mg/dL Glucose (74-99) mg/dL POC Glucose (mg/dL) 218 H 269 H 43 L (75-99) mg/dL Magnesium (1.6-2.3) mg/dL 09/09/21 09/09/21 09/09/21 Range/Units 06:18 06:38 06:38 WBC 22.1 H (3.8-10.6) k/uL Potassium 3.4 L (3.5-5.1) mmol/L Chloride 97 L (98-107) mmol/L Carbon Dioxide 31 H (22-30) mmol/L BUN 72 H (9-20) mg/dL Creatinine 2.35 H (0.66-1.25) mg/dL Glucose 30 L* (74-99) mg/dL POC Glucose (mg/dL) 61 L (75-99) mg/dL Magnesium 2.7 H (1.6-2.3) mg/dL 09/09/21 Range/Units 11:33 WBC (3.8-10.6) k/uL Potassium (3.5-5.1) mmol/L Chloride (98-107) mmol/L Carbon Dioxide (22-30) mmol/L BUN (9-20) mg/dL Creatinine (0.66-1.25) mg/dL Glucose (74-99) mg/dL POC Glucose (mg/dL) 106 H (75-99) mg/dL Magnesium (1.6-2.3) mg/dL Microbiology - Last 24 Hours (Table) 09/07/21 10:15 Gram Stain - Preliminary Paracentesis Fluid Body Fluid Culture - Preliminary
--- NOTE | 2021-09-09 13:11 | P.PN ---
Subjective Progress Note Date: 09/09/21 Principal diagnosis: Ascites. Pulmonary/critical care consultation dated 09/08/2021. 66-year-old male, who presents to the emergency department, on September 06, complaining of shortness of breath, and increasing abdominal distention. The patient has a history of a lung mass, with multiple lesions in the liver, consistent with metastatic disease. Unfortunately, he has not had his CT-guided fine-needle biopsy of his liver lesions, which hopefully will give us a diagnosis and a stage. The patient does have a history of CHF, and COPD. He sees Dr. Valentine, as a primary. Recently, the patient's health has been declining, and is been in and out of the hospital multiple times recently. He denies any fever or chills. He denies any chest pain. He does admit to some recent diarrhea. He apparently is in palliative care. A paracentesis abdominis was done, and 2 L of fluid was removed. He is currently on 2 L nasal cannula. He's not receiving any IV fluids. Cytology from the ascitic fluid is pending. In addition, the patient has a history of atrial fibrillation, coronary artery disease, heart failure, COPD, diabetes mellitus, GERD, hyperlipidemia, hypertension, myocardial infarction, status post pacemaker insertion, diabetic neuropathy, chronic kidney disease, liver cirrhosis, and celiac disease, as well as dermatitis herpetiformis. White count of 17.5, hemoglobin 12.7, hematocrit 39.8, and platelet count 129,000. Sodium 136, potassium 3.9, chlorides 97, CO2 30, anion gap 9, BUN 72, creatinine 2.24. AST is 123, ALT is 185. Albumin is 3.1. Chest x-ray shows bilateral patchy infiltrates, likely related to underlying malignancy rather than pneumonia. CT of the abdomen and pelvis show evidence of ascites, small bilateral pleural effusions, and multiple nodules within the lung tobias. Progress note dated 09/09/2021. 66-year-old male, who presented with shortness of breath, and increasing abdominal distention. The patient had a paracentesis abdominis, performed by interventional radiology. 2.2 L of fluid was removed. The fluid cytology was negative. The patient has a lesion in his left lung, and multiple lesions in his liver on PET scan. We are thinking that his primary diagnosis is lung cancer with metastasis. He will still likely need a CT-guided fine-needle aspiration of a liver lesion, which would give us both a diagnosis and a staged. The patient's overall health in the last 6-8 weeks, has significantly declined, and he has had multiple admissions in the hospital. Currently, he is on room air. White count 22.1, hemoglobin 14.4, hematocrit 42.7, and platelet count 165,000. Sodium 137, potassium 3.4, chlorides 97, CO2 31, anion gap 9, BUN 72, and creatinine 2.35. Objective - Vital Signs Vital signs: Vital Signs Temp 97.9 F 09/09/21 09:31 Pulse 69 09/09/21 12:31 Resp 18 09/09/21 12:31 BP 123/61 09/09/21 12:31 Pulse Ox 94 L 09/09/21 12:31 Intake & Output 09/08/21 09/09/21 09/09/21 18:59 06:59 18:59 Intake Total 1798 240 Balance 1798 240 Weight 86.3 kg Intake: Oral 1798 240 Other: Voiding Method Toilet Toilet Toilet # Voids 3 1 1 - Exam No acute distress, oriented 3. Currently on room air. No overt respiratory distress, conversational dyspnea, or use of accessory muscles. Room air saturation is 94%. HEENT examination is grossly unremarkable. Neck supple. Full range of motion. No adenopathy thyromegaly or neck vein distention. Cardiovascular examination reveals regular rhythm rate. S1-S2 normal. No S3 or S4. No discernible murmur noted. Heart rate is 92 bpm. Lungs reveal mild scattered rhonchi. No wheezes or crackles. Breath sounds equal bilaterally. Abdomen is quite distended with a fluid wave. Mild tenderness on palpation. No masses. Extremities are intact. No cyanosis or clubbing. Mild lower extremity edema is noted. Skin is without rash or lesion. Neurologic examination is brief but nonfocal. - Labs CBC & Chem 7: 09/09/21 06:38 09/09/21 06:38 Labs: Abnormal Lab Results - Last 24 Hours (Table) 09/08/21 09/08/21 09/09/21 Range/Units 16:58 20:03 06:04 WBC (3.8-10.6) k/uL Potassium (3.5-5.1) mmol/L Chloride (98-107) mmol/L Carbon Dioxide (22-30) mmol/L BUN (9-20) mg/dL Creatinine (0.66-1.25) mg/dL Glucose (74-99) mg/dL POC Glucose (mg/dL) 218 H 269 H 43 L (75-99) mg/dL Magnesium (1.6-2.3) mg/dL 09/09/21 09/09/21 09/09/21 Range/Units 06:18 06:38 06:38 WBC 22.1 H (3.8-10.6) k/uL Potassium 3.4 L (3.5-5.1) mmol/L Chloride 97 L (98-107) mmol/L Carbon Dioxide 31 H (22-30) mmol/L BUN 72 H (9-20) mg/dL Creatinine 2.35 H (0.66-1.25) mg/dL Glucose 30 L* (74-99) mg/dL POC Glucose (mg/dL) 61 L (75-99) mg/dL Magnesium 2.7 H (1.6-2.3) mg/dL 09/09/21 Range/Units 11:33 WBC (3.8-10.6) k/uL Potassium (3.5-5.1) mmol/L Chloride (98-107) mmol/L Carbon Dioxide (22-30) mmol/L BUN (9-20) mg/dL Creatinine (0.66-1.25) mg/dL Glucose (74-99) mg/dL POC Glucose (mg/dL) 106 H (75-99) mg/dL Magnesium (1.6-2.3) mg/dL Microbiology - Last 24 Hours (Table) 09/07/21 10:15 Gram Stain - Preliminary Paracentesis Fluid Body Fluid Culture - Preliminary Assessment and Plan Assessment: Suspected lung cancer, with liver metastasis, not yet diagnosed. Status post large-volume paracentesis abdominis, cytology is negative. History of underlying COPD from previous tobacco use. History of atrial fibrillation. History of coronary artery disease. History of CHF. History of diabetes mellitus with diabetic neuropathy. History of gastroesophageal reflux disease. History of hyperlipidemia. History of hypertension. Chronic kidney disease. Prior history of myocardial infarction, status post PCI with stents. Status post pacemaker insertion. History of BPH. Multiple other medical problems and comorbidities. Plan: Plan dated 09/08/2021. We will await the cytology from the paracentesis abdominis. The patient was scheduled for a CT-guided fine-needle aspiration of a liver lesion. He has multiple lesions in the liver seen on most recent PET scan. He also has a suspicious lesion in the left lung. Overall prognosis remains guarded. He apparently is in palliative care. We will continue to follow make recommendations where appropriate. No additional recommendations at this time. Plan dated 09/09/2021. The cytology on the peritoneal fluid was negative. We were hoping that that would give us a diagnosis. The patient will still need a CT-guided fine-needle aspiration of one of his liver lesions, which did light up on PET scan. Additional recommendations and suggestions are forthcoming. Prognosis is guarded. The patient has apparently decided on palliative care. We will continue to follow make recommendations where appropriate. Time with Patient: Less than 30
[2021-09-09 13:29] LABS: Large Platelets Present
--- NOTE | 2021-09-09 16:06 | CDI ---
Documentation Clarification Form Date: 09/08/2021 03:24:00 PM From: Lauren Anna CCS, CCDS Admit Date: 09/06/2021 06:14:00 PM Patient Name: Jim Lieberman Visit Number: [id number] Discharge Date: ATTENTION: The Clinical Documentation Specialists (CDI) and [facility] Coding Staff appreciate your assistance in clarifying documentation. Please respond to the clarification below the line at the bottom and electronically sign. The CDI & [facility] Coding staff will review the response and follow-up if needed. Please note: Queries are made part of the Legal Health Record. If you have any questions, please contact the author of this message via ITS. Dr. Ascencion Atkins: Atrial Flutter is documented in the 09/06 ED Note per the EKG: Atrial flutter with variable AV block, Incomplete LBBB, ST & T wave abnormality, consider inferolateral ischemia, Prolonged QT. Additional clarification regarding the type of Atrial Flutter is requested. History/Risk factors per the 09/07 H/P: COPD on Home O2, Known lung mass with liver lesions ad liver cirrhosis due to previous alcohol abuse, possibly metastatic, Persistent Atrial Fibrillation with Pacemaker, SSS, CAD with stent, IDDM II, Hypertension, Hyperlipidemia, Chronic Diastolic CHF, Former smoker. Clinical Indicators: Presented to the ED on 09/06 via EMS with SOB, Abdominal distention, on Palliative Care. Diarrhea for several days. Admit with Ascites, Bilateral Pleural Effusions and Elevated Troponins 09/06 VS: HR: 94 - 69 - 70 09/06 EKG: R 91, Atrial flutter with variable AV block, Incomplete LBBB, ST & T wave abnormality, consider inferolateral ischemia, Prolonged QT, Abnormal EKG. Treatment: Telemetry, Insulin sliding scale, O2, po KDur, IV Narcan, IV fl rate 75 q13H, INH Ventolin, po Cardizem 90 mg BID, po Tambocor 100 mg BID, po Lopressor 50 mg BID, Nitro sl, po Apresoline Please clarify the type of Atrial Flutter, if known: [ ] Typical/Type I [ ] Atypical/Type II [ ] Other, please specify [ ] Unable to determine (Template Last Revised: January 2021) MTDD
[2021-09-09 16:33] LABS: Glucose,Whole Blood 232 mg/dL (75-99)
[2021-09-09 16:42] LABS: INR 1.1 (<1.2); Prothrombin Time 11.6 sec (9.0-12.0)
--- NOTE | 2021-09-09 16:44 | P.CONS ---
History of Present Illness - Reason for Consult Consult date: 09/09/21 Liver cancer Requesting physician: Lilibeth Urias - Chief Complaint Shortness of breath - History of Present Illness This is a 66-year-old male who presented to the emergency department 3 days ago with complaints of abdominal distention and shortness of breath. Zabala also states he has had abdominal distention that he has noticed a little over a month ago. He has a significant history of alcohol abuse for at least 30 years. He states he drank quite heavily but would not elaborate as to what and how much. States he quit 10-12 years ago. States he has been diagnosed in the past with cirrhosis of the liver he thinks maybe 10 years ago and also had to undergo a paracentesis at that time. Apparently the patient recently has undergone palliative care for history of lung cancer and concern for liver cancer as well. Patient states he's been following up with pulmonology for pulmonary nodules. He had a PET scan 08/20/2021 with findings of high stage neoplasm with cirrhotic liver are multiple hypermetabolic masses could reflect metastatic disease. Abnormal left lung mass with thoracic adenopathy as detailed above. The patient was scheduled for outpatient liver biopsy however did not have done as he came to the emergency department. While here he underwent a CT of the abdomen and pelvis with findings of ascites, small bilateral pleural effusions, multiple nodules within the visualized lung bases and clinical consideration for colitis in the right upper quadrant. 2 days ago he underwent a paracentesis with removal of 2.2 L of fluid. Cytology is back which is stating negative for malignant cells. Patient states he has not seen an oncologist. He does have a history of EGD and colonoscopy in number of 2018 he had EGD with findings of antral gastritis but no evidence of esophagitis or peptic ulcer disease. Colonoscopy revealed polyps in the transverse colon as well as descending colon status post polypectomy and biopsies came back as tubular adenoma. A recommendation for repeat colonoscopy in 3 years. ABC 22 hemoglobin 14.4 hematocrit 42 platelet count 165,000 INR 1.1 total bilirubin 4.4 AST 23 ALT 185 alkaline phosphatase 289 alpha-fetoprotein tumor marker less than 1.8. Review of Systems REVIEW OF SYSTEMS: CARDIOPULMONARY: No chest pain or shortness of breath. Gastrointestinal: Abdominal distention and discomfort, now relieved status post paracentesis. No nausea or vomiting. No hematemesis, coffee-ground emesis. No rectal bleeding, or melena. GENITOURINARY: No dysuria or hematuria. MUSCULOSKELETAL: Reports normal range of motion., Joint pain. SKIN: No rashes. No jaundice. ENDOCRINE: No chills, fevers. No excessive weight gain or loss. No polydipsia or polyuria. PSYCHIATRIC: Unremarkable. NEUROLOGY: No change in mental status. Denies dizziness, headache. ENT: Vision unremarkable. CONSTITUTIONAL: No recent weight loss. No fever, chills, night sweats. Past Medical History Past Medical History: Atrial Fibrillation, Coronary Artery Disease (CAD), Chest Pain / Angina, Heart Failure, COPD, Diabetes Mellitus, GERD/Reflux, Hyperlipidemia, Hypertension, Liver Disease, Myocardial Infarction (OK), Prostate Disorder, Renal Disease, Skin Disorder, Vascular Disorder Additional Past Medical History / Comment(s): history ofAfib with RVR, tachybrady syndrome with pacemaker, IDDM type II, neuropathy bilateral feet, s tage III chronic kidney disease, chronic CHF, R pleural effusion, liver cirrhosis, BPH, DJD, herniated discs low back, chronic low back pain, varicose veins , anemia with hx of iron infusions., past asbestos exposure, celiac disease, dermatitis herpetiformis. Last Myocardial Infarction Date:: 06/2018 History of Any Multi-Drug Resistant Organisms: None Reported Past Surgical History: Ablation, Cardiac Ablation, Cholecystectomy, Heart Catheterization With Stent, Pacemaker, Tonsillectomy Additional Past Surgical History / Comment(s): PCI with STENTS x 3, bilateral cataracts removed with lens implants, colonoscopy, [employer] pacemaker Past Anesthesia/Blood Transfusion Reactions: No Reported Reaction Date of Last Stent Placement:: 2017 Type of Cardiac Device: Permanent Pacemaker Device Placement Date:: 02/02/19 Past Psychological History: No Psychological Hx Reported Additional Psychological History / Comment(s): Pt resides with his spouse. He is independent. He is retired from [employer] Smoking Status: Former smoker Past Alcohol Use History: None Reported Additional Past Alcohol Use History / Comment(s): Started smoking in 1967, a half pack a day. Quit smoking January 2019. Pt states he drank heavy in the past but since 2008 rarely. Past Drug Use History: None Reported - Past Family History Mother Family Medical History: Diabetes Mellitus Father Family Medical History: Myocardial Infarction (OK) Additional Family Medical History / Comment(s): Father had a OK in his 70s. Brother(s) Family Medical History: Myocardial Infarction (OK) Additional Family Medical History / Comment(s): Brother had a OK in his 50s. Medications and Allergies Home Medications Medication Instructions Recorded Confirmed Type Fluticasone Nasal [place] [Flonase 1 spr EA NOSTRIL DAILY 05/12/16 09/06/21 History Nasal [place]] Isosorbide Mononitrate ER [Imdur] 30 mg PO DAILY 01/16/19 09/06/21 History Pantoprazole [Protonix] 40 mg PO DAILY 01/16/19 09/06/21 History Montelukast [Singulair] 10 mg PO HS 02/12/19 09/06/21 History Loratadine [Claritin] 10 mg PO DAILY 03/28/19 09/06/21 History Metoprolol Tartrate [Lopressor] 50 mg PO BID 03/28/19 09/06/21 History Vitamin B Complex 1 cap PO DAILY 06/24/19 09/06/21 History allopurinoL [Zyloprim] 100 mg PO DAILY 06/24/19 09/06/21 History Ubidecarenone [Co Q-10] 200 mg PO DAILY 08/01/19 09/06/21 History Pravastatin Sodium [Pravachol] 20 mg PO DAILY 11/11/19 09/06/21 History Albuterol Sulfate [Ventolin HFA] 1 - 2 puff INHALATION RT-Q4H PRN 07/25/21 09/06/21 History Fluticasone/Salmeterol 1 puff INHALATION RT-BID 07/25/21 09/06/21 History [Fluticasone-Salmeterol 232-14] Folic Acid 0.4 mg PO DAILY 07/25/21 09/06/21 History dilTIAZem HCL 90 mg PO BID 07/25/21 09/06/21 History hydrALAZINE HCL [Apresoline] 100 mg PO TID 07/25/21 09/06/21 History Nitroglycerin Sl Tabs [Nitrostat] 0.4 mg SL Q5M PRN 07/26/21 09/06/21 History Ipratropium-Albuterol Nebulize 3 ml INHALATION RT-QID 30 Days #90 07/30/21 09/06/21 Rx [Duoneb 0.5 mg-3 mg/3 ml Soln] ml Aspirin 81 mg PO DAILY #30 08/09/21 09/06/21 Rx Sodium Chloride 0.65% Nasal [Deep 2 spray NASAL QID PRN #7 ml 08/09/21 09/06/21 Rx Sea (Saline)] Spironolactone [Aldactone] 12.5 mg PO DAILY #30 tab 08/09/21 09/06/21 Rx Flecainide Acetate 100 mg PO BID 08/18/21 09/06/21 History Furosemide [Lasix] 40 mg PO DAILY@1600 #30 tab 08/19/21 09/06/21 Rx Cholecalciferol (Vitamin D3) 75 mcg PO DAILY 08/30/21 09/06/21 History [Vitamin D3 (3000 Iu)] Furosemide [Lasix] 80 mg PO DAILY 09/06/21 09/06/21 History Insulin Detemir [Levemir Flextouch 48 units SQ HS 09/06/21 09/06/21 History Pen] Insulin Lispro [humaLOG] See Protocol SQ AC-TID 09/06/21 09/06/21 History Iron 27mg 1 tab PO DAILY 09/06/21 09/06/21 History Magnesium Oxide [Mag-Ox] 250 mg PO DAILY 09/06/21 09/06/21 History Zolpidem [Ambien] 5 mg PO HS PRN 09/06/21 09/06/21 History Allergies Allergy/AdvReac Type Severity Reaction Status Date / Time amlodipine Allergy Swelling Verified 09/06/21 14:44 amoxicillin Allergy Anaphylaxis Verified 09/06/21 14:44 cephalexin monohydrate Allergy Rash/Hives Verified 09/06/21 14:44 [From Keflex] clindamycin Allergy Rash/Hives Verified 09/06/21 14:44 Penicillins Allergy Rash/Hives Verified 09/06/21 14:44 Sulfa (Sulfonamide Allergy Anaphylaxis Verified 09/06/21 14:44 Antibiotics) sulfamethoxazole Allergy Anaphylaxis Verified 09/06/21 14:44 [From Bactrim] trimethoprim [From Bactrim] Allergy Anaphylaxis Verified 09/06/21 14:44 carvedilol AdvReac "MAKES ME Verified 09/06/21 14:44 JERILYN" Physical Exam Vitals: Vital Signs Temp Pulse Pulse Resp BP Pulse Ox 09/09/21 15:32 78 18 09/09/21 15:21 78 18 09/09/21 12:31 69 18 123/61 94 L 09/09/21 11:51 92 09/09/21 11:40 89 09/09/21 09:31 97.9 F 68 16 141/80 96 09/09/21 08:35 111 H 18 09/09/21 08:21 110 H 18 94 L 09/09/21 03:27 98.1 F 99 18 120/65 95 09/09/21 01:57 73 09/09/21 00:34 97.8 F 73 18 131/73 96 09/08/21 21:16 141 H 131/85 95 09/08/21 20:17 77 09/08/21 20:07 74 09/08/21 20:00 97.6 F 82 16 157/74 94 L Intake and Output 09/09/21 09/09/21 09/09/21 06:59 14:59 22:59 Intake Total 240 Balance 240 Intake: Oral 240 Other: Voiding Method Toilet Toilet # Voids 1 Weight 86.3 kg General appearance: The patient is alert, oriented, appears in no acute distress. HET: Head is normocephalic and atraumatic. Conjunctiva pink. Sclera anicteric. Neck: Supple without lymphadenopathy. Trachea midline. Heart: S1 S2. Regular rate and rhythm. Lungs: Clear to auscultation. Abdomen: Soft, nontender, mildly distended. No guarding or rigidity. Skin: No rashes. Jaundice. Extremities: Normal skin color and turgor. No pedal edema. Neurological: No focal deficits. Alert and oriented x3. Results CBC & Chem 7: 09/09/21 06:38 09/09/21 06:38 Labs: Abnormal Lab Results - Last 24 Hours (Table) 09/08/21 09/08/21 09/09/21 Range/Units 16:58 20:03 06:04 WBC (3.8-10.6) k/uL Neutrophils # (1.3-7.7) k/uL Lymphocytes # (1.0-4.8) k/uL Potassium (3.5-5.1) mmol/L Chloride (98-107) mmol/L Carbon Dioxide (22-30) mmol/L BUN (9-20) mg/dL Creatinine (0.66-1.25) mg/dL Glucose (74-99) mg/dL POC Glucose (mg/dL) 218 H 269 H 43 L (75-99) mg/dL Magnesium (1.6-2.3) mg/dL 09/09/21 09/09/21 09/09/21 Range/Units 06:18 06:38 06:38 WBC 22.1 H (3.8-10.6) k/uL Neutrophils # 20.1 H (1.3-7.7) k/uL Lymphocytes # 0.8 L (1.0-4.8) k/uL Potassium 3.4 L (3.5-5.1) mmol/L Chloride 97 L (98-107) mmol/L Carbon Dioxide 31 H (22-30) mmol/L BUN 72 H (9-20) mg/dL Creatinine 2.35 H (0.66-1.25) mg/dL Glucose 30 L* (74-99) mg/dL POC Glucose (mg/dL) 61 L (75-99) mg/dL Magnesium 2.7 H (1.6-2.3) mg/dL 09/09/21 Range/Units 11:33 WBC (3.8-10.6) k/uL Neutrophils # (1.3-7.7) k/uL Lymphocytes # (1.0-4.8) k/uL Potassium (3.5-5.1) mmol/L Chloride (98-107) mmol/L Carbon Dioxide (22-30) mmol/L BUN (9-20) mg/dL Creatinine (0.66-1.25) mg/dL Glucose (74-99) mg/dL POC Glucose (mg/dL) 106 H (75-99) mg/dL Magnesium (1.6-2.3) mg/dL Comments: CT of the abdomen and pelvis with findings of ascites, small bilateral pleural effusions, multiple nodules within the visualized lung bases and clinical consideration for colitis in the right upper quadrant. Assessment and Plan (1) Alcoholic cirrhosis of liver with ascites Narrative/Plan: Extensive 6-year-old male with significant history of alcohol abuse for greater than 30 years duration who states he quit drinking 10-12 years ago. Patient states he was first diagnosed with alcoholic cirrhosis of the liver but 10-12 years ago at that time he does recall having to undergo a paracentesis. Has not had to undergo paracentesis since. He's been recently in and out of the hospital and concern for lung cancer with multiple nodules on the lungs. Apparently there is been some concern as well for possible metastatic liver cancer. Patient states he has had a recent abdominal distention that started approximately 1 month ago. His posterior have a biopsy of the liver this past Monday however he ended up back in the hospital with abdominal distention and shortness of breath. Patient has not seen oncology. Not been following with any iv technician her liver specialist. He has seen Dr. Atkins in the past for upper and lower endoscopy in July 2019. Cardiology and pulmonology is also following patient closely. He is currently on Lasix 80 mg twice a day as well as Aldactone 12.5 mg daily. Include dealing with decompensated cirrhosis of the liver related to alcohol abuse. Continue diuretics, will order hepatitis panel. AFP was negative. Paracentesis performed, fluid studies are consistent with portal hypertension although SAAG score cannot be calculated due to lab air. Ascitic fluid Cytology reports negative for malignant cells. Current Visit: Yes Status: Acute Code(s): K70.31 - ALCOHOLIC CIRRHOSIS OF LIVER WITH ASCITES SNOMED Code(s): 525526162 (2) History of alcohol abuse Current Visit: Yes Status: Acute Code(s): F10.11 - ALCOHOL ABUSE, IN REMISSION SNOMED Code(s): 473826222 Plan: 1. Continue symptomatic and supportive care 2. Continue diuretics as ordered 3. Consult to oncology 4. Repeat CMP, will order hepatitis panel 5. Recommend low sodium diet Thank you for this consultation, we will continue to follow. Dr. Alem Atkins I agree with the dictator's note, documented as a scribe by Neda Patel.
[2021-09-09 16:48] LABS: Partial Thromboplastin Time 20.2 sec (22.0-30.0)
--- NOTE | 2021-09-09 19:23 | P.CONS ---
History of Present Illness - Reason for Consult Consult date: 09/09/21 Concern for metastatic Malignancy Requesting physician: Neda Sanchez Review of Systems All systems: negative Constitutional: Reports as per HPI Past Medical History Past Medical History: Atrial Fibrillation, Coronary Artery Disease (CAD), Chest Pain / Angina, Heart Failure, COPD, Diabetes Mellitus, GERD/Reflux, Hype rlipidemia, Hypertension, Liver Disease, Myocardial Infarction (NV), Prostate Disorder, Renal Disease, Skin Disorder, Vascular Disorder Additional Past Medical History / Comment(s): history ofAfib with RVR, tachybrady syndrome with pacemaker, IDDM type II, neuropathy bilateral feet, stage III chronic kidney disease, chronic CHF, R pleural effusion, liver cirrhosis, BPH, DJD, herniated discs low back, chronic low back pain, varicose veins , anemia with hx of iron infusions., past asbestos exposure, celiac disease, dermatitis herpetiformis. Last Myocardial Infarction Date:: 06/2018 History of Any Multi-Drug Resistant Organisms: None Reported Past Surgical History: Ablation, Cardiac Ablation, Cholecystectomy, Heart Catheterization With Stent, Pacemaker, Tonsillectomy Additional Past Surgical History / Comment(s): PCI with STENTS x 3, bilateral cataracts removed with lens implants, colonoscopy, [employer] pacemaker Past Anesthesia/Blood Transfusion Reactions: No Reported Reaction Date of Last Stent Placement:: 2017 Type of Cardiac Device: Permanent Pacemaker Device Placement Date:: 02/02/19 Past Psychological History: No Psychological Hx Reported Additional Psychological History / Comment(s): Pt resides with his spouse. He is independent. He is retired from [employer] Smoking Status: Former smoker Past Alcohol Use History: None Reported Additional Past Alcohol Use History / Comment(s): Started smoking in 1967, a half pack a day. Quit smoking January 2019. Pt states he drank heavy in the past but since 2008 rarely. Past Drug Use History: None Reported - Past Family History Mother Family Medical History: Diabetes Mellitus Father Family Medical History: Myocardial Infarction (NV) Additional Family Medical History / Comment(s): Father had a NV in his 70s. Brother(s) Family Medical History: Myocardial Infarction (NV) Additional Family Medical History / Comment(s): Brother had a NV in his 50s. Medications and Allergies Home Medications Medication Instructions Recorded Confirmed Type Fluticasone Nasal [place] [Flonase 1 spr EA NOSTRIL DAILY 05/12/16 09/06/21 History Nasal [place]] Isosorbide Mononitrate ER [Imdur] 30 mg PO DAILY 01/16/19 09/06/21 History Pantoprazole [Protonix] 40 mg PO DAILY 01/16/19 09/06/21 History Montelukast [Singulair] 10 mg PO HS 02/12/19 09/06/21 History Loratadine [Claritin] 10 mg PO DAILY 03/28/19 09/06/21 History Metoprolol Tartrate [Lopressor] 50 mg PO BID 03/28/19 09/06/21 History Vitamin B Complex 1 cap PO DAILY 06/24/19 09/06/21 History allopurinoL [Zyloprim] 100 mg PO DAILY 06/24/19 09/06/21 History Ubidecarenone [Co Q-10] 200 mg PO DAILY 08/01/19 09/06/21 History Pravastatin Sodium [Pravachol] 20 mg PO DAILY 11/11/19 09/06/21 History Albuterol Sulfate [Ventolin HFA] 1 - 2 puff INHALATION RT-Q4H PRN 07/25/21 09/06/21 History Fluticasone/Salmeterol 1 puff INHALATION RT-BID 07/25/21 09/06/21 History [Fluticasone-Salmeterol 232-14] Folic Acid 0.4 mg PO DAILY 07/25/21 09/06/21 History dilTIAZem HCL 90 mg PO BID 07/25/21 09/06/21 History hydrALAZINE HCL [Apresoline] 100 mg PO TID 07/25/21 09/06/21 History Nitroglycerin Sl Tabs [Nitrostat] 0.4 mg SL Q5M PRN 07/26/21 09/06/21 History Ipratropium-Albuterol Nebulize 3 ml INHALATION RT-QID 30 Days #90 07/30/21 09/06/21 Rx [Duoneb 0.5 mg-3 mg/3 ml Soln] ml Aspirin 81 mg PO DAILY #30 08/09/21 09/09/21 Rx Sodium Chloride 0.65% Nasal [Deep 2 spray NASAL QID PRN #7 ml 08/09/21 09/06/21 Rx Sea (Saline)] Spironolactone [Aldactone] 12.5 mg PO DAILY #30 tab 08/09/21 09/06/21 Rx Flecainide Acetate 100 mg PO BID 08/18/21 09/06/21 History Furosemide [Lasix] 40 mg PO DAILY@1600 #30 tab 08/19/21 09/06/21 Rx Cholecalciferol (Vitamin D3) 75 mcg PO DAILY 08/30/21 09/06/21 History [Vitamin D3 (3000 Iu)] Furosemide [Lasix] 80 mg PO DAILY 09/06/21 09/06/21 History Insulin Detemir [Levemir Flextouch 48 units SQ HS 09/06/21 09/06/21 History Pen] Insulin Lispro [humaLOG] See Protocol SQ AC-TID 09/06/21 09/06/21 History Iron 27mg 1 tab PO DAILY 09/06/21 09/06/21 History Magnesium Oxide [Mag-Ox] 250 mg PO DAILY 09/06/21 09/06/21 History Zolpidem [Ambien] 5 mg PO HS PRN 09/06/21 09/06/21 History Allergies Allergy/AdvReac Type Severity Reaction Status Date / Time amlodipine Allergy Swelling Verified 09/06/21 14:44 amoxicillin Allergy Anaphylaxis Verified 09/06/21 14:44 cephalexin monohydrate Allergy Rash/Hives Verified 09/06/21 14:44 [From Keflex] clindamycin Allergy Rash/Hives Verified 09/06/21 14:44 Penicillins Allergy Rash/Hives Verified 09/06/21 14:44 Sulfa (Sulfonamide Allergy Anaphylaxis Verified 09/06/21 14:44 Antibiotics) sulfamethoxazole Allergy Anaphylaxis Verified 09/06/21 14:44 [From Bactrim] trimethoprim [From Bactrim] Allergy Anaphylaxis Verified 09/06/21 14:44 carvedilol AdvReac "MAKES ME Verified 09/06/21 14:44 JERILYN" Physical Exam Vitals: Vital Signs Temp Pulse Pulse Resp BP Pulse Ox 09/09/21 12:31 69 18 123/61 94 L 09/09/21 11:51 92 09/09/21 11:40 89 09/09/21 09:31 97.9 F 68 16 141/80 96 09/09/21 08:35 111 H 18 09/09/21 08:21 110 H 18 94 L 09/09/21 03:27 98.1 F 99 18 120/65 95 09/09/21 01:57 73 09/09/21 00:34 97.8 F 73 18 131/73 96 09/08/21 21:16 141 H 131/85 95 09/08/21 20:17 77 09/08/21 20:07 74 09/08/21 20:00 97.6 F 82 16 157/74 94 L 09/08/21 15:30 69 16 122/63 95 Intake and Output 09/08/21 09/09/21 09/09/21 22:59 06:59 14:59 Intake Total 1200 240 Balance 1200 240 Intake: Oral 1200 240 Other: Voiding Method Toilet Toilet Toilet # Voids 1 1 Weight 86.3 kg Alert and Oriented Jaundice icterus Head: AC/NC Neck: Supple Heart: Tachy Abdomen: Distended Lungs: Diminshed Bilateral Lower Lobes Lower extremity edema bilateral Results CBC & Chem 7: 09/09/21 06:38 09/09/21 06:38 Labs: Abnormal Lab Results - Last 24 Hours (Table) 09/08/21 09/08/21 09/09/21 Range/Units 16:58 20:03 06:04 WBC (3.8-10.6) k/uL Neutrophils # (1.3-7.7) k/uL Lymphocytes # (1.0-4.8) k/uL Potassium (3.5-5.1) mmol/L Chloride (98-107) mmol/L Carbon Dioxide (22-30) mmol/L BUN (9-20) mg/dL Creatinine (0.66-1.25) mg/dL Glucose (74-99) mg/dL POC Glucose (mg/dL) 218 H 269 H 43 L (75-99) mg/dL Magnesium (1.6-2.3) mg/dL 09/09/21 09/09/21 09/09/21 Range/Units 06:18 06:38 06:38 WBC 22.1 H (3.8-10.6) k/uL Neutrophils # 20.1 H (1.3-7.7) k/uL Lymphocytes # 0.8 L (1.0-4.8) k/uL Potassium 3.4 L (3.5-5.1) mmol/L Chloride 97 L (98-107) mmol/L Carbon Dioxide 31 H (22-30) mmol/L BUN 72 H (9-20) mg/dL Creatinine 2.35 H (0.66-1.25) mg/dL Glucose 30 L* (74-99) mg/dL POC Glucose (mg/dL) 61 L (75-99) mg/dL Magnesium 2.7 H (1.6-2.3) mg/dL 09/09/21 Range/Units 11:33 WBC (3.8-10.6) k/uL Neutrophils # (1.3-7.7) k/uL Lymphocytes # (1.0-4.8) k/uL Potassium (3.5-5.1) mmol/L Chloride (98-107) mmol/L Carbon Dioxide (22-30) mmol/L BUN (9-20) mg/dL Creatinine (0.66-1.25) mg/dL Glucose (74-99) mg/dL POC Glucose (mg/dL) 106 H (75-99) mg/dL Magnesium (1.6-2.3) mg/dL Microbiology - Last 24 Hours (Table) 09/07/21 10:15 Gram Stain - Preliminary Paracentesis Fluid Body Fluid Culture - Preliminary Assessment and Plan (1) Hyperbilirubinemia Current Visit: Yes Status: Acute Code(s): E80.6 - OTHER DISORDERS OF BILIRUBIN METABOLISM SNOMED Code(s): 20111295 (2) Liver enzyme elevation Current Visit: Yes Status: Acute Code(s): R74.8 - ABNORMAL LEVELS OF OTHER SERUM ENZYMES SNOMED Code(s): 681855743 (3) Alcoholic cirrhosis of liver with ascites Current Visit: Yes Status: Acute Code(s): K70.31 - ALCOHOLIC CIRRHOSIS OF LIVER WITH ASCITES SNOMED Code(s): 467901827 (4) Ascites Current Visit: Yes Status: Acute Code(s): R18.8 - OTHER ASCITES SNOMED Code(s): 777253691 (5) Lung mass Current Visit: No Status: Acute Code(s): R91.8 - OTHER NONSPECIFIC ABNORMAL FINDING OF LUNG FIELD SNOMED Code(s): 754635746 Plan: Assessment and Recommendations: 1. Liver Lesion PET AVID - Underlying ETOH Cirrhosis - Plan for Biopsy of liver with IR, aspirin has been on hold 9 days per RN - Hoping for Monday, jasson given the rapidly increasing liver function - Check Coags to ensure VItamin K is not needed prior 2. Lung Mass: - Will biopsy liver first as likely metastatic location 3. Hyperbilirubinemia: 4. Abdominal Ascites: - Status Post Paracentesis: Cytology Negative 5. BLE Edema: - Likely secondary to #4, but will check Doppler in hypercoagulable patient Thank you for allowing us to participate in the care of this patient, further recs to follow once a tissue biopsy is resulted
[2021-09-09 20:11] LABS: Glucose,Whole Blood 307 mg/dL (75-99)
[2021-09-09] MEDS: MONTELUKAST 10 MG TAB PO SCH (20:54)
[2021-09-09] MEDS: ZOLPIDEM 5 MG TAB PO PRN (20:55)
[2021-09-09] MEDS: INSULIN DETEMIR (LEVEMIR) 100 UNIT/ML SYR SQ SCH ×2 (20:55→21:00)
--- NOTE | 2021-09-09 23:10 | US ---
EXAMINATION TYPE: US venous doppler duplex LE BI DATE OF EXAM: 09/09/2021 8:40 PM COMPARISON: US CLINICAL HISTORY: BLE edema L>R. Bilateral leg edema. No hx of DVT. Patient does not take blood thinn ers. SIDE PERFORMED: Bilateral TECHNIQUE: The lower extremity deep venous system is examined utilizing real time linear array sonog alanna with graded compression, doppler sonography and color-flow sonography. VESSELS IMAGED: Common Femoral Vein Deep Femoral Vein Greater Saphenous Vein * Femoral Vein Popliteal Vein Small Saphenous Vein * Proximal Calf Veins (* superficial vessels) Right Leg: No evidence of DVT in veins imaged at this time. Anechoic fluid-appearing area seen mid c dwain, as seen on prior exam, unable to image entire length. Measures 1.1 cm AP and 1.2 cm in width. Left Leg: Possible thready flow in femoral vein prox/deep femoral vein images versus artifact due to plaque from in artery. Femoral vein prox appears to compress incompletely. Possible non-occlusive ch ronic internal echoes along vessel wall at this level. IMPRESSION: 1. Right lower extremity ultrasound appears negative for deep venous thrombosis. 2. Questionable incomplete thrombus within the left proximal femoral vein. No occlusive noncompressib le thrombus evident 3. Right popliteal/calf cyst.
--- NOTE | 2021-09-09 23:45 | XR ---
EXAMINATION TYPE: XR chest 2V DATE OF EXAM: 09/09/2021 COMPARISON: 09/06/2021 INDICATION: Increased oxygen need, short of breath TECHNIQUE: Frontal and lateral views of the chest are obtained. FINDINGS: The heart size is normal. The pulmonary vasculature is normal. Patchy infiltrates are present greater on the left. Distribution appears similar to comparison. Pacem madhuri overlies left chest. There is elevation of the right diaphragm.. IMPRESSION: 1. Patchy nonspecific infiltrates stable. Correlate for atypical pneumonia.
[2021-09-10] MEDS: PANTOPRAZOLE 40 MG TABLET PO SCH (06:04)
[2021-09-10 06:14] LABS: Glucose,Whole Blood 126 mg/dL (75-99)
[2021-09-10] MEDS: INSULIN ASPART (NovoLOG) 100 UNIT/ML VIAL SQ SCH ×4 (06:28→21:07)
[2021-09-10 07:59] LABS: Albumin 3.1 g/dL (3.5-5.0); Calcium 8.5 mg/dL (8.4-10.2); Magnesium 2.7 mg/dL (1.6-2.3); Potassium 4.2 mmol/L (3.5-5.1); Total Bilirubin 4.9 mg/dL (0.2-1.3); Total Protein 5.9 g/dL (6.3-8.2)
[2021-09-10 08:20] LABS: Basophils % (A) 0 %; Eosinophils % (A) 0 %; Lymphocytes # (A) 0.5 k/uL (1.0-4.8); Lymphocytes % (A) 3 %; MCH 31.8 pg (25.0-35.0); MCHC 32.6 g/dL (31.0-37.0); MCV 97.7 fL (80.0-100.0); Mean Platelet Volume 12.1; Monocytes # (A) 0.9 k/uL (0-1.0); Monocytes % (A) 5 %; Neutrophils # (A) 17.3 k/uL (1.3-7.7); Neutrophils % (A) 92 %; Platelet Count 126 k/uL (150-450); RBC 4.41 m/uL (4.30-5.90); RDW 15.7 % (11.5-15.5); WBC 18.8 k/uL (3.8-10.6)
[2021-09-10] MEDS: SYMBICORT 160-4.5 MCG INHALER INHALATION SCH ×2 (08:38→19:30)
[2021-09-10] MEDS: IPRATROPIUM-ALBUTEROL 3 ML NEB INHALATION SCH ×4 (08:38→19:30)
[2021-09-10] MEDS: hydrALAZINE HCL 50 MG TAB PO SCH ×3 (08:42→20:51)
[2021-09-10] MEDS: ISOSORBIDE MONONITRATE ER 30 MG TAB.ER.24H PO SCH (08:42)
[2021-09-10] MEDS: METOPROLOL TARTRATE 50 MG TAB PO SCH ×2 (08:42→20:50)
[2021-09-10] MEDS: DILTIAZEM ORAL 30 MG TAB PO SCH ×2 (08:43→20:50)
[2021-09-10] MEDS: FUROSEMIDE 80 MG TAB PO SCH ×2 (08:43→17:17)
[2021-09-10] MEDS: allopurinoL 100 MG TAB PO SCH (08:43)
[2021-09-10] MEDS: SPIRONOLACTONE 25 MG TAB PO SCH (08:43)
[2021-09-10] MEDS: FLECAINIDE 50 MG TAB PO SCH ×2 (08:43→20:50)
[2021-09-10 10:06] LABS: Large Platelets Present
[2021-09-10] MEDS ORDERED: HYDROmorphone 0.5 MG/0.5 ML SYRINGE IVP STA (10:12)
[2021-09-10 11:32] LABS: Glucose,Whole Blood 222 mg/dL (75-99)
--- NOTE | 2021-09-10 12:05 | CT ---
EXAMINATION TYPE: CT biopsy liver DATE OF EXAM: 09/10/2021 COMPARISON: NONE HISTORY: Liver mass CT DLP: 1172mGycm The procedure was explained to the patient. The risks, complications, benefits, and alternatives wer e discussed and any questions were answered. Informed consent was obtained. Patient was placed supi ne on the CT table and prepped and draped in the usual sterile fashion. All elements of maximal barrier and sterile technique utilized. Utilizing CT guidance, an 18 gauge core biopsy needle access into the left lobe of the liver was ach ieved and a two 18 gauge core sample 4 obtained. The patient was stable throughout the procedure and remained stable upon discharge. IMPRESSION: 1. Successful 18 gauge core biopsy of the liver.
[2021-09-10 12:30] LABS: Hepatitis A Antibody IgM Nonreactive (Nonreactive); Hepatitis B Core IgM Nonreactive (Nonreactive); Hepatitis B Surface Antigen Nonreactive (Nonreactive); Hepatitis C IgG Antibody Nonreactive (Nonreactive)
--- NOTE | 2021-09-10 14:15 | P.PN ---
Progress Note - Text Progress Note Date: 09/10/21 Patient off the floor for liver biopsy during cardiology rounds. Patient will be re-evaluated tomorrow.
--- NOTE | 2021-09-10 15:46 | P.PN ---
Subjective Progress Note Date: 09/10/21 Principal diagnosis: Ascites This is a 66-year-old male who presented to the emergency department 3 days ago with complaints of abdominal distention and shortness of breath. Zabala also states he has had abdominal distention that he has noticed a little over a month ago. He has a significant history of alcohol abuse for at least 30 years. He states he drank quite heavily but would not elaborate as to what and how much. States he quit 10-12 years ago. States he has been diagnosed in the past with cirrhosis of the liver he thinks maybe 10 years ago and also had to undergo a paracentesis at that time. Apparently the patient recently has undergone palliative care for history of lung cancer and concern for liver cancer as well. Patient states he's been following up with pulmonology for pulmonary nodules. He had a PET scan 08/20/2021 with findings of high stage neoplasm with cirrhotic liver are multiple hypermetabolic masses could reflect metastatic disease. Abnormal left lung mass with thoracic adenopathy as detailed above. The patient was scheduled for outpatient liver biopsy however did not have done as he came to the emergency department. While here he underwent a CT of the abdomen and pelvis with findings of ascites, small bilateral pleural effusions, multiple nodules within the visualized lung bases and clinical consideration for colitis in the right upper quadrant. 2 days ago he underwent a paracentesis with removal of 2.2 L of fluid. Cytology is back which is stating negative for malignant cells. He does have a history of EGD and colonoscopy in number of 2018 he had EGD with findings of antral gastritis but no evidence of esophagitis or peptic ulcer disease. Colonoscopy revealed polyps in the transverse colon as well as descending colon status post polypectomy and biopsies came back as tubular adenoma. A recommendation for repeat colonoscopy in 3 years. patient is seen today sitting up at the bedside. No acute changes through the night. He denies any nausea or vomiting. Abdominal distention improved since paracentesis. Denies any abdominal pain. He has going down now for a liver biopsy CT. Acute hepatitis panel.repeat labs total bilirubin 4.9 AST 197 ALT 242 alkaline phosphatase 316. Fluid studies consistent with portal hypertension, however cannot calculate SAAG score related to lab error. Objective - Vital Signs Vital signs: Vital Signs Temp 98.1 F 09/10/21 08:28 Pulse 63 09/10/21 08:38 Resp 16 09/10/21 08:28 BP 136/73 09/10/21 08:28 Pulse Ox 94 L 09/10/21 08:38 Intake & Output 09/09/21 09/10/21 09/10/21 18:59 06:59 18:59 Intake Total 420 485 240 Balance 420 485 240 Weight 87 kg Intake: Oral 420 485 240 Other: Voiding Method Toilet Toilet # Voids 1 1 - Exam General appearance: The patient is alert, oriented, appears in no acute distress. HET: Head is normocephalic and atraumatic. Conjunctiva pink. Sclera anicteric. Neck: Supple without lymphadenopathy. Abdomen: Soft, nontender, nondistended with bowel sounds. No guarding or rig idity. Extremities: Normal skin color and turgor. No pedal edema Skin: No rashes, jaundice Neurological: No focal deficits. Alert and oriented -3. - Labs CBC & Chem 7: 09/10/21 06:46 09/10/21 06:46 Labs: Abnormal Lab Results - Last 24 Hours (Table) 09/09/21 09/09/21 09/09/21 Range/Units 06:38 11:33 16:00 WBC (3.8-10.6) k/uL RDW (11.5-15.5) % Neutrophils # 20.1 H (1.3-7.7) k/uL Lymphocytes # 0.8 L (1.0-4.8) k/uL APTT (22.0-30.0) sec Sodium (137-145) mmol/L Chloride (98-107) mmol/L BUN (9-20) mg/dL Creatinine (0.66-1.25) mg/dL Glucose (74-99) mg/dL POC Glucose (mg/dL) 106 H (75-99) mg/dL Magnesium (1.6-2.3) mg/dL Total Bilirubin (0.2-1.3) mg/dL AST (17-59) U/L ALT (4-49) U/L Alkaline Phosphatase (38-126) U/L Lactate Dehydrogenase 2053 H (313-618) U/L Total Protein (6.3-8.2) g/dL Albumin (3.5-5.0) g/dL 09/09/21 09/09/21 09/09/21 Range/Units 16:00 16:31 20:09 WBC (3.8-10.6) k/uL RDW (11.5-15.5) % Neutrophils # (1.3-7.7) k/uL Lymphocytes # (1.0-4.8) k/uL APTT 20.2 L (22.0-30.0) sec Sodium (137-145) mmol/L Chloride (98-107) mmol/L BUN (9-20) mg/dL Creatinine (0.66-1.25) mg/dL Glucose (74-99) mg/dL POC Glucose (mg/dL) 232 H 307 H (75-99) mg/dL Magnesium (1.6-2.3) mg/dL Total Bilirubin (0.2-1.3) mg/dL AST (17-59) U/L ALT (4-49) U/L Alkaline Phosphatase (38-126) U/L Lactate Dehydrogenase (313-618) U/L Total Protein (6.3-8.2) g/dL Albumin (3.5-5.0) g/dL 09/10/21 09/10/21 09/10/21 Range/Units 06:12 06:46 06:46 WBC 18.8 H (3.8-10.6) k/uL RDW 15.7 H (11.5-15.5) % Neutrophils # (1.3-7.7) k/uL Lymphocytes # (1.0-4.8) k/uL APTT (22.0-30.0) sec Sodium 135 L (137-145) mmol/L Chloride 97 L (98-107) mmol/L BUN 82 H (9-20) mg/dL Creatinine 2.77 H (0.66-1.25) mg/dL Glucose 127 H (74-99) mg/dL POC Glucose (mg/dL) 126 H (75-99) mg/dL Magnesium 2.7 H (1.6-2.3) mg/dL Total Bilirubin 4.9 H (0.2-1.3) mg/dL AST 197 H (17-59) U/L ALT 242 H (4-49) U/L Alkaline Phosphatase 316 H (38-126) U/L Lactate Dehydrogenase (313-618) U/L Total Protein 5.9 L (6.3-8.2) g/dL Albumin 3.1 L (3.5-5.0) g/dL Assessment and Plan (1) Alcoholic cirrhosis of liver with ascites Narrative/Plan: Extensive 6-year-old male with significant history of alcohol abuse for greater than 30 years duration who states he quit drinking 10-12 years ago. Patient states he was first diagnosed with alcoholic cirrhosis of the liver but 10-12 years ago at that time he does recall having to undergo a paracentesis. Has not had to undergo paracentesis since. He's been recently in and out of the hospital and concern for lung cancer with multiple nodules on the lungs. Reinaldo arently there is been some concern as well for possible metastatic liver cancer. Patient states he has had a recent abdominal distention that started approximately 1 month ago. His posterior have a biopsy of the liver this past Monday however he ended up back in the hospital with abdominal distention and shortness of breath. Patient has not seen oncology. Not been following with any food preparation supervisor her liver specialist. He has seen Dr. Atkins in the past for upper and lower endoscopy in July 2019. Cardiology and pulmonology is also following patient closely. He is currently on Lasix 80 mg twice a day as well as Aldactone 12.5 mg daily. Include dealing with decompensated cirrhosis of the liver related to alcohol abuse. Continue diuretics, will order hepatitis panel. AFP was negative. Paracentesis performed, fluid studies are consistent with portal hypertension although SAAG score cannot be calculated due to lab air. Ascitic fluid Cytology reports negative for malignant cells. Current Visit: Yes Status: Acute Code(s): K70.31 - ALCOHOLIC CIRRHOSIS OF LIVER WITH ASCITES SNOMED Code(s): 777518189 (2) History of alcohol abuse Current Visit: Yes Status: Acute Code(s): F10.11 - ALCOHOL ABUSE, IN REMISSION SNOMED Code(s): 531973380 Plan: 1. Continue symptomatic and supportive care 2. Continue diuretics as ordered 3. Consult to oncology 4. Agree with liver biopsy, await results 5. Recommend low sodium diet 6. Patient to follow up with gastroenterology if liver biopsy negative. Thank you for allowing us to participate in the care of the patient, the GI service will sign off, gastroenterology will not be available at the hospital. If further evaluation by gastroenterology is required the patient will need transfer as per the primary team's discretion. Dr. Alem Atkins I agree with the dictator's note, documented as a scribe by Neda Patel.
[2021-09-10 17:10] LABS: Glucose,Whole Blood 255 mg/dL (75-99)
--- NOTE | 2021-09-10 18:27 | P.PN ---
Subjective Progress Note Date: 09/10/21 Principal diagnosis: Abdominal distention 66-year-old male with a known history of COPD on home oxygen, recent lung mass on CT chest on follow up with pulmonary, persistent atrial fibrillation on anticoagulation with xarelto, sick sinus syndrome with history of permanent pacemaker placement, coronary artery disease history of stent placement to circumflex, diabetes type 2 insulin-dependent, hypertension, hyperlipidemia, chronic CHF with diastolic dysfunction and previous history of smoking and alcohol use presents to ER with complaints of Abdominal distention. Patient do es have a history of liver cirrhosis due to previous history of alcohol abuse. Patient had previous admissions with acute on chronic CHF with diastolic dysfunction and also history of lung nodules. Patient is supposed to get biopsy of the lung nodule. Patient had previous history of right-sided pleural effusion and thoracentesis. Patient was recently discharged in the hospital on 08/19/2021. Patient had PET scan on 08/20/2021 showed high stage neoplasm with cirrhotic liver-multiple hypermetabolic dialysis could reflect metastatic disease. Abnormal left lung mass with thoracic adenopathy. Chest x-ray showed patchy bilateral infiltrate correlate for multifocal pneumonia. Neoplasm not excluded. CT of the abdomen pelvis showed ascites, small bilateral pleural effusions, multiple nodules within the visualized lung bases. Clinical consideration for colitis in the right upper quadrant is recommended. Laboratory data showed WBC 13.6 hemoglobin 12.6 and platelets 152 Sodium 130 potassium 3.9 chloride 93 BUN 64 and creatinine 1.9 Blood sugar is 314 Calcium 8.0 Objective - Vital Signs Vital signs: Vital Signs Temp 97.5 F L 09/10/21 10:54 Pulse 57 L 09/10/21 12:34 Resp 15 09/10/21 12:34 BP 129/65 09/10/21 12:34 Pulse Ox 96 09/10/21 12:34 Intake & Output 09/09/21 09/10/21 09/10/21 18:59 06:59 18:59 Intake Total 420 485 240 Balance 420 485 240 Weight 87 kg Intake: Oral 420 485 240 Other: Voiding Method Toilet Toilet Toilet # Voids 1 1 - Exam PHYSICAL EXAMINATION: GENERAL: The patient is alert and oriented x3, not in any acute distress. Well developed, well nourished. HEENT: Pupils are round and equally reacting to light. EOMI. No scleral icterus. No conjunctival pallor. Normocephalic, atraumatic. No pharyngeal erythema. No thyromegaly. CARDIOVASCULAR: S1 and S2 present. No murmurs, rubs, or gallops. PULMONARY: Chest is clear to auscultation, no wheezing or crackles. ABDOMEN: Soft, nontender, nondistended, normoactive bowel sounds. No palpable organomegaly. MUSCULOSKELETAL: No joint swelling or deformity. EXTREMITIES: No cyanosis, clubbing, or pedal edema. NEUROLOGICAL: Gross neurological examination did not reveal any focal deficits. SKIN: No rashes. - Labs CBC & Chem 7: 09/10/21 06:46 09/10/21 06:46 Labs: Abnormal Lab Results - Last 24 Hours (Table) 09/09/21 09/09/21 09/09/21 Range/Units 16:00 16:00 16:31 WBC (3.8-10.6) k/uL RDW (11.5-15.5) % Plt Count (150-450) k/uL Neutrophils # (1.3-7.7) k/uL Lymphocytes # (1.0-4.8) k/uL APTT 20.2 L (22.0-30.0) sec Sodium (137-145) mmol/L Chloride (98-107) mmol/L BUN (9-20) mg/dL Creatinine (0.66-1.25) mg/dL Glucose (74-99) mg/dL POC Glucose (mg/dL) 232 H (75-99) mg/dL Magnesium (1.6-2.3) mg/dL Total Bilirubin (0.2-1.3) mg/dL AST (17-59) U/L ALT (4-49) U/L Alkaline Phosphatase (38-126) U/L Lactate Dehydrogenase 2053 H (313-618) U/L Total Protein (6.3-8.2) g/dL Albumin (3.5-5.0) g/dL 09/09/21 09/10/21 09/10/21 Range/Units 20:09 06:12 06:46 WBC 18.8 H (3.8-10.6) k/uL RDW 15.7 H (11.5-15.5) % Plt Count 126 L (150-450) k/uL Neutrophils # 17.3 H (1.3-7.7) k/uL Lymphocytes # 0.5 L (1.0-4.8) k/uL APTT (22.0-30.0) sec Sodium (137-145) mmol/L Chloride (98-107) mmol/L BUN (9-20) mg/dL Creatinine (0.66-1.25) mg/dL Glucose (74-99) mg/dL POC Glucose (mg/dL) 307 H 126 H (75-99) mg/dL Magnesium (1.6-2.3) mg/dL Total Bilirubin (0.2-1.3) mg/dL AST (17-59) U/L ALT (4-49) U/L Alkaline Phosphatase (38-126) U/L Lactate Dehydrogenase (313-618) U/L Total Protein (6.3-8.2) g/dL Albumin (3.5-5.0) g/dL 09/10/21 09/10/21 Range/Units 06:46 11:31 WBC (3.8-10.6) k/uL RDW (11.5-15.5) % Plt Count (150-450) k/uL Neutrophils # (1.3-7.7) k/uL Lymphocytes # (1.0-4.8) k/uL APTT (22.0-30.0) sec Sodium 135 L (137-145) mmol/L Chloride 97 L (98-107) mmol/L BUN 82 H (9-20) mg/dL Creatinine 2.77 H (0.66-1.25) mg/dL Glucose 127 H (74-99) mg/dL POC Glucose (mg/dL) 222 H (75-99) mg/dL Magnesium 2.7 H (1.6-2.3) mg/dL Total Bilirubin 4.9 H (0.2-1.3) mg/dL AST 197 H (17-59) U/L ALT 242 H (4-49) U/L Alkaline Phosphatase 316 H (38-126) U/L Lactate Dehydrogenase (313-618) U/L Total Protein 5.9 L (6.3-8.2) g/dL Albumin 3.1 L (3.5-5.0) g/dL Microbiology - Last 24 Hours (Table) 09/07/21 10:15 Gram Stain - Preliminary Paracentesis Fluid Body Fluid Culture - Preliminary Assessment and Plan Assessment: Abdominal distention due to ascites status post paracentesis with 2.2 L fluid removal Alcoholic liver cirrhosis suspicious multiple liver metastatic lesions as per Recent history of PET scan on 08/20/21 . chronic CHF with diastolic dysfunction Recently diagnosed lung nodules with abdominal CT chest.. Supposed to follow with pulmonary clinic. s/p outpatient PET scan on 08/20/2021 Hyperglycemia with uncontrolled diabetes type 2 Elevated troponin level unlikely ACS. Hyponatremia likely hypervolemic. Possible SIADH cannot be excluded. Bilateral small pleural effusions with recent history of right thoracentesis Chronic postnasal drip Persistent atrial fibrillation on anticoagulation with xarelto. Was on hold for persistent nosebleeds. Cardiology recommends to start back on xarelto. Sick sinus syndrome with history of permanent pacemaker placement coronary artery disease history of stent placement to circumflex Hypertension Hyperlipidemia Chronic hypoxic respiratory failure secondary to COPD Previous history of smoking History of liver cirrhosis DVT prophylaxis Full code Plan: Patient is status post paracentesis with 2.2 L fluid removal. Cell count and differential showed no evidence of SBP. Follow-up fluid culture and cytology report. Replace electrolytes and patient will be started back on Lasix and spironolactone. Monitor renal function. Continue with home medications and follow-up closely. Pulmonary and cardiology was consulted. Prognosis guarded at this time.
--- NOTE | 2021-09-10 20:35 | P.PN ---
Subjective Progress Note Date: 09/10/21 Objective - Vital Signs Vital signs: Vital Signs Temp 98.0 F 09/10/21 17:16 Pulse 67 09/10/21 19:45 Resp 16 09/10/21 17:16 BP 121/71 09/10/21 17:16 Pulse Ox 99 09/10/21 17:16 Intake & Output 09/10/21 09/10/21 09/11/21 06:59 18:59 06:59 Intake Total 485 480 Balance 485 480 Weight 87 kg Intake: Oral 485 480 Other: Voiding Method Toilet Toilet # Voids 1 - Constitutional General appearance: Present: cooperative, no acute distress - EENT Eyes: Present: EOMI ENT: Present: NA/AT, normal oropharynx - Neck Neck: Present: normal ROM - Respiratory Respiratory: bilateral: diminished (bilateral diminished lobes) - Cardiovascular Rhythm: regularly irregular - Gastrointestinal General gastrointestinal: Present: distended - Integumentary Integumentary: Present: pale - Neurologic Neurologic: Present: CNII-XII intact - Musculoskeletal Musculoskeletal: Present: generalized weakness - Psychiatric Psychiatric: Present: A&O x's 3 - Labs CBC & Chem 7: 09/10/21 06:46 09/10/21 06:46 Labs: Abnormal Lab Results - Last 24 Hours (Table) 09/10/21 09/10/21 09/10/21 Range/Units 06:12 06:46 06:46 WBC 18.8 H (3.8-10.6) k/uL RDW 15.7 H (11.5-15.5) % Plt Count 126 L (150-450) k/uL Neutrophils # 17.3 H (1.3-7.7) k/uL Lymphocytes # 0.5 L (1.0-4.8) k/uL Sodium 135 L (137-145) mmol/L Chloride 97 L (98-107) mmol/L BUN 82 H (9-20) mg/dL Creatinine 2.77 H (0.66-1.25) mg/dL Glucose 127 H (74-99) mg/dL POC Glucose (mg/dL) 126 H (75-99) mg/dL Magnesium 2.7 H (1.6-2.3) mg/dL Total Bilirubin 4.9 H (0.2-1.3) mg/dL AST 197 H (17-59) U/L ALT 242 H (4-49) U/L Alkaline Phosphatase 316 H (38-126) U/L Total Protein 5.9 L (6.3-8.2) g/dL Albumin 3.1 L (3.5-5.0) g/dL 09/10/21 09/10/21 Range/Units 11:31 17:08 WBC (3.8-10.6) k/uL RDW (11.5-15.5) % Plt Count (150-450) k/uL Neutrophils # (1.3-7.7) k/uL Lymphocytes # (1.0-4.8) k/uL Sodium (137-145) mmol/L Chloride (98-107) mmol/L BUN (9-20) mg/dL Creatinine (0.66-1.25) mg/dL Glucose (74-99) mg/dL POC Glucose (mg/dL) 222 H 255 H (75-99) mg/dL Magnesium (1.6-2.3) mg/dL Total Bilirubin (0.2-1.3) mg/dL AST (17-59) U/L ALT (4-49) U/L Alkaline Phosphatase (38-126) U/L Total Protein (6.3-8.2) g/dL Albumin (3.5-5.0) g/dL Microbiology - Last 24 Hours (Table) 09/07/21 10:15 Anaerobic Culture - Preliminary Paracentesis Fluid 09/07/21 10:15 Gram Stain - Preliminary Paracentesis Fluid Body Fluid Culture - Preliminary Assessment and Plan (1) Hyperbilirubinemia Current Visit: Yes Status: Acute Code(s): E80.6 - OTHER DISORDERS OF BILIRUBIN METABOLISM SNOMED Code(s): 62872376 (2) Liver enzyme elevation Current Visit: Yes Status: Acute Code(s): R74.8 - ABNORMAL LEVELS OF OTHER SERUM ENZYMES SNOMED Code(s): 732254192 (3) Alcoholic cirrhosis of liver with ascites Current Visit: Yes Status: Acute Code(s): K70.31 - ALCOHOLIC CIRRHOSIS OF LIVER WITH ASCITES SNOMED Code(s): 148982966 (4) Ascites Current Visit: Yes Status: Acute Code(s): R18.8 - OTHER ASCITES SNOMED Code(s): 147859881 (5) Lung mass Current Visit: No Status: Acute Code(s): R91.8 - OTHER NONSPECIFIC ABNORMAL FINDING OF LUNG FIELD SNOMED Code(s): 021215621 Plan: Assessment and Recommendations: 1. Liver Lesion PET AVID - Underlying ETOH Cirrhosis - Status post Liver biopsy today - Will further stage with MRI of Brain today - Check AFP 2. Lung Mass: - Will biopsy liver first as likely metastatic location 3. Hyperbilirubinemia: 4. Abdominal Ascites: - Status Post Paracentesis: Cytology Negative 5. BLE Edema: - Likely secondary to #4, but will check Doppler in hypercoagulable patient 6. Worsening Renal Function physician Attest: I have completed the full history and physical and agree with above dictation
[2021-09-10] MEDS: ZOLPIDEM 5 MG TAB PO PRN (20:50)
[2021-09-10] MEDS: MONTELUKAST 10 MG TAB PO SCH (20:50)
[2021-09-10 20:57] LABS: Glucose,Whole Blood 332 mg/dL (75-99)
[2021-09-10] MEDS: INSULIN DETEMIR (LEVEMIR) 100 UNIT/ML SYR SQ SCH (21:07)
[2021-09-11] MEDS: PANTOPRAZOLE 40 MG TABLET PO SCH (06:13)
[2021-09-11 06:29] LABS: Glucose,Whole Blood 203 mg/dL (75-99)
[2021-09-11] MEDS: INSULIN ASPART (NovoLOG) 100 UNIT/ML VIAL SQ SCH ×4 (06:54→21:08)
[2021-09-11] MEDS: SYMBICORT 160-4.5 MCG INHALER INHALATION SCH ×2 (08:00→19:50)
[2021-09-11] MEDS: IPRATROPIUM-ALBUTEROL 3 ML NEB INHALATION SCH ×5 (08:00→19:50)
[2021-09-11 09:07] LABS: Albumin 3.3 g/dL (3.5-5.0)
[2021-09-11 09:12] LABS: Basophils % (A) 0 %; Eosinophils % (A) 0 %; HCT 45.2 % (39.0-53.0); HGB 14.2 gm/dL (13.0-17.5); Lymphocytes # (A) 0.4 k/uL (1.0-4.8); Lymphocytes % (A) 2 %; MCH 31.2 pg (25.0-35.0); MCHC 31.5 g/dL (31.0-37.0); MCV 98.9 fL (80.0-100.0); Macrocytosis Slight; Mean Platelet Volume 11.8; Monocytes # (A) 0.9 k/uL (0-1.0); Monocytes % (A) 4 %; Neutrophils # (A) 20.6 k/uL (1.3-7.7); Neutrophils % (A) 94 %; Platelet Count 106 k/uL (150-450); RBC 4.57 m/uL (4.30-5.90); RDW 15.2 % (11.5-15.5)
[2021-09-11 09:13] LABS: Calcium 8.6 mg/dL (8.4-10.2); Potassium 4.1 mmol/L (3.5-5.1); Total Bilirubin 5.9 mg/dL (0.2-1.3); Total Protein 5.9 g/dL (6.3-8.2)
[2021-09-11] MEDS: DILTIAZEM ORAL 30 MG TAB PO SCH ×2 (09:42→20:27)
[2021-09-11] MEDS: hydrALAZINE HCL 50 MG TAB PO SCH ×3 (09:42→20:27)
[2021-09-11] MEDS: SPIRONOLACTONE 25 MG TAB PO SCH (09:42)
[2021-09-11] MEDS: FUROSEMIDE 80 MG TAB PO SCH (09:42)
[2021-09-11] MEDS: allopurinoL 100 MG TAB PO SCH (09:42)
[2021-09-11] MEDS: METOPROLOL TARTRATE 50 MG TAB PO SCH ×2 (09:43→20:27)
[2021-09-11] MEDS: FLECAINIDE 50 MG TAB PO SCH ×2 (09:43→20:27)
[2021-09-11] MEDS: ISOSORBIDE MONONITRATE ER 30 MG TAB.ER.24H PO SCH (09:43)
[2021-09-11 09:56] LABS: Large Platelets Present
--- NOTE | 2021-09-11 10:15 | P.PN ---
Subjective Progress Note Date: 09/11/21 HISTORY OF PRESENT ILLNESS: This is a 75 year old with a past medical history significant for coronary artery disease status post PCI to the diagonal branch and circumflex, paroxysmal atrial fibrillation not on anticoagulation secondary to nosebleeds, sick sinus syndrome status post pacemaker, diabetes, chronic kidney disease, hypertension, diastolic heart failure, COPD, and former nicotine dependence. Patient follows in the office with Dr. Morgan. We have been asked to see the patient in consultation for CHF. Patient examined at the bedside. Patient states he was supposed to have a liver biopsy performed yesterday but he was experiencing increased abdominal distention so he came to the ER for further evaluation. Patient underwent paracentesis yesterday by interventional radiology with removal of 2.2 L of serous fluid. Patient currently denies chest pain or pressure. EKG reveals atrial flutter with incomplete left bundle branch block Chest xray patchy bilateral infiltrates correlate for multifocal pneumonia. Neoplasm not excluded. Laboratory data: WBC 17.5. Hemoglobin 12.7. Platelet count 129. Sodium 136. Potassium 3.9. BUN 72. Creatinine 2.24. Bilirubin 4.4. AST 123. ALT 185. Current home cardiac medications include hydralazine 100 mg 3 times a day, C ardizem 90 mg twice a day, Aldactone 12.5 mg daily, Pravachol 20 mg daily, metoprolol tartrate 50 g twice a day, Imdur 30 mg daily, Lasix 80 mg the morning and 40 mg in the afternoon, flecainide 100 mg twice a day, and aspirin 81 mg daily Most recent echocardiogram obtained in June 2021 reveals ejection fraction 55- 60%, mild aortic stenosis, mild mitral regurgitation, mild tricuspid regurgitation 09/09/2021 Patient examined at the bedside. Patient denies chest pain or pressure. Denies shortness of breath. Cytology of ascitic fluid negative for malignancy. Patient was in and out of atrial fibrillation overnight. He is currently in sinus mechanism. 09/11/2021 Patient examined this morning. He is sitting up in the chair. He underwent liver biopsy yesterday. He denies chest pain or pressure. He denies shortness of breath. Telemetry reveals sinus mechanism with a heart rate in the 60s. Blood pressure 132/70. PHYSICAL EXAM: VITAL SIGNS: Reviewed. GENERAL: Well-developed in no acute distress. HEENT: Head is normocephalic. Pupils are equal, round. Sclerae anicteric. Mucous membranes of the mouth are moist. Neck supple. No JVD or thyromegaly LUNGS: Respirations even and unlabored. Lungs diminished to auscultation bilaterally. HEART: Regular rate and rhythm. S1 and S2 heard. ABDOMEN: Soft. Distended. Nontender. EXTREMITIES: Normal range of motion. No clubbing or cyanosis. Peripheral pulses intact. Trace bilateral lower extremity edema NEUROLOGIC: Awake and alert. Oriented x 3. ASSESSMENT: Ascites, status post paracentesis Lung and liver lesions, r/o malignancy Coronary artery disease with previous PCI Chronic kidney disease Chronic diastolic heart failure Paroxysmal atrial fibrillation/atypical flutter, not on anticoagulation COPD Hypertension Diabetes PLAN: Continue current home cardiac medications Await results of liver biopsy Patient is currently stable from a cardiac perspective Further recommendations pending patient's course Nurse practitioner note has been reviewed by physician. Signing provider agrees with the documented findings, assessment, and plan of care. Objective - Vital Signs Vital signs: Vital Signs Temp 98.0 F 09/11/21 05:00 Pulse 64 09/11/21 08:15 Resp 18 09/11/21 05:00 BP 132/70 09/11/21 05:00 Pulse Ox 98 09/11/21 05:00 Intake & Output 09/10/21 09/11/21 09/11/21 18:59 06:59 18:59 Intake Total 480 720 240 Balance 480 720 240 Weight 86.9 kg Intake: Oral 480 720 240 Other: Voiding Method Toilet Toilet # Voids 1 - Labs CBC & Chem 7: 09/11/21 08:27 09/11/21 08:27 Labs: Abnormal Lab Results - Last 24 Hours (Table) 09/10/21 09/10/21 09/10/21 Range/Units 11:31 17:08 20:55 WBC (3.8-10.6) k/uL Plt Count (150-450) k/uL Neutrophils # (1.3-7.7) k/uL Lymphocytes # (1.0-4.8) k/uL Sodium (137-145) mmol/L Chloride (98-107) mmol/L BUN (9-20) mg/dL Creatinine (0.66-1.25) mg/dL Glucose (74-99) mg/dL POC Glucose (mg/dL) 222 H 255 H 332 H (75-99) mg/dL Total Bilirubin (0.2-1.3) mg/dL AST (17-59) U/L ALT (4-49) U/L Alkaline Phosphatase (38-126) U/L Total Protein (6.3-8.2) g/dL Albumin (3.5-5.0) g/dL 09/11/21 09/11/21 09/11/21 Range/Units 06:28 08:27 08:27 WBC 22.0 H (3.8-10.6) k/uL Plt Count 106 L (150-450) k/uL Neutrophils # 20.6 H (1.3-7.7) k/uL Lymphocytes # 0.4 L (1.0-4.8) k/uL Sodium 134 L (137-145) mmol/L Chloride 96 L (98-107) mmol/L BUN 97 H (9-20) mg/dL Creatinine 3.08 H (0.66-1.25) mg/dL Glucose 220 H (74-99) mg/dL POC Glucose (mg/dL) 203 H (75-99) mg/dL Total Bilirubin 5.9 H (0.2-1.3) mg/dL AST 393 H (17-59) U/L ALT 426 H (4-49) U/L Alkaline Phosphatase 368 H (38-126) U/L Total Protein 5.9 L (6.3-8.2) g/dL Albumin 3.3 L (3.5-5.0) g/dL Microbiology - Last 24 Hours (Table) 09/07/21 10:15 Anaerobic Culture - Preliminary Paracentesis Fluid 09/07/21 10:15 Gram Stain - Preliminary Paracentesis Fluid Body Fluid Culture - Preliminary
[2021-09-11] MEDS ORDERED: LORazepam 2 MG/ML INJ IV STA (10:19)
[2021-09-11 12:07] LABS: Glucose,Whole Blood 199 mg/dL (75-99)
--- NOTE | 2021-09-11 12:42 | PN ---
PROGRESS NOTE Patient is seen for followup for chronic kidney disease and an element of acute kidney injury as well. He has had cardiorenal syndrome and hypervolemia and has been diuresed. Currently Lasix is at 80 mg p.o. b.i.d. Overall patient denies any significant shortness of breath or chest pains. His serum creatinine has increased to 3.0 from 2.3 on 09/09/2021. Patient states that he has been voiding. Blood pressure systolic has been 130 to 150 mmHg. On examination today, patient is comfortable. Denies any significant complaints. He states he is not eating much. Blood pressure is 154/80, heart rate 54 per minute. He is afebrile. EXAMINATION OF THE HEART: S1 and S2. EXAMINATION OF LUNGS: Decreased breath sounds at the bases. Abdomen is soft, non-tender. Examination of lower extremities shows chronic skin changes, edema 1+ bilaterally. 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 Labs show sodium 134, potassium 4.1, chloride 96, BUN 97, serum creatinine 3.08, hemoglobin 14.2 g/dL. AST 393, ALT is 426. ASSESSMENT: 1. Acute kidney injury associated with recent diuresis and cardiorenal syndrome. Patient's baseline creatinine has been around 1.8 to 2.4 previously. 2. Chronic kidney disease, stage 4, secondary to nephrosclerosis, cardiorenal syndrome. Baseline creatinine 1.8 to 2.4. 3. Acute on chronic diastolic congestive heart failure. 4. Lung nodule along with liver lesion, status post liver biopsy, possible metastatic lesion in the lung. 5. Ascites, status post paracentesis on September 07. 6. Volume overload, currently improved. 7. Hypertension associated with chronic kidney disease, stage 4. 8. Hypokalemia, status post replacement. PLAN: Decrease Lasix to 60 mg b.i.d. Repeat labs in a.m. Continue spironolactone. MMODL / IJN: [id number] /
--- NOTE | 2021-09-11 13:54 | P.PN ---
Subjective Progress Note Date: 09/11/21 66-year-old male, who presents to the emergency department, on September 06, complaining of shortness of breath, and increasing abdominal distention. The patient has a history of a lung mass, with multiple lesions in the liver, consistent with metastatic disease. Unfortunately, he has not had his CT-guided fine-needle biopsy of his liver lesions, which hopefully will give us a diagnosis and a stage. The patient does have a history of CHF, and COPD. He sees Dr. Valentine, as a primary. Recently, the patient's health has been declining, and is been in and out of the hospital multiple times recently. He denies any fever or chills. He denies any chest pain. He does admit to some recent diarrhea. He apparently is in palliative care. A paracentesis abdominis was done, and 2 L of fluid was removed. He is currently on 2 L nasal cannula. He's not receiving any IV fluids. Cytology from the ascitic fluid is pending. In addition, the patient has a history of atrial fibrillation, coronary artery disease, heart failure, COPD, diabetes mellitus, GERD, hyperlipidemia, hypertension, myocardial infarction, status post pacemaker insertion, diabetic neuropathy, chronic kidney disease, liver cirrhosis, and celiac disease, as well as dermatitis herpetiformis. White count of 17.5, hemoglobin 12.7, hematocrit 39.8, and platelet count 129,000. Sodium 136, potassium 3.9, chlorides 97, CO2 30, anion gap 9, BUN 72, creatinine 2.24. AST is 123, ALT is 185. Albumin is 3.1. Chest x-ray shows bilateral patchy infiltrates, likely related to underlying malignancy rather than pneumonia. CT of the abdomen and pelvis show evidence of ascites, small bilateral pleural effusions, and multiple nodules within the lung tobias. Progress note dated 09/09/2021. 66-year-old male, who presented with shortness of breath, and increasing abdominal distention. The patient had a paracentesis abdominis, performed by interventional radiology. 2.2 L of fluid was removed. The fluid cytology was negative. The patient has a lesion in his left lung, and multiple lesions in his liver on PET scan. We are thinking that his primary diagnosis is lung cancer with metastasis. He will still likely need a CT-guided fine-needle aspiration of a liver lesion, which would give us both a diagnosis and a staged. The patient's overall health in the last 6-8 weeks, has significantly declined, and he has had multiple admissions in the hospital. Currently, he is on room air. White count 22.1, hemoglobin 14.4, hematocrit 42.7, and platelet count 165,000. Sodium 137, potassium 3.4, chlorides 97, CO2 31, anion gap 9, BUN 72, and creatinine 2.35. the patient is seen today 09/11/2021 in follow-up on the selective care unit. He is currently resting comfortably in bed. No acute distress. He did undergo a liver biopsy by interventional radiology yesterday. Pathology pending. he is currently maintaining O2 saturation in the 90s on room air. He mechanically stable. Afebrile. White count 20.0. Hemoglobin 14.2. Sodium 134. Potassium 4.1. Creatinine 3.08. Glucose 220. AST 393. ALT 426. He is continued on DuoNeb inhalations, Symbicort, oral diuretics. Objective - Vital Signs Vital signs: Vital Signs Temp 97.4 F L 09/11/21 09:00 Pulse 76 09/11/21 13:00 Resp 18 09/11/21 05:00 BP 154/80 09/11/21 09:00 Pulse Ox 96 09/11/21 13:00 Intake & Output 09/10/21 09/11/21 09/11/21 18:59 06:59 18:59 Intake Total 480 720 240 Balance 480 720 240 Weight 86.9 kg Intake: Oral 480 720 240 Other: Voiding Method Toilet Toilet # Voids 1 - Exam Alert, pleasant 66-year-old gentleman. No acute distress, oriented 3. Currently on room air. No overt respiratory distress, conversational dyspnea, or use of accessory muscles. Room air . HEENT examination is grossly unremarkable. Neck supple. Full range of motion. No adenopathy thyromegaly or neck vein distention. Cardiovascular examination reveals regular rhythm rate. S1-S2 normal. No S3 or S4. No discernible murmur noted. Heart rate is 92 bpm. Lungs reveal mild scattered rhonchi. No wheezes or crackles. Breath sounds equal bilaterally. Abdomen is quite distended with a fluid wave. Mild tenderness on palpation. No masses. Extremities are intact. No cyanosis or clubbing. Mild lower extremity edema is noted. Skin is without rash or lesion. Neurologic examination is brief but nonfocal. - Labs CBC & Chem 7: 09/11/21 08:27 09/11/21 08:27 Labs: Abnormal Lab Results - Last 24 Hours (Table) 09/10/21 09/10/21 09/11/21 Range/Units 17:08 20:55 06:28 WBC (3.8-10.6) k/uL Plt Count (150-450) k/uL Neutrophils # (1.3-7.7) k/uL Lymphocytes # (1.0-4.8) k/uL Sodium (137-145) mmol/L Chloride (98-107) mmol/L BUN (9-20) mg/dL Creatinine (0.66-1.25) mg/dL Glucose (74-99) mg/dL POC Glucose (mg/dL) 255 H 332 H 203 H (75-99) mg/dL Total Bilirubin (0.2-1.3) mg/dL AST (17-59) U/L ALT (4-49) U/L Alkaline Phosphatase (38-126) U/L Total Protein (6.3-8.2) g/dL Albumin (3.5-5.0) g/dL 09/11/21 09/11/21 09/11/21 Range/Units 08:27 08:27 12:05 WBC 22.0 H (3.8-10.6) k/uL Plt Count 106 L (150-450) k/uL Neutrophils # 20.6 H (1.3-7.7) k/uL Lymphocytes # 0.4 L (1.0-4.8) k/uL Sodium 134 L (137-145) mmol/L Chloride 96 L (98-107) mmol/L BUN 97 H (9-20) mg/dL Creatinine 3.08 H (0.66-1.25) mg/dL Glucose 220 H (74-99) mg/dL POC Glucose (mg/dL) 199 H (75-99) mg/dL Total Bilirubin 5.9 H (0.2-1.3) mg/dL AST 393 H (17-59) U/L ALT 426 H (4-49) U/L Alkaline Phosphatase 368 H (38-126) U/L Total Protein 5.9 L (6.3-8.2) g/dL Albumin 3.3 L (3.5-5.0) g/dL Microbiology - Last 24 Hours (Table) 09/07/21 10:15 Gram Stain - Final Paracentesis Fluid Body Fluid Culture - Final 09/07/21 10:15 Anaerobic Culture - Preliminary Paracentesis Fluid Assessment and Plan Assessment: 1 Suspected lung cancer, with liver metastasis, not yet diagnosed. Status post liver biopsy 09/10/2021. 2 Status post large-volume paracentesis abdominis, cytology is negative. 3 History of underlying COPD from previous tobacco use. 4 History of atrial fibrillation. 5 History of coronary artery disease. 6 History of CHF. 7 History of diabetes mellitus with diabetic neuropathy. 8 History of gastroesophageal reflux disease. 9 History of hyperlipidemia. 10 History of hypertension. 11 Chronic kidney disease. 12 Prior history of myocardial infarction, status post PCI with stents. 13 Status post pacemaker insertion. 14 History of BPH. 15 Multiple other medical problems and comorbidities. Plan: The patient was seen and evaluated by Dr. Queen Currently stable from the pulmonary standpoint, on room air Awaiting liver biopsy results Continue current treatment plan, oral diuretics We will continue to follow I, the cosigning physician, performed a history & physical examination of the patient. Lungs sounds with few scattered rhonchi. Maintaining good O2 saturations in the 90s on room air. I discussed the assessment and plan of care with my nurse practitioner, Chelsea Shankar. I attest to the above note as dictated by her.
[2021-09-11 16:37] LABS: Glucose,Whole Blood 189 mg/dL (75-99)
--- NOTE | 2021-09-11 19:37 | P.PN ---
Subjective Progress Note Date: 09/11/21 Principal diagnosis: Abdominal distention 66-year-old male with a known history of COPD on home oxygen, recent lung mass on CT chest on follow up with pulmonary, persistent atrial fibrillation on anticoagulation with xarelto, sick sinus syndrome with history of permanent pacemaker placement, coronary artery disease history of stent placement to circumflex, diabetes type 2 insulin-dependent, hypertension, hyperlipidemia, chronic CHF with diastolic dysfunction and previous history of smoking and alcohol use presents to ER with complaints of Abdominal distention. Patient do es have a history of liver cirrhosis due to previous history of alcohol abuse. Patient had previous admissions with acute on chronic CHF with diastolic dysfunction and also history of lung nodules. Patient is supposed to get biopsy of the lung nodule. Patient had previous history of right-sided pleural effusion and thoracentesis. Patient was recently discharged in the hospital on 08/19/2021. Patient had PET scan on 08/20/2021 showed high stage neoplasm with cirrhotic liver-multiple hypermetabolic dialysis could reflect metastatic disease. Abnormal left lung mass with thoracic adenopathy. Chest x-ray showed patchy bilateral infiltrate correlate for multifocal pneumonia. Neoplasm not excluded. CT of the abdomen pelvis showed ascites, small bilateral pleural effusions, multiple nodules within the visualized lung bases. Clinical consideration for colitis in the right upper quadrant is recommended. Laboratory data showed WBC 13.6 hemoglobin 12.6 and platelets 152 Sodium 130 potassium 3.9 chloride 93 BUN 64 and creatinine 1.9 Blood sugar is 314 Calcium 8.0 09/11/2021 Patient is seen and evaluated in follow-up on the selective care unit. He is currently resting comfortably in bed. No acute distress. He did undergo a liver biopsy by interventional radiology yesterday; continues to complain of discomfort at biopsy site. Pathology pending. he is currently maintaining O2 saturation in the 90s on room air. White count 20.0. Hemoglobin 14.2. Sodium 134. Potassium 4.1. Creatinine 3.08. Glucose 220. AST 393. ALT 426. He is continued on DuoNeb inhalations, Symbicort, oral diuretics. Objective - Vital Signs Vital signs: Vital Signs Temp 97.4 F L 09/11/21 09:00 Pulse 76 09/11/21 13:00 Resp 18 09/11/21 05:00 BP 154/80 09/11/21 09:00 Pulse Ox 96 09/11/21 13:00 Intake & Output 09/10/21 09/11/21 09/11/21 18:59 06:59 18:59 Intake Total 480 720 240 Balance 480 720 240 Weight 86.9 kg Intake: Oral 480 720 240 Other: Voiding Method Toilet Toilet Toilet # Voids 1 2 - Exam PHYSICAL EXAMINATION: GENERAL: The patient is alert and oriented x3, not in any acute distress. Well developed, well nourished. HEENT: Pupils are round and equally reacting to light. EOMI. No scleral icterus. No conjunctival pallor. Normocephalic, atraumatic. No pharyngeal erythema. No thyromegaly. CARDIOVASCULAR: S1 and S2 present. No murmurs, rubs, or gallops. PULMONARY: Chest is clear to auscultation, no wheezing or crackles. ABDOMEN: Soft, nontender, nondistended, normoactive bowel sounds. No palpable organomegaly. MUSCULOSKELETAL: No joint swelling or deformity. EXTREMITIES: No cyanosis, clubbing, or pedal edema. NEUROLOGICAL: Gross neurological examination did not reveal any focal deficits. SKIN: No rashes. - Labs CBC & Chem 7: 09/11/21 08:27 09/11/21 08:27 Labs: Abnormal Lab Results - Last 24 Hours (Table) 09/10/21 09/10/21 09/11/21 Range/Units 17:08 20:55 06:28 WBC (3.8-10.6) k/uL Plt Count (150-450) k/uL Neutrophils # (1.3-7.7) k/uL Lymphocytes # (1.0-4.8) k/uL Sodium (137-145) mmol/L Chloride (98-107) mmol/L BUN (9-20) mg/dL Creatinine (0.66-1.25) mg/dL Glucose (74-99) mg/dL POC Glucose (mg/dL) 255 H 332 H 203 H (75-99) mg/dL Total Bilirubin (0.2-1.3) mg/dL AST (17-59) U/L ALT (4-49) U/L Alkaline Phosphatase (38-126) U/L Total Protein (6.3-8.2) g/dL Albumin (3.5-5.0) g/dL 10/09/11/21 09/11/21 Range/Units 08:27 08:27 12:05 WBC 22.0 H (3.8-10.6) k/uL Plt Count 106 L (150-450) k/uL Neutrophils # 20.6 H (1.3-7.7) k/uL Lymphocytes # 0.4 L (1.0-4.8) k/uL Sodium 134 L (137-145) mmol/L Chloride 96 L (98-107) mmol/L BUN 97 H (9-20) mg/dL Creatinine 3.08 H (0.66-1.25) mg/dL Glucose 220 H (74-99) mg/dL POC Glucose (mg/dL) 199 H (75-99) mg/dL Total Bilirubin 5.9 H (0.2-1.3) mg/dL AST 393 H (17-59) U/L ALT 426 H (4-49) U/L Alkaline Phosphatase 368 H (38-126) U/L Total Protein 5.9 L (6.3-8.2) g/dL Albumin 3.3 L (3.5-5.0) g/dL Microbiology - Last 24 Hours (Table) 09/07/21 10:15 Anaerobic Culture - Final Paracentesis Fluid 09/07/21 10:15 Gram Stain - Final Paracentesis Fluid Body Fluid Culture - Final Assessment and Plan Assessment: Abdominal distention due to ascites status post paracentesis with 2.2 L fluid removal Alcoholic liver cirrhosis suspicious multiple liver metastatic lesions as per Recent history of PET scan on 08/20/21 . chronic CHF with diastolic dysfunction Recently diagnosed lung nodules with abdominal CT chest.. Supposed to follow with pulmonary clinic. s/p outpatient PET scan on 08/20/2021 Hyperglycemia with uncontrolled diabetes type 2 Elevated troponin level unlikely ACS. Hyponatremia likely hypervolemic. Possible SIADH cannot be excluded. Bilateral small pleural effusions with recent history of right thoracentesis Chronic postnasal drip Persistent atrial fibrillation on anticoagulation with xarelto. Was on hold for persistent nosebleeds. Cardiology recommends to start back on xarelto. Sick sinus syndrome with history of permanent pacemaker placement coronary artery disease history of stent placement to circumflex Hypertension Hyperlipidemia Chronic hypoxic respiratory failure secondary to COPD Previous history of smoking History of liver cirrhosis DVT prophylaxis Full code Plan: Patient is status post paracentesis with 2.2 L fluid removal. Cell count and differential showed no evidence of SBP. Follow-up fluid culture and cytology report. Replace electrolytes and patient will be started back on Lasix and spironolactone. Monitor renal function. Continue with home medications and follow-up closely. Pulmonary and cardiology was consulted. Prognosis guarded at this time.
[2021-09-11] MEDS: MONTELUKAST 10 MG TAB PO SCH (20:27)
[2021-09-11] MEDS: ZOLPIDEM 5 MG TAB PO PRN (20:27)
[2021-09-11 20:46] LABS: Glucose,Whole Blood 230 mg/dL (75-99)
[2021-09-11] MEDS: INSULIN DETEMIR (LEVEMIR) 100 UNIT/ML SYR SQ SCH (21:08)
[2021-09-12] MEDS: PANTOPRAZOLE 40 MG TABLET PO SCH (06:15)
[2021-09-12] MEDS: INSULIN ASPART (NovoLOG) 100 UNIT/ML VIAL SQ SCH ×4 (06:16→20:24)
[2021-09-12 06:17] LABS: Glucose,Whole Blood 121 mg/dL (75-99)
[2021-09-12] MEDS: IPRATROPIUM-ALBUTEROL 3 ML NEB INHALATION SCH ×4 (07:51→19:51)
[2021-09-12] MEDS: SYMBICORT 160-4.5 MCG INHALER INHALATION SCH ×2 (07:51→19:51)
[2021-09-12] MEDS: DILTIAZEM ORAL 30 MG TAB PO SCH ×2 (09:28→20:23)
[2021-09-12] MEDS: hydrALAZINE HCL 50 MG TAB PO SCH ×3 (09:28→22:35)
[2021-09-12] MEDS: FLECAINIDE 50 MG TAB PO SCH ×2 (09:28→20:24)
[2021-09-12] MEDS: FUROSEMIDE 20 MG TAB PO SCH ×3 (09:28→17:44)
[2021-09-12] MEDS: allopurinoL 100 MG TAB PO SCH (09:29)
[2021-09-12] MEDS: ISOSORBIDE MONONITRATE ER 30 MG TAB.ER.24H PO SCH (09:29)
[2021-09-12] MEDS: METOPROLOL TARTRATE 50 MG TAB PO SCH ×2 (09:29→20:24)
--- NOTE | 2021-09-12 10:39 | P.PN ---
Subjective Progress Note Date: 09/12/21 HISTORY OF PRESENT ILLNESS: This is a 75 year old with a past medical history significant for coronary artery disease status post PCI to the diagonal branch and circumflex, paroxysmal atrial fibrillation not on anticoagulation secondary to nosebleeds, sick sinus syndrome status post pacemaker, diabetes, chronic kidney disease, hypertension, diastolic heart failure, COPD, and former nicotine dependence. Patient follows in the office with Dr. Morgan. We have been asked to see the patient in consultation for CHF. Patient examined at the bedside. Patient states he was supposed to have a liver biopsy performed yesterday but he was experiencing increased abdominal distention so he came to the ER for further evaluation. Patient underwent paracentesis yesterday by interventional radiology with removal of 2.2 L of serous fluid. Patient currently denies chest pain or pressure. EKG reveals atrial flutter with incomplete left bundle branch block Chest xray patchy bilateral infiltrates correlate for multifocal pneumonia. Neoplasm not excluded. Laboratory data: WBC 17.5. Hemoglobin 12.7. Platelet count 129. Sodium 136. Potassium 3.9. BUN 72. Creatinine 2.24. Bilirubin 4.4. AST 123. ALT 185. Current home cardiac medications include hydralazine 100 mg 3 times a day, C ardizem 90 mg twice a day, Aldactone 12.5 mg daily, Pravachol 20 mg daily, metoprolol tartrate 50 g twice a day, Imdur 30 mg daily, Lasix 80 mg the morning and 40 mg in the afternoon, flecainide 100 mg twice a day, and aspirin 81 mg daily Most recent echocardiogram obtained in June 2021 reveals ejection fraction 55- 60%, mild aortic stenosis, mild mitral regurgitation, mild tricuspid regurgitation 09/09/2021 Patient examined at the bedside. Patient denies chest pain or pressure. Denies shortness of breath. Cytology of ascitic fluid negative for malignancy. Patient was in and out of atrial fibrillation overnight. He is currently in sinus mechanism. 09/11/2021 Patient examined this morning. He is sitting up in the chair. He underwent liver biopsy yesterday. He denies chest pain or pressure. He denies shortness of breath. Telemetry reveals sinus mechanism with a heart rate in the 60s. Blood pressure 132/70. 09/12/2021 Patient examined this morning. He is sitting up in the chair. He denies chest pain or pressure. He denies shortness of breath. He is s/p liver biopsy. Results are currently pending. PHYSICAL EXAM: VITAL SIGNS: Reviewed. GENERAL: Well-developed in no acute distress. HEENT: Head is normocephalic. Pupils are equal, round. Sclerae anicteric. Mucous membranes of the mouth are moist. Neck supple. No JVD or thyromegaly LUNGS: Respirations even and unlabored. Lungs diminished to auscultation bilaterally. HEART: Regular rate and rhythm. S1 and S2 heard. ABDOMEN: Soft. Distended. Nontender. EXTREMITIES: Normal range of motion. No clubbing or cyanosis. Peripheral pulses intact. Trace bilateral lower extremity edema NEUROLOGIC: Awake and alert. Oriented x 3. ASSESSMENT: Ascites, status post paracentesis Lung and liver lesions, r/o malignancy, post liver biopsy Coronary artery disease with previous PCI Chronic kidney disease Chronic diastolic heart failure Paroxysmal atrial fibrillation/atypical flutter, not on anticoagulation COPD Hypertension Diabetes PLAN: Continue current home cardiac medications Await results of liver biopsy Patient is currently stable from a cardiac perspective Further recommendations pending patient's course Nurse practitioner note has been reviewed by physician. Signing provider agrees with the documented findings, assessment, and plan of care. Objective - Vital Signs Vital signs: Vital Signs Temp 98.0 F 09/12/21 05:00 Pulse 80 09/12/21 08:02 Resp 20 09/12/21 05:00 BP 122/76 09/12/21 05:00 Pulse Ox 96 09/12/21 07:50 Intake & Output 09/11/21 09/12/21 09/12/21 18:59 06:59 18:59 Intake Total 240 480 240 Output Total 375 Balance 240 105 240 Weight 85.5 kg Intake: Oral 240 480 240 Output: Urine 375 Other: Voiding Method Toilet Toilet # Voids 2 2 # Bowel Movements 1 - Labs CBC & Chem 7: 09/11/21 08:27 09/11/21 08:27 Labs: Abnormal Lab Results - Last 24 Hours (Table) 09/11/21 09/11/21 09/11/21 Range/Units 12:05 16:34 20:44 POC Glucose (mg/dL) 199 H 189 H 230 H (75-99) mg/dL 09/12/21 Range/Units 06:15 POC Glucose (mg/dL) 121 H (75-99) mg/dL Microbiology - Last 24 Hours (Table) 09/07/21 10:15 Anaerobic Culture - Final Paracentesis Fluid 09/07/21 10:15 Gram Stain - Final Paracentesis Fluid Body Fluid Culture - Final
[2021-09-12 11:56] LABS: Glucose,Whole Blood 138 mg/dL (75-99)
[2021-09-12] MEDS: SPIRONOLACTONE 25 MG TAB PO SCH (13:11)
[2021-09-12 13:15] LABS: Basophils % (A) 0 %; Eosinophils % (A) 0 %; HGB 14.6 gm/dL (13.0-17.5); Lymphocytes # (A) 0.4 k/uL (1.0-4.8); Lymphocytes % (A) 2 %; MCH 32.3 pg (25.0-35.0); MCHC 33.2 g/dL (31.0-37.0); MCV 97.3 fL (80.0-100.0); Mean Platelet Volume 12.3; Monocytes # (A) 0.7 k/uL (0-1.0); Monocytes % (A) 4 %; Neutrophils # (A) 16.5 k/uL (1.3-7.7); Neutrophils % (A) 93 %; RBC 4.53 m/uL (4.30-5.90); RDW 15.9 % (11.5-15.5); WBC 17.7 k/uL (3.8-10.6)
[2021-09-12 13:46] LABS: Platelet Count 92 k/uL (150-450)
[2021-09-12 13:47] LABS: Large Platelets Present
[2021-09-12 13:48] LABS: Calcium 8.5 mg/dL (8.4-10.2); Potassium 3.8 mmol/L (3.5-5.1)
[2021-09-12 14:10] LABS: C Reactive Protein 15.3 mg/dL (<1.0)
--- NOTE | 2021-09-12 15:00 | P.PN ---
Subjective Progress Note Date: 09/12/21 Principal diagnosis: Suspected metastatic lung cancer status post liver biopsy 66-year-old male, who presents to the emergency department, on September 06, complaining of shortness of breath, and increasing abdominal distention. The patient has a history of a lung mass, with multiple lesions in the liver, consistent with metastatic disease. Unfortunately, he has not had his CT-guided fine-needle biopsy of his liver lesions, which hopefully will give us a diagnosis and a stage. The patient does have a history of CHF, and COPD. He sees Dr. Valentine, as a primary. Recently, the patient's health has been declining, and is been in and out of the hospital multiple times recently. He denies any fever or chills. He denies any chest pain. He does admit to some recent diarrhea. He apparently is in palliative care. A paracentesis abdominis was done, and 2 L of fluid was removed. He is currently on 2 L nasal cannula. He's not receiving any IV fluids. Cytology from the ascitic fluid is pending. In addition, the patient has a history of atrial fibrillation, coronary artery disease, heart failure, COPD, diabetes mellitus, GERD, hyperlipidemia, hypertension, myocardial infarction, status post pacemaker insertion, diabetic neuropathy, chronic kidney disease, liver cirrhosis, and celiac disease, as well as dermatitis herpetiformis. White count of 17.5, hemoglobin 12.7, hematocrit 39.8, and platelet count 129,000. Sodium 136, potassium 3.9, chlorides 97, CO2 30, anion gap 9, BUN 72, creatinine 2.24. AST is 123, ALT is 185. Albumin is 3.1. Chest x-ray shows bilateral patchy infiltrates, likely related to underlying malignancy rather than pneumonia. CT of the abdomen and pelvis show evidence of ascites, small bilateral pleural effusions, and multiple nodules within the lung tobias. Progress note dated 09/09/2021. 66-year-old male, who presented with shortness of breath, and increasing abdominal distention. The patient had a paracentesis abdominis, performed by interventional radiology. 2.2 L of fluid was removed. The fluid cytology was negative. The patient has a lesion in his left lung, and multiple lesions in his liver on PET scan. We are thinking that his primary diagnosis is lung cancer with metastasis. He will still likely need a CT-guided fine-needle aspiration of a liver lesion, which would give us both a diagnosis and a staged. The patient's overall health in the last 6-8 weeks, has significantly declined, and he has had multiple admissions in the hospital. Currently, he is on room air. White count 22.1, hemoglobin 14.4, hematocrit 42.7, and platelet count 165,000. Sodium 137, potassium 3.4, chlorides 97, CO2 31, anion gap 9, BUN 72, and creatinine 2.35. the patient is seen today 09/11/2021 in follow-up on the selective care unit. He is currently resting comfortably in bed. No acute distress. He did undergo a liver biopsy by interventional radiology yesterday. Pathology pending. he is currently maintaining O2 saturation in the 90s on room air. He mechanically stable. Afebrile. White count 20.0. Hemoglobin 14.2. Sodium 134. Potassium 4.1. Creatinine 3.08. Glucose 220. AST 393. ALT 426. He is continued on DuoNeb inhalations, Symbicort, oral diuretics. On 09/12/2021 patient seen in follow-up on selective care unit, he is awake and alert, he is oriented 3, he appears weak, fatigued, a bit more jaundiced. He is status post fine-needle aspirate biopsy of the liver, and the pathology repo rt is still pending. Patient had a ultrasound-guided paracentesis on 09/07/2021 and 2.2 L of ascitic fluid was removed, with nondiagnostic cytology. Denies any respiratory difficulty, he is on 2 L of oxygen pulse ox 97%, he is afebrile, hemodynamically stable. Today's labs have been reviewed, his white blood cell, 17.7, hemoglobin is 14.6, sodium is 135, potassium is 3.8, chloride is 1, B1 is 102, creatinine is 3.01. His liver enzymes were trending up on yesterday's labs, and his AST was up to 393, ALT is 426, his alkaline phosphatase is 368. His hepatitis panel was nonreactive. Ascites fluid cultures were negative. No cough, no chest discomfort, patient remains on DuoNeb, Symbicort, he is on oral Lasix 60 mg twice daily. Objective - Vital Signs Vital signs: Vital Signs Temp 98.0 F 09/12/21 09:00 Pulse 84 09/12/21 11:55 Resp 20 09/12/21 05:00 BP 124/71 09/12/21 09:00 Pulse Ox 97 09/12/21 09:00 Intake & Output 09/11/21 09/12/21 09/12/21 18:59 06:59 18:59 Intake Total 240 480 240 Output Total 375 100 Balance 240 105 140 Weight 85.5 kg Intake: Oral 240 480 240 Output: Urine 375 100 Other: Voiding Method Toilet Toilet # Voids 2 2 # Bowel Movements 1 - Exam GENERAL EXAM: Alert, pleasant, very weak, fatigued and slightly jaundiced 66-year-old white male, with pulse ox of 97% on 2 L comfortable in no apparent distress. HEAD: Normocephalic/atraumatic. EYES: Normal reaction of pupils, equal size. Conjunctiva pink, sclera white. NOSE: Clear with pink turbinates. THROAT: No erythema or exudates. NECK: No masses, no JVD, no thyroid enlargement, no adenopathy. CHEST: No chest wall deformity. Symmetrical expansion. LUNGS: Equal air entry with diminished breath sounds at the bases, with some mild crackles CVS: Regular rate and rhythm, normal S1 and S2, no gallops, no murmurs, no rubs ABDOMEN: Soft, nontender. No hepatosplenomegaly, normal bowel sounds, no guarding or rigidity. EXTREMITIES: No clubbing, no edema, no cyanosis, 2+ pulses and upper and lower extremities. MUSCULOSKELETAL: Muscle strength and tone normal. SPINE: No scoliosis or deformity SKIN: No rashes CENTRAL NERVOUS SYSTEM: Alert and oriented -3. No focal deficits, tone is normal in all 4 extremities. PSYCHIATRIC: Alert and oriented -3. Appropriate affect. Intact judgment and insight. - Labs CBC & Chem 7: 09/12/21 12:34 09/12/21 12:34 Labs: Abnormal Lab Results - Last 24 Hours (Table) 09/11/21 09/11/21 09/12/21 Range/Units 16:34 20:44 06:15 WBC (3.8-10.6) k/uL RDW (11.5-15.5) % Plt Count (150-450) k/uL Neutrophils # (1.3-7.7) k/uL Lymphocytes # (1.0-4.8) k/uL Sodium (137-145) mmol/L Chloride (98-107) mmol/L BUN (9-20) mg/dL Creatinine (0.66-1.25) mg/dL Glucose (74-99) mg/dL POC Glucose (mg/dL) 189 H 230 H 121 H (75-99) mg/dL C-Reactive Protein (<1.0) mg/dL 09/12/21 09/12/21 09/12/21 Range/Units 11:52 12:34 12:34 WBC 17.7 H (3.8-10.6) k/uL RDW 15.9 H (11.5-15.5) % Plt Count 92 L (150-450) k/uL Neutrophils # 16.5 H (1.3-7.7) k/uL Lymphocytes # 0.4 L (1.0-4.8) k/uL Sodium 135 L (137-145) mmol/L Chloride 97 L (98-107) mmol/L BUN 102 H* (9-20) mg/dL Creatinine 3.01 H (0.66-1.25) mg/dL Glucose 141 H (74-99) mg/dL POC Glucose (mg/dL) 138 H (75-99) mg/dL C-Reactive Protein 15.3 H (<1.0) mg/dL Microbiology - Last 24 Hours (Table) 09/07/21 10:15 Anaerobic Culture - Final Paracentesis Fluid 09/07/21 10:15 Gram Stain - Final Paracentesis Fluid Body Fluid Culture - Final Assessment and Plan Plan: Assessment: #1. Suspected metastatic lung cancer with metastasis to the liver, status post CT-guided fine-needle biopsy on 09/10/2021 by interventional radiology, biopsy results still pending at this time #2. Status post large volume paracentesis, with negative cytology #3. History of underlying COPD, which is currently inactive and stable #4. History of paroxysmal atrial fibrillation on Xarelto #5. Coronary artery disease with previous stenting #6. History of chronic right hemidiaphragmatic elevation/processes #7. History of tachybradycardia syndrome status post pacemaker insertion #8. Hypertensive heart disease with LV concentric hypertrophy #9. Diabetes TYPE II diabetic neuropathy #10. Hypertension #12. Hyperlipidemia #13. Osteoarthritis #14. Chronic kidney disease #15. History of CHF with diastolic dysfunction Plan: Continue current medical management Still awaiting results of his liver biopsy Clinically patient appears weak, fatigued, No acute events overnight Continue nebulized bronchodilators, continue Symbicort Continue antiarrhythmics, Lasix, anticoagulation per cardiology Patient does not think he can tolerate treatment for cancer which is strongly suspected in his case Told the patient to wait for the results of the biopsy I performed a history & physical examination of the patient and discussed their management with my nurse practitioner, Jojo Langford. I reviewed the nurse practitioner's note and agree with the documented findings and plan of care. Lung sounds are positive for diffuse wheezes throughout the lung tobias. The findings and the impression was discussed with the patient. I attest to the documentation by the nurse practitioner. Time with Patient: Less than 30
[2021-09-12 17:00] LABS: Glucose,Whole Blood 209 mg/dL (75-99)
[2021-09-12 19:54] LABS: Glucose,Whole Blood 277 mg/dL (75-99)
[2021-09-12] MEDS: MONTELUKAST 10 MG TAB PO SCH (20:23)
[2021-09-12] MEDS: MIRTAZAPINE 15 MG TAB PO SCH (20:24)
[2021-09-12] MEDS: INSULIN DETEMIR (LEVEMIR) 100 UNIT/ML SYR SQ SCH (20:24)
[2021-09-12] MEDS: ZOLPIDEM 5 MG TAB PO PRN (22:35)
[2021-09-13 06:07] LABS: Glucose,Whole Blood 80 mg/dL (75-99)
[2021-09-13] MEDS: INSULIN ASPART (NovoLOG) 100 UNIT/ML VIAL SQ SCH ×4 (06:44→20:50)
[2021-09-13] MEDS: PANTOPRAZOLE 40 MG TABLET PO SCH (06:56)
[2021-09-13] MEDS: SYMBICORT 160-4.5 MCG INHALER INHALATION SCH ×2 (07:43→20:14)
[2021-09-13] MEDS: IPRATROPIUM-ALBUTEROL 3 ML NEB INHALATION SCH ×4 (07:43→20:14)
[2021-09-13 07:47] LABS: Basophils % (A) 0 %; Eosinophils % (A) 0 %; HCT 43.3 % (39.0-53.0); Lymphocytes # (A) 0.5 k/uL (1.0-4.8); Lymphocytes % (A) 3 %; MCH 31.9 pg (25.0-35.0); MCHC 32.4 g/dL (31.0-37.0); MCV 98.5 fL (80.0-100.0); Mean Platelet Volume 12.6; Monocytes # (A) 0.7 k/uL (0-1.0); Monocytes % (A) 4 %; Neutrophils # (A) 16.2 k/uL (1.3-7.7); Neutrophils % (A) 92 %; Platelet Count 92 k/uL (150-450); RDW 15.3 % (11.5-15.5); WBC 17.6 k/uL (3.8-10.6)
[2021-09-13 08:05] LABS: Calcium 8.6 mg/dL (8.4-10.2); Potassium 3.6 mmol/L (3.5-5.1)
[2021-09-13 08:14] LABS: Glucose,Whole Blood 91 mg/dL (75-99)
--- NOTE | 2021-09-13 08:32 | P.CONS ---
History of Present Illness - Reason for Consult Consult date: 09/12/21 leukocytosis Requesting physician: Viktoriya Lazar - Chief Complaint abd distension and diarrhea x days - History of Present Illness History of present illness : Patient is 66-year-old male presenting to the ER 6 days ago for evaluation of abdominal distention in this patient who did have a history of nodules on the lung and the liver which has not been biopsied prior to presentation to the hospital patient noticed progressive worsening of abdominal distention and weight gain palliative care nurse sent the patient to the ER for further evaluation patient also complaining of diarrhea that has been going on for him more than a week multiple episodes per day but no blood or mucus in the stools with the symptom the patient has been admitted to the hospital patient did not have any fever during this admission however patient did have white count of 16,000 that is up to 22,000 on the slightly came down to 18.8 yesterday however went back to 22,040 infectious disease was consulted patient did have a CT of abdominal pelvis which did show cystitis small bilateral pleural effusion multiple nodules within the visualized lung base and consideration for colitis in the right upper quadrant patient did have a chronic hepatitis profile which has been negative patient did have a paracentesis with removal of 2.2 l of serous fluid analysis did shows a nucle ated cells on 125 and the cultures has been negative so far patient was given a dose of ceftriaxone however the patient did have a multiple antibiotic allergies that has prompted this infectious disease consultation patient currently denies having any chest pain shortness of breath or cough pain symptom has been abdominal distention has slight decrease no nausea still having diarrhea but no blood or mucus in the stool Review of system: CONSTITUTIONAL: Positive for weakness denies fever. EYES: No complaint. ENT: No complaint. RESPIRATORY: As per history of present illness. CARDIOVASCULAR: No complaint. GENITOURINARY: No complaint. GASTROINTESTINAL as per history of present illness. MUSCULOSKELETAL: No complaint. INTEGUMENTARY: No complaint. PSYCHOLOGIC: No complaint. ENDOCRINE: No complaint. NEUROLOGIC: No complaint. Past medical history : Reviewed, documented below Past surgical history : Reviewed, documented below Social history: Reviewed, documented below Medications: Reviewed, as documented below EXAMINATION: Vital sigans= Reviewed and documented below GENERAL DESCRIPTION: Elderly male up in the chair, no distress. No tachypnea or accessory muscle of respiration use. HEENT: Shows Pallor , no scleral icterus. Oral mucous membrane is dry. NECK: Trachea central, no thyromegaly. LUNGS: Unlabored breathing. Decreased breath sound at the base. No wheeze or crackle. HEART: S1, S2, regular rate and rhythm. ABDOMEN: Soft, distention and no significant tenderness , guarding or rigidity EXTREMITIES: No edema of feet. SKIN: No rash, no masses palpable. NEUROLOGICAL: The patient is awake, alert, oriented x3, mood and affect normal. LABS AND RADIOLOGY: Reviewed results see below Assessment : 1-patient is a 66-year male presented to hospital about a week ago for abdominal distention in this patient who did have evidence of pulmonary nodules and there was question of possible spots on the liver which have not been biopsied patient did have paracentesis this admission which did not show any suspicious for infection and the culture has been negative CT did shows right-sided colitis and the patient has been complaining of diarrhea more likely the source of his elevated white count 2-patient with multiple antibiotic allergies that would limit the number of antibiotics safe to use Plan: 1-we will obtain stool for C. difficile and stool culture 2-empirically start the patient on Azactam and Flagyl , because of his allergies and Cipro couldnot be used because of QT prolongation with his other meds We will follow on clinical condition and cultures to further adjust medication if needed Thank you for this consultation we will follow the patient along with you Past Medical History Past Medical History: Atrial Fibrillation, Coronary Artery Disease (CAD), Chest Pain / Angina, Heart Failure, COPD, Diabetes Mellitus, GERD/Reflux, Hyperlipidemia, Hypertension, Liver Disease, Myocardial Infarction (GA), Prostate Disorder, Renal Disease, Skin Disorder, Vascular Disorder Additional Past Medical History / Comment(s): history ofAfib with RVR, tachybrady syndrome with pacemaker, IDDM type II, neuropathy bilateral feet, stage III chronic kidney disease, chronic CHF, R pleural effusion, liver cirrhosis, BPH, DJD, herniated discs low back, chronic low back pain, varicose veins , anemia with hx of iron infusions., past asbestos exposure, celiac disease, dermatitis herpetiformis. Last Myocardial Infarction Date:: 06/2018 History of Any Multi-Drug Resistant Organisms: None Reported Past Surgical History: Ablation, Cardiac Ablation, Cholecystectomy, Heart Catheterization With Stent, Pacemaker, Tonsillectomy Additional Past Surgical History / Comment(s): PCI with STENTS x 3, bilateral cataracts removed with lens implants, colonoscopy, [employer] pacemaker Past Anesthesia/Blood Transfusion Reactions: No Reported Reaction Date of Last Stent Placement:: 2017 Type of Cardiac Device: Permanent Pacemaker Device Placement Date:: 02/02/19 Past Psychological History: No Psychological Hx Reported Additional Psychological History / Comment(s): Pt resides with his spouse. He is independent. He is retired from [employer] Smoking Status: Former smoker Past Alcohol Use History: None Reported Additional Past Alcohol Use History / Comment(s): Started smoking in 1967, a half pack a day. Quit smoking January 2019. Pt states he drank heavy in the past but since 2008 rarely. Past Drug Use History: None Reported - Past Family History Mother Family Medical History: Diabetes Mellitus Father Family Medical History: Myocardial Infarction (GA) Additional Family Medical History / Comment(s): Father had a GA in his 70s. Brother(s) Family Medical History: Myocardial Infarction (GA) Additional Family Medical History / Comment(s): Brother had a GA in his 50s. Medications and Allergies Home Medications Medication Instructions Recorded Confirmed Type Fluticasone Nasal [place] [Flonase 1 spr EA NOSTRIL DAILY 05/12/16 09/06/21 History Nasal [place]] Isosorbide Mononitrate ER [Imdur] 30 mg PO DAILY 01/16/19 09/06/21 History Pantoprazole [Protonix] 40 mg PO DAILY 01/16/19 09/06/21 History Montelukast [Singulair] 10 mg PO HS 02/12/19 09/06/21 History Loratadine [Claritin] 10 mg PO DAILY 03/28/19 09/06/21 History Metoprolol Tartrate [Lopressor] 50 mg PO BID 03/28/19 09/06/21 History Vitamin B Complex 1 cap PO DAILY 06/24/19 09/06/21 History allopurinoL [Zyloprim] 100 mg PO DAILY 06/24/19 09/06/21 History Ubidecarenone [Co Q-10] 200 mg PO DAILY 08/01/19 09/06/21 History Pravastatin Sodium [Pravachol] 20 mg PO DAILY 11/11/19 09/06/21 History Albuterol Sulfate [Ventolin HFA] 1 - 2 puff INHALATION RT-Q4H PRN 07/25/21 09/06/21 History Fluticasone/Salmeterol 1 puff INHALATION RT-BID 07/25/21 09/06/21 History [Fluticasone-Salmeterol 232-14] Folic Acid 0.4 mg PO DAILY 07/25/21 09/06/21 History dilTIAZem HCL 90 mg PO BID 07/25/21 09/06/21 History hydrALAZINE HCL [Apresoline] 100 mg PO TID 07/25/21 09/06/21 History Nitroglycerin Sl Tabs [Nitrostat] 0.4 mg SL Q5M PRN 07/26/21 09/06/21 History Ipratropium-Albuterol Nebulize 3 ml INHALATION RT-QID 30 Days #90 07/30/21 09/06/21 Rx [Duoneb 0.5 mg-3 mg/3 ml Soln] ml Aspirin 81 mg PO DAILY #30 08/09/21 09/09/21 Rx Sodium Chloride 0.65% Nasal [Deep 2 spray NASAL QID PRN #7 ml 08/09/21 09/06/21 Rx Sea (Saline)] Spironolactone [Aldactone] 12.5 mg PO DAILY #30 tab 08/09/21 09/06/21 Rx Flecainide Acetate 100 mg PO BID 08/18/21 09/06/21 History Furosemide [Lasix] 40 mg PO DAILY@1600 #30 tab 08/19/21 09/06/21 Rx Cholecalciferol (Vitamin D3) 75 mcg PO DAILY 08/30/21 09/06/21 History [Vitamin D3 (3000 Iu)] Furosemide [Lasix] 80 mg PO DAILY 09/06/21 09/06/21 History Insulin Detemir [Levemir Flextouch 48 units SQ HS 09/06/21 09/06/21 History Pen] Insulin Lispro [humaLOG] See Protocol SQ AC-TID 09/06/21 09/06/21 History Iron 27mg 1 tab PO DAILY 09/06/21 09/06/21 History Magnesium Oxide [Mag-Ox] 250 mg PO DAILY 09/06/21 09/06/21 History Zolpidem [Ambien] 5 mg PO HS PRN 09/06/21 09/06/21 History Allergies Allergy/AdvReac Type Severity Reaction Status Date / Time amlodipine Allergy Swelling Verified 09/06/21 14:44 amoxicillin Allergy Anaphylaxis Verified 09/06/21 14:44 cephalexin monohydrate Allergy Rash/Hives Verified 09/06/21 14:44 [From Keflex] clindamycin Allergy Rash/Hives Verified 09/06/21 14:44 Penicillins Allergy Rash/Hives Verified 09/06/21 14:44 Sulfa (Sulfonamide Allergy Anaphylaxis Verified 09/06/21 14:44 Antibiotics) sulfamethoxazole Allergy Anaphylaxis Verified 09/06/21 14:44 [From Bactrim] trimethoprim [From Bactrim] Allergy Anaphylaxis Verified 09/06/21 14:44 carvedilol AdvReac "MAKES ME Verified 09/06/21 14:44 JERILYN" Physical Exam Vitals: Vital Signs Temp Pulse Pulse Resp BP Pulse Ox 09/12/21 13:00 80 110/71 97 09/12/21 11:55 84 09/12/21 11:43 84 09/12/21 09:00 98.0 F 90 124/71 97 09/12/21 08:02 80 09/12/21 07:50 83 96 09/12/21 05:00 98.0 F 60 20 122/76 94 L 09/12/21 02:00 75 20 09/12/21 01:00 75 20 124/80 94 L 09/11/21 21:00 98.3 F 90 20 131/77 95 09/11/21 20:10 68 09/11/21 20:00 65 18 09/11/21 19:59 68 09/11/21 17:00 65 98/67 93 L Intake and Output 09/12/21 09/12/21 09/12/21 06:59 14:59 22:59 Intake Total 240 Output Total 125 100 100 Balance -125 140 -100 Intake: Oral 240 Output: Urine 125 100 100 Other: Voiding Method Toilet # Bowel Movements 1 Weight 85.5 kg Results CBC & Chem 7: 09/13/21 07:13 09/13/21 07:13 Labs: Abnormal Lab Results - Last 24 Hours (Table) 09/11/21 09/11/21 09/12/21 Range/Units 16:34 20:44 06:15 WBC (3.8-10.6) k/uL RDW (11.5-15.5) % Plt Count (150-450) k/uL Neutrophils # (1.3-7.7) k/uL Lymphocytes # (1.0-4.8) k/uL Sodium (137-145) mmol/L Chloride (98-107) mmol/L BUN (9-20) mg/dL Creatinine (0.66-1.25) mg/dL Glucose (74-99) mg/dL POC Glucose (mg/dL) 189 H 230 H 121 H (75-99) mg/dL C-Reactive Protein (<1.0) mg/dL 09/12/21 09/12/21 09/12/21 Range/Units 11:52 12:34 12:34 WBC 17.7 H (3.8-10.6) k/uL RDW 15.9 H (11.5-15.5) % Plt Count 92 L (150-450) k/uL Neutrophils # 16.5 H (1.3-7.7) k/uL Lymphocytes # 0.4 L (1.0-4.8) k/uL Sodium 135 L (137-145) mmol/L Chloride 97 L (98-107) mmol/L BUN 102 H* (9-20) mg/dL Creatinine 3.01 H (0.66-1.25) mg/dL Glucose 141 H (74-99) mg/dL POC Glucose (mg/dL) 138 H (75-99) mg/dL C-Reactive Protein 15.3 H (<1.0) mg/dL Microbiology - Last 24 Hours (Table) 09/07/21 10:15 Anaerobic Culture - Final Paracentesis Fluid 09/07/21 10:15 Gram Stain - Final Paracentesis Fluid Body Fluid Culture - Final
[2021-09-13 08:35] VITALS: BMI 27.9
[2021-09-13] MEDS: AZTREONAM 2 GM in SODIUM CHLORIDE 0.9% 100 ML IVPB SCH ×3 (09:49→23:57)
[2021-09-13] MEDS: ISOSORBIDE MONONITRATE ER 30 MG TAB.ER.24H PO SCH (09:49)
[2021-09-13] MEDS: SPIRONOLACTONE 25 MG TAB PO SCH (09:49)
[2021-09-13] MEDS: METOPROLOL TARTRATE 50 MG TAB PO SCH ×2 (09:49→20:49)
[2021-09-13] MEDS: DILTIAZEM ORAL 30 MG TAB PO SCH ×2 (09:50→20:49)
[2021-09-13] MEDS: FLECAINIDE 50 MG TAB PO SCH ×2 (09:50→20:49)
[2021-09-13] MEDS: allopurinoL 100 MG TAB PO SCH (09:50)
[2021-09-13] MEDS: metroNIDAZOLE 500 MG TAB PO SCH ×3 (09:55→20:50)
--- NOTE | 2021-09-13 10:25 | P.PN ---
Subjective Progress Note Date: 09/13/21 On today's evaluation 09/13/2021, the patient is being seen for a follow-up. The patient is being worked up for metastatic disease. As noted in the earlier CAT scans of the chest and PET scan, the patient has has a high stage neoplasm in the lung with background emphysematous change. He does have a left midlung loculated mass measuring 4.2 x 3 cm in size with an SUV uptake of 6.05. Also has a left hilar and suprahilar metabolic lymphadenopathy that are avid and he has also abnormal 1.3 cm hypermetabolic AP window lymph node with SUV of 4.2. There is also increased uptake in the anterior to the pericardium lymph node measuring 1.1 cm in size. Within the abdomen, there is metabolic focus in the liver consistent with hepatic metastases with an SUV of 7.9. He does have also evidence of suspicious metabolic activity at the level of T12 and scattered uptake throughout the right iliac bone in the right sacral bone. As such, he has had a high stage neoplasm. He did have small bilateral pleural effusions. Also ascites and the fluid cytology came back negative for malignancy. He underwent a liver biopsy on 09/10/2021 and were still awaiting for the results. He is currently quite lethargic and weak. He is covered with broad-spectrum antibiotics including IV Azactam and Flagyl suspecting an underlying colitis based on the CAT scan of the abdomen and pelvis that showed some colitis changes in the right upper quadrant. Prognosis remains extremely poor. Oral intake is quite diminished. He is weak. He is afebrile. The white cell count at 17.6 and hemoglobin of 14. He has also developed an acute kidney injury with a creatinine being up to 3.2 Objective - Vital Signs Vital signs: Vital Signs Temp 98.5 F 09/13/21 04:30 Pulse 95 09/13/21 04:30 Resp 18 09/13/21 04:30 BP 121/66 09/13/21 04:30 Pulse Ox 95 09/13/21 04:30 Intake & Output 09/12/21 09/13/21 09/13/21 18:59 06:59 18:59 Intake Total 358 180 Output Total 200 200 Balance 158 -200 180 Weight 85.9 kg 85.9 kg Intake: Oral 358 180 Output: Urine 200 200 Other: Voiding Method Toilet # Voids 1 - Exam GENERAL EXAM: Alert, pleasant, very weak, fatigued and slightly jaundiced 66-year-old white male, with pulse ox of 97% on 2 L comfortable in no apparent distress. HEAD: Normocephalic/atraumatic. EYES: Normal reaction of pupils, equal size. Conjunctiva pink, sclera white. NOSE: Clear with pink turbinates. THROAT: No erythema or exudates. NECK: No masses, no JVD, no thyroid enlargement, no adenopathy. CHEST: No chest wall deformity. Symmetrical expansion. LUNGS: Equal air entry with diminished breath sounds at the bases, with some mild crackles CVS: Regular rate and rhythm, normal S1 and S2, no gallops, no murmurs, no rubs ABDOMEN: Soft, nontender. No hepatosplenomegaly, normal bowel sounds, no guarding or rigidity. EXTREMITIES: No clubbing, no edema, no cyanosis, 2+ pulses and upper and lower extremities. MUSCULOSKELETAL: Muscle strength and tone normal. SPINE: No scoliosis or deformity SKIN: No rashes CENTRAL NERVOUS SYSTEM: Alert and oriented -3. No focal deficits, tone is normal in all 4 extremities. PSYCHIATRIC: Alert and oriented -3. Appropriate affect. Intact judgment and insight. - Labs CBC & Chem 7: 09/13/21 07:13 09/13/21 07:13 Labs: Abnormal Lab Results - Last 24 Hours (Table) 09/12/21 09/12/21 09/12/21 Range/Units 11:52 12:34 12:34 WBC (3.8-10.6) k/uL RDW (11.5-15.5) % Plt Count (150-450) k/uL Neutrophils # (1.3-7.7) k/uL Lymphocytes # (1.0-4.8) k/uL Sodium 135 L (137-145) mmol/L Chloride 97 L (98-107) mmol/L BUN 102 H* (9-20) mg/dL Creatinine 3.01 H (0.66-1.25) mg/dL Glucose 141 H (74-99) mg/dL POC Glucose (mg/dL) 138 H (75-99) mg/dL C-Reactive Protein 15.3 H (<1.0) mg/dL Procalcitonin 19.70 H (0.02-0.09) ng/mL 09/12/21 09/12/21 09/12/21 Range/Units 12:34 16:59 19:52 WBC 17.7 H (3.8-10.6) k/uL RDW 15.9 H (11.5-15.5) % Plt Count 92 L (150-450) k/uL Neutrophils # 16.5 H (1.3-7.7) k/uL Lymphocytes # 0.4 L (1.0-4.8) k/uL Sodium (137-145) mmol/L Chloride (98-107) mmol/L BUN (9-20) mg/dL Creatinine (0.66-1.25) mg/dL Glucose (74-99) mg/dL POC Glucose (mg/dL) 209 H 277 H (75-99) mg/dL C-Reactive Protein (<1.0) mg/dL Procalcitonin (0.02-0.09) ng/mL 09/13/21 09/13/21 Range/Units 07:13 07:13 WBC 17.6 H (3.8-10.6) k/uL RDW (11.5-15.5) % Plt Count (150-450) k/uL Neutrophils # (1.3-7.7) k/uL Lymphocytes # (1.0-4.8) k/uL Sodium 136 L (137-145) mmol/L Chloride (98-107) mmol/L BUN 106 H* (9-20) mg/dL Creatinine 3.20 H (0.66-1.25) mg/dL Glucose 45 L* (74-99) mg/dL POC Glucose (mg/dL) (75-99) mg/dL C-Reactive Protein (<1.0) mg/dL Procalcitonin (0.02-0.09) ng/mL Assessment and Plan Plan: #1. Suspected metastatic lung cancer with metastasis to the liver, status post CT-guided fine-needle biopsy on 09/10/2021 by interventional radiology, biopsy results still pending at this time. Please refer to the results of the pets CT. The patient has lung masses measuring 4.2 x 3.0 cm in size in the left midlung in addition to lymphadenopathy and skeletal metastases and hepatic metastases. Biopsy of the liver was done. Results are still pending. Ascitic fluid was negative for cytology. #2. Status post large volume paracentesis, with negative cytology #3. Hemoglobin # 4 Atrial fibrillation on Xarelto #5. Coronary artery disease with previous stenting #6. History of chronic right hemidiaphragmatic elevation/processes #7. History of tachybradycardia syndrome status post pacemaker insertion #8. Hypertensive heart disease with LV concentric hypertrophy #9. Diabetes TYPE II diabetic neuropathy #10. Hypertension #12. Hyperlipidemia #13. Osteoarthritis #14. Chronic kidney disease, with a component of acute kidney injury. #15. History of CHF with diastolic dysfunction Plan: Continue current medical management Still awaiting results of his liver biopsy Clinically patient appears weak, fatigued, No acute events overnight Continue nebulized bronchodilators, continue Symbicort Continue antiarrhythmics, Lasix, anticoagulation per cardiology Patient does not think he can tolerate treatment for cancer which is strongly suspected in his case We'll be awaiting the results of the biopsy, if negative from the liver, may need a bronchoscopy with left lung biopsy to establish final diagnosis. Prognosis remains extremely poor.
--- NOTE | 2021-09-13 10:38 | P.PN ---
Subjective Progress Note Date: 09/13/21 Principal diagnosis: ascites, lung and liver masses In f/u today pt in general does not feel well-his CBG was 45 a few hours ago. He is tired, no energy, his abd distension is stable, he denies any worsening SOB. Objective - Vital Signs Vital signs: Vital Signs Temp 98.5 F 09/13/21 04:30 Pulse 95 09/13/21 04:30 Resp 18 09/13/21 04:30 BP 121/66 09/13/21 04:30 Pulse Ox 95 09/13/21 04:30 Intake & Output 09/12/21 09/13/21 09/13/21 18:59 06:59 18:59 Intake Total 358 180 Output Total 200 200 Balance 158 -200 180 Weight 85.9 kg 85.9 kg Intake: Oral 358 180 Output: Urine 200 200 Other: Voiding Method Toilet # Voids 1 - Constitutional General appearance: Present: average body habitus, cooperative, no acute distress - EENT Eyes: Present: anicteric sclerae, EOMI ENT: Present: hearing grossly normal - Respiratory Respiratory: bilateral: CTA, other (decrease inspiratory effort) - Peripheral edema leg Peripheral Edema: bilateral: None - Gastrointestinal General gastrointestinal: Present: distended, soft - Neurologic Neurologic: Present: CNII-XII intact - Musculoskeletal Musculoskeletal: Present: generalized weakness, strength equal bilaterally - Psychiatric Psychiatric: Present: A&O x's 3, appropriate affect, intact judgment & insight - Labs CBC & Chem 7: 09/13/21 07:13 09/13/21 07:13 Labs: Abnormal Lab Results - Last 24 Hours (Table) 09/12/21 09/12/21 09/12/21 Range/Units 11:52 12:34 12:34 WBC (3.8-10.6) k/uL RDW (11.5-15.5) % Plt Count (150-450) k/uL Neutrophils # (1.3-7.7) k/uL Lymphocytes # (1.0-4.8) k/uL Sodium 135 L (137-145) mmol/L Chloride 97 L (98-107) mmol/L BUN 102 H* (9-20) mg/dL Creatinine 3.01 H (0.66-1.25) mg/dL Glucose 141 H (74-99) mg/dL POC Glucose (mg/dL) 138 H (75-99) mg/dL C-Reactive Protein 15.3 H (<1.0) mg/dL Procalcitonin 19.70 H (0.02-0.09) ng/mL 09/12/21 09/12/21 09/12/21 Range/Units 12:34 16:59 19:52 WBC 17.7 H (3.8-10.6) k/uL RDW 15.9 H (11.5-15.5) % Plt Count 92 L (150-450) k/uL Neutrophils # 16.5 H (1.3-7.7) k/uL Lymphocytes # 0.4 L (1.0-4.8) k/uL Sodium (137-145) mmol/L Chloride (98-107) mmol/L BUN (9-20) mg/dL Creatinine (0.66-1.25) mg/dL Glucose (74-99) mg/dL POC Glucose (mg/dL) 209 H 277 H (75-99) mg/dL C-Reactive Protein (<1.0) mg/dL Procalcitonin (0.02-0.09) ng/mL 09/13/21 09/13/21 Range/Units 07:13 07:13 WBC 17.6 H (3.8-10.6) k/uL RDW (11.5-15.5) % Plt Count (150-450) k/uL Neutrophils # (1.3-7.7) k/uL Lymphocytes # (1.0-4.8) k/uL Sodium 136 L (137-145) mmol/L Chloride (98-107) mmol/L BUN 106 H* (9-20) mg/dL Creatinine 3.20 H (0.66-1.25) mg/dL Glucose 45 L* (74-99) mg/dL POC Glucose (mg/dL) (75-99) mg/dL C-Reactive Protein (<1.0) mg/dL Procalcitonin (0.02-0.09) ng/mL Assessment and Plan (1) Liver mass Current Visit: Yes Status: Acute Priority: High Code(s): R16.0 - HEPATOMEGALY, NOT ELSEWHERE CLASSIFIED SNOMED Code(s): 690454000 (2) Ascites Current Visit: Yes Status: Acute Priority: High Code(s): R18.8 - OTHER ASCITES SNOMED Code(s): 150304159 (3) Lung mass Current Visit: Yes Status: Acute Priority: High Code(s): R91.8 - OTHER NONSPECIFIC ABNORMAL FINDING OF LUNG FIELD SNOMED Code(s): 288616755 Plan: Liver findings suspicious for malignancy and cirrhosis. Pending bx results of liver mass, further recommendations will follow. Unable to do MRI 2/[address] with contrast is next best image but, pt has CKD. Will see if his cr improves and discuss case with Nephrology to see if contrast could be given if properly planned out. Hold any head imaging for now. Discussing case with Lab-wanting measurement for ascitic albumin to calculate SAG, pending answer. Attests: I have seen and examined pt, performed H&P, developed impression and plan of care. Discussed with dictator. Agree with documentation, documented as a scribe.
[2021-09-13 11:43] LABS: Glucose,Whole Blood 59 mg/dL (75-99)
[2021-09-13 12:04] LABS: Glucose,Whole Blood 129 mg/dL (75-99)
[2021-09-13] MEDS: FUROSEMIDE 20 MG TAB PO SCH (12:41)
[2021-09-13] MEDS: hydrALAZINE HCL 50 MG TAB PO SCH ×3 (12:41→23:01)
[2021-09-13 14:06] LABS: Polychromasia Present
--- NOTE | 2021-09-13 14:40 | P.CN ---
Psychiatric Consult - . Consult date: 09/13/21 Consult:: 09/13/21 14:39 IDENTIFYING DATA: This patient is a , retired, 66-year-old male with significant history of COPD, on home oxygen, persistent atrial fibrillation on anticoagulation with several to, sick sinus syndrome with pacemaker, CAD with stent placement to circumflex, diabetes mellitus type 2, hypertension, hyperlipidemia, chronic CHF, presented to the emergency Department with chief complaint of abdominal distention. HISTORY OF PRESENT ILLNESS: The patient presented to the hospital on 09/07/2021, with a chief complaint of abdominal distention. The patient's hospital stay has been complicated with liver findings suspicious for malignancy and cirrhosis. The patient had a biopsy of his liver on 09/10/21. Psychiatry has been consulted for evaluation of depression. Present in the patient's room is his Ophelia, his daughter, and 2 granddaughters. The patient is allowing his family to be present during the psychiatric evaluation. Currently, the patient is not endorsing any significant symptoms of depression at this time. His only complaint is his difficulty with sleep which he attributes to constant "poking and prodding" while being in the hospital. He is not reporting any suicidal or homicidal ideation, intention, and/or plan. He denies any prior attempts at suicide. The patient denies any significant symptoms of anhedonia, low motivation, He is not or decrease in hygiene and grooming. He does report an overall decreased appetite. The patient acknowledges his diagnosis and his prognosis. The patient states that she is accepting of this as there is nothing that he can do to control it. He is not reporting any auditory or visual hallucinations. The patient is not endorsing any significant symptoms of bipolar disorder. He reports no periods of excessive energy, grandiosity, or impulsivity. PAST PSYCHIATRIC HISTORY: Patient reports no significant psychiatric history. Patient denies being on any psychiatric medications. Patient denies any previous psychiatric hospitalizations. Patient denies any psychiatric outpatient follow- up. Patient denies any history of suicide attempts in the past. PAST MEDICAL HISTORY: Past Medical History: Atrial Fibrillation, Coronary Artery Disease (CAD), Chest Pain / Angina, Heart Failure, COPD, Diabetes Mellitus, GERD/Reflux, Hyperlipidemia, Hypertension, Liver Disease, Myocardial Infarction (RI), Prostat e Disorder, Renal Disease, Skin Disorder, Vascular Disorder Additional Past Medical History / Comment(s): history ofAfib with RVR, tachybrady syndrome with pacemaker, IDDM type II, neuropathy bilateral feet, stage III chronic kidney disease, chronic CHF, R pleural effusion, liver cirrhosis, BPH, DJD, herniated discs low back, chronic low back pain, varicose veins , anemia with hx of iron infusions., past asbestos exposure, celiac disease, dermatitis herpetiformis. Last Myocardial Infarction Date:: 06/2018 History of Any Multi-Drug Resistant Organisms: None Reported Past Surgical History: Ablation, Cardiac Ablation, Cholecystectomy, Heart Catheterization With Stent, Pacemaker, Tonsillectomy Additional Past Surgical History / Comment(s): PCI with STENTS x 3, bilateral cataracts removed with lens implants, colonoscopy, [employer] pacemaker Past Anesthesia/Blood Transfusion Reactions: No Reported Reaction Date of Last Stent Placement:: 2017 Type of Cardiac Device: Permanent Pacemaker Device Placement Date:: 02/02/19 Past Psychological History: No Psychological Hx Reported Additional Psychological History / Comment(s): Pt resides with his spouse. He is independent. He is retired from [employer] Smoking Status: Former smoker Past Alcohol Use History: None Reported Additional Past Alcohol Use History / Comment(s): Started smoking in 1967, a half pack a day. Quit smoking January 2019. Pt states he drank heavy in the past but since 2008 rarely. Past Drug Use History: None Reported ALLERGIES: As per HPI CHEMICAL DEPENDENCY HISTORY: Patient is a former smoker. He quit smoking in January 2019. The patient has decreased his alcohol use since 2008. No illicit drug history is endorsed. FAMILY PSYCHIATRIC/SUBSTANCE USE HISTORY: No significant familial psychiatric history or history of substance abuse. SOCIAL HISTORY: Patient was born in [place] and raised in [place], [place]. The patient has been to his for 28 years and have 2 children and 2 grandchildren together. He was previously employed by [employer]. He denies any significant legal issues or history. His hobbies and interests include hunting and fishing, crossword puzzles, and gardening. MENTAL STATUS EXAM: General Appearance: Patient appears to be stated age is alert, pleasant, and cooperative. Patient appears to have good hygiene and grooming wearing hospital gown with fair eye contact. Behavior: Patient is calmly lying in bed without any agitated behavior. Eye contact is appropriate. Psychomotor activity is normal. Speech: Patient's speech is fluent and nonpressured. Mood/Affect: Patient reports their mood is "okay", affect is congruent and euthymic. Suicidality/Homicidality: Patient denies any suicidal or homicidal ideation, intention, and/or plan. Perceptions: Patient denies any visual hallucinations and denies any auditory hallucinations Though content/process: There is no evidence of any delusional thought content and thought process is linear and goal-directed. Memory and concentration: AOX3, grossly intact for the purposes of this session. Can spell "WORLD" backwards Judgment and insight: Excellent Vital Signs Temp 97.4 F L 09/13/21 08:00 Pulse 63 09/13/21 08:00 Resp 18 09/13/21 07:55 BP 114/59 09/13/21 08:00 Pulse Ox 95 09/13/21 08:00 Intake & Output 09/12/21 09/13/21 09/13/21 18:59 06:59 18:59 Intake Total 358 180 Output Total 200 200 Balance 158 -200 180 Weight 85.9 kg 85.9 kg Intake: Oral 358 180 Output: Urine 200 200 Other: Voiding Method Toilet Toilet # Voids 1 Laboratory Results - Last 24 Hours 09/12/21 09/12/21 09/12/21 12:34 16:59 19:52 WBC RBC Hgb Hct MCV MCH MCHC RDW Plt Count MPV Neutrophils % Lymphocytes % Monocytes % Eosinophils % Basophils % Neutrophils # Lymphocytes # Monocytes # Eosinophils # Basophils # Manual Slide Review Polychromasia Sodium Potassium Chloride Carbon Dioxide Anion Gap BUN Creatinine Est GFR (CKD-EPI)AfAm Est GFR (CKD-EPI)NonAf Glucose POC Glucose (mg/dL) 209 H 277 H POC 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 [employer] ID Magda Hernández Diaz Ana Calcium Procalcitonin 19.70 H 09/13/21 09/13/21 09/13/21 06:06 07:13 07:13 WBC 17.6 H RBC 4.40 Hgb 14.0 Hct 43.3 MCV 98.5 MCH 31.9 MCHC 32.4 RDW 15.3 Plt Count 92 L MPV 12.6 Neutrophils % 92 Lymphocytes % 3 Monocytes % 4 Eosinophils % 0 Basophils % 0 Neutrophils # 16.2 H Lymphocytes # 0.5 L Monocytes # 0.7 Eosinophils # 0.0 Basophils # 0.0 Manual Slide Review Performed Polychromasia Present Sodium 136 L Potassium 3.6 Chloride 98 Carbon Dioxide 28 Anion Gap 10 BUN 106 H* Creatinine 3.20 H Est GFR (CKD-EPI)AfAm 22 Est GFR (CKD-EPI)NonAf 19 Glucose 45 L* POC Glucose (mg/dL) 80 POC 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 [employer] ID Ana Perales Calcium 8.6 Procalcitonin 09/13/21 09/13/21 09/13/21 08:13 11:41 12:02 WBC RBC Hgb Hct MCV MCH MCHC RDW Plt Count MPV Neutrophils % Lymphocytes % Monocytes % Eosinophils % Basophils % Neutrophils # Lymphocytes # Monocytes # Eosinophils # Basophils # Manual Slide Review Polychromasia Sodium Potassium Chloride Carbon Dioxide Anion Gap BUN Creatinine Est GFR (CKD-EPI)AfAm Est GFR (CKD-EPI)NonAf Glucose POC Glucose (mg/dL) 91 59 L 129 H POC 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 ID Yomi, Brittaney Yomi, Brittaney Yomi, Brittaney Calcium Procalcitonin IMPRESSIONS: Suspected metastatic lung cancer with metastases to the liver Atrial fibrillation on 0 CAD with previous stenting Diabetes type 2 Hypertension Hyperlipidemia Osteoarthritis CKD with TINO CHF PLAN: -At this time patient DOES NOT meet criteria for inpatient psychiatric admission. -Would recommend the following medication changes/additions: No medication recommendations are made at this time. Patient does not wish to start any medications. Furthermore, the patient has numerous medical issues that would complicate the introduction of psychotropic medications including cardiac arrhythmias, TINO, and liver mets. -Supportive psychotherapy was given to the patient at this time. The patient appears to be very mature and understanding of his current condition and prognosis. He has significant support from family. -Psychiatry will sign off at this point, please contact with any questions. 09/13/21 14:40
[2021-09-13 16:44] LABS: Glucose,Whole Blood 207 mg/dL (75-99)
--- NOTE | 2021-09-13 17:35 | PN ---
PROGRESS NOTE DATE OF SERVICE: 09/13/2021 REASON FOR FOLLOWUP: Leukocytosis. INTERVAL HISTORY: Patient is afebrile. The patient is breathing comfortably. The patient denies having any chest pain, shortness of breath. Still complaining of some abdominal distention. No vomiting. Still having diarrhea. No blood or mucus in the stool. PHYSICAL EXAMINATION: Blood pressure 99/60 with a pulse of 73, temperature 97.4. He is 97% on 2 L nasal cannula. General description is an elderly male lying in bed in no distress. Respiratory system unlabored breathing, decreased breath sounds in the bases. No wheeze. Heart S1, S2. Regular rate and rhythm. Abdomen soft, mildly distended. No guarding. No rigidity. LABS: Hemoglobin is 14.3, white count 17.6, creatinine 3.20. Blood culture negative. The fluid culture has been negative. DIAGNOSTIC IMPRESSION AND PLAN: Patient with elevated white count in this patient who did have abdominal ascites. Paracentesis has been negative. Question of colitis. Zosyn has been requested. The patient on Azactam and Flagyl while waiting for the work up to finalize and continue supportive care. MMODL / IJN: [id number] /
--- NOTE | 2021-09-13 18:10 | P.PN ---
Subjective Progress Note Date: 09/13/21 Principal diagnosis: Abdominal distention 66-year-old male with a known history of COPD on home oxygen, recent lung mass on CT chest on follow up with pulmonary, persistent atrial fibrillation on anticoagulation with xarelto, sick sinus syndrome with history of permanent pacemaker placement, coronary artery disease history of stent placement to circumflex, diabetes type 2 insulin-dependent, hypertension, hyperlipidemia, chronic CHF with diastolic dysfunction and previous history of smoking and alcohol use presents to ER with complaints of Abdominal distention. Patient do es have a history of liver cirrhosis due to previous history of alcohol abuse. Patient had previous admissions with acute on chronic CHF with diastolic dysfunction and also history of lung nodules. Patient is supposed to get biopsy of the lung nodule. Patient had previous history of right-sided pleural effusion and thoracentesis. Patient was recently discharged in the hospital on 08/19/2021. Patient had PET scan on 08/20/2021 showed high stage neoplasm with cirrhotic liver-multiple hypermetabolic dialysis could reflect metastatic disease. Abnormal left lung mass with thoracic adenopathy. Chest x-ray showed patchy bilateral infiltrate correlate for multifocal pneumonia. Neoplasm not excluded. CT of the abdomen pelvis showed ascites, small bilateral pleural effusions, multiple nodules within the visualized lung bases. Clinical consideration for colitis in the right upper quadrant is recommended. Laboratory data showed WBC 13.6 hemoglobin 12.6 and platelets 152 Sodium 130 potassium 3.9 chloride 93 BUN 64 and creatinine 1.9 Blood sugar is 314 Calcium 8.0 09/11/2021 Patient is seen and evaluated in follow-up on the selective care unit. He is currently resting comfortably in bed. No acute distress. He did undergo a liver biopsy by interventional radiology yesterday; continues to complain of discomfort at biopsy site. Pathology pending. he is currently maintaining O2 saturation in the 90s on room air. White count 20.0. Hemoglobin 14.2. Sodium 134. Potassium 4.1. Creatinine 3.08. Glucose 220. AST 393. ALT 426. He is continued on DuoNeb inhalations, Symbicort, oral diuretics. 09/12/2021 Patient is seen and evaluated in room at bedside and discussed with nursing staff in great detail; according to RN, patient has been quite weak and depressed and wanting to stay in chair; I did have a long discussion with patience wong regarding further testing and goals of care; patient does state that he feels depressed and hopeless due to recent diagnosis; psych consultation was advised and patient is agreeable to try Patient has undergone liver biopsy and results are pending; liver enzymes are continuing to trend up; hepatitis panel is nonreactive; WBC is trending up also; ascites fluid culture was unremarkable; ID is consulted and recommending to obtain stool for C. diff and culture; patient has been empirically started on antibiotics in form of Azactam and Flagyl; we will continue to monitor and further recommendations forthcoming 09/13/2021 Patient is seen and evaluated resting comfortably in bed; is at bedside and has numerous questions which were answered to her satisfaction Psych evaluation is discussed with and she is agreeable Patient remains quite depressed and has been evaluated by psychiatry but patient refuses any; medications at this time supportive psychotherapy was given We await results for liver biopsy for any further evaluation and recommendations Objective - Vital Signs Vital signs: Vital Signs Temp 97.4 F L 09/13/21 08:00 Pulse 63 09/13/21 08:00 Resp 18 09/13/21 07:55 BP 114/59 09/13/21 08:00 Pulse Ox 95 09/13/21 08:00 Intake & Output 09/12/21 09/13/21 09/13/21 18:59 06:59 18:59 Intake Total 358 180 Output Total 200 200 Balance 158 -200 180 Weight 85.9 kg 85.9 kg Intake: Oral 358 180 Output: Urine 200 200 Other: Voiding Method Toilet Toilet # Voids 1 - Exam PHYSICAL EXAMINATION: GENERAL: The patient is alert and oriented x3, not in any acute distress. Well developed, well nourished. HEENT: Pupils are round and equally reacting to light. EOMI. No scleral icterus. No conjunctival pallor. Normocephalic, atraumatic. No pharyngeal erythema. No thyromegaly. CARDIOVASCULAR: S1 and S2 present. No murmurs, rubs, or gallops. PULMONARY: Chest is clear to auscultation, no wheezing or crackles. ABDOMEN: Soft, nontender, nondistended, normoactive bowel sounds. No palpable organomegaly. MUSCULOSKELETAL: No joint swelling or deformity. EXTREMITIES: No cyanosis, clubbing, or pedal edema. NEUROLOGICAL: Gross neurological examination did not reveal any focal deficits. SKIN: No rashes. - Labs CBC & Chem 7: 10/18/21 07:13 09/13/21 07:13 Labs: Abnormal Lab Results - Last 24 Hours (Table) 09/12/21 09/12/21 09/12/21 Range/Units 12:34 12:34 12:34 WBC (3.8-10.6) k/uL Plt Count 92 L (150-450) k/uL Neutrophils # 16.5 H (1.3-7.7) k/uL Lymphocytes # 0.4 L (1.0-4.8) k/uL Sodium 135 L (137-145) mmol/L Chloride 97 L (98-107) mmol/L BUN 102 H* (9-20) mg/dL Creatinine 3.01 H (0.66-1.25) mg/dL Glucose 141 H (74-99) mg/dL POC Glucose (mg/dL) (75-99) mg/dL C-Reactive Protein 15.3 H (<1.0) mg/dL Procalcitonin 19.70 H (0.02-0.09) ng/mL 09/12/21 09/12/21 09/13/21 Range/Units 16:59 19:52 07:13 WBC 17.6 H (3.8-10.6) k/uL Plt Count (150-450) k/uL Neutrophils # (1.3-7.7) k/uL Lymphocytes # (1.0-4.8) k/uL Sodium (137-145) mmol/L Chloride (98-107) mmol/L BUN (9-20) mg/dL Creatinine (0.66-1.25) mg/dL Glucose (74-99) mg/dL POC Glucose (mg/dL) 209 H 277 H (75-99) mg/dL C-Reactive Protein (<1.0) mg/dL Procalcitonin (0.02-0.09) ng/mL 09/13/21 09/13/21 09/13/21 Range/Units 07:13 11:41 12:02 WBC (3.8-10.6) k/uL Plt Count (150-450) k/uL Neutrophils # (1.3-7.7) k/uL Lymphocytes # (1.0-4.8) k/uL Sodium 136 L (137-145) mmol/L Chloride (98-107) mmol/L BUN 106 H* (9-20) mg/dL Creatinine 3.20 H (0.66-1.25) mg/dL Glucose 45 L* (74-99) mg/dL POC Glucose (mg/dL) 59 L 129 H (75-99) mg/dL C-Reactive Protein (<1.0) mg/dL Procalcitonin (0.02-0.09) ng/mL Assessment and Plan Assessment: Abdominal distention due to ascites status post paracentesis with 2.2 L fluid removal Alcoholic liver cirrhosis suspicious multiple liver metastatic lesions as per Recent history of PET scan on 08/20/21 . chronic CHF with diastolic dysfunction Recently diagnosed lung nodules with abdominal CT chest.. Supposed to follow with pulmonary clinic. s/p outpatient PET scan on 08/20/2021 Hyperglycemia with uncontrolled diabetes type 2 Elevated troponin level unlikely ACS. Hyponatremia likely hypervolemic. Possible SIADH cannot be excluded. Bilateral small pleural effusions with recent history of right thoracentesis Chronic postnasal drip Persistent atrial fibrillation on anticoagulation with xarelto. Was on hold for persistent nosebleeds. Cardiology recommends to start back on xarelto. Sick sinus syndrome with history of permanent pacemaker placement coronary artery disease history of stent placement to circumflex Hypertension Hyperlipidemia Chronic hypoxic respiratory failure secondary to COPD Previous history of smoking History of liver cirrhosis DVT prophylaxis Full code Plan: Patient is status post paracentesis with 2.2 L fluid removal. Cell count and differential showed no evidence of SBP. Follow-up fluid culture and cytology report. Replace electrolytes and patient will be started back on Lasix and spironolactone. Monitor renal function. Continue with home medications and follow-up closely. Pulmonary and cardiology was consulted. Prognosis guarded at this time.
--- NOTE | 2021-09-13 18:25 | PN ---
PROGRESS NOTE Patient is seen for followup for acute kidney injury. His renal function has been slowly deteriorating over the past few days. Diuretics were decreased. The patient's blood pressure has been on the lower side. Antihypertensive medications were adjusted as well. He continues to have fair urine output. Patient has been voiding on his own. Currently awaiting pathology results of liver biopsy for liver mass. PHYSICAL EXAMINATION: On examination today, blood pressure this morning was 114/59, heart rate 63 per minute, he is afebrile. Examination of the heart S1, S2. Examination of the lungs, decreased breath sounds at the bases. Abdomen is soft, nontender. Examination of lower extremities shows edema 2+ bilaterally. Chronic skin changes noted. CAR LUBRICATOR exam grossly intact. LABS: Show sodium of 136, potassium 3.6 BUN 106, serum creatinine 3.2. ASSESSMENT: 1. Acute kidney injury, currently mostly acute tubular necrosis. Serum creatinine has been worsening over the past few days mostly secondary to recent diuresis. Lasix dose has been decreased. Blood pressure is also on the lower side. Patient is maintained on Cardizem and since his systolic blood pressure was in the 90s this morning with heart rate staying in the 70s I will decrease the Cardizem. 2. Chronic kidney disease stage 4, previous creatinine has been 1.8-2.4 mg/dL. Etiology nephrosclerosis cardiorenal. 3. Liver nodule and liver mass status post liver biopsy, most likely metastatic. 4. Acute on chronic diastolic congestive heart failure. 5. Ascites status post paracentesis. 6. Volume overload, improved. PLAN: Decrease Lasix further and decrease Cardizem. Continue with the Aldactone for now. Avoid any nephrotoxic agents. Check post-void residual. Rule out urine retention. MMODL / IJN: [id number] /
[2021-09-13 19:53] LABS: Glucose,Whole Blood 317 mg/dL (75-99)
[2021-09-13] MEDS: MIRTAZAPINE 15 MG TAB PO SCH (20:49)
[2021-09-13] MEDS: INSULIN DETEMIR (LEVEMIR) 100 UNIT/ML SYR SQ SCH (20:50)
[2021-09-13] MEDS: MONTELUKAST 10 MG TAB PO SCH (20:50)
[2021-09-13] MEDS: ZOLPIDEM 5 MG TAB PO PRN (21:29)
[2021-09-14 06:15] LABS: Glucose,Whole Blood 51 mg/dL (75-99)
[2021-09-14 06:29] LABS: Glucose,Whole Blood 58 mg/dL (75-99)
[2021-09-14 06:47] LABS: Glucose,Whole Blood 84 mg/dL (75-99)
[2021-09-14] MEDS: INSULIN ASPART (NovoLOG) 100 UNIT/ML VIAL SQ SCH ×4 (07:01→20:35)
[2021-09-14] MEDS: PANTOPRAZOLE 40 MG TABLET PO SCH (07:06)
[2021-09-14] MEDS: SYMBICORT 160-4.5 MCG INHALER INHALATION SCH ×2 (08:26→20:31)
[2021-09-14] MEDS: IPRATROPIUM-ALBUTEROL 3 ML NEB INHALATION SCH ×4 (08:27→20:31)
[2021-09-14] MEDS: AZTREONAM 2 GM in SODIUM CHLORIDE 0.9% 100 ML IVPB SCH ×3 (08:36→23:35)
[2021-09-14] MEDS: allopurinoL 100 MG TAB PO SCH (08:37)
[2021-09-14] MEDS: DILTIAZEM ORAL 30 MG TAB PO SCH ×2 (08:37→20:35)
[2021-09-14] MEDS: FLECAINIDE 50 MG TAB PO SCH ×2 (08:38→20:35)
[2021-09-14] MEDS: METOPROLOL TARTRATE 50 MG TAB PO SCH ×2 (08:39→20:36)
[2021-09-14] MEDS: metroNIDAZOLE 500 MG TAB PO SCH ×3 (08:39→20:36)
[2021-09-14] MEDS: SPIRONOLACTONE 25 MG TAB PO SCH (08:39)
[2021-09-14] MEDS: ISOSORBIDE MONONITRATE ER 30 MG TAB.ER.24H PO SCH (08:39)
[2021-09-14] MEDS ORDERED: FUROSEMIDE 40 MG TAB PO SCH (09:00)
[2021-09-14 09:35] LABS: Calcium 8.2 mg/dL (8.4-10.2); Magnesium 2.8 mg/dL (1.6-2.3); Potassium 3.4 mmol/L (3.5-5.1)
[2021-09-14] MEDS: hydrALAZINE HCL 50 MG TAB PO SCH ×3 (10:44→20:36)
[2021-09-14] MEDS: SODIUM CHLORIDE 0.9% 1,000 ML IV SCH ×2 (11:31→23:35)
[2021-09-14 11:53] LABS: Glucose,Whole Blood 189 mg/dL (75-99)
--- NOTE | 2021-09-14 12:06 | P.PN ---
Subjective Progress Note Date: 09/14/21 Principal diagnosis: Suspected metastatic lung cancer status post liver biopsy 66-year-old male, who presents to the emergency department, on September 06, complaining of shortness of breath, and increasing abdominal distention. The patient has a history of a lung mass, with multiple lesions in the liver, consistent with metastatic disease. Unfortunately, he has not had his CT-guided fine-needle biopsy of his liver lesions, which hopefully will give us a diagnosis and a stage. The patient does have a history of CHF, and COPD. He sees Dr. Valentine, as a primary. Recently, the patient's health has been declining, and is been in and out of the hospital multiple times recently. He denies any fever or chills. He denies any chest pain. He does admit to some recent diarrhea. He apparently is in palliative care. A paracentesis abdominis was done, and 2 L of fluid was removed. He is currently on 2 L nasal cannula. He's not receiving any IV fluids. Cytology from the ascitic fluid is pending. In addition, the patient has a history of atrial fibrillation, coronary artery disease, heart failure, COPD, diabetes mellitus, GERD, hyperlipidemia, hypertension, myocardial infarction, status post pacemaker insertion, diabetic neuropathy, chronic kidney disease, liver cirrhosis, and celiac disease, as well as dermatitis herpetiformis. White count of 17.5, hemoglobin 12.7, hematocrit 39.8, and platelet count 129,000. Sodium 136, potassium 3.9, chlorides 97, CO2 30, anion gap 9, BUN 72, creatinine 2.24. AST is 123, ALT is 185. Albumin is 3.1. Chest x-ray shows bilateral patchy infiltrates, likely related to underlying malignancy rather than pneumonia. CT of the abdomen and pelvis show evidence of ascites, small bilateral pleural effusions, and multiple nodules within the lung tobias. Progress note dated 09/09/2021. 66-year-old male, who presented with shortness of breath, and increasing abdominal distention. The patient had a paracentesis abdominis, performed by interventional radiology. 2.2 L of fluid was removed. The fluid cytology was negative. The patient has a lesion in his left lung, and multiple lesions in his liver on PET scan. We are thinking that his primary diagnosis is lung cancer with metastasis. He will still likely need a CT-guided fine-needle aspiration of a liver lesion, which would give us both a diagnosis and a staged. The patient's overall health in the last 6-8 weeks, has significantly declined, and he has had multiple admissions in the hospital. Currently, he is on room air. White count 22.1, hemoglobin 14.4, hematocrit 42.7, and platelet count 165,000. Sodium 137, potassium 3.4, chlorides 97, CO2 31, anion gap 9, BUN 72, and creatinine 2.35. the patient is seen today 09/11/2021 in follow-up on the selective care unit. He is currently resting comfortably in bed. No acute distress. He did undergo a liver biopsy by interventional radiology yesterday. Pathology pending. he is currently maintaining O2 saturation in the 90s on room air. He mechanically stable. Afebrile. White count 20.0. Hemoglobin 14.2. Sodium 134. Potassium 4.1. Creatinine 3.08. Glucose 220. AST 393. ALT 426. He is continued on DuoNeb inhalations, Symbicort, oral diuretics. On 09/12/2021 patient seen in follow-up on selective care unit, he is awake and alert, he is oriented 3, he appears weak, fatigued, a bit more jaundiced. He is status post fine-needle aspirate biopsy of the liver, and the pathology repo rt is still pending. Patient had a ultrasound-guided paracentesis on 09/07/2021 and 2.2 L of ascitic fluid was removed, with nondiagnostic cytology. Denies any respiratory difficulty, he is on 2 L of oxygen pulse ox 97%, he is afebrile, hemodynamically stable. Today's labs have been reviewed, his white blood cell, 17.7, hemoglobin is 14.6, sodium is 135, potassium is 3.8, chloride is 1, B1 is 102, creatinine is 3.01. His liver enzymes were trending up on yesterday's labs, and his AST was up to 393, ALT is 426, his alkaline phosphatase is 368. His hepatitis panel was nonreactive. Ascites fluid cultures were negative. No cough, no chest discomfort, patient remains on DuoNeb, Symbicort, he is on oral Lasix 60 mg twice daily. On 09/14/2021 patient seen in follow-up on selective care unit, patient's liver biopsy results are still pending. No acute events overnight, patient remains on 2 L of oxygen, he is mildly short of breath with conversation, and exertion, however this has remained stable. he denies any worsening abdominal distention although his abdomen is somewhat distended. 1+ lower extremity edema, nephrology is following, Lasix is currently on hold, patient continues on Aldactone. Today's labs have been reviewed, his renal function is about the same, creatinine is slightly improved, at 3.09 down from 3.201 yesterday's labs, B1 is 111, sodium is 136, potassium is 3.4, chloride is 97, his pro calcitonin level is elevated at 19.7, she is on aztreonam for antibiotic coverage. His ascites fluid ulcer was negative, blood and stool cultures have also been sent, so far showing no growth. Denies any chest discomfort, no cough, or significant phlegm production, he seems a little bit more upbeat today, answering questions, he was updated on the status of his biopsy. He is weak, but she was able to get up in the shower today, feeling better, tolerating oral intake. Objective - Vital Signs Vital signs: Vital Signs Temp 98.0 F 09/14/21 08:00 Pulse 95 09/14/21 11:57 Resp 18 09/14/21 11:57 BP 131/66 09/14/21 08:00 Pulse Ox 96 09/14/21 08:00 Intake & Output 09/13/21 09/14/21 09/14/21 18:59 06:59 18:59 Intake Total 520 Output Total 587 Balance 520 -587 Weight 85.9 kg 85.6 kg Intake: Intake, IV Titration 100 Amount Aztreonam 2 gm In Sodium 100 Chloride 0.9% 100 ml @ 33 .3 mls/hr IVPB Q8HR PENDING SALE TO [facility] Rx#:[id number] Oral 420 Output: Urine 225 Post Void Residual 362 Other: Voiding Method Toilet Bedside Commode Bedside Commode # Voids 1 # Bowel Movements 1 - Exam GENERAL EXAM: Alert, pleasant, very weak, fatigued and slightly jaundiced 66-year-old white male, with pulse ox of 97% on 2 L comfortable in no apparent distress. HEAD: Normocephalic/atraumatic. EYES: Normal reaction of pupils, equal size. Conjunctiva pink, sclera white. NOSE: Clear with pink turbinates. THROAT: No erythema or exudates. NECK: No masses, no JVD, no thyroid enlargement, no adenopathy. CHEST: No chest wall deformity. Symmetrical expansion. LUNGS: Equal air entry with diminished breath sounds at the bases, with some mild crackles CVS: Regular rate and rhythm, normal S1 and S2, no gallops, no murmurs, no rubs ABDOMEN: Soft, nontender. No hepatosplenomegaly, normal bowel sounds, no guarding or rigidity. EXTREMITIES: No clubbing, plus lower extremity edema, no cyanosis, 2+ pulses and upper and lower extremities. MUSCULOSKELETAL: Muscle strength and tone normal. SPINE: No scoliosis or deformity SKIN: No rashes CENTRAL NERVOUS SYSTEM: Alert and oriented -3. No focal deficits, tone is normal in all 4 extremities. PSYCHIATRIC: Alert and oriented -3. Appropriate affect. Intact judgment and insight. - Labs CBC & Chem 7: 09/13/21 07:13 09/14/21 08:41 Labs: Abnormal Lab Results - Last 24 Hours (Table) 09/13/21 09/13/21 09/13/21 Range/Units 07:13 12:02 16:42 Plt Count 92 L (150-450) k/uL Neutrophils # 16.2 H (1.3-7.7) k/uL Lymphocytes # 0.5 L (1.0-4.8) k/uL Sodium (137-145) mmol/L Potassium (3.5-5.1) mmol/L Chloride (98-107) mmol/L BUN (9-20) mg/dL Creatinine (0.66-1.25) mg/dL Glucose (74-99) mg/dL POC Glucose (mg/dL) 129 H 207 H (75-99) mg/dL Calcium (8.4-10.2) mg/dL Magnesium (1.6-2.3) mg/dL 09/13/21 09/14/21 09/14/21 Range/Units 19:51 06:11 06:27 Plt Count (150-450) k/uL Neutrophils # (1.3-7.7) k/uL Lymphocytes # (1.0-4.8) k/uL Sodium (137-145) mmol/L Potassium (3.5-5.1) mmol/L Chloride (98-107) mmol/L BUN (9-20) mg/dL Creatinine (0.66-1.25) mg/dL Glucose (74-99) mg/dL POC Glucose (mg/dL) 317 H 51 L 58 L (75-99) mg/dL Calcium (8.4-10.2) mg/dL Magnesium (1.6-2.3) mg/dL 09/14/21 09/14/21 Range/Units 08:41 11:51 Plt Count (150-450) k/uL Neutrophils # (1.3-7.7) k/uL Lymphocytes # (1.0-4.8) k/uL Sodium 136 L (137-145) mmol/L Potassium 3.4 L (3.5-5.1) mmol/L Chloride 97 L (98-107) mmol/L BUN 111 H* (9-20) mg/dL Creatinine 3.09 H (0.66-1.25) mg/dL Glucose 170 H (74-99) mg/dL POC Glucose (mg/dL) 189 H (75-99) mg/dL Calcium 8.2 L (8.4-10.2) mg/dL Magnesium 2.8 H (1.6-2.3) mg/dL Microbiology - Last 24 Hours (Table) 09/13/21 14:41 Stool Culture - Preliminary Stool 09/12/21 12:34 Blood Culture - Preliminary Blood No Growth after 24 hours Assessment and Plan Plan: Assessment: #1. Suspected metastatic lung cancer with metastasis to the liver, status post CT-guided fine-needle biopsy on 09/10/2021 by interventional radiology, biopsy results still pending at this time #2. Status post large volume paracentesis, with negative cytology #3. History of underlying COPD, which is currently inactive and stable #4. History of paroxysmal atrial fibrillation on Xarelto #5. Coronary artery disease with previous stenting #6. History of chronic right hemidiaphragmatic elevation/processes #7. History of tachybradycardia syndrome status post pacemaker insertion #8. Hypertensive heart disease with LV concentric hypertrophy #9. Diabetes TYPE II diabetic neuropathy #10. Hypertension #12. Hyperlipidemia #13. Osteoarthritis #14. Chronic kidney disease #15. History of CHF with diastolic dysfunction Plan: Continue current medical management Still awaiting results of his liver biopsy diuretics for nephrology, Lasix is currently on hold, patient continues Aldactone No worsening dyspnea or hypoxia, Continue current antibiotics, patient is on Azactam, so far his ascites, blood cultures and stool culture are all negative No acute events overnight Continue nebulized bronchodilators, continue Symbicort Will continue to follow until the results of the liver biopsy results If biopsy shows metastatic cancer, we will re-address his code status I performed a history & physical examination of the patient and discussed their management with my nurse practitioner, Jojo Langford. I reviewed the nurse practitioner's note and agree with the documented findings and plan of care. Lung sounds are positive for diffuse wheezes throughout the lung tobias. The findings and the impression was discussed with the patient. I attest to the documentation by the nurse practitioner. Time with Patient: Less than 30
--- NOTE | 2021-09-14 12:16 | P.PN ---
Subjective Progress Note Date: 09/12/21 Principal diagnosis: Abdominal distention 66-year-old male with a known history of COPD on home oxygen, recent lung mass on CT chest on follow up with pulmonary, persistent atrial fibrillation on anticoagulation with xarelto, sick sinus syndrome with history of permanent pacemaker placement, coronary artery disease history of stent placement to circumflex, diabetes type 2 insulin-dependent, hypertension, hyperlipidemia, chronic CHF with diastolic dysfunction and previous history of smoking and alcohol use presents to ER with complaints of Abdominal distention. Patient do es have a history of liver cirrhosis due to previous history of alcohol abuse. Patient had previous admissions with acute on chronic CHF with diastolic dysfunction and also history of lung nodules. Patient is supposed to get biopsy of the lung nodule. Patient had previous history of right-sided pleural effusion and thoracentesis. Patient was recently discharged in the hospital on 08/19/2021. Patient had PET scan on 08/20/2021 showed high stage neoplasm with cirrhotic liver-multiple hypermetabolic dialysis could reflect metastatic disease. Abnormal left lung mass with thoracic adenopathy. Chest x-ray showed patchy bilateral infiltrate correlate for multifocal pneumonia. Neoplasm not excluded. CT of the abdomen pelvis showed ascites, small bilateral pleural effusions, multiple nodules within the visualized lung bases. Clinical consideration for colitis in the right upper quadrant is recommended. Laboratory data showed WBC 13.6 hemoglobin 12.6 and platelets 152 Sodium 130 potassium 3.9 chloride 93 BUN 64 and creatinine 1.9 Blood sugar is 314 Calcium 8.0 09/11/2021 Patient is seen and evaluated in follow-up on the selective care unit. He is currently resting comfortably in bed. No acute distress. He did undergo a liver biopsy by interventional radiology yesterday; continues to complain of discomfort at biopsy site. Pathology pending. he is currently maintaining O2 saturation in the 90s on room air. White count 20.0. Hemoglobin 14.2. Sodium 134. Potassium 4.1. Creatinine 3.08. Glucose 220. AST 393. ALT 426. He is continued on DuoNeb inhalations, Symbicort, oral diuretics. 09/12/2021 Patient is seen and evaluated in room at bedside and discussed with nursing staff in great detail; according to RN, patient has been quite weak and depressed and wanting to stay in chair; I did have a long discussion with patience wong regarding further testing and goals of care; patient does state that he feels depressed and hopeless due to recent diagnosis; psych consultation was advised and patient is agreeable to try Patient has undergone liver biopsy and results are pending; liver enzymes are continuing to trend up; hepatitis panel is nonreactive; WBC is trending up also; ascites fluid culture was unremarkable; ID is consulted and recommending to obtain stool for C. diff and culture; patient has been empirically started on antibiotics in form of Azactam and Flagyl; we will continue to monitor and further recommendations forthcoming Objective - Vital Signs Vital signs: Vital Signs Temp 98.0 F 09/12/21 09:00 Pulse 84 09/12/21 11:43 Resp 20 09/12/21 05:00 BP 124/71 09/12/21 09:00 Pulse Ox 97 09/12/21 09:00 Intake & Output 09/11/21 09/12/21 09/12/21 18:59 06:59 18:59 Intake Total 240 480 240 Output Total 375 100 Balance 240 105 140 Weight 85.5 kg Intake: Oral 240 480 240 Output: Urine 375 100 Other: Voiding Method Toilet Toilet # Voids 2 2 # Bowel Movements 1 - Exam PHYSICAL EXAMINATION: GENERAL: The patient is alert and oriented x3, not in any acute distress. Well developed, well nourished. HEENT: Pupils are round and equally reacting to light. EOMI. No scleral icterus. No conjunctival pallor. Normocephalic, atraumatic. No pharyngeal erythema. No thyromegaly. CARDIOVASCULAR: S1 and S2 present. No murmurs, rubs, or gallops. PULMONARY: Chest is clear to auscultation, no wheezing or crackles. ABDOMEN: Soft, nontender, nondistended, normoactive bowel sounds. No palpable organomegaly. MUSCULOSKELETAL: No joint swelling or deformity. EXTREMITIES: No cyanosis, clubbing, or pedal edema. NEUROLOGICAL: Gross neurological examination did not reveal any focal deficits. SKIN: No rashes. - Labs CBC & Chem 7: 09/13/21 07:13 09/13/21 07:13 Labs: Abnormal Lab Results - Last 24 Hours (Table) 09/11/21 09/11/21 09/11/21 Range/Units 12:05 16:34 20:44 POC Glucose (mg/dL) 199 H 189 H 230 H (75-99) mg/dL 09/12/21 Range/Units 06:15 POC Glucose (mg/dL) 121 H (75-99) mg/dL Microbiology - Last 24 Hours (Table) 09/07/21 10:15 Anaerobic Culture - Final Paracentesis Fluid 09/07/21 10:15 Gram Stain - Final Paracentesis Fluid Body Fluid Culture - Final Assessment and Plan Assessment: Abdominal distention due to ascites status post paracentesis with 2.2 L fluid removal Alcoholic liver cirrhosis suspicious multiple liver metastatic lesions as per Recent history of PET scan on 08/20/21 . chronic CHF with diastolic dysfunction Recently diagnosed lung nodules with abdominal CT chest.. Supposed to follow with pulmonary clinic. s/p outpatient PET scan on 08/20/2021 Hyperglycemia with uncontrolled diabetes type 2 Elevated troponin level unlikely ACS. Hyponatremia likely hypervolemic. Possible SIADH cannot be excluded. Bilateral small pleural effusions with recent history of right thoracentesis Chronic postnasal drip Persistent atrial fibrillation on anticoagulation with xarelto. Was on hold for persistent nosebleeds. Cardiology recommends to start back on xarelto. Sick sinus syndrome with history of permanent pacemaker placement coronary artery disease history of stent placement to circumflex Hypertension Hyperlipidemia Chronic hypoxic respiratory failure secondary to COPD Previous history of smoking History of liver cirrhosis DVT prophylaxis Full code Plan: Patient is status post paracentesis with 2.2 L fluid removal. Cell count and differential showed no evidence of SBP. Follow-up fluid culture and cytology report. Replace electrolytes and patient will be started back on Lasix and spironolactone. Monitor renal function. Continue with home medications and follow-up closely. Pulmonary and cardiology was consulted. Prognosis guarded at this time.
--- NOTE | 2021-09-14 12:53 | PN ---
PROGRESS NOTE DATE OF SERVICE: 09/14/2021. REASON FOR FOLLOWUP: Leukocytosis. INTERVAL HISTORY: Patient is afebrile. The patient is feeling slightly better today. He is breathing comfortably. Denies having any chest pain or cough. No worsening abdominal pain. Diarrhea has slowed down. PHYSICAL EXAMINATION: Blood pressure 124/64, pulse of 70, temperature 98.1. He is 96% on 2 L nasal cannula. General description is an elderly male up in the chair in no distress. Respiratory system: Unlabored breathing, decreased intensity of breath sounds in the base. No wheeze. Heart S1, S2. Regular rate and rhythm. Abdomen soft, no tenderness. Slight distention. No guarding. No rigidity. LAB: Stool culture is currently pending. Blood culture has been negative. CBC was not done today. DIAGNOSTIC IMPRESSION AND PLAN: Patient with leukocytosis, possible abdominal source. MULTIPLE ANTIBIOTIC ALLERGIES. Patient is covered with Azactam and Flagyl to continue while monitoring clinical course closely. Continue supportive care. MMODL / IJN: [id number] /
[2021-09-14 14:47] LABS: Appearance,Urine Clear (Clear); Bilirubin,Urine 1+ (Negative); Blood,Urine Negative (Negative); Color,Urine Dark Yellow; Glucose,Urine (UA) Negative (Negative); Ketones,Urine Negative (Negative); Leukocyte Esterase,Urine Negative (Negative); Nitrite,Urine Negative (Negative); Protein,Urine Trace (Negative); Specific Gravity,Urine 1.014 (1.001-1.035); Urobilinogen,Urine <2.0 mg/dL (<2.0)
--- NOTE | 2021-09-14 15:27 | PN ---
PROGRESS NOTE Patient is seen for followup for acute kidney injury on top of chronic kidney disease. The patient's renal function has worsened over the last few days with serum creatinine peaking at about 3.2 yesterday. Today it is down to 3.0. Diuretics have been decreased. Patient's baseline creatinine has been about 1.6-1.9 mg/dL. On examination today, patient is lying in bed, he is comfortable, he is sleeping. Patient's is present at bedside. He has been voiding. PHYSICAL EXAMINATION: Blood pressure was 131/66, heart rate 95 per minute. He is afebrile. Examination of the heart S1, S2. Examination of the lungs, bilateral breath sounds are heard. Abdomen is soft, nontender. Examination of lower extremities shows trace edema bilaterally. INDOOR LANDSCAPER/GARDENER exam grossly intact. LAB: Show sodium 136, potassium 3.4, chloride 97, CO2 is 26, BUN 111, serum creatinine 3.09. ASSESSMENT: 1. Acute kidney injury, mostly prerenal. I will hold the Lasix for now and add IV fluids at 50 mL an hour. Repeat labs in a.m. Patient is not on any nephrotoxic medications. He is voiding well and his postvoid residual was not elevated and blood pressure is not low. I will add parameters to the hydralazine. This was decreased recently. 2. Liver mass and lung nodules, awaiting pathology status post biopsy of the liver mass. 3. Chronic kidney disease stage 4. Baseline creatinine 1.8-2.4 secondary to nephrosclerosis and cardiorenal. 4. Acute on chronic diastolic congestive heart failure. 5. Ascites status post paracentesis. 6. Volume overload, now improved. PLAN: Add IV fluids at 50 mL an hour. Hold Lasix for now. Continue with Aldactone. Repeat labs in a.m. I will add parameters on the hydralazine to hold for systolic blood pressure of less than 120. MMODL / IJN: [id number] /
[2021-09-14] MEDS: TAMSULOSIN 0.4 MG CAP.ER.24H PO SCH (15:34)
[2021-09-14 16:51] LABS: Glucose,Whole Blood 388 mg/dL (75-99)
[2021-09-14 20:11] LABS: Glucose,Whole Blood 394 mg/dL (75-99)
[2021-09-14] MEDS: INSULIN DETEMIR (LEVEMIR) 100 UNIT/ML SYR SQ SCH (20:27)
[2021-09-14] MEDS: ZOLPIDEM 5 MG TAB PO PRN (20:35)
[2021-09-14] MEDS: MONTELUKAST 10 MG TAB PO SCH (20:35)
[2021-09-14] MEDS: MIRTAZAPINE 15 MG TAB PO SCH (20:36)
[2021-09-15 06:33] LABS: Glucose,Whole Blood 361 mg/dL (75-99)
[2021-09-15] MEDS: INSULIN ASPART (NovoLOG) 100 UNIT/ML VIAL SQ SCH ×4 (06:35→20:41)
[2021-09-15] MEDS: PANTOPRAZOLE 40 MG TABLET PO SCH (06:36)
[2021-09-15] MEDS: METOPROLOL TARTRATE 50 MG TAB PO SCH ×2 (08:08→20:41)
[2021-09-15] MEDS: metroNIDAZOLE 500 MG TAB PO SCH ×3 (08:08→20:41)
[2021-09-15] MEDS: hydrALAZINE HCL 50 MG TAB PO SCH ×3 (08:08→20:41)
[2021-09-15] MEDS: allopurinoL 100 MG TAB PO SCH (08:08)
[2021-09-15] MEDS: ISOSORBIDE MONONITRATE ER 30 MG TAB.ER.24H PO SCH (08:08)
[2021-09-15] MEDS: SPIRONOLACTONE 25 MG TAB PO SCH (08:08)
[2021-09-15] MEDS: DILTIAZEM ORAL 30 MG TAB PO SCH ×2 (08:09→20:41)
[2021-09-15] MEDS: FLECAINIDE 50 MG TAB PO SCH ×2 (08:09→20:41)
[2021-09-15] MEDS: AZTREONAM 2 GM in SODIUM CHLORIDE 0.9% 100 ML IVPB SCH ×3 (08:09→23:05)
[2021-09-15] MEDS: SYMBICORT 160-4.5 MCG INHALER INHALATION SCH ×2 (08:32→20:46)
[2021-09-15] MEDS: IPRATROPIUM-ALBUTEROL 3 ML NEB INHALATION SCH ×5 (08:32→20:46)
[2021-09-15 11:33] LABS: Potassium 3.3 mmol/L (3.5-5.1)
[2021-09-15 11:34] LABS: Calcium 7.9 mg/dL (8.4-10.2)
[2021-09-15 11:57] LABS: Glucose,Whole Blood 363 mg/dL (75-99)
--- NOTE | 2021-09-15 12:11 | P.PN ---
Subjective Progress Note Date: 09/15/21 66-year-old male, who presents to the emergency department, on September 06, complaining of shortness of breath, and increasing abdominal distention. The patient has a history of a lung mass, with multiple lesions in the liver, consistent with metastatic disease. Unfortunately, he has not had his CT-guided fine-needle biopsy of his liver lesions, which hopefully will give us a diagnosis and a stage. The patient does have a history of CHF, and COPD. He sees Dr. Valentine, as a primary. Recently, the patient's health has been declining, and is been in and out of the hospital multiple times recently. He denies any fever or chills. He denies any chest pain. He does admit to some recent diarrhea. He apparently is in palliative care. A paracentesis abdominis was done, and 2 L of fluid was removed. He is currently on 2 L nasal cannula. He's not receiving any IV fluids. Cytology from the ascitic fluid is pending. In addition, the patient has a history of atrial fibrillation, coronary artery disease, heart failure, COPD, diabetes mellitus, GERD, hyperlipidemia, hypertension, myocardial infarction, status post pacemaker insertion, diabetic neuropathy, chronic kidney disease, liver cirrhosis, and celiac disease, as well as dermatitis herpetiformis. White count of 17.5, hemoglobin 12.7, hematocrit 39.8, and platelet count 129,000. Sodium 136, potassium 3.9, chlorides 97, CO2 30, anion gap 9, BUN 72, creatinine 2.24. AST is 123, ALT is 185. Albumin is 3.1. Chest x-ray shows bilateral patchy infiltrates, likely related to underlying malignancy rather than pneumonia. CT of the abdomen and pelvis show evidence of ascites, small bilateral pleural effusions, and multiple nodules within the lung tobias. Progress note dated 09/09/2021. 66-year-old male, who presented with shortness of breath, and increasing abdominal distention. The patient had a paracentesis abdominis, performed by interventional radiology. 2.2 L of fluid was removed. The fluid cytology was negative. The patient has a lesion in his left lung, and multiple lesions in his liver on PET scan. We are thinking that his primary diagnosis is lung cancer with metastasis. He will still likely need a CT-guided fine-needle aspiration of a liver lesion, which would give us both a diagnosis and a staged. The patient's overall health in the last 6-8 weeks, has significantly declined, and he has had multiple admissions in the hospital. Currently, he is on room air. White count 22.1, hemoglobin 14.4, hematocrit 42.7, and platelet count 165,000. Sodium 137, potassium 3.4, chlorides 97, CO2 31, anion gap 9, BUN 72, and creatinine 2.35. the patient is seen today 09/11/2021 in follow-up on the selective care unit. He is currently resting comfortably in bed. No acute distress. He did undergo a liver biopsy by interventional radiology yesterday. Pathology pending. he is currently maintaining O2 saturation in the 90s on room air. He mechanically stable. Afebrile. White count 20.0. Hemoglobin 14.2. Sodium 134. Potassium 4.1. Creatinine 3.08. Glucose 220. AST 393. ALT 426. He is continued on DuoNeb inhalations, Symbicort, oral diuretics. On 09/12/2021 patient seen in follow-up on [facility] care unit, he is awake and alert, he is oriented 3, he appears weak, fatigued, a bit more jaundiced. He is status post fine-needle aspirate biopsy of the liver, and the pathology report is still pending. Patient had a ultrasound-guided paracentesis on 09/07/2021 and 2.2 L of ascitic fluid was removed, with nondiagnostic cytology. Denies any respiratory difficulty, he is on 2 L of oxygen pulse ox 97%, he is afebrile, hemodynamically stable. Today's labs have been reviewed, his white blood cell, 17.7, hemoglobin is 14.6, sodium is 135, potassium is 3.8, chloride is 1, B1 is 102, creatinine is 3.01. His liver enzymes were trending up on yesterday's labs, and his AST was up to 393, ALT is 426, his alkaline phosphatase is 368. His hepatitis panel was nonreactive. Ascites fluid cultures were negative. No cough, no chest discomfort, patient remains on DuoNeb, Symbicort, he is on oral Lasix 60 mg twice daily. On 09/14/2021 patient seen in follow-up on [facility] care unit, patient's liver biopsy results are still pending. No acute events overnight, patient remains on 2 L of oxygen, he is mildly short of breath with conversation, and exertion, however this has remained stable. he denies any worsening abdominal distention although his abdomen is somewhat distended. 1+ lower extremity edema, nephrology is following, Lasix is currently on hold, patient continues on Ald actone. Today's labs have been reviewed, his renal function is about the same, creatinine is slightly improved, at 3.09 down from 3.201 yesterday's labs, B1 is 111, sodium is 136, potassium is 3.4, chloride is 97, his pro calcitonin level is elevated at 19.7, she is on aztreonam for antibiotic coverage. His ascites fluid ulcer was negative, blood and stool cultures have also been sent, so far showing no growth. Denies any chest discomfort, no cough, or significant phlegm production, he seems a little bit more upbeat today, answering questions, he was updated on the status of his biopsy. He is weak, but she was able to get up in the shower today, feeling better, tolerating oral intake. The patient is seen today 09/15/2021 in follow-up on the selective care unit. Currently sitting up in a chair at the bedside. Awake and alert in no acute distress. He denies any worsening shortness of breath, cough or congestion. Lung sounds diminished but no bronchospasm or wheezing today. Continues with some abdominal distention and discomfort. Liver biopsy pathology results still pending. Sodium 134. Potassium 3.3. BUN 118. Creatinine 2.88. Glucose 364. Calcium 7.9. He is continued on Symbicort, DuoNeb inhalations. Antibiotics in the form of aztreonam, Flagyl. 0.9#50 miles per hour. He remains afebrile. Maintaining O2 saturation 98% on 2 L/m per nasal cannula. Objective - Vital Signs Vital signs: Vital Signs Temp 97.7 F 09/15/21 08:00 Pulse 62 09/15/21 11:58 Resp 18 09/15/21 08:00 BP 122/63 09/15/21 08:00 Pulse Ox 98 09/15/21 08:00 Intake & Output 09/14/21 09/15/21 09/15/21 18:59 06:59 18:59 Intake Total 936 240 240 Output Total 502 Balance 434 240 240 Weight 87.7 kg Intake: IV 400 Sodium Chloride 0.9% 1, 400 000 ml @ 50 mls/hr IV . Q20H [facility] Rx#:[id number] Oral 536 240 240 Output: Urine 300 Post Void Residual 202 Other: Voiding Method Bedside Commode Bedside Commode # Voids 1 1 # Bowel Movements 1 1 - Exam Alert, pleasant 66-year-old gentleman. No acute distress, oriented 3. Currently on room air. Jaundice. No overt respiratory distress, conversational dyspnea, or use of accessory muscles. HEENT examination is grossly unremarkable. Neck supple. Full range of motion. No adenopathy thyromegaly or neck vein di stention. Cardiovascular examination reveals regular rhythm rate. S1-S2 normal. No S3 or S4. No discernible murmur noted. Lungs reveal mild scattered rhonchi. No wheezes or crackles. Breath sounds equal bilaterally. Abdomen is quite distended with a fluid wave. Mild tenderness on palpation. No masses. Extremities are intact. No cyanosis or clubbing. Mild lower extremity edema is noted. Skin is without rash or lesion. Neurologic examination is brief but nonfocal. - Labs CBC & Chem 7: 09/13/21 07:13 09/15/21 11:00 Labs: Abnormal Lab Results - Last 24 Hours (Table) 09/14/21 09/14/21 09/14/21 Range/Units 14:10 16:49 20:09 Sodium (137-145) mmol/L Potassium (3.5-5.1) mmol/L BUN (9-20) mg/dL Creatinine (0.66-1.25) mg/dL Glucose (74-99) mg/dL POC Glucose (mg/dL) 388 H 394 H (75-99) mg/dL Calcium (8.4-10.2) mg/dL Urine Protein Trace H (Negative) Urine Bilirubin 1+ H (Negative) 09/15/21 09/15/21 09/15/21 Range/Units 06:31 11:00 11:46 Sodium 134 L (137-145) mmol/L Potassium 3.3 L (3.5-5.1) mmol/L BUN 118 H* (9-20) mg/dL Creatinine 2.88 H (0.66-1.25) mg/dL Glucose 364 H (74-99) mg/dL POC Glucose (mg/dL) 361 H 363 H (75-99) mg/dL Calcium 7.9 L (8.4-10.2) mg/dL Urine Protein (Negative) Urine Bilirubin (Negative) Microbiology - Last 24 Hours (Table) 09/12/21 12:34 Blood Culture - Preliminary Blood No Growth after 48 hours Assessment and Plan Assessment: 1 Suspected lung cancer, with liver metastasis, not yet diagnosed. Status post liver biopsy 09/10/2021. Pathology pending. 2 Status post large-volume paracentesis abdominis, cytology is negative. 3 History of underlying COPD from previous tobacco use. 4 History of atrial fibrillation. 5 History of coronary artery disease. 6 History of CHF. 7 History of diabetes mellitus with diabetic neuropathy. 8 History of gastroesophageal reflux disease. 9 History of hyperlipidemia. 10 History of hypertension. 11 Chronic kidney disease. 12 Prior history of myocardial infarction, status post PCI with stents. 13 Status post pacemaker insertion. 14 History of BPH. 15 Multiple other medical problems and comorbidities. Plan: The patient was seen and evaluated by Currently stable from the pulmonary standpoint Remains on aztreonam, Flagyl Pathology results still pending We will continue to follow I, the cosigning physician, performed a history & physical examination of the patient. Lungs sounds with few scattered rhonchi. Maintaining good O2 saturations in the 90s on room air. I discussed the assessment and plan of care with my nurse practitioner, Chelsea Shankar. I attest to the above note as dictated by her.
--- NOTE | 2021-09-15 13:09 | P.PN ---
Subjective Progress Note Date: 09/14/21 Principal diagnosis: Abdominal distention 66-year-old male with a known history of COPD on home oxygen, recent lung mass on CT chest on follow up with pulmonary, persistent atrial fibrillation on anticoagulation with xarelto, sick sinus syndrome with history of permanent pacemaker placement, coronary artery disease history of stent placement to circumflex, diabetes type 2 insulin-dependent, hypertension, hyperlipidemia, chronic CHF with diastolic dysfunction and previous history of smoking and alcohol use presents to ER with complaints of Abdominal distention. Patient do es have a history of liver cirrhosis due to previous history of alcohol abuse. Patient had previous admissions with acute on chronic CHF with diastolic dysfunction and also history of lung nodules. Patient is supposed to get biopsy of the lung nodule. Patient had previous history of right-sided pleural effusion and thoracentesis. Patient was recently discharged in the hospital on 08/19/2021. Patient had PET scan on 08/20/2021 showed high stage neoplasm with cirrhotic liver-multiple hypermetabolic dialysis could reflect metastatic disease. Abnormal left lung mass with thoracic adenopathy. Chest x-ray showed patchy bilateral infiltrate correlate for multifocal pneumonia. Neoplasm not excluded. CT of the abdomen pelvis showed ascites, small bilateral pleural effusions, multiple nodules within the visualized lung bases. Clinical consideration for colitis in the right upper quadrant is recommended. Laboratory data showed WBC 13.6 hemoglobin 12.6 and platelets 152 Sodium 130 potassium 3.9 chloride 93 BUN 64 and creatinine 1.9 Blood sugar is 314 Calcium 8.0 09/11/2021 Patient is seen and evaluated in follow-up on the selective care unit. He is currently resting comfortably in bed. No acute distress. He did undergo a liver biopsy by interventional radiology yesterday; continues to complain of discomfort at biopsy site. Pathology pending. he is currently maintaining O2 saturation in the 90s on room air. White count 20.0. Hemoglobin 14.2. Sodium 134. Potassium 4.1. Creatinine 3.08. Glucose 220. AST 393. ALT 426. He is continued on DuoNeb inhalations, Symbicort, oral diuretics. 09/12/2021 Patient is seen and evaluated in room at bedside and discussed with nursing staff in great detail; according to RN, patient has been quite weak and depressed and wanting to stay in chair; I did have a long discussion with patience wong regarding further testing and goals of care; patient does state that he feels depressed and hopeless due to recent diagnosis; psych consultation was advised and patient is agreeable to try Patient has undergone liver biopsy and results are pending; liver enzymes are continuing to trend up; hepatitis panel is nonreactive; WBC is trending up also; ascites fluid culture was unremarkable; ID is consulted and recommending to obtain stool for C. diff and culture; patient has been empirically started on antibiotics in form of Azactam and Flagyl; we will continue to monitor and further recommendations forthcoming 09/13/2021 Patient is seen and evaluated resting comfortably in bed; is at bedside and has numerous questions which were answered to her satisfaction Psych evaluation is discussed with and she is agreeable Patient remains quite depressed and has been evaluated by psychiatry but patient refuses any; medications at this time supportive psychotherapy was given We await results for liver biopsy for any further evaluation and recommendations 09/14/2021 Patient is seen and evaluated in room with at bedside, patient's liver biopsy results are still pending; patient denies any specific complaints Vital signs are reviewed with temperature 90.8, pulse 95, respiration 18 and blood pressure 131/66; patient remains on 2 L of oxygen Nephrology is following, Lasix is currently on hold, patient continues on Aldactone. labs have been reviewed, creatinine is slightly improved, at 3.09 down from 3.201 yesterday's labs, BUN is 111, sodium is 136, potassium is 3.4, chloride is 97, his pro calcitonin level is elevated at 19.7, she is on aztreonam for antibiotic coverage. His ascites fluid ulcer was negative, blood and stool cultures have also been sent, so far showing no growth. Objective - Vital Signs Vital signs: Vital Signs Temp 98.0 F 09/14/21 08:00 Pulse 90 09/14/21 12:09 Resp 16 09/14/21 12:09 BP 131/66 09/14/21 08:00 Pulse Ox 96 09/14/21 08:00 Intake & Output 09/13/21 09/14/21 09/14/21 18:59 06:59 18:59 Intake Total 520 Output Total 587 Balance 520 -587 Weight 85.9 kg 85.6 kg Intake: Intake, IV Titration 100 Amount Aztreonam 2 gm In Sodium 100 Chloride 0.9% 100 ml @ 33 .3 mls/hr IVPB Q8HR [facility] Rx#:[id number] Oral 420 Output: Urine 225 Post Void Residual 362 Other: Voiding Method Toilet Bedside Commode Bedside Commode # Voids 1 # Bowel Movements 1 - Exam PHYSICAL EXAMINATION: GENERAL: The patient is alert and oriented x3, not in any acute distress. Well developed, well nourished. HEENT: Pupils are round and equally reacting to light. EOMI. No scleral icterus. No conjunctival pallor. Normocephalic, atraumatic. No pharyngeal erythema. No thyromegaly. CARDIOVASCULAR: S1 and S2 present. No murmurs, rubs, or gallops. PULMONARY: Chest is clear to auscultation, no wheezing or crackles. ABDOMEN: Soft, nontender, nondistended, normoactive bowel sounds. No palpable organomegaly. MUSCULOSKELETAL: No joint swelling or deformity. EXTREMITIES: No cyanosis, clubbing, or pedal edema. NEUROLOGICAL: Gross neurological examination did not reveal any focal deficits. SKIN: No rashes. - Labs CBC & Chem 7: 09/13/21 07:13 09/15/21 11:00 Labs: Abnormal Lab Results - Last 24 Hours (Table) 09/13/21 09/13/21 09/13/21 Range/Units 07:13 16:42 19:51 Plt Count 92 L (150-450) k/uL Neutrophils # 16.2 H (1.3-7.7) k/uL Lymphocytes # 0.5 L (1.0-4.8) k/uL Sodium (137-145) mmol/L Potassium (3.5-5.1) mmol/L Chloride (98-107) mmol/L BUN (9-20) mg/dL Creatinine (0.66-1.25) mg/dL Glucose (74-99) mg/dL POC Glucose (mg/dL) 207 H 317 H (75-99) mg/dL Calcium (8.4-10.2) mg/dL Magnesium (1.6-2.3) mg/dL 09/14/21 09/14/21 09/14/21 Range/Units 06:11 06:27 08:41 Plt Count (150-450) k/uL Neutrophils # (1.3-7.7) k/uL Lymphocytes # (1.0-4.8) k/uL Sodium 136 L (137-145) mmol/L Potassium 3.4 L (3.5-5.1) mmol/L Chloride 97 L (98-107) mmol/L BUN 111 H* (9-20) mg/dL Creatinine 3.09 H (0.66-1.25) mg/dL Glucose 170 H (74-99) mg/dL POC Glucose (mg/dL) 51 L 58 L (75-99) mg/dL Calcium 8.2 L (8.4-10.2) mg/dL Magnesium 2.8 H (1.6-2.3) mg/dL 09/14/21 Range/Units 11:51 Plt Count (150-450) k/uL Neutrophils # (1.3-7.7) k/uL Lymphocytes # (1.0-4.8) k/uL Sodium (137-145) mmol/L Potassium (3.5-5.1) mmol/L Chloride (98-107) mmol/L BUN (9-20) mg/dL Creatinine (0.66-1.25) mg/dL Glucose (74-99) mg/dL POC Glucose (mg/dL) 189 H (75-99) mg/dL Calcium (8.4-10.2) mg/dL Magnesium (1.6-2.3) mg/dL Microbiology - Last 24 Hours (Table) 09/13/21 14:41 Stool Culture - Preliminary Stool 09/12/21 12:34 Blood Culture - Preliminary Blood No Growth after 24 hours Assessment and Plan Assessment: Abdominal distention due to ascites status post paracentesis with 2.2 L fluid removal Alcoholic liver cirrhosis suspicious multiple liver metastatic lesions as per Recent history of PET scan on 08/20/21 . chronic CHF with diastolic dysfunction Recently diagnosed lung nodules with abdominal CT chest.. Supposed to follow with pulmonary clinic. s/p outpatient PET scan on 08/20/2021 Hyperglycemia with uncontrolled diabetes type 2 Elevated troponin level unlikely ACS. Hyponatremia likely hypervolemic. Possible SIADH cannot be excluded. Bilateral small pleural effusions with recent history of right thoracentesis Chronic postnasal drip Persistent atrial fibrillation on anticoagulation with xarelto. Was on hold for persistent nosebleeds. Cardiology recommends to start back on xarelto. Sick sinus syndrome with history of permanent pacemaker placement coronary artery disease history of stent placement to circumflex Hypertension Hyperlipidemia Chronic hypoxic respiratory failure secondary to COPD Previous history of smoking History of liver cirrhosis DVT prophylaxis Full code Plan: Patient is status post paracentesis with 2.2 L fluid removal. Cell count and differential showed no evidence of SBP. Follow-up fluid culture and cytology report. Replace electrolytes and patient will be started back on Lasix and spironolactone. Monitor renal function. Continue with home medications and follow-up closely. Pulmonary and cardiology was consulted. Prognosis guarded at this time.
[2021-09-15] MEDS ORDERED: Potassium Replacement Protocol 1 EACH MISC MISCELLANE PRN (13:14)
[2021-09-15] MEDS: LOPERAMIDE 2 MG CAP PO PRN (14:43)
[2021-09-15] MEDS: POTASSIUM CHLORIDE ER 20 MEQ TAB.ER PO SCH (14:44)
[2021-09-15 17:24] LABS: Glucose,Whole Blood 425 mg/dL (75-99)
--- NOTE | 2021-09-15 17:36 | PN ---
PROGRESS NOTE DATE OF SERVICE: 09/15/2021 REASON FOR FOLLOWUP: leukocytosis and diarrhea. INTERVAL HISTORY: The patient is afebrile. The patient is breathing comfortably. He mentioned feeling slightly better. Diarrhea has slowed down. No chest pain, shortness of breath or cough. PHYSICAL EXAMINATION: Blood pressure 116/75, pulse of 102, temperature 98. She is 98% on 3 L nasal cannula. General description is an elderly male lying in bed in no distress. RESPIRATORY SYSTEM: Unlabored breathing. Clear to auscultation anteriorly. HEART: S1, S2. Regular rate and rhythm. ABDOMEN: Soft. Minimally distended. No guarding or rigidity. LABS: No new labs have been obtained today. The patient's stool studies are currently pending. DIAGNOSTIC IMPRESSION AND PLAN: Patient with elevated white count in this patient who did have predominantly abdominal symptoms of distention and diarrhea. Stool cultures are currently pending. Patient to continue with Azactam and Flagyl in view of his allergies. Repeat CBC tomorrow. Continue with supportive care. MMODL / IJN: [id number] /
[2021-09-15] MEDS: TAMSULOSIN 0.4 MG CAP.ER.24H PO SCH (19:03)
--- NOTE | 2021-09-15 20:03 | PN ---
PROGRESS NOTE Patient is seen for followup for acute kidney injury. Patient's renal function had worsened, and currently diuretics are on hold and he is maintained on normal saline at 50 mL/hour. This morning patient denies any significant complaints. On examination, blood pressure was 122/63, heart rate 62 per minute. He is afebrile. EXAMINATION OF THE HEART: S1 and S2. EXAMINATION OF LUNGS: Bilateral breath sounds are heard. Abdomen is soft, non-tender, distended with ascites. Examination of lower extremities shows edema 1+ bilaterally. DESIGN STUDIO CONSULTANT EXAM: Grossly intact. Labs show sodium 134, potassium 3.3, chloride 98, BUN 118, serum creatinine 2.8, calcium 7.9 mg/dL. ASSESSMENT: 1. Acute kidney injury, most recently associated with diuresis, currently slightly improved with IV hydration. I will continue with the IV fluids at 50 mL/hour for now. BUN remains disproportionately elevated. No evidence of obvious GI bleed and patient is not on any steroids. Continue with IV hydration. 2. Liver mass and lung nodules. Awaiting pathology. Patient is status post biopsy of the liver mass. 3. Chronic kidney disease, stage 4. Baseline creatinine around 1.8 to 2.4 secondary to nephrosclerosis and cardiorenal syndrome. 4. Acute on chronic diastolic congestive heart failure. 5. Ascites, status post paracentesis. 6. Diarrhea. Stool cultures pending. Patient is being followed by ID. He is maintained on Azactam and Flagyl empirically. PLAN: Continue with the IV fluids and repeat labs in a.m. MMNATIL / CRUZN: [id number] /
[2021-09-15 20:24] LABS: Glucose,Whole Blood 399 mg/dL (75-99)
[2021-09-15] MEDS: INSULIN DETEMIR (LEVEMIR) 100 UNIT/ML SYR SQ SCH ×2 (20:40→21:18)
[2021-09-15] MEDS: MONTELUKAST 10 MG TAB PO SCH (20:41)
[2021-09-15] MEDS: MIRTAZAPINE 15 MG TAB PO SCH (20:41)
[2021-09-15] MEDS: ZOLPIDEM 5 MG TAB PO PRN (21:18)
[2021-09-15] MEDS ORDERED: DRY MOUTH SPRAY 44.3 SPRAY/44.3 ML SPRAY MUCOUS MEM PRN (21:33)
[2021-09-15] MEDS: SODIUM CHLORIDE 0.9% 1,000 ML IV SCH (23:05)
[2021-09-16 06:18] LABS: Glucose,Whole Blood 229 mg/dL (75-99)
[2021-09-16] MEDS: PANTOPRAZOLE 40 MG TABLET PO SCH (06:41)
[2021-09-16] MEDS: INSULIN ASPART (NovoLOG) 100 UNIT/ML VIAL SQ SCH ×4 (06:41→20:49)
[2021-09-16] MEDS: IPRATROPIUM-ALBUTEROL 3 ML NEB INHALATION SCH ×4 (07:40→20:22)
[2021-09-16] MEDS: SYMBICORT 160-4.5 MCG INHALER INHALATION SCH ×2 (07:40→20:23)
[2021-09-16] MEDS: METOPROLOL TARTRATE 50 MG TAB PO SCH ×2 (08:55→20:45)
[2021-09-16] MEDS: allopurinoL 100 MG TAB PO SCH (08:56)
[2021-09-16] MEDS: FLECAINIDE 50 MG TAB PO SCH ×2 (08:56→20:44)
[2021-09-16] MEDS: metroNIDAZOLE 500 MG TAB PO SCH ×4 (08:56→20:44)
[2021-09-16] MEDS: AZTREONAM 2 GM in SODIUM CHLORIDE 0.9% 100 ML IVPB SCH ×3 (08:56→23:29)
[2021-09-16] MEDS: LOPERAMIDE 2 MG CAP PO PRN (08:56)
[2021-09-16] MEDS: ISOSORBIDE MONONITRATE ER 30 MG TAB.ER.24H PO SCH (08:56)
[2021-09-16] MEDS: SPIRONOLACTONE 25 MG TAB PO SCH (08:56)
[2021-09-16] MEDS: DILTIAZEM ORAL 30 MG TAB PO SCH ×2 (08:56→20:44)
[2021-09-16] MEDS: hydrALAZINE HCL 50 MG TAB PO SCH (08:57)
[2021-09-16 09:44] LABS: Basophils % (A) 0 %; Eosinophils % (A) 0 %; HCT 43.8 % (39.0-53.0); HGB 13.5 gm/dL (13.0-17.5); Lymphocytes # (A) 0.5 k/uL (1.0-4.8); Lymphocytes % (A) 3 %; MCH 31.4 pg (25.0-35.0); MCHC 30.9 g/dL (31.0-37.0); MCV 101.4 fL (80.0-100.0); Macrocytosis Slight; Mean Platelet Volume 13.8; Monocytes # (A) 0.6 k/uL (0-1.0); Monocytes % (A) 4 %; Neutrophils # (A) 14.7 k/uL (1.3-7.7); Neutrophils % (A) 92 %; RBC 4.32 m/uL (4.30-5.90); RDW 15.5 % (11.5-15.5); WBC 15.9 k/uL (3.8-10.6)
[2021-09-16 09:52] LABS: Platelet Count 93 k/uL (150-450)
[2021-09-16 09:56] LABS: Calcium 8.2 mg/dL (8.4-10.2); Potassium 3.4 mmol/L (3.5-5.1)
[2021-09-16 11:26] LABS: C Reactive Protein 4.9 mg/dL (<1.0)
--- NOTE | 2021-09-16 11:38 | P.PN ---
Subjective Progress Note Date: 09/15/21 Principal diagnosis: Abdominal distention 66-year-old male with a known history of COPD on home oxygen, recent lung mass on CT chest on follow up with pulmonary, persistent atrial fibrillation on anticoagulation with xarelto, sick sinus syndrome with history of permanent pacemaker placement, coronary artery disease history of stent placement to circumflex, diabetes type 2 insulin-dependent, hypertension, hyperlipidemia, chronic CHF with diastolic dysfunction and previous history of smoking and alcohol use presents to ER with complaints of Abdominal distention. Patient do es have a history of liver cirrhosis due to previous history of alcohol abuse. Patient had previous admissions with acute on chronic CHF with diastolic dysfunction and also history of lung nodules. Patient is supposed to get biopsy of the lung nodule. Patient had previous history of right-sided pleural effusion and thoracentesis. Patient was recently discharged in the hospital on 08/19/2021. Patient had PET scan on 08/20/2021 showed high stage neoplasm with cirrhotic liver-multiple hypermetabolic dialysis could reflect metastatic disease. Abnormal left lung mass with thoracic adenopathy. Chest x-ray showed patchy bilateral infiltrate correlate for multifocal pneumonia. Neoplasm not excluded. CT of the abdomen pelvis showed ascites, small bilateral pleural effusions, multiple nodules within the visualized lung bases. Clinical consideration for colitis in the right upper quadrant is recommended. Laboratory data showed WBC 13.6 hemoglobin 12.6 and platelets 152 Sodium 130 potassium 3.9 chloride 93 BUN 64 and creatinine 1.9 Blood sugar is 314 Calcium 8.0 09/11/2021 Patient is seen and evaluated in follow-up on the selective care unit. He is currently resting comfortably in bed. No acute distress. He did undergo a liver biopsy by interventional radiology yesterday; continues to complain of discomfort at biopsy site. Pathology pending. he is currently maintaining O2 saturation in the 90s on room air. White count 20.0. Hemoglobin 14.2. Sodium 134. Potassium 4.1. Creatinine 3.08. Glucose 220. AST 393. ALT 426. He is continued on DuoNeb inhalations, Symbicort, oral diuretics. 09/12/2021 Patient is seen and evaluated in room at bedside and discussed with nursing staff in great detail; according to RN, patient has been quite weak and depressed and wanting to stay in chair; I did have a long discussion with patience wong regarding further testing and goals of care; patient does state that he feels depressed and hopeless due to recent diagnosis; psych consultation was advised and patient is agreeable to try Patient has undergone liver biopsy and results are pending; liver enzymes are continuing to trend up; hepatitis panel is nonreactive; WBC is trending up also; ascites fluid culture was unremarkable; ID is consulted and recommending to obtain stool for C. diff and culture; patient has been empirically started on antibiotics in form of Azactam and Flagyl; we will continue to monitor and further recommendations forthcoming 09/13/2021 Patient is seen and evaluated resting comfortably in bed; is at bedside and has numerous questions which were answered to her satisfaction Psych evaluation is discussed with and she is agreeable Patient remains quite depressed and has been evaluated by psychiatry but patient refuses any; medications at this time supportive psychotherapy was given We await results for liver biopsy for any further evaluation and recommendations 09/14/2021 Patient is seen and evaluated in room with at bedside, patient's liver biopsy results are still pending; patient denies any specific complaints Vital signs are reviewed with temperature 90.8, pulse 95, respiration 18 and blood pressure 131/66; patient remains on 2 L of oxygen Nephrology is following, Lasix is currently on hold, patient continues on Aldactone. labs have been reviewed, creatinine is slightly improved, at 3.09 down from 3.201 yesterday's labs, BUN is 111, sodium is 136, potassium is 3.4, chloride is 97, his pro calcitonin level is elevated at 19.7, she is on aztreonam for antibiotic coverage. His ascites fluid ulcer was negative, blood and stool cultures have also been sent, so far showing no growth. 09/15/2021 Patient is seen and evaluated in follow-up with nursing staff at bedside. Currently sitting up at the site of his bed. Complaints of 2 episodes of diarrhea since morning; per nursing staff stool wasn't foul-smelling; likely related to antibiotic use. Awake and alert in no acute distress; continues to complain of abdominal distention and discomfort. Liver biopsy pathology results still pending. Vital signs are stable with temperature 97.7, pulse 62, respiration 18 and blood pressure 122/63, O2 saturation 98% Sodium 134. Potassium 3.3. BUN 118. Creatinine 2.88. Glucose 364. Calcium 7.9. Patient remains on Symbicort, DuoNeb inhalations. Antibiotics in the form of aztreonam, Flagyl. Nephrology on board for acute renal injury likely related to diuresis and slowly improving. IV hydration with normal saline at a rate of 50 mL an hour; BUN/creatinine disproportionately elevated; no evidence of GI bleed ID is recommending to continue current dose of Azactam and Flagyl started empirically for possible abdominal source of infection Objective - Vital Signs Vital signs: Vital Signs Temp 97.7 F 09/15/21 08:00 Pulse 64 09/15/21 12:12 Resp 18 09/15/21 08:00 BP 122/63 09/15/21 08:00 Pulse Ox 98 09/15/21 08:00 Intake & Output 09/14/21 09/15/21 09/15/21 18:59 06:59 18:59 Intake Total 936 240 240 Output Total 502 Balance 434 240 240 Weight 87.7 kg Intake: IV 400 Sodium Chloride 0.9% 1, 400 000 ml @ 50 mls/hr IV . Q20H [facility] Rx#:[id number] Oral 536 240 240 Output: Urine 300 Post Void Residual 202 Other: Voiding Method Bedside Commode Bedside Commode # Voids 1 1 # Bowel Movements 1 1 - Exam PHYSICAL EXAMINATION: GENERAL: The patient is alert and oriented x3, not in any acute distress. Well developed, well nourished. HEENT: Pupils are round and equally reacting to light. EOMI. No scleral icterus. No conjunctival pallor. Normocephalic, atraumatic. No pharyngeal erythema. No thyromegaly. CARDIOVASCULAR: S1 and S2 present. No murmurs, rubs, or gallops. PULMONARY: Chest is clear to auscultation, no wheezing or crackles. ABDOMEN: Soft, nontender, nondistended, normoactive bowel sounds. No palpable organomegaly. MUSCULOSKELETAL: No joint swelling or deformity. EXTREMITIES: No cyanosis, clubbing, or pedal edema. NEUROLOGICAL: Gross neurological examination did not reveal any focal deficits. SKIN: No rashes. - Labs CBC & Chem 7: 09/16/21 09:02 09/16/21 09:02 Labs: Abnormal Lab Results - Last 24 Hours (Table) 09/14/21 09/14/21 09/14/21 Range/Units 14:10 16:49 20:09 Sodium (137-145) mmol/L Potassium (3.5-5.1) mmol/L BUN (9-20) mg/dL Creatinine (0.66-1.25) mg/dL Glucose (74-99) mg/dL POC Glucose (mg/dL) 388 H 394 H (75-99) mg/dL Calcium (8.4-10.2) mg/dL Urine Protein Trace H (Negative) Urine Bilirubin 1+ H (Negative) 09/15/21 09/15/21 09/15/21 Range/Units 06:31 11:00 11:46 Sodium 134 L (137-145) mmol/L Potassium 3.3 L (3.5-5.1) mmol/L BUN 118 H* (9-20) mg/dL Creatinine 2.88 H (0.66-1.25) mg/dL Glucose 364 H (74-99) mg/dL POC Glucose (mg/dL) 361 H 363 H (75-99) mg/dL Calcium 7.9 L (8.4-10.2) mg/dL Urine Protein (Negative) Urine Bilirubin (Negative) Microbiology - Last 24 Hours (Table) 09/12/21 12:34 Blood Culture - Preliminary Blood No Growth after 48 hours Assessment and Plan Assessment: Abdominal distention due to ascites status post paracentesis with 2.2 L fluid removal Alcoholic liver cirrhosis suspicious multiple liver metastatic lesions as per Recent history of PET scan on 08/20/21 . chronic CHF with diastolic dysfunction Recently diagnosed lung nodules with abdominal CT chest.. Supposed to follow with pulmonary clinic. s/p outpatient PET scan on 08/20/2021 Hyperglycemia with uncontrolled diabetes type 2 Elevated troponin level unlikely ACS. Hyponatremia likely hypervolemic. Possible SIADH cannot be excluded. Bilateral small pleural effusions with recent history of right thoracentesis Chronic postnasal drip Persistent atrial fibrillation on anticoagulation with xarelto. Was on hold for persistent nosebleeds. Cardiology recommends to start back on xarelto. Sick sinus syndrome with history of permanent pacemaker placement coronary artery disease history of stent placement to circumflex Hypertension Hyperlipidemia Chronic hypoxic respiratory failure secondary to COPD Previous history of smoking History of liver cirrhosis DVT prophylaxis Full code Plan: Patient is status post paracentesis with 2.2 L fluid removal. Cell count and differential showed no evidence of SBP. Follow-up fluid culture and cytology report. Replace electrolytes and patient will be started back on Lasix and spironolactone. Monitor renal function. Continue with home medications and fol low-up closely. Pulmonary and cardiology was consulted. Prognosis guarded at this time.
[2021-09-16 11:59] LABS: Glucose,Whole Blood 306 mg/dL (75-99)
--- NOTE | 2021-09-16 13:11 | PN ---
PROGRESS NOTE Patient is seen for followup for acute kidney injury. Patient is currently maintained on IV fluids. His renal function had improved with creatinine down to 2.8 yesterday. Today it is back up to 3.3. The pathology of liver mass shows evidence of metastatic small cell lung cancer. He is currently resting in bed. He is comfortable, denies any significant complaints. The patient is able to eat. Denies significant fullness in his abdomen. He has been voiding. Post-void residual has not been elevated. I will recheck another postvoid today as his creatinine has jumped up again. PHYSICAL EXAMINATION: On examination today, blood pressure 105/69, heart rate 76 per minute, he is afebrile. Examination of the heart S1, S2. Examination of the lungs, bilateral breath sounds are heard. Decreased breath sounds at the bases. Abdomen is soft, nontender, distended. Examination of lower extremities shows edema 1+ bilaterally. [employer] exam grossly intact. LAB: Show sodium 137, potassium 3.7, chloride 100 BUN 126, serum creatinine 3.3, hemoglobin 13.5 g/dL. ASSESSMENT: 1. Acute kidney injury. Renal function has been worsening. It had improved with IV fluids with creatinine down to 2.8. Today it is back up to 3.3. I will check another postvoid residual. I will continue with the IV fluids. Diuretics remain on hold. Blood pressure is noted to be on the lower side. The differential diagnosis includes hepatorenal syndrome. Midodrine will be added and I will decrease the hydralazine further. 2. Liver mass and lung nodules with biopsy of liver mass showing metastatic small cell cancer. 3. Ascites with previous paracentesis previously. Consider paracentesis again given the worsening renal function as there may be a component of compartment syndrome. PLAN: Continue IV fluids. Decrease hydralazine. Check postvoid residual again. Consider paracentesis as there may be a component of compartment syndrome. Overall prognosis is guarded given the underlying malignancy. MMODL / IJN: [id number] /
--- NOTE | 2021-09-16 14:13 | P.PN ---
Subjective Progress Note Date: 09/16/21 09/16/2021, the patient has been confirmed to have metastatic small cell lung cancer. The patient's liver biopsy came back positive for small cell lung cancer. Noted the patient had a lobulated mass around 4 x 3 cm in the left midlung and left hilar and suprahilar hilar metabolic lymphadenopathy that was quite active in addition to hepatitic metastases. This was confirmed by a fine- needle aspirate of the liver lesion. The patient also had small bilateral pleural effusion, ascites and the ascitic fluid came back negative for malignancy. The patient is currently on room air oxygen. Quite fatigued and debilitated and has low energy and appetite and continues to lose weight. He is afebrile. His blood work is showing a white cell count of 15.9 with hemoglobin of 15.5, platelet counts are low at 93, BUN is 126 with a creatinine of 3.3 and the sodium level of 137. Objective - Vital Signs Vital signs: Vital Signs Temp 97.4 F L 09/16/21 04:00 Pulse 77 09/16/21 11:58 Resp 18 09/16/21 11:58 BP 113/65 09/16/21 11:58 Pulse Ox 93 L 09/16/21 11:58 Intake & Output 09/15/21 09/16/21 09/16/21 18:59 06:59 18:59 Intake Total 440 470 Output Total 1 150 Balance 439 -150 470 Intake: IV 200 50 Sodium Chloride 0.9% 1, 200 50 000 ml @ 50 mls/hr IV . Q20H [facility] Rx#:[id number] Oral 240 420 Output: Urine 150 Stool 1 Other: Voiding Method Bedside Commode Urinal # Bowel Movements 2 2 1 - Exam Alert, pleasant 66-year-old gentleman. No acute distress, oriented 3. Currently on room air. Jaundice. No overt respiratory distress, conversational dyspnea, or use of accessory muscles. HEENT examination is grossly unremarkable. Neck supple. Full range of motion. No adenopathy thyromegaly or neck vein distention. Cardiovascular examination reveals regular rhythm rate. S1-S2 normal. No S3 or S4. No discernible murmur noted. Lungs reveal mild scattered rhonchi. No wheezes or crackles. Breath sounds equal bilaterally. Abdomen is quite distended with a fluid wave. Mild tenderness on palpation. No masses. Extremities are intact. No cyanosis or clubbing. Mild lower extremity edema is noted. Skin is without rash or lesion. - Labs CBC & Chem 7: 09/16/21 09:02 09/16/21 09:02 Labs: Abnormal Lab Results - Last 24 Hours (Table) 09/15/21 09/15/21 09/16/21 Range/Units 17:13 20:15 06:17 WBC (3.8-10.6) k/uL MCV (80.0-100.0) fL MCHC (31.0-37.0) g/dL Plt Count (150-450) k/uL Potassium (3.5-5.1) mmol/L BUN (9-20) mg/dL Creatinine (0.66-1.25) mg/dL Glucose (74-99) mg/dL POC Glucose (mg/dL) 425 H 399 H 229 H (75-99) mg/dL Calcium (8.4-10.2) mg/dL C-Reactive Protein (<1.0) mg/dL 09/16/21 09/16/21 09/16/21 Range/Units 09:02 09:02 11:49 WBC 15.9 H (3.8-10.6) k/uL MCV 101.4 H (80.0-100.0) fL MCHC 30.9 L (31.0-37.0) g/dL Plt Count 93 L (150-450) k/uL Potassium 3.4 L (3.5-5.1) mmol/L BUN 126 H* (9-20) mg/dL Creatinine 3.31 H (0.66-1.25) mg/dL Glucose 273 H (74-99) mg/dL POC Glucose (mg/dL) 306 H (75-99) mg/dL Calcium 8.2 L (8.4-10.2) mg/dL C-Reactive Protein 4.9 H (<1.0) mg/dL Microbiology - Last 24 Hours (Table) 09/13/21 14:41 Stool Culture - Preliminary Stool 09/12/21 12:34 Blood Culture - Preliminary Blood No Growth after 72 hours Assessment and Plan Plan: 1 metastatic small cell lung cancer with a left lung mass, mediastinal lym phadenopathy and hepatic metastases. 2 Status post large-volume paracentesis abdominis, cytology is negative. 3 History of underlying COPD from previous tobacco use. 4 History of atrial fibrillation. 5 History of coronary artery disease. 6 History of CHF. 7 History of diabetes mellitus with diabetic neuropathy. 8 History of gastroesophageal reflux disease. 9 History of hyperlipidemia. 10 History of hypertension. 11 Chronic kidney disease. 12 Prior history of myocardial infarction, status post PCI with stents. 13 Status post pacemaker insertion. 14 History of BPH. 15 Multiple other medical problems and comorbidities. Plan: Is currently on room air oxygen. Renal function stable. Diagnoses been established. Oncology to follow-up. 4 prognosis. Poor candidate for systemic chemotherapy. We'll establish CODE STATUS.
[2021-09-16 15:48] LABS: Target Cells Present
[2021-09-16 16:54] LABS: Glucose,Whole Blood 206 mg/dL (75-99)
--- NOTE | 2021-09-16 17:16 | P.PN ---
Subjective Progress Note Date: 09/16/21 Principal diagnosis: ascites, metastatic SCLC to the liver In f/u today pt cont to not feel well, he is weak, no energy, sleeps a lot. Abd distension and BLE swelling are slowly progressing. He is not able to ambulate due to SOB on exertion, he c/o diarrhea. Objective - Vital Signs Vital signs: Vital Signs Temp 97.4 F L 09/16/21 04:00 Pulse 72 09/16/21 15:59 Resp 18 09/16/21 11:58 BP 113/65 09/16/21 11:58 Pulse Ox 93 L 09/16/21 11:58 Intake & Output 09/15/21 09/16/21 09/16/21 18:59 06:59 18:59 Intake Total 440 470 Output Total 1 150 Balance 439 -150 470 Intake: IV 200 50 Sodium Chloride 0.9% 1, 200 50 000 ml @ 50 mls/hr IV . Q20H [facility] Rx#:[id number] Oral 240 420 Output: Urine 150 Stool 1 Other: Voiding Method Bedside Commode Urinal # Bowel Movements 2 2 1 - Constitutional General appearance: Present: cooperative, no acute distress, thin - EENT Eyes: Present: anicteric sclerae, EOMI ENT: Present: hearing grossly normal - Respiratory Respiratory: bilateral: other (shallow breaths) - Cardiovascular Heart sounds: normal: S1, S2 - Peripheral edema leg Peripheral Edema: bilateral: 3+, Pitting - Gastrointestinal General gastrointestinal: Present: distended, soft - Neurologic Neurologic: Present: CNII-XII intact - Musculoskeletal Musculoskeletal: Present: generalized weakness - Psychiatric Psychiatric: Present: A&O x's 3, appropriate affect, intact judgment & insight - Labs CBC & Chem 7: 09/16/21 09:02 09/16/21 09:02 Labs: Abnormal Lab Results - Last 24 Hours (Table) 09/15/21 09/15/21 09/16/21 Range/Units 17:13 20:15 06:17 WBC (3.8-10.6) k/uL MCV (80.0-100.0) fL MCHC (31.0-37.0) g/dL Plt Count (150-450) k/uL Neutrophils # (1.3-7.7) k/uL Lymphocytes # (1.0-4.8) k/uL Potassium (3.5-5.1) mmol/L BUN (9-20) mg/dL Creatinine (0.66-1.25) mg/dL Glucose (74-99) mg/dL POC Glucose (mg/dL) 425 H 399 H 229 H (75-99) mg/dL Calcium (8.4-10.2) mg/dL C-Reactive Protein (<1.0) mg/dL 09/16/21 09/16/21 09/16/21 Range/Units 09:02 09:02 11:49 WBC 15.9 H (3.8-10.6) k/uL MCV 101.4 H (80.0-100.0) fL MCHC 30.9 L (31.0-37.0) g/dL Plt Count 93 L (150-450) k/uL Neutrophils # 14.7 H (1.3-7.7) k/uL Lymphocytes # 0.5 L (1.0-4.8) k/uL Potassium 3.4 L (3.5-5.1) mmol/L BUN 126 H* (9-20) mg/dL Creatinine 3.31 H (0.66-1.25) mg/dL Glucose 273 H (74-99) mg/dL POC Glucose (mg/dL) 306 H (75-99) mg/dL Calcium 8.2 L (8.4-10.2) mg/dL C-Reactive Protein 4.9 H (<1.0) mg/dL Microbiology - Last 24 Hours (Table) 09/12/21 12:34 Blood Culture - Preliminary Blood No Growth after 96 hours 09/13/21 14:41 Stool Culture - Preliminary Stool Assessment and Plan (1) Small cell lung cancer Narrative/Plan: Met with pt and . We reviewed pathology from liver biopsy, positive for small cell lung cancer. Pt has extensive stage disease, treatable, but not curable. Surgery is not an option as not all sites of disease can be removed without leaving disease behind. Surgery is not standard of care for SCLC, even if it was not spread. Treatment options and intent of treatments are: hospice with the intent being to treat symptoms only, focus on comfort, llife expectancy 3-4 mo, may be less as pt is not in good shape at baseline. Option of treatment with systemic chemo, intent being palliation of symptoms of cancer and possible increase in life expectancy. If he were to have a good response to all the treatments available, life expectancy can about 12-18 months, this is entirely based on disease response and pt tolerance of treatment. It was explained that there is concern that treatment could prove to be fatal as pt health at baseline is poor. All of pt and 's questions were answered to the best of my ability. Will allow them time to think things over. Oncology will be back tomorrow afternoon and they can have any additional questions answered at that time and make final decision. Current Visit: Yes Status: Acute Priority: High Code(s): C34.90 - MALIGNANT NEOPLASM OF UNSP PART OF UNSP BRONCHUS OR LUNG SNOMED Code(s): 702376469 (2) Ascites Narrative/Plan: Recurrent. Previous analysis on fluid was neg for malignancy. Unable to kerrie culate SAG to determine if fluid is transudative or exudative without ascitic fluid albumin. Pt may need paracentesis in the future. Consider arranging for weekly paracentesis. Current Visit: Yes Status: Acute Priority: High Code(s): R18.8 - OTHER ASCITES SNOMED Code(s): 828210859 Plan: Unable to do MRI 2/[address] with contrast is next best image but, pt has CKD. Will see if his cr improves and discuss case with Nephrology to see if contrast could be given if properly planned out. Hold any head imaging for now. If pt opts for comfort only/hospice, will not pursue imaging Time with Patient: Greater than 30
--- NOTE | 2021-09-16 18:22 | PN ---
PROGRESS NOTE DATE OF SERVICE: 09/16/2021. FOLLOW UP IS: Leukocytosis. INTERVAL HISTORY: The patient is afebrile. The patient is currently breathing comfortably, feeling better after the patient did have a shower. No chest pain, shortness of breath or cough. Still having abdominal distention and diarrhea. PHYSICAL EXAMINATION: Blood pressure 113/65, pulse of 77, temperature of 97.4. He is 93% on room air. General description is an elderly male up in the chair in no distress. Respiratory system: Unlabored breathing, decreased intensity of the breath sounds, no wheeze. Heart S1, S2. Regular rate and rhythm. Abdomen soft, mildly distended. No guarding or rigidity. LABS: Hemoglobin is 13.1, white count 15.9, creatinine 3.31. Stool cultures currently pending. DIAGNOSTIC IMPRESSION AND PLAN: Patient with elevated white count with GI symptoms with sinusitis. However, those cultures have been negative. White count is trending down though. Covered with Azactam and Flagyl, to continue while monitoring clinical course closely. Continue supportive care. MMODL / IJN: [id number] /
[2021-09-16] MEDS: TAMSULOSIN 0.4 MG CAP.ER.24H PO SCH (18:23)
[2021-09-16 20:26] LABS: Glucose,Whole Blood 236 mg/dL (75-99)
[2021-09-16] MEDS: hydrALAZINE HCL 25 MG TAB PO SCH (20:43)
[2021-09-16] MEDS: MIRTAZAPINE 15 MG TAB PO SCH (20:44)
[2021-09-16] MEDS: MONTELUKAST 10 MG TAB PO SCH (20:44)
[2021-09-16] MEDS: ZOLPIDEM 5 MG TAB PO PRN (20:45)
[2021-09-16] MEDS: INSULIN DETEMIR (LEVEMIR) 100 UNIT/ML SYR SQ SCH (20:49)
[2021-09-16] MEDS: SODIUM CHLORIDE 0.9% 1,000 ML IV SCH (22:46)
--- NOTE | 2021-09-17 00:38 | P.PN ---
Subjective Progress Note Date: 09/16/21 Principal diagnosis: Abdominal distention 66-year-old male with a known history of COPD on home oxygen, recent lung mass on CT chest on follow up with pulmonary, persistent atrial fibrillation on anticoagulation with xarelto, sick sinus syndrome with history of permanent pacemaker placement, coronary artery disease history of stent placement to circumflex, diabetes type 2 insulin-dependent, hypertension, hyperlipidemia, chronic CHF with diastolic dysfunction and previous history of smoking and alcohol use presents to ER with complaints of Abdominal distention. Patient do es have a history of liver cirrhosis due to previous history of alcohol abuse. Patient had previous admissions with acute on chronic CHF with diastolic dysfunction and also history of lung nodules. Patient is supposed to get biopsy of the lung nodule. Patient had previous history of right-sided pleural effusion and thoracentesis. Patient was recently discharged in the hospital on 08/19/2021. Patient had PET scan on 08/20/2021 showed high stage neoplasm with cirrhotic liver-multiple hypermetabolic dialysis could reflect metastatic disease. Abnormal left lung mass with thoracic adenopathy. Chest x-ray showed patchy bilateral infiltrate correlate for multifocal pneumonia. Neoplasm not excluded. CT of the abdomen pelvis showed ascites, small bilateral pleural effusions, multiple nodules within the visualized lung bases. Clinical consideration for colitis in the right upper quadrant is recommended. Laboratory data showed WBC 13.6 hemoglobin 12.6 and platelets 152 Sodium 130 potassium 3.9 chloride 93 BUN 64 and creatinine 1.9 Blood sugar is 314 Calcium 8.0 09/11/2021 Patient is seen and evaluated in follow-up on the selective care unit. He is currently resting comfortably in bed. No acute distress. He did undergo a liver biopsy by interventional radiology yesterday; continues to complain of discomfort at biopsy site. Pathology pending. he is currently maintaining O2 saturation in the 90s on room air. White count 20.0. Hemoglobin 14.2. Sodium 134. Potassium 4.1. Creatinine 3.08. Glucose 220. AST 393. ALT 426. He is continued on DuoNeb inhalations, Symbicort, oral diuretics. 09/12/2021 Patient is seen and evaluated in room at bedside and discussed with nursing staff in great detail; according to RN, patient has been quite weak and depressed and wanting to stay in chair; I did have a long discussion with patience wong regarding further testing and goals of care; patient does state that he feels depressed and hopeless due to recent diagnosis; psych consultation was advised and patient is agreeable to try Patient has undergone liver biopsy and results are pending; liver enzymes are continuing to trend up; hepatitis panel is nonreactive; WBC is trending up also; ascites fluid culture was unremarkable; ID is consulted and recommending to obtain stool for C. diff and culture; patient has been empirically started on antibiotics in form of Azactam and Flagyl; we will continue to monitor and further recommendations forthcoming 09/13/2021 Patient is seen and evaluated resting comfortably in bed; is at bedside and has numerous questions which were answered to her satisfaction Psych evaluation is discussed with and she is agreeable Patient remains quite depressed and has been evaluated by psychiatry but patient refuses any; medications at this time supportive psychotherapy was given We await results for liver biopsy for any further evaluation and recommendations 09/14/2021 Patient is seen and evaluated in room with at bedside, patient's liver biopsy results are still pending; patient denies any specific complaints Vital signs are reviewed with temperature 90.8, pulse 95, respiration 18 and blood pressure 131/66; patient remains on 2 L of oxygen Nephrology is following, Lasix is currently on hold, patient continues on Aldactone. labs have been reviewed, creatinine is slightly improved, at 3.09 down from 3.201 yesterday's labs, BUN is 111, sodium is 136, potassium is 3.4, chloride is 97, his pro calcitonin level is elevated at 19.7, she is on aztreonam for antibiotic coverage. His ascites fluid ulcer was negative, blood and stool cultures have also been sent, so far showing no growth. 09/15/2021 Patient is seen and evaluated in follow-up with nursing staff at bedside. Currently sitting up at the site of his bed. Complaints of 2 episodes of diarrhea since morning; per nursing staff stool wasn't foul-smelling; likely related to antibiotic use. Awake and alert in no acute distress; continues to complain of abdominal distention and discomfort. Liver biopsy pathology results still pending. Vital signs are stable with temperature 97.7, pulse 62, respiration 18 and blood pressure 122/63, O2 saturation 98% Sodium 134. Potassium 3.3. BUN 118. Creatinine 2.88. Glucose 364. Calcium 7.9. Patient remains on Symbicort, DuoNeb inhalations. Antibiotics in the form of aztreonam, Flagyl. Nephrology on board for acute renal injury likely related to diuresis and slowly improving. IV hydration with normal saline at a rate of 50 mL an hour; BUN/creatinine disproportionately elevated; no evidence of GI bleed ID is recommending to continue current dose of Azactam and Flagyl started empirically for possible abdominal source of infection 09/16/2021 Patient was seen and evaluated with the nursing staff. Patient was confirmed to have metastatic lung cancer due to the positive liver biopsy. The patient had a lobulated mass around 4 x 3 cm in the left midlung and left hilar and suprahilar hilar metabolic lymphadenopathy along with hepatitic metastases which was confirmed by a fine-needle aspiration. The patient also suffers from bilateral pleural effusion and ascites. The ascitic fluid came back negative for malignancy. Patient is fatigued, low energy, and has a low appetite. Patient is afebrile. Quite fatigued and debilitated and has low energy and appetite and continues to lose weight. He is afebrile. Objective - Vital Signs Vital signs: Vital Signs Temp 97.4 F L 09/16/21 04:00 Pulse 77 09/16/21 11:58 Resp 18 09/16/21 11:58 BP 113/65 09/16/21 11:58 Pulse Ox 93 L 09/16/21 11:58 Intake & Output 09/15/21 09/16/21 09/16/21 18:59 06:59 18:59 Intake Total 440 230 Output Total 1 150 Balance 439 -150 230 Intake: IV 200 50 Sodium Chloride 0.9% 1, 200 50 000 ml @ 50 mls/hr IV . Q20H [facility] Rx#:[id number] Oral 240 180 Output: Urine 150 Stool 1 Other: Voiding Method Bedside Commode Urinal # Bowel Movements 2 2 1 - Exam PHYSICAL EXAMINATION: GENERAL: The patient is alert and oriented x3, not in any acute distress. Well developed, well nourished. HEENT: Pupils are round and equally reacting to light. EOMI. No scleral icterus. No conjunctival pallor. Normocephalic, atraumatic. No pharyngeal erythema. No thyromegaly. CARDIOVASCULAR: S1 and S2 present. No murmurs, rubs, or gallops. PULMONARY: Chest is clear to auscultation, no wheezing or crackles. ABDOMEN: Soft, nontender, nondistended, normoactive bowel sounds. No palpable organomegaly. MUSCULOSKELETAL: No joint swelling or deformity. EXTREMITIES: No cyanosis, clubbing, or pedal edema. NEUROLOGICAL: Gross neurological examination did not reveal any focal deficits. SKIN: No rashes. - Labs CBC & Chem 7: 09/16/21 09:02 09/16/21 09:02 Labs: Abnormal Lab Results - Last 24 Hours (Table) 09/15/21 09/15/21 09/16/21 Range/Units 17:13 20:15 06:17 WBC (3.8-10.6) k/uL MCV (80.0-100.0) fL MCHC (31.0-37.0) g/dL Plt Count (150-450) k/uL Potassium (3.5-5.1) mmol/L BUN (9-20) mg/dL Creatinine (0.66-1.25) mg/dL Glucose (74-99) mg/dL POC Glucose (mg/dL) 425 H 399 H 229 H (75-99) mg/dL Calcium (8.4-10.2) mg/dL C-Reactive Protein (<1.0) mg/dL 09/16/21 09/16/21 09/16/21 Range/Units 09:02 09:02 11:49 WBC 15.9 H (3.8-10.6) k/uL MCV 101.4 H (80.0-100.0) fL MCHC 30.9 L (31.0-37.0) g/dL Plt Count 93 L (150-450) k/uL Potassium 3.4 L (3.5-5.1) mmol/L BUN 126 H* (9-20) mg/dL Creatinine 3.31 H (0.66-1.25) mg/dL Glucose 273 H (74-99) mg/dL POC Glucose (mg/dL) 306 H (75-99) mg/dL Calcium 8.2 L (8.4-10.2) mg/dL C-Reactive Protein 4.9 H (<1.0) mg/dL Microbiology - Last 24 Hours (Table) 09/13/21 14:41 Stool Culture - Preliminary Stool 09/12/21 12:34 Blood Culture - Preliminary Blood No Growth after 72 hours Assessment and Plan Assessment: Abdominal distention due to ascites status post paracentesis with 2.2 L fluid removal Alcoholic liver cirrhosis suspicious multiple liver metastatic lesions as per Recent history of PET scan on 08/20/21 . chronic CHF with diastolic dysfunction Recently diagnosed lung nodules with abdominal CT chest.. Supposed to follow with pulmonary clinic. s/p outpatient PET scan on 08/20/2021 Hyperglycemia with uncontrolled diabetes type 2 Elevated troponin level unlikely ACS. Hyponatremia likely hypervolemic. Possible SIADH cannot be excluded. Bilateral small pleural effusions with recent history of right thoracentesis Chronic postnasal drip Persistent atrial fibrillation on anticoagulation with xarelto. Was on hold for persistent nosebleeds. Cardiology recommends to start back on xarelto. Sick sinus syndrome with history of permanent pacemaker placement coronary artery disease history of stent placement to circumflex Hypertension Hyperlipidemia Chronic hypoxic respiratory failure secondary to COPD Previous history of smoking History of liver cirrhosis DVT prophylaxis Full code Plan: Patient is status post paracentesis with 2.2 L fluid removal. Cell count and d ifferential showed no evidence of SBP. Follow-up fluid culture and cytology report. Replace electrolytes and patient will be started back on Lasix and spironolactone. Monitor renal function. Continue with home medications and follow-up closely. Pulmonary and cardiology was consulted. Prognosis guarded at this time.
[2021-09-17 06:19] LABS: Glucose,Whole Blood 85 mg/dL (75-99)
[2021-09-17] MEDS: PANTOPRAZOLE 40 MG TABLET PO SCH (06:26)
[2021-09-17] MEDS: INSULIN ASPART (NovoLOG) 100 UNIT/ML VIAL SQ SCH ×4 (06:27→21:08)
[2021-09-17] MEDS: SODIUM CHLORIDE 0.9% 1,000 ML IV SCH (06:37)
[2021-09-17] MEDS: IPRATROPIUM-ALBUTEROL 3 ML NEB INHALATION SCH ×4 (07:23→21:00)
[2021-09-17] MEDS: SYMBICORT 160-4.5 MCG INHALER INHALATION SCH ×2 (07:23→21:00)
[2021-09-17 07:26] LABS: Glucose,Whole Blood 45 mg/dL (75-99)
[2021-09-17] MEDS: DILTIAZEM 125 MG in SODIUM CHLORIDE 0.9% 100 ML IV SCH (07:33)
[2021-09-17 07:46] LABS: Glucose,Whole Blood 65 mg/dL (75-99)
[2021-09-17 08:04] LABS: Glucose,Whole Blood 106 mg/dL (75-99)
[2021-09-17] MEDS: AZTREONAM 2 GM in SODIUM CHLORIDE 0.9% 100 ML IVPB SCH ×2 (10:35→18:11)
[2021-09-17] MEDS: METOPROLOL TARTRATE 50 MG TAB PO SCH ×2 (10:37→21:08)
[2021-09-17] MEDS: hydrALAZINE HCL 25 MG TAB PO SCH (10:38)
[2021-09-17] MEDS: FLECAINIDE 50 MG TAB PO SCH ×2 (10:38→21:08)
[2021-09-17] MEDS: allopurinoL 100 MG TAB PO SCH (10:38)
[2021-09-17] MEDS: ISOSORBIDE MONONITRATE ER 30 MG TAB.ER.24H PO SCH (10:39)
[2021-09-17] MEDS: FUROSEMIDE 10 MG/ML 4 ML VIAL IV SCH ×2 (10:40→21:08)
--- NOTE | 2021-09-17 11:01 | P.PN ---
Subjective This is a 75 year old with a past medical history significant for coronary artery disease status post PCI to the diagonal branch and circumflex, paroxysmal atrial fibrillation not on anticoagulation secondary to nosebleeds, sick sinus syndrome status post pacemaker, diabetes, chronic kidney disease, hypertension, diastolic heart failure, COPD, and former nicotine dependence. Patient follows in the office with Dr. Morgan. We have been re-consulted to see the patient in consultation for atrial fibrillation with RVR. Patient initially presented to the hospital with increased abdominal distention. Patient underwent paracentesis by interventional radiology with removal of 2.2 L of serous fluid. Overnight patient went atrial fibrillation with rapid ventricular response. He is currently in atrial fibrillation with uncontrolled rates. His PO cardizem has been discontinued, he is currently on IV Cardizem at 5mg/hr. The patient has been confirmed to have metastatic small cell lung cancer. The patient's liver biopsy came back positive for small cell lung cancer. DIAGNOSTICS Chest xray patchy bilateral infiltrates correlate for multifocal pneumonia. Neoplasm not excluded. Laboratory datafrom 09/16 revealed WBC 15.9, hemoglobin 13.5, platelets 73, sodium 137, potassium 3.7, BUN 126, serum creatinine 2.3, magnesium 2.8 Current home cardiac medications include hydralazine 100 mg 3 times a day, Cardizem 90 mg twice a day, Aldactone 12.5 mg daily, Pravachol 20 mg daily, metoprolol tartrate 50 g twice a day, Imdur 30 mg daily, Lasix 80 mg the morning and 40 mg in the afternoon, flecainide 100 mg twice a day, and aspirin 81 mg daily Most recent echocardiogram obtained in June 2021 reveals ejection fraction 55- 60%, mild aortic stenosis, mild mitral regurgitation, mild tricuspid regurgitation PHYSICAL EXAM: VITAL SIGNS: 108/53 HR 163, afebrile, on 2L nasal cannula 96% GENERAL: Well-developed in no acute distress. HEENT: Head is normocephalic. Pupils are equal, round. Sclerae anicteric. Mucous membranes of the mouth are moist. Neck supple. No JVD or thyromegaly LUNGS: Respirations even and unlabored. Lungs diminished to auscultation bilaterally. HEART: Regular rate and rhythm. S1 and S2 heard. ABDOMEN: Soft. Distended. Ascites. Nontender EXTREMITIES: Normal range of motion. No clubbing or cyanosis. Peripheral pulses intact. Trace bilateral lower extremity edema NEUROLOGIC: Awake and alert. Oriented x 3. ASSESSMENT: Ascites, status post paracentesis Metastatic Small Cell Lung cancer and hepatic metastases- per oncology pathology reviewed from liver biopsy positive for small cell lung cancer Coronary artery disease with previous PCI Acute on Chronic kidney disease Acute on Chronic diastolic heart failure with preserved ejection fraction Paroxysmal atrial fibrillation, with rapid ventricular response not on anticoagulation due to nosebleeds COPD Hypertension Diabetes type 2 PLAN: -Start the patient on IV Lasix 40mg BID -Discontinue Spironolactone -Increase metoprolol tartarte to 75mg BID -Wean cardizem drip -Patient not on anticoagulation as noted above. -Continue hydralazine 25 mg twice a day, Imdur 30 mg daily. -Further recommendations based on clinical course Nurse practitioner note has been reviewed by physician. Signing provider agrees with the documented findings, assessment, and plan of care. Objective - Vital Signs Vital signs: Vital Signs Temp 97.2 F L 09/17/21 08:00 Pulse 163 H 09/17/21 08:00 Resp 16 09/17/21 08:00 BP 108/53 09/17/21 08:00 Pulse Ox 96 09/17/21 08:00 Intake & Output 09/16/21 09/17/21 09/17/21 18:59 06:59 18:59 Intake Total 1310 360 Balance 1310 360 Weight 86.5 kg Intake: IV 450 Sodium Chloride 0.9% 1, 450 000 ml @ 50 mls/hr IV . Q20H [facility] Rx#:[id number] Intake, IV Titration 200 Amount Aztreonam 2 gm In Sodium 200 Chloride 0.9% 100 ml @ 33 .3 mls/hr IVPB Q8HR [facility] Rx#:[id number] Oral 660 360 Other: Voiding Method Bedside Commode Urinal # Voids 1 1 1 # Bowel Movements 1 1 1 - Labs CBC & Chem 7: 09/16/21 09:02 09/16/21 09:02 Labs: Abnormal Lab Results - Last 24 Hours (Table) 09/16/21 09/16/21 09/16/21 Range/Units 09:02 09:02 11:49 Neutrophils # 14.7 H (1.3-7.7) k/uL Lymphocytes # 0.5 L (1.0-4.8) k/uL POC Glucose (mg/dL) 306 H (75-99) mg/dL C-Reactive Protein 4.9 H (<1.0) mg/dL 09/16/21 09/16/21 09/17/21 Range/Units 16:52 19:46 07:25 Neutrophils # (1.3-7.7) k/uL Lymphocytes # (1.0-4.8) k/uL POC Glucose (mg/dL) 206 H 236 H 45 L (75-99) mg/dL C-Reactive Protein (<1.0) mg/dL 09/17/21 09/17/21 Range/Units 07:45 08:03 Neutrophils # (1.3-7.7) k/uL Lymphocytes # (1.0-4.8) k/uL POC Glucose (mg/dL) 65 L 106 H (75-99) mg/dL C-Reactive Protein (<1.0) mg/dL Microbiology - Last 24 Hours (Table) 09/13/21 14:41 Stool Culture - Final Stool 09/12/21 12:34 Blood Culture - Preliminary Blood No Growth after 96 hours
[2021-09-17 11:31] LABS: Glucose,Whole Blood 225 mg/dL (75-99)
--- NOTE | 2021-09-17 12:15 | P.PN ---
Subjective Progress Note Date: 09/17/21 Principal diagnosis: Suspected metastatic lung cancer status post liver biopsy 66-year-old male, who presents to the emergency department, on September 06, complaining of shortness of breath, and increasing abdominal distention. The patient has a history of a lung mass, with multiple lesions in the liver, consistent with metastatic disease. Unfortunately, he has not had his CT-guided fine-needle biopsy of his liver lesions, which hopefully will give us a diagnosis and a stage. The patient does have a history of CHF, and COPD. He sees Dr. Valentine, as a primary. Recently, the patient's health has been declining, and is been in and out of the hospital multiple times recently. He denies any fever or chills. He denies any chest pain. He does admit to some recent diarrhea. He apparently is in palliative care. A paracentesis abdominis was done, and 2 L of fluid was removed. He is currently on 2 L nasal cannula. He's not receiving any IV fluids. Cytology from the ascitic fluid is pending. In addition, the patient has a history of atrial fibrillation, coronary artery disease, heart failure, COPD, diabetes mellitus, GERD, hyperlipidemia, hypertension, myocardial infarction, status post pacemaker insertion, diabetic neuropathy, chronic kidney disease, liver cirrhosis, and celiac disease, as well as dermatitis herpetiformis. White count of 17.5, hemoglobin 12.7, hematocrit 39.8, and platelet count 129,000. Sodium 136, potassium 3.9, chlorides 97, CO2 30, anion gap 9, BUN 72, creatinine 2.24. AST is 123, ALT is 185. Albumin is 3.1. Chest x-ray shows bilateral patchy infiltrates, likely related to underlying malignancy rather than pneumonia. CT of the abdomen and pelvis show evidence of ascites, small bilateral pleural effusions, and multiple nodules within the lung tobias. Progress note dated 09/09/2021. 66-year-old male, who presented with shortness of breath, and increasing abdominal distention. The patient had a paracentesis abdominis, performed by interventional radiology. 2.2 L of fluid was removed. The fluid cytology was negative. The patient has a lesion in his left lung, and multiple lesions in his liver on PET scan. We are thinking that his primary diagnosis is lung cancer with metastasis. He will still likely need a CT-guided fine-needle aspiration of a liver lesion, which would give us both a diagnosis and a staged. The patient's overall health in the last 6-8 weeks, has significantly declined, and he has had multiple admissions in the hospital. Currently, he is on room air. White count 22.1, hemoglobin 14.4, hematocrit 42.7, and platelet count 165,000. Sodium 137, potassium 3.4, chlorides 97, CO2 31, anion gap 9, BUN 72, and creatinine 2.35. the patient is seen today 09/11/2021 in follow-up on the selective care unit. He is currently resting comfortably in bed. No acute distress. He did undergo a liver biopsy by interventional radiology yesterday. Pathology pending. he is currently maintaining O2 saturation in the 90s on room air. He mechanically stable. Afebrile. White count 20.0. Hemoglobin 14.2. Sodium 134. Potassium 4.1. Creatinine 3.08. Glucose 220. AST 393. ALT 426. He is continued on DuoNeb inhalations, Symbicort, oral diuretics. On 09/12/2021 patient seen in follow-up on selective care unit, he is awake and alert, he is oriented 3, he appears weak, fatigued, a bit more jaundiced. He is status post fine-needle aspirate biopsy of the liver, and the pathology repo rt is still pending. Patient had a ultrasound-guided paracentesis on 09/07/2021 and 2.2 L of ascitic fluid was removed, with nondiagnostic cytology. Denies any respiratory difficulty, he is on 2 L of oxygen pulse ox 97%, he is afebrile, hemodynamically stable. Today's labs have been reviewed, his white blood cell, 17.7, hemoglobin is 14.6, sodium is 135, potassium is 3.8, chloride is 1, B1 is 102, creatinine is 3.01. His liver enzymes were trending up on yesterday's labs, and his AST was up to 393, ALT is 426, his alkaline phosphatase is 368. His hepatitis panel was nonreactive. Ascites fluid cultures were negative. No cough, no chest discomfort, patient remains on DuoNeb, Symbicort, he is on oral Lasix 60 mg twice daily. On 09/14/2021 patient seen in follow-up on selective care unit, patient's liver biopsy results are still pending. No acute events overnight, patient remains on 2 L of oxygen, he is mildly short of breath with conversation, and exertion, however this has remained stable. he denies any worsening abdominal distention although his abdomen is somewhat distended. 1+ lower extremity edema, nephrology is following, Lasix is currently on hold, patient continues on Aldactone. Today's labs have been reviewed, his renal function is about the same, creatinine is slightly improved, at 3.09 down from 3.201 yesterday's labs, B1 is 111, sodium is 136, potassium is 3.4, chloride is 97, his pro calcitonin level is elevated at 19.7, she is on aztreonam for antibiotic coverage. His ascites fluid ulcer was negative, blood and stool cultures have also been sent, so far showing no growth. Denies any chest discomfort, no cough, or significant phlegm production, he seems a little bit more upbeat today, answering questions, he was updated on the status of his biopsy. He is weak, but she was able to get up in the shower today, feeling better, tolerating oral intake. Today's evaluation on the 09/17/2021 patient seen in follow-up on the monitored bed on selective care unit. Appears to be very fatigued, but breathing fairly comfortably, his been having episodes of mild hemoptysis, he thinks it might be from the nosebleed developing continuous oxygen. He remains off anticoagulation, he is off the aspirin and Xarelto. Currently in sinus mechanism with a controlled rate. His recent liver biopsy was positive for small cell lung carcinoma with metastasis to the liver. He is awaiting discussion with medical oncology Dr. Alvarez regarding treatment. As an appointment with him at 2 PM in the hospital. He appears to be dyspneic at rest, no fever, he is very weak, he sleeps a lot, continues on diuretics with Lasix 40 mg every 12 hours, he is on empiric antibiotics. Cultures are negative this admission, his ascites fluid cultures have shown no growth. He is in negative fluid balance, room air pulse ox is 91%, and patient has been removing his suppleme ntal oxygen to avoid further and worsening of the nosebleed. No recent chest x- ray, lung sounds reveal some bibasilar crackles, no wheezing, no new labs, yesterday's labs showed worsening of his renal function, nephrology is following, follow up labs are pending for today. Objective - Vital Signs Vital signs: Vital Signs Temp 97.2 F L 09/17/21 08:00 Pulse 72 09/17/21 10:52 Resp 16 09/17/21 08:00 BP 123/61 09/17/21 10:47 Pulse Ox 96 09/17/21 08:00 Intake & Output 09/16/21 09/17/21 09/17/21 18:59 06:59 18:59 Intake Total 1310 360 Balance 1310 360 Weight 86.5 kg Intake: IV 450 Sodium Chloride 0.9% 1, 450 000 ml @ 50 mls/hr IV . Q20H ALONZO Rx#:[id number] Intake, IV Titration 200 Amount Aztreonam 2 gm In Sodium 200 Chloride 0.9% 100 ml @ 33 .3 mls/hr IVPB Q8HR ALONZO Rx#:[id number] Oral 660 360 Other: Voiding Method Bedside Commode Urinal # Voids 1 1 1 # Bowel Movements 1 1 1 - Exam GENERAL EXAM: Alert, very weak,, fatigued and slightly jaundiced 66-year-old white male, with pulse ox of 97% on 2 L comfortable in no apparent distress. HEAD: Normocephalic/atraumatic. EYES: Normal reaction of pupils, equal size. Conjunctiva pink, sclera white. NOSE: Clear with pink turbinates. THROAT: No erythema or exudates. NECK: No masses, no JVD, no thyroid enlargement, no adenopathy. CHEST: No chest wall deformity. Symmetrical expansion. LUNGS: Equal air entry with diminished breath sounds at the bases, with some mild crackles CVS: Regular rate and rhythm, normal S1 and S2, no gallops, no murmurs, no rubs ABDOMEN: Soft, nontender. No hepatosplenomegaly, normal bowel sounds, no guarding or rigidity. EXTREMITIES: No clubbing, plus lower extremity edema, no cyanosis, 2+ pulses and upper and lower extremities. MUSCULOSKELETAL: Muscle strength and tone normal. SPINE: No scoliosis or deformity SKIN: No rashes CENTRAL NERVOUS SYSTEM: Alert and oriented -3. No focal deficits, tone is normal in all 4 extremities. PSYCHIATRIC: Alert and oriented -3. Appropriate affect. Intact judgment and insight. - Labs CBC & Chem 7: 09/16/21 09:02 09/16/21 09:02 Labs: Abnormal Lab Results - Last 24 Hours (Table) 09/16/21 09/16/21 09/16/21 Range/Units 09:02 16:52 19:46 Neutrophils # 14.7 H (1.3-7.7) k/uL Lymphocytes # 0.5 L (1.0-4.8) k/uL POC Glucose (mg/dL) 206 H 236 H (75-99) mg/dL 09/17/21 09/17/21 09/17/21 Range/Units 07:25 07:45 08:03 Neutrophils # (1.3-7.7) k/uL Lymphocytes # (1.0-4.8) k/uL POC Glucose (mg/dL) 45 L 65 L 106 H (75-99) mg/dL 09/17/21 Range/Units 11:30 Neutrophils # (1.3-7.7) k/uL Lymphocytes # (1.0-4.8) k/uL POC Glucose (mg/dL) 225 H (75-99) mg/dL Microbiology - Last 24 Hours (Table) 09/13/21 14:41 Stool Culture - Final Stool 09/12/21 12:34 Blood Culture - Preliminary Blood No Growth after 96 hours Assessment and Plan Plan: Assessment: #1. Metastatic small cell lung carcinoma with metastasis to the liver, status post CT-guided fine-needle biopsy on 09/10/2021 by interventional radiology. #2. Status post large volume paracentesis, with negative cytology #3. History of underlying COPD, which is currently inactive and stable #4. History of paroxysmal atrial fibrillation on Xarelto, currently in sinus mechanism, patient is currently off aspirin and Xarelto #5. Coronary artery disease with previous stenting #6. History of chronic right hemidiaphragmatic elevation/processes #7. History of tachybradycardia syndrome status post pacemaker insertion #8. Hypertensive heart disease with LV concentric hypertrophy #9. Diabetes TYPE II diabetic neuropathy #10. Hypertension #12. Hyperlipidemia #13. Osteoarthritis #14. Chronic kidney disease #15. History of CHF with diastolic dysfunction Plan: Patient has been diagnosed with metastatic small cell lung cancer with metastasis to the liver Is awaiting discussion with medical oncology regarding treatment options this afternoon Continue current medical management Continue diuretics, remains on antibiotics, so far all his cultures are negative, ascites cultures are negative He is moderately dyspneic at rest, is alternating between 2 L of oxygen and room air Overall clinically he is very weak, fatigued, Nebulized bronchodilators, and Symbicort Await his further decision on the treatment after his discussion with medical oncology Overall prognosis is poor, Would recommend syncopal status, as the patient would be a poor candidate for life support should his condition worsen I performed a history & physical examination of the patient and discussed their management with my nurse practitioner, Jojo Langford. I reviewed the nurse practitioner's note and agree with the documented findings and plan of care. Lung sounds are positive for diffuse wheezes throughout the lung tobias. The findings and the impression was discussed with the patient. I attest to the documentation by the nurse practitioner. Time with Patient: Less than 30
[2021-09-17 15:15] LABS: Basophils % (A) 0 %; Eosinophils % (A) 0 %; HCT 42.4 % (39.0-53.0); HGB 13.3 gm/dL (13.0-17.5); Lymphocytes # (A) 0.7 k/uL (1.0-4.8); Lymphocytes % (A) 4 %; MCH 31.6 pg (25.0-35.0); MCHC 31.4 g/dL (31.0-37.0); MCV 100.7 fL (80.0-100.0); Macrocytosis Slight; Mean Platelet Volume 14.4; Monocytes # (A) 0.6 k/uL (0-1.0); Monocytes % (A) 3 %; Neutrophils # (A) 16.9 k/uL (1.3-7.7); Neutrophils % (A) 92 %; RBC 4.21 m/uL (4.30-5.90); RDW 15.8 % (11.5-15.5); WBC 18.4 k/uL (3.8-10.6)
[2021-09-17 15:17] LABS: Platelet Count 90 k/uL (150-450)
[2021-09-17 15:23] LABS: Albumin 2.5 g/dL (3.5-5.0); Calcium 8.1 mg/dL (8.4-10.2); Magnesium 2.9 mg/dL (1.6-2.3); Potassium 3.6 mmol/L (3.5-5.1); Total Bilirubin 7.4 mg/dL (0.2-1.3)
[2021-09-17 15:25] LABS: INR 1.4 (<1.2); Partial Thromboplastin Time 24.4 sec (22.0-30.0); Prothrombin Time 14.2 sec (9.0-12.0)
[2021-09-17 16:47] LABS: Glucose,Whole Blood 249 mg/dL (75-99)
--- NOTE | 2021-09-17 18:08 | PN ---
PROGRESS NOTE DATE OF SERVICE: 09/17/2021 REASON FOR FOLLOWUP: Leukocytosis, possible abdominal source. INTERVAL HISTORY: The patient is afebrile. The patient has been breathing comfortably. Complaining of feeling weak and tired today. No chest pain, shortness of breath or cough. Still having diarrhea. PHYSICAL EXAMINATION: Blood pressure 123/51 with a pulse of 72, temperature 97.2. General description is an elderly male lying in bed in no distress. RESPIRATORY SYSTEM: Unlabored breathing. Decreased intensity of breath sounds. No wheeze. HEART: S1, S2. Regular rate and rhythm. ABDOMEN: Soft. Mildly distended. No guarding or rigidity. LABS: Hemoglobin is 13.3, white count 18.4. Liver enzymes are elevated. Cultures have been negative. DIAGNOSTIC IMPRESSION AND PLAN: Patient with elevated white count in this patient who did have a concern for ascites possible cholangitis to be likely; however, culture remains negative and white count is trending up. Cultures were repeated. Antibiotic adjusted if needed. Continue supportive care. MMODL / IJN: [id number] /
[2021-09-17] MEDS: metroNIDAZOLE 500 MG TAB PO SCH ×2 (18:14→21:08)
[2021-09-17] MEDS: TAMSULOSIN 0.4 MG CAP.ER.24H PO SCH (18:14)
--- NOTE | 2021-09-17 20:08 | PN ---
PROGRESS NOTE Patient is seen for followup for acute kidney injury. His renal function continues to worsen over the last 3 days. Patient has been started on normal saline at 50 mL/hour. He has significant lower extremity edema. This morning he was also complaining of some shortness of breath. He has underlying liver cirrhosis with ascites. Urine output had been low. It appears that he had about 300 mL noted on bladder scan and therefore a Covarrubias catheter will be placed. Patient has lung nodules and a liver mass, and biopsy of the liver mass confirmed metastatic small-cell lung cancer. He is not confused. Oral intake is fair. Blood pressure is borderline, with systolic around 120s to 114 mmHg. Antihypertensive medications have been decreased to help with the kidney function. Patient is also maintained on Cardizem drip for atrial fibrillation with RVR. On examination today, blood pressure 114/68, heart rate 71 per minute. Patient is afebrile. EXAMINATION OF THE HEART: S1 and S2. EXAMINATION OF LUNGS: Decreased breath sounds at bilateral bases. Abdomen is distended with ascites, non-tender. Examination of lower extremities shows edema 2+ bilaterally. RESIDENTIAL REAL ESTATE ASSISTANT EXAM: Grossly intact. No asterixis noted. Labs show sodium 134, potassium 3.6, chloride 102. CO2 is 19, BUN 144, serum creatinine 3.63. ASSESSMENT: 1. Progressive acute kidney injury with borderline urine output, possible hepatorenal syndrome versus acute tubular necrosis. BUN remains disproportionately elevated. Patient was initially started on IV fluids, which he had for about 48 hours. Initially creatinine improved, but now it is worsening. This could be related to some degree of urine retention. A Covarrubias catheter will be placed and he will likely need paracentesis if there is significant ascitic fluid. Intraabdominal compartment syndrome is another possible etiology for worsening renal function. Given the significant progression of renal failure, patient will likely need renal replacement therapy in the next 2 to 3 days. This will need to be discussed in detail with the family in view of his underlying recent diagnosis of metastatic lung cancer with metastases to the liver. 2. Liver cirrhosis with history of EtOH abuse. 3. Atrial fibrillation with rapid ventricular response, maintained on Cardizem drip. PLAN: Insert Covarrubias catheter and continue with IV Lasix. I will discontinue the hydralazine, as the blood pressure is now staying 115 to 120 mmHg. Repeat labs in a.m. Need to consider renal replacement therapy. However, I do not believe patient is a good candidate for outpatient renal replacement therapy, and given his underlying diagnosis of metastatic lung cancer, it would definitely not add value to quality of life. MMXIMENA / CRUZN: [id number] /
[2021-09-17 20:13] LABS: Glucose,Whole Blood 302 mg/dL (75-99)
--- NOTE | 2021-09-17 20:41 | P.PN ---
Subjective Progress Note Date: 09/17/21 Principal diagnosis: Extensive stage small cell cancer Patient is lying in bed, RN is anticipating urinary catheter due to retention. edema remains present in extremities. Greatest in BLE. at bedside. Long discussion with patient and regarding treatment plan, absence of treatment, and goals of care. Unfortunate situation of an incurable disease they are aware of the rapid pace at which this cancer grows and the time sensitive decision on treating or not. They are aware that treating may potentially extend life and improve symptoms, however it could potentially shorten life. Hospice is appropriate decision as well if patient and choose this route. Objective - Vital Signs Vital signs: Vital Signs Temp 97.2 F L 09/17/21 08:00 Pulse 72 09/17/21 10:52 Resp 16 09/17/21 08:00 BP 123/61 09/17/21 10:47 Pulse Ox 96 09/17/21 08:00 Intake & Output 09/16/21 09/17/21 09/17/21 18:59 06:59 18:59 Intake Total 1310 360 Balance 1310 360 Weight 86.5 kg Intake: IV 450 Sodium Chloride 0.9% 1, 450 000 ml @ 50 mls/hr IV . Q20H ALONZO Rx#:[id number] Intake, IV Titration 200 Amount Aztreonam 2 gm In Sodium 200 Chloride 0.9% 100 ml @ 33 .3 mls/hr IVPB Q8HR ALONZO Rx#:[id number] Oral 660 360 Other: Voiding Method Bedside Commode Urinal # Voids 1 1 1 # Bowel Movements 1 1 1 - Exam - Constitutional Jaundice General appearance: Present: cooperative, no acute distress, thin - EENT Eyes: Present: anicteric sclerae, EOMI ENT: Present: hearing grossly normal - Respiratory Respiratory: bilateral: other (shallow breaths) - Cardiovascular Heart sounds: normal: S1, S2 - Peripheral edema leg Peripheral Edema: bilateral: 3+, Pitting - Gastrointestinal General gastrointestinal: Present: distended, soft - Neurologic Neurologic: Present: CNII-XII intact - Musculoskeletal Musculoskeletal: Present: generalized weakness - Psychiatric Psychiatric: Present: A&O x's 3, appropriate affect, intact judgment & insight - Labs CBC & Chem 7: 09/17/21 15:00 09/17/21 15:00 Labs: Abnormal Lab Results - Last 24 Hours (Table) 09/16/21 09/16/21 09/16/21 Range/Units 09:02 16:52 19:46 Neutrophils # 14.7 H (1.3-7.7) k/uL Lymphocytes # 0.5 L (1.0-4.8) k/uL POC Glucose (mg/dL) 206 H 236 H (75-99) mg/dL 09/17/21 09/17/21 09/17/21 Range/Units 07:25 07:45 08:03 Neutrophils # (1.3-7.7) k/uL Lymphocytes # (1.0-4.8) k/uL POC Glucose (mg/dL) 45 L 65 L 106 H (75-99) mg/dL 09/17/21 Range/Units 11:30 Neutrophils # (1.3-7.7) k/uL Lymphocytes # (1.0-4.8) k/uL POC Glucose (mg/dL) 225 H (75-99) mg/dL Microbiology - Last 24 Hours (Table) 09/13/21 14:41 Stool Culture - Final Stool 09/12/21 12:34 Blood Culture - Preliminary Blood No Growth after 96 hours Assessment and Plan (1) Hyperbilirubinemia Current Visit: Yes Status: Acute Code(s): E80.6 - OTHER DISORDERS OF BILIRUBIN METABOLISM SNOMED Code(s): 61853303 (2) Liver enzyme elevation Current Visit: Yes Status: Acute Code(s): R74.8 - ABNORMAL LEVELS OF OTHER SERUM ENZYMES SNOMED Code(s): 528587798 (3) Alcoholic cirrhosis of liver with ascites Current Visit: Yes Status: Acute Code(s): K70.31 - ALCOHOLIC CIRRHOSIS OF LIVER WITH ASCITES SNOMED Code(s): 352221493 (4) Ascites Current Visit: Yes Status: Acute Priority: High Code(s): R18.8 - OTHER ASCITES SNOMED Code(s): 689782500 (5) Lung mass Current Visit: Yes Status: Acute Priority: High Code(s): R91.8 - OTHER NONSPECIFIC ABNORMAL FINDING OF LUNG FIELD SNOMED Code(s): 105755340 Plan: Assessment and Plan Extensive Stage Small cell lung cancer - Progressive through liver - Awaiting patient and decision on treatment goal: Chemotherapy versus Hospice care - All risks and potential benefits discussed in detail with patient and this evening, including possibility of treatment shortening life. Current Visit: Yes Status: Acute Priority: High Code(s): C34.90 - MALIGNANT NEOPLASM OF UNSP PART OF UNSP BRONCHUS OR LUNG SNOMED Code(s): 369762950 Ascites - Recurrent. - Previous analysis on fluid was neg for malignancy. - Continue therapeutic paracentesis PRN Current Visit: Yes Status: Acute Priority: High Code(s): R18.8 - OTHER ASCITES SNOMED Code(s): 572211825 Plan: - Recheck Liver function and coags - Monitor CBC Daily - Supportive care and Overall Goal of comfort regardless of treatment plan with chemo or hospice physician Attest: I have completed the full history and physical and agree with above dictation
[2021-09-17] MEDS: MIRTAZAPINE 15 MG TAB PO SCH (21:06)
[2021-09-17] MEDS: MONTELUKAST 10 MG TAB PO SCH (21:08)
[2021-09-17] MEDS: INSULIN DETEMIR (LEVEMIR) 100 UNIT/ML SYR SQ SCH (21:09)
[2021-09-17] MEDS: ZOLPIDEM 5 MG TAB PO PRN (21:19)
--- NOTE | 2021-09-17 22:25 | P.PN ---
Subjective Progress Note Date: 09/17/21 Principal diagnosis: Abdominal distention 66-year-old male with a known history of COPD on home oxygen, recent lung mass on CT chest on follow up with pulmonary, persistent atrial fibrillation on anticoagulation with xarelto, sick sinus syndrome with history of permanent pacemaker placement, coronary artery disease history of stent placement to circumflex, diabetes type 2 insulin-dependent, hypertension, hyperlipidemia, chronic CHF with diastolic dysfunction and previous history of smoking and alcohol use presents to ER with complaints of Abdominal distention. Patient do es have a history of liver cirrhosis due to previous history of alcohol abuse. Patient had previous admissions with acute on chronic CHF with diastolic dysfunction and also history of lung nodules. Patient is supposed to get biopsy of the lung nodule. Patient had previous history of right-sided pleural effusion and thoracentesis. Patient was recently discharged in the hospital on 08/19/2021. Patient had PET scan on 08/20/2021 showed high stage neoplasm with cirrhotic liver-multiple hypermetabolic dialysis could reflect metastatic disease. Abnormal left lung mass with thoracic adenopathy. Chest x-ray showed patchy bilateral infiltrate correlate for multifocal pneumonia. Neoplasm not excluded. CT of the abdomen pelvis showed ascites, small bilateral pleural effusions, multiple nodules within the visualized lung bases. Clinical consideration for colitis in the right upper quadrant is recommended. Laboratory data showed WBC 13.6 hemoglobin 12.6 and platelets 152 Sodium 130 potassium 3.9 chloride 93 BUN 64 and creatinine 1.9 Blood sugar is 314 Calcium 8.0 09/11/2021 Patient is seen and evaluated in follow-up on the selective care unit. He is currently resting comfortably in bed. No acute distress. He did undergo a liver biopsy by interventional radiology yesterday; continues to complain of discomfort at biopsy site. Pathology pending. he is currently maintaining O2 saturation in the 90s on room air. White count 20.0. Hemoglobin 14.2. Sodium 134. Potassium 4.1. Creatinine 3.08. Glucose 220. AST 393. ALT 426. He is continued on DuoNeb inhalations, Symbicort, oral diuretics. 09/12/2021 Patient is seen and evaluated in room at bedside and discussed with nursing staff in great detail; according to RN, patient has been quite weak and depressed and wanting to stay in chair; I did have a long discussion with patience wong regarding further testing and goals of care; patient does state that he feels depressed and hopeless due to recent diagnosis; psych consultation was advised and patient is agreeable to try Patient has undergone liver biopsy and results are pending; liver enzymes are continuing to trend up; hepatitis panel is nonreactive; WBC is trending up also; ascites fluid culture was unremarkable; ID is consulted and recommending to obtain stool for C. diff and culture; patient has been empirically started on antibiotics in form of Azactam and Flagyl; we will continue to monitor and further recommendations forthcoming 09/13/2021 Patient is seen and evaluated resting comfortably in bed; is at bedside and has numerous questions which were answered to her satisfaction Psych evaluation is discussed with and she is agreeable Patient remains quite depressed and has been evaluated by psychiatry but patient refuses any; medications at this time supportive psychotherapy was given We await results for liver biopsy for any further evaluation and recommendations 09/14/2021 Patient is seen and evaluated in room with at bedside, patient's liver biopsy results are still pending; patient denies any specific complaints Vital signs are reviewed with temperature 90.8, pulse 95, respiration 18 and blood pressure 131/66; patient remains on 2 L of oxygen Nephrology is following, Lasix is currently on hold, patient continues on Aldactone. labs have been reviewed, creatinine is slightly improved, at 3.09 down from 3.201 yesterday's labs, BUN is 111, sodium is 136, potassium is 3.4, chloride is 97, his pro calcitonin level is elevated at 19.7, she is on aztreonam for antibiotic coverage. His ascites fluid ulcer was negative, blood and stool cultures have also been sent, so far showing no growth. 09/15/2021 Patient is seen and evaluated in follow-up with nursing staff at bedside. Currently sitting up at the site of his bed. Complaints of 2 episodes of diarrhea since morning; per nursing staff stool wasn't foul-smelling; likely related to antibiotic use. Awake and alert in no acute distress; continues to complain of abdominal distention and discomfort. Liver biopsy pathology results still pending. Vital signs are stable with temperature 97.7, pulse 62, respiration 18 and blood pressure 122/63, O2 saturation 98% Sodium 134. Potassium 3.3. BUN 118. Creatinine 2.88. Glucose 364. Calcium 7.9. Patient remains on Symbicort, DuoNeb inhalations. Antibiotics in the form of aztreonam, Flagyl. Nephrology on board for acute renal injury likely related to diuresis and slowly improving. IV hydration with normal saline at a rate of 50 mL an hour; BUN/creatinine disproportionately elevated; no evidence of GI bleed ID is recommending to continue current dose of Azactam and Flagyl started empirically for possible abdominal source of infection 09/16/2021 Patient was seen and evaluated with the nursing staff. Patient was confirmed to have metastatic lung cancer due to the positive liver biopsy. The patient had a lobulated mass around 4 x 3 cm in the left midlung and left hilar and suprahilar hilar metabolic lymphadenopathy along with hepatitic metastases which was confirmed by a fine-needle aspiration. The patient also suffers from bilateral pleural effusion and ascites. The ascitic fluid came back negative for malignancy. Patient is fatigued, low energy, and has a low appetite. Patient is afebrile. Quite fatigued and debilitated and has low energy and appetite and continues to lose weight. He is afebrile. 09/17/2021 Patient was seen and evaluated at bedside. Patient's liver biopsy came back positive for metastatic lung cancer. Patient appear to be fatigued but is respirating normally. Patient complains of mild hemoptysis which may be from the nosebleed developing from the continuous oxygen. Patient is off anticoagulation, off aspirin, and even the Xarelto. Patient's liver biopsy is positive for small cell lung carcinoma which has metastasized to the liver. Patient and family are waiting for Dr. Alvarez, medical oncologist, to discuss the prognosis, treatment, etc. Patient is dyspneic at rest, but is afebrile. Patient is continued on diuretics with Lasix and also on empiric antibiotics. Ascitic fluid cultures are not showing any abnormal growth. Patient's pulse ox is 91%. Patient has been removed from supplemental oxygen to prevent worsening of the nosebleed. Lung sounds reveal some bibasilar crackles. Yesterday's lab results showed worsening of renal function for which nephrology will follow up and follow up lab results are pending for today. Objective - Vital Signs Vital signs: Vital Signs Temp 97.2 F L 09/17/21 08:00 Pulse 72 09/17/21 10:52 Resp 16 09/17/21 08:00 BP 123/61 09/17/21 10:47 Pulse Ox 96 09/17/21 08:00 Intake & Output 09/16/21 09/17/21 09/17/21 18:59 06:59 18:59 Intake Total 1310 360 Balance 1310 360 Weight 86.5 kg Intake: IV 450 Sodium Chloride 0.9% 1, 450 000 ml @ 50 mls/hr IV . Q20H ALONZO Rx#:[id number] Intake, IV Titration 200 Amount Aztreonam 2 gm In Sodium 200 Chloride 0.9% 100 ml @ 33 .3 mls/hr IVPB Q8HR ALONZO Rx#:[id number] Oral 660 360 Other: Voiding Method Bedside Commode Urinal # Voids 1 1 1 # Bowel Movements 1 1 1 - Exam PHYSICAL EXAMINATION: GENERAL: The patient is alert and oriented x3, not in any acute distress. Well developed, well nourished. HEENT: Pupils are round and equally reacting to light. EOMI. No scleral icterus. No conjunctival pallor. Normocephalic, atraumatic. No pharyngeal erythema. No thyromegaly. CARDIOVASCULAR: S1 and S2 present. No murmurs, rubs, or gallops. PULMONARY: Chest is clear to auscultation, no wheezing or crackles. ABDOMEN: Soft, nontender, nondistended, normoactive bowel sounds. No palpable organomegaly. MUSCULOSKELETAL: No joint swelling or deformity. EXTREMITIES: No cyanosis, clubbing, or pedal edema. NEUROLOGICAL: Gross neurological examination did not reveal any focal deficits. SKIN: No rashes. - Labs CBC & Chem 7: 09/17/21 15:00 09/17/21 15:00 Labs: Abnormal Lab Results - Last 24 Hours (Table) 09/16/21 09/16/21 09/16/21 Range/Units 09:02 16:52 19:46 Neutrophils # 14.7 H (1.3-7.7) k/uL Lymphocytes # 0.5 L (1.0-4.8) k/uL POC Glucose (mg/dL) 206 H 236 H (75-99) mg/dL 09/17/21 09/17/21 09/17/21 Range/Units 07:25 07:45 08:03 Neutrophils # (1.3-7.7) k/uL Lymphocytes # (1.0-4.8) k/uL POC Glucose (mg/dL) 45 L 65 L 106 H (75-99) mg/dL 09/17/21 Range/Units 11:30 Neutrophils # (1.3-7.7) k/uL Lymphocytes # (1.0-4.8) k/uL POC Glucose (mg/dL) 225 H (75-99) mg/dL Microbiology - Last 24 Hours (Table) 09/13/21 14:41 Stool Culture - Final Stool 09/12/21 12:34 Blood Culture - Preliminary Blood No Growth after 96 hours Assessment and Plan Assessment: Abdominal distention due to ascites status post paracentesis with 2.2 L fluid removal Alcoholic liver cirrhosis suspicious multiple liver metastatic lesions as per Recent history of PET scan on 08/20/21 . chronic CHF with diastolic dysfunction Recently diagnosed lung nodules with abdominal CT chest.. Supposed to follow with pulmonary clinic. s/p outpatient PET scan on 08/20/2021 Hyperglycemia with uncontrolled diabetes type 2 Elevated troponin level unlikely ACS. Hyponatremia likely hypervolemic. Possible SIADH cannot be excluded. Bilateral small pleural effusions with recent history of right thoracentesis Chronic postnasal drip Persistent atrial fibrillation on anticoagulation with xarelto. Was on hold for persistent nosebleeds. Cardiology recommends to start back on xarelto. Sick sinus syndrome with history of permanent pacemaker placement coronary artery disease history of stent placement to circumflex Hypertension Hyperlipidemia Chronic hypoxic respiratory failure secondary to COPD Previous history of smoking History of liver cirrhosis DVT prophylaxis Full code Plan: Patient is status post paracentesis with 2.2 L fluid removal. Cell count and differential showed no evidence of SBP. Follow-up fluid culture and cytology report. Replace electrolytes and patient will be started back on Lasix and spironolac tone. Monitor renal function. Continue with home medications and follow-up closely. Pulmonary and cardiology was consulted. Prognosis guarded at this time.
[2021-09-18] MEDS: AZTREONAM 2 GM in SODIUM CHLORIDE 0.9% 100 ML IVPB SCH ×3 (00:32→16:33)
[2021-09-18 06:07] LABS: Glucose,Whole Blood 279 mg/dL (75-99)
[2021-09-18] MEDS: DILTIAZEM 125 MG in SODIUM CHLORIDE 0.9% 100 ML IV SCH (06:16)
[2021-09-18] MEDS: INSULIN ASPART (NovoLOG) 100 UNIT/ML VIAL SQ SCH ×4 (07:18→21:45)
[2021-09-18] MEDS: PANTOPRAZOLE 40 MG TABLET PO SCH (07:18)
[2021-09-18] MEDS: IPRATROPIUM-ALBUTEROL 3 ML NEB INHALATION SCH ×4 (08:13→20:06)
[2021-09-18] MEDS: SYMBICORT 160-4.5 MCG INHALER INHALATION SCH ×2 (08:16→20:06)
[2021-09-18 08:31] LABS: Albumin 2.4 g/dL (3.5-5.0); Calcium 8.2 mg/dL (8.4-10.2); Potassium 4.1 mmol/L (3.5-5.1); Total Bilirubin 8.1 mg/dL (0.2-1.3); Total Protein 4.9 g/dL (6.3-8.2)
[2021-09-18 08:38] LABS: INR 1.5 (<1.2); Partial Thromboplastin Time 25.4 sec (22.0-30.0); Prothrombin Time 14.8 sec (9.0-12.0)
[2021-09-18 08:42] LABS: Anisocytosis Slight; Basophils % (A) 0 %; Eosinophils % (A) 0 %; HCT 41.1 % (39.0-53.0); HGB 13.2 gm/dL (13.0-17.5); Lymphocytes # (A) 0.5 k/uL (1.0-4.8); Lymphocytes % (A) 3 %; MCH 31.8 pg (25.0-35.0); MCHC 32.2 g/dL (31.0-37.0); MCV 98.9 fL (80.0-100.0); Macrocytosis Slight; Mean Platelet Volume 15.7; Monocytes # (A) 0.4 k/uL (0-1.0); Monocytes % (A) 3 %; Neutrophils # (A) 13.6 k/uL (1.3-7.7); Neutrophils % (A) 93 %; Platelet Count 91 k/uL (150-450); RBC 4.16 m/uL (4.30-5.90); RDW 16.4 % (11.5-15.5); WBC 14.5 k/uL (3.8-10.6)
--- NOTE | 2021-09-18 09:08 | P.PN ---
Subjective Progress Note Date: 09/18/21 Principal diagnosis: Coronary artery disease This is a 66-year-old gentleman with multiple medical conditions includes metastatic lung cancer as well as coronary artery disease as well as paroxysmal atrial fibrillation as well as multiple comorbid conditions. He was seen yesterday when he was started on Lasix IV. Today he states he is feeling slightly better. The lower extremities edema is a slightly better. He still have diminished breathing sounds bilaterally on examination. Nephrology is on the case. No blood work including CBC or BMP as of this morning. We'll continue monitor the kidney function. We stopped the spironolactone because he was not responding to it. Also increase the dose of metoprolol to 75 mg by mouth twice a day. We will stop the Cardizem drip today. Objective - Vital Signs Vital signs: Vital Signs Temp 97.5 F L 09/18/21 04:00 Pulse 82 09/18/21 08:24 Resp 18 09/18/21 04:00 BP 112/57 09/18/21 04:00 Pulse Ox 96 09/18/21 04:00 Intake & Output 09/17/21 09/18/21 09/18/21 18:59 06:59 18:59 Intake Total 600 Output Total 420 Balance 600 -420 Weight 85 kg Intake: Oral 600 Output: Urine 420 Other: Voiding Method Bedside Commode Indwelling Catheter Indwelling Catheter Urinal # Voids 1 # Bowel Movements 1 - Constitutional General appearance: Present: no acute distress - Respiratory Respiratory: bilateral: diminished - Cardiovascular Rhythm: irregularly irregular Heart sounds: normal: S1, S2 - Labs CBC & Chem 7: 09/18/21 07:01 09/17/21 15:00 Labs: Abnormal Lab Results - Last 24 Hours (Table) 09/17/21 09/17/21 09/17/21 Range/Units 11:30 15:00 15:00 WBC 18.4 H (3.8-10.6) k/uL RBC 4.21 L (4.30-5.90) m/uL MCV 100.7 H (80.0-100.0) fL RDW 15.8 H (11.5-15.5) % Plt Count 90 L (150-450) k/uL Neutrophils # 16.9 H (1.3-7.7) k/uL Lymphocytes # 0.7 L (1.0-4.8) k/uL PT 14.2 H (9.0-12.0) sec INR 1.4 H (<1.2) Sodium (137-145) mmol/L Carbon Dioxide (22-30) mmol/L BUN (9-20) mg/dL Creatinine (0.66-1.25) mg/dL Glucose (74-99) mg/dL POC Glucose (mg/dL) 225 H (75-99) mg/dL Calcium (8.4-10.2) mg/dL Magnesium (1.6-2.3) mg/dL Total Bilirubin (0.2-1.3) mg/dL AST (17-59) U/L ALT (4-49) U/L Alkaline Phosphatase (38-126) U/L Total Protein (6.3-8.2) g/dL Albumin (3.5-5.0) g/dL 09/17/21 09/17/21 09/17/21 Range/Units 15:00 16:46 20:11 WBC (3.8-10.6) k/uL RBC (4.30-5.90) m/uL MCV (80.0-100.0) fL RDW (11.5-15.5) % Plt Count (150-450) k/uL Neutrophils # (1.3-7.7) k/uL Lymphocytes # (1.0-4.8) k/uL PT (9.0-12.0) sec INR (<1.2) Sodium 134 L (137-145) mmol/L Carbon Dioxide 19 L (22-30) mmol/L BUN 144 H* (9-20) mg/dL Creatinine 3.63 H (0.66-1.25) mg/dL Glucose 244 H (74-99) mg/dL POC Glucose (mg/dL) 249 H 302 H (75-99) mg/dL Calcium 8.1 L (8.4-10.2) mg/dL Magnesium 2.9 H (1.6-2.3) mg/dL Total Bilirubin 7.4 H (0.2-1.3) mg/dL AST 62 H (17-59) U/L ALT 90 H (4-49) U/L Alkaline Phosphatase 354 H (38-126) U/L Total Protein 5.0 L (6.3-8.2) g/dL Albumin 2.5 L (3.5-5.0) g/dL 09/18/21 09/18/21 09/18/21 Range/Units 06:05 07:01 07:01 WBC 14.5 H (3.8-10.6) k/uL RBC 4.16 L (4.30-5.90) m/uL MCV (80.0-100.0) fL RDW 16.4 H (11.5-15.5) % Plt Count 91 L (150-450) k/uL Neutrophils # (1.3-7.7) k/uL Lymphocytes # (1.0-4.8) k/uL PT 14.8 H (9.0-12.0) sec INR 1.5 H (<1.2) Sodium (137-145) mmol/L Carbon Dioxide (22-30) mmol/L BUN (9-20) mg/dL Creatinine (0.66-1.25) mg/dL Glucose (74-99) mg/dL POC Glucose (mg/dL) 279 H (75-99) mg/dL Calcium (8.4-10.2) mg/dL Magnesium (1.6-2.3) mg/dL Total Bilirubin (0.2-1.3) mg/dL AST (17-59) U/L ALT (4-49) U/L Alkaline Phosphatase (38-126) U/L Total Protein (6.3-8.2) g/dL Albumin (3.5-5.0) g/dL Microbiology - Last 24 Hours (Table) 09/12/21 12:34 Blood Culture - Preliminary Blood No Growth after 120 hours 09/13/21 14:41 Stool Culture - Final Stool Assessment and Plan Assessment: Assessment #1 a cystitis #2 metastatic small cell lung cancer #3 coronary artery disease #4 acute exacerbation of heart failure with preserved ejection fraction #5 paroxysmal atrial fibrillation #6 multiple comorbid conditions Plan #1 continue the current dose of Lasix IV #2 continue monitor the kidney function and electrolytes #3 DC Cardizem IV #4 follow-up with the patient
[2021-09-18] MEDS: metroNIDAZOLE 500 MG TAB PO SCH ×3 (10:28→21:46)
[2021-09-18] MEDS: FLECAINIDE 50 MG TAB PO SCH ×2 (10:30→21:44)
[2021-09-18] MEDS: FUROSEMIDE 10 MG/ML 4 ML VIAL IV SCH (10:30)
[2021-09-18] MEDS: METOPROLOL TARTRATE 50 MG TAB PO SCH ×2 (10:30→21:44)
[2021-09-18] MEDS: allopurinoL 100 MG TAB PO SCH (10:30)
[2021-09-18] MEDS: ISOSORBIDE MONONITRATE ER 30 MG TAB.ER.24H PO SCH (10:30)
[2021-09-18 11:15] LABS: Large Platelets Present
[2021-09-18 11:42] LABS: Glucose,Whole Blood 445 mg/dL (75-99)
[2021-09-18 12:40] LABS: Glucose,Whole Blood 444 mg/dL (75-99)
[2021-09-18 13:04] LABS: Glucose,Whole Blood 415 mg/dL (75-99)
[2021-09-18] MEDS ORDERED: AMIODARONE 360 MG in DEXTROSE 5% IN WATER 200 ML IV ONE ×2 (13:30)
[2021-09-18] MEDS ORDERED: DEXTROSE 5% IN WATER 100 ML with AMIODARONE 150 MG IV ONE (13:30)
[2021-09-18] MEDS ORDERED: INSULIN ASPART (NovoLOG) 100 UNIT/ML VIAL SQ ONE (14:00)
[2021-09-18 14:43] LABS: Glucose,Whole Blood 419 mg/dL (75-99)
--- NOTE | 2021-09-18 14:57 | P.PN ---
Subjective Progress Note Date: 09/18/21 Follow-up for acute kidney injury. Family at bedside. Episodes of V. tach today. Objective - Vital Signs Vital signs: Vital Signs Temp 97.5 F L 09/18/21 04:00 Pulse 88 09/18/21 11:19 Resp 18 09/18/21 04:00 BP 112/57 09/18/21 04:00 Pulse Ox 96 09/18/21 04:00 Intake & Output 09/17/21 09/18/21 09/18/21 18:59 06:59 18:59 Intake Total 600 140 Output Total 420 Balance 600 -420 140 Weight 85 kg Intake: Oral 600 140 Output: Urine 420 Other: Voiding Method Bedside Commode Indwelling Catheter Indwelling Catheter Urinal # Voids 1 # Bowel Movements 1 - Exam No acute distress S1-S2 heard Decreased breath sounds Abdomen distended Edema - Labs CBC & Chem 7: 09/18/21 07:01 09/18/21 07:01 Labs: Abnormal Lab Results - Last 24 Hours (Table) 09/17/21 09/17/21 09/17/21 Range/Units 15:00 15:00 15:00 WBC 18.4 H (3.8-10.6) k/uL RBC 4.21 L (4.30-5.90) m/uL MCV 100.7 H (80.0-100.0) fL RDW 15.8 H (11.5-15.5) % Plt Count 90 L (150-450) k/uL Neutrophils # 16.9 H (1.3-7.7) k/uL Lymphocytes # 0.7 L (1.0-4.8) k/uL PT 14.2 H (9.0-12.0) sec INR 1.4 H (<1.2) Sodium 134 L (137-145) mmol/L Carbon Dioxide 19 L (22-30) mmol/L BUN 144 H* (9-20) mg/dL Creatinine 3.63 H (0.66-1.25) mg/dL Glucose 244 H (74-99) mg/dL POC Glucose (mg/dL) (75-99) mg/dL Calcium 8.1 L (8.4-10.2) mg/dL Magnesium 2.9 H (1.6-2.3) mg/dL Total Bilirubin 7.4 H (0.2-1.3) mg/dL AST 62 H (17-59) U/L ALT 90 H (4-49) U/L Alkaline Phosphatase 354 H (38-126) U/L Total Protein 5.0 L (6.3-8.2) g/dL Albumin 2.5 L (3.5-5.0) g/dL 09/17/21 09/17/21 09/18/21 Range/Units 16:46 20:11 06:05 WBC (3.8-10.6) k/uL RBC (4.30-5.90) m/uL MCV (80.0-100.0) fL RDW (11.5-15.5) % Plt Count (150-450) k/uL Neutrophils # (1.3-7.7) k/uL Lymphocytes # (1.0-4.8) k/uL PT (9.0-12.0) sec INR (<1.2) Sodium (137-145) mmol/L Carbon Dioxide (22-30) mmol/L BUN (9-20) mg/dL Creatinine (0.66-1.25) mg/dL Glucose (74-99) mg/dL POC Glucose (mg/dL) 249 H 302 H 279 H (75-99) mg/dL Calcium (8.4-10.2) mg/dL Magnesium (1.6-2.3) mg/dL Total Bilirubin (0.2-1.3) mg/dL AST (17-59) U/L ALT (4-49) U/L Alkaline Phosphatase (38-126) U/L Total Protein (6.3-8.2) g/dL Albumin (3.5-5.0) g/dL 09/18/21 09/18/21 09/18/21 Range/Units 07:01 07:01 07:01 WBC 14.5 H (3.8-10.6) k/uL RBC 4.16 L (4.30-5.90) m/uL MCV (80.0-100.0) fL RDW 16.4 H (11.5-15.5) % Plt Count 91 L (150-450) k/uL Neutrophils # 13.6 H (1.3-7.7) k/uL Lymphocytes # 0.5 L (1.0-4.8) k/uL PT 14.8 H (9.0-12.0) sec INR 1.5 H (<1.2) Sodium 135 L (137-145) mmol/L Carbon Dioxide 19 L (22-30) mmol/L BUN 154 H* (9-20) mg/dL Creatinine 3.75 H (0.66-1.25) mg/dL Glucose 283 H (74-99) mg/dL POC Glucose (mg/dL) (75-99) mg/dL Calcium 8.2 L (8.4-10.2) mg/dL Magnesium 3.0 H (1.6-2.3) mg/dL Total Bilirubin 8.1 H (0.2-1.3) mg/dL AST 79 H (17-59) U/L ALT 95 H (4-49) U/L Alkaline Phosphatase 372 H (38-126) U/L Total Protein 4.9 L (6.3-8.2) g/dL Albumin 2.4 L (3.5-5.0) g/dL 09/18/21 09/18/21 09/18/21 Range/Units 11:39 12:37 13:02 WBC (3.8-10.6) k/uL RBC (4.30-5.90) m/uL MCV (80.0-100.0) fL RDW (11.5-15.5) % Plt Count (150-450) k/uL Neutrophils # (1.3-7.7) k/uL Lymphocytes # (1.0-4.8) k/uL PT (9.0-12.0) sec INR (<1.2) Sodium (137-145) mmol/L Carbon Dioxide (22-30) mmol/L BUN (9-20) mg/dL Creatinine (0.66-1.25) mg/dL Glucose (74-99) mg/dL POC Glucose (mg/dL) 445 H 444 H 415 H (75-99) mg/dL Calcium (8.4-10.2) mg/dL Magnesium (1.6-2.3) mg/dL Total Bilirubin (0.2-1.3) mg/dL AST (17-59) U/L ALT (4-49) U/L Alkaline Phosphatase (38-126) U/L Total Protein (6.3-8.2) g/dL Albumin (3.5-5.0) g/dL 09/18/21 Range/Units 14:38 WBC (3.8-10.6) k/uL RBC (4.30-5.90) m/uL MCV (80.0-100.0) fL RDW (11.5-15.5) % Plt Count (150-450) k/uL Neutrophils # (1.3-7.7) k/uL Lymphocytes # (1.0-4.8) k/uL PT (9.0-12.0) sec INR (<1.2) Sodium (137-145) mmol/L Carbon Dioxide (22-30) mmol/L BUN (9-20) mg/dL Creatinine (0.66-1.25) mg/dL Glucose (74-99) mg/dL POC Glucose (mg/dL) 419 H (75-99) mg/dL Calcium (8.4-10.2) mg/dL Magnesium (1.6-2.3) mg/dL Total Bilirubin (0.2-1.3) mg/dL AST (17-59) U/L ALT (4-49) U/L Alkaline Phosphatase (38-126) U/L Total Protein (6.3-8.2) g/dL Albumin (3.5-5.0) g/dL Microbiology - Last 24 Hours (Table) 09/12/21 12:34 Blood Culture - Preliminary Blood No Growth after 120 hours Assessment and Plan Assessment: #1 acute kidney injury, oliguric multifactorial. -Hemodynamic ATN -Rule out hepatorenal syndrome. #2 CK D stage III with baseline creatinine of 1.7-2.0 MG per DL. #3 decompensated liver disease secondary to alcohol #4 A. fib with RVR #5 metabolic acidosis Plan: #1 stop IV fluids and Lasix. Give 100 g of albumin. #2 add midodrine and octreotide. #3 check urine analysis and urine electrolytes #4 prognosis guarded with multiple comorbid conditions. Discussed with the at bedside, poor candidate for dialysis if renal function continued to worsen.
[2021-09-18 16:40] LABS: Glucose,Whole Blood 313 mg/dL (75-99)
[2021-09-18] MEDS: OCTREOTIDE 100 MCG/ML INJ IVP SCH ×2 (16:45→23:19)
[2021-09-18] MEDS: TAMSULOSIN 0.4 MG CAP.ER.24H PO SCH (16:46)
[2021-09-18] MEDS: MIDODRINE 5 MG TAB PO SCH (16:46)
[2021-09-18] MEDS: ALBUMIN HUMAN 25% 50 ML in EMPTY BAG 1 BAG IVPB SCH ×4 (16:49→20:20)
[2021-09-18] MEDS: SODIUM CHLORIDE 0.9% 1,000 ML IV SCH (17:13)
[2021-09-18 20:18] LABS: Glucose,Whole Blood 175 mg/dL (75-99)
[2021-09-18] MEDS: AMIODARONE 450 MG in DEXTROSE 5% IN WATER 250 ML IV SCH ×2 (20:19)
[2021-09-18] MEDS ORDERED: INSULIN DETEMIR (LEVEMIR) 100 UNIT/ML SYR SQ ONE (21:30)
[2021-09-18] MEDS: MIRTAZAPINE 15 MG TAB PO SCH (21:44)
[2021-09-18] MEDS: MONTELUKAST 10 MG TAB PO SCH (21:44)
[2021-09-18] MEDS: ZOLPIDEM 5 MG TAB PO PRN (22:01)
--- NOTE | 2021-09-18 22:47 | PN ---
PROGRESS NOTE DATE OF SERVICE: 09/18/2021 REASON FOR FOLLOWUP: Elevated white count. INTERVAL HISTORY: The patient is afebrile, has been complaining of feeling weak, tired, no energy. No chest pain, shortness of breath or cough. Still has abdominal distention and diarrhea, but no worsening. PHYSICAL EXAMINATION: Blood pressure is 128/64 with a pulse of 80, temperature 98. General description is an elderly male lying in bed in no distress. RESPIRATORY SYSTEM: Unlabored breathing. Decreased intensity of breath sounds. No wheeze. HEART: S1, S2. Regular rate and rhythm. ABDOMEN: Soft. No tenderness. Abdomen is distended, though. EXTREMITIES: Trace edema of feet. LABS: Hemoglobin is 13, white count 14.5. DIAGNOSTIC IMPRESSION AND PLAN: Patient with elevated white count in this patient who did have extensive workup for possible infectious etiology. However, those cultures have been negative. The patient did not have any response to the antibiotic that has been provided to him and has been complaining of with the oral Flagyl. Will go ahead and discontinue Flagyl and Azactam and monitor the patient closely off antibiotic therapy. at the bedside. Questions were answered. MMODL / IJN: [id number] /
[2021-09-18 22:50] LABS: Amorphous Sediment,Urine Few /hpf; Appearance,Urine Cloudy (Clear); Bacteria,Urine Occasional /hpf; Bilirubin,Urine 2+ (Negative); Blood,Urine Moderate (Negative); Color,Urine Dark Yellow; Glucose,Urine (UA) Negative (Negative); Hyaline Casts,Urine 623 /lpf (0-2); Ketones,Urine Negative (Negative); Leukocyte Esterase,Urine Large (Negative); Mucus,Urine Rare /hpf; Nitrite,Urine Negative (Negative); Protein,Urine Trace (Negative); RBC,Urine 75 /hpf (0-5); Specific Gravity,Urine 1.017 (1.001-1.035); Squamous Epithelial Cell,Urine 4 /hpf (0-4); Urobilinogen,Urine <2.0 mg/dL (<2.0); WBC,Urine 98 /hpf (0-5)
[2021-09-18 22:57] LABS: Creatinine,Urine Random 67.3 mg/dL
--- NOTE | 2021-09-18 23:34 | P.PN ---
Subjective Progress Note Date: 09/08/21 Principal diagnosis: Abdominal distention due to ascites status post paracentesis with 2.2 L fluid removal Alcoholic liver cirrhosis suspicious multiple liver metastatic lesions as per Recent history of PET scan on 08/20/21 . Patient is a 66-year-old male with a known history of COPD on home oxygen, recent lung mass on CT chest on follow up with pulmonary, persistent atrial fib rillation on anticoagulation with xarelto, sick sinus syndrome with history of permanent pacemaker placement, coronary artery disease history of stent placement to circumflex, diabetes type 2 insulin-dependent, hypertension, hyperlipidemia, chronic CHF with diastolic dysfunction and previous history of smoking and alcohol use presents to ER with complaints of Abdominal distention. Patient does have a history of liver cirrhosis due to previous history of alcohol abuse. Patient had previous admissions with acute on chronic CHF with diastolic dysfunction and also history of lung nodules. Patient is supposed to get biopsy of the lung nodule. Patient had previous history of right-sided pleural effusion and thoracentesis. Patient was recently discharged in the hospital on 08/19/2021. Patient had PET scan on 08/20/2021 showed high stage neoplasm with cirrhotic liver-multiple hypermetabolic dialysis could reflect metastatic disease. Abnormal left lung mass with thoracic adenopathy. Chest x-ray showed patchy bilateral infiltrate correlate for multifocal pneumonia. Neoplasm not excluded. CT of the abdomen pelvis showed ascites, small bilateral pleural effusions, multiple nodules within the visualized lung bases. Clinical consideration for colitis in the right upper quadrant is recommended. Laboratory data showed WBC 13.6 hemoglobin 12.6 and platelets 152 Sodium 130 potassium 3.9 chloride 93 BUN 64 and creatinine 1.9 Blood sugar is 314 Calcium 8.0 09/08/2021 Patient is s/p paracentesis ultrasound-guided with removal of 2.2 L serous fluid. Specimen sent for fluid analysis and cytology. Cell count on differential showed no evidence of infection. Pulmonary and cardiology was consulted. Patient does have suspected lung cancer with liver metastasis. Patient is scheduled for CT-guided fine-needle aspiration of the liver lesion. Patient does have multiple liver lesions seen on the PET scan. Laboratory data showed WBC 17.4 hemoglobin 12.7, platelets 129 Sodium 136 potassium 3.9 chloride 97 BUN 72 and creatinine 2.24 bilirubin level 4.4, AST 123 ALT 185 alk phos 289 and alpha-fetoprotein level is less than 1.82 We will also consult GI and oncology. Current medications reviewed. Objective - Vital Signs Vital signs: Vital Signs Temp 98 F 09/08/21 11:37 Pulse 77 09/08/21 20:17 Resp 16 09/08/21 15:30 BP 122/63 09/08/21 15:30 Pulse Ox 95 09/08/21 15:30 Intake & Output 09/08/21 09/08/21 09/09/21 06:59 18:59 06:59 Intake Total 1798 Balance 1798 Weight 85.8 kg Intake: Oral 1798 Other: Voiding Method Toilet Toilet # Voids 2 3 1 - Exam Patient is sitting up in the chair comfortably, no acute distress, awake alert and oriented.. HEENT: Normocephalic. Neck is supple. Pupils reactive. Nostrils clear. Oral cavity is moist. Neck reveals no JVD, carotid bruits, or thyromegaly. CHEST EXAMINATION: Trachea is central. Symmetrical expansion. no crackles. No wheezing.. Bibasilar diminished sounds. Nonlabored breathing.. CARDIAC: Normal S1, S2 with no gallops. No murmurs ABDOMEN: Soft. Bowel sounds normal. No organomegaly. No abdominal bruits. Extremities: 2+ edema. No clubbing or cyanosis, significant improvement in lower extremity edema noted Neurologically awake, alert, oriented x3 with well-coordinated movements. No focal deficits noted Skin: No rash or skin lesions. Psychiatric: Cooperative. Non-suicidal Musculoskeletal: No joint swelling or deformity. Normal range of motion. - Labs CBC & Chem 7: 09/18/21 07:01 09/18/21 07:01 Labs: Abnormal Lab Results - Last 24 Hours (Table) 09/08/21 09/08/21 09/08/21 Range/Units 06:36 06:36 11:28 WBC 17.5 H (3.8-10.6) k/uL RBC 4.09 L (4.30-5.90) m/uL Hgb 12.7 L (13.0-17.5) gm/dL Plt Count 129 L (150-450) k/uL Neutrophils # 16.4 H (1.3-7.7) k/uL Lymphocytes # 0.4 L (1.0-4.8) k/uL Sodium 136 L (137-145) mmol/L Chloride 97 L (98-107) mmol/L BUN 72 H (9-20) mg/dL Creatinine 2.24 H (0.66-1.25) mg/dL POC Glucose (mg/dL) 208 H (75-99) mg/dL Total Bilirubin 4.4 H (0.2-1.3) mg/dL AST 123 H (17-59) U/L ALT 185 H (4-49) U/L Alkaline Phosphatase 289 H (38-126) U/L Total Protein 5.7 L (6.3-8.2) g/dL Albumin 3.1 L (3.5-5.0) g/dL 09/08/21 09/08/21 Range/Units 16:58 20:03 WBC (3.8-10.6) k/uL RBC (4.30-5.90) m/uL Hgb (13.0-17.5) gm/dL Plt Count (150-450) k/uL Neutrophils # (1.3-7.7) k/uL Lymphocytes # (1.0-4.8) k/uL Sodium (137-145) mmol/L Chloride (98-107) mmol/L BUN (9-20) mg/dL Creatinine (0.66-1.25) mg/dL POC Glucose (mg/dL) 218 H 269 H (75-99) mg/dL Total Bilirubin (0.2-1.3) mg/dL AST (17-59) U/L ALT (4-49) U/L Alkaline Phosphatase (38-126) U/L Total Protein (6.3-8.2) g/dL Albumin (3.5-5.0) g/dL Microbiology - Last 24 Hours (Table) 09/07/21 10:15 Gram Stain - Preliminary Paracentesis Fluid Body Fluid Culture - Preliminary 09/07/21 10:15 Anaerobic Culture - Preliminary Paracentesis Fluid Assessment and Plan Assessment: Abdominal distention due to ascites status post paracentesis with 2.2 L fluid removal Alcoholic liver cirrhosis suspicious multiple liver metastatic lesions as per Recent history of PET scan on 08/20/21 . chronic CHF with diastolic dysfunction Recently diagnosed lung nodules with abdominal CT chest.. Supposed to follow with pulmonary clinic. s/p outpatient PET scan on 08/20/2021 Hyperglycemia with uncontrolled diabetes type 2 Elevated troponin level unlikely ACS. Hyponatremia likely hypervolemic. Possible SIADH cannot be excluded. Bilateral small pleural effusions with recent history of right thoracentesis Chronic postnasal drip Persistent atrial fibrillation on anticoagulation with xarelto. Was on hold for persistent nosebleeds. Cardiology recommends to start back on xarelto. Sick sinus syndrome with history of permanent pacemaker placement coronary artery disease history of stent placement to circumflex Hypertension Hyperlipidemia Chronic hypoxic respiratory failure secondary to COPD Previous history of smoking History of liver cirrhosis DVT prophylaxis Full code Plan: Patient is status post paracentesis with 2.2 L fluid removal. Cell count and differential showed no evidence of SBP. Follow-up fluid culture and cytology report. Replace electrolytes and patient will be started back on Lasix and spironolactone. Monitor renal function. Continue with home medications and follow-up closely. Pulmonary and cardiology is onboard. Prognosis guarded at this time. Time with Patient: Greater than 30
--- NOTE | 2021-09-18 23:56 | P.PN ---
Subjective Progress Note Date: 09/09/21 Principal diagnosis: Abdominal distention due to ascites status post paracentesis with 2.2 L fluid removal Alcoholic liver cirrhosis suspicious multiple liver metastatic lesions as per Recent history of PET scan on 08/20/21 . Patient is a 66-year-old male with a known history of COPD on home oxygen, recent lung mass on CT chest on follow up with pulmonary, persistent atrial fib rillation on anticoagulation with xarelto, sick sinus syndrome with history of permanent pacemaker placement, coronary artery disease history of stent placement to circumflex, diabetes type 2 insulin-dependent, hypertension, hyperlipidemia, chronic CHF with diastolic dysfunction and previous history of smoking and alcohol use presents to ER with complaints of Abdominal distention. Patient does have a history of liver cirrhosis due to previous history of alcohol abuse. Patient had previous admissions with acute on chronic CHF with diastolic dysfunction and also history of lung nodules. Patient is supposed to get biopsy of the lung nodule. Patient had previous history of right-sided pleural effusion and thoracentesis. Patient was recently discharged in the hospital on 08/19/2021. Patient had PET scan on 08/20/2021 showed high stage neoplasm with cirrhotic liver-multiple hypermetabolic dialysis could reflect metastatic disease. Abnormal left lung mass with thoracic adenopathy. Chest x-ray showed patchy bilateral infiltrate correlate for multifocal pneumonia. Neoplasm not excluded. CT of the abdomen pelvis showed ascites, small bilateral pleural effusions, multiple nodules within the visualized lung bases. Clinical consideration for colitis in the right upper quadrant is recommended. Laboratory data showed WBC 13.6 hemoglobin 12.6 and platelets 152 Sodium 130 potassium 3.9 chloride 93 BUN 64 and creatinine 1.9 Blood sugar is 314 Calcium 8.0 09/08/2021 Patient is s/p paracentesis ultrasound-guided with removal of 2.2 L serous fluid. Specimen sent for fluid analysis and cytology. Cell count on differential showed no evidence of infection. Pulmonary and cardiology was consulted. Patient does have suspected lung cancer with liver metastasis. Patient is scheduled for CT-guided fine-needle aspiration of the liver lesion. Patient does have multiple liver lesions seen on the PET scan. Laboratory data showed WBC 17.4 hemoglobin 12.7, platelets 129 Sodium 136 potassium 3.9 chloride 97 BUN 72 and creatinine 2.24 bilirubin level 4.4, AST 123 ALT 185 alk phos 289 and alpha-fetoprotein level is less than 1.82 We will also consult GI and oncology. 09/09/2021 Patient is currently sitting in the chair. Complains of shortness of breath and abdominal distention improving. Patient does have left lung lesion and also multiple liver lesions. Possible primary lung cancer with liver metastasis. Patient was seen by oncology and planning for CT-guided fine-needle aspiration of the liver lesion. Patient is currently on room air. Awake alert and oriented x3. Laboratory data showed trending up WBC count 22.1, hemoglobin 14.4, platelet count 165 Sodium 137 potassium 3.4, chloride 97, bicarb 31, BUN 72 and creatinine 2.32 Peritoneal fluid cytology is negative for malignant cells. Current medications reviewed. Objective - Vital Signs Vital signs: Vital Signs Temp 97.9 F 09/09/21 09:31 Pulse 78 09/09/21 15:32 Resp 18 09/09/21 15:32 BP 123/61 09/09/21 12:31 Pulse Ox 94 L 09/09/21 12:31 Intake & Output 09/08/21 09/09/21 09/09/21 18:59 06:59 18:59 Intake Total 1798 240 Balance 1798 240 Weight 86.3 kg Intake: Oral 1798 240 Other: Voiding Method Toilet Toilet Toilet # Voids 3 1 1 - Exam Patient is sitting up in the chair comfortably, no acute distress, awake alert and oriented.. HEENT: Normocephalic. Neck is supple. Pupils reactive. Nostrils clear. Oral cavity is moist. Neck reveals no JVD, carotid bruits, or thyromegaly. CHEST EXAMINATION: Trachea is central. Symmetrical expansion. no crackles. No wheezing.. Bibasilar diminished sounds. Nonlabored breathing.. CARDIAC: Normal S1, S2 with no gallops. No murmurs ABDOMEN: Soft. Bowel sounds normal. No organomegaly. No abdominal bruits. Extremities: 2+ edema. No clubbing or cyanosis, significant improvement in lower extremity edema noted Neurologically awake, alert, oriented x3 with well-coordinated movements. No focal deficits noted Skin: No rash or skin lesions. Psychiatric: Cooperative. Non-suicidal Musculoskeletal: No joint swelling or deformity. Normal range of motion. - Labs CBC & Chem 7: 09/18/21 07:01 09/18/21 07:01 Labs: Abnormal Lab Results - Last 24 Hours (Table) 09/08/21 09/08/21 09/09/21 Range/Units 16:58 20:03 06:04 WBC (3.8-10.6) k/uL Neutrophils # (1.3-7.7) k/uL Lymphocytes # (1.0-4.8) k/uL Potassium (3.5-5.1) mmol/L Chloride (98-107) mmol/L Carbon Dioxide (22-30) mmol/L BUN (9-20) mg/dL Creatinine (0.66-1.25) mg/dL Glucose (74-99) mg/dL POC Glucose (mg/dL) 218 H 269 H 43 L (75-99) mg/dL Magnesium (1.6-2.3) mg/dL 09/09/21 09/09/21 09/09/21 Range/Units 06:18 06:38 06:38 WBC 22.1 H (3.8-10.6) k/uL Neutrophils # 20.1 H (1.3-7.7) k/uL Lymphocytes # 0.8 L (1.0-4.8) k/uL Potassium 3.4 L (3.5-5.1) mmol/L Chloride 97 L (98-107) mmol/L Carbon Dioxide 31 H (22-30) mmol/L BUN 72 H (9-20) mg/dL Creatinine 2.35 H (0.66-1.25) mg/dL Glucose 30 L* (74-99) mg/dL POC Glucose (mg/dL) 61 L (75-99) mg/dL Magnesium 2.7 H (1.6-2.3) mg/dL 09/09/21 Range/Units 11:33 WBC (3.8-10.6) k/uL Neutrophils # (1.3-7.7) k/uL Lymphocytes # (1.0-4.8) k/uL Potassium (3.5-5.1) mmol/L Chloride (98-107) mmol/L Carbon Dioxide (22-30) mmol/L BUN (9-20) mg/dL Creatinine (0.66-1.25) mg/dL Glucose (74-99) mg/dL POC Glucose (mg/dL) 106 H (75-99) mg/dL Magnesium (1.6-2.3) mg/dL Assessment and Plan Assessment: Abdominal distention due to ascites status post paracentesis with 2.2 L fluid removal Alcoholic liver cirrhosis suspicious multiple liver metastatic lesions as per Recent history of PET scan on 08/20/21 . chronic CHF with diastolic dysfunction Recently diagnosed lung nodules with abdominal CT chest.. Supposed to follow with pulmonary clinic. s/p outpatient PET scan on 08/20/2021 Hyperglycemia with uncontrolled diabetes type 2 Elevated troponin level unlikely ACS. Hyponatremia likely hypervolemic. Possible SIADH cannot be excluded. Bilateral small pleural effusions with recent history of right thoracentesis Chronic postnasal drip Persistent atrial fibrillation on anticoagulation with xarelto. Was on hold for persistent nosebleeds. Cardiology recommends to start back on xarelto. Sick sinus syndrome with history of permanent pacemaker placement coronary artery disease history of stent placement to circumflex Hypertension Hyperlipidemia Chronic hypoxic respiratory failure secondary to COPD Previous history of smoking History of liver cirrhosis DVT prophylaxis Full code Plan: Patient is status post paracentesis with 2.2 L fluid removal. Cell count and differential showed no evidence of SBP. Peritoneal fluid cytology is negative for malignant cells. Patient is scheduled for fine-needle aspiration biopsy of the liver lesion. Replace electrolytes and patient will be started back on Lasix and spironolactone as bP tolerates.. Monitor renal function. Continue with home medications and follow-up closely. Pulmonary and cardiology is onboard. Prognosis guarded at this time. Time with Patient: Greater than 30
[2021-09-19] MEDS ORDERED: MORPHINE SULFATE 4 MG/ML SYRINGE IVP PRN (02:57)
[2021-09-19 06:16] LABS: Glucose,Whole Blood 132 mg/dL (75-99)
[2021-09-19] MEDS: MIDODRINE 5 MG TAB PO SCH ×3 (06:45→18:11)
[2021-09-19] MEDS: INSULIN ASPART (NovoLOG) 100 UNIT/ML VIAL SQ SCH ×4 (06:46→21:07)
[2021-09-19] MEDS: PANTOPRAZOLE 40 MG TABLET PO SCH (06:46)
[2021-09-19] MEDS: IPRATROPIUM-ALBUTEROL 3 ML NEB INHALATION SCH ×4 (07:59→21:40)
[2021-09-19] MEDS: SYMBICORT 160-4.5 MCG INHALER INHALATION SCH ×2 (07:59→21:40)
[2021-09-19] MEDS ORDERED: FUROSEMIDE 10 MG/ML 4 ML VIAL IV STA (09:37)
--- NOTE | 2021-09-19 09:41 | P.PN ---
Subjective Progress Note Date: 09/19/21 Follow-up for acute kidney injury. Family at bedside. Objective - Vital Signs Vital signs: Vital Signs Temp 97.8 F 09/19/21 04:00 Pulse 86 09/19/21 08:00 Resp 18 09/19/21 08:00 BP 111/63 09/19/21 04:00 Pulse Ox 96 09/19/21 04:00 Intake & Output 09/18/21 09/19/21 09/19/21 18:59 06:59 18:59 Intake Total 140 Output Total 250 500 Balance -110 -500 Weight 76 kg Intake: Oral 140 Output: Urine 250 500 Other: Voiding Method Indwelling Catheter Indwelling Catheter Indwelling Catheter - Exam No acute distress S1-S2 heard Decreased breath sounds Abdomen distended Edema - Labs CBC & Chem 7: 09/18/21 07:01 09/18/21 07:01 Labs: Abnormal Lab Results - Last 24 Hours (Table) 09/18/21 09/18/21 09/18/21 Range/Units 07:01 11:39 12:37 Neutrophils # 13.6 H (1.3-7.7) k/uL Lymphocytes # 0.5 L (1.0-4.8) k/uL POC Glucose (mg/dL) 445 H 444 H (75-99) mg/dL Urine Protein (Negative) Urine Blood (Negative) Urine Bilirubin (Negative) Ur Leukocyte Esterase (Negative) Urine RBC (0-5) /hpf Urine WBC (0-5) /hpf Urine WBC Clumps (None) /hpf Amorphous Sediment (None) /hpf Urine Bacteria (None) /hpf Hyaline Casts (0-2) /lpf Urine Mucus (None) /hpf 09/18/21 09/18/21 09/18/21 Range/Units 13:02 14:38 16:38 Neutrophils # (1.3-7.7) k/uL Lymphocytes # (1.0-4.8) k/uL POC Glucose (mg/dL) 415 H 419 H 313 H (75-99) mg/dL Urine Protein (Negative) Urine Blood (Negative) Urine Bilirubin (Negative) Ur Leukocyte Esterase (Negative) Urine RBC (0-5) /hpf Urine WBC (0-5) /hpf Urine WBC Clumps (None) /hpf Amorphous Sediment (None) /hpf Urine Bacteria (None) /hpf Hyaline Casts (0-2) /lpf Urine Mucus (None) /hpf 09/18/21 09/18/21 09/19/21 Range/Units 19:53 22:06 05:50 Neutrophils # (1.3-7.7) k/uL Lymphocytes # (1.0-4.8) k/uL POC Glucose (mg/dL) 175 H 132 H (75-99) mg/dL Urine Protein Trace H (Negative) Urine Blood Moderate H (Negative) Urine Bilirubin 2+ H (Negative) Ur Leukocyte Esterase Large H (Negative) Urine RBC 75 H (0-5) /hpf Urine WBC 98 H (0-5) /hpf Urine WBC Clumps Few H (None) /hpf Amorphous Sediment Few H (None) /hpf Urine Bacteria Occasional H (None) /hpf Hyaline Casts 623 H (0-2) /lpf Urine Mucus Rare H (None) /hpf Microbiology - Last 24 Hours (Table) 09/12/21 12:34 Blood Culture - Final Blood No Growth after 144 hours Assessment and Plan Assessment: #1 acute kidney injury, oliguric multifactorial. -Hemodynamic ATN with low blood pressures. - hepatorenal syndrome less likely with abnormal urine analysis. #2 CK D stage III with baseline creatinine of 1.7-2.0 MG per DL. #3 decompensated liver disease secondary to alcohol #4 A. fib with RVR #5 metabolic acidosis Plan: #1 albumin 100 g yesterday, plan again today. #2 add midodrine and octreotide. #3 urine analysis with a lot of hyaline cast consistent with ATN. Okay for Lasix #4 prognosis guarded with multiple comorbid conditions. Discussed with the at bedside, poor candidate for dialysis if renal function continued to worsen.
[2021-09-19] MEDS ORDERED: ALBUMIN HUMAN 25% 100 ML in EMPTY BAG 1 BAG IVPB SCH (10:00)
[2021-09-19] MEDS: OCTREOTIDE 100 MCG/ML INJ IVP SCH ×3 (10:07→23:43)
[2021-09-19] MEDS: ISOSORBIDE MONONITRATE ER 30 MG TAB.ER.24H PO SCH (10:08)
[2021-09-19] MEDS: METOPROLOL TARTRATE 50 MG TAB PO SCH ×2 (10:08→21:06)
[2021-09-19] MEDS: FLECAINIDE 50 MG TAB PO SCH ×2 (10:08→21:06)
[2021-09-19] MEDS: allopurinoL 100 MG TAB PO SCH (10:08)
--- NOTE | 2021-09-19 10:45 | P.PN ---
Subjective Progress Note Date: 09/19/21 Principal diagnosis: Coronary artery disease This is a 66-year-old gentleman with multiple medical conditions includes metastatic lung cancer as well as coronary artery disease as well as paroxysmal atrial fibrillation as well as multiple comorbid conditions. The patient was seen this morning. Unfortunately he is not doing well. He does have dyspnea. He continues to be fluid overloaded. Unfortunately his kidney function is worse. Yesterday he went into wide complex tachycardia seems to be concerning for V. tach. He was started on amiodarone and his heart rate has sl owed down. He was started on Lasix IV but that was systolic by the nephrology service. The family is talking about possible consulting hospice. Objective - Vital Signs Vital signs: Vital Signs Temp 97.8 F 09/19/21 04:00 Pulse 84 09/19/21 10:08 Resp 18 09/19/21 08:00 BP 111/63 09/19/21 04:00 Pulse Ox 96 09/19/21 04:00 Intake & Output 09/18/21 09/19/21 09/19/21 18:59 06:59 18:59 Intake Total 140 Output Total 250 500 Balance -110 -500 Weight 76 kg Intake: Oral 140 Output: Urine 250 500 Other: Voiding Method Indwelling Catheter Indwelling Catheter Indwelling Catheter - Constitutional General appearance: Present: mild distress - Respiratory Respiratory: bilateral: diminished - Cardiovascular Heart sounds: normal: S1, S2 - Labs CBC & Chem 7: 09/18/21 07:01 09/18/21 07:01 Labs: Abnormal Lab Results - Last 24 Hours (Table) 09/18/21 09/18/21 09/18/21 Range/Units 07:01 11:39 12:37 Neutrophils # 13.6 H (1.3-7.7) k/uL Lymphocytes # 0.5 L (1.0-4.8) k/uL POC Glucose (mg/dL) 445 H 444 H (75-99) mg/dL Urine Protein (Negative) Urine Blood (Negative) Urine Bilirubin (Negative) Ur Leukocyte Esterase (Negative) Urine RBC (0-5) /hpf Urine WBC (0-5) /hpf Urine WBC Clumps (None) /hpf Amorphous Sediment (None) /hpf Urine Bacteria (None) /hpf Hyaline Casts (0-2) /lpf Urine Mucus (None) /hpf 09/18/21 09/18/21 09/18/21 Range/Units 13:02 14:38 16:38 Neutrophils # (1.3-7.7) k/uL Lymphocytes # (1.0-4.8) k/uL POC Glucose (mg/dL) 415 H 419 H 313 H (75-99) mg/dL Urine Protein (Negative) Urine Blood (Negative) Urine Bilirubin (Negative) Ur Leukocyte Esterase (Negative) Urine RBC (0-5) /hpf Urine WBC (0-5) /hpf Urine WBC Clumps (None) /hpf Amorphous Sediment (None) /hpf Urine Bacteria (None) /hpf Hyaline Casts (0-2) /lpf Urine Mucus (None) /hpf 09/18/21 09/18/21 09/19/21 Range/Units 19:53 22:06 05:50 Neutrophils # (1.3-7.7) k/uL Lymphocytes # (1.0-4.8) k/uL POC Glucose (mg/dL) 175 H 132 H (75-99) mg/dL Urine Protein Trace H (Negative) Urine Blood Moderate H (Negative) Urine Bilirubin 2+ H (Negative) Ur Leukocyte Esterase Large H (Negative) Urine RBC 75 H (0-5) /hpf Urine WBC 98 H (0-5) /hpf Urine WBC Clumps Few H (None) /hpf Amorphous Sediment Few H (None) /hpf Urine Bacteria Occasional H (None) /hpf Hyaline Casts 623 H (0-2) /lpf Urine Mucus Rare H (None) /hpf Microbiology - Last 24 Hours (Table) 09/12/21 12:34 Blood Culture - Final Blood No Growth after 144 hours Assessment and Plan Assessment: Assessment #1 ventricular tachycardia #2 metastatic small cell lung cancer #3 coronary artery disease #4 acute exacerbation of heart failure with preserved ejection fraction #5 paroxysmal atrial fibrillation #6 multiple comorbid conditions Plan #1 continue the current medical regimen #2 diuretics to be managed by the nephrology service #3 follow-up with the patient on when necessary case #4 the family is going to consult hospice to see the patient
--- NOTE | 2021-09-19 11:35 | P.PN ---
Subjective Progress Note Date: 09/18/21 Patient denies any major changes in his condition. He states that his abdomen feels less tight. No fever/chills/nausea/vomiting. Generalized weakness persists. Appetite remains Diminished Objective - Vital Signs Vital signs: Vital Signs Temp 97.8 F 09/19/21 04:00 Pulse 84 09/19/21 10:08 Resp 18 09/19/21 08:00 BP 111/63 09/19/21 04:00 Pulse Ox 96 09/19/21 04:00 Intake & Output 09/18/21 09/19/21 09/19/21 18:59 06:59 18:59 Intake Total 140 Output Total 250 500 Balance -110 -500 Weight 76 kg Intake: Oral 140 Output: Urine 250 500 Other: Voiding Method Indwelling Catheter Indwelling Catheter Indwelling Catheter - Constitutional General appearance: Present: no acute distress - EENT Eyes: Present: EOMI, scleral icterus ENT: Present: hearing grossly normal, normal oropharynx - Respiratory Respiratory: bilateral: diminished (b/l at bases) - Cardiovascular Rhythm: regular Heart sounds: normal: S1, S2 - Gastrointestinal General gastrointestinal: Present: distended, hepatomegaly Localized gastrointestinal: tender: RUQ - Integumentary Integumentary: Present: jaundiced - Neurologic Neurologic: Present: CNII-XII intact - Musculoskeletal Musculoskeletal: Present: generalized weakness, strength equal bilaterally - Psychiatric Psychiatric: Present: A&O x's 3 - Labs CBC & Chem 7: 09/18/21 07:01 09/18/21 07:01 Labs: Abnormal Lab Results - Last 24 Hours (Table) 09/18/21 09/18/21 09/18/21 Range/Units 11:39 12:37 13:02 POC Glucose (mg/dL) 445 H 444 H 415 H (75-99) mg/dL Urine Protein (Negative) Urine Blood (Negative) Urine Bilirubin (Negative) Ur Leukocyte Esterase (Negative) Urine RBC (0-5) /hpf Urine WBC (0-5) /hpf Urine WBC Clumps (None) /hpf Amorphous Sediment (None) /hpf Urine Bacteria (None) /hpf Hyaline Casts (0-2) /lpf Urine Mucus (None) /hpf 09/18/21 09/18/21 09/18/21 Range/Units 14:38 16:38 19:53 POC Glucose (mg/dL) 419 H 313 H 175 H (75-99) mg/dL Urine Protein (Negative) Urine Blood (Negative) Urine Bilirubin (Negative) Ur Leukocyte Esterase (Negative) Urine RBC (0-5) /hpf Urine WBC (0-5) /hpf Urine WBC Clumps (None) /hpf Amorphous Sediment (None) /hpf Urine Bacteria (None) /hpf Hyaline Casts (0-2) /lpf Urine Mucus (None) /hpf 09/18/21 09/19/21 Range/Units 22:06 05:50 POC Glucose (mg/dL) 132 H (75-99) mg/dL Urine Protein Trace H (Negative) Urine Blood Moderate H (Negative) Urine Bilirubin 2+ H (Negative) Ur Leukocyte Esterase Large H (Negative) Urine RBC 75 H (0-5) /hpf Urine WBC 98 H (0-5) /hpf Urine WBC Clumps Few H (None) /hpf Amorphous Sediment Few H (None) /hpf Urine Bacteria Occasional H (None) /hpf Hyaline Casts 623 H (0-2) /lpf Urine Mucus Rare H (None) /hpf Microbiology - Last 24 Hours (Table) 09/12/21 12:34 Blood Culture - Final Blood No Growth after 144 hours Assessment and Plan (1) Small cell lung cancer Narrative/Plan: The patient has metastatic small cell lung cancer, with significant liver involvement. Diagnosis, prognosis and management options have been discussed with him. We've also discussed prognosis with and without active treatment. At this time the patient and his stated that they have not yet made a definite decision as to whether they want to have active treatment or not. I discussed with them again that his liver enzymes were concerning for progressive decompensation, with slow increase in bilirubin and decrease in AST and ALT. Therefore the window of her surgery to start active treatment is fairly small. - I also, again, discussed the risk of progressive decompensation with active treatment and risk of shortness of life expectancy with active treatment. They expressed understanding of the same - The stated that they will likely that is no the decision in the next day or so. Current Visit: Yes Status: Acute Priority: High Code(s): C34.90 - MALIGNANT NEOPLASM OF UNSP PART OF UNSP BRONCHUS OR LUNG SNOMED Code(s): 614215410 (2) Hyperbilirubinemia Narrative/Plan: Bilirubin is slowly increasing, with actual decrease in liver enzymes. This is highly concerning for significant, progressive liver decompensation. The patient has significant liver involvement with aggressive tumor, and the situation is was compensated by underlying liver compromise from cirrhosis. Current Visit: Yes Status: Acute Code(s): E80.6 - OTHER DISORDERS OF BILIRUBIN METABOLISM SNOMED Code(s): 56760735
[2021-09-19 11:43] LABS: Glucose,Whole Blood 125 mg/dL (75-99)
[2021-09-19 13:19] LABS: Glucose,Whole Blood 127 mg/dL (75-99)
[2021-09-19 14:19] LABS: Glucose,Whole Blood 131 mg/dL (75-99)
[2021-09-19] MEDS ORDERED: LORazepam 2 MG/ML INJ IV PRN (15:16)
[2021-09-19] MEDS ORDERED: ATROPINE OPHTH SOLN 1% 5ML BTL SUBLINGUAL PRN (15:16)
[2021-09-19] MEDS: ALBUMIN HUMAN 25% 50 ML in EMPTY BAG 1 BAG IVPB SCH ×2 (15:26→16:32)
[2021-09-19] MEDS: AMIODARONE 450 MG in DEXTROSE 5% IN WATER 250 ML IV SCH ×2 (15:26)
[2021-09-19] MEDS ORDERED: SCOPOLAMINE 1.5MG/72HR PATCH TRANSDERM SCH (15:30)
[2021-09-19] MEDS ORDERED: MORPHINE SULFATE (100 MG/2 ML) 100 MG in SODIUM CHLORIDE 0.9% 100 ML IV SCH (15:30)
--- NOTE | 2021-09-19 16:24 | P.PN ---
Subjective Progress Note Date: 09/18/21 Principal diagnosis: Abdominal distention 66-year-old male with a known history of COPD on home oxygen, recent lung mass on CT chest on follow up with pulmonary, persistent atrial fibrillation on anticoagulation with xarelto, sick sinus syndrome with history of permanent pacemaker placement, coronary artery disease history of stent placement to circumflex, diabetes type 2 insulin-dependent, hypertension, hyperlipidemia, chronic CHF with diastolic dysfunction and previous history of smoking and alcohol use presents to ER with complaints of Abdominal distention. Patient do es have a history of liver cirrhosis due to previous history of alcohol abuse. Patient had previous admissions with acute on chronic CHF with diastolic dysfunction and also history of lung nodules. Patient is supposed to get biopsy of the lung nodule. Patient had previous history of right-sided pleural effusion and thoracentesis. Patient was recently discharged in the hospital on 08/19/2021. Patient had PET scan on 08/20/2021 showed high stage neoplasm with cirrhotic liver-multiple hypermetabolic dialysis could reflect metastatic disease. Abnormal left lung mass with thoracic adenopathy. Chest x-ray showed patchy bilateral infiltrate correlate for multifocal pneumonia. Neoplasm not excluded. CT of the abdomen pelvis showed ascites, small bilateral pleural effusions, multiple nodules within the visualized lung bases. Clinical consideration for colitis in the right upper quadrant is recommended. Laboratory data showed WBC 13.6 hemoglobin 12.6 and platelets 152 Sodium 130 potassium 3.9 chloride 93 BUN 64 and creatinine 1.9 Blood sugar is 314 Calcium 8.0 09/11/2021 Patient is seen and evaluated in follow-up on the selective care unit. He is currently resting comfortably in bed. No acute distress. He did undergo a liver biopsy by interventional radiology yesterday; continues to complain of discomfort at biopsy site. Pathology pending. he is currently maintaining O2 saturation in the 90s on room air. White count 20.0. Hemoglobin 14.2. Sodium 134. Potassium 4.1. Creatinine 3.08. Glucose 220. AST 393. ALT 426. He is continued on DuoNeb inhalations, Symbicort, oral diuretics. 09/12/2021 Patient is seen and evaluated in room at bedside and discussed with nursing staff in great detail; according to RN, patient has been quite weak and depressed and wanting to stay in chair; I did have a long discussion with patience wong regarding further testing and goals of care; patient does state that he feels depressed and hopeless due to recent diagnosis; psych consultation was advised and patient is agreeable to try Patient has undergone liver biopsy and results are pending; liver enzymes are continuing to trend up; hepatitis panel is nonreactive; WBC is trending up also; ascites fluid culture was unremarkable; ID is consulted and recommending to obtain stool for C. diff and culture; patient has been empirically started on antibiotics in form of Azactam and Flagyl; we will continue to monitor and further recommendations forthcoming 09/13/2021 Patient is seen and evaluated resting comfortably in bed; is at bedside and has numerous questions which were answered to her satisfaction Psych evaluation is discussed with and she is agreeable Patient remains quite depressed and has been evaluated by psychiatry but patient refuses any; medications at this time supportive psychotherapy was given We await results for liver biopsy for any further evaluation and recommendations 09/14/2021 Patient is seen and evaluated in room with at bedside, patient's liver biopsy results are still pending; patient denies any specific complaints Vital signs are reviewed with temperature 90.8, pulse 95, respiration 18 and blood pressure 131/66; patient remains on 2 L of oxygen Nephrology is following, Lasix is currently on hold, patient continues on Aldactone. labs have been reviewed, creatinine is slightly improved, at 3.09 down from 3.201 yesterday's labs, BUN is 111, sodium is 136, potassium is 3.4, chloride is 97, his pro calcitonin level is elevated at 19.7, she is on aztreonam for antibiotic coverage. His ascites fluid ulcer was negative, blood and stool cultures have also been sent, so far showing no growth. 09/15/2021 Patient is seen and evaluated in follow-up with nursing staff at bedside. Currently sitting up at the site of his bed. Complaints of 2 episodes of diarrhea since morning; per nursing staff stool wasn't foul-smelling; likely related to antibiotic use. Awake and alert in no acute distress; continues to complain of abdominal distention and discomfort. Liver biopsy pathology results still pending. Vital signs are stable with temperature 97.7, pulse 62, respiration 18 and blood pressure 122/63, O2 saturation 98% Sodium 134. Potassium 3.3. BUN 118. Creatinine 2.88. Glucose 364. Calcium 7.9. Patient remains on Symbicort, DuoNeb inhalations. Antibiotics in the form of aztreonam, Flagyl. Nephrology on board for acute renal injury likely related to diuresis and slowly improving. IV hydration with normal saline at a rate of 50 mL an hour; BUN/creatinine disproportionately elevated; no evidence of GI bleed ID is recommending to continue current dose of Azactam and Flagyl started empirically for possible abdominal source of infection 09/16/2021 Patient was seen and evaluated with the nursing staff. Patient was confirmed to have metastatic lung cancer due to the positive liver biopsy. The patient had a lobulated mass around 4 x 3 cm in the left midlung and left hilar and suprahilar hilar metabolic lymphadenopathy along with hepatitic metastases which was confirmed by a fine-needle aspiration. The patient also suffers from bilateral pleural effusion and ascites. The ascitic fluid came back negative for malignancy. Patient is fatigued, low energy, and has a low appetite. Patient is afebrile. Quite fatigued and debilitated and has low energy and appetite and continues to lose weight. He is afebrile. 09/17/2021 Patient was seen and evaluated at bedside. Patient's liver biopsy came back positive for metastatic lung cancer. Patient appear to be fatigued but is respirating normally. Patient complains of mild hemoptysis which may be from the nosebleed developing from the continuous oxygen. Patient is off anticoagulation, off aspirin, and even the Xarelto. Patient's liver biopsy is positive for small cell lung carcinoma which has metastasized to the liver. Patient and family are waiting for Dr. Alvarez, medical oncologist, to discuss the prognosis, treatment, etc. Patient is dyspneic at rest, but is afebrile. Patient is continued on diuretics with Lasix and also on empiric antibiotics. Ascitic fluid cultures are not showing any abnormal growth. Patient's pulse ox is 91%. Patient has been removed from supplemental oxygen to prevent worsening of the nosebleed. Lung sounds reveal some bibasilar crackles. Yesterday's lab results showed worsening of renal function for which nephrology will follow up and follow up lab results are pending for today. 09/18/2021 Patient is seen and evaluated with family members at site including patient's and 2 children; patient is quite lethargic and resting in bed; had episodes of V. tach earlier this morning and has been placed on amiodarone infusion Vital signs at this time temperature 97.5, pulse 88, respiration 18 and blood pressure 12/20/1956 Labs are reviewed WBC 14.5, hemoglobin 13.20 count of 91; chemical profile sodium 135, potassium 4.1, BUN/creatinine of 154/3.7583 Nephrology on 4 for oliguric acute renal failure with possibility of hepatorenal syndrome; nephro recommending to stop IV fluids and Lasix; patient has received 100 g of albumin; midodrine and octreotide is added Detailed discussion with patient and family at bedside; all of family's questions were answered in great detail; patient and family inclining towards possible hospice care; CODE STATUS was discussed with patient and family also; patient doesn't want CPR or shock or ventilation; states he is okay with medications We will continue with current management at this time and consult hospice; patient and family will talk to hospice team and make decision regarding course of treatment Objective - Vital Signs Vital signs: Vital Signs Temp 97.5 F L 09/18/21 04:00 Pulse 88 09/18/21 11:19 Resp 18 09/18/21 04:00 BP 112/57 09/18/21 04:00 Pulse Ox 96 09/18/21 04:00 Intake & Output 09/17/21 09/18/21 09/18/21 18:59 06:59 18:59 Intake Total 600 140 Output Total 420 Balance 600 -420 140 Weight 85 kg Intake: Oral 600 140 Output: Urine 420 Other: Voiding Method Bedside Commode Indwelling Catheter Indwelling Catheter Urinal # Voids 1 # Bowel Movements 1 - Exam PHYSICAL EXAMINATION: GENERAL: The patient is alert and oriented x3, not in any acute distress. Well developed, well nourished. HEENT: Pupils are round and equally reacting to light. EOMI. No scleral icterus. No conjunctival pallor. Normocephalic, atraumatic. No pharyngeal erythema. No thyromegaly. CARDIOVASCULAR: S1 and S2 present. No murmurs, rubs, or gallops. PULMONARY: Chest is clear to auscultation, no wheezing or crackles. ABDOMEN: Soft, nontender, nondistended, normoactive bowel sounds. No palpable organomegaly. MUSCULOSKELETAL: No joint swelling or deformity. EXTREMITIES: No cyanosis, clubbing, or pedal edema. NEUROLOGICAL: Gross neurological examination did not reveal any focal deficits. SKIN: No rashes. - Labs CBC & Chem 7: 09/18/21 07:01 09/18/21 07:01 Labs: Abnormal Lab Results - Last 24 Hours (Table) 09/17/21 09/17/21 09/17/21 Range/Units 15:00 15:00 15:00 WBC 18.4 H (3.8-10.6) k/uL RBC 4.21 L (4.30-5.90) m/uL MCV 100.7 H (80.0-100.0) fL RDW 15.8 H (11.5-15.5) % Plt Count 90 L (150-450) k/uL Neutrophils # 16.9 H (1.3-7.7) k/uL Lymphocytes # 0.7 L (1.0-4.8) k/uL PT 14.2 H (9.0-12.0) sec INR 1.4 H (<1.2) Sodium 134 L (137-145) mmol/L Carbon Dioxide 19 L (22-30) mmol/L BUN 144 H* (9-20) mg/dL Creatinine 3.63 H (0.66-1.25) mg/dL Glucose 244 H (74-99) mg/dL POC Glucose (mg/dL) (75-99) mg/dL Calcium 8.1 L (8.4-10.2) mg/dL Magnesium 2.9 H (1.6-2.3) mg/dL Total Bilirubin 7.4 H (0.2-1.3) mg/dL AST 62 H (17-59) U/L ALT 90 H (4-49) U/L Alkaline Phosphatase 354 H (38-126) U/L Total Protein 5.0 L (6.3-8.2) g/dL Albumin 2.5 L (3.5-5.0) g/dL 09/17/21 09/17/21 09/18/21 Range/Units 16:46 20:11 06:05 WBC (3.8-10.6) k/uL RBC (4.30-5.90) m/uL MCV (80.0-100.0) fL RDW (11.5-15.5) % Plt Count (150-450) k/uL Neutrophils # (1.3-7.7) k/uL Lymphocytes # (1.0-4.8) k/uL PT (9.0-12.0) sec INR (<1.2) Sodium (137-145) mmol/L Carbon Dioxide (22-30) mmol/L BUN (9-20) mg/dL Creatinine (0.66-1.25) mg/dL Glucose (74-99) mg/dL POC Glucose (mg/dL) 249 H 302 H 279 H (75-99) mg/dL Calcium (8.4-10.2) mg/dL Magnesium (1.6-2.3) mg/dL Total Bilirubin (0.2-1.3) mg/dL AST (17-59) U/L ALT (4-49) U/L Alkaline Phosphatase (38-126) U/L Total Protein (6.3-8.2) g/dL Albumin (3.5-5.0) g/dL 09/18/21 09/18/21 09/18/21 Range/Units 07:01 07:01 07:01 WBC 14.5 H (3.8-10.6) k/uL RBC 4.16 L (4.30-5.90) m/uL MCV (80.0-100.0) fL RDW 16.4 H (11.5-15.5) % Plt Count 91 L (150-450) k/uL Neutrophils # 13.6 H (1.3-7.7) k/uL Lymphocytes # 0.5 L (1.0-4.8) k/uL PT 14.8 H (9.0-12.0) sec INR 1.5 H (<1.2) Sodium 135 L (137-145) mmol/L Carbon Dioxide 19 L (22-30) mmol/L BUN 154 H* (9-20) mg/dL Creatinine 3.75 H (0.66-1.25) mg/dL Glucose 283 H (74-99) mg/dL POC Glucose (mg/dL) (75-99) mg/dL Calcium 8.2 L (8.4-10.2) mg/dL Magnesium 3.0 H (1.6-2.3) mg/dL Total Bilirubin 8.1 H (0.2-1.3) mg/dL AST 79 H (17-59) U/L ALT 95 H (4-49) U/L Alkaline Phosphatase 372 H (38-126) U/L Total Protein 4.9 L (6.3-8.2) g/dL Albumin 2.4 L (3.5-5.0) g/dL 09/18/21 09/18/21 09/18/21 Range/Units 11:39 12:37 13:02 WBC (3.8-10.6) k/uL RBC (4.30-5.90) m/uL MCV (80.0-100.0) fL RDW (11.5-15.5) % Plt Count (150-450) k/uL Neutrophils # (1.3-7.7) k/uL Lymphocytes # (1.0-4.8) k/uL PT (9.0-12.0) sec INR (<1.2) Sodium (137-145) mmol/L Carbon Dioxide (22-30) mmol/L BUN (9-20) mg/dL Creatinine (0.66-1.25) mg/dL Glucose (74-99) mg/dL POC Glucose (mg/dL) 445 H 444 H 415 H (75-99) mg/dL Calcium (8.4-10.2) mg/dL Magnesium (1.6-2.3) mg/dL Total Bilirubin (0.2-1.3) mg/dL AST (17-59) U/L ALT (4-49) U/L Alkaline Phosphatase (38-126) U/L Total Protein (6.3-8.2) g/dL Albumin (3.5-5.0) g/dL 09/18/21 Range/Units 14:38 WBC (3.8-10.6) k/uL RBC (4.30-5.90) m/uL MCV (80.0-100.0) fL RDW (11.5-15.5) % Plt Count (150-450) k/uL Neutrophils # (1.3-7.7) k/uL Lymphocytes # (1.0-4.8) k/uL PT (9.0-12.0) sec INR (<1.2) Sodium (137-145) mmol/L Carbon Dioxide (22-30) mmol/L BUN (9-20) mg/dL Creatinine (0.66-1.25) mg/dL Glucose (74-99) mg/dL POC Glucose (mg/dL) 419 H (75-99) mg/dL Calcium (8.4-10.2) mg/dL Magnesium (1.6-2.3) mg/dL Total Bilirubin (0.2-1.3) mg/dL AST (17-59) U/L ALT (4-49) U/L Alkaline Phosphatase (38-126) U/L Total Protein (6.3-8.2) g/dL Albumin (3.5-5.0) g/dL Microbiology - Last 24 Hours (Table) 09/12/21 12:34 Blood Culture - Final Blood No Growth after 144 hours Assessment and Plan Assessment: Abdominal distention due to ascites status post paracentesis with 2.2 L fluid removal Alcoholic liver cirrhosis suspicious multiple liver metastatic lesions as per Recent history of PET scan on 08/20/21 . chronic CHF with diastolic dysfunction Recently diagnosed lung nodules with abdominal CT chest.. Supposed to follow with pulmonary clinic. s/p outpatient PET scan on 08/20/2021 Hyperglycemia with uncontrolled diabetes type 2 Elevated troponin level unlikely ACS. Hyponatremia likely hypervolemic. Possible SIADH cannot be excluded. Bilateral small pleural effusions with recent history of right thoracentesis Chronic postnasal drip Persistent atrial fibrillation on anticoagulation with xarelto. Was on hold for persistent nosebleeds. Cardiology recommends to start back on xarelto. Sick sinus syndrome with history of permanent pacemaker placement coronary artery disease history of stent placement to circumflex Hypertension Hyperlipidemia Chronic hypoxic respiratory failure secondary to COPD Previous history of smoking History of liver cirrhosis DVT prophylaxis Full code Plan: Patient is status post paracentesis with 2.2 L fluid removal. Cell count and differential showed no evidence of SBP. Follow-up fluid culture and cytology report. Replace electrolytes and patient will be started back on Lasix and spiron olactone. Monitor renal function. Continue with home medications and follow-up closely. Pulmonary and cardiology was consulted. Prognosis guarded at this time.
[2021-09-19 16:30] LABS: Glucose,Whole Blood 203 mg/dL (75-99)
[2021-09-19] MEDS: TAMSULOSIN 0.4 MG CAP.ER.24H PO SCH (18:36)
[2021-09-19 20:21] LABS: Glucose,Whole Blood 245 mg/dL (75-99)
--- NOTE | 2021-09-19 20:37 | P.PN ---
Subjective Progress Note Date: 09/19/21 Principal diagnosis: Abdominal distention 66-year-old male with a known history of COPD on home oxygen, recent lung mass on CT chest on follow up with pulmonary, persistent atrial fibrillation on anticoagulation with xarelto, sick sinus syndrome with history of permanent pacemaker placement, coronary artery disease history of stent placement to circumflex, diabetes type 2 insulin-dependent, hypertension, hyperlipidemia, chronic CHF with diastolic dysfunction and previous history of smoking and alcohol use presents to ER with complaints of Abdominal distention. Patient do es have a history of liver cirrhosis due to previous history of alcohol abuse. Patient had previous admissions with acute on chronic CHF with diastolic dysfunction and also history of lung nodules. Patient is supposed to get biopsy of the lung nodule. Patient had previous history of right-sided pleural effusion and thoracentesis. Patient was recently discharged in the hospital on 08/19/2021. Patient had PET scan on 08/20/2021 showed high stage neoplasm with cirrhotic liver-multiple hypermetabolic dialysis could reflect metastatic disease. Abnormal left lung mass with thoracic adenopathy. Chest x-ray showed patchy bilateral infiltrate correlate for multifocal pneumonia. Neoplasm not excluded. CT of the abdomen pelvis showed ascites, small bilateral pleural effusions, multiple nodules within the visualized lung bases. Clinical consideration for colitis in the right upper quadrant is recommended. Laboratory data showed WBC 13.6 hemoglobin 12.6 and platelets 152 Sodium 130 potassium 3.9 chloride 93 BUN 64 and creatinine 1.9 Blood sugar is 314 Calcium 8.0 09/11/2021 Patient is seen and evaluated in follow-up on the selective care unit. He is currently resting comfortably in bed. No acute distress. He did undergo a liver biopsy by interventional radiology yesterday; continues to complain of discomfort at biopsy site. Pathology pending. he is currently maintaining O2 saturation in the 90s on room air. White count 20.0. Hemoglobin 14.2. Sodium 134. Potassium 4.1. Creatinine 3.08. Glucose 220. AST 393. ALT 426. He is continued on DuoNeb inhalations, Symbicort, oral diuretics. 09/12/2021 Patient is seen and evaluated in room at bedside and discussed with nursing staff in great detail; according to RN, patient has been quite weak and depressed and wanting to stay in chair; I did have a long discussion with patience wong regarding further testing and goals of care; patient does state that he feels depressed and hopeless due to recent diagnosis; psych consultation was advised and patient is agreeable to try Patient has undergone liver biopsy and results are pending; liver enzymes are continuing to trend up; hepatitis panel is nonreactive; WBC is trending up also; ascites fluid culture was unremarkable; ID is consulted and recommending to obtain stool for C. diff and culture; patient has been empirically started on antibiotics in form of Azactam and Flagyl; we will continue to monitor and further recommendations forthcoming 09/13/2021 Patient is seen and evaluated resting comfortably in bed; is at bedside and has numerous questions which were answered to her satisfaction Psych evaluation is discussed with and she is agreeable Patient remains quite depressed and has been evaluated by psychiatry but patient refuses any; medications at this time supportive psychotherapy was given We await results for liver biopsy for any further evaluation and recommendations 09/14/2021 Patient is seen and evaluated in room with at bedside, patient's liver biopsy results are still pending; patient denies any specific complaints Vital signs are reviewed with temperature 90.8, pulse 95, respiration 18 and blood pressure 131/66; patient remains on 2 L of oxygen Nephrology is following, Lasix is currently on hold, patient continues on Aldactone. labs have been reviewed, creatinine is slightly improved, at 3.09 down from 3.201 yesterday's labs, BUN is 111, sodium is 136, potassium is 3.4, chloride is 97, his pro calcitonin level is elevated at 19.7, she is on aztreonam for antibiotic coverage. His ascites fluid ulcer was negative, blood and stool cultures have also been sent, so far showing no growth. 09/15/2021 Patient is seen and evaluated in follow-up with nursing staff at bedside. Currently sitting up at the site of his bed. Complaints of 2 episodes of diarrhea since morning; per nursing staff stool wasn't foul-smelling; likely related to antibiotic use. Awake and alert in no acute distress; continues to complain of abdominal distention and discomfort. Liver biopsy pathology results still pending. Vital signs are stable with temperature 97.7, pulse 62, respiration 18 and blood pressure 122/63, O2 saturation 98% Sodium 134. Potassium 3.3. BUN 118. Creatinine 2.88. Glucose 364. Calcium 7.9. Patient remains on Symbicort, DuoNeb inhalations. Antibiotics in the form of aztreonam, Flagyl. Nephrology on board for acute renal injury likely related to diuresis and slowly improving. IV hydration with normal saline at a rate of 50 mL an hour; BUN/creatinine disproportionately elevated; no evidence of GI bleed ID is recommending to continue current dose of Azactam and Flagyl started empirically for possible abdominal source of infection 09/16/2021 Patient was seen and evaluated with the nursing staff. Patient was confirmed to have metastatic lung cancer due to the positive liver biopsy. The patient had a lobulated mass around 4 x 3 cm in the left midlung and left hilar and suprahilar hilar metabolic lymphadenopathy along with hepatitic metastases which was confirmed by a fine-needle aspiration. The patient also suffers from bilateral pleural effusion and ascites. The ascitic fluid came back negative for malignancy. Patient is fatigued, low energy, and has a low appetite. Patient is afebrile. Quite fatigued and debilitated and has low energy and appetite and continues to lose weight. He is afebrile. 09/17/2021 Patient was seen and evaluated at bedside. Patient's liver biopsy came back positive for metastatic lung cancer. Patient appear to be fatigued but is respirating normally. Patient complains of mild hemoptysis which may be from the nosebleed developing from the continuous oxygen. Patient is off anticoagulation, off aspirin, and even the Xarelto. Patient's liver biopsy is positive for small cell lung carcinoma which has metastasized to the liver. Patient and family are waiting for Dr. Alvarez, medical oncologist, to discuss the prognosis, treatment, etc. Patient is dyspneic at rest, but is afebrile. Patient is continued on diuretics with Lasix and also on empiric antibiotics. Ascitic fluid cultures are not showing any abnormal growth. Patient's pulse ox is 91%. Patient has been removed from supplemental oxygen to prevent worsening of the nosebleed. Lung sounds reveal some bibasilar crackles. Yesterday's lab results showed worsening of renal function for which nephrology will follow up and follow up lab results are pending for today. 09/18/2021 Patient is seen and evaluated with family members at site including patient's and 2 children; patient is quite lethargic and resting in bed; had episodes of V. tach earlier this morning and has been placed on amiodarone infusion Vital signs at this time temperature 97.5, pulse 88, respiration 18 and blood pressure 12/20/1956 Labs are reviewed WBC 14.5, hemoglobin 13.20 count of 91; chemical profile sodium 135, potassium 4.1, BUN/creatinine of 154/3.7583 Nephrology on 4 for oliguric acute renal failure with possibility of hepatorenal syndrome; nephro recommending to stop IV fluids and Lasix; patient has received 100 g of albumin; midodrine and octreotide is added Detailed discussion with patient and family at bedside; all of family's questions were answered in great detail; patient and family inclining towards possible hospice care; CODE STATUS was discussed with patient and family also; patient doesn't want CPR or shock or ventilation; states he is okay with medications We will continue with current management at this time and consult hospice; patient and family will talk to hospice team and make decision regarding course of treatment 09/19/2021 Patient is seen and evaluated in the room with at bedside; family has decided to proceed with comfort care with plans to meet with hospice tomorrow morning; is planning to take patient home with hospice Objective - Vital Signs Vital signs: Vital Signs Temp 97.5 F L 09/19/21 08:05 Pulse 90 09/19/21 15:41 Resp 22 09/19/21 08:05 BP 110/66 09/19/21 12:00 Pulse Ox 92 L 09/19/21 08:05 Intake & Output 09/18/21 09/19/21 09/19/21 18:59 06:59 18:59 Intake Total 140 Output Total 250 500 Balance -110 -500 Weight 76 kg Intake: Oral 140 Output: Urine 250 500 Other: Voiding Method Indwelling Catheter Indwelling Catheter Indwelling Catheter - Exam PHYSICAL EXAMINATION: GENERAL: The patient is alert and oriented x3, not in any acute distress. Well developed, well nourished. HEENT: Pupils are round and equally reacting to light. EOMI. No scleral icterus. No conjunctival pallor. Normocephalic, atraumatic. No pharyngeal erythema. No thyromegaly. CARDIOVASCULAR: S1 and S2 present. No murmurs, rubs, or gallops. PULMONARY: Chest is clear to auscultation, no wheezing or crackles. ABDOMEN: Soft, nontender, nondistended, normoactive bowel sounds. No palpable organomegaly. MUSCULOSKELETAL: No joint swelling or deformity. EXTREMITIES: No cyanosis, clubbing, or pedal edema. NEUROLOGICAL: Gross neurological examination did not reveal any focal deficits. SKIN: No rashes. - Labs CBC & Chem 7: 09/18/21 07:01 09/18/21 07:01 Labs: Abnormal Lab Results - Last 24 Hours (Table) 09/18/21 09/18/21 09/18/21 Range/Units 16:38 19:53 22:06 POC Glucose (mg/dL) 313 H 175 H (75-99) mg/dL Urine Protein Trace H (Negative) Urine Blood Moderate H (Negative) Urine Bilirubin 2+ H (Negative) Ur Leukocyte Esterase Large H (Negative) Urine RBC 75 H (0-5) /hpf Urine WBC 98 H (0-5) /hpf Urine WBC Clumps Few H (None) /hpf Amorphous Sediment Few H (None) /hpf Urine Bacteria Occasional H (None) /hpf Hyaline Casts 623 H (0-2) /lpf Urine Mucus Rare H (None) /hpf Ur Random Sodium (40-220) mmol/L 09/18/21 09/19/21 09/19/21 Range/Units 22:06 05:50 11:38 POC Glucose (mg/dL) 132 H 125 H (75-99) mg/dL Urine Protein (Negative) Urine Blood (Negative) Urine Bilirubin (Negative) Ur Leukocyte Esterase (Negative) Urine RBC (0-5) /hpf Urine WBC (0-5) /hpf Urine WBC Clumps (None) /hpf Amorphous Sediment (None) /hpf Urine Bacteria (None) /hpf Hyaline Casts (0-2) /lpf Urine Mucus (None) /hpf Ur Random Sodium <20 L (40-220) mmol/L 09/19/21 09/19/21 Range/Units 13:18 14:05 POC Glucose (mg/dL) 127 H 131 H (75-99) mg/dL Urine Protein (Negative) Urine Blood (Negative) Urine Bilirubin (Negative) Ur Leukocyte Esterase (Negative) Urine RBC (0-5) /hpf Urine WBC (0-5) /hpf Urine WBC Clumps (None) /hpf Amorphous Sediment (None) /hpf Urine Bacteria (None) /hpf Hyaline Casts (0-2) /lpf Urine Mucus (None) /hpf Ur Random Sodium (40-220) mmol/L Microbiology - Last 24 Hours (Table) 09/12/21 12:34 Blood Culture - Final Blood No Growth after 144 hours Assessment and Plan Assessment: Abdominal distention due to ascites status post paracentesis with 2.2 L fluid removal Alcoholic liver cirrhosis suspicious multiple liver metastatic lesions as per Recent history of PET scan on 08/20/21 . chronic CHF with diastolic dysfunction Recently diagnosed lung nodules with abdominal CT chest.. Supposed to follow with pulmonary clinic. s/p outpatient PET scan on 08/20/2021 Hyperglycemia with uncontrolled diabetes type 2 Elevated troponin level unlikely ACS. Hyponatremia likely hypervolemic. Possible SIADH cannot be excluded. Bilateral small pleural effusions with recent history of right thoracentesis Chronic postnasal drip Persistent atrial fibrillation on anticoagulation with xarelto. Was on hold for persistent nosebleeds. Cardiology recommends to start back on xarelto. Sick sinus syndrome with history of permanent pacemaker placement coronary artery disease history of stent placement to circumflex Hypertension Hyperlipidemia Chronic hypoxic respiratory failure secondary to COPD Previous history of smoking History of liver cirrhosis DVT prophylaxis Full code Plan: Patient is status post paracentesis with 2.2 L fluid removal. Cell count and differential showed no evidence of SBP. Follow-up fluid culture and cytology report. Replace electrolytes and patient will be started back on Lasix and spir onolactone. Monitor renal function. Continue with home medications and follow- up closely. Pulmonary and cardiology was consulted. Prognosis guarded at this time.
[2021-09-19] MEDS: MIRTAZAPINE 15 MG TAB PO SCH (21:06)
[2021-09-19] MEDS: MONTELUKAST 10 MG TAB PO SCH (21:09)
[2021-09-19] MEDS: ZOLPIDEM 5 MG TAB PO PRN (21:16)
[2021-09-19 22:10] VITALS: BP 135/65; TEMP 97.6
[2021-09-20 04:14] VITALS: PULSE 74
[2021-09-20] MEDS: IPRATROPIUM-ALBUTEROL 3 ML NEB INHALATION SCH ×2 (08:52→12:12)
[2021-09-20] MEDS: SYMBICORT 160-4.5 MCG INHALER INHALATION SCH (08:52)
[2021-09-20] MEDS: MIDODRINE 5 MG TAB PO SCH ×2 (08:53→12:51)
[2021-09-20] MEDS: METOPROLOL TARTRATE 50 MG TAB PO SCH (08:53)
[2021-09-20] MEDS: INSULIN ASPART (NovoLOG) 100 UNIT/ML VIAL SQ SCH ×2 (08:53→12:45)
[2021-09-20] MEDS: PANTOPRAZOLE 40 MG TABLET PO SCH (08:53)
[2021-09-20] MEDS: FLECAINIDE 50 MG TAB PO SCH (08:54)
[2021-09-20] MEDS: allopurinoL 100 MG TAB PO SCH (08:54)
[2021-09-20] MEDS: ISOSORBIDE MONONITRATE ER 30 MG TAB.ER.24H PO SCH (08:54)
[2021-09-20 11:40] LABS: Glucose,Whole Blood 280 mg/dL (75-99)
[2021-09-20 12:43] VITALS: RESP 20
[2021-09-20] MEDS: OCTREOTIDE 100 MCG/ML INJ IVP SCH (12:45)
== END 2021-09-20 14:38 | disposition hospice, inpatient (51) | DRG 432 ==
LOC: EC 11:52 → 3SCARD 18:14
PROVIDERS: ADMIT Hospitalist; ATTEND Hospitalist
PROC: 0W9G3ZX Drainage of Peritoneal Cavity, Percutaneous Approach, Diagnostic (ICD-10-PCS; principal; 2021-09-07)
PROC: 0FB23ZX Excision of Left Lobe Liver, Percutaneous Approach, Diagnostic (ICD-10-PCS; 2021-09-10)
DX: K70.31 Alcoholic cirrhosis of liver with ascites (principal); I50.33 Acute on chronic diastolic (congestive) heart failure; N17.0 Acute kidney failure with tubular necrosis; I47.2 Ventricular tachycardia; J96.11 Chronic respiratory failure with hypoxia; C77.1 Secondary and unspecified malignant neoplasm of intrathoracic lymph nodes; K76.6 Portal hypertension; I13.0 Hypertensive heart and chronic kidney disease with heart failure and stage 1 through stage 4 chronic kidney disease, or unspecified chronic kidney disease; E87.2 Acidosis; C79.51 Secondary malignant neoplasm of bone; N18.4 Chronic kidney disease, stage 4 (severe); C78.7 Secondary malignant neoplasm of liver and intrahepatic bile duct; C34.92 Malignant neoplasm of unspecified part of left bronchus or lung; E87.1 Hypo-osmolality and hyponatremia; I48.19 Other persistent atrial fibrillation; I48.4 Atypical atrial flutter; R04.2 Hemoptysis; N30.00 Acute cystitis without hematuria; I49.5 Sick sinus syndrome; E11.22 Type 2 diabetes mellitus with diabetic chronic kidney disease; E11.40 Type 2 diabetes mellitus with diabetic neuropathy, unspecified; E11.51 Type 2 diabetes mellitus with diabetic peripheral angiopathy without gangrene; E11.65 Type 2 diabetes mellitus with hyperglycemia; J44.9 Chronic obstructive pulmonary disease, unspecified; Z79.4 Long term (current) use of insulin; Z51.5 Encounter for palliative care; Z66 Do not resuscitate; Z20.822 Contact with and (suspected) exposure to COVID-19; L13.0 Dermatitis herpetiformis; E87.6 Hypokalemia; K90.0 Celiac disease; E78.5 Hyperlipidemia, unspecified; N40.1 Benign prostatic hyperplasia with lower urinary tract symptoms; R33.8 Other retention of urine; I44.7 Left bundle-branch block, unspecified; D63.0 Anemia in neoplastic disease; I08.3 Combined rheumatic disorders of mitral, aortic and tricuspid valves; I25.10 Atherosclerotic heart disease of native coronary artery without angina pectoris; F10.11 Alcohol abuse, in remission; K21.9 Gastro-esophageal reflux disease without esophagitis; K29.70 Gastritis, unspecified, without bleeding; T50.2X5A Adverse effect of carbonic-anhydrase inhibitors, benzothiadiazides and other diuretics, initial encounter; R77.8 Other specified abnormalities of plasma proteins; M54.5 Low back pain; G89.29 Other chronic pain; I25.2 Old myocardial infarction; F32.9 Major depressive disorder, single episode, unspecified; M19.90 Unspecified osteoarthritis, unspecified site; J32.9 Chronic sinusitis, unspecified; I83.90 Asymptomatic varicose veins of unspecified lower extremity; Z99.81 Dependence on supplemental oxygen; Z79.82 Long term (current) use of aspirin; Z79.51 Long term (current) use of inhaled steroids; Z79.899 Other long term (current) drug therapy; Z77.090 Contact with and (suspected) exposure to asbestos; Z95.0 Presence of cardiac pacemaker; Z95.5 Presence of coronary angioplasty implant and graft; Z96.1 Presence of intraocular lens; Z98.42 Cataract extraction status, left eye; Z98.41 Cataract extraction status, right eye; Z90.49 Acquired absence of other specified parts of digestive tract; Z87.19 Personal history of other diseases of the digestive system; Z90.89 Acquired absence of other organs; Z87.891 Personal history of nicotine dependence; Z86.010 Personal history of colon polyps; Z98.890 Other specified postprocedural states; Z88.1 Allergy status to other antibiotic agents; Z88.0 Allergy status to penicillin; Z88.2 Allergy status to sulfonamides; Z88.8 Allergy status to other drugs, medicaments and biological substances; Z83.3 Family history of diabetes mellitus; Z82.49 Family history of ischemic heart disease and other diseases of the circulatory system
CPT/HCPCS: 36415; 47000; 49083; 71046; 74176; 77012; 80048; 80053; 80074; 81001; 81003; 82042; 82105; 82570; 82945; 83605; 83615; 83735; 83880; 84132; 84145; 84157; 84300; 84484; 84540; 85025; 85610; 85730; 86140; 87040; 87045; 87046; 87070; 87075; 87205; 87324; 87635; 88108; 88305; 88307; 88341; 88342; 89050; 93005; 93970; 94640; 94760; 99285

== ENCOUNTER 2021-09-20 11:03 | Inpatient (IN) | payer MEDICAID ==
[2021-09-20] MEDS ORDERED: GLYCOPYRROLATE 0.2 MG/ML 2 ML VIAL IVP PRN (11:07)
[2021-09-20] MEDS ORDERED: ONDANSETRON 4 MG/2 ML VIAL IVP PRN (11:07)
[2021-09-20] MEDS ORDERED: MORPHINE SULFATE 2 MG/ML SYRINGE IV PRN (11:07)
[2021-09-20] MEDS ORDERED: ATROPINE OPHTH SOLN 1% 5ML BTL SUBLINGUAL PRN (11:07)
[2021-09-20] MEDS ORDERED: ACETAMINOPHEN SUPPOSITORY 650 MG SUPP RECTAL PRN (11:07)
[2021-09-20] MEDS ORDERED: LORazepam 2 MG/ML INJ IV PRN (11:07)
[2021-09-20] MEDS ORDERED: HALOPERIDOL LACTATE 5 MG/ML 1 ML VIAL IM PRN (11:07)
[2021-09-20] MEDS ORDERED: MORPHINE SULFATE (100 MG/2 ML) 100 MG in SODIUM CHLORIDE 0.9% 100 ML IV SCH (11:15)
--- NOTE | 2021-09-20 16:24 | P.HPIM ---
History of Present Illness H&P Date: 09/20/21 This is a 66-year-old male who came into the hospital with a known history of COPD on home oxygen, recent lung mass on CT chest on follow-up with pulmonary, persistent atrial fibrillation on intake regulation was brought toe, sick sinus syndrome with history of permanent pacemaker placement, coronary artery disease history of stent placement to circumflex, diabetes type 2 insulin-dependent, hypertension, chronic CHF with diastolic dysfunction and previous history of smoking and alcohol use. He presented to the ER with complaints of abdominal distention. Patient does have a history of liver cirrhosis due to previous history of alcohol abuse. Previous admissions with acute on chronic CHF with diastolic dysfunction and also history of lung nodules. Patient was supposed to get a biopsy of a lung nodule. He had a previous right-sided pleural effusion with thoracentesis. Patient was recently discharged in the hospital on 08/19/2021 and had a PET scan completed on 08/20/2021 which showed high stage neoplasm with cirrhotic liver multiple hypermetabolic dialysis could reflect metastatic disease. There was abnormal left lung mass a thoracic adenopathy. Chest x-ray at admission showed patchy bilateral infiltrate correlate for multifocal pneumonia, neoplasm not excluded. CT of the abdomen pelvis showed ascites, small bilateral pleural effusions, multiple nodules within the visualized lung bases. Echo consideration for colitis in the right upper quadrant is recommended. Labs on admission included blood cell count of 13.6, hemoglobin 12.6 and platelets of 152. Sodium was 1:30, potassium 3.9, chloride 93, BUN 64 and creatinine 1.9. Blood sugars 214, calcium is 8. Liver biopsy confirmed metastatic lung cancer on 09/17/2021. In addition there was a lobulated mass around 4 x 3 cm in the left midlung and left hilar and suprahilar metabolic lymphadenopathy along with hepatic metastases psoriasis is confirmed by a fine-needle aspiration. The patient also has bilateral pleural effusion and ascites. The ascitic fluid is negative for malignancy. Patient was removed from supplemental oxygenation September 17 due to a nosebleed with hemoptysis. There are bibasilar crackles and worsening renal function. Patient had episodes of V. tach on the morning of September 18 and was placed on an amiodarone infusion. BUN of 154 and creatinine of 3.75, patient is now oliguric, there is possibility of hepatorenal syndrome, nephrology stopped IV fluids and Lasix and give patient 100 g of albumin as well as midodrine and octreotide. Prognosis was discussed from the oncology team patient is family was undecided initially on whether to pursue treatment or not. There was concern for progressive liver decompensation as the bilirubin is slowly increasing and liver enzymes are decreasing. There is significant liver involvement with aggressive tumor as well as comprimise from cirrhosis. On 09/18/2021 patient was changed to a no code. He was okay with being treated with medications. Hospice was contacted. During this admission patient was declining, feeling more fatigued, decrease in his appetite. Yesterday on 09/19/2021 patient and family decided on comfort care and that with hospice this morning. Patient was opened to inpatient hospice on a morphine drip that was started this morning at 9 AM. REVIEW OF SYSTEMS: Unable to obtain the time of examination as patient is on a morphine drip and is minimally responsive. PHYSICAL EXAMINATION: GENERAL: The patient is alert and oriented x3, not in any acute distress. Well developed, well nourished. HEENT: Pupils are round and equally reacting to light. EOMI. No scleral icterus. No conjunctival pallor. Normocephalic, atraumatic CARDIOVASCULAR: S1 and S2 present. No murmurs, rubs, or gallops. PULMONARY: Chest is clear to auscultation, no wheezing or crackles. ABDOMEN: Soft, nontender, distended, normoactive bowel sounds. No palpable organomegaly. MUSCULOSKELETAL: No joint swelling or deformity. EXTREMITIES: No cyanosis, clubbing, or pedal edema. NEUROLOGICAL: Gross neurological examination did not reveal any focal deficits. SKIN: No rashes. Assessment and plan Abdominal distention due to ascites status post paracentesis with 2.2 L fluid removal Alcoholic liver cirrhosis suspicious multiple liver metastatic lesions as per Recent history of PET scan on 08/20/21 . chronic CHF with diastolic dysfunction Recently diagnosed lung nodules with abdominal CT chest.. Supposed to follow with pulmonary clinic. s/p outpatient PET scan on 08/20/2021 Hyperglycemia with uncontrolled diabetes type 2 Elevated troponin level unlikely ACS. Hyponatremia likely hypervolemic. Possible SIADH cannot be excluded. Bilateral small pleural effusions with recent history of right thoracentesis Chronic postnasal drip Persistent atrial fibrillation on anticoagulation with xarelto. Was on hold for persistent nosebleeds. Cardiology recommends to start back on xarelto. Sick sinus syndrome with history of permanent pacemaker placement coronary artery disease history of stent placement to circumflex Hypertension Hyperlipidemia Chronic hypoxic respiratory failure secondary to COPD Previous history of smoking History of liver cirrhosis DVT prophylaxis No code Plan Patient was open to inpatient hospice today. He is on a morphine drip. Past Medical History Past Medical History: Atrial Fibrillation, Coronary Artery Disease (CAD), Chest Pain / Angina, Heart Failure, COPD, Diabetes Mellitus, GERD/Reflux, Hyperlipidemia, Hypertension, Liver Disease, Myocardial Infarction ([place]), Prostate Disorder, Renal Disease, Skin Disorder, Vascular Disorder Additional Past Medical History / Comment(s): history ofAfib with RVR, tachybrady syndrome with pacemaker, IDDM type II, neuropathy bilateral feet, stage III chronic kidney disease, chronic CHF, R pleural effusion, liver cirrhosis, BPH, DJD, herniated discs low back, chronic low back pain, varicose veins , anemia with hx of iron infusions., past asbestos exposure, celiac disease, dermatitis herpetiformis. Last Myocardial Infarction Date:: 06/2018 History of Any Multi-Drug Resistant Organisms: None Reported Past Surgical History: Ablation, Cardiac Ablation, Cholecystectomy, Heart Catheterization With Stent, Pacemaker, Tonsillectomy Additional Past Surgical History / Comment(s): PCI with STENTS x 3, bilateral cataracts removed with lens implants, colonoscopy, [employer] pacemaker Past Anesthesia/Blood Transfusion Reactions: No Reported Reaction Date of Last Stent Placement:: 2017 Type of Cardiac Device: Permanent Pacemaker Device Placement Date:: 02/02/19 Past Psychological History: No Psychological Hx Reported Additional Psychological History / Comment(s): Pt resides with his spouse. He is independent. He is retired from [employer]) Smoking Status: Former smoker Past Alcohol Use History: None Reported Additional Past Alcohol Use History / Comment(s): Started smoking in 1967, a half pack a day. Quit smoking January 2019. Pt states he drank heavy in the past but since 2008 rarely. Past Drug Use History: None Reported - Past Family History Mother Family Medical History: Diabetes Mellitus Father Family Medical History: Myocardial Infarction ([place]) Additional Family Medical History / Comment(s): Father had a WI in his 70s. Brother(s) Family Medical History: Myocardial Infarction ([place]) Additional Family Medical History / Comment(s): Brother had a WI in his 50s. Medications and Allergies Home Medications Medication Instructions Recorded Confirmed Type Fluticasone Nasal [place] [Flonase 1 spr EA NOSTRIL DAILY 05/12/16 09/06/21 History Nasal [place]] Isosorbide Mononitrate ER [Imdur] 30 mg PO DAILY 01/16/19 09/06/21 History Pantoprazole [Protonix] 40 mg PO DAILY 01/16/19 09/06/21 History Montelukast [Singulair] 10 mg PO HS 02/12/19 09/06/21 History Loratadine [Claritin] 10 mg PO DAILY 03/28/19 09/06/21 History Metoprolol Tartrate [Lopressor] 50 mg PO BID 03/28/19 09/06/21 History Vitamin B Complex 1 cap PO DAILY 06/24/19 09/06/21 History allopurinoL [Zyloprim] 100 mg PO DAILY 06/24/19 09/06/21 History Ubidecarenone [Co Q-10] 200 mg PO DAILY 08/01/19 09/06/21 History Pravastatin Sodium [Pravachol] 20 mg PO DAILY 11/11/19 09/06/21 History Albuterol Sulfate [Ventolin HFA] 1 - 2 puff INHALATION RT-Q4H PRN 07/25/21 09/06/21 History Fluticasone/Salmeterol 1 puff INHALATION RT-BID 07/25/21 09/06/21 History [Fluticasone-Salmeterol 232-14] Folic Acid 0.4 mg PO DAILY 07/25/21 09/06/21 History dilTIAZem HCL 90 mg PO BID 07/25/21 09/06/21 History hydrALAZINE HCL [Apresoline] 100 mg PO TID 07/25/21 09/06/21 History Nitroglycerin Sl Tabs [Nitrostat] 0.4 mg SL Q5M PRN 07/26/21 09/06/21 History Ipratropium-Albuterol Nebulize 3 ml INHALATION RT-QID 30 Days #90 07/30/21 09/06/21 Rx [Duoneb 0.5 mg-3 mg/3 ml Soln] ml Aspirin 81 mg PO DAILY #30 08/09/21 09/09/21 Rx Sodium Chloride 0.65% Nasal [Deep 2 spray NASAL QID PRN #7 ml 08/09/21 09/06/21 Rx Sea (Saline)] Spironolactone [Aldactone] 12.5 mg PO DAILY #30 tab 08/09/21 09/06/21 Rx Flecainide Acetate 100 mg PO BID 08/18/21 09/06/21 History Furosemide [Lasix] 40 mg PO DAILY@1600 #30 tab 08/19/21 09/06/21 Rx Cholecalciferol (Vitamin D3) 75 mcg PO DAILY 08/30/21 09/06/21 History [Vitamin D3 (3000 Iu)] Furosemide [Lasix] 80 mg PO DAILY 09/06/21 09/06/21 History Insulin Detemir [Levemir Flextouch 48 units SQ HS 09/06/21 09/06/21 History Pen] Insulin Lispro [humaLOG] See Protocol SQ AC-TID 09/06/21 09/06/21 History Iron 27mg 1 tab PO DAILY 09/06/21 09/06/21 History Magnesium Oxide [Mag-Ox] 250 mg PO DAILY 09/06/21 09/06/21 History Zolpidem [Ambien] 5 mg PO HS PRN 09/06/21 09/06/21 History Allergies Allergy/AdvReac Type Severity Reaction Status Date / Time amlodipine Allergy Swelling Verified 09/06/21 14:44 amoxicillin Allergy Anaphylaxis Verified 09/06/21 14:44 cephalexin monohydrate Allergy Rash/Hives Verified 09/06/21 14:44 [From Keflex] clindamycin Allergy Rash/Hives Verified 09/06/21 14:44 Penicillins Allergy Rash/Hives Verified 09/06/21 14:44 Sulfa (Sulfonamide Allergy Anaphylaxis Verified 09/06/21 14:44 Antibiotics) sulfamethoxazole Allergy Anaphylaxis Verified 09/06/21 14:44 [From Bactrim] trimethoprim [From Bactrim] Allergy Anaphylaxis Verified 09/06/21 14:44 carvedilol AdvReac "MAKES ME Verified 09/06/21 14:44 JERILYN" Physical Exam Vitals: Intake and Output 09/20/21 09/20/21 09/20/21 06:59 14:59 22:59 Other: Weight 101 kg
[2021-09-20 19:56] VITALS: RESP 13
--- NOTE | 2021-09-21 15:16 | P.DS ---
Providers Date of admission: 09/20/21 14:40 Attending physician: Pamela Arthur Primary care physician: Ivy Valentine Hospital Course: Final diagnoses cause of Small cell lung cancer with metastatic disease Abdominal distention due to ascites status post paracentesis with 2.2 L fluid removal Alcoholic liver cirrhosis suspicious multiple liver metastatic lesions as per Recent history of PET scan on 08/20/21 chronic CHF with diastolic dysfunction Recently diagnosed lung nodules with abdominal CT chest Hyperglycemia with uncontrolled diabetes type 2 Elevated troponin level unlikely ACS. Hyponatremia likely hypervolemic. Possible SIADH cannot be excluded. Bilateral small pleural effusions with recent history of right thoracentesis Chronic postnasal drip Persistent atrial fibrillation on anticoagulation with xarelto. Sick sinus syndrome with history of permanent pacemaker placement coronary artery disease history of stent placement to circumflex Hypertension Hyperlipidemia Chronic hypoxic respiratory failure secondary to COPD Previous history of smoking Patient was open to inpatient hospice yesterday 09/20/2021 and was placed on a morphine drip. Patient did yesterday afternoon around 1800. Hospital course This is a 66-year-old male who presented to the hospital with complaints of abdominal distention. He does have a history of known liver cirrhosis and had recently undergone a PET scan on August 20 that showed high stage neoplasm with cirrhotic liver with multiple hypermetabolic masses could reflect metatastaic disease. Abnormal lung mass with thoracic adenopathy as detailed in full PET scan report. Patient was evaluated by oncology who discussed prognosis and management options with the patient. Patient was undecided about whether to pursue active treatment or not. There was significant concern for progressive decompensation of his liver due to metastatic disease as well as underlying chronic alcoholic liver cirrhosis. Patient and his decided to make the patient a DO NOT RESUSCITATE and proceeded with comfort care and hospice measures while inpatient. The patient comfortably while on a morphine infusion. Thank you kindly for allowing us to participate in the care of this patient. Plan - Discharge Summary New Discharge Prescriptions: No Action Fluticasone Nasal [place] [Flonase Nasal [place]] 1 spr EA NOSTRIL DAILY Isosorbide Mononitrate ER [Imdur] 30 mg PO DAILY Pantoprazole [Protonix] 40 mg PO DAILY Montelukast [Singulair] 10 mg PO HS Metoprolol Tartrate [Lopressor] 50 mg PO BID Loratadine [Claritin] 10 mg PO DAILY allopurinoL [Zyloprim] 100 mg PO DAILY Vitamin B Complex 1 cap PO DAILY Ubidecarenone [Co Q-10] 200 mg PO DAILY Pravastatin Sodium [Pravachol] 20 mg PO DAILY Albuterol Sulfate [Ventolin HFA] 1 - 2 puff INHALATION RT-Q4H PRN PRN Reason: Shortness Of Breath hydrALAZINE HCL [Apresoline] 100 mg PO TID Nitroglycerin Sl Tabs [Nitrostat] 0.4 mg SL Q5M PRN PRN Reason: Chest Pain Ipratropium-Albuterol Nebulize [Duoneb 0.5 mg-3 mg/3 ml Soln] 3 ml INHALATION RT-QID 30 Days #90 ml Spironolactone [Aldactone] 12.5 mg PO DAILY #30 tab Furosemide [Lasix] 40 mg PO DAILY@1600 #30 tab Magnesium Oxide [Mag-Ox] 250 mg PO DAILY Insulin Detemir [Levemir Flextouch Pen] 48 units SQ HS Furosemide [Lasix] 80 mg PO DAILY Zolpidem [Ambien] 5 mg PO HS PRN PRN Reason: Insomnia Folic Acid 0.4 mg PO DAILY Fluticasone/Salmeterol [Fluticasone-Salmeterol 232-14] 1 puff INHALATION RT- BID dilTIAZem HCL 90 mg PO BID Aspirin 81 mg PO DAILY #30 Sodium Chloride 0.65% Nasal [Deep Sea (Saline)] 2 spray NASAL QID PRN #7 ml PRN Reason: Dry Nasal Passages Flecainide Acetate 100 mg PO BID Cholecalciferol (Vitamin D3) [Vitamin D3 (3000 Iu)] 75 mcg PO DAILY Iron 27mg 1 tab PO DAILY Insulin Lispro [humaLOG] See Protocol SQ AC-TID Discharge Medication List Fluticasone Nasal [place] [Flonase Nasal [place]] 1 spr EA NOSTRIL DAILY 05/12/16 [History] Isosorbide Mononitrate ER [Imdur] 30 mg PO DAILY 01/16/19 [History] Pantoprazole [Protonix] 40 mg PO DAILY 01/16/19 [History] Montelukast [Singulair] 10 mg PO HS 02/12/19 [History] Loratadine [Claritin] 10 mg PO DAILY 03/28/19 [History] Metoprolol Tartrate [Lopressor] 50 mg PO BID 03/28/19 [History] Vitamin B Complex 1 cap PO DAILY 06/24/19 [History] allopurinoL [Zyloprim] 100 mg PO DAILY 06/24/19 [History] Ubidecarenone [Co Q-10] 200 mg PO DAILY 08/01/19 [History] Pravastatin Sodium [Pravachol] 20 mg PO DAILY 11/11/19 [History] Albuterol Sulfate [Ventolin HFA] 1 - 2 puff INHALATION RT-Q4H PRN 07/25/21 [History] Fluticasone/Salmeterol [Fluticasone-Salmeterol 232-14] 1 puff INHALATION RT-BID 07/25/21 [History] Folic Acid 0.4 mg PO DAILY 07/25/21 [History] dilTIAZem HCL 90 mg PO BID 07/25/21 [History] hydrALAZINE HCL [Apresoline] 100 mg PO TID 07/25/21 [History] Nitroglycerin Sl Tabs [Nitrostat] 0.4 mg SL Q5M PRN 07/26/21 [History] Ipratropium-Albuterol Nebulize [Duoneb 0.5 mg-3 mg/3 ml Soln] 3 ml INHALATION RT-QID 30 Days #90 ml 07/30/21 [Rx] Aspirin 81 mg PO DAILY #30 08/09/21 [Rx] Sodium Chloride 0.65% Nasal [Deep [place] (Saline)] 2 spray NASAL QID PRN #7 ml 08/09/21 [Rx] Spironolactone [Aldactone] 12.5 mg PO DAILY #30 tab 08/09/21 [Rx] Flecainide Acetate 100 mg PO BID 08/18/21 [History] Furosemide [Lasix] 40 mg PO DAILY@1600 #30 tab 08/19/21 [Rx] Cholecalciferol (Vitamin D3) [Vitamin D3 (3000 Iu)] 75 mcg PO DAILY 08/30/21 [History] Furosemide [Lasix] 80 mg PO DAILY 09/06/21 [History] Insulin Detemir [Levemir Flextouch Pen] 48 units SQ HS 09/06/21 [History] Insulin Lispro [humaLOG] See Protocol SQ AC-TID 09/06/21 [History] Iron 27mg 1 tab PO DAILY 09/06/21 [History] Magnesium Oxide [Mag-Ox] 250 mg PO DAILY 09/06/21 [History] Zolpidem [Ambien] 5 mg PO HS PRN 09/06/21 [History] Discharge Disposition: - Preliminary Cause of Preliminary Cause of : Small cell lung cancer with metastatic disease
[2021-09-22] MEDS ORDERED: SCOPOLAMINE 1.5MG/72HR PATCH TRANSDERM SCH (17:30)
== END 2021-09-20 19:19 | disposition expired | DRG 951 ==
LOC: 3SCARD 14:40
PROVIDERS: ADMIT Hospitalist; ATTEND Hospitalist
DX: Z51.5 Encounter for palliative care (principal); K76.7 Hepatorenal syndrome; J96.11 Chronic respiratory failure with hypoxia; I13.0 Hypertensive heart and chronic kidney disease with heart failure and stage 1 through stage 4 chronic kidney disease, or unspecified chronic kidney disease; I50.32 Chronic diastolic (congestive) heart failure; C78.7 Secondary malignant neoplasm of liver and intrahepatic bile duct; E87.1 Hypo-osmolality and hyponatremia; I48.19 Other persistent atrial fibrillation; I47.2 Ventricular tachycardia; C34.90 Malignant neoplasm of unspecified part of unspecified bronchus or lung; R04.2 Hemoptysis; I49.5 Sick sinus syndrome; D63.0 Anemia in neoplastic disease; K70.31 Alcoholic cirrhosis of liver with ascites; E11.22 Type 2 diabetes mellitus with diabetic chronic kidney disease; E11.51 Type 2 diabetes mellitus with diabetic peripheral angiopathy without gangrene; E11.40 Type 2 diabetes mellitus with diabetic neuropathy, unspecified; Z99.81 Dependence on supplemental oxygen; E11.65 Type 2 diabetes mellitus with hyperglycemia; N18.30 Chronic kidney disease, stage 3 unspecified; J44.9 Chronic obstructive pulmonary disease, unspecified; Z66 Do not resuscitate; I25.10 Atherosclerotic heart disease of native coronary artery without angina pectoris; L13.0 Dermatitis herpetiformis; R77.8 Other specified abnormalities of plasma proteins; E78.5 Hyperlipidemia, unspecified; N40.0 Benign prostatic hyperplasia without lower urinary tract symptoms; K90.0 Celiac disease; R04.0 Epistaxis; I83.90 Asymptomatic varicose veins of unspecified lower extremity; K21.9 Gastro-esophageal reflux disease without esophagitis; R59.1 Generalized enlarged lymph nodes; G89.29 Other chronic pain; M54.5 Low back pain; M19.90 Unspecified osteoarthritis, unspecified site; I25.2 Old myocardial infarction; F10.11 Alcohol abuse, in remission; Z79.899 Other long term (current) drug therapy; Z87.891 Personal history of nicotine dependence; Z90.49 Acquired absence of other specified parts of digestive tract; Z95.0 Presence of cardiac pacemaker; Z77.090 Contact with and (suspected) exposure to asbestos; Z87.19 Personal history of other diseases of the digestive system; Z90.89 Acquired absence of other organs; Z98.42 Cataract extraction status, left eye; Z98.41 Cataract extraction status, right eye; Z96.1 Presence of intraocular lens; Z95.5 Presence of coronary angioplasty implant and graft; Z98.890 Other specified postprocedural states; Z88.1 Allergy status to other antibiotic agents; Z88.0 Allergy status to penicillin; Z88.2 Allergy status to sulfonamides; Z88.8 Allergy status to other drugs, medicaments and biological substances; Z83.3 Family history of diabetes mellitus; Z82.49 Family history of ischemic heart disease and other diseases of the circulatory system